=== PATIENT | male | born 1935 | race Caucasian/White ===

== ENCOUNTER 2019-06-01 12:18 | Emergency (ER) | payer OTHER ==
[2019-06-01] MEDS ORDERED: MORPHINE 4 MG/ML SYR ONE (13:33)
[2019-06-01] MEDS ORDERED: ONDANSETRON 4 MG/2 ML VIAL ONE (13:33)
--- NOTE | 2019-06-01 14:50 | RAD REPORT ---
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 No fracture is seen. Osteoporosis
--- NOTE | 2019-06-01 14:50 | RAD REPORT ---
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 No fracture is seen. Osteoporosis
[2019-06-01] MEDS ORDERED: FENTANYL CITR 100 MCG/2 ML ONE (14:59)
[2019-06-01] MEDS ORDERED: PROPOFOL 200 MG/20 ML VIAL IV ONE (14:59)
[2019-06-01] MEDS ORDERED: NA CHLORIDE 0.9% 250 ML ONE (14:59)
--- NOTE | 2019-06-01 16:26 | EDPHYS ---
Physician Documentation [facility] Name: Charlie Hart Age: 84 yrs Sex: Male : 1935 Arrival Date: 06/01/2019 Time: 12:16 Bed 2 Private MD: ED Physician Sukhjinder Negrete HPI: 06/02 11:34 This 84 yrs old Male presents to ER via EMS with complaints of Hip Injury. kdr 11:34 The patient or guardian reports decreased range of motion, deformity, an injury, pain, kdr possible dislocation. that occurred at home, sustained from Bending over and felt a pop the left lower extremity is shortened, the left leg is internally rotated, The patient is not able to ambulate. Patient is not able to bear weight. The complaints affect the left hip. Onset: The symptoms/episode began/occurred acutely, suddenly, just prior to arrival. Modifying factors: The symptoms are alleviated by nothing, remaining still, the symptoms are aggravated by any movement, extension, external rotation. Associated signs and symptoms: Loss of consciousness: the patient experienced no loss of consciousness, Pertinent positives: None. Pertinent negatives: abdominal pain, chest pain, dizziness, dysuria, fever, headache. Severity of symptoms: At their worst the symptoms were mild, moderate, just prior to arrival, in the emergency department the symptoms are unchanged. The patient has experienced similar episodes in the past, a few times. The patient has not recently seen a physician. Historical: - Allergies: 06/01 12:23 No Known Allergies; sv - Home Meds: 12:23 isosorbide mononitrate 30 mg oral Tb24 once daily [Active]; Plavix 75 mg Oral tab 1 tab sv once daily [Active]; atorvastatin 10 mg Oral tab 1 tab nightly [Active]; tramadol 50 mg Oral tab 1 tab Q12h prn [Active]; Lipitor 10 mg Oral tab 1 tab once daily [Active]; vitamin B12 [Active]; meclizine 25 mg Oral tab daily prn [Active]; - PMHx: 12:23 Hyperlipidemia; Hypertension; West Nile Virus; Chronic kidney disease; Pre-diabetes; sv osteoarthritis; Macular degeneration; CVA; CAD; GERD; Prostate cancer; - PSHx: 12:23 left hip(2013); sv - Immunization history:: Adult Immunizations up to date. - Social history:: Smoking status: Patient/guardian denies using tobacco. - Ebola Screening: : No symptoms or risks identified at this time. ROS: 06/02 11:34 Constitutional: Negative for fever, chills, and weight loss, Eyes: Negative for injury, kdr pain, redness, and discharge, Neck: Negative for injury, pain, and swelling, Cardiovascular: Negative for chest pain, palpitations, and edema, Respiratory: Negative for shortness of breath, cough, wheezing, and pleuritic chest pain, Abdomen/GI: Negative for abdominal pain, nausea, vomiting, diarrhea, and constipation, Back: Negative for injury and pain, : Negative for injury, bleeding, discharge, and swelling, Skin: Negative for injury, rash, and discoloration, Neuro: Negative for headache, weakness, numbness, tingling, and seizure activity. Psych: Negative for depression, anxiety, suicide ideation, homicidal ideation, and hallucinations, Allergy/Immunology: Negative for hives, rash, and allergies, Endocrine: Negative for neck swelling, polydipsia, polyuria, polyphagia, and marked weight changes, Hematologic/Lymphatic: Negative for swollen nodes, abnormal bleeding, and unusual bruising. MS/extremity: Positive for injury or acute deformity, decreased range of motion, of the left hip, Negative for Exam: 11:34 Constitutional: This is a well developed, well nourished patient who is awake, alert, kdr and in no acute distress. Head/Face: Normocephalic, atraumatic. Eyes: Pupils equal round and reactive to light, extra-ocular motions intact. Lids and lashes normal. Conjunctiva and sclera are non-icteric and not injected. Cornea within normal limits. Periorbital areas with no swelling, redness, or edema. Neck: Trachea midline, no thyromegaly or masses palpated, and no cervical lymphadenopathy. Supple, full range of motion without nuchal rigidity, or vertebral point tenderness. No Meningismus. Chest/axilla: Normal chest wall appearance and motion. Nontender with no deformity. No lesions are appreciated. Cardiovascular: Regular rate and rhythm with a normal S1 and S2. No gallops, murmurs, or rubs. Normal PMI, no JVD. No pulse deficits. Respiratory: Lungs have equal breath sounds bilaterally, clear to auscultation and percussion. No rales, rhonchi or wheezes noted. No increased work of breathing, no retractions or nasal flaring. Abdomen/GI: Soft, non-tender, with normal bowel sounds. No distension or tympany. No guarding or rebound. No evidence of tenderness throughout. Back: No spinal tenderness. No costovertebral tenderness. Full range of motion. Skin: Warm, dry with normal turgor. Normal color with no rashes, no lesions, and no evidence of cellulitis. Neuro: Awake and alert, GCS 15, oriented to person, place, time, and situation. Cranial nerves II-XII grossly intact. Motor strength 5/5 in all extremities. Sensory grossly intact. Cerebellar exam normal. Normal gait. Psych: Awake, alert, with orientation to person, place and time. Behavior, mood, and affect are within normal limits. 11:34 Musculoskeletal/extremity: Extremities: grossly normal except: noted in the left hip: ROM: limited active range of motion due to pain, limited passive range of motion due to pain, Let hip, Circulation is intact in all extremities. Sensation intact. Compartment Syndrome exam of affected extremity: is normal. no pain. Vital Signs: 06/01 12:19 BP 145 / 90; Pulse 87; Resp 16; Temp 99(O); Pulse Ox 97% on R/A; Weight 86.18 kg; sv Height 5 ft. 8 in. (172.72 cm); Pain 3/10; 13:01 BP 135 / 84; Pulse 88; Resp 16; Temp 99; Pulse Ox 96% ; sv 13:48 BP 140 / 67; Pulse 87; Resp 20; Pulse Ox 97% ; sv 14:30 Pain 0/10; sv 14:35 BP 163 / 88; Pulse 97; Resp 18; Pulse Ox 95% ; sv 15:00 BP 131 / 84; Pulse 94; Resp 18; Pulse Ox 97% ; sv 15:13 BP 136 / 80; Pulse 90; Resp 16; Pulse Ox 100% ; sv 15:28 BP 118 / 75; Pulse 100; Resp 19; Pulse Ox 100% on R/A; sv 16:21 BP 134 / 70; Pulse 94; Resp 18; Temp 98; Pulse Ox 98% ; sv 12:19 Body Mass Index 28.89 (86.18 kg, 172.72 cm) sv Yady Coma Score: 12:19 Eye Response: spontaneous(4). Verbal Response: oriented(5). Motor Response: obeys sv commands(6). Total: 15. 13:01 Eye Response: spontaneous(4). Verbal Response: oriented(5). Motor Response: obeys sv commands(6). Total: 15. 16:21 Eye Response: spontaneous(4). Verbal Response: oriented(5). Motor Response: obeys sv commands(6). Total: 15. Trauma Score (Adult): 12:19 Eye Response: spontaneous(1); Verbal Response: oriented(1); Motor Response: obeys sv commands(2); Systolic BP: > 89 mm Hg(4); Respiratory Rate: 10 to 29 per min(4); Yady Score: 15; Trauma Score: 12 13:01 Eye Response: spontaneous(1); Verbal Response: oriented(1); Motor Response: obeys sv commands(2); Systolic BP: > 89 mm Hg(4); Respiratory Rate: 10 to 29 per min(4); Frederick Score: 15; Trauma Score: 12 16:21 Eye Response: spontaneous(1); Verbal Response: oriented(1); Motor Response: obeys sv commands(2); Systolic BP: > 89 mm Hg(4); Respiratory Rate: 10 to 29 per min(4); Frederick Score: 15; Trauma Score: 12 Procedures: 06/02 11:34 Reduction: of the left hip, using traction, manipulation, Immobilized with Patient kdr tolerated well. Post reduction film - reveals improved alignment. MDM: 06/01 16:25 Patient medically screened. kdr 06/02 11:34 Data reviewed: vital signs, nurses notes, lab test result(s), radiologic studies. kdr Counseling: I had a detailed discussion with the patient and/or guardian regarding: the historical points, exam findings, and any diagnostic results supporting the discharge/admit diagnosis, lab results, the need for outpatient follow up, for definitive care. 06/01 13:07 Order name: Pelvis XRAY; Complete Time: 15:28 kdr 06/01 13:07 Order name: Hip Left 2 View XRAY; Complete Time: 15:28 kdr 06/01 13:47 Order name: IV Saline Lock; Complete Time: 13:47 sv 06/01 15:28 Order name: Hip Left 2 View XRAY kdr Administered Medications: 06/01 13:43 Drug: Zofran 4 mg Route: IVP; Site: right antecubital; sv 14:30 Follow up: Response: No adverse reaction sv 13:45 Drug: morphine 4 mg {Note: RASS1.} Route: IVP; Site: right antecubital; sv 14:30 Follow up: Pain 0/10 Adult; Response: No adverse reaction; Marked relief of symptoms; sv Pain is decreased; RASS: Alert and Calm (0) Disposition: 06/01/19 16:25 Discharged to Home. Impression: Unspecified dislocation of left hip. - Condition is Stable. - Discharge Instructions: Hip Dislocation, [id number]. - Prescriptions for Tylenol- Codeine #3 300-30 mg Oral Tablet - take 1 tablet by ORAL route every 6 hours As needed; 10 tablet. - Medication Reconciliation Form, Thank You Letter form. - Follow up: Private Physician; When: 2 - 3 days; Reason: If symptoms return, Further diagnostic work-up, Recheck today's complaints, Continuance of care, Re-evaluation by your physician. - Problem is new. - Symptoms are resolved. Signatures: Dispatcher [employer] EDTia Mcmillan RN RN Sukhjinder Celis MD MD kdr Corrections: (The following items were deleted from the chart) 16:52 16:25 06/01/2019 16:25 Discharged to Home. Impression: Unspecified dislocation of left sv hip. Condition is Stable. Forms are Medication Reconciliation Form, Thank You Letter, Antibiotic Education, Prescription Opioid Use. Follow up: Private Physician; When: 2 - 3 days; Reason: If symptoms return, Further diagnostic work-up, Recheck today's complaints, Continuance of care, Re-evaluation by your physician. Problem is new. Symptoms are resolved. kdr
--- NOTE | 2019-06-01 16:26 | ER ---
Nurse's Notes [facility] Name: Charlie Hart Age: 84 yrs Sex: Male : 1935 Arrival Date: 06/01/2019 Time: 12:16 Bed 2 Private MD: Diagnosis: Unspecified dislocation of left hip Presentation: 06/01 12:09 Presenting complaint: EMS states: left hip pain after stepping wrong today, left leg is sv shortened. Denies a fall. BP 150/93 HR-85 95%RA. Care prior to arrival: None. Trauma event details: Injury occurred in the [facility], Injury occurred: at home. Injury occurred: June 01, 2019. 12:09 Acuity: CLAUDINE 2 sv 12:09 Method Of Arrival: EMS: [facility] sv 12:09 Transition of care: patient was not received from another setting of care. Onset of sv symptoms was June 01, 2019. Risk Assessment: Do you want to hurt yourself or someone else? Patient reports no desire to harm self or others. Initial Sepsis Screen: Does the patient meet any 2 criteria? No. Patient's initial sepsis screen is negative. Does the patient have a suspected source of infection? No. Patient's initial sepsis screen is negative. 12:09 Mechanism of Injury: No Mechanism of Injury. sv Trauma Activation: Not Applicable Physician: ED Physician; Name: ; Notified At: ; Arrived At: Physician: General Surgeon; Name: ; Notified At: ; Arrived At: Physician: Radiology; Name: ; Notified At: ; Arrived At: Physician: Respiratory; Name: ; Notified At: ; Arrived At: Physician: Lab; Name: ; Notified At: ; Arrived At: Historical: - Allergies: 12:23 No Known Allergies; sv - Home Meds: 12:23 isosorbide mononitrate 30 mg oral Tb24 once daily [Active]; Plavix 75 mg Oral tab 1 tab sv once daily [Active]; atorvastatin 10 mg Oral tab 1 tab nightly [Active]; tramadol 50 mg Oral tab 1 tab Q12h prn [Active]; Lipitor 10 mg Oral tab 1 tab once daily [Active]; vitamin B12 [Active]; meclizine 25 mg Oral tab daily prn [Active]; - PMHx: 12:23 Hyperlipidemia; Hypertension; West Nile Virus; Chronic kidney disease; Pre-diabetes; sv osteoarthritis; Macular degeneration; CVA; CAD; GERD; Prostate cancer; - PSHx: 12:23 left hip(2013); sv - Immunization history:: Adult Immunizations up to date. - Social history:: Smoking status: Patient/guardian denies using tobacco. - Ebola Screening: : No symptoms or risks identified at this time. Screenin:10 Nutritional screening: No deficits noted. Fall Risk No fall in past 12 months (0 pts). sv Secondary diagnosis (15 points) impaired mobility, No IV (0 pts). Ambulatory Aid- None/Bed Rest/Nurse Assist (0 pts). Gait- Normal/Bed Rest/Wheelchair (0 pts) Mental Status- Oriented to own ability (0 pts). Total Mosher Fall Scale indicates No Risk (0-24 pts). 12:19 Abuse screen: Denies threats or abuse. Denies injuries from another. Tuberculosis sv screening: No symptoms or risk factors identified. Primary Survey: 12:09 NO uncontrolled hemorrhage observed. A: The patient is alert. Airway: patent, No sv supplemental oxygen in use on arrival. Oral cavity: clear. Breathing/Chest: Respiratory pattern: regular, Respiratory effort: spontaneous, unlabored, Chest inspection: symmetrical rise and fall of the chest. Circulation: Heart tones present. Pulses: palpable right radial artery, right dorsalis pedis artery, left radial artery and left dorsalis pedis artery. Skin color: pink, Skin temperature: warm, dry. Disability Alert. Exposure/Environment: All clothing and personal items were removed. Forensic evidence collection is not deemed to be indicated at this time. Items placed in patient belonging bag. There is no evidence of uncontrolled external bleeding. No obvious injuries are noted at this time. A warming method has been applied: A warm blanket has been provided to the patient. 13:01 Reassessment Airway Airway Patent Oxygen No O2 Oral cavity Clear Trachea Midline sv Breathing/Chest Respiratory pattern Regular Respiratory effort Spontaneous Unlabored Chest inspection Symmetrical Circulation Heart tones Present Pulses Palpable Color [place] Temperature Warm Dry Disability Alert. 16:52 Reassessment Airway Airway Patent Oxygen No O2 Oral cavity Clear Trachea Midline sv Breathing/Chest Respiratory pattern Regular Respiratory effort Spontaneous Unlabored Chest inspection Symmetrical Circulation Heart tones Present Pulses Palpable Color [place] Temperature Warm Dry Disability Alert. Secondary Survey: 12:09 HEENT: No deficits noted. Gastrointestinal: No deficits noted. : No deficits noted. sv No signs and/or symptoms were reported regarding the genitourinary system. Musculoskeletal: Range of motion: limited in left hip left leg appears shortened. Assessment: 13:40 Reassessment: Informed Dr Negrete, pt is requesting pain medication. Medication order sv received. 13:43 Reassessment: Patient appears in no apparent distress at this time. Patient and/or sv family updated on plan of care and expected duration. Pain level reassessed. Patient is alert, oriented x 3, equal unlabored respirations, skin warm/dry/pink. 14:30 Reassessment: Patient appears in no apparent distress at this time. Patient and/or sv family updated on plan of care and expected duration. Pain level reassessed. Patient is alert, oriented x 3, equal unlabored respirations, skin warm/dry/pink. 15:13 Reassessment: Conscious sedation started with Dr Negrete at the bedside. See conscious sv sedation flowsheet. 15:47 Reassessment: Patient appears in no apparent distress at this time. Patient and/or sv family updated on plan of care and expected duration. Pain level reassessed. Patient is alert, oriented x 3, equal unlabored respirations, skin warm/dry/pink. Pt requesting water, ok by Dr Negrete. 15:48 Reassessment: Xray at the bedside. sv Vital Signs: 12:19 BP 145 / 90; Pulse 87; Resp 16; Temp 99(O); Pulse Ox 97% on R/A; Weight 86.18 kg; sv Height 5 ft. 8 in. (172.72 cm); Pain 3/10; 13:01 BP 135 / 84; Pulse 88; Resp 16; Temp 99; Pulse Ox 96% ; sv 13:48 BP 140 / 67; Pulse 87; Resp 20; Pulse Ox 97% ; sv 14:30 Pain 0/10; sv 14:35 BP 163 / 88; Pulse 97; Resp 18; Pulse Ox 95% ; sv 15:00 BP 131 / 84; Pulse 94; Resp 18; Pulse Ox 97% ; sv 15:13 BP 136 / 80; Pulse 90; Resp 16; Pulse Ox 100% ; sv 15:28 BP 118 / 75; Pulse 100; Resp 19; Pulse Ox 100% on R/A; sv 16:21 BP 134 / 70; Pulse 94; Resp 18; Temp 98; Pulse Ox 98% ; sv 12:19 Body Mass Index 28.89 (86.18 kg, 172.72 cm) sv [place] Coma Score: 12:19 Eye Response: spontaneous(4). Verbal Response: oriented(5). Motor Response: obeys sv commands(6). Total: 15. 13:01 Eye Response: spontaneous(4). Verbal Response: oriented(5). Motor Response: obeys sv commands(6). Total: 15. 16:21 Eye Response: spontaneous(4). Verbal Response: oriented(5). Motor Response: obeys sv commands(6). Total: 15. Trauma Score (Adult): 12:19 Eye Response: spontaneous(1); Verbal Response: oriented(1); Motor Response: obeys sv commands(2); Systolic BP: > 89 mm Hg(4); Respiratory Rate: 10 to 29 per min(4); Yady Score: 15; Trauma Score: 12 13:01 Eye Response: spontaneous(1); Verbal Response: oriented(1); Motor Response: obeys sv commands(2); Systolic BP: > 89 mm Hg(4); Respiratory Rate: 10 to 29 per min(4); [place] Score: 15; Trauma Score: 12 16:21 Eye Response: spontaneous(1); Verbal Response: oriented(1); Motor Response: obeys sv commands(2); Systolic BP: > 89 mm Hg(4); Respiratory Rate: 10 to 29 per min(4); Yady Score: 15; Trauma Score: 12 ED Course: 12:10 Placed in gown. Bed in low position. Call light in reach. Side rails up X2. Pulse ox sv on. NIBP on. Door closed. Head of bed elevated. 12:15 Thermoregulation: warm blanket given to patient. sv 12:16 Patient arrived in ED. sv 12:16 Tia Gamez RN is Primary Nurse. sv 12:19 Triage completed. sv 12:20 Patient maintains SpO2 saturation greater than 95% on room air. sv 12:24 Sukhjinder Negrete MD is Attending Physician. kdr 12:24 Arm band placed on. sv 12:30 Patient has correct armband on for positive identification. sv 12:50 ED physician to see patient. sv 13:10 Awaiting for x-ray. sv 13:58 Pelvis XRAY In Process Unspecified. EDMS 13:58 Hip Left 2 View XRAY In Process Unspecified. EDMS 14:37 Consent for conscious sedation explained by staff, explained by physician, signed by patient. 15:18 Assist provider with reduction of left pathologic or non traumatic hip using sv manipulation, Set up for procedure. Performed by Sukhjinder Negrete MD Patient tolerated well. 15:56 X-ray(s) taken. sv 15:59 Hip Left 2 View XRAY In Process Unspecified. EDMS 16:00 Awaiting radiology results. sv 16:50 IV discontinued, intact, bleeding controlled, No redness/swelling at site. Pressure sv dressing applied. Administered Medications: 13:43 Drug: Zofran 4 mg Route: IVP; Site: right antecubital; sv 14:30 Follow up: Response: No adverse reaction sv 13:45 Drug: morphine 4 mg {Note: RASS1.} Route: IVP; Site: right antecubital; sv 14:30 Follow up: Pain 0/10 Adult; Response: No adverse reaction; Marked relief of symptoms; sv Pain is decreased; RASS: Alert and Calm (0) Intake: 12:19 PO: 0ml; Total: 0ml. sv 13:01 PO: 0ml; Total: 0ml. sv 15:47 PO: 200ml (Water); Total: 200ml. sv 16:21 PO: 0ml; Total: 200ml. sv Output: 12:19 Urine: 0ml; Total: 0ml. sv 13:01 Urine: 0ml; Total: 0ml. sv 16:21 Urine: 0ml; Total: 0ml. sv Outcome: 15:49 Patient's length of stay in the Emergency Department was greater than 2 hours. due to sv reduction procedurePatient's length of stay extended due to 16:25 Discharge ordered by . kdr 16:52 Patient left the ED. sv 16:52 Discharged to home via wheelchair, with family. sv 16:52 Condition: stable 16:52 Condition: improved 16:52 Discharge instructions given to patient, family, Instructed on discharge instructions, follow up and referral plans. medication usage, Demonstrated understanding of instructions, follow-up care, medications, Prescriptions given X 1. Signatures: Dispatcher [employer] EDPR Vera, Tia, RN RN sv Rittger, Sukhjinder, MD MD kdr
--- NOTE | 2019-06-01 16:52 | RAD REPORT ---
EXAM DESCRIPTION: RAD - Hip Left 2 View - 06/01/2019 3:59 pm CLINICAL HISTORY: Left hip prosthesis dislocation, reduction maneuvers COMPARISON: June 01 left hip images FINDINGS: AP and frogleg views of the left hip were obtained. Femoral component has been reduced vince k into the acetabular cup. No fracture of the [place] bone. No suspicious or unexpected finding.
[2019-06-01 17:33] VITALS: BP 134/70; TEMP 98; O2SAT 98
== END 2019-06-01 16:52 | disposition home or self-care (01) ==
LOC: ER 12:18
PROC: 0SSBXZZ Reposition Left Hip Joint, External Approach (ICD-10-PCS; principal; 2019-06-01)
DX: S73.005A Unspecified dislocation of left hip, initial encounter (principal); X50.1XXA Overexertion from prolonged static or awkward postures, initial encounter; Y93.9 Activity, unspecified; Y92.009 Unspecified place in unspecified non-institutional (private) residence as the place of occurrence of the external cause; Z79.01 Long term (current) use of anticoagulants; Z85.46 Personal history of malignant neoplasm of prostate; I10 Essential (primary) hypertension; E78.5 Hyperlipidemia, unspecified
CPT/HCPCS: 72170; 73502 ×2; 96375; 96374; 99285; 27250; J2704; J3010; J7030; J2405

== ENCOUNTER 2021-02-10 18:55 | Emergency (ER) | payer OTHER ==
--- OUTSIDE RECORDS SUMMARY | 2021-02-10 18:58 | XMS REPORT | Continuity of Care Document ---
:1935 Author Organization [facility] Address [address] [place] [address] Dr. Duran [address] [place] [id number] Care Team Providers Name Role Phone Adal Laboy Attending Clinician [phone] Problems This patient has no known problems. Allergies, Adverse Reactions, Alerts This patient has no known allergies or adverse reactions. Medications This patient has no known medications. Procedures This patient has no known procedures. Encounters Start End Encounter Admission Attending Care Care Encounter Source Date/Time Date/Time Type Type Clinicians Facility Department ID 2021-01-02 2021-01-02 Outpatient Benoit [facility] [id number] 00:00:00 00:00:00 Jamari [id number] Adal [id number] 2020-10-03 2020-10-03 Outpatient Benoit [facility] [id number] 00:00:00 00:00:00 Jamari [id number] Aiken [id number] Results This patient has no known results.
--- NOTE | 2021-02-10 23:47 | ER ---
Nurse's Notes [facility] Name: Charlie Hart Age: 85 yrs Sex: Male : 1935 Arrival Date: 02/10/2021 Time: 18:58 Bed 4 Private MD: Diagnosis: Encounter for change or removal of surgical wound dressing Presentation: 02/10 19:05 Chief complaint: Patient states: Had skin CA spot removed from R cheek area 02/06. Sinus ll1 drainage started Friday. Packing from site came out today. Noticed white drainage from R eye and its painful. Coronavirus screen: Client denies travel out of the [place] in the last 14 days. At this time, the client does not indicate any symptoms associated with coronavirus-19. Ebola Screen: Patient denies travel to an Ebola-affected area in the 21 days before illness onset. Initial Sepsis Screen: Does the patient meet any 2 criteria? No. Patient's initial sepsis screen is negative. Does the patient have a suspected source of infection? Yes: Skin breakdown/wound. Risk Assessment: Do you want to hurt yourself or someone else? Patient reports no desire to harm self or others. Onset of symptoms was February 08, 2021. 19:05 Method Of Arrival: Ambulatory ll1 19:05 Acuity: CLAUDINE 3 ll1 Historical: - Allergies: 19:08 No Known Allergies; ll1 - Home Meds: 19:08 heparin (porcine) 5,000 unit/mL injection soln 1 mL every 8 hours [Active]; ll1 - PMHx: 19:08 macular degeneration; osteoarthritis; Pre-Diabetes; Hypertension; Hyperlipidemia; ll1 Prostate Cancer; GERD; CVA; chronic kidney disease; West Nile Virus; CAD; stroke; - PSHx: 19:08 hip/shoulder replacement; Cholecystectomy; cataract repair; ll1 - Immunization history:: Client reports receiving the 2nd dose of the Covid vaccine, Flu vaccine is up to date. - Social history:: Smoking status: Patient/guardian denies using tobacco, the patient reports quitting approximately 30 years ago. Screenin:50 Abuse screen: Denies threats or abuse. Nutritional screening: No deficits noted. em Tuberculosis screening: No symptoms or risk factors identified. Fall Risk None identified. Assessment: 22:51 General: Appears in no apparent distress. comfortable, Behavior is calm, cooperative, em appropriate for age, Denies fever. Pain: Complains of pain in right cheek Pain currently is 6 out of 10 on a pain scale. Neuro: Level of Consciousness is awake, alert, obeys commands, Oriented to person, place, time, situation. Cardiovascular: Capillary refill < 3 seconds Patient's skin is warm and dry. Respiratory: Airway is patent Respiratory effort is even, unlabored, Respiratory pattern is regular, symmetrical. GI: Abdomen is flat. Derm: Skin is intact, is fragile, is thin, Skin is pink, warm \T\ dry. Musculoskeletal: Capillary refill < 3 seconds, Range of motion: intact in all extremities. Vital Signs: 19:05 BP 146 / 58; Pulse 62; Resp 17; Temp 98.1; Pulse Ox 98% ; Weight 88.45 kg; Height 5 ft. ll1 8 in. (172.72 cm); Pain 6/10; 19:05 Body Mass Index 29.65 (88.45 kg, 172.72 cm) 1 ED Course: 18:58 Patient arrived in ED. mr 19:08 Triage completed. 1 19:10 Arm band placed on. [facility] 22:49 Kin Deutsch, RN is Primary Nurse. em 22:50 Patient has correct armband on for positive identification. Bed in low position. Call em light in reach. Side rails up X2. Adult w/ patient. 22:53 Chacorta Diego MD is Attending Physician. [facility] 23:56 No provider procedures requiring assistance completed. Patient did not have IV access em during this emergency room visit. Administered Medications: No medications were administered Outcome: 23:47 Discharge ordered by . [facility] 23:56 Discharged to home ambulatory, with family. em 23:56 Condition: stable 23:56 Discharge instructions given to patient, family, Instructed on discharge instructions, follow up and referral plans. wound care, Demonstrated understanding of instructions, follow-up care, wound care. 23:57 Patient left the ED. em Signatures: Elizabeth Obrien Kin Deutsch, RN CARRILLO em Dianelys Henley RN RN [facility] Chacorta Diego MD MD [facility]
--- NOTE | 2021-02-10 23:47 | EDPHYS ---
Physician Documentation [facility] Name: Charlie Hart Age: 85 yrs Sex: Male : 1935 Arrival Date: 02/10/2021 Time: 18:58 Bed 4 Private MD: ED Physician Chacorta Diego HPI: 02/10 23:34 This 85 yrs old Male presents to ER via Ambulatory with complaints of Post mh7 Surgical Pain. 23:34 Patient presents to ED for recheck of: Biopsy. The affected area is on the right cheek. mh7 Previous treatment: The patient was initially treated 5 day(s) ago, the care was rendered at [facility], Treatment type: The patient's original treatment included dressing, packing. Progress: The patient reports no change in dressing has come off slightly. States that he had a skin biopsy and sutures placed for skin lesion on right cheek. Wound was packed with placental cells and dressing placed over area. Dressing was partially covering nostril so his daughter cut part of dressing off since then dressing has become partially dislodged. He came to have dressing evaluated and possibly replaced. Denies any eye pain or other complaints.. Historical: - Allergies: 19:08 No Known Allergies; ll1 - Home Meds: 19:08 heparin (porcine) 5,000 unit/mL injection soln 1 mL every 8 hours [Active]; ll1 - PMHx: 19:08 macular degeneration; osteoarthritis; Pre-Diabetes; Hypertension; Hyperlipidemia; ll1 Prostate Cancer; GERD; CVA; chronic kidney disease; West Nile Virus; CAD; stroke; - PSHx: 19:08 hip/shoulder replacement; Cholecystectomy; cataract repair; ll1 - Immunization history:: Client reports receiving the 2nd dose of the Covid vaccine, Flu vaccine is up to date. - Social history:: Smoking status: Patient/guardian denies using tobacco, the patient reports quitting approximately 30 years ago. ROS: 23:34 Constitutional: Negative for fever, chills, and weight loss, Eyes: Negative for injury, mh7 pain, redness, and discharge, ENT: Negative for injury, pain, and discharge, Neck: Negative for injury, pain, and swelling, Cardiovascular: Negative for chest pain, palpitations, and edema, Respiratory: Negative for shortness of breath, cough, wheezing, and pleuritic chest pain, Abdomen/GI: Negative for abdominal pain, nausea, vomiting, diarrhea, and constipation, Back: Negative for injury and pain, : Negative for injury, bleeding, discharge, and swelling, MS/Extremity: Negative for injury and deformity, Neuro: Negative for headache, weakness, numbness, tingling, and seizure, Psych: Negative for depression, anxiety, suicide ideation, homicidal ideation, and hallucinations, Allergy/Immunology: Negative for hives, rash, and allergies, Endocrine: Negative for neck swelling, polydipsia, polyuria, polyphagia, and marked weight changes, Hematologic/Lymphatic: Negative for swollen nodes, abnormal bleeding, and unusual bruising. Exam: 23:34 Constitutional: This is a well developed, well nourished patient who is awake, alert, mh7 and in no acute distress. 23:34 Eyes: Pupils equal round and reactive to light, extra-ocular motions intact. Lids and lashes normal. Conjunctiva and sclera are non-icteric and not injected. Cornea within normal limits. Periorbital areas with no swelling, redness, or edema. Neck: Trachea midline, no thyromegaly or masses palpated, and no cervical lymphadenopathy. Supple, full range of motion without nuchal rigidity, or vertebral point tenderness. No Meningismus. Chest/axilla: Normal chest wall appearance and motion. Nontender with no deformity. No lesions are appreciated. Cardiovascular: Regular rate and rhythm with a normal S1 and S2. No gallops, murmurs, or rubs. Normal PMI, no JVD. No pulse deficits. Respiratory: Lungs have equal breath sounds bilaterally, clear to auscultation and percussion. No rales, rhonchi or wheezes noted. No increased work of breathing, no retractions or nasal flaring. Abdomen/GI: Soft, non-tender, with normal bowel sounds. No distension or tympany. No guarding or rebound. No evidence of tenderness throughout. MS/ Extremity: Pulses equal, no cyanosis. Neurovascular intact. Full, normal range of motion. Neuro: Awake and alert, GCS 15, oriented to person, place, time, and situation. Cranial nerves II-XII grossly intact. Motor strength 5/5 in all extremities. Sensory grossly intact. Cerebellar exam normal. Normal gait. Psych: Awake, alert, with orientation to person, place and time. Behavior, mood, and affect are within normal limits. 23:34 Head/face: Noted is no obvious drainage from wound on right cheek. Dressing is loose inferiorly.. 23:34 Skin: Wound recheck: right cheek wound without drainage.. Vital Signs: 19:05 BP 146 / 58; Pulse 62; Resp 17; Temp 98.1; Pulse Ox 98% ; Weight 88.45 kg; Height 5 ft. ll1 8 in. (172.72 cm); Pain 6/10; 19:05 Body Mass Index 29.65 (88.45 kg, 172.72 cm) ll1 MDM: 23:34 Differential diagnosis: cellulitis, dressing dislodged, wound check. Data reviewed: [facility] vital signs, nurses notes. Counseling: I had a detailed discussion with the patient and/or guardian regarding: the historical points, exam findings, and any diagnostic results supporting the discharge/admit diagnosis, the need for outpatient follow up, a job placement officer, to return to the emergency department if symptoms worsen or persist or if there are any questions or concerns that arise at home. Response to treatment: the patient's symptoms have resolved after treatment, the patient's blood pressure is in an acceptable range, mental status has returned to baseline, the patient no longer shows bradycardia, the patient is not short of breath, the patient is not tachycardic, the patient's pain is gone, the patient's temperature has normalized. 23:47 Patient medically screened. [facility] Administered Medications: No medications were administered Disposition Summary: 02/10/21 23:47 Discharge Ordered Location: Home [facility] Problem: new [facility] Symptoms: have improved [facility] Condition: Stable 7 Diagnosis - Encounter for change or removal of surgical wound dressing [facility] Followup: [facility] - With: Private Physician - When: 1 - 2 days - Reason: Worsening of condition, Recheck today's complaints, Continuance of care, Re-evaluation by your physician Discharge Instructions: - Discharge Summary Sheet [facility] - Wound Care, Adult [facility] Forms: - Medication Reconciliation Form [facility] - Thank You Letter [facility] - Antibiotic Education [facility] - Prescription Opioid Use [facility] Signatures: Dianelys Henley RN RN ll1 Chacorta Diego MD MD [facility]
[2021-02-11 00:05] VITALS: BP 146/58; TEMP 98.1; O2SAT 98
== END 2021-02-10 23:57 | disposition home or self-care (01) ==
LOC: ER 18:55
DX: Z48.01 Encounter for change or removal of surgical wound dressing (principal)
CPT/HCPCS: 99281

== ENCOUNTER 2021-12-13 11:27 | Emergency (ER) | payer OTHER ==
--- OUTSIDE RECORDS SUMMARY | 2021-12-13 11:29 | XMS REPORT | Continuity of Care Document ---
:1935 Author Organization [facility] t Address [address] [place] [address] Dr. Duran [address] [place] [id number] Care Team Providers Name Role Phone RADHA Attending Clinician Unavailable Adal Laboy Attending Clinician [phone] MAGAN_Ada Admitting Clinician Unavailable Payers Payer Name Policy Type Policy Number Effective Date Expiration Date Екатерина small MEDICARE B-[place]: [id number] 2000 [employer] 00:00:00 [employer] (INDEMNITY) [id number] 2000 00:00:00 Problems This patient has no known problems. Allergies, Adverse Reactions, Alerts This patient has no known allergies or adverse reactions. Medications This patient has no known medications. Procedures This patient has no known procedures. Encounters Start End Encounter Admission Attending Care Care Encounter Source Date/Time Date/Time Type Type Clinicians Facility Department ID 2021-12-06 2021-12-06 Outpatient MAGAN_Ada [facility] [id number] [place] 02:18:00 02:18:00 [facility] 2021-12-06 2021-12-06 Outpatient Magan [facility] [id number] 00:00:00 00:00:00 Jamari [id number] Adal [id number] 2021-11-20 2021-11-20 Outpatient RADHA [facility] [id number] [place] 10:33:00 10:33:00 [facility] 2021-10-30 2021-10-30 Outpatient RADHA [facility] [id number] [place] 12:00:00 12:00:00 [facility] 2021-10-30 2021-10-30 Outpatient Laboy, [facility] [id number] 00:00:00 00:00:00 Jamari [id number] Adal [id number] 2021-10-15 2021-10-15 Outpatient ERICKSON_R [facility] [id number] [place] 11:27:00 11:27:00 [facility] 2021-10-15 2021-10-15 Outpatient Magan [facility] [id number] 00:00:00 00:00:00 Jamari [id number] Adal [id number] 2021-10-02 2021-10-02 Outpatient ERICKSON_R [facility] [id number] [place] 12:47:00 12:47:00 308 [facility] 2021-10-02 2021-10-02 Outpatient Magan [facility] [id number] 00:00:00 00:00:00 Jamari [id number] Adal [id number] 2021-10-02 2021-10-02 Outpatient Magan [facility] [id number] 00:00:00 00:00:00 Jamari [id number] Adal [id number] 2021-07-17 2021-07-17 Outpatient ERICKSON_R [facility] [id number] [place] 10:14:00 10:14:00 221 [facility] 2021-05-07 2021-05-07 Outpatient ERICKSON_R [facility] [id number] [place] 11:42:00 11:42:00 [id number] 2021 2021 Outpatient ERICKSON_R [facility] [id number] [place] 10:54:00 10:54:00 [id number] [facility] 2021 2021 Outpatient Magan [facility] [id number] 00:00:00 00:00:00 Jamrai [id number] Adal [id number] 2021-02-20 2021-02-20 Outpatient ERICKSON_R [facility] [id number] [place] 12:57:00 12:57:00 727 [facility] 2021-01-02 2021-01-02 Outpatient ERICKSON_R [facility] [id number] [place] 10:21:00 10:21:00 608 [facility] 2021-01-02 2021-01-02 Outpatient Laboy, [facility] [id number] 00:00:00 00:00:00 Jamari [id number] Adal [id number] 2020-10-03 2020-10-03 Outpatient ERICKSON_R [facility] [id number] [place] 09:55:00 09:55:00 309 [facility] 2020-10-03 2020-10-03 Outpatient Magan [facility] [id number] 00:00:00 00:00:00 Jamari [id number] Adal [id number] 2020-08-01 2020-08-01 Outpatient ERICKSON_R [facility] [id number] [place] 08:35:00 08:35:00 118 [facility] Results This patient has no known results.
[2021-12-13 12:06] LABS: Absolute Lymphocytes (CBC) 1.3 K/uL (0.7-4.9); Hematocrit 40.9 % (39.6-49.0); Lymphocytes % 19.4 % (15.3-44.8); MPV 7.6 fL (7.6-11.3); RBC Red Blood Cell Count 3.88 M/uL (4.33-5.43)
[2021-12-13 12:07] LABS: Protime INR 1.29
--- NOTE | 2021-12-13 12:29 | RAD REPORT ---
EXAM DESCRIPTION: RAD - Chest Single View - 12/13/2021 12:20 pm CLINICAL HISTORY: COUGH COMPARISON: Portable 09/07/2017 TECHNIQUE: AP portable chest image was obtained 12/13/2021 12:20 pm . FINDINGS: Fibrotic lung pattern matches comparison. Stranding in each lung base matches comparison i s probably scarring and/or atelectasis. Acute lung parenchymal process is not identified. Heart and v asculature are normal. No measurable pleural effusion and no pneumothorax. No acute bony abnormality seen. No acute aortic findings suspected. IMPRESSION: Chronic interstitial lung pattern similar to comparison. No acute finding identified.
[2021-12-13 12:30] LABS: Albumin 3.4 g/dL (3.4-5.0); Bilirubin Direct 0.3 mg/dL (0-0.2); Bilirubin Total 1.2 mg/dL (0.2-1.0); Magnesium 2.1 mg/dL (1.8-2.4); Potassium 4.3 mmol/L (3.5-5.1); Protein, Total 6.4 g/dL (6.4-8.2); Thyroid Stimulating Hormone 1.49 uIU/mL (0.360-3.740); Troponin High Sensitivity 9.1 pg/mL (<58.9)
--- NOTE | 2021-12-13 12:38 | ER ---
Nurse's Notes [facility] Name: Charlie Hart Age: 86 yrs Sex: Male : 1935 Arrival Date: 12/13/2021 Time: 11:33 Bed 2 Private MD: Diagnosis: Bradycardia, unspecified;Atrioventricular block, second degree;Syncope Near;Weakness Presentation: 12/13 11:38 Chief complaint: EMS states: EMS reporting that found pt shaking in car when she jh6 came out of the store. Pt states that he has three episodes of feeling like his body was "paused" and couldn't move, States that he has had no SOB or chest pain. Pt states that he was alert and remembers events. 11:38 Onset of symptoms was December 12, 2021. 6 11:42 Coronavirus screen: At this time, the client does not indicate any symptoms associated jl7 with coronavirus-19. Ebola Screen: No symptoms or risks identified at this time. Initial Sepsis Screen: Does the patient meet any 2 criteria? No. Patient's initial sepsis screen is negative. Does the patient have a suspected source of infection? No. Patient's initial sepsis screen is negative. Risk Assessment: Do you want to hurt yourself or someone else? Patient reports no desire to harm self or others. 11:42 Acuity: CLAUDINE 2 jl7 11:42 Method Of Arrival: EMS: [facility] Triage Assessment: 11:38 General: Appears in no apparent distress. comfortable, well groomed, well developed, jh6 well nourished, Behavior is calm, cooperative. 11:38 Pain: Denies pain. Neuro: No deficits noted. Cardiovascular: Capillary refill < 3 jh6 seconds Patient's skin is warm and dry. Rhythm is 3rd degree HB Chest pain is denied. Respiratory: No deficits noted. Airway is patent Trachea midline Respiratory effort is even. Historical: - Allergies: 11:43 No Known Allergies; jl7 - Home Meds: 11:43 prednisone 10 mg Oral tab [Active]; alendronate 70 mg oral tab 1 tab once wkly jl7 [Active]; aspirin 81 mg Oral cpDR [Active]; cyclobenzaprine 5 mg Oral tab 1 tab once daily [Active]; hydrochlorothiazide 12.5 mg Oral cap 1 cap once daily [Active]; losartan 100 mg oral tab 1 tab once daily [Active]; lovastatin 10 mg Oral tab [Active]; magnesium oxide 250 mg magnesium Oral tab [Active]; - PMHx: 11:43 CAD; chronic kidney disease; CVA; GERD; Hyperlipidemia; Hypertension; macular jl7 degeneration; osteoarthritis; Pre-Diabetes; Prostate Cancer; stroke; West Nile Virus; - Immunization history:: Adult Immunizations unknown. - Social history:: Smoking status: Patient denies any tobacco usage or history of. - Family history:: not pertinent, Significant other has/had. Screenin:07 Abuse screen: Denies threats or abuse. Nutritional screening: No deficits noted. 6 Tuberculosis screening: No symptoms or risk factors identified. Fall Risk No fall in past 12 months (0 pts). IV access (20 points). Gait- Weak (10 pts.). Assessment: 12:06 General: see triage note. 6 12:28 Reassessment: No changes from previously documented assessment. at bedside, no [facility] change of status and pt has no complaints at this time. 12:51 Pain: Denies pain. Cardiovascular: No deficits noted. Denies chest pain, nausea, jh6 shortness of breath. Respiratory: No deficits noted. 13:30 Reassessment: No changes from previously documented assessment. Patient and/or family [facility] updated on plan of care and expected duration. Pain level reassessed. Patient is alert, oriented x 3, equal unlabored respirations, skin warm/dry/pink. Patient denies pain at this time. 13:30 Cardiovascular: Denies chest pain. Respiratory: No deficits noted. 6 14:16 General: report called to Chhaya aLws RN. 6 14:42 Reassessment: Patient and/or family updated on plan of care and expected duration. Pain 6 level reassessed. Patient is alert, oriented x 3, equal unlabored respirations, skin warm/dry/pink. [facility] at bedside to transport pt. Pt alert, without sob, chest pain or dizziness. maintenance fluids running. Assisted to EMS stretcher without issue. Vital Signs: 11:42 BP 122 / 76; Pulse 29; Resp 15; Temp 97.6; Pulse Ox 97% ; Pain 0/10; jl7 12:06 BP 112 / 84; Pulse 28; Resp 18; Pulse Ox 100% on 2 lpm NC; Weight 86.18 kg; Height 5 [facility] ft. 8 in. (172.72 cm); Pain 0/10; 12:30 BP 142 / 52; Pulse 27; Resp 18; Pulse Ox 100% ; Pain 0/10; 6 13:30 BP 123 / 51; Pulse 29; Resp 17; Pulse Ox 100% on 2 lpm NC; Pain 0/10; 6 12:06 Body Mass Index 28.89 (86.18 kg, 172.72 cm) [facility] ED Course: 11:33 Patient arrived in ED. em1 11:36 Wally Arias MD is Attending Physician. [facility] 11:43 Triage completed. [facility] 11:43 Arm band placed on right wrist. [facility] 11:46 Lindsay Johnson, RN is Primary Nurse. [facility] 11:47 EKG completed in triage. Results shown to . [facility] 12:07 Initial lab(s) drawn, by fl, sent to lab. EKG done, by ED staff, reviewed by Wally blancas Hugo CRUZ COVID swab sent to lab. X-ray(s) taken. 12:08 Placed in gown. Bed in low position. Call light in reach. Side rails up X2. Client [facility] placed on continuous cardiac and pulse oximetry monitoring. NIBP monitoring applied. monitoring coordinator on. 12:08 Inserted saline lock: 20 gauge in left wrist, using aseptic technique. Maintain EMS IV. [facility] Dressing intact. Good blood return noted. Site clean \\T\\ dry. Gauge \\T\\ site: 20g rt ac. 12:22 XRAY Chest (1 view) In Process Unspecified. EDMS Administered Medications: 12:40 Drug: NS 0.9% 1000 ml Route: IV; Rate: 125 ml/hr; Site: left antecubital; [facility] Outcome: 12:38 ER care complete, transfer ordered by . oral 14:45 Transferred by ground EMS to other acute care facility: [facility]. [facility] 14:45 Condition: stable 14:45 Instructed on the need for transfer. 15:09 Patient left the ED. [facility] Signatures: Dispatcher [employer] EDMS Wally Arias MD MD cha Martinez, Eric em1 Fabien Bhardwaj RN RN jl7 Hastedt, Jennifer, RN RN [facility] Corrections: (The following items were deleted from the chart) 12:52 12:28 Reassessment: No changes from previously documented assessment. at bedside, jh6 no change of status and pt has no complaints at this time jh6
--- NOTE | 2021-12-13 12:39 | EDPHYS ---
Physician Documentation [facility] Name: Charlie Hart Age: 86 yrs Sex: Male : 1935 Arrival Date: 12/13/2021 Time: 11:33 Bed 2 Private MD: ED Physician Wally Arias HPI: 12/13 12:21 This 86 yrs old Male presents to ER via EMS with complaints of syncope and oral heart block. 12:21 This 86 yrs old Male presents to ER via EMS with complaints of syncope and oral heart block. 12:21 The patient presents with a history of irregular heart beat. Context: The symptoms oral occur at rest. Onset: The symptoms/episode began/occurred last night. Duration: The patient or guardian reports multiple episodes, that wax and wane. Modifying factors: The symptoms are aggravated by. weakness, low heart rate. The patient has experienced near-syncope. Associated signs and symptoms: Pertinent positives:. Historical: - Allergies: 11:43 No Known Allergies; jl7 - Home Meds: 11:43 prednisone 10 mg Oral tab [Active]; alendronate 70 mg oral tab 1 tab once wkly jl7 [Active]; aspirin 81 mg Oral cpDR [Active]; cyclobenzaprine 5 mg Oral tab 1 tab once daily [Active]; hydrochlorothiazide 12.5 mg Oral cap 1 cap once daily [Active]; losartan 100 mg oral tab 1 tab once daily [Active]; lovastatin 10 mg Oral tab [Active]; magnesium oxide 250 mg magnesium Oral tab [Active]; - PMHx: 11:43 CAD; chronic kidney disease; CVA; GERD; Hyperlipidemia; Hypertension; macular jl7 degeneration; osteoarthritis; Pre-Diabetes; Prostate Cancer; stroke; West Nile Virus; - Immunization history:: Adult Immunizations unknown. - Social history:: Smoking status: Patient denies any tobacco usage or history of. - Family history:: not pertinent, Significant other has/had. ROS: 12:21 Constitutional: Negative for fever, chills, and weight loss, Eyes: Negative for injury, oral pain, redness, and discharge, ENT: Negative for injury, pain, and discharge, Neck: Negative for injury, pain, and swelling, Respiratory: Negative for shortness of breath, cough, wheezing, and pleuritic chest pain, Abdomen/GI: Negative for abdominal pain, nausea, vomiting, diarrhea, and constipation, Back: Negative for injury and pain, : Negative for injury, bleeding, discharge, and swelling, MS/Extremity: Negative for injury and deformity, Skin: Negative for injury, rash, and discoloration, Psych: Negative for depression, anxiety, suicide ideation, homicidal ideation, and hallucinations, Allergy/Immunology: Negative for hives, rash, and allergies, Endocrine: Negative for neck swelling, polydipsia, polyuria, polyphagia, and marked weight changes, Hematologic/Lymphatic: Negative for swollen nodes, abnormal bleeding, and unusual bruising. 12:21 Cardiovascular: Positive for palpitations. Exam: 12:21 Constitutional: This is a well developed, well nourished patient who is awake, alert, oral and in no acute distress. Head/Face: Normocephalic, atraumatic. Eyes: Pupils equal round and reactive to light, extra-ocular motions intact. Lids and lashes normal. Conjunctiva and sclera are non-icteric and not injected. Cornea within normal limits. Periorbital areas with no swelling, redness, or edema. ENT: Nares patent. No nasal discharge, no septal abnormalities noted. Tympanic membranes are normal and external auditory canals are clear. Oropharynx with no redness, swelling, or masses, exudates, or evidence of obstruction, uvula midline. Mucous membranes moist. Neck: Trachea midline, no thyromegaly or masses palpated, and no cervical lymphadenopathy. Supple, full range of motion without nuchal rigidity, or vertebral point tenderness. No Meningismus. Chest/axilla: Normal chest wall appearance and motion. Nontender with no deformity. No lesions are appreciated. Respiratory: Lungs have equal breath sounds bilaterally, clear to auscultation and percussion. No rales, rhonchi or wheezes noted. No increased work of breathing, no retractions or nasal flaring. Abdomen/GI: Soft, non-tender, with normal bowel sounds. No distension or tympany. No guarding or rebound. No evidence of tenderness throughout. Back: No spinal tenderness. No costovertebral tenderness. Full range of motion. Male : Normal genitalia with no discharge or lesions. Skin: Warm, dry with normal turgor. Normal color with no rashes, no lesions, and no evidence of cellulitis. MS/ Extremity: Pulses equal, no cyanosis. Neurovascular intact. Full, normal range of motion. Neuro: Awake and alert, GCS 15, oriented to person, place, time, and situation. Cranial nerves II-XII grossly intact. Motor strength 5/5 in all extremities. Sensory grossly intact. Cerebellar exam normal. Normal gait. Psych: Awake, alert, with orientation to person, place and time. Behavior, mood, and affect are within normal limits. 12:21 Cardiovascular: Rate: bradycardic, Rhythm: irregularly irregular, Pulses: Pulses are 4+ in bilateral radial, brachial, femoral, popliteal, posterior tibial and and dorsalis pedis arteries.. Heart sounds: normal, Edema: 2+ edema to level of left midcalf and right midcalf, JVD: is not appreciated. 12:21 ECG was reviewed by the Attending Physician. Vital Signs: 11:42 BP 122 / 76; Pulse 29; Resp 15; Temp 97.6; Pulse Ox 97% ; Pain 0/10; 7 12:06 BP 112 / 84; Pulse 28; Resp 18; Pulse Ox 100% on 2 lpm NC; Weight 86.18 kg; Height 5 6 ft. 8 in. (172.72 cm); Pain 0/10; 12:30 BP 142 / 52; Pulse 27; Resp 18; Pulse Ox 100% ; Pain 0/10; 6 13:30 BP 123 / 51; Pulse 29; Resp 17; Pulse Ox 100% on 2 lpm NC; Pain 0/10; 6 12:06 Body Mass Index 28.89 (86.18 kg, 172.72 cm) 6 MDM: 11:37 Patient medically screened. oral 12:33 Differential diagnosis: arrythmia, dehydration, stress disorder. Differential Diagnosis oral altered mental status. Differential Diagnosis: cardiac arrhythmia, cerebrovascular accident, idiopathic syncope, pseudo seizure, vasovagal episode. Data reviewed: vital signs, nurses notes, lab test result(s), EKG, radiologic studies, CT scan, plain films. 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 Test interpretation: by ED physician or midlevel provider: ECG, plain radiologic studies. Counseling: I had a detailed discussion with the patient and/or guardian regarding: the historical points, exam findings, and any diagnostic results supporting the discharge/admit diagnosis, lab results, radiology results, the need to transfer to another facility, for higher level of care, [facility] does not immediately have the required specialist. 12/13 11:49 Order name: Basic Metabolic Panel; Complete Time: 13:12 [facility] 12/13 11:49 Order name: CBC with Diff; Complete Time: 12:20 [facility] 12/13 11:49 Order name: LFT's; Complete Time: 13:12 [facility] 12/13 11:49 Order name: Magnesium; Complete Time: 13:12 [facility] 12/13 11:49 Order name: NT PRO-BNP; Complete Time: 13:12 [facility] 12/13 11:49 Order name: PT-INR; Complete Time: 12:20 [facility] 12/13 11:49 Order name: Troponin HS; Complete Time: 13:12 [facility] 12/13 11:49 Order name: XRAY Chest (1 view); Complete Time: 13:12 [facility] 12/13 11:49 Order name: EKG; Complete Time: 11:50 [facility] 12/13 11:49 Order name: Cardiac monitoring; Complete Time: 12:01 [facility] 12/13 11:49 Order name: EKG - Nurse/Tech; Complete Time: 12:01 [facility] 12/13 11:49 Order name: TSH; Complete Time: 13:12 [facility] 12/13 11:49 Order name: SARS-COV-2 RT PCR (Document "Date of Onset" if Symptomatic) [facility] 12/13 11:49 Order name: IV Saline Lock; Complete Time: 12:01 [facility] 12/13 11:49 Order name: Labs collected and sent; Complete Time: 12:01 [facility] 12/13 11:49 Order name: O2 Per Protocol; Complete Time: 12:02 [facility] 12/13 11:49 Order name: O2 Sat Monitoring; Complete Time: 12:01 [facility] EC:21 Rate is 59 beats/min. Rhythm is irregularly irregular. QRS [place] is Normal. QRS interval oral is normal. QT interval is normal. No Q waves. T waves are Normal. Clinical impression: 2nd degree heart block. Interpreted by me. Reviewed by me. Administered Medications: 12:40 Drug: NS 0.9% 1000 ml Route: IV; Rate: 125 ml/hr; Site: left antecubital; jh6 Disposition Summary: 12/13/21 12:38 Transfer Ordered Transfer Location: Other Acute Care Facility oral Reason: Higher level of care oral Condition: Fair oral Problem: new oral Symptoms: have improved oral Accepting Physician: dr melgar(12/13/21 15:09) jh6 Diagnosis - Bradycardia, unspecified oral - Atrioventricular block, second degree oral - Syncope Near oral - Weakness oral Discharge Instructions: - Discharge Summary Sheet oral - Bradycardia, Adult oral - Syncope oral - Syncope, [id number] oral - Second-Degree Atrioventricular Block oral Forms: - Medication Reconciliation Form oral - SBAR form oral Signatures: Dispatcher [employer] EDWally Ohara MD MD cha Leal, Jahala RN RN jl7 Lindsay Johnson RN RN jh6 Corrections: (The following items were deleted from the chart) 15:09 12:38 dr talia mixon jh6
[2021-12-13] MEDS ORDERED: NA CHLORIDE 0.9% 1,000 ML ONE (12:51)
[2021-12-13 15:49] VITALS: TEMP 97.6
[2021-12-13 15:51] VITALS: O2SAT 100
[2021-12-13 15:54] VITALS: BP 123/51
--- NOTE | 2021-12-17 11:32 | EKG ---
Test Date: 2021-12-13 Test Time: 11:34:21 Sciences Dean: MIKE MEASUREMENT RESULTS: Intervals: Rate: 29 NV: 256 QRSD: 122 QT: 548 QTc: 380 [place]: P: 75 NV: 256 QRS: 11 T: 46 INTERPRETIVE STATEMENTS: Marked sinus bradycardia with 1st degree AV block Right bundle branch block Abnormal ECG Compared to ECG 09/07/2017 18:21:11 First degree AV block now present Right bundle-branch block now present Sinus rhythm no longer present Electronically Signed On 12-17-21 11:24:14 CDT by Thomas Vo
== END 2021-12-13 15:09 ==
LOC: ER 11:27
DX: I44.1 Atrioventricular block, second degree (principal); R55 Syncope and collapse; R53.1 Weakness; I12.9 Hypertensive chronic kidney disease with stage 1 through stage 4 chronic kidney disease, or unspecified chronic kidney disease; N18.9 Chronic kidney disease, unspecified; Z20.822 Contact with and (suspected) exposure to COVID-19; Z79.82 Long term (current) use of aspirin; Z86.73 Personal history of transient ischemic attack (TIA), and cerebral infarction without residual deficits; Z85.038 Personal history of other malignant neoplasm of large intestine
CPT/HCPCS: 93005; 85025; 80048; 36415; 83735; 85610; 80076; 84443; 84484; 83880; 71045; 99285; U0003; J7030

== ENCOUNTER 2023-06-02 15:23 | Emergency (ER) | payer OTHER ==
--- OUTSIDE RECORDS SUMMARY | 2023-06-02 15:41 | XMS REPORT | Continuity of Care Document ---
:[address] [facility] t Address [address] [place] [id number] Care Team Providers Name Role Phone Jamari Laboy Primary Care Physician [phone] RADHA Attending Clinician Unavailable Fernando Harris MD Attending Clinician Jamari Laboy Attending Clinician [phone] Alvaro James Attending Clinician Unavailable RADHA Admitting Clinician Unavailable Alvaro James Admitting Clinician Unavailable Payers Payer Name Policy Type Policy Number Effective Date Expiration Date Екатерина small [employer]ET[employer] MEDICAL [id number] 2015 00:00:00 AETNA (PPO) [id number] 2022 00:00:00 AETNA (INDEMNITY) [id number] 2000 2022 00:00:00 00:00:00 MEDICARE B-TX: [id number] [employer] 00:00:00 Problems Condition Condition Condition Status Onset Resolution Last Treating Co mments Source Name Details Category Date Date Treatment Clinician Date Macrocytic Macrocytic Problem Active [facility] anemia Anemia 1-03 [facility] 00:[facility]: ty [facility] Chronic Chronic Problem Active 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 Hyperchole Hyperchole Problem Active [facility] sterolemia sterolemia 1-23 [facility] 00:00: ty 00 [facility] Coronary Coronary Problem Active [facility] arterioscl Arterioscl 1-23 [facility] erosis erosis 00:00: ty 00 [facility] Arthritis Arthritis Problem Active [facility] 1-23 Communi 00:00: ty 00 [facility] Fatigue Fatigue Problem Active [place] 1-23 Communi 00:00: ty 00 [facility] History of History of Problem Active [facility] meningitis Meningitis 1-23 [facility] 00:00: ty 00 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 Allergies, Adverse Reactions, Alerts Allergy Allergy Status Severity Reaction(s) Onset Inactive Treating Comm ents Source Name Type Date Date Clinician No Known DA Active U [facility]ie [facility]19 [facility] 00:00: [address] No Known DA Active U 2008-07 [facility] Drug 1-20 [place] Intolera 00:00: [address] No Known DA Active U [facility] Contrast 6-21 [place] Allergie 00:00: [address] No Known DA Active U [facility] Food 01-15 [place] Allergie 00:00: [address] No Known DA Active U [facility] Other 01-15 [place] Allergie 00:00: [address] Social History Social Habit Start Date Stop Date Quantity Comments Source Exposure to 2022 2022-04-22 Not sure [facility] SARS-CoV-2 (event) 00:00:00 08:33:00 Tobacco use and 2022-04-22 2022-04-22 Smokeless tobacco [facility] exposure 00:00:00 00:00:00 non-user Alcohol intake 2022-04-22 2022-04-22 [facility] 00:00:00 00:00:00 non-drinker (finding) Sex Ass[birth year] At [birth year] [facility] 00:00:00 00:00:00 Smoking Status Start Date Stop Date Source Former Smoker [facility] Never smoked tobacco [facility] Medications Ordered Filled Start Stop Current Ordering Indication Dosage Frequency Signature Comments Components Source Medication Medication Date Date Medication? Clinician (SIG) Name Name atorvastati atorvastati No atorvastat [place] n 10 mg n 10 mg in 10 mg Commu ni tablet TAKE tablet TAKE tablet ty 1 TABLET BY 1 TABLET BY TAKE 1 Hospita MOUTH AT MOUTH AT TABLET BY l BEDTIME BEDTIME MOUTH AT Clini cs BEDTIME cephalexin cephalexin No cephalexin [place] 500 mg 500 mg 500 mg [facility] capsule capsule capsule ty TAKE 1 TAKE 1 TAKE 1 Hospita CAPSULE BY CAPSULE BY CAPSULE BY l MOUTH TWICE MOUTH TWICE MOUTH Clinics DAILY WITH DAILY WITH TWICE FOOD FOR 5 FOOD FOR 5 DAILY WITH DAYS DAYS FOOD FOR 5 DAYS clopidogrel clopidogrel No clopidogre [place] 75 mg 75 mg l 75 mg Communi tablet TAKE tablet TAKE tablet ty 1 TABLET BY 1 TABLET BY TAKE 1 Hospita MOUTH DAILY MOUTH DAILY TABLET BY l MOUTH Clinics DAILY isosorbide isosorbide No isosorbide [place] mononitrate mononitrate mononitrat Communi ER 30 mg ER 30 mg e ER 30 mg t y tablet,exte tablet,exte tablet,ext Hospita nded nded ended l release 24 release 24 release 24 Clinics hr TAKE 1 hr TAKE 1 hr TAKE 1 TABLET BY TABLET BY TABLET BY MOUTH EVERY MOUTH EVERY MOUTH DAY DAY EVERY DAY metoprolol metoprolol No metoprolol [place] succinate succinate succinate Communi ER 25 mg ER 25 mg ER 25 mg ty tablet,exte tablet,exte tablet,ext Hospita nded nded ended l release 24 release 24 release 24 Clinics hr TAKE 1 hr TAKE 1 hr TAKE 1 TABLET BY TABLET BY TABLET BY MOUTH EVERY MOUTH EVERY MOUTH DAY DAY EVERY DAY tramadol 50 tramadol 50 No tramadol [place] mg tablet mg tablet 50 mg Comm uni TAKE 1 TAKE 1 tablet ty TABLET BY TABLET BY TAKE 1 Hos rita MOUTH EVERY MOUTH EVERY TABLET BY l DAY DAY MOUTH Clinics NEEDED NEEDED EVERY DAY NEEDED atorvastati atorvastati No atorvastat [place] n 10 mg n 10 mg in 10 mg Commu ni tablet TAKE tablet TAKE tablet ty 1 TABLET BY 1 TABLET BY TAKE 1 Hospita MOUTH AT MOUTH AT TABLET BY l BEDTIME BEDTIME MOUTH AT Clini cs BEDTIME clopidogrel clopidogrel No clopidogre [place] 75 mg 75 mg l 75 mg Communi tablet TAKE tablet TAKE tablet ty 1 TABLET BY 1 TABLET BY TAKE 1 Hospita MOUTH DAILY MOUTH DAILY TABLET BY l MOUTH Clinics DAILY isosorbide isosorbide No isosorbide [place] mononitrate mononitrate mononitrat Communi ER 30 mg ER 30 mg e ER 30 mg t y tablet,exte tablet,exte tablet,ext Hospita nded nded ended l release 24 release 24 release 24 Clinics hr TAKE 1 hr TAKE 1 hr TAKE 1 TABLET BY TABLET BY TABLET BY MOUTH EVERY MOUTH EVERY MOUTH DAY DAY EVERY DAY Low Dose Low Dose No 1 Q1D Low Dose [facility] Aspirin 81 Aspirin 81 Aspirin 81 Communi mg mg mg ty tablet,emily tablet,emily tablet,del Hospita yed release yed release ayed l Take 1 Take 1 release Clinics tablet tablet Take 1 every day every day tablet by oral by oral every day route. route. by oral route. metoprolol metoprolol No metoprolol [place] succinate succinate succinate Communi ER 25 mg ER 25 mg ER 25 mg ty tablet,exte tablet,exte tablet,ext Hospita nded nded ended l release 24 release 24 release 24 Clinics hr TAKE 1 hr TAKE 1 hr TAKE 1 TABLET BY TABLET BY TABLET BY MOUTH EVERY MOUTH EVERY MOUTH DAY DAY EVERY DAY tramadol 50 tramadol 50 No tramadol [place] mg tablet mg tablet 50 mg Comm uni TAKE 1 TAKE 1 tablet ty TABLET BY TABLET BY TAKE 1 Hos rita MOUTH DAILY MOUTH DAILY TABLET BY l NEEDED NEEDED MOUTH Clin ics FOR PAIN FOR PAIN DAILY NEEDED FOR PAIN atorvastati atorvastati No atorvastat [place] n 10 mg n 10 mg in 10 mg Commu ni tablet TAKE tablet TAKE tablet ty 1 TABLET BY 1 TABLET BY TAKE 1 Hospita MOUTH AT MOUTH AT TABLET BY l BEDTIME BEDTIME MOUTH AT Clini cs BEDTIME clopidogrel clopidogrel No clopidogre [place] 75 mg 75 mg l 75 mg Communi tablet TAKE tablet TAKE tablet ty 1 TABLET BY 1 TABLET BY TAKE 1 Hospita MOUTH DAILY MOUTH DAILY TABLET BY l MOUTH Clinics DAILY isosorbide isosorbide No isosorbide [place] mononitrate mononitrate mononitrat Commun[facility] ER 30 mg ER 30 mg e ER 30 mg t y tablet,exte tablet,exte tablet,ext Hospita nded nded ended l release 24 release 24 release 24 Clinics hr TAKE 1 hr TAKE 1 hr TAKE 1 TABLET BY TABLET BY TABLET BY MOUTH EVERY MOUTH EVERY MOUTH DAY DAY EVERY DAY Low Dose Low Dose No 1 Q1D Low Dose [facility] Aspirin 81 Aspirin 81 Aspirin 81 Communi mg mg mg ty tablet,emily tablet,emily tablet,del Hospita yed release yed release ayed l Take 1 Take 1 release Clinics tablet tablet Take 1 every day every day tablet by oral by oral every day route. route. by oral route. metoprolol metoprolol No metoprolol [place] succinate succinate succinate Communi ER 25 mg ER 25 mg ER 25 mg ty tablet,exte tablet,exte tablet,ext Hospita nded nded ended l release 24 release 24 release 24 Clinics hr TAKE 1 hr TAKE 1 hr TAKE 1 TABLET BY TABLET BY TABLET BY MOUTH EVERY MOUTH EVERY MOUTH DAY DAY EVERY DAY tramadol 50 tramadol 50 No tramadol [place] mg tablet mg tablet 50 mg Comm uni TAKE 1 TAKE 1 tablet ty TABLET BY TABLET BY TAKE 1 Hos rita MOUTH DAILY MOUTH DAILY TABLET BY l NEEDED NEEDED MOUTH Clin ics FOR PAIN FOR PAIN DAILY NEEDED FOR PAIN atorvastati atorvastati No atorvastat [place] n 10 mg n 10 mg in 10 mg Commu ni tablet TAKE tablet TAKE tablet ty 1 TABLET BY 1 TABLET BY TAKE 1 Hospita MOUTH AT MOUTH AT TABLET BY l BEDTIME BEDTIME MOUTH AT Clini BEDTIME clopidogrel clopidogrel No clopidogre [place] 75 mg 75 mg l 75 mg Communi tablet TAKE tablet TAKE tablet ty 1 TABLET BY 1 TABLET BY TAKE 1 Hospita MOUTH DAILY MOUTH DAILY TABLET BY l MOUTH Clinics DAILY isosorbide isosorbide No isosorbide [place] mononitrate mononitrate mononitrat [facility] ER 30 mg ER 30 mg e ER 30 mg t y tablet,exte tablet,exte tablet,ext Hospita nded nded ended l release 24 release 24 release 24 Clinics hr TAKE 1 hr TAKE 1 hr TAKE 1 TABLET BY TABLET BY TABLET BY MOUTH EVERY MOUTH EVERY MOUTH DAY DAY EVERY DAY Low Dose Low Dose No 1 Q1D Low Dose [facility] Aspirin 81 Aspirin 81 Aspirin 81 Communi mg mg mg ty tablet,emily tablet,emily tablet,del Hospita yed release yed release ayed l Take 1 Take 1 release Clinics tablet tablet Take 1 every day every day tablet by oral by oral every day route. route. by oral route. metoprolol metoprolol No metoprolol [place] succinate succinate succinate Communi ER 25 mg ER 25 mg ER 25 mg ty tablet,exte tablet,exte tablet,ext Hospita nded nded ended l release 24 release 24 release 24 Clinics hr TAKE 1 hr TAKE 1 hr TAKE 1 TABLET BY TABLET BY TABLET BY MOUTH EVERY MOUTH EVERY MOUTH DAY DAY EVERY DAY tramadol 50 tramadol 50 No tramadol [place] mg tablet mg tablet 50 mg Comm uni TAKE 1 TAKE 1 tablet ty TABLET BY TABLET BY TAKE 1 Hos rita MOUTH TWICE MOUTH TWICE TABLET BY l DAILY DAILY MOUTH Clinic s NEEDED FOR NEEDED FOR TWICE PAIN PAIN DAILY NEEDED FOR PAIN atorvastati atorvastati No atorvastat [place] n 10 mg n 10 mg in 10 mg Commu ni tablet TAKE tablet TAKE tablet ty 1 TABLET BY 1 TABLET BY TAKE 1 Hospita MOUTH AT MOUTH AT TABLET BY l [facility] clopidogrel No clopidogre [place] 75 mg 75 mg l 75 mg Communi tablet TAKE tablet TAKE tablet ty 1 TABLET BY 1 TABLET BY TAKE 1 Hospita MOUTH DAILY MOUTH DAILY TABLET BY l MOUTH Clinics DAILY isosorbide isosorbide No isosorbide [place] mononitrate mononitrate mononitrat [facility] ER 30 mg ER 30 mg e ER 30 mg t y tablet,exte tablet,exte tablet,ext Hospita nded nded ended l release 24 release 24 release 24 Clinics hr TAKE 1 hr TAKE 1 hr TAKE 1 TABLET BY TABLET BY TABLET BY MOUTH EVERY MOUTH EVERY MOUTH DAY DAY EVERY DAY Low Dose Low Dose No 1 Q1D Low Dose [facility] Aspirin 81 Aspirin 81 Aspirin 81 Communi mg mg mg ty tablet,emily tablet,emily tablet,del Hospita yed release yed release ayed l Take 1 Take 1 release Clinics tablet tablet Take 1 every day every day tablet by oral by oral every day route. route. by oral route. metoprolol metoprolol No metoprolol [place] succinate succinate succinate Communi ER 25 mg ER 25 mg ER 25 mg ty tablet,exte tablet,exte tablet,ext Hospita nded nded ended l release 24 release 24 release 24 Clinics hr TAKE 1 hr TAKE 1 hr TAKE 1 TABLET BY TABLET BY TABLET BY MOUTH EVERY MOUTH EVERY MOUTH DAY DAY EVERY DAY atorvastati atorvastati No atorvastat [place] n 10 mg n 10 mg in 10 mg Commu ni tablet TAKE tablet TAKE tablet ty 1 TABLET BY 1 TABLET BY TAKE 1 Hospita MOUTH AT MOUTH AT TABLET BY l BEDTIME BEDTIME MOUTH AT Clini cs BEDTIME clopidogrel clopidogrel No clopidogre [place] 75 mg 75 mg l 75 mg Communi tablet TAKE tablet TAKE tablet ty 1 TABLET BY 1 TABLET BY TAKE 1 Hospita MOUTH DAILY MOUTH DAILY TABLET BY l MOUTH Clinics DAILY isosorbide isosorbide No isosorbide [place] mononitrate mononitrate mononitrat [facility] ER 30 mg ER 30 mg e ER 30 mg t y tablet,exte tablet,exte tablet,ext Hospita nded nded ended l release 24 release 24 release 24 Clinics hr TAKE 1 hr TAKE 1 hr TAKE 1 TABLET BY TABLET BY TABLET BY MOUTH EVERY MOUTH EVERY MOUTH DAY DAY EVERY DAY Low Dose Low Dose No 1 Q1D Low Dose [facility] Aspirin 81 Aspirin 81 Aspirin 81 Communi mg mg mg ty tablet,emily tablet,emily tablet,del Hospita yed release yed release ayed l Take 1 Take 1 release Clinics tablet tablet Take 1 every day every day tablet by oral by oral every day route. route. by oral route. metoprolol metoprolol No metoprolol [place] succinate succinate succinate Communi ER 25 mg ER 25 mg ER 25 mg ty tablet,exte tablet,exte tablet,ext Hospita nded nded ended l release 24 release 24 release 24 Clinics hr TAKE 1 hr TAKE 1 hr TAKE 1 TABLET BY TABLET BY TABLET BY MOUTH EVERY MOUTH EVERY MOUTH DAY DAY EVERY DAY tramadol 50 tramadol 50 No tramadol [place] mg tablet mg tablet 50 mg Comm uni TAKE 1 TAKE 1 tablet ty TABLET BY TABLET BY TAKE 1 Hos rita MOUTH TWICE MOUTH TWICE TABLET BY l DAILY DAILY MOUTH Clinic s NEEDED FOR NEEDED FOR TWICE PAIN PAIN DAILY NEEDED FOR PAIN atorvastati atorvastati No atorvastat [place] n 10 mg n 10 mg in 10 mg Commu ni tablet TAKE tablet TAKE tablet ty 1 TABLET BY 1 TABLET BY TAKE 1 Hospita MOUTH AT MOUTH AT TABLET BY l BEDTIME BEDTIME MOUTH AT Clini cs BEDTIME clopidogrel clopidogrel No clopidogre [place] 75 mg 75 mg l 75 mg Communi tablet TAKE tablet TAKE tablet ty 1 TABLET BY 1 TABLET BY TAKE 1 Hospita MOUTH DAILY MOUTH DAILY TABLET BY l MOUTH Clinics DAILY isosorbide isosorbide No isosorbide [place] mononitrate mononitrate mononitrat [facility] ER 30 mg ER 30 mg e ER 30 mg t y tablet,exte tablet,exte tablet,ext Hospita nded nded ended l release 24 release 24 release 24 Clinics hr TAKE 1 hr TAKE 1 hr TAKE 1 TABLET BY TABLET BY TABLET BY MOUTH EVERY MOUTH EVERY MOUTH DAY DAY EVERY DAY Low Dose Low Dose No 1 Q1D Low Dose [facility] Aspirin 81 Aspirin 81 Aspirin 81 Communi mg mg mg ty tablet,emily tablet,emily tablet,del Hospita yed release yed release ayed l Take 1 Take 1 release Clinics tablet tablet Take 1 every day every day tablet by oral by oral every day route. route. by oral route. metoprolol metoprolol No metoprolol [place] succinate succinate succinate Communi ER 25 mg ER 25 mg ER 25 mg ty tablet,exte tablet,exte tablet,ext Hospita nded nded ended l release 24 release 24 release 24 Clinics hr TAKE 1 hr TAKE 1 hr TAKE 1 TABLET BY TABLET BY TABLET BY MOUTH EVERY MOUTH EVERY MOUTH DAY DAY EVERY DAY tramadol 50 tramadol 50 No tramadol [place] mg tablet mg tablet 50 mg Comm uni TAKE 1 TAKE 1 tablet ty TABLET BY TABLET BY TAKE 1 Hos rita MOUTH TWICE MOUTH TWICE TABLET BY l DAILY DAILY MOUTH Clinic s NEEDED FOR NEEDED FOR TWICE PAIN PAIN DAILY NEEDED FOR PAIN atorvastati atorvastati No atorvastat [place] n 10 mg n 10 mg in 10 mg Commu ni tablet TAKE tablet TAKE tablet ty 1 TABLET BY 1 TABLET BY TAKE 1 Hospita MOUTH AT MOUTH AT TABLET BY l BEDTIME BEDTIME MOUTH AT Clini cs BEDTIME clopidogrel clopidogrel No clopidogre [place] 75 mg 75 mg l 75 mg Communi tablet TAKE tablet TAKE tablet ty 1 TABLET BY 1 TABLET BY TAKE 1 Hospita MOUTH DAILY MOUTH DAILY TABLET BY l MOUTH Clinics DAILY hydrocortis hydrocortis No hydrocorti [place] one one sone Communi valerate valerate valerate ty 0.2 % 0.2 % 0.2 % Hospita topical topical topical l cream APPLY cream APPLY cream Clinics A THIN A THIN APPLY A LAYER LAYER THIN LAYER TOPICALLY TOPICALLY TOPICALLY TO THE TO THE TO THE AFFECTED AFFECTED AFFECTED AREA ON THE AREA ON THE AREA ON GROIN GROIN THE GROIN NEEDED FOR NEEDED FOR NEEDED ITCHING FOR ITCHING FOR FOR 2 WEEKS PER 2 WEEKS PER ITCHING MONTH MONTH FOR 2 WEEKS PER MONTH isosorbide isosorbide No isosorbide [place] mononitrate mononitrate mononitrat [facility] ER 30 mg ER 30 mg e ER 30 mg t y tablet,exte tablet,exte tablet,ext Hospita nded nded ended l release 24 release 24 release 24 Clinics hr TAKE 1 hr TAKE 1 hr TAKE 1 TABLET BY TABLET BY TABLET BY MOUTH EVERY MOUTH EVERY MOUTH DAY DAY EVERY DAY Low Dose Low Dose No 1 Q2D Low Dose [facility] Aspirin 81 Aspirin 81 Aspirin 81 Communi mg mg mg ty tablet,emily tablet,emily tablet,del Hospita yed release yed release ayed l Take 1 Take 1 release Clinics tablet tablet Take 1 every other every other tablet day by oral day by oral every route. route. other day by oral route. metoprolol metoprolol No metoprolol [place] succinate succinate succinate Communi ER 25 mg ER 25 mg ER 25 mg ty tablet,exte tablet,exte tablet,ext Hospita nded nded ended l release 24 release 24 release 24 Clinics hr TAKE 1 hr TAKE 1 hr TAKE 1 TABLET BY TABLET BY TABLET BY MOUTH EVERY MOUTH EVERY MOUTH DAY DAY EVERY DAY tramadol 50 tramadol 50 No tramadol [place] mg tablet mg tablet 50 mg Comm uni TAKE 1 TAKE 1 tablet ty TABLET BY TABLET BY TAKE 1 Hos rita MOUTH TWICE MOUTH TWICE TABLET BY l DAILY DAILY MOUTH Clinic s NEEDED FOR NEEDED FOR TWICE PAIN PAIN DAILY NEEDED FOR PAIN atorvastati atorvastati No atorvastat [place] n 10 mg n 10 mg in 10 mg Commu ni tablet TAKE tablet TAKE tablet ty 1 TABLET BY 1 TABLET BY TAKE 1 Hospita MOUTH AT MOUTH AT TABLET BY l BEDTIME BEDTIME MOUTH AT Clini cs BEDTIME clopidogrel clopidogrel No clopidogre [place] 75 mg 75 mg l 75 mg Communi tablet TAKE tablet TAKE tablet ty 1 TABLET BY 1 TABLET BY TAKE 1 Hospita MOUTH DAILY MOUTH DAILY TABLET BY l MOUTH Clinics DAILY hydrocortis hydrocortis No hydrocorti [place] one one sone Communi valerate valerate valerate ty 0.2 % 0.2 % 0.2 % [facility] topical topical topical l cream APPLY cream APPLY cream Clinics A THIN A THIN APPLY A LAYER LAYER THIN LAYER TOPICALLY TOPICALLY TOPICALLY TO THE TO THE TO THE AFFECTED AFFECTED AFFECTED AREA ON THE AREA ON THE AREA ON GROIN GROIN THE GROIN NEEDED FOR NEEDED FOR NEEDED ITCHING FOR ITCHING FOR FOR 2 WEEKS PER 2 WEEKS PER ITCHING MONTH MONTH FOR 2 WEEKS PER MONTH isosorbide isosorbide No isosorbide [place] mononitrate mononitrate mononitrat Communi ER 30 mg ER 30 mg e ER 30 mg t y tablet,exte tablet,exte tablet,ext Hospita nded nded ended l release 24 release 24 release 24 Clinics hr TAKE 1 hr TAKE 1 hr TAKE 1 TABLET BY TABLET BY TABLET BY MOUTH EVERY MOUTH EVERY MOUTH DAY DAY EVERY DAY metoprolol metoprolol No metoprolol [place] succinate succinate succinate Communi ER 25 mg ER 25 mg ER 25 mg ty tablet,exte tablet,exte tablet,ext Hospita nded nded ended l release 24 release 24 release 24 Clinics hr TAKE 1 hr TAKE 1 hr TAKE 1 TABLET BY TABLET BY TABLET BY MOUTH EVERY MOUTH EVERY MOUTH DAY DAY EVERY DAY tramadol 50 tramadol 50 No tramadol [place] mg tablet mg tablet 50 mg Comm uni TAKE 1 TAKE 1 tablet ty TABLET BY TABLET BY TAKE 1 Hos rita MOUTH TWICE MOUTH TWICE TABLET BY l DAILY DAILY MOUTH Clinic s NEEDED FOR NEEDED FOR TWICE PAIN PAIN DAILY NEEDED FOR PAIN atorvastati atorvastati No atorvastat [place] n 10 mg n 10 mg in 10 mg Commu ni tablet TAKE tablet TAKE tablet ty 1 TABLET BY 1 TABLET BY TAKE 1 Hospita MOUTH AT MOUTH AT TABLET BY l BEDTIME BEDTIME MOUTH AT Clini cs BEDTIME clopidogrel clopidogrel No clopidogre [place] 75 mg 75 mg l 75 mg Communi tablet TAKE tablet TAKE tablet ty 1 TABLET BY 1 TABLET BY TAKE 1 Hospita MOUTH DAILY MOUTH DAILY TABLET BY l MOUTH Clinics DAILY hydrocortis hydrocortis No hydrocorti [place] one one sone Communi valerate valerate valerate ty 0.2 % 0.2 % 0.2 % [facility] topical topical topical l cream APPLY cream APPLY cream Clinics A THIN A THIN APPLY A LAYER LAYER THIN LAYER TOPICALLY TOPICALLY TOPICALLY TO THE TO THE TO THE AFFECTED AFFECTED AFFECTED AREA ON THE AREA ON THE AREA ON GROIN GROIN THE GROIN NEEDED FOR NEEDED FOR NEEDED ITCHING FOR ITCHING FOR FOR 2 WEEKS PER 2 WEEKS PER ITCHING MONTH MONTH FOR 2 WEEKS PER MONTH isosorbide isosorbide No isosorbide [place] mononitrate mononitrate mononitrat Communi ER 30 mg ER 30 mg e ER 30 mg t y tablet,exte tablet,exte tablet,ext Hospita nded nded ended l release 24 release 24 release 24 Clinics hr TAKE 1 hr TAKE 1 hr TAKE 1 TABLET BY TABLET BY TABLET BY MOUTH EVERY MOUTH EVERY MOUTH DAY DAY EVERY DAY metoprolol metoprolol No metoprolol [place] succinate succinate succinate Communi ER 25 mg ER 25 mg ER 25 mg ty tablet,exte tablet,exte tablet,ext Hospita nded nded ended l release 24 release 24 release 24 Clinics hr TAKE 1 hr TAKE 1 hr TAKE 1 TABLET BY TABLET BY TABLET BY MOUTH EVERY MOUTH EVERY MOUTH DAY DAY EVERY DAY tramadol 50 tramadol 50 No tramadol [place] mg tablet mg tablet 50 mg Comm uni TAKE 1 TAKE 1 tablet ty TABLET BY TABLET BY TAKE 1 Hos rita MOUTH TWICE MOUTH TWICE TABLET BY l DAILY DAILY MOUTH Clinic s NEEDED FOR NEEDED FOR TWICE PAIN PAIN DAILY NEEDED FOR PAIN atorvastati atorvastati No atorvastat [place] n 10 mg n 10 mg in 10 mg Commu ni tablet TAKE tablet TAKE tablet ty 1 TABLET BY 1 TABLET BY TAKE 1 Hospita MOUTH AT MOUTH AT TABLET BY l BEDTIME BEDTIME MOUTH AT Clini cs BEDTIME clopidogrel clopidogrel No clopidogre [place] 75 mg 75 mg l 75 mg Communi tablet TAKE tablet TAKE tablet ty 1 TABLET BY 1 TABLET BY TAKE 1 Hospita MOUTH DAILY MOUTH DAILY TABLET BY l MOUTH Clinics DAILY hydrocortis hydrocortis No hydrocorti [place] one one tishae [place] valerate valerate valerate ty 0.2 % 0.2 % 0.2 % Hospita topical topical topical l cream APPLY cream APPLY cream Clinics A THIN A THIN APPLY A LAYER LAYER THIN LAYER TOPICALLY TOPICALLY TOPICALLY TO THE TO THE TO THE AFFECTED AFFECTED AFFECTED AREA ON THE AREA ON THE AREA ON GROIN GROIN THE GROIN NEEDED FOR NEEDED FOR NEEDED ITCHING FOR ITCHING FOR FOR 2 WEEKS PER 2 WEEKS PER ITCHING MONTH MONTH FOR 2 WEEKS PER MONTH isosorbide isosorbide No isosorbide [place] mononitrate mononitrate mononitrat Communi ER 30 mg ER 30 mg e ER 30 mg t y tablet,exte tablet,exte tablet,ext Hospita nded nded ended l release 24 release 24 release 24 Clinics hr TAKE 1 hr TAKE 1 hr TAKE 1 TABLET BY TABLET BY TABLET BY MOUTH EVERY MOUTH EVERY MOUTH DAY DAY EVERY DAY metoprolol metoprolol No metoprolol [place] succinate succinate succinate Communi ER 25 mg ER 25 mg ER 25 mg ty tablet,exte tablet,exte tablet,ext Hospita nded nded ended l release 24 release 24 release 24 Clinics hr TAKE 1 hr TAKE 1 hr TAKE 1 TABLET BY TABLET BY TABLET BY MOUTH EVERY MOUTH EVERY MOUTH DAY DAY EVERY DAY tramadol 50 tramadol 50 No tramadol [place] mg tablet mg tablet 50 mg Comm uni TAKE 1 TAKE 1 tablet ty TABLET BY TABLET BY TAKE 1 Hos rita MOUTH TWICE MOUTH TWICE TABLET BY l DAILY DAILY MOUTH Clinic s NEEDED FOR NEEDED FOR TWICE PAIN PAIN DAILY NEEDED FOR PAIN atorvastati atorvastati No atorvastat [place] n 10 mg n 10 mg in 10 mg Commu ni tablet TAKE tablet TAKE tablet ty 1 TABLET BY 1 TABLET BY TAKE 1 Hospita MOUTH AT MOUTH AT TABLET BY l BEDTIME BEDTIME MOUTH AT Clini cs BEDTIME clopidogrel clopidogrel No clopidogre [place] 75 mg 75 mg l 75 mg Communi tablet TAKE tablet TAKE tablet ty 1 TABLET BY 1 TABLET BY TAKE 1 Hospita MOUTH DAILY MOUTH DAILY TABLET BY l MOUTH Clinics DAILY hydrocortis hydrocortis No hydrocorti [place] one one behzad Rodgers valerate valerate valerate ty 0.2 % 0.2 % 0.2 % Hospita topical topical topical l cream APPLY cream APPLY cream Clinics A THIN A THIN APPLY A LAYER LAYER THIN LAYER TOPICALLY TOPICALLY TOPICALLY TO THE TO THE TO THE AFFECTED AFFECTED AFFECTED AREA ON THE AREA ON THE AREA ON GROIN GROIN THE GROIN NEEDED FOR NEEDED FOR NEEDED ITCHING FOR ITCHING FOR FOR 2 WEEKS PER 2 WEEKS PER ITCHING MONTH MONTH FOR 2 WEEKS PER MONTH isosorbide isosorbide No isosorbide [place] mononitrate mononitrate mononitrat Communi ER 30 mg ER 30 mg e ER 30 mg t y tablet,exte tablet,exte tablet,ext [facility]ospita nded nded ended l release 24 release 24 release 24 Clinics hr TAKE 1 hr TAKE 1 hr TAKE 1 TABLET BY TABLET BY TABLET BY MOUTH EVERY MOUTH EVERY MOUTH DAY DAY EVERY DAY metoprolol metoprolol No metoprolol [place] succinate succinate succinate Communi ER 25 mg ER 25 mg ER 25 mg ty tablet,exte tablet,exte tablet,ext [facility]ospita nded nded ended l release 24 release 24 release 24 Clinics hr TAKE 1 hr TAKE 1 hr TAKE 1 TABLET BY TABLET BY TABLET BY MOUTH EVERY MOUTH EVERY MOUTH DAY DAY EVERY DAY tramadol 50 tramadol 50 No tramadol [place] mg tablet mg tablet 50 mg Comm uni TAKE 1 TAKE 1 tablet ty TABLET BY TABLET BY TAKE 1 Hos rita MOUTH TWICE MOUTH TWICE TABLET BY l DAILY DAILY MOUTH Clinic s NEEDED FOR NEEDED FOR TWICE PAIN PAIN DAILY NEEDED FOR PAIN atorvastati atorvastati No atorvastat [place] n 10 mg n 10 mg in 10 mg Commu ni tablet TAKE tablet TAKE tablet ty 1 TABLET BY 1 TABLET BY TAKE 1 Hospita MOUTH AT MOUTH AT TABLET BY l BEDTIME BEDTIME MOUTH AT Clini cs BEDTIME clopidogrel clopidogrel No clopidogre [place] 75 mg 75 mg l 75 mg Communi tablet TAKE tablet TAKE tablet ty 1 TABLET BY 1 TABLET BY TAKE 1 Hospita MOUTH DAILY MOUTH DAILY TABLET BY l MOUTH Clinics DAILY hydrocortis hydrocortis No hydrocorti [place] one one behzad Rodgers valerate valerate valerate ty 0.2 % 0.2 % 0.2 % Hospita topical topical topical l cream APPLY cream APPLY cream Clinics A THIN A THIN APPLY A LAYER LAYER THIN LAYER TOPICALLY TOPICALLY TOPICALLY TO THE TO THE TO THE AFFECTED AFFECTED AFFECTED AREA ON THE AREA ON THE AREA ON GROIN GROIN THE GROIN NEEDED FOR NEEDED FOR NEEDED ITCHING FOR ITCHING FOR FOR 2 WEEKS PER 2 WEEKS PER ITCHING MONTH MONTH FOR 2 WEEKS PER MONTH isosorbide isosorbide No isosorbide [place] mononitrate mononitrate mononitrat Communi ER 30 mg ER 30 mg e ER 30 mg t y tablet,exte tablet,exte tablet,ext [facility]ospita nded nded ended l release 24 release 24 release 24 Clinics hr TAKE 1 hr TAKE 1 hr TAKE 1 TABLET BY TABLET BY TABLET BY MOUTH EVERY MOUTH EVERY MOUTH DAY DAY EVERY DAY metoprolol metoprolol No metoprolol [place] succinate succinate succinate Communi ER 25 mg ER 25 mg ER 25 mg ty tablet,exte tablet,exte tablet,ext [facility]ospita nded nded ended l release 24 release 24 release 24 Clinics hr TAKE 1 hr TAKE 1 hr TAKE 1 TABLET BY TABLET BY TABLET BY MOUTH EVERY MOUTH EVERY MOUTH DAY DAY EVERY DAY tramadol 50 tramadol 50 No tramadol [place] mg tablet mg tablet 50 mg Comm uni TAKE 1 TAKE 1 tablet ty TABLET BY TABLET BY TAKE 1 Hos rita MOUTH TWICE MOUTH TWICE TABLET BY l DAILY DAILY MOUTH Clinic s NEEDED FOR NEEDED FOR TWICE PAIN PAIN DAILY NEEDED FOR PAIN atorvastati atorvastati No atorvastat [place] n 10 mg n 10 mg in 10 mg Commu ni tablet TAKE tablet TAKE tablet ty 1 TABLET BY 1 TABLET BY TAKE 1 Hospita MOUTH AT MOUTH AT TABLET BY l BEDTIME BEDTIME MOUTH AT Clini cs BEDTIME clopidogrel clopidogrel No clopidogre [place] 75 mg 75 mg l 75 mg Communi tablet TAKE tablet TAKE tablet ty 1 TABLET BY 1 TABLET BY TAKE 1 Hospita MOUTH DAILY MOUTH DAILY TABLET BY l MOUTH Clinics DAILY hydrocortis hydrocortis No hydrocorti [place] one one behzad Rodgers valerate valerate valerate ty 0.2 % 0.2 % 0.2 % Hospita topical topical topical l cream APPLY cream APPLY cream Clinics A THIN A THIN APPLY A LAYER LAYER THIN LAYER TOPICALLY TOPICALLY TOPICALLY TO THE TO THE TO THE AFFECTED AFFECTED AFFECTED AREA ON THE AREA ON THE AREA ON GROIN GROIN THE GROIN NEEDED FOR NEEDED FOR NEEDED ITCHING FOR ITCHING FOR FOR 2 WEEKS PER 2 WEEKS PER ITCHING MONTH MONTH FOR 2 WEEKS PER MONTH isosorbide isosorbide No isosorbide [place] mononitrate mononitrate mononitrat Communi ER 30 mg ER 30 mg e ER 30 mg t y tablet,exte tablet,exte tablet,ext [facility]ospita nded nded ended l release 24 release 24 release 24 Clinics hr TAKE 1 hr TAKE 1 hr TAKE 1 TABLET BY TABLET BY TABLET BY MOUTH EVERY MOUTH EVERY MOUTH DAY DAY EVERY DAY metoprolol metoprolol No metoprolol [place] succinate succinate succinate Communi ER 25 mg ER 25 mg ER 25 mg ty tablet,exte tablet,exte tablet,ext [facility]ospita nded nded ended l release 24 release 24 release 24 Clinics hr TAKE 1 hr TAKE 1 hr TAKE 1 TABLET BY TABLET BY TABLET BY MOUTH EVERY MOUTH EVERY MOUTH DAY DAY EVERY DAY tramadol 50 tramadol 50 No tramadol [place] mg tablet mg tablet 50 mg Comm uni TAKE 1 TAKE 1 tablet ty TABLET BY TABLET BY TAKE 1 Hos rita MOUTH TWICE MOUTH TWICE TABLET BY l DAILY DAILY MOUTH Clinic s NEEDED FOR NEEDED FOR TWICE PAIN PAIN DAILY NEEDED FOR PAIN atorvastati atorvastati No atorvastat [place] n 10 mg n 10 mg in 10 mg Commu ni tablet TAKE tablet TAKE tablet ty 1 TABLET BY 1 TABLET BY TAKE 1 Hospita MOUTH AT MOUTH AT TABLET BY l BEDTIME BEDTIME MOUTH AT Clini cs BEDTIME clopidogrel clopidogrel No clopidogre [place] 75 mg 75 mg l 75 mg Communi tablet TAKE tablet TAKE tablet ty 1 TABLET BY 1 TABLET BY TAKE 1 Hospita MOUTH DAILY MOUTH DAILY TABLET BY l MOUTH Clinics DAILY isosorbide isosorbide No isosorbide [place] mononitrate mononitrate mononitrat Communi ER 30 mg ER 30 mg e ER 30 mg t y tablet,exte tablet,exte tablet,ext [facility]ospita nded nded ended l release 24 release 24 release 24 Clinics hr TAKE 1 hr TAKE 1 hr TAKE 1 TABLET BY TABLET BY TABLET BY MOUTH ONCE MOUTH ONCE MOUTH ONCE DAILY DAILY DAILY tramadol 50 tramadol 50 No tramadol [place] mg tablet mg tablet 50 mg Comm uni TAKE 1 TAKE 1 tablet ty TABLET BY TABLET BY TAKE 1 Hos [facility]ita MOUTH EVERY MOUTH EVERY TABLET BY l DAY DAY MOUTH Clinics NEEDED NEEDED EVERY DAY NEEDED atorvastati atorvastati No atorvastat [place] n 10 mg n 10 mg in 10 mg Commu ni tablet TAKE tablet TAKE tablet ty 1 TABLET BY 1 TABLET BY TAKE 1 Hospita MOUTH AT MOUTH AT TABLET BY l BEDTIME BEDTIME MOUTH AT Clini cs BEDTIME clopidogrel clopidogrel No clopidogre [place] 75 mg 75 mg l 75 mg Communi tablet TAKE tablet TAKE tablet ty 1 TABLET BY 1 TABLET BY TAKE 1 Hospita MOUTH DAILY MOUTH DAILY TABLET BY l MOUTH Clinics DAILY isosorbide isosorbide No isosorbide [place] mononitrate mononitrate mononitrat Communi ER 30 mg ER 30 mg e ER 30 mg t y tablet,exte tablet,exte tablet,ext [facility]ospita nded nded ended l release 24 release 24 release 24 Clinics hr TAKE 1 hr TAKE 1 hr TAKE 1 TABLET BY TABLET BY TABLET BY MOUTH ONCE MOUTH ONCE MOUTH ONCE DAILY DAILY DAILY tramadol 50 tramadol 50 No tramadol [place] mg tablet mg tablet 50 mg Comm uni TAKE 1 TAKE 1 tablet ty TABLET BY TABLET BY TAKE 1 Hos [facility]ita MOUTH EVERY MOUTH EVERY TABLET BY l DAY DAY MOUTH Clinics NEEDED NEEDED EVERY DAY NEEDED Immunizations Ordered Immunization Filled Immunization Date Status Commen ts Source Name Name Pneumococcal Pneumococcal 2022-09-09 Completed [place] conjugate PCV20, conjugate PCV20, 00:00:00 [facility] [id number] conjugate, [id number] conjugate, Clinics adjuvant, PF adjuvant, PF Pneumococcal Pneumococcal 2022-09-09 Completed [place] conjugate PCV20, conjugate PCV20, 00:00:00 [facility] polys[facility] polysaccharide [facility] [id number] conjugate, [id number] conjugate, Clinics adjuvant, PF adjuvant, PF Pneumococcal Pneumococcal 2022-09-09 Completed [place] conjugate PCV20, conjugate PCV20, 00:00:00 [facility] polysaccharide polysaccharide Hospit [facility] [id number] conjugate, [id number] conjugate, Clinics adjuvant, PF adjuvant, PF influenza, influenza, 2022-04-25 Completed [place] high-dose, high-dose, 00:00:00 [facility] quadrivalent quadrivalent [facility] influenza, influenza, 2022-04-25 Completed [place] high-dose, high-dose, 00:00:00 [facility] influenza, influenza, 2022-04-25 Completed [place] high-dose, high-dose, 00:00:00 [facility] influenza, influenza, 2022-04-25 Completed [place] high-dose, high-dose, 00:00:00 [facility] influenza, influenza, 2022-04-25 Completed [place] high-dose, high-dose, 00:00:00 [facility] influenza, influenza, 2022-04-25 Completed [place] high-dose, high-dose, 00:00:00 [facility] Influenza, Influenza, 2021-05-07 Completed [place] injectable, MDCK, injectable, MDCK, 11:45:39 [facility] Influenza, Influenza, 2021-05-07 Completed [place] injectable, MDCK, injectable, MDCK, 11:45:39 [facility] Influenza, Influenza, 2021-05-07 Completed [place] injectable, MDCK, injectable, MDCK, 11:45:39 [facility] Influenza, Influenza, 2021-05-07 Completed [place] injectable, MDCK, injectable, MDCK, 11:45:39 [facility] Influenza, Influenza, 2021-05-07 Completed [place] injectable, MDCK, injectable, MDCK, 11:45:39 [facility] Influenza, Influenza, 2021-05-07 Completed [place] injectable, MDCK, injectable, MDCK, 11:45:39 [facility] Influenza, Influenza, 2021-05-07 Completed [place] injectable, MDCK, injectable, MDCK, 11:45:39 [facility] Influenza, Influenza, 2021-05-07 Completed [place] injectable, MDCK, injectable, MDCK, 11:45:39 [facility] preservative free, preservative free, Hospital quadrivalent quadrivalent Clinics Influenza, Influenza, 2021-05-07 Completed [place] injectable, MDCK, injectable, MDCK, 11:45:39 [facility] preservative free, preservative free, Hospital quadrivalent quadrivalent Clinics Influenza, Influenza, 2021-05-07 Completed [place] injectable, MDCK, injectable, MDCK, 11:45:39 [facility] preservative free, preservative free, Hospital quadrivalent quadrivalent Clinics Influenza, Influenza, 2021-05-07 Completed [place] injectable, MDCK, injectable, MDCK, 11:45:39 [facility] preservative free, preservative free, Hospital quadrivalent quadrivalent Clinics Influenza, Influenza, 2021-05-07 Completed [place] injectable, MDCK, injectable, MDCK, 11:45:39 [facility] preservative free, preservative free, Hospital quadrivalent quadrivalent Clinics SARS-COV-2 SARS-COV-2 2020-10-18 Completed [place] (COVID-19) vaccine, (COVID-19) vaccine, 00:00:00 [facility]IED [facility] Clin[facility] COVID-19 COVID-19 2020-10-18 Completed [place] (SARS-COV-2) (SARS-COV-2) 00:00:00 Community vaccine, unspecified vaccine, unspecified Hospital Clinics COVID-19 COVID-19 2020-10-18 Completed [place] (SARS-COV-2) (SARS-COV-2) 00:00:00 Community vaccine, unspecified vaccine, unspecified Hospital Clinics COVID-19 COVID-19 2020-10-18 Completed [place] (SARS-COV-2) (SARS-COV-2) 00:00:00 Community vaccine, unspecified vaccine, unspecified Hospital Clinics COVID-19 COVID-19 2020-10-18 Completed [place] (SARS-COV-2) (SARS-COV-2) 00:00:00 Community vaccine, unspecified vaccine, unspecified Hospital Clinics COVID-19 COVID-19 2020-10-18 Completed [place] (SARS-COV-2) (SARS-COV-2) 00:00:00 Community vaccine, unspecified vaccine, unspecified Hospital Clinics COVID-19 COVID-19 2020-10-18 Completed [place] (SARS-COV-2) (SARS-COV-2) 00:00:00 Community vaccine, unspecified vaccine, unspecified Hospital Clinics COVID-19 COVID-19 2020-10-18 Completed [place] (SARS-COV-2) (SARS-COV-2) 00:00:00 Community vaccine, unspecified vaccine, unspecified Hospital Clinics COVID-19 COVID-19 2020-10-18 Completed [place] (SARS-COV-2) (SARS-COV-2) 00:00:00 Community vaccine, unspecified vaccine, unspecified Hospital Clinics COVID-19 COVID-19 2020-10-18 Completed [place] (SARS-COV-2) (SARS-COV-2) 00:00:00 Community vaccine, unspecified vaccine, unspecified Hospital Clinics COVID-19 COVID-19 2020-10-18 Completed [place] (SARS-COV-2) (SARS-COV-2) 00:00:00 Community vaccine, unspecified vaccine, unspecified Hospital Clinics COVID-19 COVID-19 2020-10-18 Completed [place] (SARS-COV-2) (SARS-COV-2) 00:00:00 Community vaccine, unspecified vaccine, unspecified Hospital Clinics COVID-19 COVID-19 2020-10-18 Completed [place] (SARS-COV-2) (SARS-COV-2) 00:00:00 Community vaccine, unspecified vaccine, unspecified Hospital Clinics SARS-COV-2 SARS-COV-2 2020-10-18 Completed [place] (COVID-19) vaccine, (COVID-19) vaccine, 00:00:00 [facility]PEC[facility]IED [facility]PEC[facility]IED [facility] Clin[facility] SARS-COV-2 SARS-COV-2 2020-09-21 Completed [place] (COVID-19) vaccine, (COVID-19) vaccine, 00:00:00 [facility]PEC[facility]IED [facility]PEC[facility]IED [facility] Clin[facility] COVID-19 COVID-19 2020-09-21 Completed [place] (SARS-COV-2) (SARS-COV-2) 00:00:00 Community vaccine, unspecified vaccine, unspecified Hospital Clinics COVID-19 COVID-19 2020-09-21 Completed [place] (SARS-COV-2) (SARS-COV-2) 00:00:00 Community vaccine, unspecified vaccine, unspecified Hospital Clinics COVID-19 COVID-19 2020-09-21 Completed [place] (SARS-COV-2) (SARS-COV-2) 00:00:00 Community vaccine, unspecified vaccine, unspecified Hospital Clinics COVID-19 COVID-19 2020-09-21 Completed [place] (SARS-COV-2) (SARS-COV-2) 00:00:00 Community vaccine, unspecified vaccine, unspecified Hospital Clinics COVID-19 COVID-19 2020-09-21 Completed [place] (SARS-COV-2) (SARS-COV-2) 00:00:00 Community vaccine, unspecified vaccine, unspecified Hospital Clinics COVID-19 COVID-19 2020-09-21 Completed [place] (SARS-COV-2) (SARS-COV-2) 00:00:00 Community vaccine, unspecified vaccine, unspecified Hospital Clinics COVID-19 COVID-19 2020-09-21 Completed [place] (SARS-COV-2) (SARS-COV-2) 00:00:00 Community vaccine, unspecified vaccine, unspecified Hospital Clinics COVID-19 COVID-19 2020-09-21 Completed [place] (SARS-COV-2) (SARS-COV-2) 00:00:00 Community vaccine, unspecified vaccine, unspecified Hospital Clinics COVID-19 COVID-19 2020-09-21 Completed [place] (SARS-COV-2) (SARS-COV-2) 00:00:00 Community vaccine, unspecified vaccine, unspecified Hospital Clinics COVID-19 COVID-19 2020-09-21 Completed [place] (SARS-COV-2) (SARS-COV-2) 00:00:00 Community vaccine, unspecified vaccine, unspecified Hospital Clinics COVID-19 COVID-19 2020-09-21 Completed [place] (SARS-COV-2) (SARS-COV-2) 00:00:00 Community vaccine, unspecified vaccine, unspecified Hospital Clinics COVID-19 COVID-19 2020-09-21 Completed [place] (SARS-COV-2) (SARS-COV-2) 00:00:00 Community vaccine, unspecified vaccine, unspecified Hospital Clinics SARS-COV-2 SARS-COV-2 2020-09-21 Completed [place] (COVID-19) vaccine, (COVID-19) vaccine, 00:00:00 [facility] SARS-COV-2 2020-09-18 Completed [place] (COVID-19) vaccine, (COVID-19) vaccine, 00:00:00 [facility] influenza, influenza, 2020-03-28 Completed [place] injectable, injectable, 00:00:00 [facility] influenza, influenza, 2020-03-28 Completed [place] injectable, injectable, 00:00:00 [facility] influenza, influenza, 2020-03-28 Completed [place] injectable, injectable, 00:00:00 [facility] influenza, influenza, 2020-03-28 Completed [place] injectable, injectable, 00:00:00 [facility] influenza, influenza, 2020-03-28 Completed [place] injectable, injectable, 00:00:00 [facility] influenza, influenza, 2020-03-28 Completed [place] injectable, injectable, 00:00:00 [facility] influenza, influenza, 2020-03-28 Completed [place] injectable, injectable, 00:00:00 [facility] influenza, influenza, 2020-03-28 Completed [place] injectable, injectable, 00:00:00 [facility] influenza, influenza, 2020-03-28 Completed [place] injectable, injectable, 00:00:00 [facility] influenza, influenza, 2020-03-28 Completed [place] injectable, injectable, 00:00:00 [facility] influenza, influenza, 2020-03-28 Completed [place] injectable, injectable, 00:00:00 [facility] influenza, influenza, 2020-03-28 Completed [place] injectable, injectable, 00:00:00 [facility] influenza, influenza, 2020-03-28 Completed [place] injectable, injectable, 00:00:00 [facility] influenza, influenza, 2020-03-28 Completed [place] injectable, injectable, 00:00:00 [facility] influenza, influenza, 2020-03-28 Completed [place] injectable, injectable, 00:00:00 [facility] influenza, influenza, 2019-05-04 Completed [place] injectable, injectable, 00:00:00 [facility] influenza, influenza, 2019-05-04 Completed [place] injectable, injectable, 00:00:00 [facility] influenza, influenza, 2019-05-04 Completed [place] injectable, injectable, 00:00:00 [facility] influenza, influenza, 2019-05-04 Completed [place] injectable, injectable, 00:00:00 [facility] influenza, influenza, 2019-05-04 Completed [place] injectable, injectable, 00:00:00 [facility] influenza, influenza, 2019-05-04 Completed [place] injectable, injectable, 00:00:00 [facility] influenza, influenza, 2019-05-04 Completed [place] injectable, injectable, 00:00:00 [facility] influenza, influenza, 2019-05-04 Completed [place] injectable, injectable, 00:00:00 [facility] influenza, influenza, 2019-05-04 Completed [place] injectable, injectable, 00:00:00 [facility] influenza, influenza, 2019-05-04 Completed [place] injectable, injectable, 00:00:00 [facility] influenza, influenza, 2019-05-04 Completed [place] injectable, injectable, 00:00:00 [facility] influenza, influenza, 2019-05-04 Completed [place] injectable, injectable, 00:00:00 [facility] influenza, influenza, 2019-05-04 Completed [place] injectable, injectable, 00:00:00 [facility] influenza, influenza, 2019-05-04 Completed [place] injectable, injectable, 00:00:00 [facility] influenza, influenza, 2019-05-04 Completed [place] injectable, injectable, 00:00:00 [facility] Influenza, Influenza, Unknown Completed [place] injectable, MDCK, injectable, MDCK, [facility] Unknown Completed [place] conjugate PCV20, conjugate PCV20, [facility] polysaccharide polysaccharide Hospit [facility] [id number] conjugate, [id number] conjugate, Clinics adjuvant, PF adjuvant, PF influenza, influenza, Unknown Completed [place] high-dose, high-dose, [facility] quadrivalent quadrivalent [facility] Clinics COVID-19 COVID-19 Unknown Completed [place] (SARS-COV-2) (SARS-COV-2) Community vaccine, unspecified vaccine, unspecified Hospital Clinics COVID-19 COVID-19 Unknown Completed [place] (SARS-COV-2) (SARS-COV-2) Community vaccine, unspecified vaccine, unspecified Hospital Clinics influenza, influenza, Unknown Completed [place] injectable, injectable, [facility]alent [facility] Clin[facility] influenza, influenza, Unknown Completed [place] injectable, injectable, [facility] quadrivalent quadrivalent [facility] Clinics Vital Signs Vital Name Observation Time Observation Value Comments Source BMI (Body Mass 2023-04-14 00:00:00 26.9 kg/m2 [facility] Body Weight 2023-04-14 00:00:00 2832 [oz_av] [facility] Height 2023-04-14 00:00:00 68 [in_i] [facility] s BP Diastolic 2023-04-14 00:00:00 72 mm[Hg] [facility] s BP Systolic 2023-04-14 00:00:00 120 mm[Hg] [facility] s BP Diastolic 2023-02-11 00:00:00 74 mm[Hg] [facility] Height 2023-02-11 00:00:00 68 [in_i] [facility] s BMI (Body Mass 2023-02-11 00:00:00 27.2 kg/m2 [facility]) [facility] s BP Systolic 2023-02-11 00:00:00 124 mm[Hg] [facility] s Body Weight 2023-02-11 00:00:00 2864 [oz_av] [facility] s BP Diastolic 2022-12-12 00:00:00 70 mm[Hg] [facility] Height 2022-12-12 00:00:00 68 [in_i] [facility] BP Systolic 2022-12-12 00:00:00 116 mm[Hg] [facility] BP Diastolic 2022-09-09 00:00:00 72 mm[Hg] [facility] Height 2022-09-09 00:00:00 68 [in_i] [facility] BMI (Body Mass 2022-09-09 00:00:00 28.6 kg/m2 [facility]) [facility] s BP Systolic 2022-09-09 00:00:00 120 mm[Hg] [facility] s Body Weight 2022-09-09 00:00:00 3008 [oz_av] [facility] s BP Diastolic 2022-07-15 00:00:00 74 mm[Hg] [facility] Height 2022-07-15 00:00:00 68 [in_i] [facility] BMI (Body Mass 2022-07-15 00:00:00 29 kg/m2 [facility]) [facility] BP Systolic 2022-07-15 00:00:00 114 mm[Hg] [facility] s Body Weight 2022-07-15 00:00:00 3048 [oz_av] [facility] BP Diastolic 2022-06-06 00:00:00 74 mm[Hg] [facility] Height 2022-06-06 00:00:00 68 [in_i] [facility] s BMI (Body Mass 2022-06-06 00:00:00 28.7 kg/m2 [facility]) [facility] BP Systolic 2022-06-06 00:00:00 120 mm[Hg] [facility] Body Weight 2022-06-06 00:00:00 3024 [oz_av] [facility] Body height 2022-04-22 14:15:[facility] 2022-04-22 14:15:00 [facility]22-04[facility]22 [facility]:15[facility] 2022-03-07 00:00:00 72 mm[Hg] [facility] Height 2022-03-07 00:00:00 68 [in_i] [facility] BMI (Body Mass 2022-03-07 00:00:00 29.3 kg/m2 [facility]) [facility] BP Systolic 2022-03-07 00:00:00 116 mm[Hg] [facility] s Body Weight 2022-03-07 00:00:00 3088 [oz_av] [facility] s BP Diastolic 2021-12-06 00:00:00 62 mm[Hg] [facility] Height 2021-12-06 00:00:00 68 [in_i] [facility] BMI (Body Mass 2021-12-06 00:00:00 29.2 kg/m2 [facility]) [facility] BP Systolic 2021-12-06 00:00:00 108 mm[Hg] [facility] s Body Weight 2021-12-06 00:00:00 3072 [oz_av] [facility] BP Diastolic 2021-10-30 00:00:00 70 mm[Hg] [facility] Height 2021-10-30 00:00:00 68 [in_i] [facility] s BMI (Body Mass 2021-10-30 00:00:00 29.2 kg/m2 [facility]) [facility] BP Systolic 2021-10-30 00:00:00 112 mm[Hg] [facility] Body Weight 2021-10-30 00:00:00 3072 [oz_av] [facility] BP Diastolic 2021-10-15 00:00:00 82 mm[Hg] [facility] Height 2021-10-15 00:00:00 68 [in_i] [facility] s BMI (Body Mass 2021-10-15 00:00:00 29.3 kg/m2 [facility] BP Systolic 2021-10-15 00:00:00 116 mm[Hg] [facility] s Body Weight 2021-10-15 00:00:00 3088 [oz_av] [facility] BP Diastolic 2021-10-02 00:00:00 78 mm[Hg] [facility] Height 2021-10-02 00:00:00 68 [in_i] [facility] s BP Systolic 2021-10-02 00:00:00 116 mm[Hg] [facility] Height 2021-05-07 00:00:00 68 [in_i] [facility] s BP Diastolic 2021 00:00:00 62 mm[Hg] [facility] Height 2021 00:00:00 68 [in_i] [facility] s BMI (Body Mass 2021 00:00:00 29.6 kg/m2 [facility]) [facility] BP Systolic 2021 00:00:00 106 mm[Hg] [facility] s Body Weight 2021 00:00:00 3112 [oz_av] [facility] BP Diastolic 2021-01-02 00:00:00 62 mm[Hg] [facility] Height 2021-01-02 00:00:00 68 [in_i] [facility] s BMI (Body Mass 2021-01-02 00:00:00 29.3 kg/m2 [facility]) [facility] BP Systolic 2021-01-02 00:00:00 102 mm[Hg] [facility] Body Weight 2021-01-02 00:00:00 3088 [oz_av] [facility] s BP Diastolic 2020-10-03 00:00:00 82 mm[Hg] [facility] Height 2020-10-03 00:00:00 68 [in_i] [facility] s BMI (Body Mass 2020-10-03 00:00:00 30 kg/m2 [facility] s BP Systolic 2020-10-03 00:00:00 128 mm[Hg] [facility] s Body Weight 2020-10-03 00:00:00 3152 [oz_av] [facility] s Procedures Procedure Date / Time Performing Clinician Source Performed [id number] 2021-12-15 00:00:00 [facility] [id number] 2021-12-15 00:00:00 [facility] [id number] 2021-12-15 00:00:[address] [facility] [address], neck, w/o contrast 2021-10-02 00:00:[address] [facility] CT, head, w/o contrast 2021-10-02 00:00:[address] [facility] CT, cervical spine, w/o 2021-10-02 00:00:00 [facility] Cardiac Pacemaker [facility] Prostatectomy (Turp) [facility] Cholecystectomy [facility] Shoulder Joint Surgery [facility] Total Replacement of Hip [facility] Knee Surgery [facility] Plan of Care Planned Activity Planned Date Details Comments Source Diagnostic Test 2022-12-12 CMP, serum or [facility] Pending 00:00:00 plasma [code = Hospital Clin ics CMP, serum or plasma] Future Appointment 2023-06-16 Criselda Grier, [address] [facility] 10:00:00 Nayeli Scott; [facility] [place] [address] Encounters Start End Encounter Admission Attending Care Care Encounter Source Date/Time Date/Time Type Type Clinicians Facility Department ID 2022-10-15 Outpatient [facility] [id number] [place] 11:25:24 [id number] [facility] 2022-04-22 Outpatient [facility] [id number] [place] 08:37:07 [id number] [facility] 2022-04-18 Outpatient [facility] [id number] [place] 09:41:06 [id number] [facility] 2022-04-17 Outpatient [facility] [id number] [place] 09:44:45 [id number] [facility] 2023-04-14 2023-04-14 Outpatient [facility] [id number] [place] 00:00:00 00:00:00 [facility]18 [facility] 2023-04-14 2023-04-14 Outpatient [facility] [id number] [place] 00:00:00 00:00:00 024 [facility] 2023-04-14 2023-04-14 Jamari [facility] [place] 00:00:00 00:00:00 [facility] DO: [address] [facility], [facility] [place], [place], [address] MAGAN , Ph. 2023-03-08 2023-03-08 Outpatient [facility] [id number] [place] 00:00:00 00:00:00 821 [facility] 2023-02-11 2023-02-11 Jamari [facility] [place] [facility] [place] [id number] [place] 00:00:00 00:00:00 [facility] DO: [address] [facility], [facility] [place], [address] MAGAN , Ph. 2023-01-24 2023-01-24 Outpatient [facility] [id number] [place] 00:00:00 00:00:00 718 [facility] 2023-01-12 2023-01-12 Outpatient [facility] [id number] [place] 00:00:00 00:00:00 618 [facility] 2022-12-20 2022-12-20 Outpatient [facility] [id number] [place] 00:00:00 00:00:00 615 [facility] 2022-12-12 2022-12-12 Jamari [facility] [place] [facility] [place] 18 [place] 00:00:00 00:00:00 [facility] DO: [address] [facility], [place], [address] MAGAN , Ph. [phone] 2022-12-08 2022-12-08 Outpatient [facility] [id number] [place] 00:00:00 00:00:00 514 [facility] 2022-12-08 2022-12-08 Outpatient [facility] [id number] [place] 00:00:00 00:00:00 518 [facility] 2022-09-09 2022-09-09 Jamari [facility] [place] [facility] [place] [id number] [place] 00:00:00 00:00:00 [facility] DO: [address] [facility], [place], [address] MAGAN , Ph. 2022-08-20 2022-08-20 Outpatient [facility] [id number] [place] 00:00:00 00:00:00 213 [facility] 2022-07-15 2022-07-15 Outpatient [facility] [id number] [place] 00:00:00 00:00:00 219 [facility] 2022-07-15 2022-07-15 Outpatient [facility] [id number] [place] 00:00:00 00:00:00 103 [facility] 2022-07-15 2022-07-15 Jamari [facility] [place] [facility] [place] [id number] [place] 00:00:00 00:00:00 [facility] DO: [address] [facility], [place], [place] CL[place], [address] MAGAN , Ph. 2022-06-06 2022-06-06 Outpatient [facility] [id number] - [place] 00:00:00 00:00:00 110 [facility] 2022-06-06 2022-06-06 Jamari [facility] [place] [facility] [place] [id number] [place] 00:00:00 00:00:00 [facility] DO: [address] [facility], [facility] [place], [address] MAGAN , Ph. 2022-04-22 2022-04-22 Outpatient [facility] [id number] [place] 00:00:00 12:05:51 Health 2022-04-22 2022-04-22 Office [facility] [id number] [place] 09:00:00 09:36:16 Visit Fernando WELLS [id number] H [facility] [id number] [address] [id number] 2022-03-11 2022-03-11 Outpatient [facility] [id number] - [place] 00:00:00 00:00:00 815 [facility] 2022-03-07 2022-03-07 Outpatient [facility] [id number] - [place] 00:00:00 00:00:00 811 [facility] 2022-03-072022-03-07 Jamari [facility] [place] [facility] [place] 11 [place] 00:00:00 00:00:00 [facility] ty DO: [address] [facility] [place], [address] MAGAN , Ph. 2022-03-07 2022-03-07 Outpatient Magan [facility] [id number] 00:00:00 00:00:00 Jamari [id number] Adal [id number] 2022-01-04 2022-01-04 Outpatient [facility] [id number] [place] 11:16:00 11:16:00 610 [facility] i [facility] 2021-12-13 2021-12-16 Inpatient EM Karim, HCAWU INTE.02 [id number] [facility] 17:13:00 13:23:00 Nioti 16040 [facility] 2021-12-13 2021-12-16 Inpatient EM Karim, HCAW[facility] INTE.02 [id number] [facility] 17:13:00 13:23:00 Nioti 38 [facility] 2021-12-06 2021-12-06 Outpatient [facility] [id number] [place] 02:18:00 02:18:00 512 Commun i ty [facility] 2021-12-06 2021-12-06 Jamari [facility] [place] [facility] [place] 12 [place] 00:00:00 00:00:00 [facility] - ty DO: [address] [facility] [place], [address] MAGAN , Ph. 2021-12-06 2021-12-06 Outpatient Magan [facility] [id number] 00:00:00 00:00:00 Jamari [id number] Adal [id number] 2021-11-20 2021-11-20 Outpatient [facility] [id number] - [place] 10:33:00 10:33:00 426 [facility] 2021-10-30 2021-10-30 Outpatient [facility] [id number] - [place] 12:00:00 12:00:00 405 [facility] 2021-10-30 2021-10-30 Jamari [facility] [place] 00:00:00 00:00:00 [facility] - ty DO: [address] [facility], [place], [address] MAGAN , Ph. 2021-10-30 2021-10-30 Outpatient Magan [facility] [id number] 00:00:00 00:00:00 Jamari [id number] Adal [id number] 2021-10-15 2021-10-15 Outpatient [facility] [id number] - [place] 11:27:00 11:27:00 321 Commun i ty [facility]osp[facility] 2021-10-15 2021-10-15 Jamari [facility] [place] 00:00:00 00:00:00 [facility] - ty DO: [address] [facility] [place], [address] MAGAN , Ph. [phone] 2021-10-15 2021-10-15 Outpatient Magan [facility] [id number] 00:00:00 00:00:00 Jamari [id number] Adal [id number] 2021-10-02 2021-10-02 Outpatient [facility] [id number] - [place] 12:47:00 12:47:00 308 [facility] 2021-10-02 2021-10-02 Jamari [facility] [place] [facility] [place] [id number] [place] 00:00:00 00:00:00 [facility] - ty DO: [address] [facility], [place], [address] MAGAN , Ph. 2021-10-02 2021-10-02 Outpatient Magan [facility] [id number] 00:00:00 00:00:00 Jamari [id number] Adal [id number] 2021-10-02 2021-10-02 Outpatient Laboy, [facility] [id number] 00:00:00 00:00:00 Jamari [id number] Adal [id number] 2021-07-17 2021-07-17 Outpatient [facility] [id number] [place] 10:14:00 10:14:00 221 [facility] Clinics 2021-07-17 2021-07-17 aJmari [facility] [place] [facility] [place] [id number] [place] 00:00:00 00:00:00 [facility] - ty DO: [address] [facility], [place], [address] MAGAN , Ph. 2021-05-07 2021-05-07 Outpatient [facility] [id number] [place] 11:42:00 11:42:00 011 Commun i ty Hospita [facility] Clinics 2021-05-07 2021-05-07 Jamari [facility] [place] [facility] [place] [id number] [place] 00:00:00 00:00:00 [facility] ty DO: [address] a [facility], [place], [address] MAGAN , Ph. 2021 2021 Outpatient [facility] [id number] [place] 10:54:00 10:54:00 916 [facility] i [facility] 2021 2021 Outpatient Magan [facility] [id number] 00:00:00 00:00:00 Jamari [id number] Adal [id number] 2021 2021 Jamari [facility] [place] [facility] [place] 16 [place] 00:00:00 00:00:00 Adal [facility] DO: [address] [facility] [place], [address] MAGAN , Ph. 2021-02-20 2021-02-20 Outpatient [facility] [id number] - [place] 12:57:00 12:57:00 727 [facility] i [facility] Clinics 2021-01-02 2021-01-02 Outpatient [facility] [id number] - [place] 10:21:00 10:21:00 608 Commun i [facility] Clinics 2021-01-02 2021-01-02 [facility] [id number] 00:00:00 00:00:00 Jamari [id number] Adal [id number] 2021-01-02 2021-01-02 Jamari [facility] [place] [facility] [place] 08 [place] 00:00:00 00:00:00 Adal [facility] DO: [address] [facility] [place] [place], [address] MAGAN , Ph. 2020-10-03 2020-10-03 Outpatient [facility] [id number] [place] 09:55:00 09:55:[address] [facility] i ty Hospita l [facility] 2020-10-03 2020-10-03 Outpatient Magan [facility] [id number] 00:00:00 00:00:00 Jamari [id number] Adal [id number] 2020-10-03 2020-10-03 Jamari [facility] [place] [facility] [place] 09 [place] 00:00:00 00:00:00 [facility]: [address] a [facility] [address], H[facility]PITAL Clinic [place], [address] MAGAN , Ph. [phone] 2020-08-01 2020-08-01 Outpatient MAGAN_R [facility] [id number] [place] 08:35:00 08:35:[address] [facility] Results Test Description Test Time Test Comments Results Result Comments Source GLUCOSE BEDSIDE TESTING 2021-12-16 11:56:00 Test Item Value Reference Range Interpretation Comme [facility] GLUCOSE BEDSIDE TESTING (test code = GLUBED) 100 MG/DL 60-99 H BASIC METABOLIC [id number] 08:16:00 Test Item Value Reference Range Interpretation Comments SODIUM (test code = 136 MMOL/L 137-145 L NA) POTASSIUM (test code = 4.1 MMOL/L 3.5-5.1 N K) CHLORIDE (test code = 103 MMOL/L 98-107 N CL) CARBON DIOXIDE (test 27 MMOL/L 22-30 N code = CO2) ANION GAP (test code = 10 MMOL/L 14-24 L GAP) GLUCOSE (test code = 92 MG/DL 74-106 N GLU) BLOOD UREA NITROGEN 16 MG/DL 9-20 N (test code = BUN) GLOMERULAR FILTRATION > 60 Report ing units: RATE (test code = GFR) ml/mi n/1.73 m2 (Modified MDRD Formula)Referen ce Range: > or = 6 0 ml/min/1.73 m2 CREATININE (test code 1.00 MG/DL 0.66-1.25 N = CREAT) CALCIUM (test code = 8.5 MG/DL 8.4-10.2 N CA) UNABLE TO DRAW BLOOD, REASON: PT CARENOTIFIED PATIENT CARE STAFF: JARROD 12/16/21 AT 0638 BY Vivek Eli XR CHEST [id number] 08:16:00 [facility] 1935 Sex: M Patient Name: JOSE SALDANA Unit No: [id number] EXAMS: CPT CODE: [id number] XR CHEST 1V [id number] Portable AP chest, 1 view Location Code: D4 CLINICAL HISTORY: S/P ICD COMPARISON: 12/15/2021 COMMENT: The heart size is enlarged with left subclavian AICD. Central pulmonary edema pattern and small effusions appear slightly improved in the interval. Stable right shoulder arthroplasty. IMPRESSION: Slight improvement in mild CHF. at 0816 Reported and signed by: Jamari Berg MD CC: Keyonna Celis MD Technologist: Jamari Up, RT(R) Transcrpt Date/Tm/Trnsp: 12/16/2021 (0816) [email or web address] Orig Print D/T: S: 12/16/2021 (0819) [facility] NAME: JOSE SALDANA [address] PHYS: Keyonna Branch [place], [place] [address]XKJ: 1935 AGE: 86 SEX: M LOC: Z.350 A PHONE #: [phone] EXAM DATE: 12/16/2021 STATUS: ADM IN FAX #: [phone] RADIOLOGY NO: PAGE 1 Signed ReportGLUCOSE BEDSIDE [id number] 08:11:00 Test Item Value Reference Range Interpretation Comments GLUCOSE BEDSIDE TESTING (test code = 99 MG/DL 60-99 N GLUBED) CBC W/AUTO [id number] 08:08:00 Test Item Value Reference Range Interpretation Comments WHITE BLOOD CELL (test code = 8.1 K/MM3 3.8-9.8 N WBC) RED BLOOD CELL (test code = 3.74 M/MM3 3.95-5.67 L RBC) HEMOGLOBIN (test code = HGB) 13.1 G/DL 12.4-16.7 N HEMATOCRIT (test code = HCT) 40.3 % 35.9-49.5 N MEAN CELL VOLUME (test code = 108 fL 81.7-96.1 H MCV) MEAN CELL HGB (test code = MCH) 35.0 pg 27.6-33.2 H MEAN CELL HGB CONCETRATION 32.5 % 32.9-35.5 L (test code = MCHC) RED CELL DISTRIBUTION WIDTH 12.1 % 12.1-15.2 N (test code = RDW) PLATELET COUNT (test code = 156 K/MM3 129-368 N PLT) MEAN PLATELET VOLUME (test code 9.5 fl 7.4-10.4 N = MPV) NEUTROPHIL % (test code = NT%) 72.9 % 43-75 N IMMATURE GRANULOCYTE % (test 0.4 % 0.0-2.0 N code = IG%) LYMPHOCYTE % (test code = LY%) 13.9 % 14-44 L MONOCYTE % (test code = MO%) 10.4 % 4-13 N EOSINOPHIL % (test code = EO%) 2.2 % 0-6 N BASOPHIL % (test code = BA%) 0.2 % 0-2 N NUCLEATED RBC % (test code = 0.0 % 0-1.0 N NRBC%) NEUTROPHIL # (test code = NT#) 5.86 K/mm3 2.0-7.6 N IMMATURE GRANULOCYTE # (test 0.03 x10 3/uL 0-0.03 N code = IG#) LYMPHOCYTE # (test code = LY#) 1.12 K/mm3 1.0-3.8 N MONOCYTE # (test code = MO#) 0.84 K/mm3 0.1-0.8 H EOSINOPHIL # (test code = EO#) 0.18 K/mm3 0.0-0.2 N BASOPHIL # (test code = BA#) 0.02 K/mm3 0.0-0.2 N NUCLEATED RBC # (test code = 0.00 K/mm3 0.0-0.1 N NRBC#) UNABLE TO DRAW BLOOD, REASON: PT CARENOTIFIED PATIENT CARE STAFF: GABI POND 12/16/21 AT 0639 BY Julia EliGLUCOSE BEDSIDE [id number] 20:24:00 Test Item Value Reference Range Interpretation Comments GLUCOSE BEDSIDE TESTING (test code = 99 MG/DL 60-99 N GLUBED) GLUCOSE BEDSIDE [id number] 16:02:00 Test Item Value Reference Range Interpretation Comments GLUCOSE BEDSIDE TESTING (test code 117 MG/DL 60-99 H = GLUBED) - XR CHEST [id number] 12:07:00 [facility] : 1935 Sex: M Patient Name: JOSE SALDANA Unit No: [id number] EXAMS: CPT CODE: [id number] XR CHEST 1V [id number] HISTORY: Status post ICD Location: C3 COMPARISON:None FINDINGS: There is mild cardiomegaly. Aorticcalcifications are present. Vascularity is borderline prominent. Left subclavian pacemaker is noted with tips overlying the RA and RV. No pneumothorax. IMPRESSION: 1. Cardiomegaly with mild vascular con gestion. at 1207 Reported and signed by:Aquiles Powell MD CC: Keyonna Celis MD Technologist: MICHAEL Evans, RT(R) Transcrpt Date/Tm/Trnsp: 12/15/2021 (0289) [email or web address] [facility] NAME: JOSE SALDANA [address] [address] PHYS: [place] [address] : 1935 AGE: 86 SEX: M LOC: Erin A PHONE #: [phone] EXAM DATE: 12/15/2021 STATUS: ADM IN FAX #: [phone] RADIOLOGY NO: PAGE1 Signed ReportGLUCOSE BEDSIDE [id number] 07:29:00 Test Item Value Reference Range Interpretation Comments GLUCOSE BEDSIDE TESTING (test code = 79 MG/DL 60-99 N GLUBED) PROTHROMBIN [id number] 06:17:00 Test Item Value Reference Range Interpretation Comments PROTHROMBIN TIME 12.6 SECONDS 9.4-12.7 N PATIENT (test code = PTP) INTERNATIONAL NORMAL 1.1 0.86-1.14 N The INR is to be RATIO (test code = used only for INR) monitoring oral anticoagulantth erap y. INDICATION I NR VALUE ---- ---- ---- -------1. Prophylaxis, de ep venous thrombos is, including high risk surgery. 2.0 - 3.0 2. Prophylaxis, deep venous thrombosis, hip surgery, treatm ent for deep venous thrombosis or pulmonary prevention of systemic emboli sm in patients wit h valvular heart disease, atrial fibrillation, tissue heart va lve, or acute myocar dial infarction. 2. 0 - 3.0 3. Archives Specialist al prosthesis hear t valves, recurre nt systemic emboli sm. 3.0 - 4.5 PTT [id number] 06:17:00 Test Item Value Reference Range Interpretation Comments PTT ACTIVATED (test code = APTT) 25.2 SECONDS 26.2-35.4 L BASIC METABOLIC [id number] 06:16:00 Test Item Value Reference Range Interpretation Comments SODIUM (test code = 141 MMOL/L 137-145 N NA) POTASSIUM (test code = 4.6 MMOL/L 3.5-5.1 N K) CHLORIDE (test code = 107 MMOL/L 98-107 N CL) CARBON DIOXIDE (test 26 MMOL/L 22-30 N code = CO2) ANION GAP (test code = 13 MMOL/L 14-24 L GAP) GLUCOSE (test code = 89 MG/DL 74-106 N GLU) BLOOD UREA NITROGEN 18 MG/DL 9-20 N (test code = BUN) GLOMERULAR FILTRATION > 60 Report ing units: RATE (test code = GFR) ml/mi n/1.73 m2 (Modified MDRD Formula)Referen ce Range: > or = 6 0 ml/min/1.73 m2 CREATININE (test code 1.10 MG/DL 0.66-1.25 N = CREAT) CALCIUM (test code = 8.7 MG/DL 8.4-10.2 N CA) CBC W/AUTO [id number] 06:05:00 Test Item Value Reference Range Interpretation Comments WHITE BLOOD CELL (test code = 7.7 K/MM3 3.8-9.8 N WBC) RED BLOOD CELL (test code = 3.69 M/MM3 3.95-5.67 L RBC) HEMOGLOBIN (test code = HGB) 13.0 G/DL 12.4-16.7 N HEMATOCRIT (test code = HCT) 40.3 % 35.9-49.5 N MEAN CELL VOLUME (test code = 109 fL 81.7-96.1 H MCV) MEAN CELL HGB (test code = MCH) 35.2 pg 27.6-33.2 H MEAN CELL HGB CONCETRATION 32.3 % 32.9-35.5 L (test code = MCHC) RED CELL DISTRIBUTION WIDTH 12.3 % 12.1-15.2 N (test code = RDW) PLATELET COUNT (test code = 165 K/MM3 129-368 N PLT) MEAN PLATELET VOLUME (test code 9.3 fl 7.4-10.4 N = MPV) NEUTROPHIL % (test code = NT%) 64.1 % 43-75 N IMMATURE GRANULOCYTE % (test 0.3 % 0.0-2.0 N code = IG%) LYMPHOCYTE % (test code = LY%) 20.5 % 14-44 N MONOCYTE % (test code = MO%) 11.4 % 4-13 N EOSINOPHIL % (test code = EO%) 3.0 % 0-6 N BASOPHIL % (test code = BA%) 0.7 % 0-2 N NUCLEATED RBC % (test code = 0.0 % 0-1.0 N NRBC%) NEUTROPHIL # (test code = NT#) 4.92 K/mm3 2.0-7.6 N IMMATURE GRANULOCYTE # (test 0.02 x10 3/uL 0-0.03 N code = IG#) LYMPHOCYTE # (test code = LY#) 1.57 K/mm3 1.0-3.8 N MONOCYTE # (test code = MO#) 0.87 K/mm3 0.1-0.8 H EOSINOPHIL # (test code = EO#) 0.23 K/mm3 0.0-0.2 H BASOPHIL # (test code = BA#) 0.05 K/mm3 0.0-0.2 N NUCLEATED RBC # (test code = 0.00 K/mm3 0.0-0.1 N NRBC#) COVID 19 Asymptomatic IH [id number] 03:54:00 Test Item Value Reference Range Interpretation Comments COVID 19 NEGATIVE Negative "Negative resul ts from Asymptomatic IH AG patients with symptom (test code = onset beyondfiv e days, COVNONPUIAG) should be treat ed as presumptive, andconfirmation with a molecular assay , if necessary forpa tient management may be performed. Nega tive results do notr ule out COVID-19 and sh ould not be used as the sole basisfor treatm ent or patient managem ent decisions, includinginfect ion control decisio ns. Negative result s should beconsidered in the context of a pa tients recent exposure s,history, and the presenc e of clinical signs and symptomsconsist ent with COVID-19.This t est detects both vi able andnon-viable S ARS-CoV and SARS CoV-2. Test performance dep endson the amount of virus (antigen) in the sample." BASIC METABOLIC [id number] 07:26:00 Test Item Value Reference Range Interpretation Comments SODIUM (test code = 139 MMOL/L 137-145 N NA) POTASSIUM (test code = 4.0 MMOL/L 3.5-5.1 N K) CHLORIDE (test code = 109 MMOL/L 98-107 H CL) CARBON DIOXIDE (test 25 MMOL/L 22-30 N code = CO2) ANION GAP (test code = 9 MMOL/L 14-24 L GAP) GLUCOSE (test code = 81 MG/DL 74-106 N GLU) BLOOD UREA NITROGEN 15 MG/DL 9-20 N (test code = BUN) GLOMERULAR FILTRATION > 60 Report ing units: RATE (test code = GFR) ml/mi n/1.73 m2 (Modified MDRD Formula)Referen ce Range: > or = 6 0 ml/min/1.73 m2 CREATININE (test code 1.00 MG/DL 0.66-1.25 N = CREAT) CALCIUM (test code = 7.8 MG/DL 8.4-10.2 L CA) [id number] 07:26:00 Test Item Value Reference Range Interpretation Comments TROPONIN-I (test code = TROPI) < 0.012 NG/ML 0.012-0.033 L CBC W/AUTO [id number] 06:53:00 Test Item Value Reference Range Interpretation Comments WHITE BLOOD CELL (test code = 6.8 K/MM3 3.8-9.8 N WBC) RED BLOOD CELL (test code = 3.79 M/MM3 3.95-5.67 L RBC) HEMOGLOBIN (test code = HGB) 13.5 G/DL 12.4-16.7 N HEMATOCRIT (test code = HCT) 41.5 % 35.9-49.5 MEAN CELL VOLUME (test code = 110 fL 81.7-96.1 H MCV) MEAN CELL HGB (test code = MCH) 35.6 pg 27.6-33.2 H MEAN CELL HGB CONCETRATION 32.5 % 32.9-35.5 L (test code = MCHC) RED CELL DISTRIBUTION WIDTH 12.2 % 12.1-15.2 N (test code = RDW) PLATELET COUNT (test code = 166 K/MM3 129-368 N PLT) MEAN PLATELET VOLUME (test code 9.3 fl 7.4-10.4 N = MPV) NEUTROPHIL % (test code = NT%) 65.3 % 43-75 N IMMATURE GRANULOCYTE % (test 0.3 % 0.0-2.0 N code = IG%) LYMPHOCYTE % (test code = LY%) 22.3 % 14-44 N MONOCYTE % (test code = MO%) 8.9 % 4-13 N EOSINOPHIL % (test code = EO%) 2.6 % 0-6 N BASOPHIL % (test code = BA%) 0.6 % 0-2 N NUCLEATED RBC % (test code = 0.0 % 0-1.0 N NRBC%) NEUTROPHIL # (test code = NT#) 4.46 K/mm3 2.0-7.6 N IMMATURE GRANULOCYTE # (test 0.02 x10 3/uL 0-0.03 N code = IG#) LYMPHOCYTE # (test code = LY#) 1.52 K/mm3 1.0-3.8 N MONOCYTE # (test code = MO#) 0.61 K/mm3 0.1-0.8 N EOSINOPHIL # (test code = EO#) 0.18 K/mm3 0.0-0.2 N BASOPHIL # (test code = BA#) 0.04 K/mm3 0.0-0.2 N NUCLEATED RBC # (test code = 0.00 K/mm3 0.0-0.1 N NRBC#) DIFFERENTIAL [id number] 06:53:00 Test Item Value Reference Range Interpretation Comments RBC MORPHOLOGY REQUIRED (test code = RBCM) PLATELET ESTIMATE (test code = PLTEST) ADEQUATE PLATELET MORPHOLOGY (test code = NORMAL PLTMORPH) [id number] 01:42:00 Test Item Value Reference Range Interpretation Comments TROPONIN-I (test code = TROPI) < 0.012 NG/ML 0.012-0.033 L THYROID STIMULATING [id number] 18:47:00 Test Item Value Reference Range Interpretation Comments THYROID STIMULATING 1.310 MIU/L 0.465-4.68 N Please b e aware that HORMONE (test code = bias re sults for TSH TSH) may occur forpa tient who are taking Biotin suppleme nts. COMPREHENSIVE METABOLIC [id number] 17:48:00 Test Item Value Reference Range Interpretation Comments SODIUM (test code 140 MMOL/L 137-145 N = NA) POTASSIUM (test 4.3 MMOL/L 3.5-5.1 N code = K) CHLORIDE (test 107 MMOL/L 98-107 N code = CL) CARBON DIOXIDE 26 MMOL/L 22-30 N (test code = CO2) GLUCOSE (test 92 MG/DL 74-106 N code = GLU) BLOOD UREA 15 MG/DL 9-20 N NITROGEN (test code = BUN) GLOMERULAR > 60 Reporting units : FILTRATION RATE ml/min/1.73 m2 (Modified (test code = GFR) MDRD Formu la)Reference Range: > or = 6 0 ml/min/1.73 m2 CREATININE (test 1.00 MG/DL 0.66-1.25 N code = CREAT) TOTAL PROTEIN 6.3 G/DL 6.2-7.6 N [facility] Clinical Diagnostic (test code = has made us juan re of PROT) newinformation regarding the potential i nterference ofEltrombopag ( a bone marrow stimulan t used to treatthrombocyt onmenia and aplastic anemia ) with specific assays on the Vitros 5600 of which Total Protein is one of thoseassays per formed in our lab.Interfe rence testing perform ed at Ortho determined that Eltrombopag does interfere with Vitros Total Protein asfollowsEltrom bopag Interference fo r Vitros Product Total Protein:======= Eltrombopag Max Observed Av g. BiasConcentrati on Concentration Concentration== ==== 2.5 mg/dl 6.0 g/dl +0.41 +0.34 3.5 mg/dl 6.0 g /dl +0.50 +0.45 5 mg/dl 6 .0 g/dl +0.73 +0.65 2.5 mg/dl 8.0 g/dl +0.44 +0.4 1 3.5 mg/dl 8.0 g/dl +0.55 +0.52 5 mg/dl 8.0 g/dl +0.86 +0.77 ALBUMIN (test 3.5 G/DL 3.5-5.0 N code = ALB) CALCIUM (test 8.5 MG/DL 8.4-10.2 N code = CA) BILIRUBIN TOTAL 1.5 MG/DL 0.2-1.3 H Eltrombopag Interference (test code = for Vitros Prod uct TBil, BILT) BuBc: Assa y Eltrombopag An alyte/ Max Observed Avg. B ias Concentration C oncentration Concentration== ====TBil 7mg/dl TBil/ 1. 2mg/dl +0.23mg.dl +0.2 0mg/dlBuBc 3.5mg/dl Bu/0.8 mg/dl +0.25mg/dl +0.2 4mg/dlBuBc 7 mg/dl Bu/14.2mg /dl +0.38mg/dl +0.2 5mg/dlBuBc 5mg/dl Bc/0mg/d l +0.25mg/dl +0.15mg/dlBuBc 3.5mg/dl Bc/2.8mg/dl +0. 25mg/dl +0.23mg/dl SGOT/AST (test 18 UNITS/L 17-59 N code = AST) SGPT/ALT (test 10 UNITS/L 0-49 N code = ALT) ALKALINE 56 UNITS/L 38-126 N PHOSPHATASE (test code = ALKP) NT PRO-BRAIN NATRIURETIC [id number] 17:48:00 Test Item Value Reference Range Interpretation Comments NT PRO-BRAIN NATRIURETIC PEPTI 728.0 pg/mL 0-450 H (test code = PROBNP) [id number] 17:48:00 Test Item Value Reference Range Interpretation Comments TROPONIN-I (test code = TROPI) < 0.012 NG/ML 0.012-0.033 L CBC W/AUTO [id number] 17:19:00 Test Item Value Reference Range Interpretation Comments WHITE BLOOD CELL (test code = 7.4 K/MM3 3.8-9.8 N WBC) RED BLOOD CELL (test code = 3.45 M/MM3 3.95-5.67 L RBC) HEMOGLOBIN (test code = HGB) 12.3 G/DL 12.4-16.7 L HEMATOCRIT (test code = HCT) 37.3 % 35.9-49.5 N MEAN CELL VOLUME (test code = 108 fL 81.7-96.1 H MCV) MEAN CELL HGB (test code = MCH) 35.7 pg 27.6-33.2 H MEAN CELL HGB CONCETRATION 33.0 % 32.9-35.5 N (test code = MCHC) RED CELL DISTRIBUTION WIDTH 12.2 % 12.1-15.2 N (test code = RDW) PLATELET COUNT (test code = 169 K/MM3 129-368 N PLT) MEAN PLATELET VOLUME (test code 9.4 fl 7.4-10.4 N = MPV) NEUTROPHIL % (test code = NT%) 59.8 % 43-75 N IMMATURE GRANULOCYTE % (test 0.1 % 0.0-2.0 N code = IG%) LYMPHOCYTE % (test code = LY%) 26.6 % 14-44 N MONOCYTE % (test code = MO%) 9.8 % 4-13 N EOSINOPHIL % (test code = EO%) 3.0 % 0-6 N BASOPHIL % (test code = BA%) 0.7 % 0-2 N NUCLEATED RBC % (test code = 0.0 % 0-1.0 N NRBC%) NEUTROPHIL # (test code = NT#) 4.45 K/mm3 2.0-7.6 N IMMATURE GRANULOCYTE # (test 0.01 x10 3/uL 0-0.03 N code = IG#) LYMPHOCYTE # (test code = LY#) 1.98 K/mm3 1.0-3.8 N MONOCYTE # (test code = MO#) 0.73 K/mm3 0.1-0.8 N EOSINOPHIL # (test code = EO#) 0.22 K/mm3 0.0-0.2 H BASOPHIL # (test code = BA#) 0.05 K/mm3 0.0-0.2 N NUCLEATED RBC # (test code = 0.00 K/mm3 0.0-0.1 N NRBC#)
[2023-06-02] MEDS ORDERED: ONDANSETRON 4 MG/2 ML VIAL ONE (15:57)
[2023-06-02] MEDS ORDERED: MORPHINE 2 MG/ML SYR ONE (15:57)
[2023-06-02] MEDS ORDERED: propofoL 200 MG/20 ML VIAL IV ONE (16:58)
--- NOTE | 2023-06-02 17:47 | EDPHYS ---
Physician Documentation [facility] Name: Charlie Hart Age: 88 yrs Sex: Male : 1935 Arrival Date: 06/02/2023 Time: 15:23 Bed 3 Private MD: ED Physician Anthony Barragan HPI: 06/02 15:35 This 88 yrs old Male presents to ER via EMS with complaints of left hip dislocation. rn 15:35 The patient or guardian reports decreased range of motion, deformity. The complaints rn affect the Left hip. 15:36 Modifying factors: The symptoms are alleviated by remaining still, the symptoms are rn aggravated by any movement. Associated signs and symptoms: Pertinent positives: None. Pertinent negatives: None. Severity of symptoms: At their worst the symptoms were moderate, in the emergency department the symptoms have improved. The patient has experienced similar episodes in the past. Patient reports has had 5 dislocations in the past, was bending down to catch something that fell and dislocated his left hip. Reports last ate at lunchtime and had small amount of chicken swelling. No fall or direct trauma. Declined pain medications from EMS.. Historical: - Allergies: 15:35 No Known Allergies; mb9 - PMHx: 15:35 CAD; chronic kidney disease; CVA; GERD; Hyperlipidemia; Hypertension; macular mb9 degeneration; osteoarthritis; Pre-Diabetes; Prostate Cancer; stroke; West Nile Virus; - PSHx: 15:35 cataract repair; Cholecystectomy; hip/shoulder replacement; pacemaker (hip/shoulder mb9 replacement); - Immunization history:: Adult Immunizations up to date. - Social history:: Smoking status: Patient denies any tobacco usage or history of. - Family history:: not pertinent. - Hospitalizations: : No recent hospitalization is reported. ROS: 15:36 Constitutional: Negative for fever, chills, and weight loss, Cardiovascular: Negative rn for chest pain, palpitations, and edema, Respiratory: Negative for shortness of breath, cough, wheezing, and pleuritic chest pain, Abdomen/GI: Negative for abdominal pain, nausea, vomiting, diarrhea, and constipation, Back: Negative for injury and pain, MS/Extremity: Positive for left hip dislocation Exam: 15:36 Constitutional: This is a well developed, well nourished patient who is awake, alert, rn and in no acute distress. MS/ Extremity: Pulses equal, no cyanosis. Left leg internally rotated and shortened with painful range of motion of left hip. No cyanosis. Vital Signs: 15:33 BP 143 / 76; Pulse 67; Resp 18; Temp 98(O); Pulse Ox 100% ; Weight 77.11 kg; Height 5 mb9 ft. 8 in. ; Pain 4/10; 16:11 BP 158 / 91; Pulse 65; Resp 18; Pulse Ox 100% on R/A; mb9 16:55 BP 148 / 77; Pulse 88; Resp 16; Pulse Ox 98% on R/A; mb9 17:00 BP 140 / 89; Pulse 86; Resp 18; Pulse Ox 100% on R/A; mb9 17:05 BP 125 / 73; Pulse 90; Resp 17; Pulse Ox 100% on R/A; mb9 17:30 BP 125 / 84; Pulse 83; Resp 16; Pulse Ox 99% on R/A; mb9 17:47 BP 133 / 78; Pulse 85; Resp 18; Pulse Ox 100% on R/A; mb9 15:33 Body Mass Index 25.85 (77.11 kg, 172.72 cm) mb9 15:33 Pain Scale: Adult mb9 Procedures: 17:06 Reduction: of the left hip, using traction, manipulation, Patient tolerated well. Post rn reduction film - reveals normal alignment. Left hip reduced using moderate sedation, flexion and anterior traction applied to femur/hip with countertraction. Palpable and audible clunk. Postreduction film normal with reduction successful. Moderate sedation: Pre-procedure assessment: the patient has been NPO 5 hour(s) prior to arrival, ASA physical classification: II - mild/mod systemic disease that does not interfere with daily routines, Airway assessment: able to hyperextend neck, able to maintain airway, can open mouth without difficulty, Monitoring during procedure: monitoring coordinator, continuous pulse oximetry, nurse at bedside at all times, Medications employed: 50 mg propofol, Post-procedure assessment: the patient is moderately sedated, Respiratory status: even and unlabored, a reversal agent was not used, Immediately after procedure patient arousable and holds conversation. Tolerated procedure well, no complications. MDM: 15:28 Patient medically screened. rn 17:06 Differential diagnosis: hip fracture, femoral neck fracture, Hip dislocation. rn 17:46 Data reviewed: vital signs, nurses notes, radiologic studies, plain films, and as a rn result, I will discharge patient. Independent interpretation of the following test(s) in the Emergency Department X-Ray: My interpretation is X-ray left hip shows posterior lateral dislocation of prosthesis per my interpretation. Counseling: I had a detailed discussion with the patient and/or guardian regarding the historical points, exam findings, and any diagnostic results supporting the discharge/admit diagnosis, radiology results, the need for outpatient follow up, to return to the emergency department if symptoms worsen or persist or if there are any questions or concerns that arise at home. Response to treatment: the patient's symptoms have markedly improved after treatment, Able to ambulate with a walker, reports minimal pain, and as a result, I will discharge patient. Special discussion: I discussed with the patient/guardian in detail that at this point there is no indication for admission to the hospital. It is understood, however, that if the symptoms persist or worsen the patient needs to return immediately for re-evaluation. Based on the history and exam findings, there is no indication for further emergent testing or inpatient evaluation. I discussed with the patient/guardian the need to see the orthopedic surgeon for further evaluation of the symptoms. 06/02 15:28 Order name: XRAY Hip LEFT 2 view rn 06/02 17:03 Order name: Hip Left 1 View XRAY bd 06/02 15:28 Order name: IV Start; Complete Time: 15:32 rn 06/02 15:28 Order name: NPO; Complete Time: 15:37 rn 06/02 15:28 Order name: Cardiac monitoring; Complete Time: 15:37 rn 06/02 15:28 Order name: O2 Sat Monitoring; Complete Time: 15:37 rn Administered Medications: 15:45 Drug: Ondansetron IVP 4 mg IVP once; over 2 minutes Route: IVP; Site: left antecubital; mb9 17:10 Follow up: Response: No adverse reaction mb9 15:48 Drug: morphine IVP or IV 2 mg IVP once over 4 mins Route: IVP; Infused Over: 4 mins; mb9 Site: left antecubital; 17:10 Follow up: Response: No adverse reaction mb9 16:55 Drug: Propofol IVP 200 mg IVP once; Document RASS score. {Note: Dr. Barragan administered mb9 3 mL. RASS 0.} Route: IVP; Site: left antecubital; 16:56 Follow up: Dr. Barragan administered 2 mL. RASS 0 mb9 17:29 Follow up: Response: No adverse reaction mb9 Disposition Summary: 06/02/23 17:46 Discharge Ordered Notes: Location: Home rn Problem: new rn Symptoms: are resolved rn Condition: Stable rn Diagnosis - Dislocation of internal left hip prosthesis, initial encounter rn Followup: rn - With: Private Physician - When: As needed - Reason: Recheck today's complaints, Re-evaluation by your physician Discharge Instructions: - Discharge Summary Sheet rn - Hip Dislocation rn - Closed Reduction for Prosthetic Hip Joint Dislocation rn Forms: - Medication Reconciliation Form rn - Thank You Letter rn - Antibiotic ornament maker hand - Prescription Opioid Use rn - Patient Portal Instructions rn - Leadership Thank You Letter rn Signatures: Dispatcher [employer] Anthony Sanchez MD MD rn Breneman, Mary Beth, RN RN mb9
--- NOTE | 2023-06-02 17:47 | ER ---
Nurse's Notes [facility] Name: Charlie Hart Age: 88 yrs Sex: Male : 1935 Arrival Date: 06/02/2023 Time: 15:23 Bed 3 Private MD: Diagnosis: Dislocation of internal left hip prosthesis, initial encounter Presentation: 06/02 15:33 Chief complaint: EMS states: "toned out for left hip dislocation after bending down to mb9 slat pickler blueberries. Pt states this is the 5th time this has occurred. 20 g to left AC started.". Coronavirus screen: Vaccine status: Patient reports receiving the 2nd dose of the covid vaccine. Ebola Screen: No symptoms or risks identified at this time. Initial Sepsis Screen: Does the patient meet any 2 criteria? No. Patient's initial sepsis screen is negative. Does the patient have a suspected source of infection? No. Patient's initial sepsis screen is negative. Risk Assessment: Do you want to hurt yourself or someone else? Patient reports no desire to harm self or others. Onset of symptoms was June 02, 2023. 15:33 Method Of Arrival: [facility]: [facility] 15:33 Acuity: CLAUDINE 2 mb9 Triage Assessment: 15:35 General: Appears in no apparent distress. Behavior is calm, cooperative. Pain: mb9 Complains of pain in left leg Pain currently is 4 out of 10 on a pain scale. Quality of pain is described as throbbing. EENT: No signs and/or symptoms were reported regarding the EENT system. Neuro: Zhu Agitation-Sedation Scale (RASS): 0 - Alert and Calm Level of Consciousness is awake, alert, obeys commands, Oriented to person, place, time, situation, Appropriate for age. Cardiovascular: Patient's skin is warm and dry. Respiratory: Airway is patent Respiratory effort is even, unlabored, Respiratory pattern is regular, symmetrical, Breath sounds are clear bilaterally. GI: No signs and/or symptoms were reported involving the gastrointestinal system. : No signs and/or symptoms were reported regarding the genitourinary system. Derm: Skin is pink, warm \\T\\ dry. Musculoskeletal: Bony deformity noted of left hip. Historical: - Allergies: 15:35 No Known Allergies; mb9 - PMHx: 15:35 CAD; chronic kidney disease; CVA; GERD; Hyperlipidemia; Hypertension; macular mb9 degeneration; osteoarthritis; Pre-Diabetes; Prostate Cancer; stroke; West Nile Virus; - PSHx: 15:35 cataract repair; Cholecystectomy; hip/shoulder replacement; pacemaker (hip/shoulder mb9 replacement); - Immunization history:: Adult Immunizations up to date. - Social history:: Smoking status: Patient denies any tobacco usage or history of. - Family history:: not pertinent. - Hospitalizations: : No recent hospitalization is reported. Screenin:36 [facility] ED Fall Risk Assessment (Adult) History of falling in the last 3 months, mb9 including since admission No falls in past 3 months (0 pts) Confusion or Disorientation No (0 pts) Intoxicated or Sedated No (0 pts) Impaired Gait Yes (1 pt) Mobility Assist Device Used No (0 pt) Altered Elimination No (0 pt) Score/Fall Risk Level 0 - 2 = Low Risk Oriented to surroundings, Maintained a safe environment, Educated pt \\T\\ family on fall prevention, incl call for assistance when getting out of bed. Abuse screen: Denies threats or abuse. Nutritional screening: No deficits noted. Tuberculosis screening: No symptoms or risk factors identified. Assessment: 15:36 Reassessment: see triage. mb9 15:42 Reassessment: Consent for conscious sedation and hip reduction signed by pt. mb9 16:45 Reassessment: No changes from previously documented assessment. Patient and/or family mb9 updated on plan of care and expected duration. Pain level reassessed. Patient is alert, oriented x 3, equal unlabored respirations, skin warm/dry/pink. 16:55 Reassessment: Conscious sedation initiated. See Conscious sedation flowsheet for more mb9 information. 17:47 Reassessment: Patient and/or family updated on plan of care and expected duration. Pain mb9 level reassessed. Patient is alert, oriented x 3, equal unlabored respirations, skin warm/dry/pink. Patient states feeling better. Patient states symptoms have improved. 17:47 Reassessment: pt able to ambulate and denies pain. mb9 Vital Signs: 15:33 BP 143 / 76; Pulse 67; Resp 18; Temp 98(O); Pulse Ox 100% ; Weight 77.11 kg; Height 5 mb9 ft. 8 in. ; Pain 4/10; 16:11 BP 158 / 91; Pulse 65; Resp 18; Pulse Ox 100% on R/A; mb9 16:55 BP 148 / 77; Pulse 88; Resp 16; Pulse Ox 98% on R/A; mb9 17:00 BP 140 / 89; Pulse 86; Resp 18; Pulse Ox 100% on R/A; mb9 17:05 BP 125 / 73; Pulse 90; Resp 17; Pulse Ox 100% on R/A; mb9 17:30 BP 125 / 84; Pulse 83; Resp 16; Pulse Ox 99% on R/A; mb9 17:47 BP 133 / 78; Pulse 85; Resp 18; Pulse Ox 100% on R/A; mb9 15:33 Body Mass Index 25.85 (77.11 kg, 172.72 cm) mb9 15:33 Pain Scale: Adult mb9 ED Course: 15:27 Patient arrived in ED. mb9 15:28 Anthony Barragan MD is Attending Physician. rn 15:32 Maintain EMS IV. Gauge \\T\\ site: 20g left forearm. ls5 15:35 Triage completed. mb9 15:35 Arm band placed on. mb9 15:36 Placed in gown. Bed in low position. Call light in reach. Side rails up X 1. Client mb9 placed on continuous cardiac and pulse oximetry monitoring. NIBP monitoring applied. busboy on. 15:37 Elizabeth Duncan, CARRILLO is Primary Nurse. mb9 15:37 No provider procedures requiring assistance completed. mb9 16:12 XRAY Hip LEFT 2 view In Process Unspecified. EDMS 17:16 Hip Left 1 View XRAY In Process Unspecified. EDMS 17:48 IV discontinued, intact, bleeding controlled, No redness/swelling at site. Pressure mb9 dressing applied. Administered Medications: 15:45 Drug: Ondansetron IVP 4 mg IVP once; over 2 minutes Route: IVP; Site: left antecubital; mb9 17:10 Follow up: Response: No adverse reaction mb9 15:48 Drug: morphine IVP or IV 2 mg IVP once over 4 mins Route: IVP; Infused Over: 4 mins; mb9 Site: left antecubital; 17:10 Follow up: Response: No adverse reaction mb9 16:55 Drug: Propofol IVP 200 mg IVP once; Document RASS score. {Note: Dr. Barragan administered mb9 3 mL. RASS 0.} Route: IVP; Site: left antecubital; 16:56 Follow up: Dr. Barragan administered 2 mL. RASS 0 mb9 17:29 Follow up: Response: No adverse reaction mb9 Medication: 15:37 VIS not applicable for this client. mb9 Intake: Outcome: 17:46 Discharge ordered by . rn 17:53 Discharged to home via wheelchair, with family, mb9 17:53 Condition: stable 17:53 Discharge instructions given to patient, Instructed on discharge instructions, follow up and referral plans. Demonstrated understanding of instructions, follow-up care, 17:54 Patient left the ED. mb9 Signatures: Dispatcher [employer] EDMS Anthony Barragan MD MD rn Breneman, Elizabeth Gtz RN RN [id number] Rolf Khan ls5 Corrections: (The following items were deleted from the chart) 17:09 16:55 Reassessment: Conscious sedation initiated mb9 mb9
[2023-06-02 17:59] VITALS: TEMP 98
--- NOTE | 2023-06-02 18:04 | RAD REPORT ---
EXAM DESCRIPTION: RAD - Hip Left 2 View - 06/02/2023 4:10 pm CLINICAL HISTORY: Pain;Deformity COMPARISON: Hip Left 2 View dated 06/01/2019; Hip Left 2 View dated 06/01/2019; Hip Left 1 View dated 06/02/2023 TECHNIQUE: Left hip, AP and frogleg views of the left hip. FINDINGS: Posterosuperior dislocation of the femoral head component of the left total hip arthroplas ty relative to the acetabular cup. Ovoid osseous density above the acetabular cup is stable in appear ance. Heterogeneous osseous densities in the region of the ischial tuberosity, raise concern for a fr acture of the ischium, although diffuse osteopenia limits evaluation. Partially visualized ventral he rnia mesh tacks. 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 Heterogeneity in the region of the ischial tuberosity, raises concern for a fracture of the ischium. Diffuse osteopenia limits evaluation. This can be further evaluated by CT of the pelvis.
[2023-06-02 18:06] VITALS: BP 133/78; O2SAT 100
--- NOTE | 2023-06-02 18:06 | RAD REPORT ---
EXAM DESCRIPTION: RAD - Hip Left 1 View - 06/02/2023 5:14 pm CLINICAL HISTORY: post reduction COMPARISON: Hip Left 2 View dated 06/02/2023; Hip Left 2 View dated 06/01/2019 TECHNIQUE: Single AP view of the left hip. FINDINGS: Satisfactory alignment of the left hip arthroplasty components following closed reduction. Heterogeneity in the region of the ischium and inferior left pubic ramus, not well evaluated. Vascul ar calcifications and ventral hernia repair mesh tacks present. IMPRESSION: Improved alignment following closed reduction as above.
== END 2023-06-02 17:54 | disposition home or self-care (01) ==
LOC: ER 15:23
PROC: 0SSBXZZ Reposition Left Hip Joint, External Approach (ICD-10-PCS; principal; 2023-06-02)
DX: T84.021A Dislocation of internal left hip prosthesis, initial encounter (principal); Z95.0 Presence of cardiac pacemaker
CPT/HCPCS: 73502; 73501; 96375; 96374; 99285; 27252; J2704; J2270; J2405

== ENCOUNTER → 2023-08-04 | Emergency (ER) | payer OTHER ==
[~2023-08-04] MED LIST: HEPARIN 5000 UNIT/ML 1 ML VIAL ONE; HEPARIN/D5W 25,000 UNIT/500 ML BAG IV ONE; ONDANSETRON 4 MG/2 ML VIAL ONE; TRAMADOL HCL 50 MG TAB ONE
--- OUTSIDE RECORDS SUMMARY | 2023-08-04 23:11 | XMS REPORT | Continuity of Care Document ---
Author Name Unknown Address [address] [facility] [address] [place] [address] [facility] Address [address] [facility] 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 Role Phone Jamari Carrero Primary Care Physician RADHA Attending Clinician Unavailable Fernando Harris MD Attending Clinician [phone] Jamari Carrero Attending Clinician [phone] RADHA Admitting Clinician Unavailable Payers Payer Name Policy Type Policy Number Effective Date Expirati on Date Source [employer]ET[employer] MEDICAL [id number] 2015 00:00:00 AETNA (PPO) [id number] 2022 00:00:00 AETNA (INDEMNITY) [id number] 2000 00:00:00 2022 00:00:00 [place]: [employer] [id number] 2000 00:00:00 Problems Condition Name Condition Details Condition Category Status Onset Date Resolution Date Last Treatment Date Treating Clinician Comments Source 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 Problem Active 2022-07 00:00: 00 [facility] Dislocatio n of hip joint Dislocatio n of Hip Joint Problem Active 2022-07 00:00: 00 [facility] Macrocytic anemia Macrocytic Anemia Problem Active 07-30 00:00: 00 [facility] Chronic kidney disease stage 3B Chronic Kidney Disease Stage 3B Problem Active 2021-07 219 [facility]: [facility] Left bundle branch block Left Bundle Branch Block Problem Active 01-11 00:00: 00 [facility] 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 Problem Active 01-11 00:00: 00 [facility] Aortic stenosis, non-rheuma tic Aortic Stenosis, Non-rheuma tic Problem Active 01-11 00:00: 00 [facility] 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 10-03 00:00: 00 [facility] 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 Problem Active 01-16 00:00: 00 [facility] Chronic pain Chronic Pain Problem Active 01-09 00:00: 00 [facility] Hyperchole sterolemia Hyperchole sterolemia Problem Active 08-19 00:00: 00 [facility] Coronary arterioscl erosis Coronary Arterioscl erosis Problem Active 08-19 00:00: 00 [facility] Arthritis Arthritis Problem Active 08-19 00:00: 00 [facility] Fatigue Fatigue Problem Active 08-19 00:00: 00 [facility] History of meningitis History of Meningitis Problem Active 08-19 00:00: 00 [facility] History of cerebrovas cular accident History of Cerebrovas cular Accident Problem Active 08-19 00:00: 00 [facility] Social History Social Habit Start Date Stop Date Quantity Comments Source Exposure to SARS-CoV-2 (event) 2022 00:00:00 2022-04-22 08:33:00 Not sure [facility] Tobacco use and exposure 2022-04-22 00:00:00 2022-04-22 00:00:00 Smokeless tobacco non-user [facility] Alcohol intake 2022-04-22 00:00:00 2022-04-22 00:00:00 Lifetime non-drinker (finding) [facility] Sex Assigned At 1935 00:00:00 1935 00:00:00 [facility] Smoking Status Start Date Stop Date Source Former Smoker [facility] Never smoked tobacco [facility] Medications Ordered Medication Name Filled Medication Name Start Date Stop Date Current Medication? Ordering Clinician Indication Dosage Frequency Signature (SIG) Comments Components Source atorvastati n 10 mg tablet TAKE 1 TABLET BY MOUTH AT BEDTIME atorvastati n 10 mg tablet TAKE 1 TABLET BY MOUTH AT BEDTIME No atorvastat in 10 mg tablet TAKE 1 TABLET BY MOUTH AT BEDTIME [facility] cephalexin 500 mg capsule TAKE 1 CAPSULE BY MOUTH TWICE DAILY WITH FOOD FOR 5 DAYS cephalexin 500 mg capsule TAKE 1 CAPSULE BY MOUTH TWICE DAILY WITH FOOD FOR 5 DAYS No cephalexin 500 mg capsule TAKE 1 CAPSULE BY MOUTH TWICE DAILY WITH FOOD FOR 5 DAYS [facility] clopidogrel 75 mg tablet TAKE 1 TABLET BY MOUTH DAILY clopidogrel 75 mg tablet TAKE 1 TABLET BY MOUTH DAILY No clopidogre l 75 mg tablet TAKE 1 TABLET BY MOUTH DAILY [facility] isosorbide mononitrate ER 30 mg tablet,exte nded release 24 hr TAKE 1 TABLET BY MOUTH EVERY DAY isosorbide mononitrate ER 30 mg tablet,exte nded release 24 hr TAKE 1 TABLET BY MOUTH EVERY DAY No isosorbide mononitrat e ER 30 mg tablet,ext ended release 24 hr TAKE 1 TABLET BY MOUTH EVERY DAY [facility] metoprolol succinate ER 25 mg tablet,exte nded release 24 hr TAKE 1 TABLET BY MOUTH EVERY DAY metoprolol succinate ER 25 mg tablet,exte nded release 24 hr TAKE 1 TABLET BY MOUTH EVERY DAY No metoprolol succinate ER 25 mg tablet,ext ended release 24 hr TAKE 1 TABLET BY MOUTH EVERY DAY [facility] tramadol 50 mg tablet TAKE 1 TABLET BY MOUTH EVERY DAY NEEDED tramadol 50 mg tablet TAKE 1 TABLET BY MOUTH EVERY DAY NEEDED No tramadol 50 mg tablet TAKE 1 TABLET BY MOUTH EVERY DAY NEEDED [facility] atorvastati n 10 mg tablet TAKE 1 TABLET BY MOUTH AT BEDTIME atorvastati n 10 mg tablet TAKE 1 TABLET BY MOUTH AT BEDTIME No atorvastat in 10 mg tablet TAKE 1 TABLET BY MOUTH AT BEDTIME [facility] clopidogrel 75 mg tablet TAKE 1 TABLET BY MOUTH DAILY clopidogrel 75 mg tablet TAKE 1 TABLET BY MOUTH DAILY No clopidogre l 75 mg tablet TAKE 1 TABLET BY MOUTH DAILY [facility] isosorbide mononitrate ER 30 mg tablet,exte nded release 24 hr TAKE 1 TABLET BY MOUTH EVERY DAY isosorbide mononitrate ER 30 mg tablet,exte nded release 24 hr TAKE 1 TABLET BY MOUTH EVERY DAY No isosorbide mononitrat e ER 30 mg tablet,ext ended release 24 hr TAKE 1 TABLET BY MOUTH EVERY DAY [facility] Low Dose Aspirin 81 mg tablet,emily yed release Take 1 tablet every day by oral route. Low Dose Aspirin 81 mg tablet,emily yed release Take 1 tablet every day by oral route. No 1 Q1D Low Dose Aspirin 81 mg tablet,del ayed release Take 1 tablet every day by oral route. [facility] metoprolol succinate ER 25 mg tablet,exte nded release 24 hr TAKE 1 TABLET BY MOUTH EVERY DAY metoprolol succinate ER 25 mg tablet,exte nded release 24 hr TAKE 1 TABLET BY MOUTH EVERY DAY No metoprolol succinate ER 25 mg tablet,ext ended release 24 hr TAKE 1 TABLET BY MOUTH EVERY DAY [facility] tramadol 50 mg tablet TAKE 1 TABLET BY MOUTH DAILY NEEDED FOR PAIN tramadol 50 mg tablet TAKE 1 TABLET BY MOUTH DAILY NEEDED FOR PAIN No tramadol 50 mg tablet TAKE 1 TABLET BY MOUTH DAILY NEEDED FOR PAIN [facility] atorvastati n 10 mg tablet TAKE 1 TABLET BY MOUTH AT BEDTIME atorvastati n 10 mg tablet TAKE 1 TABLET BY MOUTH AT BEDTIME No atorvastat in 10 mg tablet TAKE 1 TABLET BY MOUTH AT BEDTIME [facility] clopidogrel 75 mg tablet TAKE 1 TABLET BY MOUTH DAILY clopidogrel 75 mg tablet TAKE 1 TABLET BY MOUTH DAILY No clopidogre l 75 mg tablet TAKE 1 TABLET BY MOUTH DAILY [facility] isosorbide mononitrate ER 30 mg tablet,exte nded release 24 hr TAKE 1 TABLET BY MOUTH EVERY DAY isosorbide mononitrate ER 30 mg tablet,exte nded release 24 hr TAKE 1 TABLET BY MOUTH EVERY DAY No isosorbide mononitrat e ER 30 mg tablet,ext ended release 24 hr TAKE 1 TABLET BY MOUTH EVERY DAY [facility] Low Dose Aspirin 81 mg tablet,emily yed release Take 1 tablet every day by oral route. Low Dose Aspirin 81 mg tablet,emily yed release Take 1 tablet every day by oral route. No 1 Q1D Low Dose Aspirin 81 mg tablet,del ayed release Take 1 tablet every day by oral route. [facility] metoprolol succinate ER 25 mg tablet,exte nded release 24 hr TAKE 1 TABLET BY MOUTH EVERY DAY metoprolol succinate ER 25 mg tablet,exte nded release 24 hr TAKE 1 TABLET BY MOUTH EVERY DAY No metoprolol succinate ER 25 mg tablet,ext ended release 24 hr TAKE 1 TABLET BY MOUTH EVERY DAY [facility] tramadol 50 mg tablet TAKE 1 TABLET BY MOUTH DAILY NEEDED FOR PAIN tramadol 50 mg tablet TAKE 1 TABLET BY MOUTH DAILY NEEDED FOR PAIN No tramadol 50 mg tablet TAKE 1 TABLET BY MOUTH DAILY NEEDED FOR PAIN [facility] atorvastati n 10 mg tablet TAKE 1 TABLET BY MOUTH AT BEDTIME atorvastati n 10 mg tablet TAKE 1 TABLET BY MOUTH AT BEDTIME No atorvastat in 10 mg tablet TAKE 1 TABLET BY MOUTH AT BEDTIME [facility] clopidogrel 75 mg tablet TAKE 1 TABLET BY MOUTH DAILY clopidogrel 75 mg tablet TAKE 1 TABLET BY MOUTH DAILY No clopidogre l 75 mg tablet TAKE 1 TABLET BY MOUTH DAILY [facility] isosorbide mononitrate ER 30 mg tablet,exte nded release 24 hr TAKE 1 TABLET BY MOUTH EVERY DAY isosorbide mononitrate ER 30 mg tablet,exte nded release 24 hr TAKE 1 TABLET BY MOUTH EVERY DAY No isosorbide mononitrat e ER 30 mg tablet,ext ended release 24 hr TAKE 1 TABLET BY MOUTH EVERY DAY [facility] Low Dose Aspirin 81 mg tablet,emily yed release Take 1 tablet every day by oral route. Low Dose Aspirin 81 mg tablet,emily yed release Take 1 tablet every day by oral route. No 1 Q1D Low Dose Aspirin 81 mg tablet,del ayed release Take 1 tablet every day by oral route. [facility] metoprolol succinate ER 25 mg tablet,exte nded release 24 hr TAKE 1 TABLET BY MOUTH EVERY DAY metoprolol succinate ER 25 mg tablet,exte nded release 24 hr TAKE 1 TABLET BY MOUTH EVERY DAY No metoprolol succinate ER 25 mg tablet,ext ended release 24 hr TAKE 1 TABLET BY MOUTH EVERY DAY [facility] tramadol 50 mg tablet TAKE 1 TABLET BY MOUTH TWICE DAILY NEEDED FOR PAIN tramadol 50 mg tablet TAKE 1 TABLET BY MOUTH TWICE DAILY NEEDED FOR PAIN No tramadol 50 mg tablet TAKE 1 TABLET BY MOUTH TWICE DAILY NEEDED FOR PAIN [facility] atorvastati n 10 mg tablet TAKE 1 TABLET BY MOUTH AT BEDTIME atorvastati n 10 mg tablet TAKE 1 TABLET BY MOUTH AT BEDTIME No atorvastat in 10 mg tablet TAKE 1 TABLET BY MOUTH AT BEDTIME [facility] clopidogrel 75 mg tablet TAKE 1 TABLET BY MOUTH DAILY clopidogrel 75 mg tablet TAKE 1 TABLET BY MOUTH DAILY No clopidogre l 75 mg tablet TAKE 1 TABLET BY MOUTH DAILY [facility] isosorbide mononitrate ER 30 mg tablet,exte nded release 24 hr TAKE 1 TABLET BY MOUTH EVERY DAY isosorbide mononitrate ER 30 mg tablet,exte nded release 24 hr TAKE 1 TABLET BY MOUTH EVERY DAY No isosorbide mononitrat e ER 30 mg tablet,ext ended release 24 hr TAKE 1 TABLET BY MOUTH EVERY DAY [facility] Low Dose Aspirin 81 mg tablet,emily yed release Take 1 tablet every day by oral route. Low Dose Aspirin 81 mg tablet,emily yed release Take 1 tablet every day by oral route. No 1 Q1D Low Dose Aspirin 81 mg tablet,del ayed release Take 1 tablet every day by oral route. [facility] metoprolol succinate ER 25 mg tablet,exte nded release 24 hr TAKE 1 TABLET BY MOUTH EVERY DAY metoprolol succinate ER 25 mg tablet,exte nded release 24 hr TAKE 1 TABLET BY MOUTH EVERY DAY No metoprolol succinate ER 25 mg tablet,ext ended release 24 hr TAKE 1 TABLET BY MOUTH EVERY DAY [facility] atorvastati n 10 mg tablet TAKE 1 TABLET BY MOUTH AT BEDTIME atorvastati n 10 mg tablet TAKE 1 TABLET BY MOUTH AT BEDTIME No atorvastat in 10 mg tablet TAKE 1 TABLET BY MOUTH AT BEDTIME [facility] clopidogrel 75 mg tablet TAKE 1 TABLET BY MOUTH DAILY clopidogrel 75 mg tablet TAKE 1 TABLET BY MOUTH DAILY No clopidogre l 75 mg tablet TAKE 1 TABLET BY MOUTH DAILY [facility] isosorbide mononitrate ER 30 mg tablet,exte nded release 24 hr TAKE 1 TABLET BY MOUTH EVERY DAY isosorbide mononitrate ER 30 mg tablet,exte nded release 24 hr TAKE 1 TABLET BY MOUTH EVERY DAY No isosorbide mononitrat e ER 30 mg tablet,ext ended release 24 hr TAKE 1 TABLET BY MOUTH EVERY DAY [facility] Low Dose Aspirin 81 mg tablet,emily yed release Take 1 tablet every day by oral route. Low Dose Aspirin 81 mg tablet,emily yed release Take 1 tablet every day by oral route. No 1 Q1D Low Dose Aspirin 81 mg tablet,del ayed release Take 1 tablet every day by oral route. [facility] metoprolol succinate ER 25 mg tablet,exte nded release 24 hr TAKE 1 TABLET BY MOUTH EVERY DAY metoprolol succinate ER 25 mg tablet,exte nded release 24 hr TAKE 1 TABLET BY MOUTH EVERY DAY No metoprolol succinate ER 25 mg tablet,ext ended release 24 hr TAKE 1 TABLET BY MOUTH EVERY DAY [facility] tramadol 50 mg tablet TAKE 1 TABLET BY MOUTH TWICE DAILY NEEDED FOR PAIN tramadol 50 mg tablet TAKE 1 TABLET BY MOUTH TWICE DAILY NEEDED FOR PAIN No tramadol 50 mg tablet TAKE 1 TABLET BY MOUTH TWICE DAILY NEEDED FOR PAIN [facility] atorvastati n 10 mg tablet TAKE 1 TABLET BY MOUTH AT BEDTIME atorvastati n 10 mg tablet TAKE 1 TABLET BY MOUTH AT BEDTIME No atorvastat in 10 mg tablet TAKE 1 TABLET BY MOUTH AT BEDTIME [facility] clopidogrel 75 mg tablet TAKE 1 TABLET BY MOUTH DAILY clopidogrel 75 mg tablet TAKE 1 TABLET BY MOUTH DAILY No clopidogre l 75 mg tablet TAKE 1 TABLET BY MOUTH DAILY [facility] isosorbide mononitrate ER 30 mg tablet,exte nded release 24 hr TAKE 1 TABLET BY MOUTH EVERY DAY isosorbide mononitrate ER 30 mg tablet,exte nded release 24 hr TAKE 1 TABLET BY MOUTH EVERY DAY No isosorbide mononitrat e ER 30 mg tablet,ext ended release 24 hr TAKE 1 TABLET BY MOUTH EVERY DAY [facility] Low Dose Aspirin 81 mg tablet,emily yed release Take 1 tablet every day by oral route. Low Dose Aspirin 81 mg tablet,emily yed release Take 1 tablet every day by oral route. No 1 Q1D Low Dose Aspirin 81 mg tablet,del ayed release Take 1 tablet every day by oral route. [facility] metoprolol succinate ER 25 mg tablet,exte nded release 24 hr TAKE 1 TABLET BY MOUTH EVERY DAY metoprolol succinate ER 25 mg tablet,exte nded release 24 hr TAKE 1 TABLET BY MOUTH EVERY DAY No metoprolol succinate ER 25 mg tablet,ext ended release 24 hr TAKE 1 TABLET BY MOUTH EVERY DAY [facility] tramadol 50 mg tablet TAKE 1 TABLET BY MOUTH TWICE DAILY NEEDED FOR PAIN tramadol 50 mg tablet TAKE 1 TABLET BY MOUTH TWICE DAILY NEEDED FOR PAIN No tramadol 50 mg tablet TAKE 1 TABLET BY MOUTH TWICE DAILY NEEDED FOR PAIN [facility] atorvastati n 10 mg tablet TAKE 1 TABLET BY MOUTH AT BEDTIME atorvastati n 10 mg tablet TAKE 1 TABLET BY MOUTH AT BEDTIME No atorvastat in 10 mg tablet TAKE 1 TABLET BY MOUTH AT BEDTIME [facility] clopidogrel 75 mg tablet TAKE 1 TABLET BY MOUTH DAILY clopidogrel 75 mg tablet TAKE 1 TABLET BY MOUTH DAILY No clopidogre l 75 mg tablet TAKE 1 TABLET BY MOUTH DAILY [facility] hydrocortis one valerate 0.2 % topical cream APPLY A THIN LAYER TOPICALLY TO THE AFFECTED AREA ON THE GROIN NEEDED FOR ITCHING FOR 2 WEEKS PER MONTH hydrocortis one valerate 0.2 % topical cream APPLY A THIN LAYER TOPICALLY TO THE AFFECTED AREA ON THE GROIN NEEDED FOR ITCHING FOR 2 WEEKS PER MONTH No hydrocorti sone valerate 0.2 % topical cream APPLY A THIN LAYER TOPICALLY TO THE AFFECTED AREA ON THE GROIN NEEDED FOR ITCHING FOR 2 WEEKS PER MONTH [facility] isosorbide mononitrate ER 30 mg tablet,exte nded release 24 hr TAKE 1 TABLET BY MOUTH EVERY DAY isosorbide mononitrate ER 30 mg tablet,exte nded release 24 hr TAKE 1 TABLET BY MOUTH EVERY DAY No isosorbide mononitrat e ER 30 mg tablet,ext ended release 24 hr TAKE 1 TABLET BY MOUTH EVERY DAY [facility] Low Dose Aspirin 81 mg tablet,emily yed release Take 1 tablet every other day by oral route. Low Dose Aspirin 81 mg tablet,emily yed release Take 1 tablet every other day by oral route. No 1 Q2D Low Dose Aspirin 81 mg tablet,del ayed release Take 1 tablet every other day by oral route. [facility] metoprolol succinate ER 25 mg tablet,exte nded release 24 hr TAKE 1 TABLET BY MOUTH EVERY DAY metoprolol succinate ER 25 mg tablet,exte nded release 24 hr TAKE 1 TABLET BY MOUTH EVERY DAY No metoprolol succinate ER 25 mg tablet,ext ended release 24 hr TAKE 1 TABLET BY MOUTH EVERY DAY [facility] tramadol 50 mg tablet TAKE 1 TABLET BY MOUTH TWICE DAILY NEEDED FOR PAIN tramadol 50 mg tablet TAKE 1 TABLET BY MOUTH TWICE DAILY NEEDED FOR PAIN No tramadol 50 mg tablet TAKE 1 TABLET BY MOUTH TWICE DAILY NEEDED FOR PAIN [facility] atorvastati n 10 mg tablet TAKE 1 TABLET BY MOUTH AT BEDTIME atorvastati n 10 mg tablet TAKE 1 TABLET BY MOUTH AT BEDTIME No atorvastat in 10 mg tablet TAKE 1 TABLET BY MOUTH AT BEDTIME [facility] clopidogrel 75 mg tablet TAKE 1 TABLET BY MOUTH DAILY clopidogrel 75 mg tablet TAKE 1 TABLET BY MOUTH DAILY No clopidogre l 75 mg tablet TAKE 1 TABLET BY MOUTH DAILY [facility] hydrocortis one valerate 0.2 % topical cream APPLY A THIN LAYER TOPICALLY TO THE AFFECTED AREA ON THE GROIN NEEDED FOR ITCHING FOR 2 WEEKS PER MONTH hydrocortis one valerate 0.2 % topical cream APPLY A THIN LAYER TOPICALLY TO THE AFFECTED AREA ON THE GROIN NEEDED FOR ITCHING FOR 2 WEEKS PER MONTH No hydrocorti sone valerate 0.2 % topical cream APPLY A THIN LAYER TOPICALLY TO THE AFFECTED AREA ON THE GROIN NEEDED FOR ITCHING FOR 2 WEEKS PER MONTH [facility] isosorbide mononitrate ER 30 mg tablet,exte nded release 24 hr TAKE 1 TABLET BY MOUTH EVERY DAY isosorbide mononitrate ER 30 mg tablet,exte nded release 24 hr TAKE 1 TABLET BY MOUTH EVERY DAY No isosorbide mononitrat e ER 30 mg tablet,ext ended release 24 hr TAKE 1 TABLET BY MOUTH EVERY DAY [facility] metoprolol succinate ER 25 mg tablet,exte nded release 24 hr TAKE 1 TABLET BY MOUTH EVERY DAY metoprolol succinate ER 25 mg tablet,exte nded release 24 hr TAKE 1 TABLET BY MOUTH EVERY DAY No metoprolol succinate ER 25 mg tablet,ext ended release 24 hr TAKE 1 TABLET BY MOUTH EVERY DAY [facility] tramadol 50 mg tablet TAKE 1 TABLET BY MOUTH TWICE DAILY NEEDED FOR PAIN tramadol 50 mg tablet TAKE 1 TABLET BY MOUTH TWICE DAILY NEEDED FOR PAIN No tramadol 50 mg tablet TAKE 1 TABLET BY MOUTH TWICE DAILY NEEDED FOR PAIN [facility] atorvastati n 10 mg tablet TAKE 1 TABLET BY MOUTH AT BEDTIME atorvastati n 10 mg tablet TAKE 1 TABLET BY MOUTH AT BEDTIME No atorvastat in 10 mg tablet TAKE 1 TABLET BY MOUTH AT BEDTIME [facility] clopidogrel 75 mg tablet TAKE 1 TABLET BY MOUTH DAILY clopidogrel 75 mg tablet TAKE 1 TABLET BY MOUTH DAILY No clopidogre l 75 mg tablet TAKE 1 TABLET BY MOUTH DAILY [facility] hydrocortis one valerate 0.2 % topical cream APPLY A THIN LAYER TOPICALLY TO THE AFFECTED AREA ON THE GROIN NEEDED FOR ITCHING FOR 2 WEEKS PER MONTH hydrocortis one valerate 0.2 % topical cream APPLY A THIN LAYER TOPICALLY TO THE AFFECTED AREA ON THE GROIN NEEDED FOR ITCHING FOR 2 WEEKS PER MONTH No hydrocorti sone valerate 0.2 % topical cream APPLY A THIN LAYER TOPICALLY TO THE AFFECTED AREA ON THE GROIN NEEDED FOR ITCHING FOR 2 WEEKS PER MONTH [facility] isosorbide mononitrate ER 30 mg tablet,exte nded release 24 hr TAKE 1 TABLET BY MOUTH EVERY DAY isosorbide mononitrate ER 30 mg tablet,exte nded release 24 hr TAKE 1 TABLET BY MOUTH EVERY DAY No isosorbide mononitrat e ER 30 mg tablet,ext ended release 24 hr TAKE 1 TABLET BY MOUTH EVERY DAY [facility] metoprolol succinate ER 25 mg tablet,exte nded release 24 hr TAKE 1 TABLET BY MOUTH EVERY DAY metoprolol succinate ER 25 mg tablet,exte nded release 24 hr TAKE 1 TABLET BY MOUTH EVERY DAY No metoprolol succinate ER 25 mg tablet,ext ended release 24 hr TAKE 1 TABLET BY MOUTH EVERY DAY [facility] tramadol 50 mg tablet TAKE 1 TABLET BY MOUTH TWICE DAILY NEEDED FOR PAIN tramadol 50 mg tablet TAKE 1 TABLET BY MOUTH TWICE DAILY NEEDED FOR PAIN No tramadol 50 mg tablet TAKE 1 TABLET BY MOUTH TWICE DAILY NEEDED FOR PAIN [facility] atorvastati n 10 mg tablet TAKE 1 TABLET BY MOUTH AT BEDTIME atorvastati n 10 mg tablet TAKE 1 TABLET BY MOUTH AT BEDTIME No atorvastat in 10 mg tablet TAKE 1 TABLET BY MOUTH AT BEDTIME [facility] clopidogrel 75 mg tablet TAKE 1 TABLET BY MOUTH DAILY clopidogrel 75 mg tablet TAKE 1 TABLET BY MOUTH DAILY No clopidogre l 75 mg tablet TAKE 1 TABLET BY MOUTH DAILY [facility] hydrocortis one valerate 0.2 % topical cream APPLY A THIN LAYER TOPICALLY TO THE AFFECTED AREA ON THE GROIN NEEDED FOR ITCHING FOR 2 WEEKS PER MONTH hydrocortis one valerate 0.2 % topical cream APPLY A THIN LAYER TOPICALLY TO THE AFFECTED AREA ON THE GROIN NEEDED FOR ITCHING FOR 2 WEEKS PER MONTH No hydrocorti sone valerate 0.2 % topical cream APPLY A THIN LAYER TOPICALLY TO THE AFFECTED AREA ON THE GROIN NEEDED FOR ITCHING FOR 2 WEEKS PER MONTH [facility] isosorbide mononitrate ER 30 mg tablet,exte nded release 24 hr TAKE 1 TABLET BY MOUTH EVERY DAY isosorbide mononitrate ER 30 mg tablet,exte nded release 24 hr TAKE 1 TABLET BY MOUTH EVERY DAY No isosorbide mononitrat e ER 30 mg tablet,ext ended release 24 hr TAKE 1 TABLET BY MOUTH EVERY DAY [facility] metoprolol succinate ER 25 mg tablet,exte nded release 24 hr TAKE 1 TABLET BY MOUTH EVERY DAY metoprolol succinate ER 25 mg tablet,exte nded release 24 hr TAKE 1 TABLET BY MOUTH EVERY DAY No metoprolol succinate ER 25 mg tablet,ext ended release 24 hr TAKE 1 TABLET BY MOUTH EVERY DAY [facility] tramadol 50 mg tablet TAKE 1 TABLET BY MOUTH TWICE DAILY NEEDED FOR PAIN tramadol 50 mg tablet TAKE 1 TABLET BY MOUTH TWICE DAILY NEEDED FOR PAIN No tramadol 50 mg tablet TAKE 1 TABLET BY MOUTH TWICE DAILY NEEDED FOR PAIN [facility] atorvastati n 10 mg tablet TAKE 1 TABLET BY MOUTH AT BEDTIME atorvastati n 10 mg tablet TAKE 1 TABLET BY MOUTH AT BEDTIME No atorvastat in 10 mg tablet TAKE 1 TABLET BY MOUTH AT BEDTIME [facility] clopidogrel 75 mg tablet TAKE 1 TABLET BY MOUTH DAILY clopidogrel 75 mg tablet TAKE 1 TABLET BY MOUTH DAILY No clopidogre l 75 mg tablet TAKE 1 TABLET BY MOUTH DAILY [facility] hydrocortis one valerate 0.2 % topical cream APPLY A THIN LAYER TOPICALLY TO THE AFFECTED AREA ON THE GROIN NEEDED FOR ITCHING FOR 2 WEEKS PER MONTH hydrocortis one valerate 0.2 % topical cream APPLY A THIN LAYER TOPICALLY TO THE AFFECTED AREA ON THE GROIN NEEDED FOR ITCHING FOR 2 WEEKS PER MONTH No hydrocorti sone valerate 0.2 % topical cream APPLY A THIN LAYER TOPICALLY TO THE AFFECTED AREA ON THE GROIN NEEDED FOR ITCHING FOR 2 WEEKS PER MONTH [facility] isosorbide mononitrate ER 30 mg tablet,exte nded release 24 hr TAKE 1 TABLET BY MOUTH EVERY DAY isosorbide mononitrate ER 30 mg tablet,exte nded release 24 hr TAKE 1 TABLET BY MOUTH EVERY DAY No isosorbide mononitrat e ER 30 mg tablet,ext ended release 24 hr TAKE 1 TABLET BY MOUTH EVERY DAY [facility] metoprolol succinate ER 25 mg tablet,exte nded release 24 hr TAKE 1 TABLET BY MOUTH EVERY DAY metoprolol succinate ER 25 mg tablet,exte nded release 24 hr TAKE 1 TABLET BY MOUTH EVERY DAY No metoprolol succinate ER 25 mg tablet,ext ended release 24 hr TAKE 1 TABLET BY MOUTH EVERY DAY [facility] tramadol 50 mg tablet TAKE 1 TABLET BY MOUTH TWICE DAILY NEEDED FOR PAIN tramadol 50 mg tablet TAKE 1 TABLET BY MOUTH TWICE DAILY NEEDED FOR PAIN No tramadol 50 mg tablet TAKE 1 TABLET BY MOUTH TWICE DAILY NEEDED FOR PAIN [facility] atorvastati n 10 mg tablet TAKE 1 TABLET BY MOUTH AT BEDTIME atorvastati n 10 mg tablet TAKE 1 TABLET BY MOUTH AT BEDTIME No atorvastat in 10 mg tablet TAKE 1 TABLET BY MOUTH AT BEDTIME [facility] clopidogrel 75 mg tablet TAKE 1 TABLET BY MOUTH DAILY clopidogrel 75 mg tablet TAKE 1 TABLET BY MOUTH DAILY No clopidogre l 75 mg tablet TAKE 1 TABLET BY MOUTH DAILY [facility] hydrocortis one valerate 0.2 % topical cream APPLY A THIN LAYER TOPICALLY TO THE AFFECTED AREA ON THE GROIN NEEDED FOR ITCHING FOR 2 WEEKS PER MONTH hydrocortis one valerate 0.2 % topical cream APPLY A THIN LAYER TOPICALLY TO THE AFFECTED AREA ON THE GROIN NEEDED FOR ITCHING FOR 2 WEEKS PER MONTH No hydrocorti sone valerate 0.2 % topical cream APPLY A THIN LAYER TOPICALLY TO THE AFFECTED AREA ON THE GROIN NEEDED FOR ITCHING FOR 2 WEEKS PER MONTH [facility] isosorbide mononitrate ER 30 mg tablet,exte nded release 24 hr TAKE 1 TABLET BY MOUTH EVERY DAY isosorbide mononitrate ER 30 mg tablet,exte nded release 24 hr TAKE 1 TABLET BY MOUTH EVERY DAY No isosorbide mononitrat e ER 30 mg tablet,ext ended release 24 hr TAKE 1 TABLET BY MOUTH EVERY DAY [facility] metoprolol succinate ER 25 mg tablet,exte nded release 24 hr TAKE 1 TABLET BY MOUTH EVERY DAY metoprolol succinate ER 25 mg tablet,exte nded release 24 hr TAKE 1 TABLET BY MOUTH EVERY DAY No metoprolol succinate ER 25 mg tablet,ext ended release 24 hr TAKE 1 TABLET BY MOUTH EVERY DAY [facility] tramadol 50 mg tablet TAKE 1 TABLET BY MOUTH TWICE DAILY NEEDED FOR PAIN tramadol 50 mg tablet TAKE 1 TABLET BY MOUTH TWICE DAILY NEEDED FOR PAIN No tramadol 50 mg tablet TAKE 1 TABLET BY MOUTH TWICE DAILY NEEDED FOR PAIN [facility] atorvastati n 10 mg tablet TAKE 1 TABLET BY MOUTH AT BEDTIME atorvastati n 10 mg tablet TAKE 1 TABLET BY MOUTH AT BEDTIME No atorvastat in 10 mg tablet TAKE 1 TABLET BY MOUTH AT BEDTIME [facility] clopidogrel 75 mg tablet TAKE 1 TABLET BY MOUTH DAILY clopidogrel 75 mg tablet TAKE 1 TABLET BY MOUTH DAILY No clopidogre l 75 mg tablet TAKE 1 TABLET BY MOUTH DAILY [facility] hydrocortis one valerate 0.2 % topical cream APPLY A THIN LAYER TOPICALLY TO THE AFFECTED AREA ON THE GROIN NEEDED FOR ITCHING FOR 2 WEEKS PER MONTH hydrocortis one valerate 0.2 % topical cream APPLY A THIN LAYER TOPICALLY TO THE AFFECTED AREA ON THE GROIN NEEDED FOR ITCHING FOR 2 WEEKS PER MONTH No hydrocorti sone valerate 0.2 % topical cream APPLY A THIN LAYER TOPICALLY TO THE AFFECTED AREA ON THE GROIN NEEDED FOR ITCHING FOR 2 WEEKS PER MONTH [facility] isosorbide mononitrate ER 30 mg tablet,exte nded release 24 hr TAKE 1 TABLET BY MOUTH EVERY DAY isosorbide mononitrate ER 30 mg tablet,exte nded release 24 hr TAKE 1 TABLET BY MOUTH EVERY DAY No isosorbide mononitrat e ER 30 mg tablet,ext ended release 24 hr TAKE 1 TABLET BY MOUTH EVERY DAY [facility] metoprolol succinate ER 25 mg tablet,exte nded release 24 hr TAKE 1 TABLET BY MOUTH EVERY DAY metoprolol succinate ER 25 mg tablet,exte nded release 24 hr TAKE 1 TABLET BY MOUTH EVERY DAY No metoprolol succinate ER 25 mg tablet,ext ended release 24 hr TAKE 1 TABLET BY MOUTH EVERY DAY [facility] tramadol 50 mg tablet TAKE 1 TABLET BY MOUTH TWICE DAILY NEEDED FOR PAIN tramadol 50 mg tablet TAKE 1 TABLET BY MOUTH TWICE DAILY NEEDED FOR PAIN No tramadol 50 mg tablet TAKE 1 TABLET BY MOUTH TWICE DAILY NEEDED FOR PAIN [facility] atorvastati n 10 mg tablet TAKE 1 TABLET BY MOUTH EVERY DAY AT BEDTIME atorvastati n 10 mg tablet TAKE 1 TABLET BY MOUTH EVERY DAY AT BEDTIME No atorvastat in 10 mg tablet TAKE 1 TABLET BY MOUTH EVERY DAY AT BEDTIME [facility] clopidogrel 75 mg tablet TAKE 1 TABLET BY MOUTH DAILY clopidogrel 75 mg tablet TAKE 1 TABLET BY MOUTH DAILY No clopidogre l 75 mg tablet TAKE 1 TABLET BY MOUTH DAILY [facility] hydrocortis one valerate 0.2 % topical cream APPLY A THIN LAYER TOPICALLY TO THE AFFECTED AREA ON THE GROIN NEEDED FOR ITCHING FOR 2 WEEKS PER MONTH hydrocortis one valerate 0.2 % topical cream APPLY A THIN LAYER TOPICALLY TO THE AFFECTED AREA ON THE GROIN NEEDED FOR ITCHING FOR 2 WEEKS PER MONTH No hydrocorti sone valerate 0.2 % topical cream APPLY A THIN LAYER TOPICALLY TO THE AFFECTED AREA ON THE GROIN NEEDED FOR ITCHING FOR 2 WEEKS PER MONTH [facility] isosorbide mononitrate ER 30 mg tablet,exte nded release 24 hr TAKE 1 TABLET BY MOUTH EVERY DAY isosorbide mononitrate ER 30 mg tablet,exte nded release 24 hr TAKE 1 TABLET BY MOUTH EVERY DAY No isosorbide mononitrat e ER 30 mg tablet,ext ended release 24 hr TAKE 1 TABLET BY MOUTH EVERY DAY [facility] metoprolol succinate ER 25 mg tablet,exte nded release 24 hr TAKE 1 TABLET BY MOUTH EVERY DAY metoprolol succinate ER 25 mg tablet,exte nded release 24 hr TAKE 1 TABLET BY MOUTH EVERY DAY No metoprolol succinate ER 25 mg tablet,ext ended release 24 hr TAKE 1 TABLET BY MOUTH EVERY DAY [facility] tramadol 50 mg tablet TAKE 1 TABLET BY MOUTH TWICE DAILY NEEDED FOR PAIN tramadol 50 mg tablet TAKE 1 TABLET BY MOUTH TWICE DAILY NEEDED FOR PAIN No tramadol 50 mg tablet TAKE 1 TABLET BY MOUTH TWICE DAILY NEEDED FOR PAIN [facility] atorvastati n 10 mg tablet TAKE 1 TABLET BY MOUTH AT BEDTIME atorvastati n 10 mg tablet TAKE 1 TABLET BY MOUTH AT BEDTIME No atorvastat in 10 mg tablet TAKE 1 TABLET BY MOUTH AT BEDTIME [facility] clopidogrel 75 mg tablet TAKE 1 TABLET BY MOUTH DAILY clopidogrel 75 mg tablet TAKE 1 TABLET BY MOUTH DAILY No clopidogre l 75 mg tablet TAKE 1 TABLET BY MOUTH DAILY [facility] isosorbide mononitrate ER 30 mg tablet,exte nded release 24 hr TAKE 1 TABLET BY MOUTH ONCE DAILY isosorbide mononitrate ER 30 mg tablet,exte nded release 24 hr TAKE 1 TABLET BY MOUTH ONCE DAILY No isosorbide mononitrat e ER 30 mg tablet,ext ended release 24 hr TAKE 1 TABLET BY MOUTH ONCE DAILY [facility] tramadol 50 mg tablet TAKE 1 TABLET BY MOUTH EVERY DAY NEEDED tramadol 50 mg tablet TAKE 1 TABLET BY MOUTH EVERY DAY NEEDED No tramadol 50 mg tablet TAKE 1 TABLET BY MOUTH EVERY DAY NEEDED [facility] atorvastati n 10 mg tablet TAKE 1 TABLET BY MOUTH AT BEDTIME atorvastati n 10 mg tablet TAKE 1 TABLET BY MOUTH AT BEDTIME No atorvastat in 10 mg tablet TAKE 1 TABLET BY MOUTH AT BEDTIME [facility] clopidogrel 75 mg tablet TAKE 1 TABLET BY MOUTH DAILY clopidogrel 75 mg tablet TAKE 1 TABLET BY MOUTH DAILY No clopidogre l 75 mg tablet TAKE 1 TABLET BY MOUTH DAILY [facility] isosorbide mononitrate ER 30 mg tablet,exte nded release 24 hr TAKE 1 TABLET BY MOUTH ONCE DAILY isosorbide mononitrate ER 30 mg tablet,exte nded release 24 hr TAKE 1 TABLET BY MOUTH ONCE DAILY No isosorbide mononitrat e ER 30 mg tablet,ext ended release 24 hr TAKE 1 TABLET BY MOUTH ONCE DAILY [facility] tramadol 50 mg tablet TAKE 1 TABLET BY MOUTH EVERY DAY NEEDED tramadol 50 mg tablet TAKE 1 TABLET BY MOUTH EVERY DAY NEEDED No tramadol 50 mg tablet TAKE 1 TABLET BY MOUTH EVERY DAY NEEDED [facility] Immunizations Ordered Immunization Name Filled Immunization Name Date Status Comments Source Pneumococcal conjugate PCV20, polysaccharide [id number] conjugate, adjuvant, PF Pneumococcal conjugate PCV20, polysaccharide [id number] conjugate, adjuvant, PF 2022-09-09 00:00:00 [facility] Pneumococcal conjugate PCV20, polysaccharide [id number] conjugate, adjuvant, PF Pneumococcal conjugate PCV20, polysaccharide [id number] conjugate, adjuvant, PF 2022-09-09 00:00:00 [facility] Pneumococcal conjugate PCV20, polysaccharide [id number] conjugate, adjuvant, PF Pneumococcal conjugate PCV20, polysaccharide [id number] conjugate, adjuvant, PF 2022-09-09 00:00:00 [facility] influenza, high-dose, quadrivalent influenza, high-dose, quadrivalent 2022-04-25 00:00:00 [facility] influenza, high-dose, quadrivalent influenza, high-dose, quadrivalent 2022-04-25 00:00:00 [facility] influenza, high-dose, quadrivalent influenza, high-dose, quadrivalent 2022-04-25 00:00:00 [facility] influenza, high-dose, quadrivalent influenza, high-dose, quadrivalent 2022-04-25 00:00:00 [facility] influenza, high-dose, quadrivalent influenza, high-dose, quadrivalent 2022-04-25 00:00:00 [facility] influenza, high-dose, quadrivalent influenza, high-dose, quadrivalent 2022-04-25 00:00:00 [facility] Influenza, injectable, MDCK, preservative free, quadrivalent Influenza, injectable, MDCK, preservative free, quadrivalent 2021-05-07 11:45:39 [facility] Influenza, injectable, MDCK, preservative free, quadrivalent Influenza, injectable, MDCK, preservative free, quadrivalent 2021-05-07 11:45:39 [facility] Influenza, injectable, MDCK, preservative free, quadrivalent Influenza, injectable, MDCK, preservative free, quadrivalent 2021-05-07 11:45:39 Completed [facility] Influenza, injectable, MDCK, preservative free, quadrivalent Influenza, injectable, MDCK, preservative free, quadrivalent 2021-05-07 11:45:39 Completed [facility] Influenza, injectable, MDCK, preservative free, quadrivalent Influenza, injectable, MDCK, preservative free, quadrivalent 2021-05-07 11:45:39 Completed [facility] Influenza, injectable, MDCK, preservative free, quadrivalent Influenza, injectable, MDCK, preservative free, quadrivalent 2021-05-07 11:45:39 [facility] Influenza, injectable, MDCK, preservative free, quadrivalent Influenza, injectable, MDCK, preservative free, quadrivalent 2021-05-07 11:45:39 [facility] Influenza, injectable, MDCK, preservative free, quadrivalent Influenza, injectable, MDCK, preservative free, quadrivalent 2021-05-07 11:45:39 [facility] Influenza, injectable, MDCK, preservative free, quadrivalent Influenza, injectable, MDCK, preservative free, quadrivalent 2021-05-07 11:45:39 [facility] Influenza, injectable, MDCK, preservative free, quadrivalent Influenza, injectable, MDCK, preservative free, quadrivalent 2021-05-07 11:45:39 [facility] Influenza, injectable, MDCK, preservative free, quadrivalent Influenza, injectable, MDCK, preservative free, quadrivalent 2021-05-07 11:45:39 [facility] Influenza, injectable, MDCK, preservative free, quadrivalent Influenza, injectable, MDCK, preservative free, quadrivalent 2021-05-07 11:45:39 [facility] SARS-COV-2 (COVID-19) vaccine, UNSPECIFIED SARS-COV-2 (COVID-19) vaccine, UNSPECIFIED 2020-10-18 00:00:00 [facility] COVID-19 (SARS-COV-2) vaccine, unspecified COVID-19 (SARS-COV-2) vaccine, unspecified 2020-10-18 00:00:00 Completed [facility] COVID-19 (SARS-COV-2) vaccine, unspecified COVID-19 (SARS-COV-2) vaccine, unspecified 2020-10-18 00:00:00 Completed [facility] COVID-19 (SARS-COV-2) vaccine, unspecified COVID-19 (SARS-COV-2) vaccine, unspecified 2020-10-18 00:00:00 Completed [facility] COVID-19 (SARS-COV-2) vaccine, unspecified COVID-19 (SARS-COV-2) vaccine, unspecified 2020-10-18 00:00:00 Completed [facility] COVID-19 (SARS-COV-2) vaccine, unspecified COVID-19 (SARS-COV-2) vaccine, unspecified 2020-10-18 00:00:00 Completed [facility] COVID-19 (SARS-COV-2) vaccine, unspecified COVID-19 (SARS-COV-2) vaccine, unspecified 2020-10-18 00:00:00 Completed [facility] COVID-19 (SARS-COV-2) vaccine, unspecified COVID-19 (SARS-COV-2) vaccine, unspecified 2020-10-18 00:00:00 Completed [facility] COVID-19 (SARS-COV-2) vaccine, unspecified COVID-19 (SARS-COV-2) vaccine, unspecified 2020-10-18 00:00:00 Completed [facility] COVID-19 (SARS-COV-2) vaccine, unspecified COVID-19 (SARS-COV-2) vaccine, unspecified 2020-10-18 00:00:00 Completed [facility] COVID-19 (SARS-COV-2) vaccine, unspecified COVID-19 (SARS-COV-2) vaccine, unspecified 2020-10-18 00:00:00 Completed [facility] COVID-19 (SARS-COV-2) vaccine, unspecified COVID-19 (SARS-COV-2) vaccine, unspecified 2020-10-18 00:00:00 Completed [facility] COVID-19 (SARS-COV-2) vaccine, unspecified COVID-19 (SARS-COV-2) vaccine, unspecified 2020-10-18 00:00:00 Completed [facility] SARS-COV-2 (COVID-19) vaccine, UNSPECIFIED SARS-COV-2 (COVID-19) vaccine, UNSPECIFIED 2020-10-18 00:00:00 Completed [facility] SARS-COV-2 (COVID-19) vaccine, UNSPECIFIED SARS-COV-2 (COVID-19) vaccine, UNSPECIFIED 2020-09-21 00:00:00 Completed [facility] COVID-19 (SARS-COV-2) vaccine, unspecified COVID-19 (SARS-COV-2) vaccine, unspecified 2020-09-21 00:00:00 Completed [facility] COVID-19 (SARS-COV-2) vaccine, unspecified COVID-19 (SARS-COV-2) vaccine, unspecified 2020-09-21 00:00:00 Completed [facility] COVID-19 (SARS-COV-2) vaccine, unspecified COVID-19 (SARS-COV-2) vaccine, unspecified 2020-09-21 00:00:00 Completed [facility] COVID-19 (SARS-COV-2) vaccine, unspecified COVID-19 (SARS-COV-2) vaccine, unspecified 2020-09-21 00:00:00 Completed [facility] COVID-19 (SARS-COV-2) vaccine, unspecified COVID-19 (SARS-COV-2) vaccine, unspecified 2020-09-21 00:00:00 Completed [facility] COVID-19 (SARS-COV-2) vaccine, unspecified COVID-19 (SARS-COV-2) vaccine, unspecified 2020-09-21 00:00:00 Completed [facility] COVID-19 (SARS-COV-2) vaccine, unspecified COVID-19 (SARS-COV-2) vaccine, unspecified 2020-09-21 00:00:00 Completed [facility] COVID-19 (SARS-COV-2) vaccine, unspecified COVID-19 (SARS-COV-2) vaccine, unspecified 2020-09-21 00:00:00 Completed [facility] COVID-19 (SARS-COV-2) vaccine, unspecified COVID-19 (SARS-COV-2) vaccine, unspecified 2020-09-21 00:00:00 Completed [facility] COVID-19 (SARS-COV-2) vaccine, unspecified COVID-19 (SARS-COV-2) vaccine, unspecified 2020-09-21 00:00:00 Completed [facility] COVID-19 (SARS-COV-2) vaccine, unspecified COVID-19 (SARS-COV-2) vaccine, unspecified 2020-09-21 00:00:00 Completed [facility] COVID-19 (SARS-COV-2) vaccine, unspecified COVID-19 (SARS-COV-2) vaccine, unspecified 2020-09-21 00:00:00 Completed [facility] SARS-COV-2 (COVID-19) vaccine, UNSPECIFIED SARS-COV-2 (COVID-19) vaccine, UNSPECIFIED 2020-09-21 00:00:00 Completed [facility] SARS-COV-2 (COVID-19) vaccine, UNSPECIFIED SARS-COV-2 (COVID-19) vaccine, UNSPECIFIED 2020-09-18 00:00:00 [facility] influenza, injectable, quadrivalent influenza, injectable, quadrivalent 2020-03-28 00:00:00 [facility] influenza, injectable, quadrivalent influenza, injectable, quadrivalent 2020-03-28 00:00:00 [facility] influenza, injectable, quadrivalent influenza, injectable, quadrivalent 2020-03-28 00:00:00 [facility] influenza, injectable, quadrivalent influenza, injectable, quadrivalent 2020-03-28 00:00:00 [facility] influenza, injectable, quadrivalent influenza, injectable, quadrivalent 2020-03-28 00:00:00 [facility] influenza, injectable, quadrivalent influenza, injectable, quadrivalent 2020-03-28 00:00:00 [facility] influenza, injectable, quadrivalent influenza, injectable, quadrivalent 2020-03-28 00:00:00 [facility] influenza, injectable, quadrivalent influenza, injectable, quadrivalent 2020-03-28 00:00:00 Completed [facility] influenza, injectable, quadrivalent influenza, injectable, quadrivalent 2020-03-28 00:00:00 [facility] influenza, injectable, quadrivalent influenza, injectable, quadrivalent 2020-03-28 00:00:00 [facility] influenza, injectable, quadrivalent influenza, injectable, quadrivalent 2020-03-28 00:00:00 Completed [facility] influenza, injectable, quadrivalent influenza, injectable, quadrivalent 2020-03-28 00:00:00 [facility] influenza, injectable, quadrivalent influenza, injectable, quadrivalent 2020-03-28 00:00:00 [facility] influenza, injectable, quadrivalent influenza, injectable, quadrivalent 2020-03-28 00:00:00 [facility] influenza, injectable, quadrivalent influenza, injectable, quadrivalent 2020-03-28 00:00:00 [facility] influenza, injectable, quadrivalent influenza, injectable, quadrivalent 2019-05-04 00:00:00 [facility] influenza, injectable, quadrivalent influenza, injectable, quadrivalent 2019-05-04 00:00:00 [facility] influenza, injectable, quadrivalent influenza, injectable, quadrivalent 2019-05-04 00:00:00 [facility] influenza, injectable, quadrivalent influenza, injectable, quadrivalent 2019-05-04 00:00:00 [facility] influenza, injectable, quadrivalent influenza, injectable, quadrivalent 2019-05-04 00:00:00 [facility] influenza, injectable, quadrivalent influenza, injectable, quadrivalent 2019-05-04 00:00:00 [facility] influenza, injectable, quadrivalent influenza, injectable, quadrivalent 2019-05-04 00:00:00 [facility] influenza, injectable, quadrivalent influenza, injectable, quadrivalent 2019-05-04 00:00:00 [facility] influenza, injectable, quadrivalent influenza, injectable, quadrivalent 2019-05-04 00:00:00 [facility] influenza, injectable, quadrivalent influenza, injectable, quadrivalent 2019-05-04 00:00:00 Completed [facility] influenza, injectable, quadrivalent influenza, injectable, quadrivalent 2019-05-04 00:00:00 Completed [facility] influenza, injectable, quadrivalent influenza, injectable, quadrivalent 2019-05-04 00:00:00 Completed [facility] influenza, injectable, quadrivalent influenza, injectable, quadrivalent 2019-05-04 00:00:00 Completed [facility] influenza, injectable, quadrivalent influenza, injectable, quadrivalent 2019-05-04 00:00:00 Completed [facility] influenza, injectable, quadrivalent influenza, injectable, quadrivalent 2019-05-04 00:00:00 [facility] Influenza, injectable, MDCK, preservative free, quadrivalent Influenza, injectable, MDCK, preservative free, quadrivalent Unknown Completed [facility] Pneumococcal conjugate PCV20, polysaccharide [id number] conjugate, adjuvant, PF Pneumococcal conjugate PCV20, polysaccharide [id number] conjugate, adjuvant, PF Unknown Completed [facility] influenza, high-dose, quadrivalent influenza, high-dose, quadrivalent Unknown Completed [facility] COVID-19 (SARS-COV-2) vaccine, unspecified COVID-19 (SARS-COV-2) vaccine, unspecified Unknown Completed [facility] COVID-19 (SARS-COV-2) vaccine, unspecified COVID-19 (SARS-COV-2) vaccine, unspecified Unknown Completed [facility] influenza, injectable, quadrivalent influenza, injectable, quadrivalent Unknown Completed [facility] influenza, injectable, quadrivalent influenza, injectable, quadrivalent Unknown Completed [facility] Influenza, injectable, MDCK, preservative free, quadrivalent Influenza, injectable, MDCK, preservative free, quadrivalent Unknown Completed [facility] Pneumococcal conjugate PCV20, polysaccharide [id number] conjugate, adjuvant, PF Pneumococcal conjugate PCV20, polysaccharide [id number] conjugate, adjuvant, PF Unknown Completed [facility] influenza, high-dose, quadrivalent influenza, high-dose, quadrivalent Unknown Completed [facility] COVID-19 (SARS-COV-2) vaccine, unspecified COVID-19 (SARS-COV-2) vaccine, unspecified Unknown Completed [facility] COVID-19 (SARS-COV-2) vaccine, unspecified COVID-19 (SARS-COV-2) vaccine, unspecified Unknown Completed [facility] influenza, injectable, quadrivalent influenza, injectable, quadrivalent Unknown Completed [facility] influenza, injectable, quadrivalent influenza, injectable, quadrivalent Unknown Completed [facility] Vital Signs Vital Name Observation Time Observation Value Comments S ource BP Diastolic 2023-06-16 00:00:00 70 mm[Hg] [facility] BMI (Body Mass Index) 2023-06-16 00:00:00 25.1 kg/m2 [facility] BP Systolic 2023-06-16 00:00:00 118 mm[Hg] [facility] Weight 2023-06-16 00:00:00 2640 [oz_av] [facility] Height 2023-06-16 00:00:00 68 [in_i] [facility] BMI (Body Mass Index) 2023-04-14 00:00:00 26.9 kg/m2 [facility] Body Weight 2023-04-14 00:00:00 2832 [oz_av] [facility] Height 2023-04-14 00:00:00 68 [in_i] Pending sale to [facility] BP Diastolic 2023-04-14 00:00:00 72 mm[Hg] [facility] BP Systolic 2023-04-14 00:00:00 120 mm[Hg] [facility] BP Diastolic 2023-02-11 00:00:00 74 mm[Hg] [facility] Height 2023-02-11 00:00:00 68 [in_i] Pending sale to [facility] BMI (Body Mass Index) 2023-02-11 00:00:00 27.2 kg/m2 [facility] BP Systolic 2023-02-11 00:00:00 124 mm[Hg] [facility] Body Weight 2023-02-11 00:00:00 2864 [oz_av] [facility] BP Diastolic 2022-12-12 00:00:00 70 mm[Hg] [facility] Height 2022-12-12 00:00:00 68 [in_i] Pending sale to [facility] BP Systolic 2022-12-12 00:00:00 116 mm[Hg] [facility] BP Diastolic 2022-09-09 00:00:00 72 mm[Hg] [facility] Height 2022-09-09 00:00:00 68 [in_i] Pending sale to [facility] BMI (Body Mass Index) 2022-09-09 00:00:00 28.6 kg/m2 [facility] BP Systolic 2022-09-09 00:00:00 120 mm[Hg] [facility] Body Weight 2022-09-09 00:00:00 3008 [oz_av] [facility] BP Diastolic 2022-07-15 00:00:00 74 mm[Hg] [facility] Height 2022-07-15 00:00:00 68 [in_i] Pending sale to [facility] BMI (Body Mass Index) 2022-07-15 00:00:00 29 kg[facility]m2 [facility] [facility] BP Systolic 2022-07-15 00:00:00 114 mm[Hg] [facility] Body Weight 2022-07-15 00:00:00 3048 [oz_av] [facility] BP Diastolic 2022-06-06 00:00:00 74 mm[Hg] [facility] Height 2022-06-06 00:00:00 68 [in_i] Pending sale to [facility] BMI (Body Mass Index) 2022-06-06 00:00:00 28.7 kg/m2 [facility] BP Systolic 2022-06-06 00:00:00 120 mm[Hg] [facility] Body Weight 2022-06-06 00:00:00 3024 [oz_av] [facility] Body height 2022-04-22 14:15:00 [facility] Body weight 2022-04-22 14:15:00 82.555 [facility] BMI 2022-04-22 14:15:00 33.29 kg/m2 [facility] BP Diastolic 2022-03-07 00:00:00 72 mm[Hg] [facility] Height 2022-03-07 00:00:00 68 [in_i] Pending sale to [facility] BMI (Body Mass Index) 2022-03-07 00:00:00 29.3 kg/m2 [facility] BP Systolic 2022-03-07 00:00:00 116 mm[Hg] [facility] Body Weight 2022-03-07 00:00:00 3088 [oz_av] [facility] BP Diastolic 2021-12-06 00:00:00 62 mm[Hg] [facility] Height 2021-12-06 00:00:00 68 [in_i] Pending sale to [facility] BMI (Body Mass Index) 2021-12-06 00:00:00 29.2 kg/m2 [facility] BP Systolic 2021-12-06 00:00:00 108 mm[Hg] [facility] Body Weight 2021-12-06 00:00:00 3072 [oz_av] [facility] BP Diastolic 2021-10-30 00:00:00 70 mm[Hg] [facility] Height 2021-10-30 00:00:00 68 [in_i] Pending sale to [facility] BMI (Body Mass Index) 2021-10-30 00:00:00 29.2 kg/m2 [facility] BP Systolic 2021-10-30 00:00:00 112 mm[Hg] [facility] Body Weight 2021-10-30 00:00:00 3072 [oz_av] [facility] BP Diastolic 2021-10-15 00:00:00 82 mm[Hg] [facility] Height 2021-10-15 00:00:00 68 [in_i] Pending sale to [facility] BMI (Body Mass Index) 2021-10-15 00:00:00 29.3 kg/m2 [facility] BP Systolic 2021-10-15 00:00:00 116 mm[Hg] [facility] Body Weight 2021-10-15 00:00:00 3088 [oz_av] [facility] BP Diastolic 2021-10-02 00:00:00 78 mm[Hg] [facility] Height 2021-10-02 00:00:00 68 [in_i] Pending sale to [facility] BP Systolic 2021-10-02 00:00:00 116 mm[Hg] [facility] Height 2021-05-07 00:00:00 68 [in_i] Pending sale to [facility] BP Diastolic 2021 00:00:00 62 mm[Hg] [facility] Height 2021 00:00:00 68 [in_i] Pending sale to [facility] BMI (Body Mass Index) 2021 00:00:00 29.6 kg/m2 [facility] BP Systolic 2021 00:00:00 106 mm[Hg] [facility] Body Weight 2021 00:00:00 3112 [oz_av] [facility] BP Diastolic 2021-01-02 00:00:00 62 mm[Hg] [facility] Height 2021-01-02 00:00:00 68 [in_i] Pending sale to [facility] BMI (Body Mass Index) 2021-01-02 00:00:00 29.3 kg/m2 [facility] BP Systolic 2021-01-02 00:00:00 102 mm[Hg] [facility] Body Weight 2021-01-02 00:00:00 3088 [oz_av] [facility] BP Diastolic 2020-10-03 00:00:00 82 mm[Hg] [facility] Height 2020-10-03 00:00:00 68 [in_i] Pending sale to [facility] BMI (Body Mass Index) 2020-10-03 00:00:00 30 kg/m2 [facility] BP Systolic 2020-10-03 00:00:00 128 mm[Hg] [facility] Body Weight 2020-10-03 00:00:00 3152 [oz_av] [facility] Procedures Procedure Date / Time Performed Performing Clinician Source CT, neck, w/o contrast 2021-10-02 00:00:[address] [facility] [address], head, w/o contrast 2021-10-02 00:00:[address] [facility] [address], cervical spine, w/o contrast 2021-10-02 00:00:00 [facility] Cardiac Pacemaker Procedure [facility] Prostatectomy (Turp) [facility] Cholecystectomy [facility] Shoulder Joint Surgery [facility] Total Replacement of Hip [facility] Knee Surgery [facility] Plan of Care Planned Activity Planned Date Details Comments Source Diagnostic Test Pending 2023-06-16 00:00:00 lipid panel, serum [code = lipid panel, serum] [facility] Diagnostic Test Pending 2023-06-16 00:00:00 CMP, serum or plasma [code = CMP, serum or plasma] [facility] Diagnostic Test Pending 2023-06-16 00:00:00 CBC w/ auto diff [code = CBC w/ auto diff] [facility] Diagnostic Test Pending 2023-06-16 00:00:00 vitamin D, 25-hydroxy, total, serum [code = vitamin D, 25-hydroxy, total, serum] [facility] Diagnostic Test Pending 2023-06-16 00:00:00 TSH + free T4, serum [code = TSH + free T4, serum] [facility] Diagnostic Test Pending 2023-06-16 00:00:00 HbA1c (hemoglobin A1c), blood [code = HbA1c (hemoglobin A1c), blood] [facility] Diagnostic Test Pending 2023-06-16 00:00:00 urinalysis, complete [code = urinalysis, complete] [facility] Diagnostic Test Pending 2023-06-16 00:00:00 PSA, serum or plasma [code = PSA, serum or plasma] [facility] Future Appointment 2023-12-15 00:00:00 Criselda Grier, [address]; [facility] G, [place] [address] [facility] Future Appointment 2023-08-16 00:00:00 Wilbur Olmstead; Alvin Casey, SHANEL Aguilar [phone] [facility] Future Appointment 2023-08-14 08:30:00 Wilbur Olmstead [address]; Alvni Casey, [place]AN[place] Agu[place] [phone] [facility] Encounters Start Date/Time End Date/Time Encounter Type Admission Type Attending Clinicians Care Facility Care Department Encounter ID Source 2022-10-15 11:25:24 Outpatient [facility] [id number] [facility] 2022-04-22 08:37:07 Outpatient [facility] [id number] [facility] 2022-04-18 09:41:06 Outpatient [facility] [id number] [facility] 2022-04-17 09:44:45 Outpatient [facility] [id number] [facility] 2023-06-16 00:00:00 2023-06-16 00:00:00 GEORGE Olmstead-C: [address], [place], [place] [address] , Ph. [phone] [place] [address], DR. CARRERO [id number] [facility] 2023-06-13 00:00:00 2023-06-13 00:00:00 Outpatient [facility] [id number] [facility] 2023-04-14 00:00:00 2023-04-14 00:00:00 Outpatient [facility] [id number] [facility] 2023-04-14 00:00:00 2023-04-14 00:00:00 Outpatient [facility] [id number] [facility] 2023-04-14 00:00:00 2023-04-14 00:00:00 Jamari Carrero, DO: [address], [place] [address] , Ph. [facility], DR. CARRERO [id number] [facility] 2023-03-08 00:00:00 2023-03-08 00:00:00 Outpatient [facility] [id number] [facility] 2023-02-11 00:00:00 2023-02-11 00:00:00 Jamari Carrero, DO: [address], [place] [address] , Ph. [phone] [facility], DR. CARRERO [id number] [facility] 2023-01-24 00:00:00 2023-01-24 00:00:00 Outpatient [facility] [id number] [facility] 2023-01-12 00:00:00 2023-01-12 00:00:00 Outpatient [facility] [id number] [facility] 2022-12-20 00:00:00 2022-12-20 00:00:00 Outpatient [facility] [id number] [facility] 2022-12-12 00:00:00 2022-12-12 00:00:00 Jamari Carrero, DO: [address], [place] [address] , Ph. [phone] [facility], DR. CARRERO [id number] [facility] 2022-12-08 00:00:00 2022-12-08 00:00:00 Outpatient [facility] [id number] [facility] 2022-12-08 00:00:00 2022-12-08 00:00:00 Outpatient [facility] [id number] [place] [facility] 2022-09-09 00:00:00 2022-09-09 00:00:00 Jamari Carrero, DO: [address] [place] [address] , Ph. [phone] [facility], [address] CARRERO [id number] [place] 2022-08-20 00:00:00 2022-08-20 00:00:00 Outpatient [facility] [id number] [facility] 2022-07-15 00:00:00 2022-07-15 00:00:00 Outpatient [facility] [id number] [place] 2022-07-15 00:00:00 2022-07-15 00:00:00 Outpatient [facility] [id number] [place] [facility] 2022-07-15 00:00:00 2022-07-15 00:00:00 Jamari Carrero, DO: [address] Saul, SHANEL Agu[place] [address] , Ph. [facility], DR. CARRERO [id number] [place] [facility] 2022-06-06 00:00:00 2022-06-06 00:00:00 Outpatient [facility] [id number] [facility] 2022-06-06 00:00:00 2022-06-06 00:00:00 Jamari Carrero, DO: [place] [address] , Ph. [phone] [facility], [address] CARRERO [id number] [facility] 2022-04-22 00:00:00 2022-04-22 12:05:51 Outpatient [facility] [id number] [facility] 2022-04-22 09:00:00 2022-04-22 09:36:16 Office Visit Fernando Harris [facility] 2 [id number] [facility] 2022-03-11 00:00:00 2022-03-11 00:00:00 Outpatient MAGAN_Ada [facility] [id number] [facility] 2022-03-07 00:00:00 2022-03-07 00:00:00 Outpatient [facility] [id number] [place] [facility] 2022-03-07 00:00:00 2022-03-07 00:00:00 Jamari Carrero, DO: [address], [place] [address] , Ph. [facility], DR. CARRERO [id number] [facility] 2022-03-07 00:00:00 2022-03-07 00:00:00 Outpatient Jamari Carrero [facility] [id number] 2022-01-04 11:16:00 2022-01-04 11:16:00 Outpatient ERMARCOS_R [facility] [id number] [place] [facility] 2021-12-06 02:18:00 2021-12-06 02:18:00 Outpatient [facility]MARCOS[facility] [id number] [facility] 2021-12-06 00:00:00 2021-12-06 00:00:00 Jamari Carrero, DO: [address] [place] [address] , Ph. [phone] [facility], DR. CARRERO [id number] [facility] 2021-12-06 00:00:00 2021-12-06 00:00:00 Outpatient Jamari Carrero [facility] [id number] 2021-11-20 10:33:00 2021-11-20 10:33:00 Outpatient MAGAN_R [facility] [id number] [facility] 2021-10-30 12:00:00 2021-10-30 12:00:00 Outpatient [facility] [id number] [facility] 2021-10-30 00:00:00 2021-10-30 00:00:00 Jamari Carrero, DO: [address] [place] [address] , Ph. [facility], DR. CARRERO [id number] [facility] 2021-10-30 00:00:00 2021-10-30 00:00:00 Outpatient Jamari Carrero [facility] [id number] 2021-10-15 11:27:00 2021-10-15 11:27:00 Outpatient ER[facility]ARCOS[facility]R [facility] [id number] [facility] 2021-10-15 00:00:00 2021-10-15 00:00:00 Jamari Carrero, DO: [address] [place] [address] , Ph. [facility], DR. CARRERO [id number] [facility] 2021-10-15 00:00:00 2021-10-15 00:00:00 Outpatient Jamari Carrero [facility] [id number] 2021-10-02 12:47:00 2021-10-02 12:47:00 Outpatient ERMARCOS_R [facility] [id number] [facility] 2021-10-02 00:00:00 2021-10-02 00:00:00 Jamari Carrero, DO: [address] [place] [address] , Ph. [facility], DR. CARRERO [id number] [facility] 2021-10-02 00:00:00 2021-10-02 00:00:00 Outpatient Jamari Carrero [facility] [id number] 2021-10-02 00:00:00 2021-10-02 00:00:00 Outpatient Jamari Carrero [facility] [id number] 2021-07-17 10:14:00 2021-07-17 10:14:00 Outpatient ERMARCOS_R [facility] [id number] [facility] 2021-07-17 00:00:00 2021-07-17 00:00:00 Jamari Carrero, DO: [address] [place] [address] , Ph. [phone] [facility], DR. CARRERO [id number] [facility] 2021-05-07 11:42:00 2021-05-07 11:42:00 Outpatient [facility] [id number] [place] [facility] 2021-05-07 00:00:00 2021-05-07 00:00:00 Jamari Carrero, DO: [address] [place] [address] , Ph. [facility], DR. CARRERO [id number] [facility] 2021 10:54:00 2021 10:54:00 Outpatient ERERROLON_R [facility] [id number] [facility] 2021 00:00:00 2021 00:00:00 Outpatient Jamari Carrero [facility] [id number] 2021 00:00:00 2021 00:00:00 Jamari Carrero, DO: [address] [place] [address] , Ph. [facility], DR. CARRERO [id number] [facility] 2021-02-20 12:57:00 2021-02-20 12:57:00 Outpatient [facility] [id number] [place] [facility] 2021-01-02 10:21:00 2021-01-02 10:21:00 Outpatient [facility] [id number] [place] [facility] 2021-01-02 00:00:00 2021-01-02 00:00:00 Outpatient Jamari Carrero [facility] [id number] 2021-01-02 00:00:00 2021-01-02 00:00:00 Jamari Carrero, DO: [address], [place] [address] , Ph. [phone] [facility], [address] CARRERO [id number] [facility] 2020-10-03 09:55:00 2020-10-03 09:55:00 Outpatient [facility] [id number] [facility] 2020-10-03 00:00:00 2020-10-03 00:00:00 Outpatient Jamari Carrero [facility] [id number] 2020-10-03 00:00:00 2020-10-03 00:00:00 Jamari Carrero, DO: [address], [place] [address] , Ph. [facility], DR. CARRERO [id number] [facility] 2020-08-01 08:35:00 2020-08-01 08:35:00 Outpatient ERMARCOS_R [facility] [id number] [facility] of [facility]
[2023-08-04 23:49] LABS: Absolute Lymphocytes (CBC) 1.7 K/uL (0.7-4.9); Hematocrit 40.2 % (39.6-49.0); MCV 106.2 fL (80-100); MPV 7.1 fL (7.6-11.3); Platelets 191 thou/uL (152-406); RBC Red Blood Cell Count 3.78 M/uL (4.33-5.43)
[2023-08-05 00:18] LABS: Protime INR 1.31
[2023-08-05 00:27] LABS: Albumin 3.5 g/dL (3.4-5.0); Bilirubin Direct 0.3 mg/dL (0-0.2); Bilirubin Indirect, Calculated 1.1 mg/dL (0.2-0.8); Bilirubin Total 1.4 mg/dL (0.2-1.0); Potassium 3.9 mEq/L (3.5-5.1)
[2023-08-05 00:41] LABS: Troponin High Sensitivity 131.9 pg/mL (<58.9)
[2023-08-05 01:00] LABS: Blood Morphology Comment NOTED (NOT SEEN); Macrocytosis 1+; Platelet Estimate ADEQ; White Blood Cell Scan OK (OK)
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
--- NOTE | 2023-08-05 02:14 | ER ---
Nurse's Notes [facility] Name: Charlie Hart Age: 88 yrs Sex: Male : 1935 Arrival Date: 08/04/2023 Time: 23:06 Bed 2 Private MD: Diagnosis: Subsequent non-ST elevation (NSTEMI) myocardial infarction;Acute NSTEMI Presentation: 08/04 23:09 Chief complaint: Patient states: chest pain of 7 with SOB,onset 2100 with rapid HR. pf1 [facility] stated gave patient 324mg ASA and FSBGL 154 VENEER SAMPLE MAKER. Patient stated he was getting up to go to the restroom with onset of chest pain. 23:09 Coronavirus screen: Vaccine status: Client denies travel out of the [place] in the last 14 pf1 days. At this time, the client does not indicate any symptoms associated with coronavirus-19. Ebola Screen: Patient negative for fever greater than or equal to 101.5 degrees Fahrenheit, and additional compatible Ebola Virus Disease symptoms. Initial Sepsis Screen: Does the patient meet any 2 criteria? No. Patient's initial sepsis screen is negative. Does the patient have a suspected source of infection? No. Patient's initial sepsis screen is negative. Risk Assessment: Do you want to hurt yourself or someone else? Patient reports no desire to harm self or others. 23:09 Method Of Arrival: EMS: [facility] pf1 23:09 Acuity: CLAUDINE 2 pf1 Historical: - Allergies: 23:47 No Known Allergies; pf1 - PMHx: 23:47 CAD; chronic kidney disease; CVA; GERD; Hyperlipidemia; Hypertension; macular pf1 degeneration; osteoarthritis; Pre-Diabetes; Prostate Cancer; stroke; West Nile Virus; - PSHx: 23:47 cataract repair; Cholecystectomy; hip/shoulder replacement; pacemaker (ou); pf1 23:48 bilateral knee replacement; pf1 - Immunization history:: Adult Immunizations up to date, 4 doses combination of pfizer and moderna Last tetanus immunization: > 10 years ago Flu vaccine is up to date. - Social history:: Smoking status: Patient denies any tobacco usage or history of. Patient/guardian denies using alcohol, street drugs. - Family history:: not pertinent. Screenin:29 [facility] ED Fall Risk Assessment (Adult) History of falling in the last 3 months, jj7 including since admission No falls in past 3 months (0 pts) Confusion or Disorientation No (0 pts) Intoxicated or Sedated Yes (3 pts) Impaired Gait No (0 pts) Mobility Assist Device Used No (0 pt) Altered Elimination No (0 pt) Score/Fall Risk Level 0 - 2 = Low Risk Oriented to surroundings, Maintained a safe environment, Assessed \T\ reinforced patient's understanding of fall precautions. Abuse screen: Denies injuries from another. Nutritional screening: No deficits noted. Tuberculosis screening: No symptoms or risk factors identified. Assessment: 23:29 General: Appears in no apparent distress. comfortable, Behavior is calm, cooperative, jj7 appropriate for age. Pain: Complains of pain in chest Pain does not radiate. Cardiovascular: Reports chest pain. Vital Signs: 23:09 BP 130 / 76; Pulse 66; Resp 17; Temp 98.2; Pulse Ox 98% on R/A; Weight 74.84 kg; Height pf1 5 ft. 8 in. ; Pain 7/10; 08/05 00:24 BP 100 / 72; Pulse 70; Resp 17; Pulse Ox 100% ; jj7 01:00 BP 119 / 77; Pulse 66; Resp 17; Pulse Ox 99% on R/A; rv 02:00 BP 134 / 84; Pulse 79; Resp 17; Pulse Ox 99% on R/A; rv 03:00 BP 106 / 72; Pulse 68; Resp 17; Temp 98; Pulse Ox 99% on R/A; rv 08/04 23:09 Body Mass Index 25.09 (74.84 kg, 172.72 cm) pf1 08/04 23:09 Pain Scale: Adult pf1 [place] Coma Score: 01:35 Eye Response: spontaneous(4). Motor Response: obeys commands(6). Verbal Response: sp4 oriented(5). Total: 15. 03:00 Eye Response: spontaneous(4). Motor Response: obeys commands(6). Verbal Response: rv oriented(5). Total: 15. ED Course: 08/04 23:09 Patient arrived in ED. jj6 23:09 Maintain EMS IV. Dressing intact. Good blood return noted. Site clean \T\ dry. Gauge \T\ pf 1 site: 20 gauge to RAC. 23:12 Chito Lantigua MD is Attending Physician. sp4 23:25 Basic Metabolic Panel Sent. jj7 23:26 CBC with Diff Sent. jj7 23:26 LFT's Sent. jj7 23:26 Magnesium Sent. jj7 23:26 NT PRO-BNP Sent. jj7 23:26 PT-INR Sent. jj7 23:26 Troponin HS Sent. jj7 23:29 Patient has correct armband on for positive identification. Call light in reach. Side jj7 rails up X2. Client placed on continuous cardiac and pulse oximetry monitoring. NIBP monitoring applied. nuclear monitoring technician on. Warm blanket given. 23:38 XRAY Chest (1 view) In Process Unspecified. EDMS 23:43 Triage completed. pf1 23:50 PT-INR Sent. jj7 08/05 00:41 Jann Ramey, RN is Primary Nurse. rv 01:45 Inserted saline lock: 20 gauge in left forearm, using aseptic technique. rv 02:11 initiated transfer to [facility] with Kayla \T\ 0151. Med/Surg beds unavailable. ER bed [facility] offered, doc to doc was done with Dr Scott. Pt accepted to [facility] ER \T\0211. Kayla Gallegos RN gave pt acceptance 0211. 03:14 No provider procedures requiring assistance completed. Patient transferred, IV remains rv in place. Patient maintains SpO2 saturation greater than 95% on room air. Administered Medications: 08/04 23:29 Drug: traMADol PO 50 mg PO once Route: PO; jj7 08/05 03:16 Follow up: Response: No adverse reaction rv 01:54 Drug: HEParin IV 5000 units IV at bolus once {Co-Signature: cyrus (Harjinder Rene rv RN).} Route: IV; Rate: bolus; Site: right antecubital; 03:16 Follow up: Response: No adverse reaction; IV Status: Completed infusion rv 01:55 Drug: Heparin ([place] Drip) 12 units/kg/[place] - ([place] [address] units, D5W IV 500 ml) IV at rv calculated rate Per protocol; Max initial rate 1000 units/hr {Co-Signature: cyrus (Harjinder Rene RN).} Route: IV; Rate: 900 calculated rate; Site: right antecubital; 03:16 Follow up: IV Status: Infusion continued upon transfer rv Medication: 08/04 23:29 VIS not applicable for this client. jj7 Outcome: 08/05 02:13 ER care complete, transfer ordered by MD. morales 03:15 Transferred by ground EMS to other acute care facility: [facility] ED. Transfer form rv completed. X-rays sent w/ patient. Note: REPORT GIVEN TO RICARDO VIZCAINO 03:15 Condition: good 03:15 Instructed on the need for transfer, 03:16 Patient left the ED. rv Signatures: Dispatcher [employer] EDMS Jann Ramey RN RN rv Lindsay Headj6 Harjinder Rene RN RN jj7 Kassidy Meyer RN RN pf1 Chito Lantigua MD MD sp4 Lisa Blackman Harjinder Britt RN jj7 Corrections: (The following items were deleted from the chart) 08/04 23:47 23:09 BP 130 / 76; Pulse 66bpm; Resp 17bpm; Pulse Ox 98% RA; 74.84 kg; Height 5 ft. 8 pf1 in.; BMI: 25.0; Pain 7/10, Adult; pf1
[2023-08-05 06:31] VITALS: O2SAT 99
[2023-08-05 06:41] VITALS: BP 106/72; TEMP 98
--- NOTE | 2023-08-05 17:15 | RAD REPORT ---
EXAM DESCRIPTION: RAD - Chest Single View - 08/04/2023 11:36 pm CLINICAL HISTORY: The patient is 88 years old and is Male; CHEST PAIN TECHNIQUE: Frontal view of the chest. COMPARISON: No relevant prior studies available. FINDINGS: LUNGS: Unremarkable. No consolidation. PLEURAL SPACE: Unremarkable. No pneumothorax. HEART: The cardiac silhouette is enlarged. MEDIASTINUM: Unremarkable. Normal mediastinal contour. BONES/JOINTS: A right shoulder prosthesis is present. No acute fracture. TUBES, LINES AND DEVICES: A left-sided pacemaker is noted. UPPER ABDOMEN: Unremarkable as visualized. IMPRESSION: Cardiomegaly without failure. Electronically signed by: Griselda Ballard MD 08/05/2023 12:15 AM SHOEMAKING FINISHER Due to temporary technical issues with the PACS/Fluency reporting system, reports are being signed by the in house radiologists without review as a courtesy to insure prompt reporting. The interpreting radiologist is fully responsible for the content of the report.
--- NOTE | 2023-08-06 17:37 | EKG ---
Test Date: 2023-08-04 Test Time: 23:13:01 [place] Machine Operator Helper: FERN MEASUREMENT RESULTS: Intervals: Rate: 61 OH: 118 QRSD: 196 QT: 486 QTc: 489 [place]: P: 45 OH: 118 QRS: -83 T: 77 INTERPRETIVE STATEMENTS: AV sequential or dual chamber electronic pacemaker Compared to ECG 12/13/2021 11:34:21 Sinus bradycardia no longer present First degree AV block no longer present Right bundle-branch block no longer present Electronically Signed On 08-06-23 17:34:32 LAW WRITER by Nick Harrington
== END ==
LOC: ER 23:06
DX: I22.2 Subsequent non-ST elevation (NSTEMI) myocardial infarction (principal); I21.4 Non-ST elevation (NSTEMI) myocardial infarction; I10 Essential (primary) hypertension; Z95.0 Presence of cardiac pacemaker; Z79.01 Long term (current) use of anticoagulants; Z86.73 Personal history of transient ischemic attack (TIA), and cerebral infarction without residual deficits
CPT/HCPCS: 36415; 71045; 80048; 80076; 83735; 83880; 84484; 85025; 85610; 93005; 96365; 99285

== ENCOUNTER → 2023-10-04 | Emergency (ER) | payer OTHER ==
[~2023-10-04] MED LIST changes: +ETOMIDATE 20 MG/10 ML VIAL IV ONE; -HEPARIN 5000 UNIT/ML 1 ML VIAL ONE; -HEPARIN/D5W 25,000 UNIT/500 ML BAG IV ONE; +MIDAZOLAM HCL 2 MG/2 ML INJ ONE; +NA CHLORIDE 0.9% 1,000 ML ONE; -TRAMADOL HCL 50 MG TAB ONE
--- OUTSIDE RECORDS SUMMARY | 2023-10-04 09:33 | XMS REPORT | Continuity of Care Document ---
Author Name Unknown Address [address] [facility] [address] [place] [address] [facility] Address [address] [facility] [address] [place] [address] Care Team Providers Care Staff Development Manager Name Role Phone Jamari Carrero Primary Care Physician ALEJANDRA LEWIS NATASHA Attending Clinician Unava ilable Tony Gautam X Attending Clinician Unavailable UNKNOWN Attending Clinician Unavailable Deyvi Celis [facility] Attending Clinician Unavailable Alvaro Ron Attending Clinician Unavailable MAGAN_Ada Attending Clinician Unavailable Steven CRUZ [facility] Attending Clinician [phone] Jamari Carrero Attending Clinician [phone] ALEJANDRA LEWIS NATASHA Admitting Clinician Unava ilable Dain Adnan X Admitting Clinician Unavailable Deyvi Celis [facility]iology Admitting Clinician Unavailable KNOW, DOES_NOT Admitting Clinician Unavailable Alvaro Ron Admitting Clinician Unavailable MAGAN_R Admitting Clinician Unavailable Payers Payer Name Policy Type Policy Number Effective Date Expirati on Date Source AETNA MEDICAL [id number] 2015 00:00:00 AETM AETM [id number] AETNA (PPO) [id number] 2022 00:00:00 AETNA (INDEMNITY) [id number] 2000 00:00:00 2022 00:00:00 [place]: [employer] [id number] 2000 00:00:00 Problems Condition Name Condition Details Condition Category Status Onset Date Resolution Date Last Treatment Date Treating Clinician Comments Source 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 Problem Active 2022-07 00:00: 00 [facility] Dislocatio n of hip joint Dislocatio n of Hip Joint Problem Active 2022-07 00:00: 00 [facility] Macrocytic anemia Macrocytic Anemia Problem Active 07-30 00:00: 00 [facility] Chronic kidney disease stage 3B Chronic Kidney Disease Stage 3B Problem Active 2021-07 00:00: 00 [facility] Left bundle branch block Left Bundle Branch Block Problem Active 01-11 00:00: 00 [facility] 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 Problem Active 01-11 00:00: 00 [facility] Aortic stenosis, non-rheuma tic Aortic Stenosis, Non-rheuma tic Problem Active 01-11 00:00: 00 [facility] 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 10-03 00:00: 00 [facility] 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 Problem Active 01-16 00:00: 00 [facility] Chronic pain Chronic Pain Problem Active 01-09 00:00: 00 [facility] Hyperchole sterolemia Hyperchole sterolemia Problem Active 08-19 00:00: 00 [facility] Coronary arterioscl erosis Coronary Arterioscl erosis Problem Active 08-19 00:00: 00 [facility] Arthritis Arthritis Problem Active 08-19 00:00: 00 [facility] Fatigue Fatigue Problem Active 08-19 00:00: 00 [facility] History of meningitis History of Meningitis Problem Active 08-19 00:00: 00 [facility] History of cerebrovas cular accident History of Cerebrovas cular Accident Problem Active 08-19 00:00: 00 [facility] Allergies, Adverse Reactions, Alerts Allergy Name Allergy Type Status Severity Reaction(s) Onset Date Inactive Date Treating Clinician Comments Source No Known Allergie s DA Active U 08-09 00:00: 00 [facility] No Known Allergie s DA Active U 08-08 00:00: 00 [facility] No Known Allergie s DA Active U 12-13 00:00: 00 [facility] No Known Drug Intolera nces DA Active U 2008-07 00:00: 00 [facility] No Known Contrast Allergie s DA Active U 01-15 00:00: 00 [facility] No Known Food Allergie s DA Active U 01-15 00:00: 00 [facility] No Known Other Allergie s DA Active U 01-15 00:00: 00 [facility] Social History Social Habit Start Date Stop Date Quantity Comments Source Exposure to SARS-CoV-2 (event) 2022 00:00:00 2022-04-22 08:33:00 Not sure [facility] Tobacco use and exposure 2022-04-22 00:00:00 2022-04-22 00:00:00 Smokeless tobacco non-user [facility] Alcohol intake 2022-04-22 00:00:00 2022-04-22 00:00:00 Lifetime non-drinker (finding) [facility] Sex Assigned At 1935 00:00:00 1935 00:00:00 [facility] Smoking Status Start Date Stop Date Source Former Smoker [facility] Never smoked tobacco [facility] Medications Ordered Medication Name Filled Medication Name Start Date Stop Date Current Medication? Ordering Clinician Indication Dosage Frequency Signature (SIG) Comments Components Source atorvastati n 10 mg tablet TAKE 1 TABLET BY MOUTH AT BEDTIME atorvastati n 10 mg tablet TAKE 1 TABLET BY MOUTH AT BEDTIME No atorvastat in 10 mg tablet TAKE 1 TABLET BY MOUTH AT BEDTIME [facility] cephalexin 500 mg capsule TAKE 1 CAPSULE BY MOUTH TWICE DAILY WITH FOOD FOR 5 DAYS cephalexin 500 mg capsule TAKE 1 CAPSULE BY MOUTH TWICE DAILY WITH FOOD FOR 5 DAYS No cephalexin 500 mg capsule TAKE 1 CAPSULE BY MOUTH TWICE DAILY WITH FOOD FOR [address] [facility] clopidogrel 75 mg tablet TAKE 1 TABLET BY MOUTH DAILY clopidogrel 75 mg tablet TAKE 1 TABLET BY MOUTH DAILY No clopidogre l 75 mg tablet TAKE 1 TABLET BY MOUTH DAILY [facility] isosorbide mononitrate ER 30 mg tablet,exte nded release 24 hr TAKE 1 TABLET BY MOUTH EVERY DAY isosorbide mononitrate ER 30 mg tablet,exte nded release 24 hr TAKE 1 TABLET BY MOUTH EVERY DAY No isosorbide mononitrat e ER 30 mg tablet,ext ended release 24 hr TAKE 1 TABLET BY MOUTH EVERY DAY [facility] metoprolol succinate ER 25 mg tablet,exte nded release 24 hr TAKE 1 TABLET BY MOUTH EVERY DAY metoprolol succinate ER 25 mg tablet,exte nded release 24 hr TAKE 1 TABLET BY MOUTH EVERY DAY No metoprolol succinate ER 25 mg tablet,ext ended release 24 hr TAKE 1 TABLET BY MOUTH EVERY DAY [facility] tramadol 50 mg tablet TAKE 1 TABLET BY MOUTH EVERY DAY NEEDED tramadol 50 mg tablet TAKE 1 TABLET BY MOUTH EVERY DAY NEEDED No tramadol 50 mg tablet TAKE 1 TABLET BY MOUTH EVERY DAY NEEDED [facility] atorvastati n 10 mg tablet TAKE 1 TABLET BY MOUTH AT BEDTIME atorvastati n 10 mg tablet TAKE 1 TABLET BY MOUTH AT BEDTIME No atorvastat in 10 mg tablet TAKE 1 TABLET BY MOUTH AT BEDTIME [facility] clopidogrel 75 mg tablet TAKE 1 TABLET BY MOUTH DAILY clopidogrel 75 mg tablet TAKE 1 TABLET BY MOUTH DAILY No clopidogre l 75 mg tablet TAKE 1 TABLET BY MOUTH DAILY [facility] isosorbide mononitrate ER 30 mg tablet,exte nded release 24 hr TAKE 1 TABLET BY MOUTH EVERY DAY isosorbide mononitrate ER 30 mg tablet,exte nded release 24 hr TAKE 1 TABLET BY MOUTH EVERY DAY No isosorbide mononitrat e ER 30 mg tablet,ext ended release 24 hr TAKE 1 TABLET BY MOUTH EVERY DAY [facility] Low Dose Aspirin 81 mg tablet,emily yed release Take 1 tablet every day by oral route. Low Dose Aspirin 81 mg tablet,emily yed release Take 1 tablet every day by oral route. No 1 Q1D Low Dose Aspirin 81 mg tablet,del ayed release Take 1 tablet every day by oral route. [facility] metoprolol succinate ER 25 mg tablet,exte nded release 24 hr TAKE 1 TABLET BY MOUTH EVERY DAY metoprolol succinate ER 25 mg tablet,exte nded release 24 hr TAKE 1 TABLET BY MOUTH EVERY DAY No metoprolol succinate ER 25 mg tablet,ext ended release 24 hr TAKE 1 TABLET BY MOUTH EVERY DAY [facility] tramadol 50 mg tablet TAKE 1 TABLET BY MOUTH DAILY NEEDED FOR PAIN tramadol 50 mg tablet TAKE 1 TABLET BY MOUTH DAILY NEEDED FOR PAIN No tramadol 50 mg tablet TAKE 1 TABLET BY MOUTH DAILY NEEDED FOR PAIN [facility] atorvastati n 10 mg tablet TAKE 1 TABLET BY MOUTH AT BEDTIME atorvastati n 10 mg tablet TAKE 1 TABLET BY MOUTH AT BEDTIME No atorvastat in 10 mg tablet TAKE 1 TABLET BY MOUTH AT BEDTIME [facility] clopidogrel 75 mg tablet TAKE 1 TABLET BY MOUTH DAILY clopidogrel 75 mg tablet TAKE 1 TABLET BY MOUTH DAILY No clopidogre l 75 mg tablet TAKE 1 TABLET BY MOUTH DAILY [facility] isosorbide mononitrate ER 30 mg tablet,exte nded release 24 hr TAKE 1 TABLET BY MOUTH EVERY DAY isosorbide mononitrate ER 30 mg tablet,exte nded release 24 hr TAKE 1 TABLET BY MOUTH EVERY DAY No isosorbide mononitrat e ER 30 mg tablet,ext ended release 24 hr TAKE 1 TABLET BY MOUTH EVERY DAY [facility] Low Dose Aspirin 81 mg tablet,emily yed release Take 1 tablet every day by oral route. Low Dose Aspirin 81 mg tablet,emily yed release Take 1 tablet every day by oral route. No 1 Q1D Low Dose Aspirin 81 mg tablet,del ayed release Take 1 tablet every day by oral route. [facility] metoprolol succinate ER 25 mg tablet,exte nded release 24 hr TAKE 1 TABLET BY MOUTH EVERY DAY metoprolol succinate ER 25 mg tablet,exte nded release 24 hr TAKE 1 TABLET BY MOUTH EVERY DAY No metoprolol succinate ER 25 mg tablet,ext ended release 24 hr TAKE 1 TABLET BY MOUTH EVERY DAY [facility] tramadol 50 mg tablet TAKE 1 TABLET BY MOUTH DAILY NEEDED FOR PAIN tramadol 50 mg tablet TAKE 1 TABLET BY MOUTH DAILY NEEDED FOR PAIN No tramadol 50 mg tablet TAKE 1 TABLET BY MOUTH DAILY NEEDED FOR PAIN [facility] atorvastati n 10 mg tablet TAKE 1 TABLET BY MOUTH AT BEDTIME atorvastati n 10 mg tablet TAKE 1 TABLET BY MOUTH AT BEDTIME No atorvastat in 10 mg tablet TAKE 1 TABLET BY MOUTH AT BEDTIME [facility] clopidogrel 75 mg tablet TAKE 1 TABLET BY MOUTH DAILY clopidogrel 75 mg tablet TAKE 1 TABLET BY MOUTH DAILY No clopidogre l 75 mg tablet TAKE 1 TABLET BY MOUTH DAILY [facility] isosorbide mononitrate ER 30 mg tablet,exte nded release 24 hr TAKE 1 TABLET BY MOUTH EVERY DAY isosorbide mononitrate ER 30 mg tablet,exte nded release 24 hr TAKE 1 TABLET BY MOUTH EVERY DAY No isosorbide mononitrat e ER 30 mg tablet,ext ended release 24 hr TAKE 1 TABLET BY MOUTH EVERY DAY [facility] Low Dose Aspirin 81 mg tablet,emily yed release Take 1 tablet every day by oral route. Low Dose Aspirin 81 mg tablet,emily yed release Take 1 tablet every day by oral route. No 1 Q1D Low Dose Aspirin 81 mg tablet,del ayed release Take 1 tablet every day by oral route. [facility] metoprolol succinate ER 25 mg tablet,exte nded release 24 hr TAKE 1 TABLET BY MOUTH EVERY DAY metoprolol succinate ER 25 mg tablet,exte nded release 24 hr TAKE 1 TABLET BY MOUTH EVERY DAY No metoprolol succinate ER 25 mg tablet,ext ended release 24 hr TAKE 1 TABLET BY MOUTH EVERY DAY [facility] tramadol 50 mg tablet TAKE 1 TABLET BY MOUTH TWICE DAILY NEEDED FOR PAIN tramadol 50 mg tablet TAKE 1 TABLET BY MOUTH TWICE DAILY NEEDED FOR PAIN No tramadol 50 mg tablet TAKE 1 TABLET BY MOUTH TWICE DAILY NEEDED FOR PAIN [facility] atorvastati n 10 mg tablet TAKE 1 TABLET BY MOUTH AT BEDTIME atorvastati n 10 mg tablet TAKE 1 TABLET BY MOUTH AT BEDTIME No atorvastat in 10 mg tablet TAKE 1 TABLET BY MOUTH AT BEDTIME [facility] clopidogrel 75 mg tablet TAKE 1 TABLET BY MOUTH DAILY clopidogrel 75 mg tablet TAKE 1 TABLET BY MOUTH DAILY No clopidogre l 75 mg tablet TAKE 1 TABLET BY MOUTH DAILY [facility] isosorbide mononitrate ER 30 mg tablet,exte nded release 24 hr TAKE 1 TABLET BY MOUTH EVERY DAY isosorbide mononitrate ER 30 mg tablet,exte nded release 24 hr TAKE 1 TABLET BY MOUTH EVERY DAY No isosorbide mononitrat e ER 30 mg tablet,ext ended release 24 hr TAKE 1 TABLET BY MOUTH EVERY DAY [facility] Low Dose Aspirin 81 mg tablet,emily yed release Take 1 tablet every day by oral route. Low Dose Aspirin 81 mg tablet,emily yed release Take 1 tablet every day by oral route. No 1 Q1D Low Dose Aspirin 81 mg tablet,del ayed release Take 1 tablet every day by oral route. [facility] metoprolol succinate ER 25 mg tablet,exte nded release 24 hr TAKE 1 TABLET BY MOUTH EVERY DAY metoprolol succinate ER 25 mg tablet,exte nded release 24 hr TAKE 1 TABLET BY MOUTH EVERY DAY No metoprolol succinate ER 25 mg tablet,ext ended release 24 hr TAKE 1 TABLET BY MOUTH EVERY DAY [facility] atorvastati n 10 mg tablet TAKE 1 TABLET BY MOUTH AT BEDTIME atorvastati n 10 mg tablet TAKE 1 TABLET BY MOUTH AT BEDTIME No atorvastat in 10 mg tablet TAKE 1 TABLET BY MOUTH AT BEDTIME [facility] clopidogrel 75 mg tablet TAKE 1 TABLET BY MOUTH DAILY clopidogrel 75 mg tablet TAKE 1 TABLET BY MOUTH DAILY No clopidogre l 75 mg tablet TAKE 1 TABLET BY MOUTH DAILY [facility] isosorbide mononitrate ER 30 mg tablet,exte nded release 24 hr TAKE 1 TABLET BY MOUTH EVERY DAY isosorbide mononitrate ER 30 mg tablet,exte nded release 24 hr TAKE 1 TABLET BY MOUTH EVERY DAY No isosorbide mononitrat e ER 30 mg tablet,ext ended release 24 hr TAKE 1 TABLET BY MOUTH EVERY DAY [facility] Low Dose Aspirin 81 mg tablet,emily yed release Take 1 tablet every day by oral route. Low Dose Aspirin 81 mg tablet,emily yed release Take 1 tablet every day by oral route. No 1 Q1D Low Dose Aspirin 81 mg tablet,del ayed release Take 1 tablet every day by oral route. [facility] metoprolol succinate ER 25 mg tablet,exte nded release 24 hr TAKE 1 TABLET BY MOUTH EVERY DAY metoprolol succinate ER 25 mg tablet,exte nded release 24 hr TAKE 1 TABLET BY MOUTH EVERY DAY No metoprolol succinate ER 25 mg tablet,ext ended release 24 hr TAKE 1 TABLET BY MOUTH EVERY DAY [facility] tramadol 50 mg tablet TAKE 1 TABLET BY MOUTH TWICE DAILY NEEDED FOR PAIN tramadol 50 mg tablet TAKE 1 TABLET BY MOUTH TWICE DAILY NEEDED FOR PAIN No tramadol 50 mg tablet TAKE 1 TABLET BY MOUTH TWICE DAILY NEEDED FOR PAIN [facility] atorvastati n 10 mg tablet TAKE 1 TABLET BY MOUTH AT BEDTIME atorvastati n 10 mg tablet TAKE 1 TABLET BY MOUTH AT BEDTIME No atorvastat in 10 mg tablet TAKE 1 TABLET BY MOUTH AT BEDTIME [facility] clopidogrel 75 mg tablet TAKE 1 TABLET BY MOUTH DAILY clopidogrel 75 mg tablet TAKE 1 TABLET BY MOUTH DAILY No clopidogre l 75 mg tablet TAKE 1 TABLET BY MOUTH DAILY [facility] isosorbide mononitrate ER 30 mg tablet,exte nded release 24 hr TAKE 1 TABLET BY MOUTH EVERY DAY isosorbide mononitrate ER 30 mg tablet,exte nded release 24 hr TAKE 1 TABLET BY MOUTH EVERY DAY No isosorbide mononitrat e ER 30 mg tablet,ext ended release 24 hr TAKE 1 TABLET BY MOUTH EVERY DAY [facility] Low Dose Aspirin 81 mg tablet,emily yed release Take 1 tablet every day by oral route. Low Dose Aspirin 81 mg tablet,emily yed release Take 1 tablet every day by oral route. No 1 Q1D Low Dose Aspirin 81 mg tablet,del ayed release Take 1 tablet every day by oral route. [facility] metoprolol succinate ER 25 mg tablet,exte nded release 24 hr TAKE 1 TABLET BY MOUTH EVERY DAY metoprolol succinate ER 25 mg tablet,exte nded release 24 hr TAKE 1 TABLET BY MOUTH EVERY DAY No metoprolol succinate ER 25 mg tablet,ext ended release 24 hr TAKE 1 TABLET BY MOUTH EVERY DAY [facility] tramadol 50 mg tablet TAKE 1 TABLET BY MOUTH TWICE DAILY NEEDED FOR PAIN tramadol 50 mg tablet TAKE 1 TABLET BY MOUTH TWICE DAILY NEEDED FOR PAIN No tramadol 50 mg tablet TAKE 1 TABLET BY MOUTH TWICE DAILY NEEDED FOR PAIN [facility] atorvastati n 10 mg tablet TAKE 1 TABLET BY MOUTH AT BEDTIME atorvastati n 10 mg tablet TAKE 1 TABLET BY MOUTH AT BEDTIME No atorvastat in 10 mg tablet TAKE 1 TABLET BY MOUTH AT BEDTIME [facility] clopidogrel 75 mg tablet TAKE 1 TABLET BY MOUTH DAILY clopidogrel 75 mg tablet TAKE 1 TABLET BY MOUTH DAILY No clopidogre l 75 mg tablet TAKE 1 TABLET BY MOUTH DAILY [facility] hydrocortis one valerate 0.2 % topical cream [...] FOR ITCHING FOR [address] W[address]TH [facility] isosorbide mononitrate ER 30 mg tablet,exte nded release 24 hr TAKE 1 TABLET BY MOUTH EVERY DAY isosorbide mononitrate ER 30 mg tablet,exte nded release 24 hr TAKE 1 TABLET BY MOUTH EVERY DAY No isosorbide mononitrat e ER 30 mg tablet,ext ended release 24 hr TAKE 1 TABLET BY MOUTH EVERY DAY [facility] Low Dose Aspirin 81 mg tablet,emily yed release Take 1 tablet every other day by oral route. Low Dose Aspirin 81 mg tablet,emily yed release Take 1 tablet every other day by oral route. No 1 Q2D Low Dose Aspirin 81 mg tablet,del ayed release Take 1 tablet every other day by oral route. [facility] metoprolol succinate ER 25 mg tablet,exte nded release 24 hr TAKE 1 TABLET BY MOUTH EVERY DAY metoprolol succinate ER 25 mg tablet,exte nded release 24 hr TAKE 1 TABLET BY MOUTH EVERY DAY No metoprolol succinate ER 25 mg tablet,ext ended release 24 hr TAKE 1 TABLET BY MOUTH EVERY DAY [facility] tramadol 50 mg tablet TAKE 1 TABLET BY MOUTH TWICE DAILY NEEDED FOR PAIN tramadol 50 mg tablet TAKE 1 TABLET BY MOUTH TWICE DAILY NEEDED FOR PAIN No tramadol 50 mg tablet TAKE 1 TABLET BY MOUTH TWICE DAILY NEEDED FOR PAIN [facility] atorvastati n 10 mg tablet TAKE 1 TABLET BY MOUTH AT BEDTIME atorvastati n 10 mg tablet TAKE 1 TABLET BY MOUTH AT BEDTIME No atorvastat in 10 mg tablet TAKE 1 TABLET BY MOUTH AT BEDTIME [facility] clopidogrel 75 mg tablet TAKE 1 TABLET BY MOUTH DAILY clopidogrel 75 mg tablet TAKE 1 TABLET BY MOUTH DAILY No clopidogre l 75 mg tablet TAKE 1 TABLET BY MOUTH DAILY [facility] hydrocortis one valerate 0.2 % topical cream [...] FOR ITCHING FOR [address] W[address] [facility] isosorbide mononitrate ER 30 mg tablet,exte nded release 24 hr TAKE 1 TABLET BY MOUTH EVERY DAY isosorbide mononitrate ER 30 mg tablet,exte nded release 24 hr TAKE 1 TABLET BY MOUTH EVERY DAY No isosorbide mononitrat e ER 30 mg tablet,ext ended release 24 hr TAKE 1 TABLET BY MOUTH EVERY DAY [facility] metoprolol succinate ER 25 mg tablet,exte nded release 24 hr TAKE 1 TABLET BY MOUTH EVERY DAY metoprolol succinate ER 25 mg tablet,exte nded release 24 hr TAKE 1 TABLET BY MOUTH EVERY DAY No metoprolol succinate ER 25 mg tablet,ext ended release 24 hr TAKE 1 TABLET BY MOUTH EVERY DAY [facility] tramadol 50 mg tablet TAKE 1 TABLET BY MOUTH TWICE DAILY NEEDED FOR PAIN tramadol 50 mg tablet TAKE 1 TABLET BY MOUTH TWICE DAILY NEEDED FOR PAIN No tramadol 50 mg tablet TAKE 1 TABLET BY MOUTH TWICE DAILY NEEDED FOR PAIN [facility] atorvastati n 10 mg tablet TAKE 1 TABLET BY MOUTH AT BEDTIME atorvastati n 10 mg tablet TAKE 1 TABLET BY MOUTH AT BEDTIME No atorvastat in 10 mg tablet TAKE 1 TABLET BY MOUTH AT BEDTIME [facility] clopidogrel 75 mg tablet TAKE 1 TABLET BY MOUTH DAILY clopidogrel 75 mg tablet TAKE 1 TABLET BY MOUTH DAILY No clopidogre l 75 mg tablet TAKE 1 TABLET BY MOUTH DAILY [facility] hydrocortis one valerate 0.2 % topical cream [...] FOR ITCHING FOR [address] W[address] MONTH [facility] isosorbide mononitrate ER 30 mg tablet,exte nded release 24 hr TAKE 1 TABLET BY MOUTH EVERY DAY isosorbide mononitrate ER 30 mg tablet,exte nded release 24 hr TAKE 1 TABLET BY MOUTH EVERY DAY No isosorbide mononitrat e ER 30 mg tablet,ext ended release 24 hr TAKE 1 TABLET BY MOUTH EVERY DAY [facility] metoprolol succinate ER 25 mg tablet,exte nded release 24 hr TAKE 1 TABLET BY MOUTH EVERY DAY metoprolol succinate ER 25 mg tablet,exte nded release 24 hr TAKE 1 TABLET BY MOUTH EVERY DAY No metoprolol succinate ER 25 mg tablet,ext ended release 24 hr TAKE 1 TABLET BY MOUTH EVERY DAY [facility] tramadol 50 mg tablet TAKE 1 TABLET BY MOUTH TWICE DAILY NEEDED FOR PAIN tramadol 50 mg tablet TAKE 1 TABLET BY MOUTH TWICE DAILY NEEDED FOR PAIN No tramadol 50 mg tablet TAKE 1 TABLET BY MOUTH TWICE DAILY NEEDED FOR PAIN [facility] atorvastati n 10 mg tablet TAKE 1 TABLET BY MOUTH AT BEDTIME atorvastati n 10 mg tablet TAKE 1 TABLET BY MOUTH AT BEDTIME No atorvastat in 10 mg tablet TAKE 1 TABLET BY MOUTH AT BEDTIME [facility] clopidogrel 75 mg tablet TAKE 1 TABLET BY MOUTH DAILY clopidogrel 75 mg tablet TAKE 1 TABLET BY MOUTH DAILY No clopidogre l 75 mg tablet TAKE 1 TABLET BY MOUTH DAILY [facility] hydrocortis one valerate 0.2 % topical cream [...] FOR ITCHING FOR [address] W[address] MONTH [facility] isosorbide mononitrate ER 30 mg tablet,exte nded release 24 hr TAKE 1 TABLET BY MOUTH EVERY DAY isosorbide mononitrate ER 30 mg tablet,exte nded release 24 hr TAKE 1 TABLET BY MOUTH EVERY DAY No isosorbide mononitrat e ER 30 mg tablet,ext ended release 24 hr TAKE 1 TABLET BY MOUTH EVERY DAY [facility] metoprolol succinate ER 25 mg tablet,exte nded release 24 hr TAKE 1 TABLET BY MOUTH EVERY DAY metoprolol succinate ER 25 mg tablet,exte nded release 24 hr TAKE 1 TABLET BY MOUTH EVERY DAY No metoprolol succinate ER 25 mg tablet,ext ended release 24 hr TAKE 1 TABLET BY MOUTH EVERY DAY [facility] tramadol 50 mg tablet TAKE 1 TABLET BY MOUTH TWICE DAILY NEEDED FOR PAIN tramadol 50 mg tablet TAKE 1 TABLET BY MOUTH TWICE DAILY NEEDED FOR PAIN No tramadol 50 mg tablet TAKE 1 TABLET BY MOUTH TWICE DAILY NEEDED FOR PAIN [facility] atorvastati n 10 mg tablet TAKE 1 TABLET BY MOUTH AT BEDTIME atorvastati n 10 mg tablet TAKE 1 TABLET BY MOUTH AT BEDTIME No atorvastat in 10 mg tablet TAKE 1 TABLET BY MOUTH AT BEDTIME [facility] clopidogrel 75 mg tablet TAKE 1 TABLET BY MOUTH DAILY clopidogrel 75 mg tablet TAKE 1 TABLET BY MOUTH DAILY No clopidogre l 75 mg tablet TAKE 1 TABLET BY MOUTH DAILY [facility] hydrocortis one valerate 0.2 % topical cream [...] FOR ITCHING FOR [address] WEE[address] PER MONTH [facility] isosorbide mononitrate ER 30 mg tablet,exte nded release 24 hr TAKE 1 TABLET BY MOUTH EVERY DAY isosorbide mononitrate ER 30 mg tablet,exte nded release 24 hr TAKE 1 TABLET BY MOUTH EVERY DAY No isosorbide mononitrat e ER 30 mg tablet,ext ended release 24 hr TAKE 1 TABLET BY MOUTH EVERY DAY [facility] metoprolol succinate ER 25 mg tablet,exte nded release 24 hr TAKE 1 TABLET BY MOUTH EVERY DAY metoprolol succinate ER 25 mg tablet,exte nded release 24 hr TAKE 1 TABLET BY MOUTH EVERY DAY No metoprolol succinate ER 25 mg tablet,ext ended release 24 hr TAKE 1 TABLET BY MOUTH EVERY DAY [facility] tramadol 50 mg tablet TAKE 1 TABLET BY MOUTH TWICE DAILY NEEDED FOR PAIN tramadol 50 mg tablet TAKE 1 TABLET BY MOUTH TWICE DAILY NEEDED FOR PAIN No tramadol 50 mg tablet TAKE 1 TABLET BY MOUTH TWICE DAILY NEEDED FOR PAIN [facility] atorvastati n 10 mg tablet TAKE 1 TABLET BY MOUTH AT BEDTIME atorvastati n 10 mg tablet TAKE 1 TABLET BY MOUTH AT BEDTIME No atorvastat in 10 mg tablet TAKE 1 TABLET BY MOUTH AT BEDTIME [facility] clopidogrel 75 mg tablet TAKE 1 TABLET BY MOUTH DAILY clopidogrel 75 mg tablet TAKE 1 TABLET BY MOUTH DAILY No clopidogre l 75 mg tablet TAKE 1 TABLET BY MOUTH DAILY [facility] hydrocortis one valerate 0.2 % topical cream [...] FOR ITCHING FOR [address] [facility] isosorbide mononitrate ER 30 mg tablet,exte nded release 24 hr TAKE 1 TABLET BY MOUTH EVERY DAY isosorbide mononitrate ER 30 mg tablet,exte nded release 24 hr TAKE 1 TABLET BY MOUTH EVERY DAY No isosorbide mononitrat e ER 30 mg tablet,ext ended release 24 hr TAKE 1 TABLET BY MOUTH EVERY DAY [facility] metoprolol succinate ER 25 mg tablet,exte nded release 24 hr TAKE 1 TABLET BY MOUTH EVERY DAY metoprolol succinate ER 25 mg tablet,exte nded release 24 hr TAKE 1 TABLET BY MOUTH EVERY DAY No metoprolol succinate ER 25 mg tablet,ext ended release 24 hr TAKE 1 TABLET BY MOUTH EVERY DAY [facility] tramadol 50 mg tablet TAKE 1 TABLET BY MOUTH TWICE DAILY NEEDED FOR PAIN tramadol 50 mg tablet TAKE 1 TABLET BY MOUTH TWICE DAILY NEEDED FOR PAIN No tramadol 50 mg tablet TAKE 1 TABLET BY MOUTH TWICE DAILY NEEDED FOR PAIN [facility] atorvastati n 10 mg tablet TAKE 1 TABLET BY MOUTH AT BEDTIME atorvastati n 10 mg tablet TAKE 1 TABLET BY MOUTH AT BEDTIME No atorvastat in 10 mg tablet TAKE 1 TABLET BY MOUTH AT BEDTIME [facility] clopidogrel 75 mg tablet TAKE 1 TABLET BY MOUTH DAILY clopidogrel 75 mg tablet TAKE 1 TABLET BY MOUTH DAILY No clopidogre l 75 mg tablet TAKE 1 TABLET BY MOUTH DAILY [facility] hydrocortis one valerate 0.2 % topical cream [...] FOR ITCHING FOR [address] [facility] isosorbide mononitrate ER 30 mg tablet,exte nded release 24 hr TAKE 1 TABLET BY MOUTH EVERY DAY isosorbide mononitrate ER 30 mg tablet,exte nded release 24 hr TAKE 1 TABLET BY MOUTH EVERY DAY No isosorbide mononitrat e ER 30 mg tablet,ext ended release 24 hr TAKE 1 TABLET BY MOUTH EVERY DAY [facility] metoprolol succinate ER 25 mg tablet,exte nded release 24 hr TAKE 1 TABLET BY MOUTH EVERY DAY metoprolol succinate ER 25 mg tablet,exte nded release 24 hr TAKE 1 TABLET BY MOUTH EVERY DAY No metoprolol succinate ER 25 mg tablet,ext ended release 24 hr TAKE 1 TABLET BY MOUTH EVERY DAY [facility] tramadol 50 mg tablet TAKE 1 TABLET BY MOUTH TWICE DAILY NEEDED FOR PAIN tramadol 50 mg tablet TAKE 1 TABLET BY MOUTH TWICE DAILY NEEDED FOR PAIN No tramadol 50 mg tablet TAKE 1 TABLET BY MOUTH TWICE DAILY NEEDED FOR PAIN [facility] atorvastati n 10 mg tablet TAKE 1 TABLET BY MOUTH EVERY DAY AT BEDTIME atorvastati n 10 mg tablet TAKE 1 TABLET BY MOUTH EVERY DAY AT BEDTIME No atorvastat in 10 mg tablet TAKE 1 TABLET BY MOUTH EVERY DAY AT BEDTIME [facility] clopidogrel 75 mg tablet TAKE 1 TABLET BY MOUTH DAILY clopidogrel 75 mg tablet TAKE 1 TABLET BY MOUTH DAILY No clopidogre l 75 mg tablet TAKE 1 TABLET BY MOUTH DAILY [facility] hydrocortis one valerate 0.2 % topical cream [...] FOR ITCHING FOR [address] W[address] [facility] isosorbide mononitrate ER 30 mg tablet,exte nded release 24 hr TAKE 1 TABLET BY MOUTH EVERY DAY isosorbide mononitrate ER 30 mg tablet,exte nded release 24 hr TAKE 1 TABLET BY MOUTH EVERY DAY No isosorbide mononitrat e ER 30 mg tablet,ext ended release 24 hr TAKE 1 TABLET BY MOUTH EVERY DAY [facility] metoprolol succinate ER 25 mg tablet,exte nded release 24 hr TAKE 1 TABLET BY MOUTH EVERY DAY metoprolol succinate ER 25 mg tablet,exte nded release 24 hr TAKE 1 TABLET BY MOUTH EVERY DAY No metoprolol succinate ER 25 mg tablet,ext ended release 24 hr TAKE 1 TABLET BY MOUTH EVERY DAY [facility] tramadol 50 mg tablet TAKE 1 TABLET BY MOUTH TWICE DAILY NEEDED FOR PAIN tramadol 50 mg tablet TAKE 1 TABLET BY MOUTH TWICE DAILY NEEDED FOR PAIN No tramadol 50 mg tablet TAKE 1 TABLET BY MOUTH TWICE DAILY NEEDED FOR PAIN [facility] atorvastati n 10 mg tablet TAKE 1 TABLET BY MOUTH AT BEDTIME atorvastati n 10 mg tablet TAKE 1 TABLET BY MOUTH AT BEDTIME No atorvastat in 10 mg tablet TAKE 1 TABLET BY MOUTH AT BEDTIME [facility] clopidogrel 75 mg tablet TAKE 1 TABLET BY MOUTH DAILY clopidogrel 75 mg tablet TAKE 1 TABLET BY MOUTH DAILY No clopidogre l 75 mg tablet TAKE 1 TABLET BY MOUTH DAILY [facility] isosorbide mononitrate ER 30 mg tablet,exte nded release 24 hr TAKE 1 TABLET BY MOUTH ONCE DAILY isosorbide mononitrate ER 30 mg tablet,exte nded release 24 hr TAKE 1 TABLET BY MOUTH ONCE DAILY No isosorbide mononitrat e ER 30 mg tablet,ext ended release 24 hr TAKE 1 TABLET BY MOUTH ONCE DAILY [facility] tramadol 50 mg tablet TAKE 1 TABLET BY MOUTH EVERY DAY NEEDED tramadol 50 mg tablet TAKE 1 TABLET BY MOUTH EVERY DAY NEEDED No tramadol 50 mg tablet TAKE 1 TABLET BY MOUTH EVERY DAY NEEDED [facility] atorvastati n 10 mg tablet TAKE 1 TABLET BY MOUTH AT BEDTIME atorvastati n 10 mg tablet TAKE 1 TABLET BY MOUTH AT BEDTIME No atorvastat in 10 mg tablet TAKE 1 TABLET BY MOUTH AT BEDTIME [facility] clopidogrel 75 mg tablet TAKE 1 TABLET BY MOUTH DAILY clopidogrel 75 mg tablet TAKE 1 TABLET BY MOUTH DAILY No clopidogre l 75 mg tablet TAKE 1 TABLET BY MOUTH DAILY [facility] isosorbide mononitrate ER 30 mg tablet,exte nded release 24 hr TAKE 1 TABLET BY MOUTH ONCE DAILY isosorbide mononitrate ER 30 mg tablet,exte nded release 24 hr TAKE 1 TABLET BY MOUTH ONCE DAILY No isosorbide mononitrat e ER 30 mg tablet,ext ended release 24 hr TAKE 1 TABLET BY MOUTH ONCE DAILY [facility] tramadol 50 mg tablet TAKE 1 TABLET BY MOUTH EVERY DAY NEEDED tramadol 50 mg tablet TAKE 1 TABLET BY MOUTH EVERY DAY NEEDED No tramadol 50 mg tablet TAKE 1 TABLET BY MOUTH EVERY DAY NEEDED [facility] Immunizations Ordered Immunization Name Filled Immunization Name Date Status Comments Source Pneumococcal conjugate PCV20, polysaccharide [id number] conjugate, adjuvant, PF Pneumococcal conjugate PCV20, polysaccharide [id number] conjugate, adjuvant, PF 2022-09-09 00:00:00 [facility] Pneumococcal conjugate PCV20, polysaccharide [id number] conjugate, adjuvant, PF Pneumococcal conjugate PCV20, polysaccharide [id number] conjugate, adjuvant, PF 2022-09-09 00:00:00 [facility] Pneumococcal conjugate PCV20, polysaccharide [id number] conjugate, adjuvant, PF Pneumococcal conjugate PCV20, polysaccharide [id number] conjugate, adjuvant, PF 2022-09-09 00:00:00 [facility] influenza, high-dose, quadrivalent influenza, high-dose, quadrivalent 2022-04-25 00:00:00 [facility] influenza, high-dose, quadrivalent influenza, high-dose, quadrivalent 2022-04-25 00:00:00 [facility] influenza, high-dose, quadrivalent influenza, high-dose, quadrivalent 2022-04-25 00:00:00 [facility] influenza, high-dose, quadrivalent influenza, high-dose, quadrivalent 2022-04-25 00:00:00 [facility] influenza, high-dose, quadrivalent influenza, high-dose, quadrivalent 2022-04-25 00:00:00 [facility] influenza, high-dose, quadrivalent influenza, high-dose, quadrivalent 2022-04-25 00:00:00 [facility] Influenza, injectable, MDCK, preservative free, quadrivalent Influenza, injectable, MDCK, preservative free, quadrivalent 2021-05-07 11:45:39 [facility] Influenza, injectable, MDCK, preservative free, quadrivalent Influenza, injectable, MDCK, preservative free, quadrivalent 2021-05-07 11:45:39 [facility] Influenza, injectable, MDCK, preservative free, quadrivalent Influenza, injectable, MDCK, preservative free, quadrivalent 2021-05-07 11:45:39 [facility] Influenza, injectable, MDCK, preservative free, quadrivalent Influenza, injectable, MDCK, preservative free, quadrivalent 2021-05-07 11:45:39 Completed [facility] Influenza, injectable, MDCK, preservative free, quadrivalent Influenza, injectable, MDCK, preservative free, quadrivalent 2021-05-07 11:45:39 Completed [facility] Influenza, injectable, MDCK, preservative free, quadrivalent Influenza, injectable, MDCK, preservative free, quadrivalent 2021-05-07 11:45:39 Completed [facility] Influenza, injectable, MDCK, preservative free, quadrivalent Influenza, injectable, MDCK, preservative free, quadrivalent 2021-05-07 11:45:39 Completed [facility] Influenza, injectable, MDCK, preservative free, quadrivalent Influenza, injectable, MDCK, preservative free, quadrivalent 2021-05-07 11:45:39 [facility] Influenza, injectable, MDCK, preservative free, quadrivalent Influenza, injectable, MDCK, preservative free, quadrivalent 2021-05-07 11:45:39 [facility] Influenza, injectable, MDCK, preservative free, quadrivalent Influenza, injectable, MDCK, preservative free, quadrivalent 2021-05-07 11:45:39 [facility] Influenza, injectable, MDCK, preservative free, quadrivalent Influenza, injectable, MDCK, preservative free, quadrivalent 2021-05-07 11:45:39 [facility] Influenza, injectable, MDCK, preservative free, quadrivalent Influenza, injectable, MDCK, preservative free, quadrivalent 2021-05-07 11:45:39 [facility] SARS-COV-2 (COVID-19) vaccine, UNSPECIFIED SARS-COV-2 (COVID-19) vaccine, UNSPECIFIED 2020-10-18 00:00:00 Completed [facility] COVID-19 (SARS-COV-2) vaccine, unspecified COVID-19 (SARS-COV-2) vaccine, unspecified 2020-10-18 00:00:00 Completed [facility] COVID-19 (SARS-COV-2) vaccine, unspecified COVID-19 (SARS-COV-2) vaccine, unspecified 2020-10-18 00:00:00 [facility] COVID-19 (SARS-COV-2) vaccine, unspecified COVID-19 (SARS-COV-2) vaccine, unspecified 2020-10-18 00:00:00 Completed [facility] COVID-19 (SARS-COV-2) vaccine, unspecified COVID-19 (SARS-COV-2) vaccine, unspecified 2020-10-18 00:00:00 Completed [facility] COVID-19 (SARS-COV-2) vaccine, unspecified COVID-19 (SARS-COV-2) vaccine, unspecified 2020-10-18 00:00:00 Completed [facility] COVID-19 (SARS-COV-2) vaccine, unspecified COVID-19 (SARS-COV-2) vaccine, unspecified 2020-10-18 00:00:00 Completed [facility] COVID-19 (SARS-COV-2) vaccine, unspecified COVID-19 (SARS-COV-2) vaccine, unspecified 2020-10-18 00:00:00 Completed [facility] COVID-19 (SARS-COV-2) vaccine, unspecified COVID-19 (SARS-COV-2) vaccine, unspecified 2020-10-18 00:00:00 Completed [facility] COVID-19 (SARS-COV-2) vaccine, unspecified COVID-19 (SARS-COV-2) vaccine, unspecified 2020-10-18 00:00:00 Completed [facility] COVID-19 (SARS-COV-2) vaccine, unspecified COVID-19 (SARS-COV-2) vaccine, unspecified 2020-10-18 00:00:00 Completed [facility] COVID-19 (SARS-COV-2) vaccine, unspecified COVID-19 (SARS-COV-2) vaccine, unspecified 2020-10-18 00:00:00 Completed [facility] COVID-19 (SARS-COV-2) vaccine, unspecified COVID-19 (SARS-COV-2) vaccine, unspecified 2020-10-18 00:00:00 Completed [facility] SARS-COV-2 (COVID-19) vaccine, UNSPECIFIED SARS-COV-2 (COVID-19) vaccine, UNSPECIFIED 2020-10-18 00:00:00 Completed [facility] SARS-COV-2 (COVID-19) vaccine, UNSPECIFIED SARS-COV-2 (COVID-19) vaccine, UNSPECIFIED 2020-09-21 00:00:00 Completed [facility] COVID-19 (SARS-COV-2) vaccine, unspecified COVID-19 (SARS-COV-2) vaccine, unspecified 2020-09-21 00:00:00 Completed [facility] COVID-19 (SARS-COV-2) vaccine, unspecified COVID-19 (SARS-COV-2) vaccine, unspecified 2020-09-21 00:00:00 Completed [facility] COVID-19 (SARS-COV-2) vaccine, unspecified COVID-19 (SARS-COV-2) vaccine, unspecified 2020-09-21 00:00:00 Completed [facility] COVID-19 (SARS-COV-2) vaccine, unspecified COVID-19 (SARS-COV-2) vaccine, unspecified 2020-09-21 00:00:00 Completed [facility] COVID-19 (SARS-COV-2) vaccine, unspecified COVID-19 (SARS-COV-2) vaccine, unspecified 2020-09-21 00:00:00 Completed [facility] COVID-19 (SARS-COV-2) vaccine, unspecified COVID-19 (SARS-COV-2) vaccine, unspecified 2020-09-21 00:00:00 Completed [facility] COVID-19 (SARS-COV-2) vaccine, unspecified COVID-19 (SARS-COV-2) vaccine, unspecified 2020-09-21 00:00:00 Completed [facility] COVID-19 (SARS-COV-2) vaccine, unspecified COVID-19 (SARS-COV-2) vaccine, unspecified 2020-09-21 00:00:00 Completed [facility] COVID-19 (SARS-COV-2) vaccine, unspecified COVID-19 (SARS-COV-2) vaccine, unspecified 2020-09-21 00:00:00 Completed [facility] COVID-19 (SARS-COV-2) vaccine, unspecified COVID-19 (SARS-COV-2) vaccine, unspecified 2020-09-21 00:00:00 Completed [facility] COVID-19 (SARS-COV-2) vaccine, unspecified COVID-19 (SARS-COV-2) vaccine, unspecified 2020-09-21 00:00:00 Completed [facility] COVID-19 (SARS-COV-2) vaccine, unspecified COVID-19 (SARS-COV-2) vaccine, unspecified 2020-09-21 00:00:00 Completed [facility] SARS-COV-2 (COVID-19) vaccine, UNSPECIFIED SARS-COV-2 (COVID-19) vaccine, UNSPECIFIED 2020-09-21 00:00:00 Completed [facility] SARS-COV-2 (COVID-19) vaccine, UNSPECIFIED SARS-COV-2 (COVID-19) vaccine, UNSPECIFIED 2020-09-18 00:00:00 [facility] influenza, injectable, quadrivalent influenza, injectable, quadrivalent 2020-03-28 00:00:00 [facility] influenza, injectable, quadrivalent influenza, injectable, quadrivalent 2020-03-28 00:00:00 [facility] influenza, injectable, quadrivalent influenza, injectable, quadrivalent 2020-03-28 00:00:00 [facility] influenza, injectable, quadrivalent influenza, injectable, quadrivalent 2020-03-28 00:00:00 [facility] influenza, injectable, quadrivalent influenza, injectable, quadrivalent 2020-03-28 00:00:00 [facility] influenza, injectable, quadrivalent influenza, injectable, quadrivalent 2020-03-28 00:00:00 [facility] influenza, injectable, quadrivalent influenza, injectable, quadrivalent 2020-03-28 00:00:00 [facility] influenza, injectable, quadrivalent influenza, injectable, quadrivalent 2020-03-28 00:00:00 [facility] influenza, injectable, quadrivalent influenza, injectable, quadrivalent 2020-03-28 00:00:00 Completed [facility] influenza, injectable, quadrivalent influenza, injectable, quadrivalent 2020-03-28 00:00:00 Completed [facility] influenza, injectable, quadrivalent influenza, injectable, quadrivalent 2020-03-28 00:00:00 [facility] influenza, injectable, quadrivalent influenza, injectable, quadrivalent 2020-03-28 00:00:00 Completed [facility] influenza, injectable, quadrivalent influenza, injectable, quadrivalent 2020-03-28 00:00:00 [facility] influenza, injectable, quadrivalent influenza, injectable, quadrivalent 2020-03-28 00:00:00 [facility] influenza, injectable, quadrivalent influenza, injectable, quadrivalent 2020-03-28 00:00:00 [facility] influenza, injectable, quadrivalent influenza, injectable, quadrivalent 2019-05-04 00:00:00 [facility] influenza, injectable, quadrivalent influenza, injectable, quadrivalent 2019-05-04 00:00:00 [facility] influenza, injectable, quadrivalent influenza, injectable, quadrivalent 2019-05-04 00:00:00 [facility] influenza, injectable, quadrivalent influenza, injectable, quadrivalent 2019-05-04 00:00:00 [facility] influenza, injectable, quadrivalent influenza, injectable, quadrivalent 2019-05-04 00:00:00 [facility] influenza, injectable, quadrivalent influenza, injectable, quadrivalent 2019-05-04 00:00:00 [facility] influenza, injectable, quadrivalent influenza, injectable, quadrivalent 2019-05-04 00:00:00 [facility] influenza, injectable, quadrivalent influenza, injectable, quadrivalent 2019-05-04 00:00:00 [facility] influenza, injectable, quadrivalent influenza, injectable, quadrivalent 2019-05-04 00:00:00 [facility] influenza, injectable, quadrivalent influenza, injectable, quadrivalent 2019-05-04 00:00:00 [facility] influenza, injectable, quadrivalent influenza, injectable, quadrivalent 2019-05-04 00:00:00 [facility] influenza, injectable, quadrivalent influenza, injectable, quadrivalent 2019-05-04 00:00:00 Completed [facility] influenza, injectable, quadrivalent influenza, injectable, quadrivalent 2019-05-04 00:00:00 Completed [facility] influenza, injectable, quadrivalent influenza, injectable, quadrivalent 2019-05-04 00:00:00 [facility] influenza, injectable, quadrivalent influenza, injectable, quadrivalent 2019-05-04 00:00:00 [facility] Influenza, injectable, MDCK, preservative free, quadrivalent Influenza, injectable, MDCK, preservative free, quadrivalent Unknown Completed [facility] Pneumococcal conjugate PCV20, polysaccharide [id number] conjugate, adjuvant, PF Pneumococcal conjugate PCV20, polysaccharide [id number] conjugate, adjuvant, PF Unknown Completed [facility] influenza, high-dose, quadrivalent influenza, high-dose, quadrivalent Unknown Completed [facility] COVID-19 (SARS-COV-2) vaccine, unspecified COVID-19 (SARS-COV-2) vaccine, unspecified Unknown Completed [facility] COVID-19 (SARS-COV-2) vaccine, unspecified COVID-19 (SARS-COV-2) vaccine, unspecified Unknown Completed [facility] influenza, injectable, quadrivalent influenza, injectable, quadrivalent Unknown Completed [facility] influenza, injectable, quadrivalent influenza, injectable, quadrivalent Unknown Completed [facility] Influenza, injectable, MDCK, preservative free, quadrivalent Influenza, injectable, MDCK, preservative free, quadrivalent Unknown Completed [facility] Pneumococcal conjugate PCV20, polysaccharide [id number] conjugate, adjuvant, PF Pneumococcal conjugate PCV20, polysaccharide [id number] conjugate, adjuvant, PF Unknown Completed [facility] influenza, high-dose, quadrivalent influenza, high-dose, quadrivalent Unknown Completed [facility] COVID-19 (SARS-COV-2) vaccine, unspecified COVID-19 (SARS-COV-2) vaccine, unspecified Unknown Completed [facility] COVID-19 (SARS-COV-2) vaccine, unspecified COVID-19 (SARS-COV-2) vaccine, unspecified Unknown Completed [facility] influenza, injectable, quadrivalent influenza, injectable, quadrivalent Unknown Completed [facility] influenza, injectable, quadrivalent influenza, injectable, quadrivalent Unknown Completed [facility] Vital Signs Vital Name Observation Time Observation Value Comments S ource BP Diastolic 2023-06-16 00:00:00 70 mm[Hg] [facility] BMI (Body Mass Index) 2023-06-16 00:00:00 25.1 kg/m2 [facility] BP Systolic 2023-06-16 00:00:00 118 mm[Hg] [facility] Body Weight 2023-06-16 00:00:00 2640 [oz_av] [facility] Height 2023-06-16 00:00:00 68 [in_i] [facility] BMI (Body Mass Index) 2023-04-14 00:00:00 26.9 kg/m2 [facility] Body Weight 2023-04-14 00:00:00 2832 [oz_av] [facility] Height 2023-04-14 00:00:00 68 [in_i] [facility] BP Diastolic 2023-04-14 00:00:00 72 mm[Hg] [facility] BP Systolic 2023-04-14 00:00:00 120 mm[Hg] [facility] BP Diastolic 2023-02-11 00:00:00 74 mm[Hg] [facility] Height 2023-02-11 00:00:00 68 [in_i] [facility] BMI (Body Mass Index) 2023-02-11 00:00:00 27.2 kg/m2 [facility] BP Systolic 2023-02-11 00:00:00 124 mm[Hg] [facility] Body Weight 2023-02-11 00:00:00 2864 [oz_av] [facility] BP Diastolic 2022-12-12 00:00:00 70 mm[Hg] [facility] Height 2022-12-12 00:00:00 68 [in_i] [facility] BP Systolic 2022-12-12 00:00:00 116 mm[Hg] [facility] BP Diastolic 2022-09-09 00:00:00 72 mm[Hg] [facility] Height 2022-09-09 00:00:00 68 [in_i] [facility] BMI (Body Mass Index) 2022-09-09 00:00:00 28.6 kg/m2 [facility] BP Systolic 2022-09-09 00:00:00 120 mm[Hg] [facility] Body Weight 2022-09-09 00:00:00 3008 [oz_av] [facility] BP Diastolic 2022-07-15 00:00:00 74 mm[Hg] [facility] Height 2022-07-15 00:00:00 68 [in_i] [facility] BMI (Body Mass Index) 2022-07-15 00:00:00 29 kg/m2 [facility] BP Systolic 2022-07-15 00:00:00 114 mm[Hg] [facility] Body Weight 2022-07-15 00:00:00 3048 [oz_av] [facility] BP Diastolic 2022-06-06 00:00:00 74 mm[Hg] [facility] Height 2022-06-06 00:00:00 68 [in_i] [facility] BMI (Body Mass Index) 2022-06-06 00:00:00 28.7 kg/m2 [facility] BP Systolic 2022-06-06 00:00:00 120 mm[Hg] [facility] Body Weight 2022-06-06 00:00:00 3024 [oz_av] [facility] Body height 2022-04-22 14:15:00 157.5 cm [facility] Body weight 2022-04-22 14:15:00 82.555 kg [facility] BMI 2022-04-22 14:15:00 33.29 kg/m2 [facility] BP Diastolic 2022-03-07 00:00:00 72 mm[Hg] [facility] Height 2022-03-07 00:00:00 68 [in_i] [facility] BMI (Body Mass Index) 2022-03-07 00:00:00 29.3 kg/m2 [facility] BP Systolic 2022-03-07 00:00:00 116 mm[Hg] [facility] Body Weight 2022-03-07 00:00:00 3088 [oz_av] [facility] BP Diastolic 2021-12-06 00:00:00 62 mm[Hg] [facility] Height 2021-12-06 00:00:00 68 [in_i] [facility] BMI (Body Mass Index) 2021-12-06 00:00:00 29.2 kg/m2 [facility] BP Systolic 2021-12-06 00:00:00 108 mm[Hg] [facility] Body Weight 2021-12-06 00:00:00 3072 [oz_av] [facility] BP Diastolic 2021-10-30 00:00:00 70 mm[Hg] [facility] Height 2021-10-30 00:00:00 68 [in_i] [facility] BMI (Body Mass Index) 2021-10-30 00:00:00 29.2 kg/m2 [facility] BP Systolic 2021-10-30 00:00:00 112 mm[Hg] [facility] Body Weight 2021-10-30 00:00:00 3072 [oz_av] [facility] BP Diastolic 2021-10-15 00:00:00 82 mm[Hg] [facility] Height 2021-10-15 00:00:00 68 [in_i] [facility] BMI (Body Mass Index) 2021-10-15 00:00:00 29.3 kg/m2 [facility] BP Systolic 2021-10-15 00:00:00 116 mm[Hg] [facility] Body Weight 2021-10-15 00:00:00 3088 [oz_av] [facility] BP Diastolic 2021-10-02 00:00:00 78 mm[Hg] [facility] Height 2021-10-02 00:00:00 68 [in_i] [facility] BP Systolic 2021-10-02 00:00:00 116 mm[Hg] [facility] Height 2021-05-07 00:00:00 68 [in_i] [facility] BP Diastolic 2021 00:00:00 62 mm[Hg] [facility] Height 2021 00:00:00 68 [in_i] [facility] BMI (Body Mass Index) 2021 00:00:00 29.6 kg/m2 [facility] BP Systolic 2021 00:00:00 106 mm[Hg] [facility] Body Weight 2021 00:00:00 3112 [oz_av] [facility] BP Diastolic 2021-01-02 00:00:00 62 mm[Hg] [facility] Height 2021-01-02 00:00:00 68 [in_i] [facility] BMI (Body Mass Index) 2021-01-02 00:00:00 29.3 kg/m2 [facility] BP Systolic 2021-01-02 00:00:00 102 mm[Hg] [facility] Body Weight 2021-01-02 00:00:00 3088 [oz_av] [facility] BP Diastolic 2020-10-03 00:00:00 82 mm[Hg] [facility] Height 2020-10-03 00:00:00 68 [in_i] [facility] BMI (Body Mass Index) 2020-10-03 00:00:00 30 kg/m2 [facility] BP Systolic 2020-10-03 00:00:00 128 mm[Hg] [facility] Body Weight 2020-10-03 00:00:00 3152 [oz_av] [facility] Procedures Procedure Date / Time Performed Performing Clinician Source [id number] 2023-08-19 00:00:00 GREBR.01 [facility] [id number] 2023-08-19 00:00:00 [facility].01 [facility] [id number] 2023-08-19 00:00:00 GREBR.01 [facility] [id number] 2023-08-19 00:00:00 GREBR.01 [facility] [id number] 2023-08-19 00:00:00 GREBR.01 [facility] [id number] 2023-08-19 00:00:00 GREBR.01 [facility] [id number] 2023-08-19 00:00:00 GREBR.01 [facility] [id number] 2023-08-19 00:00:00 GREBR.01 [facility] [id number] 2023-08-19 00:00:00 GREBR.01 [facility] [id number] 2023-08-18 00:00:00 GREBR.01 [facility] [id number] 2023-08-18 00:00:00 GREBR.01 [facility] [id number] 2023-08-13 00:00:00 POREY [facility] [id number] 2023-08-13 00:00:00 POREY [facility] [id number] 2023-08-13 00:00:00 [facility] [id number] 2023-08-13 00:00:00 [facility] [id number] 2023-08-13 00:00:00 [facility] [id number] 2023-08-13 00:00:00 [facility] [id number] 2023-08-13 00:00:00 [facility] [id number] 2023-08-13 00:00:00 [facility] [id number] 2023-08-13 00:00:00 [facility]Y [facility] [id number] 2023-08-13 00:00:00 [facility] [id number] 2023-08-13 00:00:00 [facility] [id number] 2023-08-13 00:00:00 [facility] [id number] 2021-12-15 00:00:00 [facility] [id number] 2021-12-15 00:00:00 [facility] [id number] 2021-12-15 00:00:[address] [facility] [address], neck, w/o contrast 2021-10-02 00:00:[address] [facility] [address], head, w/o contrast 2021-10-02 00:00:[address] [facility] [address], cervical spine, w/o contrast 2021-10-02 00:00:00 [facility] Cardiac Pacemaker Procedure [facility] Prostatectomy (Turp) [facility] Cholecystectomy [facility] Shoulder Joint Surgery [facility] Total Replacement of Hip [facility] Knee Surgery [facility] Plan of Care Planned Activity Planned Date Details Comments Source Diagnostic Test Pending 2023-06-16 00:00:00 lipid panel, serum [code = lipid panel, serum] [facility] Diagnostic Test Pending 2023-06-16 00:00:00 CMP, serum or plasma [code = CMP, serum or plasma] [facility] Diagnostic Test Pending 2023-06-16 00:00:00 CBC w/ auto diff [code = CBC w/ auto diff] [facility] Diagnostic Test Pending 2023-06-16 00:00:00 vitamin D, 25-hydroxy, total, serum [code = vitamin D, 25-hydroxy, total, serum] [facility] Diagnostic Test Pending 2023-06-16 00:00:00 TSH + free T4, serum [code = TSH + free T4, serum] [facility] Diagnostic Test Pending 2023-06-16 00:00:00 HbA1c (hemoglobin A1c), blood [code = HbA1c (hemoglobin A1c), blood] [facility] Diagnostic Test Pending 2023-06-16 00:00:00 urinalysis, complete [code = urinalysis, complete] [facility] Diagnostic Test Pending 2023-06-16 00:00:00 PSA, serum or plasma [code = PSA, serum or plasma] [facility] Future Appointment 2023-12-15 00:00:00 Criselda Grier, [address]; [address], [place] [address] [facility] Instructions [facility] Encounters Start Date/Time End Date/Time Encounter Type Admission Type Attending Clinicians Care Facility Care Department Encounter ID Source 2022-10-15 11:25:24 Outpatient [facility] [id number] [facility] 2022-04-22 08:37:07 Outpatient [facility] [id number] [facility] 2022-04-18 09:41:06 Outpatient [facility] [id number] [facility] 2022-04-17 09:44:45 Outpatient [facility] [id number] [facility] 2023-08-26 19:07:00 2023-09-06 11:34:00 Inpatient 3 ALEJANDRA LEWIS ENCPL CRD [id number] [facility] Rehabil itation [facility] 2023-08-09 15:50:00 2023-08-26 18:17:00 Inpatient Tony Evangelista [facility] CARDIAC [id number] [facility] 2023-08-09 19:13:00 2023-08-09 19:13:00 Outpatient UNKNOWN [facility]ACL LABO [id number] [facility] 2023-08-09 19:12:00 2023-08-09 19:12:00 Outpatient Tony Gautam HCANW REF [id number] [facility] 2023-08-09 07:15:00 2023-08-09 07:15:00 Outpatient Deyvi Sanchez [facility] CATH [id number] [facility] 2023-08-09 07:15:00 2023-08-09 07:15:00 Outpatient Deyvi Sanchez [facility] [id number] [facility] 2023-08-05 06:03:00 2023-08-07 11:01:00 Inpatient Alvaro Jefferson [facility] INTE.02 [id number] [facility] 2023-06-16 00:00:00 2023-06-16 00:00:00 Criselda Grier [facility]: [address], [place] [address] , Ph. [phone] [facility], [address] C[address]ERO [id number] [facility] 2023-06-13 00:00:00 2023-06-13 00:00:00 Outpatient [facility] [id number] [facility] 2023-04-14 00:00:00 2023-04-14 00:00:00 Outpatient [facility] [id number] [facility] 2023-04-14 00:00:00 2023-04-14 00:00:00 Outpatient [facility] [id number] [facility] 2023-04-14 00:00:00 2023-04-14 00:00:00 Jamari Carrero, DO: [place] [address] , Ph. [phone] [facility], DR. CARRERO [id number] [facility] 2023-03-08 00:00:00 2023-03-08 00:00:00 Outpatient [facility] [id number] [facility] 2023-02-11 00:00:00 2023-02-11 00:00:00 Jamari Carrero, DO: [address] [place] [address] , Ph. [facility], DR. CARRERO [id number] [facility] 2023-01-24 00:00:00 2023-01-24 00:00:00 Outpatient [facility] [id number] [facility] 2023-01-12 00:00:00 2023-01-12 00:00:00 Outpatient [facility] [id number] [facility] 2022-12-20 00:00:00 2022-12-20 00:00:00 Outpatient [facility] [id number] [facility] 2022-12-12 00:00:00 2022-12-12 00:00:00 Jamari Carrero, DO: [address] [place] [address] , Ph. [facility], DR. CARRERO [id number] [facility] 2022-12-08 00:00:00 2022-12-08 00:00:00 Outpatient [facility] [id number] [facility] 2022-12-08 00:00:00 2022-12-08 00:00:00 Outpatient [facility] [id number] [facility] 2022-09-09 00:00:00 2022-09-09 00:00:00 Jamari Carrero, DO: [address] [place] [address] , Ph. [phone] [facility], DR[facility] CARRERO [id number] [facility] 2022-08-20 00:00:00 2022-08-20 00:00:00 Outpatient [facility] [id number] [facility] 2022-07-15 00:00:00 2022-07-15 00:00:00 Outpatient [facility] [id number] [facility] 2022-07-15 00:00:00 2022-07-15 00:00:00 Outpatient [facility] [id number] [facility] 2022-07-15 00:00:00 2022-07-15 00:00:00 Jamari Carrero, DO: [address], [place] [address] , Ph. [phone] [facility], [address] CARRERO [id number] [facility] 2022-06-06 00:00:00 2022-06-06 00:00:00 Outpatient [facility] [id number] [facility] 2022-06-06 00:00:00 2022-06-06 00:00:00 Jamari Carrero, DO: [address], [place] [address] , Ph. [facility], DR[facility] CARRERO [id number] [facility] 2022-04-22 00:00:00 2022-04-22 12:05:51 Outpatient [facility] [id number] [facility] 2022-04-22 09:00:00 2022-04-22 09:36:16 Office Visit Fernando Harris [facility] 2 [id number] [facility] 2022-03-11 00:00:00 2022-03-11 00:00:00 Outpatient [facility] [id number] [facility] 2022-03-07 00:00:00 2022-03-07 00:00:00 Outpatient [facility] [id number] [facility] 2022-03-07 00:00:00 2022-03-07 00:00:00 Jamari Carrero, DO: [address] [place] [address] , Ph. [phone] [facility], DR[facility] CARRERO [id number] [facility] 2022-03-07 00:00:00 2022-03-07 00:00:00 Outpatient Jamari Carrero [facility] [id number] 2022-01-04 11:16:00 2022-01-04 11:16:00 Outpatient [facility] [id number] [facility] 2021-12-13 17:13:00 2021-12-16 13:23:00 Inpatient EM Alvaro Ron [facility] INTE.02 [id number] [facility] 2021-12-13 17:13:00 2021-12-16 13:23:00 Inpatient EM Alvaro Ron [facility] INTE.02 [id number] [facility] 2021-12-06 02:18:00 2021-12-06 02:18:00 Outpatient [facility] [id number] [facility] 2021-12-06 00:00:00 2021-12-06 00:00:00 Jamari Carrero, DO: [address] [place] [address] , Ph. [facility], DR[facility] CARRERO [id number] [facility] 2021-12-06 00:00:00 2021-12-06 00:00:00 Outpatient Jamari Carrero [facility] [id number] 2021-11-20 10:33:00 2021-11-20 10:33:00 Outpatient [facility] [id number] [facility] 2021-10-30 12:00:00 2021-10-30 12:00:00 Outpatient [facility] [id number] [facility] 2021-10-30 00:00:00 2021-10-30 00:00:00 Jamari Carrero, DO: [address] [place] [address] , Ph. [facility], DR[facility] CARRERO [id number] [facility] 2021-10-30 00:00:00 2021-10-30 00:00:00 Outpatient Jamari Carrero [facility] [id number] 2021-10-15 11:27:00 2021-10-15 11:27:00 Outpatient ERERROLON_R [facility] [id number] [facility] 2021-10-15 00:00:00 2021-10-15 00:00:00 Jamari Carrero, DO: [address] [place] [address] , Ph. [phone] [facility], DR[facility] CARRERO [id number] [facility] 2021-10-15 00:00:00 2021-10-15 00:00:00 Outpatient Jamari Carrero [facility] [id number] 2021-10-02 12:47:00 2021-10-02 12:47:00 Outpatient [facility] [id number] [facility] 2021-10-02 00:00:00 2021-10-02 00:00:00 Jamari Carrero, DO: [address] [place] [address] , Ph. [facility], DR. CARRERO [id number] [facility] 2021-10-02 00:00:00 2021-10-02 00:00:00 Outpatient Jamari Carrero [facility] [id number] 2021-10-02 00:00:00 2021-10-02 00:00:00 Outpatient Jamari Carrero [facility] [id number] 2021-07-17 10:14:00 2021-07-17 10:14:00 Outpatient ERMARCOS_R [facility] [id number] [facility] 2021-07-17 00:00:00 2021-07-17 00:00:00 Jamari Carrero, DO: [address] [place] [address] , Ph. [facility], DR[facility] CARRERO [id number] [facility] 2021-05-07 11:42:00 2021-05-07 11:42:00 Outpatient [facility] [id number] [facility] 2021-05-07 00:00:00 2021-05-07 00:00:00 Jamari Carrero DO: [address] [place] [address] , Ph. [phone] [facility], [address] C[address]ERO [id number] [facility] 2021 10:54:00 2021 10:54:00 Outpatient [facility] [id number] [facility] 2021 00:00:00 2021 00:00:00 Outpatient Jamari Carrero [facility] [id number] 2021 00:00:00 2021 00:00:00 Jamari Carrero, DO: [address] [place] [address] , Ph. [facility], [address] CARRERO [id number] [facility] 2021-02-20 12:57:00 2021-02-20 12:57:00 Outpatient [facility] [id number] [facility] 2021-01-02 10:21:00 2021-01-02 10:21:00 Outpatient [facility] [id number] [facility] 2021-01-02 00:00:00 2021-01-02 00:00:00 Outpatient Jamari Carrero [facility] [id number] 2021-01-02 00:00:00 2021-01-02 00:00:00 Jamari Carrero, DO: [address] [place] [address] , Ph. [facility] [place] [facility], DR. C[address]ERO [id number] [facility] 2020-10-03 09:55:00 2020-10-03 09:55:00 Outpatient MAGAN_R [facility] [id number] [facility] 2020-10-03 00:00:00 2020-10-03 00:00:00 Outpatient Jamari Carrero [facility] [id number] 2020-10-03 00:00:00 2020-10-03 00:00:00 Jamari Carrero, DO: [address], [place] [address] , Ph. [facility], DR. C[address]ERO [id number] [facility] 2020-08-01 08:35:00 2020-08-01 08:35:00 Outpatient RADHA [facility] [id number] [facility] Results Test Description Test Time Test Comments Results Result Co mments Source [facility]2024-02-05 11:35:00* Test Item Value Reference Range Interpretation Comme nts LD (test code = 50139089) 212 U/L 120-250 N [facility] (DIFF/PLT)2023-09-01 11:35:00* Test Item Value Reference Range Interpretation Comme nts WHITE BLOOD CELL COUNT (test code = 14522826) 10.1 Thousand/uL 3.8-10.8 N RED BLOOD CELL COUNT (test code = 22862047) 2.85 Million/uL 4.20-5.80 L HEMOGLOBIN (test code = 05512737) 9.1 g/dL 13.2-17.1 L HEMATOCRIT (test code = 58211958) 27.6 % 38.5-50.0 L MCV (test code = 63806594) 96.8 fL 80.0-100.0 N MCH (test code = 77953795) 31.9 pg 27.0-33.0 N MCHC (test code = 07366830) 33.0 g/dL 32.0-36.0 N RDW (test code = 20222472) 19.5 % 11.0-15.0 H PLATELET COUNT (test code = 85748936) 216 Thousand/uL 140-400 N MPV (test code = 59794742) 9.7 fL 7.5-12.5 N ABSOLUTE NEUTROPHILS (test code = 01339457) 7464 cells/uL 4574-9592 N ABSOLUTE LYMPHOCYTES (test code = 01358953) 1273 cells/uL 850-3900 N ABSOLUTE MONOCYTES (test code = 63089785) 1091 cells/uL 200-950 H ABSOLUTE EOSINOPHILS (test code = 60720140) 202 cells/uL 15-500 N ABSOLUTE BASOPHILS (test code = 84105371) 71 cells/uL 0-200 N NEUTROPHILS (test code = 47803711) 73.9 % N LYMPHOCYTES (test code = 97452517) 12.6 % N MONOCYTES (test code = 28075007) 10.8 % N EOSINOPHILS (test code = 60893744) 2.0 % N BASOPHILS (test code = 22013873) 0.7 % N [facility] HOSPITALSI MET [id number] 14:34:00* Test Item Value Reference Range Interpretation Comme nts GLUCOSE (test code = 64840899) 97 mg/dL 65-99 N Fasting referenc e interval UREA NITROGEN (BUN) (test code = 55387555) 18 mg/dL 7-25 N CREATININE (test code = 60698871) 1.05 mg/dL 0.70-1.22 N EGFR (test code = 75919078) 68 mL/min/1.73m2 >=60 N BUN/CREATININE RATIO (test code = 62887283) SEE NOTE: (calc) 6-22 N Not Reported: BUN and Creatinine are within reference range. SODIUM (test code = 19042160) 134 mmol/L 135-146 L POTASSIUM (test code = 08456429) 4.7 mmol/L 3.5-5.3 N CHLORIDE (test code = 58206539) 96 mmol/L 98-110 L CARBON DIOXIDE (test code = 92519746) 30 mmol/L 20-32 N CALCIUM (test code = 58939252) 8.3 mg/dL 8.6-10.3 L [facility] HOSPITALHEPATIC FUNCTION [id number] 14:34:00* Test Item Value Reference Range Interpretation Comme nts PROTEIN, TOTAL (test code = 57765392) 5.9 g/dL 6.1-8.1 L ALBUMIN (test code = 50776403) 3.1 g/dL 3.6-5.1 L GLOBULIN (test code = 37576526) 2.8 g/dL (calc) 1.9-3.7 N ALBUMIN/GLOBULIN RATIO (test code = 55142169) 1.1 (calc) 1.0-2.5 N BILIRUBIN, TOTAL (test code = 60792218) 1.8 mg/dL 0.2-1.2 H BILIRUBIN, DIRECT (test code = 27487878) 0.5 mg/dL 0.0-0.2 H BILIRUBIN, INDIRECT (test code = 41932076) 1.3 mg/dL (calc) 0.2-1.2 H ALKALINE PHOSPHATASE (test code = 27932058) 90 U/L 35-144 N AST (test code = 40076961) 15 U/L 10-35 N ALT (test code = 89746676) 12 U/L 9-46 N [facility] HOSPITALCOMP META [id number] 12:22:00* Test Item Value Reference Range Interpretation Comme nts GLUCOSE (test code = 08573568) 90 mg/dL 65-99 N Fasting referenc e interval UREA NITROGEN (BUN) (test code = 78377680) 20 mg/dL 7-25 N CREATININE (test code = 77591977) 1.08 mg/dL 0.70-1.22 N EGFR (test code = 75616912) 66 mL/min/1.73m2 >=60 N BUN/CREATININE RATIO (test code = 01740642) SEE NOTE: (calc) 6-22 N Not Reported: BUN and Creatinine are within reference range. SODIUM (test code = 05545474) 134 mmol/L 135-146 L POTASSIUM (test code = 91909860) 4.4 mmol/L 3.5-5.3 N CHLORIDE (test code = 51413435) 98 mmol/L 98-110 N CARBON DIOXIDE (test code = 80271667) 28 mmol/L 20-32 N CALCIUM (test code = 02593816) 7.9 mg/dL 8.6-10.3 L PROTEIN, TOTAL (test code = 11994718) 5.6 g/dL 6.1-8.1 L ALBUMIN (test code = 39796482) 2.8 g/dL 3.6-5.1 L GLOBULIN (test code = 07218809) 2.8 g/dL (calc) 1.9-3.7 N ALBUMIN/GLOBULIN RATIO (test code = 55623479) 1.0 (calc) 1.0-2.5 N BILIRUBIN, TOTAL (test code = 99134349) 1.5 mg/dL 0.2-1.2 H ALKALINE PHOSPHATASE (test code = 86539669) 76 U/L 35-144 N AST (test code = 68658722) 16 U/L 10-35 N ALT (test code = 12631644) 11 U/L 9-46 N [facility] WITH [id number] 12:22:00* Test Item Value Reference Range Interpretation Comme [facility] (test code = 51496535) 1.3 H Reference Range 0.9-1.1Moderate-intensity Warfarin Therapy 2.0-3.0Higher-intensity Warfarin Therapy 3.0-4.0 PT (test code = 17819714) 13.1 sec 9.0-11.5 H For additional information, please refer tohttp://education.[employer]/faq/YQC094 (This link is being provided for informational/educational purposes only.) [facility]2023-08-28 12:22:00* Test Item Value Reference Range Interpretation Comme nts WHITE BLOOD CELL COUNT (test code = 30391822) 8.7 Thousand/uL 3.8-10.8 N RED BLOOD CELL COUNT (test code = 65775496) 2.70 Million/uL 4.20-5.80 L HEMOGLOBIN (test code = 25628892) 8.4 g/dL 13.2-17.1 L HEMATOCRIT (test code = 59607942) 25.5 % 38.5-50.0 L MCV (test code = 07219434) 94.4 fL 80.0-100.0 N MCH (test code = 65806420) 31.1 pg 27.0-33.0 N MCHC (test code = 37827882) 32.9 g/dL 32.0-36.0 N RDW (test code = 79344898) 19.9 % 11.0-15.0 H PLATELET COUNT (test code = 98739825) 363 Thousand/uL 140-400 N MPV (test code = 85427082) 9.4 fL 7.5-12.5 N ABSOLUTE NEUTROPHILS (test code = 76768146) 6308 cells/uL 4032-0477 N ABSOLUTE LYMPHOCYTES (test code = 73129966) 1148 cells/uL 850-3900 N ABSOLUTE MONOCYTES (test cod e = 01066184) 914 cells/uL 200-950 N ABSOLUTE EOSINOPHILS (test code = 27763276) 270 cells/uL 15-500 N ABSOLUTE BASOPHILS (test cod e = 80228534) 61 cells/uL 0-200 N NEUTROPHILS (test code = 95924217) 72.5 % N LYMPHOCYTES (test code = 10216747) 13.2 % N MONOCYTES (test code = 90010630) 10.5 % N EOSINOPHILS (test code = 01960677) 3.1 % N BASOPHILS (test code = 40560905) 0.7 % N [facility] [id number] 16:28:00* Test Item Value Reference Range Interpretation Comme nts GLUCOSE (test code = 55402457) 90 mg/dL 65-99 N Fasting referenc e interval UREA NITROGEN (BUN) (test code = 50046375) 22 mg/dL 7-25 N CREATININE (test code = 94307581) 1.03 mg/dL 0.70-1.22 N EGFR (test code = 30921557) 70 mL/min/1.73m2 >=60 N BUN/CREATININE RATIO (test code = 25161333) SEE NOTE: (calc) 6-22 N Not Reported: BUN and Creatinine are within reference range. SODIUM (test code = 14171798) 136 mmol/L 135-146 N POTASSIUM (test code = 26491002) 4.4 mmol/L 3.5-5.3 N CHLORIDE (test code = 48637777) 98 mmol/L 98-110 N CARBON DIOXIDE (test code = 19527513) 30 mmol/L 20-32 N CALCIUM (test code = 54389171) 7.7 mg/dL 8.6-10.3 L PROTEIN, TOTAL (test code = 82712275) 5.4 g/dL 6.1-8.1 L ALBUMIN (test code = 70019164) 2.7 g/dL 3.6-5.1 L GLOBULIN (test code = 50542580) 2.7 g/dL (calc) 1.9-3.7 N ALBUMIN/GLOBULIN RATIO (test code = 78357688) 1.0 (calc) 1.0-2.5 N BILIRUBIN, TOTAL (test code = 86246415) 1.2 mg/dL 0.2-1.2 N ALKALINE PHOSPHATASE (test code = 28859589) 72 U/L 35-144 N AST (test code = 70990993) 15 U/L 10-35 N ALT (test code = 81118107) 12 U/L 9-46 N [facility] [id number] 16:28:00* Test Item Value Reference Range Interpretation Comme [facility] (test code = 80517872) 1.2 H Reference Range 0.9-1.1Moderate-intensity Warfarin Therapy 2.0-3.0Higher-intensity Warfarin Therapy 3.0-4.0 PT (test code = 56547272) 12.4 sec 9.0-11.5 H For additional information, please refer [email or web address] (This link is being provided for informational/educational purposes only.) [facility] 16:28:00* Test Item Value Reference Range Interpretation Comme nts WHITE BLOOD CELL COUNT (test code = 65725798) 9.6 Thousand/uL 3.8-10.8 N RED BLOOD CELL COUNT (test code = 43307760) 2.67 Million/uL 4.20-5.80 L HEMOGLOBIN (test code = 99129970) 8.3 g/dL 13.2-17.1 L HEMATOCRIT (test code = 47889471) 25.3 % 38.5-50.0 L MCV (test code = 11774951) 94.8 fL 80.0-100.0 N MCH (test code = 90601872) 31.1 pg 27.0-33.0 N MCHC (test code = 88598978) 32.8 g/dL 32.0-36.0 N RDW (test code = 16104288) 20.1 % 11.0-15.0 H PLATELET COUNT (test code = 45684548) 363 Thousand/uL 140-400 N MPV (test code = 16444774) 9.8 fL 7.5-12.5 N ABSOLUTE NEUTROPHILS (test code = 27503871) 7354 cells/uL 9431-6038 N ABSOLUTE LYMPHOCYTES (test code = 48902842) 1056 cells/uL 850-3900 N ABSOLUTE MONOCYTES (test cod e = 53645403) 912 cells/uL 200-950 N ABSOLUTE EOSINOPHILS (test code = 41959887) 240 cells/uL 15-500 N ABSOLUTE BASOPHILS (test cod e = 40767815) 38 cells/uL 0-200 N NEUTROPHILS (test code = 71440743) 76.6 % N LYMPHOCYTES (test code = 67300163) 11.0 % N MONOCYTES (test code = 43527193) 9.5 % N EOSINOPHILS (test code = 58416687) 2.5 % N BASOPHILS (test code = 38747344) 0.4 % N [facility] [id number] 06:05:00* Test Item Value Reference Range Interpretation Comme nts SODIUM (test code = NA) 138 mmol/L 136-145 N POTASSIUM (test code = K) 4.5 mmol/L 3.5-5.1 N CHLORIDE (test code = CL) 102 mmol/l 98-107 N CARBON DIOXIDE (test code = CO2) 32 mmol/L 20-31 H GLUCOSE (test code = GLU) 93 mg/dL 74-106 N BLOOD UREA NITROGEN (test code = BUN) 20 mg/dL 9-23 N GLOMERULAR FILTRATION RATE (test code = GFR) >=60 max estimate mL/min >60 The Glomerular Filtration Rate is a calculated parameterbased on serum Creatinine, patient age and sex. GFR valuesless than 60 mL/min/1.73 square meters are indicative ofChronic Kidney Disease. Values less than 15 mL/min/1.73square meters indicate Kidney failure. The calculation forGFR is based on the CKD-EPI (2020) calculation. This formulais race indifferent and is the recommended formula for GFRby the National Kidney Foundation for Adults.The GFR will not calculate if the sex is unknown or if thepatient's age is <18 years. CREATININE (test code = CREAT) 0.90 mg/dL 0.70-1.30 N TOTAL PROTEIN (test code = PROT) 5.9 g/dL 5.7-8.2 N ALBUMIN (test code = ALB) 3.2 g/dL 3.2-4.8 N CALCIUM (test code = CA) 8.0 mg/dL 8.7-10.4 L BILIRUBIN TOTAL (test code = BILT) 2.0 mg/dL 0.3-1.2 H SGOT/AST (test code = AST) 24 U/L <34 N SGPT/ALT (test code = ALT) 12 U/L 10-49 N ALKALINE PHOSPHATASE (test code = ALKP) 72.0 U/L 46-116 N CBC W/AUTO [id number] 05:40:00* Test Item Value Reference Range Interpretation Comme nts WHITE BLOOD CELL (test code = WBC) 12.4 x10 3/uL 4.8-10.8 H RED BLOOD CELL (test code = RBC) 2.77 x10 6/uL 4.70-6.10 L HEMOGLOBIN (test code = HGB) 8.6 g/dL 14.0-18.0 L HEMATOCRIT (test code = HCT) 27.3 % 42.0-52.0 L MEAN CELL VOLUME (test code = MCV) 98.6 fL 80.0-94.0 H MEAN CELL HGB (test code = MCH) 31.0 pg 27-31 N MEAN CELL HGB CONCENTRATION (test code = MCHC) 31.5 G/DL 33-36.5 L RED CELL DISTRIBUTION WIDTH (test code = RDW) 21.7 % 12.9-16.9 H PLATELET COUNT (test code = PLT) 339 x10 3/uL 150-440 N MEAN PLATELET VOLUME (test c ode = MPV) 9.6 fL 8.9-12.4 N NEUTROPHIL % (test code = NT%) 80.3 % 42.2-75.2 H LYMPHOCYTE % (test code = LY%) 8.0 % 20.5-51.1 L MONOCYTE % (test code = MO%) 8.1 % 1.7-9.3 N EOSINOPHIL % (test code = EO%) 2.6 % 0.0-7.0 N BASOPHIL % (test code = BA%) 0.4 % 0-2.5 N NEUTROPHIL # (test code = NT#) 9.98 x10 3/uL 1.80-7.70 H LYMPHOCYTE # (test code = LY#) 0.99 x10 3/uL 1.00-4.80 L MONOCYTE # (test code = MO#) 1.00 x10 3/uL 0.00-0.80 H EOSINOPHIL # (test code = EO#) 0.32 x10 3/uL 0.00-0.45 N BASOPHIL # (test code = BA#) 0.05 x10 3/uL 0.0-0.20 N BASIC METABOLIC [id number] 06:22:00* Test Item Value Reference Range Interpretation Comme nts SODIUM (test code = NA) 142 mmol/L 136-145 N POTASSIUM (test code = K) 4.1 mmol/L 3.5-5.1 N CHLORIDE (test code = CL) 103 mmol/l 98-107 N CARBON DIOXIDE (test code = CO2) 34 mmol/L 20-31 H GLUCOSE (test code = GLU) 117 mg/dL 74-106 H BLOOD UREA NITROGEN (test code = BUN) 26 mg/dL 9-23 H GLOMERULAR FILTRATION RATE (test code = GFR) >=60 max estimate mL/min >60 The Glomerular Filtration Rate is a calculated parameterbased on serum Creatinine, patient age and sex. GFR valuesless than 60 mL/min/1.73 square meters are indicative ofChronic Kidney Disease. Values less than 15 mL/min/1.73square meters indicate Kidney failure. The calculation forGFR is based on the CKD-EPI (202) calculation. This formulais race indifferent and is the recommended formula for GFRby the National Kidney Foundation for Adults.The GFR will not calculate if the sex is unknown or if thepatient's age is <18 years. CREATININE (test code = CREAT) 1.00 mg/dL 0.70-1.30 N CALCIUM (test code = CA) 8.2 mg/dL 8.7-10.4 L CBC W/AUTO [id number] 05:54:00* Test Item Value Reference Range Interpretation Comme nts WHITE BLOOD CELL (test code = WBC) 12.3 x10 3/uL 4.8-10.8 H RED BLOOD CELL (test code = RBC) 2.80 x10 6/uL 4.70-6.10 L HEMOGLOBIN (test code = HGB) 8.7 g/dL 14.0-18.0 L HEMATOCRIT (test code = HCT) 27.6 % 42.0-52.0 L MEAN CELL VOLUME (test code = MCV) 98.6 fL 80.0-94.0 H MEAN CELL HGB (test code = MCH) 31.1 pg 27-31 H MEAN CELL HGB CONCENTRATION (test code = MCHC) 31.5 G/DL 33-36.5 L RED CELL DISTRIBUTION WIDTH (test code = RDW) 22.5 % 12.9-16.9 H PLATELET COUNT (test code = PLT) 317 x10 3/uL 150-440 N MEAN PLATELET VOLUME (test c ode = MPV) 9.9 fL 8.9-12.4 N NEUTROPHIL % (test code = NT%) 78.5 % 42.2-75.2 H LYMPHOCYTE % (test code = LY%) 8.4 % 20.5-51.1 L MONOCYTE % (test code = MO%) 8.1 % 1.7-9.3 N EOSINOPHIL % (test code = EO%) 3.7 % 0.0-7.0 N BASOPHIL % (test code = BA%) 0.3 % 0-2.5 N NEUTROPHIL # (test code = NT#) 9.62 x10 3/uL 1.80-7.70 H LYMPHOCYTE # (test code = LY#) 1.03 x10 3/uL 1.00-4.80 N MONOCYTE # (test code = MO#) 1.00 x10 3/uL 0.00-0.80 H EOSINOPHIL # (test code = EO#) 0.46 x10 3/uL 0.00-0.45 H BASOPHIL # (test code = BA#) 0.04 x10 3/uL 0.0-0.20 N [id number] 20:51:00* Test Item Value Reference Range Interpretation Comme nts GLUBED (test code = GLUBED) 85 MG/DL 70-105 N BASIC METABOLIC [id number] 03:54:00* Test Item Value Reference Range Interpretation Comme nts SODIUM (test code = NA) 143 mmol/L 136-145 N POTASSIUM (test code = K) 4.1 mmol/L 3.5-5.1 N CHLORIDE (test code = CL) 105 mmol/l 98-107 N CARBON DIOXIDE (test code = CO2) 30 mmol/L 20-31 N GLUCOSE (test code = GLU) 102 mg/dL 74-106 N BLOOD UREA NITROGEN (test code = BUN) 29 mg/dL 9-23 H GLOMERULAR FILTRATION RATE (test code = GFR) >=60 max estimate mL/min >60 The Glomerular Filtration Rate is a calculated parameterbased on serum Creatinine, patient age and sex. GFR valuesless than 60 mL/min/1.73 square meters are indicative ofChronic Kidney Disease. Values less than 15 mL/min/1.73square meters indicate Kidney failure. The calculation forGFR is based on the CKD-EPI (2020) calculation. This formulais race indifferent and is the recommended formula for GFRby the National Kidney Foundation for Adults.The GFR will not calculate if the sex is unknown or if thepatient's age is <18 years. CREATININE (test code = CREAT) 1.10 mg/dL 0.70-1.30 N CALCIUM (test code = CA) 8.0 mg/dL 8.7-10.4 L [id number] 03:54:00* Test Item Value Reference Range Interpretation Comme nts PHOSPHOROUS (test code = PHOS) 3.9 mg/dL 2.4-5.1 N [id number] 03:54:00* Test Item Value Reference Range Interpretation Comme nts MAGNESIUM (test code = MAG) 2.0 mg/dL 1.6-2.6 N CBC W/AUTO [id number] 03:43:00* Test Item Value Reference Range Interpretation Comme nts WHITE BLOOD CELL (test code = WBC) 11.1 x10 3/uL 4.8-10.8 H RED BLOOD CELL (test code = RBC) 2.90 x10 6/uL 4.70-6.10 L HEMOGLOBIN (test code = HGB) 9.2 g/dL 14.0-18.0 L HEMATOCRIT (test code = HCT) 28.2 % 42.0-52.0 L MEAN CELL VOLUME (test code = MCV) 97.2 fL 80.0-94.0 H MEAN CELL HGB (test code = MCH) 31.7 pg 27-31 H MEAN CELL HGB CONCENTRATION (test code = MCHC) 32.6 G/DL 33-36.5 L RED CELL DISTRIBUTION WIDTH (test code = RDW) 22.4 % 12.9-16.9 H PLATELET COUNT (test code = PLT) 265 x10 3/uL 150-440 N MEAN PLATELET VOLUME (test c ode = MPV) 9.7 fL 8.9-12.4 N NEUTROPHIL % (test code = NT%) 75.3 % 42.2-75.2 H LYMPHOCYTE % (test code = LY%) 9.2 % 20.5-51.1 L MONOCYTE % (test code = MO%) 10.5 % 1.7-9.3 H EOSINOPHIL % (test code = EO%) 3.2 % 0.0-7.0 N BASOPHIL % (test code = BA%) 0.4 % 0-2.5 N NEUTROPHIL # (test code = NT#) 8.37 x10 3/uL 1.80-7.70 H LYMPHOCYTE # (test code = LY#) 1.02 x10 3/uL 1.00-4.80 N MONOCYTE # (test code = MO#) 1.16 x10 3/uL 0.00-0.80 H EOSINOPHIL # (test code = EO#) 0.36 x10 3/uL 0.00-0.45 N BASOPHIL # (test code = BA#) 0.04 x10 3/uL 0.0-0.20 N BASIC METABOLIC [id number] 04:44:00* Test Item Value Reference Range Interpretation Comme nts SODIUM (test code = NA) 143 mmol/L 136-145 N POTASSIUM (test code = K) 3.9 mmol/L 3.5-5.1 N CHLORIDE (test code = CL) 104 mmol/l 98-107 N CARBON DIOXIDE (test code = CO2) 33 mmol/L 20-31 H GLUCOSE (test code = GLU) 105 mg/dL 74-106 N BLOOD UREA NITROGEN (test code = BUN) 32 mg/dL 9-23 H GLOMERULAR FILTRATION RATE (test code = GFR) >=60 max estimate mL/min >60 The Glomerular Filtration Rate is a calculated parameterbased on serum Creatinine, patient age and sex. GFR valuesless than 60 mL/min/1.73 square meters are indicative ofChronic Kidney Disease. Values less than 15 mL/min/1.73square meters indicate Kidney failure. The calculation forGFR is based on the CKD-EPI (2020) calculation. This formulais race indifferent and is the recommended formula for GFRby the National Kidney Foundation for Adults.The GFR will not calculate if the sex is unknown or if thepatient's age is <18 years. CREATININE (test code = CREAT) 1.10 mg/dL 0.70-1.30 N CALCIUM (test code = CA) 7.8 mg/dL 8.7-10.4 L [id number] 04:44:00* Test Item Value Reference Range Interpretation Comme nts PHOSPHOROUS (test code = PHOS) 3.4 mg/dL 2.4-5.1 N [id number] 04:44:00* Test Item Value Reference Range Interpretation Comme nts MAGNESIUM (test code = MAG) 1.9 mg/dL 1.6-2.6 N CBC W/AUTO [id number] 04:37:00* Test Item Value Reference Range Interpretation Comme nts WHITE BLOOD CELL (test code = WBC) 12.2 x10 3/uL 4.8-10.8 H RED BLOOD CELL (test code = RBC) 2.68 x10 6/uL 4.70-6.10 L HEMOGLOBIN (test code = HGB) 8.4 g/dL 14.0-18.0 L HEMATOCRIT (test code = HCT) 26.4 % 42.0-52.0 L MEAN CELL VOLUME (test code = MCV) 98.5 fL 80.0-94.0 H MEAN CELL HGB (test code = MCH) 31.3 pg 27-31 H MEAN CELL HGB CONCENTRATION (test code = MCHC) 31.8 G/DL 33-36.5 L RED CELL DISTRIBUTION WIDTH (test code = RDW) 22.2 % 12.9-16.9 H PLATELET COUNT (test code = PLT) 228 x10 3/uL 150-440 N MEAN PLATELET VOLUME (test c ode = MPV) 10.0 fL 8.9-12.4 N NEUTROPHIL % (test code = NT%) 75.5 % 42.2-75.2 H LYMPHOCYTE % (test code = LY%) 8.8 % 20.5-51.1 L MONOCYTE % (test code = MO%) 10.4 % 1.7-9.3 H EOSINOPHIL % (test code = EO%) 3.5 % 0.0-7.0 N BASOPHIL % (test code = BA%) 0.4 % 0-2.5 N NEUTROPHIL # (test code = NT#) 9.19 x10 3/uL 1.80-7.70 H LYMPHOCYTE # (test code = LY#) 1.07 x10 3/uL 1.00-4.80 N MONOCYTE # (test code = MO#) 1.26 x10 3/uL 0.00-0.80 H EOSINOPHIL # (test code = EO#) 0.43 x10 3/uL 0.00-0.45 N BASOPHIL # (test code = BA#) 0.05 x10 3/uL 0.0-0.20 N BASIC METABOLIC [id number] 04:18:00* Test Item Value Reference Range Interpretation Comme nts SODIUM (test code = NA) 143 mmol/L 136-145 N POTASSIUM (test code = K) 3.8 mmol/L 3.5-5.1 N CHLORIDE (test code = CL) 102 mmol/l 98-107 N CARBON DIOXIDE (test code = CO2) 35 mmol/L 20-31 H GLUCOSE (test code = GLU) 99 mg/dL 74-106 N BLOOD UREA NITROGEN (test code = BUN) 28 mg/dL 9-23 H GLOMERULAR FILTRATION RATE (test code = GFR) >=60 max estimate mL/min >60 The Glomerular Filtration Rate is a calculated parameterbased on serum Creatinine, patient age and sex. GFR valuesless than 60 mL/min/1.73 square meters are indicative ofChronic Kidney Disease. Values less than 15 mL/min/1.73square meters indicate Kidney failure. The calculation forGFR is based on the CKD-EPI (202) calculation. This formulais race indifferent and is the recommended formula for GFRby the National Kidney Foundation for Adults.The GFR will not calculate if the sex is unknown or if thepatient's age is <18 years. CREATININE (test code = CREAT) 1.10 mg/dL 0.70-1.30 N CALCIUM (test code = CA) 7.8 mg/dL 8.7-10.4 L ADD ON TEST? [id number] 04:18:00* Test Item Value Reference Range Interpretation Comme nts PHOSPHOROUS (test code = PHOS) 2.9 mg/dL 2.4-5.1 N ADD ON TEST? [id number] 04:18:00* Test Item Value Reference Range Interpretation Comme nts MAGNESIUM (test code = MAG) 1.9 mg/dL 1.6-2.6 N ADD ON TEST? YesCBC W/O [id number] 03:57:00* Test Item Value Reference Range Interpretation Comme nts WHITE BLOOD CELL (test code = WBC) 9.0 x10 3/uL 4.8-10.8 N RED BLOOD CELL (test code = RBC) 2.94 x10 6/uL 4.70-6.10 L HEMOGLOBIN (test code = HGB) 9.0 g/dL 14.0-18.0 L HEMATOCRIT (test code = HCT) 28.1 % 42.0-52.0 L MEAN CELL VOLUME (test code = MCV) 95.6 fL 80.0-94.0 H MEAN CELL HGB (test code = MCH) 30.6 pg 27-31 N MEAN CELL HGB CONCENTRATION (test code = MCHC) 32.0 G/DL 33-36.5 L RED CELL DISTRIBUTION WIDTH (test code = RDW) 21.8 % 12.9-16.9 H PLATELET COUNT (test code = PLT) 189 x10 3/uL 150-440 N BASIC METABOLIC [id number] 17:27:00* Test Item Value Reference Range Interpretation Comme nts SODIUM (test code = NA) 143 mmol/L 136-145 N POTASSIUM (test code = K) 4.2 mmol/L 3.5-5.1 N CHLORIDE (test code = CL) 103 mmol/l 98-107 N CARBON DIOXIDE (test code = CO2) 36 mmol/L 20-31 H GLUCOSE (test code = GLU) 97 mg/dL 74-106 N BLOOD UREA NITROGEN (test code = BUN) 27 mg/dL 9-23 H GLOMERULAR FILTRATION RATE (test code = GFR) >=60 max estimate mL/min >60 The Glomerular Filtration Rate is a calculated parameterbased on serum Creatinine, patient age and sex. GFR valuesless than 60 mL/min/1.73 square meters are indicative ofChronic Kidney Disease. Values less than 15 mL/min/1.73square meters indicate Kidney failure. The calculation forGFR is based on the CKD-EPI (2020) calculation. This formulais race indifferent and is the recommended formula for GFRby the National Kidney Foundation for Adults.The GFR will not calculate if the sex is unknown or if thepatient's age is <18 years. CREATININE (test code = CREAT) 1.00 mg/dL 0.70-1.30 N CALCIUM (test code = CA) 8.1 mg/dL 8.7-10.4 L [id number] 17:27:00* Test Item Value Reference Range Interpretation Comme nts PHOSPHOROUS (test code = PHOS) 2.8 mg/dL 2.4-5.1 N [id number] 17:27:00* Test Item Value Reference Range Interpretation Comme nts MAGNESIUM (test code = MAG) 2.0 mg/dL 1.6-2.6 N [id number] 05:57:00* Test Item Value Reference Range Interpretation Comme nts PHOSPHOROUS (test code = PHOS) 2.6 mg/dL 2.4-5.1 N [id number] 05:57:00* Test Item Value Reference Range Interpretation Comme nts MAGNESIUM (test code = MAG) 2.1 mg/dL 1.6-2.6 N BASIC METABOLIC [id number] 05:57:00* Test Item Value Reference Range Interpretation Comme nts SODIUM (test code = NA) 143 mmol/L 136-145 N POTASSIUM (test code = K) 3.8 mmol/L 3.5-5.1 N CHLORIDE (test code = CL) 104 mmol/l 98-107 N CARBON DIOXIDE (test code = CO2) 34 mmol/L 20-31 H GLUCOSE (test code = GLU) 98 mg/dL 74-106 N BLOOD UREA NITROGEN (test code = BUN) 26 mg/dL 9-23 H GLOMERULAR FILTRATION RATE (test code = GFR) >=60 max estimate mL/min >60 The Glomerular Filtration Rate is a calculated parameterbased on serum Creatinine, patient age and sex. GFR valuesless than 60 mL/min/1.73 square meters are indicative ofChronic Kidney Disease. Values less than 15 mL/min/1.73square meters indicate Kidney failure. The calculation forGFR is based on the CKD-EPI (202) calculation. This formulais race indifferent and is the recommended formula for GFRby the National Kidney Foundation for Adults.The GFR will not calculate if the sex is unknown or if thepatient's age is <18 years. CREATININE (test code = CREAT) 1.10 mg/dL 0.70-1.30 N CALCIUM (test code = CA) 8.2 mg/dL 8.7-10.4 L CBC W/AUTO [id number] 05:39:00* Test Item Value Reference Range Interpretation Comme nts WHITE BLOOD CELL (test code = WBC) 10.1 x10 3/uL 4.8-10.8 N RED BLOOD CELL (test code = RBC) 2.93 x10 6/uL 4.70-6.10 L HEMOGLOBIN (test code = HGB) 9.1 g/dL 14.0-18.0 L HEMATOCRIT (test code = HCT) 28.3 % 42.0-52.0 L MEAN CELL VOLUME (test code = MCV) 96.6 fL 80.0-94.0 H MEAN CELL HGB (test code = MCH) 31.1 pg 27-31 H MEAN CELL HGB CONCENTRATION (test code = MCHC) 32.2 G/DL 33-36.5 L RED CELL DISTRIBUTION WIDTH (test code = RDW) 22.3 % 12.9-16.9 H PLATELET COUNT (test code = PLT) 125 x10 3/uL 150-440 L MEAN PLATELET VOLUME (test c ode = MPV) 10.2 fL 8.9-12.4 N NEUTROPHIL % (test code = NT%) 76.8 % 42.2-75.2 H LYMPHOCYTE % (test code = LY%) 8.0 % 20.5-51.1 L MONOCYTE % (test code = MO%) 10.0 % 1.7-9.3 H EOSINOPHIL % (test code = EO%) 4.1 % 0.0-7.0 N BASOPHIL % (test code = BA%) 0.3 % 0-2.5 N NEUTROPHIL # (test code = NT#) 7.74 x10 3/uL 1.80-7.70 H LYMPHOCYTE # (test code = LY#) 0.81 x10 3/uL 1.00-4.80 L MONOCYTE # (test code = MO#) 1.01 x10 3/uL 0.00-0.80 H EOSINOPHIL # (test code = EO#) 0.41 x10 3/uL 0.00-0.45 N BASOPHIL # (test code = BA#) 0.03 x10 3/uL 0.0-0.20 N BASIC METABOLIC [id number] 16:39:00* Test Item Value Reference Range Interpretation Comme nts SODIUM (test code = NA) 144 mmol/L 136-145 N POTASSIUM (test code = K) 4.2 mmol/L 3.5-5.1 N CHLORIDE (test code = CL) 105 mmol/l 98-107 N CARBON DIOXIDE (test code = CO2) 32 mmol/L 20-31 H GLUCOSE (test code = GLU) 96 mg/dL 74-106 N BLOOD UREA NITROGEN (test code = BUN) 28 mg/dL 9-23 H GLOMERULAR FILTRATION RATE (test code = GFR) >=60 max estimate mL/min >60 The Glomerular Filtration Rate is a calculated parameterbased on serum Creatinine, patient age and sex. GFR valuesless than 60 mL/min/1.73 square meters are indicative ofChronic Kidney Disease. Values less than 15 mL/min/1.73square meters indicate Kidney failure. The calculation forGFR is based on the CKD-EPI (2020) calculation. This formulais race indifferent and is the recommended formula for GFRby the National Kidney Foundation for Adults.The GFR will not calculate if the sex is unknown or if thepatient's age is <18 years. CREATININE (test code = CREAT) 1.10 mg/dL 0.70-1.30 N CALCIUM (test code = CA) 7.8 mg/dL 8.7-10.4 L [id number] 16:39:00* Test Item Value Reference Range Interpretation Comme nts PHOSPHOROUS (test code = PHOS) 2.4 mg/dL 2.4-5.1 N [id number] 16:39:00* Test Item Value Reference Range Interpretation Comme nts MAGNESIUM (test code = MAG) 2.0 mg/dL 1.6-2.6 N BASIC METABOLIC [id number] 04:19:00* Test Item Value Reference Range Interpretation Comme nts SODIUM (test code = NA) 144 mmol/L 136-145 N POTASSIUM (test code = K) 4.4 mmol/L 3.5-5.1 N CHLORIDE (test code = CL) 106 mmol/l 98-107 N CARBON DIOXIDE (test code = CO2) 32 mmol/L 20-31 H GLUCOSE (test code = GLU) 108 mg/dL 74-106 H BLOOD UREA NITROGEN (test code = BUN) 26 mg/dL 9-23 H GLOMERULAR FILTRATION RATE (test code = GFR) >=60 max estimate mL/min >60 The Glomerular Filtration Rate is a calculated parameterbased on serum Creatinine, patient age and sex. GFR valuesless than 60 mL/min/1.73 square meters are indicative ofChronic Kidney Disease. Values less than 15 mL/min/1.73square meters indicate Kidney failure. The calculation forGFR is based on the CKD-EPI (2020) calculation. This formulais race indifferent and is the recommended formula for GFRby the National Kidney Foundation for Adults.The GFR will not calculate if the sex is unknown or if thepatient's age is <18 years. CREATININE (test code = CREAT) 1.10 mg/dL 0.70-1.30 N CALCIUM (test code = CA) 8.2 mg/dL 8.7-10.4 L [id number] 04:19:00* Test Item Value Reference Range Interpretation Comme nts PHOSPHOROUS (test code = PHOS) 2.8 mg/dL 2.4-5.1 N [id number] 04:19:00* Test Item Value Reference Range Interpretation Comme nts MAGNESIUM (test code = MAG) 2.2 mg/dL 1.6-2.6 N CBC W/AUTO [id number] 04:04:00* Test Item Value Reference Range Interpretation Comme nts WHITE BLOOD CELL (test code = WBC) 10.5 x10 3/uL 4.8-10.8 N RED BLOOD CELL (test code = RBC) 3.27 x10 6/uL 4.70-6.10 L HEMOGLOBIN (test code = HGB) 10.1 g/dL 14.0-18.0 L HEMATOCRIT (test code = HCT) 31.6 % 42.0-52.0 L MEAN CELL VOLUME (test code = MCV) 96.6 fL 80.0-94.0 H MEAN CELL HGB (test code = MCH) 30.9 pg 27-31 N MEAN CELL HGB CONCENTRATION (test code = MCHC) 32.0 G/DL 33-36.5 L RED CELL DISTRIBUTION WIDTH (test code = RDW) 23.2 % 12.9-16.9 H PLATELET COUNT (test code = PLT) 150 x10 3/uL 150-440 N MEAN PLATELET VOLUME (test c ode = MPV) 10.2 fL 8.9-12.4 N NEUTROPHIL % (test code = NT%) 84.2 % 42.2-75.2 H LYMPHOCYTE % (test code = LY%) 5.1 % 20.5-51.1 L MONOCYTE % (test code = MO%) 9.0 % 1.7-9.3 N EOSINOPHIL % (test code = EO%) 1.0 % 0.0-7.0 N BASOPHIL % (test code = BA%) 0.1 % 0-2.5 N NEUTROPHIL # (test code = NT#) 8.84 x10 3/uL 1.80-7.70 H LYMPHOCYTE # (test code = LY#) 0.54 x10 3/uL 1.00-4.80 L MONOCYTE # (test code = MO#) 0.95 x10 3/uL 0.00-0.80 H EOSINOPHIL # (test code = EO#) 0.10 x10 3/uL 0.00-0.45 N BASOPHIL # (test code = BA#) 0.01 x10 3/uL 0.0-0.20 N BASIC METABOLIC [id number] 14:06:00* Test Item Value Reference Range Interpretation Comme nts SODIUM (test code = NA) 143 mmol/L 136-145 N POTASSIUM (test code = K) 4.2 mmol/L 3.5-5.1 N CHLORIDE (test code = CL) 107 mmol/l 98-107 N CARBON DIOXIDE (test code = CO2) 30 mmol/L 20-31 N GLUCOSE (test code = GLU) 136 mg/dL 74-106 H BLOOD UREA NITROGEN (test code = BUN) 24 mg/dL 9-23 H GLOMERULAR FILTRATION RATE (test code = GFR) >=60 max estimate mL/min >60 The Glomerular Filtration Rate is a calculated parameterbased on serum Creatinine, patient age and sex. GFR valuesless than 60 mL/min/1.73 square meters are indicative ofChronic Kidney Disease. Values less than 15 mL/min/1.73square meters indicate Kidney failure. The calculation forGFR is based on the CKD-EPI (2021) calculation. This formulais race indifferent and is the recommended formula for GFRby the National Kid[employer] Foundation for Adults.The GFR will not calculate if the sex is unknown or if thepatient's age is <18 years. CREATININE (test code = CREAT) 1.10 mg/dL 0.70-1.30 N CALCIUM (test code = CA) 8.1 mg/dL 8.7-10.4 L [id number] 14:06:00* Test Item Value Reference Range Interpretation Comme nts MAGNESIUM (test code = MAG) 2.1 mg/dL 1.6-2.6 N BASIC METABOLIC [id number] 03:57:00* Test Item Value Reference Range Interpretation Comme nts SODIUM (test code = NA) 143 mmol/L 136-145 N POTASSIUM (test code = K) 4.6 mmol/L 3.5-5.1 CHLORIDE (test code = CL) 108 mmol/l 98-107 H CARBON DIOXIDE (test code = CO2) 28 mmol/L 20-31 N GLUCOSE (test code = GLU) 109 mg/dL 74-106 H BLOOD UREA NITROGEN (test code = BUN) 24 mg/dL 9-23 H GLOMERULAR FILTRATION RATE (test code = GFR) >=60 max estimate mL/min >60 The Glomerular Filtration Rate is a calculated parameterbased on serum Creatinine, patient age and sex. GFR valuesless than 60 mL/min/1.73 square meters are indicative ofChronic Kidney Disease. Values less than 15 mL/min/1.73square meters indicate Kidney failure. The calculation forGFR is based on the CKD-EPI (2021) calculation. This formulais race indifferent and is the recommended formula for GFRby the National Kidney Foundation for Adults.The GFR will not calculate if the sex is unknown or if thepatient's age is <18 years. CREATININE (test code = CREAT) 1.00 mg/dL 0.70-1.30 N CALCIUM (test code = CA) 7.8 mg/dL 8.7-10.4 L [id number] 03:57:00* Test Item Value Reference Range Interpretation Comme nts MAGNESIUM (test code = MAG) 1.9 mg/dL 1.6-2.6 N CBC W/AUTO [id number] 03:33:00* Test Item Value Reference Range Interpretation Comme nts WHITE BLOOD CELL (test code = WBC) 9.5 x10 3/uL 4.8-10.8 N RED BLOOD CELL (test code = RBC) 3.09 x10 6/uL 4.70-6.10 L HEMOGLOBIN (test code = HGB) 9.3 g/dL 14.0-18.0 L HEMATOCRIT (test code = HCT) 28.3 % 42.0-52.0 L MEAN CELL VOLUME (test code = MCV) 91.6 fL 80.0-94.0 N MEAN CELL HGB (test code = MCH) 30.1 pg 27-31 N MEAN CELL HGB CONCENTRATION (test code = MCHC) 32.9 G/DL 33-36.5 L RED CELL DISTRIBUTION WIDTH (test code = RDW) 24.1 % 12.9-16.9 H PLATELET COUNT (test code = PLT) 126 x10 3/uL 150-440 L MEAN PLATELET VOLUME (test c ode = MPV) 10.3 fL 8.9-12.4 N NEUTROPHIL % (test code = NT%) 78.7 % 42.2-75.2 H LYMPHOCYTE % (test code = LY%) 7.8 % 20.5-51.1 L MONOCYTE % (test code = MO%) 12.4 % 1.7-9.3 H EOSINOPHIL % (test code = EO%) 0.5 % 0.0-7.0 N BASOPHIL % (test code = BA%) 0.2 % 0-2.5 N NEUTROPHIL # (test code = NT#) 7.48 x10 3/uL 1.80-7.70 N LYMPHOCYTE # (test code = LY#) 0.74 x10 3/uL 1.00-4.80 L MONOCYTE # (test code = MO#) 1.18 x10 3/uL 0.00-0.80 H EOSINOPHIL # (test code = EO#) 0.05 x10 3/uL 0.00-0.45 N BASOPHIL # (test code = BA#) 0.02 x10 3/uL 0.0-0.20 N BASIC METABOLIC [id number] 19:42:00* Test Item Value Reference Range Interpretation Comme nts SODIUM (test code = NA) 149 mmol/L 136-145 H POTASSIUM (test code = K) 3.2 mmol/L 3.5-5.1 L CHLORIDE (test code = CL) 118 mmol/l 98-107 H CARBON DIOXIDE (test code = CO2) 22 mmol/L 20-31 N GLUCOSE (test code = GLU) 92 mg/dL 74-106 N BLOOD UREA NITROGEN (test code = BUN) 20 mg/dL 9-23 N GLOMERULAR FILTRATION RATE (test code = GFR) >=60 max estimate mL/min >60 The Glomerular Filtration Rate is a calculated parameterbased on serum Creatinine, patient age and sex. GFR valuesless than 60 mL/min/1.73 square meters are indicative ofChronic Kidney Disease. Values less than 15 mL/min/1.73square meters indicate Kidney failure. The calculation forGFR is based on the CKD-EPI (2020) calculation. This formulais race indifferent and is the recommended formula for GFRby the National Kidney Foundation for Adults.The GFR will not calculate if the sex is unknown or if thepatient's age is <18 years. CREATININE (test code = CREAT) 0.80 mg/dL 0.70-1.30 N CALCIUM (test code = CA) 6.2 mg/dL 8.7-10.4 L [id number] 19:42:00* Test Item Value Reference Range Interpretation Comme nts MAGNESIUM (test code = MAG) 1.6 mg/dL 1.6-2.6 N BASIC METABOLIC [id number] 14:11:00* Test Item Value Reference Range Interpretation Comme nts SODIUM (test code = NA) 145 mmol/L 136-145 N POTASSIUM (test code = K) 3.9 mmol/L 3.5-5.1 N CHLORIDE (test code = CL) 109 mmol/l 98-107 H CARBON DIOXIDE (test code = CO2) 29 mmol/L 20-31 N GLUCOSE (test code = GLU) 117 mg/dL 74-106 H BLOOD UREA NITROGEN (test code = BUN) 24 mg/dL 9-23 H GLOMERULAR FILTRATION RATE (test code = GFR) >=60 max estimate mL/min >60 The Glomerular Filtration Rate is a calculated parameterbased on serum Creatinine, patient age and sex. GFR valuesless than 60 mL/min/1.73 square meters are indicative ofChronic Kidney Disease. Values less than 15 mL/min/1.73square meters indicate Kidney failure. The calculation forGFR is based on the CKD-EPI (2020) calculation. This formulais race indifferent and is the recommended formula for GFRby the National Kidney Foundation for Adults.The GFR will not calculate if the sex is unknown or if thepatient's age is <18 years. CREATININE (test code = CREAT) 1.10 mg/dL 0.70-1.30 N CALCIUM (test code = CA) 8.6 mg/dL 8.7-10.4 L [id number] 14:11:00* Test Item Value Reference Range Interpretation Comme nts PHOSPHOROUS (test code = PHOS) 4.2 mg/dL 2.4-5.1 N [id number] 14:11:00* Test Item Value Reference Range Interpretation Comme nts MAGNESIUM (test code = MAG) 2.1 mg/dL 1.6-2.6 N [id number] 09:06:00* Test Item Value Reference Range Interpretation Comme nts PHOSPHOROUS (test code = PHOS) 4.3 mg/dL 2.4-5.1 N Comment: PLEASE USE SPECIMEN IN LABBASIC METABOLIC [id number] 03:47:00* Test Item Value Reference Range Interpretation Comme nts SODIUM (test code = NA) 147 mmol/L 136-145 H POTASSIUM (test code = K) 4.2 mmol/L 3.5-5.1 N CHLORIDE (test code = CL) 110 mmol/l 98-107 H CARBON DIOXIDE (test code = CO2) 28 mmol/L 20-31 N GLUCOSE (test code = GLU) 136 mg/dL 74-106 H BLOOD UREA NITROGEN (test code = BUN) 24 mg/dL 9-23 H GLOMERULAR FILTRATION RATE (test code = GFR) 58 mL/min >60 L The Glomerular Filtration Rate is a calculated parameterbased on serum Creatinine, patient age and sex. GFR valuesless than 60 mL/min/1.73 square meters are indicative ofChronic Kidney Disease. Values less than 15 mL/min/1.73square meters indicate Kidney failure. The calculation forGFR is based on the CKD-EPI (2020) calculation. This formulais race indifferent and is the recommended formula for GFRby the National Kidney Foundation for Adults.The GFR will not calculate if the sex is unknown or if thepatient's age is <18 years. CREATININE (test code = CREAT) 1.20 mg/dL 0.70-1.30 N CALCIUM (test code = CA) 9.1 mg/dL 8.7-10.4 N LIVER FUNCTION [id number] 03:47:00* Test Item Value Reference Range Interpretation Comme nts TOTAL PROTEIN (test code = PROT) 5.7 g/dL 5.7-8.2 N ALBUMIN (test code = ALB) 3.5 g/dL 3.2-4.8 N BILIRUBIN TOTAL (test code = BILT) 4.8 mg/dL 0.3-1.2 H BILIRUBIN DIRECT (test code = BILD) 0.5 mg/dL <0.3 H SGOT/AST (test code = AST) 45 U/L <34 H SGPT/ALT (test code = ALT) 19 U/L 10-49 N ALKALINE PHOSPHATASE (test c ode = ALKP) 49.0 U/L 46-116 N [id number] 03:47:00* Test Item Value Reference Range Interpretation Comme nts MAGNESIUM (test code = MAG) 2.0 mg/dL 1.6-2.6 N PROTHROMBIN [id number] 03:44:00* Test Item Value Reference Range Interpretation Comme nts PROTHROMBIN TIME PATIENT (test code = PTP) 13.9 SECONDS 10.3-12.9 H INTERNATIONAL NORMAL RATIO (test code = INR) 1.25 0.9-1.11 H INR goals are individualized based on patient specificfactors. The following are only general guidelines: Indications: INR Goal:1. Treatment of venous thromboembolism and 2.0 - 3.0 systemic anticoagulation in a variety of conditions, including atrial fibrillation and mechanical heart valves 2. Mechanical mitral and tricuspid valves, 2.5 - 3.5 systemic anticoagulation for high-risk conditions THROMBOPLASTIN TIME [id number] 03:44:00* Test Item Value Reference Range Interpretation Comme nts THROMBOPLASTIN TIME PARTIAL (test code = PTT) 26.2 secs 23.8-34.8 N INTERPRETATIVE D CELENA: Therapeutic range: Unfractionated Heparin: 60-90 seconds Argatroban: 60-90 seconds [id number] 03:44:00* Test Item Value Reference Range Interpretation Comme nts FIBRINOGEN (test code = FIB) 396 mg/dL 200-400 N LACTIC [id number] 03:42:00* Test Item Value Reference Range Interpretation Comme nts LACTIC ACID (test code = LACT) 2.70 mmol/L 0.5-2.0 HH Critical Value r eported toFirst Name:JESSICA Guerrero Name:KIRIT READ BACK AND VERIFIEDby [id number], on 08/14/23, @ 0342. CBC W/AUTO [id number] 03:31:00* Test Item Value Reference Range Interpretation Comme nts WHITE BLOOD CELL (test code = WBC) 8.0 x10 3/uL 4.8-10.8 N RED BLOOD CELL (test code = RBC) 3.36 x10 6/uL 4.70-6.10 L HEMOGLOBIN (test code = HGB) 10.1 g/dL 14.0-18.0 L HEMATOCRIT (test code = HCT) 29.9 % 42.0-52.0 L MEAN CELL VOLUME (test code = MCV) 89.0 fL 80.0-94.0 MEAN CELL HGB (test code = MCH) 30.1 pg 27-31 N MEAN CELL HGB CONCENTRATION (test code = MCHC) 33.8 G/DL 33-36.5 N RED CELL DISTRIBUTION WIDTH (test code = RDW) 23.9 % 12.9-16.9 H PLATELET COUNT (test code = PLT) 144 x10 3/uL 150-440 L MEAN PLATELET VOLUME (test c ode = MPV) 10.1 fL 8.9-12.4 N NEUTROPHIL % (test code = NT%) 84.2 % 42.2-75.2 H LYMPHOCYTE % (test code = LY%) 3.4 % 20.5-51.1 L MONOCYTE % (test code = MO%) 12.0 % 1.7-9.3 H EOSINOPHIL % (test code = EO%) 0.0 % 0.0-7.0 N BASOPHIL % (test code = BA%) 0.1 % 0-2.5 N NEUTROPHIL # (test code = NT#) 6.71 x10 3/uL 1.80-7.70 N LYMPHOCYTE # (test code = LY#) 0.27 x10 3/uL 1.00-4.80 L MONOCYTE # (test code = MO#) 0.96 x10 3/uL 0.00-0.80 H EOSINOPHIL # (test code = EO#) 0.00 x10 3/uL 0.00-0.45 N BASOPHIL # (test code = BA#) 0.01 x10 3/uL 0.0-0.20 N BLOOD GAS [id number] 01:47:00* Test Item Value Reference Range Interpretation Comme nts ARTERIAL BLOOD GAS PH (test code = PHA) 7.48 7.35-7.45 H ARTERIAL BLOOD GAS PCO2 (test code = PCO2A) 33.4 mmHg 35.0-45.0 L ARTERIAL BLOOD GAS PO2 (test code = PO2A) 74.3 mmHg 80.0-95.0 L BICARBONATE TOTAL HCO3 (test code = HCO3) 24.0 mmol/L 22.0-24.0 N BASE EXCESS (test code = DANAE) 0.8 mmol/L See_Comment N [Automated message] The system which generated this result transmitted reference range: (+/-)2.0. The reference range was not used to interpret this result as normal/abnormal. ABG O2 SATURATION (test code = SATA) 95.2 % 95.0-100.0 N ARTERIAL FIO2 (test code = FIO2A) 32.0 % ABG VENT MODE (test code = MODEA) NASAL CANNULA ALLENS TEST (test code = ALLENS) SODIUM (POC) (test code = NA/ABG) 145 mmol/L 135-147 N POTASSIUM (POC) (test code = K/ABG) 4.42 mmol/L 3.6-5.2 N CHLORIDE (ARTERIAL) (test code = CL/ABG) 107 mmol/L 98-108 N GLUCOSE (test code = GLU/ABG) 124 mg/dL 70-104 H IONIZED CALCIUM (test code = CAIABG) 1.21 mmol/L 1.12-1.32 N POC LACTIC ACID (test code = POCLAC) 2.81 mmol/L 0.5-2.2 H TOTAL HGB (test code = THB) 10.9 g/dL 13.0-17.0 L OXYHEMOGLOBIN (test code = OOHGBT) 94.1 % 92.0-98.0 N CARBOXYHEMOGLOBIN (test code = HOHGBT) 0.9 % 0-5.0 N METHEMOGLOBIN (test code = METHGB) <0.8 % 0-1.5 N HHb (test code = HHB) 4.7 % TCO2 ARTERIAL (test code = TCO2A) 25.1 MMOL/L 24-30 N BLOOD GAS [id number] 23:41:00* Test Item Value Reference Range Interpretation Comme nts ARTERIAL BLOOD GAS PH (test code = PHA) 7.47 7.35-7.45 H ARTERIAL BLOOD GAS PCO2 (test code = PCO2A) 35.8 mmHg 35.0-45.0 N ARTERIAL BLOOD GAS PO2 (test code = PO2A) 120.7 mmHg 80.0-95.0 H BICARBONATE TOTAL HCO3 (test code = HCO3) 25.4 mmol/L 22.0-24.0 H BASE EXCESS (test code = DANAE) 1.7 mmol/L See_Comment N [Automated message] The system which generated this result transmitted reference range: (+/-)2.0. The reference range was not used to interpret this result as normal/abnormal. ABG O2 SATURATION (test code = SATA) 98.1 % 95.0-100.0 N ARTERIAL FIO2 (test code = FIO2A) 40.0 % ABG VENT MODE (test code = MODEA) Ventilator ALLENS TEST (test code = ALLENS) NOT APPLICABLE SODIUM (POC) (test code = NA/ABG) 146 mmol/L 135-147 N POTASSIUM (POC) (test code = K/ABG) 4.25 mmol/L 3.6-5.2 N CHLORIDE (ARTERIAL) (test code = CL/ABG) 109 mmol/L 98-108 H GLUCOSE (test code = GLU/ABG) 121 mg/dL 70-104 H IONIZED CALCIUM (test code = CAIABG) 1.22 mmol/L 1.12-1.32 N POC LACTIC ACID (test code = POCLAC) 3.12 mmol/L 0.5-2.2 H TOTAL HGB (test code = THB) 9.6 g/dL 13.0-17.0 L OXYHEMOGLOBIN (test code = OOHGBT) 97.4 % 92.0-98.0 N CARBOXYHEMOGLOBIN (test code = HOHGBT) 0.4 % 0-5.0 N METHEMOGLOBIN (test code = METHGB) <0.8 % 0-1.5 N HHb (test code = HHB) 1.9 % TCO2 ARTERIAL (test code = TCO2A) 26.5 MMOL/L 24-30 N LACTIC [id number] 21:35:00* Test Item Value Reference Range Interpretation Comme nts LACTIC ACID (test code = LACT) 5.00 mmol/L 0.5-2.0 HH Critical Value r eported toFirst Name:JESSICA Last Name:JHONATANMYLAYANI READ BACK AND VERIFIEDby [id number], on 08/13/23, @ 9651. BASIC METABOLIC [id number] 21:35:00* Test Item Value Reference Range Interpretation Comme nts SODIUM (test code = NA) 148 mmol/L 136-145 H POTASSIUM (test code = K) 4.2 mmol/L 3.5-5.1 N CHLORIDE (test code = CL) 110 mmol/l 98-107 H CARBON DIOXIDE (test code = CO2) 26 mmol/L 20-31 N GLUCOSE (test code = GLU) 124 mg/dL 74-106 H BLOOD UREA NITROGEN (test code = BUN) 22 mg/dL 9-23 N GLOMERULAR FILTRATION RATE (test code = GFR) >=60 max estimate mL/min >60 The Glomerular Filtration Rate is a calculated parameterbased on serum Creatinine, patient age and sex. GFR valuesless than 60 mL/min/1.73 square meters are indicative ofChronic Kidney Disease. Values less than 15 mL/min/1.73square meters indicate Kidney failure. The calculation forGFR is based on the CKD-EPI (2020) calculation. This formulais race indifferent and is the recommended formula for GFRby the National Kidney Foundation for Adults.The GFR will not calculate if the sex is unknown or if thepatient's age is <18 years. CREATININE (test code = CREAT) 1.10 mg/dL 0.70-1.30 N CALCIUM (test code = CA) 9.7 mg/dL 8.7-10.4 N [id number] 21:35:00* Test Item Value Reference Range Interpretation Comme [facility] PHOSPHOROUS (test code = PHOS) 3.8 mg/dL 2.4-5.1 N [id number] 21:35:00* Test Item Value Reference Range Interpretation Comme [facility] MAGNESIUM (test code = MAG) 2.1 mg/dL 1.6-2.6 N PROTHROMBIN [id number] 21:17:00* Test Item Value Reference Range Interpretation Comme [facility] PROTHROMBIN TIME PATIENT (test code = PTP) 12.7 SECONDS 10.3-12.9 N INTERNATIONAL NORMAL RATIO (test code = INR) 1.14 0.9-1.11 H INR goals are individualized based on patient specificfactors. The following are only general guidelines: Indications: INR Goal:1. Treatment of venous thromboembolism and 2.0 - 3.0 systemic anticoagulation in a variety of conditions, including atrial fibrillation and mechanical heart valves 2. Mechanical mitral and tricuspid valves, 2.5 - 3.5 systemic anticoagulation for high-risk conditions THROMBOPLASTIN TIME [id number] 21:17:00* Test Item Value Reference Range Interpretation Comme [facility] THROMBOPLASTIN TIME PARTIAL (test code = PTT) 28.2 secs 23.8-34.8 N INTERPRETATIVE D CELENA: Therapeutic range: Unfractionated Heparin: 60-90 seconds Argatroban: 60-90 seconds [id number] 21:17:00* Test Item Value Reference Range Interpretation Comme [facility] FIBRINOGEN (test code = FIB) 317 mg/dL 200-400 N CBC W/AUTO [id number] 21:11:00* Test Item Value Reference Range Interpretation Comme nts WHITE BLOOD CELL (test code = WBC) 7.6 x10 3/uL 4.8-10.8 N RED BLOOD CELL (test code = RBC) 2.62 x10 6/uL 4.70-6.10 L HEMOGLOBIN (test code = HGB) 8.4 g/dL 14.0-18.0 L HEMATOCRIT (test code = HCT) 25.2 % 42.0-52.0 L MEAN CELL VOLUME (test code = MCV) 96.2 fL 80.0-94.0 H MEAN CELL HGB (test code = MCH) 32.1 pg 27-31 H MEAN CELL HGB CONCENTRATION (test code = MCHC) 33.3 G/DL 33-36.5 N RED CELL DISTRIBUTION WIDTH (test code = RDW) 18.6 % 12.9-16.9 H PLATELET COUNT (test code = PLT) 144 x10 3/uL 150-440 L MEAN PLATELET VOLUME (test c ode = MPV) 10.0 fL 8.9-12.4 N NEUTROPHIL % (test code = NT%) 84.6 % 42.2-75.2 H LYMPHOCYTE % (test code = LY%) 2.4 % 20.5-51.1 L MONOCYTE % (test code = MO%) 12.6 % 1.7-9.3 H EOSINOPHIL % (test code = EO%) 0.0 % 0.0-7.0 N BASOPHIL % (test code = BA%) 0.1 % 0-2.5 N NEUTROPHIL # (test code = NT#) 6.43 x10 3/uL 1.80-7.70 N LYMPHOCYTE # (test code = LY#) 0.18 x10 3/uL 1.00-4.80 L MONOCYTE # (test code = MO#) 0.96 x10 3/uL 0.00-0.80 H EOSINOPHIL # (test code = EO#) 0.00 x10 3/uL 0.00-0.45 N BASOPHIL # (test code = BA#) 0.01 x10 3/uL 0.0-0.20 N BLOOD GAS [id number] 21:08:00* Test Item Value Reference Range Interpretation Comme nts ARTERIAL BLOOD GAS PH (test code = PHA) 7.44 7.35-7.45 N ARTERIAL BLOOD GAS PCO2 (test code = PCO2A) 35.7 mmHg 35.0-45.0 N ARTERIAL BLOOD GAS PO2 (test code = PO2A) 198.8 mmHg 80.0-95.0 H BICARBONATE TOTAL HCO3 (test code = HCO3) 23.8 mmol/L 22.0-24.0 N BASE EXCESS (test code = DANAE) -0.2 mmol/L See_Comment N [Automated message] The system which generated this result transmitted reference range: (+/-)2.0. The reference range was not used to interpret this result as normal/abnormal. ABG O2 SATURATION (test code = SATA) 99.0 % 95.0-100.0 N ARTERIAL FIO2 (test code = FIO2A) 60.0 % ABG VENT MODE (test code = MODEA) Ventilator ALLENS TEST (test code = ALLENS) NOT APPLICABLE SODIUM (POC) (test code = NA/ABG) 146 mmol/L 135-147 N POTASSIUM (POC) (test code = K/ABG) 4.11 mmol/L 3.6-5.2 N CHLORIDE (ARTERIAL) (test code = CL/ABG) 108 mmol/L 98-108 N GLUCOSE (test code = GLU/ABG) 114 mg/dL 70-104 H IONIZED CALCIUM (test code = CAIABG) 1.22 mmol/L 1.12-1.32 N POC LACTIC ACID (test code = POCLAC) 4.81 mmol/L 0.5-2.2 H TOTAL HGB (test code = THB) 9.0 g/dL 13.0-17.0 L OXYHEMOGLOBIN (test code = OOHGBT) 97.9 % 92.0-98.0 N CARBOXYHEMOGLOBIN (test code = HOHGBT) 0.8 % 0-5.0 N METHEMOGLOBIN (test code = METHGB) <0.8 % 0-1.5 N HHb (test code = HHB) 1.0 % TCO2 ARTERIAL (test code = TCO2A) 24.9 MMOL/L 24-30 N BLOOD GAS [id number] 17:52:00* Test Item Value Reference Range Interpretation Comme nts ARTERIAL BLOOD GAS PH (test code = PHA) 7.35 7.35-7.45 N ARTERIAL BLOOD GAS PCO2 (test code = PCO2A) 37.0 mmHg 35.0-45.0 N ARTERIAL BLOOD GAS PO2 (test code = PO2A) 177.6 mmHg 80.0-95.0 H BICARBONATE TOTAL HCO3 (test code = HCO3) 19.7 mmol/L 22.0-24.0 L BASE EXCESS (test code = DANAE) -5.4 mmol/L See_Comment L [Automated message] The system which generated this result transmitted reference range: (+/-)2.0. The reference range was not used to interpret this result as normal/abnormal. ABG O2 SATURATION (test code = SATA) 98.9 % 95.0-100.0 N ARTERIAL FIO2 (test code = FIO2A) 60.0 % ABG VENT MODE (test code = MODEA) VENT ALLENS TEST (test code = ALLENS) NOT APPLICABLE SODIUM (POC) (test code = NA/ABG) 144 mmol/L 135-147 N POTASSIUM (POC) (test code = K/ABG) 3.97 mmol/L 3.6-5.2 N CHLORIDE (ARTERIAL) (test code = CL/ABG) 108 mmol/L 98-108 N GLUCOSE (test code = GLU/ABG) 151 mg/dL 70-104 H IONIZED CALCIUM (test code = CAIABG) 1.10 mmol/L 1.12-1.32 L POC LACTIC ACID (test code = POCLAC) 6.03 mmol/L 0.5-2.2 H TOTAL HGB (test code = THB) 11.0 g/dL 13.0-17.0 L OXYHEMOGLOBIN (test code = OOHGBT) 98.0 % 92.0-98.0 N CARBOXYHEMOGLOBIN (test code = HOHGBT) 0.6 % 0-5.0 N METHEMOGLOBIN (test code = METHGB) <0.8 % 0-1.5 N HHb (test code = HHB) 1.1 % TCO2 ARTERIAL (test code = TCO2A) 20.9 MMOL/L 24-30 L BLOOD GAS [id number] 17:41:00* Test Item Value Reference Range Interpretation Comme nts ARTERIAL BLOOD GAS PH (test code = PHA) 7.35 7.35-7.45 N ARTERIAL BLOOD GAS PCO2 (test code = PCO2A) 36.6 mmHg 35.0-45.0 N ARTERIAL BLOOD GAS PO2 (test code = PO2A) 461.4 mmHg 80.0-95.0 H BICARBONATE TOTAL HCO3 (test code = HCO3) 19.5 mmol/L 22.0-24.0 L BASE EXCESS (test code = DANAE) -5.6 mmol/L See_Comment L [Automated message] The system which generated this result transmitted reference range: (+/-)2.0. The reference range was not used to interpret this result as normal/abnormal. ABG O2 SATURATION (test code = SATA) 99.4 % 95.0-100.0 N ARTERIAL FIO2 (test code = FIO2A) 100.0 % ABG VENT MODE (test code = MODEA) Ventilator ALLENS TEST (test code = ALLENS) NOT APPLICABLE SODIUM (POC) (test code = NA/ABG) 144 mmol/L 135-147 N POTASSIUM (POC) (test code = K/ABG) 3.98 mmol/L 3.6-5.2 N CHLORIDE (ARTERIAL) (test code = CL/ABG) 110 mmol/L 98-108 H GLUCOSE (test code = GLU/ABG) 163 mg/dL 70-104 H IONIZED CALCIUM (test code = CAIABG) 1.23 mmol/L 1.12-1.32 N POC LACTIC ACID (test code = POCLAC) 4.56 mmol/L 0.5-2.2 H TOTAL HGB (test code = THB) 9.7 g/dL 13.0-17.0 L OXYHEMOGLOBIN (test code = OOHGBT) 99.3 % 92.0-98.0 H CARBOXYHEMOGLOBIN (test code = HOHGBT) 0.0 % 0-5.0 N METHEMOGLOBIN (test code = METHGB) <0.8 % 0-1.5 N HHb (test code = HHB) 0.6 % TCO2 ARTERIAL (test code = TCO2A) 20.6 MMOL/L 24-30 L PROTHROMBIN [id number] 17:12:00* Test Item Value Reference Range Interpretation Comme nts PROTHROMBIN TIME PATIENT (test code = PTP) 12.6 SECONDS 10.3-12.9 N INTERNATIONAL NORMAL RATIO (test code = INR) 1.13 0.9-1.11 H INR goals are individualized based on patient specificfactors. The following are only general guidelines: Indications: INR Goal:1. Treatment of venous thromboembolism and 2.0 - 3.0 systemic anticoagulation in a variety of conditions, including atrial fibrillation and mechanical heart valves 2. Mechanical mitral and tricuspid valves, 2.5 - 3.5 systemic anticoagulation for high-risk conditions THROMBOPLASTIN TIME [id number] 17:12:00* Test Item Value Reference Range Interpretation Comme nts THROMBOPLASTIN TIME PARTIAL (test code = PTT) 26.6 secs 23.8-34.8 N INTERPRETATIVE D CELENA: Therapeutic range: Unfractionated Heparin: 60-90 seconds Argatroban: 60-90 seconds LACTIC [id number] 16:32:00* Test Item Value Reference Range Interpretation Comme nts LACTIC ACID (test code = LACT) 4.80 mmol/L 0.5-2.0 HH Critical Value r eported toFirst Name:SREEDHAR Last Name:HOLLEY READ BACK AND VERIFIEDby [id number], on 08/13/23, @ 9728. BASIC METABOLIC [id number] 16:31:00* Test Item Value Reference Range Interpretation Comme nts SODIUM (test code = NA) 148 mmol/L 136-145 H POTASSIUM (test code = K) 4.1 mmol/L 3.5-5.1 N CHLORIDE (test code = CL) 113 mmol/l 98-107 H CARBON DIOXIDE (test code = CO2) 22 mmol/L 20-31 N GLUCOSE (test code = GLU) 175 mg/dL 74-106 H BLOOD UREA NITROGEN (test code = BUN) 19 mg/dL 9-23 N GLOMERULAR FILTRATION RATE (test code = GFR) >=60 max estimate mL/min >60 The Glomerular Filtration Rate is a calculated parameterbased on serum Creatinine, patient age and sex. GFR valuesless than 60 mL/min/1.73 square meters are indicative ofChronic Kidney Disease. Values less than 15 mL/min/1.73square meters indicate Kidney failure. The calculation forGFR is based on the CKD-EPI (2020) calculation. This formulais race indifferent and is the recommended formula for GFRby the National Kidney Foundation for Adults.The GFR will not calculate if the sex is unknown or if thepatient's age is <18 years. CREATININE (test code = CREAT) 0.90 mg/dL 0.70-1.30 N CALCIUM (test code = CA) 9.2 mg/dL 8.7-10.4 N [id number] 16:31:00* Test Item Value Reference Range Interpretation Comme nts PHOSPHOROUS (test code = PHOS) 4.7 mg/dL 2.4-5.1 [id number] 16:31:00* Test Item Value Reference Range Interpretation Comme nts MAGNESIUM (test code = MAG) 2.2 mg/dL 1.6-2.6 N CBC W/AUTO [id number] 16:29:00* Test Item Value Reference Range Interpretation Comme nts WHITE BLOOD CELL (test code = WBC) 14.5 x10 3/uL 4.8-10.8 H RED BLOOD CELL (test code = RBC) 2.67 x10 6/uL 4.70-6.10 L HEMOGLOBIN (test code = HGB) 9.0 g/dL 14.0-18.0 L HEMATOCRIT (test code = HCT) 26.5 % 42.0-52.0 L MEAN CELL VOLUME (test code = MCV) 99.3 fL 80.0-94.0 H MEAN CELL HGB (test code = MCH) 33.7 pg 27-31 H MEAN CELL HGB CONCENTRATION (test code = MCHC) 34.0 G/DL 33-36.5 N RED CELL DISTRIBUTION WIDTH (test code = RDW) 17.5 % 12.9-16.9 H PLATELET COUNT (test code = PLT) 215 x10 3/uL 150-440 N MEAN PLATELET VOLUME (test code = MPV) 10.0 fL 8.9-12.4 N NEUTROPHIL % (test code = NT%) 81.9 % 42.2-75.2 H LYMPHOCYTE % (test code = LY%) 7.4 % 20.5-51.1 L MONOCYTE % (test code = MO%) 9.8 % 1.7-9.3 H EOSINOPHIL % (test code = EO%) 0.2 % 0.0-7.0 N BASOPHIL % (test code = BA%) 0.1 % 0-2.5 N NEUTROPHIL # (test code = NT#) 11.87 x10 3/uL 1.80-7.70 H LYMPHOCYTE # (test code = LY#) 1.08 x10 3/uL 1.00-4.80 N MONOCYTE # (test code = MO#) 1.42 x10 3/uL 0.00-0.80 H EOSINOPHIL # (test code = EO#) 0.03 x10 3/uL 0.00-0.45 N BASOPHIL # (test code = BA#) 0.02 x10 3/uL 0.0-0.20 N PROTHROMBIN [id number] 15:28:00* Test Item Value Reference Range Interpretation Comme [facility] PROTHROMBIN TIME PATIENT (test code = PTP) 20.1 SECONDS 10.3-12.9 H INTERNATIONAL NORMAL RATIO (test code = INR) 1.83 0.9-1.11 H INR goals are individualized based on patient specificfactors. The following are only general guidelines: Indications: INR Goal:1. Treatment of venous thromboembolism and 2.0 - 3.0 systemic anticoagulation in a variety of conditions, including atrial fibrillation and mechanical heart valves 2. Mechanical mitral and tricuspid valves, 2.5 - 3.5 systemic anticoagulation for high-risk conditions THROMBOPLASTIN TIME [id number] 15:28:00* Test Item Value Reference Range [facility]ation [facility] (test code = PTT) 32.5 secs 23.8-34.8 INTERPRETATIVE D CELENA: Therapeutic range: Unfractionated Heparin: 60-90 seconds Argatroban: 60-90 seconds [id number] 15:28:00* Test Item Value Reference Range Interpretation [facility] (test code = FIB) 159 mg/dL 200-400 L CBC W/AUTO [id number] 15:12:00* Test Item Value Reference Range Interpretation Comme [facility] WHITE BLOOD CELL (test code = WBC) 16.3 x10 3/uL 4.8-10.8 H RED BLOOD CELL (test code = RBC) 3.42 x10 6/uL 4.70-6.10 L HEMOGLOBIN (test code = HGB) 11.6 g/dL 14.0-18.0 L HEMATOCRIT (test code = HCT) 34.4 % 42.0-52.0 L MEAN CELL VOLUME (test code = MCV) 100.6 fL 80.0-94.0 H MEAN CELL HGB (test code = MCH) 33.9 pg 27-31 H MEAN CELL HGB CONCENTRATION (test code = MCHC) 33.7 G/DL 33-36.5 N RED CELL DISTRIBUTION WIDTH (test code = RDW) 17.1 % 12.9-16.9 H PLATELET COUNT (test code = PLT) 112 x10 3/uL 150-440 L MEAN PLATELET VOLUME (test code = MPV) 9.4 fL 8.9-12.4 N NEUTROPHIL % (test code = NT%) 78.2 % 42.2-75.2 H LYMPHOCYTE % (test code = LY%) 12.6 % 20.5-51.1 L MONOCYTE % (test code = MO%) 7.3 % 1.7-9.3 N EOSINOPHIL % (test code = EO%) 0.3 % 0.0-7.0 N BASOPHIL % (test code = BA%) 0.2 % 0-2.5 N NEUTROPHIL # (test code = NT#) 12.76 x10 3/uL 1.80-7.70 H LYMPHOCYTE # (test code = LY#) 2.05 x10 3/uL 1.00-4.80 N MONOCYTE # (test code = MO#) 1.19 x10 3/uL 0.00-0.80 H EOSINOPHIL # (test code = EO#) 0.05 x10 3/uL 0.00-0.45 N BASOPHIL # (test code = BA#) 0.04 x10 3/uL 0.0-0.20 N COAGULATION TIME [id number] 15:10:00* Test Item Value Reference Range Interpretation Comme nts COAGULATION TIME ACTIVATED ( test code = ACT) 136 SECONDS 74-137 N COAGULATION TIME [id number] 13:39:00* Test Item Value Reference Range Interpretation Comme nts COAGULATION TIME ACTIVATED ( test code = ACT) 131 SECONDS 74-137 N COAGULATION TIME [id number] 12:39:00* Test Item Value Reference Range Interpretation Comme nts COAGULATION TIME ACTIVATED ( test code = ACT) 428 SECONDS 74-137 H COAGULATION TIME [id number] 12:10:00* Test Item Value Reference Range Interpretation Comme nts COAGULATION TIME ACTIVATED ( test code = ACT) 515 SECONDS 74-137 H COAGULATION TIME [id number] 11:37:00* Test Item Value Reference Range Interpretation Comme nts COAGULATION TIME ACTIVATED ( test code = ACT) 466 SECONDS 74-137 H COAGULATION TIME [id number] 11:02:00* Test Item Value Reference Range Interpretation Comme nts COAGULATION TIME ACTIVATED ( test code = ACT) 450 SECONDS 74-137 H PROTHROMBIN [id number] 06:32:00* Test Item Value Reference Range Interpretation Comme nts PROTHROMBIN TIME PATIENT (test code = PTP) 14.0 SECONDS 10.3-12.9 H INTERNATIONAL NORMAL RATIO (test code = INR) 1.26 0.9-1.11 H INR goals are individualized based on patient specificfactors. The following are only general guidelines: Indications: INR Goal:1. Treatment of venous thromboembolism and 2.0 - 3.0 systemic anticoagulation in a variety of conditions, including atrial fibrillation and mechanical heart valves 2. Mechanical mitral and tricuspid valves, 2.5 - 3.5 systemic anticoagulation for high-risk conditions THROMBOPLASTIN TIME [id number] 06:32:00* Test Item Value Reference Range Interpretation Comme nts THROMBOPLASTIN TIME PARTIAL (test code = PTT) 25.6 secs 23.8-34.8 N INTERPRETATIVE D CELENA: Therapeutic range: Unfractionated Heparin: 60-90 seconds Argatroban: 60-90 seconds Novel Coronavirus [id number] 20:47:00* Test Item Value Reference Range Interpretation Comme nts Novel Coronavirus 2019 Inhouse (test code = [id number]) Negative Negative Positive resul ts are indicative of the presence [id number] RNA, clinical correlation with patient historyand other diagnostic information is necessary to determinepatient infection status. Positive results do not rule outbacterial infection or co-infection with other viruses. Negative results do not preclude SARS-CoV-2 infection andshould not be used as the sole basis for patient managementdecisions. Negative results must be combined with otherclinical observations, patient history, and epidemiologicalinformation . Detection of SARS-CoV-2 RNA may be affected bysample collection methods, storage conditions, and/or stageof infection. Viral RNA mutations, vaccinations, antiviraltherapeutics, antibiotics, chemotherapeutic orimmunosuppressant drugs have not been evaluated for effectson detection. Results are for the identification of SARS-CoV-2 RNA usingreal-time (RT) polymerase chain reaction (PCR) technologyfor the qualitative detection of nucleic acids from eovHILV-FmJ-7 virus and diagnosis of SARS-CoV-2 virusinfection. It is an Emergency Use Authorization (EUA) testauthorized by the U.S. FDA. BASIC METABOLIC [id number] 19:19:00* Test Item Value Reference Range Interpretation Comme nts SODIUM (test code = NA) 143 mmol/L 136-145 N POTASSIUM (test code = K) 4.7 mmol/L 3.5-5.1 N CHLORIDE (test code = CL) 108 mmol/l 98-107 H CARBON DIOXIDE (test code = CO2) 26 mmol/L 20-31 N GLUCOSE (test code = GLU) 109 mg/dL 74-106 H BLOOD UREA NITROGEN (test code = BUN) 26 mg/dL 9-23 H GLOMERULAR FILTRATION RATE (test code = GFR) >=60 max estimate mL/min >60 The Glomerular Filtration Rate is a calculated parameterbased on serum Creatinine, patient age and sex. GFR valuesless than 60 mL/min/1.73 square meters are indicative ofChronic Kidney Disease. Values less than 15 mL/min/1.73square meters indicate Kidney failure. The calculation forGFR is based on the CKD-EPI (202) calculation. This formulais race indifferent and is the recommended formula for GFRby the National Kidney Foundation for Adults.The GFR will not calculate if the sex is unknown or if thepatient's age is <18 years. CREATININE (test code = CREAT) 1.10 mg/dL 0.70-1.30 N CALCIUM (test code = CA) 8.4 mg/dL 8.7-10.4 L [id number] 19:19:00* Test Item Value Reference Range Interpretation Comme nts PHOSPHOROUS (test code = PHOS) 3.2 mg/dL 2.4-5.1 N [id number] 19:19:00* Test Item Value Reference Range Interpretation Comme nts MAGNESIUM (test code = MAG) 1.7 mg/dL 1.6-2.6 N CBC W/AUTO [id number] 18:51:00* Test Item Value Reference Range Interpretation Comme nts WHITE BLOOD CELL (test code = WBC) 9.4 x10 3/uL 4.8-10.8 N RED BLOOD CELL (test code = RBC) 3.37 x10 6/uL 4.70-6.10 L HEMOGLOBIN (test code = HGB) 12.1 g/dL 14.0-18.0 L HEMATOCRIT (test code = HCT) 37.1 % 42.0-52.0 L MEAN CELL VOLUME (test code = MCV) 110.1 fL 80.0-94.0 H MEAN CELL HGB (test code = MCH) 35.9 pg 27-31 H MEAN CELL HGB CONCENTRATION (test code = MCHC) 32.6 G/DL 33-36.5 L RED CELL DISTRIBUTION WIDTH (test code = RDW) 12.2 % 12.9-16.9 L PLATELET COUNT (test code = PLT) 183 x10 3/uL 150-440 N MEAN PLATELET VOLUME (test c ode = MPV) 9.4 fL 8.9-12.4 N NEUTROPHIL % (test code = NT%) 63.1 % 42.2-75.2 N LYMPHOCYTE % (test code = LY%) 22.4 % 20.5-51.1 N MONOCYTE % (test code = MO%) 11.3 % 1.7-9.3 H EOSINOPHIL % (test code = EO%) 2.5 % 0.0-7.0 N BASOPHIL % (test code = BA%) 0.4 % 0-2.5 N NEUTROPHIL # (test code = NT#) 5.90 x10 3/uL 1.80-7.70 N LYMPHOCYTE # (test code = LY#) 2.10 x10 3/uL 1.00-4.80 N MONOCYTE # (test code = MO#) 1.06 x10 3/uL 0.00-0.80 H EOSINOPHIL # (test code = EO#) 0.23 x10 3/uL 0.00-0.45 N BASOPHIL # (test code = BA#) 0.04 x10 3/uL 0.0-0.20 N COMPREHENSIVE METABOLIC [id number] 16:49:00* Test Item Value Reference Range Interpretation Comme nts SODIUM (test code = NA) 141 mmol/L 136-145 N POTASSIUM (test code = K) 4.3 mmol/L 3.5-5.1 N CHLORIDE (test code = CL) 106 mmol/l 98-107 N CARBON DIOXIDE (test code = CO2) 28 mmol/L 20-31 N GLUCOSE (test code = GLU) 113 mg/dL 74-106 H BLOOD UREA NITROGEN (test code = BUN) 21 mg/dL 9-23 N GLOMERULAR FILTRATION RATE (test code = GFR) >=60 max estimate mL/min >60 The Glomerular Filtration Rate is a calculated parameterbased on serum Creatinine, patient age and sex. GFR valuesless than 60 mL/min/1.73 square meters are indicative ofChronic Kidney Disease. Values less than 15 mL/min/1.73square meters indicate Kidney failure. The calculation forGFR is based on the CKD-EPI (202) calculation. This formulais race indifferent and is the recommended formula for GFRby the National Kidney Foundation for Adults.The GFR will not calculate if the sex is unknown or if thepatient's age is <18 years. CREATININE (test code = CREAT) 1.10 mg/dL 0.70-1.30 N TOTAL PROTEIN (test code = PROT) 6.0 g/dL 5.7-8.2 N ALBUMIN (test code = ALB) 3.9 g/dL 3.2-4.8 N CALCIUM (test code = CA) 8.8 mg/dL 8.7-10.4 N BILIRUBIN TOTAL (test code = BILT) 1.9 mg/dL 0.3-1.2 H SGOT/AST (test code = AST) 15 U/L <34 N SGPT/ALT (test code = ALT) 9 U/L 10-49 L ALKALINE PHOSPHATASE (test code = ALKP) 57.0 U/L 46-116 N CBC W/AUTO [id number] 16:30:00* Test Item Value Reference Range Interpretation Comme nts WHITE BLOOD CELL (test code = WBC) 8.3 x10 3/uL 4.8-10.8 N RED BLOOD CELL (test code = RBC) 3.28 x10 6/uL 4.70-6.10 L HEMOGLOBIN (test code = HGB) 11.8 g/dL 14.0-18.0 L HEMATOCRIT (test code = HCT) 35.7 % 42.0-52.0 L MEAN CELL VOLUME (test code = MCV) 108.8 fL 80.0-94.0 H MEAN CELL HGB (test code = MCH) 36.0 pg 27-31 H MEAN CELL HGB CONCENTRATION (test code = MCHC) 33.1 G/DL 33-36.5 N RED CELL DISTRIBUTION WIDTH (test code = RDW) 12.1 % 12.9-16.9 L PLATELET COUNT (test code = PLT) 172 x10 3/uL 150-440 N MEAN PLATELET VOLUME (test c ode = MPV) 8.9 fL 8.9-12.4 N NEUTROPHIL % (test code = NT%) 71.3 % 42.2-75.2 N LYMPHOCYTE % (test code = LY%) 14.4 % 20.5-51.1 L MONOCYTE % (test code = MO%) 12.4 % 1.7-9.3 H EOSINOPHIL % (test code = EO%) 1.3 % 0.0-7.0 N BASOPHIL % (test code = BA%) 0.4 % 0-2.5 N NEUTROPHIL # (test code = NT#) 5.91 x10 3/uL 1.80-7.70 N LYMPHOCYTE # (test code = LY#) 1.19 x10 3/uL 1.00-4.80 N MONOCYTE # (test code = MO#) 1.03 x10 3/uL 0.00-0.80 H EOSINOPHIL # (test code = EO#) 0.11 x10 3/uL 0.00-0.45 N BASOPHIL # (test code = BA#) 0.03 x10 3/uL 0.0-0.20 N COVID 19 INHOUSE [id number] 17:12:00* Test Item Value Reference Range Interpretation Comme nts COVID 19 INHOUSE AG (test code = [id number]) NEGATIVE NEGATIVE Negative results , from patients with symptom onset beyondfive days, should be treated as presumptive and confirmationwith a molecular assay, if necessary for patientmanagement, may be performed. Negative results do not ruleout COVID-19 and should not be used as the sole basis fortreatment or patient management decisions, includinginfection control decisions. Negative results should beconsidered in the context of a patient's recent exposures,history and the presence of clinical signs and symptomsconsistent with COVID-19. PROTHROMBIN [id number] 08:09:00* Test Item Value Reference Range Interpretation Comme nts PT PATIENT (test code = PTP) 13.9 SECONDS 9.3-12.9 H INTERNATIONAL NORMAL RATIO (test code = INR) 1.27 INR Unit 0.8-1.2 H TARGET INR BY INDICATION Indication INR1. Prophylaxis of venous thrombosis 2.0 - 3.0 (orthopedic surgery), Prophylaxis of venous thrombosis (other than high-risk surgery), Treatment of Deep Vein Thrombosis/Pulmonary Embolism, Prevention of systemic embolism - Tissue heart valves, Acute Myocardial Infarction (to prevent systemic embolism), Valvular heart disease, Acute Myocardial Infarction (to prevent systemic embolism), Valvular heart disease, Atrial Fibrillation, Bileaflet mechanical valve in aortic position.2. Mechanical prosthetic valves (high risk), 2.5 - 3.5 Presence of Lupus Anticoagulant or Antiphospholipid Antibodies, Prevention of systemic embolism - Acute Myocardial Infarction (to prevent recurrent infarct). COMPREHENSIVE METABOLIC [id number] 08:09:00* Test Item Value Reference Range Interpretation Comme nts SODIUM (test code = NA) 142 mmol/L 134-147 N POTASSIUM (test code = K) 3.9 mmol/L 3.4-5.0 N CHLORIDE (test code = CL) 107 mmol/L 100-108 N CARBON DIOXIDE (test code = CO2) 31 mmol/L 21-32 N ANION GAP (test code = GAP) 4.0 GAP calc 4.0-15.0 N GLUCOSE (test code = GLU) 97 MG/DL 70-110 N BLOOD UREA NITROGEN (test code = BUN) 17 MG/DL 7-18 N GLOMERULAR FILTRATION RATE (test code = GFR) >=60 max estimate estGFR >60 The Glomerular Filtration Rate is a calculated parameterbased on serum Creatinine, patient age and sex. GFR valuesless than 60 mL/min/1.73 square meters are indicative ofChronic Kidney Disease. Values less than 15 mL/min/1.73square meters indicate Kidney failure. The calculation forGFR is based on the CKD-EPI (202) calculation. This formulais race indifferent and is the recommended formula for GFRby the National Kidney Foundation for Adults.The GFR will not calculate if the sex is unknown or if thepatient's age is <18 years. CREATININE (test code = CREAT) 1.0 MG/DL 0.8-1.3 N TOTAL PROTEIN (test code = PROT) 7.3 G/DL 6.4-8.2 N ALBUMIN (test code = ALB) 4.0 G/DL 3.4-5.0 N GLOBULIN (test code = GLOB) 3.3 GM/dL ALBUMIN/GLOBULIN RATIO (test code = A/G) 1.2 RATIO 1.2-2.2 N CALCIUM (test code = CA) 9.2 MG/DL 8.5-10.1 N BILIRUBIN TOTAL (test code = BILT) 2.30 MG/DL 0.2-1.2 H SGOT/AST (test code = AST) 16 Unit/L 15-37 N SGPT/ALT (test code = ALT) 18 Unit/L 12-78 N ALKALINE PHOSPHATASE TOTAL (test code = ALKP) 59 Unit/L 50-136 N LIPID PROFILE (CORONARY RISK)[id number] 08:09:00* Test Item Value Reference Range Interpretation Comme nts TRIGLYCERIDES (test code = TRIG) 109 MG/DL 0-150 N CHOLESTEROL (test code = CHOL) 139 MG/DL 133-200 N CHOLESTEROL/HDL RATIO (test code = CHOLHDL) 2.21 RATIO See_Comment RISK ASSOCIATED WITH CHOL/HDL RATIOS: RISK MALE FEMALE1/2 AVERAGE 3.43 3.27AVERAGE 4.97 4.442X AVERAGE 9.55 7.053X AVERAGE 23.39 11.04 NOTE THAT THE REFERENCE VALUE IS RELATED TO RISK LEVELS ASRECOMMENDED BY THE [facility]. [Automated message] The system which generated this result transmitted reference range: 0-. The reference range was not used to interpret this result as normal/abnormal. HDL CHOLESTEROL (test code = HDL) 63 MG/DL 40-59 H NON-HDL CHOLESTEROL (test code = NHDL) 76 mg/dL <130 LIPOPROTEIN LDL (test code = LDL) 66 MG/DL 0-129 N <100 [id number] 0 - 129 NEAR OPTIMAL/ABOVE [id number] - 159 [id number] - 189 HIGH>OR= 190 VERY HIGHNOTE THAT GUIDELINES ARE PROVIDED BY NATIONAL CHOLESTEROLEDUCATION PROGRAM ADULT TREATMENT PANEL III LDL/HDL (test code = LDL/HDL) 1.04 Ratio See_Comment L [Automated [employer] ge] The system which generated this result transmitted reference range: 1.48-3.22 Avg. The reference range was not used to interpret this result as normal/abnormal. [id number] 08:09:00* Test Item Value Reference Range Interpretation Comme nts MAGNESIUM (test code = MAG) 2.0 MG/DL 1.8-2.4 N CBC W/AUTO [id number] 07:52:00* Test Item Value Reference Range Interpretation Comme nts WHITE BLOOD CELL (test code = WBC) 5.0 K/mm3 3.5-11.0 N RED BLOOD CELL (test code = RBC) 4.09 M/mm3 4.70-6.10 L HEMOGLOBIN (test code = HGB) 14.6 G/DL 12.3-15.9 N HEMATOCRIT (test code = HCT) 43.7 % 35.8-46.7 N MEAN CELL VOLUME (test code = MCV) 106.8 Fl 86.3-98.9 H MEAN CELL HGB (test code = MCH) 35.7 pg 28.9-34.4 H MEAN CELL HGB CONCETRATION (test code = MCHC) 33.4 G/DL 32.1-34.5 N RED CELL DISTRIBUTION WIDTH (test code = RDW) 12.2 SD 11.5-14.5 N PLATELET COUNT (test code = PLT) 191 K/mm3 150-450 N MEAN PLATELET VOLUME (test c ode = MPV) 8.70 fL 7.0-9.6 N NEUTROPHIL % (test code = NT%) 58.9 % 40-76 N IMMATURE GRANULOCYTE % (test code = IG%) 0.2 % 0.0-5.0 N LYMPHOCYTE % (test code = LY%) 25.0 % 20.5-51.1 N MONOCYTE % (test code = MO%) 10.3 % 1.7-9.3 H EOSINOPHIL % (test code = EO%) 4.6 % 0.0-6.0 N BASOPHIL % (test code = BA%) 1.0 % 0.0-2.0 N NUCLEATED RBC % (test code = NRBC%) 0.0 /100WBC% 0.0-1.0 N NEUTROPHIL # (test code = NT#) 3.0 K/mm3 1.8-7.6 N IMMATURE GRANULOCYTE # (test code = IG#) 0.01 x10 3/uL 0.00-0.03 N LYMPHOCYTE # (test code = LY#) 1.3 K/mm3 0.6-3.0 N MONOCYTE # (test code = MO#) 0.5 K/mm3 0.2-1.5 N EOSINOPHIL # (test code = EO#) 0.2 K/mm3 0.0-0.4 N BASOPHIL # (test code = BA#) 0.1 K/mm3 0.0-0.2 N NUCLEATED RBC # (test code = NRBC#) 0.0 K/mm3 0.00-0.01 N [id number] 02:58:00* Test Item Value Reference Range Interpretation Comme nts TROPONIN-I (test code = TROPI) 0.962 NG/ML 0.012-0.033 CALLED TO ROCIO Dyson& READBACK ON 08/06/23 AT 0258 BY Shannan Hargrove BASIC METABOLIC [id number] 02:57:00* Test Item Value Reference Range Interpretation Comme nts SODIUM (test code = NA) 138 MMOL/L 137-145 N POTASSIUM (test code = K) 4.1 MMOL/L 3.5-5.1 N CHLORIDE (test code = CL) 104 MMOL/L 98-107 N CARBON DIOXIDE (test code = CO2) 25 MMOL/L 22-30 ANION GAP (test code = GAP) 13 MMOL/L 14-24 L GLUCOSE (test code = GLU) 88 MG/DL 74-106 N BLOOD UREA NITROGEN (test code = BUN) 18 MG/DL 9-20 N GLOMERULAR FILTRATION RATE (test code = GFR) > 60 The Glomerular Filtration Rate is a calculated parameterbased on serum Creatinine, patient age and sex. GFR valuesless than 60 mL/min/1.73 square meters are indicative ofChronic Kidney Disease. Values less than 15 mL/min/1.73square meters indicate Kidney failure. The calculation forGFR is based on the CKD-EPI (2020) calculation. This formulais race indifferent and is the recommended formula for GFRby the National Kidney Foundation for Adults.The GFR will not calculate if the sex is unknown or if thepatient's age is <18 years. CREATININE (test code = CREAT) 1.00 MG/DL 0.66-1.25 N CALCIUM (test code = CA) 8.8 MG/DL 8.4-10.2 N PROTHROMBIN [id number] 02:22:00* Test Item Value Reference Range Interpretation Comme nts PROTHROMBIN TIME PATIENT (test code = PTP) 15.1 SECONDS 10.1-12.6 H INTERNATIONAL NORMAL RATIO (test code = INR) 1.3 0.86-1.14 H The INR is to be used only for monitoring oral anticoagulanttherap y. INDICATION INR VALUE -------1. Prophylaxis, deep venous thrombosis, including high risk surgery. 2.0 - 3.0 2. Prophylaxis, deep venous thrombosis, hip surgery, treatment for deep venous thrombosis or pulmonary prevention of systemic embolism in patients with valvular heart disease, atrial fibrillation, tissue heart valve, or acute myocardial infarction. 2.0 - 3.0 3. Mechanical prosthesis heart valves, recurrent systemic embolism. 3.0 - 4.5 PTT [id number] 02:22:00* Test Item Value Reference Range Interpretation Comme nts PTT ACTIVATED (test code = APTT) 27.8 SECONDS 27.2-37.9 CBC W/AUTO [id number] 02:08:00* Test Item Value Reference Range Interpretation Comme nts WHITE BLOOD CELL (test code = WBC) 7.4 K/MM3 3.8-9.8 N RED BLOOD CELL (test code = RBC) 3.67 M/MM3 3.95-5.67 L HEMOGLOBIN (test code = HGB) 13.2 G/DL 12.4-16.7 N HEMATOCRIT (test code = HCT) 38.4 % 35.9-49.5 N MEAN CELL VOLUME (test code = MCV) 105 fL 81.7-96.1 H MEAN CELL HGB (test code = MCH) 36.0 pg 27.6-33.2 H MEAN CELL HGB CONCETRATION (test code = MCHC) 34.4 % 32.9-35.5 N RED CELL DISTRIBUTION WIDTH (test code = RDW) 12.3 % 12.1-15.2 N PLATELET COUNT (test code = PLT) 178 K/MM3 129-368 N MEAN PLATELET VOLUME (test c ode = MPV) 9.1 fl 7.4-10.4 N NEUTROPHIL % (test code = NT%) 65.8 % 43-75 N IMMATURE GRANULOCYTE % (test code = IG%) 0.3 % 0.0-2.0 N LYMPHOCYTE % (test code = LY%) 20.2 % 14-44 N MONOCYTE % (test code = MO%) 10.5 % 4-13 N EOSINOPHIL % (test code = EO%) 2.7 % 0-6 N BASOPHIL % (test code = BA%) 0.5 % 0-2 N NUCLEATED RBC % (test code = NRBC%) 0.0 % 0-1.0 N NEUTROPHIL # (test code = NT#) 4.87 K/mm3 2.0-7.6 N IMMATURE GRANULOCYTE # (test code = IG#) 0.02 x10 3/uL 0-0.03 N LYMPHOCYTE # (test code = LY#) 1.50 K/mm3 1.0-3.8 N MONOCYTE # (test code = MO#) 0.78 K/mm3 0.1-0.8 N EOSINOPHIL # (test code = EO#) 0.20 K/mm3 0.0-0.2 N BASOPHIL # (test code = BA#) 0.04 K/mm3 0.0-0.2 N NUCLEATED RBC # (test code = NRBC#) 0.00 K/mm3 0.0-0.1 N - CT HEAD/BRAIN W/O [id number] 20:00:00 [facility] 1935 Sex: M Patient Name: CHARLIE HART Unit No: [id number] EXAMS: CPT CODE: [id number] CT HEAD/BRAINW/O CONT 77373 LOCATION: Q15 HISTORY: 88-year-old male presents with difficulty talking. COMMENT: Axial imaging of the patient's brain was obtained without IV contrast. Soft tissue and bone window images were provided. Coronal and sagittal reconstructions were included. The study was obtained within 24 hours of the patient's arrival to this facility. One or more of the following dose reduction techniques were used: Automated exposure control, adjustment of the mA and/or kV according to patientsize, and/or utilization of iterative reconstruction technique. CONTRAST: None FINDINGS: There is no evidence of acute mass effect, midline shift, hemorrhage, or herniation. Senescent changes are demonstrated along with the prominent ventricular system with periventricular matter gliosis, in keeping with the central volume loss. There is no CT evidence of an acute infarct. The intracranial arterial vasculature is heavily calcified, particularly in the basilar system and vertebral arteries which are diffusely calcified and tortuous. The skeleton is intact. The right maxillary antrum is opacified, but the other paranasal sinuses are clear. The soft tissues are unremarkable. IMPRESSION: Senescent changes are demonstrated in this patient's brain as outlined above. No acute findings are seen.Right maxillary sinusitis is present. The vertebrobasilar anatomy is heavily calcified and tortuous. at 1999 Reported and signed by: Aquiles Wilson M.D. CC: Technologist: Irvin Osullivan, RT(R)(CT); H CTDI: DLP: Trnscrpt: 08/05/2023 (1999) GaneshRLA2 [facility] NAME: CHARLIE HART [id number] PHYS: [place] [address] : 1935 AGE: 88 SEX: M LOC: [facility]E [facility] PHONE #: [phone] EXAM DATE: 08/05/2023 STATUS: ADM IN FAX #: [phone] RAD #: D/C DT PAGE 1 Signed Report Patient Name: CHARLIE HART Unit No: [id number] EXAMS: CPT CODE: [id number] HEAD/BRAIN W/O CONT [id number] (Continued) Orig Print D/T: S: 08/05/2023 (2002) [facility] NAME: CHARLIE WHITLEY [id number] PHYS: [place] [address] : 1935 AGE: 88 SEX: M LOC: STEVE 2 PHONE #: [phone] EXAM DATE: 08/05/2023 STATUS: ADM IN FAX #: [phone] RAD #: D/C DT PAGE 2 Signed ReportLIPOPROTEIN LDL [id number] 13:15:00* Test Item Value Reference Range Interpretation Comme [facility] LIPOPROTEIN LDL DIRECT (test code = LDLDIR) 65 mg/dL 100-129 L Refe rence Interval: mg/dL mmol/L --Optimal <100 <2.6Near/above optimal 100-129 2.6-3.3Borderline High 130-159 3.4-4.1High 160-189 4.1-4.9Very High >=190 >=4.9========= This LDL result is a direct measurement.========= [id number] 13:15:00* Test Item Value Reference Range [facility]ation [facility] (test code = TROPI) 1.510 NG/ML 0.012-0.033 HH CALLED TO Ada NICOLE& READBACK ON 08/05/23 AT 1112 BY Karen Sweeney [id number] 13:01:00* Test Item Value Reference Range Interpretation Comme [facility] TROPONIN-I (test code = TROPI) 1.280 NG/ML 0.012-0.033 HH CALLED TO Ada NICOLE& READBACK ON 08/05/23 AT 1301 BY Karen Sweeney PROTHROMBIN [id number] 11:06:00* Test Item Value Reference Range Interpretation Comme [facility] PROT[facility]OMBIN TIME PATIENT (test code = PTP) 14.5 SECONDS 10.1-12.6 H INTERNATIONAL NORMAL RATIO (test code = INR) 1.3 0.86-1.14 H The INR is to be used only for monitoring oral anticoagulanttherap y. INDICATION INR VALUE -------1. Prophylaxis, deep venous thrombosis, including high risk surgery. 2.0 - 3.0 2. Prophylaxis, deep venous thrombosis, hip surgery, treatment for deep venous thrombosis or pulmonary prevention of systemic embolism in patients with valvular heart disease, atrial fibrillation, tissue heart valve, or acute myocardial infarction. 2.0 - 3.0 3. Mechanical prosthesis heart valves, recurrent systemic embolism. 3.0 - 4.5 PTT [id number] 11:06:00* Test Item Value Reference Range Interpretation Comme nts PTT ACTIVATED (test code = APTT) > 400.0 SECONDS 27.2-37.9 CALLED TO MORE Tyler R& READBACK ON 08/05/23 AT 1106 BY Zackery Wagner COMPREHENSIVE METABOLIC [id number] 10:55:00* Test Item Value Reference Range Interpretation Comme nts SODIUM (test code = NA) 138 MMOL/L 137-145 N POTASSIUM (test code = K) 4.1 MMOL/L 3.5-5.1 N CHLORIDE (test code = CL) 102 MMOL/L 98-107 N CARBON DIOXIDE (test code = CO2) 28 MMOL/L 22-30 N ANION GAP (test code = GAP) 12 MMOL/L 14-24 L GLUCOSE (test code = GLU) 91 MG/DL 74-106 N BLOOD UREA NITROGEN (test code = BUN) 15 MG/DL 9-20 N GLOMERULAR FILTRATION RATE (test code = GFR) > 60 The Glomerular Filtration Rate is a calculated parameterbased on serum Creatinine, patient age and sex. GFR valuesless than 60 mL/min/1.73 square meters are indicative ofChronic Kidney Disease. Values less than 15 mL/min/1.73square meters indicate Kidney failure. The calculation forGFR is based on the CKD-EPI (2020) calculation. This formulais race indifferent and is the recommended formula for GFRby the National Kidney Foundation for Adults.The GFR will not calculate if the sex is unknown or if thepatient's age is <18 years. CREATININE (test code = CREAT) 0.90 MG/DL 0.66-1.25 N TOTAL PROTEIN (test code = PROT) 7.4 G/DL 6.2-7.6 N Ortho Clinical D iagnostic has made us aware of newinformation regarding the potential interference ofEltrombopag (a bone marrow stimulant used to treatthrombocytonmenia and aplastic anemia) with specific assayson the Vitros 5600 of which Total Protein is one of thoseassays performed in our lab.Interference testing performed at Ortho determined thatEltrombopag does interfere with Vitros Total Protein asfollowsEltrombopag Interference for Vitros Product Total Protein: Eltrombopag Max Observed Avg. BiasConcentration Concentration Concentration 2.5 mg/dl 6.0 g/dl +0.41 +0.34 3.5 mg/dl 6.0 g/dl +0.50 +0.45 5 mg/dl 6.0 g/dl +0.73 +0.65 2.5 mg/dl 8.0 g/dl +0.44 +0.41 3.5 mg/dl 8.0 g/dl +0.55 +0.52 5 mg/dl 8.0 g/dl +0.86 +0.77 ALBUMIN (test code = ALB) 4.3 G/DL 3.5-5.0 N CALCIUM (test code = CA) 9.2 MG/DL 8.4-10.2 N BILIRUBIN TOTAL (test code = BILT) 2.1 MG/DL 0.2-1.3 H Eltrombopag Inte rference for Vitros Product TBil, BuBc: Assay Eltrombopag Analyte/ Max Observed Avg. Bias Concentration Concentration Concentration TBil 7mg/dl TBil/ 1.2mg/dl +0.23mg.dl +0.20mg/dlBuBc 3.5mg/dl Bu/0.8mg/dl +0.25mg/dl +0.24mg/dlBuBc 7 mg/dl Bu/14.2mg/dl +0.38mg/dl +0.25mg/dlBuBc 5mg/dl Bc/0mg/dl +0.25mg/dl +0.15mg/dlBuBc 3.5mg/dl Bc/2.8mg/dl +0.25mg/dl +0.23mg/dl SGOT/AST (test code = AST) 35 UNITS/L 17-59 N SGPT/ALT (test code = ALT) 15 UNITS/L 0-49 ALKALINE PHOSPHATASE (test code = ALKP) 59 UNITS/L 38-126 N RECOLLECTION NEEDED ON 08/05/23 AT 0818 BY Z.LAB.CAREASON: HEMOLYZEDNOTIFIED PATIENT CARE STAFF: [id number] 10:55:00* Test Item Value Reference Range Interpretation Comme nts PHOSPHOROUS (test code = PHOS) 3.8 MG/DL 2.5-4.5 N RECOLLECTION NEEDED ON 08/05/23 AT 0818 BY Z.LAB.CAREASON: HEMOLYZEDNOTIFIED PATIENT CARE STAFF: [id number] 10:55:00* Test Item Value Reference Range Interpretation Comme nts MAGNESIUM (test code = MAG) 1.8 MG/DL 1.6-2.3 N RECOLLECTION NEEDED ON 08/05/23 AT 0818 BY Z.LAB.CAREASON: HEMOLYZEDNOTIFIED PATIENT CARE STAFF: KIESHAR- XR CHEST [id number] 09:58:00 [facility] 1935 Sex: M Patient Name: CHARLIE HART Unit No: [id number] EXAMS: CPT CODE: [id number] XR CHEST 1V 30070 EXAMINATION: - XR CHEST 1V. LOCATION: B2. HISTORY: Chest pain. COMPARISON: Radiograph dated 12/16/2021. TECHNIQUE: Single AP view of the chest was obtained. FINDINGS: The heart is normal in size. Left pacemaker device is present. Linear bibasilar opacities are seen. Right shoulder arthroplasty is noted. No acute osseous abnormality is identified. IMPRESSION: Mild bibasilar atelectasis. at 0958 Reported and signed by: Carito Sosa MD CC: Clinton Moreau MD Technologist: RICH MERA Transcrpt Date/Tm/Trnsp: 08/05/2023 (0958) Rosa.[email or web address] Orig Print D/T: S: 08/05/2023 (1001) [facility] NAME: CHARLIE HART [id number] PHYS: [id number] - [place] [address] : 1935 AGE: 88 SEX: M LOC: ZSAV 2 PHONE #: [phone] EXAM DATE: 08/05/2023 STATUS: ADM IN FAX #: [phone] RADIOLOGY NO: PAGE 1 Signed ReportPLATELET [id number] 09:54:00* Test Item Value Reference Range Interpretation Comme nts PLATELET COUNT (test code = PLT) 154 K/MM3 129-368 N CBC W/AUTO [id number] 07:40:00* Test Item Value Reference Range Interpretation Comme nts WHITE BLOOD CELL (test code = WBC) 6.8 K/MM3 3.8-9.8 N RED BLOOD CELL (test code = RBC) 3.80 M/MM3 3.95-5.67 L HEMOGLOBIN (test code = HGB) 13.7 G/DL 12.4-16.7 N HEMATOCRIT (test code = HCT) 41.1 % 35.9-49.5 N MEAN CELL VOLUME (test code = MCV) 108 fL 81.7-96.1 H MEAN CELL HGB (test code = MCH) 36.1 pg 27.6-33.2 H MEAN CELL HGB CONCETRATION (test code = MCHC) 33.3 % 32.9-35.5 N RED CELL DISTRIBUTION WIDTH (test code = RDW) 12.1 % 12.1-15.2 N PLATELET COUNT (test code = PLT) 173 K/MM3 129-368 N MEAN PLATELET VOLUME (test c ode = MPV) 9.3 fl 7.4-10.4 N NEUTROPHIL % (test code = NT%) 54.5 % 43-75 N IMMATURE GRANULOCYTE % (test code = IG%) 0.1 % 0.0-2.0 N LYMPHOCYTE % (test code = LY%) 28.7 % 14-44 N MONOCYTE % (test code = MO%) 11.1 % 4-13 N EOSINOPHIL % (test code = EO%) 4.6 % 0-6 N BASOPHIL % (test code = BA%) 1.0 % 0-2 N NUCLEATED RBC % (test code = NRBC%) 0.0 % 0-1.0 N NEUTROPHIL # (test code = NT#) 3.67 K/mm3 2.0-7.6 N IMMATURE GRANULOCYTE # (test code = IG#) 0.01 x10 3/uL 0-0.03 N LYMPHOCYTE # (test code = LY#) 1.94 K/mm3 1.0-3.8 N MONOCYTE # (test code = MO#) 0.75 K/mm3 0.1-0.8 N EOSINOPHIL # (test code = EO#) 0.31 K/mm3 0.0-0.2 H BASOPHIL # (test code = BA#) 0.07 K/mm3 0.0-0.2 N NUCLEATED RBC # (test code = NRBC#) 0.00 K/mm3 0.0-0.1 N GLUCOSE BEDSIDE [id number] 11:56:00* Test Item Value Reference Range Interpretation Comme nts GLUCOSE BEDSIDE TESTING (pastora t code = GLUBED) 100 MG/DL 60-99 H BASIC METABOLIC [id number] 08:16:00* Test Item Value Reference Range Interpretation Comme nts SODIUM (test code = NA) 136 MMOL/L 137-145 L POTASSIUM (test code = K) 4.1 MMOL/L 3.5-5.1 N CHLORIDE (test code = CL) 103 MMOL/L 98-107 N CARBON DIOXIDE (test code = CO2) 27 MMOL/L 22-30 N ANION GAP (test code = GAP) 10 MMOL/L 14-24 L GLUCOSE (test code = GLU) 92 MG/DL 74-106 N BLOOD UREA NITROGEN (test code = BUN) 16 MG/DL 9-20 N GLOMERULAR FILTRATION RATE (test code = GFR) > 60 Reporting units: ml/min/1.73 m2 (Modified MDRD Formula)Reference Range: > or = 60 ml/min/1.73 m2 CREATININE (test code = CREAT) 1.00 MG/DL 0.66-1.25 N CALCIUM (test code = CA) 8.5 MG/DL 8.4-10.2 N UNABLE TO DRAW BLOOD, REASON: PT CARENOTIFIED PATIENT CARE STAFF: JARROD 12/16/21 AT 0638 BY Vivek Eli CHEST [id number] 08:16:00 [facility] : 1935 Sex: M Patient Name: CHARLIE HART Unit No: [id number] EXAMS: CPT CODE: [id number] XR CHEST 1V 28563 Portable AP chest, 1 view Location Code: D4 CLINICAL HISTORY: S/P ICD COMPARISON: 12/15/2021 COMMENT: The heart size is enlarged with left subclavian AICD. Central pulmonary edema pattern and small effusions appear slightly improved in the interval. Stable right shoulder arthroplasty. IMPRESSION: Slight improvement in mild CHF. at 0816 Reported and signed by: Jamari Berg MD CC: Deyvi Celis MD Technologist: Jamari Up, RT(R) Transcrpt Date/Tm/Trnsp: 12/16/2021 (815) [email or web address] Orig Print D/T: S: 12/16/2021 (08) [facility] NAME: CHARLIE HART [id number] PHYS: [place] [address] : 1935 AGE: 86 SEX: M LOC: [id number] A PHONE #: [phone] EXAM DATE: 12/16/2021 STATUS: ADM IN FAX #: [phone] RADIOLOGY NO: PAGE 1 Signed ReportGLUCOSE BEDSIDE [id number] 08:11:00* Test Item Value Reference Range Interpretation Comme nts GLUCOSE BEDSIDE TESTING (pastora t code = GLUBED) 99 MG/DL 60-99 N CBC W/AUTO [id number] 08:08:00* Test Item Value Reference Range Interpretation Comme nts WHITE BLOOD CELL (test code = WBC) 8.1 K/MM3 3.8-9.8 N RED BLOOD CELL (test code = RBC) 3.74 M/MM3 3.95-5.67 L HEMOGLOBIN (test code = HGB) 13.1 G/DL 12.4-16.7 N HEMATOCRIT (test code = HCT) 40.3 % 35.9-49.5 N MEAN CELL VOLUME (test code = MCV) 108 fL 81.7-96.1 H MEAN CELL HGB (test code = MCH) 35.0 pg 27.6-33.2 H MEAN CELL HGB CONCETRATION (test code = MCHC) 32.5 % 32.9-35.5 L RED CELL DISTRIBUTION WIDTH (test code = RDW) 12.1 % 12.1-15.2 N PLATELET COUNT (test code = PLT) 156 K/MM3 129-368 N MEAN PLATELET VOLUME (test c ode = MPV) 9.5 fl 7.4-10.4 N NEUTROPHIL % (test code = NT%) 72.9 % 43-75 N IMMATURE GRANULOCYTE % (test code = IG%) 0.4 % 0.0-2.0 N LYMPHOCYTE % (test code = LY%) 13.9 % 14-44 L MONOCYTE % (test code = MO%) 10.4 % 4-13 N EOSINOPHIL % (test code = EO%) 2.2 % 0-6 N BASOPHIL % (test code = BA%) 0.2 % 0-2 N NUCLEATED RBC % (test code = NRBC%) 0.0 % 0-1.0 N NEUTROPHIL # (test code = NT#) 5.86 K/mm3 2.0-7.6 N IMMATURE GRANULOCYTE # (test code = IG#) 0.03 x10 3/uL 0-0.03 N LYMPHOCYTE # (test code = LY#) 1.12 K/mm3 1.0-3.8 N MONOCYTE # (test code = MO#) 0.84 K/mm3 0.1-0.8 H EOSINOPHIL # (test code = EO#) 0.18 K/mm3 0.0-0.2 N BASOPHIL # (test code = BA#) 0.02 K/mm3 0.0-0.2 N NUCLEATED RBC # (test code = NRBC#) 0.00 K/mm3 0.0-0.1 N UNABLE TO DRAW BLOOD, REASON: PT CARENOTIFIED PATIENT CARE STAFF: GABI POND 12/16/21 AT 0639 BY Julia EliGLUCOSE BEDSIDE [id number] 20:24:00* Test Item Value Reference Range Interpretation Comme nts GLUCOSE BEDSIDE TESTING (pastora t code = GLUBED) 99 MG/DL 60-99 N GLUCOSE BEDSIDE [id number] 16:02:00* Test Item Value Reference Range Interpretation Comme nts GLUCOSE BEDSIDE TESTING (pastora t code = GLUBED) 117 MG/DL 60-99 H - XR CHEST [id number] 12:07:00 [facility] : 1935 Sex: M Patient Name: CHARLIE HART Unit No: [id number] EXAMS: CPT CODE: [id number] XR CHEST 1V 98100 HISTORY: Status post ICD Location: C3 COMPARISON:None FINDINGS: There is mild cardiomegaly. Aortic calcifications are present. Vascularity is borderline prominent. Left subclavian pacemaker is noted with tips overlying the RA and RV. No pneumothorax. IMPRESSION: 1. Cardiomegaly with mild vascular congestion. at 1207 Reported and signed by: Aquiles Powell MD CC: Deyvi Celis MD Technologist: MICHAEL Evans, RT(R) Transcrpt Date/Tm/Trnsp: 12/15/2021 (1207) t.[email or web address] [facility] NAME: CHARLIE HART [id number] [address] PHYS: [place] [address] : 1935 AGE: 86 SEX: M : Z.350 A PHONE #: [phone] EXAM DATE: 12/15/2021 STATUS: ADM IN FAX #: [phone] RADIOLOGY NO: PAGE 1 Signed ReportGLUCOSE BEDSIDE [id number] 07:29:00* Test Item Value Reference Range Interpretation Comme [facility] GLUCOSE BEDSIDE TESTING (pastora t code = GLUBED) 79 MG/DL 60-99 N PROTHROMBIN [id number] 06:17:00* Test Item Value Reference Range Interpretation Comme nts PROTHROMBIN TIME PATIENT (test code = PTP) 12.6 SECONDS 9.4-12.7 N INTERNATIONAL NORMAL RATIO (test code = INR) 1.1 0.86-1.14 N The INR is to be used only for monitoring oral anticoagulanttherap y. INDICATION INR VALUE -------1. Prophylaxis, deep venous thrombosis, including high risk surgery. 2.0 - 3.0 2. Prophylaxis, deep venous thrombosis, hip surgery, treatment for deep venous thrombosis or pulmonary prevention of systemic embolism in patients with valvular heart disease, atrial fibrillation, tissue heart valve, or acute myocardial infarction. 2.0 - 3.0 3. Mechanical prosthesis heart valves, recurrent systemic embolism. 3.0 - 4.5 PTT [id number] 06:17:00* Test Item Value Reference Range Interpretation Comme nts PTT ACTIVATED (test code = APTT) 25.2 SECONDS 26.2-35.4 L BASIC METABOLIC [id number] 06:16:00* Test Item Value Reference Range Interpretation Comme nts SODIUM (test code = NA) 141 MMOL/L 137-145 N POTASSIUM (test code = K) 4.6 MMOL/L 3.5-5.1 N CHLORIDE (test code = CL) 107 MMOL/L 98-107 N CARBON DIOXIDE (test code = CO2) 26 MMOL/L 22-30 N ANION GAP (test code = GAP) 13 MMOL/L 14-24 L GLUCOSE (test code = GLU) 89 MG/DL 74-106 N BLOOD UREA NITROGEN (test code = BUN) 18 MG/DL 9-20 N GLOMERULAR FILTRATION RATE (test code = GFR) > 60 Reporting units: ml/min/1.73 m2 (Modified MDRD Formula)Reference Range: > or = 60 ml/min/1.73 m2 CREATININE (test code = CREAT) 1.10 MG/DL 0.66-1.25 N CALCIUM (test code = CA) 8.7 MG/DL 8.4-10.2 N CBC W/AUTO [id number] 06:05:00* Test Item Value Reference Range Interpretation Comme nts WHITE BLOOD CELL (test code = WBC) 7.7 K/MM3 3.8-9.8 N RED BLOOD CELL (test code = RBC) 3.69 M/MM3 3.95-5.67 L HEMOGLOBIN (test code = HGB) 13.0 G/DL 12.4-16.7 N HEMATOCRIT (test code = HCT) 40.3 % 35.9-49.5 N MEAN CELL VOLUME (test code = MCV) 109 fL 81.7-96.1 H MEAN CELL HGB (test code = MCH) 35.2 pg 27.6-33.2 H MEAN CELL HGB CONCETRATION (test code = MCHC) 32.3 % 32.9-35.5 L RED CELL DISTRIBUTION WIDTH (test code = RDW) 12.3 % 12.1-15.2 N PLATELET COUNT (test code = PLT) 165 K/MM3 129-368 N MEAN PLATELET VOLUME (test c ode = MPV) 9.3 fl 7.4-10.4 N NEUTROPHIL % (test code = NT%) 64.1 % 43-75 N IMMATURE GRANULOCYTE % (test code = IG%) 0.3 % 0.0-2.0 N LYMPHOCYTE % (test code = LY%) 20.5 % 14-44 N MONOCYTE % (test code = MO%) 11.4 % 4-13 N EOSINOPHIL % (test code = EO%) 3.0 % 0-6 N BASOPHIL % (test code = BA%) 0.7 % 0-2 N NUCLEATED RBC % (test code = NRBC%) 0.0 % 0-1.0 N NEUTROPHIL # (test code = NT#) 4.92 K/mm3 2.0-7.6 N IMMATURE GRANULOCYTE # (test code = IG#) 0.02 x10 3/uL 0-0.03 N LYMPHOCYTE # (test code = LY#) 1.57 K/mm3 1.0-3.8 N MONOCYTE # (test code = MO#) 0.87 K/mm3 0.1-0.8 H EOSINOPHIL # (test code = EO#) 0.23 K/mm3 0.0-0.2 H BASOPHIL # (test code = BA#) 0.05 K/mm3 0.0-0.2 N NUCLEATED RBC # (test code = NRBC#) 0.00 K/mm3 0.0-0.1 N COVID 19 Asymptomatic IH [id number] 03:54:00* Test Item Value Reference Range Interpretation Comme nts COVID 19 Asymptomatic IH AG (test code = COVNONPUIAG) NEGATIVE Negative "Negative result s from patients with symptom onset beyondfive days, should be treated as presumptive, andconfirmation with a molecular assay, if necessary forpatient management may be performed. Negative results do notrule out COVID-19 and should not be used as the sole basisfor treatment or patient management decisions, includinginfection control decisions. Negative results should beconsidered in the context of a patients recent exposures,history, and the presence of clinical signs and symptomsconsistent with COVID-19.This test detects both viable andnon-viable SARS-CoV and SARS CoV-2.Test performance dependson the amount of virus (antigen) in the sample." BASIC METABOLIC [id number] 07:26:00* Test Item Value Reference Range Interpretation Comme nts SODIUM (test code = NA) 139 MMOL/L 137-145 N POTASSIUM (test code = K) 4.0 MMOL/L 3.5-5.1 N CHLORIDE (test code = CL) 109 MMOL/L 98-107 H CARBON DIOXIDE (test code = CO2) 25 MMOL/L 22-30 N ANION GAP (test code = GAP) 9 MMOL/L 14-24 L GLUCOSE (test code = GLU) 81 MG/DL 74-106 N BLOOD UREA NITROGEN (test code = BUN) 15 MG/DL 9-20 N GLOMERULAR FILTRATION RATE (test code = GFR) > 60 Reporting units: ml/min/1.73 m2 (Modified MDRD Formula)Reference Range: > or = 60 ml/min/1.73 m2 CREATININE (test code = CREAT) 1.00 MG/DL 0.66-1.25 N CALCIUM (test code = CA) 7.8 MG/DL 8.4-10.2 L [id number] 07:26:00* Test Item Value Reference Range Interpretation Comme nts TROPONIN-I (test code = TROPI) < 0.012 NG/ML 0.012-0.033 L CBC W/AUTO [id number] 06:53:00* Test Item Value Reference Range Interpretation Comme nts WHITE BLOOD CELL (test code = WBC) 6.8 K/MM3 3.8-9.8 N RED BLOOD CELL (test code = RBC) 3.79 M/MM3 3.95-5.67 L HEMOGLOBIN (test code = HGB) 13.5 G/DL 12.4-16.7 N HEMATOCRIT (test code = HCT) 41.5 % 35.9-49.5 MEAN CELL VOLUME (test code = MCV) 110 fL 81.7-96.1 H MEAN CELL HGB (test code = MCH) 35.6 pg 27.6-33.2 H MEAN CELL HGB CONCETRATION (test code = MCHC) 32.5 % 32.9-35.5 L RED CELL DISTRIBUTION WIDTH (test code = RDW) 12.2 % 12.1-15.2 N PLATELET COUNT (test code = PLT) 166 K/MM3 129-368 N MEAN PLATELET VOLUME (test c ode = MPV) 9.3 fl 7.4-10.4 N NEUTROPHIL % (test code = NT%) 65.3 % 43-75 N IMMATURE GRANULOCYTE % (test code = IG%) 0.3 % 0.0-2.0 N LYMPHOCYTE % (test code = LY%) 22.3 % 14-44 N MONOCYTE % (test code = MO%) 8.9 % 4-13 N EOSINOPHIL % (test code = EO%) 2.6 % 0-6 N BASOPHIL % (test code = BA%) 0.6 % 0-2 N NUCLEATED RBC % (test code = NRBC%) 0.0 % 0-1.0 N NEUTROPHIL # (test code = NT#) 4.46 K/mm3 2.0-7.6 N IMMATURE GRANULOCYTE # (test code = IG#) 0.02 x10 3/uL 0-0.03 N LYMPHOCYTE # (test code = LY#) 1.52 K/mm3 1.0-3.8 N MONOCYTE # (test code = MO#) 0.61 K/mm3 0.1-0.8 N EOSINOPHIL # (test code = EO#) 0.18 K/mm3 0.0-0.2 N BASOPHIL # (test code = BA#) 0.04 K/mm3 0.0-0.2 N NUCLEATED RBC # (test code = NRBC#) 0.00 K/mm3 0.0-0.1 N DIFFERENTIAL [id number] 06:53:00* Test Item Value Reference Range Interpretation Comme nts RBC MORPHOLOGY REQUIRED (pastora t code = RBCM) PLATELET ESTIMATE (test code = PLTEST) ADEQUATE PLATELET MORPHOLOGY (test co de = PLTMORPH) NORMAL [id number] 01:42:00* Test Item Value Reference Range Interpretation Comme nts TROPONIN-I (test code = TROPI) < 0.012 NG/ML 0.012-0.033 L THYROID STIMULATING [id number] 18:47:00* Test Item Value Reference Range Interpretation Comme nts THYROID STIMULATING HORMONE (test code = TSH) 1.310 MIU/L 0.465-4.68 N Please be aware that bias results for TSH may occur forpatient who are taking Biotin supplements. COMPREHENSIVE METABOLIC [id number] 17:48:00* Test Item Value Reference Range Interpretation Comme nts SODIUM (test code = NA) 140 MMOL/L 137-145 N POTASSIUM (test code = K) 4.3 MMOL/L 3.5-5.1 N CHLORIDE (test code = CL) 107 MMOL/L 98-107 N CARBON DIOXIDE (test code = CO2) 26 MMOL/L 22-30 N GLUCOSE (test code = GLU) 92 MG/DL 74-106 N BLOOD UREA NITROGEN (test code = BUN) 15 MG/DL 9-20 N GLOMERULAR FILTRATION RATE (test code = GFR) > 60 Reporting unit s: ml/min/1.73 m2 (Modified MDRD Formula)Reference Range: > or = 60 ml/min/1.73 m2 CREATININE (test code = CREAT) 1.00 MG/DL 0.66-1.25 N TOTAL PROTEIN (test code = PROT) 6.3 G/DL 6.2-7.6 N Ortho Clinical D iagnostic has made us aware of newinformation regarding the potential interference ofEltrombopag (a bone marrow stimulant used to treatthrombocytonmenia and aplastic anemia) with specific assayson the Vitros 5600 of which Total Protein is one of thoseassays performed in our lab.Interference testing performed at Ortho determined thatEltrombopag does interfere with Vitros Total Protein asfollowsEltrombopag Interference for Vitros Product Total Protein: Eltrombopag Max Observed Avg. BiasConcentration Concentration Concentration 2.5 mg/dl 6.0 g/dl +0.41 +0.34 3.5 mg/dl 6.0 g/dl +0.50 +0.45 5 mg/dl 6.0 g/dl +0.73 +0.65 2.5 mg/dl 8.0 g/dl +0.44 +0.41 3.5 mg/dl 8.0 g/dl +0.55 +0.52 5 mg/dl 8.0 g/dl +0.86 +0.77 ALBUMIN (test code = ALB) 3.5 G/DL 3.5-5.0 N CALCIUM (test code = CA) 8.5 MG/DL 8.4-10.2 N BILIRUBIN TOTAL (test code = BILT) 1.5 MG/DL 0.2-1.3 H Eltrombopag Inte rference for Vitros Product TBil, BuBc: Assay Eltrombopag Analyte/ Max Observed Avg. Bias Concentration Concentration Concentration TBil 7mg/dl TBil/ 1.2mg/dl +0.23mg.dl +0.20mg/dlBuBc 3.5mg/dl Bu/0.8mg/dl +0.25mg/dl +0.24mg/dlBuBc 7 mg/dl Bu/14.2mg/dl +0.38mg/dl +0.25mg/dlBuBc 5mg/dl Bc/0mg/dl +0.25mg/dl +0.15mg/dlBuBc 3.5mg/dl Bc/2.8mg/dl +0.25mg/dl +0.23mg/dl SGOT/AST (test code = AST) 18 UNITS/L 17-59 N SGPT/ALT (test code = ALT) 10 UNITS/L 0-49 N ALKALINE PHOSPHATASE (test code = ALKP) 56 UNITS/L 38-126 N NT PRO-BRAIN NATRIURETIC [id number] 17:48:00* Test Item Value Reference Range Interpretation Comme nts NT PRO-BRAIN NATRIURETIC PEP TI (test code = PROBNP) 728.0 pg/mL 0-450 H [id number] 17:48:00* Test Item Value Reference Range Interpretation Comme nts TROPONIN-I (test code = TROPI) < 0.012 NG/ML 0.012-0.033 L CBC W/AUTO [id number] 17:19:00* Test Item Value Reference Range Interpretation Comme nts WHITE BLOOD CELL (test code = WBC) 7.4 K/MM3 3.8-9.8 N RED BLOOD CELL (test code = RBC) 3.45 M/MM3 3.95-5.67 L HEMOGLOBIN (test code = HGB) 12.3 G/DL 12.4-16.7 L HEMATOCRIT (test code = HCT) 37.3 % 35.9-49.5 N MEAN CELL VOLUME (test code = MCV) 108 fL 81.7-96.1 H MEAN CELL HGB (test code = MCH) 35.7 pg 27.6-33.2 H MEAN CELL HGB CONCETRATION (test code = MCHC) 33.0 % 32.9-35.5 N RED CELL DISTRIBUTION WIDTH (test code = RDW) 12.2 % 12.1-15.2 N PLATELET COUNT (test code = PLT) 169 K/MM3 129-368 N MEAN PLATELET VOLUME (test c ode = MPV) 9.4 fl 7.4-10.4 N NEUTROPHIL % (test code = NT%) 59.8 % 43-75 N IMMATURE GRANULOCYTE % (test code = IG%) 0.1 % 0.0-2.0 N LYMPHOCYTE % (test code = LY%) 26.6 % 14-44 N MONOCYTE % (test code = MO%) 9.8 % 4-13 N EOSINOPHIL % (test code = EO%) 3.0 % 0-6 N BASOPHIL % (test code = BA%) 0.7 % 0-2 N NUCLEATED RBC % (test code = NRBC%) 0.0 % 0-1.0 N NEUTROPHIL # (test code = NT#) 4.45 K/mm3 2.0-7.6 N IMMATURE GRANULOCYTE # (test code = IG#) 0.01 x10 3/uL 0-0.03 N LYMPHOCYTE # (test code = LY#) 1.98 K/mm3 1.0-3.8 N MONOCYTE # (test code = MO#) 0.73 K/mm3 0.1-0.8 N EOSINOPHIL # (test code = EO#) 0.22 K/mm3 0.0-0.2 H BASOPHIL # (test code = BA#) 0.05 K/mm3 0.0-0.2 N NUCLEATED RBC # (test code = NRBC#) 0.00 K/mm3 0.0-0.1 N Notes Date/Time Note Provider Source 2023-08-26 11:41:00 [id number] [facility] ([facility]) Cardiothoracic Surg. Prog NoteREPORT #: [id number] REPORT STATUS: Signed DATE: 08/26/23 TIME: 114 PATIENT: CHARLIE HART UNIT #: [id number] #: [id number] ROOM #: [facility] BED: A : 35 AGE: 88 SEX: M ATTEND: Tony Gautam MD ADM AUTHOR: Rosie Starr ATTENTION EDITS and/or ADDENDA must be made in Patient Keeper for this note. Edits and ammendments created in [facility] are not visible in Patient Keeper or the legal medical record (HPF). -- ASSESSMENT AND PLAN -- HOSPITAL COURSE TO DATE:08/09: [facility] @ [facility] by Dr. Celis + CAD. Transfer from [place] forconsideration of CABG.08/13: CABG x 3 (STANLEY-LAD, SVG-ramus, SVG-OM1) by Dr. Gil: Atrial lead extraction and new atrial lead placement by Dr Dilshad Strong08/19: RV lead revision and upgrade to BiV pacemaker by Dr. Strong08/20: Transfer to [facility]. GENERAL ASSESSMENT:Patient is an 88 year-old male with symptomatic multi-vessel coronary arterydisease. POD#13 CABG x 3 (STANLEY-LAD, SVG-ramus, SVG-OM1) by Dr. Powell on 08/13. No events overnight. Tolerating all targeted therapy. Incisions are healingwell. Appetite is adequate. No voiding issues - on lasix BID. Pain iswell-controlled. Acute debility - ambulating with PT. Will benefit considerablyfrom rehab. Patient has been accepted by [facility] in [place]. Pendingtransfer. Plan:- Cleared for discharge to [facility] today.- Continue all guideline directed therapy at discharge including Plavix,Eliquis, statin and beta lois.- Follow-up with Dr. Powell once discharged home. PLAN DISCUSSED WITH:Patient seen on AM rounds with Dr. Porat. -- SUBJECTIVE -- PATIENT NARATIVE:No events overnight. Patient resting in bed this morning. [facility]. -- OBJECTIVE -- VITALS (08/25 11:41 - 08/26 11:41):Temperature F: 98.5Temperature C: 36.7 (36.7 - 36.9)Temperature source: Oral Pulse Rate 83 (75 - 104)Respiratory rate: 20 (14 - 28)Blood pressure: 122/76 (87/48 - 132/83)Blood pressure source: Monitor I/Os (08/25 07:00 - 08/26 07:00):Net -175Intake 900Output 1,075 -EXAM- GENERAL: Well developed, well nourished, elderly male in no apparent distress.HEAD: Normocephalic, atraumatic.NECK: No masses, no thyromegaly, no abnormal cervical nodes, trachea midline.CHEST: Grossly normal appearance.LUNGS: Normal respiratory effort.HEART: Regular rate and rhythm. Sternotomy incision and chest tube sites CDI.ABDOMEN: Soft, non-tender, no organomegaly, no masses noted.MUSCULOSKELETAL: No deformity, no scoliosis noted of thoracic or lumbar spine, joint ROM grossly normal, normal gait and station.EXTREMITIES: No clubbing, no cyanosis, no edema. EVH site IDALIA.NEUROLOGICAL: No focal deficits.PULSES: Pulses normal in all extremities.SKIN: Intact without significant lesions, or rashes.PSYCHIATRIC: Alert and oriented to time, person, place. Normal mood and affect, intact judgment and insight. -- DATA -- MEDICATIONS METOPROLOL SUCCINATE 12.5 MG PO DAILYIPRATROPIUM BROMIDE 0.5 MG NEB [id number] 20 MG PO QAMNITROGLYCERIN 0.4 MG SL Q5M PRNONDANSETRON HCL/PF 4 MG IV Q6H PRNmethocarbamoL 500 MG PO TIDKETOTIFEN FUMARATE 1 DROP EACH EYE BID PRNMAG HYDROX/AL HYDROX/SIMETH 30 ML PO Q6H PRNtraMADol HCL 50 MG PO BID (PRN)ATORVASTATIN CALCIUM 80 MG PO BEDTIMEACETAMINOPHEN 650 MG PO Q4H PRNAPIXABAN 5 MG PO BIDAMIODARONE HCL 200 MG PO BIDDEXTROSE 50%-WATER 25 ML IV ASDIR PRNDOCUSATE SODIUM 200 MG PO DAILYclopidogreL 75 MG PO DAILYbisacodyL 10 MG RECTAL ASDIR PRNGLUCAGON 1 MG IM ASDIR PRNFERROUS SULFATE 325 MG PO DAILYCYANOCOBALAMIN 500 MCG PO DAILY -- QUALITY -- -MEDICATIONS- - I attest that the foregoing medication list in the medical record is true,accurate, and complete to the best of my knowledge. -VTE PROPHYLAXIS -GENERAL- Yes TYPE OF VTEEliquis -- ATTESTATION -- CARE ACTIVITIES / CARE COORDINATION: - I have reviewed the history and repeated the dee elements - I have seen and examined this patient - I have reviewed the progress in the clinical course since the lastexamination - I have discussed the patient's condition with other members of the care team Signed in PatientKeeper by Rosie Starr on 08/26/23 at 13:22 Cosigned by JOÃO POWELL MD on 08/27/23 at 11:08 at 1108 at 1108ATTENTION EDITS and/or ADDENDA must be made in Patient Keeper for this note. Edits and ammendments created in [employer] are not visible in Patient Keeper or the legal medical record (HPF). [facility] #: [id number] OF REPORTPRProgress [id number]:41:[id number] ailable for patient [id number]:09:37 [facility] 2023-08-26 10:10:00 [id number] [id number]/[id number]:10:00 [facility] ([facility]) Hospitalist D/C Summary REPORT #: [id number] REPORT STATUS: Signed DATE: 08/26/23 TIME: 1010 PATIENT: CHARLIE HART UNIT #: [id number] #: [id number] ROOM #: [facility]8 BED: A : 35 AGE: 88 SEX: M ATTEND: Tony Gautam MD ADM AUTHOR: Tony Gautam MD ATTENTION EDITS and/or ADDENDA must be made in Patient Keeper for this note. Edits and ammendments created in [employer] are not visible in Patient Keeper or the legal medical record ([facility]). -- PROBLEMS/PROCEDURES -- ADMISSION DATE:08/09/23 ADMITTING DIAGNOSES: - Acute on chronic systolic (congestive) heart failure - Afib - Atherosclerosis of beaver coronary artery without angina pectoris,unspecified whether beaver or transplanted heart - Atrial fibrillation - Atrial pacemaker lead displacement - CAD (coronary artery disease) - Cardiogenic shock - Chest pain, unspecified type - Combined rheumatic disorders of mitral, aortic and tricuspid valves - Coronary artery disease - Coronary artery dissection - HTN (hypertension) - Multiple vessel coronary artery disease - Non-ST elevation (NSTEMI) myocardial infarction - Pacemaker lead malfunction - PAH (pulmonary artery hypertension) DISCHARGE DATE:08/26/23 DISCHARGE DIAGNOSES: - Acute on chronic systolic (congestive) heart failure - Afib - Atherosclerosis of beaver coronary artery without angina pectoris,unspecified whether beaver or transplanted heart - Atrial fibrillation - Atrial pacemaker lead displacement - CAD (coronary artery disease) - Cardiogenic shock - Chest pain, unspecified type - Combined rheumatic disorders of mitral, aortic and tricuspid valves - Coronary artery disease - Coronary artery dissection - HTN (hypertension) - Multiple vessel coronary artery disease - Non-ST elevation (NSTEMI) myocardial infarction - Pacemaker lead malfunction - PAH (pulmonary artery hypertension) -- HOSPITAL COURSE -- HOSPITAL COURSE: This 88-year-old gentleman has a past medical history significant forhypertension, pulmonary hypertension, Nonobstructive coronary artery disease,ischemic cardiomyopathy, with a previous ejection fraction of 40 to 50%,hyperlipidemia, benign prostatic hyperplasia, vitamin B12 deficiency, Permanentpacemaker placement in November 2021. The patient was in his usual state of healthuntil recently when he developed recurrent chest pain, suggestive of angina. Hewas taken to the [place] emergency room on August 05, 2023 where he wasruled in for non-ST segment elevation myocardial infarction. He was started onheparin and transferred to [facility] where he was observed for a coupleof days and improved on medical therapy.Echocardiogram showed apical wall motion abnormalities with preserved leftventricular ejection fraction. As the patient was doing well on medicalmanagement, he was discharged from the other hospital without intervention. Hewas seen by his primary manager front office, Dr Deyvi Celis and admitted forselective coronary angiogram on August 09, 2023 to [facility].This showed multivessel coronary artery disease, LAD 90 to 99% lesion, leftcircumflex proximal 90%, 95% obtuse marginal lesion; Occluded proximal RCA.Left ventricular end-diastolic pressure 12; Left ventricular ejection rdpxkrok64%, severe anteroapical hypokinesis. He has been transferred to [facility] for consideration of CABG by Dr. João Powell. CLINICAL COURSE: 08/10: The patient denies any chest pain or shortness of breath at this time.Denies any headache or dizziness.No nausea vomiting.labs pending.echo at the OSH shows:1. Left ventricle: The cavity size is normal. Wall thickness is normal.Systolic function is normal. The estimated ejection fraction is 50-54%.Regional wall motion abnormalities cannot be excluded. Grade I diastolicdysfunction.2. Atrial septum: No defect or patent foramen ovale is identified. He has been seen by the heart team.Given his multiple comorbidities, coronary intervention is being decided upon,percutaneous versus surgical.Plan of care discussed with the patient and his daughter, Elizabeth, at bedside. 08/11: Repeat echo over here shows:1. Left ventricle: The cavity size is normal. Wall thickness is normal.Systolic function is moderately reduced. The estimated ejection fractionis 35-39%. Wall motion is normal; there are no regional wall motionabnormalities. Grade I diastolic dysfunction.2. Aortic valve: The findings are consistent with moderate to severe stenosis.The mean systolic gradient is 15 mm Hg. The valve area is 0.98 cm 2.3. Mitral valve: The annulus is mildly to moderately calcified.Possible low flow low gradient aortic stenosis. Considerfurther evaluation with dobutamine stress echocardiogram.Patient is being evaluated by the consultants.Patient has expressed that the he would prefer getting surgery if his heartcould be taken care of percutaneously.Await final recommendations. 08/12: No acute events overnight.No chest pain or shortness of breath.After extensive discussions, the final recommendations are for CABG by Dr. Young 08/13: the patient underwent CABG x 3Left internal mammary artery bypass to the left anterior descending coronaryarteryReversed saphenous vein graft to the ramus intermedius coronary arteryReversed saphenous vein graft to the first obtuse marginal coronary arteryby Dr. Powell 08/13/22.Intra-op, patient went into AFib, and blood pressure dropped,so was re-explored, and eventually cardioverted. on 0.03mcg of Epinephrine.Received 2 units of PRBC, and 1 unit of FFP. 08/14: Extubated postoperative day 0.On 2 L of oxygen via nasal cannula.K low, replete. 08/15: All chest tubes removed.IJ removed.On 4 L of oxygen via nasal cannula.Walked about 25 feet with physical therapy.No bowel movement as yet.Plans for right atrial lead revision week of 08/[address] Owens 08/16: Reports that he is feeling well continues to remain on 2 L nasal cannula.S/p NADIRA today. 08/17: Patient was evaluated bedside, reports that he is feeling well. Continuesto remain on oxygen 2 L nasal cannula satting 100%. He is aware of possiblepacemaker lead revision to be done tomorrow. 08/18: underwent Atrial lead extraction and new atrial lead placement by Carlee Strong,On room air.Feels well.Progressing well. 08/19: On 2 L of oxygen via nasal cannula.underwent RV lead revision and upgrade to BiV pacemaker,by Dr Dilshad Strong 08/20: Oral intake is not the best but he is taking supplements.Walked about 30 feet with physical therapy.On 3 L of oxygen via nasal cannula.Transferred to CV IMU for continuity of care. 08/21: On 2 L of oxygen via nasal cannula.No significant chest pain or shortness of breath.Walked about 120 feet with physical therapy. 08/22: On 3 L of oxygen via nasal cannula.Walked 120 feet with physical therapy.Cardiothoracic surgery services have recommended inpatient rehab placement.The patient will definitely benefit from IPR.He was very functional prior to this hospitalization.Insurance company has asked for peer to peer. Precedence suggests that this usually does not translate into acceptance. 08/23: On 2 L of oxygen via nasal cannula.Max assist for activities.Was able to walk with physical therapy.Case management services and I attempted to call for peer to peer 08/22, betweenthe hours of [phone] jumping multiple hoops, we found that the offices were closed.We will try again, on 08/25/2023. 08/24: On 2 L of oxygen via nasal cannula.Eating fair.Walked with physical therapy.He will benefit from inpatient rehab, await insurance approval. 08/25: On 2 L of oxygen via nasal cannula.Worked with physical therapy.Cleared by cardiology and EP services for discharge to the [facility].Insurance has approved [facility] and I anticipate that he will be discharged 08/26. 08/26/2023: The patient is hemodynamically stable and [facility].He will follow-up with his primary physician in 1 to 2 weeks, with Dr. Young in 2 weeks for post CABG follow-up,and with Dr. Dilshad Strong of electrophysiology in 2 to 3 weeks for permanentpacemaker placement follow-up.Adequate instructions have been provided.Prognosis and plan of care was discussed at all stages with the patient and hisfamily members.They verbalized understanding and agreement. FINAL DIAGNOSIS: 1. Recent non-ST segment elevation myocardial infarction, around July.S/p coronary angiogram 08/09 showing multivessel coronary artery disease,not amenable to percutaneous coronary intervention.LAD 90 to 99% lesion, left circumflex proximal 90%, 95% obtuse marginal lesion;Occluded proximal RCA. Left ventricular end-diastolic pressure 12;Left ventricular ejection fraction 40%, severe anteroapical hypokinesis.The patient is being admitted to [facility] for higher level of care.Optimized statin dose, continue aspirin and beta-blockers.the patient underwent CABG x 3Left internal mammary artery bypass to the left anterior descending coronaryarteryReversed saphenous vein graft to the ramus intermedius coronary arteryReversed saphenous vein graft to the first obtuse marginal coronary arteryby Dr. Powell 08/13/22. 2. Hypertension continue metoprolol. 3. Hyperlipidemia. Increased statins to high-dose for now. 4. Pulmonary hypertension 5. Benign prostatic hyperplasia. 6. 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 7. Chronic neck pain. Continue home dose of tramadol. 8. PAF, periop, amiodarone. 9. Lactic acidosis, related to surgery. 10. Acute surgical blood loss anemia.2 units PRBC and 1 unit FFP transfused 08/13. 11. Thrombocytopenia, noncritical. 12. Acute debility.PT following.Will benefit from IPR placement. 13. S/P Atrial lead extraction and new atrial lead placement by Dr Dilshad Strong08/18/23.13a. s/p RV lead revision and upgrade to BiV pacemaker, 08/19/[address] Casanova. 14. Atelectasis. Incentive spirometry. -- DISCHARGE MEDICATIONS -- ALLERGIES:No Known Allergies (UNKNOWN - Allergy) DISCHARGE MEDICATIONS:Please refer to Discharge Medication list for a complete list of dischargemedicationsAcetaminophen Tab (Tylenol Tab) 650MG PO Q4H PRN temp amp;gt; 38.5 cAlaway 0.025 % (0.035 %) eye drops (ketotifen fumarate) 1DROP Each Eye BID PRN itchy eyeAmiodarone Tab (Cordarone Tab) 200MG PO BIDApixaban Tab (Eliquis Tab) 5MG PO BIDAtorvastatin Tab (Lipitor Tab) 80MG PO BEDTIMEClopidogrel Tab (Plavix Tab) 75 MG PO DAILYCyanocobalamin Tab (Vitamin B-12 Tab) 500MCG PO DAILYDocusate Sodium Cap (Colace Cap) 200MG PO DAILYFerrous Sulfate Tab (Feosol Tab) 325MG PO DAILYFurosemide Tab (Lasix Tab) 20MG PO QAMIpratropium Neb Soln (Atrovent Neb Soln) 0.5MG Neb ZHI1BYxg/Al/Simeth Oral Liquid (Maalox Max Oral Liquid) 30ML PO Q6H PRNindigestion/heartburnMethocarbamol Tab (Robaxin Tab) 500MG PO TIDMetoprolol Succinate XL Tab (Toprol XL Tab) 12.5MG PO DAILYPreserVision AREDS 7,160 unit-113 mg-100 unit tablet (vitaminsA,C,X-uzai-ammtyc) 1 TAB PO DAILY for home medication traMADol Tab (Ultram Tab) 50 MG PO BID PRN pain scale 7-10 -- DISCHARGE INSTRUCTIONS -- ADMISSION ORDERS:Discharge Follow Up Details:Order number: [id number]: ADT - Admission OrdersOrder status: Transmitted Details:Consulting provider 1: CORY.01:Dilshad Strong MDConsulting provider 1: .Consult follow up timeframe: In 2-3 weeksConsult special instructions: PPM follow up Ordered by: Tony Gautam MD Aug 25, 2023 10:39pmEntered by: Tony Gautam MD Service date: Aug 25, 2023 10:38pm PK DISCHARGE ORDERS:Discharge Ronald w/instruction Details:Order number: [id number]: PKDC - PK DISCHARGE ORDERSOrder status: Transmitted Details:Discharge Parameters: Meds given Discharged by ambulance to [facility] inpatient rehab, [facility], on 08/26/2023.Meds to be Given:(Enter specifics) scheduled medsDischarge order with parameter: YesNotify attending when discharge parameter met: YesDischarge to: Home/Self CareDiet: CardiacActivity: As Tolerated No Lifting gt;10lbs No Strenuous Activity Sternal Precautions PPM precautionsPCP: DABSA:Deyvi Celis MD CardiologyPCP follow up timeframe: In 1-2 weeksNotify PCP of Signs/Symptoms: Chest Pain Moderate/large bleeding Shortness of breath Temp. 101 or greaterWound/dressing care: Clean wound daily OK to shower tomorrowEquipment/supplies: Oxygen therapyWeight Monitoring: DailyAdditional instructions: Discharged by ambulance to [facility] rehab, [facility], on 08/26/2023. meds per med recAttending Physician: ROXANA:João Powell MDAttending physician follow up timeframe: 2 weeksAttending physician special instructions: post CABG follow upAdditional Discharge Routines: PCP Follow-Up Attending Follow-Up [employer] Follow-Up Ordered by: Tony Gautam MD Aug 25, 2023 10:39pmEntered by: Tony Gautam MD Service date: Aug 25, 2023 10:38pm Details:Order number: [id number]: PKDC - PK DISCHARGE ORDERSOrder status: Transmitted Details:Does patient have any of the following conditions at discharge? CABGStatin at Discharge: YesEJ Fraction: gt;40%Aspirin at Discharge: No - On Apixaban/EliquisBeta-Lois at Discharge: YesAntiplatelet/P2Y12 at Discharge: YesAldosterone Antagonist at Discharge: No - Not Applicable Ordered by: Tony Gautam MD Aug 25, 2023 10:39pmEntered by: Tony Gautam MD Service date: Aug 25, 2023 10:38pm DC - ALL eCQMS ADDTIONAL DISCHARGE INSTRUCTIONS:Emergency Instructions: The patient was [facility] or call 911 should their symptoms return or worsen.; -- OBJECTIVE -- VITALS (08/24 22:39 - 08/25 22:39):Temperature C: 36.8 (36.5 - 37.0)Temperature source: OralPulse Rate 99 (77 - 115)Respiratory rate: 20 (14 - 28)Blood pressure: 104/64 (87/48 - 124/72)Blood pressure source: Monitor I/Os (08/24 07:00 - 08/25 07:00):Net -560Intake 540Output 1100 -EXAM- GENERAL: Well developed, well nourished, in no apparent distress.HEAD: Normocephalic, atraumatic.EYES: PERRL, EOM intact, conjunctiva and sclera clear, without nystagmus, lids normal.EARS: markedly diminished hearing. NOSE: No deformity, no discharge, no inflammation, no lesions.MOUTH: Oropharynx without deformities or lesions, normal mucosa..NECK: No masses, no thyromegaly, no abnormal cervical nodes, trachea midline.CHEST: NANCY PPM, bandaged; all CTs removedLUNGS: Clear bilaterally with normal respiratory effort.HEART: RRR; II/ LUIS at LLSBABDOMEN: Soft, non-tender, no organomegaly, no masses noted.MUSCULOSKELETAL: No deformity, no scoliosis noted of thoracic or lumbar spine, joint ROM grossly normal, normal gait and station.EXTREMITIES: No clubbing, no cyanosis, no edema.NEUROLOGICAL: No focal deficits, cranial nerves II-XII grossly intact, normal sensation, normal reflexes, normal coordination, normal muscle strength, normal tone.PULSES: Pulses normal in all extremities. -- DATA -- LABS COMPREHENSIVE METABOLIC PANEL (08/25/23 05:26)SODIUM 138POTASSIUM 4.5CHLORIDE 102CARBON DIOXIDE 32 HGLUCOSE 93BLOOD UREA NITROGEN 20GLOMERULAR FILTRATION RATE >=60 max estimateCREATININE 0.90TOTAL PROTEIN 5.9ALBUMIN 3.2CALCIUM 8.0 LBILIRUBIN TOTAL 2.0 HSGOT/AST 24SGPT/ALT 12ALKALINE PHOSPHATASE 72.0 CBC W/AUTO DIFF (08/25/23 05:26)WHITE BLOOD CELL 12.4H HRED BLOOD CELL 2.77 LHEMOGLOBIN 8.6L LHEMATOCRIT 27.3L LMEAN CELL VOLUME 98.6 HMEAN CELL HGB 31.0MEAN CELL HGB CONCENTRATION 31.5 LRED CELL DISTRIBUTION WIDTH 21.7 HPLATELET COUNT 339MEAN PLATELET VOLUME 9.6NEUTROPHIL % 80.3 HLYMPHOCYTE % 8.0 LMONOCYTE % 8.1EOSINOPHIL % 2.6BASOPHIL % 0.4NEUTROPHIL # 9.98 HLYMPHOCYTE # 0.99 LMONOCYTE # 1.00 H EOSINOPHIL # 0.32BASOPHIL # 0.05 TEST RESULTS XR CHEST 1 V (08/22/23 06:55) XR CHEST 1 VEXAM: Chest one view. Location: A1 HISTORY: S/p CABG COMPARISON: 08/20/2023 FINDINGS: Airspace opacities are present at bilateral lung bases, slightlyimproved. There are small layering bilateral pleural effusions.Cardiac silhouette is mildly enlarged. Pacemaker generator and leadsare redemonstrated. Sternotomy wires and mediastinal surgical clipsare stable. There is no pneumothorax. There is diffuse osteopenia. There is right hip hemiarthroplasty. IMPRESSION: Slight improvement in layering bilateral pleural effusions andbibasilar atelectasis/consolidation. Reported by: JACK VILLAGRAN M.D.Signed by: JACK VILLAGRAN M.D. -- QUALITY -- -MEDICATIONS- - I attest that the foregoing medication list in the medical record is true,accurate, and complete to the best of my knowledge. -- ATTESTATION -- TIME SPENT ON PATIENT CARE: - Direct 35 minutes - > 50% of time spent on Counseling/Care Coordination CARE ACTIVITIES / CARE COORDINATION: - I have reviewed the history and repeated the dee elements - I have seen and examined this patient - I have reviewed the progress in the clinical course since the lastexamination - I have discussed the patient's condition with other members of the care team Signed in PatientKeeper by Tony Gautam MD on 09/16/23 at 23:18 at 2318ATTENTION EDITS and/or ADDENDA must be made in Patient Keeper for this note. Edits and ammendments created in [facility] are not visible in Patient Keeper or the legal medical record (HPF). [facility] #: [id number] OF REPORTDSDischarge [id number]:10:00P.[id number] VAvailable for patient [id number]:19:11 [facility] 2023-08-26 09:10:00 [id number] /[id number] [id number]+lQuq4KCxd6caNyOQI7JI8932-66-64E90:10:00 [facility] ([facility]) Cardiology Progress Notes REPORT #: [id number] REPORT STATUS: Signed DATE: 08/26/23 TIME: 909 PATIENT: CHARLIE HART UNIT #: [id number] #: [id number] ROOM #: P.0418 BED: A : 35 AGE: 88 SEX: M ATTEND: Tony Gautam MD ADM AUTHOR: Annette Chow ATTENTION EDITS and/or ADDENDA must be made in Patient Keeper for this note. Edits and ammendments created in [facility] are not visible in Patient Keeper or the legal medical record (HPF). -- CO-SIGNATURE -- COMMENTS:The patient was seen on rounds with PHILIPPE Prabhakar. The patient has no complaints Examination demonstrates normal heart sounds and clear lung stanley. Impression and plan The patient is an 88-year-old gentleman with coronary artery disease and an EFbetween 40 to 50% from the outside records with anterior hypokinesis who wastransferred here for possible bypass surgery.Status post three-vessel bypass surgery.Continue aspirin and atorvastatin. On low-dose and dual antiplatelet therapy.Continue amiodarone drip and transition to oral amiodarone 200 mg twice daily.Continue with aggressive occupational and physical therapy.Echocardiogram is normal.Awaiting inpatient placement Signed in PatientKeeper by GINO DENG MD on 09/06/23 at 14:04 -- ASSESSMENT AND PLAN -- PROBLEMS: 1: Multiple vessel coronary artery diseaseA/P: The patient is an 88-year-old gentleman (patient of Dr. Deyvi Celis) hasa PMHx of hypertension, pulmonary hypertension, NICMP, HFrEF (EF 40 to 50%),hyperlipidemia, BPH, vitamin B12 deficiency, PPM placement (11/2021). Hedeveloped recurrent chest pain, suggestive of angina, and presented at [facility] emergency room on 08/05/22 for further evaluation and management. He wasruled in NSTEMI, started on heparin drip and transferred to [facility]. He wasobserved and pain resolved on medical therapy (per records). He was discharged.He was seen by cardiology services (Dr. Celis) as outpatient and underwentelective coronary angiogram on 08/09/22 at [facility] and showed multi-vesselcoronary artery disease, LAD (90 to 99% lesion),LCx proximal 90%, 95% obtusemarginal lesion, RCA (occluded proximal), LVEDP 12, LVEF 40%, severe anteroapical hypokinesis. [facility] was [facility] for considerationof CABG by Dr. João Powell. He underwent CABG x 3V (STANLEY-LAD, rSVG-RI, rSVG-OM1)on 08/13/[address] Powell. He was transferred to CVICU for post-op care andextubated on POD0. On 08/17, doppler of left upper extremity showed partiallyocclusive deep venous thrombosis in the left subclavian vein. On 08/18, heunderwent atrial lead extraction and new atrial lead placement by Dr. Strong. On08/19, he underwent RV lead removal and upgrade to BiV from Dual Chamber PPM byDr. Strong. He is in CVIMU now. - S/p CABG x 3V on 08/13- On DAPT with Eliquis (partially occlusive DVT in the left subclavian vein)and clopidogrel- On atorvastatin 80mg daily and metoprolol XL 12.5mg daily- Continue PO furosemide 20mg daily- On PT/OT/IS- Case management following for placement, IPR vs. SNF, accepted at [facility]- Cleared by CV surgery to be discharged when accepted to [facility]. He willfollow-up with Dr. Powell and his manager front office- From cardiology standpoint the patient is stable and cleared to be dischargedwhen cleared by consultants and accepted to [facility]/SNF -- SUBJECTIVE -- CHIEF COMPLAINT:Severe multi-vessel coronary artery disease PATIENT NARRATIVE:Sitting in bed. He denies complaints today. Seen by CV surgery today.Awaiting transfer to IR. No acute events overnight. -REVIEW OF SYSTEMS- GENERAL: Negative for fever, malaise, fatigue.EYES: Negative for blurry vision. No diplopia.EARS/NOSE/THROAT: Negative for sore throat. No otalgia. No rhinorrhea.RESPIRATORY: Negative for dyspnea or wheeze. No cough.CARDIOVASCULAR: Negative for chest pain or palpitations. No extremity swelling.GASTROINTESTINAL: Negative for abdominal pain or nausea. No emesis. No diarrhea.GENITOURINARY: Negative for dysuria, frequency, or urgency. No gross hematuria.MUSCULOSKELETAL: Negative for joint stiffness, pain, or arthralgias.SKIN: Negative for rashes. No pruritus.NEUROLOGICAL: Negative for headache. No vertigo. Denies paresthesias.PSYCHIATRIC: Negative for specific complaints. -- OBJECTIVE -- VITALS (08/25 07:22 - 08/26 07:22):Temperature F: 98.5Temperature C: 36.7 (36.7 - 36.9)Temperature source: OralPulse Rate 96 (75 - 115)Respiratory rate: 15 (14 - 28)Blood pressure: 132/59 (87/48 - 132/72)Blood pressure source: Monitor I/Os (08/25 07:00 - 08/26 07:00):Net -175Intake 900Output 1,075 -EXAM- OTHER: Constitutional: Well developed, well nourished patient, in no acute distress. Derm/Integumentary: Warm and dry with no rashes, sores, or lesions. HEENT: Eyes-sclera clear and white, symmetrical w/ no lag. ENT - Palate and gums pink, mucosa moist, no pallor/cyanosis. Neck: supple with no masses, no thyromegaly, No JVD. Respiratory: Clear to auscultation. Chest: Median sternotomy intact without drainage Heart: S1S2+, Regular Rate and Rhythm, No murmurs, rubs, or gallops. Gastrointestinal: + Bowel Sounds all quadrants. Soft, nontender with no masses or organomegaly; No HJR. Musculoskeletal: Equal strength in all extremities. No weakness. Neurology: Alert and oriented X 3. Calm, cooperative affect. No focal deficits. Extremities: + peripheral pulses. No clubbing, cyanosis. No lower extremity edema. -- DATA -- MEDICATIONS METOPROLOL SUCCINATE 12.5 MG PO DAILYIPRATROPIUM BROMIDE 0.5 MG NEB [id number] 20 MG PO QAMNITROGLYCERIN 0.4 MG SL Q5M PRNONDANSETRON HCL/PF 4 MG IV Q6H PRNmethocarbamoL 500 MG PO TIDKETOTIFEN FUMARATE 1 DROP EACH EYE BID PRNMAG HYDROX/AL HYDROX/SIMETH 30 ML PO Q6H PRNtraMADol HCL 50 MG PO BID (PRN)ATORVASTATIN CALCIUM 80 MG PO BEDTIMEACETAMINOPHEN 650 MG PO Q4H PRNAPIXABAN 5 MG PO BIDAMIODARONE HCL 200 MG PO BIDDEXTROSE 50%-WATER 25 ML IV ASDIR PRNDOCUSATE SODIUM 200 MG PO DAILYclopidogreL 75 MG PO DAILYbisacodyL 10 MG RECTAL ASDIR PRNGLUCAGON 1 MG IM ASDIR PRNFERROUS SULFATE 325 MG PO DAILYCYANOCOBALAMIN 500 MCG PO DAILY -- ATTESTATION -- CARE ACTIVITIES / CARE COORDINATION: - I have reviewed the history and repeated the dee elements - I have seen and examined this patient - I have reviewed the progress in the clinical course since the lastexamination - I have discussed the patient's condition with other members of the care team ADDITIONAL DETAIL:Plan of care discussed with Dr. Gino Deng Signed in PatientKeeper by ANNETTE CHOW on 08/26/23 at 13:10 Cosigned by GINO DENG MD on 09/06/23 at 14:04 at 1404 at 1404ATTENTION EDITS and/or ADDENDA must be made in Patient Keeper for this note. Edits and ammendments created in [facility] are not visible in Patient Keeper or the legal medical record (HPF). RPT #: [id number] OF REPORTPRProgress [id number]:10:00P.[id number] ailable for patient jagtRBYLEZTSBRCIOV4548-01-13V86:14:03 [facility] 2023-08-25 22:39:00 [id number] [id number]3443-52-55P47:39:00 [facility] ([facility]) Med Order Sheet REPORT #: [id number] REPORT STATUS: Signed DATE: 08/25/23 TIME: 2238 PATIENT: CHARLIE HART UNIT #: [id number] #: [id number] ROOM #: P.0418 BED: A : 35 AGE: 88 SEX: M ATTEND: Tony Gautam MD ADM AUTHOR: Tony Gautam MD ATTENTION EDITS and/or ADDENDA must be made in Patient Keeper for this note. Edits and ammendments created in [facility] are not visible in Patient Keeper or the legal medical record (HPF). Discharge Medication Reconciliation DISCHARGE MEDICATION LISTNew: PreserVision AREDS 7,160 unit-113 mg-100 unit tablet (vitaminsA,C,C-rdzb-kayyyc) Dose: 1 TAB PO DAILY for home medication Atorvastatin Tab (Lipitor Tab) Dose: 80MG PO BEDTIMEClopidogrel Tab (Plavix Tab) Dose: 75 MG PO DAILYMetoprolol Succinate XL Tab (Toprol XL Tab) Dose: 12.5MG PO DAILYAlaway 0.025 % (0.035 %) eye drops (ketotifen fumarate) Dose: 1DROP Each Eye BID PRN itchy eyetraMADol Tab (Ultram Tab) Dose: 50 MG PO BID PRN pain scale 7-10Acetaminophen Tab (Tylenol Tab) Dose: 650MG PO Q4H PRN temp > 38.5 cAmiodarone Tab (Cordarone Tab) Dose: 200MG PO BIDApixaban Tab (Eliquis Tab) Dose: 5MG PO BIDCyanocobalamin Tab (Vitamin B-12 Tab) Dose: 500MCG PO DAILYDocusate Sodium Cap (Colace Cap) Dose: 200MG PO DAILYFerrous Sulfate Tab (Feosol Tab) Dose: 325MG PO DAILYFurosemide Tab (Lasix Tab) Dose: 20MG PO QAMIpratropium Neb Soln (Atrovent Neb Soln) Dose: 0.5MG Neb JVQ0BGws/Al/Simeth Oral Liquid (Maalox Max Oral Liquid) Dose: 30ML PO Q6H PRN indigestion/heartburnMethocarbamol Tab (Robaxin Tab) Dose: 500MG PO TID STOPPED HOME MEDICATIONSDc'd: aspirin chewable tablet 81 MG PO DAILYDc'd: Fosamax tablet (alendronate) 70 MG PO Q7DDc'd: Isosorbide Mononitrate Tab.ER (Imdur Tab) 30 MG PO DAILYDc'd: traMADol Tab.ER (NF) (Ultram Tab.ER (NF)) 150 MG PO DAILY STOPPED HOSPITAL MEDICATIONSDc'd: Nitroglycerin SL Tab (Nitrostat SL Tab) 0.4MG SL Q5M PRN chestpainDc'd: Bisacodyl Supp (Dulcolax Supp) 10MG Rectal ASDIR X 1 doses PRN nobm pod3 2100Dc'd: Dextrose 50% 50 ml Syringe (D50W 50 ml Syringe) 25ML IVASDIR PRN hypoglycemiaDc'd: Glucagon Inj (Glucagon Inj) 1MG IM ASDIR PRNhypoglycemia if no iv/enteralDc'd: Ondansetron Inj (Zofran Inj) 4MG IV Q6H PRN nausea and vomiting at 8779ATTENTION EDITS and/or ADDENDA must be made in Patient Keeper for this note. Edits and ammendments created in [facility] are not visible in Patient Keeper or the legal medical record (HPF). [facility] #: [id number] OF REPORTCLClinical [id number]:39:00P.[id number] ailable for patient [id number]:39:29 [facility] 2023-08-25 22:11:00 [id number]/D5PBro/ Lv3z2EeIKb2AeuoQ407OHn+BiCi0022-61-89H71:11:00 [facility] ([facility]) Hospitalist Progress Note REPORT #: [id number] REPORT STATUS: Signed DATE: 08/25/23 TIME: 2210 PATIENT: CHARLIE HART UNIT #: [id number] #: [id number] ROOM #: P.0418 BED: A : 35 AGE: 88 SEX: M ATTEND: Tnoy Gautam MD ADM AUTHOR: Tony Gautam MD ATTENTION EDITS and/or ADDENDA must be made in Patient Keeper for this note. Edits and ammendments created in [employer] are not visible in Patient Keeper or the legal medical record (HPF). -- ASSESSMENT AND PLAN -- GENERAL ASSESSMENT: ASSESSMENT AND PLAN: 1. Recent non-ST segment elevation myocardial infarction, around July.S/p coronary angiogram 08/09 showing multivessel coronary artery disease,not amenable to percutaneous coronary intervention.LAD 90 to 99% lesion, left circumflex proximal 90%, 95% obtuse marginal lesion;Occluded proximal RCA. Left ventricular end-diastolic pressure 12;Left ventricular ejection fraction 40%, severe anteroapical hypokinesis.The patient is being admitted to [facility] for higher level of care.Optimized statin dose, continue aspirin and beta-blockers.the patient underwent CABG x 3Left internal mammary artery bypass to the left anterior descending coronaryarteryReversed saphenous vein graft to the ramus intermedius coronary arteryReversed saphenous vein graft to the first obtuse marginal coronary arteryby Dr. Powell 08/13/22. 2. Hypertension continue metoprolol. 3. Hyperlipidemia. Increased statins to high-dose for now. 4. Pulmonary hypertension 5. Benign prostatic hyperplasia. 6. 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 7. Chronic neck pain. Continue home dose of tramadol. 8. PAF, periop, amiodarone. 9. Lactic acidosis, related to surgery. 10. Acute surgical blood loss anemia.2 units PRBC and 1 unit FFP transfused 08/13. 11. Thrombocytopenia, noncritical. 12. Acute debility.PT following.Will benefit from IPR placement. 13. S/P Atrial lead extraction and new atrial lead placement by Dr Dilshad Strong08/18/23.13a. s/p RV lead revision and upgrade to BiV pacemaker, 08/19/[address] Casanova. ADDITIONAL COMMENTS:s/p CABG x 3, by Dr. João Powell 08/13/23.s/p Atrial lead extraction and new atrial lead placement 08/18/23s/p RV lead revision and upgrade to BiV pacemaker, 08/19/[address] Dilshad Bowmanurance has approved IPR, and the patient will be discharged to [facility] on 08/26/2023. -- SUBJECTIVE -- HPI: This 88-year-old gentleman has a past medical history significant forhypertension, pulmonary hypertension, Nonobstructive coronary artery disease,ischemic cardiomyopathy, with a previous ejection fraction of 40 to 50%,hyperlipidemia, benign prostatic hyperplasia, vitamin B12 deficiency, Permanentpacemaker placement in November 2021. The patient was in his usual state of healthuntil recently when he developed recurrent chest pain, suggestive of angina. Hewas taken to the [place] emergency room on August 05, 2023 where he wasruled in for non-ST segment elevation myocardial infarction. He was started onheparin and transferred to [facility] where he was observed for a coupleof days and improved on medical therapy.Echocardiogram showed apical wall motion abnormalities with preserved leftventricular ejection fraction. As the patient was doing well on medicalmanagement, he was discharged from the other hospital without intervention. Hewas seen by his primary manager front office, Dr Deyvi Celis and admitted forselective coronary angiogram on August 09, 2023 to [facility].This showed multivessel coronary artery disease, LAD 90 to 99% lesion, leftcircumflex proximal 90%, 95% obtuse marginal lesion; Occluded proximal RCA.Left ventricular end-diastolic pressure 12; Left ventricular ejection mzrmpajp32%, severe anteroapical hypokinesis. He has been transferred to [facility] for consideration of CABG by Dr. João Powell. PATIENT NARRATIVE: 08/10: The patient denies any chest pain or shortness of breath at this time.Denies any headache or dizziness.No nausea vomiting.labs pending.echo at the OSH shows:1. Left ventricle: The cavity size is normal. Wall thickness is normal.Systolic function is normal. The estimated ejection fraction is 50-54%.Regional wall motion abnormalities cannot be excluded. Grade I diastolicdysfunction.2. Atrial septum: No defect or patent foramen ovale is identified. He has been seen by the heart team.Given his multiple comorbidities, coronary intervention is being decided upon,percutaneous versus surgical.Plan of care discussed with the patient and his daughter, Elizabeth, at bedside. 08/11: Repeat echo over here shows:1. Left ventricle: The cavity size is normal. Wall thickness is normal.Systolic function is moderately reduced. The estimated ejection fractionis 35-39%. Wall motion is normal; there are no regional wall motionabnormalities. Grade I diastolic dysfunction.2. Aortic valve: The findings are consistent with moderate to severe stenosis.The mean systolic gradient is 15 mm Hg. The valve area is 0.98 cm 2.3. Mitral valve: The annulus is mildly to moderately calcified.Possible low flow low gradient aortic stenosis. Considerfurther evaluation with dobutamine stress echocardiogram.Patient is being evaluated by the consultants.Patient has expressed that the he would prefer getting surgery if his heartcould be taken care of percutaneously.Await final recommendations. 08/12: No acute events overnight.No chest pain or shortness of breath.After extensive discussions, the final recommendations are for CABG by Dr. Young 08/13: the patient underwent CABG x 3Left internal mammary artery bypass to the left anterior descending coronaryarteryReversed saphenous vein graft to the ramus intermedius coronary arteryReversed saphenous vein graft to the first obtuse marginal coronary arteryby Dr. Powell 08/13/22.Intra-op, patient went into AFib, and blood pressure dropped,so was re-explored, and eventually cardioverted. on 0.03mcg of Epinephrine.Received 2 units of PRBC, and 1 unit of FFP. 08/14: Extubated postoperative day 0.On 2 L of oxygen via nasal cannula.K low, replete. 08/15: All chest tubes removed.IJ removed.On 4 L of oxygen via nasal cannula.Walked about 25 feet with physical therapy.No bowel movement as yet.Plans for right atrial lead revision week of 08/[address] Owens 08/16: Reports that he is feeling well continues to remain on 2 L nasal cannula.S/p NADIRA today. 08/17: Patient was evaluated bedside, reports that he is feeling well. Continuesto remain on oxygen 2 L nasal cannula satting 100%. He is aware of possiblepacemaker lead revision to be done tomorrow. 08/18: underwent Atrial lead extraction and new atrial lead placement by Carlee Strong,On room air.Feels well.Progressing well. 08/19: On 2 L of oxygen via nasal cannula.underwent RV lead revision and upgrade to BiV pacemaker,by Dr Dilshad Strong 08/20: Oral intake is not the best but he is taking supplements.Walked about 30 feet with physical therapy.On 3 L of oxygen via nasal cannula.Transferred to [facility] for continuity of care. 08/21: On 2 L of oxygen via nasal cannula.No significant chest pain or shortness of breath.Walked about 120 feet with physical therapy. 08/22: On 3 L of oxygen via nasal cannula.Walked 120 feet with physical therapy.Cardiothoracic surgery services have recommended inpatient rehab placement.The patient will definitely benefit from IPR.He was very functional prior to this hospitalization.Insurance [employer] has asked for peer to peer.Precedence suggests that this usually does not translate into acceptance. 08/23: On 2 L of oxygen via nasal cannula.Max assist for activities.Was able to walk with physical therapy.Case management services and I attempted to call for peer to peer 08/22, betweenthe hours of [phone] jumping multiple hoops, we found that the offices were closed.We will try again, on 08/25/2023. 08/24: On 2 L of oxygen via nasal cannula.Eating fair.Walked with physical therapy.He will benefit from inpatient rehab, await insurance approval. 08/25: On 2 L of oxygen via nasal cannula.Worked with physical therapy.Cleared by cardiology and EP services for discharge to the [facility].Insurance has approved [facility] and I anticipate that he will be discharged 08/26. -REVIEW OF SYSTEMS- GENERAL: as above -- OBJECTIVE -- VITALS (08/24 22:11 - 08/25 22:11):Temperature C: 36.8 (36.5 - 37.0)Temperature source: OralPulse Rate 99 (77 - 115)Respiratory rate: 18 (14 - 28)Blood pressure: 87/48 (87/48 - 124/72)Blood pressure source: Monitor I/Os (08/24 07:00 - 08/25 07:00):Net -560Intake 540Output 1,100 -EXAM- GENERAL: Well developed, well nourished, in no apparent distress.HEAD: Normocephalic, atraumatic.EYES: PERRL, EOM intact, conjunctiva and sclera clear, without nystagmus, lids normal.EARS: markedly diminished hearing.NOSE: No deformity, no discharge, no inflammation, no lesions.MOUTH: Oropharynx without deformities or lesions, normal mucosa..NECK: No masses, no thyromegaly, no abnormal cervical nodes, trachea midline.CHEST: NANCY PPM, bandaged; all CTs removedLUNGS: Clear bilaterally with normal respiratory effort.HEART: RRR; II/ LUIS at LLSBABDOMEN: Soft, non-tender, no organomegaly, no masses noted.MUSCULOSKELETAL: No deformity, no scoliosis noted of thoracic or lumbar spine, joint ROM grossly normal, normal gait and station.EXTREMITIES: No clubbing, no cyanosis, no edema.NEUROLOGICAL: No focal deficits, cranial nerves II-XII grossly intact, normal sensation, normal reflexes, normal coordination, normal muscle strength, normal tone.PULSES: Pulses normal in all extremities. -- DATA -- MEDICATIONS METOPROLOL SUCCINATE 12.5 MG PO DAILYIPRATROPIUM BROMIDE 0.5 MG NEB [id number] 20 MG PO QAMNITROGLYCERIN 0.4 MG SL Q5M PRNONDANSETRON HCL/PF 4 MG IV Q6H PRNmethocarbamoL 500 MG PO TIDKETOTIFEN FUMARATE 1 DROP EACH EYE BID PRNMAG HYDROX/AL HYDROX/SIMETH 30 ML PO Q6H PRNtraMADol HCL 50 MG PO BID (PRN)ATORVASTATIN CALCIUM 80 MG PO BEDTIMEACETAMINOPHEN 650 MG PO Q4H PRNAPIXABAN 5 MG PO BIDAMIODARONE HCL 200 MG PO BIDDEXTROSE 50%-WATER 25 ML IV ASDIR PRNDOCUSATE SODIUM 200 MG PO DAILYclopidogreL 75 MG PO DAILYbisacodyL 10 MG RECTAL ASDIR PRNGLUCAGON 1 MG IM ASDIR PRNFERROUS SULFATE 325 MG PO DAILYCYANOCOBALAMIN 500 MCG PO DAILY LABS COMPREHENSIVE METABOLIC PANEL (08/25/23 05:26)SODIUM 138POTASSIUM 4.5CHLORIDE 102CARBON DIOXIDE 32 H GLUCOSE 93BLOOD UREA NITROGEN 20GLOMERULAR FILTRATION RATE >=60 max estimateCREATININE 0.90TOTAL PROTEIN 5.9ALBUMIN 3.2CALCIUM 8.0 LBILIRUBIN TOTAL 2.0 HSGOT/AST 24SGPT/ALT 12ALKALINE PHOSPHATASE 72.0 CBC W/AUTO DIFF (08/25/23 05:26)WHITE BLOOD CELL 12.4H HRED BLOOD CELL 2.77 LHEMOGLOBIN 8.6L LHEMATOCRIT 27.3L LMEAN CELL VOLUME 98.6 HMEAN CELL HGB 31.0MEAN CELL HGB CONCENTRATION 31.5 LRED CELL DISTRIBUTION WIDTH 21.7 HPLATELET COUNT 339MEAN PLATELET VOLUME 9.6NEUTROPHIL % 80.3 HLYMPHOCYTE % 8.0 LMONOCYTE % 8.1EOSINOPHIL % 2.6BASOPHIL % 0.4NEUTROPHIL # 9.98 HLYMPHOCYTE # 0.99 LMONOCYTE # 1.00 HEOSINOPHIL # 0.32BASOPHIL # 0.05 -- QUALITY -- -MEDICATIONS- - I attest that the foregoing medication list in the medical record is true,accurate, and complete to the best of my knowledge. -- ATTESTATION -- CARE ACTIVITIES / CARE COORDINATION: - I have reviewed the history and repeated the dee elements - I have seen and examined this patient - I have reviewed the progress in the clinical course since the lastexamination - I have discussed the patient's condition with other members of the care team Signed in PatientKeeper by Tony Gautam MD on 08/25/23 at 22:15 at 2215ATTENTION EDITS and/or ADDENDA must be made in Patient Keeper for this note. Edits and ammendments created in [employer] are not visible in Patient Keeper or the legal medical record (HPF). RPT #: [id number] OF REPORTPRProgress [id number]:11:00P.[id number] ailable for patient biriUBBVFKFWNGDOJV3951-13-92S19:15:58 [facility] 2023-08-25 11:21:00 [id number]/[id number] QoJmrqoeHxmgYBRGrQAaIOLqiMy3979-99-22C89:21:00 [facility] ([facility]) Cardiology Progress Notes REPORT #: [id number] REPORT STATUS: Signed DATE: 08/25/23 TIME: 112 PATIENT: CHARLIE HART UNIT #: [id number] #: [id number] ROOM #: P.0418 BED: A : 35 AGE: 88 SEX: M ATTEND: Tony Gautam MD ADM AUTHOR: Kaleigh Gonzalez ATTENTION EDITS and/or ADDENDA must be made in Patient Keeper for this note. Edits and ammendments created in [employer] are not visible in Patient Keeper or the legal medical record (HPF). -- CO-SIGNATURE -- COMMENTS:Agree with above from PHILIPPE Guardado. I discussed the case with the physicianassistant and agree with the findings and helped develop theplan of care as documented in her note. 88yo man hx CAD s/p ACB with RA lead dislodgement, RV lead malfunciton now s/pBiV PPM BiV PPM-Excellent thresholds, pacing morphology-2 week follow up Dilshad Strong, [facility] [place]rophys[place] Cardiac Arrhythmia Signed in PatientKeeper by DILSHAD STRONG MD on 09/15/23 at 18:04 -- ASSESSMENT AND PLAN -- PROBLEMS: 1: Pacemaker lead malfunctionA/P: - in context of recent ACB x2 on 08/13 w/ Dr Powell, developed RA leadfailure/dislodgment (high atrial capture with dropping leading impedance) onPOD #2- s/p RA lead revision 08/18/23 - Dr Dilshad Strong- wore left arm sling overnight, post op interrogation this AM with stable RAparameters however RV lead unfortunately with higher capture highly suggestiveof RV lead failure- LVEF known approx 40%, has intermittent SSS/bradycardia and Salcedo DC PPM(11/2021 - Dr Celis), LBBB and QRS >120 ms- s/p RV lead revision and BiV upgrade 08/19/23 (with RV LB pacing) - Dr Strong- NO capped or abandoned leads- post op interrogation stable with appropriate parameters/thresholds, AP <1%BiVP >99%- post op CXR with no pneumo- pressure dressing removed, underlying L sided PPM bandage is clean andintact, no swelling or signs of hematoma, infection- Post op ECG reviewed - QRS visually <120 ms- Restrictions: No lifting >15 lb x 1 week, no raising left arm above shoulder for 4 weeks however should still mobilize arm to avoid frozen shoulder- POC w/ Mr Hart is daughter Elizabeth (#[phone]) and available by phone- Educational materials/folder already given- Remote interrogations enrolled with Dr Celis- Can follow up in clinic 2 weeks for incision and device evaluation w/ DrGreet/ScoutNP- Pending placement of SNF vs IPR 2: Acute on chronic systolic (congestive) heart failureA/P: - in context of CAD/ICMP, LVEF approx 40%- s/p recent ACB x3 (08/13/22 - Dr Powell)- c/w optimal tolerated medical therapy per Dr Deng team 3: Atrial fibrillationA/P: - Intra op AF noted during ACB x3 requiring cardioversion- Salcedo DC pacemaker in situ, implanted 11/2021 - Dr Celis- s/p upgrade to BiV system as above- will continue to monitor for AF on telemetry and device- on amiodarone 200 mg po bid- CHADS2-VASC: 5 (HF, HTN, Age 75+ CAD); lifelong OAC- on po eliquis 5 mg po bid, continue -- SUBJECTIVE -- CHIEF COMPLAINT:Upgrade to BiV HPI:Mr. 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 Intra-operativelydeveloped AF and was cardioverted to SR. Now POD 2, bedside Salcedo pacemaker interrogations concerning for high atrialthresholds for capture, 5V concerning for RA lead failure and dislodgment, EPconsulted for RA lead revision. He is extubated w/ family at bedside,participating in some PT. Will coordinate RA lead revision next week. - Echo 08/10/2023: LVEF 35-39%, No WMA, G1DD, LA and RA normal. Mod to severeAS, mild AR. Mild MR. Mild TR. RVSP 35 mmHg. - s/p RA lead revision 08/18 - Dr Strong 08/19/23: Device interrogation this morning with appropriate parameters in RA,however RV lead capture thresholds are elevated prompting RV lead failure,underwent Salcedo upgrade to BiV PPM on 08/19/23 - Dr Strong. 08/20/23: Doing well post upgrade to BiV, post op interrogation with appropriateparameters and AP <1% high BiV pacing >99%, no events overnight- post op interrogation with stable thresholds/capture/parameters, high BiVpacing- notified RN to remove pressure dressing either late (bedtime) tonight ortomorrow AM PATIENT NARRATIVE:- Asleep, laying in bed- In ST, BiV paced rhythm, approx 100s bpm- Stable from EP perspective, L sided PPM incision site w/ bandage is clean andintact, no swelling or signs of hematoma- anticipating placement to SNF vs. IPR -REVIEW OF SYSTEMS- GENERAL: See above -- OBJECTIVE -- VITALS (08/24 11:21 - 08/25 11:21):Temperature C: 36.5 (36.5 - 37.0)Temperature source: OralPulse Rate 107 (77 - 113)Respiratory rate: 23 (14 - 31)Blood pressure: 107/66 (92/59 - 136/90)Blood pressure source: Monitor I/Os (08/24 07:00 - 08/25 07:00):Net -560Intake 540Output 1,100 -EXAM- GENERAL: AsleepHEAD: Normocephalic, atraumatic.EYES: PERRL, EOM intact, conjunctiva and sclera clear, without nystagmus, lids normal.EARS: markedly diminished hearing.NOSE: No deformity, no discharge, no inflammation, no lesions.MOUTH: Oropharynx without deformities or lesions, normal mucosa..NECK: No masses, no thyromegaly, no abnormal cervical nodes, trachea midline.CHEST: NANCY PPM; pressure dressing in placeLUNGS: Clear bilaterally with normal respiratory effort.HEART: RRR; BiV paced rhythm; II/ LUIS at SBABDOMEN: Soft, non-tender, no organomegaly, no masses noted.MUSCULOSKELETAL: No deformity, no scoliosis noted of thoracic or lumbar spine, joint ROM grossly normal, normal gait and station.EXTREMITIES: No clubbing, no cyanosis, no edema.NEUROLOGICAL: No focal deficits, cranial nerves II-XII grossly intact, normal sensation, normal reflexes, normal coordination, normal muscle strength, normal tone.PULSES: Pulses normal in all extremities.PSYCHIATRIC: Asleep -- DATA -- ALLERGIES No Known Allergies - Reported By: Pj Benavides MEDICATIONS METOPROLOL SUCCINATE 12.5 MG PO DAILYIPRATROPIUM BROMIDE 0.5 MG NEB [id number] 20 MG PO QAMNITROGLYCERIN 0.4 MG SL Q5M PRNONDANSETRON HCL/PF 4 MG IV Q6H PRNmethocarbamoL 500 MG PO TIDKETOTIFEN FUMARATE 1 DROP EACH EYE BID PRNMAG HYDROX/AL HYDROX/SIMETH 30 ML PO Q6H PRNtraMADol HCL 50 MG PO BID (PRN)ATORVASTATIN CALCIUM 80 MG PO BEDTIMEACETAMINOPHEN 650 MG PO Q4H PRNAPIXABAN 5 MG PO BIDAMIODARONE HCL 200 MG PO BIDDEXTROSE 50%-WATER 25 ML IV ASDIR PRNDOCUSATE SODIUM 200 MG PO DAILYclopidogreL 75 MG PO DAILYbisacodyL 10 MG RECTAL ASDIR PRNGLUCAGON 1 MG IM ASDIR PRNFERROUS SULFATE 325 MG PO DAILYCYANOCOBALAMIN 500 MCG PO DAILY LABS COMPREHENSIVE METABOLIC PANEL (08/25/23 05:26)SODIUM 138POTASSIUM 4.5CHLORIDE 102CARBON DIOXIDE 32 HGLUCOSE 93BLOOD UREA NITROGEN 20GLOMERULAR FILTRATION RATE >=60 max estimateCREATININE 0.90TOTAL PROTEIN 5.9ALBUMIN 3.2CALCIUM 8.0 LBILIRUBIN TOTAL 2.0 HSGOT/AST 24SGPT/ALT 12ALKALINE PHOSPHATASE 72.0 CBC W/AUTO DIFF (08/25/23 05:26)WHITE BLOOD CELL 12.4H HRED BLOOD CELL 2.77 LHEMOGLOBIN 8.6L LHEMATOCRIT 27.3L LMEAN CELL VOLUME 98.6 HMEAN CELL HGB 31.0MEAN CELL HGB CONCENTRATION 31.5 LRED CELL DISTRIBUTION WIDTH 21.7 HPLATELET COUNT 339MEAN PLATELET VOLUME 9.6NEUTROPHIL % 80.3 HLYMPHOCYTE % 8.0 LMONOCYTE % 8.1EOSINOPHIL % 2.6BASOPHIL % 0.4NEUTROPHIL # 9.98 HLYMPHOCYTE # 0.99 L MONOCYTE # 1.00 HEOSINOPHIL # 0.32BASOPHIL # 0.05 VITALS Temperature F: 08/25/23 11:00 08/25/23 10:30 08/25/23 10:17 08/25/23 10:00 08/25/23 09:26 08/25/23 08:22 08/25/23 08:00 08/25/23 07:36 08/25/23 07:00 08/25/23 06:00Pulse Rate 08/25/23 11:00 107 08/25/23 10:30 107 08/25/23 10:17 105 08/25/23 10:00 104 08/25/23 09:26 113 08/25/23 08:22 08/25/23 08:00 104 08/25/23 07:36 106 08/25/23 07:00 97 08/25/23 06:00 95Respiratory rate: 08/25/23 11:00 23 08/25/23 10:30 21 08/25/23 10:17 24 08/25/23 10:00 22 08/25/23 09:26 22 08/25/23 08:22 08/25/23 08:00 22 08/25/23 07:36 22 08/25/23 07:00 17 08/25/23 06:00 16Blood pressure: 08/25/23 11:00 107 / 66 08/25/23 10:30 106 / 63 08/25/23 10:17 108 / 66 08/25/23 10:00 98 / 64 08/25/23 09:26 115 / 72 08/25/23 08:22 08/25/23 08:00 124 / 59 08/25/23 07:36 08/25/23 07:00 121 / 63 08/25/23 06:00 117 / 59SPO2 %: 08/25/23 11:00 96 08/25/23 10:30 95 08/25/23 10:17 96 08/25/23 10:00 08/25/23 09:26 08/25/23 08:22 94 08/25/23 08:00 95 08/25/23 07:36 95 08/25/23 07:00 95 08/25/23 06:00 93 -- ATTESTATION -- TIME SPENT ON PATIENT CARE: - Direct - Counseling - Coordination of Care - > 50% of time spent on Counseling/Care Coordination CARE ACTIVITIES / CARE COORDINATION: - I have reviewed the history and repeated the dee elements - I have seen and examined this patient - I have reviewed the progress in the clinical course since the lastexamination - I have discussed the patient's condition with other members of the care team ADDITIONAL DETAIL:Reviewed with Freda Strong/Graciela Signed in PatientKeeper by Kaleigh Gonzalez on 08/25/23 at 11:56 Cosigned by DILSHAD STRONG MD on 09/15/23 at 18:04 at 1804 at 1804ATTENTION EDITS and/or ADDENDA must be made in Patient Keeper for this note. Edits and ammendments created in [facility] are not visible in Patient Keeper or the legal medical record (HPF). RPT #: [id number] OF REPORTPRProgress [id number]:21:00P.[id number] ailable for patient [id number]:05:41 [facility] 2023-08-25 08:52:00 [id number]:52:00 [facility] ([facility]) Cardiology Progress Notes REPORT #: [id number] REPORT STATUS: Signed DATE: 08/25/23 TIME: 851 PATIENT: CHARLIE HART UNIT #: [id number] #: [id number] ROOM #: P.0418 BED: A : 35 AGE: 88 SEX: M ATTEND: Tony Gautam MD ADM AUTHOR: Annette Chow ATTENTION EDITS and/or ADDENDA must be made in Patient Keeper for this note. Edits and ammendments created in [facility] are not visible in Patient Keeper or the legal medical record (HPF). -- CO-SIGNATURE -- COMMENTS:The patient was seen on rounds with PHILIPPE Prabhakar. The patient has no complaints Examination demonstrates normal heart sounds and clear lung stanley. Impression and plan The patient is an 88-year-old gentleman with coronary artery disease and an EFbetween 40 to 50% from the outside records with anterior hypokinesis who wastransferred here for possible bypass surgery.Status post three-vessel bypass surgery.Continue aspirin and atorvastatin. On low-dose and dual antiplatelet therapy.Continue amiodarone drip and transition to oral amiodarone 200 mg twice daily.Continue with aggressive occupational and physical therapy.Echocardiogram is normal.Await inpatient rehabilitation. Signed in PatientKeeper by GINO DENG MD on 09/06/23 at 14:03 -- ASSESSMENT AND PLAN -- PROBLEMS: 1: Multiple vessel coronary artery diseaseA/P: The patient is an 88-year-old gentleman (patient of Dr. Deyvi Celis) hasa PMHx of hypertension, pulmonary hypertension, NICMP, HFrEF (EF 40 to 50%),hyperlipidemia, BPH, vitamin B12 deficiency, PPM placement (11/2021). Hedeveloped recurrent chest pain, suggestive of angina, and presented at [facility] emergency room on 08/05/22 for further evaluation and management. He wasruled in NSTEMI, started on heparin drip and transferred to [facility]. He wasobserved and pain resolved on medical therapy (per records). He was discharged.He was seen by cardiology services (Dr. Celis) as outpatient and underwentelective coronary angiogram on 08/09/22 at [facility] and showed multi-vesselcoronary artery disease, LAD (90 to 99% lesion),LCx proximal 90%, 95% obtusemarginal lesion, RCA (occluded proximal), LVEDP 12, LVEF 40%, severe anteroapical hypokinesis. He was transferred [facility] to [facility] for considerationof CABG by Dr. João Powell. He underwent CABG x 3V (STANLEY-LAD, rSVG-RI,rSVG-OM1) on 08/13/[address] Powell. He was transferred to CVICU for post-opcare and extubated on POD0. On 08/17, doppler of left upper extremity showedpartially occlusive deep venous thrombosis in the left subclavian vein. On08/18, he underwent atrial lead extraction and new atrial lead placement by . On 08/19, he underwent RV lead removal and upgrade to BiV from DualChamber PPM by Dr. Strong. He is in CVIMU now. - S/p CABG x 3V on 08/13- Continue DAPT with Eliquis (partially occlusive DVT in the left subclavianvein) and clopidogrel- Continue atorvastatin 80mg daily and metoprolol XL 12.5mg daily- Continue PO furosemide 20mg daily- On PT/OT/IS- Case management following for placement, IPR vs. SNF, pending peer to peerreview today (managed by primary team)- Cleared by CV surgery to be discharged when accepted to IPR. He willfollow-up with Dr. Powell and his manager front office- From cardiology standpoint the patient is stable and cleared to be dischargedwhen cleared by consultants and accepted to IPR/SNF -- SUBJECTIVE -- CHIEF COMPLAINT:Severe multi-vessel coronary artery disease PATIENT NARRATIVE:Sitting in the bed. Eating breakfast. On 2L nasal cannula. Seen by CVsurgery today. He denies chest pain, shortness of breath, palpitations. Noacute events overnight. -REVIEW OF SYSTEMS- GENERAL: Negative for fever, malaise, fatigue.EYES: Negative for blurry vision. No diplopia.EARS/NOSE/THROAT: Negative for sore throat. No otalgia. No rhinorrhea.RESPIRATORY: Negative for dyspnea or wheeze. No cough.CARDIOVASCULAR: Negative for chest pain or palpitations. No extremity swelling.GASTROINTESTINAL: Negative for abdominal pain or nausea. No emesis. No diarrhea.GENITOURINARY: Negative for dysuria, frequency, or urgency. No gross hematuria.MUSCULOSKELETAL: Negative for joint stiffness, pain, or arthralgias.SKIN: Negative for rashes. No pruritus.NEUROLOGICAL: Negative for headache. No vertigo. Denies paresthesias.PSYCHIATRIC: Negative for specific complaints. -- OBJECTIVE -- VITALS (08/24 07:14 - 08/25 07:14):Temperature C: 36.5 (36.5 - 37.0)Temperature source: OralPulse Rate 95 (72 - 105)Respiratory rate: 16 (14 - 31)Blood pressure: 117/59 (92/59 - 136/90)Blood pressure source: Monitor I/Os (08/24 07:00 - 08/25 07:00):Net -560Intake 540Output 1,100 -EXAM- OTHER: Constitutional: Well developed, well nourished patient, in no acute distress. Derm/Integumentary: Warm and dry with no rashes, sores, or lesions. HEENT: Eyes-sclera clear and white, symmetrical w/ no lag. ENT - Palate and gums pink, mucosa moist, no pallor/cyanosis. Neck: supple with no masses, no thyromegaly, No JVD. Respiratory: Clear to auscultation. Chest: Median sternotomy intact without drainage Heart: S1S2+, Regular Rate and Rhythm, No murmurs, rubs, or gallops. Gastrointestinal: + Bowel Sounds all quadrants. Soft, nontender with no masses or organomegaly; No HJR. Musculoskeletal: Equal strength in all extremities. No weakness. Neurology: Alert and oriented X 3. Calm, cooperative affect. No focal deficits. Extremities: + peripheral pulses. No clubbing, cyanosis. No lower extremity edema. -- DATA -- MEDICATIONS METOPROLOL SUCCINATE 12.5 MG PO DAILYIPRATROPIUM BROMIDE 0.5 MG NEB [id number] 20 MG PO QAMNITROGLYCERIN 0.4 MG SL Q5M PRNONDANSETRON HCL/PF 4 MG IV Q6H PRNmethocarbamoL 500 MG PO TIDKETOTIFEN FUMARATE 1 DROP EACH EYE BID PRNMAG HYDROX/AL HYDROX/SIMETH 30 ML PO Q6H PRNtraMADol HCL 50 MG PO BID (PRN)ATORVASTATIN CALCIUM 80 MG PO BEDTIMEACETAMINOPHEN 650 MG PO Q4H PRNAPIXABAN 5 MG PO BIDAMIODARONE HCL 200 MG PO BIDDEXTROSE 50%-WATER 25 ML IV ASDIR PRNDOCUSATE SODIUM 200 MG PO DAILYclopidogreL 75 MG PO DAILYbisacodyL 10 MG RECTAL ASDIR PRNGLUCAGON 1 MG IM ASDIR PRNFERROUS SULFATE 325 MG PO DAILYCYANOCOBALAMIN 500 MCG PO DAILY LABS COMPREHENSIVE METABOLIC PANEL (08/25/23 05:26)SODIUM 138POTASSIUM 4.5 CHLORIDE 102CARBON DIOXIDE 32 HGLUCOSE 93BLOOD UREA NITROGEN 20GLOMERULAR FILTRATION RATE >=60 max estimateCREATININE 0.90TOTAL PROTEIN 5.9ALBUMIN 3.2CALCIUM 8.0 LBILIRUBIN TOTAL 2.0 HSGOT/AST 24SGPT/ALT 12ALKALINE PHOSPHATASE 72.0 CBC W/AUTO DIFF (08/25/23 05:26)WHITE BLOOD CELL 12.4H HRED BLOOD CELL 2.77 LHEMOGLOBIN 8.6L LHEMATOCRIT 27.3L LMEAN CELL VOLUME 98.6 HMEAN CELL HGB 31.0MEAN CELL HGB CONCENTRATION 31.5 LRED CELL DISTRIBUTION WIDTH 21.7 HPLATELET COUNT 339MEAN PLATELET VOLUME 9.6NEUTROPHIL % 80.3 HLYMPHOCYTE % 8.0 LMONOCYTE % 8.1EOSINOPHIL % 2.6BASOPHIL % 0.4NEUTROPHIL # 9.98 HLYMPHOCYTE # 0.99 LMONOCYTE # 1.00 HEOSINOPHIL # 0.32BASOPHIL # 0.05 -- ATTESTATION -- CARE ACTIVITIES / CARE COORDINATION: - I have reviewed the history and repeated the dee elements - I have seen and examined this patient - I have reviewed the progress in the clinical course since the lastexamination - I have discussed the patient's condition with other members of the care team ADDITIONAL DETAIL:Plan of care discussed with Dr. Gino Deng Signed in PatientKeeper by ANNETTE CHOW on 08/25/23 at 14:49 Cosigned by GINO DENG MD on 09/06/23 at 14:03 at 1403 at 1403ATTENTION EDITS and/or ADDENDA must be made in Patient Keeper for this note. Edits and ammendments created in [facility] are not visible in Patient Keeper or the legal medical record (HPF). [facility] #: [id number] OF REPORTPRProgress [id number]:52:[id number] ailable for patient [id number]:14:02 [facility] 2023-08-24 13:05:00 [id number] /[id number] nO21xSClqqm8mF4j1+kZbQw9Dg33435-37-58Y78:05:00 [facility] ([facility]) Hospitalist Progress Note REPORT #: [id number] REPORT STATUS: Signed DATE: 08/24/23 TIME: 1305 PATIENT: CHARLIE HART UNIT #: [id number] #: [id number] ROOM #: P.0418 BED: A : 35 AGE: 88 SEX: M ATTEND: Tony Gautam MD ADM AUTHOR: Tony Gautam MD ATTENTION EDITS and/or ADDENDA must be made in Patient Keeper for this note. Edits and ammendments created in [facility] are not visible in Patient Keeper or the legal medical record (HPF). -- ASSESSMENT AND PLAN -- GENERAL ASSESSMENT: ASSESSMENT AND PLAN: 1. Recent non-ST segment elevation myocardial infarction, around July.S/p coronary angiogram 08/09 showing multivessel coronary artery disease,not amenable to percutaneous coronary intervention.LAD 90 to 99% lesion, left circumflex proximal 90%, 95% obtuse marginal lesion;Occluded proximal RCA. Left ventricular end-diastolic pressure 12;Left ventricular ejection fraction 40%, severe anteroapical hypokinesis.The patient is being admitted to [facility] for higher level of care.Optimized statin dose, continue aspirin and beta-blockers.the patient underwent CABG x 3Left internal mammary artery bypass to the left anterior descending coronaryarteryReversed saphenous vein graft to the ramus intermedius coronary arteryReversed saphenous vein graft to the first obtuse marginal coronary arteryby Dr. Powell 08/13/22. 2. Hypertension continue metoprolol. 3. Hyperlipidemia. Increased statins to high-dose for now. 4. Pulmonary hypertension 5. Benign prostatic hyperplasia. 6. 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 7. Chronic neck pain. Continue home dose of tramadol. 8. PAF, periop, amiodarone. 9. Lactic acidosis, related to surgery. 10. Acute surgical blood loss anemia.2 units PRBC and 1 unit FFP transfused 08/13. 11. Thrombocytopenia, noncritical. 12. Acute debility.PT following.Will benefit from IPR placement. 13. S/P Atrial lead extraction and new atrial lead placement by Dr Dilshad Strong08/18/23.13a. s/p RV lead revision and upgrade to BiV pacemaker, 08/19/[address] Casanova. ADDITIONAL COMMENTS:s/p CABG x 3, by Dr. João Powell 08/13/23.s/p Atrial lead extraction and new atrial lead placement 08/18/23s/p RV lead revision and upgrade to BiV pacemaker, 08/19/[address] Dilshad Arceobiloracio.CV IMU status 08/20/2023.Will benefit from IPR placement.Case management services and I attempted to call for peer to peer 08/22, betweenthe hours of [phone] jumping multiple hoops, we found that the offices were closed.We will try again, on 08/25/2023. -- SUBJECTIVE -- HPI: This 88-year-old gentleman has a past medical history significant forhypertension, pulmonary hypertension, Nonobstructive coronary artery disease,ischemic cardiomyopathy, with a previous ejection fraction of 40 to 50%,hyperlipidemia, benign prostatic hyperplasia, vitamin B12 deficiency, Permanentpacemaker placement in November 2021. The patient was in his usual state of healthuntil recently when he developed recurrent chest pain, suggestive of angina. Hewas taken to the [place] emergency room on August 05, 2023 where he wasruled in for non-ST segment elevation myocardial infarction. He was started onheparin and transferred to [facility] where he was observed for a coupleof days and improved on medical therapy.Echocardiogram showed apical wall motion abnormalities with preserved leftventricular ejection fraction. As the patient was doing well on medicalmanagement, he was discharged from the other hospital without intervention. Hewas seen by his primary manager front office, Dr Deyvi Celis and admitted forselective coronary angiogram on August 09, 2023 to [facility].This showed multivessel coronary artery disease, LAD 90 to 99% lesion, leftcircumflex proximal 90%, 95% obtuse marginal lesion; Occluded proximal RCA.Left ventricular end-diastolic pressure 12; Left ventricular ejection ljcrgnik35%, severe anteroapical hypokinesis. He has been transferred to [facility] for consideration of CABG by Dr. João Powell. PATIENT NARRATIVE: 08/10: The patient denies any chest pain or shortness of breath at this time.Denies any headache or dizziness.No nausea vomiting.labs pending.echo at the OSH shows:1. Left ventricle: The cavity size is normal. Wall thickness is normal. Systolic function is normal. The estimated ejection fraction is 50-54%.Regional wall motion abnormalities cannot be excluded. Grade I diastolicdysfunction.2. Atrial septum: No defect or patent foramen ovale is identified. He has been seen by the heart team.Given his multiple comorbidities, coronary intervention is being decided upon,percutaneous versus surgical.Plan of care discussed with the patient and his daughter, Elizabeth, at bedside. 08/11: Repeat echo over here shows:1. Left ventricle: The cavity size is normal. Wall thickness is normal.Systolic function is moderately reduced. The estimated ejection fractionis 35-39%. Wall motion is normal; there are no regional wall motionabnormalities. Grade I diastolic dysfunction.2. Aortic valve: The findings are consistent with moderate to severe stenosis.The mean systolic gradient is 15 mm Hg. The valve area is 0.98 cm 2.3. Mitral valve: The annulus is mildly to moderately calcified.Possible low flow low gradient aortic stenosis. Considerfurther evaluation with dobutamine stress echocardiogram.Patient is being evaluated by the consultants.Patient has expressed that the he would prefer getting surgery if his heartcould be taken care of percutaneously.Await final recommendations. 08/12: No acute events overnight.No chest pain or shortness of breath.After extensive discussions, the final recommendations are for CABG by Dr. Young 08/13: the patient underwent CABG x 3Left internal mammary artery bypass to the left anterior descending coronaryarteryReversed saphenous vein graft to the ramus intermedius coronary arteryReversed saphenous vein graft to the first obtuse marginal coronary arteryby Dr. Powell 08/13/22.Intra-op, patient went into AFib, and blood pressure dropped,so was re-explored, and eventually cardioverted. on 0.03mcg of Epinephrine.Received 2 units of PRBC, and 1 unit of FFP. 08/14: Extubated postoperative day 0.On 2 L of oxygen via nasal cannula.K low, replete. 08/15: All chest tubes removed.IJ removed.On 4 L of oxygen via nasal cannula.Walked about 25 feet with physical therapy.No bowel movement as yet.Plans for right atrial lead revision week of 08/[address] Owens 08/16: Reports that he is feeling well continues to remain on 2 L nasal cannula.S/p NADIRA today. 08/17: Patient was evaluated bedside, reports that he is feeling well. Continuesto remain on oxygen 2 L nasal cannula satting 100%. He is aware of possiblepacemaker lead revision to be done tomorrow. 08/18: underwent Atrial lead extraction and new atrial lead placement by Carlee Strong, On room air.Feels well.Progressing well. 08/19: On 2 L of oxygen via nasal cannula.underwent RV lead revision and upgrade to BiV pacemaker,by Dr Dilshad Strong 08/20: Oral intake is not the best but he is taking supplements.Walked about 30 feet with physical therapy.On 3 L of oxygen via nasal cannula.Transferred to CV IMU for continuity of care. 08/21: On 2 L of oxygen via nasal cannula.No significant chest pain or shortness of breath.Walked about 120 feet with physical therapy. 08/22: On 3 L of oxygen via nasal cannula.Walked 120 feet with physical therapy.Cardiothoracic surgery services have recommended inpatient rehab placement.The patient will definitely benefit from IPR.He was very functional prior to this hospitalization.Insurance company has asked for peer to peer.Precedence suggests that this usually does not translate into acceptance. 08/23: On 2 L of oxygen via nasal cannula.Max assist for activities.Was able to walk with physical therapy.Case management services and I attempted to call for peer to peer 08/22, betweenthe hours of [phone] jumping multiple hoops, we found that the offices were closed.We will try again, on 08/25/2023. 08/24: On 2 L of oxygen via nasal cannula.Eating fair.Walked with physical therapy.He will benefit from inpatient rehab, await insurance approval. -REVIEW OF SYSTEMS- GENERAL: as above -- OBJECTIVE -- VITALS (08/23 13:05 - 08/24 13:05):Temperature C: 36.5 (36.5 - 36.9)Pulse Rate 79 (72 - 107)Respiratory rate: 21 (13 - 25)Blood pressure: 131/60 (89/55 - 143/76)Blood pressure source: Monitor I/Os (08/23 07:00 - 08/24 07:00):Net -1,050Output 1,050 -EXAM- GENERAL: Well developed, well nourished, in no apparent distress.HEAD: Normocephalic, atraumatic.EYES: PERRL, EOM intact, conjunctiva and sclera clear, without nystagmus, lids normal.EARS: markedly diminished hearing.NOSE: No deformity, no discharge, no inflammation, no lesions.MOUTH: Oropharynx without deformities or lesions, normal mucosa..NECK: No masses, no thyromegaly, no abnormal cervical nodes, trachea midline.CHEST: NANCY PPM, bandaged; all CTs removedLUNGS: Clear bilaterally with normal respiratory effort.HEART: RRR; II/ LUIS at LLSBABDOMEN: Soft, non-tender, no organomegaly, no masses noted.MUSCULOSKELETAL: No deformity, no scoliosis noted of thoracic or lumbar spine, joint ROM grossly normal, normal gait and station.EXTREMITIES: No clubbing, no cyanosis, no edema.NEUROLOGICAL: No focal deficits, cranial nerves II-XII grossly intact, normal sensation, normal reflexes, normal coordination, normal muscle strength, normal tone.PULSES: Pulses normal in all extremities. -- DATA -- MEDICATIONS METOPROLOL SUCCINATE 12.5 MG PO DAILYIPRATROPIUM BROMIDE 0.5 MG NEB [id number] 20 MG PO QAMNITROGLYCERIN 0.4 MG SL Q5M PRNONDANSETRON HCL/PF 4 MG IV Q6H PRNmethocarbamoL 500 MG PO TIDKETOTIFEN FUMARATE 1 DROP EACH EYE BID PRNMAG HYDROX/AL HYDROX/SIMETH 30 ML PO Q6H PRNtraMADol HCL 50 MG PO BID (PRN)ATORVASTATIN CALCIUM 80 MG PO BEDTIMEACETAMINOPHEN 650 MG PO Q4H PRNAPIXABAN 5 MG PO BIDAMIODARONE HCL 200 MG PO BIDDEXTROSE 50%-WATER 25 ML IV ASDIR PRNDOCUSATE SODIUM 200 MG PO DAILYclopidogreL 75 MG PO DAILYbisacodyL 10 MG RECTAL ASDIR PRNGLUCAGON 1 MG IM ASDIR PRNFERROUS SULFATE 325 MG PO DAILYCYANOCOBALAMIN 500 MCG PO DAILY -- QUALITY -- -MEDICATIONS- - I attest that the foregoing medication list in the medical record is true,accurate, and complete to the best of my knowledge. -- ATTESTATION -- CARE ACTIVITIES / CARE COORDINATION: - I have reviewed the history and repeated the dee elements - I have seen and examined this patient - I have reviewed the progress in the clinical course since the lastexamination - I have discussed the patient's condition with other members of the care team Signed in PatientKeeper by Tony Gautam MD on 08/24/23 at 18:06 at 1806ATTENTION EDITS and/or ADDENDA must be made in Patient Keeper for this note. Edits and ammendments created in [employer] are not visible in Patient Keeper or the legal medical record ([facility]). RPT #: [id number] OF REPORTPRProgress [id number]:05:00P.WA-[id number] ailable for patient qxwhASJEEBSXVCKKFZ1989-94-47D78:06:51 [facility] 2023-08-24 09:15:00 [id number]+RQfsuyoX+9PvJ0Z27gYi5 HMi69xsMOZyh7u+qKMPAXz+VcTS8533-68-08E88:15:00 [facility] ([facility]) Cardiology Progress Notes REPORT #: [id number] REPORT STATUS: Signed DATE: 08/24/23 TIME: 914 PATIENT: CHARLIE HART UNIT #: [id number] #: [id number] ROOM #: P.0418 BED: A : 35 AGE: 88 SEX: M ATTEND: Tony Gautam MD ADM AUTHOR: Annette Chow ATTENTION EDITS and/or ADDENDA must be made in Patient Keeper for this note. Edits and ammendments created in [employer] are not visible in Patient Keeper or the legal medical record ([facility]). -- ASSESSMENT AND PLAN -- PROBLEMS: 1: Multiple vessel coronary artery diseaseA/P: The patient is an 88-year-old gentleman (patient of Dr. Deyvi Celis) hasa PMHx of hypertension, pulmonary hypertension, NICMP, HFrEF (EF 40 to 50%),hyperlipidemia, BPH, vitamin B12 deficiency, PPM placement (11/2021). Hedeveloped recurrent chest pain, suggestive of angina, and presented at [facility] emergency room on 08/05/22 for further evaluation and management. He wasruled in NSTEMI, started on heparin drip and transferred to [facility]. He wasobserved and pain resolved on medical therapy (per records). He was discharged.He was seen by cardiology services (Dr. Celis) as outpatient and underwentelective coronary angiogram on 08/09/22 at [facility] and showed multi-vesselcoronary artery disease, LAD (90 to 99% lesion),LCx proximal 90%, 95% obtusemarginal lesion, RCA (occluded proximal), LVEDP 12, LVEF 40%, severeanteroapical hypokinesis. He was transferred here to [facility] for considerationof CABG by Dr. João Powell. He underwent CABG x 3V (STANLEY-LAD, rSVG-RI,rSVG-OM1) on 08/13/[address] Powell. He was transferred to CVICU for post-opcare and extubated on POD0. On 08/17, doppler of left upper extremity showedpartially occlusive deep venous thrombosis in the left subclavian vein. On08/18, he underwent atrial lead extraction and new atrial lead placement by . On 08/19, he underwent RV lead removal and upgrade to BiV from DualChamber PPM by Dr. Strong. He is in CVIMU now. - S/p CABG x 3V on 08/13- On DAPT with Eliquis (partially occlusive DVT in the left subclavian vein)and clopidogrel- On atorvastatin 80mg daily and metoprolol XL 12.5mg daily- On PO furosemide 20mg daily- On PT/OT/IS- Case management following for placement, IPR vs. SNF, pending peer to peerreview (managed by primary team)- Cleared by CV surgery to be discharged when accepted to [facility]- From cardiology standpoint the patient is stable and cleared to be dischargedwhen cleared by consultants and accepted to IPR/SNF -- SUBJECTIVE -- CHIEF COMPLAINT:Severe multi-vessel coronary artery disease PATIENT NARRATIVE: Resting in bed. He states is feeling good. Denies chest pain, shortness ofbreath, palpitations. Awaiting placement. Seen by CV surgery. No acuteevents overnight. -REVIEW OF SYSTEMS- GENERAL: Negative for fever, malaise, fatigue.EYES: Negative for blurry vision. No diplopia.EARS/NOSE/THROAT: Negative for sore throat. No otalgia. No rhinorrhea.RESPIRATORY: Negative for dyspnea or wheeze. No cough.CARDIOVASCULAR: Negative for chest pain or palpitations. No extremity swelling.GASTROINTESTINAL: Negative for abdominal pain or nausea. No emesis. No diarrhea.GENITOURINARY: Negative for dysuria, frequency, or urgency. No gross hematuria.MUSCULOSKELETAL: Negative for joint stiffness, pain, or arthralgias.SKIN: Negative for rashes. No pruritus.NEUROLOGICAL: Negative for headache. No vertigo. Denies paresthesias.PSYCHIATRIC: Negative for specific complaints. -- OBJECTIVE -- VITALS (08/23 07:27 - 08/24 07:27):Temperature C: 36.8 (36.7 - 36.9)Pulse Rate 78 (78 - 107)Respiratory rate: 14 (10 - 25)Blood pressure: 119/58 (89/55 - 143/76)Blood pressure source: Monitor I/Os (08/23 07:00 - 08/24 07:00):Net -1,050Output 1,050 -EXAM- OTHER: Constitutional: Well developed, well nourished patient, in no acute distress. Derm/Integumentary: Warm and dry with no rashes, sores, or lesions. HEENT: Eyes-sclera clear and white, symmetrical w/ no lag. ENT - Palate and gums pink, mucosa moist, no pallor/cyanosis. Neck: supple with no masses, no thyromegaly, No JVD. Respiratory: Clear to auscultation. Chest: Median sternotomy intact without drainage Heart: S1S2+, Regular Rate and Rhythm, No murmurs, rubs, or gallops. Gastrointestinal: + Bowel Sounds all quadrants. Soft, nontender with no masses or organomegaly; No HJR. Musculoskeletal: Equal strength in all extremities. No weakness. Neurology: Alert and oriented X 3. Calm, cooperative affect. No focal deficits. Extremities: + peripheral pulses. No clubbing, cyanosis. No lower extremity edema. -- DATA -- MEDICATIONS METOPROLOL SUCCINATE 12.5 MG PO DAILYIPRATROPIUM BROMIDE 0.5 MG NEB [id number] 20 MG PO QAMNITROGLYCERIN 0.4 MG SL Q5M PRNONDANSETRON HCL/PF 4 MG IV Q6H PRNmethocarbamoL 500 MG PO TIDKETOTIFEN FUMARATE 1 DROP EACH EYE BID PRNMAG HYDROX/AL HYDROX/SIMETH 30 ML PO Q6H PRNtraMADol HCL 50 MG PO BID (PRN)ATORVASTATIN CALCIUM 80 MG PO BEDTIMEACETAMINOPHEN 650 MG PO Q4H PRNAPIXABAN 5 MG PO BIDAMIODARONE HCL 200 MG PO BIDDEXTROSE 50%-WATER 25 ML IV ASDIR PRNDOCUSATE SODIUM 200 MG PO DAILYclopidogreL 75 MG PO DAILYbisacodyL 10 MG RECTAL ASDIR PRNGLUCAGON 1 MG IM ASDIR PRNFERROUS SULFATE 325 MG PO DAILYCYANOCOBALAMIN 500 MCG PO DAILY -- ATTESTATION -- CARE ACTIVITIES / CARE COORDINATION: - I have reviewed the history and repeated the dee elements - I have seen and examined this patient - I have reviewed the progress in the clinical course since the lastexamination - I have discussed the patient's condition with other members of the care team ADDITIONAL DETAIL:Plan of care discussed with Dr. Gino Deng Signed in PatientKeeper by ANNETTE CHOW on 08/24/23 at 13:30 Cosigned by GINO DENG MD on 09/02/23 at 00:05 at 0005 at 0005ATTENTION EDITS and/or ADDENDA must be made in Patient Keeper for this note. Edits and ammendments created in [employer] are not visible in Patient Keeper or the legal medical record (HPF). RPT #: [id number] OF REPORTPRProgress [id number]:15:00P.[id number] ailable for patient [id number]:06:34 [facility] 2023-08-23 13:08:00 [id number] sMEtjFAYATnNjOVfBnELOwPrxh/[id number]:08:00 [facility] ([facility]) Hospitalist Progress Note REPORT #: [id number] REPORT STATUS: Signed DATE: 08/23/23 TIME: 1308 PATIENT: CHARLIE HART UNIT #: [id number] #: [id number] ROOM #: P.0418 BED: A : 35 AGE: 88 SEX: M ATTEND: Tony Gautam MD ADM AUTHOR: Tony Gautam MD ATTENTION EDITS and/or ADDENDA must be made in Patient Keeper for this note. Edits and ammendments created in [employer] are not visible in Patient Keeper or the legal medical record (HPF). -- ASSESSMENT AND PLAN -- GENERAL ASSESSMENT: ASSESSMENT AND PLAN: 1. Recent non-ST segment elevation myocardial infarction, around July.S/p coronary angiogram 08/09 showing multivessel coronary artery disease,not amenable to percutaneous coronary intervention.LAD 90 to 99% lesion, left circumflex proximal 90%, 95% obtuse marginal lesion;Occluded proximal RCA. Left ventricular end-diastolic pressure 12;Left ventricular ejection fraction 40%, severe anteroapical hypokinesis.The patient is being admitted to [facility] for higher level of care.Optimized statin dose, continue aspirin and beta-blockers.the patient underwent CABG x 3Left internal mammary artery bypass to the left anterior descending coronaryarteryReversed saphenous vein graft to the ramus intermedius coronary arteryReversed saphenous vein graft to the first obtuse marginal coronary arteryby Dr. Powell 08/13/22. 2. Hypertension continue metoprolol. 3. Hyperlipidemia. Increased statins to high-dose for now. 4. Pulmonary hypertension 5. Benign prostatic hyperplasia. 6. 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 7. Chronic neck pain. Continue home dose of tramadol. 8. PAF, periop, amiodarone. 9. Lactic acidosis, related to surgery. 10. Acute surgical blood loss anemia.2 units PRBC and 1 unit FFP transfused 08/13. 11. Thrombocytopenia, noncritical. 12. Acute debility.PT following.Will benefit from IPR placement. 13. S/P Atrial lead extraction and new atrial lead placement by Dr Dilshad Strong08/18/23.13a. s/p RV lead revision and upgrade to BiV pacemaker, 08/19/[address] Casanova. ADDITIONAL COMMENTS:s/p CABG x 3, by Dr. João Powell 08/13/23.s/p Atrial lead extraction and new atrial lead placement 08/18/23s/p RV lead revision and upgrade to BiV pacemaker, 08/19/[address] Dilshad Parnell.CV IMU status 08/20/2023.Will benefit from IPR placement.Case management services and I attempted to call for peer to peer 08/22, betweenthe hours of [phone] jumping multiple hoops, we found that the offices were closed.We will try again, on 08/25/2023. -- SUBJECTIVE -- HPI: This 88-year-old gentleman has a past medical history significant forhypertension, pulmonary hypertension, Nonobstructive coronary artery disease,ischemic cardiomyopathy, with a previous ejection fraction of 40 to 50%,hyperlipidemia, benign prostatic hyperplasia, vitamin B12 deficiency, Permanentpacemaker placement in November 2021. The patient was in his usual state of healthuntil recently when he developed recurrent chest pain, suggestive of angina. Hewas taken to the [place] emergency room on August 05, 2023 where he wasruled in for non-ST segment elevation myocardial infarction. He was started onheparin and transferred to [facility] where he was observed for a coupleof days and improved on medical therapy.Echocardiogram showed apical wall motion abnormalities with preserved leftventricular ejection fraction. As the patient was doing well on medicalmanagement, he was discharged from the other hospital without intervention. Hewas seen by his primary manager front office, Dr Deyvi Celis and admitted forselective coronary angiogram on August 09, 2023 to [facility].This showed multivessel coronary artery disease, LAD 90 to 99% lesion, leftcircumflex proximal 90%, 95% obtuse marginal lesion; Occluded proximal RCA.Left ventricular end-diastolic pressure 12; Left ventricular ejection aitninjd92%, severe anteroapical hypokinesis. He has been transferred to [facility] for consideration of CABG by Dr. João Powell. PATIENT NARRATIVE: 08/10: The patient denies any chest pain or shortness of breath at this time.Denies any headache or dizziness.No nausea vomiting.labs pending.echo at the OSH shows:1. Left ventricle: The cavity size is normal. Wall thickness is normal.Systolic function is normal. The estimated ejection fraction is 50-54%.Regional wall motion abnormalities cannot be excluded. Grade I diastolic dysfunction.2. Atrial septum: No defect or patent foramen ovale is identified. He has been seen by the heart team.Given his multiple comorbidities, coronary intervention is being decided upon,percutaneous versus surgical.Plan of care discussed with the patient and his daughter, Elizabeth, at bedside. 08/11: Repeat echo over here shows:1. Left ventricle: The cavity size is normal. Wall thickness is normal.Systolic function is moderately reduced. The estimated ejection fractionis 35-39%. Wall motion is normal; there are no regional wall motionabnormalities. Grade I diastolic dysfunction.2. Aortic valve: The findings are consistent with moderate to severe stenosis.The mean systolic gradient is 15 mm Hg. The valve area is 0.98 cm 2.3. Mitral valve: The annulus is mildly to moderately calcified.Possible low flow low gradient aortic stenosis. Considerfurther evaluation with dobutamine stress echocardiogram.Patient is being evaluated by the consultants.Patient has expressed that the he would prefer getting surgery if his heartcould be taken care of percutaneously.Await final recommendations. 08/12: No acute events overnight.No chest pain or shortness of breath.After extensive discussions, the final recommendations are for CABG by Dr. Young 08/13: the patient underwent CABG x 3Left internal mammary artery bypass to the left anterior descending coronaryarteryReversed saphenous vein graft to the ramus intermedius coronary arteryReversed saphenous vein graft to the first obtuse marginal coronary arteryby Dr. Powell 08/13/22.Intra-op, patient went into AFib, and blood pressure dropped,so was re-explored, and eventually cardioverted. on 0.03mcg of Epinephrine.Received 2 units of PRBC, and 1 unit of FFP. 08/14: Extubated postoperative day 0.On 2 L of oxygen via nasal cannula.K low, replete. 08/15: All chest tubes removed.IJ removed.On 4 L of oxygen via nasal cannula.Walked about 25 feet with physical therapy.No bowel movement as yet.Plans for right atrial lead revision week of 08/[address] Owens 08/16: Reports that he is feeling well continues to remain on 2 L nasal cannula.S/p NADIRA today. 08/17: Patient was evaluated bedside, reports that he is feeling well. Continuesto remain on oxygen 2 L nasal cannula satting 100%. He is aware of possiblepacemaker lead revision to be done tomorrow. 08/18: underwent Atrial lead extraction and new atrial lead placement by Carlee Strong,On room air.Feels well. Progressing well. 08/19: On 2 L of oxygen via nasal cannula.underwent RV lead revision and upgrade to BiV pacemaker,by Dr Dilshad Strong 08/20: Oral intake is not the best but he is taking supplements.Walked about 30 feet with physical therapy.On 3 L of oxygen via nasal cannula.Transferred to CV IMU for continuity of care. 08/21: On 2 L of oxygen via nasal cannula.No significant chest pain or shortness of breath.Walked about 120 feet with physical therapy. 08/22: On 3 L of oxygen via nasal cannula.Walked 120 feet with physical therapy.Cardiothoracic surgery services have recommended inpatient rehab placement.The patient will definitely benefit from IPR.He was very functional prior to this hospitalization.[facility] has asked for peer to peer.Precedence suggests that this usually does not translate into acceptance. 08/23: On 2 L of oxygen via nasal cannula.Max assist for activities.Was able to walk with physical therapy.Case management services and I attempted to call for peer to peer 08/22, betweenthe hours of [phone] jumping multiple hoops, we found that the offices were closed.We will try again, on 08/25/2023. -REVIEW OF SYSTEMS- GENERAL: as above -- OBJECTIVE -- VITALS (08/22 13:08 - 08/23 13:08):Temperature C: 36.4 (36.4 - 36.7)Pulse Rate 82 (82 - 106)Respiratory rate: 13 (13 - 24)Blood pressure: 126/61 (107/55 - 130/70)Blood pressure source: Monitor I/Os (08/22 07:00 - 08/23 07:00):Net 400Intake 400 -EXAM- GENERAL: Well developed, well nourished, in no apparent distress.HEAD: Normocephalic, atraumatic.EYES: PERRL, EOM intact, conjunctiva and sclera clear, without nystagmus, lids normal.EARS: markedly diminished hearing.NOSE: No deformity, no discharge, no inflammation, no lesions.MOUTH: Oropharynx without deformities or lesions, normal mucosa..NECK: No masses, no thyromegaly, no abnormal cervical nodes, trachea midline.CHEST: NANCY PPM, bandaged; all CTs removedLUNGS: Clear bilaterally with normal respiratory effort.HEART: RRR; II/ LUIS at LLSBABDOMEN: Soft, non-tender, no organomegaly, no masses noted.MUSCULOSKELETAL: No deformity, no scoliosis noted of thoracic or lumbar spine, joint ROM grossly normal, normal gait and station.EXTREMITIES: No clubbing, no cyanosis, no edema.NEUROLOGICAL: No focal deficits, cranial nerves II-XII grossly intact, normal sensation, normal reflexes, normal coordination, normal muscle strength, normal tone.PULSES: Pulses normal in all extremities. -- DATA -- MEDICATIONS METOPROLOL SUCCINATE 12.5 MG PO DAILYIPRATROPIUM BROMIDE 0.5 MG NEB [id number] 20 MG PO QAMNITROGLYCERIN 0.4 MG SL Q5M PRNONDANSETRON HCL/PF 4 MG IV Q6H PRNmethocarbamoL 500 MG PO TIDKETOTIFEN FUMARATE 1 DROP EACH EYE BID PRNMAG HYDROX/AL HYDROX/SIMETH 30 ML PO Q6H PRNtraMADol HCL 50 MG PO BID (PRN)ATORVASTATIN CALCIUM 80 MG PO BEDTIMEACETAMINOPHEN 650 MG PO Q4H PRNAPIXABAN 5 MG PO BIDAMIODARONE HCL 200 MG PO BIDDEXTROSE 50%-WATER 25 ML IV ASDIR PRNDOCUSATE SODIUM 200 MG PO DAILYclopidogreL 75 MG PO DAILYbisacodyL 10 MG RECTAL ASDIR PRNGLUCAGON 1 MG IM ASDIR PRNFERROUS SULFATE 325 MG PO DAILYCYANOCOBALAMIN 500 MCG PO DAILY -- QUALITY -- -MEDICATIONS- - I attest that the foregoing medication list in the medical record is true,accurate, and complete to the best of my knowledge. -- ATTESTATION -- CARE ACTIVITIES / CARE COORDINATION: - I have reviewed the history and repeated the dee elements - I have seen and examined this patient - I have reviewed the progress in the clinical course since the lastexamination - I have discussed the patient's condition with other members of the care team Signed in PatientKeeper by Tony Gautam MD on 08/23/23 at 19:11 at 1911ATTENTION EDITS and/or ADDENDA must be made in Patient Keeper for this note. Edits and ammendments created in [facility] are not visible in Patient Keeper or the legal medical record (HPF). RPT #: [id number] OF REPORTPRProgress [id number]:08:00P.[id number] ailable for patient [id number]:12:44 [facility] 2023-08-23 08:59:00 [id number] +/uTSO8jMmKir7lTU6YHH4/ZTKy5596-44-51K56:59:00 [facility] ([facility]) Cardiology Progress Notes REPORT #: [id number] REPORT STATUS: Signed DATE: 08/23/23 TIME: 858 PATIENT: CHARLIE HART UNIT #: [id number] #: [id number] ROOM #: P.0418 BED: A : 35 AGE: 88 SEX: M ATTEND: Tony Gautam MD ADM AUTHOR: Annette Chow ATTENTION EDITS and/or ADDENDA must be made in Patient Keeper for this note. Edits and ammendments created in [employer] are not visible in Patient Keeper or the legal medical record (HPF). -- ASSESSMENT AND PLAN -- PROBLEMS: 1: Multiple vessel coronary artery diseaseA/P: The patient is an 88-year-old gentleman (patient of Dr. Deyvi Celis) hasa PMHx of hypertension, pulmonary hypertension, NICMP, HFrEF (EF 40 to 50%),hyperlipidemia, BPH, vitamin B12 deficiency, PPM placement (11/2021). Hedeveloped recurrent chest pain, suggestive of angina, and presented at [facility] emergency room on 08/05/22 for further evaluation and management. He wasruled in NSTEMI, started on heparin drip and transferred to [facility]. He wasobserved and pain resolved on medical therapy (per records). He was discharged.He was seen by cardiology services (Dr. Celis) as outpatient and underwentelective coronary angiogram on 08/09/22 at [facility] and showed multi-vesselcoronary artery disease, LAD (90 to 99% lesion),LCx proximal 90%, 95% obtusemarginal lesion, RCA (occluded proximal), LVEDP 12, LVEF 40%, severeanteroapical hypokinesis. He was transferred [facility] to [facility] for considerationof CABG by Dr. João Powell. He underwent CABG x 3V (STANLEY-LAD, rSVG-RI,rSVG-OM1) on 08/13/[address] oPwell. He was transferred to CVICU for post-opcare and extubated on POD0. On 08/17, doppler of left upper extremity showedpartially occlusive deep venous thrombosis in the left subclavian vein. On08/18, he underwent atrial lead extraction and new atrial lead placement by . On 08/19, he underwent RV lead removal and upgrade to BiV from DualChamber PPM by Dr. Strong. He is in CVIMU now. - S/p CABG x 3V on 08/13- Continue DAPT with Eliquis (partially occlusive DVT in the left subclavianvein) and clopidogrel- Continue atorvastatin 80mg daily and metoprolol XL 12.5mg daily- Continue PO furosemide 20mg daily- On PT/OT/IS- Case management following for placement, IPR vs. SNF, pending peer to peerreview (managed by primary team)- Cleared by CV surgery to be discharged when accepted to IPR- From cardiology standpoint the patient is stable and cleared to be dischargedwhen cleared by consultants and accepted to IPR/SNF -- SUBJECTIVE -- CHIEF COMPLAINT:Severe multi-vessel coronary artery disease PATIENT NARRATIVE: Sitting in bed. He denies chest pain, shortness of breath, palpitations.Awaiting acceptance to rehab. Seen by CV surgery. No acute events overnight. -REVIEW OF SYSTEMS- GENERAL: Negative for fever, malaise, fatigue.EYES: Negative for blurry vision. No diplopia.EARS/NOSE/THROAT: Negative for sore throat. No otalgia. No rhinorrhea.RESPIRATORY: Negative for dyspnea or wheeze. No cough.CARDIOVASCULAR: Negative for chest pain or palpitations. No extremity swelling.GASTROINTESTINAL: Negative for abdominal pain or nausea. No emesis. No diarrhea.GENITOURINARY: Negative for dysuria, frequency, or urgency. No gross hematuria.MUSCULOSKELETAL: Negative for joint stiffness, pain, or arthralgias.SKIN: Negative for rashes. No pruritus.NEUROLOGICAL: Negative for headache. No vertigo. Denies paresthesias.PSYCHIATRIC: Negative for specific complaints. -- OBJECTIVE -- VITALS (08/22 07:15 - 08/23 07:15):Temperature C: 36.4 (36.4 - 36.9)Pulse Rate 100 (84 - 116)Respiratory rate: 16 (14 - 24)Blood pressure: 107/55 (96/50 - 140/86)Blood pressure source: Monitor I/Os (08/22 07:00 - 08/23 07:00):Net 400Intake 400 -EXAM- OTHER: Constitutional: Well developed, well nourished patient, in no acute distress. Derm/Integumentary: Warm and dry with no rashes, sores, or lesions. HEENT: Eyes-sclera clear and white, symmetrical w/ no lag. ENT - Palate and gums pink, mucosa moist, no pallor/cyanosis. Neck: supple with no masses, no thyromegaly, No JVD. Respiratory: Clear to auscultation. Chest: Median sternotomy intact without drainage Heart: S1S2+, Regular Rate and Rhythm, No murmurs, rubs, or gallops. Gastrointestinal: + Bowel Sounds all quadrants. Soft, nontender with no masses or organomegaly; No HJR. Musculoskeletal: Equal strength in all extremities. No weakness. Neurology: Alert and oriented X 3. Calm, cooperative affect. No focal deficits. Extremities: + peripheral pulses. No clubbing, cyanosis. No lower extremity edema. -- DATA -- MEDICATIONS METOPROLOL SUCCINATE 12.5 MG PO DAILYIPRATROPIUM BROMIDE 0.5 MG NEB [id number] 20 MG PO QAMNITROGLYCERIN 0.4 MG SL Q5M PRNONDANSETRON HCL/PF 4 MG IV Q6H PRNmethocarbamoL 500 MG PO TIDKETOTIFEN FUMARATE 1 DROP EACH EYE BID PRNMAG HYDROX/AL HYDROX/SIMETH 30 ML PO Q6H PRNtraMADol HCL 50 MG PO BID (PRN)ATORVASTATIN CALCIUM 80 MG PO BEDTIMEACETAMINOPHEN 650 MG PO Q4H PRNAPIXABAN 5 MG PO BIDAMIODARONE HCL 200 MG PO BIDDEXTROSE 50%-WATER 25 ML IV ASDIR PRNDOCUSATE SODIUM 200 MG PO DAILYclopidogreL 75 MG PO DAILYbisacodyL 10 MG RECTAL ASDIR PRNGLUCAGON 1 MG IM ASDIR PRNFERROUS SULFATE 325 MG PO DAILYCYANOCOBALAMIN 500 MCG PO DAILY -- ATTESTATION -- CARE ACTIVITIES / CARE COORDINATION: - I have reviewed the history and repeated the dee elements - I have seen and examined this patient - I have reviewed the progress in the clinical course since the lastexamination - I have discussed the patient's condition with other members of the care team ADDITIONAL DETAIL:Plan of care discussed with Dr. Gino Deng Signed in PatientKeeper by ANNETTE CHOW on 08/23/23 at 14:07 Cosigned by GINO DENG MD on 09/02/23 at 00:06 at 0006 at 0006ATTENTION EDITS and/or ADDENDA must be made in Patient Keeper for this note. Edits and ammendments created in [employer] are not visible in Patient Keeper or the legal medical record (HPF). RPT #: [id number] OF REPORTPRProgress [id number]:59:00P.[id number] ailable for patient [id number]:07:06 [facility] 2023-08-22 15:36:00 [id number] jJYMJVeY4tAbf1/Touj0a4g9MUF4597-56-41X14:36:00 [facility] ([facility]) Hospitalist Progress Note REPORT #: [id number] REPORT STATUS: Signed DATE: 08/22/23 TIME: 153 PATIENT: CHARLIE HART UNIT #: [id number] #: [id number] ROOM #: P.0418 BED: A : 35 AGE: 88 SEX: M ATTEND: Tony Gautam MD ADM AUTHOR: Tony Gautam MD ATTENTION EDITS and/or ADDENDA must be made in Patient Keeper for this note. Edits and ammendments created in [employer] are not visible in Patient Keeper or the legal medical record (HPF). -- ASSESSMENT AND PLAN -- GENERAL ASSESSMENT: ASSESSMENT AND PLAN: 1. Recent non-ST segment elevation myocardial infarction, around July.S/p coronary angiogram 08/09 showing multivessel coronary artery disease,not amenable to percutaneous coronary intervention.LAD 90 to 99% lesion, left circumflex proximal 90%, 95% obtuse marginal lesion;Occluded proximal RCA. Left ventricular end-diastolic pressure 12;Left ventricular ejection fraction 40%, severe anteroapical hypokinesis.The patient is being admitted to [facility] for higher level of care.Optimized statin dose, continue aspirin and beta-blockers.the patient underwent CABG x 3Left internal mammary artery bypass to the left anterior descending coronaryarteryReversed saphenous vein graft to the ramus intermedius coronary arteryReversed saphenous vein graft to the first obtuse marginal coronary arteryby Dr. Powell 08/13/22. 2. Hypertension continue metoprolol. 3. Hyperlipidemia. Increased statins to high-dose for now. 4. Pulmonary hypertension 5. Benign prostatic hyperplasia. 6. 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 7. Chronic neck pain. Continue home dose of tramadol. 8. PAF, periop, amiodarone. 9. Lactic acidosis, related to surgery. 10. Acute surgical blood loss anemia.2 units PRBC and 1 unit FFP transfused 08/13. 11. Thrombocytopenia, noncritical. 12. Acute debility.PT following.Will benefit from IPR placement. 13. S/P Atrial lead extraction and new atrial lead placement by Dr Dilshad Strong08/18/23.13a. s/p RV lead revision and upgrade to BiV pacemaker, 08/19/[address] Casanova. ADDITIONAL COMMENTS:s/p CABG x 3, by Dr. João Powell 08/13/23.s/p Atrial lead extraction and new atrial lead placement 08/18/23s/p RV lead revision and upgrade to BiV pacemaker, 08/19/[address] Dilshad Parnell.CV IMU status 08/20/2023.Will benefit from IPR placement. -- SUBJECTIVE -- HPI: This 88-year-old gentleman has a past medical history significant forhypertension, pulmonary hypertension, Nonobstructive coronary artery disease,ischemic cardiomyopathy, with a previous ejection fraction of 40 to 50%,hyperlipidemia, benign prostatic hyperplasia, vitamin B12 deficiency, Permanentpacemaker placement in November 2021. The patient was in his usual state of healthuntil recently when he developed recurrent chest pain, suggestive of angina. Hewas taken to the [place] emergency room on August 05, 2023 where he wasruled in for non-ST segment elevation myocardial infarction. He was started onheparin and transferred to [facility] where he was observed for a coupleof days and improved on medical therapy.Echocardiogram showed apical wall motion abnormalities with preserved leftventricular ejection fraction. As the patient was doing well on medicalmanagement, he was discharged from the other hospital without intervention. Hewas seen by his primary manager front office, Dr Deyvi Celis and admitted forselective coronary angiogram on August 09, 2023 to [facility].This showed multivessel coronary artery disease, LAD 90 to 99% lesion, leftcircumflex proximal 90%, 95% obtuse marginal lesion; Occluded proximal RCA.Left ventricular end-diastolic pressure 12; Left ventricular ejection egdjtsdg31%, severe anteroapical hypokinesis. He has been transferred to [facility] for consideration of CABG by Dr. João Powell. PATIENT NARRATIVE:08/10: The patient denies any chest pain or shortness of breath at this time.Denies any headache or dizziness.No nausea vomiting.labs pending.echo at the OSH shows:1. Left ventricle: The cavity size is normal. Wall thickness is normal.Systolic function is normal. The estimated ejection fraction is 50-54%.Regional wall motion abnormalities cannot be excluded. Grade I diastolicdysfunction.2. Atrial septum: No defect or patent foramen ovale is identified. He has been seen by the heart team.Given his multiple comorbidities, coronary intervention is being decided upon,percutaneous versus surgical. Plan of care discussed with the patient and his daughter, Elizabeth, at bedside. 08/11: Repeat echo over here shows:1. Left ventricle: The cavity size is normal. Wall thickness is normal.Systolic function is moderately reduced. The estimated ejection fractionis 35-39%. Wall motion is normal; there are no regional wall motionabnormalities. Grade I diastolic dysfunction.2. Aortic valve: The findings are consistent with moderate to severe stenosis.The mean systolic gradient is 15 mm Hg. The valve area is 0.98 cm 2.3. Mitral valve: The annulus is mildly to moderately calcified.Possible low flow low gradient aortic stenosis. Considerfurther evaluation with dobutamine stress echocardiogram.Patient is being evaluated by the consultants.Patient has expressed that the he would prefer getting surgery if his heartcould be taken care of percutaneously.Await final recommendations. 08/12: No acute events overnight.No chest pain or shortness of breath.After extensive discussions, the final recommendations are for CABG by Dr. Young 08/13: the patient underwent CABG x 3Left internal mammary artery bypass to the left anterior descending coronaryarteryReversed saphenous vein graft to the ramus intermedius coronary arteryReversed saphenous vein graft to the first obtuse marginal coronary arteryby Dr. Powell 08/13/22.Intra-op, patient went into AFib, and blood pressure dropped,so was re-explored, and eventually cardioverted. on 0.03mcg of Epinephrine.Received 2 units of PRBC, and 1 unit of FFP. 08/14: Extubated postoperative day 0.On 2 L of oxygen via nasal cannula.K low, replete. 08/15: All chest tubes removed.IJ removed.On 4 L of oxygen via nasal cannula.Walked about 25 feet with physical therapy.No bowel movement as yet.Plans for right atrial lead revision week of 08/[address] Owens 08/16: Reports that he is feeling well continues to remain on 2 L nasal cannula.S/p NADIRA today. 08/17: Patient was evaluated bedside, reports that he is feeling well. Continuesto remain on oxygen 2 L nasal cannula satting 100%. He is aware of possiblepacemaker lead revision to be done tomorrow. 08/18: underwent Atrial lead extraction and new atrial lead placement by Carlee Strong,On room air.Feels well.Progressing well. 08/19: On 2 L of oxygen via nasal cannula.underwent RV lead revision and upgrade to BiV pacemaker,by Dr Dilshad Strong 08/20: Oral intake is not the best but he is taking supplements.Walked about 30 feet with physical therapy.On 3 L of oxygen via nasal cannula.Transferred to CV IMU for continuity of care. 08/21: On 2 L of oxygen via nasal cannula.No significant chest pain or shortness of breath.Walked about 120 feet with physical therapy. 08/22: On 3 L of oxygen via nasal cannula.Walked 120 feet with physical therapy. Cardiothoracic surgery services have recommended inpatient rehab placement. The patient will definitely benefit from IPR. He was very functional prior to this hospitalization. Insurance [employer] has asked for peer to peer.Precedence suggests that this usually does not translate into acceptance. -REVIEW OF SYSTEMS- GENERAL: as above -- OBJECTIVE -- VITALS (08/21 15:36 - 08/22 15:36):Temperature C: 36.9 (36.4 - 36.9)Pulse Rate 116 (82 - 116)Respiratory rate: 18 (5 - 23)Blood pressure: 140/68 (96/50 - 140/86)Blood pressure source: Monitor I/Os (08/21 07:00 - 08/22 07:00):Net -1,220Intake 480Output 1,700 -EXAM- GENERAL: Well developed, well nourished, in no apparent distress.HEAD: Normocephalic, atraumatic.EYES: PERRL, EOM intact, conjunctiva and sclera clear, without nystagmus, lids normal.EARS: markedly diminished hearing.NOSE: No deformity, no discharge, no inflammation, no lesions.MOUTH: Oropharynx without deformities or lesions, normal mucosa..NECK: No masses, no thyromegaly, no abnormal cervical nodes, trachea midline.CHEST: NANCY PPM, bandaged; all CTs removedLUNGS: Clear bilaterally with normal respiratory effort.HEART: RRR; II/ LUIS at SBABDOMEN: Soft, non-tender, no organomegaly, no masses noted.MUSCULOSKELETAL: No deformity, no scoliosis noted of thoracic or lumbar spine, joint ROM grossly normal, normal gait and station.EXTREMITIES: No clubbing, no cyanosis, no edema.NEUROLOGICAL: No focal deficits, cranial nerves II-XII grossly intact, normal sensation, normal reflexes, normal coordination, normal muscle strength, normal tone.PULSES: Pulses normal in all extremities. -- DATA -- MEDICATIONS METOPROLOL SUCCINATE 12.5 MG PO DAILYIPRATROPIUM BROMIDE 0.5 MG NEB [id number] 20 MG PO QAMNITROGLYCERIN 0.4 MG SL Q5M PRNONDANSETRON HCL/PF 4 MG IV Q6H PRNmethocarbamoL 500 MG PO TIDKETOTIFEN FUMARATE 1 DROP EACH EYE BID PRNMAG HYDROX/AL HYDROX/SIMETH 30 ML PO Q6H PRNtraMADol HCL 50 MG PO BID (PRN)ATORVASTATIN CALCIUM 80 MG PO BEDTIMEACETAMINOPHEN 650 MG PO Q4H PRNAPIXABAN 5 MG PO BIDAMIODARONE HCL 200 MG PO BIDDEXTROSE 50%-WATER 25 ML IV ASDIR PRNDOCUSATE SODIUM 200 MG PO DAILYclopidogreL 75 MG PO DAILYbisacodyL 10 MG RECTAL ASDIR PRNGLUCAGON 1 MG IM ASDIR PRNFERROUS SULFATE 325 MG PO DAILYCYANOCOBALAMIN 500 MCG PO DAILY LABS BASIC METABOLIC PANEL (08/22/23 05:20)SODIUM 142POTASSIUM 4.1CHLORIDE 103CARBON DIOXIDE 34H HGLUCOSE 117H HBLOOD UREA NITROGEN 26H HGLOMERULAR FILTRATION RATE >=60 max estimateCREATININE 1.00CALCIUM 8.2 L CBC W/AUTO DIFF (08/22/23 05:20)WHITE BLOOD CELL 12.3H HRED BLOOD CELL 2.80 LHEMOGLOBIN 8.7L LHEMATOCRIT 27.6L LMEAN CELL VOLUME 98.6 HMEAN CELL HGB 31.1 HMEAN CELL HGB CONCENTRATION 31.5 LRED CELL DISTRIBUTION WIDTH 22.5 HPLATELET COUNT 317MEAN PLATELET VOLUME 9.9NEUTROPHIL % 78.5 HLYMPHOCYTE % 8.4 L MONOCYTE % 8.1EOSINOPHIL % 3.7BASOPHIL % 0.3NEUTROPHIL # 9.62 HLYMPHOCYTE # 1.03MONOCYTE # 1.00 HEOSINOPHIL # 0.46 HBASOPHIL # 0.04 -- QUALITY -- -MEDICATIONS- - I attest that the foregoing medication list in the medical record is true,accurate, and complete to the best of my knowledge. -- ATTESTATION -- CARE ACTIVITIES / CARE COORDINATION: - I have reviewed the history and repeated the dee elements - I have seen and examined this patient - I have reviewed the progress in the clinical course since the lastexamination - I have discussed the patient's condition with other members of the care team Signed in PatientKeeper by Tony Gautam MD on 08/22/23 at 15:42 at 1542ATTENTION EDITS and/or ADDENDA must be made in Patient Keeper for this note. Edits and ammendments created in [employer] are not visible in Patient Keeper or the legal medical record (HPF). [facility] #: [id number] OF REPORTPRProgress [id number]:36:00P.[id number] ailable for patient [id number]:43:02 [facility] 2023-08-22 08:44:00 [id number]/+[id number] +[id number]:44:00 [facility] ([facility]) Cardiology Progress Notes REPORT #: [id number] REPORT STATUS: Signed DATE: 08/22/23 TIME: 843 PATIENT: CHARLIE HART UNIT #: [id number] #: [id number] ROOM #: P.0418 BED: A : 35 AGE: 88 SEX: M ATTEND: Tony Gautam MD ADM AUTHOR: Annette Chow ATTENTION EDITS and/or ADDENDA must be made in Patient Keeper for this note. Edits and ammendments created in [employer] are not visible in Patient Keeper or the legal medical record (HPF). -- CO-SIGNATURE -- COMMENTS:The patient was seen on rounds with PHILIPPE Prabhakar. The patient has no complaints Examination demonstrates normal heart sounds and clear lung stanley. Impression and plan The patient is an 88-year-old gentleman with coronary artery disease and an EFbetween 40 to 50% from the outside records with anterior hypokinesis who wastransferred here for possible bypass surgery.Status post three-vessel bypass surgery.Continue aspirin and atorvastatin. On low-dose and dual antiplatelet therapy.Continue amiodarone drip and transition to oral amiodarone 200 mg twice daily.Continue with aggressive occupational and physical therapy.Echocardiogram is normal. Signed in PatientKeeper by GINO DENG MD on 09/06/23 at 14:03 -- ASSESSMENT AND PLAN -- PROBLEMS: 1: Multiple vessel coronary artery diseaseA/P: The patient is an 88-year-old gentleman (patient of Dr. Deyvi Celis) hasa PMHx of hypertension, pulmonary hypertension, NICMP, HFrEF (EF 40 to 50%),hyperlipidemia, BPH, vitamin B12 deficiency, PPM placement (11/2021). Hedeveloped recurrent chest pain, suggestive of angina, and presented at [facility] emergency room on 08/05/22 for further evaluation and management. He wasruled in NSTEMI, started on heparin drip and transferred to [facility]. He wasobserved and pain resolved on medical therapy (per records). He was discharged.He was seen by cardiology services (Dr. Celis) as outpatient and underwentelective coronary angiogram on 08/09/22 at [facility] and showed multi-vesselcoronary artery disease, LAD (90 to 99% lesion),LCx proximal 90%, 95% obtusemarginal lesion, RCA (occluded proximal), LVEDP 12, LVEF 40%, severeanteroapical hypokinesis. He was transferred here to [facility] for consideration of CABG by Dr. João Powell. He underwent CABG x 3V (STANLEY-LAD, rSVG-RI,rSVG-OM1) on 08/13/[address] Powell. He was transferred to CVICU for post-opcare and extubated on POD0. On 08/17, doppler of left upper extremity showedpartially occlusive deep venous thrombosis in the left subclavian vein. On08/18, he underwent atrial lead extraction and new atrial lead placement by . On 08/19, he underwent RV lead removal and upgrade to BiV from DualChamber PPM by Dr. Strong. He is in CVIMU now. - S/p CABG x 3V on 08/13- On DAPT with Eliquis and clopidogrel- On atorvastatin 80mg daily and metoprolol XL 12.5mg daily- On PO furosemide 20mg daily- On PT/OT/IS- Case management following for placement, IPR vs. SNF- Cleared by CV surgery to be discharged when accepted to IPR- From cardiology standpoint the patient is stable and cleared to be dischargewhen cleared by consultants -- SUBJECTIVE -- CHIEF COMPLAINT:Severe multi-vessel coronary artery disease PATIENT NARRATIVE:Out of bed and in chair. He denies complaints today. Seen by CV surgery. Noacute events overnight. -REVIEW OF SYSTEMS- GENERAL: Negative for fever, malaise, fatigue.EYES: Negative for blurry vision. No diplopia.EARS/NOSE/THROAT: Negative for sore throat. No otalgia. No rhinorrhea.RESPIRATORY: Negative for dyspnea or wheeze. No cough.CARDIOVASCULAR: Negative for chest pain or palpitations. No extremity swelling.GASTROINTESTINAL: Negative for abdominal pain or nausea. No emesis. No diarrhea.GENITOURINARY: Negative for dysuria, frequency, or urgency. No gross hematuria.MUSCULOSKELETAL: Negative for joint stiffness, pain, or arthralgias.SKIN: Negative for rashes. No pruritus.NEUROLOGICAL: Negative for headache. No vertigo. Denies paresthesias.PSYCHIATRIC: Negative for specific complaints. -- OBJECTIVE -- VITALS (08/21 08:42 - 08/22 08:42):Temperature C: 36.9 (36.4 - 37.0)Pulse Rate 86 (82 - 112)Respiratory rate: 18 (5 - 23)Blood pressure: 124/60 (95/53 - 135/85)Blood pressure source: Monitor I/Os (08/21 07:00 - 08/22 07:00):Net -1,220Intake 480Output 1,700 -EXAM- OTHER: Constitutional: Well developed, well nourished patient, in no acute distress. Derm/Integumentary: Warm and dry with no rashes, sores, or lesions. HEENT: Eyes-sclera clear and white, symmetrical w/ no lag. ENT - Palate and gums pink, mucosa moist, no pallor/cyanosis. Neck: supple with no masses, no thyromegaly, No JVD. Respiratory: Clear to auscultation. Chest: Median sternotomy intact without drainage Heart: S1S2+, Regular Rate and Rhythm, No murmurs, rubs, or gallops. Gastrointestinal: + Bowel Sounds all quadrants. Soft, nontender with no masses or organomegaly; No HJR. Musculoskeletal: Equal strength in all extremities. No weakness. Neurology: Alert and oriented X 3. Calm, cooperative affect. No focal deficits. Extremities: + peripheral pulses. No clubbing, cyanosis. No lower extremity edema. -- DATA -- MEDICATIONS METOPROLOL SUCCINATE 12.5 MG PO DAILYIPRATROPIUM BROMIDE 0.5 MG NEB [id number] 20 MG PO QAMNITROGLYCERIN 0.4 MG SL Q5M PRNONDANSETRON HCL/PF 4 MG IV Q6H PRNmethocarbamoL 500 MG PO TIDKETOTIFEN FUMARATE 1 DROP EACH EYE BID PRNMAG HYDROX/AL HYDROX/SIMETH 30 ML PO Q6H PRNtraMADol HCL 50 MG PO BID (PRN)ATORVASTATIN CALCIUM 80 MG PO BEDTIMEACETAMINOPHEN 650 MG PO Q4H PRNAPIXABAN 5 MG PO BIDAMIODARONE HCL 200 MG PO BIDDEXTROSE 50%-WATER 25 ML IV ASDIR PRNDOCUSATE SODIUM 200 MG PO DAILYclopidogreL 75 MG PO DAILYbisacodyL 10 MG RECTAL ASDIR PRNGLUCAGON 1 MG IM ASDIR PRNFERROUS SULFATE 325 MG PO DAILYCYANOCOBALAMIN 500 MCG PO DAILY LABS BASIC METABOLIC PANEL (08/22/23 05:20)SODIUM 142POTASSIUM 4.1CHLORIDE 103CARBON DIOXIDE 34H HGLUCOSE 117H HBLOOD UREA NITROGEN 26H HGLOMERULAR FILTRATION RATE >=60 max estimateCREATININE 1.00 CALCIUM 8.2 L CBC W/AUTO DIFF (08/22/23 05:20)WHITE BLOOD CELL 12.3H HRED BLOOD CELL 2.80 LHEMOGLOBIN 8.7L LHEMATOCRIT 27.6L LMEAN CELL VOLUME 98.6 HMEAN CELL HGB 31.1 HMEAN CELL HGB CONCENTRATION 31.5 LRED CELL DISTRIBUTION WIDTH 22.5 HPLATELET COUNT 317MEAN PLATELET VOLUME 9.9NEUTROPHIL % 78.5 HLYMPHOCYTE % 8.4 LMONOCYTE % 8.1EOSINOPHIL % 3.7BASOPHIL % 0.3NEUTROPHIL # 9.62 HLYMPHOCYTE # 1.03MONOCYTE # 1.00 HEOSINOPHIL # 0.46 HBASOPHIL # 0.04 -- ATTESTATION -- CARE ACTIVITIES / CARE COORDINATION: - I have reviewed the history and repeated the dee elements - I have seen and examined this patient - I have reviewed the progress in the clinical course since the lastexamination - I have discussed the patient's condition with other members of the care team ADDITIONAL DETAIL:Plan of care discussed with Dr. Gino Deng Signed in PatientKeeper by ANNETTE CHOW on 08/22/23 at 16:35 Cosigned by GINO DENG MD on 09/06/23 at 14:03 at 1403 at 1403ATTENTION EDITS and/or ADDENDA must be made in Patient Keeper for this note. Edits and ammendments created in [employer] are not visible in Patient Keeper or the legal medical record (HPF). RPT #: [id number] OF REPORTPRProgress [id number]:44:00P.[id number] ailable for patient [id number]:14:02 [facility] 2023-08-21 10:28:00 [id number]/[id number]+[id number] [id number]62-52-82G40:28:00 [facility] ([facility]) Hospitalist Progress Note REPORT #: [id number] REPORT STATUS: Signed DATE: 08/21/23 TIME: 1028 PATIENT: CHARLIE HART UNIT #: [id number] #: [id number] ROOM #: P.0418 BED: A : 35 AGE: 88 SEX: M ATTEND: Tony Gautam MD ADM AUTHOR: Tony Gautam MD ATTENTION EDITS and/or ADDENDA must be made in Patient Keeper for this note. Edits and ammendments created in [employer] are not visible in Patient Keeper or the legal medical record (HPF). -- ASSESSMENT AND PLAN -- GENERAL ASSESSMENT: ASSESSMENT AND PLAN: 1. Recent non-ST segment elevation myocardial infarction, around July.S/p coronary angiogram 08/09 showing multivessel coronary artery disease,not amenable to percutaneous coronary intervention.LAD 90 to 99% lesion, left circumflex proximal 90%, 95% obtuse marginal lesion;Occluded proximal RCA. Left ventricular end-diastolic pressure 12;Left ventricular ejection fraction 40%, severe anteroapical hypokinesis.The patient is being admitted to [facility] for higher level of care.Given his multiple comorbidities, coronary intervention is being decided upon,percutaneous versus surgical.Optimized statin dose, continue aspirin and beta-blockers.Plavix was withheld only from 08/08.the patient underwent CABG x [address] Powell 08/13/22. 2. Hypertension continue metoprolol. 3. Hyperlipidemia. Increased statins to high-dose for now. 4. Pulmonary hypertension 5. Benign prostatic hyperplasia. 6. 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 7. Chronic neck pain. Continue home dose of tramadol. 8. PAF, periop, amiodarone. 9. Lactic acidosis, related to surgery. 10. Acute surgical blood loss anemia.2 units PRBC and 1 unit FFP transfused 08/13. 11. Thrombocytopenia, noncritical. 12. Acute debility.PT following. 13. S/P Atrial lead extraction and new atrial lead placement by Dr Dilshad Strong08/18/23.13a. s/p RV lead revision and upgrade to BiV pacemaker, 08/19/[address] Casanova. ADDITIONAL COMMENTS:s/p CABG by Dr. João Powell 08/13/23.s/p Atrial lead extraction and new atrial lead placement 08/18/23s/p RV lead revision and upgrade to BiV pacemaker, 08/19/[address] Dilshad Parnell.CV IMU status 08/20/2023. -- SUBJECTIVE -- HPI: This 88-year-old gentleman has a past medical history significant forhypertension, pulmonary hypertension, Nonobstructive coronary artery disease,ischemic cardiomyopathy, with a previous ejection fraction of 40 to 50%,hyperlipidemia, benign prostatic hyperplasia, vitamin B12 deficiency, Permanentpacemaker placement in November 2021. The patient was in his usual state of healthuntil recently when he developed recurrent chest pain, suggestive of angina. Hewas taken to the [place] emergency room on August 05, 2023 where he wasruled in for non-ST segment elevation myocardial infarction. He was started onheparin and transferred to [facility] where he was observed for a coupleof days and improved on medical therapy.Echocardiogram showed apical wall motion abnormalities with preserved leftventricular ejection fraction. As the patient was doing well on medicalmanagement, he was discharged from the other hospital without intervention. Hewas seen by his primary manager front office, Dr Deyvi Celis and admitted forselective coronary angiogram on August 09, 2023 to [facility].This showed multivessel coronary artery disease, LAD 90 to 99% lesion, leftcircumflex proximal 90%, 95% obtuse marginal lesion; Occluded proximal RCA.Left ventricular end-diastolic pressure 12; Left ventricular ejection urriicrl96%, severe anteroapical hypokinesis. He has been transferred to [facility] for consideration of CABG by Dr. João Powell. PATIENT NARRATIVE: 08/10: The patient denies any chest pain or shortness of breath at this time.Denies any headache or dizziness.No nausea vomiting.labs pending.echo at the OSH shows:1. Left ventricle: The cavity size is normal. Wall thickness is normal.Systolic function is normal. The estimated ejection fraction is 50-54%.Regional wall motion abnormalities cannot be excluded. Grade I diastolicdysfunction.2. Atrial septum: No defect or patent foramen ovale is identified. He has been seen by the heart team.Given his multiple comorbidities, coronary intervention is being decided upon,percutaneous versus surgical.Plan of care discussed with the patient and his daughter, Elizabeth, at bedside. 08/11: Repeat echo over here shows: 1. Left ventricle: The cavity size is normal. Wall thickness is normal.Systolic function is moderately reduced. The estimated ejection fractionis 35-39%. Wall motion is normal; there are no regional wall motionabnormalities. Grade I diastolic dysfunction.2. Aortic valve: The findings are consistent with moderate to severe stenosis.The mean systolic gradient is 15 mm Hg. The valve area is 0.98 cm 2.3. Mitral valve: The annulus is mildly to moderately calcified.Possible low flow low gradient aortic stenosis. Considerfurther evaluation with dobutamine stress echocardiogram.Patient is being evaluated by the consultants.Patient has expressed that the he would prefer getting surgery if his heartcould be taken care of percutaneously.Await final recommendations. 08/12: No acute events overnight.No chest pain or shortness of breath.After extensive discussions, the final recommendations are for CABG by Dr. Young 08/13: the patient underwent CABG x [address] Powell.Intra-op, patient went into AFib, and blood pressure dropped,so was re-explored, and eventually cardioverted. on 0.03mcg of Epinephrine.Received 2 units of PRBC, and 1 unit of FFP. 08/14: Extubated postoperative day 0.On 2 L of oxygen via nasal cannula.K low, replete. 08/15: All chest tubes removed.IJ removed.On 4 L of oxygen via nasal cannula.Walked about 25 feet with physical therapy.No bowel movement as yet.Plans for right atrial lead revision week of 08/[address] Owens 08/16: Reports that he is feeling well continues to remain on 2 L nasal cannula.S/p NADIRA today. 08/17: Patient was evaluated bedside, reports that he is feeling well. Continuesto remain on oxygen 2 L nasal cannula satting 100%. He is aware of possiblepacemaker lead revision to be done tomorrow. 08/18: underwent Atrial lead extraction and new atrial lead placement by Carlee Strnog,On room air.Feels well.Progressing well. 08/19: On 2 L of oxygen via nasal cannula.underwent RV lead revision and upgrade to BiV pacemaker,by Dr Dilshad Strong 08/20: Oral intake is not the best but he is taking supplements.Walked about 30 feet with physical therapy.On 3 L of oxygen via nasal cannula.Transferred to CV IMU for continuity of care. 08/21: On 2 L of oxygen via nasal cannula.No significant chest pain or shortness of breath. Walked about 120 feet with physical therapy. -REVIEW OF SYSTEMS- GENERAL: as above -- OBJECTIVE -- VITALS (08/20 10:28 - 08/21 10:28):Temperature F: 98.1 (98.0 - 98.1)Temperature C: 36.4 (36.3 - 36.6)Temperature source: OralPulse Rate 85 (85 - 101)Respiratory rate: 18 (7 - 36)Blood pressure: 105/58 (101/56 - 140/77)Blood pressure source: Monitor I/Os (08/20 07:00 - 08/21 07:00):Net 841Intake 1,891Output 1,050 -EXAM- GENERAL: Well developed, well nourished, in no apparent distress.HEAD: Normocephalic, atraumatic.EYES: PERRL, EOM intact, conjunctiva and sclera clear, without nystagmus, lids normal.EARS: markedly diminished hearing.NOSE: No deformity, no discharge, no inflammation, no lesions.MOUTH: Oropharynx without deformities or lesions, normal mucosa..NECK: No masses, no thyromegaly, no abnormal cervical nodes, trachea midline.CHEST: NANCY PPM, bandaged; all CTs removedLUNGS: Clear bilaterally with normal respiratory effort.HEART: RRR; II/ LUIS at LLSBABDOMEN: Soft, non-tender, no organomegaly, no masses noted.MUSCULOSKELETAL: No deformity, no scoliosis noted of thoracic or lumbar spine, joint ROM grossly normal, normal gait and station.EXTREMITIES: No clubbing, no cyanosis, no edema.NEUROLOGICAL: No focal deficits, cranial nerves II-XII grossly intact, normal sensation, normal reflexes, normal coordination, normal muscle strength, normal tone.PULSES: Pulses normal in all extremities. -- DATA -- MEDICATIONS MAG HYDROX/AL HYDROX/SIMETH 30 ML PO Q6H PRNtraMADol HCL 50 MG PO BID (PRN)ATORVASTATIN CALCIUM 80 MG PO BEDTIMEAPIXABAN 5 MG PO BIDDOCUSATE SODIUM 200 MG PO DAILY clopidogreL 75 MG PO DAILYbisacodyL 10 MG RECTAL ASDIR PRNGLUCAGON 1 MG IM ASDIR PRNCYANOCOBALAMIN 500 MCG PO DAILYMETOPROLOL SUCCINATE 12.5 MG PO DAILYIPRATROPIUM BROMIDE 0.5 MG NEB [id number] 0.4 MG SL Q5M PRNONDANSETRON HCL/PF 4 MG IV Q6H PRNKETOTIFEN FUMARATE 1 DROP EACH EYE BID PRNACETAMINOPHEN 650 MG PO Q4H PRNAMIODARONE HCL 200 MG PO BIDDEXTROSE 50%-WATER 25 ML IV ASDIR PRNFERROUS SULFATE 325 MG PO DAILYFUROSEMIDE 40 MG PO QAM LABS GLU BED (08/20/23 20:41)GLUBED 85 -- QUALITY -- -MEDICATIONS- - I attest that the foregoing medication list in the medical record is true,accurate, and complete to the best of my knowledge. -- ATTESTATION -- CARE ACTIVITIES / CARE COORDINATION: - I have reviewed the history and repeated the dee elements - I have seen and examined this patient - I have reviewed the progress in the clinical course since the lastexamination - I have discussed the patient's condition with other members of the care team Signed in PatientKeeper by Tony Gautam MD on 08/22/23 at 15:36 at 1536ATTENTION EDITS and/or ADDENDA must be made in Patient Keeper for this note. Edits and ammendments created in [facility] are not visible in Patient Keeper or the legal medical record (HPF). RPT #: [id number] OF REPORTPRProgress [id number]:28:00P.VL-[id number] ailable for patient szpyBALJKUPMSVCPKJ9839-86-90Z45:37:13 [facility] 2023-08-21 07:54:00 [id number] oKfnKVInM/16d7lIZ+1m1IIafOBYM DeZDTlh565m6+lbiUZalZByrkIX5762-00-27B69:54:00 [facility] ([facility]) Cardiology Progress Notes REPORT #: [id number] REPORT STATUS: Signed DATE: 08/21/23 TIME: 0754 PATIENT: CHARLIE HART UNIT #: [id number] #: [id number] ROOM #: [facility] BED: A : 35 AGE: 88 SEX: M ATTEND: Tony Gautam MD ADM AUTHOR: Nj Oliva DO CF1 ATTENTION EDITS and/or ADDENDA must be made in Patient Keeper for this note. Edits and ammendments created in [facility] are not visible in Patient Keeper or the legal medical record (HPF). -- CO-SIGNATURE -- COMMENTS:The patient was seen on rounds with Nj Oliva MD The patient has no complaints Examination demonstrates normal heart sounds and clear lung stanley. Impression and plan The patient is an 88-year-old gentleman with coronary artery disease and an EFbetween 40 to 50% from the outside records with anterior hypokinesis who wastransferred here for possible bypass surgery.Status post three-vessel bypass surgery.Continue aspirin and atorvastatin. If blood pressure improves we will startbeta-blockade. Start dual antiplatelet therapy.Continue amiodarone drip and transition to oral amiodarone 200 mg twice daily.Status post lead revision and upgrade to BiV dual-chamber pacemaker.Continue with aggressive occupational and physical therapy.Echocardiogram is normal. Signed in PatientKeeper by GINO DENG MD on 09/06/23 at 14:01 -- ASSESSMENT AND PLAN -- HOSPITAL COURSE TO DATE:08/13: CABG X [address] Gil: Lt SC-Cephalic vein DVT on LUE Venous doppler: Replacement of PPM A-lead by Dr. Strong08/19: RV lead removal and upgrade to BiV Dual chamber PPM by Dr. Strong. GENERAL ASSESSMENT:Mr. Hart is an 88 year-old male with past medical history of hypertension,hyperlipidemia, coronary artery disease, carotid disease, presence of permanentpacemaker (2021), pulmonary hypertension, and ischemic cardiomyopathy with previous ejection fraction 40-50% who was transferred to the CVICU from the [facility] 08/13 after CABG x 3 (STANLEY-LAD, rSVG to OM1, rSVG-RI) by Dr. Powell. PROBLEMS: 1: CAD (coronary artery disease)A/P: - Recent TTE: LVEF 50-54%. Regional wall motion abnormalities cannot beexcluded. Grade I diastolic dysfunction. No PFO.- S/P CABG x 3v 08/13/2022- cont to monitor closely on tele- Continue Asa 81 mg , Plavix 75 mg po daily, Atorvastatin 80 mg po daily.- Encourage PT/OT/IS- monitor on tele- dispo per CT surgery team 2: AfibA/P: - [id number]-Xebh >3- History of Atrial fibrillation s/p PPM.- Intra operative Atrial fibrillation with RVR, cardioverted back to sinus, PPMinterrogated without active issue, on oral Amiodarone 200 mg BID.- PPM interrogated- EP consulted- s/p 08/18: Replacement of PPM A-lead by Dr. Strong- s/p 08/19: RV lead removal and upgrade to BiV Dual chamber PPM by Dr. Strong. -- SUBJECTIVE -- HPI:Mr. 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 He was taken to the [place] emergency room on August 05, 2023where he was ruled in for non-ST segment elevation myocardial infarction. Hewas started on heparin and transferred to [facility] where he wasobserved for a couple of days and improved on medical therapy. Echocardiogramshowed apical wall motion abnormalities with preserved left ventricularejection fraction. As the patient was doing well on medical management, he wasdischarged from the other hospital without intervention. He was seen by hisprimary manager front office, Dr Deyvi Celis and admitted for selective coronaryangiogram on August 09, 2023 to [facility]. This showed multivessel coronaryartery disease, LAD 90 to 99% lesion, left circumflex proximal 90%, 95% obtusemarginal lesion; Occluded proximal RCA. Left ventricular end-diastolic iuhdztql65; Left ventricular ejection fraction 40%, severe anteroapical hypokinesis. [facility] of CABG by Dr.Eyal Powell. When seen in the room the patient is awake alert and oriented andverbalizes the above. He denies any chest pain or shortness of breath at thistime. Denies any headache or dizziness. No nausea vomiting. PATIENT NARRATIVE:NOHEMI this AM. CASSANDRA overnight. No new complaints. Tele: NSR 87bpm -- OBJECTIVE -- VITALS (08/20 07:54 - 08/21 07:54):Temperature F: 98.1 (98.0 - 98.2)Temperature C: 36.4 (36.3 - 36.6)Temperature source: OralPulse Rate 85 (85 - 101)Respiratory rate: 18 (7 - 36)Blood pressure: 105/58 (101/56 - 141/77) Blood pressure source: Monitor I/Os (08/20 07:00 - 08/21 07:00):Net 841Intake 1,891Output 1,050 -EXAM- GENERAL: Well developed, well nourished, in no apparent distress.HEAD: Normocephalic, atraumatic.EYES: PERRL, EOM intact, conjunctiva and sclera clearEARS: markedly diminished hearing.NOSE: No deformity, no dischargeMOUTH: Oropharynx without deformities or lesions, normal mucosa.NECK: No masses, no thyromegalyCHEST: NANCY PPMLUNGS: Clear bilaterally with normal respiratory effort.HEART: RRR; II/ LUIS at LLSBABDOMEN: Soft, non-tender, no organomegaly, no masses noted.EXTREMITIES: No clubbing, no cyanosis, no edema.NEUROLOGICAL: No focal deficits, cranial nerves II-XII grossly intactPULSES: Pulses normal in all extremities. -- DATA -- MEDICATIONS MAG HYDROX/AL HYDROX/SIMETH 30 ML PO Q6H PRNtraMADol HCL 50 MG PO BID (PRN)ATORVASTATIN CALCIUM 80 MG PO BEDTIMEAPIXABAN 5 MG PO BIDDOCUSATE SODIUM 200 MG PO DAILYclopidogreL 75 MG PO DAILYbisacodyL 10 MG RECTAL ASDIR PRNGLUCAGON 1 MG IM ASDIR PRNCYANOCOBALAMIN 500 MCG PO DAILYMETOPROLOL SUCCINATE 12.5 MG PO DAILYIPRATROPIUM BROMIDE 0.5 MG NEB [id number] 0.4 MG SL Q5M PRNONDANSETRON HCL/PF 4 MG IV Q6H PRNKETOTIFEN FUMARATE 1 DROP EACH EYE BID PRNACETAMINOPHEN 650 MG PO Q4H PRNAMIODARONE HCL 200 MG PO BIDDEXTROSE 50%-WATER 25 ML IV ASDIR PRNFERROUS SULFATE 325 MG PO DAILYFUROSEMIDE 40 MG PO QAM LABS GLU BED (08/20/23 20:41)GLUBED 85 Signed in PatientKeeper by Nj Oliva DO CFTriston on 08/21/23 at 12:14 Cosigned by GINO DENG MD on 09/06/23 at 14:01 at 1401 at 1401ATTENTION EDITS and/or ADDENDA must be made in Patient Keeper for this note. Edits and ammendments created in [facility] are not visible in Patient Keeper or the legal medical record (HPF). RPT #: [id number] OF REPORTPRProgress [id number]:54:00P.TK-[id number] ailable for patient vxzpBRPKVGZOKJKSCC3908-62-62U94:13:59 [facility] 2023-08-20 15:13:00 [id number] hoA3DfhzwoB4+PhzW4BqOfcQZWCMn 4R/XqTosUydGF6miPrAVClAFZ4n1368-77-03O96:13:00 [facility] ([facility]) Cardiology Progress Notes REPORT #: [id number] REPORT STATUS: Signed DATE: 08/20/23 TIME: 151 PATIENT: CHARLIE HART UNIT #: [id number] #: [id number] ROOM #: P.0418 BED: A : 35 AGE: 88 SEX: M ATTEND: Tony Gautam MD ADM AUTHOR: Trina Marquez MD 1 ATTENTION EDITS and/or ADDENDA must be made in Patient Keeper for this note. Edits and ammendments created in [facility] are not visible in Patient Keeper or the legal medical record (HPF). -- CO-SIGNATURE -- COMMENTS:The patient was seen on rounds with Trina Marquez MD The patient has no complaints Examination demonstrates normal heart sounds and clear lung stanley. Impression and plan The patient is an 88-year-old gentleman with coronary artery disease and an EFbetween 40 to 50% from the outside records with anterior hypokinesis who wastransferred here for possible bypass surgery.Status post three-vessel bypass surgery.Continue aspirin and atorvastatin. If blood pressure improves we will startbeta-blockade. Start dual antiplatelet therapy.Continue amiodarone drip and transition to oral amiodarone 200 mg twice daily.Will need a lead revision of the pacemakerContinue with aggressive occupational and physical therapy. Signed in PatientKeeper by GINO DENG MD on 09/06/23 at 14:00 -- ASSESSMENT AND PLAN -- GENERAL ASSESSMENT:88 years old gentleman with past medical history of CAD s/p CABG X 4, improvingsignificantly in the post operative period, working with the physical therapy. PROBLEMS: 1: Coronary artery diseaseA/P: S/P CABG x 3, POD # 7Chest tubes removed.Continue Asa 81 mg , Plavix 75 mg po daily, Atorvastatin 80 mg po daily.Encourage PT/OT evaluation. 2: Afib A/P: History of Atrial fibrillation s/p PPM.Intra operative Atrial fibrillation with RVR, cardioverted back to sinus, PPMinterrogated without active issue, on oral Amiodarone 200 mg BID.PPM interrogation completed. EP services following, lead misplacement, plan torevise the lead this week. -- SUBJECTIVE -- CHIEF COMPLAINT:Follow up on CABG patient . PATIENT NARRATIVE:Pt sitting up in chair in no distress.Denied any chest pain shortness of breath or palpitations. -- OBJECTIVE -- VITALS (08/19 15:13 - 08/20 15:13):Temperature F: 98.2 (98.2 - 98.3)Temperature source: OralPulse Rate 88 (88 - 106)Respiratory rate: 15 (6 - 29)Blood pressure: 125/59 (96/56 - 171/81)Blood pressure source: Monitor I/Os (08/19 07:00 - 08/20 07:00):Net -510.00Intake 300.00Output 810 -EXAM- GENERAL: Well developed, well nourished, in no apparent distress.HEAD: Normocephalic, atraumatic.NOSE: No deformity, no discharge, no inflammation, no lesions. Nasal cannula in place.MOUTH: Oropharynx without deformities or lesions, normal mucosa.NECK: No masses, no thyromegaly, no abnormal cervical nodes, trachea midline.CHEST: Grossly normal appearance. Midline sternotomy incision intact.LUNGS: Clear bilaterally with normal respiratory effort.HEART: Regular rate and rhythm, paced rhythm, permanent pacemaker in place.ABDOMEN: Soft, non-tender, no organomegaly, no masses noted.MUSCULOSKELETAL: No deformity, no scoliosis noted of thoracic or lumbar spine, joint ROM grossly normal, normal gait and station.EXTREMITIES: No clubbing, no cyanosis, no edema.NEUROLOGICAL: No focal deficits, cranial nerves II-XII grossly intact, normal sensation, normal reflexes, normal coordination, normal muscle strength, normal tone. -- DATA -- MEDICATIONS MAG HYDROX/AL HYDROX/SIMETH 30 ML PO Q6H PRNtraMADol HCL 50 MG PO BID (PRN)ATORVASTATIN CALCIUM 80 MG PO BEDTIMEAPIXABAN 5 MG PO BIDDOCUSATE SODIUM 200 MG PO DAILYclopidogreL 75 MG PO DAILYbisacodyL 10 MG RECTAL ASDIR PRNGLUCAGON 1 MG IM ASDIR PRNCYANOCOBALAMIN 500 MCG PO DAILYMETOPROLOL SUCCINATE 12.5 MG PO DAILYIPRATROPIUM BROMIDE 0.5 MG NEB [id number] 0.4 MG SL Q5M PRNONDANSETRON HCL/PF 4 MG IV Q6H PRNKETOTIFEN FUMARATE 1 DROP EACH EYE BID PRNACETAMINOPHEN 650 MG PO Q4H PRNAMIODARONE HCL 200 MG PO BIDDEXTROSE 50%-WATER 25 ML IV ASDIR PRNFERROUS SULFATE 325 MG PO DAILYFUROSEMIDE 40 MG PO QAM LABS BASIC METABOLIC PANEL (08/20/23 02:54)SODIUM 143POTASSIUM 4.1CHLORIDE 105CARBON DIOXIDE 30GLUCOSE 102BLOOD UREA NITROGEN 29H HGLOMERULAR FILTRATION RATE >=60 max estimateCREATININE 1.10CALCIUM 8.0 L MAG (08/20/23 02:54)MAGNESIUM 2.0 PHOS (08/20/23 02:54)PHOSPHOROUS 3.9 CBC W/AUTO DIFF (08/20/23 02:54)WHITE BLOOD CELL 11.1H HRED BLOOD CELL 2.90 LHEMOGLOBIN 9.2L LHEMATOCRIT 28.2L LMEAN CELL VOLUME 97.2 HMEAN CELL HGB 31.7 HMEAN CELL HGB CONCENTRATION 32.6 LRED CELL DISTRIBUTION WIDTH 22.4 HPLATELET COUNT 265MEAN PLATELET VOLUME 9.7NEUTROPHIL % 75.3 HLYMPHOCYTE % 9.2 LMONOCYTE % 10.5 HEOSINOPHIL % 3.2BASOPHIL % 0.4NEUTROPHIL # 8.37 HLYMPHOCYTE # 1.02MONOCYTE # 1.16 HEOSINOPHIL # 0.36BASOPHIL # 0.04 Signed in PatientKeeper by TRINA MARQUEZ MD1 on 08/22/23 at 15:07 Cosigned by GINO DENG MD on 09/06/23 at 14:00 at 1400 at 1400ATTENTION EDITS and/or ADDENDA must be made in Patient Keeper for this note. Edits and ammendments created in [facility] are not visible in Patient Keeper or the legal medical record (HPF). RPT #: [id number] OF REPORTPRProgress ulxy0685-08-72B80:13:00P.SO-[id number] ailable for patient iwxzSGVWMETRHLLVOA4693-05-85E94:13:57 [facility] 2023-08-20 13:57:00 [id number] mmKzexZBM4SAoMe/U3aKhngZvCxyr W7MK/XQxhstuTefuEKV0jegJUzB5954-83-20X13:57:00 [facility] ([facility]) Intensive Care Progress Note REPORT #: [id number] REPORT STATUS: Signed DATE: 08/20/23 TIME: 1357 PATIENT: CHARLIE HART UNIT #: [id number] #: [id number] ROOM #: P.0311 BED: 1 : 35 AGE: 88 SEX: M ATTEND: Tony Gautam MD ADM AUTHOR: Chikis Burdick MD ATTENTION EDITS and/or ADDENDA must be made in Patient Keeper for this note. Edits and ammendments created in [facility] are not visible in Patient Keeper or the legal medical record (HPF). -- ASSESSMENT AND PLAN -- HOSPITAL COURSE TO DATE:Mr. Hart is an 88 year-old male with past medical history of hypertension,hyperlipidemia, coronary artery disease, carotid disease, presence of permanentpacemaker (2021), pulmonary hypertension, and ischemic cardiomyopathy withprevious ejection fraction 40-50% who was transferred to the CVICU from the [facility] 08/13 after CABG x 3 (STANLEY-LAD, rSVG to OM1, rSVG-RI) by Dr. Powell. 08/13: CABG X [address] Gil: Lt SC-Cephalic vein DVT on LUE Venous doppler: Replacement of PPM A-lead by Dr. Strong08/19: RV lead removal and upgrade to BiV Dual chamber PPM by Dr. Strong. GENERAL ASSESSMENT:I have examined him, reviewed his EMR information and data and discussed hisplan of care with the other clinical and ancillary services. Assessment and Plan ICU AnalgesiaAcute postop pain- On Acetaminophen, Tramadol- Serially reassessing Symptomatic mv CADS/p CABG x 3 as aboveCardiogenic ShockVasoplegic ShockH/o HTNH/o Chronotropic incompetenceH/o Dual lead PPMH/o PAHPeriop Afib with RVRAcute Lt SC Vein DVTPPM RA-lead failure s/p lead replacement as abovePPM RV-lead failure s/p new lead and upgrade to BiV PPM as above- Paced rythm and adequate BP- Clean median sternotomy incision wound- Adequate perfusion indices- On Plavix, Statin, Apixaban- On Amiodarone- Serially reassessing with exam, perfusion indices - D/w Drs. Powell and Abundio who are following Acute resp insufficiency- Adequate spaO2 on LFNC- pCXR with chronic changes and mild PVC.- On IS, pulm hygiene, breathing Rx, OOB to chair, ambulation, wean FiO2,diuresis- Serially reassessing with exam, imaging and ABGs Nutrition- On Regular diet- On bowel regimen Acute prerenal azotemiaFluid overload- Adequate UO, lytes on po Lasix- Serially reassessing with UO, lytes, fluid status Acute blood loss anemiaThrombocytopenia not present on admission- Adequate H/h, Plats and equilibrating- Serially reassessing Prophylaxis- Apixaban- SCDs Medications reviewed with the Clinical Pharmacist Full Code per , daughterHas Advanced Care Guidelines with daughter as MPOA OK to transfer to [facility]. Transition of care discussed with Dr. Gautam -- OBJECTIVE -- VITALS (08/19 13:57 - 08/20 13:57):Temperature F: 98.2 (98.2 - 98.3)Temperature source: OralPulse Rate 88 (88 - 106)Respiratory rate: 15 (6 - 29)Blood pressure: 125/59 (91/56 - 171/81)Blood pressure source: Monitor I/Os (08/19 07:00 - 08/20 07:00):Net -510.00Intake 300.00Output 810 -- DATA -- MEDICATIONS POTASSIUM CHLORIDE 20 MEQ IV ASDIR (PRN)MAG HYDROX/AL HYDROX/SIMETH 30 ML PO Q6H PRNtraMADol HCL 50 MG PO BID (PRN)ATORVASTATIN CALCIUM 80 MG PO BEDTIMEAPIXABAN 5 MG PO BIDpolyethylene glycoL 3350 1 PKT PO DAILYDOCUSATE SODIUM 200 MG PO DAILY clopidogreL 75 MG PO DAILYbisacodyL 10 MG RECTAL ASDIR PRNGLUCAGON 1 MG IM ASDIR PRNLACTULOSE 30 ML PO ASDIR PRNCYANOCOBALAMIN 500 MCG PO DAILYMETOPROLOL SUCCINATE 12.5 MG PO DAILYMAGNESIUM 1 GM IV ASDIR PRNIPRATROPIUM BROMIDE 0.5 MG NEB YII2KqwfHOAfbm HCL 0.1 MG PO Q8H PRNNITROGLYCERIN 0.4 MG SL Q5M PRNONDANSETRON HCL/PF 4 MG IV Q6H PRNLACTULOSE 30 ML PO ASDIR PRNKETOTIFEN FUMARATE 1 DROP EACH EYE BID PRNCALCIUM GLUC IN NACL, ISO-OSM 2 GM IV ASDIR PRNACETAMINOPHEN 650 MG RECTAL Q4H PRNACETAMINOPHEN 650 MG PO Q4H PRNSODIUM BICARBONATE 8.4% 50 MEQ IV .ONCE PRNAMIODARONE HCL 200 MG PO BIDDEXTROSE 50%-WATER 25 ML IV ASDIR PRNMETOPROLOL TARTRATE 5 MG IV Q6H PRNSODIUM CHLORIDE 10 mL 10 ML IV ASDIRFERROUS SULFATE 325 MG PO DAILYFUROSEMIDE 40 MG PO QAM -- ATTESTATION -- CARE ACTIVITIES / CARE COORDINATION: - I have reviewed the history and repeated the dee elements - I have seen and examined this patient - I have reviewed the progress in the clinical course since the lastexamination - I have discussed the patient's condition with other members of the care team ADDITIONAL DETAIL:[id number] Signed in PatientKeeper by Chikis Burdick MD on 08/20/23 at 14:07 at 1407ATTENTION EDITS and/or ADDENDA must be made in Patient Keeper for this note. Edits and ammendments created in [facility] are not visible in Patient Keeper or the legal medical record (HPF). RPT #: [id number] OF REPORTPRProgress [id number]:57:00P.OP-[id number] ailable for patient quyvPLTKPHSVGFGDOQ1491-69-98E05:08:17 [facility] 2023-08-20 11:41:00 [id number] osGKU+Gqo1NKqnztcqlLaBq5avji5 MYHupE5KcacO6lAJbFveVEkcfrw5877-64-20F58:41:92887 6-[address] [id number] NAME: CHARLIE HART ADMIT DATE: 08/09/23ACCOUNT NO: [id number] ROOM NO: P.0418 AGE: 88 REPORT TYPE: eELECTROCARDIOGRAM SEX: M ADMITTING PHYSICIAN: Tony Gautam MD ATTENDING PHYSICIAN: Tony Gautam MD Order:[id number] Reason : EVALU Test Date/Time Stamp:FriAug 20 2023 11:41:49Blood Pressure : / mmHGVent. Rate : 101 BPM Atrial Rate : 101 BPM P-R Int : 120 ms QRS Dur : 128 ms QT Int : 440 ms P-R-T Axes : 001 -06 196 degrees QTc Int : 570 ms Atrial-sensed ventricular-paced rhythmAbnormal ECG Confirmed by JEMAL OHARA ([id number]) on 08/22/2023 9:18:25 AM Referred By: Tony Gautam Confirmed by:JEMAL OHARA at 0918 PATIENT NAME: CHARLIE HART .[id number] AVAvailable for patient dzalHQWAYGQPONLXOG6702-62-81Z08:18:43 [facility] 2023-08-20 10:19:00 [id number] BorPd5QAAhRKNSTcC/IO/O0CGV1UA FGNZcX7VKVPO10d+6suB6V4MHPw3930-74-51F88:19:00 [facility] ([facility]) Hospitalist Progress Note REPORT #: [id number] REPORT STATUS: Signed DATE: 08/20/23 TIME: 1019 PATIENT: CHARLIE HART UNIT #: [id number] #: [id number] ROOM #: [facility] BED: A : 35 AGE: 88 SEX: M ATTEND: Tony Gautam MD ADM AUTHOR: Tony Gautam MD ATTENTION EDITS and/or ADDENDA must be made in Patient Keeper for this note. Edits and ammendments created in [facility] are not visible in Patient Keeper or the legal medical record (HPF). -- ASSESSMENT AND PLAN -- GENERAL ASSESSMENT: ASSESSMENT AND PLAN: 1. Recent non-ST segment elevation myocardial infarction, around July.S/p coronary angiogram 08/09 showing multivessel coronary artery disease,not amenable to percutaneous coronary intervention.LAD 90 to 99% lesion, left circumflex proximal 90%, 95% obtuse marginal lesion;Occluded proximal RCA. Left ventricular end-diastolic pressure 12;Left ventricular ejection fraction 40%, severe anteroapical hypokinesis.The patient is being admitted to [facility] for higher level of care.Given his multiple comorbidities, coronary intervention is being decided upon,percutaneous versus surgical.Optimized statin dose, continue aspirin and beta-blockers.Plavix was withheld only from 08/08.the patient underwent CABG x [address] Powell 08/13/22. 2. Hypertension continue metoprolol. 3. Hyperlipidemia. Increased statins to high-dose for now. 4. Pulmonary hypertension 5. Benign prostatic hyperplasia. 6. 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 7. Chronic neck pain. Continue home dose of tramadol. 8. PAF, periop, amiodarone. 9. Lactic acidosis, related to surgery. 10. Acute surgical blood loss anemia.2 units PRBC and 1 unit FFP transfused 08/13. 11. Thrombocytopenia, noncritical. 12. Acute debility.PT following. 13. S/P Atrial lead extraction and new atrial lead placement by Dr Dilshad Strong08/18/23.13a. s/p RV lead revision and upgrade to BiV pacemaker, 08/19/[address] Casanova. ADDITIONAL COMMENTS:s/p CABG by Dr. João Powell 08/13/23.s/p Atrial lead extraction and new atrial lead placement 08/18/23s/p RV lead revision and upgrade to BiV pacemaker, 08/19/[address] Dilshad Parnell. CV IMU status 08/20/2023. -- SUBJECTIVE -- HPI: This 88-year-old gentleman has a past medical history significant forhypertension, pulmonary hypertension, Nonobstructive coronary artery disease,ischemic cardiomyopathy, with a previous ejection fraction of 40 to 50%,hyperlipidemia, benign prostatic hyperplasia, vitamin B12 deficiency, Permanentpacemaker placement in November 2021. The patient was in his usual state of healthuntil recently when he developed recurrent chest pain, suggestive of angina. Hewas taken to the [place] emergency room on August 05, 2023 where he wasruled in for non-ST segment elevation myocardial infarction. He was started onheparin and transferred to [facility] where he was observed for a coupleof days and improved on medical therapy.Echocardiogram showed apical wall motion abnormalities with preserved leftventricular ejection fraction. As the patient was doing well on medicalmanagement, he was discharged from the other hospital without intervention. Hewas seen by his primary manager front office, Dr Deyvi Celis and admitted forselective coronary angiogram on August 09, 2023 to [facility].This showed multivessel coronary artery disease, LAD 90 to 99% lesion, leftcircumflex proximal 90%, 95% obtuse marginal lesion; Occluded proximal RCA.Left ventricular end-diastolic pressure 12; Left ventricular ejection almakfiu33%, severe anteroapical hypokinesis. He has been transferred to [facility] for consideration of CABG by Dr. João Powell. PATIENT NARRATIVE: 08/10: The patient denies any chest pain or shortness of breath at this time.Denies any headache or dizziness.No nausea vomiting.labs pending.echo at the OSH shows:1. Left ventricle: The cavity size is normal. Wall thickness is normal.Systolic function is normal. The estimated ejection fraction is 50-54%.Regional wall motion abnormalities cannot be excluded. Grade I diastolicdysfunction.2. Atrial septum: No defect or patent foramen ovale is identified. He has been seen by the heart team.Given his multiple comorbidities, coronary intervention is being decided upon,percutaneous versus surgical.Plan of care discussed with the patient and his daughter, Elizabeth, at bedside. 08/11: Repeat echo over here shows:1. Left ventricle: The cavity size is normal. Wall thickness is normal.Systolic function is moderately reduced. The estimated ejection fractionis 35-39%. Wall motion is normal; there are no regional wall motionabnormalities. Grade I diastolic dysfunction.2. Aortic valve: The findings are consistent with moderate to severe stenosis.The mean systolic gradient is 15 mm Hg. The valve area is 0.98 cm 2.3. Mitral valve: The annulus is mildly to moderately calcified.Possible low flow low gradient aortic stenosis. Considerfurther evaluation with dobutamine stress echocardiogram.Patient is being evaluated by the consultants.Patient has expressed that the he would prefer getting surgery if his heartcould be taken care of percutaneously.Await final recommendations. 08/12: No acute events overnight.No chest pain or shortness of breath.After extensive discussions, the final recommendations are for CABG by Dr. Young 08/13: the patient underwent CABG x [address] Powell.Intra-op, patient went into AFib, and blood pressure dropped,so was re-explored, and eventually cardioverted. on 0.03mcg of Epinephrine.Received 2 units of PRBC, and 1 unit of FFP. 08/14: Extubated postoperative day 0.On 2 L of oxygen via nasal cannula.K low, replete. 08/15: All chest tubes removed.IJ removed.On 4 L of oxygen via nasal cannula.Walked about 25 feet with physical therapy.No bowel movement as yet.Plans for right atrial lead revision week of 08/[address] Owens 08/16: Reports that he is feeling well continues to remain on 2 L nasal cannula.S/p NADIRA today. 08/17: Patient was evaluated bedside, reports that he is feeling well. Continuesto remain on oxygen 2 L nasal cannula satting 100%. He is aware of possiblepacemaker lead revision to be done tomorrow. 08/18: underwent Atrial lead extraction and new atrial lead placement by Carlee Strong,On room air.Feels well.Progressing well. 08/19: On 2 L of oxygen via nasal cannula.underwent RV lead revision and upgrade to BiV pacemaker,by Dr Dilshad Strong 08/20: Oral intake is not the best but he is taking supplements.Walked about 30 feet with physical therapy. On 3 L of oxygen via nasal cannula. Transferred to [facility] for continuity of care. -REVIEW OF SYSTEMS- GENERAL: as above -- OBJECTIVE -- VITALS (08/19 10:19 - 08/20 10:19):Temperature F: 98.2 (98.2 - 98.3)Temperature source: OralPulse Rate 88 (88 - 114)Respiratory rate: 15 (6 - 29)Blood pressure: 125/59 (91/55 - 171/81)Blood pressure source: Monitor I/Os (08/19 07:00 - 08/20 07:00):Net -510.00Intake 300.00Output 810 -EXAM- GENERAL: Well developed, well nourished, in no apparent distress.HEAD: Normocephalic, atraumatic.EYES: PERRL, EOM intact, conjunctiva and sclera clear, without nystagmus, lids normal.EARS: markedly diminished hearing.NOSE: No deformity, no discharge, no inflammation, no lesions.MOUTH: Oropharynx without deformities or lesions, normal mucosa..NECK: No masses, no thyromegaly, no abnormal cervical nodes, trachea midline.CHEST: NANCY PPM, bandaged; all CTs removedLUNGS: Clear bilaterally with normal respiratory effort.HEART: RRR; II/ LUIS at LLSBABDOMEN: Soft, non-tender, no organomegaly, no masses noted.MUSCULOSKELETAL: No deformity, no scoliosis noted of thoracic or lumbar spine, joint ROM grossly normal, normal gait and station.EXTREMITIES: No clubbing, no cyanosis, no edema.NEUROLOGICAL: No focal deficits, cranial nerves II-XII grossly intact, normal sensation, normal reflexes, normal coordination, normal muscle strength, normal tone.PULSES: Pulses normal in all extremities. -- DATA -- MEDICATIONS POTASSIUM CHLORIDE 20 MEQ IV ASDIR (PRN)MAG HYDROX/AL HYDROX/SIMETH 30 ML PO Q6H PRNtraMADol HCL 50 MG PO BID (PRN)ATORVASTATIN CALCIUM 80 MG PO BEDTIMEAPIXABAN 5 MG PO BIDpolyethylene glycoL 3350 1 PKT PO DAILYDOCUSATE SODIUM 200 MG PO DAILY clopidogreL 75 MG PO DAILYbisacodyL 10 MG RECTAL ASDIR PRNGLUCAGON 1 MG IM ASDIR PRNLACTULOSE 30 ML PO ASDIR PRNCYANOCOBALAMIN 500 MCG PO DAILYMAGNESIUM 1 GM IV ASDIR PRNIPRATROPIUM BROMIDE 0.5 MG NEB [id number] HCL 0.1 MG PO Q8H PRNNITROGLYCERIN 0.4 MG SL Q5M PRNONDANSETRON HCL/PF 4 MG IV Q6H PRNLACTULOSE 30 ML PO ASDIR PRNKETOTIFEN FUMARATE 1 DROP EACH EYE BID PRNCALCIUM GLUC IN NACL, ISO-OSM 2 GM IV ASDIR PRNACETAMINOPHEN 650 MG RECTAL Q4H PRNACETAMINOPHEN 650 MG PO Q4H PRNSODIUM BICARBONATE 8.4% 50 MEQ IV .ONCE PRNAMIODARONE HCL 200 MG PO BIDDEXTROSE 50%-WATER 25 ML IV ASDIR PRNMETOPROLOL TARTRATE 5 MG IV Q6H PRNSODIUM CHLORIDE 10 mL 10 ML IV ASDIRFERROUS SULFATE 325 MG PO DAILYFUROSEMIDE 40 MG PO QAM LABS BASIC METABOLIC PANEL (08/20/23 02:54)SODIUM 143POTASSIUM 4.1CHLORIDE 105CARBON DIOXIDE 30GLUCOSE 102BLOOD UREA NITROGEN 29H HGLOMERULAR FILTRATION RATE >=60 max estimateCREATININE 1.10CALCIUM 8.0 L MAG (08/20/23 02:54)MAGNESIUM 2.0 PHOS (08/20/23 02:54)PHOSPHOROUS 3.9 CBC W/AUTO DIFF (08/20/23 02:54)WHITE BLOOD CELL 11.1H HRED BLOOD CELL 2.90 LHEMOGLOBIN 9.2L LHEMATOCRIT 28.2L LMEAN CELL VOLUME 97.2 HMEAN CELL HGB 31.7 HMEAN CELL HGB CONCENTRATION 32.6 LRED CELL DISTRIBUTION WIDTH 22.4 HPLATELET COUNT 265MEAN PLATELET VOLUME 9.7NEUTROPHIL % 75.3 HLYMPHOCYTE % 9.2 LMONOCYTE % 10.5 HEOSINOPHIL % 3.2BASOPHIL % 0.4NEUTROPHIL # 8.37 HLYMPHOCYTE # 1.02 MONOCYTE # 1.16 HEOSINOPHIL # 0.36BASOPHIL # 0.04 -- QUALITY -- -MEDICATIONS- - I attest that the foregoing medication list in the medical record is true,accurate, and complete to the best of my knowledge. -- ATTESTATION -- CARE ACTIVITIES / CARE COORDINATION: - I have reviewed the history and repeated the dee elements - I have seen and examined this patient - I have reviewed the progress in the clinical course since the lastexamination - I have discussed the patient's condition with other members of the care team Signed in PatientKeeper by Tony Gautam MD on 08/20/23 at 18:03 at 1803ATTENTION EDITS and/or ADDENDA must be made in Patient Keeper for this note. Edits and ammendments created in [facility] are not visible in Patient Keeper or the legal medical record (HPF). RPT #: [id number] OF REPORTPRProgress [id number]:[id number] ailable for patient [id number]:04:23 [facility] 2023-08-20 09:56:00 [id number]/S+Ub [id number]/[id number]:56:00 [facility] ([facility]) Cardiology Progress Notes REPORT #: [id number] REPORT STATUS: Signed DATE: 08/20/23 TIME: 955 PATIENT: CHARLIE HART UNIT #: [id number] #: [id number] ROOM #: P.0418 BED: A : 35 AGE: 88 SEX: M ATTEND: Tony Gautam MD ADM AUTHOR: Kaleigh Gonzalez ATTENTION EDITS and/or ADDENDA must be made in Patient Keeper for this note. Edits and ammendments created in [employer] are not visible in Patient Keeper or the legal medical record (HPF). -- CO-SIGNATURE -- COMMENTS:Agree with above from PHILIPPE Guardado. I discussed the case with the physicianassistant and agree with the findings and helped develop theplan of care as documented in her note. 88yo man hx CAD s/p ACB with RA lead dislodgement, RV lead failure now s/prevision HFrEF, LBBB-s/p RA, RV lead revision with upgrade to SUPPLIER QUALITY SPECIALIST Dilshad Strong, MDCardiac ElectrophysiologistTexas Cardiac Arrhythmia Signed in PatientKeeper by DILSHAD STRONG MD on 09/15/23 at 17:55 -- ASSESSMENT AND PLAN -- PROBLEMS: 1: Pacemaker lead malfunctionA/P: - in context of recent ACB x2 on 08/13 w/ Dr Powell, developed RA leadfailure/dislodgment (high atrial capture with dropping leading impedance) onPOD #2- s/p RA lead revision 08/18/23 - Dr Dilshad Strong- wore left arm sling overnight, post op interrogation this AM with stable RAparameters however RV lead unfortunately with higher capture highly suggestiveof RV lead failure- LVEF known approx 40%, has intermittent SSS/bradycardia and Salcedo DC PPM(11/2021 - Dr Celis), LBBB and QRS >120 ms- s/p RV lead revision and BiV upgrade 08/19/23 (with RV LB pacing) - Dr Strong- NO capped or abandoned leads- post op interrogation stable with appropriate parameters/thresholds, AP <1%BiVP >99%- post op CXR with no pneumo- complete 24hr of pressure dressing, to be removed by RN either later tonight(bedtime) vs tomorrow AM- Ordered post op ECG- Restrictions: No lifting >15 lb x 1 week, no raising left arm above shoulderfor 4 weeks however should still mobilize arm to avoid frozen shoulder - POC w/ Mr Hart is daughter Elizabeth (#[phone]) and available by phone- Educational materials/folder already given- Remote interrogations enrolled with Dr Celis- Can follow up in clinic 2 weeks for incision and device evaluation w/ DrGreet/ScoutNP 2: Acute on chronic systolic (congestive) heart failureA/P: - in context of CAD/ICMP, LVEF approx 40%- s/p recent ACB x3 (08/13/22 - Dr Powell)- c/w optimal tolerated medical therapy per Dr Deng team 3: Atrial fibrillationA/P: - Intra op AF noted during ACB x3 requiring cardioversion- Salcedo DC pacemaker in situ, implanted 11/2021 - Dr Celis- s/p upgrade to BiV system as above- will continue to monitor for AF on telemetry and device- on amiodarone 200 mg po bid- CHADS2-VASC: 5 (HF, HTN, Age 75+ CAD); lifelong OAC- on po eliquis 5 mg po bid, continue -- SUBJECTIVE -- CHIEF COMPLAINT:Upgrade to BiV HPI:Mr. 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 Intra-operativelydeveloped AF and was cardioverted to SR. Now POD 2, bedside Salcedo pacemaker interrogations concerning for high atrialthresholds for capture, 5V concerning for RA lead failure and dislodgment, EPconsulted for RA lead revision. He is extubated w/ family at bedside,participating in some PT. Will coordinate RA lead revision next week. - Echo 08/10/2023: LVEF 35-39%, No WMA, G1DD, LA and RA normal. Mod to severeAS, mild AR. Mild MR. Mild TR. RVSP 35 mmHg. - s/p RA lead revision 08/18 - Dr Strong 08/19/23: Device interrogation this morning with appropriate parameters in RA,however RV lead capture thresholds are elevated prompting RV lead failure,underwent Salcedo upgrade to BiV PPM on 08/19/23 - Dr Strong. 08/20/23: Doing well post upgrade to BiV, post op interrogation with appropriateparameters and AP <1% high BiV pacing >99%, no events overnight PATIENT NARRATIVE:- doing well this AM, sitting up in bed, left side with pressure dressing,removed sling- post op interrogation with stable thresholds/capture/parameters, high BiVpacing- notified RN to remove pressure dressing either late (bedtime) tonight or tomorrow AM -REVIEW OF SYSTEMS- GENERAL: See above -- OBJECTIVE -- VITALS (08/19 09:56 - 08/20 09:56):Temperature F: 98.3 (98.2 - 98.3)Temperature source: OralPulse Rate 88 (88 - 114)Respiratory rate: 15 (6 - 29)Blood pressure: 125/59 (91/54 - 171/81)Blood pressure source: Monitor I/Os (08/19 07:00 - 08/20 07:00):Net -510.00Intake 300.00Output 810 -EXAM- GENERAL: Well developed, well nourished, in no apparent distress.HEAD: Normocephalic, atraumatic.EYES: PERRL, EOM intact, conjunctiva and sclera clear, without nystagmus, lids normal.EARS: markedly diminished hearing.NOSE: No deformity, no discharge, no inflammation, no lesions.MOUTH: Oropharynx without deformities or lesions, normal mucosa..NECK: No masses, no thyromegaly, no abnormal cervical nodes, trachea midline.CHEST: NANCY PPM; pressure dressing in placeLUNGS: Clear bilaterally with normal respiratory effort.HEART: RRR; BiV paced rhythm; II/ LUIS at LLSBABDOMEN: Soft, non-tender, no organomegaly, no masses noted.MUSCULOSKELETAL: No deformity, no scoliosis noted of thoracic or lumbar spine, joint ROM grossly normal, normal gait and station.EXTREMITIES: No clubbing, no cyanosis, no edema.NEUROLOGICAL: No focal deficits, cranial nerves II-XII grossly intact, normal sensation, normal reflexes, normal coordination, normal muscle strength, normal tone.PULSES: Pulses normal in all extremities.PSYCHIATRIC: Alert and oriented to time, person, place. Normal mood and affect, intact judgment and insight. -- DATA -- ALLERGIES No Known Allergies - Reported By: Pj Benavides MEDICATIONS POTASSIUM CHLORIDE 20 MEQ IV ASDIR (PRN) MAG HYDROX/AL HYDROX/SIMETH 30 ML PO Q6H PRNtraMADol HCL 50 MG PO BID (PRN)ATORVASTATIN CALCIUM 80 MG PO BEDTIMEAPIXABAN 5 MG PO BIDpolyethylene glycoL 3350 1 PKT PO DAILYDOCUSATE SODIUM 200 MG PO DAILYclopidogreL 75 MG PO DAILYbisacodyL 10 MG RECTAL ASDIR PRNGLUCAGON 1 MG IM ASDIR PRNLACTULOSE 30 ML PO ASDIR PRNCYANOCOBALAMIN 500 MCG PO DAILYMAGNESIUM 1 GM IV ASDIR PRNIPRATROPIUM BROMIDE 0.5 MG NEB [id number] HCL 0.1 MG PO Q8H PRNNITROGLYCERIN 0.4 MG SL Q5M PRNONDANSETRON HCL/PF 4 MG IV Q6H PRNLACTULOSE 30 ML PO ASDIR PRNKETOTIFEN FUMARATE 1 DROP EACH EYE BID PRNCALCIUM GLUC IN NACL, ISO-OSM 2 GM IV ASDIR PRNACETAMINOPHEN 650 MG RECTAL Q4H PRNACETAMINOPHEN 650 MG PO Q4H PRNSODIUM BICARBONATE 8.4% 50 MEQ IV .ONCE PRNAMIODARONE HCL 200 MG PO BIDDEXTROSE 50%-WATER 25 ML IV ASDIR PRNMETOPROLOL TARTRATE 5 MG IV Q6H PRNSODIUM CHLORIDE 10 mL 10 ML IV ASDIRFERROUS SULFATE 325 MG PO DAILYFUROSEMIDE 40 MG PO QAM LABS BASIC METABOLIC PANEL (08/20/23 02:54)SODIUM 143POTASSIUM 4.1CHLORIDE 105CARBON DIOXIDE 30GLUCOSE 102BLOOD UREA NITROGEN 29H HGLOMERULAR FILTRATION RATE >=60 max estimateCREATININE 1.10CALCIUM 8.0 L MAG (08/20/23 02:54)MAGNESIUM 2.0 PHOS (08/20/23 02:54)PHOSPHOROUS 3.9 CBC W/AUTO DIFF (08/20/23 02:54)WHITE BLOOD CELL 11.1H HRED BLOOD CELL 2.90 LHEMOGLOBIN 9.2L LHEMATOCRIT 28.2L LMEAN CELL VOLUME 97.2 HMEAN CELL HGB 31.7 HMEAN CELL HGB CONCENTRATION 32.6 LRED CELL DISTRIBUTION WIDTH 22.4 HPLATELET COUNT 265MEAN PLATELET VOLUME 9.7NEUTROPHIL % 75.3 H LYMPHOCYTE % 9.2 LMONOCYTE % 10.5 HEOSINOPHIL % 3.2BASOPHIL % 0.4NEUTROPHIL # 8.37 HLYMPHOCYTE # 1.02MONOCYTE # 1.16 HEOSINOPHIL # 0.36BASOPHIL # 0.04 VITALS Temperature F: 08/20/23 05:00 08/20/23 04:45 08/20/23 04:30 08/20/23 04:15 08/20/23 04:00 98.3 08/20/23 03:45 08/20/23 03:30 08/20/23 03:15 08/20/23 03:01 08/20/23 03:00Pulse Rate 08/20/23 05:00 88 08/20/23 04:45 90 08/20/23 04:30 90 08/20/23 04:15 92 08/20/23 04:00 90 08/20/23 03:45 91 08/20/23 03:30 91 08/20/23 03:15 91 08/20/23 03:01 97 08/20/23 03:00 98Respiratory rate: 08/20/23 05:00 15 08/20/23 04:45 16 08/20/23 04:30 16 08/20/23 04:15 16 08/20/23 04:00 16 08/20/23 03:45 16 08/20/23 03:30 16 08/20/23 03:15 19 08/20/23 03:01 26 08/20/23 03:00 25Blood pressure: 08/20/23 05:00 125 / 59 08/20/23 04:45 08/20/23 04:30 115 / 59 08/20/23 04:15 08/20/23 04:00 117 / 66 08/20/23 03:45 08/20/23 03:30 126 / 62 08/20/23 03:15 08/20/23 03:01 139 / 78 08/20/23 03:00SPO2 %: 08/20/23 05:00 96 08/20/23 04:45 96 08/20/23 04:30 96 08/20/23 04:15 97 08/20/23 04:00 97 08/20/23 03:45 97 08/20/23 03:30 96 08/20/23 03:15 96 08/20/23 03:01 94 08/20/23 03:00 94 -- ATTESTATION -- TIME SPENT ON PATIENT CARE: - Direct - Counseling - Coordination of Care - > 50% of time spent on Counseling/Care Coordination CARE ACTIVITIES / CARE COORDINATION: - I have reviewed the history and repeated the dee elements - I have seen and examined this patient - I have reviewed the progress in the clinical course since the lastexamination - I have discussed the patient's condition with other members of the care team ADDITIONAL DETAIL:Reviewed with Dr Strong Signed in PatientKeeper by Kaleigh Gonzalez on 08/20/23 at 10:52 Cosigned by DILSHAD STRONG MD on 09/15/23 at 17:55 at 1755 at 1755ATTENTION EDITS and/or ADDENDA must be made in Patient Keeper for this note. Edits and ammendments created in [facility] are not visible in Patient Keeper or the legal medical record (HPF). RPT #: [id number] OF REPORTPRProgress [id number]:[id number] ailable for patient [id number]:56:20 [facility] 2023-08-20 09:10:00 [id number] ENd/UzawW36drkJHEOTPBzefDux6241-22-22W13:10:00 [facility] ([facility]) Progress Note REPORT #: [id number] REPORT STATUS: Signed DATE: 08/20/23 TIME: 909 PATIENT: CHARLIE HART UNIT #: [id number] #: [id number] ROOM #: P.0311 BED: 1 : 35 AGE: 88 SEX: M ATTEND: Tony Gautam MD ADM AUTHOR: Nile Fuentes MD ATTENTION EDITS and/or ADDENDA must be made in Patient Keeper for this note. Edits and ammendments created in [facility] are not visible in Patient Keeper or the legal medical record (HPF). -- ASSESSMENT AND PLAN -- PROBLEMS: 1: Non-ST elevation (NSTEMI) myocardial infarctionA/P: This is a 88 year old male with Recent non-ST segment elevation myocardialinfarction- Underwent CABG x 3 on 08/13/23. Administered 1000 units Kcentra and 2000 gramsFibryga.- Monitor patient for any bleeding episodes.- Monitor chest tube output/color.- Continue ASA and Plavix.- Continue Apixaban for atrial fibrillation.- Continue ferrous sulfate 325 mg PO daily.- Monitor urine output volume/color.- Check CBC, PTT, INR, and Fibrinogen daily.- Follow up with Cardiac surgery recs.- Encourage rehab/ambulation as tolerated. Follow up with PT/OT recs. -- SUBJECTIVE -- HPI: On 2L oxygen support. Net negative fluid balance over past 24 hours. Plateletsand hemoglobin at target. -REVIEW OF SYSTEMS- GENERAL: Negative for fever, malaise, fatigue.EYES: Negative for blurry vision. No diplopia.EARS/NOSE/THROAT: Negative for sore throat. No otalgia. No rhinorrhea.RESPIRATORY: Negative for dyspnea or wheeze. No cough.CARDIOVASCULAR: Negative for chest pain or palpitations. No extremity swelling.GASTROINTESTINAL: Negative for abdominal pain or nausea. No emesis. No diarrhea.NEUROLOGICAL: Negative for headache. No vertigo. Denies paresthesias.PSYCHIATRIC: Negative for specific complaints. -- OBJECTIVE -- VITALS (08/19 09:10 - 08/20 09:10): Temperature F: 98.3 (98.2 - 98.3)Temperature source: OralPulse Rate 88 (48 - 114)Respiratory rate: 15 (6 - 29)Blood pressure: 125/59 (91/54 - 171/81)Blood pressure source: Monitor I/Os (08/19 07:00 - 08/20 07:00):Net -510.00Intake 300.00Output 810 -EXAM- GENERAL: Well developed, well nourished, in no apparent distress.HEAD: Normocephalic, atraumatic.EYES: PERRL, EOM intact, conjunctiva and sclera clear, without nystagmus, lids normal.NOSE: No deformity, no discharge, no inflammation, no lesions.MOUTH: Oropharynx without deformities or lesions, normal mucosa..NECK: No masses, no thyromegaly, no abnormal cervical nodes, trachea midline.CHEST: Round chest, midline incision intact, chest tubes in placeLUNGS: Clear bilaterally with normal respiratory effort.HEART: Regular rate and rhythm, normal S1, S2, no murmurs, no rubs, no gallops, no clicks.ABDOMEN: Soft, non-tender, no organomegaly, no masses noted.MUSCULOSKELETAL: No deformity, no scoliosis noted of thoracic or lumbar spine, joint ROM grossly normal.EXTREMITIES: No clubbing, no cyanosis, no edema.NEUROLOGICAL: SedatedPULSES: Pulses normal in all extremities.SKIN: Intact without significant lesions, or rashes.LYMPH NODES: No significant cervical node adenopathy. No significant axillary node adenopathy. No significant inguinal node adenopathy. -- DATA -- MEDICATIONS POTASSIUM CHLORIDE 20 MEQ IV ASDIR (PRN)MAG HYDROX/AL HYDROX/SIMETH 30 ML PO Q6H PRNtraMADol HCL 50 MG PO BID (PRN)ATORVASTATIN CALCIUM 80 MG PO BEDTIMEAPIXABAN 5 MG PO BIDpolyethylene glycoL 3350 1 PKT PO DAILYDOCUSATE SODIUM 200 MG PO DAILYclopidogreL 75 MG PO DAILYbisacodyL 10 MG RECTAL ASDIR PRNGLUCAGON 1 MG IM ASDIR PRNLACTULOSE 30 ML PO ASDIR PRNCYANOCOBALAMIN 500 MCG PO DAILYMAGNESIUM 1 GM IV ASDIR PRN IPRATROPIUM BROMIDE 0.5 MG NEB [id number] HCL 0.1 MG PO Q8H PRNNITROGLYCERIN 0.4 MG SL Q5M PRNONDANSETRON HCL/PF 4 MG IV Q6H PRNLACTULOSE 30 ML PO ASDIR PRNKETOTIFEN FUMARATE 1 DROP EACH EYE BID PRNCALCIUM GLUC IN NACL, ISO-OSM 2 GM IV ASDIR PRNACETAMINOPHEN 650 MG RECTAL Q4H PRNACETAMINOPHEN 650 MG PO Q4H PRNSODIUM BICARBONATE 8.4% 50 MEQ IV .ONCE PRNAMIODARONE HCL 200 MG PO BIDDEXTROSE 50%-WATER 25 ML IV ASDIR PRNMETOPROLOL TARTRATE 5 MG IV Q6H PRNSODIUM CHLORIDE 10 mL 10 ML IV ASDIRFERROUS SULFATE 325 MG PO DAILYFUROSEMIDE 40 MG PO QAM LABS BASIC METABOLIC PANEL (08/20/23 02:54)SODIUM 143POTASSIUM 4.1CHLORIDE 105CARBON DIOXIDE 30GLUCOSE 102BLOOD UREA NITROGEN 29H HGLOMERULAR FILTRATION RATE >=60 max estimateCREATININE 1.10CALCIUM 8.0 L MAG (08/20/23 02:54)MAGNESIUM 2.0 PHOS (08/20/23 02:54)PHOSPHOROUS 3.9 CBC W/AUTO DIFF (08/20/23 02:54)WHITE BLOOD CELL 11.1H HRED BLOOD CELL 2.90 LHEMOGLOBIN 9.2L LHEMATOCRIT 28.2L LMEAN CELL VOLUME 97.2 HMEAN CELL HGB 31.7 HMEAN CELL HGB CONCENTRATION 32.6 LRED CELL DISTRIBUTION WIDTH 22.4 HPLATELET COUNT 265MEAN PLATELET VOLUME 9.7NEUTROPHIL % 75.3 HLYMPHOCYTE % 9.2 LMONOCYTE % 10.5 HEOSINOPHIL % 3.2BASOPHIL % 0.4NEUTROPHIL # 8.37 HLYMPHOCYTE # 1.02MONOCYTE # 1.16 HEOSINOPHIL # 0.36BASOPHIL # 0.04 -- ATTESTATION -- TIME SPENT ON PATIENT CARE: - Direct 30 minutes CARE ACTIVITIES / CARE COORDINATION: - I have reviewed the history and repeated the dee elements - I have seen and examined this patient - I have reviewed the progress in the clinical course since the lastexamination - I have discussed the patient's condition with other members of the care team Signed in PatientKeeper by NILE FUENTES MD on 08/20/23 at 09:12 at 0912ATTENTION EDITS and/or ADDENDA must be made in Patient Keeper for this note. Edits and ammendments created in [facility] are not visible in Patient Keeper or the legal medical record (HPF). RPT #: [id number] OF REPORTPRProgress [id number]:10:[id number] ailable for patient [id number]:12:56 [facility] 2023-08-19 22:54:00 [id number]:54:00 [facility] ([facility]) Cardiology Progress Notes REPORT #: [id number] REPORT STATUS: Signed DATE: 08/19/23 TIME: 2254 PATIENT: CHARLIE HART UNIT #: [id number] #: [id number] ROOM #: P.0418 BED: A : 35 AGE: 88 SEX: M ATTEND: Tony Gautam MD ADM AUTHOR: Trina Marquez MD CF1 ATTENTION EDITS and/or ADDENDA must be made in Patient Keeper for this note. Edits and ammendments created in [facility] are not visible in Patient Keeper or the legal medical record (HPF). -- CO-SIGNATURE -- COMMENTS:The patient was seen on rounds with Trina Marquez MD The patient has no complaints Examination demonstrates normal heart sounds and clear lung stanley. Impression and plan The patient is an 88-year-old gentleman with coronary artery disease and an EFbetween 40 to 50% from the outside records with anterior hypokinesis who wastransferred here for possible bypass surgery.Status post three-vessel bypass surgery.Continue aspirin and atorvastatin. If blood pressure improves we will startbeta-blockade. Start dual antiplatelet therapy.Continue amiodarone drip and transition to oral amiodarone 200 mg twice daily.Will need a lead revision of the ventricular lead.Continue with aggressive occupational and physical therapy.Chest tubes removed Signed in PatientKeeper by GINO DENG MD on 09/06/23 at 14:00 -- ASSESSMENT AND PLAN -- GENERAL ASSESSMENT:88 years old gentleman with past medical history of CAD s/p CABG X 4, improvingsignificantly in the post operative period, working with the physical therapy. PROBLEMS: 1: Coronary artery diseaseA/P: S/P CABG x 3, POD # 6Chest tubes removed.Continue Asa 81 mg , Plavix 75 mg po daily, Atorvastatin 80 mg po daily.Encourage PT/OT evaluation. 2: Afib A/P: History of Atrial fibrillation s/p PPM.Intra operative Atrial fibrillation with RVR, cardioverted back to sinus, PPMinterrogated without active issue, on oral Amiodarone 200 mg BID.PPM interrogation completed. EP services following, lead misplacement, plan torevise the lead this week. -- SUBJECTIVE -- CHIEF COMPLAINT:Post CABG stable patient , no overnight issue. PATIENT NARRATIVE:Patient denied chest pain, shortness of breath or palpitations. -REVIEW OF SYSTEMS- COMMENT: Patient reported no chest pain, shortness of breath. -- OBJECTIVE -- VITALS (08/18 22:54 - 08/19 22:54):Temperature F: 98.3 (98.2 - 98.3)Temperature source: OralPulse Rate 102 (46 - 114)Respiratory rate: 21 (4 - 30)Blood pressure: 103/59 (91/52 - 171/81)Blood pressure source: Monitor I/Os (08/18 07:00 - 08/19 07:00):Net -500Intake 1,200Output 1,700 -EXAM- GENERAL: Well developed, well nourished, in no apparent distress.HEAD: Normocephalic, atraumatic.NOSE: No deformity, no discharge, no inflammation, no lesions. Nasal cannula in place.MOUTH: Oropharynx without deformities or lesions, normal mucosa.NECK: No masses, no thyromegaly, no abnormal cervical nodes, trachea midline.CHEST: Grossly normal appearance. Midline sternotomy incision intact.LUNGS: Clear bilaterally with normal respiratory effort.HEART: Regular rate and rhythm, paced rhythm, permanent pacemaker in place.ABDOMEN: Soft, non-tender, no organomegaly, no masses noted.MUSCULOSKELETAL: No deformity, no scoliosis noted of thoracic or lumbar spine, joint ROM grossly normal, normal gait and station.EXTREMITIES: No clubbing, no cyanosis, no edema.NEUROLOGICAL: No focal deficits, cranial nerves II-XII grossly intact, normal sensation, normal reflexes, normal coordination, normal muscle strength, normal tone. -- DATA -- MEDICATIONS POTASSIUM CHLORIDE 20 MEQ IV ASDIR (PRN)MAG HYDROX/AL HYDROX/SIMETH 30 ML PO Q6H PRNtraMADol HCL 50 MG PO BID (PRN)ATORVASTATIN CALCIUM 80 MG PO BEDTIMEAPIXABAN 5 MG PO BIDpolyethylene glycoL 3350 1 PKT PO DAILYDOCUSATE SODIUM 200 MG PO DAILYclopidogreL 75 MG PO DAILYbisacodyL 10 MG RECTAL ASDIR PRNGLUCAGON 1 MG IM ASDIR PRNLACTULOSE 30 ML PO ASDIR PRNCYANOCOBALAMIN 500 MCG PO DAILYMAGNESIUM 1 GM IV ASDIR PRNIPRATROPIUM BROMIDE 0.5 MG NEB QGA9NyafJFAsbc HCL 0.1 MG PO Q8H PRNNITROGLYCERIN 0.4 MG SL Q5M PRNONDANSETRON HCL/PF 4 MG IV Q6H PRNLACTULOSE 30 ML PO ASDIR PRNKETOTIFEN FUMARATE 1 DROP EACH EYE BID PRNCALCIUM GLUC IN NACL, ISO-OSM 2 GM IV ASDIR PRNACETAMINOPHEN 650 MG RECTAL Q4H PRNACETAMINOPHEN 650 MG PO Q4H PRNSODIUM BICARBONATE 8.4% 50 MEQ IV .ONCE PRNAMIODARONE HCL 200 MG PO BIDDEXTROSE 50%-WATER 25 ML IV ASDIR PRNMETOPROLOL TARTRATE 5 MG IV Q6H PRNSODIUM CHLORIDE 10 mL 10 ML IV ASDIRFERROUS SULFATE 325 MG PO DAILYFUROSEMIDE 40 MG PO [facility] PHOS (08/19/23 03:25)PHOSPHOROUS 3.4 MAG (08/19/23 03:25)MAGNESIUM 1.9 BASIC METABOLIC PANEL (08/19/23 03:25)SODIUM 143POTASSIUM 3.9CHLORIDE 104CARBON DIOXIDE 33H HGLUCOSE 105BLOOD UREA NITROGEN 32H HGLOMERULAR FILTRATION RATE >=60 max estimateCREATININE 1.10CALCIUM 7.8 L CBC W/AUTO DIFF (08/19/23 03:25)WHITE BLOOD CELL 12.2H HRED BLOOD CELL 2.68 LHEMOGLOBIN 8.4L LHEMATOCRIT 26.4L LMEAN CELL VOLUME 98.5 HMEAN CELL HGB 31.3 H MEAN CELL HGB CONCENTRATION 31.8 LRED CELL DISTRIBUTION WIDTH 22.2 HPLATELET COUNT 228MEAN PLATELET VOLUME 10.0NEUTROPHIL % 75.5 HLYMPHOCYTE % 8.8 LMONOCYTE % 10.4 HEOSINOPHIL % 3.5BASOPHIL % 0.4NEUTROPHIL # 9.19 HLYMPHOCYTE # 1.07MONOCYTE # 1.26 HEOSINOPHIL # 0.43BASOPHIL # 0.05 Signed in PatientKeeper by TRINA MARQUEZ MD on 08/19/23 at 22:57 Cosigned by GINO DENG MD on 09/06/23 at 14:00 at 1400 at 1400ATTENTION EDITS and/or ADDENDA must be made in Patient Keeper for this note. Edits and ammendments created in [facility] are not visible in Patient Keeper or the legal medical record (HPF). RPT #: [id number] OF REPORTPRProgress [id number]:54:00P.GA-[id number] ailable for patient echvLGRVQDYYKRGBGZ0251-62-44H49:13:57 [facility] 2023-08-19 19:00:00 [id number]/uJh [id number]4W84:00:00 THIS REPORT HAS BEEN APPENDED [facility] ([facility]) Operative Report REPORT #: [id number] REPORT STATUS: Signed DATE: 08/19/23 TIME: 1900 PATIENT: CHARLIE HART UNIT #: [id number]: [id number] ROOM #: P.0311 BED: 1 : 35 AGE: 88 SEX: M ATTEND: Tony Gautam MD ADM AUTHOR: Dilshad Strong MD ATTENTION EDITS and/or ADDENDA must be made in Patient Keeper for this note. Edits and ammendments created in [facility] are not visible in Patient Keeper or the legal medical record (HPF). -- OPERATION -- SURGERY START DATE/TIME:2023-08-19 19:00 PRE-OPERATIVE DIAGNOSIS:See Description POST-OPERATIVE DIAGNOSIS:See Description NAME OF PROCEDURE:See Description SURGEON:Dilshad Strong MD TRAFFIC DIVISION COMMANDING OFFICER(S):See Description ANESTHESIA:See Description ESTIMATED BLOOD LOSS:10 ml's FINDINGS:See Description SPECIMEN(S) REMOVED AND/OR ALTERED:See Description COMPLICATION(S):See Description -- DESCRIPTION -- DESCRIPTION OF TECHNIQUE/PROCEDURE:Lead Extraction, Biventricular Pacemaker Upgrade Procedure Note Exercise Scientist: Dilshad Strong MD Fellow: [None][facility] [place] Referring Physician: MD Ish Date of Procedure: 08/19/23 Brief Clinical History: This is an 88yo man with a history of HFrEF, completeheart block presenting for implantation of a biventricular pacemaker. Procedure Performed:RV Lead RemovalUpgrade to BiV from dual chamber PPM (45787, [id number]) The procedure was performed utilizing moderate sedation with split doses of IVVersed and fentanyl administered by a nurse trained in conscious sedation underthe direct supervision of the performing physician. Additionally localanesthetic was administered to the sites of catheter access. Throughout the procedure, the patient was monitored by a radiology nurse. Thepatient s vital signs were stable throughout the procedure, including cardiacrhythm and oxygen saturation. Neurological checks were also performed duringthe procedure. TOTAL INTRA SERVICE TIME: [] minutes EBL: MinimalSpecimen Removed: NoneComplications: NoneCondition: Stable Summary:After obtaining informed consent, the patient was brought to thecatheterization laboratory. The patient was prepped and draped in the usualsterile fashion. An incision was made in the [left] pectoral area inferior tothe clavicle. Using a combination of sharp and blunt dissection withelectrocautery the incision was carried down to the level of the pre-existingpocket. The device was freed from its chronic leads and scar tissue was removed. Thepocket was irrigated with copious antibiotic solution. Using the modified Seldinger technique with the patient in the Trendelenburgposition, one venipuncture was made in the axillary vein with a micropunctureneedle. One 0.035" guide wire was advanced to the inferior vena cava. A 7fr sheath wasadvanced over the wire. A 2088 wire was advanced to the region of the leftbundle in the right ventricle. The lead was advanced into the septum. Adequatesensing, pacing, impedance and injury were demonstrated. The suture sleeve ofthe lead was tied down with 2-0 silk. One 0.035 guide wires were passed to the inferior vena cava. A single 7-Tajik peel-away sheath was advanced over the wire. The coronary sinus wascannulated, and a venogram was performed with contrast using an 7 beninese swancatheter in the coronary sinus. A [posterior lateral] vein was identified. AnLV lead was placed in the [posterior lateral] vein of the left ventricle,adequate pacing was confirmed, the sheath was peeled away, and the lead wassewn into position with 2-0 silk pop-off suture. Copious amounts of antibiotic solution were then used to irrigate the pocket. The generator was thenconnected to the leads and adequate connections of all three leads to thegenerator were confirmed. Appropriate sensing, pacing impedance, shockimpedance, and pacing thresholds were tested and verified through the device. A tyrex was used in the pocket given recent reintervention. Adequate hemostasis and lead placement were verified once again and then thepocket was closed with two layers of continuous and interrupted 2.0 Vicrylsutures, 4.0 Monocryl subcuticular, and dermabond at the skin level. Thepatient tolerated the procedure well. The patient s arm was immobilized and thepatient was transferred from the lab in stable condition. Adequate hemostasis and lead placement were verified once again and the pocketwas closed with two layers of continuous and interrupted 2.0 Vicryl sutures,4.0 Monocryl subcuticular, and dermabond at the skin level. The patienttolerated the procedure well. A sterile pressure dressing was applied. Thepatient s arm was immobilized and the patient was transferred from the lab instable condition. Recommendations-Patient to receive a chest xray post procedure to evaluate for lead positioning-Patient is to take antibiotics by mouth for 5 days post procedure-Two week follow up in the office for device check-Patient to be enrolled in home monitoring-Patient to remove pressure dressing tomorrow at home-Patient to wear sling for first 24 hours and thereafter the first three nights-Additional instructions provided in written format to the patient Dilshad Strong M.D.Cardiac ElectrophysiologistTexas Cardiac Arrhythmia Signed in PatientKeeper by Dilshad Strong MD on 08/19/23 at 20:48 at 2047 SECTION 2 ADDENDUM 1: 08/19/232048 PTKEEPERSedation Time: 60 xeftsik2fk versed/50mcg fentanyl at 2048 ATTENTION EDITS and/or ADDENDA must be made in Patient Keeper for this note. Edits and ammendments created in [employer] are not visible in Patient Keeper or the legal medical record (HPF). RPT #: [id number] OF REPORTOPOperative [id number]:00:00P.[id number] Available for patient [id number]:49:11 [facility] 2023-08-19 18:52:00 [id number]/UfucIUwVwZ3loEHyO7 njdfucNQrXWCicOX2uGv6yPZTLW6502-84-18M92:52:00 [facility] ([facility]) Hospitalist Progress Note REPORT #: [id number] REPORT STATUS: Signed DATE: 08/19/23 TIME: 1851 PATIENT: CHARLIE HART UNIT #: [id number] #: [id number] ROOM #: P0311 BED: 1 : 35 AGE: 88 SEX: M ATTEND: Tony Gautam MD ADM AUTHOR: Tony Gautam MD ATTENTION EDITS and/or ADDENDA must be made in Patient Keeper for this note. Edits and ammendments created in [employer] are not visible in Patient Keeper or the legal medical record (HPF). -- ASSESSMENT AND PLAN -- GENERAL ASSESSMENT: ASSESSMENT AND PLAN: 1. Recent non-ST segment elevation myocardial infarction, around July.S/p coronary angiogram 08/09 showing multivessel coronary artery disease,not amenable to percutaneous coronary intervention.LAD 90 to 99% lesion, left circumflex proximal 90%, 95% obtuse marginal lesion;Occluded proximal RCA. Left ventricular end-diastolic pressure 12;Left ventricular ejection fraction 40%, severe anteroapical hypokinesis.The patient is being admitted to [facility] for higher level of care.Given his multiple comorbidities, coronary intervention is being decided upon,percutaneous versus surgical.Optimized statin dose, continue aspirin and beta-blockers.Plavix was withheld only from 08/08.the patient underwent CABG x [address] Powell 08/13/22. 2. Hypertension continue metoprolol. 3. Hyperlipidemia. Increased statins to high-dose for now. 4. Pulmonary hypertension 5. Benign prostatic hyperplasia. 6. 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 7. Chronic neck pain. Continue home dose of tramadol. 8. PAF, periop, amiodarone. 9. Lactic acidosis, related to surgery. 10. Acute surgical blood loss anemia.2 units PRBC and 1 unit FFP transfused 08/13. 11. Thrombocytopenia, noncritical. 12. Acute debility.PT following. 13. S/P Atrial lead extraction and new atrial lead placement by Dr Dilshad Strong08/18/23.13a. s/p RV lead revision and upgrade to BiV pacemaker, 08/19/[address] Casanova ADDITIONAL COMMENTS:s/p CABG by Dr. João Powell 08/13/23.s/p Atrial lead extraction and new atrial lead placement 08/18/23s/p RV lead revision and upgrade to BiV pacemaker, 08/19/[address] Dilshad Strong -- SUBJECTIVE -- HPI: This 88-year-old gentleman has a past medical history significant forhypertension, pulmonary hypertension, Nonobstructive coronary artery disease,ischemic cardiomyopathy, with a previous ejection fraction of 40 to 50%,hyperlipidemia, benign prostatic hyperplasia, vitamin B12 deficiency, Permanentpacemaker placement in November 2021. The patient was in his usual state of healthuntil recently when he developed recurrent chest pain, suggestive of angina. Hewas taken to the [place] emergency room on August 05, 2023 where he wasruled in for non-ST segment elevation myocardial infarction. He was started onheparin and transferred to [facility] where he was observed for a coupleof days and improved on medical therapy.Echocardiogram showed apical wall motion abnormalities with preserved leftventricular ejection fraction. As the patient was doing well on medicalmanagement, he was discharged from the other hospital without intervention. Hewas seen by his primary manager front office, Dr Deyvi Celis and admitted forselective coronary angiogram on August 09, 2023 to [facility].This showed multivessel coronary artery disease, LAD 90 to 99% lesion, leftcircumflex proximal 90%, 95% obtuse marginal lesion; Occluded proximal RCA.Left ventricular end-diastolic pressure 12; Left ventricular ejection evnrqpzd94%, severe anteroapical hypokinesis. He has been transferred to [facility] for consideration of CABG by Dr. João Powell. PATIENT NARRATIVE: 08/10: The patient denies any chest pain or shortness of breath at this time.Denies any headache or dizziness.No nausea vomiting.labs pending.echo at the OSH shows:1. Left ventricle: The cavity size is normal. Wall thickness is normal.Systolic function is normal. The estimated ejection fraction is 50-54%.Regional wall motion abnormalities cannot be excluded. Grade I diastolicdysfunction.2. Atrial septum: No defect or patent foramen ovale is identified. He has been seen by the heart team.Given his multiple comorbidities, coronary intervention is being decided upon,percutaneous versus surgical.Plan of care discussed with the patient and his daughter, Elizabeth, at bedside. 08/11: Repeat echo over here shows:1. Left ventricle: The cavity size is normal. Wall thickness is normal.Systolic function is moderately reduced. The estimated ejection fractionis 35-39%. Wall motion is normal; there are no regional wall motionabnormalities. Grade I diastolic dysfunction. 2. Aortic valve: The findings are consistent with moderate to severe stenosis.The mean systolic gradient is 15 mm Hg. The valve area is 0.98 cm 2.3. Mitral valve: The annulus is mildly to moderately calcified.Possible low flow low gradient aortic stenosis. Considerfurther evaluation with dobutamine stress echocardiogram.Patient is being evaluated by the consultants.Patient has expressed that the he would prefer getting surgery if his heartcould be taken care of percutaneously.Await final recommendations. 08/12: No acute events overnight.No chest pain or shortness of breath.After extensive discussions, the final recommendations are for CABG by Dr. Young 08/13: the patient underwent CABG x [address] Powell.Intra-op, patient went into AFib, and blood pressure dropped,so was re-explored, and eventually cardioverted. on 0.03mcg of Epinephrine.Received 2 units of PRBC, and 1 unit of FFP. 08/14: Extubated postoperative day 0.On 2 L of oxygen via nasal cannula.K low, replete. 08/15: All chest tubes removed.IJ removed.On 4 L of oxygen via nasal cannula.Walked about 25 feet with physical therapy.No bowel movement as yet.Plans for right atrial lead revision week of 08/[address] Owens 08/16: Reports that he is feeling well continues to remain on 2 L nasal cannula.S/p NADIRA today. 08/17: Patient was evaluated bedside, reports that he is feeling well. Continuesto remain on oxygen 2 L nasal cannula satting 100%. He is aware of possiblepacemaker lead revision to be done tomorrow. 08/18: underwent Atrial lead extraction and new atrial lead placement by Carlee Strong,On room air.Feels well.Progressing well. 08/19: On 2 L of oxygen via nasal cannula.underwent RV lead revision and upgrade to BiV pacemaker,by Dr Dilshad Strong -REVIEW OF SYSTEMS- GENERAL: as above -- OBJECTIVE -- VITALS (08/18 18:52 - 08/19 18:52):Temperature F: 98.2 (98.2 - 98.3)Temperature source: OralPulse Rate 94 (46 - 114)Respiratory rate: 16 (4 - 30)Blood pressure: 132/63 (94/50 - 151/73) Blood pressure source: Monitor I/Os (08/18 07:00 - 08/19 07:00):Net -500Intake 1,200Output 1,700 -EXAM- GENERAL: Well developed, well nourished, in no apparent distress.HEAD: Normocephalic, atraumatic.EYES: PERRL, EOM intact, conjunctiva and sclera clear, without nystagmus, lids normal.EARS: markedly diminished hearing.NOSE: No deformity, no discharge, no inflammation, no lesions.MOUTH: Oropharynx without deformities or lesions, normal mucosa..NECK: No masses, no thyromegaly, no abnormal cervical nodes, trachea midline.CHEST: NANCY PPM; all CTs removedLUNGS: Clear bilaterally with normal respiratory effort.HEART: RRR; II/ LUIS at LLSBABDOMEN: Soft, non-tender, no organomegaly, no masses noted.MUSCULOSKELETAL: No deformity, no scoliosis noted of thoracic or lumbar spine, joint ROM grossly normal, normal gait and station.EXTREMITIES: No clubbing, no cyanosis, no edema.NEUROLOGICAL: No focal deficits, cranial nerves II-XII grossly intact, normal sensation, normal reflexes, normal coordination, normal muscle strength, normal tone.PULSES: Pulses normal in all extremities. -- DATA -- MEDICATIONS POTASSIUM CHLORIDE 20 MEQ IV ASDIR (PRN)MAG HYDROX/AL HYDROX/SIMETH 30 ML PO Q6H PRNtraMADol HCL 50 MG PO BID (PRN)ATORVASTATIN CALCIUM 80 MG PO BEDTIMEAPIXABAN 5 MG PO BIDpolyethylene glycoL 3350 1 PKT PO DAILYDOCUSATE SODIUM 200 MG PO DAILYclopidogreL 75 MG PO DAILYbisacodyL 10 MG RECTAL ASDIR PRNGLUCAGON 1 MG IM ASDIR PRNLACTULOSE 30 ML PO ASDIR PRNCYANOCOBALAMIN 500 MCG PO DAILYMAGNESIUM 1 GM IV ASDIR PRNIPRATROPIUM BROMIDE 0.5 MG NEB GRO6HeijNJGeda HCL 0.1 MG PO Q8H PRNNITROGLYCERIN 0.4 MG SL Q5M PRNONDANSETRON HCL/PF 4 MG IV Q6H PRNLACTULOSE 30 ML PO ASDIR PRNKETOTIFEN FUMARATE 1 DROP EACH EYE BID PRNCALCIUM GLUC IN NACL, ISO-OSM 2 GM IV ASDIR PRNACETAMINOPHEN 650 MG RECTAL Q4H PRN ACETAMINOPHEN 650 MG PO Q4H PRNSODIUM BICARBONATE 8.4% 50 MEQ IV .ONCE PRNAMIODARONE HCL 200 MG PO BIDDEXTROSE 50%-WATER 25 ML IV ASDIR PRNMETOPROLOL TARTRATE 5 MG IV Q6H PRNSODIUM CHLORIDE 10 mL 10 ML IV ASDIRFERROUS SULFATE 325 MG PO DAILYFUROSEMIDE 40 MG PO QAM LABS PHOS (08/19/23 03:25)PHOSPHOROUS 3.4 MAG (08/19/23 03:25)MAGNESIUM 1.9 BASIC METABOLIC PANEL (08/19/23 03:25)SODIUM 143POTASSIUM 3.9CHLORIDE 104CARBON DIOXIDE 33H HGLUCOSE 105BLOOD UREA NITROGEN 32H HGLOMERULAR FILTRATION RATE >=60 max estimateCREATININE 1.10CALCIUM 7.8 L CBC W/AUTO DIFF (08/19/23 03:25)WHITE BLOOD CELL 12.2H HRED BLOOD CELL 2.68 LHEMOGLOBIN 8.4L LHEMATOCRIT 26.4L LMEAN CELL VOLUME 98.5 HMEAN CELL HGB 31.3 HMEAN CELL HGB CONCENTRATION 31.8 LRED CELL DISTRIBUTION WIDTH 22.2 HPLATELET COUNT 228MEAN PLATELET VOLUME 10.0NEUTROPHIL % 75.5 HLYMPHOCYTE % 8.8 LMONOCYTE % 10.4 HEOSINOPHIL % 3.5BASOPHIL % 0.4NEUTROPHIL # 9.19 HLYMPHOCYTE # 1.07MONOCYTE # 1.26 HEOSINOPHIL # 0.43BASOPHIL # 0.05 -- QUALITY -- -MEDICATIONS- - I attest that the foregoing medication list in the medical record is true,accurate, and complete to the best of my knowledge. -- ATTESTATION -- CARE ACTIVITIES / CARE COORDINATION: - I have reviewed the history and repeated the dee elements - I have seen and examined this patient - I have reviewed the progress in the clinical course since the lastexamination - I have discussed the patient's condition with other members of the care team Signed in PatientKeeper by Tony Gautam MD on 08/19/23 at 21:40 at 2140ATTENTION EDITS and/or ADDENDA must be made in Patient Keeper for this note. Edits and ammendments created in [employer] are not visible in Patient Keeper or the legal medical record (HPF). RPT #: [id number] OF REPORTPRProgress [id number]:52:00P.SZ-[id number] ailable for patient mgigXKNEJKAJGIUNKA5216-65-69X43:41:42 [facility] 2023-08-19 14:36:00 [id number] y58GePxouxX+G0Ed9oXm0HX8rri1231-14-43Q38:36:00 [facility] ([facility]) Intensive Care Progress Note REPORT #: [id number] REPORT STATUS: Signed DATE: 08/19/23 TIME: 1435 PATIENT: CHARLIE HART UNIT #: [id number] #: [id number] ROOM #: P.0311 BED: 1 : 35 AGE: 88 SEX: M ATTEND: Tony Gautam MD ADM AUTHOR: Chikis Burdick MD ATTENTION EDITS and/or ADDENDA must be made in Patient Keeper for this note. Edits and ammendments created in [employer] are not visible in Patient Keeper or the legal medical record (HPF). -- ASSESSMENT AND PLAN -- HOSPITAL COURSE TO DATE:Mr. Hart is an 88 year-old male with past medical history of hypertension,hyperlipidemia, coronary artery disease, carotid disease, presence of permanentpacemaker (2021), pulmonary hypertension, and ischemic cardiomyopathy withprevious ejection fraction 40-50% who was transferred [facility] the CVICU [facility] 08/13 after CABG x 3 (incl. STANLEY-LAD) by Dr. Powell. 08/13: CABG X [address] Gil: Lt SC-Cephalic vein DVT on LUE Venous doppler: Replacement of PPM A-lead by Dr. Strong GENERAL ASSESSMENT:I have examined him, reviewed his EMR information and data and discussed hisplan of care with the other clinical and ancillary services. Assessment and Plan ICU AnalgesiaAcute postop pain- On Acetaminophen, Tramadol- Serially reassessing Symptomatic mv CADS/p CABG x 3Cardiogenic ShockVasoplegic ShockH/o HTNH/o Chronotropic incompetenceH/o Dual lead PPMH/o PAHPeriop Afib with RVRAcute Lt SC Vein DVTPPM A-lead failure s/p lead replacement as abovePPM V-lead failure- Paced rythm and adequate BP- Clean median sternotomy incision wound- Adequate perfusion indices- On Plavix, Statin, Apixaban- On Amiodarone- For PPM V-Lead replacement and upgrade to BiV pacer by EP team- Serially reassessing with exam, perfusion indices - D/w Drs. Powell and Abundio who are following Acute resp insufficiency- Adequate spaO2 on LFNC- pCXR with chronic changes and mild PVC.- On IS, pulm hygiene, breathing Rx, OOB to chair, ambulation, wean FiO2,diuresis- Serially reassessing with exam, imaging and ABGs Nutrition- NPO for procedure- May resume regular diet afterwards. Acute prerenal azotemiaFluid overload- Adequate UO, lytes on po Lasix- Serially reassessing with UO, lytes, fluid status Acute blood loss anemiaThrombocytopenia not present on admission- Adequate H/h, Plats and equilibrating- Serially reassessing Prophylaxis- Apixaban which was held for procedure.- SCDs Medications reviewed with the Clinical Pharmacist Full Code per [facility] [facility] Guidelines with daughter as MPOA -- OBJECTIVE -- VITALS (08/18 14:36 - 08/19 14:36):Temperature F: 98.2 (98.2 - 98.3)Temperature source: OralPulse Rate 93 (46 - 114)Respiratory rate: 19 (4 - 30)Blood pressure: 95/73 (94/50 - 132/73)Blood pressure source: Monitor I/Os (08/18 07:00 - 08/19 07:00):Net -500Intake 1,200Output 1,700 -- DATA -- MEDICATIONS POTASSIUM CHLORIDE 20 MEQ IV ASDIR (PRN)MAG HYDROX/AL HYDROX/SIMETH 30 ML PO Q6H PRNtraMADol HCL 50 MG PO BID (PRN)ATORVASTATIN CALCIUM 80 MG PO BEDTIMEAPIXABAN 5 MG PO BIDpolyethylene glycoL 3350 1 PKT PO DAILYDOCUSATE SODIUM 200 MG PO DAILYclopidogreL 75 MG PO DAILYbisacodyL 10 MG RECTAL ASDIR PRN GLUCAGON 1 MG IM ASDIR PRNLACTULOSE 30 ML PO ASDIR PRNCYANOCOBALAMIN 500 MCG PO DAILYMAGNESIUM 1 GM IV ASDIR PRNIPRATROPIUM BROMIDE 0.5 MG NEB AXN0BotgAAIjwb HCL 0.1 MG PO Q8H PRNNITROGLYCERIN 0.4 MG SL Q5M PRNONDANSETRON HCL/PF 4 MG IV Q6H PRNLACTULOSE 30 ML PO ASDIR PRNKETOTIFEN FUMARATE 1 DROP EACH EYE BID PRNCALCIUM GLUC IN NACL, ISO-OSM 2 GM IV ASDIR PRNACETAMINOPHEN 650 MG RECTAL Q4H PRNACETAMINOPHEN 650 MG PO Q4H PRNSODIUM BICARBONATE 8.4% 50 MEQ IV .ONCE PRNAMIODARONE HCL 200 MG PO BIDDEXTROSE 50%-WATER 25 ML IV ASDIR PRNMETOPROLOL TARTRATE 5 MG IV Q6H PRNSODIUM CHLORIDE 10 mL 10 ML IV ASDIRFERROUS SULFATE 325 MG PO DAILYFUROSEMIDE 40 MG PO QAM LABS PHOS (08/19/23 03:25)PHOSPHOROUS 3.4 MAG (08/19/23 03:25)MAGNESIUM 1.9 BASIC METABOLIC PANEL (08/19/23 03:25)SODIUM 143POTASSIUM 3.9CHLORIDE 104CARBON DIOXIDE 33H HGLUCOSE 105BLOOD UREA NITROGEN 32H HGLOMERULAR FILTRATION RATE >=60 max estimateCREATININE 1.10CALCIUM 7.8 L CBC W/AUTO DIFF (08/19/23 03:25)WHITE BLOOD CELL 12.2H HRED BLOOD CELL 2.68 LHEMOGLOBIN 8.4L LHEMATOCRIT 26.4L LMEAN CELL VOLUME 98.5 HMEAN CELL HGB 31.3 HMEAN CELL HGB CONCENTRATION 31.8 LRED CELL DISTRIBUTION WIDTH 22.2 HPLATELET COUNT 228MEAN PLATELET VOLUME 10.0NEUTROPHIL % 75.5 HLYMPHOCYTE % 8.8 LMONOCYTE % 10.4 HEOSINOPHIL % 3.5BASOPHIL % 0.4NEUTROPHIL # 9.19 HLYMPHOCYTE # 1.07MONOCYTE # 1.26 HEOSINOPHIL # 0.43 BASOPHIL # 0.05 -- ATTESTATION -- TIME SPENT ON PATIENT CARE: - Critical Care: time spent apart from any procedure 42 minutes CARE ACTIVITIES / CARE COORDINATION: - I have reviewed the history and repeated the dee elements - I have seen and examined this patient - I have reviewed the progress in the clinical course since the lastexamination - I have discussed the patient's condition with other members of the care team Signed in PatientKeeper by Chikis Burdick MD on 08/19/23 at 16:34 at 1634ATTENTION EDITS and/or ADDENDA must be made in Patient Keeper for this note. Edits and ammendments created in [employer] are not visible in Patient Keeper or the legal medical record (HPF). RPT #: [id number] OF REPORTPRProgress [id number]:36:00P.[id number] ailable for patient [id number]:35:46 [facility] 2023-08-19 10:54:00 [id number] [id number]7Q91:54:00 [facility] ([facility]) Cardiology Progress Notes REPORT #: [id number] REPORT STATUS: Signed DATE: 08/19/23 TIME: 1054 PATIENT: CHARLIE HART UNIT #: [id number] #: [id number] ROOM #: P.0418 BED: A : 35 AGE: 88 SEX: M ATTEND: Tony Gautam MD ADM AUTHOR: Kaleigh Gonzalez ATTENTION EDITS and/or ADDENDA must be made in Patient Keeper for this note. Edits and ammendments created in [employer] are not visible in Patient Keeper or the legal medical record (HPF). -- CO-SIGNATURE -- COMMENTS:Agree with above from PHILIPPE Guardado. I discussed the case with the physicianassistant and agree with the findings and helped develop theplan of care as documented in her note. 88yo man hx ACB now with right atrial lead dislodgement and subsequent rightventricular lead failure RV Lead Failure-Plan for RV lead revision Dilshad Strong, MDCardiac ElectrophysiologistTexas Cardiac Arrhythmia Signed in PatientKeeper by DILSHAD STRONG MD on 09/15/23 at 17:20 -- ASSESSMENT AND PLAN -- PROBLEMS: 1: Pacemaker lead malfunctionA/P: - in context of recent ACB x2 on 08/13 w/ Dr Powell, developed RA leadfailure/dislodgment (high atrial capture with dropping leading impedance) onPOD #2- s/p RA lead revision 08/18/23 - Dr Dilshad Strong- wore left arm sling overnight, post op interrogation this AM with stable RAparameters however RV lead unfortunately with higher capture highly suggestiveof RV lead failure- LVEF known approx 40%, has intermittent SSS/bradycardia and Salcedo DC PPM(11/2021 - Dr Ceils), LBBB and QRS >120 ms- will need RV lead revision and upgrade to BiV pacemaker, discussed theclinical indications, risks and benefits, realistic expectations and outcomes- Anticipating BiV upgrade today - Dr Strong- NPO status- Consents ordered- discussed POC w/ Mr Hart, and daughter Elizabeth (#[phone]) via phone bothagreeable and wish to pursue - Restrictions: No lifting >15 lb x 1 week, no raising left arm above shoulderfor 4 weeks however should still mobilize arm to avoid frozen shoulder 2: Acute on chronic systolic (congestive) heart failureA/P: - in context of CAD/ICMP, LVEF approx 40%- s/p recent ACB x3 (08/13/22 - Dr Powell)- c/w optimal tolerated medical therapy per Dr Deng team 3: Atrial fibrillationA/P: - Intra op AF noted during ACB x3 requiring cardioversion- Salcedo DC pacemaker in situ, implanted 11/2021 - Dr Celis- will upgrade to BiV system as above- will continue to monitor for AF on telemetry and device- on amiodarone 200 mg po bid- CHADS2-VASC: 5 (HF, HTN, Age 75+ CAD); lifelong OAC- on po eliquis 5 mg po bid, continue -- SUBJECTIVE -- CHIEF COMPLAINT:RA/RV lead failure, upgrade to BiV HPI:Mr. 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 Intra-operativelydeveloped AF and was cardioverted to SR. Now POD 2, bedside Salcedo pacemaker interrogations concerning for high atrialthresholds for capture, 5V concerning for RA lead failure and dislodgment, EPconsulted for RA lead revision. He is extubated w/ family at bedside,participating in some PT. Will coordinate RA lead revision next week. - Echo 08/10/2023: LVEF 35-39%, No WMA, G1DD, LA and RA normal. Mod to severeAS, mild AR. Mild MR. Mild TR. RVSP 35 mmHg. PATIENT NARRATIVE:- s/p RA lead revision 08/18 - Dr Strong- device interrogation this morning with appropriate parameters in RA, howeverRV lead capture thresholds are elevated prompting RV lead failure- LVEF known approx 40%, will upgrade to BiV PPM today - Dr Strong- NPO status- Consents ordered- Discussed plan with both Mr Hart and daughter Elizabeth over phone -REVIEW OF SYSTEMS- GENERAL: See above -- OBJECTIVE -- VITALS (08/18 10:54 - 08/19 10:54):Temperature F: 98.2 (98.2 - 98.3)Temperature source: Oral Pulse Rate 91 (46 - 116)Respiratory rate: 19 (8 - 31)Blood pressure: 113/60 (100/50 - 128/75)Blood pressure source: Monitor I/Os (08/18 07:00 - 08/19 07:00):Net -500Intake 1,200Output 1,700 -EXAM- GENERAL: Well developed, well nourished, in no apparent distress.HEAD: Normocephalic, atraumatic.EYES: PERRL, EOM intact, conjunctiva and sclera clear, without nystagmus, lids normal.EARS: markedly diminished hearing.NOSE: No deformity, no discharge, no inflammation, no lesions.MOUTH: Oropharynx without deformities or lesions, normal mucosa..NECK: No masses, no thyromegaly, no abnormal cervical nodes, trachea midline.CHEST: NANCY PPM; all CTs removedLUNGS: Clear bilaterally with normal respiratory effort.HEART: RRR; II/ LUIS at LLSBABDOMEN: Soft, non-tender, no organomegaly, no masses noted.MUSCULOSKELETAL: No deformity, no scoliosis noted of thoracic or lumbar spine, joint ROM grossly normal, normal gait and station.EXTREMITIES: No clubbing, no cyanosis, no edema.NEUROLOGICAL: No focal deficits, cranial nerves II-XII grossly intact, normal sensation, normal reflexes, normal coordination, normal muscle strength, normal tone.PULSES: Pulses normal in all extremities. -- DATA -- ALLERGIES No Known Allergies - Reported By: Pj Benavides MEDICATIONS POTASSIUM CHLORIDE 20 MEQ IV ASDIR (PRN)MAG HYDROX/AL HYDROX/SIMETH 30 ML PO Q6H PRNtraMADol HCL 50 MG PO BID (PRN)ATORVASTATIN CALCIUM 80 MG PO BEDTIMEAPIXABAN 5 MG PO BIDpolyethylene glycoL 3350 1 PKT PO DAILYDOCUSATE SODIUM 200 MG PO DAILYclopidogreL 75 MG PO DAILYbisacodyL 10 MG RECTAL ASDIR PRNGLUCAGON 1 MG IM ASDIR PRNLACTULOSE 30 ML PO ASDIR PRNCYANOCOBALAMIN 500 MCG PO DAILYMAGNESIUM 1 GM IV ASDIR PRNIPRATROPIUM BROMIDE 0.5 MG NEB RTQ6H cloNIDine HCL 0.1 MG PO Q8H PRNNITROGLYCERIN 0.4 MG SL Q5M PRNONDANSETRON HCL/PF 4 MG IV Q6H PRNLACTULOSE 30 ML PO ASDIR PRNKETOTIFEN FUMARATE 1 DROP EACH EYE BID PRNCALCIUM GLUC IN NACL, ISO-OSM 2 GM IV ASDIR PRNACETAMINOPHEN 650 MG RECTAL Q4H PRNACETAMINOPHEN 650 MG PO Q4H PRNSODIUM BICARBONATE 8.4% 50 MEQ IV .ONCE PRNAMIODARONE HCL 200 MG PO BIDDEXTROSE 50%-WATER 25 ML IV ASDIR PRNMETOPROLOL TARTRATE 5 MG IV Q6H PRNSODIUM CHLORIDE 10 mL 10 ML IV ASDIRFERROUS SULFATE 325 MG PO DAILYFUROSEMIDE 40 MG PO QAM LABS PHOS (08/19/23 03:25)PHOSPHOROUS 3.4 MAG (08/19/23 03:25)MAGNESIUM 1.9 BASIC METABOLIC PANEL (08/19/23 03:25)SODIUM 143POTASSIUM 3.9CHLORIDE 104CARBON DIOXIDE 33H HGLUCOSE 105BLOOD UREA NITROGEN 32H HGLOMERULAR FILTRATION RATE >=60 max estimateCREATININE 1.10CALCIUM 7.8 L CBC W/AUTO DIFF (08/19/23 03:25)WHITE BLOOD CELL 12.2H HRED BLOOD CELL 2.68 LHEMOGLOBIN 8.4L LHEMATOCRIT 26.4L LMEAN CELL VOLUME 98.5 HMEAN CELL HGB 31.3 HMEAN CELL HGB CONCENTRATION 31.8 LRED CELL DISTRIBUTION WIDTH 22.2 HPLATELET COUNT 228MEAN PLATELET VOLUME 10.0NEUTROPHIL % 75.5 HLYMPHOCYTE % 8.8 LMONOCYTE % 10.4 HEOSINOPHIL % 3.5BASOPHIL % 0.4NEUTROPHIL # 9.19 HLYMPHOCYTE # 1.07MONOCYTE # 1.26 HEOSINOPHIL # 0.43BASOPHIL # 0.05 VITALS Temperature F: 08/19/23 08:00 98.2 08/19/23 07:50 08/19/23 06:01 08/19/23 06:00 08/19/23 05:45 08/19/23 05:30 08/19/23 05:16 08/19/23 05:00 08/19/23 04:45 08/19/23 04:30Pulse Rate 08/19/23 08:00 08/19/23 07:50 08/19/23 06:01 91 08/19/23 06:00 89 08/19/23 05:45 90 08/19/23 05:30 92 08/19/23 05:16 91 08/19/23 05:00 88 08/19/23 04:45 91 08/19/23 04:30 91Respiratory rate: 08/19/23 08:00 08/19/23 07:50 08/19/23 06:01 19 08/19/23 06:00 21 08/19/23 05:45 20 08/19/23 05:30 8 08/19/23 05:16 29 08/19/23 05:00 18 08/19/23 04:45 17 08/19/23 04:30 17Blood pressure: 08/19/23 08:00 08/19/23 07:50 08/19/23 06:01 08/19/23 06:00 113 / 60 08/19/23 05:45 117 / 65 08/19/23 05:30 122 / 66 08/19/23 05:16 113 / 60 08/19/23 05:00 103 / 60 08/19/23 04:45 105 / 58 08/19/23 04:30 123 / 57SPO2 %: 08/19/23 08:00 08/19/23 07:50 98 08/19/23 06:01 97 08/19/23 06:00 96 08/19/23 05:45 63 08/19/23 05:30 08/19/23 05:16 84 08/19/23 05:00 97 08/19/23 04:45 97 08/19/23 04:30 97 -- ATTESTATION -- TIME SPENT ON PATIENT CARE: - Direct - Counseling - Coordination of Care - > 50% of time spent on Counseling/Care Coordination CARE ACTIVITIES / CARE COORDINATION: - I have reviewed the history and repeated the dee elements - I have seen and examined this patient - I have reviewed the progress in the clinical course since the lastexamination - I have discussed the patient's condition with other members of the care team ADDITIONAL DETAIL:Reviewed with Dr Dilshad Strong Signed in PatientKeeper by Kaleigh Gonzalez on 08/19/23 at 12:47 Cosigned by DILSHAD STRONG MD on 09/15/23 at 17:20 at 1720 at 1720ATTENTION EDITS and/or ADDENDA must be made in Patient Keeper for this note. Edits and ammendments created in [employer] are not visible in Patient Keeper or the legal medical record (HPF). [facility] #: [id number] OF REPORTPRProgress [id number]:54:00P.[id number] ailable for patient [id number]:21:19 [facility] 2023-08-19 10:09:00 [id number] +iJGF6SCje5mHqFcqg5ZCvCCYur3434-78-82U77:09:00 [facility] ([facility]) Progress Note REPORT #: [id number] REPORT STATUS: Signed DATE: 08/19/23 TIME: 1009 PATIENT: CHARLIE HART UNIT #: [id number] #: [id number] ROOM #: P.0311 BED: 1 : 35 AGE: 88 SEX: M ATTEND: Tony Gautam MD ADM AUTHOR: Nile Fuentes MD ATTENTION EDITS and/or ADDENDA must be made in Patient Keeper for this note. Edits and ammendments created in [employer] are not visible in Patient Keeper or the legal medical record (HPF). -- ASSESSMENT AND PLAN -- PROBLEMS: 1: Non-ST elevation (NSTEMI) myocardial infarctionA/P: This is a 88 year old male with Recent non-ST segment elevation myocardialinfarction- Underwent CABG x 3 on 08/13/23. Administered 1000 units Kcentra and 2000 gramsFibryga.- Monitor patient for any bleeding episodes.- Monitor chest tube output/color.- Continue ASA and Plavix.- Continue Apixaban for atrial fibrillation.- Continue ferrous sulfate 325 mg PO daily.- Monitor urine output volume/color.- Check CBC, PTT, INR, and Fibrinogen daily.- Follow up with Cardiac surgery recs.- Encourage rehab/ambulation as tolerated. Follow up with PT/OT recs. -- SUBJECTIVE -- HPI:On 2L oxygen support. Net negative fluid balance over past 24 hours. Plateletsand hemoglobin at target. -REVIEW OF SYSTEMS- GENERAL: Negative for fever, malaise, fatigue.EYES: Negative for blurry vision. No diplopia.EARS/NOSE/THROAT: Negative for sore throat. No otalgia. No rhinorrhea.RESPIRATORY: Negative for dyspnea or wheeze. No cough.CARDIOVASCULAR: Negative for chest pain or palpitations. No extremity swelling.GASTROINTESTINAL: Negative for abdominal pain or nausea. No emesis. No diarrhea.NEUROLOGICAL: Negative for headache. No vertigo. Denies paresthesias.PSYCHIATRIC: Negative for specific complaints. -- OBJECTIVE -- VITALS (08/18 10:09 - 08/19 10:09):Temperature F: 98.3 (98.2 - 98.3) Temperature source: OralPulse Rate 91 (46 - 116)Respiratory rate: 19 (8 - 31)Blood pressure: 113/60 (100/50 - 128/75)Blood pressure source: Monitor I/Os (08/18 07:00 - 08/19 07:00):Net -500Intake 1,200Output 1,700 -EXAM- GENERAL: Well developed, well nourished, in no apparent distress.HEAD: Normocephalic, atraumatic.EYES: PERRL, EOM intact, conjunctiva and sclera clear, without nystagmus, lids normal.NOSE: No deformity, no discharge, no inflammation, no lesions.MOUTH: Oropharynx without deformities or lesions, normal mucosa..NECK: No masses, no thyromegaly, no abnormal cervical nodes, trachea midline.CHEST: Round chest, midline incision intact, chest tubes in placeLUNGS: Clear bilaterally with normal respiratory effort.HEART: Regular rate and rhythm, normal S1, S2, no murmurs, no rubs, no gallops, no clicks.ABDOMEN: Soft, non-tender, no organomegaly, no masses noted.MUSCULOSKELETAL: No deformity, no scoliosis noted of thoracic or lumbar spine, joint ROM grossly normal.EXTREMITIES: No clubbing, no cyanosis, no edema.NEUROLOGICAL: SedatedPULSES: Pulses normal in all extremities.SKIN: Intact without significant lesions, or rashes.LYMPH NODES: No significant cervical node adenopathy. No significant axillary node adenopathy. No significant inguinal node adenopathy. -- DATA -- MEDICATIONS POTASSIUM CHLORIDE 20 MEQ IV ASDIR (PRN)MAG HYDROX/AL HYDROX/SIMETH 30 ML PO Q6H PRNtraMADol HCL 50 MG PO BID (PRN)ATORVASTATIN CALCIUM 80 MG PO BEDTIMEAPIXABAN 5 MG PO BIDpolyethylene glycoL 3350 1 PKT PO DAILYDOCUSATE SODIUM 200 MG PO DAILYclopidogreL 75 MG PO DAILYbisacodyL 10 MG RECTAL ASDIR PRNGLUCAGON 1 MG IM ASDIR PRNLACTULOSE 30 ML PO ASDIR PRNCYANOCOBALAMIN 500 MCG PO DAILYMAGNESIUM 1 GM IV ASDIR PRNIPRATROPIUM BROMIDE 0.5 MG NEB RTQ6H cloNIDine HCL 0.1 MG PO Q8H PRNNITROGLYCERIN 0.4 MG SL Q5M PRNONDANSETRON HCL/PF 4 MG IV Q6H PRNLACTULOSE 30 ML PO ASDIR PRNKETOTIFEN FUMARATE 1 DROP EACH EYE BID PRNCALCIUM GLUC IN NACL, ISO-OSM 2 GM IV ASDIR PRNACETAMINOPHEN 650 MG RECTAL Q4H PRNACETAMINOPHEN 650 MG PO Q4H PRNSODIUM BICARBONATE 8.4% 50 MEQ IV .ONCE PRNAMIODARONE HCL 200 MG PO BIDDEXTROSE 50%-WATER 25 ML IV ASDIR PRNMETOPROLOL TARTRATE 5 MG IV Q6H PRNSODIUM CHLORIDE 10 mL 10 ML IV ASDIRFERROUS SULFATE 325 MG PO DAILYFUROSEMIDE 40 MG PO QAM LABS PHOS (08/19/23 03:25)PHOSPHOROUS 3.4 MAG (08/19/23 03:25)MAGNESIUM 1.9 BASIC METABOLIC PANEL (08/19/23 03:25)SODIUM 143POTASSIUM 3.9CHLORIDE 104CARBON DIOXIDE 33H HGLUCOSE 105BLOOD UREA NITROGEN 32H HGLOMERULAR FILTRATION RATE >=60 max estimateCREATININE 1.10CALCIUM 7.8 L CBC W/AUTO DIFF (08/19/23 03:25)WHITE BLOOD CELL 12.2H HRED BLOOD CELL 2.68 LHEMOGLOBIN 8.4L LHEMATOCRIT 26.4L LMEAN CELL VOLUME 98.5 HMEAN CELL HGB 31.3 HMEAN CELL HGB CONCENTRATION 31.8 LRED CELL DISTRIBUTION WIDTH 22.2 HPLATELET COUNT 228MEAN PLATELET VOLUME 10.0NEUTROPHIL % 75.5 HLYMPHOCYTE % 8.8 LMONOCYTE % 10.4 HEOSINOPHIL % 3.5BASOPHIL % 0.4NEUTROPHIL # 9.19 HLYMPHOCYTE # 1.07MONOCYTE # 1.26 HEOSINOPHIL # 0.43BASOPHIL # 0.05 -- ATTESTATION -- TIME SPENT ON PATIENT CARE: - Direct 30 minutes CARE ACTIVITIES / CARE COORDINATION: - I have reviewed the history and repeated the dee elements - I have seen and examined this patient - I have reviewed the progress in the clinical course since the lastexamination - I have discussed the patient's condition with other members of the care team Signed in PatientKeeper by Nile Fuentes MD on 08/19/23 at 10:10 at 1010ATTENTION EDITS and/or ADDENDA must be made in Patient Keeper for this note. Edits and ammendments created in [employer] are not visible in Patient Keeper or the legal medical record (HPF). RPT #: [id number] OF REPORTPRProgress [id number]:09:00P.FE-[id number] ailable for patient [id number]:11:19 [facility] 2023-08-18 22:17:00 [id number]/[id number] w3BpC/JyeAgzWaKilXkDuur8/ND3415-23-31A83:17:00 [facility] ([facility]) Hospitalist Progress Note REPORT #: [id number] REPORT STATUS: Signed DATE: 08/18/23 TIME: 2216 PATIENT: CHARLIE HART UNIT #: [id number] #: [id number] ROOM #: P.0311 BED: 1 : 35 AGE: 88 SEX: M ATTEND: Tony Gautam MD ADM AUTHOR: Tony Gautam MD ATTENTION EDITS and/or ADDENDA must be made in Patient Keeper for this note. Edits and ammendments created in [employer] are not visible in Patient Keeper or the legal medical record (HPF). -- ASSESSMENT AND PLAN -- GENERAL ASSESSMENT: ASSESSMENT AND PLAN: 1. Recent non-ST segment elevation myocardial infarction, around July.S/p coronary angiogram 08/09 showing multivessel coronary artery disease,not amenable to percutaneous coronary intervention.LAD 90 to 99% lesion, left circumflex proximal 90%, 95% obtuse marginal lesion;Occluded proximal RCA. Left ventricular end-diastolic pressure 12;Left ventricular ejection fraction 40%, severe anteroapical hypokinesis.The patient is being admitted to [facility] for higher level of care.Given his multiple comorbidities, coronary intervention is being decided upon,percutaneous versus surgical.Optimized statin dose, continue aspirin and beta-blockers.Plavix was withheld only from 08/08.the patient underwent CABG x [address] Powell 08/13/22. 2. Hypertension continue metoprolol. 3. Hyperlipidemia. Increased statins to high-dose for now. 4. Pulmonary hypertension 5. Benign prostatic hyperplasia. 6. 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 7. Chronic neck pain. Continue home dose of tramadol. 8. PAF, periop, amiodarone. 9. Lactic acidosis, related to surgery. 10. Acute surgical blood loss anemia.2 units PRBC and 1 unit FFP transfused 08/13. 11. Thrombocytopenia, noncritical. 12. Acute debility.PT following. 13. S/P Atrial lead extraction and new atrial lead placement by Dr Dilshad Strong08/18/23. ADDITIONAL COMMENTS:s/p CABG by Dr. João Powell 08/13/23.s/p Atrial lead extraction and new atrial lead placement 08/18/23 -- SUBJECTIVE -- HPI: This 88-year-old gentleman has a past medical history significant forhypertension, pulmonary hypertension, Nonobstructive coronary artery disease,ischemic cardiomyopathy, with a previous ejection fraction of 40 to 50%,hyperlipidemia, benign prostatic hyperplasia, vitamin B12 deficiency, Permanentpacemaker placement in November 2021. The patient was in his usual state of healthuntil recently when he developed recurrent chest pain, suggestive of angina. Hewas taken to the [place] emergency room on August 05, 2023 where he wasruled in for non-ST segment elevation myocardial infarction. He was started onheparin and transferred to [facility] where he was observed for a coupleof days and improved on medical therapy.Echocardiogram showed apical wall motion abnormalities with preserved leftventricular ejection fraction. As the patient was doing well on medicalmanagement, he was discharged from the other hospital without intervention. Hewas seen by his primary manager front office, Dr Deyvi Celis and admitted forselective coronary angiogram on August 09, 2023 to [facility].This showed multivessel coronary artery disease, LAD 90 to 99% lesion, leftcircumflex proximal 90%, 95% obtuse marginal lesion; Occluded proximal RCA.Left ventricular end-diastolic pressure 12; Left ventricular ejection enyijmow82%, severe anteroapical hypokinesis. He has been transferred to [facility] for consideration of CABG by Dr. João Powell. PATIENT NARRATIVE: 08/10: The patient denies any chest pain or shortness of breath at this time.Denies any headache or dizziness.No nausea vomiting.labs pending.echo at the OSH shows:1. Left ventricle: The cavity size is normal. Wall thickness is normal.Systolic function is normal. The estimated ejection fraction is 50-54%.Regional wall motion abnormalities cannot be excluded. Grade I diastolicdysfunction.2. Atrial septum: No defect or patent foramen ovale is identified. He has been seen by the heart team.Given his multiple comorbidities, coronary intervention is being decided upon,percutaneous versus surgical.Plan of care discussed with the patient and his daughter, Elizabeth, at bedside. 08/11: Repeat echo over here shows:1. Left ventricle: The cavity size is normal. Wall thickness is normal.Systolic function is moderately reduced. The estimated ejection fractionis 35-39%. Wall motion is normal; there are no regional wall motion abnormalities. Grade I diastolic dysfunction.2. Aortic valve: The findings are consistent with moderate to severe stenosis.The mean systolic gradient is 15 mm Hg. The valve area is 0.98 cm 2.3. Mitral valve: The annulus is mildly to moderately calcified.Possible low flow low gradient aortic stenosis. Considerfurther evaluation with dobutamine stress echocardiogram.Patient is being evaluated by the consultants.Patient has expressed that the he would prefer getting surgery if his heartcould be taken care of percutaneously.Await final recommendations. 08/12: No acute events overnight.No chest pain or shortness of breath.After extensive discussions, the final recommendations are for CABG by Dr. Young 08/13: the patient underwent CABG x [address] Powell.Intra-op, patient went into AFib, and blood pressure dropped,so was re-explored, and eventually cardioverted. on 0.03mcg of Epinephrine.Received 2 units of PRBC, and 1 unit of FFP. 08/14: Extubated postoperative day 0.On 2 L of oxygen via nasal cannula.K low, replete. 08/15: All chest tubes removed.IJ removed.On 4 L of oxygen via nasal cannula.Walked about 25 feet with physical therapy.No bowel movement as yet.Plans for right atrial lead revision week of 08/[address] Owens 08/16: Reports that he is feeling well continues to remain on 2 L nasal cannula.S/p NADIRA today. 08/17: Patient was evaluated bedside, reports that he is feeling well. Continuesto remain on oxygen 2 L nasal cannula satting 100%. He is aware of possiblepacemaker lead revision to be done tomorrow. 08/18: underwent Atrial lead extraction and new atrial lead placement by Carlee Strong,On room air.Feels well.Progressing well. -REVIEW OF SYSTEMS- GENERAL: as above -- OBJECTIVE -- VITALS (08/17 22:17 - 08/18 22:17):Temperature F: 98.2 (98.1 - 98.8)Temperature source: OralPulse Rate 48 (48 - 116)Respiratory rate: 24 (9 - 31)Blood pressure: 112/55 (93/53 - 127/75)Blood pressure source: Monitor I/Os (08/17 07:00 - 08/18 07:00): Net -2,300Intake 200Output 2,500 -EXAM- GENERAL: Well developed, well nourished, in no apparent distress.HEAD: Normocephalic, atraumatic.EYES: PERRL, EOM intact, conjunctiva and sclera clear, without nystagmus, lids normal.EARS: markedly diminished hearing.NOSE: No deformity, no discharge, no inflammation, no lesions.MOUTH: Oropharynx without deformities or lesions, normal mucosa..NECK: No masses, no thyromegaly, no abnormal cervical nodes, trachea midline.CHEST: NANCY PPM; all CTs removedLUNGS: Clear bilaterally with normal respiratory effort.HEART: RRR; II/ LUIS at LLSBABDOMEN: Soft, non-tender, no organomegaly, no masses noted.MUSCULOSKELETAL: No deformity, no scoliosis noted of thoracic or lumbar spine, joint ROM grossly normal, normal gait and station.EXTREMITIES: No clubbing, no cyanosis, no edema.NEUROLOGICAL: No focal deficits, cranial nerves II-XII grossly intact, normal sensation, normal reflexes, normal coordination, normal muscle strength, normal tone.PULSES: Pulses normal in all extremities. -- DATA -- MEDICATIONS POTASSIUM CHLORIDE 20 MEQ IV ASDIR (PRN)MAG HYDROX/AL HYDROX/SIMETH 30 ML PO Q6H PRNtraMADol HCL 50 MG PO BID (PRN)ATORVASTATIN CALCIUM 80 MG PO BEDTIMEAPIXABAN 5 MG PO BIDpolyethylene glycoL 3350 1 PKT PO DAILYDOCUSATE SODIUM 200 MG PO DAILYclopidogreL 75 MG PO DAILYbisacodyL 10 MG RECTAL ASDIR PRNGLUCAGON 1 MG IM ASDIR PRNLACTULOSE 30 ML PO ASDIR PRNCYANOCOBALAMIN 500 MCG PO DAILYMAGNESIUM 1 GM IV ASDIR PRNIPRATROPIUM BROMIDE 0.5 MG NEB ONU7PedxKBWahm HCL 0.1 MG PO Q8H PRNNITROGLYCERIN 0.4 MG SL Q5M PRNONDANSETRON HCL/PF 4 MG IV Q6H PRNLACTULOSE 30 ML PO ASDIR PRNKETOTIFEN FUMARATE 1 DROP EACH EYE BID PRNCALCIUM GLUC IN NACL, ISO-OSM 2 GM IV ASDIR PRNACETAMINOPHEN 650 MG RECTAL Q4H PRNACETAMINOPHEN 650 MG PO Q4H PRNSODIUM BICARBONATE 8.4% 50 MEQ IV .ONCE PRNAMIODARONE HCL 200 MG PO BID DEXTROSE 50%-WATER 25 ML IV ASDIR PRNMETOPROLOL TARTRATE 5 MG IV Q6H PRNSODIUM CHLORIDE 10 mL 10 ML IV ASDIRFERROUS SULFATE 325 MG PO DAILYFUROSEMIDE 40 MG PO QAM LABS PHOS (08/18/23 03:38)PHOSPHOROUS 2.9 MAG (08/18/23 03:38)MAGNESIUM 1.9 BASIC METABOLIC PANEL (08/18/23 03:38)SODIUM 143POTASSIUM 3.8CHLORIDE 102CARBON DIOXIDE 35H HGLUCOSE 99BLOOD UREA NITROGEN 28H HGLOMERULAR FILTRATION RATE >=60 max estimateCREATININE 1.10CALCIUM 7.8 L CBC W/O DIFF (08/18/23 03:38)WHITE BLOOD CELL 9.0RED BLOOD CELL 2.94 LHEMOGLOBIN 9.0L LHEMATOCRIT 28.1L LMEAN CELL VOLUME 95.6 HMEAN CELL HGB 30.6MEAN CELL HGB CONCENTRATION 32.0 LRED CELL DISTRIBUTION WIDTH 21.8 HPLATELET COUNT 189 -- QUALITY -- -MEDICATIONS- - I attest that the foregoing medication list in the medical record is true,accurate, and complete to the best of my knowledge. -- ATTESTATION -- CARE ACTIVITIES / CARE COORDINATION: - I have reviewed the history and repeated the dee elements - I have seen and examined this patient - I have reviewed the progress in the clinical course since the lastexamination - I have discussed the patient's condition with other members of the care team Signed in PatientKeeper by Tony Gautam MD on 08/18/23 at 22:20 at 2220ATTENTION EDITS and/or ADDENDA must be made in Patient Keeper for this note. Edits and ammendments created in [facility] are not visible in Patient Keeper or the legal medical record (HPF). RPT #: [id number] OF REPORTPRProgress [id number]:17:00P.BL-[id number] ailable for patient itqkMXRITUCQMGFQHZ4538-67-06Q13:21:16 [facility] 2023-08-18 20:42:00 [id number] +HudecmAxjLup5QYNdCiuj/Kristopher [id number]-61I29:42:00 [facility] ([facility]) Operative Report REPORT #: [id number] REPORT STATUS: Signed DATE: 08/18/23 TIME: 2041 PATIENT: CHARLIE HART UNIT #: [id number] #: [id number] ROOM #: P.0311 BED: 1 : 35 AGE: 88 SEX: M ATTEND: Tony Gautam MD ADM AUTHOR: Dilshad Strong MD ATTENTION EDITS and/or ADDENDA must be made in Patient Keeper for this note. Edits and ammendments created in [employer] are not visible in Patient Keeper or the legal medical record ([facility]). -- OPERATION -- SURGERY START DATE/TIME:2023-08-18 20:42 PRE-OPERATIVE DIAGNOSIS:See Description POST-OPERATIVE DIAGNOSIS:See Description NAME OF PROCEDURE:See Description SURGEON:Dilshad Strong MD TRAFFIC DIVISION COMMANDING OFFICER(S):See Description ANESTHESIA:See Description ESTIMATED BLOOD LOSS:10 ml's FINDINGS:See Description SPECIMEN(S) REMOVED AND/OR ALTERED:See Description COMPLICATION(S):See Description -- DESCRIPTION -- DESCRIPTION OF TECHNIQUE/PROCEDURE:Atrial lead extraction and new atrial lead placement Procedure Note Exercise Scientist: Dilshad Strong MDFellow: [None]Facility: [facility] Device Foreign Banknote Teller: [employer] Referring Physician: MD Ish Date of Procedure: 08/18/23 Brief Clinical History: This is an 88yo man with a history of atrial leaddislodgement presenting for atrial lead extraction and new atrial leadplacement. Procedure Performed:Atrial lead extractionAtrial lead placement The procedure was performed utilizing moderate sedation with split doses of IVVersed and fentanyl administered by a nurse trained in conscious sedation underthe direct supervision of the performing physician. Additionally localanesthetic was administered to the sites of catheter access. Throughout the procedure, the patient was monitored by a radiology nurse. Thepatient s vital signs were stable throughout the procedure, including cardiacrhythm and oxygen saturation. Neurological checks were also performed duringthe procedure. Versed 1mg, Fentanyl 50mcg TOTAL INTRA SERVICE TIME: 30 minutes EBL: MinimalSpecimen Removed: NoneComplications: NoneCondition: Stable Summary:After obtaining informed consent, the patient was brought to thecatheterization laboratory. The [left] prepectoral area was prepped and drapedin the usual sterile fashion. Following local anesthesia, an incision was madein this area inferior to the clavicle over the prior scar. Using a combinationof sharp and blunt dissection with electrocautery the incision was carried downto the level pre-existing pocket. The device was freed from its chronic leads and scar tissue was removed.Access of the subclavian was achieved iwth modified seldinger technique underfluoroscopic guidance. The preexistent atrial lead was freed from its suturesleeve, and a stylet advanced. The helix was retracted and with gentletraction the lead was successfully removed. A 6Fr sheath was then placed over the prior wire. An atrial lead was thenplaced and fixed into position. Adequate sensing, pacing and impedance valueswere achieved with good injury pattern. The pocket was irrigated with a copious amount of antibiotic solution. Thegenerator was then connected to the leads, adequate connections of all leads tothe generator were confirmed. Appropriate sensing, pacing impedance, and pacingthresholds were tested and verified through the device. Adequate hemostasis and lead placement were verified once again and the pocketwas closed with two layers of continuous and interrupted 2.0 Vicryl sutures,4.0 Monocryl subcuticular, and dermabond at the skin level. The patienttolerated the procedure well. A sterile pressure dressing was applied. The patient s arm was immobilized and the patient was transferred from the lab instable condition. Recommendations-Patient is to take antibiotics by mouth for 5 days post procedure-Two week follow up in the office for device check-Patient to remove pressure dressing tomorrow at home-Additional instructions provided in written format to the patient Dilshad Strong M.D.Cardiac ElectrophysiologistTexas Cardiac Arrhythmia Signed in PatientKeeper by Dilshad Strong MD on 08/18/23 at 21:01 at 2101ATTENTION EDITS and/or ADDENDA must be made in Patient Keeper for this note. Edits and ammendments created in [facility] are not visible in Patient Keeper or the legal medical record (HPF). RPT #: [id number] OF REPORTOPOperative [id number]:42:00P.BP-[id number] Available for patient [id number]:02:24 [facility] 2023-08-18 15:06:00 [id number] zBt/JTMJ6WW76UckmEIfuaLmfzB0T F22GVaPpSUBTsk1+siAxvQYKsgw6829-34-77Y56:06:00 [facility] ([facility]) Intensive Care Progress Note REPORT #: [id number] REPORT STATUS: Signed DATE: 08/18/23 TIME: 1506 PATIENT: CHARLIE HART UNIT #: [id number] #: [id number] ROOM #: P.0311 BED: 1 : 35 AGE: 88 SEX: M ATTEND: Tony Gautam MD [facility] AUTHOR: Chikis Burdick MD ATTENTION EDITS and/or ADDENDA must be made in Patient Keeper for this note. Edits and ammendments created in [facility] are not visible in Patient Keeper or the legal medical record ([facility]). -- ASSESSMENT AND PLAN -- HOSPITAL COURSE TO DATE:Mr. Hart is an 88 year-old male with past medical history of hypertension,hyperlipidemia, coronary artery disease, carotid disease, presence of permanentpacemaker (2021), pulmonary hypertension, and ischemic cardiomyopathy withprevious ejection fraction 40-50% who was transferred to the CVICU from the [facility] 08/13 after CABG x 3 (incl. STANLEY-LAD) by Dr. Powell. 08/13: CABG X [address] Gil: Lt SC-Cephalic vein DVT on LUE Venous doppler: Replacement of PPM A-lead by Dr. Strong GENERAL ASSESSMENT:I have examined him, reviewed his EMR information and data and discussed hisplan of care with the other clinical and ancillary services. Assessment and Plan ICU AnalgesiaAcute postop pain- On Acetaminophen, Tramadol- Serially reassessing Symptomatic mv CADS/p CABG x 3Cardiogenic ShockVasoplegic ShockH/o HTNH/o Chronotropic incompetenceH/o Dual lead PPMH/o PAHPeriop Afib with RVRAcute Lt SC Vein DVTS/p PPM A-lead exchange- Paced rythm and adequate BP- Clean median sternotomy incision wound- Adequate perfusion indices- On ASA, Plavix, Statin- On Amiodarone- Starting Apixaban and d'cing ASA.- Serially reassessing with exam, perfusion indices- D/w Drs. Powell and Abundio who are following Acute resp insufficiency- Adequate spaO2 on LFNC- pCXR with chronic changes and mild PVC.- On IS, pulm hygiene, breathing Rx, OOB to chair, ambulation, wean FiO2,diuresis- Serially reassessing with exam, imaging and ABGs Nutrition- NPO for procedure- May resume regular diet afterwards. Acute prerenal azotemiaFluid overload- Adequate UO on Lasix- Transitioning to po diuresis- Serially reassessing with UO, lytes, fluid status Acute blood loss anemiaThrombocytopenia not present on admission- Adequate H/h, Plats and equilibrating- Serially reassessing Prophylaxis- On Lovenox- SCDs Medications reviewed with the Clinical Pharmacist Full Code per , daughterHas Advanced Care Guidelines with daughter as MPOA -- OBJECTIVE -- VITALS (08/17 15:06 - 08/18 15:06):Temperature F: 98.2 (97.9 - 98.8)Temperature source: OralPulse Rate 98 (88 - 104)Respiratory rate: 27 (11 - 27)Blood pressure: 97/57 (93/53 - 123/72)Blood pressure source: Monitor I/Os (08/17 07:00 - 08/18 07:00):Net -2,300Intake 200Output 2,500 -- DATA -- MEDICATIONS POTASSIUM CHLORIDE 20 MEQ IV ASDIR (PRN)MAG HYDROX/AL HYDROX/SIMETH 30 ML PO Q6H PRNtraMADol HCL 50 MG PO BID (PRN)ATORVASTATIN CALCIUM 80 MG PO BEDTIMEAPIXABAN 5 MG PO BIDpolyethylene glycoL 3350 1 PKT PO DAILYDOCUSATE SODIUM 200 MG PO DAILYMUPIROCIN 1 APPLIC NASAL BIDclopidogreL 75 MG PO DAILY bisacodyL 10 MG RECTAL ASDIR PRNGLUCAGON 1 MG IM ASDIR PRNLACTULOSE 30 ML PO ASDIR PRNCYANOCOBALAMIN 500 MCG PO DAILYMAGNESIUM 1 GM IV ASDIR PRNIPRATROPIUM BROMIDE 0.5 MG NEB EQP1AzslWXQtrv HCL 0.1 MG PO Q8H PRNNITROGLYCERIN 0.4 MG SL Q5M PRNONDANSETRON HCL/PF 4 MG IV Q6H PRNLACTULOSE 30 ML PO ASDIR PRNKETOTIFEN FUMARATE 1 DROP EACH EYE BID PRNCALCIUM GLUC IN NACL, ISO-OSM 2 GM IV ASDIR PRNACETAMINOPHEN 650 MG RECTAL Q4H PRNACETAMINOPHEN 650 MG PO Q4H PRNSODIUM BICARBONATE 8.4% 50 MEQ IV .ONCE PRNAMIODARONE HCL 200 MG PO BIDDEXTROSE 50%-WATER 25 ML IV ASDIR PRNMETOPROLOL TARTRATE 5 MG IV Q6H PRNSODIUM CHLORIDE 10 mL 10 ML IV ASDIRFERROUS SULFATE 325 MG PO DAILYFUROSEMIDE 40 MG PO QAM LABS PHOS (08/18/23 03:38)PHOSPHOROUS 2.9 MAG (08/18/23 03:38)MAGNESIUM 1.9 BASIC METABOLIC PANEL (08/18/23 03:38)SODIUM 143POTASSIUM 3.8CHLORIDE 102CARBON DIOXIDE 35H HGLUCOSE 99BLOOD UREA NITROGEN 28H HGLOMERULAR FILTRATION RATE >=60 max estimateCREATININE 1.10CALCIUM 7.8 L CBC W/O DIFF (08/18/23 03:38)WHITE BLOOD CELL 9.0RED BLOOD CELL 2.94 LHEMOGLOBIN 9.0L LHEMATOCRIT 28.1L LMEAN CELL VOLUME 95.6 HMEAN CELL HGB 30.6MEAN CELL HGB CONCENTRATION 32.0 LRED CELL DISTRIBUTION WIDTH 21.8 HPLATELET COUNT 189 MAG (08/17/23 16:37)MAGNESIUM 2.0 PHOS (08/17/23 16:37)PHOSPHOROUS 2.8 BASIC METABOLIC PANEL (08/17/23 16:37)SODIUM 143 POTASSIUM 4.2CHLORIDE 103CARBON DIOXIDE 36H HGLUCOSE 97BLOOD UREA NITROGEN 27H HGLOMERULAR FILTRATION RATE >=60 max estimateCREATININE 1.00CALCIUM 8.1 L -- ATTESTATION -- TIME SPENT ON PATIENT CARE: - Critical Care: time spent apart from any procedure 43 minutes CARE ACTIVITIES / CARE COORDINATION: - I have reviewed the history and repeated the dee elements - I have seen and examined this patient - I have reviewed the progress in the clinical course since the lastexamination - I have discussed the patient's condition with other members of the care team Signed in PatientKeeper by Chikis Burdick MD on 08/18/23 at 15:26 at 1526ATTENTION EDITS and/or ADDENDA must be made in Patient Keeper for this note. Edits and ammendments created in [facility] are not visible in Patient Keeper or the legal medical record ([facility]). RPT #: [id number] OF REPORTPRProgress [id number]:06:00P.UE-[id number] ailable for patient slvzPIZRGCYSDRFTOL8080-30-94T07:27:22 [facility] 2023-08-18 12:42:00 [id number] SUbIKk+/zBfO3Tp70U1Cpx0HmSPy3 [id number]/zE6591-03-48C19:42:00 [facility] ([facility]) Cardiology Progress Notes REPORT #: [id number] REPORT STATUS: Signed DATE: 08/18/23 TIME: 1242 PATIENT: CHARLIE HART UNIT #: [id number] #: [id number] [facility] AGE: 88 SEX: M ATTEND: Tony Gautam MD ADM AUTHOR: Trina Marquez MD CF1 ATTENTION EDITS and/or ADDENDA must be made in Patient Keeper for this note. Edits and ammendments created in [facility] are not visible in Patient Keeper or the legal medical record (HPF). -- CO-SIGNATURE -- COMMENTS:The patient was seen on rounds with Trina Marquez MD The patient has no complaints Examination demonstrates normal heart sounds and clear lung stanley. Impression and plan The patient is an 88-year-old gentleman with coronary artery disease and an EFbetween 40 to 50% from the outside records with anterior hypokinesis who wastransferred here for possible bypass surgery.Status post three-vessel bypass surgery.Continue aspirin and atorvastatin. If blood pressure improves we will startbeta-blockade. Start dual antiplatelet therapy.Continue amiodarone drip and transition to oral amiodarone 200 mg twice daily.Will need a lead revision of the ventricular lead. Signed in PatientKeeper by GINO DENG MD on 09/06/23 at 13:59 -- ASSESSMENT AND PLAN -- PROBLEMS: 1: Coronary artery diseaseA/P: S/P CABG x 3, POD # 5Chest tubes to remove as per CV Surgery recommendations.Asa 81 mg , Plavix 75 mg po daily, Atorvastatin 80 mg po daily.Encourage PT/OT evaluation. 2: AfibA/P: History of Atrial fibrillation s/p PPM.Intra operative Atrial fibrillation with RVR, cardioverted back to sinus, PPMinterrogated without active issue, on oral Amiodarone 200 mg BID.PPM interrogation completed. EP services following, lead misplacement, plan torevise the lead this week. -- SUBJECTIVE -- CHIEF COMPLAINT:Follow up on post-CABG PATIENT NARRATIVE:Patient denied chest pain, shortness of breath or palpitations.Workign with physical therapy.No overnight events. -- OBJECTIVE -- VITALS (08/17 12:42 - 08/18 12:42):Temperature F: 98.2 (97.9 - 98.8)Temperature source: AxillaryPulse Rate 98 (86 - 104)Respiratory rate: 27 (11 - 27)Blood pressure: 97/57 (93/53 - 137/78)Blood pressure source: Monitor I/Os (08/17 07:00 - 08/18 07:00):Net -2,300Intake 200Output 2,500 -EXAM- GENERAL: Well developed, well nourished, in no apparent distress.HEAD: Normocephalic, atraumatic.NOSE: No deformity, no discharge, no inflammation, no lesions. Nasal cannula in place.MOUTH: Oropharynx without deformities or lesions, normal mucosa.NECK: No masses, no thyromegaly, no abnormal cervical nodes, trachea midline.CHEST: Grossly normal appearance. Midline sternotomy incision intact.LUNGS: Clear bilaterally with normal respiratory effort.HEART: Regular rate and rhythm, paced rhythm, permanent pacemaker in place.ABDOMEN: Soft, non-tender, no organomegaly, no masses noted.MUSCULOSKELETAL: No deformity, no scoliosis noted of thoracic or lumbar spine, joint ROM grossly normal, normal gait and station.EXTREMITIES: No clubbing, no cyanosis, no edema.NEUROLOGICAL: No focal deficits, cranial nerves II-XII grossly intact, normal sensation, normal reflexes, normal coordination, normal muscle strength, normal tone. -- DATA -- MEDICATIONS POTASSIUM CHLORIDE 20 MEQ IV ASDIR (PRN)MAG HYDROX/AL HYDROX/SIMETH 30 ML PO Q6H PRNtraMADol HCL 50 MG PO BID (PRN)ATORVASTATIN CALCIUM 80 MG PO BEDTIME APIXABAN 5 MG PO BIDpolyethylene glycoL 3350 1 PKT PO DAILYDOCUSATE SODIUM 200 MG PO DAILYMUPIROCIN 1 APPLIC NASAL BIDclopidogreL 75 MG PO DAILYbisacodyL 10 MG RECTAL ASDIR PRNGLUCAGON 1 MG IM ASDIR PRNLACTULOSE 30 ML PO ASDIR PRNCYANOCOBALAMIN 500 MCG PO DAILYMAGNESIUM 1 GM IV ASDIR PRNIPRATROPIUM BROMIDE 0.5 MG NEB ELD6TihwYNXxkn HCL 0.1 MG PO Q8H PRNNITROGLYCERIN 0.4 MG SL Q5M PRNONDANSETRON HCL/PF 4 MG IV Q6H PRNLACTULOSE 30 ML PO ASDIR PRNKETOTIFEN FUMARATE 1 DROP EACH EYE BID PRNCALCIUM GLUC IN NACL, ISO-OSM 2 GM IV ASDIR PRNACETAMINOPHEN 650 MG RECTAL Q4H PRNACETAMINOPHEN 650 MG PO Q4H PRNSODIUM BICARBONATE 8.4% 50 MEQ IV .ONCE PRNAMIODARONE HCL 200 MG PO BIDDEXTROSE 50%-WATER 25 ML IV ASDIR PRNMETOPROLOL TARTRATE 5 MG IV Q6H PRNSODIUM CHLORIDE 10 mL 10 ML IV ASDIRFERROUS SULFATE 325 MG PO DAILYFUROSEMIDE 40 MG PO QAM LABS PHOS (08/18/23 03:38)PHOSPHOROUS 2.9 MAG (08/18/23 03:38)MAGNESIUM 1.9 BASIC METABOLIC PANEL (08/18/23 03:38)SODIUM 143POTASSIUM 3.8CHLORIDE 102CARBON DIOXIDE 35H HGLUCOSE 99BLOOD UREA NITROGEN 28H HGLOMERULAR FILTRATION RATE >=60 max estimateCREATININE 1.10CALCIUM 7.8 L CBC W/O DIFF (08/18/23 03:38)WHITE BLOOD CELL 9.0RED BLOOD CELL 2.94 LHEMOGLOBIN 9.0L LHEMATOCRIT 28.1L LMEAN CELL VOLUME 95.6 HMEAN CELL HGB 30.6MEAN CELL HGB CONCENTRATION 32.0 LRED CELL DISTRIBUTION WIDTH 21.8 HPLATELET COUNT 189 MAG (08/17/23 16:37)MAGNESIUM 2.0 PHOS (08/17/23 16:37)PHOSPHOROUS 2.8 BASIC METABOLIC PANEL (08/17/23 16:37)SODIUM 143POTASSIUM 4.2CHLORIDE 103CARBON DIOXIDE 36H HGLUCOSE 97BLOOD UREA NITROGEN 27H HGLOMERULAR FILTRATION RATE >=60 max estimateCREATININE 1.00CALCIUM 8.1 L Signed in PatientKeeper by TRINA MARQUEZ MD CF1 on 08/18/23 at 12:46 Cosigned by GINO DENG MD on 09/06/23 at 13:59 at 1359 at 1359ATTENTION EDITS and/or ADDENDA must be made in Patient Keeper for this note. Edits and ammendments created in [facility] are not visible in Patient Keeper or the legal medical record ([facility]). RPT #: [id number] OF REPORTPRProgress [id number]:42:00P.ST-[id number] ailable for patient xrmcIWSZHVWAOCILFD4446-08-45E89:13:56 [facility] 2023-08-18 09:45:00 [id number]+7kavQ//1lZWU/Y VCapP4WXXUALomGsP3fzjb1TfSq7870-10-58Z48:45:00 [facility] ([facility]) Progress Note REPORT #: [id number] REPORT STATUS: Signed DATE: 08/18/23 TIME: 944 PATIENT: CHARLIE HART UNIT #: [id number] #: [id number] ROOM #: P.0311 BED: 1 : 35 AGE: 88 SEX: M ATTEND: Tony Gautam MD ADM AUTHOR: Nile Fuentes MD ATTENTION EDITS and/or ADDENDA must be made in Patient Keeper for this note. Edits and ammendments created in [employer] are not visible in Patient Keeper or the legal medical record ([facility]). -- ASSESSMENT AND PLAN -- PROBLEMS: 1: Non-ST elevation (NSTEMI) myocardial infarctionA/P: This is a 88 year old male with Recent non-ST segment elevation myocardialinfarction- Underwent CABG x 3 on 08/13/23. Administered 1000 units Kcentra and 2000 gramsFibryga.- Monitor patient for any bleeding episodes.- Monitor chest tube output/color.- Continue ASA and Plavix.- Continue Apixaban for atrial fibrillation.- Continue ferrous sulfate 325 mg PO daily.- Monitor urine output volume/color.- Check CBC, PTT, INR, and Fibrinogen daily.- Follow up with Cardiac surgery recs.- Encourage rehab/ambulation as tolerated. Follow up with PT/OT recs. -- SUBJECTIVE -- HPI:On 2L oxygen support. Net negative fluid balance over past 24 hours. Plateletsand hemoglobin at target. -REVIEW OF SYSTEMS- GENERAL: Negative for fever, malaise, fatigue.EYES: Negative for blurry vision. No diplopia.EARS/NOSE/THROAT: Negative for sore throat. No otalgia. No rhinorrhea.RESPIRATORY: Negative for dyspnea or wheeze. No cough.CARDIOVASCULAR: Negative for chest pain or palpitations. No extremity swelling.GASTROINTESTINAL: Negative for abdominal pain or nausea. No emesis. No diarrhea.NEUROLOGICAL: Negative for headache. No vertigo. Denies paresthesias.PSYCHIATRIC: Negative for specific complaints. -- OBJECTIVE -- VITALS (08/17 09:45 - 08/18 09:45):Temperature F: 98.2 (97.9 - 98.8) Temperature source: AxillaryPulse Rate 93 (86 - 104)Respiratory rate: 21 (16 - 30)Blood pressure: 93/64 (92/51 - 145/78)Blood pressure source: Monitor I/Os (08/17 07:00 - 08/18 07:00):Net -2,300Intake 200Output 2,500 -EXAM- GENERAL: Well developed, well nourished, in no apparent distress.HEAD: Normocephalic, atraumatic.EYES: PERRL, EOM intact, conjunctiva and sclera clear, without nystagmus, lids normal.NOSE: No deformity, no discharge, no inflammation, no lesions.MOUTH: Oropharynx without deformities or lesions, normal mucosa..NECK: No masses, no thyromegaly, no abnormal cervical nodes, trachea midline.CHEST: Round chest, midline incision intact, chest tubes in placeLUNGS: Clear bilaterally with normal respiratory effort.HEART: Regular rate and rhythm, normal S1, S2, no murmurs, no rubs, no gallops, no clicks.ABDOMEN: Soft, non-tender, no organomegaly, no masses noted.MUSCULOSKELETAL: No deformity, no scoliosis noted of thoracic or lumbar spine, joint ROM grossly normal.EXTREMITIES: No clubbing, no cyanosis, no edema.NEUROLOGICAL: SedatedPULSES: Pulses normal in all extremities.SKIN: Intact without significant lesions, or rashes.LYMPH NODES: No significant cervical node adenopathy. No significant axillary node adenopathy. No significant inguinal node adenopathy. -- DATA -- MEDICATIONS POTASSIUM CHLORIDE 20 MEQ IV ASDIR (PRN)MAG HYDROX/AL HYDROX/SIMETH 30 ML PO Q6H PRNtraMADol HCL 50 MG PO BID (PRN)polyethylene glycoL 3350 1 PKT PO DAILYAPIXABAN 5 MG PO BIDDOCUSATE SODIUM 200 MG PO DAILYMUPIROCIN 1 APPLIC NASAL BIDASPIRIN 81 MG PO DAILYclopidogreL 75 MG PO DAILYbisacodyL 10 MG RECTAL ASDIR PRNGLUCAGON 1 MG IM ASDIR PRNLACTULOSE 30 ML PO ASDIR PRNCYANOCOBALAMIN 500 MCG PO DAILYMAGNESIUM 1 GM IV ASDIR PRN IPRATROPIUM BROMIDE 0.5 MG NEB PYL3XhhuXEDupf HCL 0.1 MG PO Q8H PRNNITROGLYCERIN 0.4 MG SL Q5M PRNONDANSETRON HCL/PF 4 MG IV Q6H PRNLACTULOSE 30 ML PO ASDIR PRNKETOTIFEN FUMARATE 1 DROP EACH EYE BID PRNCALCIUM GLUC IN NACL, ISO-OSM 2 GM IV ASDIR PRNACETAMINOPHEN 650 MG RECTAL Q4H PRNACETAMINOPHEN 650 MG PO Q4H PRNSODIUM BICARBONATE 8.4% 50 MEQ IV .ONCE PRNAMIODARONE HCL 200 MG PO BIDDEXTROSE 50%-WATER 25 ML IV ASDIR PRNMETOPROLOL TARTRATE 5 MG IV Q6H PRNSODIUM CHLORIDE 10 mL 10 ML IV ASDIRFERROUS SULFATE 325 MG PO DAILYFUROSEMIDE 40 MG PO QAMATORVASTATIN CALCIUM 40 MG PO BEDTIME LABS PHOS (08/18/23 03:38)PHOSPHOROUS 2.9 MAG (08/18/23 03:38)MAGNESIUM 1.9 BASIC METABOLIC PANEL (08/18/23 03:38)SODIUM 143POTASSIUM 3.8CHLORIDE 102CARBON DIOXIDE 35H HGLUCOSE 99BLOOD UREA NITROGEN 28H HGLOMERULAR FILTRATION RATE >=60 max estimateCREATININE 1.10CALCIUM 7.8 L CBC W/O DIFF (08/18/23 03:38)WHITE BLOOD CELL 9.0RED BLOOD CELL 2.94 LHEMOGLOBIN 9.0L LHEMATOCRIT 28.1L LMEAN CELL VOLUME 95.6 HMEAN CELL HGB 30.6MEAN CELL HGB CONCENTRATION 32.0 LRED CELL DISTRIBUTION WIDTH 21.8 HPLATELET COUNT 189 MAG (08/17/23 16:37)MAGNESIUM 2.0 PHOS (08/17/23 16:37)PHOSPHOROUS 2.8 BASIC METABOLIC PANEL (08/17/23 16:37)SODIUM 143POTASSIUM 4.2CHLORIDE 103CARBON DIOXIDE 36H HGLUCOSE 97 BLOOD UREA NITROGEN 27H HGLOMERULAR FILTRATION RATE >=60 max estimateCREATININE 1.00CALCIUM 8.1 L -- ATTESTATION -- TIME SPENT ON PATIENT CARE: - Direct 30 minutes CARE ACTIVITIES / CARE COORDINATION: - I have reviewed the history and repeated the dee elements - I have seen and examined this patient - I have reviewed the progress in the clinical course since the lastexamination - I have discussed the patient's condition with other members of the care team Signed in PatientKeeper by Nile Fuentes MD on 08/18/23 at 09:48 at 0948ATTENTION EDITS and/or ADDENDA must be made in Patient Keeper for this note. Edits and ammendments created in [employer] are not visible in Patient Keeper or the legal medical record (HPF). RPT #: [id number] OF REPORTPRProgress [id number]:45:[id number] ailable for patient [id number]:49:18 [facility] 2023-08-17 18:19:00 [id number] /[id number] QAtXdja0cPRm2yBsqLVCkxakmv20930-37-13G22:19:00 [facility] ([facility]) Hospitalist Progress Note REPORT #: [id number] REPORT STATUS: Signed DATE: 08/17/23 TIME: 1818 PATIENT: CHARLIE HART UNIT #: [id number]: [id number] ROOM #: P.0311 BED: 1 : 35 AGE: 88 SEX: M ATTEND: Tony Gautam MD ADM AUTHOR: Temo Herrera MD ATTENTION EDITS and/or ADDENDA must be made in Patient Keeper for this note. Edits and ammendments created in [employer] are not visible in Patient Keeper or the legal medical record (HPF). -- ASSESSMENT AND PLAN -- GENERAL ASSESSMENT: ASSESSMENT AND PLAN: 1. Recent non-ST segment elevation myocardial infarction, around July.S/p coronary angiogram 08/09 showing multivessel coronary artery disease,not amenable to percutaneous coronary intervention.LAD 90 to 99% lesion, left circumflex proximal 90%, 95% obtuse marginal lesion;Occluded proximal RCA. Left ventricular end-diastolic pressure 12;Left ventricular ejection fraction 40%, severe anteroapical hypokinesis.The patient is being admitted to [facility] for higher level of care.Given his multiple comorbidities, coronary intervention is being decided upon,percutaneous versus surgical.Optimized statin dose, continue aspirin and beta-blockers.Plavix was withheld only from 08/08.the patient underwent CABG x [address] Powell 08/13/22. NADIRA 08/16:1. Left ventricle: The cavity size is normal. Systolic function ismoderately reduced.2. Left atrium: There is no evidence of a thrombus in the atrial cavity orappendage. No spontaneous echo contrast is observed.3. Right atrium: There is no evidence of a thrombus in the atrial cavity orappendage.4. Atrial septum: No defect or patent foramen ovale is identified. Dopplerand echo contrast study shows no mjjjb-nx-svyb atrial level shunt.5. Aortic valve: Cusp separation is mildly reduced. The findings areconsistent with mild stenosis.6. Mitral valve: There is no evidence of vegetation.7. Tricuspid valve: There is no evidence of a vegetation.8. Pulmonic valve: There is no evidence of a vegetation.Electronically signed by 2. Hypertension continue metoprolol. 3. Hyperlipidemia. Increased statins to high-dose for now. 4. Pulmonary hypertension 5. Benign prostatic hyperplasia. 6. 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 Plan for lead revision on Friday 7. Chronic neck pain. Continue home dose of tramadol. 8. PAF, periop, amiodarone. 9. Lactic acidosis, related to surgery. 10. Acute surgical blood loss anemia.2 units PRBC and 1 unit FFP transfused 08/13. 11. Thrombocytopenia, noncritical. 12. Acute debility.PT following. ADDITIONAL COMMENTS: s/p CABG by Dr. João Powell 08/13/22.Plans for right atrial lead revision week of 08/[address] Mc postoperative care -- SUBJECTIVE -- HPI:This 88-year-old gentleman has a past medical history significant forhypertension, pulmonary hypertension, Nonobstructive coronary artery disease,ischemic cardiomyopathy, with a previous ejection fraction of 40 to 50%,hyperlipidemia, benign prostatic hyperplasia, vitamin B12 deficiency, Permanentpacemaker placement in November 2021. The patient was in his usual state of healthuntil recently when he developed recurrent chest pain, suggestive of angina. Hewas taken [place] the [place] on August 05, 2023 where he wasruled in for non-ST segment elevation myocardial infarction. He was started onheparin and transferred to [facility] where he was observed for a coupleof days and improved on medical therapy.Echocardiogram showed apical wall motion abnormalities with preserved leftventricular ejection fraction. As the patient was doing well on medicalmanagement, he was discharged from the other hospital without intervention. Hewas seen by his primary manager front office, Dr Deyvi Celis and admitted forselective coronary angiogram on August 09, 2023 to [facility].This showed multivessel coronary artery disease, LAD 90 to 99% lesion, leftcircumflex proximal 90%, 95% obtuse marginal lesion; Occluded proximal RCA.Left ventricular end-diastolic pressure 12; Left ventricular ejection jdobwmyc28%, severe anteroapical hypokinesis. He has been transferred to [facility] for consideration of CABG by Dr. João Powell. PATIENT NARRATIVE:08/10: The patient denies any chest pain or shortness of breath at this time.Denies any headache or dizziness.No nausea vomiting.labs pending.echo at the OSH shows:1. Left ventricle: The cavity size is normal. Wall thickness is normal.Systolic function is normal. The estimated ejection fraction is 50-54%.Regional wall motion abnormalities cannot be excluded. Grade I diastolicdysfunction.2. Atrial septum: No defect or patent foramen ovale is identified. He has been seen by the heart team. Given his multiple comorbidities, coronary intervention is being decided upon,percutaneous versus surgical.Plan of care discussed with the patient and his daughter, Elizabeth, at bedside. 08/11: Repeat echo over here shows:1. Left ventricle: The cavity size is normal. Wall thickness is normal.Systolic function is moderately reduced. The estimated ejection fractionis 35-39%. Wall motion is normal; there are no regional wall motionabnormalities. Grade I diastolic dysfunction.2. Aortic valve: The findings are consistent with moderate to severe stenosis.The mean systolic gradient is 15 mm Hg. The valve area is 0.98 cm 2.3. Mitral valve: The annulus is mildly to moderately calcified.Possible low flow low gradient aortic stenosis. Considerfurther evaluation with dobutamine stress echocardiogram.Patient is being evaluated by the consultants.Patient has expressed that the he would prefer getting surgery if his heartcould be taken care of percutaneously.Await final recommendations. 08/12: No acute events overnight.No chest pain or shortness of breath.After extensive discussions, the final recommendations are for CABG by Dr. Young 08/13: the patient underwent CABG x [address] Powell.Intra-op, patient went into AFib, and blood pressure dropped,so was re-explored, and eventually cardioverted. on 0.03mcg of Epinephrine.Received 2 units of PRBC, and 1 unit of FFP. 08/14: Extubated postoperative day 0.On 2 L of oxygen via nasal cannula.K low, replete. 08/15: All chest tubes removed.IJ removed.On 4 L of oxygen via nasal cannula.Walked about 25 feet with physical therapy.No bowel movement as yet.Plans for right atrial lead revision week of 08/[address] Owens 08/16: Reports that he is feeling well continues to remain on 2 L nasal cannula.S/p NADIRA today. 08/17: Patient was evaluated bedside, reports that he is feeling well. Continuesto remain on oxygen 2 L nasal cannula satting 100%. He is aware of possiblepacemaker lead revision to be done tomorrow. -REVIEW OF SYSTEMS- COMMENT: 10 point review of system was negative except as mentioned in the HPI. -- OBJECTIVE -- VITALS (08/16 18:19 - 08/17 18:19):Temperature F: 98.6 (97.2 - 98.6)Temperature source: OralPulse Rate 99 (77 - 104)Respiratory rate: 22 (8 - 30)Blood pressure: 100/68 (92/51 - 145/78) Blood pressure source: Monitor I/Os (08/16 07:00 - 08/17 07:00):Net 436.00Intake 2,238.00Output 1,802 -EXAM- OTHER: Physical Exam - GENERAL: Alert and oriented x 3. Frail appearing on 2L NC - EYES: EOMI. Anicteric. - HENT: Moist mucous membranes. No scleral icterus. No cervical lymphadenopathy. - LUNGS: Clear to auscultation bilaterally. No accessory muscle use. - CARDIOVASCULAR: Regular rate and rhythm. No murmur. No JVD. - ABDOMEN: Soft, non-tender and non-distended. No palpable masses. - EXTREMITIES: No edema. Non-tender. - SKIN: No rashes or lesions. Warm. - NEUROLOGIC: No focal neurological deficits. CN II-XII grossly intact, but not individually tested. - PSYCHIATRIC: Cooperative. Appropriate mood and affect. -- DATA -- MEDICATIONS POTASSIUM CHLORIDE 20 MEQ IV ASDIR (PRN)MAG HYDROX/AL HYDROX/SIMETH 30 ML PO Q6H PRNtraMADol HCL 50 MG PO BID (PRN)polyethylene glycoL 3350 1 PKT PO DAILYDOCUSATE SODIUM 200 MG PO DAILYENOXAPARIN SODIUM 40 MG SUBQ DAILYMUPIROCIN 1 APPLIC NASAL BIDASPIRIN 81 MG PO DAILYclopidogreL 75 MG PO DAILYbisacodyL 10 MG RECTAL ASDIR PRNGLUCAGON 1 MG IM ASDIR PRNLACTULOSE 30 ML PO ASDIR PRNCYANOCOBALAMIN 500 MCG PO DAILYMAGNESIUM 1 GM IV ASDIR PRNIPRATROPIUM BROMIDE 0.5 MG NEB JAK2VydfDHHsrr HCL 0.1 MG PO Q8H PRNNITROGLYCERIN 0.4 MG SL Q5M PRNONDANSETRON HCL/PF 4 MG IV Q6H PRNLACTULOSE 30 ML PO ASDIR PRNKETOTIFEN FUMARATE 1 DROP EACH EYE BID PRNCALCIUM GLUC IN NACL, ISO-OSM 2 GM IV ASDIR PRNACETAMINOPHEN 650 MG RECTAL Q4H PRNACETAMINOPHEN 650 MG PO Q4H PRNSODIUM BICARBONATE 8.4% 50 MEQ IV .ONCE PRNAMIODARONE HCL 200 MG PO BIDDEXTROSE 50%-WATER 25 ML IV ASDIR PRNMETOPROLOL TARTRATE 5 MG IV Q6H PRNFUROSEMIDE 20 MG IV Q8HR SODIUM CHLORIDE 10 mL 10 ML IV ASDIRFERROUS SULFATE 325 MG PO DAILYATORVASTATIN CALCIUM 40 MG PO BEDTIME LABS MAG (08/17/23 16:37)MAGNESIUM 2.0 PHOS (08/17/23 16:37)PHOSPHOROUS 2.8 BASIC METABOLIC PANEL (08/17/23 16:37)SODIUM 143POTASSIUM 4.2CHLORIDE 103CARBON DIOXIDE 36H HGLUCOSE 97BLOOD UREA NITROGEN 27H HGLOMERULAR FILTRATION RATE >=60 max estimateCREATININE 1.00CALCIUM 8.1 L PHOS (08/17/23 04:52)PHOSPHOROUS 2.6 CBC W/AUTO DIFF (08/17/23 04:52)WHITE BLOOD CELL 10.1RED BLOOD CELL 2.93 LHEMOGLOBIN 9.1L LHEMATOCRIT 28.3L LMEAN CELL VOLUME 96.6 HMEAN CELL HGB 31.1 HMEAN CELL HGB CONCENTRATION 32.2 LRED CELL DISTRIBUTION WIDTH 22.3 HPLATELET COUNT 125L LMEAN PLATELET VOLUME 10.2NEUTROPHIL % 76.8 HLYMPHOCYTE % 8.0 LMONOCYTE % 10.0 HEOSINOPHIL % 4.1BASOPHIL % 0.3NEUTROPHIL # 7.74 HLYMPHOCYTE # 0.81 LMONOCYTE # 1.01 HEOSINOPHIL # 0.41BASOPHIL # 0.03 BASIC METABOLIC PANEL (08/17/23 04:52)SODIUM 143POTASSIUM 3.8CHLORIDE 104CARBON DIOXIDE 34H HGLUCOSE 98BLOOD UREA NITROGEN 26H HGLOMERULAR FILTRATION RATE >=60 max estimateCREATININE 1.10CALCIUM 8.2 L MAG (08/17/23 04:52) MAGNESIUM 2.1 -- ATTESTATION -- ADDITIONAL DETAIL:I have spent greater than 45 minutes with the patient and reviewing informationfor patient care. > 50% time spent on counseling/coordination of care Signed in PatientKeeper by Temo Herrera MD on 08/17/23 at 18:25 at 1825ATTENTION EDITS and/or ADDENDA must be made in Patient Keeper for this note. Edits and ammendments created in [facility] are not visible in Patient Keeper or the legal medical record (HPF). RPT #: [id number] OF REPORTPRProgress [id number]:19:00P.[id number] ailable for patient ocglXMJZBROMRJVHUJ3271-81-00B81:26:07 [facility] 2023-08-17 14:07:00 [id number] d0nYpZ8dyPoXWyuGwljoAJ0a+NX5450-28-70S76:07:00 [facility] ([facility]) Intensive Care Progress Note REPORT #: [id number] REPORT STATUS: Signed DATE: 08/17/23 TIME: 1407 PATIENT: CHARLIE HART UNIT #: [id number] #: [id number] ROOM #: P.0311 BED: 1 : 35 AGE: 88 SEX: M ATTEND: Tony Gautam MD ADM AUTHOR: Chikis Burdick MD ATTENTION EDITS and/or ADDENDA must be made in Patient Keeper for this note. Edits and ammendments created in [facility] are not visible in Patient Keeper or the legal medical record (HPF). -- ASSESSMENT AND PLAN -- HOSPITAL COURSE TO DATE:Mr. Hart is an 88 year-old male with past medical history of hypertension,hyperlipidemia, coronary artery disease, carotid disease, presence of permanentpacemaker (2021), pulmonary hypertension, and ischemic cardiomyopathy withprevious ejection fraction 40-50% who was transferred to the CVICU [facility] 08/13 after CABG x 3 (incl. STANLEY-LAD) by Dr. Powell. GENERAL ASSESSMENT:I have examined him, reviewed his EMR information and data and discussed hisplan of care with the other clinical and ancillary services. Assessment and Plan ICU AnalgesiaAcute postop pain- On Acetaminophen, Tramadol- Serially reassessing Symptomatic mv CADS/p CABG x 3Cardiogenic ShockVasoplegic ShockH/o HTNH/o Dual lead PPMH/o PAHPeriop Afib with RVR- Paced rythm and adequate BP- Clean median sternotomy incision wound- Adequate perfusion indices- On ASA, Plavix, Statin- On Amiodarone- Serially reassessing with exam, perfusion indices- D/w Dr. Powell who is following Acute resp insufficiency- Adequate spaO2 on LFNC- Audible airway congestion- pCXR with reduced volumes, Bibasilar atelectasis, mild PVC- On IS, pulm hygiene, breathing Rx, OOB to chair, ambulation, wean FiO2,diuresis- Serially reassessing with exam, imaging and ABGs Nutrition- On Regular diet Acute prerenal azotemiaFluid overload- Adequate UO on Lasix- Serially reassessing UO, lytes, fluid status Acute blood loss anemiaThrombocytopenia not present on admission- Adequate H/h, Plats and equilibrating- Serially reassessing Prophylaxis- On Lovenox- SCDs Medications reviewed with the Clinical Pharmacist Full Code per , daughterHas Advanced Care Guidelines with daughter as MPOA -- OBJECTIVE -- VITALS (08/16 14:08 - 08/17 14:08):Temperature F: 98.2 (97.2 - 98.5)Temperature source: OralPulse Rate 99 (77 - 101)Respiratory rate: 23 (8 - 30)Blood pressure: 145/71 (96/57 - 145/80)Blood pressure source: Monitor I/Os (08/16 07:00 - 08/17 07:00):Net 436.00Intake 2,238.00Output 1,802 -- DATA -- MEDICATIONS POTASSIUM CHLORIDE 20 MEQ IV ASDIR (PRN)MAG HYDROX/AL HYDROX/SIMETH 30 ML PO Q6H PRNtraMADol HCL 50 MG PO BID (PRN)polyethylene glycoL 3350 1 PKT PO DAILYDOCUSATE SODIUM 200 MG PO DAILYFUROSEMIDE 20 MG IV BIDENOXAPARIN SODIUM 40 MG SUBQ DAILYMUPIROCIN 1 APPLIC NASAL BIDASPIRIN 81 MG PO DAILYclopidogreL 75 MG PO DAILYbisacodyL 10 MG RECTAL ASDIR PRNGLUCAGON 1 MG IM ASDIR PRNLACTULOSE 30 ML PO ASDIR PRNCYANOCOBALAMIN 500 MCG PO DAILYMAGNESIUM 1 GM IV ASDIR PRNIPRATROPIUM BROMIDE 0.5 MG NEB KSF3UzvbTJBvyl HCL 0.1 MG PO Q8H PRNNITROGLYCERIN 0.4 MG SL Q5M PRN ONDANSETRON HCL/PF 4 MG IV Q6H PRNLACTULOSE 30 ML PO ASDIR PRNKETOTIFEN FUMARATE 1 DROP EACH EYE BID PRNCALCIUM GLUC IN NACL, ISO-OSM 2 GM IV ASDIR PRNACETAMINOPHEN 650 MG RECTAL Q4H PRNACETAMINOPHEN 650 MG PO Q4H PRNSODIUM BICARBONATE 8.4% 50 MEQ IV .ONCE PRNAMIODARONE HCL 200 MG PO BIDDEXTROSE 50%-WATER 25 ML IV ASDIR PRNMETOPROLOL TARTRATE 5 MG IV Q6H PRNSODIUM CHLORIDE 10 mL 10 ML IV ASDIRFERROUS SULFATE 325 MG PO DAILYATORVASTATIN CALCIUM 40 MG PO BEDTIME LABS PHOS (08/17/23 04:52)PHOSPHOROUS 2.6 CBC W/AUTO DIFF (08/17/23 04:52)WHITE BLOOD CELL 10.1RED BLOOD CELL 2.93 LHEMOGLOBIN 9.1L LHEMATOCRIT 28.3L LMEAN CELL VOLUME 96.6 HMEAN CELL HGB 31.1 HMEAN CELL HGB CONCENTRATION 32.2 LRED CELL DISTRIBUTION WIDTH 22.3 HPLATELET COUNT 125L LMEAN PLATELET VOLUME 10.2NEUTROPHIL % 76.8 HLYMPHOCYTE % 8.0 LMONOCYTE % 10.0 HEOSINOPHIL % 4.1BASOPHIL % 0.3NEUTROPHIL # 7.74 HLYMPHOCYTE # 0.81 LMONOCYTE # 1.01 HEOSINOPHIL # 0.41BASOPHIL # 0.03 BASIC METABOLIC PANEL (08/17/23 04:52)SODIUM 143POTASSIUM 3.8CHLORIDE 104CARBON DIOXIDE 34H HGLUCOSE 98BLOOD UREA NITROGEN 26H HGLOMERULAR FILTRATION RATE >=60 max estimateCREATININE 1.10CALCIUM 8.2 L MAG (08/17/23 04:52)MAGNESIUM 2.1 PHOS (08/16/23 16:09)PHOSPHOROUS 2.4 MAG (08/16/23 16:09)MAGNESIUM 2.0 BASIC METABOLIC PANEL (08/16/23 16:09)SODIUM 144POTASSIUM 4.2CHLORIDE 105CARBON DIOXIDE 32H HGLUCOSE 96BLOOD UREA NITROGEN 28H HGLOMERULAR FILTRATION RATE >=60 max estimateCREATININE 1.10CALCIUM 7.8 L PLATELET COUNT 08/17/23 04:52 125 x10 3/uL 08/16/23 02:57 150 x10 3/uL 08/15/23 03:05 126 x10 3/uL 08/14/23 03:14 144 x10 3/uL 08/13/23 21:00 144 x10 3/uL 08/13/23 15:59 215 x10 3/uL 08/13/23 15:06 112 x10 3/uL 08/12/23 16:37 183 x10 3/uL 08/10/23 15:49 172 x10 3/uL -- ATTESTATION -- TIME SPENT ON PATIENT CARE: - Critical Care: time spent apart from any procedure 39 minutes CARE ACTIVITIES / CARE COORDINATION: - I have reviewed the history and repeated the dee elements - I have seen and examined this patient - I have reviewed the progress in the clinical course since the lastexamination - I have discussed the patient's condition with other members of the care team Signed in PatientKeeper by Chikis Burdick MD on 08/17/23 at 14:26 at 1426ATTENTION EDITS and/or ADDENDA must be made in Patient Keeper for this note. Edits and ammendments created in [facility] are not visible in Patient Keeper or the legal medical record ([facility]). RPT #: [id number] OF REPORTPRProgress [id number]:07:00P.[id number] ailable for patient gcdxRXFLUVMZVHKPEL3230-05-03E58:26:46 [facility] 2023-08-17 11:45:00 [id number] RdVMqPjrlVglv22X6/Euo88uSCzwn BJqETqfEt+4M/FlKTonufpuyE9V2666-17-91O18:45:00 [facility] ([facility]) Cardiology Progress Notes REPORT #: [id number] REPORT STATUS: Signed DATE: 08/17/23 TIME: 1145 PATIENT: CHARLIE HART UNIT #: [id number] #: [id number] ROOM #: P.0418 BED: A : 35 AGE: 88 SEX: M ATTEND: Tony Gautam MD ADM AUTHOR: Trina Marquez MD CF1 ATTENTION EDITS and/or ADDENDA must be made in Patient Keeper for this note. Edits and ammendments created in [facility] are not visible in Patient Keeper or the legal medical record ([facility]). -- CO-SIGNATURE -- COMMENTS:I have personally seen and examined the patient independently, and reviewed thepatient's history, exam, and all cardiac and laboratory data on 08/17/23. Iagree with the history, physical, and the assessment and plan as outlined byTrina Dooley MD, Cardiovascular Fellow. Signed in PatientKeeper by OSKAR GODINEZ MD on 09/14/23 at 22:25 -- ADDITIONAL COMMENTS -- COMMENTS:Note please that patient is not on beta blockers for PPM is present and isbeing investigated by EPCurrently he is on Amiodarone 200 mg BID for afib. Signed in PatientKeeper by TRINA MARQUEZ MD CF1 on 08/17/23 at 13:59 -- ASSESSMENT AND PLAN -- GENERAL ASSESSMENT:Mr. Hart is a 88 years old gentleman who underwent 3 Vessels CABG anddeveloped cardiogenic and vasoplegic shock, also suffered from atrialfibrillation in the OR, cardioverted intraoperatively, maintained on IVAmiodarone drip and now on oral amiodaron, doing well, and is on nasal cannulasupplemental oxygen, this morning even more stable was planning to work withphysical therapy. PROBLEMS: 1: Coronary artery diseaseA/P: S/P CABG x 3, POD # 4Chest tubes to remove as per CV Surgery recommendations.Asa 81 mg , Plavix 75 mg po daily, Atorvastatin 80 mg po daily. 2: AfibA/P: History of Atrial fibrillation s/p PPM.Intra operative Atrial fibrillation with RVR, cardioverted back to sinus, PPMinterrogated without active issue, on oral 200 mg BID.PPM interrogation completed. EP services following, lead misplacement, plan torevise the lead next week. -- SUBJECTIVE -- CHIEF COMPLAINT:Follow up on post CABG cardiology assessment HPI:Mr. Hart is an 88 years old male sent by Dr. Oakley after finding ofmultivessels CAD s/p CABG X 3, complicated by intraoperative Atrialfibrillation which improved with Amiodarone drip, followed by EP, initialinterrogation without new findins. PATIENT NARRATIVE:Patient was seen this AM in his room. He denied chest pain, shortness of breathor palpitations. -- OBJECTIVE -- VITALS (08/16 11:45 - 08/17 11:45):Temperature F: 98.2 (97.2 - 98.5)Temperature source: OralPulse Rate 99 (77 - 101)Respiratory rate: 23 (8 - 30)Blood pressure: 145/71 (95/54 - 145/80)Blood pressure source: Monitor I/Os (08/16 07:00 - 08/17 07:00):Net 436.00Intake 2,238.00Output 1,802 -EXAM- GENERAL: Well developed, well nourished, in no apparent distress. sedated intubated.HEAD: Normocephalic, atraumatic.NOSE: No deformity, no discharge, no inflammation, no lesions. Nasal cannula in place.MOUTH: Oropharynx without deformities or lesions, normal mucosa.ETT in place.NECK: No masses, no thyromegaly, no abnormal cervical nodes, trachea midline.CHEST: Grossly normal appearance. Midline incision intact.LUNGS: Clear bilaterally with normal respiratory effort.HEART: Regular rate and rhythm, normal S1, S2, no murmurs, no rubs, no gallops, no clicks.ABDOMEN: Soft, non-tender, no organomegaly, no masses noted.MUSCULOSKELETAL: No deformity, no scoliosis noted of thoracic or lumbar spine, joint ROM grossly normal, normal gait and station.EXTREMITIES: No clubbing, no cyanosis, no edema.NEUROLOGICAL: No focal deficits, cranial nerves II-XII grossly intact, normal sensation, normal reflexes, normal coordination, normal muscle strength, normal tone. -- DATA -- MEDICATIONS POTASSIUM CHLORIDE 20 MEQ IV ASDIR (PRN)MAG HYDROX/AL HYDROX/SIMETH 30 ML PO Q6H PRNtraMADol HCL 50 MG PO BID (PRN)polyethylene glycoL 3350 1 PKT PO DAILYDOCUSATE SODIUM 200 MG PO DAILYFUROSEMIDE 20 MG IV BIDENOXAPARIN SODIUM 40 MG SUBQ DAILYMUPIROCIN 1 APPLIC NASAL BIDASPIRIN 81 MG PO DAILYclopidogreL 75 MG PO DAILYbisacodyL 10 MG RECTAL ASDIR PRNGLUCAGON 1 MG IM ASDIR PRNLACTULOSE 30 ML PO ASDIR PRNCYANOCOBALAMIN 500 MCG PO DAILYMAGNESIUM 1 GM IV ASDIR PRNIPRATROPIUM BROMIDE 0.5 MG NEB EKW7UxqeDEOawk HCL 0.1 MG PO Q8H PRNNITROGLYCERIN 0.4 MG SL Q5M PRNONDANSETRON HCL/PF 4 MG IV Q6H PRNLACTULOSE 30 ML PO ASDIR PRNKETOTIFEN FUMARATE 1 DROP EACH EYE BID PRNCALCIUM GLUC IN NACL, ISO-OSM 2 GM IV ASDIR PRNACETAMINOPHEN 650 MG RECTAL Q4H PRNACETAMINOPHEN 650 MG PO Q4H PRNSODIUM BICARBONATE 8.4% 50 MEQ IV .ONCE PRNAMIODARONE HCL 200 MG PO BIDDEXTROSE 50%-WATER 25 ML IV ASDIR PRNMETOPROLOL TARTRATE 5 MG IV Q6H PRNSODIUM CHLORIDE 10 mL 10 ML IV ASDIRFERROUS SULFATE 325 MG PO DAILYATORVASTATIN CALCIUM 40 MG PO BEDTIME LABS PHOS (08/17/23 04:52)PHOSPHOROUS 2.6 CBC W/AUTO DIFF (08/17/23 04:52)WHITE BLOOD CELL 10.1RED BLOOD CELL 2.93 LHEMOGLOBIN 9.1L LHEMATOCRIT 28.3L LMEAN CELL VOLUME 96.6 HMEAN CELL HGB 31.1 HMEAN CELL HGB CONCENTRATION 32.2 LRED CELL DISTRIBUTION WIDTH 22.3 HPLATELET COUNT 125L LMEAN PLATELET VOLUME 10.2NEUTROPHIL % 76.8 HLYMPHOCYTE % 8.0 LMONOCYTE % 10.0 HEOSINOPHIL % 4.1BASOPHIL % 0.3NEUTROPHIL # 7.74 HLYMPHOCYTE # 0.81 LMONOCYTE # 1.01 HEOSINOPHIL # 0.41BASOPHIL # 0.03 BASIC METABOLIC PANEL (08/17/23 04:52)SODIUM 143POTASSIUM 3.8CHLORIDE 104CARBON DIOXIDE 34H HGLUCOSE 98BLOOD UREA NITROGEN 26H HGLOMERULAR FILTRATION RATE >=60 max estimateCREATININE 1.10CALCIUM 8.2 L MAG (08/17/23 04:52)MAGNESIUM 2.1 PHOS (08/16/23 16:09)PHOSPHOROUS 2.4 MAG (08/16/23 16:09)MAGNESIUM 2.0 BASIC METABOLIC PANEL (08/16/23 16:09)SODIUM 144POTASSIUM 4.2CHLORIDE 105CARBON DIOXIDE 32H HGLUCOSE 96BLOOD UREA NITROGEN 28H HGLOMERULAR FILTRATION RATE >=60 max estimateCREATININE 1.10CALCIUM 7.8 L Signed in PatientKeeper by TRINA MARQUEZ MD CF1 on 08/17/23 at 12:07 Cosigned by OSKAR GODINEZ MD on 09/14/23 at 22:25 at 2225 at 2225ATTENTION EDITS and/or ADDENDA must be made in Patient Keeper for this note. Edits and ammendments created in [employer] are not visible in Patient Keeper or the legal medical record ([facility]). RPT #: [id number] OF REPORTPRProgress [id number]:45:00P.[id number]-[id number] ailable for patient evfdOKKQLFITMBJZVB8522-64-03I43:25:54 [facility] 2023-08-16 19:45:00 [id number]/[id number] Zd7sFyx55nfOqkeUMKlWu672KYo0174-11-19T08:45:00 [facility] ([facility]) Hospitalist Progress Note REPORT #: [id number] REPORT STATUS: Signed DATE: 08/16/23 TIME: 1944 PATIENT: CHARLIE HART UNIT #: [id number]: [id number] ROOM #: P.0311 BED: 1 : 35 AGE: 88 SEX: M ATTEND: Tony Gautam MD ADM AUTHOR: Temo Herrera MD ATTENTION EDITS and/or ADDENDA must be made in Patient Keeper for this note. Edits and ammendments created in [employer] are not visible in Patient Keeper or the legal medical record ([facility]). -- ASSESSMENT AND PLAN -- GENERAL ASSESSMENT:ASSESSMENT AND PLAN: 1. Recent non-ST segment elevation myocardial infarction, around July.S/p coronary angiogram 08/09 showing multivessel coronary artery disease,not amenable to percutaneous coronary intervention.LAD 90 to 99% lesion, left circumflex proximal 90%, 95% obtuse marginal lesion;Occluded proximal RCA. Left ventricular end-diastolic pressure 12;Left ventricular ejection fraction 40%, severe anteroapical hypokinesis.The patient is being admitted to [facility] for higher level of care.Given his multiple comorbidities, coronary intervention is being decided upon,percutaneous versus surgical.Optimized statin dose, continue aspirin and beta-blockers.Plavix was withheld only from 08/08.the patient underwent CABG x [address] Powell 08/13/22. NADIRA 08/16:1. Left ventricle: The cavity size is normal. Systolic function ismoderately reduced.2. Left atrium: There is no evidence of a thrombus in the atrial cavity orappendage. No spontaneous echo contrast is observed.3. Right atrium: There is no evidence of a thrombus in the atrial cavity orappendage.4. Atrial septum: No defect or patent foramen ovale is identified. Dopplerand echo contrast study shows no uwdnc-ne-udxk atrial level shunt.5. Aortic valve: Cusp separation is mildly reduced. The findings areconsistent with mild stenosis.6. Mitral valve: There is no evidence of vegetation.7. Tricuspid valve: There is no evidence of a vegetation.8. Pulmonic valve: There is no evidence of a vegetation.Electronically signed by 2. Hypertension continue metoprolol. 3. Hyperlipidemia. Increased statins to high-dose for now. 4. Pulmonary hypertension 5. Benign prostatic hyperplasia. 6. 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 Plan for lead revision on Friday 7. Chronic neck pain. Continue home dose of tramadol. 8. PAF, periop, amiodarone. 9. Lactic acidosis, related to surgery. 10. Acute surgical blood loss anemia.2 units PRBC and 1 unit FFP transfused 08/13. 11. Thrombocytopenia, noncritical. 12. Acute debility.PT following. ADDITIONAL COMMENTS:s/p CABG by Dr. João Powell 08/13/22.Plans for right atrial lead revision week of 08/[address] Mc postoperative care -- SUBJECTIVE -- HPI:This 88-year-old gentleman has a past medical history significant forhypertension, pulmonary hypertension,Nonobstructive coronary artery disease, ischemic cardiomyopathy, with aprevious ejection fraction of 40 to 50%,hyperlipidemia, benign prostatic hyperplasia, vitamin B12 deficiency, Permanentpacemaker placement in November 2021.The patient was in his usual state of health until recently when he developedrecurrent chest pain, suggestive of angina.He was taken to the [place] emergency room on August 05, 2023 where he wasruled in for non-ST segment elevation myocardial infarction.He was started on heparin and transferred to [facility] where he wasobserved for a couple of days and improved on medical therapy.Echocardiogram showed apical wall motion abnormalities with preserved leftventricular ejection fraction.As the patient was doing well on medical management, [facility].He was seen by his primary manager front office, Dr Deyvi Celis and admitted forselective coronary angiogramon August 09, 2023 to [facility].This showed multivessel coronary artery disease,LAD 90 to 99% lesion, left circumflex proximal 90%, 95% obtuse marginal lesion;Occluded proximal RCA. Left ventricular end-diastolic pressure 12;Left ventricular ejection fraction 40%, severe anteroapical hypokinesis.He has been transferred to [facility] for consideration of CABG by Dr.Eyal Powell.When seen in the room the patient is awake alert and oriented and verbalizesthe above. PATIENT NARRATIVE:08/10: The patient denies any chest pain or shortness of breath at this time.Denies any headache or dizziness.No nausea vomiting.labs pending.echo at the OSH shows:1. Left ventricle: The cavity size is normal. Wall thickness is normal.Systolic function is normal. The estimated ejection fraction is 50-54%. Regional wall motion abnormalities cannot be excluded. Grade I diastolicdysfunction.2. Atrial septum: No defect or patent foramen ovale is identified. He has been seen by the heart team.Given his multiple comorbidities, coronary intervention is being decided upon,percutaneous versus surgical.Plan of care discussed with the patient and his daughter, Elizabeth, at bedside. 08/11: Repeat echo over here shows:1. Left ventricle: The cavity size is normal. Wall thickness is normal.Systolic function is moderately reduced. The estimated ejection fractionis 35-39%. Wall motion is normal; there are no regional wall motionabnormalities. Grade I diastolic dysfunction.2. Aortic valve: The findings are consistent with moderate to severe stenosis.The mean systolic gradient is 15 mm Hg. The valve area is 0.98 cm 2.3. Mitral valve: The annulus is mildly to moderately calcified.Possible low flow low gradient aortic stenosis. Considerfurther evaluation with dobutamine stress echocardiogram.Patient is being evaluated by the consultants.Patient has expressed that the he would prefer getting surgery if his heartcould be taken care of percutaneously.Await final recommendations. 08/12: No acute events overnight.No chest pain or shortness of breath.After extensive discussions, the final recommendations are for CABG by Dr. Young 08/13: the patient underwent CABG x [address] Powell.Intra-op, patient went into AFib, and blood pressure dropped,so was re-explored, and eventually cardioverted. on 0.03mcg of Epinephrine.Received 2 units of PRBC, and 1 unit of FFP. 08/14: Extubated postoperative day 0.On 2 L of oxygen via nasal cannula.K low, replete. 08/15: All chest tubes removed.IJ removed.On 4 L of oxygen via nasal cannula.Walked about 25 feet with physical therapy.No bowel movement as yet.Plans for right atrial lead revision week of 08/[address] Owens 08/16: Reports that he is feeling well continues to remain on 2 L nasal cannula.S/p NADIRA today. -REVIEW OF SYSTEMS- COMMENT: 10 point review of system was negative except as mentioned in the HPI. -- OBJECTIVE -- VITALS (08/15 19:45 - 08/16 19:45):Temperature F: 98.5 (98.0 - 98.5)Temperature source: OralPulse Rate 97 (84 - 101)Respiratory rate: 24 (14 - 31) Blood pressure: 108/62 (95/53 - 137/80)Blood pressure source: Monitor I/Os (08/15 07:00 - 08/16 07:00):Net 624.70Intake 2,004.70Output 1,380 -EXAM- OTHER: Physical Exam - GENERAL: Alert and oriented x 3. 2L NC - EYES: EOMI. Anicteric. - HENT: Moist mucous membranes. No scleral icterus. No cervical lymphadenopathy. - LUNGS: Clear to auscultation bilaterally. No accessory muscle use. - CARDIOVASCULAR: Regular rate and rhythm. No murmur. No JVD. - ABDOMEN: Soft, non-tender and non-distended. No palpable masses. - EXTREMITIES: No edema. Non-tender. - SKIN: No rashes or lesions. Warm. - NEUROLOGIC: No focal neurological deficits. CN II-XII grossly intact, but not individually tested. - PSYCHIATRIC: Cooperative. Appropriate mood and affect. -- DATA -- MEDICATIONS POTASSIUM CHLORIDE 20 MEQ IV ASDIR (PRN)MAG HYDROX/AL HYDROX/SIMETH 30 ML PO Q6H PRNtraMADol HCL 50 MG PO BID (PRN)polyethylene glycoL 3350 1 PKT PO DAILYDOCUSATE SODIUM 200 MG PO DAILYFUROSEMIDE 20 MG IV BIDENOXAPARIN SODIUM 40 MG SUBQ DAILYMUPIROCIN 1 APPLIC NASAL BIDASPIRIN 81 MG PO DAILYclopidogreL 75 MG PO DAILYbisacodyL 10 MG RECTAL ASDIR PRNGLUCAGON 1 MG IM ASDIR PRNLACTULOSE 30 ML PO ASDIR PRNCYANOCOBALAMIN 500 MCG PO DAILYMAGNESIUM 1 GM IV ASDIR PRNIPRATROPIUM BROMIDE 0.5 MG NEB [id number] HCL 0.1 MG PO Q8H PRNNITROGLYCERIN 0.4 MG SL Q5M PRNONDANSETRON HCL/PF 4 MG IV Q6H PRNLACTULOSE 30 ML PO ASDIR PRNKETOTIFEN FUMARATE 1 DROP EACH EYE BID PRNCALCIUM GLUC IN NACL, ISO-OSM 2 GM IV ASDIR PRNACETAMINOPHEN 650 MG RECTAL Q4H PRNACETAMINOPHEN 650 MG PO Q4H PRNSODIUM BICARBONATE 8.4% 50 MEQ IV .ONCE PRNAMIODARONE HCL 200 MG PO BIDDEXTROSE 50%-WATER 25 ML IV ASDIR PRN METOPROLOL TARTRATE 5 MG IV Q6H PRNSODIUM CHLORIDE 10 mL 10 ML IV ASDIRFERROUS SULFATE 325 MG PO DAILYATORVASTATIN CALCIUM 40 MG PO BEDTIME LABS PHOS (08/16/23 16:09)PHOSPHOROUS 2.4 MAG (08/16/23 16:09)MAGNESIUM 2.0 BASIC METABOLIC PANEL (08/16/23 16:09)SODIUM 144POTASSIUM 4.2CHLORIDE 105CARBON DIOXIDE 32H HGLUCOSE 96BLOOD UREA NITROGEN 28H HGLOMERULAR FILTRATION RATE >=60 max estimateCREATININE 1.10CALCIUM 7.8 L BASIC METABOLIC PANEL (08/16/23 02:57)SODIUM 144POTASSIUM 4.4CHLORIDE 106CARBON DIOXIDE 32H HGLUCOSE 108H HBLOOD UREA NITROGEN 26H HGLOMERULAR FILTRATION RATE >=60 max estimateCREATININE 1.10CALCIUM 8.2 L PHOS (08/16/23 02:57)PHOSPHOROUS 2.8 MAG (08/16/23 02:57)MAGNESIUM 2.2 CBC W/AUTO DIFF (08/16/23 02:57)WHITE BLOOD CELL 10.5RED BLOOD CELL 3.27 LHEMOGLOBIN 10.1L LHEMATOCRIT 31.6L LMEAN CELL VOLUME 96.6 D HMEAN CELL HGB 30.9MEAN CELL HGB CONCENTRATION 32.0 LRED CELL DISTRIBUTION WIDTH 23.2 HPLATELET COUNT 150MEAN PLATELET VOLUME 10.2NEUTROPHIL % 84.2 HLYMPHOCYTE % 5.1 LMONOCYTE % 9.0EOSINOPHIL % 1.0BASOPHIL % 0.1NEUTROPHIL # 8.84 HLYMPHOCYTE # 0.54 LMONOCYTE # 0.95 H EOSINOPHIL # 0.10BASOPHIL # 0.01 -- ATTESTATION -- ADDITIONAL DETAIL:I have spent greater than 45 minutes with the patient and reviewing informationfor patient care. > 50% time spent on counseling/coordination of care Signed in PatientKeeper by Temo Herrera MD on 08/16/23 at 19:52 at 1952ATTENTION EDITS and/or ADDENDA must be made in Patient Keeper for this note. Edits and ammendments created in [facility] are not visible in Patient Keeper or the legal medical record (HPF). RPT #: [id number] OF REPORTPRProgress [id number]:45:00P.QO-[id number] ailable for patient qfikQQCBMZOQBVIRTQ8055-03-60I04:53:21 [facility] 2023-08-16 17:48:00 [id number] [id number]+MhePFVT2XV 4vw3zrbabHJJR3ALVVL/hM4SzzW7036-92-02Q45:48:00 [facility] ([facility]) Cardiology Progress Notes REPORT #: [id number] REPORT STATUS: Signed DATE: 08/16/23 TIME: 297 PATIENT: CHARLIE HART UNIT #: [id number] #: [id number] ROOM #: P.0418 BED: A : 35 AGE: 88 SEX: M ATTEND: Tony Gautam MD ADM AUTHOR: Trina Marquez MD CF1 ATTENTION EDITS and/or ADDENDA must be made in Patient Keeper for this note. Edits and ammendments created in [facility] are not visible in Patient Keeper or the legal medical record (HPF). -- CO-SIGNATURE -- COMMENTS:I have personally seen and examined the patient independently, and reviewed thepatient's history, exam, and all cardiac and laboratory data on 08/16/23. Iagree with the history, physical, and the assessment and plan as outlined byTrina Dooley MD, Cardiovascular Fellow. Mr. Hart is a 88 year old male status post CABG and developed mixed shock.Patient is doing better, extubated. He had paroxysmal atrial fibrillation thathas been converted back to sinus. Will continue to optimize the patient. Signed in PatientKeeper by OSKAR GODINEZ MD on 09/11/23 at 13:17 -- ASSESSMENT AND PLAN -- GENERAL ASSESSMENT:Mr. Hart is a 88 years old gentleman who underwent 3 Vessels CABG anddeveloped cardiogenic and vasoplegic shock, also suffered from Afibintraoperatively and was cardioverted, now on Amiodarone drip, and is on oralAmdiodarone, doing well, and is on nasal cannula supplemental oxygen, thismorning even more stable, worked with physical therapy yesterday. PROBLEMS: 1: Coronary artery diseaseA/P: S/P CABG x 3, POD # 3, extubated, working with physical therapy.Asa 81 mg , Plavix 75 mg po daily, Atorvastatin 80 mg po daily. 2: AfibA/P: History of Atrial fibrilaltion s/p ppmIntra operative Atrial fibrillation with RVR, cardioverted back to sinusNow on Amiodarone drip. Plan to discontinue the drip and start on oral 200 mgBID.PPM interrogation completed. EP services following.Revision next week. -- SUBJECTIVE -- CHIEF COMPLAINT:Follow up on cardiology assessment in post CABG patient HPI:Mr. Hart is an 88 years old male who is status post CABG X 3, intraoperativeafib with RVR in the setting of previous PPM for history of Atrialfibrillation, continued on Aspirin, Plavix, and statin, working with physicaltherapy, PATIENT NARRATIVE:Denied chest pain, shortness of breath or palpitations this morning. -- OBJECTIVE -- VITALS (08/15 17:48 - 08/16 17:48):Temperature F: 98.5 (98.0 - 98.5)Temperature source: OralPulse Rate 85 (84 - 101)Respiratory rate: 18 (14 - 31)Blood pressure: 117/67 (95/53 - 137/80)Blood pressure source: Monitor I/Os (08/15 07:00 - 08/16 07:00):Net 624.70Intake 2,004.70Output 1,380 -EXAM- GENERAL: Well developed, well nourished, in no apparent distress. sedated intubated.HEAD: Normocephalic, atraumatic.NOSE: No deformity, no discharge, no inflammation, no lesions. Nasal cannula in place.MOUTH: Oropharynx without deformities or lesions, normal mucosa.ETT in place.NECK: No masses, no thyromegaly, no abnormal cervical nodes, trachea midline.CHEST: Grossly normal appearance. Midline incision intact.LUNGS: Clear bilaterally with normal respiratory effort.HEART: Regular rate and rhythm, normal S1, S2, no murmurs, no rubs, no gallops, no clicks.ABDOMEN: Soft, non-tender, no organomegaly, no masses noted.MUSCULOSKELETAL: No deformity, no scoliosis noted of thoracic or lumbar spine, joint ROM grossly normal, normal gait and station.EXTREMITIES: No clubbing, no cyanosis, no edema.NEUROLOGICAL: No focal deficits, cranial nerves II-XII grossly intact, normal sensation, normal reflexes, normal coordination, normal muscle strength, normal tone. -- DATA -- MEDICATIONS POTASSIUM CHLORIDE 20 MEQ IV ASDIR (PRN)MAG HYDROX/AL HYDROX/SIMETH 30 ML PO Q6H PRNtraMADol HCL 50 MG PO BID (PRN) polyethylene glycoL 3350 1 PKT PO DAILYDOCUSATE SODIUM 200 MG PO DAILYFUROSEMIDE 20 MG IV BIDENOXAPARIN SODIUM 40 MG SUBQ DAILYMUPIROCIN 1 APPLIC NASAL BIDASPIRIN 81 MG PO DAILYclopidogreL 75 MG PO DAILYbisacodyL 10 MG RECTAL ASDIR PRNGLUCAGON 1 MG IM ASDIR PRNLACTULOSE 30 ML PO ASDIR PRNCYANOCOBALAMIN 500 MCG PO DAILYMAGNESIUM 1 GM IV ASDIR PRNIPRATROPIUM BROMIDE 0.5 MG NEB PLI4JfkvXKKaqy HCL 0.1 MG PO Q8H PRNNITROGLYCERIN 0.4 MG SL Q5M PRNONDANSETRON HCL/PF 4 MG IV Q6H PRNLACTULOSE 30 ML PO ASDIR PRNKETOTIFEN FUMARATE 1 DROP EACH EYE BID PRNCALCIUM GLUC IN NACL, ISO-OSM 2 GM IV ASDIR PRNACETAMINOPHEN 650 MG RECTAL Q4H PRNACETAMINOPHEN 650 MG PO Q4H PRNSODIUM BICARBONATE 8.4% 50 MEQ IV .ONCE PRNAMIODARONE HCL 200 MG PO BIDDEXTROSE 50%-WATER 25 ML IV ASDIR PRNMETOPROLOL TARTRATE 5 MG IV Q6H PRNSODIUM CHLORIDE 10 mL 10 ML IV ASDIRFERROUS SULFATE 325 MG PO DAILYATORVASTATIN CALCIUM 40 MG PO BEDTIME LABS PHOS (08/16/23 16:09)PHOSPHOROUS 2.4 MAG (08/16/23 16:09)MAGNESIUM 2.0 BASIC METABOLIC PANEL (08/16/23 16:09)SODIUM 144POTASSIUM 4.2CHLORIDE 105CARBON DIOXIDE 32H HGLUCOSE 96BLOOD UREA NITROGEN 28H HGLOMERULAR FILTRATION RATE >=60 max estimateCREATININE 1.10CALCIUM 7.8 L BASIC METABOLIC PANEL (08/16/23 02:57)SODIUM 144POTASSIUM 4.4CHLORIDE 106CARBON DIOXIDE 32H HGLUCOSE 108H HBLOOD UREA NITROGEN 26H HGLOMERULAR FILTRATION RATE >=60 max estimateCREATININE 1.10CALCIUM 8.2 L PHOS (08/16/23 02:57) PHOSPHOROUS 2.8 MAG (08/16/23 02:57)MAGNESIUM 2.2 CBC W/AUTO DIFF (08/16/23 02:57)WHITE BLOOD CELL 10.5RED BLOOD CELL 3.27 LHEMOGLOBIN 10.1L LHEMATOCRIT 31.6L LMEAN CELL VOLUME 96.6 D HMEAN CELL HGB 30.9MEAN CELL HGB CONCENTRATION 32.0 LRED CELL DISTRIBUTION WIDTH 23.2 HPLATELET COUNT 150MEAN PLATELET VOLUME 10.2NEUTROPHIL % 84.2 HLYMPHOCYTE % 5.1 LMONOCYTE % 9.0EOSINOPHIL % 1.0BASOPHIL % 0.1NEUTROPHIL # 8.84 HLYMPHOCYTE # 0.54 LMONOCYTE # 0.95 HEOSINOPHIL # 0.10BASOPHIL # 0.01 Signed in PatientKeeper by TRINA MARQUEZ MD on 08/17/23 at 11:45 Cosigned by OSKAR GODINEZ MD on 09/11/23 at 13:17 at 1317 at 1317ATTENTION EDITS and/or ADDENDA must be made in Patient Keeper for this note. Edits and ammendments created in [facility] are not visible in Patient Keeper or the legal medical record (HPF). [facility] #: [id number] OF REPORTPRProgress [id number]:48:00P.CK-[id number] ailable for patient gmopRHTHSAEOJGTAOW6831-66-64G59:17:30 [facility] 2023-08-16 13:50:00 [id number] oNeUUkI9GTsQO8yQZuCRCfDMODV11 mTbeiOqxW/BkI9lDiizmUGUdXWY7833-35-23N11:50:00 [facility] ([facility]) ElectroPhys. Progress Notes REPORT #: [id number] REPORT STATUS: Signed DATE: 08/16/23 TIME: 1350 PATIENT: CHARLIE HART UNIT #: [id number] #: [id number] ROOM #: P.0311 BED: 1 : 35 AGE: 88 SEX: M ATTEND: Tony Gautam MD ADM AUTHOR: Dilshad Strong MD ATTENTION EDITS and/or ADDENDA must be made in Patient Keeper for this note. Edits and ammendments created in [facility] are not visible in Patient Keeper or the legal medical record (HPF). -- ASSESSMENT AND PLAN -- PROBLEMS: 1: Atrial pacemaker lead displacementA/P: -Plan for revision on Friday -- SUBJECTIVE -- PATIENT NARRATIVE:-Continues to do well, no new issues -- OBJECTIVE -- -EXAM- GENERAL: Well developed, well nourished, in no apparent distress.EYES: PERRL, EOM intactLUNGS: Clear bilaterally with normal respiratory effort.HEART: Regular rate and rhythm, normal S1, S2, no murmurs, no rubs, no gallops, no clicks. incision c/d/iEXTREMITIES: WWP, no edema.NEUROLOGICAL: No focal deficits, cranial nerves II-XII grossly intact, A+Ox3 Signed in PatientKeeper by Dilshad Strong MD on 08/16/23 at 13:51 at 1351ATTENTION EDITS and/or ADDENDA must be made in Patient Keeper for this note. Edits and ammendments created in [employer] are not visible in Patient Keeper or the legal medical record (HPF). [facility] #: [id number] OF REPORTPRProgress [id number]:50:00P.IN-[id number] ailable for patient [id number]:51:57 [facility] 2023-08-16 13:30:00 [id number] 0gVICbch9IhdDGr6EjxMgdYqPgrcx aJYZ4nyW5ipsz/XMmNTnbh4vaTW0351-05-83T56:30:56998 0-0026 [facility] [address] [place], [place] [address]WKNOMRB NAME: CHARLIE HART ADMIT DATE: 08/09/23ACCOUNT NO: [id number] ROOM NO: P.0311 AGE: 88 REPORT TYPE: eTRANSESOPHAGEL REPORT SEX: M ADMITTING PHYSICIAN: Tony Gautam MD ATTENDING PHYSICIAN: Tony Gautam MD *[facility]*[address] [place] [id number] Transesophageal Echocardiogram Patient: Rl Hart Date: 08/13/2023P:URN: [id number]: [id number]#: [id number]: 1935ge: 88Gender: MHeight: 68.1 in / 173 cmWeight: 163.1 lb / 74 kgBMI/BSA: 24.7 kg/m 2 / 1.89 m 2*Ordering Physician: * João Powell MD *Interpreting Physician: * Gino Deng M.D. Indications: CABG. Study data: Consent: The risks, benefits, and alternatives to theprocedure were explained to the patient and informed consent was obtained.Procedure: The patient arrived at the laboratory in a fasting state.Intravenous access was obtained. Surface ECG leads and pulse oximetricsignals were monitored. Deep sedation was administered by anesthesiologystaff. A transesophageal echocardiogram was performed. Topical anesthesiawas obtained using viscous lidocaine. A transesophageal probe was insertedby the anesthesiologist without difficulty. 2D, spectral Doppler, and colorDoppler. Location: Operating room. Study completion: The patienttolerated the procedure well. There were no complications. Findings Left ventricle: The cavity size is normal. Systolic function is moderately PATIENT NAME: CHARLIE HART reduced.Right ventricle: The cavity size is normal. Systolic function is normal.Left atrium: The atrium is normal in size. There is no evidence of athrombus in the atrial cavity or appendage. No spontaneous echo contrast isobserved.Appendage: The appendage is of normal size. Emptying velocity is normal.Right atrium: The atrium is normal in size. There is no evidence of athrombus in the atrial cavity or appendage.Atrial septum: No defect or patent foramen ovale is identified. Dopplerand echo contrast study shows no bdvon-xo-owpa atrial level shunt.Aorta:Aorta: No evidence of aneurysm, dissection, or atheroma.Aortic root: The root is normal-sized.Aortic valve: The valve is trileaflet. The leaflets are moderatelythickened and mildly calcified. Cusp separation is mildly reduced. Thefindings are consistent with mild stenosis. There is no regurgitation.Mitral valve: The valve is structurally normal. There is no evidence ofvegetation. There is mild regurgitation.Tricuspid valve: The valve is structurally normal. There is no evidence ofa vegetation. There is mild regurgitation.Pulmonic valve: There is no thickening. Cusp separation is normal. Thereis no evidence of a vegetation. There is no regurgitation.Systemic veins:Superior vena cava: The SVC is normal-sized. Measurements LVOT Value 08/10/2023 Diam, S 2.40 cm 2.06 Area 4.5 cm 2 3.3 Peak yan, S 2.64 m/sec 0.89 Mean yan, S 0.62 m/sec 0.57 VTI, S 59.7 cm 15.6 Peak grad, S 28 mm Hg 3 SV 270 ml 52 SV/bsa 143 ml/m 2 27 Aortic valve Value 08/10/2023 Peak v, S 2.2 m/sec 2.7 Mean v, S 1.39 m/sec 1.79 VTI, S 57.5 cm 50.3 Mean grad, S 10 mm Hg 15 Peak grad, S 19.0 mm Hg 28.7 LVOT/AV, VTI ratio 1.04 0.31 VALERIE, VTI 4.69 cm 2 0.98 LVOT/AV, Vpeak ratio 1.22 0.33 VALERIE, Vmax 5.52 cm 2 1.03 Conclusions Summary: PATIENT NAME: CHARLIE HART 1. Left ventricle: The cavity size is normal. Systolic function is moderately reduced.2. Left atrium: There is no evidence of a thrombus in the atrial cavity or appendage. No spontaneous echo contrast is observed.3. Right atrium: There is no evidence of a thrombus in the atrial cavity or appendage.4. Atrial septum: No defect or patent foramen ovale is identified. Doppler and echo contrast study shows no ewhrb-px-tfvr atrial level shunt.5. Aortic valve: Cusp separation is mildly reduced. The findings are consistent with mild stenosis.6. Mitral valve: There is no evidence of vegetation.7. Tricuspid valve: There is no evidence of a vegetation.8. Pulmonic valve: There is no evidence of a vegetation.Electronically signed by Gino Deng M.D.08/16/2023 13:30 at 1330 PATIENT NAME: CHARLIE HART [id number]:30:00P.[id number] ilable for patient rhwzNYNZSXVMFXQKSO4470-92-56D19:31:16 [facility] 2023-08-16 12:38:00 [id number] 6zsP6+zvElMXBZiGCsqfZgiO2YlFe kILBIcnmhsOzDvwknZEpjmh5Gy66136-32-16A93:38:00 [facility] ([facility]) Intensive Care Progress Note REPORT #: [id number] REPORT STATUS: Signed DATE: 08/16/23 TIME: 1238 PATIENT: CHARLIE HART UNIT #: [id number] #: [id number] [facility] AGE: 88 SEX: M ATTEND: Tony Gautam MD ADM AUTHOR: Chikis Burdick MD ATTENTION EDITS and/or ADDENDA must be made in Patient Keeper for this note. Edits and ammendments created in [employer] are not visible in Patient Keeper or the legal medical record (HPF). -- ASSESSMENT AND PLAN -- HOSPITAL COURSE TO DATE:Mr. Hart is an 88 year-old male with past medical history of hypertension,hyperlipidemia, coronary artery disease, carotid disease, presence of permanentpacemaker (2021), pulmonary hypertension, and ischemic cardiomyopathy withprevious ejection fraction 40-50% who was transferred to the CVICU [facility] the [facility] 08/13 after CABG x [address] Powell. GENERAL ASSESSMENT:I have examined him, reviewed his EMR information and data and discussed hisplan of care with the other clinical and ancillary services. Assessment and Plan ICU AnalgesiaAcute postop pain- On Acetaminophen, Tramadol- Serially reassessing Symptomatic mv CADS/p CABG x 3Cardiogenic ShockVasoplegic ShockH/o HTNH/o Dual lead PPMH/o PAHPeriop Afib with RVR- Paced rythm and adequate BP- Clean median sternotomy incision wound- Adequate perfusion indices- On ASA, Plavix, Statin- On Amiodarone- Serially reassessing with exam, perfusion indices- D/w Dr. Powell who is following Acute resp insufficiency- Adequate spaO2 on LFNC- Audible airway congestion- pCXR with reduced volumes, PVC- On IS, pulm hygiene, breathing Rx, OOB to chair, wean FiO2, diuresis- Serially reassessing with exam, imaging and ABGs Nutrition- Advancing to regular diet Acute prerenal azotemiaFluid overload- Adequate UO on Lasix- Serially reassessing UO, lytes, fluid status Acute blood loss anemia- Adequate and equilibrating- Serially reassessing Prophylaxis- Starting Lovenox- SCDs Medications reviewed with the Clinical Pharmacist Full Code per , daughter -- OBJECTIVE -- VITALS (08/15 12:38 - 08/16 12:38):Temperature F: 98.5 (98.0 - 98.9)Temperature source: OralPulse Rate 101 (0 - 101)Respiratory rate: 24 (14 - 31)Blood pressure: 112/65 (97/53 - 142/78)Blood pressure source: Monitor I/Os (08/15 07:00 - 08/16 07:00):Net 624.70Intake 2,004.70Output 1,380 -- DATA -- MEDICATIONS POTASSIUM CHLORIDE 20 MEQ IV ASDIR (PRN)MAG HYDROX/AL HYDROX/SIMETH 30 ML PO Q6H PRNtraMADol HCL 50 MG PO BID (PRN)polyethylene glycoL 3350 1 PKT PO DAILYDOCUSATE SODIUM 200 MG PO DAILYFUROSEMIDE 20 MG IV BIDMUPIROCIN 1 APPLIC NASAL BIDASPIRIN 81 MG PO DAILYclopidogreL 75 MG PO DAILYbisacodyL 10 MG RECTAL ASDIR PRNGLUCAGON 1 MG IM ASDIR PRNLACTULOSE 30 ML PO ASDIR PRNCYANOCOBALAMIN 500 MCG PO DAILYMAGNESIUM 1 GM IV ASDIR PRNIPRATROPIUM BROMIDE 0.5 MG NEB [id number] HCL 0.1 MG PO Q8H PRNNITROGLYCERIN 0.4 MG SL Q5M PRNONDANSETRON HCL/PF 4 MG IV Q6H PRNLACTULOSE 30 ML PO ASDIR PRNKETOTIFEN FUMARATE 1 DROP EACH EYE BID PRN CALCIUM GLUC IN NACL, ISO-OSM 2 GM IV ASDIR PRNACETAMINOPHEN 650 MG RECTAL Q4H PRNACETAMINOPHEN 650 MG PO Q4H PRNSODIUM BICARBONATE 8.4% 50 MEQ IV .ONCE PRNAMIODARONE HCL 200 MG PO BIDDEXTROSE 50%-WATER 25 ML IV ASDIR PRNMETOPROLOL TARTRATE 5 MG IV Q6H PRNSODIUM CHLORIDE 10 mL 10 ML IV ASDIRFERROUS SULFATE 325 MG PO DAILYATORVASTATIN CALCIUM 40 MG PO BEDTIME LABS BASIC METABOLIC PANEL (08/16/23 02:57)SODIUM 144POTASSIUM 4.4CHLORIDE 106CARBON DIOXIDE 32H HGLUCOSE 108H HBLOOD UREA NITROGEN 26H HGLOMERULAR FILTRATION RATE >=60 max estimateCREATININE 1.10CALCIUM 8.2 L PHOS (08/16/23 02:57)PHOSPHOROUS 2.8 MAG (08/16/23 02:57)MAGNESIUM 2.2 CBC W/AUTO DIFF (08/16/23 02:57)WHITE BLOOD CELL 10.5RED BLOOD CELL 3.27 LHEMOGLOBIN 10.1L LHEMATOCRIT 31.6L LMEAN CELL VOLUME 96.6 D HMEAN CELL HGB 30.9MEAN CELL HGB CONCENTRATION 32.0 LRED CELL DISTRIBUTION WIDTH 23.2 HPLATELET COUNT 150MEAN PLATELET VOLUME 10.2NEUTROPHIL % 84.2 HLYMPHOCYTE % 5.1 LMONOCYTE % 9.0EOSINOPHIL % 1.0BASOPHIL % 0.1NEUTROPHIL # 8.84 HLYMPHOCYTE # 0.54 LMONOCYTE # 0.95 HEOSINOPHIL # 0.10BASOPHIL # 0.01 BASIC METABOLIC PANEL (08/15/23 13:33)SODIUM 143POTASSIUM 4.2CHLORIDE 107CARBON DIOXIDE 30GLUCOSE 136H HBLOOD UREA NITROGEN 24H HGLOMERULAR FILTRATION RATE >=60 max estimate CREATININE 1.10CALCIUM 8.1 L MAG (08/15/23 13:33)MAGNESIUM 2.1 -- ATTESTATION -- TIME SPENT ON PATIENT CARE: - Critical Care: time spent apart from any procedure 41 minutes CARE ACTIVITIES / CARE COORDINATION: - I have reviewed the history and repeated the dee elements - I have seen and examined this patient - I have reviewed the progress in the clinical course since the lastexamination - I have discussed the patient's condition with other members of the care team Signed in PatientKeeper by Chikis Burdick MD on 08/16/23 at 20:49 at 2049ATTENTION EDITS and/or ADDENDA must be made in Patient Keeper for this note. Edits and ammendments created in [employer] are not visible in Patient Keeper or the legal medical record (HPF). RPT #: [id number] OF REPORTPRProgress [id number]:38:[id number] ailable for patient [id number]:50:42 [facility] 2023-08-15 17:27:00 [id number]:27:00 [facility] ([facility]) Cardiology Progress Notes REPORT #: [id number] REPORT STATUS: Signed DATE: 08/15/23 TIME: 1726 PATIENT: CHARLIE HART UNIT #: [id number] #: [id number] ROOM #: P.0418 BED: A : 35 AGE: 88 SEX: M ATTEND: Tony Gautam MD ADM AUTHOR: Trina Marquez MD CF1 ATTENTION EDITS and/or ADDENDA must be made in Patient Keeper for this note. Edits and ammendments created in [facility] are not visible in Patient Keeper or the legal medical record (HPF). -- CO-SIGNATURE -- COMMENTS:The patient was seen on rounds with Trina Marquez MD The patient has no complaintsExamination demonstrates normal heart sounds and clear lung stanley. Impression and planThe patient is an 88-year-old gentleman with coronary artery disease and an EFbetween 40 to 50% from the outside records with anterior hypokinesis who wastransferred here for possible bypass surgery.Status post three-vessel bypass surgery.Off all pressors today.Continue aspirin and atorvastatin. If blood pressure improves we will startbeta-blockade.Continue amiodarone drip and transition to oral amiodarone 200 mg twice daily. Signed in PatientKeeper by GINO DENG MD on 09/06/23 at 13:58 -- ASSESSMENT AND PLAN -- GENERAL ASSESSMENT:Mr. Hart is a 88 years old gentleman who underwent 3 Vessels CABG anddeveloped cardiogenic and vasoplegic shock, also suffered from Afibintraoperatively and was cardioverted, now on Amiodarone drip, doing well,extubated, and is on nasal cannula supplemental oxygen, this morning even morestable, sitting up in chair. PROBLEMS: 1: Coronary artery diseaseA/P: S/P CABG x 3, POD # 2, extubated,Chest tubes present, following out put, CV Surgery following the case.Off the pressors and inotropic supportOptimization of medicationAsa 81 mg , Atorvastatin 80 mg po daily. 2: AfibA/P: History of Atrial fibrilaltion s/p ppmIntra operative Atrial fibrillation with RVR, cardioverted back to sinusNow on Amiodarone drip. Plan to discontinue the drip and start on oral 200 mg BID.PPM interrogation completed, no active issues. -- SUBJECTIVE -- CHIEF COMPLAINT:Follow up post CABG PATIENT NARRATIVE:Denied chest pain, shortness of breath or palpitations. -- OBJECTIVE -- VITALS (08/14 17:27 - 08/15 17:27):Temperature F: 99.0 (99.0 - 99.1)Temperature C: 37.5 (37.1 - 37.7)Temperature source: [place] probePulse Rate 90 (72 - 90)Respiratory rate: 17 (11 - 26)Blood pressure: 119/73 (38/23 - 154/146)Blood pressure source: Monitor I/Os (08/14 07:00 - 08/15 07:00):Net 444.80Intake 1,680.80Output 1,236 -EXAM- GENERAL: Well developed, well nourished, in no apparent distress. sedated intubated.HEAD: Normocephalic, atraumatic.NOSE: No deformity, no discharge, no inflammation, no lesions. Nasal cannula in place.MOUTH: Oropharynx without deformities or lesions, normal mucosa.ETT in place.NECK: No masses, no thyromegaly, no abnormal cervical nodes, trachea midline.CHEST: Grossly normal appearance. Midline incision intact.LUNGS: Clear bilaterally with normal respiratory effort.HEART: Regular rate and rhythm, normal S1, S2, no murmurs, no rubs, no gallops, no clicks.ABDOMEN: Soft, non-tender, no organomegaly, no masses noted.MUSCULOSKELETAL: No deformity, no scoliosis noted of thoracic or lumbar spine, joint ROM grossly normal, normal gait and station.EXTREMITIES: No clubbing, no cyanosis, no edema.NEUROLOGICAL: No focal deficits, cranial nerves II-XII grossly intact, normal sensation, normal reflexes, normal coordination, normal muscle strength, normal tone. -- DATA -- MEDICATIONS POTASSIUM CHLORIDE 20 MEQ IV ASDIR (PRN)MAG HYDROX/AL HYDROX/SIMETH 30 ML PO Q6H PRNtraMADol HCL 50 MG PO BID (PRN) polyethylene glycoL 3350 1 PKT PO DAILYDOCUSATE SODIUM 200 MG PO DAILYFUROSEMIDE 20 MG IV BIDMUPIROCIN 1 APPLIC NASAL BIDASPIRIN 81 MG PO DAILYclopidogreL 75 MG PO DAILYbisacodyL 10 MG RECTAL ASDIR PRNGLUCAGON 1 MG IM ASDIR PRNLACTULOSE 30 ML PO ASDIR PRNCYANOCOBALAMIN 500 MCG PO DAILYMAGNESIUM 1 GM IV ASDIR PRNcloNIDine HCL 0.1 MG PO Q8H PRNNITROGLYCERIN 0.4 MG SL Q5M PRNONDANSETRON HCL/PF 4 MG IV Q6H PRNLACTULOSE 30 ML PO ASDIR PRNKETOTIFEN FUMARATE 1 DROP EACH EYE BID PRNCALCIUM GLUC IN NACL, ISO-OSM 2 GM IV ASDIR PRNACETAMINOPHEN 650 MG RECTAL Q4H PRNACETAMINOPHEN 650 MG PO Q4H PRNSODIUM BICARBONATE 8.4% 50 MEQ IV .ONCE PRNAMIODARONE HCL 200 MG PO BIDDEXTROSE 50%-WATER 25 ML IV ASDIR PRNMETOPROLOL TARTRATE 5 MG IV Q6H PRNSODIUM CHLORIDE 10 mL 10 ML IV ASDIRFERROUS SULFATE 325 MG PO DAILYATORVASTATIN CALCIUM 40 MG PO BEDTIME LABS BASIC METABOLIC PANEL (08/15/23 13:33)SODIUM 143POTASSIUM 4.2CHLORIDE 107CARBON DIOXIDE 30GLUCOSE 136H HBLOOD UREA NITROGEN 24H HGLOMERULAR FILTRATION RATE >=60 max estimateCREATININE 1.10CALCIUM 8.1 L MAG (08/15/23 13:33)MAGNESIUM 2.1 CBC W/AUTO DIFF (08/15/23 03:05)WHITE BLOOD CELL 9.5RED BLOOD CELL 3.09 LHEMOGLOBIN 9.3L LHEMATOCRIT 28.3L LMEAN CELL VOLUME 91.6MEAN CELL HGB 30.1MEAN CELL HGB CONCENTRATION 32.9 LRED CELL DISTRIBUTION WIDTH 24.1 HPLATELET COUNT 126L LMEAN PLATELET VOLUME 10.3NEUTROPHIL % 78.7 HLYMPHOCYTE % 7.8 LMONOCYTE % 12.4 HEOSINOPHIL % 0.5BASOPHIL % 0.2NEUTROPHIL # 7.48 LYMPHOCYTE # 0.74 LMONOCYTE # 1.18 HEOSINOPHIL # 0.05BASOPHIL # 0.02 BASIC METABOLIC PANEL (08/15/23 03:05)SODIUM 143POTASSIUM 4.6D DCHLORIDE 108H HCARBON DIOXIDE 28GLUCOSE 109H HBLOOD UREA NITROGEN 24H HGLOMERULAR FILTRATION RATE >=60 max estimateCREATININE 1.00CALCIUM 7.8 D L MAG (08/15/23 03:05)MAGNESIUM 1.9 MAG (08/14/23 18:40)MAGNESIUM 1.6 BASIC METABOLIC PANEL (08/14/23 18:40)SODIUM 149H HPOTASSIUM 3.2L LCHLORIDE 118H HCARBON DIOXIDE 22GLUCOSE 92BLOOD UREA NITROGEN 20GLOMERULAR FILTRATION RATE >=60 max estimateCREATININE 0.80CALCIUM 6.2 D L Signed in PatientKeeper by TRINA MARQUEZ MD CF1 on 08/15/23 at 17:30 Cosigned by GINO DENG MD on 09/06/23 at 13:58 at 1358 at 1358ATTENTION EDITS and/or ADDENDA must be made in Patient Keeper for this note. Edits and ammendments created in [facility] are not visible in Patient Keeper or the legal medical record (HPF). [facility] #: [id number] OF REPORTPRProgress [id number]:27:00P.[id number] ailable for patient [id number]:13:54 [facility] 2023-08-15 11:45:00 [id number]+[id number]:45:00 [facility] ([facility]) Hospitalist Progress Note REPORT #: [id number] REPORT STATUS: Signed DATE: 08/15/23 TIME: 1145 PATIENT: CHARLIE HART UNIT #: [id number] #: [id number] ROOM #: [facility] BED: 1 : 35 AGE: 88 SEX: M ATTEND: Tony Gautam MD ADM AUTHOR: Tony Gautam MD ATTENTION EDITS and/or ADDENDA must be made in Patient Keeper for this note. Edits and ammendments created in [facility] are not visible in Patient Keeper or the legal medical record ([facility]). -- ASSESSMENT AND PLAN -- GENERAL ASSESSMENT: ASSESSMENT AND PLAN: 1. Recent non-ST segment elevation myocardial infarction, around July.S/p coronary angiogram 08/09 showing multivessel coronary artery disease,not amenable to percutaneous coronary intervention.LAD 90 to 99% lesion, left circumflex proximal 90%, 95% obtuse marginal lesion;Occluded proximal RCA. Left ventricular end-diastolic pressure 12;Left ventricular ejection fraction 40%, severe anteroapical hypokinesis.The patient is being admitted to [facility] for higher level of care.Given his multiple comorbidities, coronary intervention is being decided upon,percutaneous versus surgical.Optimized statin dose, continue aspirin and beta-blockers.Plavix was withheld only from 08/08.the patient underwent CABG x [address] Powell 08/13/22. 2. Hypertension continue metoprolol. 3. Hyperlipidemia. Increased statins to high-dose for now. 4. Pulmonary hypertension 5. Benign prostatic hyperplasia. 6. 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 7. Chronic neck pain. Continue home dose of tramadol. 8. PAF, periop, amiodarone. 9. Lactic acidosis, related to surgery. 10. Acute surgical blood loss anemia.2 units PRBC and 1 unit FFP transfused 08/13. 11. Thrombocytopenia, noncritical. 12. Acute debility.PT following. ADDITIONAL COMMENTS:s/p CABG by Dr. João Powell 08/13/22.Plans for right atrial lead revision week of 08/[address] Mc postoperative care -- SUBJECTIVE -- HPI: This 88-year-old gentleman has a past medical history significant forhypertension, pulmonary hypertension,Nonobstructive coronary artery disease, ischemic cardiomyopathy, with aprevious ejection fraction of 40 to 50%,hyperlipidemia, benign prostatic hyperplasia, vitamin B12 deficiency, Permanentpacemaker placement in November 2021.The patient was in his usual state of health until recently when he developedrecurrent chest pain, suggestive of angina.He was taken to the [place] emergency room on August 05, 2023 where he wasruled in for non-ST segment elevation myocardial infarction.He was started on heparin and transferred to [facility] where he wasobserved for a couple of days and improved on medical therapy.Echocardiogram showed apical wall motion abnormalities with preserved leftventricular ejection fraction.As the patient was doing well on medical management, [facility].He was seen by his primary manager front office, Dr Deyvi Celis and admitted forselective coronary angiogramon August 09, 2023 to [facility].This showed multivessel coronary artery disease,LAD 90 to 99% lesion, left circumflex proximal 90%, 95% obtuse marginal lesion;Occluded proximal RCA. Left ventricular end-diastolic pressure 12;Left ventricular ejection fraction 40%, severe anteroapical hypokinesis.He has been transferred to [facility] for consideration of CABG by Dr.Eyal Powell.When seen in the room the patient is awake alert and oriented and verbalizesthe above. PATIENT NARRATIVE: 08/10: The patient denies any chest pain or shortness of breath at this time.Denies any headache or dizziness.No nausea vomiting.labs pending.echo at the OSH shows:1. Left ventricle: The cavity size is normal. Wall thickness is normal.Systolic function is normal. The estimated ejection fraction is 50-54%.Regional wall motion abnormalities cannot be excluded. Grade I diastolicdysfunction.2. Atrial septum: No defect or patent foramen ovale is identified. He has been seen by the heart team.Given his multiple comorbidities, coronary intervention is being decided upon,percutaneous versus surgical.Plan of care discussed with the patient and his daughter, Elizabeth, at bedside. 08/11: Repeat echo over here shows:1. Left ventricle: The cavity size is normal. Wall thickness is normal.Systolic function is moderately reduced. The estimated ejection fractionis 35-39%. Wall motion is normal; there are no regional wall motionabnormalities. Grade I diastolic dysfunction.2. Aortic valve: The findings are consistent with moderate to severe stenosis.The mean systolic gradient is 15 mm Hg. The valve area is 0.98 cm 2.3. Mitral valve: The annulus is mildly to moderately calcified.Possible low flow low gradient aortic stenosis. Considerfurther evaluation with dobutamine stress echocardiogram.Patient is being evaluated by the consultants.Patient has expressed that the he would prefer getting surgery if his heartcould be taken care of percutaneously.Await final recommendations. 08/12: No acute events overnight.No chest pain or shortness of breath.After extensive discussions, the final recommendations are for CABG by Dr. Young 08/13: the patient underwent CABG x [address] Powell.Intra-op, patient went into AFib, and blood pressure dropped,so was re-explored, and eventually cardioverted. on 0.03mcg of Epinephrine.Received 2 units of PRBC, and 1 unit of FFP. 08/14: Extubated postoperative day 0.On 2 L of oxygen via nasal cannula.K low, replete. 08/15: All chest tubes removed.IJ removed. On 4 L of oxygen via nasal cannula. Walked about 25 feet with physical therapy. No bowel movement as yet. Plans for right atrial lead revision week of 08/[address] Owens -REVIEW OF SYSTEMS- GENERAL: as above -- OBJECTIVE -- VITALS (08/14 11:45 - 08/15 11:45):Temperature F: 99.1 (99.1 - 99.9)Temperature C: 37.2 (37.1 - 37.8)Temperature source: CorePulse Rate 80 (72 - 86)Respiratory rate: 24 (11 - 28)Blood pressure: 114/65 (-22/-23 - 154/146)Blood pressure source: Arterial I/Os (08/14 07:00 - 08/15 07:00):Net 444.80Intake 1,680.80 Output 1,236 -EXAM- GENERAL: Well developed, well nourished, in no apparent distress.HEAD: Normocephalic, atraumatic.EYES: PERRL, EOM intact, conjunctiva and sclera clear, without nystagmus, lids normal.EARS: markedly diminished hearing.NOSE: No deformity, no discharge, no inflammation, no lesions.MOUTH: Oropharynx without deformities or lesions, normal mucosa..NECK: No masses, no thyromegaly, no abnormal cervical nodes, trachea midline.CHEST: NANCY PPM; all CTs removedLUNGS: Clear bilaterally with normal respiratory effort.HEART: RRR; II/ LUIS at LLSBABDOMEN: Soft, non-tender, no organomegaly, no masses noted.MUSCULOSKELETAL: No deformity, no scoliosis noted of thoracic or lumbar spine, joint ROM grossly normal, normal gait and station.EXTREMITIES: No clubbing, no cyanosis, no edema.NEUROLOGICAL: No focal deficits, cranial nerves II-XII grossly intact, normal sensation, normal reflexes, normal coordination, normal muscle strength, normal tone.PULSES: Pulses normal in all extremities. -- DATA -- MEDICATIONS POTASSIUM CHLORIDE 20 MEQ IV ASDIR (PRN)MAG HYDROX/AL HYDROX/SIMETH 30 ML PO Q6H PRNtraMADol HCL 50 MG PO BID (PRN)polyethylene glycoL 3350 1 PKT PO DAILYDOCUSATE SODIUM 200 MG PO DAILYFUROSEMIDE 20 MG IV BIDMUPIROCIN 1 APPLIC NASAL BIDASPIRIN 81 MG PO DAILYclopidogreL 75 MG PO DAILYbisacodyL 10 MG RECTAL ASDIR PRNGLUCAGON 1 MG IM ASDIR PRNLACTULOSE 30 ML PO ASDIR PRNCYANOCOBALAMIN 500 MCG PO DAILYMAGNESIUM 1 GM IV ASDIR PRNcloNIDine HCL 0.1 MG PO Q8H PRNNITROGLYCERIN 0.4 MG SL Q5M PRNONDANSETRON HCL/PF 4 MG IV Q6H PRNLACTULOSE 30 ML PO ASDIR PRNKETOTIFEN FUMARATE 1 DROP EACH EYE BID PRNCALCIUM GLUC IN NACL, ISO-OSM 2 GM IV ASDIR PRNACETAMINOPHEN 650 MG RECTAL Q4H PRNACETAMINOPHEN 650 MG PO Q4H PRNSODIUM BICARBONATE 8.4% 50 MEQ IV .ONCE PRNAMIODARONE HCL 200 MG PO BIDDEXTROSE 50%-WATER 25 ML IV ASDIR PRNMETOPROLOL TARTRATE 5 MG IV Q6H PRN SODIUM CHLORIDE 10 mL 10 ML IV ASDIRFERROUS SULFATE 325 MG PO DAILYATORVASTATIN CALCIUM 40 MG PO BEDTIME LABS CBC W/AUTO DIFF (08/15/23 03:05)WHITE BLOOD CELL 9.5RED BLOOD CELL 3.09 LHEMOGLOBIN 9.3L LHEMATOCRIT 28.3L LMEAN CELL VOLUME 91.6MEAN CELL HGB 30.1MEAN CELL HGB CONCENTRATION 32.9 LRED CELL DISTRIBUTION WIDTH 24.1 HPLATELET COUNT 126L LMEAN PLATELET VOLUME 10.3NEUTROPHIL % 78.7 HLYMPHOCYTE % 7.8 LMONOCYTE % 12.4 HEOSINOPHIL % 0.5BASOPHIL % 0.2NEUTROPHIL # 7.48LYMPHOCYTE # 0.74 LMONOCYTE # 1.18 HEOSINOPHIL # 0.05BASOPHIL # 0.02 BASIC METABOLIC PANEL (08/15/23 03:05)SODIUM 143POTASSIUM 4.6D DCHLORIDE 108H HCARBON DIOXIDE 28GLUCOSE 109H HBLOOD UREA NITROGEN 24H HGLOMERULAR FILTRATION RATE >=60 max estimateCREATININE 1.00CALCIUM 7.8 D L MAG (08/15/23 03:05)MAGNESIUM 1.9 MAG (08/14/23 18:40)MAGNESIUM 1.6 BASIC METABOLIC PANEL (08/14/23 18:40)SODIUM 149H HPOTASSIUM 3.2L LCHLORIDE 118H HCARBON DIOXIDE 22GLUCOSE 92BLOOD UREA NITROGEN 20GLOMERULAR FILTRATION RATE >=60 max estimateCREATININE 0.80CALCIUM 6.2 D L BASIC METABOLIC PANEL (08/14/23 13:28)SODIUM 145POTASSIUM 3.9CHLORIDE 109H H CARBON DIOXIDE 29GLUCOSE 117H HBLOOD UREA NITROGEN 24H HGLOMERULAR FILTRATION RATE >=60 max estimateCREATININE 1.10CALCIUM 8.6 L PHOS (08/14/23 13:28)PHOSPHOROUS 4.2 MAG (08/14/23 13:28)MAGNESIUM 2.1 -- QUALITY -- -MEDICATIONS- - I attest that the foregoing medication list in the medical record is true,accurate, and complete to the best of my knowledge. -- ATTESTATION -- CARE ACTIVITIES / CARE COORDINATION: - I have reviewed the history and repeated the dee elements - I have seen and examined this patient - I have reviewed the progress in the clinical course since the lastexamination - I have discussed the patient's condition with other members of the care team Signed in PatientKeeper by Tony Gautam MD on 08/15/23 at 16:07 at 1607ATTENTION EDITS and/or ADDENDA must be made in Patient Keeper for this note. Edits and ammendments created in [facility] are not visible in Patient Keeper or the legal medical record (HPF). [facility] #: [id number] OF REPORTPRProgress [id number]:45:[id number].[id number] ailable for patient [id number]:08:23 [facility] 2023-08-15 10:29:00 [id number]:29:00 [facility] ([facility]) Cardiology Consultation REPORT #: [id number] REPORT STATUS: Signed DATE: 08/15/23 TIME: 1029 PATIENT: CAHRLIE HART UNIT #: [id number] #: [id number] ROOM #: [facility] BED: 1 : 35 AGE: 88 SEX: M ATTEND: Tony Gautam MD ADM AUTHOR: Kaleigh Gonzalez ATTENTION EDITS and/or ADDENDA must be made in Patient Keeper for this note. Edits and ammendments created in [facility] are not visible in Patient Keeper or the legal medical record (HPF). -- CO-SIGNATURE -- COMMENTS:I obtained the history and performed the physical examination in supervision ofKaleigh Gonzalez PA-C. I concur with her findings with the following additions: Patient is an 88yo M with SSS, CAD s/p ACB, now with RA lead dislodgementfollowing surgery. EP consulted for possible RA lead revision. Gen: NAD, A Cd8EBWAV: anicteric sclera, MMMNeck: supple, no JVDCV: RRR, bandage c/d/iLungs: CTABAbd: soft, NTNDExt: no c/c/eNeuro: non-focalPsych: alert, appropriate, mood and affect normal The plan is to perform RA lead revision early next week. Signed in PatientKeeper by CHIKIS OWENS MD on 08/16/23 at 21:29 -- ASSESSMENT AND PLAN -- PROBLEMS: 1: Atrial pacemaker lead displacementA/P: - POD #2, repeated interrogations with poor atrial lead capture requiringhigh output highly suggestive of atrial lead failure/dislodgment- Intra op AF noted requiring cardioversion- Salcedo DC pacemaker in situ, implanted 11/2021 - Dr Celis- LVEF 40%, recent ACB x3 (08/13/22 - Dr Powell)- c/w optimal tolerated medical therapy per Dr Deng team- pending repeat echocardiogram- will continue to monitor for AF on telemetry- on amio gtt- CHADS2-VASC: 5 (HF, HTN, Age 75+ CAD)- planning RA lead revision next week, discussed with patient and family atbedside, discussed clinical indications, realistic expectations and outcomes,benefits and risks. He and family verbalize understanding, wish to pursue -tentatively Friday 08/18 - Discussed with Dr Chikis Owens -- HISTORY -- CONSULT REQUESTED BY:Gino Deng MD DATE/TIME AT BEDSIDE:2023-08-15 11:15 REASON FOR CONSULT:RA lead failure HPI:Mr. 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 Intra-operatively developed AF and wascardioverted. Now POD 2, bedside Salcedo pacemaker interrogations concerning for high atrialthresholds for capture, 5V concerning for RA lead failure and dislodgment, EPconsulted for RA lead revision. He is extubated w/ family at bedside,participating in some PT. Will coordinate RA lead revision next week. 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 to 50%, HLD, BPH, vitamin B12 deficiency,PPM November 2021 PAST SURGICAL HISTORY:LHC 08/09/2023, PPM November 2021 FAMILY HISTORY:Noncontributory -SOCIAL HISTORY- LIVING SITUATION:, lives at home with and one of the daughters -- ALLERGIES/HOME MEDS -- ALLERGIES:No Known Allergies (UNKNOWN - Allergy) HOME MEDICATIONS:AREDS 2 CAP PO DAILYaspirin chewable tablet 81 MG PO DAILYAtorvastatin Tab (Lipitor Tab) 10 MG PO DAILYClopidogrel Tab (Plavix Tab) 75 MG PO DAILYFosamax tablet (alendronate) 70 MG PO F9VEcpsstfmoz Mononitrate Tab.ER (Imdur Tab) 30 MG PO DAILYMetoprolol Succinate XL Tab (Toprol XL Tab) 25 MG PO DAILYolopatadine 0.2 % eye drops 1 DROP Each Eye DAILYtraMADol Tab (Ultram Tab) 50 MG PO BID traMADol Tab.ER (NF) (Ultram Tab.ER (NF)) 150 MG PO DAILY -- SUBJECTIVE -- -REVIEW OF SYSTEMS- GENERAL: See above -- OBJECTIVE -- VITALS (08/14 10:29 - 08/15 10:29):Temperature F: 99.1 (99.1 - 99.9)Temperature C: 37.2 (37.1 - 37.8)Temperature source: CorePulse Rate 80 (72 - 86)Respiratory rate: 24 (11 - 28)Blood pressure: 114/65 (-22/-23 - 156/146)Blood pressure source: Arterial I/Os (08/14 07:00 - 08/15 07:00):Net 444.80Intake 1,680.80Output 1,236 -EXAM- GENERAL: Well developed, well nourished, in no apparent distress.HEAD: Normocephalic, atraumatic.EYES: PERRL, EOM intact, conjunctiva and sclera clear, without nystagmus, lids normal.EARS: markedly diminished hearing.NOSE: No deformity, no discharge, no inflammation, no lesions.MOUTH: Oropharynx without deformities or lesions, normal mucosa..NECK: No masses, no thyromegaly, no abnormal cervical nodes, trachea midline.CHEST: NANCY PPMLUNGS: Clear bilaterally with normal respiratory effort.HEART: RRR; II/ LUIS at LLSBABDOMEN: Soft, non-tender, no organomegaly, no masses noted.MUSCULOSKELETAL: No deformity, no scoliosis noted of thoracic or lumbar spine, joint ROM grossly normal, normal gait and station.EXTREMITIES: No clubbing, no cyanosis, no edema.NEUROLOGICAL: No focal deficits, normal sensation, normal reflexes, normal coordination, normal muscle strength, normal tone.PULSES: Pulses normal in all extremities. -- DATA -- ALLERGIES No Known Allergies - Reported By: Pj Benavides MEDICATIONS POTASSIUM CHLORIDE 20 MEQ IV ASDIR (PRN) MAG HYDROX/AL HYDROX/SIMETH 30 ML PO Q6H PRNtraMADol HCL 50 MG PO BID (PRN)EPINEPHrine HCL/D5W 4 MG IV ASDIRpolyethylene glycoL 3350 1 PKT PO DAILYDOCUSATE SODIUM 200 MG PO DAILYFUROSEMIDE 20 MG IV BIDMUPIROCIN 1 APPLIC NASAL BIDASPIRIN 81 MG PO DAILYclopidogreL 75 MG PO DAILYbisacodyL 10 MG RECTAL ASDIR PRNGLUCAGON 1 MG IM ASDIR PRNLACTULOSE 30 ML PO ASDIR PRNCYANOCOBALAMIN 500 MCG PO DAILYMAGNESIUM 1 GM IV ASDIR PRNNOREPINEPHRINE BITARTRATE 4 MG IV TITRATEcloNIDine HCL 0.1 MG PO Q8H PRNNITROGLYCERIN 0.4 MG SL Q5M PRNONDANSETRON HCL/PF 4 MG IV Q6H PRNLACTULOSE 30 ML PO ASDIR PRNKETOTIFEN FUMARATE 1 DROP EACH EYE BID PRNCALCIUM GLUC IN NACL, ISO-OSM 2 GM IV ASDIR PRNACETAMINOPHEN 650 MG RECTAL Q4H PRNACETAMINOPHEN 650 MG PO Q4H PRNAMIODARONE HCL/D5W 450 MG IV ASDIRSODIUM BICARBONATE 8.4% 50 MEQ IV .ONCE PRNAMIODARONE HCL 200 MG PO BIDDEXTROSE 50%-WATER 25 ML IV ASDIR PRNMETOPROLOL TARTRATE 5 MG IV Q6H PRNSODIUM CHLORIDE 10 mL 10 ML IV ASDIRFERROUS SULFATE 325 MG PO DAILYATORVASTATIN CALCIUM 40 MG PO BEDTIME LABS CBC W/AUTO DIFF (08/15/23 03:05)WHITE BLOOD CELL 9.5RED BLOOD CELL 3.09 LHEMOGLOBIN 9.3L LHEMATOCRIT 28.3L LMEAN CELL VOLUME 91.6MEAN CELL HGB 30.1MEAN CELL HGB CONCENTRATION 32.9 LRED CELL DISTRIBUTION WIDTH 24.1 HPLATELET COUNT 126L LMEAN PLATELET VOLUME 10.3NEUTROPHIL % 78.7 HLYMPHOCYTE % 7.8 LMONOCYTE % 12.4 HEOSINOPHIL % 0.5BASOPHIL % 0.2NEUTROPHIL # 7.48LYMPHOCYTE # 0.74 LMONOCYTE # 1.18 HEOSINOPHIL # 0.05BASOPHIL # 0.02 BASIC METABOLIC PANEL (08/15/23 03:05)SODIUM 143POTASSIUM 4.6D DCHLORIDE 108H H CARBON DIOXIDE 28GLUCOSE 109H HBLOOD UREA NITROGEN 24H HGLOMERULAR FILTRATION RATE >=60 max estimateCREATININE 1.00CALCIUM 7.8 D L MAG (08/15/23 03:05)MAGNESIUM 1.9 MAG (08/14/23 18:40)MAGNESIUM 1.6 BASIC METABOLIC PANEL (08/14/23 18:40)SODIUM 149H HPOTASSIUM 3.2L LCHLORIDE 118H HCARBON DIOXIDE 22GLUCOSE 92BLOOD UREA NITROGEN 20GLOMERULAR FILTRATION RATE >=60 max estimateCREATININE 0.80CALCIUM 6.2 D L BASIC METABOLIC PANEL (08/14/23 13:28)SODIUM 145POTASSIUM 3.9CHLORIDE 109H HCARBON DIOXIDE 29GLUCOSE 117H HBLOOD UREA NITROGEN 24H HGLOMERULAR FILTRATION RATE >=60 max estimateCREATININE 1.10CALCIUM 8.6 L PHOS (08/14/23 13:28)PHOSPHOROUS 4.2 MAG (08/14/23 13:28)MAGNESIUM 2.1 VITALS Temperature F: 08/15/23 09:31 08/15/23 09:29 08/15/23 09:14 08/15/23 09:05 08/15/23 08:59 08/15/23 08:44 08/15/23 08:30 08/15/23 08:29 08/15/23 08:14 08/15/23 08:00 99.1Pulse Rate 08/15/23 09:31 80 08/15/23 09:29 81 08/15/23 09:14 83 08/15/23 09:05 80 08/15/23 08:59 78 08/15/23 08:44 75 08/15/23 08:30 79 08/15/23 08:29 79 08/15/23 08:14 77 08/15/23 08:00 77Respiratory rate: 08/15/23 09:31 24 08/15/23 09:29 21 08/15/23 09:14 23 08/15/23 09:05 22 08/15/23 08:59 21 08/15/23 08:44 19 08/15/23 08:30 21 08/15/23 08:29 19 08/15/23 08:14 18 08/15/23 08:00 20Blood pressure: 08/15/23 09:31 08/15/23 09:29 08/15/23 09:14 08/15/23 09:05 108 / 71 08/15/23 08:59 08/15/23 08:44 08/15/23 08:30 113 / 64 08/15/23 08:29 08/15/23 08:14 08/15/23 08:00 106 / 59SPO2 %: 08/15/23 09:31 93 08/15/23 09:29 90 08/15/23 09:14 93 08/15/23 09:05 08/15/23 08:59 99 08/15/23 08:44 96 08/15/23 08:30 08/15/23 08:29 08/15/23 08:14 08/15/23 08:00 99 -- ATTESTATION -- TIME SPENT ON PATIENT CARE: - Direct - Counseling - Coordination of care - > 50% of time spent on counseling/care coordination CARE ACTIVITIES / CARE COORDINATION: - I have reviewed the history and repeated the dee elements - I have seen and examined this patient - I have reviewed the progress in the clinical course since the lastexamination - I have discussed the patient's condition with other members of the care team Signed in PatientKeeper by Kaleigh Gonzalez on 08/15/23 at 12:02 Cosigned by CHIKIS OWENS MD on 08/16/23 at 21:29 at 2128 at 2128ATTENTION EDITS and/or ADDENDA must be made in Patient Keeper for this note. Edits and ammendments created in [employer] are not visible in Patient Keeper or the legal medical record (HPF). RPT #: [id number] OF [id number]:29:00P.PK-NO [id number] for patient [id number]:30:04 [facility] 2023-08-15 09:11:00 [id number]/LUe/[id number] [id number]11-92-44P69:11:00 [facility] ([facility]) Intensive Care Progress Note REPORT #: [id number] REPORT STATUS: Signed DATE: 08/15/23 TIME: 910 PATIENT: CHARLIE HART UNIT #: [id number] #: [id number] ROOM #: P.0311 BED: 1 : 35 AGE: 88 SEX: M ATTEND: Tony Gautam MD ADM AUTHOR: Yoav Hernandez MD ATTENTION EDITS and/or ADDENDA must be made in Patient Keeper for this note. Edits and ammendments created in [employer] are not visible in Patient Keeper or the legal medical record (HPF). -- ASSESSMENT AND PLAN -- GENERAL ASSESSMENT:Assessment and PlanMrCarole Hart is an 88 year-old male with past medical history of hypertension,hyperlipidemia, coronary artery disease, carotid disease, presence of permanentpacemaker (2021), pulmonary hypertension, and ischemic cardiomyopathy withprevious ejection fraction 40-50% admitted today post-op CABG x [address] Powell.Intra-op, patient went into AFib, and blood pressure dropped, so wasre-explored, and eventually cardioverted. Patient came out on 0.03mcg ofEpinephrine. NeuroICU Analgesia/Sedation- Tramadol, Tylenol for pain CVCAD s/p CABG x 3Cardiogenic ShockVasoplegic ShockHTNPPMPAH- off Inotropes/Vasopressors- PPM interrogated, elevated thresholds, but working well- started on PO Amio, stopping gt- possible chest tube removal after walking Resp- on 3L NC, incentive spirometry GI- advance diet as tolerated RenalHyperantremia- Will follow BUN/Cr/UOP- Lasix 20mg IV BID started Heme- CBC, Coags stable since morning ID - no signs of infection- post-op Abx continued Endo- monitor BG- will cover with SS Insulin Prophylaxis- SCD- PPI/H2 Advanced Care Planning:Code: FullMPOA , daughterAdvanced Care Plan: Yes Medications reviewed with the clinical pharmacist Yoav Hernandez, [facility] [place] -- SUBJECTIVE -- PATIENT NARRATIVE:Overnight Events: No acute overnight events. 10 System, 2 point ROS negative except for above. -- OBJECTIVE -- VITALS (08/14 09:11 - 08/15 09:11):Temperature F: 99.1 (99.1 - 99.9)Temperature C: 37.2 (37.1 - 37.8)Temperature source: CorePulse Rate 74 (72 - 86)Respiratory rate: 18 (11 - 28)Blood pressure: 110/62 (-22/-23 - 156/146)Blood pressure source: Monitor I/Os (08/14 07:00 - 08/15 07:00):Net 444.80Intake 1,680.80Output 1,236 -- DATA -- MEDICATIONS POTASSIUM CHLORIDE 20 MEQ IV ASDIR (PRN)MAG HYDROX/AL HYDROX/SIMETH 30 ML PO Q6H PRNtraMADol HCL 50 MG PO BID (PRN)EPINEPHrine HCL/D5W 4 MG IV ASDIRpolyethylene glycoL 3350 1 PKT PO DAILYDOCUSATE SODIUM 200 MG PO DAILYFUROSEMIDE 20 MG IV BIDMUPIROCIN 1 APPLIC NASAL BIDASPIRIN 81 MG PO DAILYclopidogreL 75 MG PO DAILYbisacodyL 10 MG RECTAL ASDIR PRNGLUCAGON 1 MG IM ASDIR PRN LACTULOSE 30 ML PO ASDIR PRNCYANOCOBALAMIN 500 MCG PO DAILYMAGNESIUM 1 GM IV ASDIR PRNNOREPINEPHRINE BITARTRATE 4 MG IV TITRATEcloNIDine HCL 0.1 MG PO Q8H PRNNITROGLYCERIN 0.4 MG SL Q5M PRNONDANSETRON HCL/PF 4 MG IV Q6H PRNLACTULOSE 30 ML PO ASDIR PRNKETOTIFEN FUMARATE 1 DROP EACH EYE BID PRNCALCIUM GLUC IN NACL, ISO-OSM 2 GM IV ASDIR PRNACETAMINOPHEN 650 MG RECTAL Q4H PRNACETAMINOPHEN 650 MG PO Q4H PRNAMIODARONE HCL/D5W 450 MG IV ASDIRSODIUM BICARBONATE 8.4% 50 MEQ IV .ONCE PRNAMIODARONE HCL 200 MG PO BIDDEXTROSE 50%-WATER 25 ML IV ASDIR PRNMETOPROLOL TARTRATE 5 MG IV Q6H PRNSODIUM CHLORIDE 10 mL 10 ML IV ASDIRFERROUS SULFATE 325 MG PO DAILYATORVASTATIN CALCIUM 40 MG PO BEDTIME LABS CBC W/AUTO DIFF (08/15/23 03:05)WHITE BLOOD CELL 9.5RED BLOOD CELL 3.09 LHEMOGLOBIN 9.3L LHEMATOCRIT 28.3L LMEAN CELL VOLUME 91.6MEAN CELL HGB 30.1MEAN CELL HGB CONCENTRATION 32.9 LRED CELL DISTRIBUTION WIDTH 24.1 HPLATELET COUNT 126L LMEAN PLATELET VOLUME 10.3NEUTROPHIL % 78.7 HLYMPHOCYTE % 7.8 LMONOCYTE % 12.4 HEOSINOPHIL % 0.5BASOPHIL % 0.2NEUTROPHIL # 7.48LYMPHOCYTE # 0.74 LMONOCYTE # 1.18 HEOSINOPHIL # 0.05BASOPHIL # 0.02 BASIC METABOLIC PANEL (08/15/23 03:05)SODIUM 143POTASSIUM 4.6D DCHLORIDE 108H HCARBON DIOXIDE 28GLUCOSE 109H HBLOOD UREA NITROGEN 24H HGLOMERULAR FILTRATION RATE >=60 max estimateCREATININE 1.00CALCIUM 7.8 D L MAG (08/15/23 03:05)MAGNESIUM 1.9 MAG (08/14/23 18:40) MAGNESIUM 1.6 BASIC METABOLIC PANEL (08/14/23 18:40)SODIUM 149H HPOTASSIUM 3.2L LCHLORIDE 118H HCARBON DIOXIDE 22GLUCOSE 92BLOOD UREA NITROGEN 20GLOMERULAR FILTRATION RATE >=60 max estimateCREATININE 0.80CALCIUM 6.2 D L BASIC METABOLIC PANEL (08/14/23 13:28)SODIUM 145POTASSIUM 3.9CHLORIDE 109H HCARBON DIOXIDE 29GLUCOSE 117H HBLOOD UREA NITROGEN 24H HGLOMERULAR FILTRATION RATE >=60 max estimateCREATININE 1.10CALCIUM 8.6 L PHOS (08/14/23 13:28)PHOSPHOROUS 4.2 MAG (08/14/23 13:28)MAGNESIUM 2.1 -- ATTESTATION -- TIME SPENT ON PATIENT CARE: - Critical Care: time spent apart from any procedure 40 minutes CARE ACTIVITIES / CARE COORDINATION: - I have reviewed the history and repeated the dee elements - I have seen and examined this patient - I have reviewed the progress in the clinical course since the lastexamination - I have discussed the patient's condition with other members of the care team Signed in PatientKeeper by Yoav Hernandez MD on 08/15/23 at 09:12 at 0912ATTENTION EDITS and/or ADDENDA must be made in Patient Keeper for this note. Edits and ammendments created in [employer] are not visible in Patient Keeper or the legal medical record (HPF). RPT #: [id number] OF REPORTPRProgress [id number]:11:00P.XL-[id number] ailable for patient [id number]:13:18 [facility] 2023-08-14 16:45:00 [id number]/D XFXW+4pShHihI3/zcl2/[id number]:45:00 [facility] ([facility]) Hospitalist Progress Note REPORT #: [id number] REPORT STATUS: Signed DATE: 08/14/23 TIME: 1645 PATIENT: CHARLIE HART UNIT #: [id number] #: [id number] ROOM #: P.0311 BED: 1 : 35 AGE: 88 SEX: M ATTEND: Tony Gautam MD ADM AUTHOR: Tony Gautam MD ATTENTION EDITS and/or ADDENDA must be made in Patient Keeper for this note. Edits and ammendments created in [employer] are not visible in Patient Keeper or the legal medical record (HPF). -- ASSESSMENT AND PLAN -- GENERAL ASSESSMENT: ASSESSMENT AND PLAN: 1. Recent non-ST segment elevation myocardial infarction, around July.S/p coronary angiogram 08/09 showing multivessel coronary artery disease,not amenable to percutaneous coronary intervention.LAD 90 to 99% lesion, left circumflex proximal 90%, 95% obtuse marginal lesion;Occluded proximal RCA. Left ventricular end-diastolic pressure 12;Left ventricular ejection fraction 40%, severe anteroapical hypokinesis.The patient is being admitted to [facility] for higher level of care.Given his multiple comorbidities, coronary intervention is being decided upon,percutaneous versus surgical.Optimized statin dose, continue aspirin and beta-blockers.Plavix was withheld only from 08/08.the patient underwent CABG x [address] Powell 08/13/22. 2. Hypertension continue metoprolol. 3. Hyperlipidemia. Increased statins to high-dose for now. 4. Pulmonary hypertension 5. Benign prostatic hyperplasia. 6. 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 7. Chronic neck pain. Continue home dose of tramadol. 8. PAF, periop, amiodarone. 9. Lactic acidosis, related to surgery. 10. Acute surgical blood loss anemia.2 units PRBC and 1 unit FFP transfused 08/13. ADDITIONAL COMMENTS:s/p CABG by Dr. João Powell 08/13/22.Continue postoperative care -- SUBJECTIVE -- HPI: This 88-year-old gentleman has a past medical history significant forhypertension, pulmonary hypertension,Nonobstructive coronary artery disease, ischemic cardiomyopathy, with aprevious ejection fraction of 40 to 50%,hyperlipidemia, benign prostatic hyperplasia, vitamin B12 deficiency, Permanentpacemaker placement in November 2021.The patient was in his usual state of health until recently when he developedrecurrent chest pain, suggestive of angina.He was taken to the [place] emergency room on August 05, 2023 where he wasruled in for non-ST segment elevation myocardial infarction.He was started on heparin and transferred to [facility] where he wasobserved for a couple of days and improved on medical therapy.Echocardiogram showed apical wall motion abnormalities with preserved leftventricular ejection fraction.As the patient was doing well on medical management[facility].He was seen by his primary manager front office, Dr Deyvi Celis and admitted forselective coronary angiogramon August 09, 2023 to [facility].This showed multivessel coronary artery disease,LAD 90 to 99% lesion, left circumflex proximal 90%, 95% obtuse marginal lesion;Occluded proximal RCA. Left ventricular end-diastolic pressure 12;Left ventricular ejection fraction 40%, severe anteroapical hypokinesis.He has been transferred to [facility] for consideration of CABG by Dr.Eyal Powell.When seen in the room the patient is awake alert and oriented and verbalizesthe above. PATIENT NARRATIVE: 08/10: The patient denies any chest pain or shortness of breath at this time.Denies any headache or dizziness.No nausea vomiting.labs pending.echo at the OSH shows:1. Left ventricle: The cavity size is normal. Wall thickness is normal.Systolic function is normal. The estimated ejection fraction is 50-54%.Regional wall motion abnormalities cannot be excluded. Grade I diastolicdysfunction.2. Atrial septum: No defect or patent foramen ovale is identified. He has been seen by the heart team.Given his multiple comorbidities, coronary intervention is being decided upon,percutaneous versus surgical.Plan of care discussed with the patient and his daughter, Elizabeth, at bedside. 08/11: Repeat echo over here shows:1. Left ventricle: The cavity size is normal. Wall thickness is normal.Systolic function is moderately reduced. The estimated ejection fractionis 35-39%. Wall motion is normal; there are no regional wall motion abnormalities. Grade I diastolic dysfunction.2. Aortic valve: The findings are consistent with moderate to severe stenosis.The mean systolic gradient is 15 mm Hg. The valve area is 0.98 cm 2.3. Mitral valve: The annulus is mildly to moderately calcified.Possible low flow low gradient aortic stenosis. Considerfurther evaluation with dobutamine stress echocardiogram.Patient is being evaluated by the consultants.Patient has expressed that the he would prefer getting surgery if his heartcould be taken care of percutaneously.Await final recommendations. 08/12: No acute events overnight.No chest pain or shortness of breath.After extensive discussions, the final recommendations are for CABG by Dr. Young 08/13: the patient underwent CABG x [address] Powell.Intra-op, patient went into AFib, and blood pressure dropped,so was re-explored, and eventually cardioverted. on 0.03mcg of Epinephrine.Received 2 units of PRBC, and 1 unit of FFP. 08/14: Extubated postoperative day 0.On 2 L of oxygen via nasal cannula. -REVIEW OF SYSTEMS- GENERAL: as above -- OBJECTIVE -- VITALS (08/13 16:45 - 08/14 16:45):Temperature F: 99.9Temperature C: 37.5 (37.5 - 38.2)Temperature source: CorePulse Rate 78 (59 - 84)Respiratory rate: 22 (2 - 38)Blood pressure: 125/63 (68/48 - 156/96)Blood pressure source: Arterial I/Os (08/13 07:00 - 08/14 07:00):Net 358.50Intake 2,626.50Output 2,268 -EXAM- GENERAL: Well developed, well nourished, in no apparent distress.HEAD: Normocephalic, atraumatic.EYES: PERRL, EOM intact, conjunctiva and sclera clear, without nystagmus, lids normal.EARS: markedly diminished hearing.NOSE: No deformity, no discharge, no inflammation, no lesions.MOUTH: Oropharynx without deformities or lesions, normal mucosa..NECK: No masses, no thyromegaly, no abnormal cervical nodes, trachea midline.CHEST: NANCY PPM LUNGS: Clear bilaterally with normal respiratory effort.HEART: RRR; II/ LUIS at LLSBABDOMEN: Soft, non-tender, no organomegaly, no masses noted.MUSCULOSKELETAL: No deformity, no scoliosis noted of thoracic or lumbar spine, joint ROM grossly normal, normal gait and station.EXTREMITIES: No clubbing, no cyanosis, no edema.NEUROLOGICAL: No focal deficits, cranial nerves II-XII grossly intact, normal sensation, normal reflexes, normal coordination, normal muscle strength, normal tone.PULSES: Pulses normal in all extremities. -- DATA -- MEDICATIONS POTASSIUM CHLORIDE 20 MEQ IV ASDIR (PRN)MAG HYDROX/AL HYDROX/SIMETH 30 ML PO Q6H PRNtraMADol HCL 50 MG PO BID (PRN)EPINEPHrine HCL/D5W 4 MG IV ASDIRpolyethylene glycoL 3350 1 PKT PO DAILYMAGNESIUM HYDROXIDE 30 ML PO ASDIR PRNDOCUSATE SODIUM 200 MG PO DAILYMUPIROCIN 1 APPLIC NASAL BIDASPIRIN 81 MG PO DAILYbisacodyL 10 MG RECTAL ASDIR PRNGLUCAGON 1 MG IM ASDIR PRNLACTULOSE 30 ML PO ASDIR PRNCYANOCOBALAMIN 500 MCG PO DAILYMAGNESIUM 1 GM IV ASDIR PRNNOREPINEPHRINE BITARTRATE 4 MG IV TITRATEcloNIDine HCL 0.1 MG PO Q8H PRNNITROGLYCERIN 0.4 MG SL Q5M PRNONDANSETRON HCL/PF 4 MG IV Q6H PRNLACTULOSE 30 ML PO ASDIR PRNKETOTIFEN FUMARATE 1 DROP EACH EYE BID PRNCALCIUM GLUC IN NACL, ISO-OSM 2 GM IV ASDIR PRNACETAMINOPHEN 650 MG RECTAL Q4H PRNACETAMINOPHEN 650 MG PO Q4H PRNAMIODARONE HCL/D5W 450 MG IV ASDIRSODIUM BICARBONATE 8.4% 50 MEQ IV .ONCE PRNAMIODARONE HCL 200 MG PO BIDDEXTROSE 50%-WATER 25 ML IV ASDIR PRNtraMADol HCL 50 MG PO [id number] TARTRATE 5 MG IV Q6H PRNACETAMINOPHEN 650 MG PO M0EABYOMYP CHLORIDE 10 mL 10 ML IV ASDIRFERROUS SULFATE 325 MG PO DAILYATORVASTATIN CALCIUM 40 MG PO BEDTIME LABS BASIC METABOLIC PANEL (08/14/23 13:28)SODIUM 145POTASSIUM 3.9CHLORIDE 109H HCARBON DIOXIDE 29GLUCOSE 117H HBLOOD UREA NITROGEN 24H H GLOMERULAR FILTRATION RATE >=60 max estimateCREATININE 1.10CALCIUM 8.6 L PHOS (08/14/23 13:28)PHOSPHOROUS 4.2 MAG (08/14/23 13:28)MAGNESIUM 2.1 FIB (08/14/23 03:15)FIBRINOGEN 396 MAG (08/14/23 03:15)MAGNESIUM 2.0 PROTHROMBIN TIME (08/14/23 03:15)PROTHROMBIN TIME PATIENT 13.9 HINTERNATIONAL NORMAL RATIO 1.25 H PTT (08/14/23 03:15)THROMBOPLASTIN TIME PARTIAL 26.2 BASIC METABOLIC PANEL (08/14/23 03:15)SODIUM 147H HPOTASSIUM 4.2CHLORIDE 110H HCARBON DIOXIDE 28GLUCOSE 136H HBLOOD UREA NITROGEN 24H HGLOMERULAR FILTRATION RATE 58 LCREATININE 1.20CALCIUM 9.1 LIVER FUNCTION PANEL (08/14/23 03:15)TOTAL PROTEIN 5.7ALBUMIN 3.5BILIRUBIN TOTAL 4.8 HBILIRUBIN DIRECT 0.5 HSGOT/AST 45 HSGPT/ALT 19ALKALINE PHOSPHATASE 49.0 LACTIC ACID (08/14/23 03:14)LACTIC ACID 2.70 *H CBC W/AUTO DIFF (08/14/23 03:14)WHITE BLOOD CELL 8.0RED BLOOD CELL 3.36 LHEMOGLOBIN 10.1D L D LHEMATOCRIT 29.9L LMEAN CELL VOLUME 89.0 DMEAN CELL HGB 30.1MEAN CELL HGB CONCENTRATION 33.8RED CELL DISTRIBUTION WIDTH 23.9 HPLATELET COUNT 144L LMEAN PLATELET VOLUME 10.1NEUTROPHIL % 84.2 HLYMPHOCYTE % 3.4 LMONOCYTE % 12.0 H EOSINOPHIL % 0.0BASOPHIL % 0.1NEUTROPHIL # 6.71LYMPHOCYTE # 0.27 LMONOCYTE # 0.96 HEOSINOPHIL # 0.00BASOPHIL # 0.01 PHOS (08/14/23 03:06)PHOSPHOROUS 4.3 BLOOD GAS W/ELECTROLYTES (08/14/23 01:38)ARTERIAL BLOOD GAS PH 7.48 HARTERIAL BLOOD GAS PCO2 33.4 LARTERIAL BLOOD GAS PO2 74.3 LBICARBONATE TOTAL HCO3 24.0BASE EXCESS 0.8ABG O2 SATURATION 95.2ARTERIAL FIO2 32.0ABG VENT MODE NASAL CANNULAALLENS TEST MDSODIUM (POC) 145POTASSIUM (POC) 4.42CHLORIDE (ARTERIAL) 107GLUCOSE 124 HIONIZED CALCIUM 1.21POC LACTIC ACID 2.81 HTOTAL HGB 10.9 D LOXYHEMOGLOBIN 94.1CARBOXYHEMOGLOBIN 0.9METHEMOGLOBIN <0.8HHb 4.7TCO2 ARTERIAL 25.1 BLOOD GAS W/ELECTROLYTES (08/13/23 23:37)ARTERIAL BLOOD GAS PH 7.47 HARTERIAL BLOOD GAS PCO2 35.8ARTERIAL BLOOD GAS PO2 120.7 HBICARBONATE TOTAL HCO3 25.4 HBASE EXCESS 1.7ABG O2 SATURATION 98.1ARTERIAL FIO2 40.0ABG VENT MODE VentilatorALLENS TEST NOT APPLICABLESODIUM (POC) 146POTASSIUM (POC) 4.25CHLORIDE (ARTERIAL) 109 HGLUCOSE 121 HIONIZED CALCIUM 1.22POC LACTIC ACID 3.12 HTOTAL HGB 9.6 D LOXYHEMOGLOBIN 97.4CARBOXYHEMOGLOBIN 0.4METHEMOGLOBIN <0.8HHb 1.9TCO2 ARTERIAL 26.5 BLOOD GAS W/ELECTROLYTES (08/13/23 21:05)ARTERIAL BLOOD GAS PH 7.44ARTERIAL BLOOD GAS PCO2 35.7 ARTERIAL BLOOD GAS PO2 198.8 HBICARBONATE TOTAL HCO3 23.8BASE EXCESS -0.2ABG O2 SATURATION 99.0ARTERIAL FIO2 60.0ABG VENT MODE VentilatorALLENS TEST NOT APPLICABLESODIUM (POC) 146POTASSIUM (POC) 4.11CHLORIDE (ARTERIAL) 108GLUCOSE 114 HIONIZED CALCIUM 1.22POC LACTIC ACID 4.81 HTOTAL HGB 9.0 D LOXYHEMOGLOBIN 97.9CARBOXYHEMOGLOBIN 0.8METHEMOGLOBIN <0.8HHb 1.0TCO2 ARTERIAL 24.9 PHOS (08/13/23 21:00)PHOSPHOROUS 3.8 PTT (08/13/23 21:00)THROMBOPLASTIN TIME PARTIAL 28.2 MAG (08/13/23 21:00)MAGNESIUM 2.1 FIB (08/13/23 21:00)FIBRINOGEN 317 BASIC METABOLIC PANEL (08/13/23 21:00)SODIUM 148H HPOTASSIUM 4.2CHLORIDE 110H HCARBON DIOXIDE 26GLUCOSE 124H HBLOOD UREA NITROGEN 22GLOMERULAR FILTRATION RATE >=60 max estimateCREATININE 1.10CALCIUM 9.7 CBC W/AUTO DIFF (08/13/23 21:00)WHITE BLOOD CELL 7.6RED BLOOD CELL 2.62 LHEMOGLOBIN 8.4L LHEMATOCRIT 25.2L LMEAN CELL VOLUME 96.2 HMEAN CELL HGB 32.1 HMEAN CELL HGB CONCENTRATION 33.3RED CELL DISTRIBUTION WIDTH 18.6 HPLATELET COUNT 144L LMEAN PLATELET VOLUME 10.0NEUTROPHIL % 84.6 HLYMPHOCYTE % 2.4 LMONOCYTE % 12.6 HEOSINOPHIL % 0.0BASOPHIL % 0.1NEUTROPHIL # 6.43 LYMPHOCYTE # 0.18 LMONOCYTE # 0.96 HEOSINOPHIL # 0.00BASOPHIL # 0.01 LACTIC ACID (08/13/23 21:00)LACTIC ACID 5.00 *H PROTHROMBIN TIME (08/13/23 21:00)PROTHROMBIN TIME PATIENT 12.7INTERNATIONAL NORMAL RATIO 1.14 H BLOOD GAS W/ELECTROLYTES (08/13/23 17:51)ARTERIAL BLOOD GAS PH 7.35ARTERIAL BLOOD GAS PCO2 37.0ARTERIAL BLOOD GAS PO2 177.6 HBICARBONATE TOTAL HCO3 19.7 LBASE EXCESS -5.4 LABG O2 SATURATION 98.9ARTERIAL FIO2 60.0ABG VENT MODE VENTALLENS TEST NOT APPLICABLESODIUM (POC) 144POTASSIUM (POC) 3.97CHLORIDE (ARTERIAL) 108GLUCOSE 151 HIONIZED CALCIUM 1.10 LPOC LACTIC ACID 6.03 HTOTAL HGB 11.0 D LOXYHEMOGLOBIN 98.0CARBOXYHEMOGLOBIN 0.6METHEMOGLOBIN <0.8HHb 1.1TCO2 ARTERIAL 20.9 L -- QUALITY -- -MEDICATIONS- - I attest that the foregoing medication list in the medical record is true,accurate, and complete to the best of my knowledge. -- ATTESTATION -- CARE ACTIVITIES / CARE COORDINATION: - I have reviewed the history and repeated the dee elements - I have seen and examined this patient - I have reviewed the progress in the clinical course since the lastexamination - I have discussed the patient's condition with other members of the care team Signed in PatientKeeper by Tony Gautam MD on 08/14/23 at 21:59 at [id number] EDITS and/or ADDENDA must be made in Patient Keeper for this note. Edits and ammendments created in [employer] are not visible in Patient Keeper or the legal medical record (HPF). RPT #: [id number] OF REPORTPRProgress cues6517-30-06I17:45:00P.DM-[id number] ailable for patient dvboHAGTCNSNKZEETU0066-05-63B03:00:16 [facility] 2023-08-14 15:27:00 [id number]/ G32CpzWy2m+NDCJbDBUT4Ou2Vqvf9 N4hzI9CEHIGIBvjAj/SBZSSNyiE8435-46-99P13:27:00 [facility] ([facility]) Cardiology Progress Notes REPORT #: [id number] REPORT STATUS: Signed DATE: 08/14/23 TIME: 1526 PATIENT: CHARLIE HART UNIT #: [id number] #: [id number] ROOM #: P.0311 BED: 1 : 35 AGE: 88 SEX: M ATTEND: Tony Gautam MD ADM AUTHOR: Trina Marquez MD CF1 ATTENTION EDITS and/or ADDENDA must be made in Patient Keeper for this note. Edits and ammendments created in [employer] are not visible in Patient Keeper or the legal medical record (HPF). -- CO-SIGNATURE -- COMMENTS:Agree with the findings and plan as documented by HousestaffI have seen and examined this patient * my personal evaluation is S/p DSEON-ajv-glygfeiuvyfvrw atrial fibrillation with rapid ventricularresponse-converted back to sinus rhythmProgressing well postoperativelyS/p extubationOff all inotropes and vasopressorsContinue aspirin and LipitorStart Plavix once okay with CT surgery team I devoted my full attention for this service to the direct care of this patientand time devoted to teaching and other procedures is not included. Total time spent providing critical care (non-overlapping/non-continuous time):35 minutes Life threatening disease due to CAD-status post CABG during this admission Invasive hemodynamic monitoring Organ systems impaired or failing: Cardiac I have reviewed the history and repeated the dee elements I have reviewed the progress in the clinical course since the last examination I have discussed the patient's condition with other consultants and members ofthe care team I have independently interpreted available diagnostic studies (EKG CXR EchoCardiac cath) Signed in PatientKeeper by NELIA HSU MD on 08/15/23 at 13:49 -- ASSESSMENT AND PLAN -- GENERAL ASSESSMENT:88 years old gentleman who underwent 3 v CABG and developed cardiogenic andvasoplegic shock, also suffered from Afib intraoperatively and wascardioverted, now on Amiodarone drip, doing well, extubated, and is on nasalcannula supplemental oxygen. PROBLEMS: 1: Coronary artery diseaseA/P: S/P CABG x 3, POD # 1, Extubated,Chest tubes present, following out put, CV Surgery following the case.Off the pressors and inotropic supportOptimization of medicationAsa 81 mg , Atorvastatin 80 mg po daily. 2: AfibA/P: History of Atrial fibrilaltion s/p ppmIntra operative Atrial fibrillation with RVR, cardioverted back to sinusNow on Amiodarone drip.PPM interrogation completed, no active issues. -- SUBJECTIVE -- CHIEF COMPLAINT:Follow up on CAD s/p CABG HPI:POD # 1 of 3 Vessels CAB s/p extubation, intraoperative Atrial fibrillation onAmiodarone drip doing well, on supplemental oxygen. PATIENT NARRATIVE:Denied chest pain, shortness of breath or palpitations. -- OBJECTIVE -- VITALS (08/13 15:27 - 08/14 15:27):Temperature F: 99.9Temperature C: 37.5 (37.5 - 38.2)Temperature source: CorePulse Rate 78 (59 - 84)Respiratory rate: 22 (0 - 38)Blood pressure: 125/63 (68/48 - 156/96)Blood pressure source: Arterial I/Os (08/13 07:00 - 08/14 07:00):Net 358.50Intake 2,626.50Output 2,268 -EXAM- GENERAL: Well developed, well nourished, in no apparent distress. sedated intubated.HEAD: Normocephalic, atraumatic. NOSE: No deformity, no discharge, no inflammation, no lesions. Nasal cannula in place.MOUTH: Oropharynx without deformities or lesions, normal mucosa.ETT in place.NECK: No masses, no thyromegaly, no abnormal cervical nodes, trachea midline.CHEST: Grossly normal appearance. Midline incision intact.LUNGS: Clear bilaterally with normal respiratory effort.HEART: Regular rate and rhythm, normal S1, S2, no murmurs, no rubs, no gallops, no clicks.ABDOMEN: Soft, non-tender, no organomegaly, no masses noted.MUSCULOSKELETAL: No deformity, no scoliosis noted of thoracic or lumbar spine, joint ROM grossly normal, normal gait and station.EXTREMITIES: No clubbing, no cyanosis, no edema.NEUROLOGICAL: No focal deficits, cranial nerves II-XII grossly intact, normal sensation, normal reflexes, normal coordination, normal muscle strength, normal tone. -- DATA -- MEDICATIONS POTASSIUM CHLORIDE 20 MEQ IV ASDIR (PRN)MAG HYDROX/AL HYDROX/SIMETH 30 ML PO Q6H PRNtraMADol HCL 50 MG PO BID (PRN)EPINEPHrine HCL/D5W 4 MG IV ASDIRpolyethylene glycoL 3350 1 PKT PO DAILYMAGNESIUM HYDROXIDE 30 ML PO ASDIR PRNDOCUSATE SODIUM 200 MG PO DAILYMUPIROCIN 1 APPLIC NASAL BIDASPIRIN 81 MG PO DAILYbisacodyL 10 MG RECTAL ASDIR PRNGLUCAGON 1 MG IM ASDIR PRNLACTULOSE 30 ML PO ASDIR PRNCYANOCOBALAMIN 500 MCG PO DAILYMAGNESIUM 1 GM IV ASDIR PRNNOREPINEPHRINE BITARTRATE 4 MG IV TITRATEcloNIDine HCL 0.1 MG PO Q8H PRNNITROGLYCERIN 0.4 MG SL Q5M PRNONDANSETRON HCL/PF 4 MG IV Q6H PRNLACTULOSE 30 ML PO ASDIR PRNKETOTIFEN FUMARATE 1 DROP EACH EYE BID PRNCALCIUM GLUC IN NACL, ISO-OSM 2 GM IV ASDIR PRNACETAMINOPHEN 650 MG RECTAL Q4H PRNACETAMINOPHEN 650 MG PO Q4H PRNAMIODARONE HCL/D5W 450 MG IV ASDIRSODIUM BICARBONATE 8.4% 50 MEQ IV .ONCE PRNAMIODARONE HCL 200 MG PO BIDDEXTROSE 50%-WATER 25 ML IV ASDIR PRNtraMADol HCL 50 MG PO [id number] TARTRATE 5 MG IV Q6H PRNACETAMINOPHEN 650 MG PO [id number] CHLORIDE 10 mL 10 ML IV ASDIRFERROUS SULFATE 325 MG PO DAILYATORVASTATIN CALCIUM 40 MG PO BEDTIME LABS BASIC METABOLIC PANEL (08/14/23 13:28)SODIUM 145POTASSIUM 3.9CHLORIDE 109H HCARBON DIOXIDE 29GLUCOSE 117H HBLOOD UREA NITROGEN 24H HGLOMERULAR FILTRATION RATE >=60 max estimateCREATININE 1.10CALCIUM 8.6 L PHOS (08/14/23 13:28)PHOSPHOROUS 4.2 MAG (08/14/23 13:28)MAGNESIUM 2.1 MAG (08/14/23 03:15)MAGNESIUM 2.0 PROTHROMBIN TIME (08/14/23 03:15)PROTHROMBIN TIME PATIENT 13.9 HINTERNATIONAL NORMAL RATIO 1.25 H PTT (08/14/23 03:15)THROMBOPLASTIN TIME PARTIAL 26.2 BASIC METABOLIC PANEL (08/14/23 03:15)SODIUM 147H HPOTASSIUM 4.2CHLORIDE 110H HCARBON DIOXIDE 28GLUCOSE 136H HBLOOD UREA NITROGEN 24H HGLOMERULAR FILTRATION RATE 58 LCREATININE 1.20CALCIUM 9.1 LIVER FUNCTION PANEL (08/14/23 03:15)TOTAL PROTEIN 5.7ALBUMIN 3.5BILIRUBIN TOTAL 4.8 HBILIRUBIN DIRECT 0.5 HSGOT/AST 45 HSGPT/ALT 19ALKALINE PHOSPHATASE 49.0 FIB (08/14/23 03:15)FIBRINOGEN 396 LACTIC ACID (08/14/23 03:14)LACTIC ACID 2.70 *H CBC W/AUTO DIFF (08/14/23 03:14)WHITE BLOOD CELL 8.0RED BLOOD CELL 3.36 LHEMOGLOBIN 10.1D L D LHEMATOCRIT 29.9L LMEAN CELL VOLUME 89.0 D MEAN CELL HGB 30.1MEAN CELL HGB CONCENTRATION 33.8RED CELL DISTRIBUTION WIDTH 23.9 HPLATELET COUNT 144L LMEAN PLATELET VOLUME 10.1NEUTROPHIL % 84.2 HLYMPHOCYTE % 3.4 LMONOCYTE % 12.0 HEOSINOPHIL % 0.0BASOPHIL % 0.1NEUTROPHIL # 6.71LYMPHOCYTE # 0.27 LMONOCYTE # 0.96 HEOSINOPHIL # 0.00BASOPHIL # 0.01 PHOS (08/14/23 03:06)PHOSPHOROUS 4.3 BLOOD GAS W/ELECTROLYTES (08/14/23 01:38)ARTERIAL BLOOD GAS PH 7.48 HARTERIAL BLOOD GAS PCO2 33.4 LARTERIAL BLOOD GAS PO2 74.3 LBICARBONATE TOTAL HCO3 24.0BASE EXCESS 0.8ABG O2 SATURATION 95.2ARTERIAL FIO2 32.0ABG VENT MODE NASAL CANNULAALLENS TEST MDSODIUM (POC) 145POTASSIUM (POC) 4.42CHLORIDE (ARTERIAL) 107GLUCOSE 124 HIONIZED CALCIUM 1.21POC LACTIC ACID 2.81 HTOTAL HGB 10.9 D LOXYHEMOGLOBIN 94.1CARBOXYHEMOGLOBIN 0.9METHEMOGLOBIN <0.8HHb 4.7TCO2 ARTERIAL 25.1 BLOOD GAS W/ELECTROLYTES (08/13/23 23:37)ARTERIAL BLOOD GAS PH 7.47 HARTERIAL BLOOD GAS PCO2 35.8ARTERIAL BLOOD GAS PO2 120.7 HBICARBONATE TOTAL HCO3 25.4 HBASE EXCESS 1.7ABG O2 SATURATION 98.1ARTERIAL FIO2 40.0ABG VENT MODE VentilatorALLENS TEST NOT APPLICABLESODIUM (POC) 146POTASSIUM (POC) 4.25CHLORIDE (ARTERIAL) 109 HGLUCOSE 121 HIONIZED CALCIUM 1.22POC LACTIC ACID 3.12 HTOTAL HGB 9.6 D LOXYHEMOGLOBIN 97.4 CARBOXYHEMOGLOBIN 0.4METHEMOGLOBIN <0.8HHb 1.9TCO2 ARTERIAL 26.5 BLOOD GAS W/ELECTROLYTES (08/13/23 21:05)ARTERIAL BLOOD GAS PH 7.44ARTERIAL BLOOD GAS PCO2 35.7ARTERIAL BLOOD GAS PO2 198.8 HBICARBONATE TOTAL HCO3 23.8BASE EXCESS -0.2ABG O2 SATURATION 99.0ARTERIAL FIO2 60.0ABG VENT MODE VentilatorALLENS TEST NOT APPLICABLESODIUM (POC) 146POTASSIUM (POC) 4.11CHLORIDE (ARTERIAL) 108GLUCOSE 114 HIONIZED CALCIUM 1.22POC LACTIC ACID 4.81 HTOTAL HGB 9.0 D LOXYHEMOGLOBIN 97.9CARBOXYHEMOGLOBIN 0.8METHEMOGLOBIN <0.8HHb 1.0TCO2 ARTERIAL 24.9 PHOS (08/13/23 21:00)PHOSPHOROUS 3.8 MAG (08/13/23 21:00)MAGNESIUM 2.1 BASIC METABOLIC PANEL (08/13/23 21:00)SODIUM 148H HPOTASSIUM 4.2CHLORIDE 110H HCARBON DIOXIDE 26GLUCOSE 124H HBLOOD UREA NITROGEN 22GLOMERULAR FILTRATION RATE >=60 max estimateCREATININE 1.10CALCIUM 9.7 CBC W/AUTO DIFF (08/13/23 21:00)WHITE BLOOD CELL 7.6RED BLOOD CELL 2.62 LHEMOGLOBIN 8.4L LHEMATOCRIT 25.2L LMEAN CELL VOLUME 96.2 HMEAN CELL HGB 32.1 HMEAN CELL HGB CONCENTRATION 33.3RED CELL DISTRIBUTION WIDTH 18.6 HPLATELET COUNT 144L LMEAN PLATELET VOLUME 10.0NEUTROPHIL % 84.6 HLYMPHOCYTE % 2.4 LMONOCYTE % 12.6 HEOSINOPHIL % 0.0 BASOPHIL % 0.1NEUTROPHIL # 6.43LYMPHOCYTE # 0.18 LMONOCYTE # 0.96 HEOSINOPHIL # 0.00BASOPHIL # 0.01 LACTIC ACID (08/13/23 21:00)LACTIC ACID 5.00 *H PTT (08/13/23 21:00)THROMBOPLASTIN TIME PARTIAL 28.2 FIB (08/13/23 21:00)FIBRINOGEN 317 PROTHROMBIN TIME (08/13/23 21:00)PROTHROMBIN TIME PATIENT 12.7INTERNATIONAL NORMAL RATIO 1.14 H BLOOD GAS W/ELECTROLYTES (08/13/23 17:51)ARTERIAL BLOOD GAS PH 7.35ARTERIAL BLOOD GAS PCO2 37.0ARTERIAL BLOOD GAS PO2 177.6 HBICARBONATE TOTAL HCO3 19.7 LBASE EXCESS -5.4 LABG O2 SATURATION 98.9ARTERIAL FIO2 60.0ABG VENT MODE VENTALLENS TEST NOT APPLICABLESODIUM (POC) 144POTASSIUM (POC) 3.97CHLORIDE (ARTERIAL) 108GLUCOSE 151 HIONIZED CALCIUM 1.10 LPOC LACTIC ACID 6.03 HTOTAL HGB 11.0 D LOXYHEMOGLOBIN 98.0CARBOXYHEMOGLOBIN 0.6METHEMOGLOBIN <0.8HHb 1.1TCO2 ARTERIAL 20.9 L BLOOD GAS W/ELECTROLYTES (08/13/23 16:09)ARTERIAL BLOOD GAS PH 7.35ARTERIAL BLOOD GAS PCO2 36.6ARTERIAL BLOOD GAS PO2 461.4 HBICARBONATE TOTAL HCO3 19.5 LBASE EXCESS -5.6 LABG O2 SATURATION 99.4ARTERIAL FIO2 100.0ABG VENT MODE VentilatorALLENS TEST NOT APPLICABLESODIUM (POC) 144POTASSIUM (POC) 3.98CHLORIDE (ARTERIAL) 110 HGLUCOSE 163 HIONIZED CALCIUM 1.23POC LACTIC ACID 4.56 HTOTAL HGB 9.7 L OXYHEMOGLOBIN 99.3 HCARBOXYHEMOGLOBIN 0.0METHEMOGLOBIN <0.8HHb 0.6TCO2 ARTERIAL 20.6 L CBC W/AUTO DIFF (08/13/23 15:59)WHITE BLOOD CELL 14.5H HRED BLOOD CELL 2.67 LHEMOGLOBIN 9.0D L D LHEMATOCRIT 26.5L LMEAN CELL VOLUME 99.3 HMEAN CELL HGB 33.7 HMEAN CELL HGB CONCENTRATION 34.0RED CELL DISTRIBUTION WIDTH 17.5 HPLATELET COUNT 215MEAN PLATELET VOLUME 10.0NEUTROPHIL % 81.9 HLYMPHOCYTE % 7.4 LMONOCYTE % 9.8 HEOSINOPHIL % 0.2BASOPHIL % 0.1NEUTROPHIL # 11.87 HLYMPHOCYTE # 1.08MONOCYTE # 1.42 HEOSINOPHIL # 0.03BASOPHIL # 0.02 LACTIC ACID (08/13/23 15:59)LACTIC ACID 4.80 *H BASIC METABOLIC PANEL (08/13/23 15:59)SODIUM 148H HPOTASSIUM 4.1CHLORIDE 113H HCARBON DIOXIDE 22GLUCOSE 175H HBLOOD UREA NITROGEN 19GLOMERULAR FILTRATION RATE >=60 max estimateCREATININE 0.90CALCIUM 9.2 MAG (08/13/23 15:59)MAGNESIUM 2.2 PROTHROMBIN TIME (08/13/23 15:59)PROTHROMBIN TIME PATIENT 12.6INTERNATIONAL NORMAL RATIO 1.13 D H PHOS (08/13/23 15:59)PHOSPHOROUS 4.7 D PTT (08/13/23 15:59)THROMBOPLASTIN TIME PARTIAL 26.6 Signed in PatientKeeper by TRINA MARQUEZ MD CF1 on 08/15/23 at 06:48 Cosigned by NELIA HSU MD on 08/15/23 at 13:49 at 1349 at 1349ATTENTION EDITS and/or ADDENDA must be made in Patient Keeper for this note. Edits and ammendments created in [facility] are not visible in Patient Keeper or the legal medical record (HPF). RPT #: [id number] OF REPORTPRProgress njwa2491-07-98C03:27:00P.IH-[id number] ailable for patient [id number]-42D05:50:48 [facility] 2023-08-14 10:33:00 [id number]+lp ey/3iOdWANc+YEEw/B1qxUBPAytJP EY6xz8mSxFmbrusOz1+Rd9XtVNf7014-04-29E28:33:00 [facility] ([facility]) Intensive Care Progress Note REPORT #: [id number] REPORT STATUS: Signed DATE: 08/14/23 TIME: 1033 PATIENT: CHARLIE HART UNIT #: [id number] #: [id number] ROOM #: P.0311 BED: 1 : 35 AGE: 88 SEX: M ATTEND: Tony Gautam MD [facility] AUTHOR: Yoav Hernandez MD ATTENTION EDITS and/or ADDENDA must be made in Patient Keeper for this note. Edits and ammendments created in [facility] are not visible in Patient Keeper or the legal medical record (HPF). -- ASSESSMENT AND PLAN -- GENERAL ASSESSMENT:Assessment and PlanMr. Hart is an 88 year-old male with past medical history of hypertension,hyperlipidemia, coronary artery disease, carotid disease, presence of permanentpacemaker (2021), pulmonary hypertension, and ischemic cardiomyopathy withprevious ejection fraction 40-50% admitted today post-op CABG x [address] Powell.Intra-op, patient went into AFib, and blood pressure dropped, so wasre-explored, and eventually cardioverted. Patient came out on 0.03mcg ofEpinephrine. NeuroICU Analgesia/Sedation- Tramadol, Tylenol for pain CVCAD s/p CABG x 3Cardiogenic ShockVasoplegic ShockHTNPPMPAH- off Inotropes/Vasopressors- briefly on Nicardipine, but off now- PPM interrogated, elevated thresholds, but working well- on Amiodarone gtt at 0.5- following chest tube outputs Resp- on 3L NC, incentive spirometry GI- advance diet as tolerated RenalHyperantremia- Will follow BUN/Cr/UOP Heme- CBC, Coags stable since morning ID - no signs of infection- post-op Abx continued Endo- monitor BG- will cover with SS Insulin Prophylaxis- SCD- PPI/H2 Advanced Care Planning:Code: FullMPOA , daughterAdvanced Care Plan: Yes Medications reviewed with the clinical pharmacist Yoav Hernandez, [facility] [place] -- SUBJECTIVE -- PATIENT NARRATIVE:Overnight Events: Extubated and doing well 10 System, 2 point ROS negative except for above. -- OBJECTIVE -- VITALS (08/13 10:33 - 08/14 10:33):Temperature F: 99.9Temperature C: 37.7 (37.6 - 38.2)Temperature source: [place] probePulse Rate 79 (59 - 84)Respiratory rate: 22 (0 - 38)Blood pressure: 83/73 (68/48 - 154/88)Blood pressure source: Arterial I/Os (08/13 07:00 - 08/14 07:00):Net 358.50Intake 2,626.50Output 2,268 -- DATA -- MEDICATIONS MAGNESIUM HYDROXIDE 30 ML PO ASDIR PRNbisacodyL 10 MG RECTAL ASDIR PRNCYANOCOBALAMIN 500 MCG PO DAILYMAGNESIUM 1 GM IV ASDIR PRNNOREPINEPHRINE BITARTRATE 4 MG IV TITRATEcloNIDine HCL 0.1 MG PO Q8H PRNNITROGLYCERIN 0.4 MG SL Q5M PRNCALCIUM GLUC IN NACL, ISO-OSM 2 GM IV ASDIR PRNACETAMINOPHEN 650 MG PO Q4H PRNSODIUM BICARBONATE 8.4% 50 MEQ IV .ONCE PRNSODIUM CHLORIDE 10 mL 10 ML IV ASDIRFERROUS SULFATE 325 MG PO DAILY ATORVASTATIN CALCIUM 40 MG PO BEDTIMEfentaNYL citrate 25 MCG IV Q3H PRNPOTASSIUM CHLORIDE 20 MEQ IV ASDIR (PRN)MAG HYDROX/AL HYDROX/SIMETH 30 ML PO Q6H PRNtraMADol HCL 50 MG PO BID (PRN)EPINEPHrine HCL/D5W 4 MG IV ASDIRniCARdipine HCL with/in SODIUM CHLORIDE 100 mL BAG 25 MG IV TITRATEpolyethylene glycoL 3350 1 PKT PO DAILYDOCUSATE SODIUM 200 MG PO DAILYMUPIROCIN 1 APPLIC NASAL BIDASPIRIN 81 MG PO DAILYGLUCAGON 1 MG IM ASDIR PRNLACTULOSE 30 ML PO ASDIR PRNONDANSETRON HCL/PF 4 MG IV Q6H PRNLACTULOSE 30 ML PO ASDIR PRNKETOTIFEN FUMARATE 1 DROP EACH EYE BID PRNACETAMINOPHEN 650 MG RECTAL Q4H PRNAMIODARONE HCL/D5W 450 MG IV ASDIRDEXTROSE 50%-WATER 25 ML IV ASDIR PRNtraMADol HCL 50 MG PO A7MEUSSWJWYOYU TARTRATE 5 MG IV Q6H PRNACETAMINOPHEN 650 MG PO Q6HR LABS MAG (08/14/23 03:15)MAGNESIUM 2.0 PROTHROMBIN TIME (08/14/23 03:15)PROTHROMBIN TIME PATIENT 13.9 HINTERNATIONAL NORMAL RATIO 1.25 H PTT (08/14/23 03:15)THROMBOPLASTIN TIME PARTIAL 26.2 BASIC METABOLIC PANEL (08/14/23 03:15)SODIUM 147H HPOTASSIUM 4.2CHLORIDE 110H HCARBON DIOXIDE 28GLUCOSE 136H HBLOOD UREA NITROGEN 24H HGLOMERULAR FILTRATION RATE 58 LCREATININE 1.20CALCIUM 9.1 LIVER FUNCTION PANEL (08/14/23 03:15)TOTAL PROTEIN 5.7ALBUMIN 3.5BILIRUBIN TOTAL 4.8 HBILIRUBIN DIRECT 0.5 HSGOT/AST 45 HSGPT/ALT 19ALKALINE PHOSPHATASE 49.0 FIB (08/14/23 03:15)FIBRINOGEN 396 LACTIC ACID (08/14/23 03:14)LACTIC ACID 2.70 *H CBC W/AUTO DIFF (08/14/23 03:14)WHITE BLOOD CELL 8.0RED BLOOD CELL 3.36 LHEMOGLOBIN 10.1D L D LHEMATOCRIT 29.9L LMEAN CELL VOLUME 89.0 DMEAN CELL HGB 30.1MEAN CELL HGB CONCENTRATION 33.8RED CELL DISTRIBUTION WIDTH 23.9 HPLATELET COUNT 144L LMEAN PLATELET VOLUME 10.1NEUTROPHIL % 84.2 HLYMPHOCYTE % 3.4 LMONOCYTE % 12.0 HEOSINOPHIL % 0.0BASOPHIL % 0.1NEUTROPHIL # 6.71LYMPHOCYTE # 0.27 LMONOCYTE # 0.96 HEOSINOPHIL # 0.00BASOPHIL # 0.01 PHOS (08/14/23 03:06)PHOSPHOROUS 4.3 BLOOD GAS W/ELECTROLYTES (08/14/23 01:38)ARTERIAL BLOOD GAS PH 7.48 HARTERIAL BLOOD GAS PCO2 33.4 LARTERIAL BLOOD GAS PO2 74.3 LBICARBONATE TOTAL HCO3 24.0BASE EXCESS 0.8ABG O2 SATURATION 95.2ARTERIAL FIO2 32.0ABG VENT MODE NASAL CANNULAALLENS TEST MDSODIUM (POC) 145POTASSIUM (POC) 4.42CHLORIDE (ARTERIAL) 107GLUCOSE 124 HIONIZED CALCIUM 1.21POC LACTIC ACID 2.81 HTOTAL HGB 10.9 D LOXYHEMOGLOBIN 94.1CARBOXYHEMOGLOBIN 0.9METHEMOGLOBIN <0.8HHb 4.7TCO2 ARTERIAL 25.1 BLOOD GAS W/ELECTROLYTES (08/13/23 23:37)ARTERIAL BLOOD GAS PH 7.47 HARTERIAL BLOOD GAS PCO2 35.8ARTERIAL BLOOD GAS PO2 120.7 HBICARBONATE TOTAL HCO3 25.4 HBASE EXCESS 1.7ABG O2 SATURATION 98.1ARTERIAL FIO2 40.0ABG VENT MODE VentilatorALLENS TEST NOT APPLICABLESODIUM (POC) 146 POTASSIUM (POC) 4.25CHLORIDE (ARTERIAL) 109 HGLUCOSE 121 HIONIZED CALCIUM 1.22POC LACTIC ACID 3.12 HTOTAL HGB 9.6 D LOXYHEMOGLOBIN 97.4CARBOXYHEMOGLOBIN 0.4METHEMOGLOBIN <0.8HHb 1.9TCO2 ARTERIAL 26.5 BLOOD GAS W/ELECTROLYTES (08/13/23 21:05)ARTERIAL BLOOD GAS PH 7.44ARTERIAL BLOOD GAS PCO2 35.7ARTERIAL BLOOD GAS PO2 198.8 HBICARBONATE TOTAL HCO3 23.8BASE EXCESS -0.2ABG O2 SATURATION 99.0ARTERIAL FIO2 60.0ABG VENT MODE VentilatorALLENS TEST NOT APPLICABLESODIUM (POC) 146POTASSIUM (POC) 4.11CHLORIDE (ARTERIAL) 108GLUCOSE 114 HIONIZED CALCIUM 1.22POC LACTIC ACID 4.81 HTOTAL HGB 9.0 D LOXYHEMOGLOBIN 97.9CARBOXYHEMOGLOBIN 0.8METHEMOGLOBIN <0.8HHb 1.0TCO2 ARTERIAL 24.9 PHOS (08/13/23 21:00)PHOSPHOROUS 3.8 MAG (08/13/23 21:00)MAGNESIUM 2.1 BASIC METABOLIC PANEL (08/13/23 21:00)SODIUM 148H HPOTASSIUM 4.2CHLORIDE 110H HCARBON DIOXIDE 26GLUCOSE 124H HBLOOD UREA NITROGEN 22GLOMERULAR FILTRATION RATE >=60 max estimateCREATININE 1.10CALCIUM 9.7 CBC W/AUTO DIFF (08/13/23 21:00)WHITE BLOOD CELL 7.6RED BLOOD CELL 2.62 LHEMOGLOBIN 8.4L LHEMATOCRIT 25.2L LMEAN CELL VOLUME 96.2 HMEAN CELL HGB 32.1 HMEAN CELL HGB CONCENTRATION 33.3 RED CELL DISTRIBUTION WIDTH 18.6 HPLATELET COUNT 144L LMEAN PLATELET VOLUME 10.0NEUTROPHIL % 84.6 HLYMPHOCYTE % 2.4 LMONOCYTE % 12.6 HEOSINOPHIL % 0.0BASOPHIL % 0.1NEUTROPHIL # 6.43LYMPHOCYTE # 0.18 LMONOCYTE # 0.96 HEOSINOPHIL # 0.00BASOPHIL # 0.01 LACTIC ACID (08/13/23 21:00)LACTIC ACID 5.00 *H PTT (08/13/23 21:00)THROMBOPLASTIN TIME PARTIAL 28.2 FIB (08/13/23 21:00)FIBRINOGEN 317 PROTHROMBIN TIME (08/13/23 21:00)PROTHROMBIN TIME PATIENT 12.7INTERNATIONAL NORMAL RATIO 1.14 H BLOOD GAS W/ELECTROLYTES (08/13/23 17:51)ARTERIAL BLOOD GAS PH 7.35ARTERIAL BLOOD GAS PCO2 37.0ARTERIAL BLOOD GAS PO2 177.6 HBICARBONATE TOTAL HCO3 19.7 LBASE EXCESS -5.4 LABG O2 SATURATION 98.9ARTERIAL FIO2 60.0ABG VENT MODE VENTALLENS TEST NOT APPLICABLESODIUM (POC) 144POTASSIUM (POC) 3.97CHLORIDE (ARTERIAL) 108GLUCOSE 151 HIONIZED CALCIUM 1.10 LPOC LACTIC ACID 6.03 HTOTAL HGB 11.0 D LOXYHEMOGLOBIN 98.0CARBOXYHEMOGLOBIN 0.6METHEMOGLOBIN <0.8HHb 1.1TCO2 ARTERIAL 20.9 L BLOOD GAS W/ELECTROLYTES (08/13/23 16:09)ARTERIAL BLOOD GAS PH 7.35ARTERIAL BLOOD GAS PCO2 36.6ARTERIAL BLOOD GAS PO2 461.4 HBICARBONATE TOTAL HCO3 19.5 LBASE EXCESS -5.6 LABG O2 SATURATION 99.4ARTERIAL FIO2 100.0ABG VENT MODE VentilatorALLENS TEST NOT APPLICABLE SODIUM (POC) 144POTASSIUM (POC) 3.98CHLORIDE (ARTERIAL) 110 HGLUCOSE 163 HIONIZED CALCIUM 1.23POC LACTIC ACID 4.56 HTOTAL HGB 9.7 LOXYHEMOGLOBIN 99.3 HCARBOXYHEMOGLOBIN 0.0METHEMOGLOBIN <0.8HHb 0.6TCO2 ARTERIAL 20.6 L CBC W/AUTO DIFF (08/13/23 15:59)WHITE BLOOD CELL 14.5H HRED BLOOD CELL 2.67 LHEMOGLOBIN 9.0D L D LHEMATOCRIT 26.5L LMEAN CELL VOLUME 99.3 HMEAN CELL HGB 33.7 HMEAN CELL HGB CONCENTRATION 34.0RED CELL DISTRIBUTION WIDTH 17.5 HPLATELET COUNT 215MEAN PLATELET VOLUME 10.0NEUTROPHIL % 81.9 HLYMPHOCYTE % 7.4 LMONOCYTE % 9.8 HEOSINOPHIL % 0.2BASOPHIL % 0.1NEUTROPHIL # 11.87 HLYMPHOCYTE # 1.08MONOCYTE # 1.42 HEOSINOPHIL # 0.03BASOPHIL # 0.02 LACTIC ACID (08/13/23 15:59)LACTIC ACID 4.80 *H BASIC METABOLIC PANEL (08/13/23 15:59)SODIUM 148H HPOTASSIUM 4.1CHLORIDE 113H HCARBON DIOXIDE 22GLUCOSE 175H HBLOOD UREA NITROGEN 19GLOMERULAR FILTRATION RATE >=60 max estimateCREATININE 0.90CALCIUM 9.2 MAG (08/13/23 15:59)MAGNESIUM 2.2 PROTHROMBIN TIME (08/13/23 15:59)PROTHROMBIN TIME PATIENT 12.6INTERNATIONAL NORMAL RATIO 1.13 D H PHOS (08/13/23 15:59)PHOSPHOROUS 4.7 D PTT (08/13/23 15:59) THROMBOPLASTIN TIME PARTIAL 26.6 ACT (08/13/23 15:07)COAGULATION TIME ACTIVATED 136 FIB (08/13/23 15:06)FIBRINOGEN 159 L PROTHROMBIN TIME (08/13/23 15:06)PROTHROMBIN TIME PATIENT 20.1 HINTERNATIONAL NORMAL RATIO 1.83 D H CBC W/AUTO DIFF (08/13/23 15:06)WHITE BLOOD CELL 16.3H HRED BLOOD CELL 3.42 LHEMOGLOBIN 11.6L LHEMATOCRIT 34.4L LMEAN CELL VOLUME 100.6 D HMEAN CELL HGB 33.9 HMEAN CELL HGB CONCENTRATION 33.7RED CELL DISTRIBUTION WIDTH 17.1 HPLATELET COUNT 112L LMEAN PLATELET VOLUME 9.4NEUTROPHIL % 78.2 HLYMPHOCYTE % 12.6 LMONOCYTE % 7.3EOSINOPHIL % 0.3BASOPHIL % 0.2NEUTROPHIL # 12.76 HLYMPHOCYTE # 2.05MONOCYTE # 1.19 HEOSINOPHIL # 0.05BASOPHIL # 0.04 PTT (08/13/23 15:06)THROMBOPLASTIN TIME PARTIAL 32.5 D ACT (08/13/23 13:35)COAGULATION TIME ACTIVATED 131 ACT (08/13/23 12:31)COAGULATION TIME ACTIVATED 428 H ACT (08/13/23 12:01)COAGULATION TIME ACTIVATED 515 H ACT (08/13/23 11:29)COAGULATION TIME ACTIVATED 466 H ACT (08/13/23 10:53)COAGULATION TIME ACTIVATED 450 H -- ATTESTATION -- TIME SPENT ON PATIENT CARE: - Critical Care: time spent apart from any procedure 40 minutes CARE ACTIVITIES / CARE COORDINATION: - I have reviewed the history and repeated the dee elements - I have seen and examined this patient - I have reviewed the progress in the clinical course since the lastexamination - I have discussed the patient's condition with other members of the care team Signed in PatientKeeper by Yoav Hernandez MD on 08/14/23 at 10:35 at 1035ATTENTION EDITS and/or ADDENDA must be made in Patient Keeper for this note. Edits and ammendments created in [employer] are not visible in Patient Keeper or the legal medical record (HPF). RPT #: [id number] OF REPORTPRProgress [id number]:00P.[id number] ailable for patient [id number]:36:59 [facility] 2023-08-14 08:55:00 [id number] [id number]/noutl9EXMoKgav [id number]:55:00 [facility] ([facility]) Progress Note REPORT #: [id number] REPORT STATUS: Signed DATE: 08/14/23 TIME: 854 PATIENT: CHARLIE HART UNIT #: [id number] #: [id number] ROOM #: [facility] BED: 1 : 35 AGE: 88 SEX: M ATTEND: Tony Gautam MD ADM AUTHOR: Nile Fuentes MD ATTENTION EDITS and/or ADDENDA must be made in Patient Keeper for this note. Edits and ammendments created in [employer] are not visible in Patient Keeper or the legal medical record (HPF). -- ASSESSMENT AND PLAN -- PROBLEMS: 1: Non-ST elevation (NSTEMI) myocardial infarctionA/P: This is a 88 year old male with Recent non-ST segment elevation myocardialinfarction- Underwent CABG x 3 on 08/13/23. Administered 1000 units Kcentra and 2000 gramsFibryga.- Monitor patient for any bleeding episodes.- Monitor chest tube output/color.- Continue ferrous sulfate 325 mg PO daily.- Monitor urine output volume/color.- Check CBC, PTT, INR, and Fibrinogen daily.- Follow up with Cardiac surgery recs.- Encourage rehab/ambulation as tolerated. Follow up with PT/OT recs. -- SUBJECTIVE -- HPI:On 3L oxygen support. Net positive fluid balance over past 24 hours. Chesttubes x 3. [place] catheter in place. Platelets and hemoglobin at target. -REVIEW OF SYSTEMS- GENERAL: Negative for fever, malaise, fatigue.EYES: Negative for blurry vision. No diplopia.EARS/NOSE/THROAT: Negative for sore throat. No otalgia. No rhinorrhea.RESPIRATORY: Negative for dyspnea or wheeze. No cough.CARDIOVASCULAR: Negative for chest pain or palpitations. No extremity swelling.GASTROINTESTINAL: Negative for abdominal pain or nausea. No emesis. No diarrhea.NEUROLOGICAL: Negative for headache. No vertigo. Denies paresthesias.PSYCHIATRIC: Negative for specific complaints. -- OBJECTIVE -- VITALS (08/13 08:55 - 08/14 08:55):Temperature C: 37.7 (37.6 - 38.2)Temperature source: CorePulse Rate 79 (59 - 84) Respiratory rate: 22 (0 - 38)Blood pressure: 83/73 (68/48 - 154/88)Blood pressure source: Arterial I/Os (08/13 07:00 - 08/14 07:00):Net 358.50Intake 2,626.50Output 2,268 -EXAM- GENERAL: Well developed, well nourished, in no apparent distress.HEAD: Normocephalic, atraumatic.EYES: PERRL, EOM intact, conjunctiva and sclera clear, without nystagmus, lids normal.NOSE: No deformity, no discharge, no inflammation, no lesions.MOUTH: Oropharynx without deformities or lesions, normal mucosa..NECK: No masses, no thyromegaly, no abnormal cervical nodes, trachea midline.CHEST: Round chest, midline incision intact, chest tubes in placeLUNGS: Clear bilaterally with normal respiratory effort.HEART: Regular rate and rhythm, normal S1, S2, no murmurs, no rubs, no gallops, no clicks.ABDOMEN: Soft, non-tender, no organomegaly, no masses noted.MUSCULOSKELETAL: No deformity, no scoliosis noted of thoracic or lumbar spine, joint ROM grossly normal.EXTREMITIES: No clubbing, no cyanosis, no edema.NEUROLOGICAL: SedatedPULSES: Pulses normal in all extremities.SKIN: Intact without significant lesions, or rashes.LYMPH NODES: No significant cervical node adenopathy. No significant axillary node adenopathy. No significant inguinal node adenopathy. -- DATA -- MEDICATIONS MAGNESIUM HYDROXIDE 30 ML PO ASDIR PRNbisacodyL 10 MG RECTAL ASDIR PRNCYANOCOBALAMIN 500 MCG PO DAILYMAGNESIUM 1 GM IV ASDIR PRNNOREPINEPHRINE BITARTRATE 4 MG IV TITRATEcloNIDine HCL 0.1 MG PO Q8H PRNNITROGLYCERIN 0.4 MG SL Q5M PRNCALCIUM GLUC IN NACL, ISO-OSM 2 GM IV ASDIR PRNACETAMINOPHEN 650 MG PO Q4H PRNSODIUM BICARBONATE 8.4% 50 MEQ IV .ONCE PRNSODIUM CHLORIDE 10 mL 10 ML IV ASDIRFERROUS SULFATE 325 MG PO DAILYATORVASTATIN CALCIUM 40 MG PO BEDTIMEfentaNYL citrate 25 MCG IV Q3H PRNPOTASSIUM CHLORIDE 20 MEQ IV ASDIR (PRN)MAG HYDROX/AL HYDROX/SIMETH 30 ML PO Q6H PRN traMADol HCL 50 MG PO BID (PRN)EPINEPHrine HCL/D5W 4 MG IV ASDIRniCARdipine HCL with/in SODIUM CHLORIDE 100 mL BAG 25 MG IV TITRATEpolyethylene glycoL 3350 1 PKT PO DAILYDOCUSATE SODIUM 200 MG PO DAILYMUPIROCIN 1 APPLIC NASAL BIDASPIRIN 81 MG PO DAILYGLUCAGON 1 MG IM ASDIR PRNLACTULOSE 30 ML PO ASDIR PRN(DC'd) SENNOSIDES 2 TAB PO ASDIR PRNONDANSETRON HCL/PF 4 MG IV Q6H PRNLACTULOSE 30 ML PO ASDIR PRNKETOTIFEN FUMARATE 1 DROP EACH EYE BID PRNACETAMINOPHEN 650 MG RECTAL Q4H PRNAMIODARONE HCL/D5W 450 MG IV ASDIRDEXTROSE 50%-WATER 25 ML IV ASDIR PRNtraMADol HCL 50 MG PO D0RUMAEWVZMLEK TARTRATE 5 MG IV Q6H PRNACETAMINOPHEN 650 MG PO Q6HR LABS MAG (08/14/23 03:15)MAGNESIUM 2.0 PROTHROMBIN TIME (08/14/23 03:15)PROTHROMBIN TIME PATIENT 13.9 HINTERNATIONAL NORMAL RATIO 1.25 H PTT (08/14/23 03:15)THROMBOPLASTIN TIME PARTIAL 26.2 BASIC METABOLIC PANEL (08/14/23 03:15)SODIUM 147H HPOTASSIUM 4.2CHLORIDE 110H HCARBON DIOXIDE 28GLUCOSE 136H HBLOOD UREA NITROGEN 24H HGLOMERULAR FILTRATION RATE 58 LCREATININE 1.20CALCIUM 9.1 LIVER FUNCTION PANEL (08/14/23 03:15)TOTAL PROTEIN 5.7ALBUMIN 3.5BILIRUBIN TOTAL 4.8 HBILIRUBIN DIRECT 0.5 HSGOT/AST 45 HSGPT/ALT 19ALKALINE PHOSPHATASE 49.0 FIB (08/14/23 03:15)FIBRINOGEN 396 LACTIC ACID (08/14/23 03:14)LACTIC ACID 2.70 *H CBC W/AUTO DIFF (08/14/23 03:14)WHITE BLOOD CELL 8.0 RED BLOOD CELL 3.36 LHEMOGLOBIN 10.1D L D LHEMATOCRIT 29.9L LMEAN CELL VOLUME 89.0 DMEAN CELL HGB 30.1MEAN CELL HGB CONCENTRATION 33.8RED CELL DISTRIBUTION WIDTH 23.9 HPLATELET COUNT 144L LMEAN PLATELET VOLUME 10.1NEUTROPHIL % 84.2 HLYMPHOCYTE % 3.4 LMONOCYTE % 12.0 HEOSINOPHIL % 0.0BASOPHIL % 0.1NEUTROPHIL # 6.71LYMPHOCYTE # 0.27 LMONOCYTE # 0.96 HEOSINOPHIL # 0.00BASOPHIL # 0.01 BLOOD GAS W/ELECTROLYTES (08/14/23 01:38)ARTERIAL BLOOD GAS PH 7.48 HARTERIAL BLOOD GAS PCO2 33.4 LARTERIAL BLOOD GAS PO2 74.3 LBICARBONATE TOTAL HCO3 24.0BASE EXCESS 0.8ABG O2 SATURATION 95.2ARTERIAL FIO2 32.0ABG VENT MODE NASAL CANNULAALLENS TEST MDSODIUM (POC) 145POTASSIUM (POC) 4.42CHLORIDE (ARTERIAL) 107GLUCOSE 124 HIONIZED CALCIUM 1.21POC LACTIC ACID 2.81 HTOTAL HGB 10.9 D LOXYHEMOGLOBIN 94.1CARBOXYHEMOGLOBIN 0.9METHEMOGLOBIN <0.8HHb 4.7TCO2 ARTERIAL 25.1 BLOOD GAS W/ELECTROLYTES (08/13/23 23:37)ARTERIAL BLOOD GAS PH 7.47 HARTERIAL BLOOD GAS PCO2 35.8ARTERIAL BLOOD GAS PO2 120.7 HBICARBONATE TOTAL HCO3 25.4 HBASE EXCESS 1.7ABG O2 SATURATION 98.1ARTERIAL FIO2 40.0ABG VENT MODE VentilatorALLENS TEST NOT APPLICABLESODIUM (POC) 146POTASSIUM (POC) 4.25CHLORIDE (ARTERIAL) 109 HGLUCOSE 121 HIONIZED CALCIUM 1.22POC LACTIC ACID 3.12 HTOTAL HGB 9.6 D L OXYHEMOGLOBIN 97.4CARBOXYHEMOGLOBIN 0.4METHEMOGLOBIN <0.8HHb 1.9TCO2 ARTERIAL 26.5 BLOOD GAS W/ELECTROLYTES (08/13/23 21:05)ARTERIAL BLOOD GAS PH 7.44ARTERIAL BLOOD GAS PCO2 35.7ARTERIAL BLOOD GAS PO2 198.8 HBICARBONATE TOTAL HCO3 23.8BASE EXCESS -0.2ABG O2 SATURATION 99.0ARTERIAL FIO2 60.0ABG VENT MODE VentilatorALLENS TEST NOT APPLICABLESODIUM (POC) 146POTASSIUM (POC) 4.11CHLORIDE (ARTERIAL) 108GLUCOSE 114 HIONIZED CALCIUM 1.22POC LACTIC ACID 4.81 HTOTAL HGB 9.0 D LOXYHEMOGLOBIN 97.9CARBOXYHEMOGLOBIN 0.8METHEMOGLOBIN <0.8HHb 1.0TCO2 ARTERIAL 24.9 PHOS (08/13/23 21:00)PHOSPHOROUS 3.8 MAG (08/13/23 21:00)MAGNESIUM 2.1 BASIC METABOLIC PANEL (08/13/23 21:00)SODIUM 148H HPOTASSIUM 4.2CHLORIDE 110H HCARBON DIOXIDE 26GLUCOSE 124H HBLOOD UREA NITROGEN 22GLOMERULAR FILTRATION RATE >=60 max estimateCREATININE 1.10CALCIUM 9.7 CBC W/AUTO DIFF (08/13/23 21:00)WHITE BLOOD CELL 7.6RED BLOOD CELL 2.62 LHEMOGLOBIN 8.4L LHEMATOCRIT 25.2L LMEAN CELL VOLUME 96.2 HMEAN CELL HGB 32.1 HMEAN CELL HGB CONCENTRATION 33.3RED CELL DISTRIBUTION WIDTH 18.6 HPLATELET COUNT 144L LMEAN PLATELET VOLUME 10.0NEUTROPHIL % 84.6 HLYMPHOCYTE % 2.4 LMONOCYTE % 12.6 H EOSINOPHIL % 0.0BASOPHIL % 0.1NEUTROPHIL # 6.43LYMPHOCYTE # 0.18 LMONOCYTE # 0.96 HEOSINOPHIL # 0.00BASOPHIL # 0.01 LACTIC ACID (08/13/23 21:00)LACTIC ACID 5.00 *H PTT (08/13/23 21:00)THROMBOPLASTIN TIME PARTIAL 28.2 FIB (08/13/23 21:00)FIBRINOGEN 317 PROTHROMBIN TIME (08/13/23 21:00)PROTHROMBIN TIME PATIENT 12.7INTERNATIONAL NORMAL RATIO 1.14 H BLOOD GAS W/ELECTROLYTES (08/13/23 17:51)ARTERIAL BLOOD GAS PH 7.35ARTERIAL BLOOD GAS PCO2 37.0ARTERIAL BLOOD GAS PO2 177.6 HBICARBONATE TOTAL HCO3 19.7 LBASE EXCESS -5.4 LABG O2 SATURATION 98.9ARTERIAL FIO2 60.0ABG VENT MODE VENTALLENS TEST NOT APPLICABLESODIUM (POC) 144POTASSIUM (POC) 3.97CHLORIDE (ARTERIAL) 108GLUCOSE 151 HIONIZED CALCIUM 1.10 LPOC LACTIC ACID 6.03 HTOTAL HGB 11.0 D LOXYHEMOGLOBIN 98.0CARBOXYHEMOGLOBIN 0.6METHEMOGLOBIN <0.8HHb 1.1TCO2 ARTERIAL 20.9 L BLOOD GAS W/ELECTROLYTES (08/13/23 16:09)ARTERIAL BLOOD GAS PH 7.35ARTERIAL BLOOD GAS PCO2 36.6ARTERIAL BLOOD GAS PO2 461.4 HBICARBONATE TOTAL HCO3 19.5 LBASE EXCESS -5.6 LABG O2 SATURATION 99.4ARTERIAL FIO2 100.0ABG VENT MODE VentilatorALLENS TEST NOT APPLICABLESODIUM (POC) 144POTASSIUM (POC) 3.98CHLORIDE (ARTERIAL) 110 HGLUCOSE 163 HIONIZED CALCIUM 1.23POC LACTIC ACID 4.56 H TOTAL HGB 9.7 LOXYHEMOGLOBIN 99.3 HCARBOXYHEMOGLOBIN 0.0METHEMOGLOBIN <0.8HHb 0.6TCO2 ARTERIAL 20.6 L CBC W/AUTO DIFF (08/13/23 15:59)WHITE BLOOD CELL 14.5H HRED BLOOD CELL 2.67 LHEMOGLOBIN 9.0D L D LHEMATOCRIT 26.5L LMEAN CELL VOLUME 99.3 HMEAN CELL HGB 33.7 HMEAN CELL HGB CONCENTRATION 34.0RED CELL DISTRIBUTION WIDTH 17.5 HPLATELET COUNT 215MEAN PLATELET VOLUME 10.0NEUTROPHIL % 81.9 HLYMPHOCYTE % 7.4 LMONOCYTE % 9.8 HEOSINOPHIL % 0.2BASOPHIL % 0.1NEUTROPHIL # 11.87 HLYMPHOCYTE # 1.08MONOCYTE # 1.42 HEOSINOPHIL # 0.03BASOPHIL # 0.02 LACTIC ACID (08/13/23 15:59)LACTIC ACID 4.80 *H BASIC METABOLIC PANEL (08/13/23 15:59)SODIUM 148H HPOTASSIUM 4.1CHLORIDE 113H HCARBON DIOXIDE 22GLUCOSE 175H HBLOOD UREA NITROGEN 19GLOMERULAR FILTRATION RATE >=60 max estimateCREATININE 0.90CALCIUM 9.2 MAG (08/13/23 15:59)MAGNESIUM 2.2 PROTHROMBIN TIME (08/13/23 15:59)PROTHROMBIN TIME PATIENT 12.6INTERNATIONAL NORMAL RATIO 1.13 D H PHOS (08/13/23 15:59)PHOSPHOROUS 4.7 D PTT (08/13/23 15:59)THROMBOPLASTIN TIME PARTIAL 26.6 ACT (08/13/23 15:07)COAGULATION TIME ACTIVATED 136 FIB (08/13/23 15:06) FIBRINOGEN 159 L PROTHROMBIN TIME (08/13/23 15:06)PROTHROMBIN TIME PATIENT 20.1 HINTERNATIONAL NORMAL RATIO 1.83 D H CBC W/AUTO DIFF (08/13/23 15:06)WHITE BLOOD CELL 16.3H HRED BLOOD CELL 3.42 LHEMOGLOBIN 11.6L LHEMATOCRIT 34.4L LMEAN CELL VOLUME 100.6 D HMEAN CELL HGB 33.9 HMEAN CELL HGB CONCENTRATION 33.7RED CELL DISTRIBUTION WIDTH 17.1 HPLATELET COUNT 112L LMEAN PLATELET VOLUME 9.4NEUTROPHIL % 78.2 HLYMPHOCYTE % 12.6 LMONOCYTE % 7.3EOSINOPHIL % 0.3BASOPHIL % 0.2NEUTROPHIL # 12.76 HLYMPHOCYTE # 2.05MONOCYTE # 1.19 HEOSINOPHIL # 0.05BASOPHIL # 0.04 PTT (08/13/23 15:06)THROMBOPLASTIN TIME PARTIAL 32.5 D ACT (08/13/23 13:35)COAGULATION TIME ACTIVATED 131 ACT (08/13/23 12:31)COAGULATION TIME ACTIVATED 428 H ACT (08/13/23 12:01)COAGULATION TIME ACTIVATED 515 H ACT (08/13/23 11:29)COAGULATION TIME ACTIVATED 466 H ACT (08/13/23 10:53)COAGULATION TIME ACTIVATED 450 H -- ATTESTATION -- TIME SPENT ON PATIENT CARE: - Direct 30 minutes CARE ACTIVITIES / CARE COORDINATION: - I have reviewed the history and repeated the dee elements - I have seen and examined this patient - I have reviewed the progress in the clinical course since the lastexamination - I have discussed the patient's condition with other members of the care team Signed in PatientKeeper by Nile Fuentes MD on 08/14/23 at 08:58 at 0858ATTENTION EDITS and/or ADDENDA must be made in Patient Keeper for this note. Edits and ammendments created in [employer] are not visible in Patient Keeper or the legal medical record (HPF). [facility] #: [id number] OF REPORTPRProgress [id number]:55:[id number] ailable for patient [id number]:59:06 [facility] 2023-08-13 19:00:00 [id number] m//[id number]:00:00 [facility] ([facility]) Operative Report REPORT #: [id number] REPORT STATUS: Signed DATE: 08/13/23 TIME: 1899 PATIENT: CHARLIE HART UNIT #: [id number] #: [id number] ROOM #: P.0311 BED: 1 : 35 AGE: 88 SEX: M ATTEND: Tony Gautam MD ADM AUTHOR: João Powell MD ATTENTION EDITS and/or ADDENDA must be made in Patient Keeper for this note. Edits and ammendments created in [facility] are not visible in Patient Keeper or the legal medical record (HPF). -- OPERATION -- SURGERY START DATE/TIME:2023-08-13 09:47 PRE-OPERATIVE DIAGNOSIS:See Full Summary POST-OPERATIVE DIAGNOSIS:See Full Summary INDICATION(S):See Full Summary NAME OF PROCEDURE:See Full Summary TIME OUT COMPLETED:Yes SURGEON:João Powell MD TRAFFIC DIVISION COMMANDING OFFICER(S):See Full Summary ANESTHESIA:See Full Summary ESTIMATED BLOOD LOSS:800 ml's FINDINGS:See Full Summary SPECIMEN(S) REMOVED AND/OR ALTERED:See Full Summary COMPLICATION(S):See Full Summary -- DESCRIPTION -- DESCRIPTION OF TECHNIQUE/PROCEDURE: SURGEON 1ST TRAFFIC DIVISION COMMANDING OFFICER 2ND TRAFFIC DIVISION COMMANDING OFFICER DATE OFOPERATION Marylou Bosch P.A. Whitney Riemer, P.A. 08/13/2023 PREOPERATIVE DIAGNOSIS: 1. Unstable angina 2. Severe critical multivessel coronary artery disease 3. Mild moderate system left ventricular dysfunction (LVEF 40 %) 4. Severe chronic diastolic dysfunction 5. Acute exacerbation of chronic diastolic dysfunction 6. Pulmonary hypertension 7. Mild moderate aortic stenosis 8. Permanent pacemaker 9. Hypertension 10. Hyperlipidemia 11. S/p knee replacement 12. S/p hip replacement 13. S/p shoulder surgery 14. Prostate cancer POSTOPERATIVE DIAGNOSIS: Same OPERATION: 1. Urgent CABG X 3 using cardiopulmonary bypass Left internal mammary artery bypass to the left anterior descending coronaryarteryReversed saphenous vein graft to the ramus intermedius coronary arteryReversed saphenous vein graft to the first obtuse marginal coronary artery 2. Cold Del-Nido cardioplegic arrest 3. Endoscopic vein harvesting (PHILIPPE Wilson) 4. Insertion of temporary epicardial pacing wires AORTIC CLAMP TIME: 64 minutes TOTAL PUMP TIME: 97 minutes LOWEST NASOPHARYNGEAL TEMP: 34.0 C LOWEST BLADDER TEMP: 34.6 C BLOOD REQUIREMENTS: 3 units of packed red blood cells, and 2 units of Cell Saver PROCEDURE: Mr. Hart is a most pleasant 88-year-old gentleman with a pastmedical history significant for hypertension, hyperlipidemia and chronicanemia. In addition, he has a permanent pacemaker (November 2021), and knowncardiomyopathy with LVEF of 40%. Recently, Mr. Hart has been complainingof chest pain on minimal exertion and even at rest. On August 05, 2023 thepatient was admitted to [place] where non-STelevation myocardial infarction was ruled out. He was transferred to [facility] for observation. As his symptoms subsided, the patient wasdischarged and underwent a LHC (August 09, 2023). He was found to havecritical multivessel coronary artery disease (95 % LCx 99% LAD and TOE TRIMMER of theRCA). Due to the above findings, the patient was transferred to [facility] for an urgent surgical coronary revascularization. Ofnote, that transthoracic echocardiogram demonstrated mild moderate aorticstenosis. Due to the patient's age and comorbidities, the decision was made notto address the aortic valve at the time of surgery. The different therapeuticoptions, including PCI as well as the indication for surgery were discussed indetail with the patient and his family. Both the patient and his family wantedto proceed with surgical coronary revascularization. The risks and benefits ofthe operation were explained in detail, and informed consent was obtained. Thepatient was taken to the operating room, placed in the supine position andadministered satisfactory general endotracheal anesthesia. A time-out procedurewas performed, confirming the patient's name, MRN, and procedure to beperformed. Transesophageal echocardiogram demonstrated mild/moderate leftventricular dysfunction (LVEF 40%), with mild to moderate aortic stenosis.These findings correlate with preoperative transthoracic echocardiogram. Next,chest, abdomen and legs were prepped and draped in the usual sterile manner.The chest was entered through a median sternotomy. The left pleura was entered.Next, the left internal mammary artery was dissected in a skeletonized fashionby using the cautery starting from the 6th intercostal space going proximallyto the first rib. The branches were ligated with hemoclips and divided. Theartery was found to be of normal diameter and demonstrated good flow. Then, theleft internal mammary artery was placed and soaked with Papaverine solution.Simultaneously, the greater saphenous vein was harvested from the right leg.The vein was found to be calcified. At that point, the pericardium was openedlongitudinally. There were dense pericardial adhesions mainly around the leftventricle (anterior wall, apex lateral and posterior galvez). The heartdemonstrated mild global dysfunction. The ascending aorta was not dilated. Thepatient was anti-coagulated with sodium heparin, and the heart was cannulatedfor cardiopulmonary bypass with placement of a 20Fr arterial cannula in thedistal ascending aorta and a dual stage cannula in the right atrium.Cardiopulmonary bypass was established, and the patient was allowed to drift tothe above stated temperature. An antegrade cardioplegia cannula was insertedinto the ascending aorta and secured, following which the ascending aorta wascross-clamped. Cold Del-Nido cardioplegic solution was instilled into the ascending aorta establishing a diastolic arrest and keeping the heartisoelectric. Evaluation of the right coronary artery demonstrated a heavilycalcified vessel throughout its length including the posterior descendingartery. A decision was therefore not to bypass the right coronary artery thatwas chronically occluded. At that point, the first obtuse marginal coronaryartery was identified and opened longitudinally. The vessel was noted to besmall, yet suitable for bypass admitting a 1.0 mm dilator. A saphenous veinsegment was then fashioned end-to-side to the arteriotomy made in this vesseland the anastomosis was completed using a running # 7/0 Prolene suture. Next,the ramus intermedius coronary artery was identified. The vessel was noted beata heavily calcified at its proximal segments. It was tracked to anintramuscular portion and was opened longitudinally. The vessel was noted to besuitable for bypass admitting a 1.5 mm dilator. A second saphenous vein segmentwas then fashioned end-to-side to the arteriotomy made in this vessel and theanastomosis was completed using a running # 7/0 Prolene suture. With thecompletion of this distal anastomosis, left anterior descending coronary arterywas identified. This vessel was opened longitudinally and was noted to besuitable for bypass admitting a 1.5 mm dilator. The left internal mammaryartery was then fashioned end-to side to the arteriotomy made in the leftanterior descending coronary artery, and the anastomosis was completed using arunning # 8/0 Prolene suture. Two small aortotomy were made in the ascendingaorta, to which the saphenous vein grafts to the ramus intermedius and firstobtuse marginal coronary arteries were sutured in an end-to-side fashion usingrunning # 6/0 Prolene sutures. The heart chambers were filled with blood. Anypotential air was evacuated via the antegrade aortic cardioplegia cannula. Thepatient was placed in the head-down position and the aortic cross-clampreleased. The heart returned to a paced rhythm (with the patient's permanentpacemaker). Rewarming continued to a nasopharyngeal and bladder temperature of36.0 C. After demonstrating satisfactory hemodynamics, the patient wasuneventfully weaned from cardiopulmonary bypass with mild inotropic support.Transesophageal echocardiogram demonstrated good left ventricular systolicfunction with no new wall-motion abnormalities. The aortic and vena cavalcannulae were removed. Protamine sulfate was administered to reverse theanti-coagulated state. Temporary epicardial pacing wires were placed on theright ventricular outflow tract. One # 40 chest tube was placed in themediastinum, and one # 28 right angle chest tube was placed in the left pleuralspace for drainage. The chest was closed with interrupted # 7 stainless steelsurgical wires on the sternum, running #l Vicryl Plus on the muscular fasciaand running # 3/0 Monocryl suture for the skin.The patient tolerated the procedure well and was taken to the ICU in stablecondition. Sponge, needle and instrument x4 were correct. I was present as surgeon for all elements of this operation that includedopening the chest, harvesting the left internal mammary artery, establishingcardiopulmonary bypass and performing all distal and proximal anastomoses ofthe coronary arteries, including the left internal mammary artery to the leftanterior descending coronary artery. I weaned the patient from cardiopulmonarybypass and closed the incision. Due to the complexity of this surgery, a surgical scrub technician wasnecessary. Wiley Sierra PA-C was present and scrubbed for the entirety of thecase. Wiley was essential for the proper positioning, manipulation ofinstruments, maintenance/exposure of a clear surgical field.He helpedinitiating/weaning from cardiopulmonary bypass and completion of allanastomoses as described above. This operation could not have been safelyperformed (without compromising the technical results or length of theprocedure) without the assistance of a skilled cardiovascular surgical tech. João Powell M.D. Signed in PatientKeeper by João Powell MD on 08/18/23 at 15:37 at 1537ATTENTION EDITS and/or ADDENDA must be made in Patient Keeper for this note. Edits and ammendments created in [facility] are not visible in Patient Keeper or the legal medical record (HPF). [facility] #: [id number] OF REPORTOPOperative [id number]:00:00P.[id number] Available for patient [id number]:38:22 [facility] 2023-08-13 17:55:00 [id number] [id number]:55:00 [facility] ([facility]) Hospitalist Progress Note REPORT #: [id number] REPORT STATUS: Signed DATE: 08/13/23 TIME: 1754 PATIENT: CHARLIE HART UNIT #: [id number] #: [id number] ROOM #: [facility] BED: 1 : 35 AGE: 88 SEX: M ATTEND: Tony Gautam MD ADM AUTHOR: Tony Gautam MD ATTENTION EDITS and/or ADDENDA must be made in Patient Keeper for this note. Edits and ammendments created in [facility] are not visible in Patient Keeper or the legal medical record ([facility]). -- ASSESSMENT AND PLAN -- GENERAL ASSESSMENT: ASSESSMENT AND PLAN: 1. Recent non-ST segment elevation myocardial infarction, around July.S/p coronary angiogram 08/09 showing multivessel coronary artery disease,not amenable to percutaneous coronary intervention.LAD 90 to 99% lesion, left circumflex proximal 90%, 95% obtuse marginal lesion;Occluded proximal RCA. Left ventricular end-diastolic pressure 12;Left ventricular ejection fraction 40%, severe anteroapical hypokinesis.The patient is being admitted to [facility] for higher level of care.Given his multiple comorbidities, coronary intervention is being decided upon,percutaneous versus surgical.Optimized statin dose, continue aspirin and beta-blockers.Plavix was withheld only from 08/08.the patient underwent CABG x [address] Powell 08/13/22. 2. Hypertension continue metoprolol. 3. Hyperlipidemia. Increased statins to high-dose for now. 4. Pulmonary hypertension 5. Benign prostatic hyperplasia. 6. 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 7. Chronic neck pain. Continue home dose of tramadol. 8. PAF, periop, amiodarone. 9. Lactic acidosis, related to surgery. ADDITIONAL COMMENTS:s/p CABG by Dr. João Powell 08/13/22.Continue postoperative care -- SUBJECTIVE -- HPI: This 88-year-old gentleman has a past medical history significant forhypertension, pulmonary hypertension,Nonobstructive coronary artery disease, ischemic cardiomyopathy, with aprevious ejection fraction of 40 to 50%,hyperlipidemia, benign prostatic hyperplasia, vitamin B12 deficiency, Permanentpacemaker placement in November 2021.The patient was in his usual state of health until recently when he developedrecurrent chest pain, suggestive of angina.He was taken to the [place] emergency room on August 05, 2023 where he wasruled in for non-ST segment elevation myocardial infarction.He was started on heparin and transferred to [facility] where he wasobserved for a couple of days and improved on medical therapy.Echocardiogram showed apical wall motion abnormalities with preserved leftventricular ejection fraction.As the patient was doing well on medical management, [facility].He was seen by his primary manager front office, Dr Deyvi Celis and admitted forselective coronary angiogramon August 09, 2023 to [facility].This showed multivessel coronary artery disease,LAD 90 to 99% lesion, left circumflex proximal 90%, 95% obtuse marginal lesion;Occluded proximal RCA. Left ventricular end-diastolic pressure 12;Left ventricular ejection fraction 40%, severe anteroapical hypokinesis.He has been transferred to [facility] for consideration of CABG by Dr.Eyal Powell.When seen in the room the patient is awake alert and oriented and verbalizesthe above. PATIENT NARRATIVE: 08/10: The patient denies any chest pain or shortness of breath at this time.Denies any headache or dizziness.No nausea vomiting.labs pending.echo at the OSH shows:1. Left ventricle: The cavity size is normal. Wall thickness is normal.Systolic function is normal. The estimated ejection fraction is 50-54%.Regional wall motion abnormalities cannot be excluded. Grade I diastolicdysfunction.2. Atrial septum: No defect or patent foramen ovale is identified. He has been seen by the heart team.Given his multiple comorbidities, coronary intervention is being decided upon,percutaneous versus surgical.Plan of care discussed with the patient and his daughter, Elizabeth, at bedside. 08/11: Repeat echo over here shows:1. Left ventricle: The cavity size is normal. Wall thickness is normal.Systolic function is moderately reduced. The estimated ejection fractionis 35-39%. Wall motion is normal; there are no regional wall motionabnormalities. Grade I diastolic dysfunction.2. Aortic valve: The findings are consistent with moderate to severe stenosis.The mean systolic gradient is 15 mm Hg. The valve area is 0.98 cm 2.3. Mitral valve: The annulus is mildly to moderately calcified.Possible low flow low gradient aortic stenosis. Considerfurther evaluation with dobutamine stress echocardiogram. Patient is being evaluated by the consultants.Patient has expressed that the he would prefer getting surgery if his heartcould be taken care of percutaneously.Await final recommendations. 08/12: No acute events overnight.No chest pain or shortness of breath.After extensive discussions, the final recommendations are for CABG by Dr. Young 08/13: the patient underwent CABG x [address] Powell.Intra-op, patient went into AFib, and blood pressure dropped,so was re-explored, and eventually cardioverted. on 0.03mcg of Epinephrine. -REVIEW OF SYSTEMS- GENERAL: as above -- OBJECTIVE -- VITALS (08/12 11:56 - 08/13 11:56):Temperature C: 36.6 (36.4 - 36.8)Pulse Rate 73 (69 - 96)Respiratory rate: 20 (16 - 31)Blood pressure: 130/62 (83/58 - 130/79)Blood pressure source: Monitor I/Os (08/12 07:00 - 08/13 07:00):Net 370Intake 370 -EXAM- GENERAL: Well developed, well nourished, in no apparent distress.HEAD: Normocephalic, atraumatic.EYES: PERRL, EOM intact, conjunctiva and sclera clear, without nystagmus, lids normal.EARS: markedly diminished hearing.NOSE: No deformity, no discharge, no inflammation, no lesions.MOUTH: Oropharynx without deformities or lesions, normal mucosa..NECK: No masses, no thyromegaly, no abnormal cervical nodes, trachea midline.CHEST: NANCY PPMLUNGS: Clear bilaterally with normal respiratory effort.HEART: RRR; II/ LUIS at LLSBABDOMEN: Soft, non-tender, no organomegaly, no masses noted.MUSCULOSKELETAL: No deformity, no scoliosis noted of thoracic or lumbar spine, joint ROM grossly normal, normal gait and station.EXTREMITIES: No clubbing, no cyanosis, no edema.NEUROLOGICAL: No focal deficits, cranial nerves II-XII grossly intact, normal sensation, normal reflexes, normal coordination, normal muscle strength, normal tone.PULSES: Pulses normal in all extremities. -- DATA -- MEDICATIONS MAGNESIUM HYDROXIDE 30 ML PO ASDIR PRNbisacodyL 10 MG RECTAL ASDIR PRNCYANOCOBALAMIN 500 MCG PO DAILYMAGNESIUM 1 GM IV ASDIR PRNNOREPINEPHRINE BITARTRATE 4 MG IV TITRATEcloNIDine HCL 0.1 MG PO Q8H PRNNITROGLYCERIN 0.4 MG SL Q5M PRNCALCIUM GLUC IN NACL, ISO-OSM 2 GM IV ASDIR PRNACETAMINOPHEN 650 MG PO Q4H PRNSODIUM BICARBONATE 8.4% 50 MEQ IV .ONCE PRNSODIUM CHLORIDE 10 mL 10 ML IV ASDIRFERROUS SULFATE 325 MG PO DAILYATORVASTATIN CALCIUM 40 MG PO BEDTIMEVANCOMYCIN HCL with/in SODIUM CHLORIDE 0.9% 1500 MG IV ONCEceFAZolin SODIUM with/in WATER FOR INJECTION,STERILE 2 GM IV ONCEPOTASSIUM CHLORIDE 20 MEQ IV ASDIR (PRN)MAG HYDROX/AL HYDROX/SIMETH 30 ML PO Q6H PRNtraMADol HCL 50 MG PO BID (PRN)EPINEPHrine HCL/D5W 4 MG IV ASDIRniCARdipine HCL with/in SODIUM CHLORIDE 100 mL BAG 25 MG IV TITRATEpolyethylene glycoL 3350 1 PKT PO DAILYDOCUSATE SODIUM 200 MG PO DAILYMUPIROCIN 1 APPLIC NASAL BIDASPIRIN 81 MG PO DAILYGLUCAGON 1 MG IM ASDIR PRNLACTULOSE 30 ML PO ASDIR PRNSENNOSIDES 2 TAB PO ASDIR PRNONDANSETRON HCL/PF 4 MG IV Q6H PRNLACTULOSE 30 ML PO ASDIR PRNKETOTIFEN FUMARATE 1 DROP EACH EYE BID PRNACETAMINOPHEN 650 MG RECTAL Q4H PRNDEXTROSE 50%-WATER 25 ML IV ASDIR PRNtraMADol HCL 50 MG PO [id number] TARTRATE 5 MG IV Q6H PRNACETAMINOPHEN 650 MG PO Q6HR LABS ACT (08/13/23 11:29)COAGULATION TIME ACTIVATED 466 H ACT (08/13/23 10:53)COAGULATION TIME ACTIVATED 450 H MAG (08/12/23 16:37)MAGNESIUM 1.7 CBC W/AUTO DIFF (08/12/23 16:37)WHITE BLOOD CELL 9.4RED BLOOD CELL 3.37 LHEMOGLOBIN 12.1L LHEMATOCRIT 37.1L LMEAN CELL VOLUME 110.1 HMEAN CELL HGB 35.9 HMEAN CELL HGB CONCENTRATION 32.6 LRED CELL DISTRIBUTION WIDTH 12.2 LPLATELET COUNT 183 MEAN PLATELET VOLUME 9.4NEUTROPHIL % 63.1LYMPHOCYTE % 22.4MONOCYTE % 11.3 HEOSINOPHIL % 2.5BASOPHIL % 0.4NEUTROPHIL # 5.90LYMPHOCYTE # 2.10MONOCYTE # 1.06 HEOSINOPHIL # 0.23BASOPHIL # 0.04 PHOS (08/12/23 16:37)PHOSPHOROUS 3.2 PTT (08/12/23 16:37)THROMBOPLASTIN TIME PARTIAL 25.6 PROTHROMBIN TIME (08/12/23 16:37)PROTHROMBIN TIME PATIENT 14.0 HINTERNATIONAL NORMAL RATIO 1.26 H BASIC METABOLIC PANEL (08/12/23 16:37)SODIUM 143POTASSIUM 4.7CHLORIDE 108H HCARBON DIOXIDE 26GLUCOSE 109H HBLOOD UREA NITROGEN 26H HGLOMERULAR FILTRATION RATE >=60 max estimateCREATININE 1.10CALCIUM 8.4 L BASIC METABOLIC PANEL (08/13/23 15:59)SODIUM 148H HPOTASSIUM 4.1CHLORIDE 113H HCARBON DIOXIDE 22GLUCOSE 175H HBLOOD UREA NITROGEN 19GLOMERULAR FILTRATION RATE >=60 max estimateCREATININE 0.90CALCIUM 9.2 BLOOD GAS W/ELECTROLYTES (08/13/23 17:51)ARTERIAL BLOOD GAS PH 7.35ARTERIAL BLOOD GAS PCO2 37.0ARTERIAL BLOOD GAS PO2 177.6 HBICARBONATE TOTAL HCO3 19.7 LBASE EXCESS -5.4 LABG O2 SATURATION 98.9ARTERIAL FIO2 60.0ABG VENT MODE VENTALLENS TEST NOT APPLICABLESODIUM (POC) 144POTASSIUM (POC) 3.97CHLORIDE (ARTERIAL) 108GLUCOSE 151 HIONIZED CALCIUM 1.10 LPOC LACTIC ACID 6.03 H TOTAL HGB 11.0 D LOXYHEMOGLOBIN 98.0CARBOXYHEMOGLOBIN 0.6METHEMOGLOBIN <0.8HHb 1.1TCO2 ARTERIAL 20.9 L ACT (08/13/23 15:07)COAGULATION TIME ACTIVATED 136 CBC W/AUTO DIFF (08/13/23 15:59)WHITE BLOOD CELL 14.5H HRED BLOOD CELL 2.67 LHEMOGLOBIN 9.0D L D LHEMATOCRIT 26.5L LMEAN CELL VOLUME 99.3 HMEAN CELL HGB 33.7 HMEAN CELL HGB CONCENTRATION 34.0RED CELL DISTRIBUTION WIDTH 17.5 HPLATELET COUNT 215MEAN PLATELET VOLUME 10.0NEUTROPHIL % 81.9 HLYMPHOCYTE % 7.4 LMONOCYTE % 9.8 HEOSINOPHIL % 0.2BASOPHIL % 0.1NEUTROPHIL # 11.87 HLYMPHOCYTE # 1.08MONOCYTE # 1.42 HEOSINOPHIL # 0.03BASOPHIL # 0.02 PROTHROMBIN TIME (08/13/23 15:59)PROTHROMBIN TIME PATIENT 12.6INTERNATIONAL NORMAL RATIO 1.13 D H LACTIC ACID (08/13/23 15:59)LACTIC ACID 4.80 *H PTT (08/13/23 15:59)THROMBOPLASTIN TIME PARTIAL 26.6 PHOS (08/13/23 15:59)PHOSPHOROUS 4.7 D -- QUALITY -- -MEDICATIONS- - I attest that the foregoing medication list in the medical record is true,accurate, and complete to the best of my knowledge. -- ATTESTATION -- CARE ACTIVITIES / CARE COORDINATION: - I have reviewed the history and repeated the dee elements - I have seen and examined this patient - I have reviewed the progress in the clinical course since the lastexamination - I have discussed the patient's condition with other members of the care team Signed in PatientKeeper by Tony Gautam MD on 08/13/23 at 21:07 at 2107ATTENTION EDITS and/or ADDENDA must be made in Patient Keeper for this note. Edits and ammendments created in [employer] are not visible in Patient Keeper or the legal medical record (HPF). RPT #: [id number] OF REPORTPRProgress [id number]:55:00P.SJ-[id number] ailable for patient [id number]:08:03 [facility] 2023-08-13 17:33:00 [id number] [id number]:33:00 [facility] ([facility]) Intensive Care Consultation REPORT #: [id number] REPORT STATUS: Signed DATE: 08/13/23 TIME: 2633 PATIENT: CHARLIE HART UNIT #: [id number] #: [id number] ROOM #: P.0311 BED: 1 : 35 AGE: 88 SEX: M ATTEND: Tony Gautam MD ADM AUTHOR: Yoav Hernandez MD ATTENTION EDITS and/or ADDENDA must be made in Patient Keeper for this note. Edits and ammendments created in [employer] are not visible in Patient Keeper or the legal medical record (HPF). -- ASSESSMENT AND PLAN -- GENERAL ASSESSMENT:Assessment and PlanMrCarole Hart is an 88 year-old male with past medical history of hypertension,hyperlipidemia, coronary artery disease, carotid disease, presence of permanentpacemaker (2021), pulmonary hypertension, and ischemic cardiomyopathy withprevious ejection fraction 40-50% admitted today post-op CABG x [address] Powell.Intra-op, patient went into AFib, and blood pressure dropped, so wasre-explored, and eventually cardioverted. Patient came out on 0.03mcg ofEpinephrine. NeuroICU Analgesia/Sedation- PRN Fentanyl- Tramadol, Tylenol for pain CVCAD s/p CABG x 3Cardiogenic ShockVasoplegic ShockHTNPPMPAH- on Epi 3 mcg, Levo 2 mcg- PPM interrogated, no issue- s/p Amiodarone 300mg, starting gtt at 0.5- following chest tube outputs Resp- on vent PC 50%/15/5; weaning towards extubation GI- NPO for now, will resume cardiac diet once extubated Renal- Will follow BUN/Cr/UOP Heme- CBC, Coags sent- replaced with 2 PRBC, 1 FFP bedside ID - no signs of infection- post-op Abx continued Endo- monitor BG- will cover with SS Insulin Prophylaxis- SCD- PPI/H2 Advanced Care Planning:Code: FullMPOA , daughterAdvanced Care Plan: Yes Medications reviewed with the clinical pharmacist Yoav Hernandez, [facility] [place] -- HISTORY -- HPI:Mr. Hart is an 88 year-old male with past medical history of hypertension,hyperlipidemia, coronary artery disease, carotid disease, presence of permanentpacemaker (2021), pulmonary hypertension, and ischemic cardiomyopathy withprevious ejection fraction 40-50% admitted today post-op CABG x [address] Powell. PAST MEDICAL HISTORY:HypertensionPulmonary hypertensionNonobstructive coronary artery diseaseRecent non-ST segment elevation myocardial infarction, around August 054Recently diagnosed severe multivessel coronary artery diseaseIschemic cardiomyopathy, previous ejection fraction 40 to 50%HyperlipidemiaVitamin B12 deficiencyKnee replacement surgeryHernia repair surgeryCholecystectomyHip and shoulder replacementProstate cancerPermanent pacemaker placement PAST SURGICAL HISTORY:as above -SOCIAL HISTORY- -TOBACCO USE- DETAILS/COMMENTS:none -VAPING/INHALED SOLVENTS- DETAILS/COMMENTS:none -ALCOHOL USE- DETAILS/COMMENTS:none -DRUG USE- DETAILS/COMMENTS:none MARITAL STATUS: LIVING SITUATION:with -- SUBJECTIVE -- PATIENT NARRATIVE:Unable to attain due to critical state -- OBJECTIVE -- VITALS (08/12 17:33 - 08/13 17:33):Temperature C: 36.6 (36.4 - 36.7)Pulse Rate 73 (69 - 83)Respiratory rate: 20 (16 - 26)Blood pressure: 130/62 (90/58 - 130/79)Blood pressure source: Monitor I/Os (08/12 07:00 - 08/13 07:00):Net 370Intake 370 -EXAM- GENERAL: Well developed, well nourished, in no apparent distress.HEAD: Normocephalic, atraumatic.EYES: PERRL, EOM intact, conjunctiva and sclera clear, without nystagmus, lids normal.NOSE: No deformity, no discharge, no inflammation, no lesions.MOUTH: Oropharynx without deformities or lesions, normal mucosa..NECK: No masses, no thyromegaly, no abnormal cervical nodes, trachea midline.CHEST: Round chest, midline incision intact, chest tubes in placeLUNGS: Clear bilaterally with normal respiratory effort.HEART: Regular rate and rhythm, normal S1, S2, no murmurs, no rubs, no gallops, no clicks.ABDOMEN: Soft, non-tender, no organomegaly, no masses noted.MUSCULOSKELETAL: No deformity, no scoliosis noted of thoracic or lumbar spine, joint ROM grossly normal.EXTREMITIES: No clubbing, no cyanosis, no edema.NEUROLOGICAL: SedatedPULSES: Pulses normal in all extremities. SKIN: Intact without significant lesions, or rashes.LYMPH NODES: No significant cervical node adenopathy. No significant axillary node adenopathy. No significant inguinal node adenopathy. -- DATA -- MEDICATIONS MAGNESIUM HYDROXIDE 30 ML PO ASDIR PRNbisacodyL 10 MG RECTAL ASDIR PRNCYANOCOBALAMIN 500 MCG PO DAILYMAGNESIUM 1 GM IV ASDIR PRNNOREPINEPHRINE BITARTRATE 4 MG IV TITRATEcloNIDine HCL 0.1 MG PO Q8H PRNNITROGLYCERIN 0.4 MG SL Q5M PRNCALCIUM GLUC IN NACL, ISO-OSM 2 GM IV ASDIR PRNACETAMINOPHEN 650 MG PO Q4H PRNSODIUM BICARBONATE 8.4% 50 MEQ IV .ONCE PRNSODIUM CHLORIDE 10 mL 10 ML IV ASDIRFERROUS SULFATE 325 MG PO DAILYATORVASTATIN CALCIUM 40 MG PO BEDTIMEVANCOMYCIN HCL with/in SODIUM CHLORIDE 0.9% 1500 MG IV ONCEceFAZolin SODIUM with/in WATER FOR INJECTION,STERILE 2 GM IV ONCEPOTASSIUM CHLORIDE 20 MEQ IV ASDIR (PRN)MAG HYDROX/AL HYDROX/SIMETH 30 ML PO Q6H PRNtraMADol HCL 50 MG PO BID (PRN)EPINEPHrine HCL/D5W 4 MG IV ASDIRniCARdipine HCL with/in SODIUM CHLORIDE 100 mL BAG 25 MG IV TITRATEpolyethylene glycoL 3350 1 PKT PO DAILYHUM PROTHROMBIN CPLX(PCC)4FACT with/in CONTAINER,EMPTY 1015 UNIT IV PREOP ONCEFIBRINOGEN 2000 MG IV PREOP ONCEDOCUSATE SODIUM 200 MG PO DAILYMUPIROCIN 1 APPLIC NASAL BIDASPIRIN 81 MG PO DAILYGLUCAGON 1 MG IM ASDIR PRNLACTULOSE 30 ML PO ASDIR PRNSENNOSIDES 2 TAB PO ASDIR PRNONDANSETRON HCL/PF 4 MG IV Q6H PRNLACTULOSE 30 ML PO ASDIR PRNKETOTIFEN FUMARATE 1 DROP EACH EYE BID PRNACETAMINOPHEN 650 MG RECTAL Q4H PRNAMIODARONE HCL/D5W 450 MG IV ASDIRDEXTROSE 50%-WATER 25 ML IV ASDIR PRNtraMADol HCL 50 MG PO I2WEPNEDBPZNIA TARTRATE 5 MG IV Q6H PRNACETAMINOPHEN 650 MG PO Q6HR LABS LACTIC ACID (08/13/23 15:59)LACTIC ACID 4.80 *H BASIC METABOLIC PANEL (08/13/23 15:59)SODIUM 148H HPOTASSIUM 4.1CHLORIDE 113H HCARBON DIOXIDE 22GLUCOSE 175H HBLOOD UREA NITROGEN 19 GLOMERULAR FILTRATION RATE >=60 max estimateCREATININE 0.90CALCIUM 9.2 CBC W/AUTO DIFF (08/13/23 15:59)WHITE BLOOD CELL 14.5H HRED BLOOD CELL 2.67 LHEMOGLOBIN 9.0D L D LHEMATOCRIT 26.5L LMEAN CELL VOLUME 99.3 HMEAN CELL HGB 33.7 HMEAN CELL HGB CONCENTRATION 34.0RED CELL DISTRIBUTION WIDTH 17.5 HPLATELET COUNT 215MEAN PLATELET VOLUME 10.0NEUTROPHIL % 81.9 HLYMPHOCYTE % 7.4 LMONOCYTE % 9.8 HEOSINOPHIL % 0.2BASOPHIL % 0.1NEUTROPHIL # 11.87 HLYMPHOCYTE # 1.08MONOCYTE # 1.42 HEOSINOPHIL # 0.03BASOPHIL # 0.02 MAG (08/13/23 15:59)MAGNESIUM 2.2 PROTHROMBIN TIME (08/13/23 15:59)PROTHROMBIN TIME PATIENT 12.6INTERNATIONAL NORMAL RATIO 1.13 D H PHOS (08/13/23 15:59)PHOSPHOROUS 4.7 D PTT (08/13/23 15:59)THROMBOPLASTIN TIME PARTIAL 26.6 ACT (08/13/23 15:07)COAGULATION TIME ACTIVATED 136 CBC W/AUTO DIFF (08/13/23 15:06)WHITE BLOOD CELL 16.3H HRED BLOOD CELL 3.42 LHEMOGLOBIN 11.6L LHEMATOCRIT 34.4L LMEAN CELL VOLUME 100.6 D HMEAN CELL HGB 33.9 HMEAN CELL HGB CONCENTRATION 33.7RED CELL DISTRIBUTION WIDTH 17.1 HPLATELET COUNT 112L LMEAN PLATELET VOLUME 9.4NEUTROPHIL % 78.2 HLYMPHOCYTE % 12.6 LMONOCYTE % 7.3EOSINOPHIL % 0.3BASOPHIL % 0.2NEUTROPHIL # 12.76 HLYMPHOCYTE # 2.05 MONOCYTE # 1.19 HEOSINOPHIL # 0.05BASOPHIL # 0.04 PTT (08/13/23 15:06)THROMBOPLASTIN TIME PARTIAL 32.5 D FIB (08/13/23 15:06)FIBRINOGEN 159 L PROTHROMBIN TIME (08/13/23 15:06)PROTHROMBIN TIME PATIENT 20.1 HINTERNATIONAL NORMAL RATIO 1.83 D H ACT (08/13/23 13:35)COAGULATION TIME ACTIVATED 131 ACT (08/13/23 12:31)COAGULATION TIME ACTIVATED 428 H ACT (08/13/23 12:01)COAGULATION TIME ACTIVATED 515 H ACT (08/13/23 11:29)COAGULATION TIME ACTIVATED 466 H ACT (08/13/23 10:53)COAGULATION TIME ACTIVATED 450 H -- ATTESTATION -- TIME SPENT ON PATIENT CARE: - Critical care: time spent apart from any procedure 90 minutes CARE ACTIVITIES / CARE COORDINATION: - I have reviewed the history and repeated the dee elements - I have seen and examined this patient - I have reviewed the progress in the clinical course since the lastexamination - I have discussed the patient's condition with other members of the care team Signed in PatientKeeper by Yoav Hernandez MD on 08/13/23 at 17:39 at 1739ATTENTION EDITS and/or ADDENDA must be made in Patient Keeper for this note. Edits and ammendments created in [employer] are not visible in Patient Keeper or the legal medical record (HPF). [facility] #: [id number] OF [id number]:33:00P.PK-NO [id number] for patient [id number]:40:08 [facility] 2023-08-13 16:08:00 [id number] [id number] /LjOSf8nqQWCeXxzaAwJlnN4d7n6276-11-97Q70:08:00 [facility] ([facility]) Brief Operative Report REPORT #: [id number] REPORT STATUS: Signed DATE: 08/13/23 TIME: 1608 PATIENT: CHARLIE HART UNIT #: [id number] #: [id number] ROOM #: P.0311 BED: 1 : 35 AGE: 88 SEX: M ATTEND: Tony Gautam MD ADM AUTHOR: Wiley Sierra ATTENTION EDITS and/or ADDENDA must be made in Patient Keeper for this note. Edits and ammendments created in [facility] are not visible in Patient Keeper or the legal medical record (HPF). -- BRIEF OP NOTE -- PRE-OPERATIVE DIAGNOSIS:1. Unstable angina 2. Severe critical multivessel coronary artery disease 3. Mild moderate system left ventricular dysfunction (LVEF 40 %) 4. Severe chronic diastolic dysfunction 5. Acute exacerbation of chronic diastolic dysfunction 6. Pulmonary hypertension 7. Mild moderate aortic stenosis 8. Permanent pacemaker 9. Hypertension 10. Hyperlipidemia 11. S/p knee replacement 12. S/p hip replacement 13. S/p shoulder surgery 14. Prostate cancer POST-OPERATIVE DIAGNOSIS:same NAME OF PROCEDURE:CABG x 3; STANLEY--LAD, SVG-->Ramus and SVG--> OM SURGEON:João Powell MD [employer]FFIC [employer] COMMANDING OFFICER(S):Wiley Starr PA-C FINDINGS:CAD ESTIMATED BLOOD LOSS (ML'S):800 SPECIMEN(S) REMOVED AND/OR ALTERED:none COMPLICATION(S):none DRAIN(S):28fr left pleural mrgr13gu chest tube ADDITIONAL COMMENTS:3 units of packed red blood cells, and 2 units of Cell Saver Signed in PatientKeeper by Wiley Sierra on 08/18/23 at 16:11 at 1611ATTENTION EDITS and/or ADDENDA must be made in Patient Keeper for this note. Edits and ammendments created in [facility] are not visible in Patient Keeper or the legal medical record ([facility]). [facility] #: [id number] OF REPORTOPOperative [id number]:08:00P.TJ-[id number] Available for patient [id number]:12:13 [facility] 2023-08-13 10:26:00 [id number]/579TnodLW I+[id number]6X23:26:00 [facility] ([facility]) Cardiology Progress Notes REPORT #: [id number] REPORT STATUS: Signed DATE: 08/13/23 TIME: 1026 PATIENT: CHARLIE HART UNIT #: [id number] #: [id number] ROOM #: P.0418 BED: A : 35 AGE: 88 SEX: M ATTEND: Tony Gatuam MD ADM AUTHOR: Trina Marquez MD CF1 ATTENTION EDITS and/or ADDENDA must be made in Patient Keeper for this note. Edits and ammendments created in [employer] are not visible in Patient Keeper or the legal medical record (HPF). -- CO-SIGNATURE -- COMMENTS:The patient was seen on rounds with Trina Marquez MD The patient has no complaints Examination demonstrates normal heart sounds and clear lung stanley. Impression and plan The patient is an 88-year-old gentleman with coronary artery disease and an EFbetween 40 to 50% from the outside records with anterior hypokinesis who wastransferred here for possible bypass surgery.The patient is doing well post procedure. The patient is on load levelinotropic and pressor support with epinephrine at 3 mcg/min and Levophed at 2mcg/min.Had a atrial fibrillation with rapid ventricular rate and is now on anamiodarone drip. Signed in PatientKeeper by GINO DENG MD on 09/06/23 at 13:57 -- ASSESSMENT AND PLAN -- GENERAL ASSESSMENT:88 years old gentleman who underwent 3 v CABG and developed cardiogenic andvasoplegic shock, also suffered from Afib intraoperatively and wascardioverted, in now on Epinephrine in the post op period. PROBLEMS: 1: Coronary artery diseaseA/P: S/P CABG x 3POD # 0Chest tubes present, following out put, CV Surgery following the case.Still on mechanical ventilationContinued on Epi of 3, Levo of 2 2: Afib A/P: History of Atrial fibrilaltion s/p ppmIntra operative Atrial fibrillation with RVR, cardioverted back to sinusNow on Amiodarone drip.PPM interrogation completed, no active issues. -- SUBJECTIVE -- HPI:88 year-old male with past medical history of hypertension, hyperlipidemia,coronary artery disease, carotid disease, presence of permanent pacemaker(2021), pulmonary hypertension, and ischemic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 nonobstructive coronaryartery disease who presented to an outside ED with unstable angina and ruled infor NSTEMI. He was transferred to [facility] and underwent coronary angiogrampositive for severe multi-vessel disease and subsequently transferred to [facility] coronary revascularization. The patient's entire medical chart has beenreviewed. Dr. Powell has reviewed the patient's chest CT and coronary angiogramdemonstrating severe triple vessel disease with proximal LAD lesion, 90%proximal circumflex, 95% OM, and TOE TRIMMER on the right. He has excellent bypasstargets. His carotid dopplers show mild bilateral disease. Veinous mapping ispending. Patient is afebrile, on room air with good blood pressure control. Hisadmission hemoglobin is 11.3, no leukocytosis. Echocardiogram on 08/11 showsgrade moderate systolic function reduced with LVEF 35-39%, grade 1 diastolicdysfunction, no wall motion abnormalities, moderate-severe aortic stenosis(possible low flow, low gradient- VALERIE 0.98cm2, mean systolic gradient 15mmHg),mild mitral regurgitation, and mild tricuspid regurgitation. Previousechocardiogram report from [place] with no aortic stenosis. Despite thepatient's age, he is ambulatory and has a good baseline functional capacity andfamily support. The patient was seen and examined alongside Dr. Powell. He denies any chest painor shortness of breath. Indications for revascularization with either coronaryartery bypass or percutaneously were presented to the patient. The patientprefers to not have surgery but would like to proceed with the optimalintervention even if that is surgery. STS for isolated CABG with current datais intermediate at 6.8%. Given the patient's advanced age co-morbid conditions,will coordinate with cardiology for CABG vs high-risk PCI and interventiontiming. Awaiting Plavix washout - last dose of Plavix was 08/07/23. Plan:- Continue daily aspirin, statin, beta lois, and nitrates. Plavix on holdfor upcoming surgery.- Vein mapping today.- PT/OT daily. OOB in chair.- Cardiac diet.- Start IS. Thank you for the consultation and opportunity to participate in the patient'scare. STS SCORE: Procedure Type: Isolated CABGPerioperative OutcomeEstimate %Operative Mortality6.82%Morbidity Vvnfvkizh53.7%Stroke1.98%Renal Failure2.45%Reoperation3.87%Prolonged Ventilation7.21%Deep Sternal Wound Infection0.098%Long Hospital Stay (>14 days)12.8%Short Hospital Stay (<6 days)*16.6% Clinical SummaryPlanned Surgery:Isolated CABG, Urgent, First cardiovascular surgeryDemographics:88 year old, White, male, 74kg, 172cm, BMI: 25 kg/mInsurance/Payor:[facility] Values:Creatinine: 1.1 mg/dL, Hematocrit: 35.7%, WBC Count: 8.3 10/L,Platelet Count: [id number] cells/LSubstance Abuse:Former smokerRisk Factors / Comorbidities:Hypertension, Family Hx of CADVascular RF:Cerebrovascular Disease: TIACardiac Status:Chronic heart failure, NYHA Class III, Ejection Fraction = 39%Coronary Artery Disease:3 vessels diseased, Proximal LAD Stenosis 70%, Non-STElevation NC, NC: 8 to 21 DaysValve Disease:Aortic Stenosis, Mild MR, Mild TRArrhythmia:Remote 2 Degree BlockPrev. Cardiac Interv:Previous other: Permanent Pacemaker - Yes, STS risk calculator score was calculated and discussed withpatient/family prior to surgery as documented in the medical record -- HISTORY -- CONSULT REQUESTED BY:Deyvi Celis MD Cardiology REASON FOR CONSULT:Severe multi-vessel coronary artery disease. CHIEF COMPLAINT:The patient was transferred from [facility] for CABG evaluation. HPI:Mr. Hart is an 88 year-old male with past medical history of hypertension,hyperlipidemia, coronary artery disease, carotid disease, presence of permanentpacemaker (2021), pulmonary hypertension, and ischemic cardiomyopathy withprevious ejection fraction 40-50%. The patient had been status quo sincepacemaker implantation until on 08/04/23 he developed sudden onset angina duringa power outage at home. The patient was unable to call for help and drovehimself to the [place] on 08/05. He was ruled in for NSTEMI andtransfer[facility]. His chest pain improved on medicaltherapy, but echocardiogram showed apical wall motion abnormalities. Thepatient was not happy with his care and discharged home. He saw hiscardiologist, Dr. Celis in the office on 08/07 and scheduled for outpatientcardiac catheterization on 08/09. His last nuclear stress test was negative [id number] and last catheterization was in 1991. The patient underwent coronaryangiogram by Dr. Celis on 08/09 that showed LAD (90 to 99% lesion), circumflexproximal 90%, 95% obtuse marginal lesion, RCA (proximal TOE TRIMMER), LVEDP 12, LVEF 40%, severe anteroapical hypokinesis. The patient was transferred to [facility] forconsideration of urgent coronary artery bypass. The patient endorses the abovehistory. He denies any chest pain or shortness of breath [facility]. 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 Celis)Permanent pacemaker implantation (12/15/2021)Left heart catheterization - nonobstructive disease (1993)Hernia repairCholecystectomyHip replacementShoulder replacementKnee replacement FAMILY HISTORY:Positive family history of heart disease and hypertension. -SOCIAL HISTORY- -TOBACCO USE- DETAILS/COMMENTS:Former smoker. Quit 1971 - Smoked 2packs/day x 10 years. -VAPING/INHALED SOLVENTS- DETAILS/COMMENTS:No use. -ALCOHOL USE- DETAILS/COMMENTS:None. -DRUG USE- DETAILS/COMMENTS:No history of use. MARITAL STATUS: LIVING SITUATION: Patient lives with his . ADDITIONAL SOCIAL HISTORY:Patient ambulates with a cane. He is independent with all ADLs, active aroundthe house. Still drives. -- ALLERGIES/HOME MEDS -- ALLERGIES:No Known Allergies (UNKNOWN - Allergy) HOME MEDICATIONS:AREDS 2 CAP PO DAILYaspirin chewable tablet 81 MG PO DAILYAtorvastatin Tab (Lipitor Tab) 10 MG PO DAILYClopidogrel Tab (Plavix Tab) 75 MG PO DAILYFosamax tablet (alendronate) 70 MG PO R2KOwnnivzzuc Mononitrate Tab.ER (Imdur Tab) 30 MG PO DAILYMetoprolol Succinate XL Tab (Toprol XL Tab) 25 MG PO DAILYolopatadine 0.2 % eye drops 1 DROP Each Eye DAILYtraMADol Tab (Ultram Tab) 50 MG PO BIDtraMADol Tab.ER (NF) (Ultram Tab.ER (NF)) 150 MG PO DAILY -- SUBJECTIVE -- -REVIEW OF SYSTEMS- GENERAL: Negative for fever, malaise, fatigue.EYES: Negative for blurry vision. No diplopia.RESPIRATORY: Negative for dyspnea or wheeze. No cough.CARDIOVASCULAR: Negative for chest pain or palpitations. No extremity swelling.GASTROINTESTINAL: Negative for abdominal pain or nausea. No emesis. No diarrhea.GENITOURINARY: Negative for dysuria, frequency, or urgency. No gross hematuria.MUSCULOSKELETAL: Negative for joint stiffness, pain, or arthralgias.SKIN: Negative for rashes. No pruritus.NEUROLOGICAL: Negative for headache. No vertigo. Denies paresthesias.PSYCHIATRIC: Negative for specific complaints. -- OBJECTIVE -- VITALS (08/11 10:55 - 08/12 10:55):Temperature C: 36.8 (36.7 - 36.9)Pulse Rate 87 (79 - 94)Respiratory rate: 21 (17 - 25)Blood pressure: 123/67 (98/59 - 123/73)Blood pressure source: Monitor I/Os (08/11 07:00 - 08/12 07:00):Net 270Intake 270Output 0 -EXAM- GENERAL: Well developed, well nourished, elderly male in no apparent distress. HEAD: Normocephalic, atraumatic.NECK: No masses, no thyromegaly, no abnormal cervical nodes, trachea midline.CHEST: Grossly normal appearance.LUNGS: Clear bilaterally with normal respiratory effort.HEART: Regular rate and rhythm, normal S1, S2, no murmurs, no rubs, no gallops, no clicks.ABDOMEN: Soft, non-tender, no organomegaly, no masses noted.MUSCULOSKELETAL: No deformity, no scoliosis noted of thoracic or lumbar spine, joint ROM grossly normal, normal gait and station.EXTREMITIES: No clubbing, no cyanosis, no edema.NEUROLOGICAL: No focal deficits, cranial nerves II-XII grossly intact, normal sensation, normal reflexes, normal coordination, normal muscle strength, normal tone.PULSES: Pulses normal in all extremities.SKIN: Intact without significant lesions, or rashes.PSYCHIATRIC: Alert and oriented to time, person, place. Normal mood and affect, intact judgment and insight. -- DATA -- MEDICATIONS ONDANSETRON HCL/PF 4 MG IV Q6H PRNcloNIDine HCL 0.1 MG PO Q8H PRNNITROGLYCERIN 0.4 MG SL Q5M PRNKETOTIFEN FUMARATE 1 DROP EACH EYE BID PRNMAG HYDROX/AL HYDROX/SIMETH 30 ML PO Q6H PRNtraMADol HCL 50 MG PO BID (PRN)ACETAMINOPHEN 650 MG PO Q4H PRNMETOPROLOL SUCCINATE 25 MG PO [id number] SODIUM 100 MG PO BIDLACTULOSE 30 ML PO BID PRNMETOPROLOL TARTRATE 5 MG IV Q6H PRNISOSORBIDE MONONITRATE 30 MG PO DAILYASPIRIN 81 MG PO DAILYONDANSETRON 4 MG PO Q6H PRNATORVASTATIN CALCIUM 40 MG PO BEDTIME -- QUALITY -- -MEDICATIONS- - I attest that the foregoing medication list in the medical record is true,accurate, and complete to the best of my knowledge. -VTE PROPHYLAXIS -GENERAL- Yes TYPE OF VTEmechanical compression device -- ATTESTATION -- CARE ACTIVITIES / CARE COORDINATION: - I have reviewed the history and repeated the dee elements - I have seen and examined this patient - I have reviewed the progress in the clinical course since the lastexamination - I have discussed the patient's condition with other members of the care team Signed in PatientKeeper by Rosie Starr on 08/12/23 at 13:00 Cosigned by JOÃO POWELL MD on 08/13/23 at 08:54 at 0854 at 0854ATTENTION EDITS and/or ADDENDA must be made in Patient Keeper for this note. Edits and ammendments created in Allmyapps are not visible in Patient Keeper or the legal medical record ([facility]). RPT #: [id number] OF [id number]:55:00P.PK-NO [id number] for patient [id number]:55:07 [facility] 2023-08-12 08:46:00 [id number] 0ZoCXC+glmp6OPrXRAVzCGVR+hw3791-64-31S32:46:00 [facility] ([facility]) Cardiology Progress Notes REPORT #: [id number] REPORT STATUS: Signed DATE: 08/12/23 TIME: 08 PATIENT: CHARLIE HART UNIT #: [id number] #: [id number] ROOM #: P.0418 BED: A : 35 AGE: 88 SEX: M ATTEND: Tony Gautam MD ADM AUTHOR: Annette Chow ATTENTION EDITS and/or ADDENDA must be made in Patient Keeper for this note. Edits and ammendments created in [employer] are not visible in Patient Keeper or the legal medical record ([facility]). -- CO-SIGNATURE -- COMMENTS:The patient was seen on rounds with PHILIPPE Prabhakar. The patient has no complaints Examination demonstrates normal heart sounds and clear lung stanley. Impression and plan The patient was seen on rounds with PHILIPPE Prabhakar. The patient has no complaintsExamination demonstrates normal heart sounds and clear lung stanley. Impression and planThe patient is an 88-year-old gentleman with coronary artery disease and an EFbetween 40 to 50% from the outside records with anterior hypokinesis who wastransferred here for possible bypass surgery. I have reviewed the films withcardiac surgery. The patient in my estimation is a better candidate for bypasssurgery rather than percutaneous coronary intervention. I understand that heis quite old but doing his coronary would be extremely difficult. This vesselalso supplies collaterals to all his other occluded vessels as well. I thinkhe would simply do well to have a STANLEY to the LAD. Signed in PatientKeeper by GINO DENG MD on 09/06/23 at 13:56 -- ASSESSMENT AND PLAN -- PROBLEMS: 1: Multiple vessel coronary artery diseaseA/P: The patient is an 88-year-old gentleman (patient of Dr. Deyvi Celis) hasa PMHx of hypertension, pulmonary hypertension, NICMP, HFrEF (EF 40 to 50%),hyperlipidemia, BPH, vitamin B12 deficiency, PPM placement (11/2021). Hedeveloped recurrent chest pain, suggestive of angina, and presented at [place] emergency room on 08/05/22 for further evaluation and management. He wasruled in NSTEMI, started on heparin drip and transferred to [facility]. He wasobserved and pain resolved on medical therapy (per records). He was discharged.He was seen by cardiology services (Dr. Celis) as outpatient and underwentelective coronary angiogram on 08/09/22 at [facility] and showed multi-vesselcoronary artery disease, LAD (90 to 99% lesion),LCx proximal 90%, 95% obtusemarginal lesion, RCA (occluded proximal), LVEDP 12, LVEF 40%, severeanteroapical hypokinesis. [facility] was [facility] for considerationof CABG by Dr. João Powell. - Echo (08/10/23) - EF 35-39%, grade I diastolic dysfunction, moderate to severeAS, mild MR/TR- SCA to be reviewed by Dr. Powell and Dr. Deng to assess candidacy for CABGvs. PCI. The patient states does not want to have CABG and would prefer tohave PCI if recommended by his manager front office (Dr. Celis). NPO after midnightif consensus is PCI- On aspirin, atorvastatin 40mg daily, Imdur 30mg daily- On metoprolol XL 25mg BID- On SL nitroglycerin as needed for chest pain- On PT/OT/IS -- SUBJECTIVE -- CHIEF COMPLAINT:Severe multi-vessel coronary artery disease PATIENT NARRATIVE:Out of bed and in chair. He denies chest pain, shortness of breath,palpitations. He states does not want to undergo surgery and would prefer PCIif his manager front office (Dr. Celis) recommends it. No acute events overnight. -REVIEW OF SYSTEMS- GENERAL: Negative for fever, malaise, fatigue.EYES: Negative for blurry vision. No diplopia.EARS/NOSE/THROAT: Negative for sore throat. No otalgia. No rhinorrhea.RESPIRATORY: Negative for dyspnea or wheeze. No cough.CARDIOVASCULAR: Negative for chest pain or palpitations. No extremity swelling.GASTROINTESTINAL: Negative for abdominal pain or nausea. No emesis. No diarrhea.GENITOURINARY: Negative for dysuria, frequency, or urgency. No gross hematuria.MUSCULOSKELETAL: Negative for joint stiffness, pain, or arthralgias.SKIN: Negative for rashes. No pruritus.NEUROLOGICAL: Negative for headache. No vertigo. Denies paresthesias.PSYCHIATRIC: Negative for specific complaints. -- OBJECTIVE -- VITALS (08/11 06:53 - 08/12 06:53):Temperature C: 36.8 (36.7 - 36.9)Pulse Rate 90 (79 - 94)Respiratory rate: 19 (17 - 25)Blood pressure: 114/73 (98/59 - 122/73)Blood pressure source: Monitor I/Os (08/10 07:00 - 08/11 07:00):Net 700 Intake 700 -EXAM- OTHER: Constitutional: Well developed, well nourished patient, in no acute distress. Derm/Integumentary: Warm and dry with no rashes, sores, or lesions. HEENT: Eyes-sclera clear and white, symmetrical w/ no lag. ENT - Palate and gums pink, mucosa moist, no pallor/cyanosis. Neck: supple with no masses, no thyromegaly, No JVD. Respiratory: Clear to auscultation. Heart: S1S2+, Regular Rate and Rhythm, No murmurs, rubs, or gallops. Gastrointestinal: + Bowel Sounds all quadrants. Soft, nontender with no masses or organomegaly; No HJR. Musculoskeletal: Equal strength in all extremities. No weakness. Neurology: Alert and oriented X 3. Calm, cooperative affect. No focal deficits. Extremities: + peripheral pulses. No clubbing, cyanosis. No lower extremity edema. -- DATA -- MEDICATIONS ONDANSETRON HCL/PF 4 MG IV Q6H PRNcloNIDine HCL 0.1 MG PO Q8H PRNNITROGLYCERIN 0.4 MG SL Q5M PRNKETOTIFEN FUMARATE 1 DROP EACH EYE BID PRNMAG HYDROX/AL HYDROX/SIMETH 30 ML PO Q6H PRNtraMADol HCL 50 MG PO BID (PRN)ACETAMINOPHEN 650 MG PO Q4H PRNMETOPROLOL SUCCINATE 25 MG PO [id number] SODIUM 100 MG PO BIDLACTULOSE 30 ML PO BID PRNMETOPROLOL TARTRATE 5 MG IV Q6H PRNISOSORBIDE MONONITRATE 30 MG PO DAILYASPIRIN 81 MG PO DAILYONDANSETRON 4 MG PO Q6H PRNATORVASTATIN CALCIUM 40 MG PO BEDTIME -- ATTESTATION -- CARE ACTIVITIES / CARE COORDINATION: - I have reviewed the history and repeated the dee elements - I have seen and examined this patient - I have reviewed the progress in the clinical course since the lastexamination - I have discussed the patient's condition with other members of the care team ADDITIONAL DETAIL:Plan of care discussed with Dr. Gino Deng Signed in PatientKeeper by ANNETTE CHOW on 08/12/23 at 15:38 Cosigned by GINO DENG MD on 09/06/23 at 13:56 at 1356 at 1356ATTENTION EDITS and/or ADDENDA must be made in Patient Keeper for this note. Edits and ammendments created in [employer] are not visible in Patient Keeper or the legal medical record ([facility]). RPT #: [id number] OF REPORTPRProgress [id number]:46:00P.[id number]-[id number] ailable for patient [id number]:13:51 [facility] 2023-08-11 13:53:00 [id number] jMXxriWBh/qk164gnqYrI196+Sl5794-21-79O69:53:00 [facility] ([facility]) Hospitalist Progress Note REPORT #: [id number] REPORT STATUS: Signed DATE: 08/11/23 TIME: 1353 PATIENT: CHARLIE HART UNIT #: [id number] #: [id number] ROOM #: P.0417 BED: A : 35 AGE: 88 SEX: M ATTEND: Tony Gautam MD ADM AUTHOR: Tony Gautam MD ATTENTION EDITS and/or ADDENDA must be made in Patient Keeper for this note. Edits and ammendments created in [employer]apps are not visible in Patient Keeper or the legal medical record ([facility]). -- ASSESSMENT AND PLAN -- GENERAL ASSESSMENT: ASSESSMENT AND PLAN: 1. Recent non-ST segment elevation myocardial infarction, around July.S/p coronary angiogram 08/09 showing multivessel coronary artery disease,not amenable to percutaneous coronary intervention.LAD 90 to 99% lesion, left circumflex proximal 90%, 95% obtuse marginal lesion;Occluded proximal RCA. Left ventricular end-diastolic pressure 12;Left ventricular ejection fraction 40%, severe anteroapical hypokinesis.The patient is being admitted to [facility] for higher level of care.Given his multiple comorbidities, coronary intervention is being decided upon,percutaneous versus surgical.Optimized statin dose, continue aspirin and beta-blockers.Plavix was withheld only from 08/08. 2. Hypertension continue metoprolol. 3. Hyperlipidemia. Increased statins to high-dose for now. 4. Pulmonary hypertension 5. Benign prostatic hyperplasia. 6. 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 7. Chronic neck pain. Continue home dose of tramadol. ADDITIONAL COMMENTS:Coronary intervention being discussed, percutaneous versus surgical.Patient is desirous of nonsurgical intervention if possible.Patient and his daughter, Elizabeth, advised at bedside. -- SUBJECTIVE -- HPI: This 88-year-old gentleman has a past medical history significant forhypertension, pulmonary hypertension, Nonobstructive coronary artery disease, ischemic cardiomyopathy, with aprevious ejection fraction of 40 to 50%,hyperlipidemia, benign prostatic hyperplasia, vitamin B12 deficiency, Permanentpacemaker placement in November 2021.The patient was in his usual state of health until recently when he developedrecurrent chest pain, suggestive of angina.He was taken to the [place] emergency room on August 05, 2023 where he wasruled in for non-ST segment elevation myocardial infarction.He was started on heparin and transferred to [facility] where he wasobserved for a couple of days and improved on medical therapy.Echocardiogram showed apical wall motion abnormalities with preserved leftventricular ejection fraction.As the patient was doing well on medical management, [facility].He was seen by his primary manager front office, Dr Deyvi Celis and admitted forselective coronary angiogramon August 09, 2023 to [facility].This showed multivessel coronary artery disease,LAD 90 to 99% lesion, left circumflex proximal 90%, 95% obtuse marginal lesion;Occluded proximal RCA. Left ventricular end-diastolic pressure 12;Left ventricular ejection fraction 40%, severe anteroapical hypokinesis.He has been transferred to [facility] for consideration of CABG by Dr.Eyal Powell.When seen in the room the patient is awake alert and oriented and verbalizesthe above. PATIENT NARRATIVE: 08/10: The patient denies any chest pain or shortness of breath at this time.Denies any headache or dizziness.No nausea vomiting.labs pending.echo at the OSH shows:1. Left ventricle: The cavity size is normal. Wall thickness is normal.Systolic function is normal. The estimated ejection fraction is 50-54%.Regional wall motion abnormalities cannot be excluded. Grade I diastolicdysfunction.2. Atrial septum: No defect or patent foramen ovale is identified. He has been seen by the heart team.Given his multiple comorbidities, coronary intervention is being decided upon,percutaneous versus surgical.Plan of care discussed with the patient and his daughter, Elizabeth, at bedside. 08/11: Repeat echo over here shows:1. Left ventricle: The cavity size is normal. Wall thickness is normal.Systolic function is moderately reduced. The estimated ejection fractionis 35-39%. Wall motion is normal; there are no regional wall motionabnormalities. Grade I diastolic dysfunction.2. Aortic valve: Thefindings are consistent with moderate to severestenosis. The mean systolic gradient is 15 mm Hg. The valve area is 0.98cm 2.3. Mitral valve: The annulus is mildly to moderately calcified.Possible low flow low gradient aortic stenosis. Considerfurther evaluation with dobutamine stress echocardiogram.Patient is being evaluated by the consultants. Patient has expressed that the he would prefer getting surgery if his heartcould be taken care of percutaneously. Await final recommendations. -REVIEW OF SYSTEMS- GENERAL: fatigue and tiredness. no fever or chillsEYES: Negative for blurry vision. No diplopia.EARS/NOSE/THROAT: Negative for sore throat. No otalgia. No rhinorrhea. diminished hearing.RESPIRATORY: Negative for dyspnea or wheeze. No cough.CARDIOVASCULAR: chest painGASTROINTESTINAL: Negative for abdominal pain or nausea. No emesis. No diarrhea.GENITOURINARY: Negative for dysuria, frequency, or urgency. No gross hematuria.MUSCULOSKELETAL: neck painSKIN: Negative for rashes. No pruritus.NEUROLOGICAL: Negative for headache. No vertigo. Denies paresthesias.PSYCHIATRIC: Negative for specific complaints.ENDOCRINE: Negative for cold intolerance, heat intolerance, polyphagia, polydipsia, polyuria, weight change, fatigue. -- OBJECTIVE -- VITALS (08/10 13:53 - 08/11 13:53):Temperature C: 36.8 (36.3 - 37.2)Pulse Rate 79 (79 - 112)Respiratory rate: 22 (16 - 25)Blood pressure: 122/67 (85/53 - 122/81)Blood pressure source: Monitor I/Os (08/10 07:00 - 08/11 07:00):Armut 700Intake 700 -EXAM- GENERAL: Well developed, well nourished, in no apparent distress.HEAD: Normocephalic, atraumatic.EYES: PERRL, EOM intact, conjunctiva and sclera clear, without nystagmus, lids normal.EARS: markedly diminished hearing.NOSE: No deformity, no discharge, no inflammation, no lesions.MOUTH: Oropharynx without deformities or lesions, normal mucosa..NECK: No masses, no thyromegaly, no abnormal cervical nodes, trachea midline.CHEST: NANCY PPMLUNGS: Clear bilaterally with normal respiratory effort.HEART: RRR; II/ LUIS at LLSBABDOMEN: Soft, non-tender, no organomegaly, no masses noted.MUSCULOSKELETAL: No deformity, no scoliosis noted of thoracic or lumbar spine, joint ROM grossly normal, normal gait and station.EXTREMITIES: No clubbing, no cyanosis, no edema.NEUROLOGICAL: No focal deficits, cranial nerves II-XII grossly intact, normal sensation, normal reflexes, normal coordination, normal muscle strength, normal tone.PULSES: Pulses normal in all extremities. -- DATA -- MEDICATIONS ONDANSETRON HCL/PF 4 MG IV Q6H PRNmorphine SULFATE 1 MG IV Q4H PRNcloNIDine HCL 0.1 MG PO Q8H PRNNITROGLYCERIN 0.4 MG SL Q5M PRNKETOTIFEN FUMARATE 1 DROP EACH EYE BID PRNMAG HYDROX/AL HYDROX/SIMETH 30 ML PO Q6H PRNtraMADol HCL 50 MG PO BID (PRN)ACETAMINOPHEN 650 MG PO Q4H PRNMETOPROLOL SUCCINATE 25 MG PO [id number] SODIUM 100 MG PO BIDLACTULOSE 30 ML PO BID PRNMETOPROLOL TARTRATE 5 MG IV Q6H PRNISOSORBIDE MONONITRATE 30 MG PO DAILYASPIRIN 81 MG PO DAILYONDANSETRON 4 MG PO Q6H PRNATORVASTATIN CALCIUM 40 MG PO BEDTIME LABS CBC W/AUTO DIFF (08/10/23 15:49)WHITE BLOOD CELL 8.3RED BLOOD CELL 3.28 LHEMOGLOBIN 11.8L LHEMATOCRIT 35.7L LMEAN CELL VOLUME 108.8 HMEAN CELL HGB 36.0 HMEAN CELL HGB CONCENTRATION 33.1RED CELL DISTRIBUTION WIDTH 12.1 LPLATELET COUNT 172MEAN PLATELET VOLUME 8.9NEUTROPHIL % 71.3LYMPHOCYTE % 14.4 LMONOCYTE % 12.4 HEOSINOPHIL % 1.3BASOPHIL % 0.4NEUTROPHIL # 5.91LYMPHOCYTE # 1.19MONOCYTE # 1.03 HEOSINOPHIL # 0.11BASOPHIL # 0.03 COMPREHENSIVE METABOLIC PANEL (08/10/23 15:49)SODIUM 141POTASSIUM 4.3CHLORIDE 106CARBON DIOXIDE 28GLUCOSE 113 HBLOOD UREA NITROGEN 21GLOMERULAR FILTRATION RATE >=60 max estimate CREATININE 1.10TOTAL PROTEIN 6.0ALBUMIN 3.9CALCIUM 8.8BILIRUBIN TOTAL 1.9 HSGOT/AST 15SGPT/ALT 9 LALKALINE PHOSPHATASE 57.0 -- QUALITY -- -MEDICATIONS- - I attest that the foregoing medication list in the medical record is true,accurate, and complete to the best of my knowledge. -- ATTESTATION -- CARE ACTIVITIES / CARE COORDINATION: - I have reviewed the history and repeated the dee elements - I have seen and examined this patient - I have reviewed the progress in the clinical course since the lastexamination - I have discussed the patient's condition with other members of the care team Signed in PatientKeeper by Tony Gautam MD on 08/11/23 at 14:25 at 1425ATTENTION EDITS and/or ADDENDA must be made in Patient Keeper for this note. Edits and ammendments created in [employer] are not visible in Patient Keeper or the legal medical record ([facility]). RPT #: [id number] OF REPORTPRProgress [id number]:53:00P.[id number]-[id number] ailable for patient [id number]:26:21 [facility] 2023-08-11 08:30:00 [id number]+fivOCMg3jH +wcaYIOCrH+HZ2C0DEoPLSz1+2t1378-20-64I48:30:00 [facility] ([facility]) Cardiology Progress Notes REPORT #: [id number] REPORT STATUS: Signed DATE: 08/11/23 TIME: 829 PATIENT: CHARLIE HART UNIT #: [id number] #: [id number] ROOM #: P.0418 BED: A : 35 AGE: 88 SEX: M ATTEND: Tony Gautam MD ADM AUTHOR: Annette Chwo ATTENTION EDITS and/or ADDENDA must be made in Patient Keeper for this note. Edits and ammendments created in [employer] are not visible in Patient Keeper or the legal medical record ([facility]). -- CO-SIGNATURE -- COMMENTS:The patient was seen on rounds with PHILIPPE Prabhakar. The patient has no complaints Examination demonstrates normal heart sounds with murmur and clear lung stanley. Impression and plan The patient is an 88-year-old gentleman with coronary artery disease and an EFbetween 40 to 50% from the outside records with anterior hypokinesis who wastransferred here for possible bypass surgery. I have reviewed the films withcardiac surgery. We will discuss his case in high risk conference. Signed in PatientKeeper by GINO DENG MD on 09/06/23 at 13:53 -- ASSESSMENT AND PLAN -- PROBLEMS: 1: Multiple vessel coronary artery diseaseA/P: The patient is an 88-year-old gentleman (patient of Dr. Deyvi Celis) hasa PMHx of hypertension, pulmonary hypertension, NICMP, HFrEF (EF 40 to 50%),hyperlipidemia, BPH, vitamin B12 deficiency, PPM placement (11/2021). Hedeveloped recurrent chest pain, suggestive of angina, and presented at [facility] emergency room on 08/05/22 for further evaluation and management. He wasruled in NSTEMI, started on heparin drip and transferred to [facility]. He wasobserved and pain resolved on medical therapy (per records). He was discharged.He was seen by cardiology services (Dr. Celis) as outpatient and underwentelective coronary angiogram on 08/09/22 at [facility] and showed multi-vesselcoronary artery disease, LAD (90 to 99% lesion),LCx proximal 90%, 95% obtusemarginal lesion, RCA (occluded proximal), LVEDP 12, LVEF 40%, severeanteroapical hypokinesis. He was transferred [facility] to [facility] for considerationof CABG by Dr. João Powell. - Echo (08/10/23) - EF 35-39%, grade I diastolic dysfunction, moderate to severeAS, mild MR/TR - SCA to be reviewed by Dr. Powell and Dr. Deng to assess candidacy for CABGvs. PCI. Per CV surgery, the patient prefers to not have CABG- On aspirin, atorvastatin 40mg daily, Imdur 30mg daily- On metoprolol XL 25mg BID- On SL nitroglycerin as needed for chest pain- On PT/OT/IS -- SUBJECTIVE -- CHIEF COMPLAINT:Severe multi-vessel coronary artery disease PATIENT NARRATIVE:Sitting in bed. He denies chest pain, shortness of breath, palpitations. Seenby CV surgery. No acute events overnight. -REVIEW OF SYSTEMS- GENERAL: Negative for fever, malaise, fatigue.EYES: Negative for blurry vision. No diplopia.EARS/NOSE/THROAT: Negative for sore throat. No otalgia. No rhinorrhea.RESPIRATORY: Negative for dyspnea or wheeze. No cough.CARDIOVASCULAR: Negative for chest pain or palpitations. No extremity swelling.GASTROINTESTINAL: Negative for abdominal pain or nausea. No emesis. No diarrhea.GENITOURINARY: Negative for dysuria, frequency, or urgency. No gross hematuria.MUSCULOSKELETAL: Negative for joint stiffness, pain, or arthralgias.SKIN: Negative for rashes. No pruritus.NEUROLOGICAL: Negative for headache. No vertigo. Denies paresthesias.PSYCHIATRIC: Negative for specific complaints. -- OBJECTIVE -- VITALS (08/10 07:43 - 08/11 07:43):Temperature C: 36.3 (36.3 - 37.2)Pulse Rate 79 (76 - 112)Respiratory rate: 19 (16 - 33)Blood pressure: 118/68 (85/53 - 140/81)Blood pressure source: Monitor I/Os (08/10 07:00 - 08/11 07:00):William HerringIntdarian 700 -EXAM- OTHER: Constitutional: Well developed, well nourished patient, in no acute distress. Derm/Integumentary: Warm and dry with no rashes, sores, or lesions. HEENT: Eyes-sclera clear and white, symmetrical w/ no lag. ENT - Palate and gums pink, mucosa moist, no pallor/cyanosis. Neck: supple with no masses, no thyromegaly, No JVD. Respiratory: Clear to auscultation. Heart: S1S2+, Regular Rate and Rhythm, No murmurs, rubs, or gallops. Gastrointestinal: + Bowel Sounds all quadrants. Soft, nontender with no masses or organomegaly; No HJR. Musculoskeletal: Equal strength in all extremities. No weakness. Neurology: Alert and oriented X 3. Calm, cooperative affect. No focal deficits. Extremities: + peripheral pulses. No clubbing, cyanosis. No lower extremity edema. -- DATA -- MEDICATIONS ONDANSETRON HCL/PF 4 MG IV Q6H PRNmorphine SULFATE 1 MG IV Q4H PRNcloNIDine HCL 0.1 MG PO Q8H PRNNITROGLYCERIN 0.4 MG SL Q5M PRNKETOTIFEN FUMARATE 1 DROP EACH EYE BID PRNMAG HYDROX/AL HYDROX/SIMETH 30 ML PO Q6H PRNtraMADol HCL 50 MG PO BID (PRN)ACETAMINOPHEN 650 MG PO Q4H PRNMETOPROLOL SUCCINATE 25 MG PO [id number] SODIUM 100 MG PO BIDLACTULOSE 30 ML PO BID PRNMETOPROLOL TARTRATE 5 MG IV Q6H PRNISOSORBIDE MONONITRATE 30 MG PO DAILYASPIRIN 81 MG PO DAILYONDANSETRON 4 MG PO Q6H PRNATORVASTATIN CALCIUM 40 MG PO BEDTIME LABS CBC W/AUTO DIFF (08/10/23 15:49)WHITE BLOOD CELL 8.3RED BLOOD CELL 3.28 LHEMOGLOBIN 11.8L LHEMATOCRIT 35.7L LMEAN CELL VOLUME 108.8 HMEAN CELL HGB 36.0 HMEAN CELL HGB CONCENTRATION 33.1RED CELL DISTRIBUTION WIDTH 12.1 LPLATELET COUNT 172MEAN PLATELET VOLUME 8.9NEUTROPHIL % 71.3LYMPHOCYTE % 14.4 LMONOCYTE % 12.4 HEOSINOPHIL % 1.3BASOPHIL % 0.4NEUTROPHIL # 5.91LYMPHOCYTE # 1.19MONOCYTE # 1.03 HEOSINOPHIL # 0.11BASOPHIL # 0.03 COMPREHENSIVE METABOLIC PANEL (08/10/23 15:49)SODIUM 141POTASSIUM 4.3CHLORIDE 106CARBON DIOXIDE 28 GLUCOSE 113 HBLOOD UREA NITROGEN 21GLOMERULAR FILTRATION RATE >=60 max estimateCREATININE 1.10TOTAL PROTEIN 6.0ALBUMIN 3.9CALCIUM 8.8BILIRUBIN TOTAL 1.9 HSGOT/AST 15SGPT/ALT 9 LALKALINE PHOSPHATASE 57.0 -- ATTESTATION -- CARE ACTIVITIES / CARE COORDINATION: - I have reviewed the history and repeated the dee elements - I have seen and examined this patient - I have reviewed the progress in the clinical course since the lastexamination - I have discussed the patient's condition with other members of the care team ADDITIONAL DETAIL:Plan of care discussed with Dr. Gino Deng Signed in PatientKeeper by ANNETTE CHOW on 08/11/23 at 15:15 Cosigned by GINO DENG MD on 09/06/23 at 13:53 at 1353 at 1353ATTENTION EDITS and/or ADDENDA must be made in Patient Keeper for this note. Edits and ammendments created in [facility] are not visible in Patient Keeper or the legal medical record (HPF). [facility] #: [id number] OF REPORTPRProgress [id number]:30:00P.[id number] ailable for patient [id number]:13:48 [facility] 2023-08-11 07:46:00 [id number] [id number]:46:22816 5-0004 [place], [place] [address]PATIENT NAME: CHARLIE HART ADMIT DATE: 08/09/23ACCOUNT NO: [id number] ROOM NO: P.0427 AGE: 88 REPORT TYPE: eECHOCARDIOGRAM REPORT SEX: M ADMITTING PHYSICIAN: Tony Gautam MD ATTENDING PHYSICIAN: Tony Gautam MD *[facility]*[address] [place] [id number] Transthoracic Echocardiogram Patient: Partha Hartudy Date: 08/10/2023P:URN: [id number]: [id number]#: [id number]: 5Age: 88Gender: MHeight: 68 in / 172.7 cmWeight: 167 lb / 75.8 kgBMI/BSA: 25.4 kg/m 2 / 1.92 m 2*Ordering Physician: * Nj Oliva Cf1 *Interpreting Physician: * Cyril Umana MD*On Site Construction Superintendent: * Mindy Chaudhry Indications: Chest Pain, unspecified. Study data: Transthoracic echocardiogram. Complete 2D, complete spectralDoppler, and color Doppler. Location: Bedside. Patient room number: 427. Findings Left ventricle: The cavity size is normal. Wall thickness is normal.Systolic function is moderately reduced. The estimated ejection fraction is35-39%. Wall motion is normal; there are no regional wall motionabnormalities. Grade I diastolic dysfunction.Right ventricle: The cavity size is normal. Systolic function is normal.Left atrium: The atrium is normal in size.Right atrium: The atrium is normal in size.Aorta: PATIENT NAME: CHARLIE HART Aortic root: The root is normal-sized.Aortic valve: The valve is trileaflet. The leaflets are moderatelycalcified. The findings are consistent with moderate to severe stenosis.There is mild regurgitation.Mitral valve: The annulus is mildly to moderately calcified. There is noevidence of stenosis. There is mild regurgitation.Tricuspid valve: The valve is structurally normal. The leaflets are normalthickness. There is mild regurgitation.Pulmonic valve: The valve is structurally normal. The leaflets are normalthickness. There is trivial regurgitation.Pericardium: There is no pericardial effusion.Pulmonary arteries: The main pulmonary artery is normal-sized. Systolicpressure is estimated to be 35 mm Hg.Systemic veins:Inferior vena cava: The IVC is normal-sized. Measurements Left ventricle Value Ref BHAVESH, LAX 5.3 cm 4.2 - 5.8 ESD, LAX 3.8 cm 2.5 - 4.0 FS, LAX 28 % 25 - 43 BHAVESH major ax, A2C 8.3 cm --------- ESD major ax, A2C 8.0 cm --------- IVS, ED 1.1 cm 0.6 - 1.0 ESD 3.8 cm 2.5 - 4.0 FS 28 % 25 - 43 PW, ED 0.9 cm 0.6 - 1.0 IVS/PW, ED 1.22 --------- EF 53 % 52 - 72 Mass 239 g 96 - 200 Mass/bsa 125 g/m 2 50 - 102 Mass/ht 2.7 54.60 g/m 2.7 --------- EF, MM on 2D Teich. 53 % >=55 E', lat demetrio, TDI 11.4 cm/sec >=10.0 E/e', lat demetrio, TDI 4 <=13 E', med demetrio, TDI 4.4 cm/sec >=7.0 E/e', med demetrio, TDI 11 --------- E', avg, TDI 7.9 cm/sec --------- E/e', avg, TDI 6 <=14 LVOT Value Ref Diam, S 2.06 cm --------- Area 3.3 cm 2 --------- Peak yan, S 0.89 m/sec --------- Mean yan, S 0.57 m/sec --------- VTI, S 15.6 cm --------- Peak grad, S 3 mm Hg --------- Mean grad, S 2 mm Hg --------- SV 52 ml --------- SV/bsa 27 ml/m 2 --------- Right ventricle Value Ref PATIENT NAME: CHARLIE HART Pressure, S 18 mm Hg --------- Left atrium Value Ref LA ID 3.2 cm --------- AP dim, ES 3.2 cm 3.0 - 4.0 AP dim ES, LAX 3.2 cm 3.0 - 4.0 SI dim ES, LAX 3.2 cm --------- Vol/bsa, S 16 ml/m 2 16 - 34 Vol, ES, 2-p 32 ml --------- Vol/bsa, ES, 2-p 17 ml/m 2 16 - 34 LA/Ao root ratio 0.83 --------- AP dim, ES MM 3.2 cm 3.0 - 4.0 LA/Ao root ratio, MM 1 --------- Aortic valve Value Ref Peak v, S 2.7 m/sec --------- Mean v, S 1.79 m/sec --------- VTI, S 50.3 cm --------- Mean grad, S 15 mm Hg --------- Peak grad, S 28.7 mm Hg --------- LVOT/AV, VTI ratio 0.31 --------- VALERIE, VTI 0.98 cm 2 --------- LVOT/AV, Vpeak ratio 0.33 --------- VALERIE, Vmax 1.03 cm 2 --------- Mitral valve Value Ref Mean v, D 0.61 m/sec --------- Peak E 0.08 m/sec --------- Peak A 1.2 m/sec --------- VTI leaflet coapt 33.0 cm --------- MiV/LVOT VTI 2.1 --------- Decel time 221 ms --------- PHT 78 ms --------- Mean grad, D 2 mm Hg --------- Peak grad, D 8.6 mm Hg --------- Peak E/A ratio 0.41 --------- MVA, PHT 2.8 cm 2 --------- Tricuspid valve Value Ref TR peak v 2.6 m/sec <=2.8 Peak RV-RA grad, S 26 mm Hg --------- Aortic root Value Ref Root diam 3.9 cm 2.6 - 4.1 Root diam, ED MM 3.2 cm --------- Ascending aorta Value Ref AAo AP diam, S 2.6 cm --------- Pulmonary artery Value Ref Pressure, S 15.3 mm Hg --------- Systemic veins Value Ref Estimated CVP 3 mm Hg --------- PATIENT NAME: CHARLIE HART Conclusions Summary: 1. Left ventricle: The cavity size is normal. Wall thickness is normal. Systolic function is moderately reduced. The estimated ejection fraction is 35-39%. Wall motion is normal; there are no regional wall motion abnormalities. Grade I diastolic dysfunction.2. Aortic valve: The findings are consistent with moderate to severe stenosis. The mean systolic gradient is 15 mm Hg. The valve area is 0.98 cm 2.3. Mitral valve: The annulus is mildly to moderately calcified.Impressions: Possible low flow low gradient aortic stenosis. Considerfurther evaluation with dobutamine stress echocardiogram.Electronically signed by Cyril Umana MD08/11/2023 07:46 at 0746 PATIENT NAME: CHARLIE HART :46:0 0P.[id number] for patient [id number]:46:47 [facility] 2023-08-10 13:18:00 [id number]/[id number] OEsBqWFmdb5Y+GuCHBtbmauMIOE9117-59-41Q24:18:00 [facility] ([facility]) Hospitalist Progress Note REPORT #: [id number] REPORT STATUS: Signed DATE: 08/10/23 TIME: 1318 PATIENT: CHARLIE HART UNIT #: [id number] #: [id number] ROOM #: P.[facility] BED: A : 35 AGE: 88 SEX: M ATTEND: Tony Gautam MD ADM AUTHOR: Tony Gautam MD ATTENTION EDITS and/or ADDENDA must be made in Patient Keeper for this note. Edits and ammendments created in [employer] are not visible in Patient Keeper or the legal medical record (HPF). -- ASSESSMENT AND PLAN -- GENERAL ASSESSMENT: ASSESSMENT AND PLAN: 1. Recent non-ST segment elevation myocardial infarction, around July.S/p coronary angiogram 08/09 showing multivessel coronary artery disease,not amenable to percutaneous coronary intervention.LAD 90 to 99% lesion, left circumflex proximal 90%, 95% obtuse marginal lesion;Occluded proximal RCA. Left ventricular end-diastolic pressure 12;Left ventricular ejection fraction 40%, severe anteroapical hypokinesis.The patient is being admitted to [facility] for higher level of care.Given his multiple comorbidities, coronary intervention is being decided upon,percutaneous versus surgical.Optimized statin dose, continue aspirin and beta-blockers.Plavix was withheld only from 08/08. 2. Hypertension continue metoprolol. 3. Hyperlipidemia. Increased statins to high-dose for now. 4. Pulmonary hypertension 5. Benign prostatic hyperplasia. 6. 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 7. Chronic neck pain. Continue home dose of tramadol. CONSULTANTS:Dr. João Powell of cardiothoracic surgery.Dr. Gino Deng of cardiology. ADDITIONAL COMMENTS: Coronary intervention being discussed, percutaneous versus surgical.Patient and his daughter, Elizabeth, advised at bedside. -- SUBJECTIVE -- HPI: This 88-year-old gentleman has a past medical history significant forhypertension, pulmonary hypertension,Nonobstructive coronary artery disease, ischemic cardiomyopathy, with aprevious ejection fraction of 40 to 50%,hyperlipidemia, benign prostatic hyperplasia, vitamin B12 deficiency, Permanentpacemaker placement in November 2021.The patient was in his usual state of health until recently when he developedrecurrent chest pain, suggestive of angina.He was taken to the [place] emergency room on August 05, 2023 where he wasruled in for non-ST segment elevation myocardial infarction.He was started on heparin and transferred to [facility] where he wasobserved for a couple of days and improved on medical therapy.Echocardiogram showed apical wall motion abnormalities with preserved leftventricular ejection fraction.As the patient was doing well on medical management, [facility].He was seen by his primary manager front office, Dr Deyvi Celis and admitted forselective coronary angiogramon August 09, 2023 to [facility].This showed multivessel coronary artery disease,LAD 90 to 99% lesion, left circumflex proximal 90%, 95% obtuse marginal lesion;Occluded proximal RCA. Left ventricular end-diastolic pressure 12;Left ventricular ejection fraction 40%, severe anteroapical hypokinesis.He has been transferred to [facility] for consideration of CABG by Dr.Eyal Powell.When seen in the room the patient is awake alert and oriented and verbalizesthe above. PATIENT NARRATIVE: 08/10: The patient denies any chest pain or shortness of breath at this time.Denies any headache or dizziness.No nausea vomiting.labs pending.echo at the OSH shows:1. Left ventricle: The cavity size is normal. Wall thickness is normal.Systolic function is normal. The estimated ejection fraction is 50-54%.Regional wall motion abnormalities cannot be excluded. Grade I diastolicdysfunction.2. Atrial septum: No defect or patent foramen ovale is identified. He has been seen by the heart team.Given his multiple comorbidities, coronary intervention is being decided upon,percutaneous versus surgical.Plan of care discussed with the patient and his daughter, Elizabeth, at bedside. -REVIEW OF SYSTEMS- GENERAL: fatigue and tiredness. no fever or chillsEYES: Negative for blurry vision. No diplopia.EARS/NOSE/THROAT: Negative for sore throat. No otalgia. No rhinorrhea. diminished hearing.RESPIRATORY: Negative for dyspnea or wheeze. No cough.CARDIOVASCULAR: chest painGASTROINTESTINAL: Negative for abdominal pain or nausea. No emesis. No diarrhea.GENITOURINARY: Negative for dysuria, frequency, or urgency. No gross hematuria.MUSCULOSKELETAL: neck painSKIN: Negative for rashes. No pruritus.NEUROLOGICAL: Negative for headache. No vertigo. Denies paresthesias.PSYCHIATRIC: Negative for specific complaints.ENDOCRINE: Negative for cold intolerance, heat intolerance, polyphagia, polydipsia, polyuria, weight change, fatigue. -- OBJECTIVE -- VITALS (08/09 13:18 - 08/10 13:18):Temperature C: 37.1 (36.6 - 37.1)Temperature source: OralPulse Rate 83 (64 - 94)Respiratory rate: 25 (12 - 28)Blood pressure: 125/60 (86/60 - 140/77)Blood pressure source: Monitor I/Os (08/09 07:00 - 08/10 07:00):Net -250Output 250 -EXAM- GENERAL: Well developed, well nourished, in no apparent distress.HEAD: Normocephalic, atraumatic.EYES: PERRL, EOM intact, conjunctiva and sclera clear, without nystagmus, lids normal.EARS: markedly diminished hearing.NOSE: No deformity, no discharge, no inflammation, no lesions.MOUTH: Oropharynx without deformities or lesions, normal mucosa..NECK: No masses, no thyromegaly, no abnormal cervical nodes, trachea midline.CHEST: NANCY PPMLUNGS: Clear bilaterally with normal respiratory effort.HEART: RRR; II/ LUIS at LLSBABDOMEN: Soft, non-tender, no organomegaly, no masses noted.MUSCULOSKELETAL: No deformity, no scoliosis noted of thoracic or lumbar spine, joint ROM grossly normal, normal gait and station.EXTREMITIES: No clubbing, no cyanosis, no edema.NEUROLOGICAL: No focal deficits, cranial nerves II-XII grossly intact, normal sensation, normal reflexes, normal coordination, normal muscle strength, normal tone.PULSES: Pulses normal in all extremities. -- DATA -- MEDICATIONS ONDANSETRON HCL/PF 4 MG IV Q6H PRNmorphine SULFATE 1 MG IV Q4H PRNcloNIDine HCL 0.1 MG PO Q8H PRN NITROGLYCERIN 0.4 MG SL Q5M PRNKETOTIFEN FUMARATE 1 DROP EACH EYE BID PRNMAG HYDROX/AL HYDROX/SIMETH 30 ML PO Q6H PRNtraMADol HCL 50 MG PO BID (PRN)ACETAMINOPHEN 650 MG PO Q4H PRNMETOPROLOL SUCCINATE 25 MG PO [id number] SODIUM 100 MG PO BIDLACTULOSE 30 ML PO BID PRNMETOPROLOL TARTRATE 5 MG IV Q6H PRNISOSORBIDE MONONITRATE 30 MG PO DAILYASPIRIN 81 MG PO DAILYONDANSETRON 4 MG PO Q6H PRNATORVASTATIN CALCIUM 40 MG PO BEDTIME LABS COVID 19 INHOUS (08/09/23 16:31)COVID 19 INHOUSE AG NEGATIVE -- QUALITY -- -MEDICATIONS- - I attest that the foregoing medication list in the medical record is true,accurate, and complete to the best of my knowledge. -- ATTESTATION -- CARE ACTIVITIES / CARE COORDINATION: - I have reviewed the history and repeated the dee elements - I have seen and examined this patient - I have reviewed the progress in the clinical course since the lastexamination - I have discussed the patient's condition with other members of the care team Signed in PatientKeeper by Tony Gautam MD on 08/10/23 at 13:23 at 1323ATTENTION EDITS and/or ADDENDA must be made in Patient Keeper for this note. Edits and ammendments created in [employer] are not visible in Patient Keeper or the legal medical record (HPF). RPT #: [id number] OF REPORTPRProgress [id number]:18:00P.[id number] ailable for patient [id number]:24:03 [facility] 2023-08-10 08:50:00 [id number] [id number]+fPQpex9RUKc30xT8941-09-49U47:50:00 [facility] ([facility]) Cardiology Consultation REPORT #: [id number] REPORT STATUS: Signed DATE: 08/10/23 TIME: 0850 PATIENT: CHARLIE HART UNIT #: [id number] #: [id number] ROOM #: P.0427 BED: A : 35 AGE: 88 SEX: M ATTEND: Tony Gautam MD ADM AUTHOR: Nj Oliva DO CF ATTENTION EDITS and/or ADDENDA must be made in Patient Keeper for this note. Edits and ammendments created in [employer] are not visible in Patient Keeper or the legal medical record (HPF). -- CO-SIGNATURE -- COMMENTS:Seen and examined with curb hop Dr. Oliva. PE:NAD, alert and awakeRRR, no m/g/rCTAB 88-year-old male with a past medical history of hypertension, cardiomyopathy,hyperlipidemia, prostate cancer, pacemaker placement who was transferred forCABG evaluation. He was recently admitted to [facility] for an NSTEMI. Hefollowed up with his manager front office Dr. Celis who performed a left heartcatheterization on him on August 09 at [facility]. This showed severemultivessel coronary artery disease and he was transferred for possible CABG.plan to repeat echocardiogram here. I reviewed heart catheterization, patienthas TOE TRIMMER of the proximal RCA with collaterals from the left system. He also hasa TOE TRIMMER of the proximal LAD with very well-formed collaterals from the firstdiagonal which is a large vessel. There is also severe disease of the leftcircumflex and obtuse marginal branch. The patient appears to have excellenttargets for bypass. CV surgery is following. Will continue aspirin, highintensity statin, and beta-lois. Will proceed with heart team approach todecide on optimal revascularization strategy Signed in PatientKeeper by CYRIL UMANA MD on 08/11/23 at 08:43 -- ASSESSMENT AND PLAN -- PROBLEMS: 1: CAD (coronary artery disease)A/P: - Recent TTE: LVEF 50-54%. Regional wall motion abnormalities cannot beexcluded. Grade I diastolic dysfunction. No PFO.- CTS following for CABG eval- cont to monitor closely on tele- repeat TTE if not in system- D/w attending Dr. Umana -- HISTORY -- HPI:Mr. Hart is an 88yoWM w/ PMHx of HTN, Pulmonary HTN, NICM, HFrEF 40 to 50%, HLD, BPH, vitamin B12 deficiency, PPM November 2021 who was in his usual state ofhealth until recently when he developed recurrent chest pain, suggestive ofangina. He was taken to the [place] emergency room on August 05, 2023where he was ruled in for non-ST segment elevation myocardial infarction. Hewas started on heparin and transferred to [facility] where he wasobserved for a couple of days and improved on medical therapy. Echocardiogramshowed apical wall motion abnormalities with preserved left ventricularejection fraction. As the patient was doing well on medical management, he wasdischarged from the other hospital without intervention. [facility], Dr Deyvi Celis and admitted for selective coronaryangiogram on August 09, 2023 to [facility]. This showed multivessel coronaryartery disease, LAD 90 to 99% lesion, left circumflex proximal 90%, 95% obtusemarginal lesion; Occluded proximal RCA. Left ventricular end-diastolic rjbodfed25; Left ventricular ejection fraction 40%, severe anteroapical hypokinesis. Hehas been transferred [facility] for consideration of CABG by Dr.Eyal Powell. When seen in the room the patient is awake alert and oriented andverbalizes the above. He denies any chest pain or shortness of breath at thistime. Denies any headache or dizziness. No nausea vomiting. 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 to 50%, HLD, BPH, vitamin B12 deficiency,PPM November 2021 PAST SURGICAL HISTORY:[facility] 08/09/2023, [facility] November 2021 -- ALLERGIES/HOME MEDS -- ALLERGIES:No Known Allergies (UNKNOWN - Allergy) HOME MEDICATIONS:aspirin chewable tablet 81 MG PO DAILYAtorvastatin Tab (Lipitor Tab) 10 MG PO DAILYClopidogrel Tab (Plavix Tab) 75 MG PO DAILYFosamax tablet (alendronate) 70 MG PO L1YTwrkydsxsb Mononitrate Tab.ER (Imdur Tab) 30 MG PO DAILYMetoprolol Succinate XL Tab (Toprol XL Tab) 25 MG PO DAILYtraMADol Tab (Ultram Tab) 50 MG PO BIDtraMADol Tab.ER (NF) (Ultram Tab.ER (NF)) 150 MG PO DAILY -- SUBJECTIVE -- -REVIEW OF SYSTEMS- GENERAL: fatigue and tiredness. no fever or chillsEYES: Negative for blurry vision. No diplopia.EARS/NOSE/THROAT: Negative for sore throat. No otalgia. No rhinorrhea. diminished hearing.RESPIRATORY: Negative for dyspnea or wheeze. No cough.CARDIOVASCULAR: chest painGASTROINTESTINAL: Negative for abdominal pain or nausea. No emesis. No diarrhea.GENITOURINARY: Negative for dysuria, frequency, or urgency. No gross hematuria.MUSCULOSKELETAL: neck painSKIN: Negative for rashes. No pruritus.NEUROLOGICAL: Negative for headache. No vertigo. Denies paresthesias.PSYCHIATRIC: Negative for specific complaints. ENDOCRINE: Negative for cold intolerance, heat intolerance, polyphagia, polydipsia, polyuria, weight change, fatigue. -- OBJECTIVE -- VITALS (08/09 08:51 - 08/10 08:51):Temperature C: 37.1 (36.6 - 37.1)Temperature source: OralPulse Rate 83 (64 - 94)Respiratory rate: 18 (12 - 28)Blood pressure: 99/67 (86/62 - 134/77)Blood pressure source: Monitor I/Os (08/09 07:00 - 08/10 07:00):Net -250Output 250 -EXAM- GENERAL: Well developed, well nourished, in no apparent distress.HEAD: Normocephalic, atraumatic.EYES: PERRL, EOM intact, conjunctiva and sclera clear, without nystagmus, lids normal.EARS: markedly diminished hearing.NOSE: No deformity, no discharge, no inflammation, no lesions.MOUTH: Oropharynx without deformities or lesions, normal mucosa.NECK: No masses, no thyromegaly, no abnormal cervical nodes, trachea midline.CHEST: NANCY PPMLUNGS: Clear bilaterally with normal respiratory effort.HEART: RRR; II/ LUIS at LLSBABDOMEN: Soft, non-tender, no organomegaly, no masses noted.MUSCULOSKELETAL: No deformity, no scoliosis noted of thoracic or lumbar spine, joint ROM grossly normal, normal gait and station.EXTREMITIES: No clubbing, no cyanosis, no edema.NEUROLOGICAL: No focal deficits, cranial nerves II-XII grossly intact, normal sensation, normal reflexes, normal coordination, normal muscle strength, normal tone.PULSES: Pulses normal in all extremities. -- DATA -- MEDICATIONS ONDANSETRON HCL/PF 4 MG IV Q6H PRNmorphine SULFATE 1 MG IV Q4H PRNcloNIDine HCL 0.1 MG PO Q8H PRNNITROGLYCERIN 0.4 MG SL Q5M PRNMAG HYDROX/AL HYDROX/SIMETH 30 ML PO Q6H PRNtraMADol HCL 50 MG PO BID (PRN)ACETAMINOPHEN 650 MG PO Q4H PRNMETOPROLOL SUCCINATE 25 MG PO N00JQOOATNTEK SODIUM 100 MG PO BIDLACTULOSE 30 ML PO BID PRNMETOPROLOL TARTRATE 5 MG IV Q6H PRN ISOSORBIDE MONONITRATE 30 MG PO DAILYASPIRIN 81 MG PO DAILYONDANSETRON 4 MG PO Q6H PRNATORVASTATIN CALCIUM 40 MG PO BEDTIME LABS COVID 19 INHOUS (08/09/23 16:31)COVID 19 INHOUSE AG NEGATIVE Signed in PatientKeeper by Nj Oliva on 08/10/23 at 14:50 Cosigned by CYRIL UMANA MD on 08/11/23 at 08:43 at 0843 at 0843ATTENTION EDITS and/or ADDENDA must be made in Patient Keeper for this note. Edits and ammendments created in [facility] are not visible in Patient Keeper or the legal medical record (HPF). [facility] #: [id number] OF REPORTUDFgzkiemfuqjr1969-30-98J11:50:00P.PK-NO [id number] for patient krhdBSLADBPNHELRUN5316-32-78P90:44:54 [facility] 2023-08-09 16:44:00 [id number] t+nEQoCu1NRcdi3KoSSvlwwbvu2F4 Do9B+IQ/AZZ0mA7SGS5XeJ8HTyX0125-60-21Z98:44:00 [facility] ([facility]) Hospitalist Stephen Ferguson REPORT #: [id number] REPORT STATUS: Signed DATE: 08/09/23 TIME: 1643 PATIENT: CHARLIE HART UNIT #: [id number] #: [id number] ROOM #: P.[facility] BED: A : 35 AGE: 88 SEX: M ATTEND: Tony Gautam MD ADM AUTHOR: Tony Gautam MD ATTENTION EDITS and/or ADDENDA must be made in Patient Keeper for this note. Edits and ammendments created in [employer] are not visible in Patient Keeper or the legal medical record (HPF). -- HISTORY -- ADMISSION DATE:2023-08-09 CHIEF COMPLAINT:1. Angina pectoris.2. Severe multivessel coronary artery disease, not amenable to percutaneouscoronary intervention. The patient is being [facility] for[facility]ation of CABG HPI: This 88-year-old gentleman has a past medical history significant forhypertension, pulmonary hypertension,Nonobstructive coronary artery disease, ischemic cardiomyopathy, with aprevious ejection fraction of 40 to 50%,hyperlipidemia, benign prostatic hyperplasia, vitamin B12 deficiency, Permanentpacemaker placement in November 2021.The patient was in his usual state of health until recently when he developedrecurrent chest pain, suggestive of angina.He was taken to the [place] emergency room on August 05, 2023 where he wasruled in for non-ST segment elevation myocardial infarction.He was started on heparin and transferred to [facility] where he wasobserved for a couple of days and improved on medical therapy.Echocardiogram showed apical wall motion abnormalities with preserved leftventricular ejection fraction.As the patient was doing well on medical management, [facility].He was seen by his primary manager front office, Dr Deyvi Celis and admitted forselective coronary angiogramon August 09, 2023 to [facility].This showed multivessel coronary artery disease,LAD 90 to 99% lesion, left circumflex proximal 90%, 95% obtuse marginal lesion;Occluded proximal RCA. Left ventricular end-diastolic pressure 12;Left ventricular ejection fraction 40%, severe anteroapical hypokinesis.He has been transferred to [facility] for consideration of CABG by Dr.Eyal Powell.When seen in the room the patient is awake alert and oriented and verbalizesthe above. PAST MEDICAL HISTORY: Hypertension Pulmonary hypertension Nonobstructive coronary artery disease, in the pastRecent non-ST segment elevation myocardial infarction, around August 054Recently diagnosed severe multivessel coronary artery disease Ischemic cardiomyopathy, previous ejection fraction 40 to 50% Hyperlipidemia Vitamin B12 deficiency Knee replacement surgery Hernia repair surgery Cholecystectomy Hip and shoulder replacement Prostate cancer Permanent pacemaker placement PAST SURGICAL HISTORY: as above FAMILY HISTORY:[place] -SOCIAL HISTORY- -TOBACCO USE- DETAILS/COMMENTS:none -VAPING/INHALED SOLVENTS- DETAILS/COMMENTS:none -ALCOHOL USE- DETAILS/COMMENTS:none MARITAL STATUS: LIVING SITUATION:home -- ALLERGIES/HOME MEDS -- ALLERGIES COMMENTS:NKDA HOME MEDICATIONS COMMENTS:Aspirin 81 mgPlavix 75 mg, just withheldMetoprolol 25 mgAlendronate 70 mg every weekAtorvastatin 10 mgIsosorbide mononitrate 30 mgTramadol 150 fnR36Kndkwfmn -- SUBJECTIVE -- -REVIEW OF SYSTEMS- GENERAL: fatigue and tiredness. no fever or chillsEYES: Negative for blurry vision. No diplopia.EARS/NOSE/THROAT: Negative for sore throat. No otalgia. No rhinorrhea. diminished hearing.RESPIRATORY: Negative for dyspnea or wheeze. No cough.CARDIOVASCULAR: chest painGASTROINTESTINAL: Negative for abdominal pain or nausea. No emesis. No diarrhea.GENITOURINARY: Negative for dysuria, frequency, or urgency. No gross hematuria.MUSCULOSKELETAL: neck painSKIN: Negative for rashes. No pruritus.NEUROLOGICAL: Negative for headache. No vertigo. Denies paresthesias.PSYCHIATRIC: Negative for specific complaints.ENDOCRINE: Negative for cold intolerance, heat intolerance, polyphagia, polydipsia, polyuria, weight change, fatigue. -- OBJECTIVE -- -EXAM- GENERAL: Well developed, well nourished, in no apparent distress.HEAD: Normocephalic, atraumatic.EYES: PERRL, EOM intact, conjunctiva and sclera clear, without nystagmus, lids normal.EARS: markedly diminished hearing.NOSE: No deformity, no discharge, no inflammation, no lesions.MOUTH: Oropharynx without deformities or lesions, normal mucosa..NECK: No masses, no thyromegaly, no abnormal cervical nodes, trachea midline.CHEST: NANCY PPMLUNGS: Clear bilaterally with normal respiratory effort.HEART: RRR; II/ LUIS at LLSBABDOMEN: Soft, non-tender, no organomegaly, no masses noted.MUSCULOSKELETAL: No deformity, no scoliosis noted of thoracic or lumbar spine, joint ROM grossly normal, normal gait and station. EXTREMITIES: No clubbing, no cyanosis, no edema.NEUROLOGICAL: No focal deficits, cranial nerves II-XII grossly intact, normal sensation, normal reflexes, normal coordination, normal muscle strength, normal tone.PULSES: Pulses normal in all extremities. -- DATA -- MEDICATIONS Acetaminophen Tab (Tylenol Tab) 650MG PO Q4H PRN pain 1-3/temp>100.5stopping on 09/08 at 18:01(DC'd) Acetaminophen Tab (Tylenol Tab) 500MG PO Q6H PRN pain 1-3/temp >100.5/headache stopping on 08/09 at 17:54Aspirin Chewable Tab (Aspirin Chewable Tab) 81MG PO DAILY stopping on 09/09at 09:01Atorvastatin Tab (Lipitor Tab) 40MG PO BEDTIME stopping on 09/08 at 21:01cloNIDine Tab (Catapres Tab) 0.1MG PO Q8H PRN sbp greater than 160 stoppingon 09/08 at 16:16Docusate Sodium Cap (Colace Cap) 100MG PO BID stopping on 09/08 at 21:01Isosorbide Mononitrate Tab.ER (Imdur Tab) 30MG PO DAILY stopping on 09/09 at09:01Lactulose Oral Liquid (Enulose Oral Liquid) 30ML PO BID PRN constipationstopping on 09/08 at 21:01Mag/Al/Simeth Oral Liquid (Maalox Max Oral Liquid) 30ML PO Q6H PRNindigestion/heartburn stopping on 09/08 at 16:16Metoprolol Succinate XL Tab (Toprol XL Tab) 25MG PO Q12HR stopping on 09/08 at21:01Metoprolol Tartrate Inj (Lopressor Inj) 5MG IV Q6H PRN see specialinstructions stopping on 09/08 at 18:01morphine Inj 1MG IV Q4H PRN pain breakthrough moderate stopping on 08/11 at18:01Nitroglycerin SL Tab (Nitrostat SL Tab) 0.4MG SL Q5M PRN chest pain stoppingon 09/08 at 18:01(DC'd) Ondansetron Inj (Zofran Inj) 4MG IV Q6H PRN nausea and vomitingstopping on 08/09 at 17:56Ondansetron Inj (Zofran Inj) 4MG IV Q6H PRN nausea and vomiting stopping on09/08 at 18:01Ondansetron ODT Tab (Zofran ODT Tab) 4MG PO Q6H PRN nausea and vomitingstopping on 09/08 at 18:01traMADol Tab (Ultram Tab) 50MG PO BID PRN pain scale 7-10 stopping on 09/08at 20:01 ADDITIONAL COMMENTS: 1. Left ventricle: The cavity size is normal. Wall thickness is normal.Systolic function is normal. The estimated ejection fraction is 50-54%.Regional wall motion abnormalities cannot be excluded. Grade I diastolicdysfunction.2. Atrial septum: No defect or patent foramen ovale is identified.Electronically signed by Deyvi Celis MD08/06/2023 17:28 -- ASSESSMENT AND PLAN -- GENERAL ASSESSMENT: ASSESSMENT AND PLAN: 1. Recent non-ST segment elevation myocardial infarction, around July.S/p coronary angiogram 08/09 showing multivessel coronary artery disease,not amenable to percutaneous coronary intervention.LAD 90 to 99% lesion, left circumflex proximal 90%, 95% obtuse marginal lesion;Occluded proximal RCA. Left ventricular end-diastolic pressure 12;Left ventricular ejection fraction 40%, severe anteroapical hypokinesis.The patient is being admitted to [facility] for higher level of care,consideration of surgical intervention by Dr. João Powell.Optimized statin dose, continue aspirin and beta-blockers.Plavix was withheld only from 08/08. 2. Hypertension continue metoprolol. 3. Hyperlipidemia. Increased statins to high-dose for now. 4. Pulmonary hypertension 5. Benign prostatic hyperplasia. 6. 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 7. Chronic neck pain. Continue home dose of tramadol. CONSULTANTS:Dr. João Powell of cardiothoracic surgery. ADDITIONAL COMMENTS:Plan of care discussed with the consultants.Orders entered in the electronic medical record system. -- QUALITY -- -MEDICATIONS- - I attest that the foregoing medication list in the medical record is true,accurate, and complete to the best of my knowledge. -- ATTESTATION -- TIME SPENT ON PATIENT CARE: - Direct 75 minutes - > 50% of time spent on Counseling/Care Coordination CARE ACTIVITIES / CARE COORDINATION: - I have reviewed the history and repeated the dee elements - I have seen and examined this patient - I have discussed the patient's condition with other members of the care team Signed in PatientKeeper by Tony Gautam MD on 08/11/23 at 13:52 at 1352ATTENTION EDITS and/or ADDENDA must be made in Patient Keeper for this note. Edits and ammendments created in [facility] are not visible in Patient Keeper or the legal medical record (HPF). [facility] #: [id number] OF REPORTHPHistory and physical qrhfwvilpgq6684-49-07H32:44:00P.TU-[id number] 200AVAvailable for patient mhonXDTEPGWHUERNJK6884-96-13X34:53:20 [facility] 2023-08-09 13:23:00 [id number] Opps8aQ1Q6mrZ5B6FISuLMf8aee1e 9/JsLi4cI5tlns4HxJdMAOyPBe84054-36-92C61:23:72409 4-[address] [address] PATIENT NAME: CHARLIE HART ADMIT DATE: 08/09/23ACCOUNT NO: [id number] ROOM NO: AGE: 88 REPORT TYPE: DISCHARGE SUMMARY SEX: M ADMITTING PHYSICIAN: ATTENDING PHYSICIAN: Deyvi Celis MD Cardiology ADMISSION DATE: 08/09/2023 07:15:00DISCHARGE DATE: REASON FOR DISCHARGE: The patient is being transferred to the [facility] for bypass later on this week. HOSPITAL COURSE: The patient came in this morning as an outpatient for left heart catheterization. Please see enclosed reports and earlier dictations. Thepatient did well after the procedure. He has been completely stable without anysymptoms. He has, however, severe coronary artery disease, is in a need of multivessel bypass. After discussion with the patient and the family and the surgeon in the [facility], it was decided best to transfer the patient while stable to the [facility] for bypass later on this week. The patient will be needing to be taken off Plavix and put on Lovenox for the next few days and then adjust his medications and then proceed with bypass, so the patient is being transferred electively to a [facility] bed for the planned bypass. This was alldiscussed in detail with the accepting physicians and the patient and his family. Dictated By: Deyvi Celis MD Date Dictated: 08/09/2023 13:23:31Date Transcribed: 08/10/2023 02:22:15SFD/Renetta #: [id number] ID: [id number] by Deyvi Celis MD On 08/10/2023 06:36:20 AM at 0636 PATIENT NAME: CHARLIE HART ipcshcu7675-75-50D23:22:00L.[id number] ilable for patient vjqlPCSOPXCVFUYNVR3591-88-60U84:37:00 [facility] 2023-08-09 10:27:00 [id number] uTOIfp3s+P90z5+QeB4GcFJ2OQavg EK7s12xq3GOb92uOGTNE9A50uMD1759-96-10Q37:27:71324 3-[address] [address] PATIENT NAME: CHARLIE HART ADMIT DATE: 08/09/23ACCOUNT NO: [id number] ROOM NO: AGE: 88 REPORT TYPE: OPERATIVE REPORT SEX: M ADMITTING PHYSICIAN: ATTENDING PHYSICIAN: Deyvi Celis MD Cardiology OPERATION DATE: 08/09/2023 SUPERVISOR CURED MEATS: Deyvi Celis MD TRAFFIC DIVISION COMMANDING OFFICER: PREOPERATIVE DIAGNOSIS: POSTOPERATIVE DIAGNOSIS: TITLE OF PROCEDURE: Left heart catheterization and selective left internal mammary artery angiogram. INDICATION FOR THE PROCEDURE: Recent non-ST wave myocardial infarction, high likelihood of significant coronary artery disease. ESTIMATED BLOOD LOSS: Minimal. COMPLICATIONS: None. CONTRAST: 50 mL. ANESTHESIA: Conscious sedation with Versed and fentanyl, 1% lidocaine for localanesthesia. FINAL DIAGNOSES: Heavily calcified arteries, severe 3-vessel coronary artery disease, dilated ischemic cardiomyopathy, ejection fraction around 40% with apical wall motion abnormality. Recommendation is urgent bypass. Also, the aorta was very tortuous and heavily calcified. DESCRIPTION OF PROCEDURE: After informed consent, the patient was brought to the cardiac catheterization lab in a stable fasting nonsedated state. He was prepped and draped in the usual sterile fashion. After conscious sedation, 1% lidocaine was administered to the right common femoral artery area for local anesthesia. A 6-Tajik sheath was placed in the right common femoral artery using standard techniques and fluoroscopy. After heparinization, left coronary angiogram showed heavily calcified artery. There was a very small ramus intermedius. The proximal LAD has a 90% lesion before a large diagonal. Then, the mid LAD is subtotal 99% long lesion. The distal LAD appears to be in good shape and there is good collaterals from the left to the right. Circumflex is diffusely diseased 90% proximal and 95% in the obtuse marginal. The right coronary angiogram showed an occluded vessel right at the proximal and is a long PATIENT NAME: CHARLIE HART occlusion. Selective STANLEY angiogram showed the STANLEY to be of good caliber, suitable for bypass. Left ventricular angiogram showed an ejection fraction around 40%. The anteroapical is severely hypokinetic. Left ventricular end-diastolic pressure was 12 and no aortic valve gradient. The right groin wassealed using Angio-Seal. The patient tolerated the procedure well. There were no complications. He was transferred to the holding area for observation and then will be getting surgical consultation and deciding on the plan of treatment. Dictated By: Deyvi Celis MD Date Dictated: 08/09/2023 10:27:56Date Transcribed: 08/09/2023 13:25:37SBRIANA/Brant #: [id number] ID: [id number] by Deyvi Celis MD On 08/09/2023 01:36:14 PM at 0136 PATIENT NAME: CHARLIE HART cxreox6024-13-20Z67:25:00L.[id number] lable for patient jnttXFWKSGDFZDELIF0645-05-64F61:36:44 [facility] 2023-08-09 07:47:00 [id number]/M 0hty99XTcuu2tLMPzXQYNLQfQnGxY 0D7PqeXII6pMJsJ+NbrZoZX1Qyt4054-88-44J73:47:40777 3-[address] [address] PATIENT NAME: CHARLIE HART ADMIT DATE: 08/09/23ACCOUNT NO: [id number] ROOM NO: AGE: 88 REPORT TYPE: eELECTROCARDIOGRAM SEX: M ADMITTING PHYSICIAN: ATTENDING PHYSICIAN: Deyvi Celis MD Order:[id number] Reason : PREOP Test Date/Time Stamp:FriAug 09 2023 07:47:55Blood Pressure : / mmHGVent. Rate : 063 BPM Atrial Rate : 063 BPM P-R Int : 168 ms QRS Dur : 190 ms QT Int : 512 ms P-R-T Axes : 039 -83 081 degrees QTc Int : 523 ms AV dual-paced rhythm with occasional ventricular-paced complexesAbnormal ECGNo previous ECGs availableConfirmed by DEYVI CELIS ([id number]) on 08/09/2023 9:51:43 AM Referred By: Deyvi Celis Confirmed by:DEYVI CELIS at 0951 PATIENT NAME: CHARLIE HART .[id number] AVAvailable for patient qhuzTLNYILHOBNYATS1499-17-16P06:51:55 [facility] 2023-08-08 07:19:00 [id number] Np5rZ5usm+p2llKt6W5xrRVOuDLG+ T4vSlpx8tyTICcdHKq07L+tsXBL0267-70-92X20:19:[address] [address] PATIENT NAME: CHARLIE HART ADMIT DATE: ACCOUNT NO: [id number] ROOM NO: AGE: 88 REPORT TYPE: PREOP HP REPORT SEX: M ADMITTING PHYSICIAN: ATTENDING PHYSICIAN: Deyvi Celis MD Cardiology PATIENT NAME: CHARLIE HART ADMIT DATE:08/09/2023DMISSION DATE: 08/09/2023 12:30:00 SUPERVISOR CURED MEATS: Deyvi Celis MD REASON FOR ADMISSION: Unstable angina, non-ST wave myocardial infarction, wallmotion abnormalities on the echo for cardiac catheterization and possiblerevascularization. HISTORY OF PRESENT ILLNESS: Charlie is an 88-year-old patient, who have beenfollowing in my office since 2006. The patient had a pacemaker implanted on12/15/2021 and has been doing well from that standpoint. He had a cardiac cathin 1991 that showed nonobstructive coronary artery disease. He was in his usualstate of health until recently, when on 08/04/2023, started having chest pains,looks like typical for angina. The pain got worse, so he went to [facility] Room on 08/05/2023 where he was ruled in for a non-ST wave myocardialinfarction. By that time, his chest pain was getting better. [facility], his pain resolvedon medical therapy. Echocardiogram; however, showed apical wall motionabnormalities, preserved ejection fraction. The patient appeared to have anon-ST wave myocardial infarction. The patient was not satisfied and his familywas at hospital, so he was discharged. I saw him in the office on 08/07/2023nd he is set up for outpatient cardiac catheterization on the 08/09/2023 toassess his coronaries, to assess for possible revascularization. He is havingmore tiredness and more dyspnea since this event. No congestive heart failure,TIAs or strokes. The patient has had history of mild carotid disease, normalpacemaker function as mentioned above, he has had mild aortic stenosis, mildmitral regurgitation. His last nuclear stress test was negative back in 2013,ejection fraction was 49%. His last cardiac catheterization as mentioned abovewas in 1991. PAST MEDICAL HISTORY: Remarkable for the above, in addition to pulmonaryhypertension, osteoarthritis, benign prostatic hyperplasia, and vitamin E89zsfcghuici. PAST SURGICAL HISTORY: He has had knee replacement, hernia, cholecystectomy,hip and shoulder replacement, prostate cancer, skin cancer, the above-mentionedpacemaker. ALLERGIES: NO KNOWN DRUG ALLERGIES. MEDICATIONS: Aspirin 81 mg daily, Plavix 75 mg daily, metoprolol 25 mg daily, PATIENT NAME: CHARLIE HART alendronate 70 mg, atorvastatin 10 mg daily, isosorbide 30 mg daily, leonkira020 mg daily, B12, and eyedrops. SOCIAL HISTORY: There is no history of smoking, alcohol or street drug use. FAMILY HISTORY: Negative for premature atherosclerosis. REVIEW OF SYSTEMS: Remarkable for the above, especially decreased hearing,generalized weakness, decreased appetite, easy bruisability, arthritis,difficulty balancing with poor coordination, uses a walker, may have had astroke in 1999, no residual. PHYSICAL EXAMINATION:GENERAL: Reveals a pleasant elderly male, in no acute distress.VITAL SIGNS: Blood pressure 102/76, pulse 62 and regular, respiratory rate 16and unlabored, temperature afebrile.HEENT: Head atraumatic, normocephalic. Eyes and ENT examination within normalfor age.NECK: Supple, no jugular venous distention, bruits or lymphadenopathy. Normalupstroke.LUNGS: Clear and resonant.HEART: Regular rate and rhythm, II/ systolic ejection murmur at the leftlower sternal border. No gallops.ABDOMEN: Soft, no tenderness, no organomegaly, no masses or bruits.EXTREMITIES: 2+ distal pulses. No edema, cyanosis or clubbing.NEUROLOGIC: Alert and oriented x3. Examination appears to be nonfocal. LABORATORY DATA: Pending. Laboratory data and cardiac evaluation from [facility] was reviewed. Noninvasive workup from my office is enclosed. IMPRESSION: This is an 88-year-old patient with extensive cardiac and medicalhistory as described above. The patient recently had a non-ST wave myocardialinfarction. He was stabilized on medical therapy. On his last procedurepacemaker, there were heavy calcifications in all the coronaries noted. Thepatient looks like suffered an LAD related myocardial infarction. He maybenefit from revascularization. PLAN: The recommendation and plan of treatment were discussed in detail withthe patient and his family members at bedside and he is willing to proceed.Rest as per orders. Dictated By: Deyvi Celis MD Date Dictated: 08/08/2023 07:19:23Date Transcribed: 08/08/2023 08:55:16SFD/LINDA/ANUJob #: [id number] ID: [id number] and Edited by Deyvi Celis MD On 08/08/23 5:22:53 PM PATIENT NAME: CHARLIE HART at 0523 PATIENT NAME: CHARLIE HART and physical uasqfwxdmxi1876-85-55U59:55:00L.[id number] VAvailable for patient knjqKBQQBQAXBUNJZZ9365-82-38Y04:25:56 [facility] 2023-08-07 09:15:00 [id number] Jh5zsoyk5hvPTa674bIo9hrcBqSyM wiooBHj6b6ucoVNlAcAFxQz2Pho0627-23-47B50:15:00 [facility] ([facility])Hospitalist Discharge SummaryREPORT#:[id number] REPORT STATUS: SignedREPORT INITIALIZATION DATE:08/07/23 TIME: 914 PATIENT: CHARLIE HART UNIT #: [id number]#: [id number] [facility] AGE[facility] 88 SEX: M ATTEND: Alvaro Ron MDADM AUTHOR: Osbaldo Stanley DO R2REPT SERVICE DT/TIME: 08/07/23914* ALL edits or amendments must be made on the electronic/computer document * Osbaldo Stanley 08/07/23 0915:General InformationProblem List/A P: 1. NSTEMI (non-ST elevated myocardial infarction) 2. Elevated troponin I level 3. 2nd degree AV block 4. CAD (coronary artery disease) 5. HTN (hypertension) 6. 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 Initial troponin at this facility was 1.510. His NSTEMI was treated medically. The pt's troponin downtrended and he was medically stable for discharge. He was told to follow up with Dr. Noble and Dr. Celis upon discharge. Consultants: cardiology Free Text DxA P NotesFree text DxA P notes:88M with PMHx 2nd degree AV block s/p pacemaker, HTN, HLD, CAD who presents as atransfer from OSH for NSTEMI. #NSTEMI Elevated Troponin Hx of CAD s/p pacemakerUpon presentation to this facility, Initial trop 1.510, down to 1.280 -> 0.962- Cardiology consulted per Dr. Noble, recommendations appreciated-- Medical management--- Lovenox 40 mg Q24H, ASA 81 mg- Continue home medications- Continue to monitor and adjust Hx of HTN Hx of HLD Hx of Osteoarthritis - Increased home metoprolol XL from 25mg to 50 qd-- Hypotensive episode overnight requiring Midodrine, BP WNL during the day-- Will defer to cardiology for recommendations- Continue home Ultram 50 BID PRN - Decreased home lipitor from 10mg to 5 qd PO, LDL - Continue home Imdur 30mg qd- Hold Plavix 75mg, on Lovenox 40 mg Q24H- Continue to monitor vitals, Code: FullDiet: CardiacDVT: LovenoxDispo: Likely home, pending cardiac clearanceNOK: Elizabeth Hart (daughter): [phone] Med Rec Med RecDischarge meds:Stop taking the following medications:CEPHALEXIN (KEFLEX) 500 MG CAP 500 MILLIGRAM ORAL EVERY 6 HOURS. Qty = 20 traMADol (ULTRAM) 50 MG TAB TWICE DAILY. as needed for PAIN Continue taking these medications:ALENDRONATE (FOSAMAX ONCE WEEKLY) 70 MG TAB 70 MILLIGRAM ORAL EVERY 7 DAYS. LOVASTATIN (MEVACOR) 10 MG TAB 10 MILLIGRAM ORAL BEDTIME. MAGNESIUM OXIDE (MAGNESIUM OXIDE) 250 MG TAB 250 MILLIGRAM ORAL DAILY. CLOPIDOGREL (PLAVIX) 75 MG TAB 75 MILLIGRAM ORAL DAILY. Qty = 30 ISOSORBIDE MONONITRATE SR (IMDUR) 30 MG TAB.SR.24H 30 MILLIGRAM ORAL DAILY. Qty = 1 METOPROLOL SUCC XL (TOPROL XL) 25 MG TAB.SR.24H 25 MILLIGRAM ORAL DAILY. Start taking the following new medications:ASPIRIN EC (ECOTRIN) 81 MG TAB.EC 81 MILLIGRAM ORAL DAILY. Qty = 30 No Refills ObjectiveVS/I OLast Documented: Result Date Time Pulse Ox 92 08/07 1000 B/P 96/55 08/07 1000 Pulse 75 08/07 1000 Resp 20 08/07 1000 Temp 36.5 08/07 0657 B/P Mean 85 08/07 0600 O2 Delivery Room air 08/05 0724 General appearance: alert, awake, orientedHead/Eyes: atraumatic, clear cornea, EOMI, normal conjunctiva/sclera, normal eyelids/periorb., normocephalic, PERRLENT: normal dentition, normal ear left, normal ear right, normal nose, normal pharynx, normal sinusNeck: full range of motion, non-tender, supple/no meningismusCardiovascular: murmur (soft systolic, RUSB), normal capillary refill, regular rate rhythm, Distant heart soundsRespiratory: clear to auscultation, no distressAbdomen: non-tender, normal bowel sounds, soft, no distention, no guarding, no hernia, no mass/organomegaly, no reboundGenitourinary: no flank pain, no urinary catheterExtremities: moves all, normal capillary refill, normal range of motion, no edemaMusculoskeletal: normal inspection, painless range of motionNeuro/BOARD WRITER: alert, oriented X 3, CNII-XII intactPsychiatry: normal affect, normal judgment/insight, normal mood, not homicidal, not suicidal Discharge Instructions PCPPCP follow-up:PCP: DOES_NOT KNOW Discharge to: Home/Self CareAdditional Discharge Routines: PCP Follow-Up, [employer] Follow-UpDiet: Resume Home Diet/FeedsActivity: As Tolerated Follow-up AppointmentsPCP follow-up: PCP: DOES_NOT KNOW PCP follow up timeframe: In 1-2 weeksConsulting provider 1: Provider 1: Kyree Noble MD Specialty: Cardiology Appt. date: 08/07/23 Special instructions:PLEASE FOLLOW UP WITH DR. CELIS THIS AFTERNOON FOR F/U Quality: Discharge Advanced Care Plan 65 or OlderDiscussed with: patient (full code) Current MedicationsCurrent medication review:I attest that the foregoing medication list in the medical record is true, accurate, and complete to the best of my knowledge. AttestationsAttestation needed: teaching physician Alvaro Ron 08/07/23 1646:Discharge InstructionsDischarge management: greater than 30 mins, face to face encounterTime spent: Time spent on patient care (minutes): 32 at 1551 at 1646 RPT #:[id number] OF REPORTDSDischarge dyujvrs6036-28-75J48:15:00Z.[id number] ailable for patient bmejJEOCJHOKSKAFBA4674-78-18W19:51:34 [facility] 2023-08-07 07:21:00 [id number] /4vx3Usb+a95hg8kOpHLCvpes9CpG riKhLb51JqyMxB798g4jCPx+RfY4179-86-38L34:21:00 [facility] ([facility])Cardiology Progress NoteREPORT#:[id number] REPORT STATUS: SignedREPORT INITIALIZATION DATE:08/07/23 TIME: 720 PATIENT: CHARLIE HART UNIT #: [id number]#: [id number] ROOM/BED: [facility]-ADOB: [birth year] AGE: 88 SEX: M ATTEND: Alvaro Ron MDADM AUTHOR: Kyree Noble MDREPT SERVICE DT/TIME: 08/07/23720* ALL edits or amendments must be made on the electronic/computer document * SubjectiveChief complaint:Chest painPatient reports:No: chest pain, palpitations, shortness of breath. Objective GeneralVS/I O:Vital Signs: Date Time Temp Pulse Resp B/P B/P Pulse O2 O2 Flow FiO2 Mean Ox Delivery Rate 08/07 0710 98 08/07 0700 112/53 08/07 0659 69 26 08/07 0657 97.7 08/07 0600 64 16 122/59 85 94 08/07 0500 67 22 107/63 80 96 08/07 0437 98.1 08/07 0400 65 17 102/59 75 94 08/07 0300 70 17 112/59 79 94 08/07 0230 72 19 106/63 80 93 08/07 0200 71 22 112/62 81 94 08/07 0131 64 15 121/63 84 93 08/07 0100 68 18 103/67 79 94 08/07 0000 66 18 118/59 81 93 08/06 2339 97.5 08/06 2327 73 23 118/68 82 95 08/06 2230 74 21 116/54 78 95 08/06 2130 63 15 115/57 81 94 08/06 2100 73 19 116/63 85 96 08/06 2030 66 08/06 2000 69 15 105/51 71 92 08/06 1942 97.9 08/06 1930 73 20 100/59 75 94 08/06 1903 79 12 131/69 94 99 08/06 1800 74 103/55 76 92 08/06 1700 78 99/60 75 100 08/06 1600 66 113/66 82 98 08/06 1515 98.8 08/06 1430 74 102/63 78 92 08/06 1301 82 89/59 69 96 08/06 1201 81 27 131/63 90 93 08/06 1124 99.0 08/06 1100 73 91/55 68 86 08/06 0917 99 08/06 0900 78 20 110/70 86 08/06 0830 93 08/06 0800 77 28 110/73 86 82 08/06 0738 99 PATIENT WEIGHT: Weight (lb): Weight (oz): Weight (kg): 75.000 Medications:Active Meds + DC'd Last 24 HrsClopidogrel Bisulfate (PLAVIX) 75 MG DAILY PO Aspirin (ASPIRIN EC) 81 MG DAILY PO Enoxaparin Sodium (LOVENOX) 40 MG Q24H SUBQ Metoprolol Succinate (TOPROL XL) 50 MG DAILY PO Atorvastatin Calcium (LIPITOR) 5 MG BEDTIME PO Isosorbide Mononitrate (IMDUR) 30 MG DAILY PO Tramadol HCl (ULTRAM) 50 MG Q12H PRN PRN PO Morphine Sulfate (morphine SULFATE (C-II)) 2 MG Q5M PRN PRN IV (DC) Nitroglycerin (NITROSTAT) 0.4 MG Q5M PRN PRN SL Physical ExamGeneral appearance: alert, awake, orientedHead/Eyes: atraumatic, normocephalicENT: moist mucosal membranesNeck: no JVDCardiovascular: CV assessment: regular rate and rhythmRespiratory: clear to auscultation, no distressLower extremity: LE assessment: no edemaMusculoskeletal: full range of motionNeuro/BOARD WRITER: alert, oriented X 3, CN II-XII intactSkin: dry, intactPsychiatry: normal affect, normal judgment/insight, normal mood Diagnosis, Assessment Plan Free Text DxA P NotesFree Text DxA P Notes:IMPRESSION: Precordial chest pain. Resolved. NSTEMI - Transient mild increase in troponin. No further chest pain. HTN HLP CAD PPM PLAN: Continue current medical rx with plavix added. Cardiac cleared for discharge. To f/u with Dr. Celis today. at 07[address] [facility] #:[id number] OF REPORTPRProgress wzys9752-68-82C51:21:00Z.MUYH60355947-6638ORCzcgu able for patient yuvrUEHTVJHUHRHXWC1656-26-96W19:41:57 [facility] 2023-08-07 05:15:00 [id number] appHzdb5MRNwn+fieXfXvrbGSWetL b3JpMcwEcvlWDPS0TavAQ8/mglH4245-42-13M58:15:91333 2-[address] [place] [address] PATIENT NAME: CHARLIE HART ADMIT DATE: 08/05/23ACCOUNT NO: [id number] ROOM NO: Z.363 AGE: 88 REPORT TYPE: ELECTROCARDIOGRAM SEX: M ADMITTING PHYSICIAN:Alvaro Ron MD ATTENDING PHYSICIAN:Alvaro Ron MD Order:[id number] Reason : CAD Test Date/Time Stamp:FriAug 07 2023 05:15:43Blood Pressure : / mmHGVent. Rate : 066 BPM Atrial Rate : 066 BPM P-R Int : 140 ms QRS Dur : 198 ms QT Int : 498 ms P-R-T Axes : 018 -79 086 degrees QTc Int : 522 ms Demand pacemaker, interpretation is based on intrinsic rhythmA-Sense Ventricular PacingAbnormal ECGWhen compared with ECG of 06-AUG-2023 09:06,No significant change was foundConfirmed by DEYVI CELIS ([id number]) on 08/08/2023 5:26:54 PM Referred By: Self Referred Confirmed by:DEYVI CELIS at 1726 PATIENT NAME: CHARLIE HART .[id number] AVAvailable for patient frciABPKRKABBEFONP1935Q35:27:12 [facility] 2023-08-06 17:28:00 [id number] KQ3RM2gKYlbAXSEEDBKLtxg/WpOZI kvnY8nKT0bFFbC3x4RDZ6cVwuCF1189-99-95K27:28:21209 0-[address] [address] PATIENT NAME: CHARLIE HART ADMIT DATE: 08/05/23ACCOUNT NO: [id number] ROOM NO: Z.363 AGE: 88 REPORT TYPE: ECHOCARDIOGRAM SEX: M ADMITTING PHYSICIAN:Alvaro Ron MD ATTENDING PHYSICIAN:Alvaro Ron MD *[facility]*[address] [place], [place] [address]Zrjvj Transthoracic Echocardiogram Patient: Charlie Hart Date: 08/05/2023P:URN: [id number]: [id number]#: [id number]: 1935ge: 88Gender: MHeight: 68 in / 172.7 cmWeight: 165 lb / 74.8 kgBMI/BSA: 25.1 kg/m 2 / 1.9 m 2*Ordering Physician: * Kyree Noble MD *Interpreting Physician: * Deyvi Celis MD*On Site Construction Superintendent: Jose D Yanes Indications: CAD. Study data: Transthoracic echocardiogram. Procedure: A transthoracicechocardiogram was performed. Images were obtained using a Cyntellect cardiacultrasound machine. Image quality was adequate. M-mode, complete 2D, completespectral Doppler, and color Doppler. Location: [facility]. Patient status:Inpatient. Patient room number: 363. Study status: Routine. Findings Left ventricle: The cavity size is normal. Wall thickness is normal. Systolicfunction is normal. The estimated ejection fraction is 50-54%. Regional wallmotion abnormalities cannot be excluded. Possible apical severe hypokinesis.Grade I diastolic dysfunction. PATIENT NAME: CHARLIE HART Right ventricle: Well visualized. The cavity size is normal. Wall thicknessis normal. Systolic function is normal.Ventricular septum: Well visualized. PSM PPI.Left atrium: Well visualized. The atrium is normal in size.Right atrium: Well visualized. The atrium is normal in size.Atrial septum: Well visualized. No defect or patent foramen ovale isidentified.Aorta:Aorta: The aorta is well visualized and normal-sized.Aortic valve: Well visualized. The valve is trileaflet. The leaflets aremoderately calcified. There is no evidence of stenosis. There is nosignificant regurgitation.Mitral valve: Well visualized. The leaflets are mildly thickened. There isno evidence of stenosis. There is mild regurgitation.Tricuspid valve: Well visualized. The leaflets are normal thickness. Thereis no evidence of stenosis. There is no significant regurgitation.Pulmonic valve: Not well visualized. The valve is structurally normal. Theleaflets are normal thickness. There is no evidence of stenosis. There isno regurgitation.Pericardium: There is no pericardial effusion. No evidence of pleuralfluid accumulation.Systemic veins:Inferior vena cava: The IVC is well visualized and normal-sized. Measurements Left ventricle Value Ref 12/14/2021 BHAVESH, LAX 3.5 cm 4.2 - 5.8 5.6 ESD, LAX 2.4 cm 2.5 - 4.0 3.7 FS, LAX 31 % 25 - 43 34 IVS, ED 1.0 cm 0.6 - 1.0 0.9 IVS, ES 1.3 cm --------- 1.4 PW, ED 1.0 cm 0.6 - 1.0 0.9 PW, ES 1.3 cm --------- 1.4 IVS/PW, ED 0.95 --------- 1.01 EF 60 % 52 - 72 63 LVOT Value Ref 12/14/2021 Diam, S 2.10 cm --------- Area 3.5 cm 2 --------- 3.0 Peak yan, S 0.59 m/sec --------- 1.53 Mean yan, S 0.42 m/sec --------- 1.15 VTI, S 12.1 cm --------- 56.0 Peak grad, S 1 mm Hg --------- 9 Mean grad, S 1 mm Hg --------- 6 SV 42 ml --------- 171 Qs 3.44 L/min --------- 5.72 Qs/bsa 1.8 L/(min-m 2) --------- 2.8 SV/bsa 22 ml/m 2 --------- 83 RVOT Value Ref 12/14/2021 Peak v, S 0.66 m/sec --------- Peak grad, S 2 mm Hg --------- 3 PATIENT NAME: CHARLIE HART Left atrium Value Ref 12/14/2021 AP dim, ES 2.6 cm 3.0 - 4.0 4.2 AP dim, ES MM 3.0 cm 3.0 - 4.0 LA/Ao root ratio, MM 0.9 --------- Aortic valve Value Ref 12/14/2021 Leaflet sep, MM 1.37 cm --------- Peak v, S 0 m/sec --------- 2.9 Mean v, S 1.68 m/sec --------- 1.97 VTI, S 46.5 cm --------- 83.2 Mean grad, S 13 mm Hg --------- 18 Peak grad, S 0.0 mm Hg --------- 33.9 LVOT/AV, VTI ratio 0.26 --------- 0.67 VALERIE, VTI 0.79 cm 2 --------- 2.01 LVOT/AV, Vpeak ratio 36.37 --------- 0.53 VALERIE, Vmax 126.38 cm 2 --------- 1.57 Mitral valve Value Ref 12/14/2021 Mean v, D 0.52 m/sec --------- 0.61 Peak E 0.64 m/sec --------- 1.54 Peak A 1.19 m/sec --------- 0.95 VTI leaflet coapt 41.5 cm --------- 62.1 MiV/LVOT VTI 3.4 --------- Decel time 179 ms --------- 251 Mean grad, D 1 mm Hg --------- 2 Peak grad, D 5.0 mm Hg --------- 13.8 Peak E/A ratio 0.54 --------- Aortic root Value Ref 12/14/2021 Root diam 2.9 cm 2.6 - 4.1 Root diam, ED MM 3.3 cm --------- Conclusions Summary: 1. Left ventricle: The cavity size is normal. Wall thickness is normal. Systolic function is normal. The estimated ejection fraction is 50-54%. Regional wall motion abnormalities cannot be excluded. Grade I diastolic dysfunction.2. Atrial septum: No defect or patent foramen ovale is identified.Electronically signed by Deyvi Celis MD08/06/2023 17:28 at 1728 PATIENT NAME: CHARLIE HART :28:0 0Z.[id number] for patient assbCBWOKVTXRNWPJX1820-81-52P88:28:30 [facility] 2023-08-06 10:46:00 [id number] BaNu61hL1cdwp3Rv3E3uTgN902Di/ 7uiSUS2CsfH37fuXQhfxQjP0l7s1613-77-15N04:46:00 [facility]Hospital[facility] Progress NoteREPORT#:[id number] REPORT STATUS: SignedREPORT INITIALIZATION DATE:08/06/23 TIME: 1045 PATIENT: CHARLIE HART UNIT #: [id number]#: [id number] ROOM/BED: [facility]-ADOB: [birth year] AGE: 88 SEX: M ATTEND: Alvaro Ron MDA AUTHOR: Osbaldo Stanley DO R2REPT SERVICE DT/TIME: 08/06/23 1046* ALL edits or amendments must be made on the electronic/computer document * Osbaldo Stanley 08/06/23 1046:SubjectiveChief complaint:Chest pain, NSTEMIHPI:88M with PMHx of 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 Per the ED physician, pt received full dose ASA and heparin at OSH but lab values, EKG and other data are not visible on this EMR. No other history from able to be obtained from events at OSH. Overnight, the pt was hypotensive. He was given Midodrine 5 mg. Today, the pt endorsed no complaints. Review of SystemsConstitutional:Denies: chills, fatigue, fever. Skin:Denies: contusion, diaphoresis, itching. Eyes:Denies: redness, discharge, visual loss/blurred. Respiratory:Denies: MENDOZA (dyspnea on exertion), productive cough (sputum), wheezing. Cardiovascular:Denies: chest pain, MENDOZA (dyspnea on exertion), orthopnea. GI:Denies: abdominal pain, constipation, diarrhea. :Denies: dysuria, hematuria, nocturia. Musculoskeletal:Denies: lumbar pain, neck pain, thoracic pain. Neuro:Denies: confusion, dizziness, headache. Psych:Denies: agitation, anxiety, confusion. All systems rev neg: except as noted Objective GeneralVS/I O:Vital Signs: Date Time Temp Pulse Resp B/P B/P Pulse O2 O2 Flow FiO2 Mean Ox Delivery Rate 08/06 1515 37.1 08/06 1124 37.2 08/06 0917 99 08/06 0900 78 20 110/70 86 08/06 0830 93 08/06 0800 77 28 110/73 86 82 08/06 0738 99 08/06 0702 36.5 08/06 0701 84 24 110/72 85 99 08/06 0624 76 19 107/70 98 08/06 0531 68 22 107/60 95 08/06 0508 36.4 08/06 0500 80 16 94/58 95 08/06 0430 78 15 101/58 95 08/06 0406 82 18 108/60 98 08/06 0334 86 26 134/67 08/06 0330 93 34 93/50 81 10 0300 74 18 85/52 94 10 0238 75 14 81/56 94 /10 0230 75 12 77/50 93 / 0200 78 21 93/54 95 08/06 0159 85 19 94/53 96 08/06 0155 88 16 100/59 96 / 0100 80 18 85/51 95 /10 0030 82 15 94/52 93 / 0003 36.4 08/05 2331 97 17 90/50 94 08/05 2200 112 20 100/65 94 08/05 2144 113 34 92/63 96 08/05 2140 109 21 91/62 98 08/05 1941 36.8 82 14 74.1 96 24 hour I O ending at 0700: 08/06 0700 08/05 1900 Intake Total 200 Output Total 100 Balance 100 Intake, Oral 200 Number 1 Bowel Movements Number Voids 1 Output, Urine 100 PATIENT WEIGHT: Weight (lb): Weight (oz): Weight (kg): 75.000 Medications:Active Meds + DC'd Last 24 HrsAspirin (ASPIRIN EC) 81 MG DAILY PO Enoxaparin Sodium (LOVENOX) 40 MG Q24H SUBQ Metoprolol Succinate (TOPROL XL) 50 MG DAILY PO Midodrine (PROAMATINE) 5 MG ONCE ONE PO (DC) Atorvastatin Calcium (LIPITOR) 5 MG BEDTIME PO Isosorbide Mononitrate (IMDUR) 30 MG DAILY PO Tramadol HCl (ULTRAM) 50 MG Q12H PRN PRN PO Morphine Sulfate (morphine SULFATE (C-II)) 2 MG Q5M PRN PRN IV Nitroglycerin (NITROSTAT) 0.4 MG Q5M PRN PRN SL Physical ExamGeneral appearance: alert, awake, orientedHead/Eyes: atraumatic, clear cornea, EOMI, normal conjunctiva/sclera, normal eyelids/periorb., normocephalic, PERRLENT: normal dentition, normal ear left, normal ear right, normal nose, normal pharynx, normal sinusNeck: full range of motion, non-tender, supple/no meningismusCardiovascular: murmur (soft systolic, RUSB), normal capillary refill, regular rate rhythm, Distant heart soundsRespiratory: clear to auscultation, no distressAbdomen: non-tender, normal bowel sounds, soft, no distention, no guarding, no hernia, no mass/organomegaly, no reboundGenitourinary: no flank pain, no urinary catheterExtremities: moves all, normal capillary refill, normal range of motion, no edemaMusculoskeletal: normal inspection, painless range of motionNeuro/BOARD WRITER: alert, oriented X 3, CNII-XII intactPsychiatry: normal affect, normal judgment/insight, normal mood, not homicidal, not suicidal ResultsFindings/Data:Laboratory Tests 08/06 0045 Chemistry Sodium (137 - 145 MMOL/L) 138 Potassium (3.5 - 5.1 MMOL/L) 4.1 Chloride (98 - 107 MMOL/L) 104 Carbon Dioxide (22 - 30 MMOL/L) 25 Anion Gap (14 - 24 MMOL/L) 13 L BUN (9 - 20 MG/DL) 18 Creatinine (0.66 - 1.25 MG/DL) 1.00 Glomerular Filtr Rate > 60 Glucose (74 - 106 MG/DL) 88 Calcium (8.4 - 10.2 MG/DL) 8.8 Troponin I (0.012 - 0.033 NG/ML) 0.962 *H Laboratory Tests 08/06 44 Coagulation INR (0.86 - 1.14) 1.3 H APTT (27.2 - 37.9 SECONDS) 27.8 PT Patient/Control Mix (10.1 - 12.6 SECONDS) 15.1 H Laboratory Tests 08/06 44 Hematology WBC (3.8 - 9.8 K/MM3) 7.4 RBC (3.95 - 5.67 M/MM3) 3.67 L Hgb (12.4 - 16.7 G/DL) 13.2 Hct (35.9 - 49.5 %) 38.4 MCV (81.7 - 96.1 fL) 105 H MCH (27.6 - 33.2 pg) 36.0 H MCHC (32.9 - 35.5 %) 34.4 RDW (12.1 - 15.2 %) 12.3 Plt Count (129 - 368 K/MM3) 178 MPV (7.4 - 10.4 fl) 9.1 Neut % (Auto) (43 - 75 %) 65.8 Lymph % (Auto) (14 - 44 %) 20.2 [place] % (Auto) (4 - 13 %) 10.5 Eos % (Auto) (0 - 6 %) 2.7 Baso % (Auto) (0 - 2 %) 0.5 Neut # (Auto) (2.0 - 7.6 K/mm3) 4.87 Lymph # (Auto) (1.0 - 3.8 K/mm3) 1.50 [place] # (Auto) (0.1 - 0.8 K/mm3) 0.78 Eos # (Auto) (0.0 - 0.2 K/mm3) 0.20 Baso # (Auto) (0.0 - 0.2 K/mm3) 0.04 Immature Gran % (0.0 - 2.0 %) 0.3 Nucleated RBC % (0 - 1.0 %) 0.0 Nucleated RBCs # (Man) (0.0 - 0.1 K/mm3) 0.00 Radiology data:Recent Impressions:CAT SCAN - CT HEAD/BRAIN W/O CONT 08/05 1849 Report Impression - Status: SIGNED Entered: 08/05/20232002 IMPRESSION: Senescent changes are demonstrated in this patient's brain as outlinedabove. No acute findings are seen. Right maxillary sinusitis is present. The vertebrobasilar anatomy is heavily calcified and tortuous.Impression By: GaneshRLA2 - Aquiles Wilson M.D. Diagnosis, Assessment PlanProblem List/A P: 1. NSTEMI (non-ST elevated myocardial infarction) 2. Elevated troponin I level 3. 2nd degree AV block 4. CAD (coronary artery disease) 5. HTN (hypertension) 6. HLD (hyperlipidemia) Consultants: cardiology Free Text DxA P NotesFree text DxA P notes:88M with PMHx 2nd degree AV block s/p pacemaker, HTN, HLD, CAD who presents as atransfer from OSH for NSTEMI. #NSTEMI Elevated Troponin Hx of CAD s/p pacemakerUpon presentation to this facility, Initial trop 1.510, down to 1.280 -> 0.962- Cardiology consulted per Dr. Noble, recommendations appreciated-- Medical management--- Lovenox 40 mg Q24H, ASA 81 mg- Continue home medications- Continue to monitor and adjust Hx of HTN Hx of HLD Hx of Osteoarthritis - Increased home metoprolol XL from 25mg to 50 qd-- Hypotensive episode overnight requiring Midodrine, BP WNL during the day-- Will defer to cardiology for recommendations- Continue home Ultram 50 BID PRN - Decreased home lipitor from 10mg to 5 qd PO, LDL - Continue home Imdur 30mg qd- Hold Plavix 75mg, on Lovenox 40 mg Q24H- Continue to monitor vitals, Code: FullDiet: CardiacDVT: LovenoxDispo: Likely home, pending cardiac clearanceNOK: Elizabeth Hart (daughter): [phone] Quality: [facility] Crit Care VTE ProphylaxisVTE prophylaxis initiated: yes (heparin) Current MedicationsCurrent medication review:I attest that the foregoing medication list in the medical record is true, accurate, and complete to the best of my knowledge. Advanced Care Plan 65 or OlderDiscussed with: patient (full code)Discussion included: code status AttestationsAttestation needed: teaching physician Alvaro Ron 08/06/231938:Attestations Teaching Physician AttestationF/U visit w/ resident:I saw the patient with the resident and . . . agree with the resident's findings and plan. at 1538 at 1939 RPT #:[id number] OF REPORTPRProgress tzvd9739-08-52S28:46:00Z.CZWC75109149-0188ZHBpikh able for patient ndklCAYMMYDDNYUXBP5632-20-33F54:39:35 [facility] 2023-08-06 09:06:00 [id number] XJchgJM1pryi3l1+51fEER5VNX/UC cLa9W8eT85Z5vaMlcUdB6/oGVWd8529-84-80S40:06:28318 0-0012 [place] [address] PATIENT NAME: CHARLIE HART ADMIT DATE: 08/05/23ACCOUNT NO: [id number] ROOM NO: [facility] AGE: 88 REPORT TYPE: ELECTROCARDIOGRAM SEX: M ADMITTING PHYSICIAN:Alvaro Ron MD ATTENDING PHYSICIAN:Alvaro Ron MD Order:[id number] Reason : CAD Test Date/Time Stamp:FriAug 06 2023 09:06:18Blood Pressure : / mmHGVent. Rate : 077 BPM Atrial Rate : 077 BPM P-R Int : 158 ms QRS Dur : 182 ms QT Int : 458 ms P-R-T Axes : 055 -84 085 degrees QTc Int : 518 ms Atrial-sensed ventricular-paced rhythmAbnormal ECGWhen compared with ECG of 16-DEC-2021 08:16,premature ventricular complexes are no longer presentVent. rate has decreased BY 6 BPMConfirmed by DEYVI CELIS ([id number]) on 08/06/2023 3:33:31 PM Referred By: Alvaro Ron Confirmed by:DEYVI CELIS at 1533 PATIENT NAME: CHARLIE HART .[id number] AVAvailable for patient yfknAWFSQJKBXVVQXX8685-68-48T82:33:54 [facility] 2023-08-06 06:07:00 [id number] fMdmSWXB8MPMScdr4ZEPWPfwS/sgJ Jpg1cFh33wBSX00qZAtN0cboeRF6892-89-32T64:07:00 [facility] ([facility])Cardiology Progress NoteREPORT#:[id number] REPORT STATUS: SignedREPORT INITIALIZATION DATE:08/06/23 TIME: 606 PATIENT: CHARLIE HART UNIT #: [id number]#: [id number] [facility] AGE: 88 SEX: M ATTEND: Alvaro Ron MDADM AUTHOR: Kyree Noble MDREPT SERVICE DT/TIME: 08/06/23 0607* ALL edits or amendments must be made on the electronic/computer document * SubjectiveChief complaint:Chest painPatient reports:No: chest pain, palpitations, shortness of breath. Objective GeneralVS/I O:24 hour I O ending at 0700: 08/06 0700 08/05 1900 Intake Total 200 Output Total 100 Balance 100 Intake, Oral 200 Number 1 Bowel Movements Number Voids 1 Output, Urine 100 Vital Signs: Date Time Temp Pulse Resp B/P B/P Pulse O2 O2 Flow FiO2 Mean Ox Delivery Rate 08/06 0508 97.5 08/06 0430 78 15 101/58 95 08/06 0406 82 18 108/60 98 08/06 0334 86 26 134/67 08/06 0330 93 34 93/50 81 08/06 0300 74 18 85/52 94 08/06 0238 75 14 81/56 94 08/06 0230 75 12 77/50 93 08/06 0200 78 21 93/54 95 08/06 0159 85 19 94/53 96 08/06 0155 88 16 100/59 96 08/06 0100 80 18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 (32.9 - 35.5 %) 32.5 L RDW (12.1 - 15.2 %) 12.1 Plt Count (129 - 368 K/MM3) 156 MPV (7.4 - 10.4 fl) 9.5 Neut % (Auto) (43 - 75 %) 72.9 Lymph % (Auto) (14 - 44 %) 13.9 L [place] % (Auto) (4 - 13 %) 10.4 Eos % (Auto) (0 - 6 %) 2.2 Baso % (Auto) (0 - 2 %) 0.2 Neut # (Auto) (2.0 - 7.6 K/mm3) 5.86 Lymph # (Auto) (1.0 - 3.8 K/mm3) 1.12 [place] # (Auto) (0.1 - 0.8 K/mm3) 0.84 H Eos # (Auto) (0.0 - 0.2 K/mm3) 0.18 Baso # (Auto) (0.0 - 0.2 K/mm3) 0.02 Immature Gran % (0.0 - 2.0 %) 0.4 Nucleated RBC % (0 - 1.0 %) 0.0 Nucleated RBCs # (Man) (0.0 - 0.1 K/mm3) 0.00 Radiology data:Recent Impressions:RADIOLOGY - XR CHEST 1V 12/15 1155 Report Impression - Status: SIGNED Entered: 12/15/2021 1210 IMPRESSION: 1. Cardiomegaly with mild vascular congestion.Impression By: GaneshRXC2 - Aquiles [facility] MDRADIOLOGY - XR CHEST 1V 12/16 0608 Report Impression - Status: SIGNED Entered: 12/16/2021 0819 IMPRESSION: Slight improvement in mild CHF. 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 PPM - normal function. Symptomatic bradycardia CAD-stable -mild MR-mild PSVT Hx of LBBB HTN HLP PLAN: d/c home f/u one week. at 1153 RPT #:[id number] OF REPORTPRProgress akyg6863-00-58A93:12:00Z.YCDA55108851-9875PZAibqx able for patient sdazIBPFMZQYTSOLMW2089-40-67D63:54:00 [facility] 2021-12-16 08:16:00 [id number] Y6IxlfqSVXTwwMaCQbZMKMBCg1tAE DSngr+fm9Gqdn5oxcELbocGnV7KYd07344-64-20M49:16:00 6751-4013 [place] [id number] PATIENT NAME: CHARLIE HART ADMIT DATE: 12/13/21ACCOUNT NO: [id number] ROOM NO: Z.350 AGE: 86 REPORT TYPE: ELECTROCARDIOGRAM SEX: M ADMITTING PHYSICIAN:Alvaro Ron MD ATTENDING PHYSICIAN:Alvaro Ron MD Order:[id number] Reason : S/P PPI Test Date/Time Stamp:FriDec 16 2021 08:16:22Blood Pressure : / mmHGVent. Rate : 083 BPM Atrial Rate : 083 BPM P-R Int : 138 ms QRS Dur : 182 ms QT Int : 456 ms P-R-T Axes : 019 -84 079 degrees QTc Int : 535 ms Atrial-sensed ventricular-paced rhythm with occasional premature ventricularcomplexesAbnormal ECGWhen compared with ECG of 15-DEC-2021 12:52,No significant change was foundConfirmed by DEYVI CELIS ([id number]) on 12/16/2021 9:18:01 AM Referred By: Alvaro Ron Confirmed by:DEYVI CELIS at 0918 PATIENT NAME: CHARLIE HART .[id number] AVAvailable for patient oozwEDCEQUZFJOFXWC1092-71-54A94:18:24 [facility] 2021-12-16 08:16:00 [id number]+ HLshirhWewrGYT9spKCSKoMN4Fd3Z zHVwiNFE4sLAfgYdaJKVrEVBSKhJS02845-14-97W40:16:00 0172-[address] [address] PATIENT NAME: CHARLIE HART ADMIT DATE: 12/13/21ACCOUNT NO: [id number] ROOM NO: [facility] AGE: 86 REPORT TYPE: ELECTROCARDIOGRAM SEX: M ADMITTING PHYSICIAN:Alvaro Ron MD ATTENDING PHYSICIAN:Alvaro Ron MD Order:[id number] Reason : S/P PPI Test Date/Time Stamp:FriDec 16 2021 08:16:22Blood Pressure : / mmHGVent. Rate : 083 BPM Atrial Rate : 083 BPM P-R Int : 138 ms QRS Dur : 182 ms QT Int : 456 ms P-R-T Axes : 019 -84 079 degrees QTc Int : 535 ms Atrial-sensed ventricular-paced rhythm with occasional premature ventricularcomplexesAbnormal ECGWhen compared with ECG of 15-DEC-2021 12:52,No significant change was foundConfirmed by DEYVI CELIS ([id number]) on 12/17/2021 2:45:44 PM Referred By: Alvaro Ron Confirmed by:DEYVI CELIS at 1445 PATIENT NAME: CHARLIE HART .[id number] AVAvailable for patient htnvPEJRLMPRSJHXPF4956-31-33Y01:46:12 [facility] 2021-12-16 07:41:00 [id number]+2 iaVInGjGuaAE7bmDHrcKYFryC2v6r +RtdP+oxFUGFkcW+JAgJLxFJy6oLQJ5304-65-19Q69:41:00 [facility] ([facility])Hospitalist Discharge SummaryREPORT#:[id number] REPORT STATUS: SignedDATE:12/16/21 TIME: 740 PATIENT: CHARLIE HART UNIT #: [id number]#: [id number] [address] AGE: 86 SEX: M ATTEND: Alvaro Ron [facility] AUTHOR: Edgard Birmingham MD R2 * ALL edits or amendments must be made on the electronic/computer document * Edgard Birmingham 12/16/21 0741:General InformationProblem List/A P: 1. 2nd degree AV block 2. Bradycardia 3. CAD (coronary artery disease) 4. HTN (hypertension) 5. HLD (hyperlipidemia) 6. Macular degeneration of left eye 7. Deafness 8. H/O viral encephalitis Date of admission:Date of admission: 12/13/21Discharge date: 12/16/21Admission diagnosis:Bradycardia due to second degree type II blockDischarge diagnosis:Bradycardia due to second degree type II AV block status post dual chamber pacemaker placementHospital course:86-year-old man with a past medical history of CAD, hypertension, and lipidemia who presented after a syncopal episode while sitting in his car. In the Emergency Department, he was found to be bradycardic into the upper 20s with complete secondary heart block. Patient reported feeling well with no specific concerns. He had been started on Metoprolol back in September 2021 but has not takenit in several days prior to admission. His manager front office, Dr. Celis was consulted. Echocardiogram was normal. Patient was monitored on telemetry and he remained bradycardic in the 20s to 30s. Patient underwent placement of dual chamber permanent pacemaker. He tolerated the procedure well without complication. He was discharged home in improved and stable condition.Consultants: cardiologyPt. condition on discharge: improved, stableAllergies:Allergies:No Known Allergies (Coded, 12/13/21) Med Rec Med RecDischarge meds:Stop taking the following medications:predniSONE (predniSONE) 10 MG TAB 10 MILLIGRAM ORAL DAILY. CYCLOBENZAPRINE HCL (FLEXERIL) 5 MG TAB 5 MILLIGRAM ORAL DAILY. HYDROCHLOROTHIAZIDE (HCTZ) 12.5 MG CAP 12.5 MILLIGRAM ORAL DAILY. LOSARTAN (COZAAR) 100 MG TAB 100 MILLIGRAM ORAL DAILY. Continue taking these medications:ALENDRONATE (FOSAMAX ONCE WEEKLY) 70 MG TAB 70 MILLIGRAM ORAL EVERY 7 DAYS. LOVASTATIN (MEVACOR) 10 MG TAB 10 MILLIGRAM ORAL BEDTIME. MAGNESIUM OXIDE (MAGNESIUM OXIDE) 250 MG TAB 250 MILLIGRAM ORAL DAILY. Start taking the following new medications:CLOPIDOGREL (PLAVIX) 75 MG TAB 75 MILLIGRAM ORAL DAILY. Qty = 30 No Refills ISOSORBIDE MONONITRATE SR (IMDUR) 30 MG TAB.SR.24H 30 MILLIGRAM ORAL DAILY. Qty = 1 No Refills CEPHALEXIN (KEFLEX) 500 MG CAP 500 MILLIGRAM ORAL EVERY 6 HOURS. Qty = 20 No Refills ObjectiveVS/I OLast Documented: Result Date Time Pulse Ox 96 12/17 623 B/P 141/74 12/17 623 B/P Mean 99 12/17 623 Pulse 73 12/17 623 Resp 20 12/17 623 Temp 36.8 12/16 0416 FiO2 28 12/15 2025 O2 Delivery Nasal cannula 12/15 2025 O2 Flow Rate 2 12/15 2025 24 hour I O ending at 0700: 12/16 0700 12/15 1900 Intake Total 100 Output Total Balance 100 Intake, Oral 100 Number 0 Bowel Movements Number Voids 2 General appearance: alert, awake, orientedHead/Eyes: atraumatic, clear cornea, normal conjunctiva/scleraENT: moist mucosal membranes, normal noseNeck: full range of motion, non-tenderCardiovascular: bradycardic, normal heart sounds, regular rate rhythm, no murmurRespiratory: aerating well, clear to auscultation, symmetric expansionAbdomen: non-tender, normal bowel sounds, softGenitourinary: no flank painExtremities: edema, moves all, no clubbing, no cyanosis, R hand hardscape foreman mildly lowerMusculoskeletal: normal inspection, no muscle spasmNeuro/BOARD WRITER: alert, oriented X 3, no motor deficitsSkin: intact, no rashPsychiatry: normal affect, normal mood ResultsFindings/Data:Laboratory Tests Test Result Date Time Chemistry Sodium (137 - 145 MMOL/L) 141 12/15 0510 Potassium (3.5 - 5.1 MMOL/L) 4.6 12/15 0510 Chloride (98 - 107 MMOL/L) 107 12/15 0510 Carbon Dioxide (22 - 30 MMOL/L) 26 12/15 0510 Anion Gap (14 - 24 MMOL/L) 13 L 12/15 0510 BUN (9 - 20 MG/DL) 18 12/15 0510 Creatinine (0.66 - 1.25 MG/DL) 1.10 12/15 0510 Glomerular Filtr Rate > 60 12/15 0510 Glucose (74 - 106 MG/DL) 89 12/15 0510 POC Glucose (60 - 99 MG/DL) 99 12/16 2011 Calcium (8.4 - 10.2 MG/DL) 8.7 12/15 0510 Total Bilirubin (0.2 - 1.3 MG/DL) 1.5 H 12/13 1700 AST (17 - 59 UNITS/L) 18 12/13 1700 ALT (0 - 49 UNITS/L) 10 12/13 1700 Total Alk Phosphatase (38 - 126 UNITS/L) 56 12/13 1700 Troponin I (0.012 - 0.033 NG/ML) < 0.012 L 12/14 0550 NT-Pro-B Natriuret Pep (0 - 450 pg/mL) 728.0 H 12/13 1700 Total Protein (6.2 - 7.6 G/DL) 6.3 12/13 1700 Albumin (3.5 - 5.0 G/DL) 3.5 12/13 1700 TSH (0.465 - 4.68 MIU/L) 1.310 12/13 1700 Coagulation INR (0.86 - 1.14) 1.1 12/15 0510 APTT (26.2 - 35.4 SECONDS) 25.2 L 12/15 0510 PT Patient/Control Mix (9.4 - 12.7 SECONDS) 12.6 12/15 0510 Hematology WBC (3.8 - 9.8 K/MM3) 7.7 12/15 0510 RBC (3.95 - 5.67 M/MM3) 3.69 L 12/15 0510 Hgb (12.4 - 16.7 G/DL) 13.0 12/15 0510 Hct (35.9 - 49.5 %) 40.3 12/15 0510 MCV (81.7 - 96.1 fL) 109 H 12/15 0510 MCH (27.6 - 33.2 pg) 35.2 H 12/15 0510 MCHC (32.9 - 35.5 %) 32.3 L 12/15 0510 RDW (12.1 - 15.2 %) 12.3 12/15 0510 Plt Count (129 - 368 K/MM3) 165 / 0510 MPV (7.4 - 10.4 fl) 9.3 / 0510 Neut % (Auto) (43 - 75 %) 64.1 / 0510 Lymph % (Auto) (14 - 44 %) 20.5 / 0510 [place] % (Auto) (4 - 13 %) 11.4 / 0510 Eos % (Auto) (0 - 6 %) 3.0 / 0510 Baso % (Auto) (0 - 2 %) 0.7 12/15 0510 Neut # (Auto) (2.0 - 7.6 K/mm3) 4.92 / 0510 Lymph # (Auto) (1.0 - 3.8 K/mm3) 1.57 12/15 0510 [place] # (Auto) (0.1 - 0.8 K/mm3) 0.87 H 12/15 0510 Eos # (Auto) (0.0 - 0.2 K/mm3) 0.23 H 12/15 0510 Baso # (Auto) (0.0 - 0.2 K/mm3) 0.05 12/15 0510 Immature Gran % (0.0 - 2.0 %) 0.3 12/15 0510 Nucleated RBC % (0 - 1.0 %) 0.0 12/15 0510 Nucleated RBCs # (Man) (0.0 - 0.1 K/mm3) 0.00 12/15 0510 Serology SARS-CoV-2 Ag (Rapid) (Negative) NEGATIVE 12/15 0327 Radiology data:Recent Impressions:RADIOLOGY - XR CHEST 1V 12/15 1155 Report Impression - Status: SIGNED Entered: 12/15/2021 1210 IMPRESSION: 1. Cardiomegaly with mild vascular congestion.Impression By: GaneshRXC2 - Aquiles Powell MD Discharge Instructions PCPPCP follow-up:PCP: No Primary or Family PhysicianDischarge to: Home/Self CareAdditional Discharge Routines: PCP Follow-Up, [employer]verter Follow-UpDiet: Resume Home Diet/FeedsActivity: Resume Normal Activity, As ToleratedPrescriptions: e-prescribeDischarge management: less than 30 minsTime spent: Time spent on patient care (minutes): 17 Quality: Discharge Advanced Care Plan 65 or OlderDiscussed with: patient Current MedicationsCurrent medication review:I attest that the foregoing medication list in the medical record is true, accurate, and complete to the best of my knowledge. AttestationsAttestation needed: supervising physician Alvaro Ron 12/20/21 1638:Discharge InstructionsDischarge management: greater than 30 mins, face to face encounter Attestations Teaching Physician AttestationF/U visit w/ resident:I saw the patient with the resident and . . . agree with the resident's findings and plan. Pt is post PM. ANANTH Noble, site is ok plan dc . Interrogation done. Called and talked to at pt request at 1525 at 1640 RPT #:[id number] OF REPORTDSDischarge utneied9287-94-99G61:41:00Z.JYVS29532965-6661HMGm ailable for patient cqftTDWGFKSGIRPWQJ4285-40-87K04:25:28 [facility] 2021-12-15 12:52:00 [id number] O4MnXsmcVc5BaiU1NuYWtMhRDJWCa m28bkjHWsklcp2SmMEmTLh1w9ue2QN7322-80-11Q34:52:00 8277-6603 [place] [address] PATIENT NAME: CHARLIE HART ADMIT DATE: 12/13/21ACCOUNT NO: [id number] ROOM NO: [facility] AGE: 86 REPORT TYPE: ELECTROCARDIOGRAM SEX: M ADMITTING PHYSICIAN:Alvaro Ron MD ATTENDING PHYSICIAN:Alvaro Ron MD Order:[id number] Reason : AV BLOCK Test Date/Time Stamp:Sat Dec 15 2021 12:52:31Blood Pressure : / mmHGVent. Rate : 118 BPM Atrial Rate : 118 BPM P-R Int : 000 ms QRS Dur : 166 ms QT Int : 162 ms P-R-T Axes : 000 156 000 degrees QTc Int : 227 ms Demand pacemaker, interpretation is based on intrinsic rhythmNonspecific intraventricular blockPossible Right ventricular hypertrophyInferior infarct , age undeterminedAnterolateral infarct , age undeterminedAbnormal ECGWhen compared with ECG of 15-DEC-2021 12:16,No significant change was foundConfirmed by DEYVI CELIS ([id number]) on 12/15/2021 4:56:14 PM Referred By: Self Referred Confirmed by:DEYVI CELIS at 1656 PATIENT NAME: CHARLIE HART .[id number] AVAvailable for patient vwwaNHZUZKLFAUXYKD1436-92-97R22:56:47 [facility] 2021-12-15 12:52:00 [id number] xsseFJYIINAn3RhQU3ySPDshu2aua XS6iQ+37e+2VZbH0Un73aihg2ut4pL1869-64-20O65:52:00 6721-[address] [address] PATIENT NAME: CHARLIE HART ADMIT DATE: 12/13/21ACCOUNT NO: [id number] ROOM NO: Z.350 AGE: 86 REPORT TYPE: ELECTROCARDIOGRAM SEX: M ADMITTING PHYSICIAN:Alvaro Ron MD ATTENDING PHYSICIAN:Alvaro Ron MD Order:[id number] Reason : AV BLOCK Test Date/Time Stamp:Sat Dec 15 2021 12:52:31Blood Pressure : / mmHGVent. Rate : 118 BPM Atrial Rate : 118 BPM P-R Int : 000 ms QRS Dur : 166 ms QT Int : 162 ms P-R-T Axes : 000 156 000 degrees QTc Int : 227 ms Demand pacemaker, interpretation is based on intrinsic rhythmNonspecific intraventricular blockPossible Right ventricular hypertrophyInferior infarct , age undeterminedAnterolateral infarct , age undeterminedAbnormal ECGWhen compared with ECG of 15-DEC-2021 12:16,No significant change was foundConfirmed by DEYVI CELIS ([id number]) on 12/17/2021 2:46:01 PM Referred By: Self Referred Confirmed by:DEYVI CELIS at 1446 PATIENT NAME: CHARLIE HART .[id number] AVAvailable for patient elxtJFYZTZHUKDBOHW2226-98-66L34:46:22 [facility] 2021-12-15 12:19:00 [id number] +/+aTB2n7YiAUXqTGR090FxeH+cIu FUV2+NoXKvkFI75t1j6f04dWdIQZRf3899-20-63B89:19:00 7388-6536 [place] [address] PATIENT NAME: CHARLIE HART ADMIT DATE: 12/13/21ACCOUNT NO: [id number] ROOM NO: [facility] AGE: 86 REPORT TYPE: ELECTROCARDIOGRAM SEX: M ADMITTING PHYSICIAN:Alvaro Ron MD ATTENDING PHYSICIAN:Alvaro Ron MD Order:[id number] Reason : AV Block Test Date/Time Stamp:FriDec 15 2021 12:19:57Blood Pressure : / mmHGVent. Rate : 067 BPM Atrial Rate : 067 BPM P-R Int : 170 ms QRS Dur : 184 ms QT Int : 490 ms P-R-T Axes : 034 009 083 degrees QTc Int : 517 ms Electronic ventricular pacemakerWhen compared with ECG of 15-DEC-2021 12:16,Vent. rate has decreased BY 5 BPMConfirmed by DEYVI CELIS ([id number]) on 12/15/2021 4:55:08 PM Referred By: Self Referred Confirmed by:DEYVI CELIS at 1655 PATIENT NAME: CHARLIE HART .[id number] AVAvailable for patient fprzQOUCJDSYWGIHVL6512-95-59V09:55:27 [facility] 2021-12-15 12:19:00 [id number] vYsHh7XCewtEdalVF8ePqarAtj9Wc iA1OIXzOXKnQFGOMijp7IZKStJ5EeU9206-58-31Z99:19:00 5108-7434 [place] [id number] PATIENT NAME: CHARLIE HART ADMIT DATE: 12/13/21ACCOUNT NO: [id number] ROOM NO: [facility] AGE: 86 REPORT TYPE: ELECTROCARDIOGRAM SEX: M ADMITTING PHYSICIAN:Alvaro Ron MD ATTENDING PHYSICIAN:Alvaro Ron MD Order:[id number] Reason : AV Block Test Date/Time Stamp:FriDec 15 2021 12:19:57Blood Pressure : / mmHGVent. Rate : 067 BPM Atrial Rate : 067 BPM P-R Int : 170 ms QRS Dur : 184 ms QT Int : 490 ms P-R-T Axes : 034 009 083 degrees QTc Int : 517 ms Electronic ventricular pacemakerWhen compared with ECG of 15-DEC-2021 12:16,Vent. rate has decreased BY 5 BPMConfirmed by DEYVI CELIS ([id number]) on 12/17/2021 2:46:05 PM Referred By: Self Referred Confirmed by:DEYVI CELIS at 1444 PATIENT NAME: CHARLIE HART .[id number] AVAvailable for patient becvXPJHGUULVNNCMI4967-36-26M43:46:33 [facility] 2021-12-15 12:16:00 [id number] +6lvOdjM7iA2OQ3MiLNwG4inqVRqx uISZRctsUzTvzhnW6Z24ZA2NUL9Cr22387-62-28M56:16:00 [id number] [address] PATIENT NAME: CHARLIE HART ADMIT DATE: 12/13/21ACCOUNT NO: [id number] ROOM NO: [facility] AGE: 86 REPORT TYPE: ELECTROCARDIOGRAM SEX: M ADMITTING PHYSICIAN:Alvaro Ron MD ATTENDING PHYSICIAN:Alvaro Ron MD Order:[id number] Reason : S/P PPI Test Date/Time Stamp:FriDec 15 2021 12:16:49Blood Pressure : / mmHGVent. Rate : 072 BPM Atrial Rate : 072 BPM P-R Int : 160 ms QRS Dur : 184 ms QT Int : 496 ms P-R-T Axes : 000 009 080 degrees QTc Int : 543 ms Electronic ventricular pacemakerWhen compared with ECG of 15-DEC-2021 08:08,Electronic ventricular pacemaker has replaced Sinus rhythmVent. rate has increased BY 36 BPMConfirmed by DEYVI CELIS ([id number]) on 12/15/2021 4:54:38 PM Referred By: Self Referred Confirmed by:DEYVI CELIS at 1654 PATIENT NAME: CHARLIE HART .[id number] AVAvailable for patient cafpDOKDUCYWXVZCZN8511-72-33H27:55:07 [facility] 2021-12-15 12:16:00 [id number] rrbv7Pl/mEBFzz7g1Q+qg3PYhpIm1 4/k7YmGWC2v3IgElTWxI7bG9/grAG82717-35-75S42:16:00 0067-[address] [address] PATIENT NAME: CHARLIE HART ADMIT DATE: 12/13/21ACCOUNT NO: [id number] ROOM NO: Z.350 AGE: 86 REPORT TYPE: ELECTROCARDIOGRAM SEX: M ADMITTING PHYSICIAN:Alvaro Ron MD ATTENDING PHYSICIAN:Alvaro Ron MD Order:[id number] Reason : S/P PPI Test Date/Time Stamp:FriDec 15 2021 12:16:49Blood Pressure : / mmHGVent. Rate : 072 BPM Atrial Rate : 072 BPM P-R Int : 160 ms QRS Dur : 184 ms QT Int : 496 ms P-R-T Axes : 000 009 080 degrees QTc Int : 543 ms Electronic ventricular pacemakerWhen compared with ECG of 15-DEC-2021 08:08,Electronic ventricular pacemaker has replaced Sinus rhythmVent. rate has increased BY 36 BPMConfirmed by DEYVI CELIS ([id number]) on 12/17/2021 2:46:09 PM Referred By: Self Referred Confirmed by:DEYVI CELIS at 1446 PATIENT NAME: CHARLIE HART .[id number] AVAvailable for patient qamhQYAOQLFBPWVCWC9937-00-77D07:46:33 [facility] 2021-12-15 11:40:00 [id number]/c9f xmjmtar7AbSzPR/SfliTIHx+nKcLf qbwRl5JW6vGKZliSfqewCaGUV7Owc+5892-28-08Q14:40:00 [id number] [address] PATIENT NAME: CHARLIE HART ADMIT DATE: 12/13/21ACCOUNT NO: [id number] ROOM NO: Z.350 AGE: 86 REPORT TYPE: CARDIAC CATHETERIZATION REPORT SEX: M ADMITTING PHYSICIAN:Alvaro Ron MD ATTENDING PHYSICIAN:Alvaro Ron MD PROCEDURE DATE: 12/15/2021 SUPERVISOR CURED MEATS: Deyvi Celis MD TITLE OF THE PROCEDURE: Dual-chamber permanent pacemaker implantation. INDICATION FOR THE PROCEDURE: Syncope and 2:1 AV block with marked bradycardia. ESTIMATED BLOOD LOSS: Minimal. COMPLICATIONS: None. CONTRAST: None. ANESTHESIA: Conscious sedation with Versed and fentanyl and 1% lidocaine forlocal anesthesia. FINAL DIAGNOSIS: Successful dual-chamber MRI compatible Salcedo's permanentpacemaker implantation via the left subclavian approach. DISPOSITION: To continue hospitalization for 1 more day and discharged tomorrowif everything is stable. PROCEDURE IN DETAIL: Please see enclosed pacemaker report in the chart. Dictated By: Deyvi Celis MD WT: CATH:JESSICA/DANIEL/NTSDD: 12/15/2021 11:40:13DT: 12/15/2021 11:44:31Conf#: [id number]/DID#: [id number] Authenticated by Deyvi Celis MD On 12/15/2021 11:54:46 AM at 1154 PATIENT NAME: CHARLIE HART dwdv5873-48-49R47:44:00Z.[id number] ble for patient rymmZOJSMIOPVVGVYO7640-40-48A03:55:16 [facility] 2021-12-15 08:47:00 [id number]+YJL JgKEgeiVFsneyX/u//zJTfg7VbdY+ HTsywLSwpxCG3ZQnLyvAg+Ez2IOB2s4910-23-47S52:47:00 [facility] ([facility]ospitalist Progress NoteREPORT#:[id number] REPORT STATUS: SignedDATE:12/15/21 TIME: 0847 PATIENT: CHARLIE HART UNIT #: [id number]#: [id number] [facility]GE[facility] 86 SEX: M ATTEND: Alvaro Ron AUTHOR: Allen Rausch MD R1 * ALL edits or amendments must be made on the electronic/computer document * Allen Rausch 12/15/21 0847:SubjectiveChief complaint:transfer for low HRHPI:Mr. Hart remains bradycardic with HR in 20s-30s. He remains hemodynamically stable and alert and oriented. He will be taken for permanent pacemaker implantation today. Mr. Hart was seen in PACU after pacemaker placement. He reports that he is feeling well. He appears to have tolerated the procedure well and HR has improved. He denies any chest pain or SOB. He states his only concern is that heis feeling hungry. Review of SystemsConstitutional:Denies: chills, fatigue, fever, generalized weakness, lethargy, malaise, recent wt loss, other. Respiratory:Denies: pleuritic pain, SOB, wheezing. Cardiovascular:Denies: chest pain, edema, orthopnea, palpitations. GI:Denies: abdominal pain, constipation, diarrhea, nausea, vomiting. All systems rev neg: except as marked Objective GeneralVS/I O:Vital Signs: Date Time Temp Pulse Resp B/P B/P Pulse O2 O2 Flow FiO2 Mean Ox Delivery Rate 12/15 0738 97.8 12/15 0701 29 20 147/67 97 82 12/15 0554 31 23 94 12/15 0512 Nasal 2 98 cannula 12/15 0501 26 21 134/64 92 96 12/15 0459 29 29 96 12/15 0401 28 18 120/55 79 12/15 0337 97.8 12/15 0301 31 18 129/63 90 12/15 0201 29 15 109/53 76 96 12/15 0107 97.8 12/15 0105 25 12/15 0105 21 98 12/15 0101 27 20 133/63 90 98 12/15 0021 21 12/14 2321 28 12/14 2221 29 25 100 12/14 2201 31 107/50 72 97 12/14 2200 2 12/14 2121 25 19 98 12/14 2101 27 19 115/58 84 100 12/14 2000 27 20 105/55 76 97 12/146 27 20 112/54 78 92 12/15 1951 98.4 12/14 1921 29 26 89 12/14 1430 31 20 107/55 72 98 12/14 1122 29 20 128/56 80 99 12/14 0959 98.3 29 18 119/55 76 98 Room air 24 hour I O ending at 0700: 12/15 0700 12/14 1900 Intake Total 200 Output Total 500 Balance -300 Intake, Oral 200 Number 1 Bowel Movements Output, Urine 500 PATIENT WEIGHT: Weight (lb): Weight (oz): Weight (kg): 86.364 Medications:Active Meds + DC'd Last 24 HrsAtorvastatin Calcium (LIPITOR) 10 MG BEDTIME PO Aspirin (CHILDREN'S ASPIRIN) 81 MG DAILY PO (DC) Clopidogrel Bisulfate (PLAVIX) 75 MG DAILY PO (DA) Isosorbide Mononitrate (IMDUR) 30 MG DAILY PO Tramadol HCl (ULTRAM) 50 MG Q8H PRN PRN PO Hydralazine HCl (APRESOLINE) 10 MG Q6H PRN PRN IV Docusate Sodium (COLACE) 100 MG BID PO Enoxaparin Sodium (LOVENOX) 40 MG 1800 SUBQ (DC) Acetaminophen (TYLENOL) 650 MG Q6H PRN PRN PO Nutrition assessment:The data set between the solid lines has been imported from the dietitian's assessment. Any exceptions have been noted under Provider comments. BMI Calculated: 28.9Nutrition related diagnosis: Nutrition diagnosis details: Nutrition problem: Nutrition etiology: Nutrition signs and symptoms: Nutrition prescription: Dietitian name: Assessment completed: Provider comments on imported dietitian assessment: Physical ExamGeneral appearance: alert, awake, oriented, no acute distress, mental status normal, no respiratory distressHead/Eyes: atraumatic, clear cornea, normal conjunctiva/scleraENT: moist mucosal membranes, normal noseNeck: full range of motion, non-tenderCardiovascular: bradycardic, normal heart soundsRespiratory: aerating well, clear to auscultation, symmetric expansionAbdomen: non-tender, normal bowel sounds, softGenitourinary: no flank painExtremities: edema, moves all, no clubbing, no cyanosis, R hand hardscape foreman mildly lowerMusculoskeletal: normal inspection, no muscle spasmNeuro/BOARD WRITER: alert, oriented X 3, no motor deficitsSkin: intact, no rashPsychiatry: normal affect, normal mood ResultsFindings/Data:Laboratory Tests 12/15 12/15 0632 0510 Chemistry Sodium (137 - 145 MMOL/L) 141 Potassium (3.5 - 5.1 MMOL/L) 4.6 Chloride (98 - 107 MMOL/L) 107 Carbon Dioxide (22 - 30 MMOL/L) 26 Anion Gap (14 - 24 MMOL/L) 13 L BUN (9 - 20 MG/DL) 18 Creatinine (0.66 - 1.25 MG/DL) 1.10 Glomerular Filtr Rate > 60 Glucose (74 - 106 MG/DL) 89 POC Glucose (60 - 99 MG/DL) 79 Calcium (8.4 - 10.2 MG/DL) 8.7 Laboratory Tests 12/15 0510 Coagulation INR (0.86 - 1.14) 1.1 APTT (26.2 - 35.4 SECONDS) 25.2 L PT Patient/Control Mix (9.4 - 12.7 SECONDS) 12.6 Laboratory Tests 12/15 0510 Hematology WBC (3.8 - 9.8 K/MM3) 7.7 RBC (3.95 - 5.67 M/MM3) 3.69 L Hgb (12.4 - 16.7 G/DL) 13.0 Hct (35.9 - 49.5 %) 40.3 MCV (81.7 - 96.1 fL) 109 H MCH (27.6 - 33.2 pg) 35.2 H MCHC (32.9 - 35.5 %) 32.3 L RDW (12.1 - 15.2 %) 12.3 Plt Count (129 - 368 K/MM3) 165 MPV (7.4 - 10.4 fl) 9.3 Neut % (Auto) (43 - 75 %) 64.1 Lymph % (Auto) (14 - 44 %) 20.5 [place] % (Auto) (4 - 13 %) 11.4 Eos % (Auto) (0 - 6 %) 3.0 Baso % (Auto) (0 - 2 %) 0.7 Neut # (Auto) (2.0 - 7.6 K/mm3) 4.92 Lymph # (Auto) (1.0 - 3.8 K/mm3) 1.57 [place] # (Auto) (0.1 - 0.8 K/mm3) 0.87 H Eos # (Auto) (0.0 - 0.2 K/mm3) 0.23 H Baso # (Auto) (0.0 - 0.2 K/mm3) 0.05 Immature Gran % (0.0 - 2.0 %) 0.3 Nucleated RBC % (0 - 1.0 %) 0.0 Nucleated RBCs # (Man) (0.0 - 0.1 K/mm3) 0.00 Laboratory Tests 12/15 0327 Serology SARS-CoV-2 Ag (Rapid) (Negative) NEGATIVE Diagnosis, Assessment Plan Free Text DxA P NotesFree text DxA P notes:Mr. Hart is an 86-year-old man with PMH HTN, CAD, HLD, deafness, and macular degeneration who presented to the ED with syncope. He was found to be bradycardic with HR in 20s-30s and admitted for second degree heart block. 1. 2nd degree Type 2 AV block* Continue telemetry monitoring. * HR 20s-30s, pt hemodynamically stable. * Permanent pacemaker placed today, HR improved post-op. 2. Bradycardia* Due to 2nd degree heart block, see above. * Improved s/p pacemaker. 3. CAD (coronary artery disease)* Trops x3 WNL, ASA, plavix held for procedure. 4. HTN (hypertension)* Better controlled, will continue imdur for now. 5. HLD (hyperlipidemia)* cont atorvastatin, Bili slightly high. 6. Macular degeneration of left eye* Chronic, left eye blind. 7. Deafness* Chronic, From work related injury. 8. H/O viral encephalitis* Chronic, causing gait issues, uses a cane. Diet: Cardiac after procedure. DVT PPX: LovenoxCode Status: Full CodeDisposition: Home Tommorrow if no complications. Quality: Gen Med Crit Care VTE ProphylaxisVTE prophylaxis initiated: yes Current MedicationsCurrent medication review:I attest that the foregoing medication list in the medical record is true, accurate, and complete to the best of my knowledge. Advanced Care Plan 65 or OlderDiscussed with: patientDiscussion included: code status AttestationsAttestation needed: teaching physician Alvaro Ron 12/15/21 1603:Attestations Teaching Physician AttestationF/U visit w/ resident:I saw the patient with the resident and . . . agree with the resident's findings and plan. plan DC in am, doing well post PM at 1311 at 1604 RPT #:[id number] OF REPORTPRProgress [id number]:47:00Z.[id number] able for patient nyogDFJUNNNUQISVGS4609-62-36A83:12:09 [facility] 2021-12-15 08:08:00 [id number] 2WxRQTYARr3rDiwoDRcPvE+DobKob pvGiKtTb0mBHw0qaeVuuRc7/sbUPk21227-01-10Q34:08:00 [id number] [place] [id number] PATIENT NAME: CHARLIE HART ADMIT DATE: 12/13/21ACCOUNT NO: [id number] ROOM NO: [facility] AGE: 86 REPORT TYPE: ELECTROCARDIOGRAM SEX: M ADMITTING PHYSICIAN:Alvaro Ron MD ATTENDING PHYSICIAN:Alvaro Ron MD Order:[id number] Reason : AV Block Test Date/Time Stamp:FriDec 15 2021 08:08:25Blood Pressure : / mmHGVent. Rate : 036 BPM Atrial Rate : 036 BPM P-R Int : 296 ms QRS Dur : 124 ms QT Int : 530 ms P-R-T Axes : 050 040 041 degrees QTc Int : 409 ms Marked sinus bradycardia with 1st degree AV block and 2:1 AV BlockRight bundle branch blockAbnormal ECGNo previous ECGs availableConfirmed by DEYVI CELIS ([id number]) on 12/15/2021 10:25:01 AM Referred By: Alvaro Ron Confirmed by:DEYVI CELIS at 1025 PATIENT NAME: CHARLIE HART .[id number] AVAvailable for patient mmwpPCVPCFTOUGPSNX4090-73-51P57:25:21 [facility] 2021-12-15 08:08:00 [id number] +y3uUcpzveAvfiMa8Af0Ojd5BzTN2 81LXZpGCvhKVRjbygM+eLzqQyMYdbE5832-07-75H29:08:00 7930-4831 [place] [address] PATIENT NAME: CHARLIE HART ADMIT DATE: 12/13/21ACCOUNT NO: [id number] ROOM NO: [facility] AGE: 86 REPORT TYPE: ELECTROCARDIOGRAM SEX: M ADMITTING PHYSICIAN:Alvaro Ron MD ATTENDING PHYSICIAN:Alvaro Ron MD Order:[id number] Reason : AV Block Test Date/Time Stamp:FriDec 15 2021 08:08:25Blood Pressure : / mmHGVent. Rate : 036 BPM Atrial Rate : 036 BPM P-R Int : 296 ms QRS Dur : 124 ms QT Int : 530 ms P-R-T Axes : 050 040 041 degrees QTc Int : 409 ms Marked sinus bradycardia with 1st degree AV block and 2:1 AV BlockRight bundle branch blockAbnormal ECGNo previous ECGs availableConfirmed by DEYVI CELIS ([id number]) on 12/17/2021 2:46:17 PM Referred By: Alvaro Ron Confirmed by:DEYVI CELIS at 1446 PATIENT NAME: CHARLIE HART .[id number] AVAvailable for patient azwvCKHZDNJNLDNDRV9643-46-96K63:46:53 [facility] 2021-12-15 05:30:00 [id number] GJAjOgZ9m7cyPg+Zmv7uzuHqF2MtY GjpUG8og+e0onMWFq98mqOboJpEWJt9439-11-65J49:30:00 [facility] ([facility])Cardiology Progress NoteREPORT#:[id number] REPORT STATUS: SignedDATE:12/15/21 TIME: 529 PATIENT: CHARLIE HART UNIT #: [id number]#: [id number] [facility]GE: 86 SEX: M ATTEND: Alvaro Ron [facility] AUTHOR: Deyvi Celis MD * ALL edits or amendments must be made on the electronic/computer document * SubjectiveChief complaint:Syncope, 2:1 AV Block, BradycardiaPatient reports:Yes: fatigue. No: chest pain, dizziness, palpitations, shortness of breath. Nursing reports:No: complaints. Objective GeneralVS/I O:24 hour I O ending at 0700: 12/15 0700 12/14 1900 Intake Total 200 Output Total 500 Balance -300 Intake, Oral 200 Number 1 Bowel Movements Output, Urine 500 Vital Signs: Date Time Temp Pulse Resp B/P B/P Pulse O2 O2 Flow FiO2 Mean Ox Delivery Rate 12/15 0738 97.8 12/15 0554 31 23 94 12/15 0512 Nasal 2 98 cannula 12/15 0501 26 21 134/64 92 96 12/15 0459 29 29 96 12/15 0401 28 18 120/55 79 12/15 0337 97.8 12/15 0301 31 18 129/63 90 12/15 0201 29 15 109/53 76 96 12/15 0107 97.8 12/15 0105 25 12/15 0105 21 98 12/15 0101 27 20 133/63 90 98 12/15 0021 21 12/14 2321 28 05/20 2221 29 25 100 12/14 2200 31 107/50 72 97 12/140 2 12/14 2120 25 19 98 12/14 2100 27 19 115/58 84 100 12/14 2000 27 20 105/55 76 97 12/15 1955 27 20 112/54 78 92 12/15 1951 98.4 12/14 1921 29 26 89 12/14 1430 31 20 107/55 72 98 12/14 1122 29 20 128/56 80 99 12/14 0859 98.3 29 18 119/55 76 98 Room air 12/14 825 33 20 165/70 101 99 PATIENT WEIGHT: Weight (lb): Weight (oz): Weight (kg): 86.364 Medications:Active Meds + DC'd Last 24 HrsAtorvastatin Calcium (LIPITOR) 10 MG BEDTIME PO Aspirin (CHILDREN'S ASPIRIN) 81 MG DAILY PO (DC) Clopidogrel Bisulfate (PLAVIX) 75 MG DAILY PO (DA) Isosorbide Mononitrate (IMDUR) 30 MG DAILY PO Tramadol HCl (ULTRAM) 50 MG Q8H PRN PRN PO Hydralazine HCl (APRESOLINE) 10 MG Q6H PRN PRN IV Docusate Sodium (COLACE) 100 MG BID PO Enoxaparin Sodium (LOVENOX) 40 MG 1800 SUBQ (DC) Acetaminophen (TYLENOL) 650 MG Q6H PRN PRN PO Nutrition assessment:The data set between the solid lines has been imported from the dietitian's assessment. Any exceptions have been noted under Provider comments. BMI Calculated: 28.9Nutrition related diagnosis: Nutrition diagnosis details: Nutrition problem: Nutrition etiology: Nutrition signs and symptoms: Nutrition prescription: Dietitian name: Assessment completed: Provider comments on imported dietitian assessment: Physical ExamGeneral appearance: alert, awake, oriented, no acute distress, pleasant, conversational, mental status normal, no respiratory distressHead/Eyes: atraumatic, normocephalic, PERRLAENT: moist mucosal membranesNeck: full range of motion, supple/no meningismus, no bruit/NL carotids, no JVD,no masses or swellingCardiovascular: CV assessment: bradycardia, BP pulses = bilaterally Murmur assessment:II/ LUIS LLSB and AV areaRespiratory: clear to auscultation, no distressAbdomen: soft, non-tender, no mass/organomegalyLower extremity: LE assessment: no edema, 2+ peripheral pulsesMusculoskeletal: full range of motionNeuro/BOARD WRITER: alert, oriented X 3, CN II-XII intact, no motor deficitsSkin: dry, intactPsychiatry: normal affect, normal judgment/insight, normal mood, no hallucinations ResultsFindings/Data:Laboratory Tests 12/15 12/15 0632 0510 Chemistry Sodium (137 - 145 MMOL/L) 141 Potassium (3.5 - 5.1 MMOL/L) 4.6 Chloride (98 - 107 MMOL/L) 107 Carbon Dioxide (22 - 30 MMOL/L) 26 Anion Gap (14 - 24 MMOL/L) 13 L BUN (9 - 20 MG/DL) 18 Creatinine (0.66 - 1.25 MG/DL) 1.10 Glomerular Filtr Rate > 60 Glucose (74 - 106 MG/DL) 89 POC Glucose (60 - 99 MG/DL) 79 Calcium (8.4 - 10.2 MG/DL) 8.7 Laboratory Tests 12/15 0510 Coagulation INR (0.86 - 1.14) 1.1 APTT (26.2 - 35.4 SECONDS) 25.2 L PT Patient/Control Mix (9.4 - 12.7 SECONDS) 12.6 Laboratory Tests 12/15 0510 Hematology WBC (3.8 - 9.8 K/MM3) 7.7 RBC (3.95 - 5.67 M/MM3) 3.69 L Hgb (12.4 - 16.7 G/DL) 13.0 Hct (35.9 - 49.5 %) 40.3 MCV (81.7 - 96.1 fL) 109 H MCH (27.6 - 33.2 pg) 35.2 H MCHC (32.9 - 35.5 %) 32.3 L RDW (12.1 - 15.2 %) 12.3 Plt Count (129 - 368 K/MM3) 165 MPV (7.4 - 10.4 fl) 9.3 Neut % (Auto) (43 - 75 %) 64.1 Lymph % (Auto) (14 - 44 %) 20.5 [place] % (Auto) (4 - 13 %) 11.4 Eos % (Auto) (0 - 6 %) 3.0 Baso % (Auto) (0 - 2 %) 0.7 Neut # (Auto) (2.0 - 7.6 K/mm3) 4.92 Lymph # (Auto) (1.0 - 3.8 K/mm3) 1.57 [place] # (Auto) (0.1 - 0.8 K/mm3) 0.87 H Eos # (Auto) (0.0 - 0.2 K/mm3) 0.23 H Baso # (Auto) (0.0 - 0.2 K/mm3) 0.05 Immature Gran % (0.0 - 2.0 %) 0.3 Nucleated RBC % (0 - 1.0 %) 0.0 Nucleated RBCs # (Man) (0.0 - 0.1 K/mm3) 0.00 Laboratory Tests 12/15 0327 Serology SARS-CoV-2 Ag (Rapid) (Negative) NEGATIVE Laboratory Tests 12/15 0510 Coagulation APTT (26.2 - 35.4 SECONDS) 25.2 L Results: labs reviewed, vital signs reviewed, echo personally reviewed, EKG personally reviewed, rhythm personally rev'd, x-ray personally reviewed, currentmed profile rev'dEKG Interpretation: 2nd degree II AVBTelemetry Interpretation:2:1 AV Block, BradyEcho results:Reported Diagnosis, Assessment PlanProblem List/A P: 1. Bradycardia 2. CAD (coronary artery disease) 3. HTN (hypertension) 4. HLD (hyperlipidemia) 5. Macular degeneration of left eye 6. Deafness 7. 2nd degree AV block 8. H/O viral encephalitis 9. S/P hip replacement 10. S/P knee replacement 11. S/P shoulder replacement 12. S/P cholecystectomy Orders: Procedure Date/time Status IMPLANT 12/16 747 Active EKG 12/16 543 Active PROTHROMBIN TIME 12/16 431 Complete PTT ACTIVATED 12/16 431 Complete Code status: full codePlan discussed with: patient, admitting physician, consultants, patient care team, nurse Free Text DxA P NotesFree Text DxA P Notes:IMP: Syncope 2nd degree Type II AV block Symptomatic bradycardia CAD-stable -mild MR-mild PSVT Hx of LBBB HTN HLP PLAN: Continue close monitoring. Given continued 2nd degree AV block, will proceed with permanent pacing this am Risks/Benefits discussed in detail, pt willing to proceed. at 0753 RPT #:[id number] OF REPORTPRProgress [id number]:30:00Z.[id number] able for patient fdpuSGMSTJQBAGGPHJ0850-50-50L82:53:54 [facility] 2021-12-14 13:44:00 [id number] cZOuuLECImJYCOv5XhspHwfLiZJAI 6QHlLzseVWx7C9TKs8Bhccj5jFrYHr6726-99-42L79:44:00 [id number] [place] [id number] PATIENT NAME: CHARLIE HART ADMIT DATE: 12/13/21ACCOUNT NO: [id number] ROOM NO: [facility] AGE: 86 REPORT TYPE: ECHOCARDIOGRAM SEX: M ADMITTING PHYSICIAN:Alvaro Ron MD ATTENDING PHYSICIAN:Alvaro Ron MD *[facility]*[address] [place] [address] [id number] Transthoracic Echocardiogram Patient: Charlie HartStudy Date: 12/14/2021 BP: 163 / 69 Location: COCWUURN: [id number] : 1935 Age: 86 Height: 68 in / 172.7 cmAccession#: [id number] Gender: M Weight: 190 lb / 86.4 kgBMI/BSA: 28.9 kg/m 2 / 2.06 m 2 *Ordering Physician: * Deyvi Celis MD *Interpreting Physician: * Deyvi Celis MD*On Site Construction Superintendent: * Carmina Peralta RVT Indications: Hypertension. Study data: Transthoracic echocardiogram. Procedure: Transthoracicechocardiography was performed. Images were obtained using a Cyntellect cardiacultrasound machine. Image quality was suboptimal. M-mode, complete 2D,complete spectral Doppler, and color Doppler. Location: Emergencydepartment. Patient status: Inpatient. Patient room number: 3. Studystatus: Routine. Findings Left ventricle: The cavity size is normal. Wall thickness is normal.Systolic function is normal. The estimated ejection fraction is 55-60%.Wall motion is normal; there are no regional wall motion abnormalities.Pulmonary venous flow is not recorded. Left ventricular diastolic PATIENT NAME: CHARLIE HART function parameters are normal.Right ventricle: The cavity size is normal. Systolic function isnormal.Left atrium: The atrium is normal in size.Right atrium: The atrium is normal in size.Atrial septum: No defect or patent foramen ovale is identified.Aorta: The aortic root is not dilated.Aortic valve: The valve is trileaflet. The leaflets are moderatelythickened and mildly calcified. The findings are consistent with mildstenosis. There is no significant regurgitation.Mitral valve: The annulus is mildly calcified. The leaflets are mildlycalcified. There is mild regurgitation.Tricuspid valve: Not well visualized. There is mild regurgitation.Pulmonic valve: The leaflets are normal thickness. There is trivialregurgitation.Pericardium: A trivial pericardial effusion is identified. No evidenceof pleural fluid accumulation.Systemic veins:Inferior vena cava: The vessel is normal in size. Baseline ECG: Sinus bradycardia. Measurements Left ventricle Value Ref BHAVESH, LAX 5.6 cm 4.2 - 5.8 ESD, LAX 3.7 cm 2.5 - 4.0 ESD/bsa, LAX 1.8 cm/m 2 1.3 - 2.1 FS, LAX 34 % 25 - 43 PW, ED 0.9 cm 0.6 - 1.0 PW, ES 1.4 cm --------- IVS/PW, ED 1.01 --------- EF 63 % 52 - 72 IVRT 175 ms --------- E', lat demetrio, TDI 23.0 cm/sec >=10.0 E/e', lat demetrio, 7 --------- TDI E', med demetrio, TDI 22.0 cm/sec >=7.0 E/e', med demetrio, 7 --------- TDI E', avg, TDI 22.5 cm/sec --------- E/e', avg, TDI 7 <=14 LVOT Value Ref Diam, S 1.97 cm --------- Area 3.0 cm 2 --------- Peak yan, S 1.53 m/sec --------- Mean yan, S 1.15 m/sec --------- VTI, S 56.0 cm --------- Peak grad, S 9 mm Hg --------- Mean grad, S 6 mm Hg --------- SV 171 ml --------- PATIENT NAME: CHARLIE HART Qs 5.72 L/min --------- Qs/bsa 2.8 L/(min-m 2) --------- SV/bsa 83 ml/m 2 --------- Ventricular septum Value Ref IVS, ED 0.9 cm 0.6 - 1.0 IVS, ES 1.4 cm --------- Right ventricle Value Ref BHAVESH, LAX 2.5 cm --------- Pressure, S 22 mm Hg --------- S' lateral 18.0 cm/sec 6.0 - 13.4 RVOT Value Ref Peak v, S 0.85 m/sec --------- Peak grad, S 3 mm Hg --------- Left atrium Value Ref AP dim, ES 4.21 cm 3.00 - 4.00 Aortic valve Value Ref Peak v, S 2.91 m/sec --------- Mean v, S 1.97 m/sec --------- VTI, S 83.2 cm --------- Mean grad, S 17.6 mm Hg --------- Peak grad, S 33.9 mm Hg --------- LVOT/AV, VTI 0.67 --------- ratio VALERIE, VTI 2.01 cm 2 --------- LVOT/AV, Vpeak 0.53 --------- ratio VALERIE, Vmax 1.57 cm 2 --------- Mitral valve Value Ref Peak E 1.54 m/sec --------- Peak A 0.95 m/sec --------- Mean v, D 0.61 m/sec --------- VTI leaflet 62.1 cm --------- coapt Decel time 251 ms --------- PHT 90 ms --------- Mean grad, D 2.3 mm Hg --------- Peak grad, D 13.8 mm Hg --------- Peak E/A ratio 1.62 --------- MVA, PHT 2.5 cm 2 --------- Pulmonic valve Value Ref MI v, ED 0.34 m/sec --------- Tricuspid valve Value Ref TR peak v 3.16 m/sec <=2.8 Peak RV-RA grad, 40 mm Hg --------- PATIENT NAME: CHARLIE HART S Aortic root Value Ref Root diam 2.7 cm <4.2 Pulmonary artery Value Ref Pressure, S 9.3 mm Hg --------- Systemic veins Value Ref Estimated CVP 5 mm Hg --------- Conclusions Summary: 1. Left ventricle: The cavity size is normal. Wall thickness is normal. Systolic function is normal. The estimated ejection fraction is 55-60%. Wall motion is normal; there are no regional wall motion abnormalities. Left ventricular diastolic function parameters are normal.2. Right ventricle: The cavity size is normal. Systolic function is normal. The RV pressure during systole by Doppler is 22 mm Hg.3. Aortic valve: The findings are consistent with mild stenosis.4. Pericardium, extracardiac: A trivial pericardial effusion is identified. Prepared and electronically signed by Deyvi Celis MD12/14/2021 13:43 at 1344 PATIENT NAME: CHARLIE HART :44:0 0Z.[id number] for patient negqAIEHVTPWOVMGGM7256-88-20N34:44:31 [facility] 2021-12-14 08:13:00 [id number] 2Qe5blLUtqStW3xzIr41f0Rh94xC7 s7hPTXk3xZEFntygH4DezZ79Iw9mHl5161-50-89X45:13:00 [facility] Progress NoteREPORT#:[id number] REPORT STATUS: SignedDATE:12/14/21 TIME: 08 PATIENT: CHARLIE HART UNIT #: [id number]#: [id number] [address] AGE: 86 SEX: M ATTEND: Alvaro Ron [facility] AUTHOR: Allen Rausch MD R1 * ALL edits or amendments must be made on the electronic/computer document * Allen Rausch 12/14/21 0813:SubjectiveChief complaint:transfer for low HRHPI:Mr. Hart remains bradycardic with HR in 30s despite discontinuation of Metoprolol for 3 days now. He was a bit hypertensive overnight. He is resting comfortably in bed and conversational on nasal cannula. He complains of a sore throat which he attributes to dryness from the nasal O2. He denies any fever, chills, chest pain, SOB, lightheadedness, dizziness, nausea, vomiting, diarrhea,constipation, or dysuria. Review of SystemsConstitutional:Denies: chills, fatigue, fever, generalized weakness, lethargy, malaise, recent wt loss, other. Respiratory:Denies: pleuritic pain, SOB, wheezing. Cardiovascular:Denies: chest pain, edema, orthopnea, palpitations. GI:Denies: abdominal pain, constipation, diarrhea, nausea, vomiting. Neuro:Denies: change in LOC, confusion, dizziness, focal weakness, headache, lightheaded, spinning sensation, syncope, weakness. All systems rev neg: except as marked Objective GeneralVS/I O:Vital Signs: Date Time Temp Pulse Resp B/P B/P Pulse O2 O2 Flow FiO2 Mean Ox Delivery Rate 12/14 0622 30 18 172/68 98 2 12/14 0620 Nasal 2 21 cannula 12/14 0321 33 20 165/68 98 2 12/14 0141 Nasal 2 21 cannula 12/14 0039 Nasal 2 21 cannula 12/14 0037 32 17 145/66 97 2 12/13 2145 98.1 32 28 144/99 96 12/13 1942 34 20 136/61 95 12/13 1835 32 20 158/70 99 99 12/13 1647 97.5 34 20 177/72 107 99 24 hour I O ending at 0700: 12/14 0700 12/13 1900 Intake Total Output Total Balance Patient 86.364 kg Weight Weight Stated/Reported Measurement Method PATIENT WEIGHT: Weight (lb): Weight (oz): Weight (kg): 86.364 Medications:Active Meds + DC'd Last 24 HrsAtorvastatin Calcium (LIPITOR) 10 MG BEDTIME PO Aspirin (CHILDREN'S ASPIRIN) 81 MG DAILY PO Clopidogrel Bisulfate (PLAVIX) 75 MG DAILY PO (WDA) Isosorbide Mononitrate (IMDUR) 30 MG DAILY PO Tramadol HCl (ULTRAM) 50 MG Q8H PRN PRN PO Hydralazine HCl (APRESOLINE) 10 MG Q6H PRN PRN IV Docusate Sodium (COLACE) 100 MG BID PO Enoxaparin Sodium (LOVENOX) 40 MG 1800 SUBQ Acetaminophen (TYLENOL) 650 MG Q6H PRN PRN PO Nutrition assessment:The data set between the solid lines has been imported from the dietitian's assessment. Any exceptions have been noted under Provider comments. BMI Calculated: 28.9Nutrition related diagnosis: Nutrition diagnosis details: Nutrition problem: Nutrition etiology: Nutrition signs and symptoms: Nutrition prescription: Dietitian name: Assessment completed: Provider comments on imported dietitian assessment: Physical ExamGeneral appearance: alert, awake, oriented, no acute distress, pleasant, conversational, mental status normal, no respiratory distressHead/Eyes: atraumatic, clear cornea, normal conjunctiva/scleraENT: moist mucosal membranes, normal noseNeck: full range of motion, non-tenderCardiovascular: bradycardic, normal heart soundsRespiratory: aerating well, clear to auscultation, symmetric expansionAbdomen: non-tender, normal bowel sounds, softGenitourinary: no flank painExtremities: edema, moves all, no clubbing, no cyanosis, R hand hardscape foreman mildly lowerMusculoskeletal: normal inspection, no muscle spasmNeuro/BOARD WRITER: alert, oriented X 3, no motor deficitsSkin: intact, no rashPsychiatry: normal affect, normal mood ResultsFindings/Data:Laboratory Tests 12/14 12/14 12/13 12/13 0550 0100 1700 1700Chemistry Sodium (137 - 145 MMOL/L) 139 140 Potassium (3.5 - 5.1 MMOL/L) 4.0 4.3 Chloride (98 - 107 MMOL/L) 109 H 107 Carbon Dioxide (22 - 30 MMOL/L) 25 26 Anion Gap (14 - 24 MMOL/L) 9 L BUN (9 - 20 MG/DL) 15 15 Creatinine (0.66 - 1.25 MG/DL) 1.00 1.00 Glomerular Filtr Rate > 60 > 60 Glucose (74 - 106 MG/DL) 81 92 Calcium (8.4 - 10.2 MG/DL) 7.8 L 8.5 Total Bilirubin (0.2 - 1.3 MG/DL) 1.5 H AST (17 - 59 UNITS/L) 18 ALT (0 - 49 UNITS/L) 10 Total Alk Phosphatase (38 - 126 56UNITS/L) Troponin I (0.012 - 0.033 NG/ML) < 0.012 L < 0.012 L < 0.012 L NT-Pro-B Natriuret Pep (0 - 450 pg/mL) 728.0 H Total Protein (6.2 - 7.6 G/DL) 6.3 Albumin (3.5 - 5.0 G/DL) 3.5 TSH (0.465 - 4.68 MIU/L) 1.310 Laboratory Tests 12/14 12/13 0550 1700 Hematology WBC (3.8 - 9.8 K/MM3) 6.8 7.4 RBC (3.95 - 5.67 M/MM3) 3.79 L 3.45 L Hgb (12.4 - 16.7 G/DL) 13.5 12.3 L Hct (35.9 - 49.5 %) 41.5 37.3 MCV (81.7 - 96.1 fL) 110 H 108 H MCH (27.6 - 33.2 pg) 35.6 H 35.7 H MCHC (32.9 - 35.5 %) 32.5 L 33.0 RDW (12.1 - 15.2 %) 12.2 12.2 Plt Count (129 - 368 K/MM3) 166 169 MPV (7.4 - 10.4 fl) 9.3 9.4 Neut % (Auto) (43 - 75 %) 65.3 59.8 Lymph % (Auto) (14 - 44 %) 22.3 26.6 [place] % (Auto) (4 - 13 %) 8.9 9.8 Eos % (Auto) (0 - 6 %) 2.6 3.0 Baso % (Auto) (0 - 2 %) 0.6 0.7 Neut # (Auto) (2.0 - 7.6 K/mm3) 4.46 4.45 Lymph # (Auto) (1.0 - 3.8 K/mm3) 1.52 1.98 [place] # (Auto) (0.1 - 0.8 K/mm3) 0.61 0.73 Eos # (Auto) (0.0 - 0.2 K/mm3) 0.18 0.22 H Baso # (Auto) (0.0 - 0.2 K/mm3) 0.04 0.05 Immature Gran % (0.0 - 2.0 %) 0.3 0.1 Nucleated RBC % (0 - 1.0 %) 0.0 0.0 Nucleated RBCs # (Man) (0.0 - 0.1 K/mm3) 0.00 0.00 Diagnosis, Assessment PlanConsultants: cardiology Free Text DxA P NotesFree text DxA P notes:Mr. Hart is an 86-year-old man with PMH HTN, CAD, HLD, deafness, and macular degeneration who presented to the ED with syncope. He was found to be bradycardic with HR in 20s-30s and admitted for second degree heart block. 1. 2nd degree AV block* Thought to be due to metoprolol. * Continue telemetry monitoring. * HR 20s-30s, pt hemodynamically stable. * Dr. Celis to place permanent pacemaker on 12/15 if HR doesn't improve. 2. Bradycardia* Due to 2nd degree heart block, see above. 3. CAD (coronary artery disease)* Trops x3 WNL, continue ASA, plavix. 4. HTN (hypertension)* Remains hypertensive, will continue imdur for now. 5. HLD (hyperlipidemia)* cont atorvastatin, Bili slightly high. 6. Macular degeneration of left eye* Chronic, left eye blind. 7. Deafness* Chronic, From work related injury. 8. H/O viral encephalitis* Chronic, causing gait issues, uses a cane. Diet: Cardiac, NPO after midnight for psb procedure. DVT PPX: LovenoxCode Status: Full Code Quality: Gen Med Crit Care VTE ProphylaxisVTE prophylaxis initiated: yes Current MedicationsCurrent medication review:I attest that the foregoing medication list in the medical record is true, accurate, and complete to the best of my knowledge. Advanced Care Plan 65 or OlderDiscussed with: patientDiscussion included: code status AttestationsAttestation needed: teaching physician Alvaro Ron 12/14/21 5494:Attestations Teaching Physician AttestationF/U visit w/ resident:I saw the patient with the resident and . . . agree with the resident's findings and plan. at 1633 at 1724 RPT #:[id number] OF REPORTPRProgress [id number]:13:00Z.[id number] able for patient tojjCZDWGXUFSNGGKG3431-74-01N07:34:06 [facility] 2021-12-14 06:39:00 [id number] 4LmisHq2dWx+tldGXOkRY/mid8W4e X0k8FODmtcqsqtRuYtaWtbRfrjQ85J7341-12-39W01:39:00 [facility])Cardiology Progress NoteREPORT#:[id number] REPORT STATUS: SignedDATE:12/14/21 TIME: 06 PATIENT: CHARLIE HART UNIT #: [id number]#: [id number] [address] AGE: 86 SEX: M ATTEND: Alvaro Ron [facility] AUTHOR: Kyree Noble MD * ALL edits or amendments must be made on the electronic/computer document * SubjectiveChief complaint:Syncope.Patient reports:No: chest pain, dizziness, palpitations, shortness of breath. Objective GeneralVS/I O:24 hour I O ending at 0700: 12/14 0700 12/13 1900 Intake Total Output Total Balance Patient 86.364 kg Weight Weight Stated/Reported Measurement Method Vital Signs: Date Time Temp Pulse Resp B/P B/P Pulse O2 O2 Flow FiO2 Mean Ox Delivery Rate 12/14 06 30 18 172/68 98 2 12/14 06 Nasal 2 21 cannula 12/14 0321 33 20 165/68 98 2 12/14 0141 Nasal 2 21 cannula 12/14 0039 Nasal 2 21 cannula 12/14 0037 32 17 145/66 97 2 12/13 2145 98.1 32 28 144/99 96 12/13 1942 34 20 136/61 95 12/13 1835 32 20 158/70 99 99 12/13 1647 97.5 34 20 177/72 107 99 PATIENT WEIGHT: Weight (lb): Weight (oz): Weight (kg): 86.364 Medications:Active Meds + DC'd Last 24 HrsAtorvastatin Calcium (LIPITOR) 10 MG BEDTIME PO Aspirin (CHILDREN'S ASPIRIN) 81 MG DAILY PO Clopidogrel Bisulfate (PLAVIX) 75 MG DAILY PO Isosorbide Mononitrate (IMDUR) 30 MG DAILY PO Tramadol HCl (ULTRAM) 50 MG Q8H PRN PRN PO Hydralazine HCl (APRESOLINE) 10 MG Q6H PRN PRN IV Docusate Sodium (COLACE) 100 MG BID PO Enoxaparin Sodium (LOVENOX) 40 MG 1800 SUBQ Acetaminophen (TYLENOL) 650 MG Q6H PRN PRN PO Physical ExamGeneral appearance: alert, awake, orientedHead/Eyes: atraumatic, normocephalicENT: moist mucosal membranesNeck: no JVDCardiovascular: CV assessment: regular rate and rhythmRespiratory: clear to auscultation, no distressLower extremity: LE assessment: no edemaMusculoskeletal: full range of motionNeuro/BOARD WRITER: alert, oriented X 3, CN II-XII intactSkin: dry, intactPsychiatry: normal affect, normal judgment/insight, normal mood ResultsFindings/Data:Laboratory Tests 12/14 12/13 12/13 0100 1700 1700 Chemistry Sodium (137 - 145 MMOL/L) 140 Potassium (3.5 - 5.1 MMOL/L) 4.3 Chloride (98 - 107 MMOL/L) 107 Carbon Dioxide (22 - 30 MMOL/L) 26 BUN (9 - 20 MG/DL) 15 Creatinine (0.66 - 1.25 MG/DL) 1.00 Glomerular Filtr Rate > 60 Glucose (74 - 106 MG/DL) 92 Calcium (8.4 - 10.2 MG/DL) 8.5 Total Bilirubin (0.2 - 1.3 MG/DL) 1.5 H AST (17 - 59 UNITS/L) 18 ALT (0 - 49 UNITS/L) 10 Total Alk Phosphatase (38 - 126 UNITS/L) 56 Troponin I (0.012 - 0.033 NG/ML) < 0.012 L < 0.012 L NT-Pro-B Natriuret Pep (0 - 450 pg/mL) 728.0 H Total Protein (6.2 - 7.6 G/DL) 6.3 Albumin (3.5 - 5.0 G/DL) 3.5 TSH (0.465 - 4.68 MIU/L) 1.310 Laboratory Tests 12/13 1700 Hematology WBC (3.8 - 9.8 K/MM3) 7.4 RBC (3.95 - 5.67 M/MM3) 3.45 L Hgb (12.4 - 16.7 G/DL) 12.3 L Hct (35.9 - 49.5 %) 37.3 MCV (81.7 - 96.1 fL) 108 H MCH (27.6 - 33.2 pg) 35.7 H MCHC (32.9 - 35.5 %) 33.0 RDW (12.1 - 15.2 %) 12.2 Plt Count (129 - 368 K/MM3) 169 MPV (7.4 - 10.4 fl) 9.4 Neut % (Auto) (43 - 75 %) 59.8 Lymph % (Auto) (14 - 44 %) 26.6 [place] % (Auto) (4 - 13 %) 9.8 Eos % (Auto) (0 - 6 %) 3.0 Baso % (Auto) (0 - 2 %) 0.7 Neut # (Auto) (2.0 - 7.6 K/mm3) 4.45 Lymph # (Auto) (1.0 - 3.8 K/mm3) 1.98 [place] # (Auto) (0.1 - 0.8 K/mm3) 0.73 Eos # (Auto) (0.0 - 0.2 K/mm3) 0.22 H Baso # (Auto) (0.0 - 0.2 K/mm3) 0.05 Immature Gran % (0.0 - 2.0 %) 0.1 Nucleated RBC % (0 - 1.0 %) 0.0 Nucleated RBCs # (Man) (0.0 - 0.1 K/mm3) 0.00 Laboratory Tests 12/14 12/13 0100 1700 Chemistry Troponin I (0.012 - 0.033 NG/ML) < 0.012 L < 0.012 L Diagnosis, Assessment PlanConsultants: cardiology Free Text DxA P NotesFree Text DxA P Notes:IMP: Syncope 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 If continued 2nd degree AV block, will proceed with permanent pacing. at [address] [facility] #:[id number] OF REPORTPRProgress [id number]:39:00Z.[id number] able for patient waxjFMHYSUTRLFXYUU3137-55-32J04:02:43 [facility] 2021-12-13 18:41:00 [id number] sSccPTfTafltTyzV4V338UNP/DELI IIDvbW5fsPmY5mN0MST3Hh6vSlaA064424-89-60C54:41:00 [id number] [place] [address] PATIENT NAME: CHARLIE HART ADMIT DATE: 12/13/21ACCOUNT NO: [id number] ROOM NO: [facility] AGE: 86 REPORT TYPE: CONSULTATION REPORT SEX: M ADMITTING PHYSICIAN:Alvaro Ron MD ATTENDING PHYSICIAN:Alvaro Ron MD CONSULTATION DATE: 12/13/2021 CONSULTING PHYSICIAN: Kyree Noble MD REFERRING PHYSICIAN: Alvaro Ron MD REASON FOR CONSULTATION: We were asked to evaluate this patient for syncope. HISTORY OF PRESENT ILLNESS: This is an 86-year-old male with a history ofhypertension and dyslipidemia, who was transferred from [facility] after he presented there for an episode of syncope. He was found to bebradycardic with complete second degree heart block. He has been stable intransfer. Currently, he has no complaints of chest pain, shortness of breath,dizziness, or near syncope. States he has felt poorly for approximately 1 week. PAST MEDICAL HISTORY: Hypertension and dyslipidemia. He had history of CVA,GERD, macular degeneration, and prostate cancer. SOCIAL HISTORY: No tobacco. Remote alcohol. FAMILY HISTORY: Positive for cardiomegaly in his mother. ALLERGIES: NKDA. HOME MEDICATIONS: Prednisone, alendronate, cyclobenzaprine,hydrochlorothiazide, losartan, lovastatin, and magnesium oxide. REVIEW OF SYSTEMS:CONSTITUTIONAL: No complaints of fever or chills.ENMT: No complaints of headache.EYES: No complaints of blurred vision.RESPIRATORY: No complaints of shortness of breath or cough.CARDIOVASCULAR: No complaints of chest pain or palpitations.GASTROINTESTINAL: No complaints of nausea or vomiting.GENITOURINARY: No complaints of urinary frequency or dysuria.MUSCULOSKELETAL: No complaints of joint pain.SKIN: No complaints of skin rash.NEUROLOGIC: Syncope as noted above. PHYSICAL EXAMINATION:GENERAL: Elderly male, in no acute distress.VITAL SIGNS: Temperature of 97.5, blood pressure of 177/72, pulse of 34, PATIENT NAME: CHARLIE HART respiratory rate of 20, and O2 sat of 99%.ENMT: Atraumatic and normocephalic.RESPIRATORY: Normal effort. Clear to auscultation bilaterally.CARDIOVASCULAR: Bradycardic, S1 and S2. No S3 or S4.NECK: JVP is normal. There are no carotid bruits.EXTREMITIES: No edema.NEUROLOGIC: Cranial nerves II through XII are intact. LABORATORY DATA AND DIAGNOSTIC STUDIES: White blood cell count of 7.4,hemoglobin of 12.3, and platelets of 169. Sodium of 140, potassium of 4.3,chloride of 107, CO2 of 26, BUN of 15, creatinine of 1.0, glucose of 92, andcalcium of 8.5. Troponin I is less than 0.012. NT-proBNP is 728. Electrocardiogram shows a type 2 second-degree AV block with right bundle-branchblock. IMPRESSION:1. Syncope.2. Second-degree atrioventricular block. RECOMMENDATIONS:1. Hold negative chronotropic medications.2. Monitor closely on telemetry.3. Likely will need a permanent pacemaker if AV block does not improve. Dictated By: Kyree Noble MD WT: CON:SANDEE/TAYE/NTSDD: 12/13/2021 18:41:17DT: 12/13/2021 23:15:56Conf#: [id number]/DID#: [id number] Authenticated by Kyree Noble MD On 12/14/2021 06:49:14 AM at 0649 PATIENT NAME: CHARLIE HART :15:00Z.[place] [id number] for patient yvpjZUZCPWPGOIWGTO5287-03-52E14:50:02 [facility] 2021-12-13 17:18:00 [id number] 5huFaxywfI3+SGCv3PjbY96FaZLl0K9246-28-16W00:18:00 [facility] History PhysicalREPORT#:[id number] REPORT STATUS: SignedDATE:12/13/21 TIME: 1718 PATIENT: CHARLIE HART UNIT #: [id number]#: [id number] [address] AGE: 86 SEX: M ATTEND: Alvaro Ron AUTHOR: Alvaro Ron MD * ALL edits or amendments must be made on the electronic/computer document * History of Present Illness HPIChief complaint:transfer for low HRPCP:PCP: Dr Celis HPI: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 he was taken to ER and was found to be significantly bradycardic. last dose metoprolol 2 nights ago. BB started in September as a new meds.Currently pt is very alert, no chest pain, no nausea or vomiting but HR ranges from mid 20's to mid 30's. DW DR noble who has seen the pt already, no intervention as pt is asymptomatic History Past Medical Surgical HxPatient History: 1. CAD (coronary artery disease) 2. HTN (hypertension) 3. HLD (hyperlipidemia) 4. Macular degeneration of left eye 5. Deafness Family HistoryFamily history:Reports: Heart disease, Hypertension. Social HistoryAlcohol use: Denies EtOH useDrug use: Denies recreational drugsSmoking status: Smoking status for patients 13 years old or older: Former Smoker Medication/Allergy-Vaccine HxMedications:Metoprolol, plavix, tramadol, imdur, atorvastatinAllergies:Coded Allergies:No Known Allergies (12/13/21) Review of SystemsConstitutional:Reports: fatigue, generalized weakness. Denies: chills. Skin:Denies: abrasion, contusion, itching. Allergy/Immun:Denies: hives, itching. Eyes:Reports: other (blind left eye). ENT:Reports: hearing loss. Respiratory:Denies: MENDOZA (dyspnea on exertion), pneumonia, SOB. Cardiovascular:Reports: edema. Denies: chest pain, MENDOZA (dyspnea on exertion), palpitations. GI:Denies: abdominal pain, nausea, vomiting. :Denies: dysuria. Musculoskeletal:Reports: joint pain. Denies: arthritis. Heme:Denies: bleeding, bruising. Neuro:Reports: dizziness, gait problem, syncope. Denies: bladder dysfunction, bowel dysfunction, confusion, focal weakness, seizure, slurred speech, unable to speak, vision change. Psych:Denies: agitation, anxiety. All systems rev neg: except as noted Physical ExamVS/I O:Vital Signs Date Temp Pulse Resp B/P B/P Mean Pulse Ox FiO2 12/13 97.5 34 20 177/72 107 99 Last Documented: Result Date Time Pulse Ox 99 12/13 1647 B/P 177/72 12/13 1647 B/P Mean 107 12/13 1647 Temp 97.5 12/13 1647 Pulse 34 12/13 1647 Resp 20 12/13 1647 Patient Weight and BMI Weight (kg): 86.364 BMI: 28.9 General appearance: alert, awake, oriented, no acute distress, pleasant, conversational, mental status normalHead/Eyes: atraumatic, clear cornea, normal conjunctiva/scleraENT: moist mucosal membranes, normal noseNeck: full range of motion, non-tenderCardiovascular: bradycardic, normal heart soundsRespiratory: aerating well, clear to auscultation, symmetric expansionAbdomen: non-tender, normal bowel sounds, softGenitourinary: no flank painExtremities: edema, moves all, no clubbing, no cyanosis, R hand hardscape foreman mildly lowerMusculoskeletal: normal inspection, no muscle spasmNeuro/BOARD WRITER: alert, oriented X 3, no motor deficitsSkin: intact, no rashPsychiatry: normal affect, normal mood ResultsFindings/Data:Laboratory Tests: 12/13 1700 Hematology WBC (3.8 - 9.8 K/MM3) 7.4 RBC (3.95 - 5.67 M/MM3) 3.45 L Hgb (12.4 - 16.7 G/DL) 12.3 L Hct (35.9 - 49.5 %) 37.3 MCV (81.7 - 96.1 fL) 108 H MCH (27.6 - 33.2 pg) 35.7 H MCHC (32.9 - 35.5 %) 33.0 RDW (12.1 - 15.2 %) 12.2 Plt Count (129 - 368 K/MM3) 169 MPV (7.4 - 10.4 fl) 9.4 Neut % (Auto) (43 - 75 %) 59.8 Lymph % (Auto) (14 - 44 %) 26.6 [place] % (Auto) (4 - 13 %) 9.8 Eos % (Auto) (0 - 6 %) 3.0 Baso % (Auto) (0 - 2 %) 0.7 Neut # (Auto) (2.0 - 7.6 K/mm3) 4.45 Lymph # (Auto) (1.0 - 3.8 K/mm3) 1.98 [place] # (Auto) (0.1 - 0.8 K/mm3) 0.73 Eos # (Auto) (0.0 - 0.2 K/mm3) 0.22 H Baso # (Auto) (0.0 - 0.2 K/mm3) 0.05 Immature Gran % (0.0 - 2.0 %) 0.1 Nucleated RBC % (0 - 1.0 %) 0.0 Nucleated RBCs # (Man) (0.0 - 0.1 K/mm3) 0.00 Laboratory Tests 12/13/21 1700:[Embedded Image Not Available] Diagnosis, Assessment PlanProblem List/A P: 1. 2nd degree AV block Thought to be due to meds 2. Bradycardia Thought to be due to metoprolol No PM, no dopamine, isoprotrenol pt has secondary heart block Keep in ICU, close monitering Full code DVT prophylaxis Hemodynamically stable 3. CAD (coronary artery disease) trend enzymes, continue ASA, plavix 4. HTN (hypertension) Initially higher, will continue imdur for now 5. HLD (hyperlipidemia) cont atorvastatin, Bili slightly high 6. 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 Deafness From work related injury 8. H/O viral encephalitis causing gait issues, uses a cane Consultants: cardiology Quality: Gen Med Crit Care VTE ProphylaxisVTE prophylaxis initiated: yes Current MedicationsCurrent medication review:I attest that the foregoing medication list in the medical record is true, accurate, and complete to the best of my knowledge. Advanced Care Plan 65 or OlderDiscussed with: patientDiscussion included: code status SyncopeECHO ordered: yes susp.cardiac etiology at 2126 RPT #:[id number] OF REPORTHPHistory and physical jkwyhquzbtf0839-71-85G73:18:00Z.[id number] AVAvailable for patient pwvlVYCNZYGCYOFNRR4347-83-29C30:26:24 [facility] 2021-12-13 17:00:00 [id number] IPlTZf/gTk1UJ5nF7XF731Q3fOHnj m9slXBrhjsNROLzxn1UQ1TIyidODSc5392-31-04K26:00:00 [facility] ([facility])EMERGENCY PROVIDER REPORTREPORT#:[id number] REPORT STATUS: SignedDATE:12/13/21 TIME: 1700 PATIENT: CHARLIE HART UNIT #: [id number] ROOM/BED: BRIDGER1AGE: 86 SEX: M PCP PHYS: No Primary or Family PhysicianSERVICE AUTHOR: Thanh Peralta MD LOCATION: [facility] * ALL edits or amendments must be made on the electronic/computer document * HPI-Syncope Free Text HPI NotesFree Text HPI NotesThibrooklyn is an 86-year-old male with a history of hypertension, dyslipidemia who presents to the emergency department from an outside facility due to extreme bradycardia associate with possible syncope. Patient states that he was having episodes where he "blacked out" and came to the emergency department where they found him to have a low heart rate in the upper 20s. Patient at this time feelswell, has no specific complaints. Patient states that he is on metoprolol but paperwork states that he has not. GeneralConfirmed Patient YesPatient Type New patientInitial Greet Date/Time 12/13/211646 PresentationChief Complaint Became unresponsive)( Onset Occurred Sudden Risk-Syncope Risk Stratification)( Coronary Artery Disease Risk factors reviewed)( Thoracic Aortic Dissection Risk factors reviewed)( Pulmonary Embolism Risk factors reviewed Review of Systems ROS StatementsAll systems rev neg except as marked.Complete sys rev neg except as marked. Basic Review of SystemsBasic ROS : No dysuria/frequency, HEM: No bleeding/bruising Past Medical History - AdultStated Complaint ER TRANSFER [facility] [place] [facility], 2ND DEGREE BLOCKAllergiesCoded Allergies:No Known Allergies (12/13/21) Pt reports no significant: Past medical history, Past surgical history, Family history, Social historySmoking status: Smoking status for patients 13 years old or older: Unknown,if ever smoked Physical Exam Vital SignsVital SignsFirst Documented: Result Date Time Pulse Ox 99 12/13 1647 B/P 177/72 12/13 1647 B/P Mean 107 12/13 1647 Temp 36.4 12/13 164 Pulse 34 12/13 1647 Resp 12/13 Last Documented: Result Date Time Pulse Ox 99 12/13 1647 B/P 177/72 12/13 1647 B/P Mean 107 12/13 1647 Temp 36.4 12/13 1647 Pulse 34 12/13 1647 Resp 12/13 164 Review of Vital Signs Reviewed Free Text PE NotesFree Text PE NotesGeneral: awake, alert, NADHead: atraumatic, normocephalicEyes: atraumatic, normal Conjunctiva, normal lidsEar/Nose/Throat: atraumatic, airway patent, no exudate, no drainageNeck: Full ROM, Trachea midlineRespiratory: atraumatic, no respiratory distress, no deformity, no wheezingCardiovascular: no edema, no JVD, no clubbingAbdomen: soft, non-distended, no gaurding, no massBack: no deformities, atraumatic, appropriate range of motion in extremitiesSkin: warm, dry, appropriate color, no ecchymosisExtremities: atraumatic, no gross deformityNeuro: no aphasia, no dysarthria, gross motor function normalPsychiatric: appropriate mood, appropriate affect Interpretation Diagnostics Lab Results Interpretation Lab Imaging StatementLaboratory radiographic studies reviewed and considered in the medical decision-making. ECG #1 InterpretationDate 12/13/21Time 1635Interpreted by ED physicianNL ECG Interpretation No acute ischemic changes, No STEMI, Adequate tracingRate 30Rhythm Bradycardia Re-Evaluation MDM )( Re-Evaluation/Progress #1Text/Dict Noted/w dr celis, ok to admit to imu, dr noble aware of patient/will see, admit to dr ron.)( Re-Eval Status Improved Patient Discharge Departure Vital Signs/ConditionVital SignsFirst Documented: Result Date Time Pulse Ox 99 12/13 1647 B/P 177/72 12/13 1647 B/P Mean 107 12/13 1647 Temp 36.4 12/13 1647 Pulse 34 12/13 1647 Resp 20 12/13 1647 Last Documented: Result Date Time Pulse Ox 99 12/13 1647 B/P 177/72 12/13 1647 B/P Mean 107 12/13 1647 Temp 36.4 12/13 1647 Pulse 34 12/13 1647 Resp 20 12/13 1647 All vital signs available at the time of this entry have been reviewed. Clinical ImpressionClinical ImpressionPrimary Impression: Bradycardia Disposition DecisionAdmit Admit Physician Name Alvaro Ron MD Admit Physician Hospitalist Request Time 171 Request Date 12/13/21 )( Admission Accepts Yes )( Accepted Time 1710 )( Accepted Date 12/13/21 Call Information will see patient at 1219RPT #:[id number] OF REPORTEDEmerpinnacle pointe hospitalcy department cqcppd9903-93-87J94:00:00Z.[id number] ilable for patient wrhvLAEQTXHOREKEOP9288-59-99G68:20:06 [facility]
[2023-10-04 10:28] LABS: Absolute Basophils 0.1 K/uL (0-0.5); Absolute Eosinophils 0.1 K/uL (0-0.5); Absolute Lymphocytes (CBC) 0.7 K/uL (0.7-4.9); Basophils % 0.8 % (0-1.3); Eosinophils % 0.9 % (0-4.4); Hematocrit 29.7 % (39.6-49.0); Lymphocytes % 10.2 % (15.3-44.8); MCV 94.8 fL (80-100); MPV 6.8 fL (7.6-11.3); Platelets 300 thou/uL (152-406); RBC Red Blood Cell Count 3.13 M/uL (4.33-5.43)
[2023-10-04 10:39] LABS: Anion Gap 9.1 mEq/L (5.0-15.0); Potassium 4.1 mEq/L (3.5-5.1)
[2023-10-04 10:40] LABS: Calcium Oxalate Crystals- Ur Few /HPF (None Seen); Specific Gravity 1.024 (1.005-1.030); Urine Bacteria <20 /HPF (<20); Urine Bilirubin NEGATIVE (Negative); Urine Blood Negative (Negative); Urine Clarity Extremely Turbid (Clear); Urine Color Yellow (Yellow); Urine Glucose NEGATIVE (Negative); Urine Mucus Slight /HPF (None Seen); Urine Protein TRACE (Negative); Urine Urobilinogen 1+ (Normal); Urine pH 5.5 (5.0-7.0)
--- NOTE | 2023-10-04 11:04 | RAD REPORT ---
EXAM DESCRIPTION: RAD - Hip Left 2 View - 10/04/2023 10:41 am CLINICAL HISTORY: PAIN COMPARISON: Hip Left 2 View dated 09/16/2023; Hip Left 1 View dated 06/02/2023 FINDINGS/IMPRESSION: Superiorly and laterally dislocated left hip arthroplasty. No fracture identifi ed . .
[2023-10-04 11:29] LABS: Platelet Estimate ADEQ; White Blood Cell Scan OK (OK)
[2023-10-04 11:30] LABS: Anisocytosis 1+; Blood Morphology Comment NOTED (NOT SEEN)
--- NOTE | 2023-10-04 11:37 | RAD REPORT ---
EXAM DESCRIPTION: RAD - Hip Left 2 View - 10/04/2023 11:22 am CLINICAL HISTORY: post reduction COMPARISON: Hip Left 2 View dated 10/04/2023; Hip Left 2 View dated 09/16/2023 FINDINGS/IMPRESSION: Relocated left hip arthroplasty. No fracture .
--- NOTE | 2023-10-04 11:49 | EDPHYS ---
Physician Documentation [facility] Name: Charlie Hart Age: 88 yrs Sex: Male : 1935 Arrival Date: 10/04/2023 Time: 09:25 Bed 2 Private MD: ED Physician Wally Arias HPI: 10/03 09:05 This 88 yrs old Male presents to ER via EMS with complaints of Hip Injury. jh7 09:05 The patient or guardian reports decreased range of motion, deformity, possible jh7 dislocation. that occurred at a senior living or assisted living facility, sustained from Moving the patient to his bed. the left leg is internally rotated, The patient is not able to ambulate. Patient is not able to bear weight. There is no radiation of the patient's discomfort. The complaints affect the Left hip. Onset: The symptoms/episode began/occurred acutely. Modifying factors: the symptoms are aggravated by any movement. Associated signs and symptoms: Loss of consciousness: the patient experienced no loss of consciousness, Pertinent negatives: abdominal pain, chest pain, dysuria, fever, shortness of breath, vomiting. Historical: - Allergies: : No Known Allergies; iw - Home Meds: :33 amiodarone 200 mg Oral tablet 2 times per day [Active]; apixaban 5 mg oral tablet 2 iw times per day [Active]; ascorbic acid (vitamin C) 500 mg tablet daily [Active]; atorvastatin 80 mg oral tablet every evening [Active]; ferrous sulfate 325 mg (65 mg iron) Oral tablet daily [Active]; methocarbamol 500 mg Oral tablet every 8 hours [Active]; metoprolol succinate oral 12.5 mg daily [Active]; Plavix 75 mg Oral tablet daily [Active]; tramadol 50 mg Oral tablet 2 times per day [Active]; - PMHx: 09:30 CAD; chronic kidney disease; CVA; GERD; Hyperlipidemia; Hypertension; macular iw degeneration; macular degeneration; osteoarthritis; Pre-Diabetes; Prostate Cancer; stroke; West Nile Virus; - PSHx: 09:30 bilateral knee replacement; cataract repair; Cholecystectomy; hip/shoulder replacement; iw pacemaker; - Immunization history:: Adult Immunizations unknown. - Social history:: Smoking status: unknown. ROS: 09:05 Constitutional: Negative for fever, chills, and weight loss, Eyes: Negative for injury, jh7 pain, redness, and discharge, ENT: Negative for injury, pain, and discharge, Neck: Negative for injury, pain, and swelling, Cardiovascular: Negative for chest pain, palpitations, and edema, Respiratory: Negative for shortness of breath, cough, wheezing, and pleuritic chest pain, Abdomen/GI: Negative for abdominal pain, nausea, vomiting, diarrhea, and constipation, Back: Negative for injury and pain, Skin: Negative for injury, rash, and discoloration, Neuro: Negative for headache, weakness, numbness, tingling, and seizure, 09:05 MS/extremity: Positive for injury or acute deformity, decreased range of motion, pain, of the left hip, 09:05 All other systems are negative, Exam: 09:05 Constitutional: This is a well developed, well nourished patient who is awake, alert, jh7 and in no acute distress. Head/Face: Normocephalic, atraumatic. Neck: Trachea midline, no thyromegaly or masses palpated, and no cervical lymphadenopathy. Supple, full range of motion without nuchal rigidity, or vertebral point tenderness. No Meningismus. Cardiovascular: Regular rate and rhythm with a normal S1 and S2. No gallops, murmurs, or rubs. Normal PMI, no JVD. No pulse deficits. Respiratory: Lungs have equal breath sounds bilaterally, clear to auscultation and percussion. No rales, rhonchi or wheezes noted. No increased work of breathing, no retractions or nasal flaring. Abdomen/GI: Soft, non-tender, with normal bowel sounds. No distension or tympany. No guarding or rebound. No evidence of tenderness throughout. Skin: Warm, dry with normal turgor. Normal color with no rashes, no lesions, and no evidence of cellulitis. Neuro: Awake and alert, GCS 15, oriented to person, place, time, and situation. Sensory grossly intact. 09:05 Musculoskeletal/extremity: Extremities: noted in the left hip: deformity, ROM: limited passive range of motion due to pain, in the left hip, Circulation is intact in all extremities. Pulses: are normal with no appreciated deficits, Sensation intact. Vital Signs: 09:32 BP 117 / 76; Pulse 77; Resp 16; Temp 98; Pulse Ox 95% on R/A; iw 10:30 BP 109 / 62; Pulse 78; Resp 18; Pulse Ox 99% on R/A; ph 11:55 BP 102 / 63; Pulse 77; Resp 12; Pulse Ox 98% on R/A; iw 13:00 BP 111 / 72; Pulse 78; Resp 14; Temp 97.5; Pulse Ox 100% on R/A; ph Procedures: 10:40 Moderate sedation: Pre-procedure assessment: the patient has been NPO 13 hour(s) prior [facility] to arrival, ASA physical classification: III - organic disease with definite functional impairment, Monitoring during procedure: cardiac technician, continuous pulse oximetry, nurse at bedside at all times, Respiratory at bedside, Medications employed: Etomidate, 7.5 mg(s), Versed, 2 mg(s), Post-procedure assessment: the patient is mildly sedated, Kelly sedation score: 2 - patient cooperative, oriented, and tranquil, Respiratory status: even and unlabored, a reversal agent was not used, Dr. Arias at bedside. 10:40 Reduction: of the left hip, using manipulation, supination, Patient tolerated well. 7 Post reduction film - reveals normal alignment. MDM: 09:29 Patient medically screened. 7 10:07 ED course: The patient's daughter mentioned that the patient's urine had been dark and jh7 she was concern for UTI. Christina, RN also confirmed that urine was cloudy and dark. Will order urinalysis and basic labs. Patient does report urinary urgency, but denies dysuria.. 11:55 Differential diagnosis: hip fracture, bursitis, arthritis, Hip dislocation. Data [facility] reviewed: vital signs, nurses notes, lab test result(s), radiologic studies, plain films. I considered the following discharge prescriptions or medication management in the emergency department Medications were administered in the Emergency Department. See MAR. Independent interpretation of the following test(s) in the Emergency Department X-Ray: My interpretation is Appropriately reduced hip. Historians other than the Patient: EMS: ems. Care significantly affected by the following chronic conditions: Hypertension. Counseling: I had a detailed discussion with the patient and/or guardian regarding the historical points, exam findings, and any diagnostic results supporting the discharge/admit diagnosis, the need for outpatient follow up, a orthopedic surgeon, to return to the emergency department if symptoms worsen or persist or if there are any questions or concerns that arise at home. Response to treatment: the patient's symptoms have resolved after treatment. 10/03 10:07 Order name: Urinalysis W/Microscopic; Complete Time: 10:47 [facility] 10/03 10:07 Order name: BMP; Complete Time: 10:45 [facility] 10/03 10:07 Order name: CBC with Diff; Complete Time: 11:37 [facility] 10/03 10:48 Order name: Urine Culture [facility] 10/03 11:30 Order name: CBC Smear Scan; Complete Time: 11:37 [facility] 10/03 09:30 Order name: XRAY Hip LEFT 2 view; Complete Time: 11:10 [facility] 10/03 11:10 Order name: XRAY Hip LEFT 2 view; Complete Time: 11:38 [facility] 10/03 09:30 Order name: IV Saline Lock; Complete Time: 09:32 [facility] 10/03 09:30 Order name: EKG - Nurse/Tech; Complete Time: 10:05 [facility] 10/03 09:30 Order name: Moderate Sedation; Complete Time: 10:05 [facility] EC:41 Rate is 79 beats/min. Rhythm is regular. QRS [place] is Normal. ID interval is normal at 7 150 msec. QRS interval is normal at 148 msec. QT interval is prolonged at 462 msec. No Q waves. Clinical impression: Sinus rhythm with frequent PVCs. Administered Medications: 10:55 Drug: Ondansetron IVP 4 mg IVP once; over 2 minutes Route: IVP; Site: left antecubital; ph 11:00 Follow up: Response: No adverse reaction ph 11:00 Drug: Midazolam IVP or IV 2 mg IVP once; at bedside Route: IVP; Site: left antecubital; ph 11:30 Follow up: Response: No adverse reaction ph 11:05 Drug: Etomidate IVP 20 mg IVP once; keep at bedside. 2 syringes of 10 mg Route: IVP; ph Site: left antecubital; 11:30 Follow up: Response: No adverse reaction ph 11:54 Drug: NS 0.9% IV 250 ml IV at bolus once Route: IV; Rate: bolus; Site: left antecubital;iw 12:30 Follow up: Response: No adverse reaction; IV Status: Completed infusion ph Disposition Summary: 10/04/23 11:49 Discharge Ordered Notes: Location: Home [facility] Problem: an ongoing problem [facility] Symptoms: have improved [facility] Condition: Stable [facility] Diagnosis - Left hip dislocation 7 - Dysuria [facility] Followup: [facility] - With: Charlie Patton MD - When: 2 - 3 days - Reason: Recheck today's complaints Discharge Instructions: - Discharge Summary Sheet [facility] - Dysuria 7 - Hip Dislocation [facility] Forms: - Medication Reconciliation Form [facility] - Thank You Letter [facility] - Antibiotic Education [facility] - Patient Portal Instructions [facility] - Leadership Thank You Letter [facility] Prescriptions: - Cipro 500 mg Oral Tablet - take 1 tablet ORAL route every 12 hours for 10 days; 20 tablet; Refills: 0, 7 Product Selection Permitted Signatures: Dispatcher [employer] [facility] Denice Wild RN RN iw Hall, Patricia, RN RN Lindsay Gould, HORSE RACING ANALYST HORSE RACING ANALYST [facility] Corrections: (The following items were deleted from the chart) 11:19 11:12 Hip Left 2 View+RAD.RAD.BRZ ordered. [facility] 11:26 10:40 Moderate sedation: Pre-procedure assessment: the patient has been NPO 13 hour(s) 7 prior to arrival, ASA physical classification: III - organic disease with definite functional impairment, Monitoring during procedure: cardiac technician, continuous pulse oximetry, nurse at bedside at all times, Respiratory at bedside, Medications employed: Etomidate, 7.5 mg(s), Versed, 2 mg(s), Post-procedure assessment: the patient is mildly sedated, Kelly sedation score: 2 - patient cooperative, oriented, and tranquil, Respiratory status: even and unlabored, a reversal agent was not used, [facility] 12:57 10:40 Moderate sedation: Pre-procedure assessment: the patient has been NPO 13 hour(s) jh7 prior to arrival, ASA physical classification: III - organic disease with definite functional impairment, Monitoring during procedure: cardiac technician, continuous pulse oximetry, nurse at bedside at all times, Respiratory at bedside, Medications employed: Etomidate, 7.5 mg(s), Versed, 2 mg(s), Post-procedure assessment: the patient is mildly sedated, Kelly sedation score: 2 - patient cooperative, oriented, and tranquil, Respiratory status: even and unlabored, a reversal agent was not used, [facility]
--- NOTE | 2023-10-04 11:49 | ER ---
Nurse's Notes [facility] Name: Charlie Hart Age: 88 yrs Sex: Male : 1935 Arrival Date: 10/04/2023 Time: 09:25 Bed 2 Private MD: Diagnosis: Left hip dislocation;Dysuria Presentation: 10/03 09:29 Chief complaint: EMS states: left hip dislocation after standing , pt has recurrent iw issues with left hip, normally uses a brace but it was not on hip when they got him up to stand this morning. Coronavirus screen: At this time, the client does not indicate any symptoms associated with coronavirus-19. Ebola Screen: Patient negative for fever greater than or equal to 101.5 degrees Fahrenheit, and additional compatible Ebola Virus Disease symptoms Patient denies exposure to infectious person. Patient denies travel to an Ebola-affected area in the 21 days before illness onset. No symptoms or risks identified at this time. Onset of symptoms was October 04, 2023. 09:29 Method Of Arrival: EMS: [facility] iw 09:29 Acuity: CLAUDINE 3 iw 10:03 Initial Sepsis Screen: Does the patient meet any 2 criteria? No. Patient's initial ph sepsis screen is negative. Does the patient have a suspected source of infection? No. Patient's initial sepsis screen is negative. Risk Assessment: Do you want to hurt yourself or someone else? Patient reports no desire to harm self or others. Historical: - Allergies: 09:31 No Known Allergies; iw - Home Meds: 09:33 amiodarone 200 mg Oral tablet 2 times per day [Active]; apixaban 5 mg oral tablet 2 iw times per day [Active]; ascorbic acid (vitamin C) 500 mg tablet daily [Active]; atorvastatin 80 mg oral tablet every evening [Active]; ferrous sulfate 325 mg (65 mg iron) Oral tablet daily [Active]; methocarbamol 500 mg Oral tablet every 8 hours [Active]; metoprolol succinate oral 12.5 mg daily [Active]; Plavix 75 mg Oral tablet daily [Active]; tramadol 50 mg Oral tablet 2 times per day [Active]; - PMHx: 09:30 CAD; chronic kidney disease; CVA; GERD; Hyperlipidemia; Hypertension; macular iw degeneration; macular degeneration; osteoarthritis; Pre-Diabetes; Prostate Cancer; stroke; West Nile Virus; - PSHx: 09:30 bilateral knee replacement; cataract repair; Cholecystectomy; hip/shoulder replacement; iw pacemaker; - Immunization history:: Adult Immunizations unknown. - Social history:: Smoking status: unknown. Screenin:02 [facility] ED Fall Risk Assessment (Adult) History of falling in the last 3 months, ph including since admission Yes- fall prone (multiple falls) (3 pts) Confusion or Disorientation No (0 pts) Intoxicated or Sedated No (0 pts) Impaired Gait Yes (1 pt) Mobility Assist Device Used Yes (1 pt) Altered Elimination No (0 pt) Score/Fall Risk Level 3 or more points = High Risk Oriented to surroundings, Maintained a safe environment, Educated pt \T\ family on fall prevention, incl call for assistance when getting out of bed, Provided non-skid footwear, Hourly rounding (assess needs \T\ fall precautionary measures) done, Used ambulatory aids as needed (educated on \T\ assisted with). Abuse screen: Denies threats or abuse. Denies injuries from another. Nutritional screening: No deficits noted. Tuberculosis screening: No symptoms or risk factors identified. Assessment: 10:03 General: Appears in no apparent distress. comfortable, Behavior is calm, cooperative. ph Pain: Complains of pain in left hip. Neuro: Level of Consciousness is awake, alert, obeys commands, Oriented to person, place, time, situation. Cardiovascular: Capillary refill < 3 seconds in bilateral fingers. Respiratory: Airway is patent Respiratory effort is even, unlabored, Respiratory pattern is regular, symmetrical. GI: No signs and/or symptoms were reported involving the gastrointestinal system. Derm: Skin is pink, warm \T\ dry. Musculoskeletal: Circulation, motion, and sensation intact. Range of motion: limited in left hip. 11:00 Reassessment: Patient appears in no apparent distress at this time. Patient and/or ph family updated on plan of care and expected duration. Pain level reassessed. Patient is alert, oriented x 3, equal unlabored respirations, skin warm/dry/pink. Dr Arias and Lindsay Hall MOTOR INSPECTION MECHANIC at bedside for conscious sedation and reduction of L hip dislocation, see conscious sedation flowsheet for vitals. 11:45 Reassessment: pt awakens to verbal stimuli, VSS. iw 11:55 Reassessment: pt still drowsy but awakens to verbal stimuli, slow to respond but iw follows commands. 12:30 Reassessment: Patient appears in no apparent distress at this time. Patient and/or ph family updated on plan of care and expected duration. Pain level reassessed. Patient is alert, oriented x 3, equal unlabored respirations, skin warm/dry/pink. Attempted to call report to [facility], no answer. 12:45 Reassessment: Attempted to call report to [facility], no answer. ph 13:00 Reassessment: Patient appears in no apparent distress at this time. Patient and/or ph family updated on plan of care and expected duration. Pain level reassessed. Patient is alert, oriented x 3, equal unlabored respirations, skin warm/dry/pink. Attempted to call report to [facility], no answer. 13:10 Reassessment: Pt's daughter attempted to call [facility], no answers either. ph 14:05 Reassessment: RN at [facility] called for report. ph 14:10 Reassessment: Patient appears in no apparent distress at this time. Patient and/or ph family updated on plan of care and expected duration. Pain level reassessed. Patient is alert, oriented x 3, equal unlabored respirations, skin warm/dry/pink. [facility] at bedside to transport pt to [facility]. Vital Signs: 09:32 BP 117 / 76; Pulse 77; Resp 16; Temp 98; Pulse Ox 95% on R/A; iw 10:30 BP 109 / 62; Pulse 78; Resp 18; Pulse Ox 99% on R/A; ph 11:55 BP 102 / 63; Pulse 77; Resp 12; Pulse Ox 98% on R/A; iw 13:00 BP 111 / 72; Pulse 78; Resp 14; Temp 97.5; Pulse Ox 100% on R/A; ph ED Course: 09:26 Patient arrived in ED. eb 09:29 Christina Cox, CARRILLO is Primary Nurse. ph 09:29 Lindsay Hall FNP [facility] jh7 09:29 Wally Arias MD is Attending Physician. jh7 09:30 Triage completed. iw 09:32 Arm band placed on. iw 09:34 Client placed on continuous cardiac and pulse oximetry monitoring. NIBP monitoring hb applied. gambling monitor on. Pulse ox on. NIBP on. 10:02 Patient has correct armband on for positive identification. Placed in gown. Bed in low ph position. Call light in reach. Side rails up X2. Provided Education on: Conscious Sedation. Consent for conscious sedation explained by staff, signed by art PEDERSEN. 10:24 CBC with Diff Sent. ph 10:24 BMP Sent. ph 10:24 Urinalysis W/Microscopic Sent. ph 10:43 XRAY Hip LEFT 2 view In Process Unspecified. EDMS 11:24 XRAY Hip LEFT 2 view In Process Unspecified. EDMS 11:30 Assist provider with reduction of left pathologic or non traumatic hip using iw manipulation, Set up for procedure. Performed by Wally Arias MD Patient tolerated well. 11:48 Charlie Patton MD is Referral Physician. jh7 12:49 Assisted with bedpan. Cleaned of incontinence. iw 14:00 IV discontinued, intact, bleeding controlled, No redness/swelling at site. Pressure ph dressing applied. Administered Medications: 10:55 Drug: Ondansetron IVP 4 mg IVP once; over 2 minutes Route: IVP; Site: left antecubital; ph 11:00 Follow up: Response: No adverse reaction ph 11:00 Drug: Midazolam IVP or IV 2 mg IVP once; at bedside Route: IVP; Site: left antecubital; ph 11:30 Follow up: Response: No adverse reaction ph 11:05 Drug: Etomidate IVP 20 mg IVP once; keep at bedside. 2 syringes of 10 mg Route: IVP; ph Site: left antecubital; 11:30 Follow up: Response: No adverse reaction ph 11:54 Drug: NS 0.9% IV 250 ml IV at bolus once Route: IV; Rate: bolus; Site: left antecubital;iw 12:30 Follow up: Response: No adverse reaction; IV Status: Completed infusion ph Medication: 10:03 VIS not applicable for this client. ph Outcome: 11:49 Discharge ordered by . jh7 14:19 Patient left the ED. ph 14:19 Discharged to intermediate. ph 14:19 Condition: good 14:19 Discharge instructions given to patient, family, intermediate, Instructed on discharge instructions, follow up and referral plans. medication usage, Demonstrated understanding of instructions, follow-up care, medications, Prescriptions given X 1, Signatures: Dispatcher [employer] Denice Avery RN RN iw Christina Cox RN RN ph Levi, Jie, CARRILLO RN Jacqui Syed Jennifer, FNP COMMUTATOR UNDERCUTTER jh7 Corrections: (The following items were deleted from the chart) 11:13 11:12 Midazolam IVP or IV 2 mg IVP in left antecubital ph ph
[2023-10-04 14:32] VITALS: BP 102/63; TEMP 98; O2SAT 98
== END ==
LOC: ER 09:25
PROC: 0SSBXZZ Reposition Left Hip Joint, External Approach (ICD-10-PCS; principal; 2023-10-04)
DX: S73.005A Unspecified dislocation of left hip, initial encounter (principal); R30.0 Dysuria; Z96.653 Presence of artificial knee joint, bilateral; I12.9 Hypertensive chronic kidney disease with stage 1 through stage 4 chronic kidney disease, or unspecified chronic kidney disease; N18.9 Chronic kidney disease, unspecified; Z96.652 Presence of left artificial knee joint; Z95.0 Presence of cardiac pacemaker; Z79.01 Long term (current) use of anticoagulants; Z86.73 Personal history of transient ischemic attack (TIA), and cerebral infarction without residual deficits
CPT/HCPCS: 96361; 87088; 85025; 81001; 87086; 80048; 36415; 87077; 87186; 73502 ×2; 96375; 96374; 99285; 27252; J2250; J2405; J7030; 93005

== ENCOUNTER → 2023-10-05 | Emergency (ER) | payer OTHER ==
[~2023-10-05] MED LIST changes: -ETOMIDATE 20 MG/10 ML VIAL IV ONE; +HYDROCODONE/APAP 7.5/325 MG TAB ONE; -MIDAZOLAM HCL 2 MG/2 ML INJ ONE
--- OUTSIDE RECORDS SUMMARY | 2023-10-05 11:52 | XMS REPORT | Continuity of Care Document ---
Author Name Unknown Address [address] [facility] [address] [place] [address] [facility] Address [address] [facility] 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 Name Role Phone Jamari Carrero Primary Care Physician ALEJANDRA LEWIS NATASHA Attending Clinician Unava ilable Tony Gautam X Attending Clinician Unavailable UNKNOWN Attending Clinician Unavailable Deyvi Celis [facility]iology Attending Clinician Unavailable Alvaro Ron Attending Clinician Unavailable MAGAN_Ada Attending Clinician Unavailable Steven CRUZ [facility] Attending Clinician Jamari Carrero Attending Clinician [phone] ALEJANDRA LEWIS NATASHA Admitting Clinician Unava ilable Dain Adnan X Admitting Clinician Unavailable Deyvi Celis Cardiology Admitting Clinician Unavailable KNOW, DOES_NOT Admitting Clinician Unavailable Alvaro Ron Admitting Clinician Unavailable MAGAN_R Admitting Clinician Unavailable Payers Payer Name Policy Type Policy Number Effective Date Expirati on Date Source AETNA MEDICAL [id number] 2015 00:00:00 AETM AETM [id number] AETNA (PPO) [id number] 2022 00:00:00 AETNA (INDEMNITY) [id number] 2000 00:00:00 2022 00:00:00 [place]IC[place]: [employer] [id number] 2000 00:00:00 Problems Condition Name Condition Details Condition Category Status Onset Date Resolution Date Last Treatment Date Treating Clinician Comments Source 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 Problem Active 2022-07 00:00: 00 [facility] Dislocatio n of hip joint Dislocatio n of Hip Joint Problem Active 2022-07 00:00: 00 [facility] Macrocytic anemia Macrocytic Anemia Problem Active 07-30 00:00: 00 [facility] Chronic kidney disease stage 3B Chronic Kidney Disease Stage 3B Problem Active 2021-07 00:00: 00 [facility] Left bundle branch block Left Bundle Branch Block Problem Active 01-11 00:00: 00 [facility] 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 Problem Active 01-11 00:00: 00 [facility] Aortic stenosis, non-rheuma tic Aortic Stenosis, Non-rheuma tic Problem Active 01-11 00:00: 00 [facility] 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 10-03 00:00: 00 [facility] 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 Fatigue Fatigue Problem Active 08-19 00:00: 00 Count Includes [facility] History of meningitis History of Meningitis Problem Active 08-19 00:00: 00 [facility] History of cerebrovas cular accident History of Cerebrovas cular Accident Problem Active 08-19 00:00: [address] [facility] Allergies, Adverse Reactions, Alerts Allergy Name Allergy Type Status Severity Reaction(s) Onset Date Inactive Date Treating Clinician Comments Source No Known Allergie s DA Active U 08-09 00:00: 00 [facility] No Known Allergie s DA Active U 08-08 00:00: 00 [facility] No Known Allergie s DA Active U 12-13 00:00: 00 [facility] No Known Drug Intolera nces DA Active U 2008-07 00:00: 00 [facility] No Known Contrast Allergie s DA Active U 01-15 00:00: 00 [facility] No Known Food Allergie s DA Active U 01-15 00:00: 00 [facility] No Known Other Allergie s DA Active U 01-15 00:00: 00 [facility] Social History Social Habit Start Date Stop Date Quantity Comments Source Exposure to SARS-CoV-2 (event) 2022 00:00:00 2022-04-22 08:33:00 Not sure [facility] Tobacco use and exposure 2022-04-22 00:00:00 2022-04-22 00:00:00 Smokeless tobacco non-user [facility] Alcohol intake 2022-04-22 00:00:00 2022-04-22 00:00:00 Lifetime non-drinker (finding) [facility] Sex Assigned At 1935 00:00:00 1935 00:00:00 [facility] Smoking Status Start Date Stop Date Source Former Smoker [facility] Never smoked tobacco [facility] Medications Ordered Medication Name Filled Medication Name Start Date Stop Date Current Medication? Ordering Clinician Indication Dosage Frequency Signature (SIG) Comments Components Source atorvastati n 10 mg tablet TAKE 1 TABLET BY MOUTH AT BEDTIME atorvastati n 10 mg tablet TAKE 1 TABLET BY MOUTH AT BEDTIME No atorvastat in 10 mg tablet TAKE 1 TABLET BY MOUTH AT BEDTIME [facility] cephalexin 500 mg capsule TAKE 1 CAPSULE BY MOUTH TWICE DAILY WITH FOOD FOR 5 DAYS cephalexin 500 mg capsule TAKE 1 CAPSULE BY MOUTH TWICE DAILY WITH FOOD FOR 5 DAYS No cephalexin 500 mg capsule TAKE 1 CAPSULE BY MOUTH TWICE DAILY WITH FOOD FOR 5 DAYS [facility] clopidogrel 75 mg tablet TAKE 1 TABLET BY MOUTH DAILY clopidogrel 75 mg tablet TAKE 1 TABLET BY MOUTH DAILY No clopidogre l 75 mg tablet TAKE 1 TABLET BY MOUTH DAILY [facility] isosorbide mononitrate ER 30 mg tablet,exte nded release 24 hr TAKE 1 TABLET BY MOUTH EVERY DAY isosorbide mononitrate ER 30 mg tablet,exte nded release 24 hr TAKE 1 TABLET BY MOUTH EVERY DAY No isosorbide mononitrat e ER 30 mg tablet,ext ended release 24 hr TAKE 1 TABLET BY MOUTH EVERY DAY [facility] metoprolol succinate ER 25 mg tablet,exte nded release 24 hr TAKE 1 TABLET BY MOUTH EVERY DAY metoprolol succinate ER 25 mg tablet,exte nded release 24 hr TAKE 1 TABLET BY MOUTH EVERY DAY No metoprolol succinate ER 25 mg tablet,ext ended release 24 hr TAKE 1 TABLET BY MOUTH EVERY DAY [facility] tramadol 50 mg tablet TAKE 1 TABLET BY MOUTH EVERY DAY NEEDED tramadol 50 mg tablet TAKE 1 TABLET BY MOUTH EVERY DAY NEEDED No tramadol 50 mg tablet TAKE 1 TABLET BY MOUTH EVERY DAY NEEDED [facility] atorvastati n 10 mg tablet TAKE 1 TABLET BY MOUTH AT BEDTIME atorvastati n 10 mg tablet TAKE 1 TABLET BY MOUTH AT BEDTIME No atorvastat in 10 mg tablet TAKE 1 TABLET BY MOUTH AT BEDTIME [facility] clopidogrel 75 mg tablet TAKE 1 TABLET BY MOUTH DAILY clopidogrel 75 mg tablet TAKE 1 TABLET BY MOUTH DAILY No clopidogre l 75 mg tablet TAKE 1 TABLET BY MOUTH DAILY [facility] isosorbide mononitrate ER 30 mg tablet,exte nded release 24 hr TAKE 1 TABLET BY MOUTH EVERY DAY isosorbide mononitrate ER 30 mg tablet,exte nded release 24 hr TAKE 1 TABLET BY MOUTH EVERY DAY No isosorbide mononitrat e ER 30 mg tablet,ext ended release 24 hr TAKE 1 TABLET BY MOUTH EVERY DAY [facility] Low Dose Aspirin 81 mg tablet,emily yed release Take 1 tablet every day by oral route. Low Dose Aspirin 81 mg tablet,emily yed release Take 1 tablet every day by oral route. No 1 Q1D Low Dose Aspirin 81 mg tablet,del ayed release Take 1 tablet every day by oral route. [facility] metoprolol succinate ER 25 mg tablet,exte nded release 24 hr TAKE 1 TABLET BY MOUTH EVERY DAY metoprolol succinate ER 25 mg tablet,exte nded release 24 hr TAKE 1 TABLET BY MOUTH EVERY DAY No metoprolol succinate ER 25 mg tablet,ext ended release 24 hr TAKE 1 TABLET BY MOUTH EVERY DAY [facility] tramadol 50 mg tablet TAKE 1 TABLET BY MOUTH DAILY NEEDED FOR PAIN tramadol 50 mg tablet TAKE 1 TABLET BY MOUTH DAILY NEEDED FOR PAIN No tramadol 50 mg tablet TAKE 1 TABLET BY MOUTH DAILY NEEDED FOR PAIN [facility] atorvastati n 10 mg tablet TAKE 1 TABLET BY MOUTH AT BEDTIME atorvastati n 10 mg tablet TAKE 1 TABLET BY MOUTH AT BEDTIME No atorvastat in 10 mg tablet TAKE 1 TABLET BY MOUTH AT BEDTIME [facility] clopidogrel 75 mg tablet TAKE 1 TABLET BY MOUTH DAILY clopidogrel 75 mg tablet TAKE 1 TABLET BY MOUTH DAILY No clopidogre l 75 mg tablet TAKE 1 TABLET BY MOUTH DAILY [facility] isosorbide mononitrate ER 30 mg tablet,exte nded release 24 hr TAKE 1 TABLET BY MOUTH EVERY DAY isosorbide mononitrate ER 30 mg tablet,exte nded release 24 hr TAKE 1 TABLET BY MOUTH EVERY DAY No isosorbide mononitrat e ER 30 mg tablet,ext ended release 24 hr TAKE 1 TABLET BY MOUTH EVERY DAY [facility] Low Dose Aspirin 81 mg tablet,emily yed release Take 1 tablet every day by oral route. Low Dose Aspirin 81 mg tablet,emily yed release Take 1 tablet every day by oral route. No 1 Q1D Low Dose Aspirin 81 mg tablet,del ayed release Take 1 tablet every day by oral route. [facility] metoprolol succinate ER 25 mg tablet,exte nded release 24 hr TAKE 1 TABLET BY MOUTH EVERY DAY metoprolol succinate ER 25 mg tablet,exte nded release 24 hr TAKE 1 TABLET BY MOUTH EVERY DAY No metoprolol succinate ER 25 mg tablet,ext ended release 24 hr TAKE 1 TABLET BY MOUTH EVERY DAY [facility] tramadol 50 mg tablet TAKE 1 TABLET BY MOUTH DAILY NEEDED FOR PAIN tramadol 50 mg tablet TAKE 1 TABLET BY MOUTH DAILY NEEDED FOR PAIN No tramadol 50 mg tablet TAKE 1 TABLET BY MOUTH DAILY NEEDED FOR PAIN [facility] atorvastati n 10 mg tablet TAKE 1 TABLET BY MOUTH AT BEDTIME atorvastati n 10 mg tablet TAKE 1 TABLET BY MOUTH AT BEDTIME No atorvastat in 10 mg tablet TAKE 1 TABLET BY MOUTH AT BEDTIME [facility] clopidogrel 75 mg tablet TAKE 1 TABLET BY MOUTH DAILY clopidogrel 75 mg tablet TAKE 1 TABLET BY MOUTH DAILY No clopidogre l 75 mg tablet TAKE 1 TABLET BY MOUTH DAILY [facility] isosorbide mononitrate ER 30 mg tablet,exte nded release 24 hr TAKE 1 TABLET BY MOUTH EVERY DAY isosorbide mononitrate ER 30 mg tablet,exte nded release 24 hr TAKE 1 TABLET BY MOUTH EVERY DAY No isosorbide mononitrat e ER 30 mg tablet,ext ended release 24 hr TAKE 1 TABLET BY MOUTH EVERY DAY [facility] Low Dose Aspirin 81 mg tablet,emily yed release Take 1 tablet every day by oral route. Low Dose Aspirin 81 mg tablet,emily yed release Take 1 tablet every day by oral route. No 1 Q1D Low Dose Aspirin 81 mg tablet,del ayed release Take 1 tablet every day by oral route. [facility] metoprolol succinate ER 25 mg tablet,exte nded release 24 hr TAKE 1 TABLET BY MOUTH EVERY DAY metoprolol succinate ER 25 mg tablet,exte nded release 24 hr TAKE 1 TABLET BY MOUTH EVERY DAY No metoprolol succinate ER 25 mg tablet,ext ended release 24 hr TAKE 1 TABLET BY MOUTH EVERY DAY [facility] tramadol 50 mg tablet TAKE 1 TABLET BY MOUTH TWICE DAILY NEEDED FOR PAIN tramadol 50 mg tablet TAKE 1 TABLET BY MOUTH TWICE DAILY NEEDED FOR PAIN No tramadol 50 mg tablet TAKE 1 TABLET BY MOUTH TWICE DAILY NEEDED FOR PAIN [facility] atorvastati n 10 mg tablet TAKE 1 TABLET BY MOUTH AT BEDTIME atorvastati n 10 mg tablet TAKE 1 TABLET BY MOUTH AT BEDTIME No atorvastat in 10 mg tablet TAKE 1 TABLET BY MOUTH AT BEDTIME [facility] clopidogrel 75 mg tablet TAKE 1 TABLET BY MOUTH DAILY clopidogrel 75 mg tablet TAKE 1 TABLET BY MOUTH DAILY No clopidogre l 75 mg tablet TAKE 1 TABLET BY MOUTH DAILY [facility] isosorbide mononitrate ER 30 mg tablet,exte nded release 24 hr TAKE 1 TABLET BY MOUTH EVERY DAY isosorbide mononitrate ER 30 mg tablet,exte nded release 24 hr TAKE 1 TABLET BY MOUTH EVERY DAY No isosorbide mononitrat e ER 30 mg tablet,ext ended release 24 hr TAKE 1 TABLET BY MOUTH EVERY DAY [facility] Low Dose Aspirin 81 mg tablet,emily yed release Take 1 tablet every day by oral route. Low Dose Aspirin 81 mg tablet,emily yed release Take 1 tablet every day by oral route. No 1 Q1D Low Dose Aspirin 81 mg tablet,del ayed release Take 1 tablet every day by oral route. [facility] metoprolol succinate ER 25 mg tablet,exte nded release 24 hr TAKE 1 TABLET BY MOUTH EVERY DAY metoprolol succinate ER 25 mg tablet,exte nded release 24 hr TAKE 1 TABLET BY MOUTH EVERY DAY No metoprolol succinate ER 25 mg tablet,ext ended release 24 hr TAKE 1 TABLET BY MOUTH EVERY DAY [facility] atorvastati n 10 mg tablet TAKE 1 TABLET BY MOUTH AT BEDTIME atorvastati n 10 mg tablet TAKE 1 TABLET BY MOUTH AT BEDTIME No atorvastat in 10 mg tablet TAKE 1 TABLET BY MOUTH AT BEDTIME [facility] clopidogrel 75 mg tablet TAKE 1 TABLET BY MOUTH DAILY clopidogrel 75 mg tablet TAKE 1 TABLET BY MOUTH DAILY No clopidogre l 75 mg tablet TAKE 1 TABLET BY MOUTH DAILY [facility] isosorbide mononitrate ER 30 mg tablet,exte nded release 24 hr TAKE 1 TABLET BY MOUTH EVERY DAY isosorbide mononitrate ER 30 mg tablet,exte nded release 24 hr TAKE 1 TABLET BY MOUTH EVERY DAY No isosorbide mononitrat e ER 30 mg tablet,ext ended release 24 hr TAKE 1 TABLET BY MOUTH EVERY DAY [facility] Low Dose Aspirin 81 mg tablet,emily yed release Take 1 tablet every day by oral route. Low Dose Aspirin 81 mg tablet,emily yed release Take 1 tablet every day by oral route. No 1 Q1D Low Dose Aspirin 81 mg tablet,del ayed release Take 1 tablet every day by oral route. [facility] metoprolol succinate ER 25 mg tablet,exte nded release 24 hr TAKE 1 TABLET BY MOUTH EVERY DAY metoprolol succinate ER 25 mg tablet,exte nded release 24 hr TAKE 1 TABLET BY MOUTH EVERY DAY No metoprolol succinate ER 25 mg tablet,ext ended release 24 hr TAKE 1 TABLET BY MOUTH EVERY DAY [facility] tramadol 50 mg tablet TAKE 1 TABLET BY MOUTH TWICE DAILY NEEDED FOR PAIN tramadol 50 mg tablet TAKE 1 TABLET BY MOUTH TWICE DAILY NEEDED FOR PAIN No tramadol 50 mg tablet TAKE 1 TABLET BY MOUTH TWICE DAILY NEEDED FOR PAIN [facility] atorvastati n 10 mg tablet TAKE 1 TABLET BY MOUTH AT BEDTIME atorvastati n 10 mg tablet TAKE 1 TABLET BY MOUTH AT BEDTIME No atorvastat in 10 mg tablet TAKE 1 TABLET BY MOUTH AT BEDTIME [facility] clopidogrel 75 mg tablet TAKE 1 TABLET BY MOUTH DAILY clopidogrel 75 mg tablet TAKE 1 TABLET BY MOUTH DAILY No clopidogre l 75 mg tablet TAKE 1 TABLET BY MOUTH DAILY [facility] isosorbide mononitrate ER 30 mg tablet,exte nded release 24 hr TAKE 1 TABLET BY MOUTH EVERY DAY isosorbide mononitrate ER 30 mg tablet,exte nded release 24 hr TAKE 1 TABLET BY MOUTH EVERY DAY No isosorbide mononitrat e ER 30 mg tablet,ext ended release 24 hr TAKE 1 TABLET BY MOUTH EVERY DAY [facility] Low Dose Aspirin 81 mg tablet,emily yed release Take 1 tablet every day by oral route. Low Dose Aspirin 81 mg tablet,emily yed release Take 1 tablet every day by oral route. No 1 Q1D Low Dose Aspirin 81 mg tablet,del ayed release Take 1 tablet every day by oral route. [facility] metoprolol succinate ER 25 mg tablet,exte nded release 24 hr TAKE 1 TABLET BY MOUTH EVERY DAY metoprolol succinate ER 25 mg tablet,exte nded release 24 hr TAKE 1 TABLET BY MOUTH EVERY DAY No metoprolol succinate ER 25 mg tablet,ext ended release 24 hr TAKE 1 TABLET BY MOUTH EVERY DAY [facility] tramadol 50 mg tablet TAKE 1 TABLET BY MOUTH TWICE DAILY NEEDED FOR PAIN tramadol 50 mg tablet TAKE 1 TABLET BY MOUTH TWICE DAILY NEEDED FOR PAIN No tramadol 50 mg tablet TAKE 1 TABLET BY MOUTH TWICE DAILY NEEDED FOR PAIN [facility] atorvastati n 10 mg tablet TAKE 1 TABLET BY MOUTH AT BEDTIME atorvastati n 10 mg tablet TAKE 1 TABLET BY MOUTH AT BEDTIME No atorvastat in 10 mg tablet TAKE 1 TABLET BY MOUTH AT BEDTIME [facility] clopidogrel 75 mg tablet TAKE 1 TABLET BY MOUTH DAILY clopidogrel 75 mg tablet TAKE 1 TABLET BY MOUTH DAILY No clopidogre l 75 mg tablet TAKE 1 TABLET BY MOUTH DAILY [facility] hydrocortis one valerate 0.2 % topical cream [...] FOR ITCHING FOR 2 WEEKS PER MONTH [facility] isosorbide mononitrate ER 30 mg tablet,exte nded release 24 hr TAKE 1 TABLET BY MOUTH EVERY DAY isosorbide mononitrate ER 30 mg tablet,exte nded release 24 hr TAKE 1 TABLET BY MOUTH EVERY DAY No isosorbide mononitrat e ER 30 mg tablet,ext ended release 24 hr TAKE 1 TABLET BY MOUTH EVERY DAY [facility] Low Dose Aspirin 81 mg tablet,emily yed release Take 1 tablet every other day by oral route. Low Dose Aspirin 81 mg tablet,emily yed release Take 1 tablet every other day by oral route. No 1 Q2D Low Dose Aspirin 81 mg tablet,del ayed release Take 1 tablet every other day by oral route. [facility] metoprolol succinate ER 25 mg tablet,exte nded release 24 hr TAKE 1 TABLET BY MOUTH EVERY DAY metoprolol succinate ER 25 mg tablet,exte nded release 24 hr TAKE 1 TABLET BY MOUTH EVERY DAY No metoprolol succinate ER 25 mg tablet,ext ended release 24 hr TAKE 1 TABLET BY MOUTH EVERY DAY [facility] tramadol 50 mg tablet TAKE 1 TABLET BY MOUTH TWICE DAILY NEEDED FOR PAIN tramadol 50 mg tablet TAKE 1 TABLET BY MOUTH TWICE DAILY NEEDED FOR PAIN No tramadol 50 mg tablet TAKE 1 TABLET BY MOUTH TWICE DAILY NEEDED FOR PAIN [facility] atorvastati n 10 mg tablet TAKE 1 TABLET BY MOUTH AT BEDTIME atorvastati n 10 mg tablet TAKE 1 TABLET BY MOUTH AT BEDTIME No atorvastat in 10 mg tablet TAKE 1 TABLET BY MOUTH AT BEDTIME [facility] clopidogrel 75 mg tablet TAKE 1 TABLET BY MOUTH DAILY clopidogrel 75 mg tablet TAKE 1 TABLET BY MOUTH DAILY No clopidogre l 75 mg tablet TAKE 1 TABLET BY MOUTH DAILY [facility] hydrocortis one valerate 0.2 % topical cream [...] FOR ITCHING FOR 2 WEEKS PER MONTH [facility] isosorbide mononitrate ER 30 mg tablet,exte nded release 24 hr TAKE 1 TABLET BY MOUTH EVERY DAY isosorbide mononitrate ER 30 mg tablet,exte nded release 24 hr TAKE 1 TABLET BY MOUTH EVERY DAY No isosorbide mononitrat e ER 30 mg tablet,ext ended release 24 hr TAKE 1 TABLET BY MOUTH EVERY DAY [facility] metoprolol succinate ER 25 mg tablet,exte nded release 24 hr TAKE 1 TABLET BY MOUTH EVERY DAY metoprolol succinate ER 25 mg tablet,exte nded release 24 hr TAKE 1 TABLET BY MOUTH EVERY DAY No metoprolol succinate ER 25 mg tablet,ext ended release 24 hr TAKE 1 TABLET BY MOUTH EVERY DAY [facility] tramadol 50 mg tablet TAKE 1 TABLET BY MOUTH TWICE DAILY NEEDED FOR PAIN tramadol 50 mg tablet TAKE 1 TABLET BY MOUTH TWICE DAILY NEEDED FOR PAIN No tramadol 50 mg tablet TAKE 1 TABLET BY MOUTH TWICE DAILY NEEDED FOR PAIN [facility] atorvastati n 10 mg tablet TAKE 1 TABLET BY MOUTH AT BEDTIME atorvastati n 10 mg tablet TAKE 1 TABLET BY MOUTH AT BEDTIME No atorvastat in 10 mg tablet TAKE 1 TABLET BY MOUTH AT BEDTIME [facility] clopidogrel 75 mg tablet TAKE 1 TABLET BY MOUTH DAILY clopidogrel 75 mg tablet TAKE 1 TABLET BY MOUTH DAILY No clopidogre l 75 mg tablet TAKE 1 TABLET BY MOUTH DAILY [facility] hydrocortis one valerate 0.2 % topical cream [...] FOR ITCHING FOR 2 WEEKS PER MONTH [facility] isosorbide mononitrate ER 30 mg tablet,exte nded release 24 hr TAKE 1 TABLET BY MOUTH EVERY DAY isosorbide mononitrate ER 30 mg tablet,exte nded release 24 hr TAKE 1 TABLET BY MOUTH EVERY DAY No isosorbide mononitrat e ER 30 mg tablet,ext ended release 24 hr TAKE 1 TABLET BY MOUTH EVERY DAY [facility] metoprolol succinate ER 25 mg tablet,exte nded release 24 hr TAKE 1 TABLET BY MOUTH EVERY DAY metoprolol succinate ER 25 mg tablet,exte nded release 24 hr TAKE 1 TABLET BY MOUTH EVERY DAY No metoprolol succinate ER 25 mg tablet,ext ended release 24 hr TAKE 1 TABLET BY MOUTH EVERY DAY [facility] tramadol 50 mg tablet TAKE 1 TABLET BY MOUTH TWICE DAILY NEEDED FOR PAIN tramadol 50 mg tablet TAKE 1 TABLET BY MOUTH TWICE DAILY NEEDED FOR PAIN No tramadol 50 mg tablet TAKE 1 TABLET BY MOUTH TWICE DAILY NEEDED FOR PAIN [facility] atorvastati n 10 mg tablet TAKE 1 TABLET BY MOUTH AT BEDTIME atorvastati n 10 mg tablet TAKE 1 TABLET BY MOUTH AT BEDTIME No atorvastat in 10 mg tablet TAKE 1 TABLET BY MOUTH AT BEDTIME [facility] clopidogrel 75 mg tablet TAKE 1 TABLET BY MOUTH DAILY clopidogrel 75 mg tablet TAKE 1 TABLET BY MOUTH DAILY No clopidogre l 75 mg tablet TAKE 1 TABLET BY MOUTH DAILY [facility] hydrocortis one valerate 0.2 % topical cream [...] FOR ITCHING FOR 2 WEEKS PER MONTH [facility] isosorbide mononitrate ER 30 mg tablet,exte nded release 24 hr TAKE 1 TABLET BY MOUTH EVERY DAY isosorbide mononitrate ER 30 mg tablet,exte nded release 24 hr TAKE 1 TABLET BY MOUTH EVERY DAY No isosorbide mononitrat e ER 30 mg tablet,ext ended release 24 hr TAKE 1 TABLET BY MOUTH EVERY DAY [facility] metoprolol succinate ER 25 mg tablet,exte nded release 24 hr TAKE 1 TABLET BY MOUTH EVERY DAY metoprolol succinate ER 25 mg tablet,exte nded release 24 hr TAKE 1 TABLET BY MOUTH EVERY DAY No metoprolol succinate ER 25 mg tablet,ext ended release 24 hr TAKE 1 TABLET BY MOUTH EVERY DAY [facility] tramadol 50 mg tablet TAKE 1 TABLET BY MOUTH TWICE DAILY NEEDED FOR PAIN tramadol 50 mg tablet TAKE 1 TABLET BY MOUTH TWICE DAILY NEEDED FOR PAIN No tramadol 50 mg tablet TAKE 1 TABLET BY MOUTH TWICE DAILY NEEDED FOR PAIN [facility] atorvastati n 10 mg tablet TAKE 1 TABLET BY MOUTH AT BEDTIME atorvastati n 10 mg tablet TAKE 1 TABLET BY MOUTH AT BEDTIME No atorvastat in 10 mg tablet TAKE 1 TABLET BY MOUTH AT BEDTIME [facility] clopidogrel 75 mg tablet TAKE 1 TABLET BY MOUTH DAILY clopidogrel 75 mg tablet TAKE 1 TABLET BY MOUTH DAILY No clopidogre l 75 mg tablet TAKE 1 TABLET BY MOUTH DAILY [facility] hydrocortis one valerate 0.2 % topical cream [...] FOR ITCHING FOR 2 WEEKS PER MONTH [facility] isosorbide mononitrate ER 30 mg tablet,exte nded release 24 hr TAKE 1 TABLET BY MOUTH EVERY DAY isosorbide mononitrate ER 30 mg tablet,exte nded release 24 hr TAKE 1 TABLET BY MOUTH EVERY DAY No isosorbide mononitrat e ER 30 mg tablet,ext ended release 24 hr TAKE 1 TABLET BY MOUTH EVERY DAY [facility] metoprolol succinate ER 25 mg tablet,exte nded release 24 hr TAKE 1 TABLET BY MOUTH EVERY DAY metoprolol succinate ER 25 mg tablet,exte nded release 24 hr TAKE 1 TABLET BY MOUTH EVERY DAY No metoprolol succinate ER 25 mg tablet,ext ended release 24 hr TAKE 1 TABLET BY MOUTH EVERY DAY [facility] tramadol 50 mg tablet TAKE 1 TABLET BY MOUTH TWICE DAILY NEEDED FOR PAIN tramadol 50 mg tablet TAKE 1 TABLET BY MOUTH TWICE DAILY NEEDED FOR PAIN No tramadol 50 mg tablet TAKE 1 TABLET BY MOUTH TWICE DAILY NEEDED FOR PAIN [facility] atorvastati n 10 mg tablet TAKE 1 TABLET BY MOUTH AT BEDTIME atorvastati n 10 mg tablet TAKE 1 TABLET BY MOUTH AT BEDTIME No atorvastat in 10 mg tablet TAKE 1 TABLET BY MOUTH AT BEDTIME [facility] clopidogrel 75 mg tablet TAKE 1 TABLET BY MOUTH DAILY clopidogrel 75 mg tablet TAKE 1 TABLET BY MOUTH DAILY No clopidogre l 75 mg tablet TAKE 1 TABLET BY MOUTH DAILY [facility] hydrocortis one valerate 0.2 % topical cream [...] FOR ITCHING FOR 2 WEEKS PER MONTH [facility] isosorbide mononitrate ER 30 mg tablet,exte nded release 24 hr TAKE 1 TABLET BY MOUTH EVERY DAY isosorbide mononitrate ER 30 mg tablet,exte nded release 24 hr TAKE 1 TABLET BY MOUTH EVERY DAY No isosorbide mononitrat e ER 30 mg tablet,ext ended release 24 hr TAKE 1 TABLET BY MOUTH EVERY DAY [facility] metoprolol succinate ER 25 mg tablet,exte nded release 24 hr TAKE 1 TABLET BY MOUTH EVERY DAY metoprolol succinate ER 25 mg tablet,exte nded release 24 hr TAKE 1 TABLET BY MOUTH EVERY DAY No metoprolol succinate ER 25 mg tablet,ext ended release 24 hr TAKE 1 TABLET BY MOUTH EVERY DAY [facility] tramadol 50 mg tablet TAKE 1 TABLET BY MOUTH TWICE DAILY NEEDED FOR PAIN tramadol 50 mg tablet TAKE 1 TABLET BY MOUTH TWICE DAILY NEEDED FOR PAIN No tramadol 50 mg tablet TAKE 1 TABLET BY MOUTH TWICE DAILY NEEDED FOR PAIN [facility] atorvastati n 10 mg tablet TAKE 1 TABLET BY MOUTH AT BEDTIME atorvastati n 10 mg tablet TAKE 1 TABLET BY MOUTH AT BEDTIME No atorvastat in 10 mg tablet TAKE 1 TABLET BY MOUTH AT BEDTIME [facility] clopidogrel 75 mg tablet TAKE 1 TABLET BY MOUTH DAILY clopidogrel 75 mg tablet TAKE 1 TABLET BY MOUTH DAILY No clopidogre l 75 mg tablet TAKE 1 TABLET BY MOUTH DAILY [facility] hydrocortis one valerate 0.2 % topical cream [...] FOR ITCHING FOR 2 WEEKS PER MONTH [facility] isosorbide mononitrate ER 30 mg tablet,exte nded release 24 hr TAKE 1 TABLET BY MOUTH EVERY DAY isosorbide mononitrate ER 30 mg tablet,exte nded release 24 hr TAKE 1 TABLET BY MOUTH EVERY DAY No isosorbide mononitrat e ER 30 mg tablet,ext ended release 24 hr TAKE 1 TABLET BY MOUTH EVERY DAY [facility] metoprolol succinate ER 25 mg tablet,exte nded release 24 hr TAKE 1 TABLET BY MOUTH EVERY DAY metoprolol succinate ER 25 mg tablet,exte nded release 24 hr TAKE 1 TABLET BY MOUTH EVERY DAY No metoprolol succinate ER 25 mg tablet,ext ended release 24 hr TAKE 1 TABLET BY MOUTH EVERY DAY [facility] tramadol 50 mg tablet TAKE 1 TABLET BY MOUTH TWICE DAILY NEEDED FOR PAIN tramadol 50 mg tablet TAKE 1 TABLET BY MOUTH TWICE DAILY NEEDED FOR PAIN No tramadol 50 mg tablet TAKE 1 TABLET BY MOUTH TWICE DAILY NEEDED FOR PAIN [facility] atorvastati n 10 mg tablet TAKE 1 TABLET BY MOUTH EVERY DAY AT BEDTIME atorvastati n 10 mg tablet TAKE 1 TABLET BY MOUTH EVERY DAY AT BEDTIME No atorvastat in 10 mg tablet TAKE 1 TABLET BY MOUTH EVERY DAY AT BEDTIME [facility] clopidogrel 75 mg tablet TAKE 1 TABLET BY MOUTH DAILY clopidogrel 75 mg tablet TAKE 1 TABLET BY MOUTH DAILY No clopidogre l 75 mg tablet TAKE 1 TABLET BY MOUTH DAILY [facility] hydrocortis one valerate 0.2 % topical cream [...] FOR ITCHING FOR 2 WEEKS PER MONTH [facility] isosorbide mononitrate ER 30 mg tablet,exte nded release 24 hr TAKE 1 TABLET BY MOUTH EVERY DAY isosorbide mononitrate ER 30 mg tablet,exte nded release 24 hr TAKE 1 TABLET BY MOUTH EVERY DAY No isosorbide mononitrat e ER 30 mg tablet,ext ended release 24 hr TAKE 1 TABLET BY MOUTH EVERY DAY [facility] metoprolol succinate ER 25 mg tablet,exte nded release 24 hr TAKE 1 TABLET BY MOUTH EVERY DAY metoprolol succinate ER 25 mg tablet,exte nded release 24 hr TAKE 1 TABLET BY MOUTH EVERY DAY No metoprolol succinate ER 25 mg tablet,ext ended release 24 hr TAKE 1 TABLET BY MOUTH EVERY DAY [facility] tramadol 50 mg tablet TAKE 1 TABLET BY MOUTH TWICE DAILY NEEDED FOR PAIN tramadol 50 mg tablet TAKE 1 TABLET BY MOUTH TWICE DAILY NEEDED FOR PAIN No tramadol 50 mg tablet TAKE 1 TABLET BY MOUTH TWICE DAILY NEEDED FOR PAIN [facility] atorvastati n 10 mg tablet TAKE 1 TABLET BY MOUTH AT BEDTIME atorvastati n 10 mg tablet TAKE 1 TABLET BY MOUTH AT BEDTIME No atorvastat in 10 mg tablet TAKE 1 TABLET BY MOUTH AT BEDTIME [facility] clopidogrel 75 mg tablet TAKE 1 TABLET BY MOUTH DAILY clopidogrel 75 mg tablet TAKE 1 TABLET BY MOUTH DAILY No clopidogre l 75 mg tablet TAKE 1 TABLET BY MOUTH DAILY [facility] isosorbide mononitrate ER 30 mg tablet,exte nded release 24 hr TAKE 1 TABLET BY MOUTH ONCE DAILY isosorbide mononitrate ER 30 mg tablet,exte nded release 24 hr TAKE 1 TABLET BY MOUTH ONCE DAILY No isosorbide mononitrat e ER 30 mg tablet,ext ended release 24 hr TAKE 1 TABLET BY MOUTH ONCE DAILY [facility] tramadol 50 mg tablet TAKE 1 TABLET BY MOUTH EVERY DAY NEEDED tramadol 50 mg tablet TAKE 1 TABLET BY MOUTH EVERY DAY NEEDED No tramadol 50 mg tablet TAKE 1 TABLET BY MOUTH EVERY DAY NEEDED [facility] atorvastati n 10 mg tablet TAKE 1 TABLET BY MOUTH AT BEDTIME atorvastati n 10 mg tablet TAKE 1 TABLET BY MOUTH AT BEDTIME No atorvastat in 10 mg tablet TAKE 1 TABLET BY MOUTH AT BEDTIME [facility] clopidogrel 75 mg tablet TAKE 1 TABLET BY MOUTH DAILY clopidogrel 75 mg tablet TAKE 1 TABLET BY MOUTH DAILY No clopidogre l 75 mg tablet TAKE 1 TABLET BY MOUTH DAILY [facility] isosorbide mononitrate ER 30 mg tablet,exte nded release 24 hr TAKE 1 TABLET BY MOUTH ONCE DAILY isosorbide mononitrate ER 30 mg tablet,exte nded release 24 hr TAKE 1 TABLET BY MOUTH ONCE DAILY No isosorbide mononitrat e ER 30 mg tablet,ext ended release 24 hr TAKE 1 TABLET BY MOUTH ONCE DAILY [facility] tramadol 50 mg tablet TAKE 1 TABLET BY MOUTH EVERY DAY NEEDED tramadol 50 mg tablet TAKE 1 TABLET BY MOUTH EVERY DAY NEEDED No tramadol 50 mg tablet TAKE 1 TABLET BY MOUTH EVERY DAY NEEDED [facility] Immunizations Ordered Immunization Name Filled Immunization Name Date Status Comments Source Pneumococcal conjugate PCV20, polysaccharide [id number] conjugate, adjuvant, PF Pneumococcal conjugate PCV20, polysaccharide [id number] conjugate, adjuvant, PF 2022-09-09 00:00:00 [facility] Pneumococcal conjugate PCV20, polysaccharide [id number] conjugate, adjuvant, PF Pneumococcal conjugate PCV20, polysaccharide [id number] conjugate, adjuvant, PF 2022-09-09 00:00:00 [facility] Pneumococcal conjugate PCV20, polysaccharide [id number] conjugate, adjuvant, PF Pneumococcal conjugate PCV20, polysaccharide [id number] conjugate, adjuvant, PF 2022-09-09 00:00:00 [facility] influenza, high-dose, quadrivalent influenza, high-dose, quadrivalent 2022-04-25 00:00:00 [facility] influenza, high-dose, quadrivalent influenza, high-dose, quadrivalent 2022-04-25 00:00:00 [facility] influenza, high-dose, quadrivalent influenza, high-dose, quadrivalent 2022-04-25 00:00:00 [facility] influenza, high-dose, quadrivalent influenza, high-dose, quadrivalent 2022-04-25 00:00:00 [facility] influenza, high-dose, quadrivalent influenza, high-dose, quadrivalent 2022-04-25 00:00:00 [facility] influenza, high-dose, quadrivalent influenza, high-dose, quadrivalent 2022-04-25 00:00:00 [facility] Influenza, injectable, MDCK, preservative free, quadrivalent Influenza, injectable, MDCK, preservative free, quadrivalent 2021-05-07 11:45:39 [facility] Influenza, injectable, MDCK, preservative free, quadrivalent Influenza, injectable, MDCK, preservative free, quadrivalent 2021-05-07 11:45:39 [facility] Influenza, injectable, MDCK, preservative free, quadrivalent Influenza, injectable, MDCK, preservative free, quadrivalent 2021-05-07 11:45:39 [facility] Influenza, injectable, MDCK, preservative free, quadrivalent Influenza, injectable, MDCK, preservative free, quadrivalent 2021-05-07 11:45:39 Completed [facility] Influenza, injectable, MDCK, preservative free, quadrivalent Influenza, injectable, MDCK, preservative free, quadrivalent 2021-05-07 11:45:39 Completed [facility] Influenza, injectable, MDCK, preservative free, quadrivalent Influenza, injectable, MDCK, preservative free, quadrivalent 2021-05-07 11:45:39 Completed [facility] Influenza, injectable, MDCK, preservative free, quadrivalent Influenza, injectable, MDCK, preservative free, quadrivalent 2021-05-07 11:45:39 Completed [facility] Influenza, injectable, MDCK, preservative free, quadrivalent Influenza, injectable, MDCK, preservative free, quadrivalent 2021-05-07 11:45:39 [facility] Influenza, injectable, MDCK, preservative free, quadrivalent Influenza, injectable, MDCK, preservative free, quadrivalent 2021-05-07 11:45:39 [facility] Influenza, injectable, MDCK, preservative free, quadrivalent Influenza, injectable, MDCK, preservative free, quadrivalent 2021-05-07 11:45:39 [facility] Influenza, injectable, MDCK, preservative free, quadrivalent Influenza, injectable, MDCK, preservative free, quadrivalent 2021-05-07 11:45:39 [facility] Influenza, injectable, MDCK, preservative free, quadrivalent Influenza, injectable, MDCK, preservative free, quadrivalent 2021-05-07 11:45:39 [facility] SARS-COV-2 (COVID-19) vaccine, UNSPECIFIED SARS-COV-2 (COVID-19) vaccine, UNSPECIFIED 2020-10-18 00:00:00 Completed [facility] COVID-19 (SARS-COV-2) vaccine, unspecified COVID-19 (SARS-COV-2) vaccine, unspecified 2020-10-18 00:00:00 Completed [facility] COVID-19 (SARS-COV-2) vaccine, unspecified COVID-19 (SARS-COV-2) vaccine, unspecified 2020-10-18 00:00:00 [facility] COVID-19 (SARS-COV-2) vaccine, unspecified COVID-19 (SARS-COV-2) vaccine, unspecified 2020-10-18 00:00:00 Completed [facility] COVID-19 (SARS-COV-2) vaccine, unspecified COVID-19 (SARS-COV-2) vaccine, unspecified 2020-10-18 00:00:00 Completed [facility] COVID-19 (SARS-COV-2) vaccine, unspecified COVID-19 (SARS-COV-2) vaccine, unspecified 2020-10-18 00:00:00 Completed [facility] COVID-19 (SARS-COV-2) vaccine, unspecified COVID-19 (SARS-COV-2) vaccine, unspecified 2020-10-18 00:00:00 Completed [facility] COVID-19 (SARS-COV-2) vaccine, unspecified COVID-19 (SARS-COV-2) vaccine, unspecified 2020-10-18 00:00:00 Completed [facility] COVID-19 (SARS-COV-2) vaccine, unspecified COVID-19 (SARS-COV-2) vaccine, unspecified 2020-10-18 00:00:00 Completed [facility] COVID-19 (SARS-COV-2) vaccine, unspecified COVID-19 (SARS-COV-2) vaccine, unspecified 2020-10-18 00:00:00 Completed [facility] COVID-19 (SARS-COV-2) vaccine, unspecified COVID-19 (SARS-COV-2) vaccine, unspecified 2020-10-18 00:00:00 Completed [facility] COVID-19 (SARS-COV-2) vaccine, unspecified COVID-19 (SARS-COV-2) vaccine, unspecified 2020-10-18 00:00:00 Completed [facility] COVID-19 (SARS-COV-2) vaccine, unspecified COVID-19 (SARS-COV-2) vaccine, unspecified 2020-10-18 00:00:00 Completed [facility] SARS-COV-2 (COVID-19) vaccine, UNSPECIFIED SARS-COV-2 (COVID-19) vaccine, UNSPECIFIED 2020-10-18 00:00:00 Completed [facility] SARS-COV-2 (COVID-19) vaccine, UNSPECIFIED SARS-COV-2 (COVID-19) vaccine, UNSPECIFIED 2020-09-21 00:00:00 Completed [facility] COVID-19 (SARS-COV-2) vaccine, unspecified COVID-19 (SARS-COV-2) vaccine, unspecified 2020-09-21 00:00:00 Completed [facility] COVID-19 (SARS-COV-2) vaccine, unspecified COVID-19 (SARS-COV-2) vaccine, unspecified 2020-09-21 00:00:00 Completed [facility] COVID-19 (SARS-COV-2) vaccine, unspecified COVID-19 (SARS-COV-2) vaccine, unspecified 2020-09-21 00:00:00 Completed [facility] COVID-19 (SARS-COV-2) vaccine, unspecified COVID-19 (SARS-COV-2) vaccine, unspecified 2020-09-21 00:00:00 Completed [facility] COVID-19 (SARS-COV-2) vaccine, unspecified COVID-19 (SARS-COV-2) vaccine, unspecified 2020-09-21 00:00:00 Completed [facility] COVID-19 (SARS-COV-2) vaccine, unspecified COVID-19 (SARS-COV-2) vaccine, unspecified 2020-09-21 00:00:00 Completed [facility] COVID-19 (SARS-COV-2) vaccine, unspecified COVID-19 (SARS-COV-2) vaccine, unspecified 2020-09-21 00:00:00 Completed [facility] COVID-19 (SARS-COV-2) vaccine, unspecified COVID-19 (SARS-COV-2) vaccine, unspecified 2020-09-21 00:00:00 Completed [facility] COVID-19 (SARS-COV-2) vaccine, unspecified COVID-19 (SARS-COV-2) vaccine, unspecified 2020-09-21 00:00:00 Completed [facility] COVID-19 (SARS-COV-2) vaccine, unspecified COVID-19 (SARS-COV-2) vaccine, unspecified 2020-09-21 00:00:00 Completed [facility] COVID-19 (SARS-COV-2) vaccine, unspecified COVID-19 (SARS-COV-2) vaccine, unspecified 2020-09-21 00:00:00 Completed [facility] COVID-19 (SARS-COV-2) vaccine, unspecified COVID-19 (SARS-COV-2) vaccine, unspecified 2020-09-21 00:00:00 Completed [facility] SARS-COV-2 (COVID-19) vaccine, UNSPECIFIED SARS-COV-2 (COVID-19) vaccine, UNSPECIFIED 2020-09-21 00:00:00 Completed [facility] SARS-COV-2 (COVID-19) vaccine, UNSPECIFIED SARS-COV-2 (COVID-19) vaccine, UNSPECIFIED 2020-09-18 00:00:00 [facility] influenza, injectable, quadrivalent influenza, injectable, quadrivalent 2020-03-28 00:00:00 [facility] influenza, injectable, quadrivalent influenza, injectable, quadrivalent 2020-03-28 00:00:00 [facility] influenza, injectable, quadrivalent influenza, injectable, quadrivalent 2020-03-28 00:00:00 [facility] influenza, injectable, quadrivalent influenza, injectable, quadrivalent 2020-03-28 00:00:00 [facility] influenza, injectable, quadrivalent influenza, injectable, quadrivalent 2020-03-28 00:00:00 [facility] influenza, injectable, quadrivalent influenza, injectable, quadrivalent 2020-03-28 00:00:00 [facility] influenza, injectable, quadrivalent influenza, injectable, quadrivalent 2020-03-28 00:00:00 [facility] influenza, injectable, quadrivalent influenza, injectable, quadrivalent 2020-03-28 00:00:00 [facility] influenza, injectable, quadrivalent influenza, injectable, quadrivalent 2020-03-28 00:00:00 Completed [facility] influenza, injectable, quadrivalent influenza, injectable, quadrivalent 2020-03-28 00:00:00 Completed [facility] influenza, injectable, quadrivalent influenza, injectable, quadrivalent 2020-03-28 00:00:00 [facility] influenza, injectable, quadrivalent influenza, injectable, quadrivalent 2020-03-28 00:00:00 Completed [facility] influenza, injectable, quadrivalent influenza, injectable, quadrivalent 2020-03-28 00:00:00 [facility] influenza, injectable, quadrivalent influenza, injectable, quadrivalent 2020-03-28 00:00:00 [facility] influenza, injectable, quadrivalent influenza, injectable, quadrivalent 2020-03-28 00:00:00 [facility] influenza, injectable, quadrivalent influenza, injectable, quadrivalent 2019-05-04 00:00:00 [facility] influenza, injectable, quadrivalent influenza, injectable, quadrivalent 2019-05-04 00:00:00 [facility] influenza, injectable, quadrivalent influenza, injectable, quadrivalent 2019-05-04 00:00:00 [facility] influenza, injectable, quadrivalent influenza, injectable, quadrivalent 2019-05-04 00:00:00 [facility] influenza, injectable, quadrivalent influenza, injectable, quadrivalent 2019-05-04 00:00:00 [facility] influenza, injectable, quadrivalent influenza, injectable, quadrivalent 2019-05-04 00:00:00 [facility] influenza, injectable, quadrivalent influenza, injectable, quadrivalent 2019-05-04 00:00:00 [facility] influenza, injectable, quadrivalent influenza, injectable, quadrivalent 2019-05-04 00:00:00 [facility] influenza, injectable, quadrivalent influenza, injectable, quadrivalent 2019-05-04 00:00:00 [facility] influenza, injectable, quadrivalent influenza, injectable, quadrivalent 2019-05-04 00:00:00 [facility] influenza, injectable, quadrivalent influenza, injectable, quadrivalent 2019-05-04 00:00:00 [facility] influenza, injectable, quadrivalent influenza, injectable, quadrivalent 2019-05-04 00:00:00 Completed [facility] influenza, injectable, quadrivalent influenza, injectable, quadrivalent 2019-05-04 00:00:00 Completed [facility] influenza, injectable, quadrivalent influenza, injectable, quadrivalent 2019-05-04 00:00:00 [facility] influenza, injectable, quadrivalent influenza, injectable, quadrivalent 2019-05-04 00:00:00 [facility] Influenza, injectable, MDCK, preservative free, quadrivalent Influenza, injectable, MDCK, preservative free, quadrivalent Unknown Completed [facility] Pneumococcal conjugate PCV20, polysaccharide [id number] conjugate, adjuvant, PF Pneumococcal conjugate PCV20, polysaccharide [id number] conjugate, adjuvant, PF Unknown Completed [facility] influenza, high-dose, quadrivalent influenza, high-dose, quadrivalent Unknown Completed [facility] COVID-19 (SARS-COV-2) vaccine, unspecified COVID-19 (SARS-COV-2) vaccine, unspecified Unknown Completed [facility] COVID-19 (SARS-COV-2) vaccine, unspecified COVID-19 (SARS-COV-2) vaccine, unspecified Unknown Completed [facility] influenza, injectable, quadrivalent influenza, injectable, quadrivalent Unknown Completed [facility] influenza, injectable, quadrivalent influenza, injectable, quadrivalent Unknown Completed [facility] Influenza, injectable, MDCK, preservative free, quadrivalent Influenza, injectable, MDCK, preservative free, quadrivalent Unknown Completed [facility] Pneumococcal conjugate PCV20, polysaccharide [id number] conjugate, adjuvant, PF Pneumococcal conjugate PCV20, polysaccharide [id number] conjugate, adjuvant, PF Unknown Completed [facility] influenza, high-dose, quadrivalent influenza, high-dose, quadrivalent Unknown Completed [facility] COVID-19 (SARS-COV-2) vaccine, unspecified COVID-19 (SARS-COV-2) vaccine, unspecified Unknown Completed [facility] COVID-19 (SARS-COV-2) vaccine, unspecified COVID-19 (SARS-COV-2) vaccine, unspecified Unknown Completed [facility] influenza, injectable, quadrivalent influenza, injectable, quadrivalent Unknown Completed [facility] influenza, injectable, quadrivalent influenza, injectable, quadrivalent Unknown Completed [facility] Vital Signs Vital Name Observation Time Observation Value Comments S ource BP Diastolic 2023-06-16 00:00:00 70 mm[Hg] [facility] BMI (Body Mass Index) 2023-06-16 00:00:00 25.1 kg/m2 [facility] BP Systolic 2023-06-16 00:00:00 118 mm[Hg] [facility] Body Weight 2023-06-16 00:00:00 2640 [oz_av] [facility] Height 2023-06-16 00:00:00 68 [in_i] [facility] BMI (Body Mass Index) 2023-04-14 00:00:00 26.9 kg/m2 [facility] Body Weight 2023-04-14 00:00:00 2832 [oz_av] [facility] Height 2023-04-14 00:00:00 68 [in_i] [facility] BP Diastolic 2023-04-14 00:00:00 72 mm[Hg] [facility] BP Systolic 2023-04-14 00:00:00 120 mm[Hg] [facility] BP Diastolic 2023-02-11 00:00:00 74 mm[Hg] [facility] Height 2023-02-11 00:00:00 68 [in_i] [facility] BMI (Body Mass Index) 2023-02-11 00:00:00 27.2 kg/m2 [facility] BP Systolic 2023-02-11 00:00:00 124 mm[Hg] [facility] Body Weight 2023-02-11 00:00:00 2864 [oz_av] [facility] BP Diastolic 2022-12-12 00:00:00 70 mm[Hg] [facility] Height 2022-12-12 00:00:00 68 [in_i] [facility] BP Systolic 2022-12-12 00:00:00 116 mm[Hg] [facility] BP Diastolic 2022-09-09 00:00:00 72 mm[Hg] [facility] Height 2022-09-09 00:00:00 68 [in_i] [facility] BMI (Body Mass Index) 2022-09-09 00:00:00 28.6 kg/m2 [facility] BP Systolic 2022-09-09 00:00:00 120 mm[Hg] [facility] Body Weight 2022-09-09 00:00:00 3008 [oz_av] [facility] BP Diastolic 2022-07-15 00:00:00 74 mm[Hg] [facility] Height 2022-07-15 00:00:00 68 [in_i] [facility] BMI (Body Mass Index) 2022-07-15 00:00:00 29 kg/m2 [facility] BP Systolic 2022-07-15 00:00:00 114 mm[Hg] [facility] Body Weight 2022-07-15 00:00:00 3048 [oz_av] [facility] BP Diastolic 2022-06-06 00:00:00 74 mm[Hg] [facility] Height 2022-06-06 00:00:00 68 [in_i] [facility] BMI (Body Mass Index) 2022-06-06 00:00:00 28.7 kg/m2 [facility] BP Systolic 2022-06-06 00:00:00 120 mm[Hg] [facility] Body Weight 2022-06-06 00:00:00 3024 [oz_av] [facility] Body height 2022-04-22 14:15:00 157.5 cm [facility] Body weight 2022-04-22 14:15:00 82.555 kg [facility] BMI 2022-04-22 14:15:00 33.29 kg/m2 [facility] BP Diastolic 2022-03-07 00:00:00 72 mm[Hg] [facility] Height 2022-03-07 00:00:00 68 [in_i] [facility] BMI (Body Mass Index) 2022-03-07 00:00:00 29.3 kg/m2 [facility] BP Systolic 2022-03-07 00:00:00 116 mm[Hg] [facility] Body Weight 2022-03-07 00:00:00 3088 [oz_av] [facility] BP Diastolic 2021-12-06 00:00:00 62 mm[Hg] [facility] Height 2021-12-06 00:00:00 68 [in_i] [facility] BMI (Body Mass Index) 2021-12-06 00:00:00 29.2 kg/m2 [facility] BP Systolic 2021-12-06 00:00:00 108 mm[Hg] [facility] Body Weight 2021-12-06 00:00:00 3072 [oz_av] [facility] BP Diastolic 2021-10-30 00:00:00 70 mm[Hg] [facility] Height 2021-10-30 00:00:00 68 [in_i] [facility] BMI (Body Mass Index) 2021-10-30 00:00:00 29.2 kg/m2 [facility] BP Systolic 2021-10-30 00:00:00 112 mm[Hg] [facility] Body Weight 2021-10-30 00:00:00 3072 [oz_av] [facility] BP Diastolic 2021-10-15 00:00:00 82 mm[Hg] [facility] Height 2021-10-15 00:00:00 68 [in_i] [facility] BMI (Body Mass Index) 2021-10-15 00:00:00 29.3 kg/m2 [facility] BP Systolic 2021-10-15 00:00:00 116 mm[Hg] [facility] Body Weight 2021-10-15 00:00:00 3088 [oz_av] [facility] BP Diastolic 2021-10-02 00:00:00 78 mm[facility]Hg] [facility] Height 2021-10-02 00:00:00 68 [in_i] [facility] BP Systolic 2021-10-02 00:00:00 116 mm[Hg] [facility] Height 2021-05-07 00:00:00 68 [in_i] [facility] BP Diastolic 2021 00:00:00 62 mm[Hg] [facility] Height 2021 00:00:00 68 [in_i] [facility] BMI (Body Mass Index) 2021 00:00:00 29.6 kg/m2 [facility] BP Systolic 2021 00:00:00 106 mm[Hg] [facility] Body Weight 2021 00:00:00 3112 [oz_av] [facility] BP Diastolic 2021-01-02 00:00:00 62 mm[Hg] [facility] Height 2021-01-02 00:00:00 68 [in_i] [facility] BMI (Body Mass Index) 2021-01-02 00:00:00 29.3 kg/m2 [facility] BP Systolic 2021-01-02 00:00:00 102 mm[Hg] [facility] Body Weight 2021-01-02 00:00:00 3088 [oz_av] [facility] BP Diastolic 2020-10-03 00:00:00 82 mm[Hg] [facility] Height 2020-10-03 00:00:00 68 [in_i] [facility] BMI (Body Mass Index) 2020-10-03 00:00:00 30 kg/m2 [facility] BP Systolic 2020-10-03 00:00:00 128 mm[Hg] [facility] Body Weight 2020-10-03 00:00:00 3152 [oz_av] [facility] Procedures Procedure Date / Time Performed Performing Clinician Source [id number] 2023-08-19 00:00:00 [facility]BR.01 [facility] [id number] 2023-08-19 00:00:00 [facility] [id number] 2023-08-19 00:00:00 [facility]01 [facility] [id number] 2023-08-19 00:00:00 [facility].01 [facility] [id number] 2023-08-19 00:00:00 [facility].01 [facility] [id number] 2023-08-19 00:00:00 [facility]BR.01 [facility] [id number] 2023-08-19 00:00:00 [facility]BR.01 [facility] [id number] 2023-08-19 00:00:00 [facility].01 [facility] [id number] 2023-08-19 00:00:00 [facility]BR.01 [facility] [id number] 2023-08-18 00:00:00 [facility].01 [facility] [id number] 2023-08-18 00:00:00 GREBR.01 [facility] [id number] 2023-08-13 00:00:00 [facility]Y [facility] [id number] 2023-08-13 00:00:00 [facility] [id number] 2023-08-13 00:00:00 [facility] [id number] 2023-08-13 00:00:00 [facility] [id number] 2023-08-13 00:00:00 [facility] [id number] 2023-08-13 00:00:00 [facility] [id number] 2023-08-13 00:00:00 [facility] [id number] 2023-08-13 00:00:00 [facility] [id number] 2023-08-13 00:00:00 [facility] [id number] 2023-08-13 00:00:00 [facility] [id number] 2023-08-13 00:00:00 [facility] [id number] 2023-08-13 00:00:00 [facility] [id number] 2021-12-15 00:00:00 [facility] [id number] 2021-12-15 00:00:00 [facility] [id number] 2021-12-15 00:00:[address] [facility] [address], neck, w/o contrast 2021-10-02 00:00:00 [facility] CT, head, w/o contrast 2021-10-02 00:00:[address] [facility] CT, cervical spine, w/o contrast 2021-10-02 00:00:00 [facility] Cardiac Pacemaker Procedure [facility] Prostatectomy (Turp) [facility] Cholecystectomy [facility] Shoulder Joint Surgery [facility] K[facility] Plan of Care Planned Activity Planned Date Details Comments Source Diagnostic Test Pending 2023-06-16 00:00:00 lipid panel, serum [code = lipid panel, serum] [facility] Diagnostic Test Pending 2023-06-16 00:00:00 CMP, serum or plasma [code = CMP, serum or plasma] [facility] Diagnostic Test Pending 2023-06-16 00:00:00 CBC w/ auto diff [code = CBC w/ auto diff] [facility] Diagnostic Test Pending 2023-06-16 00:00:00 vitamin D, 25-hydroxy, total, serum [code = vitamin D, 25-hydroxy, total, serum] [facility] Diagnostic Test Pending 2023-06-16 00:00:00 TSH + free T4, serum [code = TSH + free T4, serum] [facility] Diagnostic Test Pending 2023-06-16 00:00:00 HbA1c (hemoglobin A1c), blood [code = HbA1c (hemoglobin A1c), blood] [facility] Diagnostic Test Pending 2023-06-16 00:00:00 urinalysis, complete [code = urinalysis, complete] [facility] Diagnostic Test Pending 2023-06-16 00:00:00 PSA, serum or plasma [code = PSA, serum or plasma] [facility] Future Appointment 2023-12-15 00:00:00 Criselda Grier, [address]; [address], [place] [address] [facility] Instructions [facility] Encounters Start Date/Time End Date/Time Encounter Type Admission Type Attending Clinicians Care Facility Care Department Encounter ID Source 2022-10-15 11:25:24 Outpatient [facility] [id number] [facility] 2022-04-22 08:37:07 Outpatient [facility] [id number] [facility] 2022-04-18 09:41:06 Outpatient [facility] [id number] [facility] 2022-04-17 09:44:45 Outpatient [facility] [id number] [facility] 2023-08-26 19:07:00 2023-09-06 11:34:00 Inpatient 3 ALEJANDRA LEWIS ENCPL CRD [id number] [facility] 2023-08-09 15:50:00 2023-08-26 18:17:00 Inpatient Tony Evangelista [facility] CARDIAC [id number] [facility] 2023-08-09 19:13:00 2023-08-09 19:13:00 Outpatient UNKNOWN HCACL LABO [id number] [facility] 2023-08-09 19:12:00 2023-08-09 19:12:00 Outpatient Tony Gautam HCANW REF [id number] [facility] 2023-08-09 07:15:00 2023-08-09 07:15:00 Outpatient Deyvi Sanchez [facility] CATH [id number] [facility] 2023-08-09 07:15:00 2023-08-09 07:15:00 Outpatient Deyvi Sanchez [facility] [id number] [facility] 2023-08-05 06:03:00 2023-08-07 11:01:00 Inpatient Alvaro Jefferson HCAWU INTE.02 [id number] [facility] 2023-06-16 00:00:00 2023-06-16 00:00:00 Criselda Grier [facility]: [address], [place] [address] , [address] [facility], DR. CARRERO [id number] [facility] 2023-06-13 00:00:00 2023-06-13 00:00:00 Outpatient ERICKSON_R [facility] [id number] [facility] 2023-04-14 00:00:00 2023-04-14 00:00:00 Outpatient [facility]ICKSON_R [facility] [id number] [facility] 2023-04-14 00:00:00 2023-04-14 00:00:00 Outpatient [facility]ICKSON_R [facility] [id number] [facility] 2023-04-14 00:00:00 2023-04-14 00:00:00 Jamari Carrero, DO: [place] [address] , Ph. [facility], DR[facility] CARRERO [id number] [facility] 2023-03-08 00:00:00 2023-03-08 00:00:00 Outpatient [facility]SON_R [facility] [id number] [facility] 2023-02-11 00:00:00 2023-02-11 00:00:00 Jamari Carrero, DO: [address] [place] [address] , Ph. [phone] [facility], DR[facility] CARRERO [id number] [facility] 2023-01-24 00:00:00 2023-01-24 00:00:00 Outpatient ERICKSON_R [facility] [id number] [facility] 2023-01-12 00:00:00 2023-01-12 00:00:00 Outpatient [facility]SON[facility]R [facility] [id number] [facility] 2022-12-20 00:00:00 2022-12-20 00:00:00 Outpatient [facility]ICKSON_R [facility] [id number] [facility] 2022-12-12 00:00:00 2022-12-12 00:00:00 Jamari Carrero, DO: [address] [place] [address] , Ph. [phone] [facility], DR. CARRERO [id number] [facility] 2022-12-08 00:00:00 2022-12-08 00:00:00 Outpatient [facility] [id number] [facility] 2022-12-08 00:00:00 2022-12-08 00:00:00 Outpatient [facility] [id number] [facility] 2022-09-09 00:00:00 2022-09-09 00:00:00 Jamari Carrero, DO: [address] [place] [address] , Ph. [phone] [facility], DR[facility] CARRERO [id number] [facility] 2022-08-20 00:00:00 2022-08-20 00:00:00 Outpatient [facility]SON[facility]R [facility] [id number] [facility] 2022-07-15 00:00:00 2022-07-15 00:00:00 Outpatient [facility]SON_R [facility] [id number] [facility] 2022-07-15 00:00:00 2022-07-15 00:00:00 Outpatient [facility]SON[facility]R [facility] [id number] [facility] 2022-07-15 00:00:00 2022-07-15 00:00:00 Jamari Carrero, DO: [address], [place] [address] , Ph. [facility], DR[facility] CARRERO [id number] [facility] 2022-06-06 00:00:00 2022-06-06 00:00:00 Outpatient [facility]SON_R [facility] [id number] [facility] 2022-06-06 00:00:00 2022-06-06 00:00:00 Jamari Carrero, DO: [address], [place] [address] , [address]. [facility], DR. CARRERO [id number] [facility] 2022-04-22 00:00:00 2022-04-22 12:05:51 Outpatient [facility] [id number] [facility] 2022-04-22 09:00:00 2022-04-22 09:36:16 Office Visit Fernando Harris [facility] 2 [id number] [facility] 2022-03-11 00:00:00 2022-03-11 00:00:00 Outpatient ERICKSON_R [facility] [id number] [facility] 2022-03-07 00:00:00 2022-03-07 00:00:00 Outpatient ERICKSON_R [facility] [id number] [facility] 2022-03-07 00:00:00 2022-03-07 00:00:00 Jamari Carrero, DO: [address] [place] [address] , Ph. [phone] [facility], DR[facility] CARRERO [id number] [facility] 2022-03-07 00:00:00 2022-03-07 00:00:00 Outpatient Jamari Carrero [facility] [id number] 2022-01-04 11:16:00 2022-01-04 11:16:00 Outpatient ERICKSON_R [facility] [id number] [facility] 2021-12-13 17:13:00 2021-12-16 13:23:00 Inpatient EM Alvaro Ron HCA[facility] INTE.02 [id number] [facility] 2021-12-13 17:13:00 2021-12-16 13:23:00 Inpatient EM Alvaro Ron [facility]CAW[facility] INTE.02 [id number] [facility] 2021-12-06 02:18:00 2021-12-06 02:18:00 Outpatient ERICKSON_R [facility] [id number] [facility] 2021-12-06 00:00:00 2021-12-06 00:00:00 Jamari Carrero, DO: [address] [place] [address] , Ph. [facility], DR[facility] CARRERO [id number] [facility] 2021-12-06 00:00:00 2021-12-06 00:00:00 Outpatient Jamari Carrero [facility] [id number] 2021-11-20 10:33:00 2021-11-20 10:33:00 Outpatient ERICKSON_R [facility] [id number] [facility] 2021-10-30 12:00:00 2021-10-30 12:00:00 Outpatient ERICKSON_R [facility] [id number] [facility] 2021-10-30 00:00:00 2021-10-30 00:00:00 Jamari Carrero, DO: [address] [place] [address] , Ph. [facility], DR[facility] CARRERO [id number] [facility] 2021-10-30 00:00:00 2021-10-30 00:00:00 Outpatient Jamari Carrero [facility] [id number] 2021-10-15 11:27:00 2021-10-15 11:27:00 Outpatient ERERROLON_R [facility] [id number] [facility] 2021-10-15 00:00:00 2021-10-15 00:00:00 Jamari Carrero, DO: [address] [place] [address] , Ph. [phone] [facility], DR[facility] CARRERO [id number] [facility] 2021-10-15 00:00:00 2021-10-15 00:00:00 Outpatient Jamari Carrero [facility] [id number] 2021-10-02 12:47:00 2021-10-02 12:47:00 Outpatient ERICKSON_R [facility] [id number] [facility] 2021-10-02 00:00:00 2021-10-02 00:00:00 Jamari Carrero, DO: [address] [place] [address] , Ph. [facility], DR. CARRERO [id number] Count Includes [facility] ty [facility] 2021-10-02 00:00:00 2021-10-02 00:00:00 Outpatient Jamari Carrero [facility] [id number] 2021-10-02 00:00:00 2021-10-02 00:00:00 Outpatient Jamari Carrero [facility] [id number] 2021-07-17 10:14:00 2021-07-17 10:14:00 Outpatient ERMARCOS_R [facility] [id number] [facility] 2021-07-17 00:00:00 2021-07-17 00:00:00 Jamari Carrero, DO: [address] [place] [address] , Ph. [phone] [facility], DR[facility] CARRERO [id number] [facility] 2021-05-07 11:42:00 2021-05-07 11:42:00 Outpatient ERICKSON_R [facility] [id number] [facility] 2021-05-07 00:00:00 2021-05-07 00:00:00 Jamari Carrero DO: [address] [place] [address] , Ph. [facility], DR[facility] CARRERO [id number] [facility] 2021 10:54:00 2021 10:54:00 Outpatient ERICKSON_R [facility] [id number] [facility] 2021 00:00:00 2021 00:00:00 Outpatient Jamari Carrero [facility] [id number] 2021 00:00:00 2021 00:00:00 Jamari Carrero, DO: [address] [place] [address] , Ph. [phone] [facility], DR[facility] CARRERO [id number] [facility] 2021-02-20 12:57:00 2021-02-20 12:57:00 Outpatient ERICKSON_R [facility] [id number] [facility] 2021-01-02 10:21:00 2021-01-02 10:21:00 Outpatient ERICKSON_R [facility] [id number] [facility] 2021-01-02 00:00:00 2021-01-02 00:00:00 Outpatient Jamari Carrero [facility] [id number] 2021-01-02 00:00:00 2021-01-02 00:00:00 Jamari Carrero, DO: [address] [place] [address] , Ph. [phone] [facility] [place] [facility], DR. CARRERO [id number] [facility] 2020-10-03 09:55:00 2020-10-03 09:55:00 Outpatient MAGAN_R [facility] [id number] [facility] 2020-10-03 00:00:00 2020-10-03 00:00:00 Outpatient Jamari Carrero [facility] [id number] 2020-10-03 00:00:00 2020-10-03 00:00:00 Jamari Carrero, DO: [address], [place] [address] , Ph. [facility], DR. CARRERO [id number] [facility] 2020-08-01 08:35:00 2020-08-01 08:35:00 Outpatient RADHA [facility] [id number] [facility] Results Test Description Test Time Test Comments Results Result Co mments Source [facility]2024-02-05 11:35:00* Test Item Value Reference Range Interpretation Comme nts LD (test code = 86915571) 212 U/L 120-250 N [facility] (DIFF/PLT)2023-09-01 11:35:00* Test Item Value Reference Range Interpretation Comme nts WHITE BLOOD CELL COUNT (test code = 02843671) 10.1 Thousand/uL 3.8-10.8 N RED BLOOD CELL COUNT (test code = 24202034) 2.85 Million/uL 4.20-5.80 L HEMOGLOBIN (test code = 67314877) 9.1 g/dL 13.2-17.1 L HEMATOCRIT (test code = 73229250) 27.6 % 38.5-50.0 L MCV (test code = 63056456) 96.8 fL 80.0-100.0 N MCH (test code = 25413265) 31.9 pg 27.0-33.0 N MCHC (test code = 09054360) 33.0 g/dL 32.0-36.0 N RDW (test code = 07276422) 19.5 % 11.0-15.0 H PLATELET COUNT (test code = 76802632) 216 Thousand/uL 140-400 N MPV (test code = 48112785) 9.7 fL 7.5-12.5 N ABSOLUTE NEUTROPHILS (test code = 48758653) 7464 cells/uL 7337-1511 N ABSOLUTE LYMPHOCYTES (test code = 49407956) 1273 cells/uL 850-3900 N ABSOLUTE MONOCYTES (test code = 63806390) 1091 cells/uL 200-950 H ABSOLUTE EOSINOPHILS (test code = 22974361) 202 cells/uL 15-500 N ABSOLUTE BASOPHILS (test code = 63562199) 71 cells/uL 0-200 N NEUTROPHILS (test code = 61884965) 73.9 % N LYMPHOCYTES (test code = 94249840) 12.6 % N MONOCYTES (test code = 31326898) 10.8 % N EOSINOPHILS (test code = 60529592) 2.0 % N BASOPHILS (test code = 35784998) 0.7 % N [facility] [id number] 14:34:00* Test Item Value Reference Range Interpretation Comme nts GLUCOSE (test code = 29469807) 97 mg/dL 65-99 N Fasting referenc e interval UREA NITROGEN (BUN) (test code = 38875860) 18 mg/dL 7-25 N CREATININE (test code = 01440195) 1.05 mg/dL 0.70-1.22 N EGFR (test code = 43734990) 68 mL/min/1.73m2 >=60 N BUN/CREATININE RATIO (test code = 21692706) SEE NOTE: (calc) 6-22 N Not Reported: BUN and Creatinine are within reference range. SODIUM (test code = 04413047) 134 mmol/L 135-146 L POTASSIUM (test code = 66347378) 4.7 mmol/L 3.5-5.3 N CHLORIDE (test code = 82294883) 96 mmol/L 98-110 L CARBON DIOXIDE (test code = 17158005) 30 mmol/L 20-32 N CALCIUM (test code = 95426671) 8.3 mg/dL 8.6-10.3 L [facility] [id number] 14:34:00* Test Item Value Reference Range Interpretation Comme nts PROTEIN, TOTAL (test code = 37221036) 5.9 g/dL 6.1-8.1 L ALBUMIN (test code = 91376811) 3.1 g/dL 3.6-5.1 L GLOBULIN (test code = 83901477) 2.8 g/dL (calc) 1.9-3.7 N ALBUMIN/GLOBULIN RATIO (test code = 70713871) 1.1 (calc) 1.0-2.5 N BILIRUBIN, TOTAL (test code = 32178635) 1.8 mg/dL 0.2-1.2 H BILIRUBIN, DIRECT (test code = 92598382) 0.5 mg/dL 0.0-0.2 H BILIRUBIN, INDIRECT (test code = 16760517) 1.3 mg/dL (calc) 0.2-1.2 H ALKALINE PHOSPHATASE (test code = 21436260) 90 U/L 35-144 N AST (test code = 69382144) 15 U/L 10-35 N ALT (test code = 47759099) 12 U/L 9-46 N [facility] META [id number] 12:22:00* Test Item Value Reference Range Interpretation Comme nts GLUCOSE (test code = 78459346) 90 mg/dL 65-99 N Fasting referenc e interval UREA NITROGEN (BUN) (test code = 45760609) 20 mg/dL 7-25 N CREATININE (test code = 98893584) 1.08 mg/dL 0.70-1.22 N EGFR (test code = 97908494) 66 mL/min/1.73m2 >=60 N BUN/CREATININE RATIO (test code = 11879694) SEE NOTE: (calc) 6-22 N Not Reported: BUN and Creatinine are within reference range. SODIUM (test code = 68561035) 134 mmol/L 135-146 L POTASSIUM (test code = 30370217) 4.4 mmol/L 3.5-5.3 N CHLORIDE (test code = 67983222) 98 mmol/L 98-110 N CARBON DIOXIDE (test code = 85208089) 28 mmol/L 20-32 N CALCIUM (test code = 71303951) 7.9 mg/dL 8.6-10.3 L PROTEIN, TOTAL (test code = 82635726) 5.6 g/dL 6.1-8.1 L ALBUMIN (test code = 30261153) 2.8 g/dL 3.6-5.1 L GLOBULIN (test code = 93953330) 2.8 g/dL (calc) 1.9-3.7 N ALBUMIN/GLOBULIN RATIO (test code = 23555130) 1.0 (calc) 1.0-2.5 N BILIRUBIN, TOTAL (test code = 21541128) 1.5 mg/dL 0.2-1.2 H ALKALINE PHOSPHATASE (test code = 32890612) 76 U/L 35-144 N AST (test code = 45009065) 16 U/L 10-35 N ALT (test code = 33162332) 11 U/L 9-46 N [facility] WITH [id number] 12:22:00* Test Item Value Reference Range Interpretation Comme [facility] INR (test code = 10658683) 1.3 H Reference Range 0.9-1.1Moderate-intensity Warfarin Therapy 2.0-3.0Higher-intensity Warfarin Therapy 3.0-4.0 PT (test code = 39891554) 13.1 sec 9.0-11.5 H For additional information, please refer tohttp://education.Viagogo/faq/FZC636 (This link is being provided for informational/educational purposes only.) [facility]2023-08-28 12:22:00* Test Item Value Reference Range Interpretation Comme nts WHITE BLOOD CELL COUNT (test code = 30168779) 8.7 Thousand/uL 3.8-10.8 N RED BLOOD CELL COUNT (test code = 44840356) 2.70 Million/uL 4.20-5.80 L HEMOGLOBIN (test code = 28952112) 8.4 g/dL 13.2-17.1 L HEMATOCRIT (test code = 82055128) 25.5 % 38.5-50.0 L MCV (test code = 87140383) 94.4 fL 80.0-100.0 N MCH (test code = 91670369) 31.1 pg 27.0-33.0 N MCHC (test code = 59512210) 32.9 g/dL 32.0-36.0 N RDW (test code = 23924928) 19.9 % 11.0-15.0 H PLATELET COUNT (test code = 32590744) 363 Thousand/uL 140-400 N MPV (test code = 11391518) 9.4 fL 7.5-12.5 N ABSOLUTE NEUTROPHILS (test code = 99215145) 6308 cells/uL 5198-9550 N ABSOLUTE LYMPHOCYTES (test code = 77535650) 1148 cells/uL 850-3900 N ABSOLUTE MONOCYTES (test cod e = 63148289) 914 cells/uL 200-950 N ABSOLUTE EOSINOPHILS (test code = 55239734) 270 cells/uL 15-500 N ABSOLUTE BASOPHILS (test cod e = 75449208) 61 cells/uL 0-200 N NEUTROPHILS (test code = 69299268) 72.5 % N LYMPHOCYTES (test code = 17878085) 13.2 % N MONOCYTES (test code = 76013105) 10.5 % N EOSINOPHILS (test code = 89579185) 3.1 % N BASOPHILS (test code = 02322792) 0.7 % N [facility] [id number] 16:28:00* Test Item Value Reference Range Interpretation Comme nts GLUCOSE (test code = 67119129) 90 mg/dL 65-99 N Fasting referenc e interval UREA NITROGEN (BUN) (test code = 62911093) 22 mg/dL 7-25 N CREATININE (test code = 99658967) 1.03 mg/dL 0.70-1.22 N EGFR (test code = 89292062) 70 mL/min/1.73m2 >=60 N BUN/CREATININE RATIO (test code = 12267263) SEE NOTE: (calc) 6-22 N Not Reported: BUN and Creatinine are within reference range. SODIUM (test code = 36553235) 136 mmol/L 135-146 N POTASSIUM (test code = 55357684) 4.4 mmol/L 3.5-5.3 N CHLORIDE (test code = 74169499) 98 mmol/L 98-110 N CARBON DIOXIDE (test code = 85708303) 30 mmol/L 20-32 N CALCIUM (test code = 92987181) 7.7 mg/dL 8.6-10.3 L PROTEIN, TOTAL (test code = 23712996) 5.4 g/dL 6.1-8.1 L ALBUMIN (test code = 47292586) 2.7 g/dL 3.6-5.1 L GLOBULIN (test code = 80338262) 2.7 g/dL (calc) 1.9-3.7 N ALBUMIN/GLOBULIN RATIO (test code = 94998975) 1.0 (calc) 1.0-2.5 N BILIRUBIN, TOTAL (test code = 70044455) 1.2 mg/dL 0.2-1.2 N ALKALINE PHOSPHATASE (test code = 72109087) 72 U/L 35-144 N AST (test code = 41722427) 15 U/L 10-35 N ALT (test code = 96617804) 12 U/L 9-46 N [facility] WITH [id number] 16:28:00* Test Item Value Reference Range Interpretation Comme [facility] INR (test code = 90959267) 1.2 H Reference Range 0.9-1.1Moderate-intensity Warfarin Therapy 2.0-3.0Higher-intensity Warfarin Therapy 3.0-4.0 PT (test code = 69088473) 12.4 sec 9.0-11.5 H For additional information, please refer [email or web address]/faq/LKK607 (This link is being provided for informational/educational purposes only.) [facility] (DIFF/PLT)2023-08-27 16:28:00* Test Item Value Reference Range Interpretation Comme nts WHITE BLOOD CELL COUNT (test code = 33246956) 9.6 Thousand/uL 3.8-10.8 N RED BLOOD CELL COUNT (test code = 53539748) 2.67 Million/uL 4.20-5.80 L HEMOGLOBIN (test code = 43425414) 8.3 g/dL 13.2-17.1 L HEMATOCRIT (test code = 44578597) 25.3 % 38.5-50.0 L MCV (test code = 83341122) 94.8 fL 80.0-100.0 N MCH (test code = 05918282) 31.1 pg 27.0-33.0 N MCHC (test code = 69810264) 32.8 g/dL 32.0-36.0 N RDW (test code = 58685419) 20.1 % 11.0-15.0 H PLATELET COUNT (test code = 61428732) 363 Thousand/uL 140-400 N MPV (test code = 02511512) 9.8 fL 7.5-12.5 N ABSOLUTE NEUTROPHILS (test code = 08851028) 7354 cells/uL 3341-6978 N ABSOLUTE LYMPHOCYTES (test code = 17435071) 1056 cells/uL 850-3900 N ABSOLUTE MONOCYTES (test cod e = 81493770) 912 cells/uL 200-950 N ABSOLUTE EOSINOPHILS (test code = 35336579) 240 cells/uL 15-500 N ABSOLUTE BASOPHILS (test cod e = 33799461) 38 cells/uL 0-200 N NEUTROPHILS (test code = 14096652) 76.6 % N LYMPHOCYTES (test code = 59592757) 11.0 % N MONOCYTES (test code = 88578381) 9.5 % N EOSINOPHILS (test code = 38661997) 2.5 % N BASOPHILS (test code = 28186307) 0.4 % N [facility]US[facility]PREHENS[facility] METABOLIC [id number] 06:05:00* Test Item Value Reference Range Interpretation [...] ALKP) 72.0 U/L 46-116 N CBC W/AUTO [id number] 05:40:00* Test Item Value Reference Range Interpretation [...] 0.05 x10 3/uL 0.0-0.20 N BASIC METABOLIC [id number] 06:22:00* Test Item Value Reference Range Interpretation [...] CA) 8.2 mg/dL 8.7-10.4 L CBC W/AUTO [id number] 05:54:00* Test Item Value Reference Range Interpretation [...] = BA#) 0.04 x10 3/uL 0.0-0.20 N [id number] 20:51:00* Test Item Value Reference Range Interpretation Comme nts GLUBED (test code = GLUBED) 85 MG/DL 70-105 N BASIC METABOLIC [id number] 03:54:00* Test Item Value Reference Range Interpretation [...] code = CA) 8.0 mg/dL 8.7-10.4 L [id number] 03:54:00* Test Item Value Reference Range Interpretation Comme nts PHOSPHOROUS (test code = PHOS) 3.9 mg/dL 2.4-5.1 N [id number] 03:54:00* Test Item Value Reference Range Interpretation Comme nts MAGNESIUM (test code = MAG) 2.0 mg/dL 1.6-2.6 N CBC W/AUTO [id number] 03:43:00* Test Item Value Reference Range Interpretation [...] 0.04 x10 3/uL 0.0-0.20 N BASIC METABOLIC [id number] 04:44:00* Test Item Value Reference Range Interpretation [...] code = CA) 7.8 mg/dL 8.7-10.4 L [id number] 04:44:00* Test Item Value Reference Range Interpretation Comme nts PHOSPHOROUS (test code = PHOS) 3.4 mg/dL 2.4-5.1 N [id number] 04:44:00* Test Item Value Reference Range Interpretation Comme nts MAGNESIUM (test code = MAG) 1.9 mg/dL 1.6-2.6 N CBC W/AUTO [id number] 04:37:00* Test Item Value Reference Range Interpretation [...] 0.05 x10 3/uL 0.0-0.20 N BASIC METABOLIC [id number] 04:18:00* Test Item Value Reference Range Interpretation [...] 7.8 mg/dL 8.7-10.4 L ADD ON TEST? [id number] 04:18:00* Test Item Value Reference Range Interpretation Comme nts PHOSPHOROUS (test code = PHOS) 2.9 mg/dL 2.4-5.1 N ADD ON TEST? [id number] 04:18:00* Test Item Value Reference Range Interpretation Comme nts MAGNESIUM (test code = MAG) 1.9 mg/dL 1.6-2.6 N ADD ON TEST? YesCBC W/O [id number] 03:57:00* Test Item Value Reference Range Interpretation [...] 189 x10 3/uL 150-440 N BASIC METABOLIC [id number] 17:27:00* Test Item Value Reference Range Interpretation [...] code = CA) 8.1 mg/dL 8.7-10.4 L [id number] 17:27:00* Test Item Value Reference Range Interpretation Comme nts PHOSPHOROUS (test code = PHOS) 2.8 mg/dL 2.4-5.1 N [id number] 17:27:00* Test Item Value Reference Range Interpretation Comme nts MAGNESIUM (test code = MAG) 2.0 mg/dL 1.6-2.6 N [id number] 05:57:00* Test Item Value Reference Range Interpretation Comme nts PHOSPHOROUS (test code = PHOS) 2.6 mg/dL 2.4-5.1 N [id number] 05:57:00* Test Item Value Reference Range Interpretation Comme nts MAGNESIUM (test code = MAG) 2.1 mg/dL 1.6-2.6 N BASIC METABOLIC [id number] 05:57:00* Test Item Value Reference Range Interpretation [...] CA) 8.2 mg/dL 8.7-10.4 L CBC W/AUTO [id number] 05:39:00* Test Item Value Reference Range Interpretation [...] 0.03 x10 3/uL 0.0-0.20 N BASIC METABOLIC [id number] 16:39:00* Test Item Value Reference Range Interpretation [...] code = CA) 7.8 mg/dL 8.7-10.4 L [id number] 16:39:00* Test Item Value Reference Range Interpretation Comme nts PHOSPHOROUS (test code = PHOS) 2.4 mg/dL 2.4-5.1 N [id number] 16:39:00* Test Item Value Reference Range Interpretation Comme nts MAGNESIUM (test code = MAG) 2.0 mg/dL 1.6-2.6 N BASIC METABOLIC [id number] 04:19:00* Test Item Value Reference Range Interpretation [...] code = CA) 8.2 mg/dL 8.7-10.4 L [id number] 04:19:00* Test Item Value Reference Range Interpretation Comme nts PHOSPHOROUS (test code = PHOS) 2.8 mg/dL 2.4-5.1 N [id number] 04:19:00* Test Item Value Reference Range Interpretation Comme nts MAGNESIUM (test code = MAG) 2.2 mg/dL 1.6-2.6 N CBC W/AUTO [id number] 04:04:00* Test Item Value Reference Range Interpretation [...] 0.01 x10 3/uL 0.0-0.20 N BASIC METABOLIC [id number] 14:06:00* Test Item Value Reference Range Interpretation [...] code = CA) 8.1 mg/dL 8.7-10.4 L [id number] 14:06:00* Test Item Value Reference Range Interpretation Comme nts MAGNESIUM (test code = MAG) 2.1 mg/dL 1.6-2.6 N BASIC METABOLIC [id number] 03:57:00* Test Item Value Reference Range Interpretation [...] code = CA) 7.8 mg/dL 8.7-10.4 L [id number] 03:57:00* Test Item Value Reference Range Interpretation Comme nts MAGNESIUM (test code = MAG) 1.9 mg/dL 1.6-2.6 N CBC W/AUTO [id number] 03:33:00* Test Item Value Reference Range Interpretation [...] 0.02 x10 3/uL 0.0-0.20 N BASIC METABOLIC [id number] 19:42:00* Test Item Value Reference Range Interpretation [...] code = CA) 6.2 mg/dL 8.7-10.4 L [id number] 19:42:00* Test Item Value Reference Range Interpretation Comme nts MAGNESIUM (test code = MAG) 1.6 mg/dL 1.6-2.6 N BASIC METABOLIC [id number] 14:11:00* Test Item Value Reference Range Interpretation [...] code = CA) 8.6 mg/dL 8.7-10.4 L [id number] 14:11:00* Test Item Value Reference Range Interpretation Comme nts PHOSPHOROUS (test code = PHOS) 4.2 mg/dL 2.4-5.1 N [id number] 14:11:00* Test Item Value Reference Range Interpretation Comme nts MAGNESIUM (test code = MAG) 2.1 mg/dL 1.6-2.6 N [id number] 09:06:00* Test Item Value Reference Range Interpretation Comme nts PHOSPHOROUS (test code = PHOS) 4.3 mg/dL 2.4-5.1 N Comment: PLEASE USE SPECIMEN IN LABBASIC METABOLIC [id number] 03:47:00* Test Item Value Reference Range Interpretation [...] CA) 9.1 mg/dL 8.7-10.4 N LIVER FUNCTION [id number] 03:47:00* Test Item Value Reference Range Interpretation [...] ode = ALKP) 49.0 U/L 46-116 N [id number] 03:47:00* Test Item Value Reference Range Interpretation Comme nts MAGNESIUM (test code = MAG) 2.0 mg/dL 1.6-2.6 N PROTHROMBIN [id number] 03:44:00* Test Item Value Reference Range Interpretation [...] systemic anticoagulation for high-risk conditions THROMBOPLASTIN TIME [id number] 03:44:00* Test Item Value Reference Range Interpretation Comme nts THROMBOPLASTIN TIME PARTIAL (test code = PTT) 26.2 secs 23.8-34.8 N INTERPRETATIVE D CELENA: Therapeutic range: Unfractionated Heparin: 60-90 seconds Argatroban: 60-90 seconds [id number] 03:44:00* Test Item Value Reference Range Interpretation Comme nts FIBRINOGEN (test code = FIB) 396 mg/dL 200-400 N LACTIC [id number] 03:42:00* Test Item Value Reference Range Interpretation Comme nts LACTIC ACID (test code = LACT) 2.70 mmol/L 0.5-2.0 HH Critical Value r eported toFirst Name:JESSICA Guerrero Name:KIRIT READ BACK AND VERIFIEDby [id number], on 08/14/23, @ 0342. CBC W/AUTO [id number] 03:31:00* Test Item Value Reference Range Interpretation [...] 0.01 x10 3/uL 0.0-0.20 N BLOOD GAS W/[id number] 01:47:00* Test Item Value Reference Range Interpretation [...] TCO2A) 25.1 MMOL/L 24-30 N BLOOD GAS W/[id number] 23:41:00* Test Item Value Reference Range Interpretation [...] = TCO2A) 26.5 MMOL/L 24-30 N LACTIC [id number] 21:35:00* Test Item Value Reference Range Interpretation Comme nts LACTIC ACID (test code = LACT) 5.00 mmol/L 0.5-2.0 HH Critical Value r eported toFirst Name:JESSICA Last Name:JHONATANMYLAYANI READ BACK AND VERIFIEDby [id number], on 08/13/23, @ 9400. BASIC METABOLIC [id number] 21:35:00* Test Item Value Reference Range Interpretation [...] code = CA) 9.7 mg/dL 8.7-10.4 N [id number] 21:35:00* Test Item Value Reference Range Interpretation Comme [facility] PHOSPHOROUS (test code = PHOS) 3.8 mg/dL 2.4-5.1 N [id number] 21:35:00* Test Item Value Reference Range Interpretation Comme [facility] MAGNESIUM (test code = MAG) 2.1 mg/dL 1.6-2.6 N PROTHROMBIN [id number] 21:17:00* Test Item Value Reference Range Interpretation Comme [facility] PROTHROMBIN TIME PATIENT (test code = [...] systemic anticoagulation for high-risk conditions THROMBOPLASTIN TIME [id number] 21:17:00* Test Item Value Reference Range Interpretation Comme [facility] THROMBOPLASTIN TIME PARTIAL (test code = PTT) 28.2 secs 23.8-34.8 N INTERPRETATIVE D CELENA: Therapeutic range: Unfractionated Heparin: 60-90 seconds Argatroban: 60-90 seconds [id number] 21:17:00* Test Item Value Reference Range Interpretation Comme [facility] FIBRINOGEN (test code = FIB) 317 mg/dL 200-400 N CBC W/AUTO [id number] 21:11:00* Test Item Value Reference Range Interpretation [...] 0.01 x10 3/uL 0.0-0.20 N BLOOD GAS W/[id number] 21:08:00* Test Item Value Reference Range Interpretation [...] TCO2A) 24.9 MMOL/L 24-30 N BLOOD GAS W/[id number] 17:52:00* Test Item Value Reference Range Interpretation [...] TCO2A) 20.9 MMOL/L 24-30 L BLOOD GAS W/[id number] 17:41:00* Test Item Value Reference Range Interpretation [...] = TCO2A) 20.6 MMOL/L 24-30 L PROTHROMBIN [id number] 17:12:00* Test Item Value Reference Range Interpretation [...] systemic anticoagulation for high-risk conditions THROMBOPLASTIN TIME [id number] 17:12:00* Test Item Value Reference Range Interpretation Comme nts THROMBOPLASTIN TIME PARTIAL (test code = PTT) 26.6 secs 23.8-34.8 N INTERPRETATIVE D CELENA: Therapeutic range: Unfractionated Heparin: 60-90 seconds Argatroban: 60-90 seconds LACTIC [id number] 16:32:00* Test Item Value Reference Range Interpretation Comme nts LACTIC ACID (test code = LACT) 4.80 mmol/L 0.5-2.0 HH Critical Value r eported toFirst Name:SREEDHAR Last Name:HOLLEY READ BACK AND VERIFIEDby [id number], on 08/13/23, @ 5760. BASIC METABOLIC [id number] 16:31:00* Test Item Value Reference Range Interpretation [...] code = CA) 9.2 mg/dL 8.7-10.4 N [id number] 16:31:00* Test Item Value Reference Range Interpretation Comme nts PHOSPHOROUS (test code = PHOS) 4.7 mg/dL 2.4-5.1 [id number] 16:31:00* Test Item Value Reference Range Interpretation Comme nts MAGNESIUM (test code = MAG) 2.2 mg/dL 1.6-2.6 N CBC W/AUTO [id number] 16:29:00* Test Item Value Reference Range Interpretation [...] BA#) 0.02 x10 3/uL 0.0-0.20 N PROTHROMBIN [id number] 15:28:00* Test Item Value Reference Range Interpretation Comme [facility] PROTHROMBIN TIME PATIENT (test code = [...] systemic anticoagulation for high-risk conditions THROMBOPLASTIN TIME [id number] 15:28:00* Test Item Value Reference Range Interpretation [facility] PARTIAL (test code = PTT) 32.5 secs 23.8-34.8 INTERPRETATIVE D CELENA: Therapeutic range: Unfractionated Heparin: 60-90 seconds Argatroban: 60-90 seconds [id number] 15:28:00* Test Item Value Reference Range Interpretation [facility] FIBRINOGEN (test code = FIB) 159 mg/dL 200-400 L CBC W/AUTO [id number] 15:12:00* Test Item Value Reference Range Interpretation Comme [facility] WHITE BLOOD CELL (test code = [...] 0.04 x10 3/uL 0.0-0.20 N COAGULATION TIME [id number] 15:10:00* Test Item Value Reference Range Interpretation Comme nts COAGULATION TIME ACTIVATED ( test code = ACT) 136 SECONDS 74-137 N COAGULATION TIME [id number] 13:39:00* Test Item Value Reference Range Interpretation Comme nts COAGULATION TIME ACTIVATED ( test code = ACT) 131 SECONDS 74-137 N COAGULATION TIME [id number] 12:39:00* Test Item Value Reference Range Interpretation Comme nts COAGULATION TIME ACTIVATED ( test code = ACT) 428 SECONDS 74-137 H COAGULATION TIME [id number] 12:10:00* Test Item Value Reference Range Interpretation Comme nts COAGULATION TIME ACTIVATED ( test code = ACT) 515 SECONDS 74-137 H COAGULATION TIME [id number] 11:37:00* Test Item Value Reference Range Interpretation Comme nts COAGULATION TIME ACTIVATED ( test code = ACT) 466 SECONDS 74-137 H COAGULATION TIME [id number] 11:02:00* Test Item Value Reference Range Interpretation Comme nts COAGULATION TIME ACTIVATED ( test code = ACT) 450 SECONDS 74-137 H PROTHROMBIN [id number] 06:32:00* Test Item Value Reference Range Interpretation [...] systemic anticoagulation for high-risk conditions THROMBOPLASTIN TIME [id number] 06:32:00* Test Item Value Reference Range Interpretation Comme nts THROMBOPLASTIN TIME PARTIAL (test code = PTT) 25.6 secs 23.8-34.8 N INTERPRETATIVE D CELENA: Therapeutic range: Unfractionated Heparin: 60-90 seconds Argatroban: 60-90 seconds Novel Coronavirus [id number] 20:47:00* Test Item Value Reference Range Interpretation Comme nts Novel Coronavirus 2019 Inhouse (test code = [id number]) Negative Negative Positive resul ts are indicative of the presence nnRZQJ-WlG-9 RNA, clinical correlation with patient historyand other [...] the qualitative detection of nucleic acids from acxAKHI-JvP-1 virus and diagnosis of SARS-CoV-2 virusinfection. It is an Emergency Use Authorization (EUA) testauthorized by the U.S. FDA. BASIC METABOLIC [id number] 19:19:00* Test Item Value Reference Range Interpretation [...] code = CA) 8.4 mg/dL 8.7-10.4 L [id number] 19:19:00* Test Item Value Reference Range Interpretation Comme nts PHOSPHOROUS (test code = PHOS) 3.2 mg/dL 2.4-5.1 N [id number] 19:19:00* Test Item Value Reference Range Interpretation Comme nts MAGNESIUM (test code = MAG) 1.7 mg/dL 1.6-2.6 N CBC W/AUTO [id number] 18:51:00* Test Item Value Reference Range Interpretation [...] 0.04 x10 3/uL 0.0-0.20 N COMPREHENSIVE METABOLIC [id number] 16:49:00* Test Item Value Reference Range Interpretation [...] ALKP) 57.0 U/L 46-116 N CBC W/AUTO [id number] 16:30:00* Test Item Value Reference Range Interpretation [...] x10 3/uL 0.0-0.20 N COVID 19 INHOUSE [id number] 17:12:00* Test Item Value Reference Range Interpretation Comme nts COVID 19 INHOUSE AG (test code = [id number]) NEGATIVE NEGATIVE Negative results , from patients [...] clinical signs and symptomsconsistent with COVID-19. PROTHROMBIN [id number] 08:09:00* Test Item Value Reference Range Interpretation [...] Infarction (to prevent recurrent infarct). COMPREHENSIVE METABOLIC [id number] 08:09:00* Test Item Value Reference Range Interpretation [...] = LDL) 66 MG/DL 0-129 N <100 YVFXIXM81 0 - 129 NEAR OPTIMAL/ABOVE JLLPKBT579 - 159 HMFSPXLVSV981 - 189 HIGH>OR= 190 VERY HIGHNOTE THAT GUIDELINES ARE PROVIDED BY NATIONAL CHOLESTEROLEDUCATION PROGRAM ADULT TREATMENT PANEL III LDL/HDL (test code = LDL/HDL) 1.04 Ratio See_Comment L [Automated tutoria [employer] ge] The system which generated this result transmitted reference range: 1.48-3.22 Avg. The reference range was not used to interpret this result as normal/abnormal. [id number] 08:09:00* Test Item Value Reference Range Interpretation Comme nts MAGNESIUM (test code = MAG) 2.0 MG/DL 1.8-2.4 N CBC W/AUTO [id number] 07:52:00* Test Item Value Reference Range Interpretation [...] code = NRBC#) 0.0 K/mm3 0.00-0.01 N [id number] 02:58:00* Test Item Value Reference Range Interpretation Comme nts TROPONIN-I (test code = TROPI) 0.962 NG/ML 0.012-0.033 CALLED TO ROCIO Dyson& READBACK ON 08/06/23 AT 0258 BY Shannan Hargrove BASIC METABOLIC [id number] 02:57:00* Test Item Value Reference Range Interpretation [...] = CA) 8.8 MG/DL 8.4-10.2 N PROTHROMBIN [id number] 02:22:00* Test Item Value Reference Range Interpretation [...] recurrent systemic embolism. 3.0 - 4.5 PTT [id number] 02:22:00* Test Item Value Reference Range Interpretation Comme nts PTT ACTIVATED (test code = APTT) 27.8 SECONDS 27.2-37.9 CBC W/AUTO [id number] 02:08:00* Test Item Value Reference Range Interpretation [...] K/mm3 0.0-0.1 N - CT HEAD/BRAIN W/O [id number] 20:00:00 [facility] 1935 Sex: M Patient Name: CHARLIE HART Unit No: [id number] EXAMS: CPT CODE: [id number] CT HEAD/BRAINW/O CONT 93576 LOCATION: Q15 HISTORY: 88-year-old male presents with [...] of the mA and/or kV according to patient size, and/or utilization of iterative reconstruction technique. CONTRAST: None FINDINGS: There is noevidence of acute mass effect, midline shift, hemorrhage, or herniation. Senescent changes are demonstrated along with the prominent ventricular system with periventricular matter gliosis, in keeping with the central volume loss. There is no CT evidence of an acute infarct. The intracranial arterial vasculature is heavily calcified, particularly in the basilar system and vertebral arteries whichare diffusely calcified and tortuous. The skeleton is intact. The right maxillary antrum is opacified, but the other paranasal sinuses are clear. The soft tissues are unremarkable. IMPRESSION: Senescent changes are demonstrated in this patient's brain as outlined above. No acute findings are seen. Right maxillary sinusitis is present. The vertebrobasilar anatomy is heavily calcified and tortuous. at 1999 Reported and signed by: Aquiles Wilson M.D. CC: Technologist: Irvin Osullivan, RT(R)(CT); H CTDI: DLP: Trnscrpt: 08/05/2023 (1999) G[facility]hRLA2 [facility] NAME: CHARLIE HART [id number] [address] PHYS: [place] [address] : 1935 AGE: 88 SEX: M LOC: STEVE Mitchell PHONE #: [phone] EXAM DATE: 08/05/2023 STATUS: ADM IN FAX #: [phone] RAD #: D/C DT PAGE 1 Signed Report Patient Name: CHARLIE HART Unit No: [id number] EXAMS: CPT CODE: [id number] HEAD/BRAIN W/O CONT 67459 (Continued) Orig Print D/T: S: 08/05/2023 (2002) [facility] NAME: CHARLIE WHITLEY [id number] [address] PHYS: [place] [address] : 1935 AGE: 88 SEX: M LOC: STEVE 2 PHONE #: [phone] EXAM DATE: 08/05/2023 STATUS: ADM IN FAX #: [phone] RAD #: D/C DT PAGE 2 Signed ReportLIPOPROTEIN LDL [id number] 13:15:00* Test Item Value Reference Range Interpretation Comme [facility] LIPOPROTEIN LDL DIRECT (test code = LDLDIR) 65 mg/dL 100-129 L Refe rence Interval: mg/dL mmol/L --Optimal <100 <2.6Near/above optimal 100-129 2.6-3.3Borderline High 130-159 3.4-4.1High 160-189 4.1-4.9Very High >=190 >=4.9========= This LDL result is a direct measurement.========= [id number] 13:15:00* Test Item Value Reference Range Interpretation Comme [facility] TROPONIN-I (test code = TROPI) 1.510 NG/ML 0.012-0.033 HH CALLED TO Ada NICOLE& READBACK ON 08/05/23 AT 1112 BY Karen Sweeney [id number] 13:01:00* Test Item Value Reference Range Interpretation Comme [facility] TROPONIN-I (test code = TROPI) 1.280 NG/ML 0.012-0.033 HH CALLED TO Ada NICOLE& READBACK ON 08/05/23 AT 1301 BY Karen Sweeney PROTHROMBIN [id number] 11:06:00* Test Item Value Reference Range Interpretation Comme [facility] PROTHROMBIN TIME PATIENT (test code = [...] recurrent systemic embolism. 3.0 - 4.5 PTT [id number] 11:06:00* Test Item Value Reference Range Interpretation Comme nts PTT ACTIVATED (test code = APTT) > 400.0 SECONDS 27.2-37.9 CALLED TO MORE Tyler R& READBACK ON 08/05/23 AT 1106 BY Zackery Wagner COMPREHENSIVE METABOLIC [id number] 10:55:00* Test Item Value Reference Range Interpretation [...] 0818 BY Z.LAB.CAREASON: HEMOLYZEDNOTIFIED PATIENT CARE STAFF: [id number] 10:55:00* Test Item Value Reference Range Interpretation Comme nts PHOSPHOROUS (test code = PHOS) 3.8 MG/DL 2.5-4.5 N RECOLLECTION NEEDED ON 08/05/23 AT 0818 BY Z.LAB.CAREASON: HEMOLYZEDNOTIFIED PATIENT CARE STAFF: [id number] 10:55:00* Test Item Value Reference Range Interpretation Comme nts MAGNESIUM (test code = MAG) 1.8 MG/DL 1.6-2.3 N RECOLLECTION NEEDED ON 08/05/23 AT 0818 BY Z.LAB.CAREASON: HEMOLYZEDNOTIFIED PATIENT CARE STAFF: KIESHAR- XR CHEST [id number] 09:58:00 [facility] 1935 Sex: M Patient Name: CHARLIE HART Unit No: [id number] EXAMS: CPT CODE: [id number] XR CHEST 1V 80981 EXAMINATION: - XR CHEST 1V. LOCATION: B2. [...] Technologist: RICH MERA Transcrpt Date/Tm/Trnsp: 08/05/2023 (0958) [email or web address] Orig Print D/T: S: 08/05/2023 (1001) [facility] NAME: CHARLIE HART [id number] PHYS: [address] [place] [address] : 1935 AGE: 88 SEX: M LOC: STEVE 2 PHONE #: [phone] EXAM DATE: 08/05/2023 STATUS: ADM IN FAX #: [phone] RADIOLOGY NO: PAGE 1 Signed ReportPLATELET [id number] 09:54:00* Test Item Value Reference Range Interpretation Comme nts PLATELET COUNT (test code = PLT) 154 K/MM3 129-368 N CBC W/AUTO [id number] 07:40:00* Test Item Value Reference Range Interpretation [...] NRBC#) 0.00 K/mm3 0.0-0.1 N GLUCOSE BEDSIDE [id number] 11:56:00* Test Item Value Reference Range Interpretation Comme nts GLUCOSE BEDSIDE TESTING (pastora t code = GLUBED) 100 MG/DL 60-99 H BASIC METABOLIC [id number] 08:16:00* Test Item Value Reference Range Interpretation [...] 12/16/21 AT 0638 BY Vivek Eli CHEST [id number] 08:16:00 [facility] : 1935 Sex: M Patient Name: CHARLIE HART Unit No: [id number] EXAMS: CPT CODE: [id number] XR CHEST 1V 65522 Portable AP chest, 1 view Location Code: [...] Jamari Up, RT(R) Transcrpt Date/Tm/Trnsp: 12/16/2021 (815) [email or web address] Orig Print D/T: S: 12/16/2021 (0819) [facility] NAME: CHARLIE HART [id number] [address] PHYS: [place] [address] : 1935 AGE: 86 SEX: M LOC: [id number] PHONE #: [phone] EXAM DATE: 12/16/2021 STATUS: ADM IN FAX #: [phone] RADIOLOGY NO: PAGE 1 Signed ReportGLUCOSE BEDSIDE [id number] 08:11:00* Test Item Value Reference Range Interpretation Comme nts GLUCOSE BEDSIDE TESTING (pastora t code = GLUBED) 99 MG/DL 60-99 N CBC W/AUTO [id number] 08:08:00* Test Item Value Reference Range Interpretation [...] 12/16/21 AT 0639 BY Julia EliGLUCOSE BEDSIDE [id number] 20:24:00* Test Item Value Reference Range Interpretation Comme nts GLUCOSE BEDSIDE TESTING (pastora t code = GLUBED) 99 MG/DL 60-99 N GLUCOSE BEDSIDE [id number] 16:02:00* Test Item Value Reference Range Interpretation Comme nts GLUCOSE BEDSIDE TESTING (pastora t code = GLUBED) 117 MG/DL 60-99 H - XR CHEST [id number] 12:07:00 [facility] : 1935 Sex: M Patient Name: CHARLIE HART Unit No: [id number] EXAMS: CPT CODE: [id number] XR CHEST 1V 13328 HISTORY: Status post ICD Location: C3 COMPARISON:None FINDINGS: There is mild cardiomegaly. Aortic calcifications are present. Vascularity is borderline prominent. Left subclavian pacemaker is noted with tips overlying the RA and RV. No pneumothorax. IMPRESSION: 1. Cardiomegaly with mild vascular congestion. at 1207 Reported and signed by: Aquiles Powell MD CC: Deyvi Celis MD Technologist: Marla Castaneda, BSRS, RT(R) Transcrpt Date/Tm/Trnsp: 12/15/2021 (1207) [email or web address] [facility] NAME: CHARLIE HART [address] PHYS: [place] [address] : 1935 AGE: 86 SEX: M : Z.[id number] A PHONE #: [phone] EXAM DATE: 12/15/2021 STATUS: ADM IN FAX #: [phone] RADIOLOGY NO: PAGE 1 Signed ReportGLUCOSE BEDSIDE [id number] 07:29:00* Test Item Value Reference Range Interpretation Comme nts GLUCOSE BEDSIDE TESTING (pastora t code = GLUBED) 79 MG/DL 60-99 N PROTHROMBIN [id number] 06:17:00* Test Item Value Reference Range Interpretation Comme [facility] PROTHROMBIN TIME PATIENT (test code = [...] recurrent systemic embolism. 3.0 - 4.5 PTT [id number] 06:17:00* Test Item Value Reference Range Interpretation Comme [facility] PTT ACTIVATED (test code = APTT) 25.2 SECONDS 26.2-35.4 L BASIC METABOLIC [id number] 06:16:00* Test Item Value Reference Range Interpretation [...] CA) 8.7 MG/DL 8.4-10.2 N CBC W/AUTO [id number] 06:05:00* Test Item Value Reference Range Interpretation [...] K/mm3 0.0-0.1 N COVID 19 Asymptomatic IH [id number] 03:54:00* Test Item Value Reference Range Interpretation [...] virus (antigen) in the sample." BASIC METABOLIC [id number] 07:26:00* Test Item Value Reference Range Interpretation [...] code = CA) 7.8 MG/DL 8.4-10.2 L [id number]-[id number] 07:26:00* Test Item Value Reference Range Interpretation Comme nts TROPONIN-I (test code = TROPI) < 0.012 NG/ML 0.012-0.033 L CBC W/AUTO [id number] 06:53:00* Test Item Value Reference Range Interpretation [...] = NRBC#) 0.00 K/mm3 0.0-0.1 N DIFFERENTIAL [id number] 06:53:00* Test Item Value Reference Range Interpretation Comme nts RBC MORPHOLOGY REQUIRED (pastora t code = RBCM) PLATELET ESTIMATE (test code = PLTEST) ADEQUATE PLATELET MORPHOLOGY (test co de = PLTMORPH) NORMAL [id number]-[id number] 01:42:00* Test Item Value Reference Range Interpretation Comme nts TROPONIN-I (test code = TROPI) < 0.012 NG/ML 0.012-0.033 L THYROID STIMULATING [id number] 18:47:00* Test Item Value Reference Range Interpretation Comme nts THYROID STIMULATING HORMONE (test code = TSH) 1.310 MIU/L 0.465-4.68 N Please be aware that bias results for TSH may occur forpatient who are taking Biotin supplements. COMPREHENSIVE METABOLIC [id number] 17:48:00* Test Item Value Reference Range Interpretation [...] 56 UNITS/L 38-126 N NT PRO-BRAIN NATRIURETIC [id number] 17:48:00* Test Item Value Reference Range Interpretation Comme nts NT PRO-BRAIN NATRIURETIC PEP TI (test code = PROBNP) 728.0 pg/mL 0-450 H [id number]-[id number] 17:48:00* Test Item Value Reference Range Interpretation Comme nts TROPONIN-I (test code = TROPI) < 0.012 NG/ML 0.012-0.033 L CBC W/AUTO [id number] 17:19:00* Test Item Value Reference Range Interpretation [...] Notes Date/Time Note Provider Source 2023-08-26 11:41:00 [id number] DOCB9eMZ78Nb9DbEfVtxGiSiziTmL 15TGYEw9Kh/1ZeiyjfI6C4eW9kq9594-01-98G31:41:00 [facility] ([facility]) Cardiothoracic Surg. Prog NoteREPORT #: [id number] REPORT STATUS: Signed DATE: 08/26/23 TIME: 114 PATIENT: CHARLIE HART UNIT #: [id number] #: [id number] ROOM #: [facility] BED: A : 35 AGE: 88 SEX: M ATTEND: Tony Gautam MD ADM AUTHOR: Rosie Starr ATTENTION EDITS and/or ADDENDA must be made in Patient Keeper for this note. Edits and ammendments created in [facility] are not visible in Patient Keeper or the legal medical record (HPF). -- ASSESSMENT AND PLAN -- HOSPITAL COURSE TO DATE:08/09: [facility] @ [facility] by Dr. Celis + CAD. Transfer from [place] forconsideration of CABG.08/13: CABG x 3 (STANLEY-LAD, SVG-ramus, SVG-OM1) by Dr. Gil: Atrial lead extraction and new atrial lead placement by Dr Dilshad Strong08/19: RV lead revision and upgrade to BiV pacemaker by Dr. Strong08/20: Transfer to [facility]. GENERAL ASSESSMENT:Patient is an 88 year-old male with symptomatic multi-vessel coronary arterydisease. POD#13 CABG x 3 (STANLEY-LAD, SVG-ramus, SVG-OM1) by Dr. Powell on 08/13. No events overnight. Tolerating all targeted therapy. Incisions are healingwell. Appetite is adequate. No voiding issues - on lasix BID. Pain iswell-controlled. Acute debility - ambulating with PT. Will benefit considerablyfrom rehab. Patient has been accepted by [facility] in [place]. Pendingtransfer. Plan:- Cleared for discharge to [facility] today.- Continue all guideline directed therapy at discharge including Plavix,Eliquis, statin and beta lois.- Follow-up with Dr. Powell once discharged home. PLAN DISCUSSED WITH:Patient seen on AM rounds with Dr. Porat. -- SUBJECTIVE -- PATIENT NARATIVE:No events overnight. Patient resting in bed this morning. Ready to transitionto [facility]. -- OBJECTIVE -- VITALS (08/25 11:41 [...] MG PO DAILYIPRATROPIUM BROMIDE 0.5 MG NEB [id number] 20 MG PO QAMNITROGLYCERIN 0.4 MG SL [...] this note. Edits and ammendments created in [facility] are not visible in Patient Keeper or the legal medical record (HPF). [facility] #: [id number] OF REPORTPRProgress ojgq5571-18-61U28:41:00P.LJ-TLNC23758148-5384VWRh ailable for patient yfjmDPFTXAYNOWNGUJ4876-00-56Q47:09:37 [facility] 2023-08-26 10:10:00 [id number] pcQbtqm6vq0t8YYqoLlsASREnkAie LYnfoEDHOLQSZQ/yQlVlhUzurnR7194-03-93W58:10:00 [facility] ([facility]) Hospitalist D/C Summary REPORT #: [id number] REPORT STATUS: Signed DATE: 08/26/23 TIME: 1010 PATIENT: CHARLIE HART UNIT #: [id number] #: [id number] ROOM #: P.0418 BED: A : 35 AGE: 88 SEX: M ATTEND: Tony Gautam MD ADM AUTHOR: Tony Gautam MD ATTENTION EDITS and/or ADDENDA must be made in Patient Keeper for this note. Edits and ammendments created in [employer] are not visible in Patient Keeper or the legal medical record ([facility]). -- PROBLEMS/PROCEDURES -- ADMISSION DATE:08/09/23 ADMITTING DIAGNOSES: - Acute on chronic systolic (congestive) heart failure - Afib - Atherosclerosis of catawba coronary artery without angina pectoris,unspecified whether catawba or transplanted heart - Atrial fibrillation - [...] heart failure - Afib - Atherosclerosis of cata[place] coronary artery without angina pectoris,unspecified whether catawba or transplanted heart - Atrial fibrillation - [...] suggestive of angina. Hewas taken to the [place] emergency room on August 05, 2023 where he wasruled in for non-ST segment elevation myocardial infarction. He was started onheparin and transferred to [facility] where he was observed for a coupleof days and improved on medical therapy.Echocardiogram showed apical wall motion abnormalities with preserved leftventricular ejection fraction. As the patient was doing well on medicalmanagement, he was discharged from the other hospital without intervention. Hewas seen by his primary welder apprentice, Dr Deyvi Celis and admitted forselective coronary angiogram on August 09, 2023 to [facility].This showed multivessel coronary artery disease, LAD 90 to 99% lesion, leftcircumflex proximal 90%, 95% obtuse marginal lesion; Occluded proximal RCA.Left ventricular end-diastolic pressure 12; Left ventricular ejection umwkixxe30%, severe anteroapical hypokinesis. He has been transferred to [facility] for consideration of CABG by Dr. [...] and EP services for discharge to the [facility].Insurance has approved [facility] and I anticipate that he will be discharged 08/26. 08/26/2023: The patient is hemodynamically stable and [facility].He will follow-up with his [...] anteroapical hypokinesis.The patient is being admitted to [facility] for higher level of care.Optimized statin [...] Neb Soln (Atrovent Neb Soln) 0.5MG Neb AOF1PNbd/Al/Simeth Oral Liquid (Maalox Max Oral Liquid) 30ML PO Q6H PRNindigestion/heartburnMethocarbamol Tab (Robaxin Tab) 500MG PO TIDMetoprolol Succinate XL Tab (Toprol XL Tab) 12.5MG PO DAILYPreserVision AREDS 7,160 unit-113 mg-100 unit tablet (vitaminsA,C,M-tuwu-gumynv) 1 TAB PO DAILY for home medication [...] Parameters: Meds given [facility].Meds to be Given:(Enter [...] Monitoring: DailyAdditional instructions: Discharged by ambulance to [facility] rehab, [facility], on 08/26/2023. meds per med recAttending Physician: ROXANA:João Powell MDAttending physician follow up timeframe: 2 weeksAttending physician special instructions: post CABG follow upAdditional Discharge Routines: PCP Follow-Up Attending Follow-Up Rat Trapper Follow-Up Ordered by: Tony Gautam MD Aug [...] patient [facility] or call 911 should their [...] this note. Edits and ammendments created in [facility] are not visible in Patient Keeper or the legal medical record (HPF). [facility] #: [id number] OF REPORTDSDischarge pvziwac1614-30-12D22:10:00P.ZS-[id number] VAvailable for patient mbshNEWQZDAVTUTJAJ7688-89-06N22:19:11 [facility] 2023-08-26 09:10:00 [id number] /ZIqM2hXCAAIOGa0zBp7lewlNvHSi Fo0BDJ+jRwr3EFqn8dySdSQF5OW7155-37-57K26:10:00 [facility] ([facility]) Cardiology Progress Notes REPORT #: [id number] REPORT STATUS: Signed DATE: 08/26/23 TIME: 09 PATIENT: CHARLIE HART UNIT #: [id number] #: [id number] ROOM #: P.0418 BED: A : 35 AGE: 88 SEX: M ATTEND: Tony Gautam MD ADM AUTHOR: Annette Chow ATTENTION EDITS and/or ADDENDA must be made in Patient Keeper for this note. Edits and ammendments created in [employer] are not visible in Patient Keeper or [...] pain, suggestive of angina, and presented at [facility] emergency room on 08/05/22 for further evaluation and management. He wasruled in NSTEMI, started on heparin drip and transferred to [facility]. He wasobserved and pain resolved on medical therapy (per records). He was discharged.He was seen by cardiology services (Dr. Celis) as outpatient and underwentelective coronary angiogram on 08/09/22 at [facility] and showed multi-vesselcoronary artery disease, LAD (90 to 99% lesion),LCx proximal 90%, 95% obtusemarginal lesion, RCA (occluded proximal), LVEDP 12, LVEF 40%, severe anteroapical hypokinesis. He was transferred here to [facility] for considerationof CABG by Dr. [...] for placement, IPR vs. SNF, accepted at [facility]- Cleared by CV surgery to be discharged when accepted to [facility]. He willfollow-up with Dr. Powell and his welder apprentice- From cardiology standpoint the patient is stable [...] MG PO DAILYIPRATROPIUM BROMIDE 0.5 MG NEB [id number] 20 MG PO QAMNITROGLYCERIN 0.4 MG SL [...] this note. Edits and ammendments created in [facility] are not visible in Patient Keeper or the legal medical record (HPF). RPT #: [id number] OF REPORTPRProgress nyvk9252-38-25N61:10:00P.SC-KTYX42273316-1411WDIt ailable for patient nbsiKOSDQYSPTZGLSL9819-13-18N51:14:03 [facility] 2023-08-25 22:39:00 [id number] dfxo389qKv0tTU+FRiKBiUoO9IwBa SDD8dCGNJ8xYBKLFvkOs9PryNpA7643-33-43Q22:39:00 [facility] ([facility]) Med Order Sheet REPORT #: [id number] REPORT STATUS: Signed DATE: 08/25/23 TIME: 2238 PATIENT: CHARLIE HART UNIT #: [id number] #: [id number] ROOM #: P.0418 BED: A : 35 AGE: 88 SEX: M ATTEND: Tony Gautam MD ADM AUTHOR: Tony Gautam MD ATTENTION EDITS and/or ADDENDA must be made in Patient Keeper for this note. Edits and ammendments created in [facility] are not visible in Patient Keeper or the legal medical record (HPF). Discharge Medication Reconciliation DISCHARGE MEDICATION LISTNew: PreserVision AREDS 7,160 unit-113 mg-100 unit tablet (vitaminsA,C,B-lphz-rrcflc) Dose: 1 TAB PO DAILY for home [...] Soln (Atrovent Neb Soln) Dose: 0.5MG Neb YHS2QKmz/Al/Simeth Oral Liquid (Maalox Max Oral Liquid) Dose: [...] IV Q6H PRN nausea and vomiting at 5408ATTENTION EDITS and/or ADDENDA must be made in Patient Keeper for this note. Edits and ammendments created in [facility] are not visible in Patient Keeper or the legal medical record (HPF). [facility] #: [id number] OF REPORTCLClinical uegc8870-46-80O48:39:00P.YI-IKPM10796608-8999DFXz ailable for patient arvxWKZNUYOCJAEQUN3542-15-89X31:39:29 [facility] 2023-08-25 22:11:00 [id number] DwtC96jeyzOFmePSu3dU6/D5PBro/ Lh8a2UmMOc0SbvrZ048SYw+HdUx2443-59-99Z02:11:00 [facility] ([facility]) Hospitalist Progress Note REPORT #: [id number] REPORT STATUS: Signed DATE: 08/25/23 TIME: 2210 PATIENT: CHARLIE HART UNIT #: [id number] #: [id number] ROOM #: P.[facility]8 BED: A : 35 AGE: 88 SEX: M ATTEND: Tony Gautam MD ADM AUTHOR: Tnoy Gautam MD ATTENTION EDITS and/or ADDENDA must be made in Patient Keeper for this note. Edits and ammendments created in [employer] are not visible in Patient Keeper or [...] anteroapical hypokinesis.The patient is being admitted to [facility] for higher level of care.Optimized statin [...] and the patient will be discharged to [facility] on 08/26/2023. -- SUBJECTIVE -- HPI: [...] suggestive of angina. Hewas taken to the [place] emergency room on August 05, 2023 where he wasruled in for non-ST segment elevation myocardial infarction. He was started onheparin and transferred to [facility] where he was observed for a coupleof days and improved on medical therapy.Echocardiogram showed apical wall motion abnormalities with preserved leftventricular ejection fraction. As the patient was doing well on medicalmanagement, he was discharged from the other hospital without intervention. Hewas seen by his primary welder apprentice, Dr Deyvi Celis and admitted forselective coronary angiogram on August 09, 2023 to [facility].This showed multivessel coronary artery disease, LAD 90 to 99% lesion, leftcircumflex proximal 90%, 95% obtuse marginal lesion; Occluded proximal RCA.Left ventricular end-diastolic pressure 12; Left ventricular ejection liufayyu35%, severe anteroapical hypokinesis. He has been transferred to [facility] for consideration of CABG by Dr. [...] IPR.He was very functional prior to this hospitalization.[employer] has asked for peer to peer.Precedence suggests [...] and EP services for discharge to the [facility].Insurance has approved [facility] and I anticipate that he will [...] MG PO DAILYIPRATROPIUM BROMIDE 0.5 MG NEB [id number] 20 MG PO QAMNITROGLYCERIN 0.4 MG SL [...] this note. Edits and ammendments created in [employer] are not visible in Patient Keeper or the legal medical record (HPF). RPT #: [id number] OF REPORTPRProgress zggy1429-21-24V89:11:00P.WJ-HVRL16104460-2725LQNt ailable for patient wjbaPCSYYFWEQNELDW6638-35-47I55:15:58 [facility] 2023-08-25 11:21:00 [id number] 1BAc5OxVlKDz/TmS5EHSYUYYPTfvb YcThvjppJaupMOAGsPZeHQMwvXi4818-25-02U36:21:00 [facility] ([facility]) Cardiology Progress Notes REPORT #: [id number] REPORT STATUS: Signed DATE: 08/25/23 TIME: 112 PATIENT: CHARLIE HART UNIT #: [id number] #: [id number] ROOM #: P.0418 BED: A : 35 AGE: 88 SEX: M ATTEND: Tony Gautam MD ADM AUTHOR: Kaleigh Gonzalez ATTENTION EDITS and/or ADDENDA must be made in Patient Keeper for this note. Edits and ammendments created in [employer] are not visible in Patient Keeper or [...] week follow up Dilshad Strong, [facility] [place] ElectrophysiologistTexas Cardiac Arrhythmia Signed in PatientKeeper by [...] POC w/ Mr Hart is daughter Elizabeth (#[phone]) and available by phone- Educational materials/folder already [...] recurrent chest pain and angina, transferred from [place] ER08/05/23 for emergent bypass, [facility] multivessel CAD involving LAD (90-99% lesion), [...] MG PO DAILYIPRATROPIUM BROMIDE 0.5 MG NEB LFH8UBDABMMWYTW 20 MG PO QAMNITROGLYCERIN 0.4 MG SL [...] this note. Edits and ammendments created in [employer] [facility] are not visible in Patient Keeper or the legal medical record (HPF). [facility] #: [id number] OF REPORTPRProgress ahag1544-06-07S01:21:00P.MZ-[id number] ailable for patient kdqyIMOTHSTEXIJIDM6121-73-71V64:05:41 [facility] 2023-08-25 08:52:00 [id number] UCH3/R8PpIcJwP0kM3xUupXLW7DZU VknO5yCtKH97okGWwSw6Qplt6402614-57-93Z88:52:00 [facility] ([facility]) Cardiology Progress Notes REPORT #: [id number] REPORT STATUS: Signed DATE: 08/25/23 TIME: 851 PATIENT: CHARLIE HART UNIT #: [id number] #: [id number] ROOM #: P.0418 BED: A : 35 AGE: 88 SEX: M ATTEND: Tony Gautam MD ADM AUTHOR: Annette Chow ATTENTION EDITS and/or ADDENDA must be made in Patient Keeper for this note. Edits and ammendments created in [facility] are not visible in Patient Keeper or [...] pain, suggestive of angina, and presented at [facility] emergency room on 08/05/22 for further evaluation and management. He wasruled in NSTEMI, started on heparin drip and transferred to [facility]. He wasobserved and pain resolved on medical therapy (per records). He was discharged.He was seen by cardiology services (Dr. Celis) as outpatient and underwentelective coronary angiogram on 08/09/22 at [facility] and showed multi-vesselcoronary artery disease, LAD (90 to 99% lesion),LCx proximal 90%, 95% obtusemarginal lesion, RCA (occluded proximal), LVEDP 12, LVEF 40%, severe anteroapical hypokinesis. He was transferred here to [facility] for considerationof CABG by Dr. [...] He willfollow-up with Dr. Powell and his welder apprentice- From cardiology standpoint the patient is stable [...] source: Monitor I/Os (08/24 07:00 - 08/25 07:00):William -560Intake 540Output 1,100 -EXAM- OTHER: Constitutional: Well [...] MG PO DAILYIPRATROPIUM BROMIDE 0.5 MG NEB UKU0VVDKZQRGILW 20 MG PO QAMNITROGLYCERIN 0.4 MG SL [...] this note. Edits and ammendments created in [employer] are not visible in Patient Keeper or the legal medical record (HPF). [facility] #: [id number] OF REPORTPRProgress fucw9814-15-07F01:52:00P.MS-KEAN14859433-5533OJBj ailable for patient lvcaDYXDUOWJBFMKMJ9684-74-97U96:14:02 [facility] 2023-08-24 13:05:00 [id number] /R2HKy4vosqe1mcS8VckOYDo5K1pe xF60kJXicue1cU0b9+dYeSa6My82023-81-10F96:05:00 [facility] ([facility]) Hospitalist Progress Note REPORT #: [id number] REPORT STATUS: Signed DATE: 08/24/23 TIME: 1305 PATIENT: CHARLIE HART UNIT #: [id number] #: [id number] ROOM #: P.0418 BED: A : 35 AGE: 88 SEX: M ATTEND: Tony Gautam MD ADM AUTHOR: Tony Gautam MD ATTENTION EDITS and/or ADDENDA must be made in Patient Keeper for this note. Edits and ammendments created in [facility] are not visible in Patient Keeper or [...] anteroapical hypokinesis.The patient is being admitted to [facility] for higher level of care.Optimized statin [...] suggestive of angina. Hewas taken to the [place] emergency room on August 05, 2023 where he wasruled in for non-ST segment elevation myocardial infarction. He was started onheparin and transferred to [facility] where he was observed for a coupleof days and improved on medical therapy.Echocardiogram showed apical wall motion abnormalities with preserved leftventricular ejection fraction. As the patient was doing well on medicalmanagement, he was discharged from the other hospital without intervention. Hewas seen by his primary welder apprentice, Dr Deyvi Celis and admitted forselective coronary angiogram on August 09, 2023 to [facility].This showed multivessel coronary artery disease, LAD 90 to 99% lesion, leftcircumflex proximal 90%, 95% obtuse marginal lesion; Occluded proximal RCA.Left ventricular end-diastolic pressure 12; Left ventricular ejection znernhsc95%, severe anteroapical hypokinesis. He has been transferred to [facility] for consideration of CABG by Dr. [...] MG PO DAILYIPRATROPIUM BROMIDE 0.5 MG NEB MBH1JHMBTHLWPMU 20 MG PO QAMNITROGLYCERIN 0.4 MG SL [...] this note. Edits and ammendments created in [employer] are not visible in Patient Keeper or the legal medical record ([facility]). RPT #: [id number] OF REPORTPRProgress rdpc5633-23-22I46:05:00P.IU-[id number] ailable for patient dzemJUZGBGYMEGSBEU3669-21-82B85:06:51 [facility] 2023-08-24 09:15:00 [id number] TEpZlO5+RQfsuyoX+2BfU5W46nKf0 SWv80auTQWvt9u+qKMPAXz+CeSJ9767-16-59Z13:15:00 [facility] ([facility]) Cardiology Progress Notes REPORT #: [id number] REPORT STATUS: Signed DATE: 08/24/23 TIME: 914 PATIENT: CHARLIE HART UNIT #: [id number] #: [id number] ROOM #: P.0418 BED: A : 35 AGE: 88 SEX: M ATTEND: Tony Gautam MD ADM AUTHOR: Annette Chow ATTENTION EDITS and/or ADDENDA must be made in Patient Keeper for this note. Edits and ammendments created in [employer] are not visible in Patient Keeper or the legal medical record ([facility]). -- ASSESSMENT AND PLAN -- PROBLEMS: 1: Multiple vessel coronary artery diseaseA/P: The patient is an 88-year-old gentleman (patient of Dr. Deyvi Celis) hasa PMHx of hypertension, pulmonary hypertension, NICMP, HFrEF (EF 40 to 50%),hyperlipidemia, BPH, vitamin B12 deficiency, PPM placement (11/2021). Hedeveloped recurrent chest pain, suggestive of angina, and presented at [facility] emergency room on 08/05/22 for further evaluation and management. He wasruled in NSTEMI, started on heparin drip and transferred to [facility]. He wasobserved and pain resolved on medical therapy (per records). He was discharged.He was seen by cardiology services (Dr. Celis) as outpatient and underwentelective coronary angiogram on 08/09/22 at [facility] and showed multi-vesselcoronary artery disease, LAD (90 to 99% lesion),LCx proximal 90%, 95% obtusemarginal lesion, RCA (occluded proximal), LVEDP 12, LVEF 40%, severeanteroapical hypokinesis. He was transferred here to [facility] for considerationof CABG by Dr. [...] surgery to be discharged when accepted to [facility]- From cardiology standpoint the patient is [...] MG PO DAILYIPRATROPIUM BROMIDE 0.5 MG NEB [id number] 20 MG PO QAMNITROGLYCERIN 0.4 MG SL [...] this note. Edits and ammendments created in [employer] are not visible in Patient Keeper or the legal medical record (HPF). RPT #: [id number] OF REPORTPRProgress uyuf4334-59-04R27:15:00P.QQ-UYFP61249591-1484MWJo ailable for patient hbxiTYYKWWLUBVLDKQ4414-73-24E13:06:34 [facility] 2023-08-23 13:08:00 [id number] 12Ak+V0Psj8USYtepPprwgBGIabHh sMEtjFAYATnNjOVfBnELOwPrxh/3689-95-29J77:08:00 [facility] ([facility]) Hospitalist Progress Note REPORT #: [id number] REPORT STATUS: Signed DATE: 08/23/23 TIME: 1308 PATIENT: CHARLIE HART UNIT #: [id number] #: [id number] ROOM #: P.0418 BED: A : 35 AGE: 88 SEX: M ATTEND: Tony Gautam MD ADM AUTHOR: Tony Gautam MD ATTENTION EDITS and/or ADDENDA must be made in Patient Keeper for this note. Edits and ammendments created in [employer] are not visible in Patient Keeper or [...] anteroapical hypokinesis.The patient is being admitted to [facility] for higher level of care.Optimized statin [...] suggestive of angina. Hewas taken to the [place] emergency room on August 05, 2023 where he wasruled in for non-ST segment elevation myocardial infarction. He was started onheparin and transferred to [facility] where he was observed for a coupleof days and improved on medical therapy.Echocardiogram showed apical wall motion abnormalities with preserved leftventricular ejection fraction. As the patient was doing well on medicalmanagement, he was discharged from the other hospital without intervention. Hewas seen by his primary welder apprentice, Dr Deyvi Celis and admitted forselective coronary angiogram on August 09, 2023 to [facility].This showed multivessel coronary artery disease, LAD 90 to 99% lesion, leftcircumflex proximal 90%, 95% obtuse marginal lesion; Occluded proximal RCA.Left ventricular end-diastolic pressure 12; Left ventricular ejection afotpqfu24%, severe anteroapical hypokinesis. He has been transferred to [facility] for consideration of CABG by Dr. [...] IPR.He was very functional prior to this hospitalization.[employer] has asked for peer to peer.Precedence suggests [...] MG PO DAILYIPRATROPIUM BROMIDE 0.5 MG NEB RRO4ASHNMWAFRUH 20 MG PO QAMNITROGLYCERIN 0.4 MG SL [...] this note. Edits and ammendments created in [facility] are not visible in Patient Keeper or the legal medical record (HPF). RPT #: [id number] OF REPORTPRProgress dlyk1893-42-05A66:08:00P.ON-[id number] ailable for patient zrahIQNZASILJPBCIW1443-33-59U02:12:44 [facility] 2023-08-23 08:59:00 [id number]/ZJZgZ QLBv1uAfOpxB3XyfBeAJK15FR0pnN +/qSYL5aYwCvd6uMK7PLV9/TUYu1581-30-84H54:59:00 [facility] ([facility]) Cardiology Progress Notes REPORT #: [id number] REPORT STATUS: Signed DATE: 08/23/23 TIME: 858 PATIENT: CHARLIE HART UNIT #: [id number] #: [id number] ROOM #: P.0418 BED: A : 35 AGE: 88 SEX: M ATTEND: Tony Gautam MD ADM AUTHOR: Annette Chow ATTENTION EDITS and/or ADDENDA must be made in Patient Keeper for this note. Edits and ammendments created in [employer] are not visible in Patient Keeper or the legal medical record ([facility]). -- ASSESSMENT AND PLAN -- PROBLEMS: 1: Multiple vessel coronary artery diseaseA/P: The patient is an 88-year-old gentleman (patient of Dr. Deyvi Celis) hasa PMHx of hypertension, pulmonary hypertension, NICMP, HFrEF (EF 40 to 50%),hyperlipidemia, BPH, vitamin B12 deficiency, PPM placement (11/2021). Hedeveloped recurrent chest pain, suggestive of angina, and presented at [facility] emergency room on 08/05/22 for further evaluation and management. He wasruled in NSTEMI, started on heparin drip and transferred to [facility]. He wasobserved and pain resolved on medical therapy (per records). He was discharged.He was seen by cardiology services (Dr. Celis) as outpatient and underwentelective coronary angiogram on 08/09/22 at [facility] and showed multi-vesselcoronary artery disease, LAD (90 to 99% lesion),LCx proximal 90%, 95% obtusemarginal lesion, RCA (occluded proximal), LVEDP 12, LVEF 40%, severeanteroapical hypokinesis. He was transferred here to [facility] for considerationof CABG by Dr. [...] MG PO DAILYIPRATROPIUM BROMIDE 0.5 MG NEB TVW6LLBWHUAPCEK 20 MG PO QAMNITROGLYCERIN 0.4 MG SL [...] this note. Edits and ammendments created in [employer] are not visible in Patient Keeper or the legal medical record (HPF). RPT #: [id number] OF REPORTPRProgress onfw7632-70-92P93:59:00P.GP-[id number] ailable for patient lamdBIOKNXZXNYBXIP5818-21-12B31:07:06 [facility] 2023-08-22 15:36:00 [id number] UvWJVbbUg5kHrE8soLhNKqiHkTrFZ jEHOOCzK7jXac8/Nsgc6a9x1IWN2594-69-84B52:36:00 [facility] ([facility]) Hospitalist Progress Note REPORT #: [id number] REPORT STATUS: Signed DATE: 08/22/23 TIME: 153 PATIENT: CHARLIE HART UNIT #: [id number] #: [id number] ROOM #: P.0418 BED: A : 35 AGE: 88 SEX: M ATTEND: Tony Gautam MD ADM AUTHOR: Tony Gautam MD ATTENTION EDITS and/or ADDENDA must be made in Patient Keeper for this note. Edits and ammendments created in [employer] are not visible in Patient Keeper or [...] anteroapical hypokinesis.The patient is being admitted to [facility] for higher level of care.Optimized statin [...] suggestive of angina. Hewas taken to the [place] emergency room on August 05, 2023 where he wasruled in for non-ST segment elevation myocardial infarction. He was started onheparin and transferred to [facility] where he was observed for a coupleof days and improved on medical therapy.Echocardiogram showed apical wall motion abnormalities with preserved leftventricular ejection fraction. As the patient was doing well on medicalmanagement, he was discharged from the other hospital without intervention. Hewas seen by his primary welder apprentice, Dr Deyvi Celis and admitted forselective coronary angiogram on August 09, 2023 to [facility].This showed multivessel coronary artery disease, LAD 90 to 99% lesion, leftcircumflex proximal 90%, 95% obtuse marginal lesion; Occluded proximal RCA.Left ventricular end-diastolic pressure 12; Left ventricular ejection prpwughh50%, severe anteroapical hypokinesis. He has been transferred to [facility] for consideration of CABG by Dr. [...] very functional prior to this hospitalization. Insurance company has asked for peer to peer.Precedence [...] MG PO DAILYIPRATROPIUM BROMIDE 0.5 MG NEB TDE1AFGKGUQQKJT 20 MG PO QAMNITROGLYCERIN 0.4 MG SL [...] this note. Edits and ammendments created in [employer] are not visible in Patient Keeper or the legal medical record (HPF). [facility] #: [id number] OF REPORTPRProgress gxhj8342-50-42M92:36:00P.HO-[id number] ailable for patient mzfdJHZIKIDAMIREDY3480-39-27N14:43:02 [facility] 2023-08-22 08:44:00 [id number] CqPzghjLdG/+DqHxAedLD3VZ9sik4 +1D2oZPKHIsor2IwweiovkG6b808495-26-86M94:44:00 [facility] ([facility]) Cardiology Progress Notes REPORT #: [id number] REPORT STATUS: Signed DATE: 08/22/23 TIME: 843 PATIENT: CHARLIE HART UNIT #: [id number] #: [id number] ROOM #: P.0418 BED: A : 35 AGE: 88 SEX: M ATTEND: Tony Gautam MD ADM AUTHOR: Annette Chow ATTENTION EDITS and/or ADDENDA must be made in Patient Keeper for this note. Edits and ammendments created in [employer] are not visible in Patient Keeper or [...] pain, suggestive of angina, and presented at [facility] emergency room on 08/05/22 for further evaluation and management. He wasruled in NSTEMI, started on heparin drip and transferred to [facility]. He wasobserved and pain resolved on medical therapy (per records). He was discharged.He was seen by cardiology services (Dr. Celis) as outpatient and underwentelective coronary angiogram on 08/09/22 at [facility] and showed multi-vesselcoronary artery disease, LAD (90 to 99% lesion),LCx proximal 90%, 95% obtusemarginal lesion, RCA (occluded proximal), LVEDP 12, LVEF 40%, severeanteroapical hypokinesis. He was transferred here to [facility] for consideration of CABG by [...] MG PO DAILYIPRATROPIUM BROMIDE 0.5 MG NEB FRG0JQEHBXPWYWJ 20 MG PO QAMNITROGLYCERIN 0.4 MG SL [...] CHOW on 08/22/23 at 16:35 Cosigned by GNIO DENG MD on 09/06/23 at 14:03 at 1403 at 1403ATTENTION EDITS and/or ADDENDA must be made in Patient Keeper for this note. Edits and ammendments created in [employer] are not visible in Patient Keeper or the legal medical record (HPF). RPT #: [id number] OF REPORTPRProgress axvz9490-01-36L74:44:00P.LN-[id number] ailable for patient rsthAHLQVXKTANMGTO6700-82-40M36:14:02 [facility] 2023-08-21 10:28:00 [id number] Kx/8ZYCHZHGUDjn0RZvde+So3Kw7U tq2PUcWyTeMpN8HscAwGgSfeTAQ4803-28-50U30:28:00 [facility] ([facility]) Hospitalist Progress Note REPORT #: [id number] REPORT STATUS: Signed DATE: 08/21/23 TIME: 1028 PATIENT: CHARLIE HART UNIT #: [id number] #: [id number] ROOM #: P.0418 BED: A : 35 AGE: 88 SEX: M ATTEND: Tony Gautam MD ADM AUTHOR: Tony Gautam MD ATTENTION EDITS and/or ADDENDA must be made in Patient Keeper for this note. Edits and ammendments created in [employer] are not visible in Patient Keeper or [...] anteroapical hypokinesis.The patient is being admitted to [facility] for higher level of care.Given his [...] suggestive of angina. Hewas taken to the [place] emergency room on August 05, 2023 where he wasruled in for non-ST segment elevation myocardial infarction. He was started onheparin and transferred to [facility] where he was observed for a coupleof days and improved on medical therapy.Echocardiogram showed apical wall motion abnormalities with preserved leftventricular ejection fraction. As the patient was doing well on medicalmanagement, he was discharged from the other hospital without intervention. Hewas seen by his primary welder apprentice, Dr Deyvi Celis and admitted forselective coronary angiogram on August 09, 2023 to [facility].This showed multivessel coronary artery disease, LAD 90 to 99% lesion, leftcircumflex proximal 90%, 95% obtuse marginal lesion; Occluded proximal RCA.Left ventricular end-diastolic pressure 12; Left ventricular ejection ylrqcnho07%, severe anteroapical hypokinesis. He has been transferred to [facility] for consideration of CABG by Dr. [...] MG PO DAILYIPRATROPIUM BROMIDE 0.5 MG NEB LAS0RJXKOACGFRXYCH 0.4 MG SL Q5M PRNONDANSETRON HCL/PF 4 [...] this note. Edits and ammendments created in [facility] are not visible in Patient Keeper or the legal medical record (HPF). RPT #: [id number] OF REPORTPRProgress vnew0032-13-68V73:28:00P.RE-[id number] ailable for patient kedaQCPMEHFYLSRMRB3526-67-64L38:37:13 [facility] 2023-08-21 07:54:00 [id number]/b0C4 oKfnKVInM/03d8dGL+8p2MGteNKAW YaDNXld160f5+wyxSUxqSWwxzSO3736-69-43A77:54:00 [facility] ([facility]) Cardiology Progress Notes REPORT #: [id number] REPORT STATUS: Signed DATE: 08/21/23 TIME: 0754 PATIENT: CHARLIE HART UNIT #: [id number] #: [id number] ROOM #: P.0418 BED: A : 35 AGE: 88 SEX: M ATTEND: Tony Gautam MD ADM AUTHOR: Nj Oliva DO CF1 ATTENTION EDITS and/or ADDENDA must be made in Patient Keeper for this note. Edits and ammendments created in [facility] are not visible in Patient Keeper or [...] was transferred to the CVICU from the [facility] 08/13 after CABG x 3 (STANLEY-LAD, rSVG [...] per CT surgery team 2: AfibA/P: - NPP5BA3-Wldw >3- History of Atrial fibrillation s/p PPM.- [...] suggestive ofangina. He was taken to the [place] emergency room on August 05, 2023where he was ruled in for non-ST segment elevation myocardial infarction. Hewas started on heparin and transferred to [facility] where he wasobserved for a couple of days and improved on medical therapy. Echocardiogramshowed apical wall motion abnormalities with preserved left ventricularejection fraction. As the patient was doing well on medical management, he wasdischarged from the other hospital without intervention. He was seen by hisprimary welder apprentice, Dr Deyvi Celis and admitted for selective coronaryangiogram on August 09, 2023 to [facility]. This showed multivessel coronaryartery disease, LAD 90 to 99% lesion, left circumflex proximal 90%, 95% obtusemarginal lesion; Occluded proximal RCA. Left ventricular end-diastolic ; Left ventricular ejection fraction 40%, severe anteroapical hypokinesis. Hehas been transferred to [facility] for consideration of CABG by Dr.Eyal [...] MG PO DAILYIPRATROPIUM BROMIDE 0.5 MG NEB ZWO8IBZGTJDBTBKMVC 0.4 MG SL Q5M PRNONDANSETRON HCL/PF 4 MG IV Q6H PRNKETOTIFEN FUMARATE 1 DROP EACH EYE BID PRNACETAMINOPHEN 650 MG PO Q4H PRNAMIODARONE HCL 200 MG PO BIDDEXTROSE 50%-WATER 25 ML IV ASDIR PRNFERROUS SULFATE 325 MG PO DAILYFUROSEMIDE 40 MG PO QAM LABS GLU BED (08/20/23 20:41)GLUBED 85 Signed in PatientKeeper by Nj Oliva on 08/21/23 at 12:14 Cosigned by GINO DENG MD on 09/06/23 at 14:01 at 1401 at 1401ATTENTION EDITS and/or ADDENDA must be made in Patient Keeper for this note. Edits and ammendments created in [facility] are not visible in Patient Keeper or the legal medical record (HPF). RPT #: [id number] OF REPORTPRProgress doml6337-37-32S82:54:00P.EF-[id number] ailable for patient udtoGOWEBXWMCJGIRX1767-63-79T01:13:59 [facility] 2023-08-20 15:13:00 [id number] fhA5EwigpaU0+TfkM6TkCzjQEIIPa 4R/AhTwqOxuOH3kmShYRVaJEZ6c2927-18-89H45:13:00 [facility] ([facility]) Cardiology Progress Notes REPORT #: [id number] REPORT STATUS: Signed DATE: 08/20/23 TIME: 151 PATIENT: CHARLIE HART UNIT #: [id number] #: [id number] ROOM #: P.0418 BED: A : 35 AGE: 88 SEX: M ATTEND: Tony Gautam MD ADM AUTHOR: Trina Marquez MD 1 ATTENTION EDITS and/or ADDENDA must be made in Patient Keeper for this note. Edits and ammendments created in [employer] are not visible in Patient Keeper or [...] MG PO DAILYIPRATROPIUM BROMIDE 0.5 MG NEB LFG7HMWEYESGJBPOTB 0.4 MG SL Q5M PRNONDANSETRON HCL/PF 4 [...] 0.04 Signed in PatientKeeper by TRINA MARQUEZ MD on 08/22/23 at 15:07 Cosigned by GINO DENG MD on 09/06/23 at 14:00 at 1400 at 1400ATTENTION EDITS and/or ADDENDA must be made in Patient Keeper for this note. Edits and ammendments created in [facility] are not visible in Patient Keeper or the legal medical record (HPF). RPT #: [id number] OF REPORTPRProgress fbxd2894-60-25G20:13:00P.BM-[id number] ailable for patient ovbsVLSUAREQLIEEUT4213-18-03I71:13:57 [facility] 2023-08-20 13:57:00 [id number] peUcbpLJE4NKnCs/I8hAmvdEoLxtt W7MK/DKjrbzcWhbiVSR3wgmCYsE6737-66-88E47:57:00 [facility] ([facility]) Intensive Care Progress Note REPORT #: [id number] REPORT STATUS: Signed DATE: 08/20/23 TIME: 1357 PATIENT: CHARLIE HART UNIT #: [id number] #: [id number] ROOM #: P.0311 BED: 1 : 35 AGE: 88 SEX: M ATTEND: Tony Gautam MD ADM AUTHOR: Chikis Burdick MD ATTENTION EDITS and/or ADDENDA must be made in Patient Keeper for this note. Edits and ammendments created in [facility] are not visible in Patient Keeper or the legal medical record (HPF). -- ASSESSMENT AND PLAN -- HOSPITAL COURSE TO DATE:Mr. Hart is an 88 year-old male with past medical history of hypertension,hyperlipidemia, coronary artery disease, carotid disease, presence of permanentpacemaker (2021), pulmonary hypertension, and ischemic cardiomyopathy withprevious ejection fraction 40-50% who [facility] (STANLEY-LAD, rSVG [...] daughterHas Advanced Care Guidelines with daughter as MPOKendra OK to transfer to [facility]. Transition of [...] IV ASDIR PRNIPRATROPIUM BROMIDE 0.5 MG NEB WNV0ChcaWSSrsq HCL 0.1 MG PO Q8H PRNNITROGLYCERIN 0.4 [...] other members of the care team ADDITIONAL DETAIL:[id number] Signed in PatientKeeper by Chikis Burdick MD on 08/20/23 at 14:07 at 1407ATTENTION EDITS and/or ADDENDA must be made in Patient Keeper for this note. Edits and ammendments created in [employer] are not visible in Patient Keeper or the legal medical record (HPF). RPT #: [id number] OF REPORTPRProgress xnyw1810-23-83H02:57:00P.SZ-AZXO76915391-4902KGWv ailable for patient nhnhURNLATZXQVUZPB5626-91-37N64:08:17 [facility] 2023-08-20 11:41:00 [id number] osGKU+Xdv7NMoynsvjdZfQx4tldb7 MFUbcW1NxbpS5lIRvGrxEPfoysn0064-28-98R66:41:67955 6-[address] [address]KH[address]ZNO NAME: CHARLIE HART ADMIT DATE: 08/09/23ACCOUNT NO: [id number] ROOM NO: P.0418 AGE: 88 REPORT TYPE: eELECTROCARDIOGRAM SEX: M ADMITTING PHYSICIAN: Tony Gautam MD ATTENDING PHYSICIAN: Tony Gautam MD Order:[id number] Reason : EVALU Test Date/Time Stamp:FriAug 20 2023 11:41:49Blood Pressure : / mmHGVent. Rate : 101 BPM Atrial Rate : 101 BPM P-R Int : 120 ms QRS Dur : 128 ms QT Int : 440 ms P-R-T Axes : 001 -06 196 degrees QTc Int : 570 ms Atrial-sensed ventricular-paced rhythmAbnormal ECG Confirmed by JEMAL OHARA ([id number]) on 08/22/2023 9:18:25 AM Referred By: Tony Gautam Confirmed by:JEMAL OHARA at 0918 PATIENT NAME: CHARLIE HART .[id number] AVAvailable for patient majhGBYLAGTVGFGSAB0192-73-23C75:18:43 [facility] 2023-08-20 10:19:00 [id number] WykVe6QYEjUGUJMvU/IO/R5MTV3ZV LCQUyE5ENNAL66e+5lmN9Z1JQPh9832-16-41W61:19:00 [facility] ([facility]) Hospitalist Progress Note REPORT #: [id number] REPORT STATUS: Signed DATE: 08/20/23 TIME: 1019 PATIENT: CHARLIE HART UNIT #: [id number] #: [id number] ROOM #: [facility] BED: A : 35 AGE: 88 SEX: M ATTEND: Tony Gautam MD ADM AUTHOR: Tony Gautam MD ATTENTION EDITS and/or ADDENDA must be made in Patient Keeper for this note. Edits and ammendments created in [facility] are not visible in Patient Keeper or [...] anteroapical hypokinesis.The patient is being admitted to [facility] for higher level of care.Given his [...] suggestive of angina. Hewas taken to the [place] emergency room on August 05, 2023 where he wasruled in for non-ST segment elevation myocardial infarction. He was started onheparin and transferred to [facility] where he was observed for a coupleof days and improved on medical therapy.Echocardiogram showed apical wall motion abnormalities with preserved leftventricular ejection fraction. As the patient was doing well on medicalmanagement, he was discharged from the other hospital without intervention. Hewas seen by his primary welder apprentice, Dr Deyvi Celis and admitted forselective coronary angiogram on August 09, 2023 to [facility].This showed multivessel coronary artery disease, LAD 90 to 99% lesion, leftcircumflex proximal 90%, 95% obtuse marginal lesion; Occluded proximal RCA.Left ventricular end-diastolic pressure 12; Left ventricular ejection igrnijpl23%, severe anteroapical hypokinesis. He has been transferred to [facility] for consideration of CABG by Dr. [...] IV ASDIR PRNIPRATROPIUM BROMIDE 0.5 MG NEB FTA0WzlhJHEeih HCL 0.1 MG PO Q8H PRNNITROGLYCERIN 0.4 [...] this note. Edits and ammendments created in [facility] are not visible in Patient Keeper or the legal medical record (HPF). RPT #: [id number] OF REPORTPRProgress mgoc8009-79-47U06:19:00P.PZ-KTZK93829259-7206UHJz ailable for patient wmhjFWAUFRXMMWLTZQ5365-26-97X92:04:23 [facility] 2023-08-20 09:56:00 [id number]+K3LUo aCxAUrBzNcR84frh9WIprZuF/S+Ub e0F1IKrKWxjzH1hcaU23wFJc8y/2693-53-45R57:56:00 [facility] ([facility]) Cardiology Progress Notes REPORT #: [id number] REPORT STATUS: Signed DATE: 08/20/23 TIME: 955 PATIENT: CHARLIE HART UNIT #: [id number] #: [id number] ROOM #: P.0418 BED: A : 35 AGE: 88 SEX: M ATTEND: Tony Gautam MD [facility] AUTHOR: Kaleigh Gonzalez ATTENTION EDITS and/or ADDENDA must be made in Patient Keeper for this note. Edits and ammendments created in [employer] are not visible in Patient Keeper or [...] RA, RV lead revision with upgrade to RESEARCH NEUROPSYCHOLOGIST Dilshad Strong, MDCardiac ElectrophysiologistTexas Cardiac Arrhythmia Signed [...] POC w/ Mr Hart is daughter Elizabeth (#[phone]) and available by phone- Educational materials/folder already [...] recurrent chest pain and angina, transferred from [place] ER08/05/23 for emergent bypass, [facility] multivessel CAD involving LAD (90-99% lesion), [...] IV ASDIR PRNIPRATROPIUM BROMIDE 0.5 MG NEB GGG9ZqdnOQXvth HCL 0.1 MG PO Q8H PRNNITROGLYCERIN 0.4 [...] this note. Edits and ammendments created in [facility] are not visible in Patient Keeper or the legal medical record (HPF). RPT #: [id number] OF REPORTPRProgress mqpn1671-08-33A98:56:00P.HI-SAUO06563445-2180GWJp ailable for patient oxgbSTUTVIOEMZJXNO2802-91-86N10:56:20 [facility] 2023-08-20 09:10:00 UJ7411999534pkH7Oj3B 9cqlmcJ5qzJ0lQoRZkENZz2JNqyQW ENd/CncjY87ylkCBZYRCHxvePej5281-36-91P80:10:00 [facility] ([facility]) Progress Note REPORT #: [id number] REPORT STATUS: Signed DATE: 08/20/23 TIME: 909 PATIENT: CHARLIE HART UNIT #: [id number] #: [id number] ROOM #: P.0311 BED: 1 : 35 AGE: 88 SEX: M ATTEND: Tony Gautam MD ADM AUTHOR: Nile Fuentes MD ATTENTION EDITS and/or ADDENDA must be made in Patient Keeper for this note. Edits and ammendments created in [facility] are not visible in Patient Keeper or [...] ASDIR PRN IPRATROPIUM BROMIDE 0.5 MG NEB LIF2NgzgJMClsu HCL 0.1 MG PO Q8H PRNNITROGLYCERIN 0.4 [...] this note. Edits and ammendments created in [facility] are not visible in Patient Keeper or the legal medical record (HPF). RPT #: [id number] OF REPORTPRProgress zuvv7289-88-47U60:10:00P.RX-UIRZ62620809-7956DPJb ailable for patient lcmeAFFZKTFHHCVBHK9554-58-79L43:12:56 [facility] 2023-08-19 22:54:00 [id number] K6NIfbOzrhIAIic3x5pppHoZ33GRw aWNM2Kx1aurIvjj3jcoZDBJucbq3446-53-67U69:54:00 [facility] ([facility]) Cardiology Progress Notes REPORT #: [id number] REPORT STATUS: Signed DATE: 08/19/23 TIME: 2253 PATIENT: CHARLIE HART UNIT #: [id number] #: [id number] ROOM #: P.0418 BED: A : 35 AGE: 88 SEX: M ATTEND: Tony Gautam MD ADM AUTHOR: Trina Marquez MD CF1 ATTENTION EDITS and/or ADDENDA must be made in Patient Keeper for this note. Edits and ammendments created in [facility] are not visible in Patient Keeper or [...] IV ASDIR PRNIPRATROPIUM BROMIDE 0.5 MG NEB PJH6PdzkKONito HCL 0.1 MG PO Q8H PRNNITROGLYCERIN 0.4 [...] this note. Edits and ammendments created in [facility] are not visible in Patient Keeper or the legal medical record (HPF). RPT #: [id number] OF REPORTPRProgress vrdy5335-25-63B94:54:00P.FG-JSPC98408350-3880DLAo ailable for patient kuguASRYDRFSSOBCVZ0105-86-92Z82:13:57 [facility] 2023-08-19 19:00:00 [id number]/WHvn dnJ6DkEH4Uc5MfjWbOeL9hByC/uJh R8WwNnZ87u8SDot9hS8c5GDRWqT7152-87-86R33:00:00 THIS REPORT HAS BEEN APPENDED [facility] ([facility]) Operative Report REPORT #: [id number] REPORT STATUS: Signed DATE: 08/19/23 TIME: 1900 PATIENT: CHARLIE HART UNIT #: [id number] #: [id number] ROOM #: P.0311 BED: 1 : 35 AGE: 88 SEX: M ATTEND: Tony Gautam MD ADM AUTHOR: Dilshad Strong MD ATTENTION EDITS and/or ADDENDA must be made in Patient Keeper for this note. Edits and ammendments created in [facility] are not visible in Patient Keeper or the legal medical record (HPF). -- OPERATION -- SURGERY START DATE/TIME:2023-08-19 19:00 PRE-OPERATIVE DIAGNOSIS:See Description POST-OPERATIVE DIAGNOSIS:See Description NAME OF PROCEDURE:See Description SURGEON:Dilshad Strong MD FOREST FIRE FIGHTER(S):See Description ANESTHESIA:See Description ESTIMATED BLOOD LOSS:10 ml's FINDINGS:See Description SPECIMEN(S) REMOVED AND/OR ALTERED:See Description COMPLICATION(S):See Description -- DESCRIPTION -- DESCRIPTION OF TECHNIQUE/PROCEDURE:Lead Extraction, Biventricular Pacemaker Upgrade Procedure Note Naphthol Soaping Machine Operator: Dilshad Strong MD Fellow: [None][facility] Referring Physician: MD Ish Date of Procedure: 08/19/23 Brief Clinical History: This is an 88yo man with a history of HFrEF, completeheart block presenting for implantation of a biventricular pacemaker. Procedure Performed:RV Lead RemovalUpgrade to BiV from dual chamber PPM (70355, 16408) The procedure was performed utilizing moderate sedation [...] to the inferior vena cava. A single 7-Greenlandic peel-away sheath was advanced over the wire. The coronary sinus wascannulated, and a venogram was performed with contrast using an 7 yemeni swancatheter in the coronary sinus. A [posterior [...] 2 ADDENDUM 1: 08/19/232048 PTKEEPERSedation Time: 60 gcumntz1wf versed/50mcg fentanyl at 2048 ATTENTION EDITS and/or ADDENDA must be made in Patient Keeper for this note. Edits and ammendments created in [employer] are not visible in Patient Keeper or the legal medical record (HPF). RPT #: [id number] OF REPORTOPOperative ktdpbk6014-70-15V27:00:00P.UA-[id number] Available for patient ruxjJFNXRELXHRMNKW9041-93-03I90:49:11 [facility] 2023-08-19 18:52:00 [id number] FzoGqPaMqH/DbvoSAoTrF3kiZOxJ3 yawraiQXkFYVigFR8uRo5zAPNRW5499-44-66K84:52:00 [facility] ([facility]) Hospitalist Progress Note REPORT #: [id number] REPORT STATUS: Signed DATE: 08/19/23 TIME: 1851 PATIENT: CHARLIE HART UNIT #: [id number] #: [id number] ROOM #: P0311 BED: 1 : 35 AGE: 88 SEX: M ATTEND: Tony Gautam MD ADM AUTHOR: Tony Gautam MD ATTENTION EDITS and/or ADDENDA must be made in Patient Keeper for this note. Edits and ammendments created in [employer] are not visible in Patient Keeper or [...] anteroapical hypokinesis.The patient is being admitted to [facility] for higher level of care.Given his [...] suggestive of angina. Hewas taken to the [place] emergency room on August 05, 2023 where he wasruled in for non-ST segment elevation myocardial infarction. He was started onheparin and transferred to [facility] where he was observed for a coupleof days and improved on medical therapy.Echocardiogram showed apical wall motion abnormalities with preserved leftventricular ejection fraction. As the patient was doing well on medicalmanagement, he was discharged from the other hospital without intervention. Hewas seen by his primary welder apprentice, Dr Deyvi Celis and admitted forselective coronary angiogram on August 09, 2023 to [facility].This showed multivessel coronary artery disease, LAD 90 to 99% lesion, leftcircumflex proximal 90%, 95% obtuse marginal lesion; Occluded proximal RCA.Left ventricular end-diastolic pressure 12; Left ventricular ejection qhdiwivk34%, severe anteroapical hypokinesis. He has been transferred to [facility] for consideration of CABG by Dr. [...] IV ASDIR PRNIPRATROPIUM BROMIDE 0.5 MG NEB HSQ8JzkvCRXfpc HCL 0.1 MG PO Q8H PRNNITROGLYCERIN 0.4 [...] this note. Edits and ammendments created in [employer] are not visible in Patient Keeper or the legal medical record (HPF). RPT #: [id number] OF REPORTPRProgress haxg9450-10-72P44:52:00P.QU-IWBF54950741-8874SGRg ailable for patient cauqLZHKIQMZPQPADT3766-66-28Q58:41:42 [facility] 2023-08-19 14:36:00 [id number] bvv6iNlNJrQ9WQIdeMzkD5oGCBG2m y99ZqFdblyG+X9Ou1uHy1YN9cvv5956-55-70Z25:36:00 [facility] ([facility]) Intensive Care Progress Note REPORT #: [id number] REPORT STATUS: Signed DATE: 08/19/23 TIME: 1435 PATIENT: CHARLIE HART UNIT #: [id number] #: [id number] ROOM #: P.0311 BED: 1 : 35 AGE: 88 SEX: M ATTEND: Tony Gautam MD ADM AUTHOR: Chikis Burdick MD ATTENTION EDITS and/or ADDENDA must be made in Patient Keeper for this note. Edits and ammendments created in [employer] are not visible in Patient Keeper or the legal medical record (HPF). -- ASSESSMENT AND PLAN -- HOSPITAL COURSE TO DATE:Mr. Hart is an 88 year-old male with past medical history of hypertension,hyperlipidemia, coronary artery disease, carotid disease, presence of permanentpacemaker (2021), pulmonary hypertension, and ischemic cardiomyopathy withprevious ejection fraction 40-50% who was transferred to the CVICU from the [facility] 08/13 after CABG x 3 (incl. STANLEY-LAD) [...] IV ASDIR PRNIPRATROPIUM BROMIDE 0.5 MG NEB OCT1FfyyJPVech HCL 0.1 MG PO Q8H PRNNITROGLYCERIN 0.4 [...] this note. Edits and ammendments created in [employer] are not visible in Patient Keeper or the legal medical record (HPF). RPT #: [id number] OF REPORTPRProgress zqsc3515-55-93R42:36:00P.WQ-BKNZ63123872-8165SSHt ailable for patient qofkPAZOJVMZIEXLQC2815-57-07D54:35:46 [facility] 2023-08-19 10:54:00 [id number] 0tC19PlrQYpXcAGq11EJzbELHCBZy ccv4RZnB7c1Dm4Vd8UyerfhNqqq9356-03-81D22:54:00 [facility] ([facility]) Cardiology Progress Notes REPORT #: [id number] REPORT STATUS: Signed DATE: 08/19/23 TIME: 1054 PATIENT: CHARLIE HART UNIT #: [id number] #: [id number] ROOM #: P.0418 BED: A : 35 AGE: 88 SEX: M ATTEND: Tony Gautam MD ADM AUTHOR: Kaleigh Gonzalez ATTENTION EDITS and/or ADDENDA must be made in Patient Keeper for this note. Edits and ammendments created in [employer] are not visible in Patient Keeper or [...] Dr Celis), LBBB and QRS >120 ms- will need RV lead revision and upgrade to BiV pacemaker, discussed theclinical indications, risks and benefits, realistic expectations and outcomes- Anticipating BiV upgrade today - Dr Strong- NPO status- Consents ordered- discussed POC w/ Mr Hart, and daughter Elizabeth (#[phone]) via phone bothagreeable and wish to pursue [...] recurrent chest pain and angina, transferred from [place] ER08/05/23 for emergent bypass, [facility] multivessel CAD involving LAD (90-99% lesion), [...] 84 08/19/23 05:00 97 08/19/23 04:45 97 01/23/24 04:30 97 -- ATTESTATION -- TIME SPENT [...] this note. Edits and ammendments created in [employer] are not visible in Patient Keeper or the legal medical record (HPF). [facility] #: [id number] OF REPORTPRProgress efry8676-52-79N92:54:00P.ZM-WKQJ00900823-0752PVMn ailable for patient mffhKYNEAQVDBZHNGZ8755-69-91A08:21:19 [facility] 2023-08-19 10:09:00 [id number] 1nTcBq6LZhWD9NEAQJx/La1jkQzm4 +lAKW0BBjr5yDlHteq0IHfBWLkg9461-97-61K48:09:00 [facility] ([facility]) Progress Note REPORT #: [id number] REPORT STATUS: Signed DATE: 08/19/23 TIME: 1009 PATIENT: CHARLIE HART UNIT #: [id number] #: [id number] ROOM #: P.0311 BED: 1 : 35 AGE: 88 SEX: M ATTEND: Tony Gautam MD ADM AUTHOR: Nile Fuentes MD ATTENTION EDITS and/or ADDENDA must be made in Patient Keeper for this note. Edits and ammendments created in [employer] are not visible in Patient Keeper or [...] this note. Edits and ammendments created in [employer] are not visible in Patient Keeper or the legal medical record (HPF). RPT #: [id number] OF REPORTPRProgress zfhh9669-40-80O12:09:00P.FT-NJZU11171687-8132XBQz ailable for patient usuxKWJZJJBPGMOFUZ0536-86-75O97:11:19 [facility] 2023-08-18 22:17:00 [id number] 1Jzh7iYWeVth9T/wfHKlSkAl2DF9e w3BpC/JyeAgzWaKilXkDuur8/IX9287-07-89K69:17:00 [facility] ([facility]) Hospitalist Progress Note REPORT #: [id number] REPORT STATUS: Signed DATE: 08/18/23 TIME: 2216 PATIENT: CHARLIE HART UNIT #: [id number] #: [id number] ROOM #: P.0311 BED: 1 : 35 AGE: 88 SEX: M ATTEND: Tony Gautam MD ADM AUTHOR: Toyn Gautam MD ATTENTION EDITS and/or ADDENDA must be made in Patient Keeper for this note. Edits and ammendments created in [employer] are not visible in Patient Keeper or [...] anteroapical hypokinesis.The patient is being admitted to [facility] for higher level of care.Given his [...] suggestive of angina. Hewas taken to the [place] emergency room on August 05, 2023 where he wasruled in for non-ST segment elevation myocardial infarction. He was started onheparin and transferred to [facility] where he was observed for a coupleof days and improved on medical therapy.Echocardiogram showed apical wall motion abnormalities with preserved leftventricular ejection fraction. As the patient was doing well on medicalmanagement, he was discharged from the other hospital without intervention. Hewas seen by his primary welder apprentice, Dr Deyvi Celis and admitted forselective coronary angiogram on August 09, 2023 to [facility].This showed multivessel coronary artery disease, LAD 90 to 99% lesion, leftcircumflex proximal 90%, 95% obtuse marginal lesion; Occluded proximal RCA.Left ventricular end-diastolic pressure 12; Left ventricular ejection %, severe anteroapical hypokinesis. He has been transferred to [facility] for consideration of CABG by Dr. [...] IV ASDIR PRNIPRATROPIUM BROMIDE 0.5 MG NEB VEZ7ErwfGECzvm HCL 0.1 MG PO Q8H PRNNITROGLYCERIN 0.4 [...] this note. Edits and ammendments created in [facility] are not visible in Patient Keeper or the legal medical record (HPF). RPT #: [id number] OF REPORTPRProgress ynbb3669-98-58W21:17:00P.KK-EUUR85235598-0778ZLYd ailable for patient toxhPRHMOEPYKUEMKP7301-20-36L30:21:16 [facility] 2023-08-18 20:42:00 [id number] +ClisfrTdyTno3MKJsRisp/Kristopher 5vzV3P68Ta34HkYPhPFESfRNFB33608-65-15A47:42:00 [facility] ([facility]) Operative Report REPORT #: [id number] REPORT STATUS: Signed DATE: 08/18/23 TIME: 2041 PATIENT: CHARLIE HART UNIT #: [id number] #: [id number] ROOM #: P.0311 BED: 1 : 35 AGE: 88 SEX: M ATTEND: Tony Gautam MD ADM AUTHOR: Dilshad Strong MD ATTENTION EDITS and/or ADDENDA must be made in Patient Keeper for this note. Edits and ammendments created in [employer] are not visible in Patient Keeper or the legal medical record ([facility]). -- OPERATION -- SURGERY START DATE/TIME:2023-08-18 20:42 PRE-OPERATIVE DIAGNOSIS:See Description POST-OPERATIVE DIAGNOSIS:See Description NAME OF PROCEDURE:See Description SURGEON:Dilshad Strong MD FOREST FIRE FIGHTER(S):See Description ANESTHESIA:See Description ESTIMATED BLOOD LOSS:10 ml's FINDINGS:See Description SPECIMEN(S) REMOVED AND/OR ALTERED:See Description COMPLICATION(S):See Description -- DESCRIPTION -- DESCRIPTION OF TECHNIQUE/PROCEDURE:Atrial lead extraction and new atrial lead placement Procedure Note Naphthol Soaping Machine Operator: Dislhad Strong MDFellow: [None]Facility: [facility] Device Architecture Professor: [employer] Referring Physician: MD Ish Date of Procedure: [...] this note. Edits and ammendments created in [employer] [facility] are not visible in Patient Keeper or the legal medical record ([facility]). RPT #: [id number] OF REPORTOPOperative giiyex0707-58-39D68:42:00P.ZV-[id number] Available for patient lkyuUPXNXCLKHAGRSF9534-05-29L52:02:24 [facility] 2023-08-18 15:06:00 PZ5186276217b+zTAFRu zBt/JNKZ5UP23JgyoTQidrQyshN0D I00EAhPdDJGLlz9+seDsjPUPfmo0647-14-04P75:06:00 [facility] ([facility]) Intensive Care Progress Note REPORT #: [id number] REPORT STATUS: Signed DATE: 08/18/23 TIME: 1506 PATIENT: CHARLIE HART UNIT #: [id number] #: [id number] ROOM #: P.0311 BED: 1 : 35 AGE: 88 SEX: M ATTEND: Tony Gautam MD [facility] AUTHOR: Chikis Burdick MD ATTENTION EDITS and/or ADDENDA must be made in Patient Keeper for this note. Edits and ammendments created in [facility] are not visible in Patient Keeper or the legal medical record ([facility]). -- ASSESSMENT AND PLAN -- HOSPITAL COURSE TO DATE:Mr. Hart is an 88 year-old male with past medical history of hypertension,hyperlipidemia, coronary artery disease, carotid disease, presence of permanentpacemaker (2021), pulmonary hypertension, and ischemic cardiomyopathy withprevious ejection fraction 40-50% who was transferred to the CVICU from the [facility] 08/13 after CABG x 3 (incl. STANLEY-LAD) [...] IV ASDIR PRNIPRATROPIUM BROMIDE 0.5 MG NEB HMD4SoiaOIDujy HCL 0.1 MG PO Q8H PRNNITROGLYCERIN 0.4 [...] this note. Edits and ammendments created in [facility] are not visible in Patient Keeper or the legal medical record (HPF). RPT #: [id number] OF REPORTPRProgress ewjf9045-28-65W87:06:00PAMNAWT-BVWM62117332-9311DCGw ailable for patient jlvdTVMIVTGREUMYBX6823-76-27J72:27:22 [facility] 2023-08-18 12:42:00 [id number] SUbIKk+/sZgE5Po01Z8Tsv7LiLBk3 y8xM2q8dyIVFGZ3opMkfF6jf/aE9535-37-89F25:42:00 [facility] ([facility]) Cardiology Progress Notes REPORT #: [id number] REPORT STATUS: Signed DATE: 08/18/23 TIME: 1242 PATIENT: CHARLIE HART UNIT #: [id number] #: [id number] [facility]: A : 35 AGE: 88 SEX: M ATTEND: Tony Gautam MD ADM AUTHOR: Trina Marquez MD CF1 ATTENTION EDITS and/or ADDENDA must be made in Patient Keeper for this note. Edits and ammendments created in [employer] [facility] are not visible in Patient Keeper or the legal medical record ([facility]). -- CO-SIGNATURE -- COMMENTS:The patient was seen [...] IV ASDIR PRNIPRATROPIUM BROMIDE 0.5 MG NEB MDU3QwvuNZHkzq HCL 0.1 MG PO Q8H PRNNITROGLYCERIN 0.4 [...] this note. Edits and ammendments created in [facility] are not visible in Patient Keeper or the legal medical record (HPF). RPT #: [id number] OF REPORTPRProgress wzxq9167-68-92L04:42:00P.XJ-QYXT11118478-3757RRIi ailable for patient uargKOMJDLGWKHNGYW5247-23-87N40:13:56 [facility] 2023-08-18 09:45:00 [id number] vLWnQt4voPp96h+7kavQ//1lZWU/Y OZjkK8RMRYCXbiChH0pkci9IwBw7411-11-44F30:45:00 [facility] ([facility]) Progress Note REPORT #: [id number] REPORT STATUS: Signed DATE: 08/18/23 TIME: 944 PATIENT: CHARLIE HART UNIT #: [id number] #: [id number] ROOM #: P.0311 BED: 1 : 35 AGE: 88 SEX: M ATTEND: Tony Gautam MD ADM AUTHOR: Nile Fuentes MD ATTENTION EDITS and/or ADDENDA must be made in Patient Keeper for this note. Edits and ammendments created in [employer] are not visible in Patient Keeper or [...] ASDIR PRN IPRATROPIUM BROMIDE 0.5 MG NEB OLL3EtssDCKxad HCL 0.1 MG PO Q8H PRNNITROGLYCERIN 0.4 [...] this note. Edits and ammendments created in [employer] are not visible in Patient Keeper or the legal medical record (HPF). RPT #: [id number] OF REPORTPRProgress wtmz6947-75-06Z87:45:00P.AB-PJOE12593663-1697SCZl ailable for patient nlblTJXSSYKJUAWMQX7713-91-25R93:49:18 [facility] 2023-08-17 18:19:00 [id number] /Y/nAS0+s8NbgESDDQNWEDwyO34UJ TJgQanf0pKKn1kRnbJFVlwkuwe63849-96-61U49:19:00 [facility] ([facility]) Hospitalist Progress Note REPORT #: [id number] REPORT STATUS: Signed DATE: 08/17/23 TIME: 1818 PATIENT: CHARLIE HART UNIT #: [id number] #: [id number] ROOM #: P.0311 BED: 1 : 35 AGE: 88 SEX: M ATTEND: Tony Gautam MD ADM AUTHOR: Temo Herrera MD ATTENTION EDITS and/or ADDENDA must be made in Patient Keeper for this note. Edits and ammendments created in [employer] are not visible in Patient Keeper or [...] anteroapical hypokinesis.The patient is being admitted to [facility] for higher level of care.Given his [...] identified. Dopplerand echo contrast study shows no ixwli-do-zrlk atrial level shunt.5. Aortic valve: Cusp separation [...] suggestive of angina. Hewas taken to the [place] emergency room on August 05, 2023 where he wasruled in for non-ST segment elevation myocardial infarction. He was started onheparin and transferred to [facility] where he was observed for a coupleof days and improved on medical therapy.Echocardiogram showed apical wall motion abnormalities with preserved leftventricular ejection fraction. As the patient was doing well on medicalmanagement, he was discharged from the other hospital without intervention. Hewas seen by his primary welder apprentice, Dr Deyvi Celis and admitted forselective coronary angiogram on August 09, 2023 to [facility].This showed multivessel coronary artery disease, LAD 90 to 99% lesion, leftcircumflex proximal 90%, 95% obtuse marginal lesion; Occluded proximal RCA.Left ventricular end-diastolic pressure 12; Left ventricular ejection %, severe anteroapical hypokinesis. He has been transferred to [facility] for consideration of CABG by Dr. [...] IV ASDIR PRNIPRATROPIUM BROMIDE 0.5 MG NEB VOH1MngnZHEdvm HCL 0.1 MG PO Q8H PRNNITROGLYCERIN 0.4 [...] this note. Edits and ammendments created in [facility] are not visible in Patient Keeper or the legal medical record (HPF). RPT #: [id number] OF REPORTPRProgress catr6814-15-37X92:19:00P.IM-[id number] ailable for patient bixdLTCGRVOTCPFQDL9328-61-35Y22:26:07 [facility] 2023-08-17 14:07:00 [id number] TdcQuT5wy8pWTIgtVZVFeqcd6ngn9 q0tMuL3nzQdGRavIggzsEB7a+MQ4532-32-64G82:07:00 [facility] ([facility]) Intensive Care Progress Note REPORT #: [id number] REPORT STATUS: Signed DATE: 08/17/23 TIME: 1407 PATIENT: CHARLIE HART UNIT #: [id number] #: [id number] ROOM #: P.0311 BED: 1 : 35 AGE: 88 SEX: M ATTEND: Tony Gautam MD ADM AUTHOR: Chikis Burdick MD ATTENTION EDITS and/or ADDENDA must be made in Patient Keeper for this note. Edits and ammendments created in [facility] are not visible in Patient Keeper or the legal medical record (HPF). -- ASSESSMENT AND PLAN -- HOSPITAL COURSE TO DATE:Mr. Hart is an 88 year-old male with past medical history of hypertension,hyperlipidemia, coronary artery disease, carotid disease, presence of permanentpacemaker (2021), pulmonary hypertension, and ischemic cardiomyopathy withprevious ejection fraction 40-50% who was transferred to the CVICU from the [facility] 08/13 after CABG x 3 (incl. STANLEY-LAD) [...] IV ASDIR PRNIPRATROPIUM BROMIDE 0.5 MG NEB FNJ5PvlwBAMdik HCL 0.1 MG PO Q8H PRNNITROGLYCERIN 0.4 [...] this note. Edits and ammendments created in [employer] are not visible in Patient Keeper or the legal medical record ([facility]). RPT #: [id number] OF REPORTPRProgress djen0401-36-40Z50:07:00P.LN-IKXU03499391-5687LXFo ailable for patient znrbIQXSFDNFSBSXLL6666-74-99Z96:26:46 [facility] 2023-08-17 11:45:00 [id number] LlTZbJjkhJaim87U3/Xpa17qRMgvv BJqETqfEt+4M/EuWXmfnkuszH4U8160-18-43A36:45:00 [facility] ([facility]) Cardiology Progress Notes REPORT #: [id number] REPORT STATUS: Signed DATE: 08/17/23 TIME: 1145 PATIENT: CHARLIE HART UNIT #: [id number] #: [id number] ROOM #: P.0418 BED: A : 35 AGE: 88 SEX: M ATTEND: Tony Gautam MD ADM AUTHOR: Trina Marquez MD CF1 ATTENTION EDITS and/or ADDENDA must be made in Patient Keeper for this note. Edits and ammendments created in [facility] are not visible in Patient Keeper or the legal medical record ([facility]). -- CO-SIGNATURE -- COMMENTS:I have personally seen and examined the patient independently, and reviewed thepatient's history, exam, and all cardiac and laboratory data on 08/17/23. Iagree with the history, physical, and the assessment and plan as outlined byTrian Dooley MD, Cardiovascular Fellow. Signed in PatientKeeper [...] IV ASDIR PRNIPRATROPIUM BROMIDE 0.5 MG NEB QQN6BmmkIGMoxn HCL 0.1 MG PO Q8H PRNNITROGLYCERIN 0.4 [...] this note. Edits and ammendments created in [facility] are not visible in Patient Keeper or the legal medical record (HPF). RPT #: [id number] OF REPORTPRProgress wyld1504-30-25D33:45:00P.MF-YIUB66665460-6307FLQj ailable for patient tdbjWFXVBGAELUBAAA7728-69-67U42:25:54 [facility] 2023-08-16 19:45:00 [id number] j2k1CfQ9bI/u2pBZvv2cEQPm7MyM0 Rr8gWfc16qzQjnsRFKeCs857YEz1394-24-64O70:45:00 [facility] ([facility]) Hospitalist Progress Note REPORT #: [id number] REPORT STATUS: Signed DATE: 08/16/23 TIME: 1944 PATIENT: CHARLIE HART UNIT #: [id number] #: [id number] ROOM #: P.0311 BED: 1 : 35 AGE: 88 SEX: M ATTEND: Tony Gautam MD ADM AUTHOR: Temo Herrera MD ATTENTION EDITS and/or ADDENDA must be made in Patient Keeper for this note. Edits and ammendments created in [employer] are not visible in Patient Keeper or [...] anteroapical hypokinesis.The patient is being admitted to [facility] for higher level of care.Given his [...] identified. Dopplerand echo contrast study shows no pwrcp-dr-glsc atrial level shunt.5. Aortic valve: Cusp separation [...] suggestive of angina.He was taken to the [place] emergency room on August 05, 2023 where he wasruled in for non-ST segment elevation myocardial infarction.He was started on heparin and transferred to [facility] where he wasobserved for a couple of days and improved on medical therapy.Echocardiogram showed apical wall motion abnormalities with preserved leftventricular ejection fraction.As the patient was doing well on medical management[facility].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 Left ventricular end-diastolic pressure 12;Left ventricular ejection fraction 40%, severe anteroapical hypokinesis.He has been transferred to [facility] for consideration of CABG by Dr.Eyal [...] IV ASDIR PRNIPRATROPIUM BROMIDE 0.5 MG NEB TXJ6LwzzBLVgjc HCL 0.1 MG PO Q8H PRNNITROGLYCERIN 0.4 [...] this note. Edits and ammendments created in [employer] are not visible in Patient Keeper or the legal medical record (HPF). RPT #: [id number] OF REPORTPRProgress dqht9419-23-72N42:45:00P.EL-GKUV50741038-6785KPOw ailable for patient lvhsUXKWPSTPEDXFQP7943-74-20E10:53:21 [facility] 2023-08-16 17:48:00 [id number] A5x3R1ZjqxlMuRHw5O+VkkWQKI6CB 8pg1tlxdqNJKJ9MDEFV/jD5DdkZ4703-02-44O12:48:00 [facility] ([facility]) Cardiology Progress Notes REPORT #: [id number] REPORT STATUS: Signed DATE: 08/16/23 TIME: 264 PATIENT: CHARLIE HART UNIT #: [id number] #: [id number] ROOM #: P.0418 BED: A : 35 AGE: 88 SEX: M ATTEND: Tony Gautam MD ADM AUTHOR: Trina Marquez MD CF1 ATTENTION EDITS and/or ADDENDA must be made in Patient Keeper for this note. Edits and ammendments created in [employer] [facility] are not visible in Patient Keeper [...] IV ASDIR PRNIPRATROPIUM BROMIDE 0.5 MG NEB NIF9ShayASQdkk HCL 0.1 MG PO Q8H PRNNITROGLYCERIN 0.4 [...] 0.01 Signed in PatientKeeper by TRINA MARQUEZ MD1 on 08/17/23 at 11:45 Cosigned by OSKAR GODINEZ MD on 09/11/23 at 13:17 at 1317 at 1317ATTENTION EDITS and/or ADDENDA must be made in Patient Keeper for this note. Edits and ammendments created in [facility] are not visible in Patient Keeper or the legal medical record (HPF). [facility] #: [id number] OF REPORTPRProgress jhnu6283-18-09E33:48:00P.SJ-GIBO27445336-6064KKPi ailable for patient mgqcIMTTOTCGAIRMPP8074-78-38S91:17:30 [facility] 2023-08-16 13:50:00 [id number]/U/UUJ4l gAqJJcZ6IZsJA3rSGvDTWvAWNMZ57 mTbeiOqxW/RfM2xYryflQBGpLRK4766-04-66W42:50:00 [facility] ([facility]) ElectroPhys. Progress Notes REPORT #: [id number] REPORT STATUS: Signed DATE: 08/16/23 TIME: 1350 PATIENT: CHARLIE HART UNIT #: [id number] #: [id number] ROOM #: [facility] BED: 1 : 35 AGE: 88 SEX: M ATTEND: Tony Gautam MD ADM AUTHOR: Dilshad Strong MD ATTENTION EDITS and/or ADDENDA must be made in Patient Keeper for this note. Edits and ammendments created in [facility] are not visible in Patient Keeper or the legal medical record ([facility]). -- ASSESSMENT AND PLAN -- PROBLEMS: 1: [...] this note. Edits and ammendments created in [employer] are not visible in Patient Keeper or the legal medical record (HPF). [facility] #: [id number] OF REPORTPRProgress gpoz8301-88-09Q10:50:00P.TC-NUTT04289783-4456LSMj ailable for patient fglxYKVTAFFFYZIBGY7860-07-03Y21:51:57 [facility] 2023-08-16 13:30:00 [id number] 7pBOTkjj8JhmXId5VzpYmlEcVqgxc oBAK0tzE7wxpm/EMnFCyxl9zkFE6616-55-68S74:30:25801 0-0026 [facility] [address], [place] [address]OWQUXIA NAME: CHARLIE HART ADMIT DATE: 08/09/23ACCOUNT NO: [id number] ROOM NO: P.0311 AGE: 88 REPORT TYPE: eTRANSESOPHAGEL REPORT SEX: M ADMITTING PHYSICIAN: Tony Gautam MD ATTENDING PHYSICIAN: Tony Gautam MD *[facility]*[address] [place] [address]Lzdnc Transesophageal Echocardiogram Patient: Rl Hart Date: 08/13/2023P:URN: [id number]: [id number]#: [id number]: 1935ge: 88Gender: MHeight: 68.1 in / 173 [...] identified. Dopplerand echo contrast study shows no mzewq-ha-zdyc atrial level shunt.Aorta:Aorta: No evidence of aneurysm, [...] Doppler and echo contrast study shows no wcvgs-xr-kkzs atrial level shunt.5. Aortic valve: Cusp separation is mildly reduced. The findings are consistent with mild stenosis.6. Mitral valve: There is no evidence of vegetation.7. Tricuspid valve: There is no evidence of a vegetation.8. Pulmonic valve: There is no evidence of a vegetation.Electronically signed by Gino Deng M.D.08/16/2023 13:30 at 1330 PATIENT NAME: CHARLIE HART mljvnzc9433-98-12A83:30:00P.YZS07211567-9540WZZfx ilable for patient xaofSIIHVBKLTCMYBW6574-48-92L05:31:16 [facility] 2023-08-16 12:38:00 [id number] 6zsP6+pvAcUCSWrLTixwCthZ4OeNd sNPUDxevajAtUqnivXZigej8Ov81387-81-45V70:38:00 [facility] ([facility]) Intensive Care Progress Note REPORT #: [id number] REPORT STATUS: Signed DATE: 08/16/23 TIME: 1238 PATIENT: CHARLIE HART UNIT #: [id number] #: [id number] ROOM #: P0311 BED: 1 : 35 AGE: 88 SEX: M ATTEND: Tony Gautam MD ADM AUTHOR: Chikis Burdick MD ATTENTION EDITS and/or ADDENDA must be made in Patient Keeper for this note. Edits and ammendments created in [employer] are not visible in Patient Keeper or the legal medical record (HPF). -- ASSESSMENT AND PLAN -- HOSPITAL COURSE TO DATE:Mr. Hart is an 88 year-old male with past medical history of hypertension,hyperlipidemia, coronary artery disease, carotid disease, presence of permanentpacemaker (2021), pulmonary hypertension, and ischemic cardiomyopathy withprevious ejection fraction 40-50% who was transferred to the CVICU from the [facility] 08/13 after CABG x [address] [...] IV ASDIR PRNIPRATROPIUM BROMIDE 0.5 MG NEB WID4NoimDMSasw HCL 0.1 MG PO Q8H PRNNITROGLYCERIN 0.4 [...] this note. Edits and ammendments created in [employer] are not visible in Patient Keeper or the legal medical record (HPF). RPT #: [id number] OF REPORTPRProgress xfhh2904-43-08V60:38:00P.CV-FPTE31746114-4560DUMi ailable for patient vshjWHCMDUXVGPTCIB3746-76-40B33:50:42 [facility] 2023-08-15 17:27:00 [id number]/tvXf5Ad zIwrnbcJNoGcto3eFR+OJTg+yA4he 5fIlBhTQUfC9qLjIkAnZ3weR72p5698-74-27J24:27:00 [facility] ([facility]) Cardiology Progress Notes REPORT #: [id number] REPORT STATUS: Signed DATE: 08/15/23 TIME: 1727 PATIENT: CHARLIE HART UNIT #: [id number] #: [id number] ROOM #: P.[facility]8 BED: A : 35 AGE: 88 SEX: M ATTEND: Tony Gautam MD ADM AUTHOR: Trina Marquez MD CF1 ATTENTION EDITS and/or ADDENDA must be made in Patient Keeper for this note. Edits and ammendments created in [employer] are not visible in Patient Keeper or [...] this note. Edits and ammendments created in [facility] are not visible in Patient Keeper or the legal medical record (HPF). [facility] #: [id number] OF REPORTPRProgress xcoi7176-04-47U95:27:00P.DD-ORDH74036247-1138FUVw ailable for patient ftneGGPERZVEJOOZAU5967-98-19Y30:13:54 [facility] 2023-08-15 11:45:00 LU3625511389siF0Bowe 0UkDVhLFX2lYUIpZyfD8sTSN7js7i d4Fr6QWRTD4lVoSjyYeu8jV6L+n5090-15-33L33:45:00 [facility] ([facility]) Hospitalist Progress Note REPORT #: [id number] REPORT STATUS: Signed DATE: 08/15/23 TIME: 1145 PATIENT: CHARLIE HART UNIT #: [id number] #: [id number] ROOM #: P.0311 BED: 1 : 35 AGE: 88 SEX: M ATTEND: Tony Gautam MD [facility] AUTHOR: Tony Gautam MD ATTENTION EDITS and/or ADDENDA must be made in Patient Keeper for this note. Edits and ammendments created in [facility] are not visible in Patient Keeper or [...] anteroapical hypokinesis.The patient is being admitted to [facility] for higher level of care.Given his [...] suggestive of angina.He was taken to the [place] emergency room on August 05, 2023 where he wasruled in for non-ST segment elevation myocardial infarction.He was started on heparin and transferred to [facility] where he wasobserved for a couple of days and improved on medical therapy.Echocardiogram showed apical wall motion abnormalities with preserved leftventricular ejection fraction.As the patient was doing well on medical management, [facility].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 Left ventricular end-diastolic pressure 12;Left ventricular ejection fraction 40%, severe anteroapical hypokinesis.He has been transferred to [facility] for consideration of CABG by Dr.Eyal [...] this note. Edits and ammendments created in [facility] are not visible in Patient Keeper or the legal medical record (HPF). [facility] #: [id number] OF REPORTPRProgress vqbb4258-57-15K86:45:00P.XU-BYCB80246777-0872OADf ailable for patient ozmxGGUJCWDOQTJOLH7134-57-16Q43:08:23 [facility] 2023-08-15 10:29:00 [id number] CHnnS2R5J7yhbLFC1VkyEjpV16Avh J9G5CPzSc1q3c79C4GCdkkxoina3735-24-66K21:29:00 [facility] ([facility]) Cardiology Consultation REPORT #: [id number] REPORT STATUS: Signed DATE: 08/15/23 TIME: 1029 PATIENT: CHARLIE HART UNIT #: [id number] #: [id number] ROOM #: P.0311 BED: 1 : 35 AGE: 88 SEX: M ATTEND: Tony Gautam MD ADM AUTHOR: Kaleigh Gonzalez ATTENTION EDITS and/or ADDENDA must be made in Patient Keeper for this note. Edits and ammendments created in [facility] are not visible in Patient Keeper or the legal medical record ([facility]). -- CO-SIGNATURE -- COMMENTS:I obtained the history and performed the physical examination in supervision ofKaleigh Gonzalez PA-C. I concur with her findings with the following additions: Patient is an 88yo M with SSS, CAD s/p ACB, now with RA lead dislodgementfollowing surgery. EP consulted for possible RA lead revision. Gen: NAD, A Li9URWJQ: anicteric sclera, MMMNeck: supple, no JVDCV: RRR, [...] recurrent chest pain and angina, transferred from [place] ER08/05/23 for emergent bypass, [facility]iv[facility] involving LAD (90-99% lesion), [...] PO DAILYFosamax tablet (alendronate) 70 MG PO U9MPpdiswmwmu Mononitrate Tab.ER (Imdur Tab) 30 MG PO [...] OWENS MD on 08/16/23 at 21:29 at 2129 at 2128ATTENTION EDITS and/or ADDENDA must be made in Patient Keeper for this note. Edits and ammendments created in [employer] are not visible in Patient Keeper or the legal medical record (HPF). RPT #: [id number] OF REPORTTLDifwpnnwlsvb1566-11-08U83:29:00P.PK-NO [id number] for patient ogwxUVNGLCAOWXDTNE7085-97-03C03:30:04 [facility] 2023-08-15 09:11:00 [id number] Hfp7t94/Cw52mL2/LUe/x2u8k8lbo 7n3YTleRv0nSDs7UMMfnyFMsbAA8452-93-83V78:11:00 [facility] ([facility]) Intensive Care Progress Note REPORT #: [id number] REPORT STATUS: Signed DATE: 08/15/23 TIME: 910 PATIENT: CHARLIE HART UNIT #: [id number] #: [id number] ROOM #: P.0311 BED: 1 : 35 AGE: 88 SEX: M ATTEND: Tony Gautam MD ADM AUTHOR: Yoav Hernandez MD ATTENTION EDITS and/or ADDENDA must be made in Patient Keeper for this note. Edits and ammendments created in [employer] are not visible in Patient Keeper or [...] the clinical pharmacist Yoav Hernandez, [facility] -- SUBJECTIVE -- PATIENT NARRATIVE:Overnight [...] this note. Edits and ammendments created in [employer] are not visible in Patient Keeper or the legal medical record (HPF). RPT #: [id number] OF REPORTPRProgress krtc3167-00-66D35:11:00P.ZO-NIVP12380692-2891YLBc ailable for patient phswYZIOHBTPXTABQQ9954-82-65P33:13:18 [facility] 2023-08-14 16:45:00 [id number]/CB 2ZN5Kt0dnk3VN1sm6UNSTawsxpB/D XFXW+9mUvXugN7/zcl2/k0Y5rSU1324-57-34G00:45:00 [facility] ([facility]) Hospitalist Progress Note REPORT #: [id number] REPORT STATUS: Signed DATE: 08/14/23 TIME: 1645 PATIENT: CHARLIE HART UNIT #: [id number] #: [id number] ROOM #: P.0311 BED: 1 : 35 AGE: 88 SEX: M ATTEND: Tony Gautam MD ADM AUTHOR: Tony Gautam MD ATTENTION EDITS and/or ADDENDA must be made in Patient Keeper for this note. Edits and ammendments created in [employer] are not visible in Patient Keeper or [...] anteroapical hypokinesis.The patient is being admitted to [facility] for higher level of care.Given his [...] suggestive of angina.He was taken to the [place] emergency room on August 05, 2023 where he wasruled in for non-ST segment elevation myocardial infarction.He was started on heparin and transferred to [facility] where he wasobserved for a couple of days and improved on medical therapy.Echocardiogram showed apical wall motion abnormalities with preserved leftventricular ejection fraction.As the patient was doing well on medical management, [facility].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 Left ventricular end-diastolic pressure 12;Left ventricular ejection fraction 40%, severe anteroapical hypokinesis.He has been transferred to [facility] for consideration of CABG by Dr.Eyal [...] IV ASDIR PRNtraMADol HCL 50 MG PO I4HQVCMTWSDDVB TARTRATE 5 MG IV Q6H PRNACETAMINOPHEN 650 MG PO F9RFXNBPIL CHLORIDE 10 mL 10 ML IV ASDIRFERROUS [...] Gautam MD on 08/14/23 at 21:59 at 2159ATTENTION EDITS and/or ADDENDA must be made in Patient Keeper for this note. Edits and ammendments created in [employer] are not visible in Patient Keeper or the legal medical record (HPF). RPT #: [id number] OF REPORTPRProgress zbvt0209-60-64D99:45:00P.BO-LGJC92754042-3562OYJl ailable for patient clfgJKBZWBNIBOZRXS6139-92-27I02:00:16 [facility] 2023-08-14 15:27:00 HN5966413127kJOI6C5/ L56JkhYp9v+UXIUeCMXC8Ks9Rntd3 O7vbK9KGXRHUVjtCp/UEZLWDncB8139-94-03B71:27:00 [facility] ([facility]) Cardiology Progress Notes REPORT #: [id number] REPORT STATUS: Signed DATE: 08/14/23 TIME: 1526 PATIENT: CHARLIE HART UNIT #: [id number] #: [id number] ROOM #: P.0311 BED: 1 : 35 AGE: 88 SEX: M ATTEND: Tony Gautam MD ADM AUTHOR: Trina Marquez MD CF1 ATTENTION EDITS and/or ADDENDA must be made in Patient Keeper for this note. Edits and ammendments created in [employer] are not visible in Patient Keeper or the legal medical record (HPF). -- CO-SIGNATURE -- COMMENTS:Agree with the findings and plan as documented by HousestaffI have seen and examined this patient * my personal evaluation is S/p SXPBG-sdn-flneirhzfafhls atrial fibrillation with rapid ventricularresponse-converted back to [...] IV ASDIR PRNtraMADol HCL 50 MG PO P7SADTMTYMYKTN TARTRATE 5 MG IV Q6H PRNACETAMINOPHEN 650 MG PO R8FCIFKUVT CHLORIDE 10 mL 10 ML IV ASDIRFERROUS [...] Signed in PatientKeeper by TRINA MARQUEZ MD [facility] on 08/15/23 at 06:48 Cosigned by NELIA HSU MD on 08/15/23 at 13:49 at 1349 at 1349ATTENTION EDITS and/or ADDENDA must be made in Patient Keeper for this note. Edits and ammendments created in [facility] are not visible in Patient Keeper or the legal medical record (HPF). RPT #: [id number] OF REPORTPRProgress qsrs3955-99-48N94:27:00P.PS-BYEG89625646-8784GZCl ailable for patient lksrHYBMNIEHMPGYER4056-42-72M32:50:48 [facility] 2023-08-14 10:33:00 [id number]+lp ey/3iOdWANc+YEEw/X4nyFFGNumVA OU2cu2nInVezldoCr8+Rm1KoEQl9192-69-79L72:33:00 [facility] ([facility]) Intensive Care Progress Note REPORT #: [id number] REPORT STATUS: Signed DATE: 08/14/23 TIME: 1033 PATIENT: CHARLIE HART UNIT #: [id number] #: [id number] ROOM #: P.0311 BED: 1 : 35 AGE: 88 SEX: M ATTEND: Tony Gautam MD [facility] AUTHOR: Yoav Hernandez MD ATTENTION EDITS and/or ADDENDA must be made in Patient Keeper for this note. Edits and ammendments created in [facility] are not visible in Patient Keeper or [...] the clinical pharmacist Yoav Hernandez, [facility] -- SUBJECTIVE -- PATIENT NARRATIVE:Overnight [...] IV ASDIR PRNtraMADol HCL 50 MG PO Q6WIZKEUIFRWZT TARTRATE 5 MG IV Q6H PRNACETAMINOPHEN 650 [...] this note. Edits and ammendments created in [employer] are not visible in Patient Keeper or the legal medical record (HPF). RPT #: [id number] OF REPORTPRProgress pldn9621-46-65B82:33:00P.SX-KSVC02477334-6948RHRk ailable for patient cfmrMLVYVVINFGYXRK7382-05-53J72:36:59 [facility] 2023-08-14 08:55:00 [id number] SrlLt6HeTKvGQe/boxok9NTAgQcfw UhQVYz38y9CneOpXCfgEfbDNF1R9164-52-05Z75:55:00 [facility] ([facility]) Progress Note REPORT #: [id number] REPORT STATUS: Signed DATE: 08/14/23 TIME: 854 PATIENT: CHARLIE HART UNIT #: [id number] #: [id number] ROOM #: P.0311 BED: 1 : 35 AGE: 88 SEX: M ATTEND: Tony Gautam MD ADM AUTHOR: Nile Fuentes MD ATTENTION EDITS and/or ADDENDA must be made in Patient Keeper for this note. Edits and ammendments created in [employer] are not visible in Patient Keeper or [...] IV ASDIR PRNtraMADol HCL 50 MG PO T4PJFFAGDWAVZW TARTRATE 5 MG IV Q6H PRNACETAMINOPHEN 650 [...] this note. Edits and ammendments created in [employer] are not visible in Patient Keeper or the legal medical record (HPF). [facility] #: [id number] OF REPORTPRProgress omba4971-20-02K79:55:00P.SR-TASO60105685-8014WQVd ailable for patient mvnbIWSPCYLGQCVFVO9417-96-64T13:59:06 [facility] 2023-08-13 19:00:00 [id number] SafVGdPu/lga7Ef1K5CB6el/ypYwX m//KxlKGIZoc5zd17vtfYcV5CBl3444-97-24D37:00:00 [facility] ([facility]) Operative Report REPORT #: [id number] REPORT STATUS: Signed DATE: 08/13/23 TIME: 1899 PATIENT: CHARLIE HART UNIT #: [id number] #: [id number] ROOM #: P.0311 BED: 1 : 35 AGE: 88 SEX: M ATTEND: Tony Gautam MD ADM AUTHOR: João Powell MD ATTENTION EDITS and/or ADDENDA must be made in Patient Keeper for this note. Edits and ammendments created in [facility] are not visible in Patient Keeper or the legal medical record (HPF). -- OPERATION -- SURGERY START DATE/TIME:2023-08-13 09:47 PRE-OPERATIVE DIAGNOSIS:See Full Summary POST-OPERATIVE DIAGNOSIS:See Full Summary INDICATION(S):See Full Summary NAME OF PROCEDURE:See Full Summary TIME OUT COMPLETED:Yes SURGEON:João Powell MD FOREST FIRE FIGHTER(S):See Full Summary ANESTHESIA:See Full Summary ESTIMATED BLOOD LOSS:800 ml's FINDINGS:See Full Summary SPECIMEN(S) REMOVED AND/OR ALTERED:See Full Summary COMPLICATION(S):See Full Summary -- DESCRIPTION -- DESCRIPTION OF TECHNIQUE/PROCEDURE: SURGEON 1ST FOREST FIRE FIGHTER 2ND FOREST FIRE FIGHTER DATE OFOPERATION Marylou Bosch P.A. Whitney Riemer, [...] August 05, 2023 thepatient was admitted to [place] emergency department where non-STelevation myocardial infarction was ruled out. He was transferred to [facility] for observation. As his symptoms subsided, the patient wasdischarged and underwent a LHC (August 09, 2023). He was found to havecritical multivessel coronary artery disease (95 % LCx 99% LAD and SIEVE REPAIRER of theRCA). Due to the above findings, the patient was transferred to [facility] for an urgent surgical coronary revascularization. Ofnote, [...] to the complexity of this surgery, a manager surgical wasnecessary. Wiley Sierra PA-C was present and scrubbed for the entirety of thecase. Wiley was essential for the proper positioning, manipulation ofinstruments, maintenance/exposure of a clear surgical field.He helpedinitiating/weaning from cardiopulmonary bypass and completion of allanastomoses as described above. This operation could not have been safelyperformed (without compromising the technical results or length of theprocedure) without the assistance of a skilled medical surgical tech. João Powell M.D. Signed in PatientKeeper by João Powell MD on 08/18/23 at 15:37 at 1537ATTENTION EDITS and/or ADDENDA must be made in Patient Keeper for this note. Edits and ammendments created in [employer] [facility] are not visible in Patient Keeper or the legal medical record (HPF). RPT #: [id number] OF REPORTOPOperative ezzcss3446-86-09W31:00:00P.NB-OGLW97168407-5790SR Available for patient hmqdDNMEUHQMIUNXSR4730-84-15E10:38:22 [facility] 2023-08-13 17:55:00 [id number] n56/i8EzME1ut1LK2iqntbK6sRE/N rFMq/6lqyWUcuaVGV6goHsEkk736561-20-56L20:55:00 [facility] ([facility]) Hospitalist Progress Note REPORT #: [id number] REPORT STATUS: Signed DATE: 08/13/23 TIME: 1754 PATIENT: CHARLIE HART UNIT #: [id number] #: [id number] ROOM #: P.0311 BED: 1 : 35 AGE: 88 SEX: M ATTEND: Tony Gautam MD ADM AUTHOR: Tony Gautam MD ATTENTION EDITS and/or ADDENDA must be made in Patient Keeper for this note. Edits and ammendments created in [facility] are not visible in Patient Keeper or [...] anteroapical hypokinesis.The patient is being admitted to [facility] for higher level of care.Given his [...] suggestive of angina.He was taken to the [place] emergency room on August 05, 2023 where he wasruled in for non-ST segment elevation myocardial infarction.He was started on heparin and transferred to [facility] where he wasobserved for a couple of days and improved on medical therapy.Echocardiogram showed apical wall motion abnormalities with preserved leftventricular ejection fraction.As the patient was doing well on medical management, [facility].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 Left ventricular end-diastolic pressure 12;Left ventricular ejection fraction 40%, severe anteroapical hypokinesis.He has been transferred to [facility] for consideration of CABG by Dr.Eyal [...] IV ASDIR PRNtraMADol HCL 50 MG PO P1TCDLBNUAAUFH TARTRATE 5 MG IV Q6H PRNACETAMINOPHEN 650 [...] this note. Edits and ammendments created in [employer] are not visible in Patient Keeper or the legal medical record (HPF). RPT #: [id number] OF REPORTPRProgress hbof3413-32-44R66:55:00P.UY-PLIZ95243057-4924MLSp ailable for patient cajcDJFKTGRTBUYQGP8069-95-54C67:08:03 [facility] 2023-08-13 17:33:00 [id number] IoRvCYCbSnEcGPX3vbPMhrN3i4sV1 rHqfqn7TESpziC4xmLMTUE339741072-27-30M90:33:00 [facility] ([facility]) Intensive Care Consultation REPORT #: [id number] REPORT STATUS: Signed DATE: 08/13/23 TIME: 3193 PATIENT: CHARLIE HART UNIT #: [id number] #: [id number] ROOM #: P.0311 BED: 1 : 35 AGE: 88 SEX: M ATTEND: Tony Gautam MD ADM AUTHOR: Yoav Hernandez MD ATTENTION EDITS and/or ADDENDA must be made in Patient Keeper for this note. Edits and ammendments created in [employer] are not visible in Patient Keeper or [...] the clinical pharmacist Yoav Hernandez, [facility] -- HISTORY -- HPI:Mr. Hart [...] IV ASDIR PRNtraMADol HCL 50 MG PO O1GTWVHHNGTGUF TARTRATE 5 MG IV Q6H PRNACETAMINOPHEN 650 [...] this note. Edits and ammendments created in [employer] [facility] are not visible in Patient Keeper or the legal medical record (HPF). [facility] #: [id number] OF REPORTWZXjyfqegjcsig6805-54-17L42:33:00P.PK-NO [id number] for patient rkxjXFNFISTKSMJCVP4086-82-44S22:40:08 [facility] 2023-08-13 16:08:00 [id number] rVxhaVTqftPPDDios7MfHtYK3029N /AfOQg4jdJQUxAyxuCxKapU1l5t7991-31-80N55:08:00 [facility] ([facility]) Brief Operative Report REPORT #: [id number] REPORT STATUS: Signed DATE: 08/13/23 TIME: 1608 PATIENT: CHARLIE HART UNIT #: [id number] #: [id number] ROOM #: P.0311 BED: 1 : 35 AGE: 88 SEX: M ATTEND: Tony Gautam MD ADM AUTHOR: Wiley Sierra ATTENTION EDITS and/or ADDENDA must be made in Patient Keeper for this note. Edits and ammendments created in [facility] are not visible in Patient Keeper or [...] SVG-->Ramus and SVG--> OM SURGEON:João Powell MD [employer]RE FIGHTER(S):Wiley Starr PA-C FINDINGS:CAD ESTIMATED BLOOD LOSS (ML'S):800 SPECIMEN(S) REMOVED AND/OR ALTERED:none COMPLICATION(S):none DRAIN(S):28fr left pleural mefc25mk chest tube ADDITIONAL COMMENTS:3 units of packed red blood cells, and 2 units of Cell Saver Signed in PatientKeeper by Wiley Sierra on 08/18/23 at 16:11 at 1611ATTENTION EDITS and/or ADDENDA must be made in Patient Keeper for this note. Edits and ammendments created in [facility] are not visible in Patient Keeper or the legal medical record ([facility]). [facility] #: [id number] OF REPORTOPOperative urofcy2223-82-72E97:08:00P.CE-[id number] Available for patient tjykQBXYPTJUERXRJJ5104-65-94B42:12:13 [facility] 2023-08-13 10:26:00 [id number] i6F8yypCery1v1KcJma/579TnodLW I+c7S5jb3w2x3kEByNs4G8Q7t6S4431-38-55P98:26:00 [facility] ([facility]) Cardiology Progress Notes REPORT #: [id number] REPORT STATUS: Signed DATE: 08/13/23 TIME: 1026 PATIENT: CHARLIE HART UNIT #: [id number] #: [id number] ROOM #: [facility] BED: A : 35 AGE: 88 SEX: M ATTEND: Tony Gautam MD ADM AUTHOR: Trina Marquez MD CF1 ATTENTION EDITS and/or ADDENDA must be made in Patient Keeper for this note. Edits and ammendments created in [employer] are not visible in Patient Keeper or the legal medical record ([facility]). -- CO-SIGNATURE -- COMMENTS:The patient was seen [...] PO BID PRNtraMADol HCL 50 MG PO K2WYMRVTSTJMWZ TARTRATE 5 MG IV Q6H PRNACETAMINOPHEN 650 [...] this note. Edits and ammendments created in [facility] are not visible in Patient Keeper or the legal medical record ([facility]). RPT #: [id number] OF REPORTPRProgress llcj6521-87-63K22:26:00P.XG-ISOG12526210-4055PSSw ailable for patient enwqGADGVGKYSYMNTS6593-22-88V99:13:52 [facility] 2023-08-13 09:43:00 [id number] gBg9hLGv+H0RbEWTr3MLtefjN2BAM gKTPnhI6uHfSYgAP7jYplwJT+F58582-89-81Z52:43:00 [facility] ([facility]) Progress Note REPORT #: [id number] REPORT STATUS: Signed DATE: 08/13/23 TIME: 942 PATIENT: CHARLIE HART UNIT #: [id number] #: [id number] ROOM #: P.0311 BED: 1 : 35 AGE: 88 SEX: M ATTEND: Tony Gautam MD ADM AUTHOR: Nile Fuentes MD ATTENTION EDITS and/or ADDENDA must be made in Patient Keeper for this note. Edits and ammendments created in [facility] are not visible in Patient Keeper or [...] EYE BID PRNMETOPROLOL SUCCINATE 25 MG PO B22LQXOYCPGNI SODIUM 100 MG PO BIDLACTULOSE 30 ML [...] this note. Edits and ammendments created in [facility] are not visible in Patient Keeper or the legal medical record ([facility]). RPT #: [id number] OF REPORTPRProgress sjod4221-61-93N54:43:00P.LM-WIRQ75572717-1363DDHs ailable for patient rzlzXIPGVQAOCGEOQX9238-58-53J98:47:30 [facility] 2023-08-13 08:26:00 [id number] a9qeT3Fpqispazp5D/l8YPrRP9cph Pg3YEO1QJxX2OIHlQEVO2buRa7P1227-25-29Y39:26:00 [facility] ([facility]) Cardiothoracic Surg. Prog NoteREPORT #: [id number] REPORT STATUS: Signed DATE: 08/13/23 TIME: 825 PATIENT: CHARLIE HART UNIT #: [id number] #: [id number] ROOM #: P.0417 BED: A : 35 AGE: 88 SEX: M ATTEND: Tony Gautam MD ADM AUTHOR: Wiley Sierra ATTENTION EDITS and/or ADDENDA must be made in Patient Keeper for this note. Edits and ammendments created in [employer] are not visible in Patient Keeper or [...] White, male, 74kg, 172cm, BMI: 25 kg/mInsurance/Payor: [facility] Values: Creatinine: 1.1 mg/dL, Hematocrit: 35.7%, WBC Count: 8.3 10/L,Platelet Count: 529638 cells/LSubstance Abuse: Former smokerRisk Factors / Comorbidities: Hypertension, Family Hx of CADVascular RF: Cerebrovascular Disease: TIACardiac Status: Chronic heart failure, NYHA Class III, Ejection Fraction = 39%Coronary Artery Disease: 3 vessels diseased, Proximal LAD Stenosis 70%, Non-STElevation GA, GA: 8 to 21 DaysValve Disease: Aortic Stenosis, [...] call for help and drovehimself to the [place] ED on 08/05. He was ruled in for NSTEMI andtransferred [facility]. His chest pain improved on medicaltherapy, but echocardiogram showed apical wall motion abnormalities. Thepatient was not happy with his care and discharged home. He saw hiscardiologist, Dr. Celis in the office on 08/07 and scheduled for outpatientcardiac catheterization on 08/09. His last nuclear stress test was negative [id number] and last catheterization was in 1991. The patient underwent coronaryangiogram by Dr. Celis on 08/09 that showed LAD (90 to 99% lesion), circumflexproximal 90%, 95% obtuse marginal lesion, RCA (proximal SIEVE REPAIRER), LVEDP 12, LVEF40%, severe anteroapical hypokinesis. The [facility]ation of [facility] artery bypass. [...] PO Q4H PRNMETOPROLOL SUCCINATE 25 MG PO P70CPHFHUIDBB SODIUM 100 MG PO BIDLACTULOSE 30 ML [...] this note. Edits and ammendments created in [facility] are not visible in Patient Keeper or the legal medical record ([facility]). [facility] #: [id number] OF REPORTPRProgress xefa9124-87-34E79:26:00P.VJ-UPOU65627357-3207JYZj ailable for patient grthSZVLFOPFIAZBQN6262-29-00C91:34:14 [facility] 2023-08-12 15:34:00 [id number] EdhkColZiK830rgyRBiH2Y5yi4Nyb 2cNsMvmTk7TO5I/boGYxxexbPVR3425-28-50K02:34:00 [facility] ([facility]) Hospitalist Progress Note REPORT #: [id number] REPORT STATUS: Signed DATE: 08/12/23 TIME: 1534 PATIENT: CHARLIE HART UNIT #: [id number] #: [id number] ROOM #: P.0417 BED: A : 35 AGE: 88 SEX: M ATTEND: Tony Gautam MD ADM AUTHOR: Tony Gautam MD ATTENTION EDITS and/or ADDENDA must be made in Patient Keeper for this note. Edits and ammendments created in [employer] are not visible in Patient Keeper or [...] anteroapical hypokinesis.The patient is being admitted to [facility] for higher level of care.Given his [...] suggestive of angina.He was taken to the [place] emergency room on August 05, 2023 where he wasruled in for non-ST segment elevation myocardial infarction.He was started on heparin and transferred to [facility] where he wasobserved for a couple of days and improved on medical therapy.Echocardiogram showed apical wall motion abnormalities with preserved leftventricular ejection fraction.As the patient was doing well on medical management, [facility].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 Left ventricular end-diastolic pressure 12;Left ventricular ejection fraction 40%, severe anteroapical hypokinesis.He has been transferred to [facility] for consideration of CABG by Dr.Eyal [...] PO Q4H PRNMETOPROLOL SUCCINATE 25 MG PO I67WLOIVKGQTA SODIUM 100 MG PO BIDLACTULOSE 30 ML [...] this note. Edits and ammendments created in [facility] are not visible in Patient Keeper or the legal medical record ([facility]). RPT #: [id number] OF REPORTPRProgress jqks7793-83-20D13:34:00P.QX-GKBL21300983-7900OPFl ailable for patient rorzWNJUZNSHUJZSBT4622-67-95E86:29:35 [facility] 2023-08-12 10:55:00 [id number] MZPwP2Q9k0IQsF4zOppZHo7kKlGRT J1UoloUopYB02apZYMFA60GuiNR7276-02-69E41:55:00 [facility] ([facility]) Cardiothoracic Surg. Consult REPORT #: [id number] REPORT STATUS: Signed DATE: 08/12/23 TIME: 1055 PATIENT: CHARLIE HART UNIT #: [id number] #: [id number] ROOM #: P.0311 BED: 1 : 35 AGE: 88 SEX: M ATTEND: Tony Gautam MD ADM AUTHOR: Rosie Starr ATTENTION EDITS and/or ADDENDA must be made in Patient Keeper for this note. Edits and ammendments created in [facility] are not visible in Patient Keeper or the legal medical record ([facility]). -- ASSESSMENT AND PLAN -- GENERAL ASSESSMENT:Patient is an 88-year-old male with a long history of nonobstructive coronaryartery disease who presented to an outside ED with unstable angina and ruled infor NSTEMI. He was transferred to [facility] and underwent coronary angiogrampositive for severe multi-vessel disease and subsequently transferred to [facility] coronary revascularization. The patient's entire medical chart has beenreviewed. Dr. Powell has reviewed the patient's chest CT and coronary angiogramdemonstrating severe triple vessel disease with proximal LAD lesion, 90%proximal circumflex, 95% OM, and SIEVE REPAIRER on the right. He has excellent bypasstargets. [...] and mild tricuspid regurgitation. Previousechocardiogram report from [place] with no aortic stenosis. Despite thepatient's age, [...] Procedure Type: Isolated CABGPerioperative OutcomeEstimate %Operative Mortality6.82%Morbidity Itclapqfj59.7%Stroke1.98%Renal Failure2.45%Reoperation3.87%Prolonged Ventilation7.21%Deep Sternal Wound Infection0.098%Long Hospital Stay (>14 days)12.8%Short Hospital Stay (<6 days)*16.6% Clinical SummaryPlanned Surgery:Isolated CABG, Urgent, First cardiovascular surgeryDemographics:88 year old, White, male, 74kg, 172cm, BMI: 25 kg/mInsurance/Payor:[facility] Values:Creatinine: 1.1 mg/dL, Hematocrit: 35.7%, WBC Count: 8.3 10/L,Platelet Count: 211072 cells/LSubstance Abuse:Former smokerRisk Factors / Comorbidities:Hypertension, Family Hx of CADVascular RF:Cerebrovascular Disease: TIACardiac Status:Chronic heart failure, NYHA Class III, Ejection Fraction = 39%Coronary Artery Disease:3 vessels diseased, Proximal LAD Stenosis 70%, Non-STElevation GA, GA: 8 to 21 DaysValve Disease:Aortic Stenosis, Mild MR, Mild TRArrhythmia:Remote 2 Degree BlockPrev. Cardiac Interv:Previous other: Permanent Pacemaker - Yes, STS risk calculator score was calculated and discussed withpatient/family prior to surgery as documented in the medical record -- HISTORY -- CONSULT REQUESTED BY:Deyvi Celis MD Cardiology REASON FOR CONSULT:Severe multi-vessel coronary artery disease. CHIEF COMPLAINT:The patient was transferred from [facility] for CABG evaluation. HPI:Mr. Hart is an [...] call for help and drovehimself to the [place] ED on 08/05. He was ruled in for NSTEMI andtransferred to [facility] for observation. His chest pain improved on medicaltherapy, but echocardiogram showed apical wall motion abnormalities. Thepatient was not happy with his care and discharged home. He saw hiscardiologist, Dr. Celis in the office on 08/07 and scheduled for outpatientcardiac catheterization on 08/09. His last nuclear stress test was negative ps6057 and last catheterization was in 1991. The patient underwent coronaryangiogram by Dr. Celis on 08/09 that showed LAD (90 to 99% lesion), circumflexproximal 90%, 95% obtuse marginal lesion, RCA (proximal SIEVE REPAIRER), LVEDP 12, LVEF 40%, severe anteroapical hypokinesis. The patient was [facility]ation of urgent [facility] artery bypass. The patient endorses the abovehistory. He denies any chest pain or shortness of breath outside of isolatedevent 08/04. PAST MEDICAL HISTORY:HypertensionHyperlipidemiaCoronary artery disease (status [...] PO DAILYFosamax tablet (alendronate) 70 MG PO R0SCpntihflbe Mononitrate Tab.ER (Imdur Tab) 30 MG PO [...] PO Q4H PRNMETOPROLOL SUCCINATE 25 MG PO J13JYKDOQHGLX SODIUM 100 MG PO BIDLACTULOSE 30 ML [...] this note. Edits and ammendments created in [employer] are not visible in Patient Keeper or the legal medical record ([facility]). RPT #: [id number] OF REPORTJGTenmtuhvzyzq7191-07-17N78:55:00P.PK-NO [id number] for patient uqizURQGYQTHRQLFXE6438-60-74W16:55:07 [facility] 2023-08-12 08:46:00 [id number] rsEEcginWZpmHctDK0hsMwa5wWzMX 0ZoCXC+rsba0OUbFOZFnWOZK+pj7571-41-73P31:46:00 [facility] ([facility]) Cardiology Progress Notes REPORT #: [id number] REPORT STATUS: Signed DATE: 08/12/23 TIME: 845 PATIENT: CHARLIE HART UNIT #: [id number] #: [id number] ROOM #: P.0418 BED: A : 35 AGE: 88 SEX: M ATTEND: Tony Gautam MD ADM AUTHOR: Annette Chow ATTENTION EDITS and/or ADDENDA must be made in Patient Keeper for this note. Edits and ammendments created in [employer] are not visible in Patient Keeper or the legal medical record ([facility]). -- CO-SIGNATURE -- COMMENTS:The patient was seen [...] pain, suggestive of angina, and presented at [place] emergency room on 08/05/22 for further evaluation and management. He wasruled in NSTEMI, started on heparin drip and transferred to [facility]. He wasobserved and pain resolved on medical therapy (per records). He was discharged.He was seen by cardiology services (Dr. Celis) as outpatient and underwentelective coronary angiogram on 08/09/22 at [facility] and showed multi-vesselcoronary artery disease, LAD (90 to 99% lesion),LCx proximal 90%, 95% obtusemarginal lesion, RCA (occluded proximal), LVEDP 12, LVEF 40%, severeanteroapical hypokinesis. He was transferred here to [facility] for considerationof CABG by Dr. João Powell. - Echo (08/10/23) - EF 35-39%, grade I diastolic dysfunction, moderate to severeAS, mild MR/TR- SCA to be reviewed by Dr. Powell and Dr. Deng to assess candidacy for CABGvs. PCI. The patient states does not want to have CABG and would prefer tohave PCI if recommended by his welder apprentice (Dr. Celis). NPO after midnightif consensus is [...] undergo surgery and would prefer PCIif his welder apprentice (Dr. Celis) recommends it. No acute events [...] PO Q4H PRNMETOPROLOL SUCCINATE 25 MG PO B24BJTJAZGYOZ SODIUM 100 MG PO BIDLACTULOSE 30 ML [...] this note. Edits and ammendments created in [employer] are not visible in Patient Keeper or the legal medical record ([facility]). RPT #: [id number] OF REPORTPRProgress ugbq5450-95-03S78:46:00P.HG-[id number] ailable for patient lefnMEEXNLRYGBWEPT2455-69-37R50:13:51 [facility] 2023-08-11 13:53:00 [id number] Dn74A9GMDNYBXxVUhR4Wq8wLLx7MU jMXxriWBh/el451gllUhH267+Re2211-23-26T41:53:00 [facility] ([facility]) Hospitalist Progress Note REPORT #: [id number] REPORT STATUS: Signed DATE: 08/11/23 TIME: 1353 PATIENT: CHARLIE HART UNIT #: [id number] #: [id number] ROOM #: P.0417 BED: A : 35 AGE: 88 SEX: M ATTEND: Tony Gautam MD ADM AUTHOR: Tony Gautam MD ATTENTION EDITS and/or ADDENDA must be made in Patient Keeper for this note. Edits and ammendments created in [employer] are not visible in Patient Keeper or [...] anteroapical hypokinesis.The patient is being admitted to [facility] for higher level of care.Given his [...] suggestive of angina.He was taken to the [place] emergency room on August 05, 2023 where he wasruled in for non-ST segment elevation myocardial infarction.He was started on heparin and transferred to [facility] where he wasobserved for a couple of days and improved on medical therapy.Echocardiogram showed apical wall motion abnormalities with preserved leftventricular ejection fraction.As the patient was doing well on medical management, [facility].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 Left ventricular end-diastolic pressure 12;Left ventricular ejection fraction 40%, severe anteroapical hypokinesis.He has been transferred to [facility] for consideration of CABG by Dr.Eyal [...] Monitor I/Os (08/10 07:00 - 08/11 07:00):Net 700Intake 700 -EXAM- GENERAL: Well developed, well [...] PO Q4H PRNMETOPROLOL SUCCINATE 25 MG PO T78QMYSCYMVQS SODIUM 100 MG PO BIDLACTULOSE 30 ML [...] this note. Edits and ammendments created in [employer] are not visible in Patient Keeper or the legal medical record ([facility]). RPT #: [id number] OF REPORTPRProgress eivz6799-22-03J81:53:00P.UL-PIXU46663074-1843JGRi ailable for patient dhiaEBZPOENTKQFRMF4573-73-04V68:26:21 [facility] 2023-08-11 08:30:00 [id number] PVGlZ0Ex0RBx5FpqXu+zjcQBWj7sD +wcaYIOCrH+EL5K2JUwWSVx9+6v4399-90-90J51:30:00 [facility] ([facility]) Cardiology Progress Notes REPORT #: [id number] REPORT STATUS: Signed DATE: 08/11/23 TIME: 829 PATIENT: CHARLIE HART UNIT #: [id number] #: [id number] ROOM #: P.0418 BED: A : 35 AGE: 88 SEX: M ATTEND: Tony Gautam MD ADM AUTHOR: Annette Chow ATTENTION EDITS and/or ADDENDA must be made in Patient Keeper for this note. Edits and ammendments created in [facility] are not visible in Patient Keeper or [...] pain, suggestive of angina, and presented at [facility] emergency room on 08/05/22 for further evaluation and management. He wasruled in NSTEMI, started on heparin drip and transferred to [facility]. He wasobserved and pain resolved on medical therapy (per records). He was discharged.He was seen by cardiology services (Dr. Celis) as outpatient and underwentelective coronary angiogram on 08/09/22 at [facility] and showed multi-vesselcoronary artery disease, LAD (90 to 99% lesion),LCx proximal 90%, 95% obtusemarginal lesion, RCA (occluded proximal), LVEDP 12, LVEF 40%, severeanteroapical hypokinesis. He was transferred here to [facility] for considerationof CABG by Dr. [...] Monitor I/Os (08/10 07:00 - 08/11 07:00):William 700Intake 700 -EXAM- OTHER: Constitutional: Well developed, well [...] PO Q4H PRNMETOPROLOL SUCCINATE 25 MG PO I07CSXEPIEDSF SODIUM 100 MG PO BIDLACTULOSE 30 ML [...] ADDITIONAL DETAIL:Plan of care discussed with Dr. Gnio Deng Signed in PatientKeeper by ANNETTE CHOW on 08/11/23 at 15:15 Cosigned by GINO DENG MD on 09/06/23 at 13:53 at 1353 at 1353ATTENTION EDITS and/or ADDENDA must be made in Patient Keeper for this note. Edits and ammendments created in [facility] are not visible in Patient Keeper or the legal medical record ([facility]). RPT #: [id number] OF REPORTPRProgress kuyi5666-98-43D05:30:00P.IN-QMXI08075572-8642GPJp ailable for patient objfYKYUJCDZUUXUAD5382-95-65R49:13:48 [facility] 2023-08-11 07:46:00 [id number] XkwkcMLe5ysLdd4a8fTkJn1UYgPUV 3xZ9f3OBHTQqMVnSOdM59eKFGFF6248-87-46J69:46:10828 [address] [place], [place] [address]PATIENT NAME: CHARLIE HART ADMIT DATE: 08/09/23ACCOUNT NO: [id number] ROOM NO: [facility] AGE: 88 REPORT TYPE: eECHOCARDIOGRAM REPORT SEX: M ADMITTING PHYSICIAN: Tony Gautam MD ATTENDING PHYSICIAN: Tony Gautam MD *[facility]*[address] [place], [place] [address]Phone Transthoracic Echocardiogram Patient: Partha Hartudprimo Date: 4BP:URN: [id number]: [id number]#: [id number]: 5Age: 88Gender: MHeight: 68 in / 172.7 cmWeight: 167 lb / 75.8 kgBMI/BSA: 25.4 kg/m 2 / 1.92 m 2*Ordering Physician: * Nj Oliva Cf1 *Interpreting Physician: * Cyril Umana MD*Archeology Faculty Member: * Mindy Chaudhry Indications: Chest Pain, unspecified. [...] cm 2.5 - 4.0 FS 28 % PW, ED 0.9 cm 0.6 - 1.0 [...] at 0746 PATIENT NAME: CHARLIE HART :46:0 0P.[id number] for patient vsagHPEBZAZPSXZWWA6248-09-56D25:46:47 [facility] 2023-08-10 13:18:00 [id number] DKh9Xhg84/lxCBPG6Q+QmgQQbbQhZ FJtNbPOsrp4F+WyUIXfufivGCHH1955-95-59E39:18:00 [facility] ([facility]) Hospitalist Progress Note REPORT #: [id number] REPORT STATUS: Signed DATE: 08/10/23 TIME: 1318 PATIENT: CHARLIE HART UNIT #: [id number] #: [id number] ROOM #: [facility]7 BED: A : 35 AGE: 88 SEX: M ATTEND: Tony Gautam MD ADM AUTHOR: Tony Gautam MD ATTENTION EDITS and/or ADDENDA must be made in Patient Keeper for this note. Edits and ammendments created in [employer] are not visible in Patient Keeper or [...] anteroapical hypokinesis.The patient is being admitted to [facility] for higher level of care.Given his [...] suggestive of angina.He was taken to the [place] emergency room on August 05, 2023 where he wasruled in for non-ST segment elevation myocardial infarction.He was started on heparin and transferred to [facility] where he wasobserved for a couple of days and improved on medical therapy.Echocardiogram showed apical wall motion abnormalities with preserved leftventricular ejection fraction.As the patient was doing well on medical management, [facility].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 Left ventricular end-diastolic pressure 12;Left ventricular ejection fraction 40%, severe anteroapical hypokinesis.He has been transferred to [facility] for consideration of CABG by Dr.Eyal [...] PO Q4H PRNMETOPROLOL SUCCINATE 25 MG PO B87GOKQCOMXOR SODIUM 100 MG PO BIDLACTULOSE 30 ML [...] this note. Edits and ammendments created in [employer] are not visible in Patient Keeper or the legal medical record ([facility]). RPT #: [id number] OF REPORTPRProgress qyyu0658-96-81B20:18:00P.FJ-MFUO29462437-2291MJWm ailable for patient glpzZWYPBZEOKVPDNF4086-45-97G43:24:03 [facility] 2023-08-10 08:50:00 [id number] pdI8nzhZSumcfGpVgiozeTWWUW2PE rLHczGYeLTF+fMOsuc1LYBs37sQ0673-92-29N36:50:00 [facility] ([facility]) Cardiology Consultation REPORT #: [id number] REPORT STATUS: Signed DATE: 08/10/23 TIME: 0850 PATIENT: CHARLIE HART UNIT #: [id number] #: [id number] ROOM #: P.0427 BED: A : 35 AGE: 88 SEX: M ATTEND: Tony Gautam MD ADM AUTHOR: Nj Oliva DO CF1 ATTENTION EDITS and/or ADDENDA must be made in Patient Keeper for this note. Edits and ammendments created in [employer] are not visible in Patient Keeper or the legal medical record ([facility]). -- CO-SIGNATURE -- COMMENTS:Seen and examined with forensic toxicologist Dr. Oliva. PE:NAD, alert and awakeRRR, no m/g/rCTAB 88-year-old male with a past medical history of hypertension, cardiomyopathy,hyperlipidemia, prostate cancer, pacemaker placement who was transferred forCABG evaluation. He was recently admitted to [facility] for an NSTEMI. Hefollowed up with his welder apprentice Dr. Celis who performed a left heartcatheterization on him on August 09 at [facility]. This showed severemultivessel coronary artery disease and he was transferred for possible CABG.plan to repeat echocardiogram here. I reviewed heart catheterization, patienthas SIEVE REPAIRER of the proximal RCA with collaterals from the left system. He also hasa SIEVE REPAIRER of the proximal LAD with very well-formed [...] suggestive ofangina. He was taken to the [place] emergency room on August 05, 2023where he was ruled in for non-ST segment elevation myocardial infarction. Hewas started on heparin and transferred to [facility] where he wasobserved for a couple of days and improved on medical therapy. Echocardiogramshowed apical wall motion abnormalities with preserved left ventricularejection fraction. As the patient was doing well on medical management, he wasdischarged from the other hospital without intervention. [facility], Dr Deyvi Celis and admitted for selective coronaryangiogram on August 09, 2023 to [facility]. This showed multivessel coronaryartery disease, LAD 90 to 99% lesion, left circumflex proximal 90%, 95% obtusemarginal lesion; Occluded proximal RCA. Left ventricular end-diastolic hltpafvu13; Left ventricular ejection fraction 40%, severe anteroapical hypokinesis. Hehas been transferred to [facility] for consideration of CABG by Dr.Eyal Powell. When seen in the room the patient is awake alert and oriented andverbalizes the above. He denies any chest pain or shortness of breath at thistime. Denies any headache or dizziness. No nausea vomiting. 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 08/09/2023, [facility] November 2021 -- ALLERGIES/HOME MEDS -- ALLERGIES:No Known Allergies (UNKNOWN - Allergy) HOME MEDICATIONS:aspirin chewable tablet 81 MG PO DAILYAtorvastatin Tab (Lipitor Tab) 10 MG PO DAILYClopidogrel Tab (Plavix Tab) 75 MG PO DAILYFosamax tablet (alendronate) 70 MG PO T4JVdzmgtnkbd Mononitrate Tab.ER (Imdur Tab) 30 MG PO [...] PO Q4H PRNMETOPROLOL SUCCINATE 25 MG PO C79NKNMFZJGAK SODIUM 100 MG PO BIDLACTULOSE 30 ML [...] this note. Edits and ammendments created in [facility] are not visible in Patient Keeper or the legal medical record (HPF). [facility] #: [id number] OF REPORTVEKiryfbfrslcx8061-03-28J67:50:00P.PK-NO [id number] for patient tsbkOBCDSZHROLQZER2794-66-57V24:44:54 [facility] 2023-08-09 16:44:00 [id number] t+fJEhHx2CTcsz5UrPRgsmkbgm7L7 Do9B+IQ/YSG6bP0QWV5BgR4DFjI2652-74-73D31:44:00 [facility] ([facility]) Hospitalist Stephen Ferguson REPORT #: [id number] REPORT STATUS: Signed DATE: 08/09/23 TIME: 1643 PATIENT: CHARLIE HART UNIT #: [id number] #: [id number] ROOM #: P0417 BED: A : 35 AGE: 88 SEX: M ATTEND: Tony Gautam MD ADM AUTHOR: Tony Gautam MD ATTENTION EDITS and/or ADDENDA must be made in Patient Keeper for this note. Edits and ammendments created in [facility] are not visible in Patient Keeper or the legal medical record (HPF). -- HISTORY -- ADMISSION DATE:2023-08-09 CHIEF COMPLAINT:1. Angina pectoris.2. Severe multivessel coronary artery disease, not amenable to percutaneouscoronary intervention. The patient is being admitted to [facility] forconsideration of CABG HPI: This 88-year-old gentleman has a past medical history significant forhypertension, pulmonary hypertension,Nonobstructive coronary artery disease, ischemic cardiomyopathy, with aprevious ejection fraction of 40 to 50%,hyperlipidemia, benign prostatic hyperplasia, vitamin B12 deficiency, Permanentpacemaker placement in November 2021.The patient was in his usual state of health until recently when he developedrecurrent chest pain, suggestive of angina.He was taken to the [place] emergency room on August 05, 2023 where he wasruled in for non-ST segment elevation myocardial infarction.He was started on heparin and transferred to [facility] where he wasobserved for a couple of days and improved on medical therapy.Echocardiogram showed apical wall motion abnormalities with preserved leftventricular ejection fraction.As the patient was doing well on medical management, [facility].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 Left ventricular end-diastolic pressure 12;Left ventricular ejection fraction 40%, severe anteroapical hypokinesis.He has been transferred to [facility] for consideration of CABG by Dr.Eyal [...] weekAtorvastatin 10 mgIsosorbide mononitrate 30 mgTramadol 150 qtN49Mgdpyhho -- SUBJECTIVE -- -REVIEW OF SYSTEMS- GENERAL: [...] anteroapical hypokinesis.The patient is being admitted to [facility] for higher level of care,consideration of [...] this note. Edits and ammendments created in [employer] are not visible in Patient Keeper or the legal medical record (HPF). [facility] #: [id number] OF REPORTHPHistory and physical ouyexmoobkq8640-27-33U70:44:00P.CE-OFRH63026750-1 200AVAvailable for patient qycoYPAVTJOBMHJDXD3515-97-61I71:53:20 [facility] 2023-08-09 13:23:00 [id number] Hkdy9aL8Q4fhS3O6CPRqKUd7bjy8x 9/LuNs9cW2spfp9UpQyOQKqRCc04739-64-78K03:23:15418 4-0001 [place] [address] PATIENT NAME: CHARLIE HART ADMIT DATE: 08/09/23ACCOUNT NO: [id number] ROOM NO: AGE: 88 REPORT TYPE: DISCHARGE SUMMARY SEX: M ADMITTING PHYSICIAN: ATTENDING PHYSICIAN: Deyvi Celis MD Cardiology ADMISSION DATE: 08/09/2023 07:15:00DISCHARGE DATE: REASON FOR DISCHARGE: The patient is being transferred to the [facility] for bypass later on this week. HOSPITAL [...] the family and the surgeon in the [facility], it was decided best to transfer the patient while stable to the [facility] for bypass later on this week. The patient will be needing to be taken off Plavix and put on Lovenox for the next few days and then adjust his medications and then proceed with bypass, so the patient is being transferred electively to a tele bed for the planned bypass. This was alldiscussed in detail with the accepting physicians and the patient and his family. Dictated By: Deyvi Celis MD Date Dictated: 08/09/2023 13:23:31Date Transcribed: 08/10/2023 02:22:15SFD/Renetta #: [id number] ID: [id number] by Deyvi Celis MD On 08/10/2023 06:36:20 AM at 0636 PATIENT NAME: CHARLIE HART bpczvkp2184-47-46V98:22:00L.WGY38743446-5596KEUhl ilable for patient brumSDWYHXETAQRAOV4718-11-12C23:37:00 [facility] 2023-08-09 10:27:00 [id number] uMHVvg6p+P90z5+XzC1HiHH7IEryn LH5r37uj5WVr22pOWUQS1R58oCU6632-27-76Y69:27:71331 3-[address] [address] PATIENT NAME: CHARLIE HART ADMIT DATE: 08/09/23ACCOUNT NO: [id number] ROOM NO: AGE: 88 REPORT TYPE: OPERATIVE REPORT SEX: M ADMITTING PHYSICIAN: ATTENDING PHYSICIAN: Deyvi Celis MD Cardiology OPERATION DATE: 08/09/2023 INDUSTRIAL TRUCK MECHANIC: Deyvi Celis MD FOREST FIRE FIGHTER: PREOPERATIVE DIAGNOSIS: POSTOPERATIVE DIAGNOSIS: TITLE OF PROCEDURE: [...] femoral artery area for local anesthesia. A 6-Greenlandic sheath was placed in the right common [...] Dictated: 08/09/2023 10:27:56Date Transcribed: 08/09/2023 13:25:37SBRIANA/Brant #: [id number] ID: [id number] by Deyvi Celis MD On 08/09/2023 01:36:14 PM at 0136 PATIENT NAME: CHARLIE HART pjprtf4073-17-78I26:25:00L.ENB59548887-4624HRZhkc lable for patient zxdySFYGGPESPCCNNV3344-72-24L20:36:44 [facility] 2023-08-09 07:47:00 [id number]/M 4mqt47AExja6cWTDgHIOGSKgEfCdD 2U9KtiGEH1kIFqF+YytBvEW8Hqh9035-49-74D51:47:[address] [address] PATIENT NAME: CHARLIE HART ADMIT DATE: 08/09/23ACCOUNT NO: [id number] ROOM NO: AGE: 88 REPORT TYPE: eELECTROCARDIOGRAM SEX: M ADMITTING PHYSICIAN: ATTENDING PHYSICIAN: Deyvi Celis MD Order:[id number] Reason : PREOP Test Date/Time Stamp:FriAug 09 [...] CELIS at 0951 PATIENT NAME: CHARLIE HART .[id number] AVAvailable for patient bnsmJNHFLBGXMAEIOA2153-36-54J30:51:55 [facility] 2023-08-08 07:19:00 [id number] Gl2rL7ofe+n3sjRj2B4yyXFFqFAD+ D3hTsgx9rwUSPsxJMc32A+ttNBQ1196-47-16Q42:19:[address] [address] PATIENT NAME: CHARLIE HART ADMIT DATE: ACCOUNT NO: [id number] ROOM NO: AGE: 88 REPORT TYPE: PREOP HP REPORT SEX: M ADMITTING PHYSICIAN: ATTENDING PHYSICIAN: Deyvi Celis MD Cardiology PATIENT NAME: CHARLIE HART ADMIT DATE:08/09/2023DMISSION DATE: 08/09/2023 12:30:00 INDUSTRIAL TRUCK MECHANIC: Deyvi Celis MD REASON FOR ADMISSION: Unstable [...] pain got worse, so he went to [facility] Room on 08/05/2023 where he was ruled in for a non-ST wave myocardialinfarction. By that time, his chest pain was getting better. [facility] and observed for couple of [...] pulmonaryhypertension, osteoarthritis, benign prostatic hyperplasia, and vitamin L88dpauzzenuz. PAST SURGICAL HISTORY: He has had knee replacement, hernia, cholecystectomy,hip and shoulder replacement, prostate cancer, skin cancer, the above-mentionedpacemaker. ALLERGIES: NO KNOWN DRUG ALLERGIES. MEDICATIONS: Aspirin 81 mg daily, Plavix 75 mg daily, metoprolol 25 mg daily, PATIENT NAME: CHARLIE HART alendronate 70 mg, atorvastatin 10 mg daily, isosorbide 30 mg daily, lqmtobys808 mg daily, B12, and eyedrops. SOCIAL HISTORY: [...] Pending. Laboratory data and cardiac evaluation from [facility] was reviewed. Noninvasive workup from my office [...] Dictated: 08/08/2023 07:19:23Date Transcribed: 08/08/2023 08:55:16SFD/LINDA/ANUJob #: [id number] ID: [id number] and Edited by Deyvi Celis MD On 08/08/23 5:22:53 PM PATIENT NAME: CHARLIE HART at 0523 PATIENT NAME: CHARLIE HART and physical ogwsfwoxewu4720-07-69G92:55:00L.BQH52308001-9916M VAvailable for patient aqjiJWJXOHUWOOXEWB8090-82-69G89:25:56 [facility] 2023-08-07 09:15:00 [id number] Xq9jslop6onMXu303cSd5qhxIjMnZ xehbFCy2g4agtBOfQqPWxFu2Pdc3505-52-45L40:15:00 [facility] Discharge SummaryREPORT#:[id number] REPORT STATUS: SignedREPORT INITIALIZATION DATE:08/07/23 TIME: 914 PATIENT: CHARLIE HART UNIT #: [id number]#: [id number] [facility] AGE: 88 SEX: M ATTEND: Alvaro Ron MDALUZ MARINA AUTHOR: Osbaldo Stanley DO R2REPT SERVICE DT/TIME: 08/07/23914* ALL edits or amendments must be made on the electronic/computer document * Osbaldo Stanley 08/07/2315:General InformationProblem List/A P: 1. NSTEMI (non-ST elevated myocardial infarction) 2. Elevated troponin I level 3. 2nd degree AV block 4. CAD (coronary artery disease) 5. HTN (hypertension) 6. 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 Initial troponin at this facility [...] home, pending cardiac clearanceNOK: Elizabeth Hart (daughter): [phone] Med Rec Med RecDischarge meds:Stop taking the [...] no edemaMusculoskeletal: normal inspection, painless range of motionNeuro/BICYCLE SUBASSEMBLER: alert, oriented X 3, CNII-XII intactPsychiatry: normal affect, normal judgment/insight, normal mood, not homicidal, not suicidal Discharge Instructions PCPPCP follow-up:PCP: DOES_NOT KNOW Discharge to: Home/Self CareAdditional Discharge Routines: PCP Follow-Up, Rat Trapper Follow-UpDiet: Resume Home Diet/FeedsActivity: As Tolerated Follow-up [...] (minutes): 32 at 1551 at 1646 RPT #:[id number] OF REPORTDSDischarge lutfnhz9421-61-06D22:15:00Z.IBXT26419143-5317JMRm ailable for patient tsibFSXTZZUEAXTQWP4827-93-58S32:51:34 [facility] 2023-08-07 07:21:00 [id number] /7av2Uan+l82hr8aXyMONcjar9KqO mjUdYt71WddDuU419q9hMKo+FhN3856-71-30G42:21:00 [facility] ([facility])Cardiology Progress NoteREPORT#:[id number] REPORT STATUS: SignedREPORT INITIALIZATION DATE:08/07/23 TIME: 720 PATIENT: CHARLIE HART UNIT #: [id number]#: [id number] [facility]AD[facility] [birth year] AGE: 88 SEX: M ATTEND: Alvaro [...] LE assessment: no edemaMusculoskeletal: full range of motionNeuro/BICYCLE SUBASSEMBLER: alert, oriented X 3, CN II-XII intactSkin: [...] f/u with Dr. Celis today. at 0741 [facility] #:[id number] OF REPORTPRProgress sxgq2995-41-06Q25:21:00Z.YIZN98149730-0624QFPomza able for patient azuzRJLNKNCYJCRKCM3937-08-51E35:41:57 [facility] 2023-08-07 05:15:00 [id number] mheXciq0GIMey+fieXfXvrbGSWetL p9YtPtsBraiSSRW1UalCR8/utwR1683-89-62U55:15:24266 2-[address] [address] PATIENT NAME: CHARLIE HART ADMIT DATE: 08/05/23ACCOUNT NO: [id number] ROOM NO: Z.363 AGE: 88 REPORT TYPE: ELECTROCARDIOGRAM SEX: M ADMITTING PHYSICIAN:Alvaro Ron MD ATTENDING PHYSICIAN:Alvaro Ron MD Order:[id number] Reason : CAD Test Date/Time Stamp:FriAug 07 [...] CELIS at 1726 PATIENT NAME: CHARLIE HART .[id number] AVAvailable for patient cekqYPRYSXKRXVIBJQ4248-69-08F48:27:12 [facility] 2023-08-06 17:28:00 [id number] GF6PN5vUXehUHCIVAAHGpdd/WpOZI gwrX4iNK5pXCdR9r7WNU9nBxcNG1062-73-43J23:28:21247 0-[address] [address] PATIENT NAME: CHARLIE HART ADMIT DATE: 08/05/23ACCOUNT NO: [id number] ROOM NO: Z.363 AGE: 88 REPORT TYPE: ECHOCARDIOGRAM SEX: M ADMITTING PHYSICIAN:Alvaro Ron MD ATTENDING PHYSICIAN:Alvaro Ron MD *[facility]*[address] [place], [place] [address]Vxqdt Transthoracic Echocardiogram Patient: Charlie Hart Date: 08/05/2023P:URN: [id number]: [id number]#: [id number]: 5Age: 88Gender: MHeight: 68 in / 172.7 cmWeight: 165 lb / 74.8 kgBMI/BSA: 25.1 kg/m 2 / 1.9 m 2*Ordering Physician: * Kyree Noble MD *Interpreting Physician: * Deyvi Celis MD*Archeology Faculty Member: * Jose D Salvador Indications: CAD. Study data: Transthoracic echocardiogram. Procedure: A transthoracicechocardiogram was performed. Images were obtained using a Luristic cardiacultrasound machine. Image quality was adequate. M-mode, complete 2D, completespectral Doppler, and color Doppler. Location: [facility]. Patient status:Inpatient. Patient room number: 363. Study [...] at 1728 PATIENT NAME: CHARLIE HART :28:0 0Z.[id number] for patient rlnuWGDYYOMHONYWDG4593-14-30S67:28:30 [facility] 2023-08-06 10:46:00 [id number] JhCv05jT3saew9Xr4T0oMcS511Xe/ 1jkVMZ9YhpK31jfCYfueEhQ0b4l5761-85-99Q49:46:00 [facility] ([facility]ospitalist Progress NoteREPORT#:[id number] REPORT STATUS: SignedREPORT INITIALIZATION DATE:08/06/23 TIME: 1045 PATIENT: CHARLIE HART UNIT #: [id number]#: [id number] [facility]AD[facility] [birth year] AGE: 88 SEX: M ATTEND: Alvaro Ron MDA AUTHOR: Osbaldo Stanley DO R2REPT SERVICE DT/TIME: 08/06/23 1046* ALL edits or amendments must be made on the electronic/computer document * Osbaldo Stanley 08/06/23 1046:SubjectiveChief complaint:Chest pain, NSTEMIHPI:88M with PMHx of 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 Per the ED physician, pt [...] 96 08/06 0100 80 18 85/51 95 / 0030 82 15 94/52 93 / 0003 36.4 08/05 2331 97 17 90/50 94 08/05 2200 112 20 100/65 94 08/05 2144 113 34 92/63 96 08/05 2140 109 21 /62 98 08/05 1941 36.8 82 14 74.1 [...] no edemaMusculoskeletal: normal inspection, painless range of motionNeuro/BICYCLE SUBASSEMBLER: alert, oriented X 3, CNII-XII intactPsychiatry: normal [...] % (Auto) (14 - 44 %) 20.2 Cochran % (Auto) (4 - 13 %) 10.5 Eos % (Auto) (0 - 6 %) 2.7 Baso % (Auto) (0 - 2 %) 0.5 Neut # (Auto) (2.0 - 7.6 K/mm3) 4.87 Lymph # (Auto) (1.0 - 3.8 K/mm3) 1.50 Cochran # (Auto) (0.1 - 0.8 K/mm3) 0.78 [...] home, pending cardiac clearanceNOK: Elizabeth Hart (daughter): [phone] Quality: [facility] Crit Care VTE ProphylaxisVTE prophylaxis initiated: yes [...] and plan. at 1538 at 1939 RPT #:[id number] OF REPORTPRProgress rrqe6464-18-21H43:46:00Z.BSIS54480560-3890UXLsubk able for patient ngpaOVEPXGSMJLEVIX4599-21-66L31:39:35 [facility] 2023-08-06 09:06:00 [id number] OOudkLM6vtgz0s1+60oLMI2ETI/UC wDq5P4sE70H6pfFkmHrF1/rVPEh1022-21-14J21:06:49184 0-0012 [place] [address] PATIENT NAME: CHARLIE HART ADMIT DATE: 08/05/23ACCOUNT NO: [id number] ROOM NO: [facility] AGE: 88 REPORT TYPE: ELECTROCARDIOGRAM SEX: M ADMITTING PHYSICIAN:Alvaro Ron MD ATTENDING PHYSICIAN:Alvaro Ron MD Order:[id number] Reason : CAD Test Date/Time Stamp:FriAug 06 [...] CELIS at 1533 PATIENT NAME: CHARLIE HART .[id number] AVAvailable for patient pyeyDVBUZODBRFPPIU1272-37-01V06:33:54 [facility] 2023-08-06 06:07:00 [id number] eMlaJJNO8MSCNimk5HVGMCzaL/sgJ Isa3jZg39kZJE81kKFbY4ovxxQY9876-34-78R56:07:00 [facility] ([facility]Cardiology Progress NoteREPORT#:[id number] REPORT STATUS: SignedREPORT INITIALIZATION DATE:08/06/23 TIME: 606 PATIENT: CHARLIE HART UNIT #: [id number]#: [id number] [facility] [birth year] AGE: 88 SEX: M ATTEND: Alvaro [...] LE assessment: no edemaMusculoskeletal: full range of motionNeuro/BICYCLE SUBASSEMBLER: alert, oriented X 3, CN II-XII intactSkin: [...] (100 - 129 mg/dL) 65 L 08/05 931 Chemistry Sodium (137 - 145 MMOL/L) 138 [...] (Auto) (14 - 44 %) 20.2 28.7 Cochran % (Auto) (4 - 13 %) 10.5 11.1 Eos % (Auto) (0 - 6 %) 2.7 4.6 Baso % (Auto) (0 - 2 %) 0.5 1.0 Neut # (Auto) (2.0 - 7.6 K/mm3) 4.87 3.67 Lymph # (Auto) (1.0 - 3.8 K/mm3) 1.50 1.94 Cochran # (Auto) (0.1 - 0.8 K/mm3) 0.78 [...] IMPRESSION:Mild bibasilar atelectasis.Impression By: GaneshPR7 - Carito Flaquitojeremiah MDC SCAN - CT HEAD/BRAIN W/O CONT 08/05 [...] current medical rx Review echo. at 0741 RPT #:[id number] OF REPORTPRProgress opoh0892-79-64D57:07:00Z.AUMF30905005-1349MLDzqtv able for patient twgcXTQASFOXQADJTU5771-67-90B56:41:56 [facility] 2023-08-05 14:36:00 [id number] iNtC1VE1CJWbKl9rxmtAo/7EwEoro iWYcaaVw/vaC6fKSzqNTEvqNflc5616-05-98F05:36:44963 9-[address] [address] PATIENT NAME: CHARLIE HART ADMIT DATE: 08/05/23ACCOUNT NO: [id number] ROOM NO: Z.363 AGE: 88 REPORT TYPE: [...] call EMS and drove himself to the [facility] Emergency Room. Currently, he is chest pain [...] Dictated: 08/05/2023 14:36:53Date Transcribed: 08/05/2023 19:37:25ISAIAH/Pablo #: [id number] ID: [id number] and Edited by Kyree Noble MD On 08/08/23 10:09:18 AM at 1014 PATIENT NAME: CHARLIE HART :37:00[facility] [id number] for patient snyyHUDHFQFTLZUZZF0404-20-26F99:16:29 [facility] 2023-08-05 08:23:00 [id number] rabb75X1S3T7+Uxi9rN19aJRq8S5/ QEqFYa4Q/ypYmD0TEayB89SNzOr2416-65-61W03:23:00 [facility])Hospitalist History PhysicalREPORT#:[id number] REPORT STATUS: SignedREPORT INITIALIZATION DATE:08/05/23 TIME: 822 PATIENT: CHARLIE HART UNIT #: [id number]#: [id number] ROOM/BED: STEVE-2DOB: [birth year] AGE: 88 SEX: M ATTEND: Alvaro Ron MDADM AUTHOR: Clinton Moreau MD R1REPT SERVICE DT/TIME: 08/05/23822* ALL edits or amendments must be made on the electronic/computer document * See AddendumClinton Moreau 08/05/23822:History of Present Illness HPIChief complaint:Chest pain, NSTEMIPCP:PCP: DOES_NOT KNOW HPI:88M with PMHx of 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 Per the ED physician, pt received full dose ASA and heparin at OSH but lab values, EKG and other data are not visible on this EMR. No other history from able to be obtained from events at OSH. On chart review, pt was seen in 11/2021 for symptomatic bradycardia and rec'd pacemaker due to 2nd degree AV block. Auto Engine Mechanic at the time was Dr. Celis. Examined [...] no edemaMusculoskeletal: normal inspection, painless range of motionNeuro/BICYCLE SUBASSEMBLER: alert, oriented X 3, CNII-XII intactPsychiatry: normal [...] % (Auto) (14 - 44 %) 28.7 Cochran % (Auto) (4 - 13 %) 11.1 Eos % (Auto) (0 - 6 %) 4.6 Baso % (Auto) (0 - 2 %) 1.0 Neut # (Auto) (2.0 - 7.6 K/mm3) 3.67 Lymph # (Auto) (1.0 - 3.8 K/mm3) 1.94 Cochran # (Auto) (0.1 - 0.8 K/mm3) 0.75 [...] LovenoxDispo: Pending cardiology workupNOK: Elizabeth Hart (daughter): [phone] 1119- aPTT > 400 with troponin of 1.51- Verbal orders to STOP Heparin drip. Not in EMR, no order to discontinue. Re-check coags at 1330- Cardiology remains consulted per Dr. Noble --> no cath today, medical mgmt. Lovenox at PPx dose qd, rec'd Heparin. Consider reversal with protamine sulfate if aPTT persistently elevated after DC heparin Consultants: cardiology Quality: [facility] Crit Care VTE ProphylaxisVTE prophylaxis initiated: yes (heparin) Current MedicationsCurrent medication review:I attest that the foregoing medication list in the medical record is true, accurate, and complete to the best of my knowledge. Advanced Care Plan 65 or OlderDiscussed with: patient (full code) AttestationsAttestation needed: supervising physician Alvaro Ron 08/05/23 1644:Quality: [facility] Crit Care Advanced Care Plan 65 or OlderDiscussion included: code status Attestations Teaching Physician Jzrdykhyyil1kv visit w/ resident:I was present with the [...] him w no defecit at 1901 RPT #:[id number] OF REPORTHPHistory and physical joqhmybgqmp0815-03-55G41:23:00Z.BSOO39282995-4104 AVAvailable for patient sovyERWNQPHNTRZOPV5027-29-36N20:40:58 [facility] 2023-08-05 05:59:00 [id number]+ KAoZzPr2m0RYeay9ICkN4rcxU+pJx eRgp7kglc7B1mtEvXmdXA7y8FHp5567-96-01W48:59:00 [facility] ([facility])EMERGENCY PROVIDER REPORTREPORT#:[id number] REPORT STATUS: SignedDATE:08/05/23 TIME: 05 PATIENT: CHARLIE HART UNIT #: [id number]#: [id number] ROOM/BED:AGE: 88 SEX: M PCP PHYS: No Primary or Family PhysicianSERVICE DT: AUTHOR: Alan Scott MD LOCATION: [facility] * ALL edits or amendments [...] 0450 Pulse 101 08/05 0450 Resp 18 08/050 [...] B/P 116/78 08/05 0450 B/P Mean 90 08/05 0450 Temp 37.1 08/05 0450 Pulse 101 08/05 0450 Resp 18 08/050 [...] Call Information will see patient at 0602RPT #:[id number] OF REPORTEDEmergency department kvlfbl9155-89-14B96:59:00Z.[id number] ilable for patient bqrwURBKSCQUGBQFFQ7364-26-19N10:02:42 [facility] 2021-12-16 10:12:00 [id number] 8JCqiRT9zX7qZV6HCvECSzdBE8fhx Xpx3JjC79uKR+yCg3Sf8K8pwUmycbv0926-01-76U51:12:00 [facility] CampusCardiology Progress NoteREPORT#:[id number] REPORT STATUS: SignedDATE:12/16/21 TIME: 1012 PATIENT: CHARLIE HART UNIT #: [id number]#: [id number] [facility]GE: 86 SEX: M ATTEND: Alvaro Ron [facility] AUTHOR: Kyree Noble MD * ALL edits [...] edema, 2+ peripheral pulsesMusculoskeletal: full range of motionNeuro/BICYCLE SUBASSEMBLER: alert, oriented X 3, CN II-XII intact, [...] (Auto) (14 - 44 %) 13.9 L Cochran % (Auto) (4 - 13 %) 10.4 Eos % (Auto) (0 - 6 %) 2.2 Baso % (Auto) (0 - 2 %) 0.2 Neut # (Auto) (2.0 - 7.6 K/mm3) 5.86 Lymph # (Auto) (1.0 - 3.8 K/mm3) 1.12 Cochran # (Auto) (0.1 - 0.8 K/mm3) 0.84 [...] vascular congestion.Impression By: GaneshRXC2 - Aquiles Powell MDRADIOLOGY - XR CHEST 1V 12/16 0608 [...] home f/u one week. at 1153 RPT #:[id number] OF REPORTPRProgress qcjv4385-21-23W78:12:00Z.VGSB39914888-7689TLNduiq able for patient yxnaSVKICYXUYXPNBX9639-47-41U02:54:00 [facility] 2021-12-16 08:16:00 Z37296-90983026ALb4g Y9YkgktXJBTvrLyFIaKVTOEPa4aZF DSngr+kc8Jzuv4qlqZIwkrUzI7NFa28381-40-90K97:16:00 8642-8642 [place] [address] PATIENT NAME: CHARLIE HART ADMIT DATE: 12/13/21ACCOUNT NO: [id number] ROOM NO: [facility] AGE: 86 REPORT TYPE: ELECTROCARDIOGRAM SEX: M ADMITTING PHYSICIAN:Alvaro Ron MD ATTENDING PHYSICIAN:Alvaro Ron MD Order:[id number] Reason : S/P PPI Test Date/Time Stamp:FriDec [...] CELIS at 0918 PATIENT NAME: CHARLIE HART .[id number] AVAvailable for patient yypoKHHMAFCFOOTJUB4162-86-91T91:18:24 [facility] 2021-12-16 08:16:00 P81632-16056309HMp4+ ODgymahLfgtLFR5lkCJVMdMF3Ob4C cJCaoTDM7fYWmzKayQCLlSTGZMiQU86308-26-01L50:16:00 0114-[address] [address] PATIENT NAME: CHARLIE HART ADMIT DATE: 12/13/21ACCOUNT NO: [id number] ROOM NO: [facility] AGE: 86 REPORT TYPE: ELECTROCARDIOGRAM SEX: M ADMITTING PHYSICIAN:Alvaro Ron MD ATTENDING PHYSICIAN:Alvaro Ron MD Order:[id number] Reason : S/P PPI Test Date/Time Stamp:FriDec [...] CELIS at 1445 PATIENT NAME: CHARLIE HART .[id number] AVAvailable for patient stamMLFYGGTWOTBBZD2585-64-64R86:46:12 [facility] 2021-12-16 07:41:00 R86200-27031316N60+2 epWNpEeWleCP3wfKNrfSRQbpT4s5e +RtdP+oxFUGFkcW+QSsKSjGNi7kOVM0973-60-72S42:41:00 [facility] ([facility])Hospitalist Discharge SummaryREPORT#:[id number] REPORT STATUS: SignedDATE:12/16/21 TIME: 740 PATIENT: CHARLIE HART UNIT #: [id number]#: [id number] [facility]: 86 SEX: M ATTEND: Alvaro Ron [facility] AUTHOR: Edgard Birmingham MD R2 * ALL [...] in several days prior to admission. His welder apprentice, Dr. Celis was consulted. Echocardiogram was normal. [...] all, no clubbing, no cyanosis, R hand motor hotel manager mildly lowerMusculoskeletal: normal inspection, no muscle spasmNeuro/BICYCLE SUBASSEMBLER: alert, oriented X 3, no motor deficitsSkin: intact, no rashPsychiatry: normal affect, normal mood ResultsFindings/Data:Laboratory Tests Test Result Date Time Chemistry Sodium (137 - 145 MMOL/L) 141 12/15 0510 Potassium (3.5 - 5.1 MMOL/L) 4.6 12/15 0510 Chloride (98 - 107 MMOL/L) 107 05/21 0510 Carbon Dioxide (22 - 30 MMOL/L) [...] 0510 MPV (7.4 - 10.4 fl) 9.3 12/15 0510 Neut % (Auto) (43 - 75 %) 64.1 12/15 0510 Lymph % (Auto) (14 - 44 %) 20.5 / 0510 Cochran % (Auto) (4 - 13 %) 11.4 / 0510 Eos % (Auto) (0 - 6 %) 3.0 12/15 0510 Baso % (Auto) (0 - 2 %) 0.7 / 0510 Neut # (Auto) (2.0 - 7.6 K/mm3) 4.92 / 0510 Lymph # (Auto) (1.0 - 3.8 K/mm3) 1.57 12/15 0510 Cochran # (Auto) (0.1 - 0.8 K/mm3) 0.87 [...] to: Home/Self CareAdditional Discharge Routines: PCP Follow-Up, Rat Trapper Follow-UpDiet: Resume Home Diet/FeedsActivity: Resume Normal Activity, [...] pt request at 1525 at 1640 RPT #:[id number] OF REPORTDSDischarge mstlkem7657-59-88J59:41:00Z.APHN09520564-6267RXSc ailable for patient pxwkPYZVNMCVABFWCJ5527-32-11M70:25:28 [facility] 2021-12-15 12:52:00 Y86443-78648465wd48a H3FiXzqePy1JapC4LeTXvHaAOIWBb m98cohHKeodpk4UlVXtRBg3y7yq2FK6789-73-64K95:52:00 4335-5462 [place] [address] PATIENT NAME: CHARLIE HART ADMIT DATE: 12/13/21ACCOUNT NO: [id number] ROOM NO: Z.350 AGE: 86 REPORT TYPE: ELECTROCARDIOGRAM SEX: M ADMITTING PHYSICIAN:Alvaro Ron MD ATTENDING PHYSICIAN:Alvaro Ron MD Order:[id number] Reason : AV BLOCK Test Date/Time Stamp:Sat [...] CELIS at 1656 PATIENT NAME: CHARLIE HART .[id number] AVAvailable for patient pyvkRMSQCOMVZMTASF4511-47-20L78:56:47 [facility] 2021-12-15 12:52:00 X97250-16354445i3Gzg usvqHFUMVLQv0UwKN8aJRFycw3cat XS6iQ+37e+3XYyT4Ip07trrw6xj8bI9735-64-10T14:52:00 6671-[address] [address] PATIENT NAME: CHARLIE HART ADMIT DATE: 12/13/21ACCOUNT NO: [id number] ROOM NO: Z.350 AGE: 86 REPORT TYPE: ELECTROCARDIOGRAM SEX: M ADMITTING PHYSICIAN:Alvaro Ron MD ATTENDING PHYSICIAN:Alvaro Ron MD Order:[id number] Reason : AV BLOCK Test Date/Time Stamp:Sat [...] CELIS at 1446 PATIENT NAME: CHARLIE HART .[id number] AVAvailable for patient whbaPTZUFFZBWVFEDH3919-36-57I10:46:22 [facility] 2021-12-15 12:19:00 O18865-171190856hKZg +/+gVI6g1KeQZFzSLR855VbeS+cIu FUV2+OcGCkxEI93e2j7f19bKuXORIi9633-72-61O24:19:00 3761-8640 [place] [address] PATIENT NAME: CHARLIE HART ADMIT DATE: 12/13/21ACCOUNT NO: [id number] ROOM NO: Z350 AGE: 86 REPORT TYPE: ELECTROCARDIOGRAM SEX: M ADMITTING PHYSICIAN:Alvaro Ron MD ATTENDING PHYSICIAN:Alvaro Ron MD Order:[id number] Reason : AV Block Test Date/Time Stamp:FriDec [...] 4:55:08 PM Referred By: Self Referred Confirmed by:DYEVI CELIS at 1655 PATIENT NAME: CHARLIE HART .[id number] AVAvailable for patient vehgDWYZZUNLXXVHLE5116-40-04V99:55:27 [facility] 2021-12-15 12:19:00 [id number] zViAt6MNwprRpyjKR2fNjjwUdg2Rl sL1KVXaAAUbUNMLTbuj1DVFWpY6XkB3153-80-48O07:19:00 1643-7933 [place] [address] PATIENT NAME: CHARLIE HART ADMIT DATE: 12/13/21ACCOUNT NO: [id number] ROOM NO: [facility] AGE: 86 REPORT TYPE: ELECTROCARDIOGRAM SEX: M ADMITTING PHYSICIAN:Alvaro Ron MD ATTENDING PHYSICIAN:Alvaro Ron MD Order:[id number] Reason : AV Block Test Date/Time Stamp:FriDec [...] CELIS at 1446 PATIENT NAME: CHARLIE HART .[id number] AVAvailable for patient ucxwPYVGSERFQTTCCR2968-48-88L69:46:33 [facility] 2021-12-15 12:16:00 T33489-36970154IbwuE +5omSsxA6uN3JA4MmOXtS5ugwUQwm ySFDBtylEyNkqtuR3P40JJ2CPR2Gt75894-79-14M84:16:00 6064-[address] [address] PATIENT NAME: CHARLIE HART ADMIT DATE: 12/13/21ACCOUNT NO: [id number] ROOM NO: [facility] AGE: 86 REPORT TYPE: ELECTROCARDIOGRAM SEX: M ADMITTING PHYSICIAN:Alvaro Ron MD ATTENDING PHYSICIAN:Alvaro Ron MD Order:[id number] Reason : S/P PPI Test Date/Time Stamp:FriDec [...] CELIS at 1654 PATIENT NAME: CHARLIE HART .[id number] AVAvailable for patient riwfMVACBFSHBNEUQC5393-33-34C73:55:07 [facility] 2021-12-15 12:16:00 D51140-129588471kENf jdlh5Ys/uTJTxw3v8L+mf1GWczOr7 4/v9OiZED0w1BmBaKUaQ6pO8/ndJD42136-17-43Y02:16:00 6235-[address] [address] PATIENT NAME: CHARLIE HART ADMIT DATE: 12/13/21ACCOUNT NO: [id number] ROOM NO: [facility] AGE: 86 REPORT TYPE: ELECTROCARDIOGRAM SEX: M ADMITTING PHYSICIAN:Alvaro Ron MD ATTENDING PHYSICIAN:Alvaro Ron MD Order:[id number] Reason : S/P PPI Test Date/Time Stamp:FriDec [...] CELIS at 1446 PATIENT NAME: CHARLIE HART .[id number] AVAvailable for patient qewvRLMDPMWOWDDABS8890-10-12S64:46:33 [facility] 2021-12-15 11:40:00 I90861-58713160i/c9f hobiktt4IeTsOK/SfliTIHx+nKcLf xljAz1WR5vJMMgqRngbtEsBJO3Xlr+6742-99-43G23:40:00 6873-[address] [address] PATIENT NAME: CHARLIE HART ADMIT DATE: 12/13/21ACCOUNT NO: [id number] ROOM NO: Z.350 AGE: 86 REPORT TYPE: CARDIAC CATHETERIZATION REPORT SEX: M ADMITTING PHYSICIAN:Alvaro Ron MD ATTENDING PHYSICIAN:Alvaro Ron MD PROCEDURE DATE: 12/15/2021 INDUSTRIAL TRUCK MECHANIC: Deyvi Celis MD TITLE OF THE PROCEDURE: [...] chart. Dictated By: Deyvi Celis MD WT: CATH:ASHU/DANIEL/NTSDD: 12/15/2021 11:40:13DT: 12/15/2021 11:44:31Conf#: [id number]/DID#: [id number] Authenticated by Deyvi Celis MD On 12/15/2021 11:54:46 AM at 1154 PATIENT NAME: CHARLIE HART swvn6803-73-68J06:44:00Z.FDI70323153-0320DKNorwql ble for patient ymvuMHRKEWSSSPJRJT9852-65-16E32:55:16 [facility] 2021-12-15 08:47:00 K22382-76499955k+YJL JgKEgeiVFsneyX/u//uRVto2SpdE+ GWdxqURvhdCB2CIeOxyBs+Xl8VHG2a7930-99-43F00:47:00 [facility] CampusHospitalist Progress NoteREPORT#:[id number] REPORT STATUS: SignedDATE:12/15/21 TIME: 0847 PATIENT: CHARLIE HART UNIT #: [id number]#: [id number] [facility] AGE: 86 SEX: M ATTEND: [...] all, no clubbing, no cyanosis, R hand motor hotel manager mildly lowerMusculoskeletal: normal inspection, no muscle spasmNeuro/BICYCLE SUBASSEMBLER: alert, oriented X 3, no motor deficitsSkin: [...] % (Auto) (14 - 44 %) 20.5 Cochran % (Auto) (4 - 13 %) 11.4 Eos % (Auto) (0 - 6 %) 3.0 Baso % (Auto) (0 - 2 %) 0.7 Neut # (Auto) (2.0 - 7.6 K/mm3) 4.92 Lymph # (Auto) (1.0 - 3.8 K/mm3) 1.57 Cochran # (Auto) (0.1 - 0.8 K/mm3) 0.87 [...] post PM at 1311 at 1604 RPT #:[id number] OF REPORTPRProgress twig2764-51-64C78:47:00Z.YDZD40396814-5450NUWnfez able for patient ejbvYXASQJHQTLMIFO0372-37-60B06:12:09 [facility] 2021-12-15 08:08:00 J84359-823500190fcqx 6XhRQSQGPb1bElztYPeQbA+DobKob qlHdHqKp8dVBl0bkdOpfFj1/rnSRf92324-00-10S24:08:00 4495-5247 [place] [address] PATIENT NAME: CHARLIE HART ADMIT DATE: 12/13/21ACCOUNT NO: [id number] ROOM NO: [facility] AGE: 86 REPORT TYPE: ELECTROCARDIOGRAM SEX: M ADMITTING PHYSICIAN:Alvaro Ron MD ATTENDING PHYSICIAN:Alvaro Ron MD Order:[id number] Reason : AV Block Test Date/Time Stamp:FriDec [...] CELIS at 1025 PATIENT NAME: CHARLIE HART .[id number] AVAvailable for patient ohpiAYSIDKXRMJUBQC7359-20-84G58:25:21 [facility] 2021-12-15 08:08:00 C35429-21974850QPiE4 +t7gMbzwhsWbdlDn6Kx1Qfk0YxXG0 81LXZpGCvhKVRjbygM+gGyhCtXDshT8692-09-48T88:08:00 6302-6883 [place] [id number] PATIENT NAME: CHARLIE HART ADMIT DATE: 12/13/21ACCOUNT NO: [id number] ROOM NO: [facility] AGE: 86 REPORT TYPE: ELECTROCARDIOGRAM SEX: M ADMITTING PHYSICIAN:Alvaro Ron MD ATTENDING PHYSICIAN:Alvaro Ron MD Order:[id number] Reason : AV Block Test Date/Time Stamp:FriDec [...] CELIS at 1446 PATIENT NAME: CHARLIE HART .[id number] AVAvailable for patient mhrnVBMONHBASXUJGM2615-93-52D19:46:53 [facility] 2021-12-15 05:30:00 Q61767-34924752fyJ9t NWGdFiD2u9icXz+Kse6cloWbZ6DvK EfiEP2hq+f0cpAYMw39vaQuxXmVZJe5232-12-01L44:30:00 [facility] ([facility])Cardiology Progress NoteREPORT#:[id number] REPORT STATUS: SignedDATE:12/15/21 TIME: 529 PATIENT: CHARLIE HART UNIT #: [id number]#: [id number] [facility] AGE: 86 SEX: M ATTEND: Alvaro Ron [facility] AUTHOR: Deyvi Celis MD * ALL edits [...] 2321 28 12/14 2221 29 25 100 12/141 31 107/50 72 97 12/140 2 12/141 25 19 98 12/14 2100 27 19 115/58 84 100 12/14 2000 27 20 105/55 76 97 12/146 27 20 112/54 78 92 12/15 1951 98.4 12/14 1921 29 26 89 12/14 1430 31 20 107/55 72 98 12/14 1122 29 20 128/56 80 99 12/14 0959 98.3 29 18 119/55 76 98 Room air 12/14 0826 33 20 165/70 101 99 PATIENT WEIGHT: [...] edema, 2+ peripheral pulsesMusculoskeletal: full range of motionNeuro/BICYCLE SUBASSEMBLER: alert, oriented X 3, CN II-XII intact, [...] % (Auto) (14 - 44 %) 20.5 Cochran % (Auto) (4 - 13 %) 11.4 Eos % (Auto) (0 - 6 %) 3.0 Baso % (Auto) (0 - 2 %) 0.7 Neut # (Auto) (2.0 - 7.6 K/mm3) 4.92 Lymph # (Auto) (1.0 - 3.8 K/mm3) 1.57 Cochran # (Auto) (0.1 - 0.8 K/mm3) 0.87 [...] pt willing to proceed. at 0753 RPT #:[id number] OF REPORTPRProgress ittr9174-08-38T58:30:00Z.LRPU18231128-0491ONKqwez able for patient duyoCOEYVSYAMECPWN7479-80-69Y03:53:54 [facility] 2021-12-14 13:44:00 [id number] dRHwtXMYKuRHGLg4MdldPijUpNJVZ 7QIpOonwOTm6L0FYq6Fhipn4vOeCQv9533-82-64C17:44:00 2949-2312 [place] [address] PATIENT NAME: CHARLIE HART ADMIT DATE: 12/13/21ACCOUNT NO: [id number] ROOM NO: [facility] AGE: 86 REPORT TYPE: ECHOCARDIOGRAM SEX: M ADMITTING PHYSICIAN:Alvaro Ron MD ATTENDING PHYSICIAN:Alvaro Ron MD *[facility]*[address] [place], [place] [address]Phone Transthoracic Echocardiogram Patient: Charlie HartStudy Date: 12/14/2021 BP: 163 / 69 Location: [facility]: [id number] : 1935 Age: 86 Height: 68 in / 172.7 cmAccession#: [id number] Gender: M Weight: 190 lb / 86.4 kgBMI/BSA: 28.9 kg/m 2 / 2.06 m 2 *Ordering Physician: * Deyvi Celis MD *Interpreting Physician: * Deyvi Celis MD*Archeology Faculty Member: * Carmina Peralta [facility], T Indications: Hypertension. Study data: Transthoracic echocardiogram. Procedure: Transthoracicechocardiography was performed. Images were obtained using a Luristic cardiacultrasound machine. Image quality was suboptimal. M-mode, [...] cm 2 --------- Pulmonic valve Value Ref WA v, ED 0.34 m/sec --------- Tricuspid valve [...] at 1344 PATIENT NAME: CHARLIE HART :44:0 0Z.[id number] for patient pgnyIOZREFYKJEJSBR0921-37-56D70:44:31 [facility] 2021-12-14 08:13:00 [id number] 0Hm5faQBqhCwY5auJh92p2Xj28rG4 b3dFGXa4gPHRebseV3IkqO03Aq9qOt8824-89-62T42:13:00 [facility] Allianceist Progress NoteREPORT#:[id number] REPORT STATUS: SignedDATE:12/14/21 TIME: 08 PATIENT: CHARLIE HART UNIT #: [id number]#: [id number] [address] AGE: 86 SEX: M ATTEND: Alvaro Ron [facility] AUTHOR: Allen Rausch MD R1 * ALL [...] all, no clubbing, no cyanosis, R hand motor hotel manager mildly lowerMusculoskeletal: normal inspection, no muscle spasmNeuro/BICYCLE SUBASSEMBLER: alert, oriented X 3, no motor deficitsSkin: [...] (Auto) (14 - 44 %) 22.3 26.6 Cochran % (Auto) (4 - 13 %) 8.9 9.8 Eos % (Auto) (0 - 6 %) 2.6 3.0 Baso % (Auto) (0 - 2 %) 0.6 0.7 Neut # (Auto) (2.0 - 7.6 K/mm3) 4.46 4.45 Lymph # (Auto) (1.0 - 3.8 K/mm3) 1.52 1.98 Cochran # (Auto) (0.1 - 0.8 K/mm3) 0.61 [...] PPX: LovenoxCode Status: Full Code Quality: [facility] Crit Care VTE ProphylaxisVTE prophylaxis initiated: yes Current MedicationsCurrent medication review:I attest that the foregoing medication list in the medical record is true, accurate, and complete to the best of my knowledge. Advanced Care Plan 65 or OlderDiscussed with: patientDiscussion included: code status AttestationsAttestation needed: teaching physician Alvaro Ron 12/14/21 2674:Attestations Teaching Physician AttestationF/U visit w/ resident:I saw the patient with the resident and . . . agree with the resident's findings and plan. at 1633 at 1724 RPT #:[id number] OF REPORTPRProgress wqbc9474-17-14H78:13:00Z.ZTSB58321549-6820NMDdovn able for patient knyiJKXWSOGJSXNBAI6445-81-75L28:34:06 [facility] 2021-12-14 06:39:00 [id number] 9BwpeZu3fNy+tldGXOkRY/abs7Q8x F7c0TWKylhqocdLsSmxFbqYxapB54H6493-80-28C62:39:00 [facility])Cardiology Progress NoteREPORT#:[id number] REPORT STATUS: SignedDATE:12/14/21 TIME: 638 PATIENT: CHARLIE HART UNIT #: [id number]#: [id number] [address] AGE: 86 SEX: M ATTEND: Alvaro Ron [facility] AUTHOR: Kyree Noble MD * ALL edits [...] LE assessment: no edemaMusculoskeletal: full range of motionNeuro/BICYCLE SUBASSEMBLER: alert, oriented X 3, CN II-XII intactSkin: [...] % (Auto) (14 - 44 %) 26.6 Cochran % (Auto) (4 - 13 %) 9.8 Eos % (Auto) (0 - 6 %) 3.0 Baso % (Auto) (0 - 2 %) 0.7 Neut # (Auto) (2.0 - 7.6 K/mm3) 4.45 Lymph # (Auto) (1.0 - 3.8 K/mm3) 1.98 Cochran # (Auto) (0.1 - 0.8 K/mm3) 0.73 [...] will proceed with permanent pacing. at 0902 [facility] #:[id number] OF REPORTPRProgress goiz6037-47-44N97:39:00Z.JEBV48992976-9069TMEtzqk able for patient niseJBYSCRVIXAPVXE4668-19-82D28:02:43 [facility] 2021-12-13 18:41:00 B22817-52955931lshMb iDxqCNpCwcjcYpwO8A179ZIC/DELI GVElrU1pyTiC8aZ2HJI1Kr2tNwgZ142672-54-40R41:41:00 9070-0147 [place] [address] PATIENT NAME: CHARLIE HART ADMIT DATE: 12/13/21ACCOUNT NO: [id number] ROOM NO: [facility] AGE: 86 REPORT TYPE: CONSULTATION REPORT SEX: M ADMITTING PHYSICIAN:Alvaro Ron MD ATTENDING PHYSICIAN:Alvaro Ron MD CONSULTATION DATE: 12/13/2021 CONSULTING PHYSICIAN: Kyree Noble MD REFERRING PHYSICIAN: Alvaro Ron MD REASON FOR CONSULTATION: We were asked to evaluate this patient for syncope. HISTORY OF PRESENT ILLNESS: This is an 86-year-old male with a history ofhypertension and dyslipidemia, who was transferred [facility] after he presented there for an [...] MD WT: CON:SANDEE/TAYE/NTSDD: 12/13/2021 18:41:17DT: 12/13/2021 23:15:56Conf#: [id number]/DID#: [id number] Authenticated by Kyree Noble MD On 12/14/2021 06:49:14 AM at 0649 PATIENT NAME: CHARLIE HART :15:00Z.SC [id number] for patient pnsbFYIVMSIWFRODKJ6340-75-93W08:50:02 [facility] 2021-12-13 17:18:00 N15601-73687043N2bB9 f759E0kOPW5tPsYfjrk6NK87DIm8d 6plQxwyfhX9+FCRz3KluV06DwGIy8Z1907-65-07E88:18:00 [facility] Allianceist History PhysicalREPORT#:[id number] REPORT STATUS: SignedDATE:12/13/21 TIME: 1718 PATIENT: CHARLIE HART UNIT #: [id number]#: [id number] [address] AGE: 86 SEX: M ATTEND: Alvaro Ron MDA AUTHOR: Alvaro Ron MD * ALL edits or amendments must be made on the electronic/computer document * History of Present Illness HPIChief complaint:transfer for low HRPCP:PCP: Dr Celis HPI:THis is a 86 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 H/O 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, HTN on plavix,imdur, atorvastatin [...] all, no clubbing, no cyanosis, R hand motor hotel manager mildly lowerMusculoskeletal: normal inspection, no muscle spasmNeuro/BICYCLE SUBASSEMBLER: alert, oriented X 3, no motor deficitsSkin: [...] % (Auto) (14 - 44 %) 26.6 Cochran % (Auto) (4 - 13 %) 9.8 Eos % (Auto) (0 - 6 %) 3.0 Baso % (Auto) (0 - 2 %) 0.7 Neut # (Auto) (2.0 - 7.6 K/mm3) 4.45 Lymph # (Auto) (1.0 - 3.8 K/mm3) 1.98 Cochran # (Auto) (0.1 - 0.8 K/mm3) 0.73 [...] ordered: yes susp.cardiac etiology at 2126 RPT #:[id number] OF REPORTHPHistory and physical auzttpsnqkh6728-31-20S84:18:00Z.PDIP49952432-2423 AVAvailable for patient okwmCVEMHCRJYFWFMD6683-50-56U04:26:24 [facility] 2021-12-13 17:00:00 [id number] IPlTZf/tUg5VN2eH8JF213F6jFTis v3zwSCpmozWREEpry8LP7CYahtHRJe2920-21-23B19:00:00 [facility] ([facility])EMERGENCY PROVIDER REPORTREPORT#:[id number] REPORT STATUS: SignedDATE:12/13/21 TIME: 1700 PATIENT: CHARLIE HART UNIT #: [id number]#: [id number] ROOM/BED: [place]-1AGE: 86 SEX: M PCP PHYS: No Primary or Family PhysicianSERVICE AUTHOR: Thanh Peralta MD [facility] * ALL edits or amendments must be [...] History - AdultStated Complaint ER TRANSFER FROM [place], [address] BLOCKAllergiesCoded Allergies:No Known Allergies (12/13/21) [...] 1647 Pulse 34 12/13 1647 Resp 12/13 Review of Vital Signs Reviewed Free Text [...] Call Information will see patient at 1219RPT #:[id number] OF REPORTEDEmerbaptist health [facility] department cssgem3688-20-59H87:00:00Z.GFHU83694423-4680VBUjk iaable for patient mdigXFFKKOOCNEXPPW6666-42-61R65:20:06 [facility]
--- NOTE | 2023-10-05 12:14 | RAD REPORT ---
EXAM DESCRIPTION: RAD - Hip Left 2 View - 10/05/2023 12:06 pm CLINICAL HISTORY: Left hip pain FINDINGS: No fracture or dislocation is seen. Left hip prosthesis is in good position without evidence of loosening. Osteoporosis
[2023-10-05 12:44] LABS: Absolute Basophils 0.1 K/uL (0-0.5); Basophils % 0.7 % (0-1.3); Eosinophils % 0.2 % (0-4.4); Hematocrit 28.3 % (39.6-49.0); Lymphocytes % 10.3 % (15.3-44.8); MCV 95.3 fL (80-100); MPV 6.9 fL (7.6-11.3); Platelets 277 thou/uL (152-406); RBC Red Blood Cell Count 2.97 M/uL (4.33-5.43)
[2023-10-05 12:59] LABS: Albumin 2.2 g/dL (3.4-5.0); Albumin/Globulin Ratio 0.6 (1.1-1.8); Anion Gap 9.5 mEq/L (5.0-15.0); Bilirubin Total 0.9 mg/dL (0.2-1.0); Globulin 3.9 g/dL (2.3-3.5); Potassium 4.5 mEq/L (3.5-5.1); Protein, Total 6.1 g/dL (6.4-8.2)
[2023-10-05 13:30] LABS: Anisocytosis 1+; Blood Morphology Comment NOTED (NOT SEEN); Platelet Estimate ADEQ; White Blood Cell Scan OK (OK)
--- NOTE | 2023-10-05 13:54 | RAD REPORT ---
EXAM DESCRIPTION: CT - Hip Left Wo Con - 10/05/2023 1:34 pm CLINICAL HISTORY: Left hip pain COMPARISON: August 2023 TECHNIQUE: Computed axial tomography left hip obtained with coronal and sagittal reconstruction. All CT scans are performed using dose optimization technique as appropriate and may include automated exposure control or mA/KV adjustment according to patient size. FINDINGS: A left hip prosthesis in place. No fracture or dislocation. Large amount stool within the rectum/colon Fluid collection posterior to the proximal left femur 10 x 5 x 8 centimeters (cc by AP by trans.) Jana nsfield unit 56 compatible with blood IMPRESSION: No fracture or dislocation is seen 10 x 5 x 8 centimeters hematoma posterior to the proximal left femur
--- NOTE | 2023-10-05 14:44 | ER ---
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 Coronavirus screen: At this time, the client does not indicate any symptoms associated with coronavirus-19. Ebola Screen: No symptoms or risks identified at this time. Initial Sepsis Screen: Does the patient meet any 2 criteria? No. Patient's initial sepsis screen is negative. Does the patient have a suspected source of infection? No. Patient's initial sepsis screen is negative. Risk Assessment: Do you want to hurt yourself or someone else? Patient reports no desire to harm self or others. Onset of symptoms was October 05, 2023. Transition of care: patient was received from another setting of care (long-term care facility), [facility]. 11:50 Method Of Arrival: EMS: [facility] ko1 11:50 Acuity: CLAUDINE 3 ko1 Triage Assessment: 11:50 General: Appears in no apparent distress. uncomfortable, Behavior is calm, cooperative, ko1 appropriate for age. Historical: - Allergies: 12:03 No Known Allergies; ko1 - Home Meds: 12:03 amiodarone 200 mg Oral tablet 2 times per day [Active]; apixaban 5 mg Oral tablet 2 ko1 times per day [Active]; atorvastatin 80 mg Oral tablet every evening [Active]; ascorbic acid (vitamin C) 500 mg tablet daily [Active]; ferrous sulfate 325 mg (65 mg iron) Oral tablet daily [Active]; methocarbamol 500 mg Oral tablet every 8 hours [Active]; metoprolol succinate oral 12.5 mg daily [Active]; Plavix 75 mg Oral tablet daily [Active]; tramadol 50 mg Oral tablet 2 times per day [Active]; - PMHx: 12:03 CAD; chronic kidney disease; CVA; GERD; Hypertension; Hyperlipidemia; macular ko1 degeneration; osteoarthritis; Pre-Diabetes; Prostate Cancer; stroke; West Nile Virus; - PSHx: 12:03 bilateral knee replacement; cataract repair; Cholecystectomy; hip/shoulder replacement; ko1 pacemaker; - Immunization history:: Adult Immunizations up to date. - Social history:: Smoking status: Patient denies any tobacco usage or history of. - Family history:: not pertinent. Screenin:03 [facility] ED Fall Risk Assessment (Adult) History of falling in the last 3 months, ko1 including since admission Yes- single mechanical fall (1 pt) Confusion or Disorientation No (0 pts) Intoxicated or Sedated No (0 pts) Impaired Gait Yes (1 pt) Mobility Assist Device Used Yes (1 pt) Altered Elimination Yes (1 pt) Score/Fall Risk Level 3 or more points = High Risk Oriented to surroundings, Maintained a safe environment, Educated pt \T\ family on fall prevention, incl call for assistance when getting out of bed, Assessed \T\ reinforced patient's understanding of fall precautions, Provided non-skid footwear, Hourly rounding (assess needs \T\ fall precautionary measures) done, Used ambulatory aids as needed (educated on \T\ assisted with), Used gait belt as appropriate Implemented a Fall Risk Plan of Care, Apply high fall risk patient identification: yellow non skid footwear/ fall signage, Remained w/in arm's length of patient and in sight while toileting, Offered frequent toileting (1:1 observation), Remained with patient while ambulating, Utilized family, sitter, or virtual industrial equipment wirer as indicated. Abuse screen: Denies threats or abuse. Denies injuries from another. Nutritional screening: No deficits noted. Tuberculosis screening: No symptoms or risk factors identified. Assessment: 11:45 General: Appears in no apparent distress. Behavior is calm, cooperative, appropriate ko1 for age. Pain: Complains of pain in left hip. Neuro: No deficits noted. Cardiovascular: Rhythm is ventricular pacer. Respiratory: No deficits noted. GI: No deficits noted. : No deficits noted. EENT: hard of hearing. Derm: No deficits noted. Musculoskeletal: Circulation, motion, and sensation intact. Range of motion: limited in left hip Bony deformity noted of left hip. Injury Description: Deformity sustained to left hip is displaced. 15:04 Reassessment: Report called to Jenni at [facility]. ko1 15:38 Reassessment: awaiting transportation, per daughter mckinley flores said they would be ko1 here in 1 hour after they told her to bring him back in her car and they were informed he could not do that. 16:54 Reassessment: transport showed up with a wheelchair and a van, spoke with facility ko1 cloud administrator and informed her that two different people had been told he had to go on a stretcher, she said that the information had not been relayed. Informed daughter to call for ambulance transport since [facility] would not set it up. 17:15 Reassessment: daughter called and ambulance transport will be here in 45 minutes. ko1 18:07 Reassessment: [facility] here to transport patient. ko1 Vital Signs: 12:03 BP 93 / 60; Pulse 84; Resp 15; Temp 98; Pulse Ox 98% on R/A; ko1 13:02 BP 113 / 71; Pulse 82; Resp 15; Pulse Ox 98% on R/A; ko1 13:19 BP 122 / 69; Pulse 82; Resp 14; Pulse Ox 99% ; ko1 14:05 BP 129 / 66; Pulse 82; Resp 15; Pulse Ox 98% ; ko1 18:07 BP 118 / 60; Pulse 84; Resp 15; Pulse Ox 99% ; ko1 [place] Coma Score: 12:03 Eye Response: spontaneous(4). Motor Response: obeys commands(6). Verbal Response: ko1 oriented(5). Total: 15. Trauma Score (Adult): 12:03 Eye Response: spontaneous(1); Verbal Response: oriented(1); Motor Response: obeys ko1 commands(2); Systolic BP: > 89 mm Hg(4); Respiratory Rate: 10 to 29 per min(4); Yady Score: 15; Trauma Score: 12 ED Course: 11:46 Patient arrived in ED. ds4 11:48 Wally Arias MD is Attending Physician. oral 11:50 Arm band placed on right wrist. Patient placed in an exam room, on a stretcher, on ko1 ekg monitor, on pulse oximetry, Patient notified of wait time. 11:56 Carmina Gibson, RN is Primary Nurse. ko1 12:03 Patient has correct armband on for positive identification. Placed in gown. Bed in low ko1 position. Call light in reach. Side rails up X2. Provided Education on: na. Client placed on continuous cardiac and pulse oximetry monitoring. NIBP monitoring applied. cafeteria monitor on. Door closed. Noise minimized. Lights dimmed. Warm blanket given. 12:03 No provider procedures requiring assistance completed. ko1 12:07 Hip Left 2 View XRAY In Process Unspecified. EDMS 12:57 Triage completed. ko1 13:36 Hip Left Wo Con In Process Unspecified. EDMS 14:40 Charlie Patton MD is Referral Physician. oral 15:04 Awaiting transportation. ko1 15:04 IV discontinued, intact, bleeding controlled, No redness/swelling at site. Pressure ko1 dressing applied. Administered Medications: 12:54 Drug: NS 0.9% IV 1000 ml IV at 125 ml/hr continuous Route: IV; Rate: 125 ml/hr; Site: ko1 left forearm; 15:00 Follow up: IV Status: Completed infusion; IV Intake: 150ml ko1 15:39 Follow up: Response: No adverse reaction ko1 12:54 Drug: Ondansetron IVP 4 mg IVP once; over 2 minutes Route: IVP; Site: left forearm; ko1 13:21 Follow up: Response: No adverse reaction ko1 14:54 Follow up: Response: No adverse reaction ko1 15:29 Not Given (Physician Discretion): [id number] mg IVP once; hold ko1 15:30 Not Given (Physician Discretion): midazolamor iv 2 mg IVP once; hold ko1 15:30 Not Given (Physician Discretion): [id number] mg IVP once; hold ko1 18:09 Drug: Hydrocodone-Acetaminophen PO (7.5 mg-325 mg) 1 tabs PO once Route: PO; ko1 18:10 Follow up: Response: No adverse reaction; Pain is decreased ko1 Medication: 12:03 VIS not applicable for this client. ko1 Intake: 15:00 IV: 150ml; Total: 150ml. ko1 Output: 14:31 Stool: 1 (Formed Stool) ; Total: 0ml. ko1 Outcome: 14:44 Discharge ordered by . oral 18:07 [facility] to [facility] Report called to [facility] Transfer form completed. ko1 18:07 Condition: stable 18:07 Discharge instructions given to family, EMS, Instructed on discharge instructions, follow up and referral plans. Demonstrated understanding of instructions, follow-up care, 18:09 Patient left the ED. ko1 Signatures: Dispatcher [employer] EDWally Ohara MD MD cha Swanson, Donovan ds4 Carmina Gibson, RN RN ko1 Corrections: (The following items were deleted from the chart) 15:02 11:50 Transition of care: patient was received from another setting of care (long-term [facility] care facility), [facility] ko1 16:57 15:38 Reassessment: awaiting transportation, [facility] said they would be here in ko1 1 hour ko1
--- NOTE | 2023-10-05 14:45 | EDPHYS ---
Physician Documentation [facility] Name: Charlie Hart Age: 88 yrs Sex: Male : 1935 Arrival Date: 10/05/2023 Time: 11:44 Bed 7 Private MD: ED Physician Wally Arias HPI: 10/04 13:10 This 88 yrs old Male presents to ER via EMS with complaints of Disocated Hip. oral 13:10 The patient or guardian reports decreased range of motion, an injury, pain, possible oral dislocation, swelling. that occurred at a half-way or assisted living facility. The complaints affect the left hip and left upper thigh. Modifying factors: The symptoms are alleviated by remaining still, the symptoms are aggravated by nothing. Associated signs and symptoms: Loss of consciousness: the patient experienced no loss of consciousness. The patient has experienced similar episodes in the past, multiple times. Historical: - Allergies: 12:03 No Known Allergies; ko1 - Home Meds: 12:03 amiodarone 200 mg Oral tablet 2 times per day [Active]; apixaban 5 mg Oral tablet 2 ko1 times per day [Active]; atorvastatin 80 mg Oral tablet every evening [Active]; ascorbic acid (vitamin C) 500 mg tablet daily [Active]; ferrous sulfate 325 mg (65 mg iron) Oral tablet daily [Active]; methocarbamol 500 mg Oral tablet every 8 hours [Active]; metoprolol succinate oral 12.5 mg daily [Active]; Plavix 75 mg Oral tablet daily [Active]; tramadol 50 mg Oral tablet 2 times per day [Active]; - PMHx: 12:03 CAD; chronic kidney disease; CVA; GERD; Hypertension; Hyperlipidemia; macular ko1 degeneration; osteoarthritis; Pre-Diabetes; Prostate Cancer; stroke; West Nile Virus; - PSHx: 12:03 bilateral knee replacement; cataract repair; Cholecystectomy; hip/shoulder replacement; ko1 pacemaker; - Immunization history:: Adult Immunizations up to date. - Social history:: Smoking status: Patient denies any tobacco usage or history of. - Family history:: not pertinent. ROS: 13:10 Constitutional: Negative for fever, chills, and weight loss, Eyes: Negative for injury, oral pain, redness, and discharge, ENT: Negative for injury, pain, and discharge, Neck: Negative for injury, pain, and swelling, Cardiovascular: Negative for chest pain, palpitations, and edema, Respiratory: Negative for shortness of breath, cough, wheezing, and pleuritic chest pain, Abdomen/GI: Negative for abdominal pain, nausea, vomiting, diarrhea, and constipation, Back: Negative for injury and pain, : Negative for injury, bleeding, discharge, and swelling, Skin: Negative for injury, rash, and discoloration, Neuro: Negative for headache, weakness, numbness, tingling, and seizure, Psych: Negative for depression, anxiety, suicide ideation, homicidal ideation, and hallucinations, Allergy/Immunology: Negative for hives, rash, and allergies, Endocrine: Negative for neck swelling, polydipsia, polyuria, polyphagia, and marked weight changes, Hematologic/Lymphatic: Negative for swollen nodes, abnormal bleeding, and unusual bruising, 13:10 MS/extremity: Positive for injury or acute deformity, decreased range of motion, pain, swelling, tenderness, of the left hip, left gluteal fold, left inner thigh and left upper thigh, Exam: 13:10 Constitutional: This is a well developed, well nourished patient who is awake, alert, oral and in no acute distress. Head/Face: Normocephalic, atraumatic. Eyes: Pupils equal round and reactive to light, extra-ocular motions intact. Lids and lashes normal. Conjunctiva and sclera are non-icteric and not injected. Cornea within normal limits. Periorbital areas with no swelling, redness, or edema. ENT: Nares patent. No nasal discharge, no septal abnormalities noted. Tympanic membranes are normal and external auditory canals are clear. Oropharynx with no redness, swelling, or masses, exudates, or evidence of obstruction, uvula midline. Mucous membranes moist. Neck: Trachea midline, no thyromegaly or masses palpated, and no cervical lymphadenopathy. Supple, full range of motion without nuchal rigidity, or vertebral point tenderness. No Meningismus. Chest/axilla: Normal chest wall appearance and motion. Nontender with no deformity. No lesions are appreciated. Cardiovascular: Regular rate and rhythm with a normal S1 and S2. No gallops, murmurs, or rubs. Normal PMI, no JVD. No pulse deficits. Respiratory: Lungs have equal breath sounds bilaterally, clear to auscultation and percussion. No rales, rhonchi or wheezes noted. No increased work of breathing, no retractions or nasal flaring. Abdomen/GI: Soft, non-tender, with normal bowel sounds. No distension or tympany. No guarding or rebound. No evidence of tenderness throughout. Back: No spinal tenderness. No costovertebral tenderness. Full range of motion. Male : Normal genitalia with no discharge or lesions. Skin: Warm, dry with normal turgor. Normal color with no rashes, no lesions, and no evidence of cellulitis. Neuro: Awake and alert, GCS 15, oriented to person, place, time, and situation. Cranial nerves II-XII grossly intact. Motor strength 5/5 in all extremities. Sensory grossly intact. Cerebellar exam normal. Normal gait. Psych: Awake, alert, with orientation to person, place and time. Behavior, mood, and affect are within normal limits. 13:10 Musculoskeletal/extremity: Extremities: grossly normal except: decreased ROM, pain, ROM: limited active range of motion, limited passive range of motion, Circulation is intact in all extremities. Sensation intact. Compartment Syndrome exam of affected extremity: is normal. Joints: All joints are normal except the left hip displays limited range of motion, pain at rest, painful range of motion, tenderness, Weight bearing: is unable to bear weight, DVT Exam: swelling, tenderness, that is moderate, Vital Signs: 12:03 BP 93 / 60; Pulse 84; Resp 15; Temp 98; Pulse Ox 98% on R/A; ko1 13:02 BP 113 / 71; Pulse 82; Resp 15; Pulse Ox 98% on R/A; ko1 13:19 BP 122 / 69; Pulse 82; Resp 14; Pulse Ox 99% ; ko1 14:05 BP 129 / 66; Pulse 82; Resp 15; Pulse Ox 98% ; ko1 18:07 BP 118 / 60; Pulse 84; Resp 15; Pulse Ox 99% ; ko1 Yady Coma Score: 12:03 Eye Response: spontaneous(4). Motor Response: obeys commands(6). Verbal Response: ko1 oriented(5). Total: 15. Trauma Score (Adult): 12:03 Eye Response: spontaneous(1); Verbal Response: oriented(1); Motor Response: obeys ko1 commands(2); Systolic BP: > 89 mm Hg(4); Respiratory Rate: 10 to 29 per min(4); [place] Score: 15; Trauma Score: 12 MDM: 11:52 Patient medically screened. [facility] 13:13 Differential diagnosis: hip fracture, intertrochanteric fracture, femoral neck oral fracture. Data reviewed: vital signs, nurses notes, lab test result(s), radiologic studies, CT scan, plain films. Consideration of Admission/Observation Escalation of care including admission/observation considered. I considered the following discharge prescriptions or medication management in the emergency department Medications were administered in the Emergency Department. See MAR. Independent interpretation of the following test(s) in the Emergency Department X-Ray: My interpretation is left hip neg, no dislocation. 10/04 11:51 Order name: CBC with Diff; Complete Time: 14:39 [facility] 10/04 11:51 Order name: Comprehensive Metabolic Panel; Complete Time: 14:39 [facility] 10/04 13:30 Order name: CBC Smear Scan; Complete Time: 14:39 EDMS 10/04 11:51 Order name: Hip Left 2 View XRAY; Complete Time: 14:39 [facility] 10/04 13:13 Order name: Hip Left Wo Con; Complete Time: 14:39 EDMS Administered Medications: 12:54 Drug: NS 0.9% IV 1000 ml IV at 125 ml/hr continuous Route: IV; Rate: 125 ml/hr; Site: ko left forearm; 15:00 Follow up: IV Status: Completed infusion; IV Intake: 150ml ko1 15:39 Follow up: Response: No adverse reaction ko1 12:54 Drug: Ondansetron IVP 4 mg IVP once; over 2 minutes Route: IVP; Site: left forearm; ko1 13:21 Follow up: Response: No adverse reaction ko1 14:54 Follow up: Response: No adverse reaction ko1 15:29 Not Given (Physician Discretion): [id number] mg IVP once; hold ko1 15:30 Not Given (Physician Discretion): midazolamor iv 2 mg IVP once; hold ko1 15:30 Not Given (Physician Discretion): [id number] mg IVP once; hold ko1 18:09 Drug: Hydrocodone-Acetaminophen PO (7.5 mg-325 mg) 1 tabs PO once Route: PO; ko1 18:10 Follow up: Response: No adverse reaction; Pain is decreased ko1 Disposition Summary: 10/05/23 14:44 Discharge Ordered Notes: Location: Home oral Problem: new oral Symptoms: have improved oral Condition: Stable oral Diagnosis - Pain in left hip oral - Dislocation of internal left hip prosthesis, sequela - history of oral - shelter (current) use of anticoagulants - s/p reduction oral - Anemia, unspecified oral - Hemorrhage due to internal orthopedic prosthetic devices, implants and grafts, oral sequela - LEFT HIP HEMATOMA 10 X 5 X 8 CM(10/05/23 14:47) Followup: oral - With: Private Physician - When: 2 - 3 days - Reason: Recheck today's complaints, Continuance of care, Re-evaluation by your physician Followup: oral - With: Charlie Patton MD - When: 2 - 3 days - Reason: Recheck today's complaints, Re-evaluation by your physician Discharge Instructions: - Discharge Summary Sheet oral - Anemia oral - Joint Pain oral - Arthritis oral - Hematoma oral - Hematoma, [id number] oral - Closed Reduction for Prosthetic Hip Joint Dislocation oral - Closed Reduction for Prosthetic Hip Joint Dislocation, Care After oral - Musculoskeletal Pain oral - Hip Pain oral - Joint Pain, [id number] oral Forms: - Medication Reconciliation Form oral - Thank You Letter oral - Antibiotic Education oral - Prescription Opioid Use oral - Patient Portal Instructions oral - Leadership Thank You Letter oral - SBAR form ko1 Signatures: Dispatcher [employer] Wally Gates MD MD cha Oliver, Kathy RN RN ko1 Corrections: (The following items were deleted from the chart) 14:47 14:44 Hemorrhage due to internal orthopedic prosthetic devices, implants and grafts, oral sequela oral
[2023-10-05 18:37] VITALS: BP 118/60; TEMP 98; O2SAT 99
== END ==
LOC: ER 11:44
DX: M25.552 Pain in left hip (principal); T84.021S Dislocation of internal left hip prosthesis, sequela; S70.02XA Contusion of left hip, initial encounter; D64.9 Anemia, unspecified; Z79.01 Long term (current) use of anticoagulants; Z96.653 Presence of artificial knee joint, bilateral; Z86.73 Personal history of transient ischemic attack (TIA), and cerebral infarction without residual deficits
CPT/HCPCS: 85025; 36415; 80053; 73700; 73502; J2405; J7030; 96361; 96374; 99285

== ENCOUNTER 2023-12-30 15:04 | Emergency (ER) | payer OTHER ==
--- OUTSIDE RECORDS SUMMARY | 2023-12-30 15:18 | XMS REPORT | Continuity of Care Document ---
Author Name Unknown Address [address] [facility] [address] [place] [address] [facility] Address [address] [facility] [address] [place] [address] Care Team Providers Care Professional Nurse Name Role Phone Jamari Carrero Primary Care Physician ZACKERY ARNETT Attending Clinician Unavailable ALEJANDRA LEWIS NATASHA Attending Clinician Unava ilable Dain, Tony X Attending Clinician Unavailable UNKNOWN Attending Clinician Unavailable Deyvi Celis Cardiology Attending Clinician Unavailable Alvaro Ron Attending Clinician Unavailable RADHA Attending Clinician Unavailable Fernando Harris MD Attending Clinician [phone] Jamari Carrero Attending Clinician [phone] ALEJANDRA LEWIS NATASHA Admitting Clinician Unava ilable Dain, Adnan X Admitting Clinician Unavailable Deyvi Celis Cardiology Admitting Clinician Unavailable KNOW, DOES_NOT Admitting Clinician Unavailable Alvaro Ron Admitting Clinician Unavailable ERERROLON_R Admitting Clinician Unavailable Payers Payer Name Policy Type Policy Number Effective Date Expirati on Date Source [employer]ICAL [id number] 2015 00:00:00 MEDICARE PART A AND B [id number] 2000 00:00:00 AETM AETM [id number] AETNA (PPO) [id number] 2022 00:00:00 AETNA (INDEMNITY) [id number] 2000 00:00:00 2022 00:00:00 [place]: [employer] [id number] 2000 00:00:00 Problems Condition Name Condition Details Condition Category Status Onset Date Resolution Date Last Treatment Date Treating Clinician Comments Source Pressure injury Pressure Injury Problem Active 12-22 00:00: 00 [facility] 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 Problem Active 2022-07 00:00: 00 [facility] Dislocatio n of hip joint Dislocatio n of Hip Joint Problem Active 2022-07 00:00: 00 [facility] Macrocytic anemia Macrocytic Anemia Problem Active 07-30 00:00: 00 [facility] Chronic kidney disease stage 3B Chronic Kidney Disease Stage 3B Problem Active 2021-07 00:00: 00 [facility] Left bundle branch block Left Bundle Branch Block Problem Active 01-11 00:00: 00 [facility] 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 Problem Active 01-11 00:00: 00 [facility] Aortic stenosis, non-rheuma tic Aortic Stenosis, Non-rheuma tic Problem Active 01-11 00:00: 00 [facility] 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 10-03 00:00: 00 [facility] 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 Problem Active 01-16 00:00: 00 [facility] Chronic pain Chronic Pain Problem Active 15 00:00: 00 [facility] Hyperchole sterolemia Hyperchole sterolemia Problem Active 08-19 00:00: 00 [facility] Coronary arterioscl erosis Coronary Arterioscl erosis Problem Active 08-19 00:00: 00 [facility] Arthritis Arthritis Problem Active 08-19 00:00: 00 [facility] Fatigue Fatigue Problem Active 08-19 00:00: 00 [facility] History of meningitis History of Meningitis Problem Active 08-19 00:00: 00 [facility] History of cerebrovas cular accident History of Cerebrovas cular Accident Problem Active 08-19 00:00: [address] [facility] Allergies, Adverse Reactions, Alerts Allergy Name Allergy Type Status Severity Reaction(s) Onset Date Inactive Date Treating Clinician Comments Source No Known Allergie s DA Active U - 00:00: 00 [facility] No Known Allergie s DA Active U 08-08 00:00: 00 [facility] No Known Allergie s DA Active U 12-13 00:00: 00 [facility] No Known Drug Intolera nces DA Active U 2008-07 00:00: 00 [facility] No Known Contrast Allergie s DA Active U 01-15 00:00: 00 [facility] No Known Food Allergie s DA Active U 01-15 00:00: 00 [facility] No Known Other Allergie s DA Active U 01-15 00:00: 00 [facility] Social History Social Habit Start Date Stop Date Quantity Comments Source Exposure to SARS-CoV-2 (event) 2022 00:00:00 2022-04-22 08:33:00 Not sure [facility] Tobacco use and exposure 2022-04-22 00:00:00 2022-04-22 00:00:00 Smokeless tobacco non-user [facility] Alcohol intake 2022-04-22 00:00:00 2022-04-22 00:00:00 Lifetime non-drinker (finding) [facility] Sex Assigned At 1935 00:00:00 1935 00:00:00 [facility] Smoking Status Start Date Stop Date Source Former Smoker [facility] Never smoked tobacco [facility] Medications Ordered Medication Name Filled Medication Name Start Date Stop Date Current Medication? Ordering Clinician Indication Dosage Frequency Signature (SIG) Comments Components Source clopidogrel 75 mg tablet TAKE 1 TABLET BY MOUTH EVERY DAY clopidogrel 75 mg tablet TAKE 1 TABLET BY MOUTH EVERY DAY No clopidogre l 75 mg tablet TAKE 1 TABLET BY MOUTH EVERY DAY [facility] isosorbide mononitrate ER 30 mg tablet,exte nded release 24 hr TAKE 1 TABLET BY MOUTH EVERY DAY isosorbide mononitrate ER 30 mg tablet,exte nded release 24 hr TAKE 1 TABLET BY MOUTH EVERY DAY No isosorbide mononitrat e ER 30 mg tablet,ext ended release 24 hr TAKE 1 TABLET BY MOUTH EVERY DAY [facility] metoprolol succinate ER 25 mg tablet,exte nded release 24 hr TAKE 1/2 TABLET BY MOUTH DAILY metoprolol succinate ER 25 mg tablet,exte nded release 24 hr TAKE 1/2 TABLET BY MOUTH DAILY No metoprolol succinate ER 25 mg tablet,ext ended release 24 hr TAKE 1/2 TABLET BY MOUTH DAILY [facility] tramadol 50 mg tablet TAKE 1 TABLET BY MOUTH EVERY 12 HOURS tramadol 50 mg tablet TAKE 1 TABLET BY MOUTH EVERY 12 HOURS No tramadol 50 mg tablet TAKE 1 TABLET BY MOUTH EVERY 12 HOURS [facility] hydrocortis one valerate 0.2 % topical [...] FOR ITCHING FOR 2 WEEKS PER MONTH [facility] amiodarone 200 mg tablet TAKE 1 TABLET BY MOUTH EVERY MORNING. HOLD IF PULSE IS LESS THAN 60 amiodarone 200 mg tablet TAKE 1 TABLET BY MOUTH EVERY MORNING. HOLD IF PULSE IS LESS THAN 60 No amiodarone 200 mg tablet TAKE 1 TABLET BY MOUTH EVERY MORNING. HOLD IF PULSE IS LESS THAN 60 [facility] aspirin 81 mg tablet,emily yed release TAKE 1 TABLET BY MOUTH DAILY aspirin 81 mg tablet,emily yed release TAKE 1 TABLET BY MOUTH DAILY No aspirin 81 mg tablet,del ayed release TAKE 1 TABLET BY MOUTH DAILY [facility] atorvastati n 40 mg tablet Take 1 tablet every day by oral route at bedtime for 90 days, for Cholesterol . atorvastati n 40 mg tablet Take 1 tablet every day by oral route at bedtime for 90 days, for Cholesterol . No 1 Q1D atorvastat in 40 mg tablet Take 1 tablet every day by oral route at bedtime for 90 days, for Cholestero l. [facility] atorvastati n 80 mg tablet TAKE 1 TABLET BY MOUTH EVERY NIGHT AT BEDTIME atorvastati n 80 mg tablet TAKE 1 TABLET BY MOUTH EVERY NIGHT AT BEDTIME No atorvastat in 80 mg tablet TAKE 1 TABLET BY MOUTH EVERY NIGHT AT BEDTIME [facility] Eliquis 5 mg tablet TAKE 1 TABLET BY MOUTH TWICE DAILY Eliquis 5 mg tablet TAKE 1 TABLET BY MOUTH TWICE DAILY No Eliquis 5 mg tablet TAKE 1 TABLET BY MOUTH TWICE DAILY [facility] FeroSul 325 mg (65 mg iron) tablet TAKE 1 TABLET BY MOUTH DAILY FeroSul 325 mg (65 mg iron) tablet TAKE 1 TABLET BY MOUTH DAILY No FeroSul 325 mg (65 mg iron) tablet TAKE 1 TABLET BY MOUTH DAILY [facility] furosemide 20 mg tablet Take 1 tablet every day by oral route in the morning for 90 days. furosemide 20 mg tablet Take 1 tablet every day by oral route in the morning for 90 days. No 1 Q1D furosemide 20 mg tablet Take 1 tablet every day by oral route in the morning for 90 days. [facility] methocarbam ol 500 mg tablet TAKE 1 TABLET BY MOUTH EVERY 8 HOURS NEEDED methocarbam ol 500 mg tablet TAKE 1 TABLET BY MOUTH EVERY 8 HOURS NEEDED No methocarba mol 500 mg tablet TAKE 1 TABLET BY MOUTH EVERY 8 HOURS NEEDED [facility] olopatadine 0.1 % eye drops INSTILL 1 DROP BOTH EYES EVERY 12 HOURS NEEDED olopatadine 0.1 % eye drops INSTILL 1 DROP BOTH EYES EVERY 12 HOURS NEEDED No olopatadin e 0.1 % eye drops INSTILL 1 DROP BOTH EYES EVERY 12 HOURS NEEDED [facility] potassium chloride ER 10 mEq tablet,exte nded release(par t/cryst) TAKE 1 TABLET BY MOUTH EVERY MORNING potassium chloride ER 10 mEq tablet,exte nded release(par t/cryst) TAKE 1 TABLET BY MOUTH EVERY MORNING No potassium chloride ER 10 mEq tablet,ext ended release(pa rt/cryst) TAKE 1 TABLET BY MOUTH EVERY MORNING [facility] ketoconazol e 2 % shampoo APPLY TOPICALLY 3 TO 4 TIMES WEEKLY. LEAVE ON FOR 5-10 MINUTES BEFORE RINSING ketoconazol e 2 % shampoo APPLY TOPICALLY 3 TO 4 TIMES WEEKLY. LEAVE ON FOR 5-10 MINUTES BEFORE RINSING No ketoconazo le 2 % shampoo APPLY TOPICALLY 3 TO 4 TIMES WEEKLY. LEAVE ON FOR 5-10 MINUTES BEFORE RINSING [facility] mupirocin 2 % topical ointment APPLY A THIN LAYER TO OPEN WOUND ON EARS AND ARMS TWICE DAILY mupirocin 2 % topical ointment APPLY A THIN LAYER TO OPEN WOUND ON EARS AND ARMS TWICE DAILY No mupirocin 2 % topical ointment APPLY A THIN LAYER TO OPEN WOUND ON EARS AND ARMS TWICE DAILY [facility] Santyl 250 unit/gram topical ointment APPLY TO WOUND ONCE DAILY DIRECTED Santyl 250 unit/gram topical ointment APPLY TO WOUND ONCE DAILY DIRECTED No Santyl 250 unit/gram topical ointment APPLY TO WOUND ONCE DAILY DIRECTED [facility] Immunizations Ordered Immunization Name Filled Immunization Name Date Status Comments Source Influenza, injectable, MDCK, preservative free, quadrivalent Influenza, injectable, MDCK, preservative free, quadrivalent Unknown Completed [facility] Pneumococcal conjugate PCV20, polysaccharide [id number] conjugate, adjuvant, PF Pneumococcal conjugate PCV20, polysaccharide [id number] conjugate, adjuvant, PF Unknown Completed [facility] influenza, high-dose, quadrivalent influenza, high-dose, quadrivalent Unknown Completed [facility] COVID-19 (SARS-COV-2) vaccine, unspecified COVID-19 (SARS-COV-2) vaccine, unspecified Unknown Completed [facility] influenza, injectable, quadrivalent influenza, injectable, quadrivalent Unknown Completed [facility] Vital Signs Vital Name Observation Time Observation Value Comments S ource BP Diastolic 2023-12-24 00:00:00 52 mm[Hg] [facility] Height 2023-12-24 00:00:00 68 [in_i] [facility] BP Systolic 2023-12-24 00:00:00 102 mm[Hg] [facility] BP Systolic 2023-12-09 00:00:00 112 mm[Hg] [facility] BMI (Body Mass Index) 2023-12-09 00:00:00 22.5 kg/m2 [facility] Height 2023-12-09 00:00:00 68 [in_i] [facility] Body Weight 2023-12-09 00:00:00 2368 [oz_av] [facility] BP Diastolic 2023-12-09 00:00:00 72 mm[Hg] [facility] BP Diastolic 2023-06-16 00:00:00 70 mm[Hg] [facility] BMI (Body Mass Index) 2023-06-16 00:00:00 25.1 kg/m2 [facility] BP Systolic 2023-06-16 00:00:00 118 mm[Hg] [facility] Body Weight 2023-06-16 00:00:00 2640 [oz_av] [facility] Height 2023-06-16 00:00:00 68 [in_i] [facility] BMI (Body Mass Index) 2023-04-14 00:00:00 26.9 kg/m2 [facility] Body Weight 2023-04-14 00:00:00 2832 [oz_av] [facility] Height 2023-04-14 00:00:00 68 [in_i] [facility] BP Diastolic 2023-04-14 00:00:00 72 mm[Hg] [facility] BP Systolic 2023-04-14 00:00:00 120 mm[Hg] [facility] BP Diastolic 2023-02-11 00:00:00 74 mm[Hg] [facility] Height 2023-02-11 00:00:00 68 [in_i] [facility] BMI (Body Mass Index) 2023-02-11 00:00:00 27.2 kg/m2 [facility] BP Systolic 2023-02-11 00:00:00 124 mm[Hg] [facility] Body Weight 2023-02-11 00:00:00 2864 [oz_av] [facility] BP Diastolic 2022-12-12 00:00:00 70 mm[Hg] [facility] Height 2022-12-12 00:00:00 68 [in_i] [facility] BP Systolic 2022-12-12 00:00:00 116 mm[Hg] [facility] BP Diastolic 2022-09-09 00:00:00 72 mm[Hg] [facility] Height 2022-09-09 00:00:00 68 [in_i] [facility] BMI (Body Mass Index) 2022-09-09 00:00:00 28.6 kg/m2 [facility] BP Systolic 2022-09-09 00:00:00 120 mm[Hg] [facility] Body Weight 2022-09-09 00:00:00 3008 [oz_av] [facility] BP Diastolic 2022-07-15 00:00:00 74 mm[Hg] [facility] Height 2022-07-15 00:00:00 68 [in_i] [facility] BMI (Body Mass Index) 2022-07-15 00:00:00 29 kg/m2 [facility] BP Systolic 2022-07-15 00:00:00 114 mm[Hg] [facility] Body Weight 2022-07-15 00:00:00 3048 [oz_av] [facility] BP Diastolic 2022-06-06 00:00:00 74 mm[Hg] [facility] Height 2022-06-06 00:00:00 68 [in_i] [facility] BMI (Body Mass Index) 2022-06-06 00:00:00 28.7 kg/m2 [facility] BP Systolic 2022-06-06 00:00:00 120 mm[Hg] [facility] Body Weight 2022-06-06 00:00:00 3024 [oz_av] [facility] Body height 2022-04-22 14:15:00 157.5 [facility] Body weight 2022-04-22 14:15:00 82.555 kg [facility] BMI 2022-04-22 14:15:00 33.29 kg/m2 [facility] BP Diastolic 2022-03-07 00:00:00 72 mm[Hg] [facility] Height 2022-03-07 00:00:00 68 [in_i] [facility] BMI (Body Mass Index) 2022-03-07 00:00:00 29.3 kg/m2 [facility] BP Systolic 2022-03-07 00:00:00 116 mm[Hg] [facility] Body Weight 2022-03-07 00:00:00 3088 [oz_av] [facility] BP Diastolic 2021-12-06 00:00:00 62 mm[Hg] [facility] Height 2021-12-06 00:00:00 68 [in_i] [facility] BMI (Body Mass Index) 2021-12-06 00:00:00 29.2 kg/m2 [facility] BP Systolic 2021-12-06 00:00:00 108 mm[Hg] [facility] Body Weight 2021-12-06 00:00:00 3072 [oz_av] [facility] BP Diastolic 2021-10-30 00:00:00 70 mm[Hg] [facility] Height 2021-10-30 00:00:00 68 [in_i] [facility] BMI (Body Mass Index) 2021-10-30 00:00:00 29.2 kg/m2 [facility] BP Systolic 2021-10-30 00:00:00 112 mm[Hg] [facility] Body Weight 2021-10-30 00:00:00 3072 [oz_av] [facility] BP Diastolic 2021-10-15 00:00:00 82 mm[Hg] [facility] Height 2021-10-15 00:00:00 68 [in_i] [facility] BMI (Body Mass Index) 2021-10-15 00:00:00 29.3 kg/m2 [facility] BP Systolic 2021-10-15 00:00:00 116 mm[Hg] [facility] Body Weight 2021-10-15 00:00:00 3088 [oz_av] [facility] BP Diastolic 2021-10-02 00:00:00 78 mm[Hg] [facility] Height 2021-10-02 00:00:00 68 [in_i] [facility] BP Systolic 2021-10-02 00:00:00 116 mm[Hg] [facility] Height 2021-05-07 00:00:00 68 [in_i] [facility] BP Diastolic 2021 00:00:00 62 mm[Hg] [facility] Height 2021 00:00:00 68 [in_i] [facility] BMI (Body Mass Index) 2021 00:00:00 29.6 kg/m2 [facility] BP Systolic 2021 00:00:00 106 mm[Hg] [facility] Body Weight 2021 00:00:00 3112 [oz_av] [facility] BP Diastolic 2021-01-02 00:00:00 62 mm[Hg] [facility] Height 2021-01-02 00:00:00 68 [in_i] [facility] BMI (Body Mass Index) 2021-01-02 00:00:00 29.3 kg/m2 [facility] BP Systolic 2021-01-02 00:00:00 102 mm[Hg] [facility] Body Weight 2021-01-02 00:00:00 3088 [oz_av] [facility] BP Diastolic 2020-10-03 00:00:00 82 mm[Hg] [facility] Height 2020-10-03 00:00:00 68 [in_i] [facility] BMI (Body Mass Index) 2020-10-03 00:00:00 30 kg/m2 [facility] BP Systolic 2020-10-03 00:00:00 128 mm[Hg] [facility] Body Weight 2020-10-03 00:00:00 3152 [oz_av] [facility] Procedures Procedure Date / Time Performed Performing Clinician Source [id number] 2023-08-19 00:00:00 GREBR.01 [facility] [id number] 2023-08-19 00:00:00 GREBR.01 [facility] [id number] 2023-08-19 00:00:00 GREBR.01 [facility] [id number] 2023-08-19 00:00:00 GREBR.01 [facility] [id number] 2023-08-19 00:00:00 GREBR.01 [facility] [id number] 2023-08-19 00:00:00 GREBR.01 [facility] [id number] 2023-08-19 00:00:00 GREBR.01 [facility] [id number] 2023-08-19 00:00:00 GREBR.01 [facility] [id number] 2023-08-19 00:00:00 GREBR.01 [facility] [id number] 2023-08-18 00:00:00 GREBR.01 GONZÁLEZ [facility] [id number] 2023-08-18 00:00:00 GREBR.01 GONZÁLEZ [facility] [id number] 2023-08-13 00:00:00 POREHazel [facility] [id number] 2023-08-13 00:00:00 POREHazel [facility] [id number] 2023-08-13 00:00:00 POREHazel [facility] [id number] 2023-08-13 00:00:00 POREHazel [facility] [id number] 2023-08-13 00:00:00 POREY GONZÁLEZ [facility] [id number] 2023-08-13 00:00:00 POREY GONZÁLEZ [facility] [id number] 2023-08-13 00:00:00 POREHazel [facility] [id number] 2023-08-13 00:00:00 POREHazel [facility] [id number] 2023-08-13 00:00:00 POREHazel [facility] [id number] 2023-08-13 00:00:00 POREHazel [facility] [id number] 2023-08-13 00:00:00 TONNY [facility] [id number] 2023-08-13 00:00:00 ROXANA [facility] [id number] 2021-12-15 [id number] 2021-12-15 00:00:00 [facility] [id number] 2021-12-15 00:00:[address] [facility] [address], neck, w/o contrast 2021-10-02 00:00:[address] [facility] [address], head, w/o contrast 2021-10-02 00:00:[address] [facility] [address], cervical spine, w/o contrast 2021-10-02 00:00:00 [facility] Cardiac Pacemaker Procedure [facility] Prostatectomy (Turp) [facility] Cholecystectomy [facility] Shoulder Joint Surgery [facility] Total Replacement of Hip [facility] Knee Surgery [facility] Encounters Start Date/Time End Date/Time Encounter Type Admission Type Attending Clinicians Care Facility Care Department Encounter ID Source 2022-10-15 11:25:24 Outpatient [facility] [id number] [facility] 2022-04-22 08:37:07 Outpatient [facility] [id number] [facility] 2022-04-18 09:41:06 Outpatient [facility] [id number] [facility] 2022-04-17 09:44:45 Outpatient [facility] [id number] [facility] 2024-01-08 08:15:00 2024-01-08 08:15:00 Outpatient ZACKERY ARNETT [facility] [id number] [facility] 2023-12-24 00:00:00 2023-12-24 00:00:00 GEORGE Maguire-C: [address] [place] [address] , Ph. [phone] [facility], [facility], GEORGE-C [id number] [facility] 2023-12-09 00:00:00 2023-12-09 00:00:00 TOSHIA MaguireC: [address] [place] [address] , Ph. [facility] [id number] [facility] 2023-08-26 19:07:00 2023-09-06 11:34:00 Inpatient 3 ALEJANDRA LEWIS ENCPL CRD [id number] [facility] Fantasma louie 2023-08-09 15:50:00 2023-08-26 18:17:00 Inpatient Tony Evangelista [facility] [id number] [facility] 2023-08-09 19:13:00 2023-08-09 19:13:00 Outpatient UNKNOWN [facility]ACL LABO [id number] [facility] 2023-08-09 19:12:00 2023-08-09 19:12:00 Outpatient Tony Gautam HCANW REF [id number] [facility] 2023-08-09 07:15:00 2023-08-09 07:15:00 Outpatient Deyvi Sanchez HCAPM CATH [id number] [facility] 2023-08-09 07:15:00 2023-08-09 07:15:00 Outpatient EL Deyvi Celis [facility]CAPM CATH [id number] [facility] 2023-08-05 06:03:00 2023-08-07 11:01:00 Inpatient Alvaro Jefferson HCAWU INTE.02 [id number] [facility] 2023-06-16 00:00:00 2023-06-16 00:00:00 GEORGE Olmstead-C: [address], [place] [address] , Ph. [facility], DR. CARRERO [id number] [facility] 2023-06-13 00:00:00 2023-06-13 00:00:00 Outpatient [facility]_R [facility] [id number] [facility] 2023-04-14 00:00:00 2023-04-14 00:00:00 Outpatient [facility]SON[facility] [id number] [facility] 2023-04-14 00:00:00 2023-04-14 00:00:00 Outpatient [facility]SON_R [facility] [id number] [facility] 2023-04-14 00:00:00 2023-04-14 00:00:00 Jamari Carrero, DO: [address], [place] [address] , Ph. [facility], DR. CARRERO [id number] [facility] 2023-03-08 00:00:00 2023-03-08 00:00:00 Outpatient [facility]SON_R [facility] [id number] [facility] 2023-02-11 00:00:00 2023-02-11 00:00:00 Jamari Carrero, DO: [address] [place] [address] , Ph. [facility], DR. CARRERO [id number] [facility] 2023-01-24 00:00:00 2023-01-24 00:00:00 Outpatient [facility]_R [facility] [id number] [facility] 2023-01-12 00:00:00 2023-01-12 00:00:00 Outpatient [facility]SON_R [facility] [id number] [facility] 2022-12-20 00:00:00 2022-12-20 00:00:00 Outpatient [facility]R [facility] [id number] [facility] [facility] 2022-12-12 00:00:00 2022-12-12 00:00:00 Jamari Carrero, DO: [address], [place] [address] , Ph. [phone] [facility], DR. CARRERO [id number] [place] [facility] 2022-12-08 00:00:00 2022-12-08 00:00:00 Outpatient ERICKSON_R [facility] [id number] [place] [facility] 2022-12-08 00:00:00 2022-12-08 00:00:00 Outpatient ERICKSON_R [facility] [id number] [place] [facility] 2022-09-09 00:00:00 2022-09-09 00:00:00 Jamari Carrero, DO: [address], [place] [address] , Ph. [facility], DR. CARRERO [id number] [place] [facility] 2022-08-20 00:00:00 2022-08-20 00:00:00 Outpatient ERICKSON_R [facility] [id number] [place] [facility] 2022-07-15 00:00:00 2022-07-15 00:00:00 Outpatient ERICKSON_R [facility] [id number] [place] [facility] 2022-07-15 00:00:00 2022-07-15 00:00:00 Outpatient [facility]_R [facility] [id number] [place] [facility] 2022-07-15 00:00:00 2022-07-15 00:00:00 Jamari Carrero, DO: [address], [place] [address] , Ph. [facility], [address]. CARRERO [id number] [place] [facility] 2022-06-06 00:00:00 2022-06-06 00:00:00 Outpatient ERICKSON_R [facility] [id number] [place] [facility] 2022-06-06 00:00:00 2022-06-06 00:00:00 Jaamri Carrero, DO: [address], [place] [address] , Ph. [phone] [facility], [address] [id number] [facility] 2022-04-22 00:00:00 2022-04-22 12:05:51 Outpatient [facility] [id number] [facility] 2022-04-22 09:00:00 2022-04-22 09:36:16 Office Visit Fernando Harris [facility] 2 [id number] [facility] 2022-03-11 00:00:00 2022-03-11 00:00:00 Outpatient MAGAN_Ada [facility] [id number] [facility] 2022-03-07 00:00:00 2022-03-07 00:00:00 Outpatient MAGAN_Ada [facility] [id number] [facility] 2022-03-07 00:00:00 2022-03-07 00:00:00 Jamari Carrero, DO: [address] [facility], [place] [address] , Ph. [phone] [facility], DR[facility] [address] [id number] [facility] 2022-03-07 00:00:00 2022-03-07 00:00:00 Outpatient Jamari Carrero [facility] [id number] 2022-01-04 11:16:00 2022-01-04 11:16:00 Outpatient MAGAN_Ada [facility] [id number] [facility] 2021-12-13 17:13:00 2021-12-16 13:23:00 Inpatient MARÍA Marga Ronmoncho [facility].02 [id number] [facility] 2021-12-13 17:13:00 2021-12-16 13:23:00 Inpatient Alvaro Jefferson [facility]02 [id number] [facility] 2021-12-06 02:18:00 2021-12-06 02:18:00 Outpatient ERICKSON_R [facility] [id number] [place] [facility] 2021-12-06 00:00:00 2021-12-06 00:00:00 Jamari Carrero, DO: [address] [place] [address] , Ph. [facility], DR[facility] CARRERO [id number] [facility] 2021-12-06 00:00:00 2021-12-06 00:00:00 Outpatient Jamari Carrero [facility] [id number] 2021-11-20 10:33:00 2021-11-20 10:33:00 Outpatient ERICKSON_R [facility] [id number] [place] [facility] 2021-10-30 12:00:00 2021-10-30 12:00:00 Outpatient ERICKSON_R [facility] [id number] [place] [facility] 2021-10-30 00:00:00 2021-10-30 00:00:00 Jamari Carrero, DO: [address] [place] [address] , Ph. [facility], DR[facility] CARRERO [id number] [place] [facility] 2021-10-30 00:00:00 2021-10-30 00:00:00 Outpatient Jamari Carrero [facility] [id number] 2021-10-15 11:27:00 2021-10-15 11:27:00 Outpatient ERICKSON_R [facility] [id number] [place] [facility] 2021-10-15 00:00:00 2021-10-15 00:00:00 Jamari Carrero, DO: [address] [place] [address] , Ph. [facility], DR[facility] CARRERO [id number] [facility] 2021-10-15 00:00:00 2021-10-15 00:00:00 Outpatient Jamari Carrero [facility] [id number] 2021-10-02 12:47:00 2021-10-02 12:47:00 Outpatient ERERROLON_R [facility] [id number] [facility] 2021-10-02 00:00:00 2021-10-02 00:00:00 Jamari Carrero, DO: [address] [place] [address] , Ph. [facility], DR[facility] CARRERO [id number] [facility] 2021-10-02 00:00:00 2021-10-02 00:00:00 Outpatient Jamari Carrero [facility] [id number] 2021-10-02 00:00:00 2021-10-02 00:00:00 Outpatient Jamari Carrero [facility] [id number] 2021-07-17 10:14:00 2021-07-17 10:14:00 Outpatient ERICKSON_R [facility] [id number] [place] [facility] 2021-07-17 00:00:00 2021-07-17 00:00:00 Jamari Carrero, DO: [address], [place] [address] , Ph. [facility], DR. CARRERO [id number] [place] [facility] 2021-05-07 11:42:00 2021-05-07 11:42:00 Outpatient ERICKSON_R [facility] [id number] [place] [facility] 2021-05-07 00:00:00 2021-05-07 00:00:00 Jamari Carrero, DO: [address], [place] [address] , Ph. [facility], DR[facility] CARRERO [id number] [place] [facility] 2021 10:54:00 2021 10:54:00 Outpatient ERICKSON_R [facility] [id number] [place] [facility] 2021 00:00:00 2021 00:00:00 Outpatient Jamari Carrero [facility] [id number] 2021 00:00:00 2021 00:00:00 Jamari Carrero, DO: [address], [place] [address] , Ph. [facility], DR[facility] CARRERO [id number] [place] [facility] 2021-02-20 12:57:00 2021-02-20 12:57:00 Outpatient ERICKSON_R [facility] [id number] [place] [facility] 2021-01-02 10:21:00 2021-01-02 10:21:00 Outpatient ERICKSON_R [facility] [id number] [facility] 2021-01-02 00:00:00 2021-01-02 00:00:00 Outpatient Jamari Carrero Adal [facility] [id number] 2021-01-02 00:00:00 2021-01-02 00:00:00 Jamari Carrero, DO: [address] [place] [address] , Ph. [facility], DR. CARRERO [id number] [facility] 2020-10-03 09:55:00 2020-10-03 09:55:00 Outpatient ERMARCOS_R [facility] [id number] [facility] 2020-10-03 00:00:00 2020-10-03 00:00:00 Outpatient Jamari Carrero Adal [facility] [id number] 2020-10-03 00:00:00 2020-10-03 00:00:00 Jamari Carrero, DO: [address] [place] [address] , Ph. [facility], DR. CARRERO [id number] [facility] 2020-08-01 08:35:00 2020-08-01 08:35:00 Outpatient ERICKSON_R [facility] [id number] [facility] Results Test Description Test Time Test Comments Results Result Co mments Source [id number] 11:35:00* Test Item Value Reference Range Interpretation Comme nts LD (test code = 29403082) 212 U/L 120-[address] [facility] (DIFF/PLT)2023-09-01 11:35:00* Test Item Value Reference Range Interpretation Comme nts WHITE BLOOD CELL COUNT (test code = 23001979) 10.1 Thousand/uL 3.8-10.8 N RED BLOOD CELL COUNT (test code = 98386473) 2.85 Million/uL 4.20-5.80 L HEMOGLOBIN (test code = 84115021) 9.1 g/dL 13.2-17.1 L HEMATOCRIT (test code = 65372790) 27.6 % 38.5-50.0 L MCV (test code = 36913202) 96.8 fL 80.0-100.0 N MCH (test code = 77519737) 31.9 pg 27.0-33.0 N MCHC (test code = 67295018) 33.0 g/dL 32.0-36.0 N RDW (test code = 58531403) 19.5 % 11.0-15.0 H PLATELET COUNT (test code = 07228966) 216 Thousand/uL 140-400 N MPV (test code = 55617126) 9.7 fL 7.5-12.5 N ABSOLUTE NEUTROPHILS (test code = 62971265) 7464 cells/uL 3950-1306 N ABSOLUTE LYMPHOCYTES (test code = 19026834) 1273 cells/uL 850-3900 N ABSOLUTE MONOCYTES (test code = 27543133) 1091 cells/uL 200-950 H ABSOLUTE EOSINOPHILS (test code = 75901178) 202 cells/uL 15-500 N ABSOLUTE BASOPHILS (test code = 01268983) 71 cells/uL 0-200 N NEUTROPHILS (test code = 89989902) 73.9 % N LYMPHOCYTES (test code = 14781290) 12.6 % N MONOCYTES (test code = 74714160) 10.8 % N EOSINOPHILS (test code = 27509669) 2.0 % N BASOPHILS (test code = 01276593) 0.7 % N [facility] MET [id number] 14:34:00* Test Item Value Reference Range Interpretation Comme nts GLUCOSE (test code = 84600646) 97 mg/dL 65-99 N Fasting referenc e interval UREA NITROGEN (BUN) (test code = 02710435) 18 mg/dL 7-25 N CREATININE (test code = 52901486) 1.05 mg/dL 0.70-1.22 N EGFR (test code = 11405720) 68 mL/min/1.73m2 >=60 N BUN/CREATININE RATIO (test code = 00827497) SEE NOTE: (calc) 6-22 N Not Reported: BUN and Creatinine are within reference range. SODIUM (test code = 80139034) 134 mmol/L 135-146 L POTASSIUM (test code = 93309556) 4.7 mmol/L 3.5-5.3 N CHLORIDE (test code = 00206228) 96 mmol/L 98-110 L CARBON DIOXIDE (test code = 79688394) 30 mmol/L 20-32 N CALCIUM (test code = 97347111) 8.3 mg/dL 8.6-10.3 L [facility] FUNCTION [id number] 14:34:00* Test Item Value Reference Range Interpretation Comme nts PROTEIN, TOTAL (test code = 90831348) 5.9 g/dL 6.1-8.1 L ALBUMIN (test code = 25468789) 3.1 g/dL 3.6-5.1 L GLOBULIN (test code = 70203973) 2.8 g/dL (calc) 1.9-3.7 N ALBUMIN/GLOBULIN RATIO (test code = 62710981) 1.1 (calc) 1.0-2.5 N BILIRUBIN, TOTAL (test code = 14974049) 1.8 mg/dL 0.2-1.2 H BILIRUBIN, DIRECT (test code = 67926947) 0.5 mg/dL 0.0-0.2 H BILIRUBIN, INDIRECT (test code = 15513075) 1.3 mg/dL (calc) 0.2-1.2 H ALKALINE PHOSPHATASE (test code = 33375798) 90 U/L 35-144 N AST (test code = 62798830) 15 U/L 10-35 N ALT (test code = 41530744) 12 U/L 9-46 N [facility] META [id number] 12:22:00* Test Item Value Reference Range Interpretation Comme nts GLUCOSE (test code = 34964105) 90 mg/dL 65-99 N Fasting referenc e interval UREA NITROGEN (BUN) (test code = 15525033) 20 mg/dL 7-25 N CREATININE (test code = 55182244) 1.08 mg/dL 0.70-1.22 N EGFR (test code = 87870599) 66 mL/min/1.73m2 >=60 N BUN/CREATININE RATIO (test code = 81672385) SEE NOTE: (calc) 6-22 N Not Reported: BUN and Creatinine are within reference range. SODIUM (test code = 77866401) 134 mmol/L 135-146 L POTASSIUM (test code = 50340904) 4.4 mmol/L 3.5-5.3 N CHLORIDE (test code = 31099703) 98 mmol/L 98-110 N CARBON DIOXIDE (test code = 97386020) 28 mmol/L 20-32 N CALCIUM (test code = 22480488) 7.9 mg/dL 8.6-10.3 L PROTEIN, TOTAL (test code = 52067682) 5.6 g/dL 6.1-8.1 L ALBUMIN (test code = 39911529) 2.8 g/dL 3.6-5.1 L GLOBULIN (test code = 60240088) 2.8 g/dL (calc) 1.9-3.7 N ALBUMIN/GLOBULIN RATIO (test code = 02371939) 1.0 (calc) 1.0-2.5 N BILIRUBIN, TOTAL (test code = 15448727) 1.5 mg/dL 0.2-1.2 H ALKALINE PHOSPHATASE (test code = 76090720) 76 U/L 35-144 N AST (test code = 35103792) 16 U/L 10-35 N ALT (test code = 78613341) 11 U/L 9-46 N [facility] TIME WITH [id number] 12:22:00* Test Item Value Reference Range Interpretation Comme nts INR (test code = 96206394) 1.3 H Reference Range 0.9-1.1Moderate-intensity Warfarin Therapy 2.0-3.0Higher-intensity Warfarin Therapy 3.0-4.0 PT (test code = 80003047) 13.1 sec 9.0-11.5 H For additional information, please refer tohttp://education.SocialFlow/faq/WLZ823 (This link is being provided for informational/educational purposes only.) [facility] (DIFF/PLT)2023-08-28 12:22:00* Test Item Value Reference Range Interpretation Comme nts WHITE BLOOD CELL COUNT (test code = 24683336) 8.7 Thousand/uL 3.8-10.8 N RED BLOOD CELL COUNT (test code = 86883943) 2.70 Million/uL 4.20-5.80 L HEMOGLOBIN (test code = 42214924) 8.4 g/dL 13.2-17.1 L HEMATOCRIT (test code = 69534375) 25.5 % 38.5-50.0 L MCV (test code = 53622188) 94.4 fL 80.0-100.0 N MCH (test code = 93690879) 31.1 pg 27.0-33.0 N MCHC (test code = 56426251) 32.9 g/dL 32.0-36.0 N RDW (test code = 86613653) 19.9 % 11.0-15.0 H PLATELET COUNT (test code = 75039230) 363 Thousand/uL 140-400 N MPV (test code = 10971262) 9.4 fL 7.5-12.5 N ABSOLUTE NEUTROPHILS (test code = 74031641) 6308 cells/uL 0526-8578 N ABSOLUTE LYMPHOCYTES (test code = 64858792) 1148 cells/uL 850-3900 N ABSOLUTE MONOCYTES (test cod e = 03278386) 914 cells/uL 200-950 N ABSOLUTE EOSINOPHILS (test code = 09376350) 270 cells/uL 15-500 N ABSOLUTE BASOPHILS (test cod e = 59273564) 61 cells/uL 0-200 N NEUTROPHILS (test code = 52609254) 72.5 % N LYMPHOCYTES (test code = 68172503) 13.2 % N MONOCYTES (test code = 87082926) 10.5 % N EOSINOPHILS (test code = 24425969) 3.1 % N BASOPHILS (test code = 91219711) 0.7 % N [facility] META [id number] 16:28:00* Test Item Value Reference Range Interpretation Comme nts GLUCOSE (test code = 23285540) 90 mg/dL 65-99 N Fasting referenc e interval UREA NITROGEN (BUN) (test code = 70532566) 22 mg/dL 7-25 N CREATININE (test code = 68636710) 1.03 mg/dL 0.70-1.22 N EGFR (test code = 80651307) 70 mL/min/1.73m2 >=60 N BUN/CREATININE RATIO (test code = 94386129) SEE NOTE: (calc) 6-22 N Not Reported: BUN and Creatinine are within reference range. SODIUM (test code = 93711838) 136 mmol/L 135-146 N POTASSIUM (test code = 89899012) 4.4 mmol/L 3.5-5.3 N CHLORIDE (test code = 09842375) 98 mmol/L 98-110 N CARBON DIOXIDE (test code = 45051104) 30 mmol/L 20-32 N CALCIUM (test code = 17356121) 7.7 mg/dL 8.6-10.3 L PROTEIN, TOTAL (test code = 94626274) 5.4 g/dL 6.1-8.1 L ALBUMIN (test code = 55520285) 2.7 g/dL 3.6-5.1 L GLOBULIN (test code = 59331903) 2.7 g/dL (calc) 1.9-3.7 N ALBUMIN/GLOBULIN RATIO (test code = 26177331) 1.0 (calc) 1.0-2.5 N BILIRUBIN, TOTAL (test code = 49446109) 1.2 mg/dL 0.2-1.2 N ALKALINE PHOSPHATASE (test code = 74781400) 72 U/L 35-144 N AST (test code = 93135396) 15 U/L 10-35 N ALT (test code = 03563863) 12 U/L 9-46 N [facility] WITH [id number] 16:28:00* Test Item Value Reference Range Interpretation Comme nts INR (test code = 14314765) 1.2 H Reference Range 0.9-1.1Moderate-intensity Warfarin Therapy 2.0-3.0Higher-intensity Warfarin Therapy 3.0-4.0 PT (test code = 73156291) 12.4 sec 9.0-11.5 H For additional information, please refer tohttp://education.SocialFlow/faq/JRH649 (This link is being provided for informational/educational purposes only.) [facility]2023-08-27 16:28:00* Test Item Value Reference Range Interpretation Comme nts WHITE BLOOD CELL COUNT (test code = 02136591) 9.6 Thousand/uL 3.8-10.8 N RED BLOOD CELL COUNT (test code = 96656677) 2.67 Million/uL 4.20-5.80 L HEMOGLOBIN (test code = 69321346) 8.3 g/dL 13.2-17.1 L HEMATOCRIT (test code = 52044429) 25.3 % 38.5-50.0 L MCV (test code = 32459556) 94.8 fL 80.0-100.0 N MCH (test code = 22449410) 31.1 pg 27.0-33.0 N MCHC (test code = 01954353) 32.8 g/dL 32.0-36.0 N RDW (test code = 99122786) 20.1 % 11.0-15.0 H PLATELET COUNT (test code = 31557208) 363 Thousand/uL 140-400 N MPV (test code = 00787748) 9.8 fL 7.5-12.5 N ABSOLUTE NEUTROPHILS (test code = 03509223) 7354 cells/uL 0608-7466 N ABSOLUTE LYMPHOCYTES (test code = 57384839) 1056 cells/uL 850-3900 N ABSOLUTE MONOCYTES (test cod e = 16872756) 912 cells/uL 200-950 N ABSOLUTE EOSINOPHILS (test code = 57963761) 240 cells/uL 15-500 N ABSOLUTE BASOPHILS (test cod e = 64025052) 38 cells/uL 0-200 N NEUTROPHILS (test code = 27907000) 76.6 % N LYMPHOCYTES (test code = 05735529) 11.0 % N MONOCYTES (test code = 75808548) 9.5 % N EOSINOPHILS (test code = 08379848) 2.5 % N BASOPHILS (test code = 54360984) 0.4 % N [facility] [id number] 06:05:00* Test Item Value Reference Range Interpretation [...] ALKP) 72.0 U/L 46-116 N CBC W/AUTO [id number] 05:40:00* Test Item Value Reference Range Interpretation [...] 0.05 x10 3/uL 0.0-0.20 N BASIC METABOLIC [id number] 06:22:00* Test Item Value Reference Range Interpretation [...] CA) 8.2 mg/dL 8.7-10.4 L CBC W/AUTO [id number] 05:54:00* Test Item Value Reference Range Interpretation [...] = BA#) 0.04 x10 3/uL 0.0-0.20 N [id number] 20:51:00* Test Item Value Reference Range Interpretation Comme nts GLUBED (test code = GLUBED) 85 MG/DL 70-105 N BASIC METABOLIC [id number] 03:54:00* Test Item Value Reference Range Interpretation [...] code = CA) 8.0 mg/dL 8.7-10.4 L [id number] 03:54:00* Test Item Value Reference Range Interpretation Comme nts PHOSPHOROUS (test code = PHOS) 3.9 mg/dL 2.4-5.1 N [id number] 03:54:00* Test Item Value Reference Range Interpretation Comme nts MAGNESIUM (test code = MAG) 2.0 mg/dL 1.6-2.6 N CBC W/AUTO [id number] 03:43:00* Test Item Value Reference Range Interpretation [...] 0.04 x10 3/uL 0.0-0.20 N BASIC METABOLIC [id number] 04:44:00* Test Item Value Reference Range Interpretation [...] code = CA) 7.8 mg/dL 8.7-10.4 L [id number] 04:44:00* Test Item Value Reference Range Interpretation Comme nts PHOSPHOROUS (test code = PHOS) 3.4 mg/dL 2.4-5.1 N [id number] 04:44:00* Test Item Value Reference Range Interpretation Comme nts MAGNESIUM (test code = MAG) 1.9 mg/dL 1.6-2.6 N CBC W/AUTO [id number] 04:37:00* Test Item Value Reference Range Interpretation [...] 0.05 x10 3/uL 0.0-0.20 N BASIC METABOLIC [id number] 04:18:00* Test Item Value Reference Range Interpretation [...] 7.8 mg/dL 8.7-10.4 L ADD ON TEST? [id number] 04:18:00* Test Item Value Reference Range Interpretation Comme nts PHOSPHOROUS (test code = PHOS) 2.9 mg/dL 2.4-5.1 N ADD ON TEST? [id number] 04:18:00* Test Item Value Reference Range Interpretation Comme nts MAGNESIUM (test code = MAG) 1.9 mg/dL 1.6-2.6 N ADD ON TEST? YesCBC W/O [id number] 03:57:00* Test Item Value Reference Range Interpretation [...] 189 x10 3/uL 150-440 N BASIC METABOLIC [id number] 17:27:00* Test Item Value Reference Range Interpretation [...] code = CA) 8.1 mg/dL 8.7-10.4 L [id number] 17:27:00* Test Item Value Reference Range Interpretation Comme nts PHOSPHOROUS (test code = PHOS) 2.8 mg/dL 2.4-5.1 N [id number] 17:27:00* Test Item Value Reference Range Interpretation Comme nts MAGNESIUM (test code = MAG) 2.0 mg/dL 1.6-2.6 N [id number] 05:57:00* Test Item Value Reference Range Interpretation Comme nts PHOSPHOROUS (test code = PHOS) 2.6 mg/dL 2.4-5.1 N [id number] 05:57:00* Test Item Value Reference Range Interpretation Comme nts MAGNESIUM (test code = MAG) 2.1 mg/dL 1.6-2.6 N BASIC METABOLIC [id number] 05:57:00* Test Item Value Reference Range Interpretation [...] CA) 8.2 mg/dL 8.7-10.4 L CBC W/AUTO [id number] 05:39:00* Test Item Value Reference Range Interpretation [...] 0.03 x10 3/uL 0.0-0.20 N BASIC METABOLIC [id number] 16:39:00* Test Item Value Reference Range Interpretation [...] code = CA) 7.8 mg/dL 8.7-10.4 L [id number] 16:39:00* Test Item Value Reference Range Interpretation Comme nts PHOSPHOROUS (test code = PHOS) 2.4 mg/dL 2.4-5.1 N [id number] 16:39:00* Test Item Value Reference Range Interpretation Comme nts MAGNESIUM (test code = MAG) 2.0 mg/dL 1.6-2.6 N BASIC METABOLIC [id number] 04:19:00* Test Item Value Reference Range Interpretation [...] code = CA) 8.2 mg/dL 8.7-10.4 L [id number] 04:19:00* Test Item Value Reference Range Interpretation Comme nts PHOSPHOROUS (test code = PHOS) 2.8 mg/dL 2.4-5.1 N [id number] 04:19:00* Test Item Value Reference Range Interpretation Comme nts MAGNESIUM (test code = MAG) 2.2 mg/dL 1.6-2.6 N CBC W/AUTO [id number] 04:04:00* Test Item Value Reference Range Interpretation [...] 0.01 x10 3/uL 0.0-0.20 N BASIC METABOLIC [id number] 14:06:00* Test Item Value Reference Range Interpretation [...] code = CA) 8.1 mg/dL 8.7-10.4 L [id number] 14:06:00* Test Item Value Reference Range Interpretation Comme nts MAGNESIUM (test code = MAG) 2.1 mg/dL 1.6-2.6 N BASIC METABOLIC [id number] 03:57:00* Test Item Value Reference Range Interpretation [...] code = CA) 7.8 mg/dL 8.7-10.4 L [id number] 03:57:00* Test Item Value Reference Range Interpretation Comme nts MAGNESIUM (test code = MAG) 1.9 mg/dL 1.6-2.6 N CBC W/AUTO [id number] 03:33:00* Test Item Value Reference Range Interpretation [...] 0.02 x10 3/uL 0.0-0.20 N BASIC METABOLIC [id number] 19:42:00* Test Item Value Reference Range Interpretation [...] code = CA) 6.2 mg/dL 8.7-10.4 L [id number] 19:42:00* Test Item Value Reference Range Interpretation Comme nts MAGNESIUM (test code = MAG) 1.6 mg/dL 1.6-2.6 N BASIC METABOLIC [id number] 14:11:00* Test Item Value Reference Range Interpretation [...] code = CA) 8.6 mg/dL 8.7-10.4 L [id number] 14:11:00* Test Item Value Reference Range Interpretation Comme nts PHOSPHOROUS (test code = PHOS) 4.2 mg/dL 2.4-5.1 N [id number] 14:11:00* Test Item Value Reference Range Interpretation Comme nts MAGNESIUM (test code = MAG) 2.1 mg/dL 1.6-2.6 N [id number] 09:06:00* Test Item Value Reference Range Interpretation Comme nts PHOSPHOROUS (test code = PHOS) 4.3 mg/dL 2.4-5.1 N Comment: PLEASE USE SPECIMEN IN LABBASIC METABOLIC [id number] 03:47:00* Test Item Value Reference Range Interpretation [...] CA) 9.1 mg/dL 8.7-10.4 N LIVER FUNCTION [id number] 03:47:00* Test Item Value Reference Range Interpretation [...] ode = ALKP) 49.0 U/L 46-116 N [id number] 03:47:00* Test Item Value Reference Range Interpretation Comme nts MAGNESIUM (test code = MAG) 2.0 mg/dL 1.6-2.6 N PROTHROMBIN [id number] 03:44:00* Test Item Value Reference Range Interpretation Comme [facility] PROTHROMBIN TIME PATIENT (test code = [...] systemic anticoagulation for high-risk conditions THROMBOPLASTIN TIME [id number] 03:44:00* Test Item Value Reference Range [facility]ation [facility] PARTIAL (test code = PTT) 26.2 secs 23.8-34.8 N INTERPRETATIVE D CELENA: Therapeutic range: Unfractionated Heparin: 60-90 seconds Argatroban: 60-90 seconds [id number] 03:44:00* Test Item Value Reference Range Interpretation [facility] FIBRINOGEN (test code = FIB) 396 mg/dL 200-400 N LACTIC [id number] 03:42:00* Test Item Value Reference Range Interpretation [facility] LACTIC ACID (test code = LACT) 2.70 mmol/L 0.5-2.0 HH Critical Value r eported toFirst Name:JESSICA Cesar Name:JHONATANMYLAYANI READ BACK AND VERIFIEDby [id number], on 08/14/23, @ 0342. CBC W/AUTO [id number] 03:31:00* Test Item Value Reference Range Interpretation Comme [facility] WHITE BLOOD CELL (test code = [...] 0.01 x10 3/uL 0.0-0.20 N BLOOD GAS [id number]/[id number] 01:47:00* Test Item Value Reference Range Interpretation [...] CANNULA ALLENS TEST (test code = ALLENS) MD SODIUM (POC) (test code = NA/ABG) 145 [...] TCO2A) 25.1 MMOL/L 24-30 N BLOOD GAS [id number]/[id number] 23:41:00* Test Item Value Reference Range Interpretation [...] = TCO2A) 26.5 MMOL/L 24-30 N LACTIC [id number] 21:35:00* Test Item Value Reference Range Interpretation Comme nts LACTIC ACID (test code = LACT) 5.00 mmol/L 0.5-2.0 HH Critical Value r eported toFirst Name:JESSICA Guerrero Name:KIRIT READ BACK AND VERIFIEDby [id number], on 08/13/23, @ 9142. BASIC METABOLIC [id number] 21:35:00* Test Item Value Reference Range Interpretation [...] code = CA) 9.7 mg/dL 8.7-10.4 N [id number] 21:35:00* Test Item Value Reference Range Interpretation Comme nts PHOSPHOROUS (test code = PHOS) 3.8 mg/dL 2.4-5.1 N [id number] 21:35:00* Test Item Value Reference Range Interpretation Comme nts MAGNESIUM (test code = MAG) 2.1 mg/dL 1.6-2.6 N PROTHROMBIN [id number] 21:17:00* Test Item Value Reference Range Interpretation [...] systemic anticoagulation for high-risk conditions THROMBOPLASTIN TIME [id number] 21:17:00* Test Item Value Reference Range Interpretation Comme nts THROMBOPLASTIN TIME PARTIAL (test code = PTT) 28.2 secs 23.8-34.8 N INTERPRETATIVE D CELENA: Therapeutic range: Unfractionated Heparin: 60-90 seconds Argatroban: 60-90 seconds [id number] 21:17:00* Test Item Value Reference Range Interpretation Comme nts FIBRINOGEN (test code = FIB) 317 mg/dL 200-400 N CBC W/AUTO [id number] 21:11:00* Test Item Value Reference Range Interpretation [...] 0.01 x10 3/uL 0.0-0.20 N BLOOD GAS W/[id number] 21:08:00* Test Item Value Reference Range Interpretation [...] TCO2A) 24.9 MMOL/L 24-30 N BLOOD GAS W/[id number] 17:52:00* Test Item Value Reference Range Interpretation [...] TCO2A) 20.9 MMOL/L 24-30 L BLOOD GAS W/[id number] 17:41:00* Test Item Value Reference Range Interpretation [...] = TCO2A) 20.6 MMOL/L 24-30 L PROTHROMBIN [id number] 17:12:00* Test Item Value Reference Range Interpretation [...] systemic anticoagulation for high-risk conditions THROMBOPLASTIN TIME [id number] 17:12:00* Test Item Value Reference Range Interpretation Comme nts THROMBOPLASTIN TIME PARTIAL (test code = PTT) 26.6 secs 23.8-34.8 N INTERPRETATIVE D CELENA: Therapeutic range: Unfractionated Heparin: 60-90 seconds Argatroban: 60-90 seconds LACTIC [id number] 16:32:00* Test Item Value Reference Range Interpretation Comme nts LACTIC ACID (test code = LACT) 4.80 mmol/L 0.5-2.0 HH Critical Value r eported toFirst Name:SREEDHAR Cesar Name:HOLLEY READ BACK AND VERIFIEDby [id number], on 08/13/23, @ 0227. BASIC METABOLIC [id number] 16:31:00* Test Item Value Reference Range Interpretation [...] code = CA) 9.2 mg/dL 8.7-10.4 N [id number] 16:31:00* Test Item Value Reference Range Interpretation Comme nts PHOSPHOROUS (test code = PHOS) 4.7 mg/dL 2.4-5.1 [id number] 16:31:00* Test Item Value Reference Range Interpretation Comme nts MAGNESIUM (test code = MAG) 2.2 mg/dL 1.6-2.6 N CBC W/AUTO [id number] 16:29:00* Test Item Value Reference Range Interpretation [...] BA#) 0.02 x10 3/uL 0.0-0.20 N PROTHROMBIN [id number] 15:28:00* Test Item Value Reference Range Interpretation [...] systemic anticoagulation for high-risk conditions THROMBOPLASTIN TIME [id number] 15:28:00* Test Item Value Reference Range Interpretation Comme nts THROMBOPLASTIN TIME PARTIAL (test code = PTT) 32.5 secs 23.8-34.8 INTERPRETATIVE D CELENA: Therapeutic range: Unfractionated Heparin: 60-90 seconds Argatroban: 60-90 seconds [id number] 15:28:00* Test Item Value Reference Range Interpretation Comme nts FIBRINOGEN (test code = FIB) 159 mg/dL 200-400 L CBC W/AUTO [id number] 15:12:00* Test Item Value Reference Range Interpretation [...] 0.04 x10 3/uL 0.0-0.20 N COAGULATION TIME [id number] 15:10:00* Test Item Value Reference Range Interpretation Comme nts COAGULATION TIME ACTIVATED ( test code = ACT) 136 SECONDS 74-137 N COAGULATION TIME [id number] 13:39:00* Test Item Value Reference Range Interpretation Comme nts COAGULATION TIME ACTIVATED ( test code = ACT) 131 SECONDS 74-137 N COAGULATION TIME [id number] 12:39:00* Test Item Value Reference Range Interpretation Comme nts COAGULATION TIME ACTIVATED ( test code = ACT) 428 SECONDS 74-137 H COAGULATION TIME [id number] 12:10:00* Test Item Value Reference Range Interpretation Comme nts COAGULATION TIME ACTIVATED ( test code = ACT) 515 SECONDS 74-137 H COAGULATION TIME [id number] 11:37:00* Test Item Value Reference Range Interpretation Comme nts COAGULATION TIME ACTIVATED ( test code = ACT) 466 SECONDS 74-137 H COAGULATION TIME [id number] 11:02:00* Test Item Value Reference Range Interpretation Comme nts COAGULATION TIME ACTIVATED ( test code = ACT) 450 SECONDS 74-137 H PROTHROMBIN [id number] 06:32:00* Test Item Value Reference Range Interpretation [...] systemic anticoagulation for high-risk conditions THROMBOPLASTIN TIME [id number] 06:32:00* Test Item Value Reference Range Interpretation Comme nts THROMBOPLASTIN TIME PARTIAL (test code = PTT) 25.6 secs 23.8-34.8 N INTERPRETATIVE D CELENA: Therapeutic range: Unfractionated Heparin: 60-90 seconds Argatroban: 60-90 seconds Novel Coronavirus 20:47:00* Test Item Value Reference Range Interpretation [facility] Novel Coronavirus 2019 Inhouse (test code = [id number]) Negative Negative Positive resul ts are indicative of the presence ktEENF-DoO-7 RNA, clinical correlation with patient historyand other [...] the qualitative detection of nucleic acids from fgkNSTZ-GxR-7 virus and diagnosis of SARS-CoV-2 virusinfection. It is an Emergency Use Authorization (EUA) testauthorized by the U.S. FDA. BASIC METABOLIC [id number] 19:19:00* Test Item Value Reference Range Interpretation [...] code = CA) 8.4 mg/dL 8.7-10.4 L [id number] 19:19:00* Test Item Value Reference Range Interpretation Comme nts PHOSPHOROUS (test code = PHOS) 3.2 mg/dL 2.4-5.1 N [id number] 19:19:00* Test Item Value Reference Range Interpretation Comme nts MAGNESIUM (test code = MAG) 1.7 mg/dL 1.6-2.6 N CBC W/AUTO [id number] 18:51:00* Test Item Value Reference Range Interpretation [...] 0.04 x10 3/uL 0.0-0.20 N COMPREHENSIVE METABOLIC [id number] 16:49:00* Test Item Value Reference Range Interpretation [...] ALKP) 57.0 U/L 46-116 N CBC W/AUTO [id number] 16:30:00* Test Item Value Reference Range Interpretation [...] x10 3/uL 0.0-0.20 N COVID 19 INHOUSE [id number] 17:12:00* Test Item Value Reference Range Interpretation Comme nts COVID 19 INHOUSE AG (test code = [id number]) NEGATIVE NEGATIVE Negative results , from patients [...] clinical signs and symptomsconsistent with COVID-19. PROTHROMBIN [id number] 08:09:00* Test Item Value Reference Range Interpretation [...] Infarction (to prevent recurrent infarct). COMPREHENSIVE METABOLIC [id number] 08:09:00* Test Item Value Reference Range Interpretation [...] = LDL) 66 MG/DL 0-129 N <100 UODKUSL17 0 - 129 NEAR OPTIMAL/ABOVE IEWHESL504 - 159 ZLPJQNWDRG713 - 189 HIGH>OR= 190 VERY HIGHNOTE THAT GUIDELINES ARE PROVIDED BY NATIONAL CHOLESTEROLEDUCATION PROGRAM ADULT TREATMENT PANEL III LDL/HDL (test code = LDL/HDL) 1.04 Ratio See_Comment L [Automated messa ge] The system which generated this result transmitted reference range: 1.48-3.22 Avg. The reference range was not used to interpret this result as normal/abnormal. [id number] 08:09:00* Test Item Value Reference Range Interpretation Comme nts MAGNESIUM (test code = MAG) 2.0 MG/DL 1.8-2.4 N CBC W/AUTO [id number] 07:52:00* Test Item Value Reference Range Interpretation [...] code = NRBC#) 0.0 K/mm3 0.00-0.01 N [id number]-[id number] 02:58:00* Test Item Value Reference Range Interpretation Comme nts TROPONIN-I (test code = TROPI) 0.962 NG/ML 0.012-0.033 CALLED TO ROCIO Dyson& READBACK ON 08/06/23 AT 0258 BY Shannan Hargrove BASIC METABOLIC [id number] 02:57:00* Test Item Value Reference Range Interpretation [...] = CA) 8.8 MG/DL 8.4-10.2 N PROTHROMBIN [id number] 02:22:00* Test Item Value Reference Range [facility]ation [facility] PATIENT (test code = [...] recurrent systemic embolism. 3.0 - 4.5 PTT [id number] 02:22:00* Test Item Value Reference Range Interpretation [facility] PTT ACTIVATED (test code = APTT) 27.8 SECONDS 27.2-37.9 CBC W/AUTO [id number] 02:08:00* Test Item Value Reference Range Interpretation [facility] WHITE BLOOD CELL (test code = WBC) [...] K/mm3 0.0-0.1 N - CT HEAD/BRAIN W/O [id number] 20:00:00 [facility] 1935 Sex: M Patient Name: CHARLIE HART Unit No: [id number] EXAMS: CPT CODE: [id number] CT HEAD/BRAIN W/O CONT 68617 LOCATION: Q15 HISTORY: 88-year-old male presents with difficulty talking. COMMENT: Axial imaging of the patient's brain was obtained without IV contrast. Soft tissue and bone windowimages were provided. Coronal and sagittal reconstructions were included. The study was obtained within 24 hours of the patient's arrival to this facility. One or more of the following dose reductiontechniques were used: Automated exposure control, adjustment of [...] in the basilar system and vertebral arteries whi ch are diffusely calcified and tortuous. The skeleton is intact. The right maxillary antrum is opacified, but the other paranasal sinuses are clear. The soft tissues are unremarkable. IMPRESSION: Senescent changes are demonstrated in this patient's brain as outlined above. No acute findings are seen. Right maxillary sinusitis is present. The vertebrobasilar anatomy is heavily calcified and tortuous. at 2000 Reported and signed by: Aquiles Wilson M.D. CC: Technologist: Irvin Osullivan, RT(R)(CT); H CTDI: DLP: Trnscrpt: 08/05/2023 (1999) GaneshRLA2 [facility] NAME: CHARLIE HART [address] PHYS: [place] [address] : 1935 AGE: 88 SEX: M LOC: STEVE 2PHONE #: [phone] EXAM DATE: 08/05/2023 STATUS: ADM IN FAX #: [phone] RAD #: D/C DT PAGE 1 Signed Report Patient Name: CHARLIE HART Unit No: [id number] EXAMS: CPT CODE: [id number] HEAD/BRAIN W/O CONT 23757 () Orig Print D/T: S: 08/05/2023 (2002) [facility] NAME: CHARLIE HART [address] PHYS: [place] [address] : 1935 AGE: 88 SEX: M LOC: STEVE Mitchell PHONE #: [phone] EXAM DATE: 08/05/2023 STATUS: ADM IN FAX #: [phone] RAD #: D/C DT PAGE 2 Signed ReportLIPOPROTEIN LDL [id number] 13:15:00* Test Item Value Reference Range Interpretation Comme nts LIPOPROTEIN LDL DIRECT (test code = LDLDIR) 65 mg/dL 100-129 L Refe rence Interval: mg/dL mmol/L --Optimal <100 <2.6Near/above optimal 100-129 2.6-3.3Borderline High 130-159 3.4-4.1High 160-189 4.1-4.9Very High >=190 >=4.9========= This LDL result is a direct measurement.========= [id number]-[id number] 13:15:00* Test Item Value Reference Range Interpretation Comme nts TROPONIN-I (test code = TROPI) 1.510 NG/ML 0.012-0.033 CALLED TO Ada NICOLE& READBACK ON 08/05/23 AT 1112 BY Karen Sweeney [id number] 13:01:00* Test Item Value Reference Range Interpretation Comme [facility] TROPONIN-I (test code = TROPI) 1.280 NG/ML 0.012-0.033 HH CALLED TO MORE TylerR& READBACK ON 08/05/23 AT 1301 BY Karen Sweeney PROTHROMBIN [id number] 11:06:00* Test Item Value Reference Range Interpretation [...] recurrent systemic embolism. 3.0 - 4.5 PTT [id number] 11:06:00* Test Item Value Reference Range Interpretation Comme [facility] PTT ACTIVATED (test code = APTT) > 400.0 SECONDS 27.2-37.9 HH CALLED TO MORE Tyler R& READBACK ON 08/05/23 AT 1106 BY Zackery Wagner COMPREHENSIVE METABOLIC [id number] 10:55:00* Test Item Value Reference Range Interpretation [...] and aplastic anemia) with specific assayson the Power OLEDss 5600 of which Total Protein is one [...] RECOLLECTION NEEDED ON 08/05/23 AT 0818 BY KATIAASON: HEMOLYZEDNOTIFIED PATIENT CARE STAFF: THONY [id number] 10:55:00* Test Item Value Reference Range Interpretation Comme nts PHOSPHOROUS (test code = PHOS) 3.8 MG/DL 2.5-4.5 N RECOLLECTION NEEDED ON 08/05/23 AT 0818 BY Z.LAB.CAREASON: HEMOLYZEDNOTIFIED PATIENT CARE STAFF: [id number] 10:55:00* Test Item Value Reference Range Interpretation Comme nts MAGNESIUM (test code = MAG) 1.8 MG/DL 1.6-2.3 N RECOLLECTION NEEDED ON 08/05/23 AT 0818 BY Z.LAB.CAREASON: HEMOLYZEDNOTIFIED PATIENT CARE STAFF: KIESHAR- XR CHEST [id number] 09:58:00 [facility] : 1935 Sex: M Patient Name: CHARLIE HART Unit No: [id number] EXAMS: CPT CODE: [id number] XR CHEST 1V 92350 EXAMINATION: - XR CHEST 1V. LOCATION: B2. HISTORY: Chest pain. COMPARISON: Radiograph dated 12/16/2021. TECHNIQUE: Single AP view of the chest was obtained. FINDINGS: The heart is normal in size. Left pacemaker device is present. Linear bibasilar opacities are seen. Right shoulder arthroplastyis noted. No acute osseous abnormality is identified. IMPRESSION: Mild bibasilar atelectasis. at 0958 Reported and signed by: Carito Ventura CC: Clinton Moreau MD Technologist: RICH MERA RT Transcrpt Date/Tm/Trnsp: 08/05/2023 (0958) IzzyR.PR7 Orig Print D/T: S: 08/05/2023 (1001) [facility] NAME: CHARLIE HART [address] PHYS: [place] [address] : 1935 AGE: 88 SEX: M LOC: STEVE Mitchell PHONE #: [phone] EXAM DATE: 08/05/2023 STATUS: ADM IN FAX #: [phone] RADIOLOGY NO: PAGE 1 Signed ReportPLATELET [id number] 09:54:00* Test Item Value Reference Range Interpretation Comme nts PLATELET COUNT (test code = PLT) 154 K/MM3 129-368 N CBC W/AUTO [id number] 07:40:00* Test Item Value Reference Range Interpretation [...] NRBC#) 0.00 K/mm3 0.0-0.1 N GLUCOSE BEDSIDE [id number] 11:56:00* Test Item Value Reference Range Interpretation Comme nts GLUCOSE BEDSIDE TESTING (pastora t code = GLUBED) 100 MG/DL 60-99 H BASIC METABOLIC [id number] 08:16:00* Test Item Value Reference Range Interpretation [...] BLOOD, REASON: PT CARENOTIFIED PATIENT CARE STAFF: DENISEON 12/16/21 AT 0638 BY Julia Eli- XR CHEST [id number] 08:16:00 [facility] 1935 Sex: M Patient Name: CHARLIE HART Unit No: [id number] EXAMS: CPT CODE: [id number] XR CHEST [id number] Portable AP chest, 1 view Location Code: [...] Jamari Up, RT(R) Transcrpt Date/Tm/Trnsp: 12/16/2021 (0816) GaneshRAO1 Orig Print D/T: S: 12/16/2021 (0819) [facility] NAME: CHARLIE HART [address] PHYS: [place] [address] : 1935 AGE: 86 SEX: M LOC: ZCarole350 A PHONE #: [phone] DATE: 12/16/2021 STATUS: ADM IN FAX #: [phone] RADIOLOGY NO: PAGE 1 Signed ReportGLUCOSE BEDSIDE [id number] 08:11:00* Test Item Value Reference Range Interpretation Comme nts GLUCOSE BEDSIDE TESTING (pastora t code = GLUBED) 99 MG/DL 60-99 N CBC W/AUTO [id number] 08:08:00* Test Item Value Reference Range Interpretation [...] 12/16/21 AT 0639 BY Julia EliGLUCOSE BEDSIDE [id number] 20:24:00* Test Item Value Reference Range Interpretation Comme nts GLUCOSE BEDSIDE TESTING (pastora t code = GLUBED) 99 MG/DL 60-99 N GLUCOSE BEDSIDE [id number] 16:02:00* Test Item Value Reference Range Interpretation Comme nts GLUCOSE BEDSIDE TESTING (pastora t code = GLUBED) 117 MG/DL 60-99 H - XR CHEST [id number] 12:07:00 [facility] : 1935 Sex: M Patient Name: CHARLIE HART Unit No: [id number] EXAMS: CPT CODE: [id number] XR CHEST 1V 36710 HISTORY: Status post ICD Location: C3 COMPARISON:None FINDINGS: There is mild cardiomegaly. Aortic calcifications are present. Vascularity is borderline prominent. Left subclavian pacemaker is noted with tips overlying the RA and RV. No pneumothorax. IMPRESSION: 1. Cardiomegaly with mild vascular congestion. at 1207 Reported and signed by: Aquiles Powell MD CC: Deyvi Celis MD Technologist: MICHAEL Evans, RT(R) Transcrpt Date/Tm/Trnsp: 12/15/2021 (1556) IzzyR.RXC2 [facility] NAME: CHARLIE HART [address] PHYS: [place] [address] : 1935 AGE: 86 SEX: M : Z.350 A PHONE #: [phone] EXAM DATE: 12/15/2021 STATUS: ADM IN FAX #: [phone] RADIOLOGY NO: PAGE 1 Signed ReportGLUCOSE BEDSIDE TESTING 2021-12-15 07:29:00* Test Item Value Reference Range Interpretation Comme nts GLUCOSE BEDSIDE TESTING (pastora t code = GLUBED) 79 MG/DL 60-99 N PROTHROMBIN [id number] 06:17:00* Test Item Value Reference Range Interpretation [...] recurrent systemic embolism. 3.0 - 4.5 PTT [id number] 06:17:00* Test Item Value Reference Range Interpretation Comme nts PTT ACTIVATED (test code = APTT) 25.2 SECONDS 26.2-35.4 L BASIC METABOLIC [id number] 06:16:00* Test Item Value Reference Range Interpretation [...] CA) 8.7 MG/DL 8.4-10.2 N CBC W/AUTO [id number] 06:05:00* Test Item Value Reference Range Interpretation [...] K/mm3 0.0-0.1 N COVID 19 Asymptomatic IH [id number] 03:54:00* Test Item Value Reference Range Interpretation [...] virus (antigen) in the sample." BASIC METABOLIC [id number] 07:26:00* Test Item Value Reference Range Interpretation [...] code = CA) 7.8 MG/DL 8.4-10.2 L [id number] 07:26:00* Test Item Value Reference Range Interpretation Comme nts TROPONIN-I (test code = TROPI) < 0.012 NG/ML 0.012-0.033 L CBC W/AUTO [id number] 06:53:00* Test Item Value Reference Range Interpretation [...] = NRBC#) 0.00 K/mm3 0.0-0.1 N DIFFERENTIAL [id number] 06:53:00* Test Item Value Reference Range Interpretation Comme nts RBC MORPHOLOGY REQUIRED (pastora t code = RBCM) PLATELET ESTIMATE (test code = PLTEST) ADEQUATE PLATELET MORPHOLOGY (test co de = PLTMORPH) NORMAL [id number] 01:42:00* Test Item Value Reference Range Interpretation Comme nts TROPONIN-I (test code = TROPI) < 0.012 NG/ML 0.012-0.033 L THYROID STIMULATING [id number] 18:47:00* Test Item Value Reference Range Interpretation Comme nts THYROID STIMULATING HORMONE (test code = TSH) 1.310 MIU/L 0.465-4.68 N Please be aware that bias results for TSH may occur forpatient who are taking Biotin supplements. COMPREHENSIVE METABOLIC [id number] 17:48:00* Test Item Value Reference Range Interpretation [...] and aplastic anemia) with specific assayson the Power OLEDss 5600 of which Total Protein is one [...] 56 UNITS/L 38-126 N NT PRO-BRAIN NATRIURETIC [id number] 17:48:00* Test Item Value Reference Range Interpretation Comme nts NT PRO-BRAIN NATRIURETIC PEP TI (test code = PROBNP) 728.0 pg/mL 0-450 H [id number] 17:48:00* Test Item Value Reference Range Interpretation Comme nts TROPONIN-I (test code = TROPI) < 0.012 NG/ML 0.012-0.033 L CBC W/AUTO [id number] 17:19:00* Test Item Value Reference Range Interpretation [...] Notes Date/Time Note Provider Source 2023-08-26 11:41:00 [id number] 26GFFPv0Ts/1EcsvbkU2E1fM8kt7577-81-95L61:41:00 [facility] ([facility]) Cardiothoracic Surg. Prog NoteREPORT #: [id number] REPORT STATUS: Signed DATE: 08/26/23 TIME: 1141 PATIENT: CHARLIE HART UNIT #: [id number] #: [id number] ROOM #: P.0418 BED: A : 35 AGE: 88 SEX: M ATTEND: Tony Gautam MD ADM AUTHOR: Rosie Starr ATTENTION EDITS and/or ADDENDA must be made in Patient Keeper for this note. Edits and ammendments created in [facility] are not visible in Patient Keeper or the legal medical record ([facility]). -- ASSESSMENT AND PLAN -- HOSPITAL COURSE TO DATE:08/09: [facility] @ [facility] by Dr. Celis + CAD. Transfer from [place] forconsideration of CABG.08/13: CABG x 3 (STANLEY-LAD, SVG-ramus, SVG-OM1) by Dr. Gil: Atrial lead extraction and new atrial lead placement by Dr Dilshad Strong08/19: RV lead revision and upgrade to BiV pacemaker by Dr. Strong08/20: Transfer to [facility]. GENERAL ASSESSMENT:Patient is an 88 year-old male with symptomatic multi-vessel coronary arterydisease. POD#13 CABG x 3 (STANLEY-LAD, SVG-ramus, SVG-OM1) by Dr. Powell on 08/13. No events overnight. Tolerating all targeted therapy. Incisions are healingwell. Appetite is adequate. No voiding issues - on lasix BID. Pain iswell-controlled. Acute debility - ambulating with PT. Will benefit considerablyfrom rehab. Patient has been accepted by [facility] in [place]. Pendingtransfer. Plan:- Cleared for discharge to [facility] today.- Continue all guideline directed therapy at discharge including Plavix,Eliquis, statin and beta lois.- Follow-up with Dr. Powell once discharged home. PLAN DISCUSSED WITH:Patient seen on AM rounds with Dr. Powell. -- SUBJECTIVE -- PATIENT NARATIVE:No events overnight. Patient resting in bed this morning. Ready to transitionto [facility]. -- OBJECTIVE -- VITALS (08/25 11:41 - [...] MG PO DAILYIPRATROPIUM BROMIDE 0.5 MG NEB TOA7BLGZPEXYQJY 20 MG PO QAMNITROGLYCERIN 0.4 MG SL [...] this note. Edits and ammendments created in [employer] are not visible in Patient Keeper or the legal medical record ([facility]). [facility] #: [id number] OF REPORTPRProgress hpfx8152-75-86V71:41:00P.[place]-VJWI95883679-3539BFSs ailable for patient ncpzXNCYOPMRLHOXMP8816-37-89Z88:09:37 [facility] 2023-08-26 10:10:00 [id number] wfBcdpj3ji5p1ZVbtWucCUNHdrYdk LYnfoEDHOLQSZQ/lIgRxiQqtqdR5712-93-95P15:10:00 [facility] ([facility]) Hospitalist D/C Summary REPORT #: [id number] REPORT STATUS: Signed DATE: 08/26/23 TIME: 1010 PATIENT: CHARLIE HART UNIT #: [id number] #: [id number] ROOM #: P.0418 BED: A : 35 AGE: 88 SEX: M ATTEND: Tony Gautam MD ADM AUTHOR: Tony Gautam MD ATTENTION EDITS and/or ADDENDA must be made in Patient Keeper for this note. Edits and ammendments created in [facility] are not visible in Patient Keeper or the legal medical record ([facility]). -- PROBLEMS/PROCEDURES -- ADMISSION DATE:08/09/23 ADMITTING DIAGNOSES: - Acute on chronic systolic (congestive) heart failure - Afib - Atherosclerosis of [place] coronary artery without angina pectoris,unspecified whether [place] or transplanted heart - Atrial fibrillation - [...] heart failure - Afib - Atherosclerosis of [place] coronary artery without angina pectoris,unspecified whether [place] or transplanted heart - Atrial fibrillation - [...] suggestive of angina. Hewas taken to the [place] room on August 05, 2023 where he wasruled in for non-ST segment elevation myocardial infarction. He was started onheparin and transferred to [facility] where he was observed for a coupleof days and improved on medical therapy.Echocardiogram showed apical wall motion abnormalities with preserved leftventricular ejection fraction. As the patient was doing well on medicalmanagement, he was discharged from the other hospital without intervention. Hewas seen by his primary covered button maker, Dr Deyvi Celis and admitted forselective coronary angiogram on August 09, 2023 to [facility].This showed multivessel coronary artery disease, LAD 90 to 99% lesion, leftcircumflex proximal 90%, 95% obtuse marginal lesion; Occluded proximal RCA.Left ventricular end-diastolic pressure 12; Left ventricular ejection mxvwaqcf67%, severe anteroapical hypokinesis. He has been transferred to [facility] for consideration of CABG by [...] was very functional prior to this hospitalization.Insurance [employer] has asked for peer to peer. Precedence [...] and EP services for discharge to the [facility].Insurance has approved [facility] and I anticipate that he will be discharged 08/26. 08/26/2023: The patient is hemodynamically stable and [facility].He will follow-up with his primary [...] anteroapical hypokinesis.The patient is being admitted to [facility] for higher level of care.Optimized [...] Neb Soln (Atrovent Neb Soln) 0.5MG Neb ATI6EEsy/Al/Simeth Oral Liquid (Maalox Max Oral Liquid) 30ML PO Q6H PRNindigestion/heartburnMethocarbamol Tab (Robaxin Tab) 500MG PO TIDMetoprolol Succinate XL Tab (Toprol XL Tab) 12.5MG PO DAILYPreserVision AREDS 7,160 unit-113 mg-100 unit tablet (vitaminsA,C,Q-gdzo-amswtx) 1 TAB PO DAILY for home medication [...] Parameters: Meds given [facility]Meds to be Given:(Enter [...] Monitoring: DailyAdditional instructions: [facility] meds per med recAttending Physician: ROXANA:João Powell MDAttending physician follow up timeframe: 2 weeksAttending physician special instructions: post CABG follow upAdditional Discharge Routines: PCP Follow-Up Attending Follow-Up [employer] Follow-Up Ordered by: Tony Gautam MD Aug [...] patient was instructed to present to the nearestEmergency Department or call 911 should their symptoms [...] Gautam MD on 09/16/23 at 23:18 at 5767ATTENTION EDITS and/or ADDENDA must be made in Patient Keeper for this note. Edits and ammendments created in [employer] are not visible in Patient Keeper or the legal medical record ([facility]). [facility] #: [id number] OF REPORTDSDischarge xnvdwxe6747-15-33W93:10:00P.CA-[id number] VAvailable for patient isnnNHKPLKDEGJQTBV7024-16-91I12:19:11 [facility] 2023-08-26 09:10:00 [id number] /VUrJ7hSDSURJOv1fSv5frdsNnLSa Fo0BDJ+pUvl3KVjs4yoLpHML3GB2653-58-37G01:10:00 [facility] ([facility]) Cardiology Progress Notes REPORT #: [id number] REPORT STATUS: Signed DATE: 08/26/23 TIME: 909 PATIENT: CHARLIE HART UNIT #: [id number] #: [id number] ROOM #: P.0418 BED: A : 35 AGE: 88 SEX: M ATTEND: Tony Gautam MD ADM AUTHOR: Annette Chow ATTENTION EDITS and/or ADDENDA must be made in Patient Keeper for this note. Edits and ammendments created in [facility] are not visible in Patient Keeper or the legal medical record ([facility]). -- CO-SIGNATURE -- COMMENTS:The patient was seen [...] pain, suggestive of angina, and presented at [facility] emergency room on 08/05/22 for further evaluation and management. He wasruled in NSTEMI, started on heparin drip and transferred to [facility]. He wasobserved and pain resolved on medical therapy (per records). He was discharged.He was seen by cardiology services (Dr. Celis) as outpatient and underwentelective coronary angiogram on 08/09/22 at [facility] and showed multi-vesselcoronary artery disease, LAD (90 to 99% lesion),LCx proximal 90%, 95% obtusemarginal lesion, RCA (occluded proximal), LVEDP 12, LVEF 40%, severe anteroapical hypokinesis. He was transferred here to [facility] for considerationof CABG by Dr. João Powell. [...] for placement, IPR vs. SNF, accepted at [facility]- Cleared by CV surgery to be discharged when accepted to IPR. He willfollow-up with Dr. Powell and his covered button maker- From cardiology standpoint the patient is stable and cleared to be dischargedwhen cleared by consultants and accepted to IPR/SNF -- SUBJECTIVE -- CHIEF COMPLAINT:Severe multi-vessel coronary artery disease PATIENT NARRATIVE:Sitting in bed. He denies complaints today. Seen by CV surgery today.Awaiting transfer to [facility]. No acute events overnight. -REVIEW OF SYSTEMS- [...] -- OBJECTIVE -- VITALS (08/25 07:22 - 01/30 07:22):Temperature F: 98.5Temperature C: 36.7 (36.7 - [...] MG PO DAILYIPRATROPIUM BROMIDE 0.5 MG NEB [id number] 20 MG PO QAMNITROGLYCERIN 0.4 MG SL [...] DETAIL:Plan of care discussed with Dr. Gino eDng Signed in PatientKeeper by ANNETTE CHOW on 08/26/23 at 13:10 Cosigned by GINO DENG MD on 09/06/23 at 14:04 at 1404 at 1404ATTENTION EDITS and/or ADDENDA must be made in Patient Keeper for this note. Edits and ammendments created in [facility] are not visible in Patient Keeper or the legal medical record ([facility]). [facility] #: [id number] OF REPORTPRProgress wcox8579-57-17H82:10:00P.MA-[id number] ailable for patient yxawURHSKSLCEFAOIB1913-61-94Q35:14:03 [facility] 2023-08-25 22:39:00 [id number] vfbi146iFa3cQK+AVyHQqJmC5JqPc IQJ5fHTIO3dDKMPNsdQb9AlyAiY6439-03-57M53:39:00 [facility] ([facility]) Med Order Sheet REPORT #: [id number] REPORT STATUS: Signed DATE: 08/25/23 TIME: 2238 PATIENT: CHARLIE HART UNIT #: [id number] #: [id number] ROOM #: [facility] BED: A : 35 AGE: 88 SEX: M ATTEND: Tony Gautam MD ADM AUTHOR: Tony Gautam MD ATTENTION EDITS and/or ADDENDA must be made in Patient Keeper for this note. Edits and ammendments created in [facility] are not visible in Patient Keeper or the legal medical record ([facility]). Discharge Medication Reconciliation DISCHARGE MEDICATION LISTNew: PreserVision AREDS 7,160 unit-113 mg-100 unit tablet (vitaminsA,C,Z-vvtu-wosufs) Dose: 1 TAB PO DAILY for home [...] Soln (Atrovent Neb Soln) Dose: 0.5MG Neb QBZ3FUkr/Al/Simeth Oral Liquid (Maalox Max Oral Liquid) Dose: [...] IV Q6H PRN nausea and vomiting at 7733ATTENTION EDITS and/or ADDENDA must be made in Patient Keeper for this note. Edits and ammendments created in [employer] are not visible in Patient Keeper or the legal medical record ([facility]). RPT #: [id number] OF REPORTCLClinical ecbd4836-68-09P65:39:00P.CO-[id number] ailable for patient ihnxCTRWGMBAHGHHFT2210-34-26D34:39:29 [facility] 2023-08-25 22:11:00 [id number] IqkY11fyukDFcqBGr6cV7/D5PBro/ Hb8u9WbMIm1GuyjL291MHx+HtKq8493-63-66W11:11:00 [facility] ([facility]) Hospitalist Progress Note REPORT #: [id number] REPORT STATUS: Signed DATE: 08/25/23 TIME: 2210 PATIENT: CHARLIE HART UNIT #: [id number] #: [id number] ROOM #: P.0418 BED: A : 35 AGE: 88 SEX: M ATTEND: Tony Gautam MD ADM AUTHOR: Tony Gautam MD ATTENTION EDITS and/or ADDENDA must be made in Patient Keeper for this note. Edits and ammendments created in [employer] are not visible in Patient Keeper or the legal medical record ([facility]). -- ASSESSMENT AND PLAN -- GENERAL ASSESSMENT: ASSESSMENT AND PLAN: 1. Recent non-ST segment elevation myocardial infarction, around July.S/p coronary angiogram 08/09 showing multivessel coronary artery disease,not amenable to percutaneous coronary intervention.LAD 90 to 99% lesion, left circumflex proximal 90%, 95% obtuse marginal lesion;Occluded proximal RCA. Left ventricular end-diastolic pressure 12;Left ventricular ejection fraction 40%, severe anteroapical hypokinesis.The patient is being admitted to [facility] for higher level of care.Optimized [...] and the patient will be discharged to [facility] on 08/26/2023. -- SUBJECTIVE -- HPI: [...] suggestive of angina. Hewas taken to the [place] emergency room on August 05, 2023 where he wasruled in for non-ST segment elevation myocardial infarction. He was started onheparin and transferred to [facility] where he was observed for a coupleof days and improved on medical therapy.Echocardiogram showed apical wall motion abnormalities with preserved leftventricular ejection fraction. As the patient was doing well on medicalmanagement, he was discharged from the other hospital without intervention. Hewas seen by his primary covered button maker, Dr Deyvi Celis and admitted forselective coronary angiogram on August 09, 2023 to [facility].This showed multivessel coronary artery disease, LAD 90 to 99% lesion, leftcircumflex proximal 90%, 95% obtuse marginal lesion; Occluded proximal RCA.Left ventricular end-diastolic pressure 12; Left ventricular ejection sojkynch09%, severe anteroapical hypokinesis. He has been transferred to [facility] for consideration of CABG by [...] and EP services for discharge to the IPR.Insurance has approved [facility] and I anticipate that he will be [...] MG PO DAILYIPRATROPIUM BROMIDE 0.5 MG NEB [id number] 20 MG PO QAMNITROGLYCERIN 0.4 MG SL [...] this note. Edits and ammendments created in [facility] are not visible in Patient Keeper or the legal medical record (H[facility]). [facility] #: [id number] OF REPORTPRProgress csfz8393-35-17R02:11:00P.BS-[id number] ailable for patient hwxsFPNIHEYSJYJLKI7429-24-14N40:15:58 [facility] 2023-08-25 11:21:00 [id number] 3WNh9LnJsJLr/YcR8LLELHHBGRsmj IxGpfkwtMueaFWEWxREzYGFtmWi3027-56-02J69:21:00 [facility] ([facility]) Cardiology Progress Notes REPORT #: [id number] REPORT STATUS: Signed DATE: 08/25/23 TIME: 1121 PATIENT: CHARLIE HART UNIT #: [id number] #: [id number] ROOM #: [facility] BED: A : 35 AGE: 88 SEX: M ATTEND: Tony Guatam MD ADM AUTHOR: Kaleigh Gonzalez ATTENTION EDITS and/or ADDENDA must be made in Patient Keeper for this note. Edits and ammendments created in [employer] are not visible in Patient Keeper or [...] pacing morphology-2 week follow up Dilshad Strong, [facility] [place] ElectrophysiologistTexas Cardiac Arrhythmia Signed in PatientKeeper by DILSHAD STRONG MD on 02/19/24 at 18:04 -- ASSESSMENT AND PLAN -- [...] POC w/ Mr Hart is daughter Elizabeth (#[phone]) and available by phone- Educational materials/folder already [...] recurrent chest pain and angina, transferred from [place] ER08/05/23 for emergent bypass, coronary angiogram on 08/09/22 [facility] for multivessel CAD involving LAD (90-99% lesion), [...] MG PO DAILYIPRATROPIUM BROMIDE 0.5 MG NEB TNV1LAGMXOLLWEJ 20 MG PO QAMNITROGLYCERIN 0.4 MG SL [...] this note. Edits and ammendments created in [facility] are not visible in Patient Keeper or the legal medical record ([facility]). RPT #: [id number] OF REPORTPRProgress mnxh7573-93-81M39:21:00P.NM-[id number] ailable for patient mgzfOWXOSCBFGPWKDR3171-61-19Q17:05:41 [facility] 2023-08-25 08:52:00 [id number] UCH3/Y9XlVyTfZ2zB8zXjhTGZ2EOR UnnG6qCiMF04chTFyIn3Hggx0896574-69-27V25:52:00 [facility] ([facility]) Cardiology Progress Notes REPORT #: [id number] REPORT STATUS: Signed DATE: 08/25/23 TIME: 851 PATIENT: CHARLIE HART UNIT #: [id number] #: [id number] ROOM #: P.0418 BED: A : 35 AGE: 88 SEX: M ATTEND: Tony Gautam MD ADM AUTHOR: Annette Chow ATTENTION EDITS and/or ADDENDA must be made in Patient Keeper for this note. Edits and ammendments created in [employer] are not visible in Patient Keeper or [...] pain, suggestive of angina, and presented at [facility] emergency room on 08/05/22 for further evaluation and management. He wasruled in NSTEMI, started on heparin drip and transferred to [facility]. He wasobserved and pain resolved on medical therapy (per records). He was discharged.He was seen by cardiology services (Dr. Celis) as outpatient and underwentelective coronary angiogram on 08/09/22 at [facility] and showed multi-vesselcoronary artery disease, LAD (90 to 99% lesion),LCx proximal 90%, 95% obtusemarginal lesion, RCA (occluded proximal), LVEDP 12, LVEF 40%, severe anteroapical hypokinesis. He was transferred here to [facility] for considerationof CABG by Dr. João Powell. [...] He willfollow-up with Dr. Powell and his covered button maker- From cardiology standpoint the patient is stable [...] MG PO DAILYIPRATROPIUM BROMIDE 0.5 MG NEB MJH1VUXNVMBAEQU 20 MG PO QAMNITROGLYCERIN 0.4 MG SL [...] this note. Edits and ammendments created in [facility] are not visible in Patient Keeper or the legal medical record ([facility]). RPT #: [id number] OF REPORTPRProgress yrxm7922-71-16R87:52:00P.EE-[id number] ailable for patient lcugQOOOIIXACPTOSL3352-77-36D64:14:02 [facility] 2023-08-24 13:05:00 [id number] /B0ZLf3heuha2daJ0ZaaDIIr7L6lb dY81eKZfgon3fV9c6+gNqJi8Av81486-94-03I93:05:00 [facility] ([facility]) Hospitalist Progress Note REPORT #: [id number] REPORT STATUS: Signed DATE: 08/24/23 TIME: 1305 PATIENT: CHARLIE HART UNIT #: [id number] #: [id number] ROOM #: P.0418 BED: A : 35 AGE: 88 SEX: M ATTEND: Tony Gautam MD ADM AUTHOR: Tony Gautam MD ATTENTION EDITS and/or ADDENDA must be made in Patient Keeper for this note. Edits and ammendments created in [employer] are not visible in Patient Keeper or [...] anteroapical hypokinesis.The patient is being admitted to [facility] for higher level of care.Optimized [...] suggestive of angina. Hewas taken to the [place] emergency room on August 05, 2023 where he wasruled in for non-ST segment elevation myocardial infarction. He was started onheparin and transferred to [facility] where he was observed for a coupleof days and improved on medical therapy.Echocardiogram showed apical wall motion abnormalities with preserved leftventricular ejection fraction. As the patient was doing well on medicalmanagement, he was discharged from the other hospital without intervention. Hewas seen by his primary covered button maker, Dr Deyvi Celis and admitted forselective coronary angiogram on August 09, 2023 to [facility].This showed multivessel coronary artery disease, LAD 90 to 99% lesion, leftcircumflex proximal 90%, 95% obtuse marginal lesion; Occluded proximal RCA.Left ventricular end-diastolic pressure 12; Left ventricular ejection dbxqywch01%, severe anteroapical hypokinesis. He has been transferred to [facility] for consideration of CABG by [...] MG PO DAILYIPRATROPIUM BROMIDE 0.5 MG NEB HQJ0UGJMUBDDNBN 20 MG PO QAMNITROGLYCERIN 0.4 MG SL [...] this note. Edits and ammendments created in [employer] are not visible in Patient Keeper or the legal medical record ([facility]). RPT #: [id number] OF REPORTPRProgress lcnq0483-99-38U29:05:00P.AU-[id number] ailable for patient wttgMCNHXWKPMZKOCZ9386-91-81Q56:06:51 [facility] 2023-08-24 09:15:00 [id number] TEpZlO5+RQfsuyoX+4RzN2D00tZq6 CWz79czVFRfz1a+qKMPAXz+TrIN8198-25-07Z18:15:00 [facility] ([facility]) Cardiology Progress Notes REPORT #: [id number] REPORT STATUS: Signed DATE: 08/24/23 TIME: 914 PATIENT: CHARLIE HART UNIT #: [id number] #: [id number] ROOM #: P.0418 BED: A : 35 AGE: 88 SEX: M ATTEND: Tony Gautam MD ADM AUTHOR: Annette Chow ATTENTION EDITS and/or ADDENDA must be made in Patient Keeper for this note. Edits and ammendments created in [facility] are not visible in Patient Keeper [...] pain, suggestive of angina, and presented at [facility] emergency room on 08/05/22 for further evaluation and management. He wasruled in NSTEMI, started on heparin drip and transferred to [facility]. He wasobserved and pain resolved on medical therapy (per records). He was discharged.He was seen by cardiology services (Dr. Celis) as outpatient and underwentelective coronary angiogram on 08/09/22 at [facility] and showed multi-vesselcoronary artery disease, LAD (90 to 99% lesion),LCx proximal 90%, 95% obtusemarginal lesion, RCA (occluded proximal), LVEDP 12, LVEF 40%, severeanteroapical hypokinesis. He was transferred here to [facility] for considerationof CABG by Dr. João Powell. [...] MG PO DAILYIPRATROPIUM BROMIDE 0.5 MG NEB CZY8NDAUDYYWSKO 20 MG PO QAMNITROGLYCERIN 0.4 MG SL [...] this note. Edits and ammendments created in [employer] are not visible in Patient Keeper or the legal medical record (HPF). RPT #: [id number] OF REPORTPRProgress hlhe7002-45-48W19:15:00P.CN-[id number] ailable for patient vicuBISYFVFWJFYHZF7333-67-72J09:06:34 [facility] 2023-08-23 13:08:00 [id number] 12Ak+U3Tae9IUVnyeCkukdPSAouEg sMEtjFAYATnNjOVfBnELOwPrxh/7686-92-15G14:08:00 [facility] ([facility]) Hospitalist Progress Note REPORT #: [id number] REPORT STATUS: Signed DATE: 08/23/23 TIME: 1308 PATIENT: CHARLIE HART UNIT #: [id number] #: [id number] ROOM #: P.0418 BED: A : 35 AGE: 88 SEX: M ATTEND: Tony Gautam MD ADM AUTHOR: Tony Gautam MD ATTENTION EDITS and/or ADDENDA must be made in Patient Keeper for this note. Edits and ammendments created in [employer] are not visible in Patient Keeper or [...] anteroapical hypokinesis.The patient is being admitted to [facility] for higher level of care.Optimized [...] suggestive of angina. Hewas taken to the [place] emergency room on August 05, 2023 where he wasruled in for non-ST segment elevation myocardial infarction. He was started onheparin and transferred to [facility] where he was observed for a coupleof days and improved on medical therapy.Echocardiogram showed apical wall motion abnormalities with preserved leftventricular ejection fraction. As the patient was doing well on medicalmanagement, he was discharged from the other hospital without intervention. Hewas seen by his primary covered button maker, Dr Deyvi Celis and admitted forselective coronary angiogram on August 09, 2023 to [facility].This showed multivessel coronary artery disease, LAD 90 to 99% lesion, leftcircumflex proximal 90%, 95% obtuse marginal lesion; Occluded proximal RCA.Left ventricular end-diastolic pressure 12; Left ventricular ejection cotlyzxy85%, severe anteroapical hypokinesis. He has been transferred to [facility] for consideration of CABG by [...] source: Monitor I/Os (08/22 07:00 - 08/23 07:00):William 400Intake 400 -EXAM- GENERAL: Well developed, well [...] MG PO DAILYIPRATROPIUM BROMIDE 0.5 MG NEB [id number] 20 MG PO QAMNITROGLYCERIN 0.4 MG SL [...] this note. Edits and ammendments created in [employer] are not visible in Patient Keeper or the legal medical record ([facility]). RPT #: [id number] OF REPORTPRProgress sttv5193-66-89I76:08:00P.GM-[id number] ailable for patient zndsNKMTWKXGEIQHZF8171-88-10W80:12:44 [facility] 2023-08-23 08:59:00 [id number]/ZJZgZ CTNn6tSjXhrD5KjhTcXWM39CU2aaG +/hFNI4yDkOwi5kHM8JTF1/NHYu5527-30-80S12:59:00 [facility] ([facility]) Cardiology Progress Notes REPORT #: [id number] REPORT STATUS: Signed DATE: 08/23/23 TIME: 858 PATIENT: CHARLIE HART UNIT #: [id number] #: [id number] ROOM #: P.0418 BED: A : 35 AGE: 88 SEX: M ATTEND: Tony Gautam MD ADM AUTHOR: Annette Chow ATTENTION EDITS and/or ADDENDA must be made in Patient Keeper for this note. Edits and ammendments created in [employer] are not visible in Patient Keeper or [...] pain, suggestive of angina, and presented at [facility] emergency room on 08/05/22 for further evaluation and management. He wasruled in NSTEMI, started on heparin drip and transferred to [facility]. He wasobserved and pain resolved on medical therapy (per records). He was discharged.He was seen by cardiology services (Dr. Celis) as outpatient and underwentelective coronary angiogram on 08/09/22 at [facility] and showed multi-vesselcoronary artery disease, LAD (90 to 99% lesion),LCx proximal 90%, 95% obtusemarginal lesion, RCA (occluded proximal), LVEDP 12, LVEF 40%, severeanteroapical hypokinesis. He was transferred here to [facility] for considerationof CABG by Dr. João Powell. [...] MG PO DAILYIPRATROPIUM BROMIDE 0.5 MG NEB BNY0SMQLXSWJSJG 20 MG PO QAMNITROGLYCERIN 0.4 MG SL [...] this note. Edits and ammendments created in [facility] are not visible in Patient Keeper or the legal medical record (HPF). [facility] #: [id number] OF REPORTPRProgress jvzc9200-57-96O84:59:00P.QA-[id number] ailable for patient soygAGOHWVPLWDHNXQ2261-04-47G65:07:06 [facility] 2023-08-22 15:36:00 [id number] YmWQCwgTx8gMdK1wwJsDTvlNwOtCB gOBFWZhK7gCtm4/Sgiy0j1o2QOK1177-27-99R88:36:00 [facility] ([facility]) Hospitalist Progress Note REPORT #: [id number] REPORT STATUS: Signed DATE: 08/22/23 TIME: 153 PATIENT: CHARLIE HART UNIT #: [id number] #: [id number] ROOM #: [facility] BED: A : 35 AGE: 88 SEX: M ATTEND: Tony Gautam MD ADM AUTHOR: Tony Gautam MD ATTENTION EDITS and/or ADDENDA must be made in Patient Keeper for this note. Edits and ammendments created in [employer] are not visible in Patient Keeper or the legal medical record ([facility]). -- ASSESSMENT AND PLAN -- GENERAL ASSESSMENT: ASSESSMENT AND PLAN: 1. Recent non-ST segment elevation myocardial infarction, around July.S/p coronary angiogram 08/09 showing multivessel coronary artery disease,not amenable to percutaneous coronary intervention.LAD 90 to 99% lesion, left circumflex proximal 90%, 95% obtuse marginal lesion;Occluded proximal RCA. Left ventricular end-diastolic pressure 12;Left ventricular ejection fraction 40%, severe anteroapical hypokinesis.The patient is being admitted to [facility] for higher level of care.Optimized [...] suggestive of angina. Hewas taken to the [place] emergency room on August 05, 2023 where he wasruled in for non-ST segment elevation myocardial infarction. He was started onheparin and transferred to [facility] where he was observed for a coupleof days and improved on medical therapy.Echocardiogram showed apical wall motion abnormalities with preserved leftventricular ejection fraction. As the patient was doing well on medicalmanagement, he was discharged from the other hospital without intervention. Hewas seen by his primary covered button maker, Dr Deyvi Celis and admitted forselective coronary angiogram on August 09, 2023 to [facility].This showed multivessel coronary artery disease, LAD 90 to 99% lesion, leftcircumflex proximal 90%, 95% obtuse marginal lesion; Occluded proximal RCA.Left ventricular end-diastolic pressure 12; Left ventricular ejection ofatellk79%, severe anteroapical hypokinesis. He has been transferred to [facility] for consideration of CABG by [...] very functional prior to this hospitalization. Insurance [employer] has asked for peer to peer.Precedence suggests [...] bilaterally with normal respiratory effort.HEART: RRR; II/ LIUS at LLSBABDOMEN: Soft, non-tender, no organomegaly, no [...] MG PO DAILYIPRATROPIUM BROMIDE 0.5 MG NEB EEN6BHOAWLERYPQ 20 MG PO QAMNITROGLYCERIN 0.4 MG SL [...] this note. Edits and ammendments created in [employer] are not visible in Patient Keeper or the legal medical record ([facility]PF). RPT #: [id number] OF REPORTPRProgress wrle8837-04-48N71:36:00P.SH-[id number] ailable for patient sdkgOHWEMGXTMOYFGN1022-62-38R01:43:02 [facility] 2023-08-22 08:44:00 [id number] CqPzghjLdG/+UqOhQjuCJ9NH8jfn3 +9X7rIZYOHzxj9XuuychgeG9m393343-98-39V17:44:00 [facility] ([facility]) Cardiology Progress Notes REPORT #: [id number] REPORT STATUS: Signed DATE: 08/22/23 TIME: 08 PATIENT: CHARLIE HART UNIT #: [id number] #: [id number] ROOM #: [facility]8 BED: A : 35 AGE: 88 SEX: M ATTEND: Tony Gautam MD ADM AUTHOR: Annette Chow ATTENTION EDITS and/or ADDENDA must be made in Patient Keeper for this note. Edits and ammendments created in [facility] are not visible in Patient Keeper [...] pain, suggestive of angina, and presented at [facility] emergency room on 08/05/22 for further evaluation and management. He wasruled in NSTEMI, started on heparin drip and transferred to [facility]. He wasobserved and pain resolved on medical therapy (per records). He was discharged.He was seen by cardiology services (Dr. Celis) as outpatient and underwentelective coronary [facility] on 08[facility] Hospital and showed multi-vesselcoronary artery disease, LAD (90 to 99% lesion),LCx proximal 90%, 95% obtusemarginal lesion, RCA (occluded proximal), LVEDP 12, LVEF 40%, severeanteroapical hypokinesis. He was transferred here to [facility] for consideration of CABG by Dr. João [...] MG PO DAILYIPRATROPIUM BROMIDE 0.5 MG NEB CGZ3RDQTGGOLXVV 20 MG PO QAMNITROGLYCERIN 0.4 MG SL [...] this note. Edits and ammendments created in [facility] are not visible in Patient Keeper or the legal medical record (HPF). [facility] #: [id number] OF REPORTPRProgress zuit3309-32-99V86:44:00P.JH-[id number] ailable for patient lfvqGCKVOTCXAGBZPP4909-29-78J70:14:02 [facility] 2023-08-21 10:28:00 [id number] Kx/6KKOEAIYUVyj6YWwtj+Pp1Ox7R ip6HKfLsDaEoK4CewNhCdIlrGOT4779-60-26S42:28:00 [facility] ([facility]) Hospitalist Progress Note REPORT #: [id number] REPORT STATUS: Signed DATE: 08/21/23 TIME: 1028 PATIENT: CHARLIE HART UNIT #: [id number] #: [id number] ROOM #: [facility]8 BED: A : 35 AGE: 88 SEX: M ATTEND: Tony Gautam MD ADM AUTHOR: Tony Gautam MD ATTENTION EDITS and/or ADDENDA must be made in Patient Keeper for this note. Edits and ammendments created in [employer] are not visible in Patient Keeper or [...] anteroapical hypokinesis.The patient is being admitted to [facility] for higher level of care.Given [...] suggestive of angina. Hewas taken to the [place] room on August 05, 2023 where he wasruled in for non-ST segment elevation myocardial infarction. He was started onheparin and transferred to [facility] where he was observed for a coupleof days and improved on medical therapy.Echocardiogram showed apical wall motion abnormalities with preserved leftventricular ejection fraction. As the patient was doing well on medicalmanagement, he was discharged from the other hospital without intervention. Hewas seen by his primary covered button maker, Dr Deyvi Celis and admitted forselective coronary angiogram on August 09, 2023 to [facility].This showed multivessel coronary artery disease, LAD 90 to 99% lesion, leftcircumflex proximal 90%, 95% obtuse marginal lesion; Occluded proximal RCA.Left ventricular end-diastolic pressure 12; Left ventricular ejection jcosdatt46%, severe anteroapical hypokinesis. He has been transferred to [facility] for consideration of CABG by [...] 0.On 2 L of oxygen via nasal cannula.Trixie griggs replete. 08/15: All chest tubes removed.IJ removed.On [...] MG PO DAILYIPRATROPIUM BROMIDE 0.5 MG NEB EBS7ERIBAYZATLPMIK 0.4 MG SL Q5M PRNONDANSETRON HCL/PF 4 [...] this note. Edits and ammendments created in [facility] are not visible in Patient Keeper or the legal medical record ([facility]). RPT #: [id number] OF REPORTPRProgress oysx2268-97-27M51:28:00P.IQ-[id number] ailable for patient eudaWVRHBYOVPZVGFT8004-35-32P40:37:13 [facility] 2023-08-21 07:54:00 [id number]/b0C4 oKfnKVInM/00r9gSV+6d4CTetIWCB FzAKRis896i1+wzfZCrpVZvkkIF2201-41-21T91:54:00 [facility] ([facility]) Cardiology Progress Notes REPORT #: [id number] REPORT STATUS: Signed DATE: 08/21/23 TIME: 075 PATIENT: CHARLIE HART UNIT #: [id number] #: [id number] ROOM #: P.0418 BED: A : 35 AGE: 88 SEX: M ATTEND: Tony Gautam MD ADM AUTHOR: Nj Oliva DO [facility] ATTENTION EDITS and/or ADDENDA must be made in Patient Keeper for this note. Edits and ammendments created in [employer] are not visible in Patient Keeper or [...] CABG X [address] Gil/: Lt SC-Cephalic vein DVT on LUE Venous dopplers1: Replacement of PPM A-lead by Dr. Strong08/19: RV lead removal and upgrade to BiV Dual chamber PPM by Dr. Strong. GENERAL ASSESSMENT:Mr. Hart is an 88 year-old male with past medical history of hypertension,hyperlipidemia, coronary artery disease, carotid disease, presence of permanentpacemaker (2021), pulmonary hypertension, and ischemic cardiomyopathy with previous ejection fraction 40-50% who was transferred to the CVICU from the [facility] 08/13 after CABG x 3 (STANLEY-LAD, [...] per CT surgery team 2: AfibA/P: - QYS1TK1-Endc >3- History of Atrial fibrillation s/p PPM.- [...] suggestive ofangina. He was taken to the [place] emergency room on August 05, 2023where he was ruled in for non-ST segment elevation myocardial infarction. Hewas started on heparin and transferred to [facility] where he wasobserved for a couple of days and improved on medical therapy. Echocardiogramshowed apical wall motion abnormalities with preserved left ventricularejection fraction. As the patient was doing well on medical management, he wasdischarged from the other hospital without intervention. He was seen by hisprimary covered button maker, Dr Deyvi Celis and admitted for selective coronaryangiogram on August 09, 2023 to [facility]. This showed multivessel coronaryartery disease, LAD 90 to 99% lesion, left circumflex proximal 90%, 95% obtusemarginal lesion; Occluded proximal RCA. Left ventricular end-diastolic mpflyjpu52; Left ventricular ejection fraction 40%, severe anteroapical hypokinesis. Hehas been transferred to [facility] for consideration of CABG by [...] MG PO DAILYIPRATROPIUM BROMIDE 0.5 MG NEB XWB5RVHAKBQOWZZPCG 0.4 MG SL Q5M PRNONDANSETRON HCL/PF 4 MG IV Q6H PRNKETOTIFEN FUMARATE 1 DROP EACH EYE BID PRNACETAMINOPHEN 650 MG PO Q4H PRNAMIODARONE HCL 200 MG PO BIDDEXTROSE 50%-WATER 25 ML IV ASDIR PRNFERROUS SULFATE 325 MG PO DAILYFUROSEMIDE 40 MG PO QAM LABS GLU BED (08/20/23 20:41)GLUBED 85 Signed in PatientKeeper by Nj Oliva DO CF1 on 08/21/23 at 12:14 Cosigned by GINO DENG MD on 09/06/23 at 14:01 at 1401 at 1401ATTENTION EDITS and/or ADDENDA must be made in Patient Keeper for this note. Edits and ammendments created in [employer] are not visible in Patient Keeper or the legal medical record (HPF). RPT #: [id number] OF REPORTPRProgress imgu5393-54-80A49:54:00P.VB-[id number] ailable for patient rvzbXXHJJXYTLTXEPB4224-09-20A75:13:59 [facility] 2023-08-20 15:13:00 [id number] feN5BzipbeD6+EfaR5RmHwmYXALYn 4R/HxUtjDioZA0ldVnTBQrSEZ1w4678-12-57X61:13:00 [facility] ([facility]) Cardiology Progress Notes REPORT #: [id number] REPORT STATUS: Signed DATE: 08/20/23 TIME: 1513 PATIENT: CHARLIE HART UNIT #: [id number] #: [id number] ROOM #: P.0418 BED: A : 35 AGE: 88 SEX: M ATTEND: Tony Gautam MD ADM AUTHOR: Trina Marquez MD CF1 ATTENTION EDITS and/or ADDENDA must be made in Patient Keeper for this note. Edits and ammendments created in [facility] are not visible in Patient Keeper [...] MG PO DAILYIPRATROPIUM BROMIDE 0.5 MG NEB UVL2LAHXKTMPPSOZNA 0.4 MG SL Q5M PRNONDANSETRON HCL/PF 4 [...] this note. Edits and ammendments created in [facility] are not visible in Patient Keeper or the legal medical record (HPF). RPT #: [id number] OF REPORTPRProgress rwmw1061-43-11M78:13:00P.VC-ZEBK02670042-0733VTLt ailable for patient riziPXABTUVQSXYJBZ0467-11-24G80:13:57 [facility] 2023-08-20 13:57:00 [id number] rmDqslIAU0COhXo/H2uEhbvGnCbch W7MK/AAyacmzCtlhXGJ7nttTTiR2501-18-97R73:57:00 [facility] ([facility]) Intensive Care Progress Note REPORT #: [id number] REPORT STATUS: Signed DATE: 08/20/23 TIME: 1357 PATIENT: CHARLIE HART UNIT #: [id number] #: [id number] ROOM #: P.0311 BED: 1 : 35 AGE: 88 SEX: M ATTEND: Tony Gautam MD ADM AUTHOR: Chikis Burdick MD ATTENTION EDITS and/or ADDENDA must be made in Patient Keeper for this note. Edits and ammendments created in [employer] are not visible in Patient Keeper or the legal medical record (HPF). -- ASSESSMENT AND PLAN -- HOSPITAL COURSE TO DATE:Mr. Hart is an 88 year-old male with past medical history of hypertension,hyperlipidemia, coronary artery disease, carotid disease, presence of permanentpacemaker (2021), pulmonary hypertension, and ischemic cardiomyopathy withprevious ejection fraction 40-50% who was transferred to the CVICU from the [facility] 08/13 after CABG x 3 (STANLEY-LAD, [...] the Clinical Pharmacist Full Code per , artHas Advanced Care Guidelines with daughter as GUY HACKETT to transfer to [facility]. Transition of care [...] IV ASDIR PRNIPRATROPIUM BROMIDE 0.5 MG NEB YUX3JsanJAQsbh HCL 0.1 MG PO Q8H PRNNITROGLYCERIN 0.4 [...] other members of the care team ADDITIONAL DETAIL:27251 Signed in PatientKeeper by Chikis Burdick MD on 08/20/23 at 14:07 at 1407ATTENTION EDITS and/or ADDENDA must be made in Patient Keeper for this note. Edits and ammendments created in [employer] are not visible in Patient Keeper or the legal medical record (HPF). [facility] #: [id number] OF REPORTPRProgress semr4328-57-63J71:57:00P.AE-OEQX49342473-4325CBTj ailable for patient oetaAYJCHKJDTROTDK2854-58-41U62:08:17 [facility] 2023-08-20 11:41:00 [id number] osGKU+Rmq8VLynqziqbTbQp0yvaj7 EIEjjW8DlujT2kWSpNsaWZpsgnw3885-85-22I85:41:28196 6-0049 [facility] [address], [place] [address]ZVDCMON NAME: CHARLIE HART ADMIT DATE: 08/09/23ACCOUNT NO: [id number] ROOM NO: P.0418 AGE: 88 REPORT TYPE: eELECTROCARDIOGRAM SEX: M ADMITTING PHYSICIAN: Tony Gautam MD ATTENDING PHYSICIAN: Tony Gautam MD Order:[id number] Reason : EVALU Test Date/Time Stamp:FriAug 20 2023 11:41:49Blood Pressure : / mmHGVent. Rate : 101 BPM Atrial Rate : 101 BPM P-R Int : 120 ms QRS Dur : 128 ms QT Int : 440 ms P-R-T Axes : 001 -06 196 degrees QTc Int : 570 ms Atrial-sensed ventricular-paced rhythmAbnormal ECG Confirmed by JEMAL OHARA ([id number]) on 08/22/2023 9:18:25 AM Referred By: Tony Gautam Confirmed by:JEMAL OHARA at 0918 PATIENT NAME: CHARLIE HART .[id number] AVAvailable for patient chbfLAXRVGMIGXQBKB5374-77-49W01:18:43 [facility] 2023-08-20 10:19:00 [id number] SnxNj0YYClQPETFwW/IO/S9DQP3YO XEIGoM9WXLHM34a+0fvB5P7QHUn0022-09-28Z10:19:00 [facility] ([facility]) Hospitalist Progress Note REPORT #: [id number] REPORT STATUS: Signed DATE: 08/20/23 TIME: 1019 PATIENT: CHARLIE HART UNIT #: [id number] #: [id number] ROOM #: P.0418 BED: A : 35 AGE: 88 SEX: M ATTEND: Tony Gautam MD ADM AUTHOR: Tony Gautam MD ATTENTION EDITS and/or ADDENDA must be made in Patient Keeper for this note. Edits and ammendments created in [employer] are not visible in Patient Keeper or [...] anteroapical hypokinesis.The patient is being admitted to [facility] for higher level of care.Given [...] suggestive of angina. Hewas taken to the [place] [facility] room on August 05, 2023 where he wasruled in for non-ST segment elevation myocardial infarction. He was started onheparin and transferred to [facility] where he was observed for a coupleof days and improved on medical therapy.Echocardiogram showed apical wall motion abnormalities with preserved leftventricular ejection fraction. As the patient was doing well on medicalmanagement, he was discharged from the other hospital without intervention. Hewas seen by his primary covered button maker, Dr Deyvi Celis and admitted forselective coronary angiogram on August 09, 2023 to [facility].This showed multivessel coronary artery disease, LAD 90 to 99% lesion, leftcircumflex proximal 90%, 95% obtuse marginal lesion; Occluded proximal RCA.Left ventricular end-diastolic pressure 12; Left ventricular ejection pedzpeyt28%, severe anteroapical hypokinesis. He has been transferred to [facility] for consideration of CABG by [...] IV ASDIR PRNIPRATROPIUM BROMIDE 0.5 MG NEB YVM0PfyeZJJdar HCL 0.1 MG PO Q8H PRNNITROGLYCERIN 0.4 [...] this note. Edits and ammendments created in [employer] are not visible in Patient Keeper or the legal medical record (HPF). [facility] #: [id number] OF REPORTPRProgress yite0661-90-78X86:19:00P.EA-OMGU17962560-4322FIQh ailable for patient sdouCACUNPCVNUSRSA7170-00-65E35:04:23 [facility] 2023-08-20 09:56:00 WF1146140756t6+K3LUo nBsBTgClHuX83krh8AZqfLjE/S+Ub r8C8JQzMRlzwW3wbqX87nNCp7l/6795-22-99J55:56:00 [facility] ([facility]) Cardiology Progress Notes REPORT #: [id number] REPORT STATUS: Signed DATE: 08/20/23 TIME: 955 PATIENT: CHARLIE HART UNIT #: [id number] #: [id number] ROOM #: P.0418 BED: A : 35 AGE: 88 SEX: M ATTEND: Tony Gautam MD ADM AUTHOR: Kaleigh Gonzalez ATTENTION EDITS and/or ADDENDA must be made in Patient Keeper for this note. Edits and ammendments created in [facility] are not visible in Patient Keeper [...] RA, RV lead revision with upgrade to CREDIT PROCESSOR Dilshad Strong, [facility] [place]iac ElectrophysiologistTexas Cardiac Arrhythmia Signed in PatientKeeper by [...] POC w/ Mr Hart is daughter Elizabeth (#[phone]) and available by phone- Educational materials/folder already [...] recurrent chest pain and angina, transferred from [place] [facility]08/05/23 for emergent bypass, coronary angiogram on 08/09/22 at [facility] for multivessel CAD involving LAD (90-99% lesion), [...] IV ASDIR PRNIPRATROPIUM BROMIDE 0.5 MG NEB LJT9ErbpJDCuxp HCL 0.1 MG PO Q8H PRNNITROGLYCERIN 0.4 [...] this note. Edits and ammendments created in [employer] are not visible in Patient Keeper or the legal medical record (HPF). RPT #: [id number] OF REPORTPRProgress raqz3052-39-69K80:56:00P.OZ-WJNR52915138-1727NHCs ailable for patient gmfmIDVHULFESIPSUG9989-82-05X98:56:20 [facility] 2023-08-20 09:10:00 [id number] 0nqiblW9meA0rKpAQdUEHu5AQmeYZ ENd/NzwmU64qwwBEGBHVSwqlJqr7501-80-05T71:10:00 [facility] ([facility]) Progress Note REPORT #: [id number] REPORT STATUS: Signed DATE: 08/20/23 TIME: 909 PATIENT: CHARLIE HART UNIT #: [id number] #: [id number] ROOM #: P.0311 BED: 1 : 35 AGE: 88 SEX: M ATTEND: Tony Gautam MD ADM AUTHOR: Nile Fuentes MD ATTENTION EDITS and/or ADDENDA must be made in Patient Keeper for this note. Edits and ammendments created in [employer] are not visible in Patient Keeper or [...] ASDIR PRN IPRATROPIUM BROMIDE 0.5 MG NEB BLI0BsxoENXzsx HCL 0.1 MG PO Q8H PRNNITROGLYCERIN 0.4 [...] this note. Edits and ammendments created in [facility] are not visible in Patient Keeper or the legal medical record (HPF). RPT #: [id number] OF REPORTPRProgress cssw1160-60-27Y01:10:00P.QD-LJEW44823499-6634UFWs ailable for patient mcliVNGFXXKUTAORQM7443-86-28T83:12:56 [facility] 2023-08-19 22:54:00 [id number] E0RTarAcjaJCUdh1t1bxvByL52MNo lOJO7Af8aabXwcn8kqqNWBAnuhk9075-79-28P93:54:00 [facility] ([facility]) Cardiology Progress Notes REPORT #: [id number] REPORT STATUS: Signed DATE: 08/19/23 TIME: 2253 PATIENT: CHARLIE HART UNIT #: [id number] #: [id number] ROOM #: P.0418 BED: A : 35 AGE: 88 SEX: M ATTEND: Tony Gautam MD ADM AUTHOR: Trina Marquez MD [facility] ATTENTION EDITS and/or ADDENDA must be made in Patient Keeper for this note. Edits and ammendments created in [employer] are not visible in Patient Keeper or the legal medical record ([facility]). -- CO-SIGNATURE -- COMMENTS:The patient was seen [...] IV ASDIR PRNIPRATROPIUM BROMIDE 0.5 MG NEB LFG4WierFJElzb HCL 0.1 MG PO Q8H PRNNITROGLYCERIN 0.4 [...] PatientKeeper by TRINA MARQUEZ MD CF1 on 08/19/23 at 22:57 Cosigned by GINO DENG MD on 09/06/23 at 14:00 at 1400 at 1400ATTENTION EDITS and/or ADDENDA must be made in Patient Keeper for this note. Edits and ammendments created in [facility] are not visible in Patient Keeper or the legal medical record (HPF). RPT #: [id number] OF REPORTPRProgress tkyc2145-13-35N19:54:00P.XL-KHPT91868288-8027CDNp ailable for patient wwiqSRQXEYEBUNLXQC9246-79-85F12:13:57 [facility] 2023-08-19 19:00:00 [id number] UztFseZc2ZRIW4I+Avi1qmIOF5xn4 WMg9cBl0I3/6fEB3lkJke84kdra4618-95-27Q88:00:00 THIS REPORT HAS BEEN APPENDED [facility] ([facility]) Operative Report REPORT #: [id number] REPORT STATUS: Signed DATE: 08/19/23 TIME: 1899 PATIENT: CAHRLIE HART UNIT #: [id number] #: [id number] ROOM #: P.0311 BED: 1 : 35 AGE: 88 SEX: M ATTEND: Tony Gautam MD ADM AUTHOR: Dilshad Strong MD ATTENTION EDITS and/or ADDENDA must be made in Patient Keeper for this note. Edits and ammendments created in [employer] are not visible in Patient Keeper or the legal medical record ([facility]). -- OPERATION -- SURGERY START DATE/TIME:2023-08-19 19:00 PRE-OPERATIVE DIAGNOSIS:See Description POST-OPERATIVE DIAGNOSIS:See Description NAME OF PROCEDURE:See Description SURGEON:Dilshad Strong MD MOBILE DESIGNER(S):See Description ANESTHESIA:See Description ESTIMATED BLOOD LOSS:10 ml's FINDINGS:See Description SPECIMEN(S) REMOVED AND/OR ALTERED:See Description COMPLICATION(S):See Description -- DESCRIPTION -- DESCRIPTION OF TECHNIQUE/PROCEDURE:Lead Extraction, Biventricular Pacemaker Upgrade Procedure Note Weight Clerk: Dilshad Strong MD Fellow: [None][facility] Referring Physician: MD Ish Date of Procedure: 08/19/23 Brief Clinical History: This is an 88yo man with a history of HFrEF, completeheart block presenting for implantation of a biventricular pacemaker. Procedure Performed:RV Lead RemovalUpgrade to BiV from dual chamber PPM (76075, 77367) The procedure was performed utilizing moderate sedation [...] to the inferior vena cava. A single 7-Comoran peel-away sheath was advanced over the wire. The coronary sinus wascannulated, and a venogram was performed with contrast using an 7 indonesian swancatheter in the coronary sinus. A [posterior [...] 2 ADDENDUM 1: 08/19/232048 PTKEEPERSedation Time: 60 pzxcghi4fc versed/50mcg fentanyl at 2048 ATTENTION EDITS and/or ADDENDA must be made in Patient Keeper for this note. Edits and ammendments created in [facility] are not visible in Patient Keeper or the legal medical record (HPF). [facility] #: [id number] OF REPORTOPOperative kkxgwh3468-31-84F70:00:00P.KX-MVDM85643568-8970KS Available for patient lkklBEORJQFPRXTOZU0110-06-26X53:49:11 [facility] 2023-08-19 18:52:00 [id number] FzoGqPaMqH/UbeqKWdIiS2mxFYtW0 fztohyZIfRYWybGS6pMm9lQNOPZ5602-02-38J05:52:00 [facility] ([facility]) Hospitalist Progress Note REPORT #: [id number] REPORT STATUS: Signed DATE: 08/19/23 TIME: 1851 PATIENT: CHARLIE HART UNIT #: [id number] #: [id number] ROOM #: P.0311 BED: 1 : 35 AGE: 88 SEX: M ATTEND: Tony Gautam MD ADM AUTHOR: Tony Gautam MD ATTENTION EDITS and/or ADDENDA must be made in Patient Keeper for this note. Edits and ammendments created in [employer] are not visible in Patient Keeper or [...] anteroapical hypokinesis.The patient is being admitted to [facility] for higher level of care.Given [...] suggestive of angina. Hewas taken to the [place] [facility] room on August 05, 2023 where he wasruled in for non-ST segment elevation myocardial infarction. He was started onheparin and transferred to [facility] where he was observed for a coupleof days and improved on medical therapy.Echocardiogram showed apical wall motion abnormalities with preserved leftventricular ejection fraction. As the patient was doing well on medicalmanagement, he was discharged from the other hospital without intervention. Hewas seen by his primary covered button maker, Dr Deyvi Celis and admitted forselective coronary angiogram on August 09, 2023 to [facility].This showed multivessel coronary artery disease, LAD 90 to 99% lesion, leftcircumflex proximal 90%, 95% obtuse marginal lesion; Occluded proximal RCA.Left ventricular end-diastolic pressure 12; Left ventricular ejection xbajnbnt29%, severe anteroapical hypokinesis. He has been transferred to [facility] for consideration of CABG by [...] IV ASDIR PRNIPRATROPIUM BROMIDE 0.5 MG NEB QWF5TnirEEVdrq HCL 0.1 MG PO Q8H PRNNITROGLYCERIN 0.4 [...] this note. Edits and ammendments created in [facility] are not visible in Patient Keeper or the legal medical record (HPF). [facility] #: [id number] OF REPORTPRProgress wcis1424-26-56G45:52:00P.CA-TGCY95174771-5553THIh ailable for patient qyktOCKGYETOMQJFLV8693-10-84A21:41:42 [facility] 2023-08-19 14:36:00 [id number] vsg2fFlGScD7ZNHdpMlpI4cTYNK0n n75MoSeggtQ+H9Xs6tOr3FA8zim4110-47-18S61:36:00 [facility] ([facility]) Intensive Care Progress Note REPORT #: [id number] REPORT STATUS: Signed DATE: 08/19/23 TIME: 143 PATIENT: CHARLIE HART UNIT #: [id number] #: [id number] ROOM #: [facility] BED: 1 : 35 AGE: 88 SEX: M ATTEND: Tony Gautam MD ADM AUTHOR: Chikis Burdick MD ATTENTION EDITS and/or ADDENDA must be made in Patient Keeper for this note. Edits and ammendments created in [employer] are not visible in Patient Keeper or the legal medical record (HPF). -- ASSESSMENT AND PLAN -- HOSPITAL COURSE TO DATE:Mr. Hart is an 88 year-old male with past medical history of hypertension,hyperlipidemia, coronary artery disease, carotid disease, presence of permanentpacemaker (2021), pulmonary hypertension, and ischemic cardiomyopathy withprevious ejection fraction 40-50% who was transferred to the CVICU from the [facility] 08/13 after CABG x 3 (incl. [...] the Clinical Pharmacist Full Code per , artHas Advanced Care Guidelines with daughter as MPOA [...] IV ASDIR PRNIPRATROPIUM BROMIDE 0.5 MG NEB ZZP1UfkvPEUava HCL 0.1 MG PO Q8H PRNNITROGLYCERIN 0.4 [...] this note. Edits and ammendments created in [employer] are not visible in Patient Keeper or the legal medical record (HPF). [facility] #: [id number] OF REPORTPRProgress svzt1457-87-86F97:36:00P.DD-PFVT31534705-7566XAJr ailable for patient vxjsJAIRNBTDEZENTQ3649-72-77V78:35:46 [facility] 2023-08-19 10:54:00 [id number] 5nT78UvvPIxWqBZz76KPioWIFKDOk fgx9PGaW1x6Df6Yk8SnumzsZztt3404-16-17G23:54:00 [facility] ([facility]) Cardiology Progress Notes REPORT #: [id number] REPORT STATUS: Signed DATE: 08/19/23 TIME: 105 PATIENT: CHARLIE HART UNIT #: [id number] #: [id number] ROOM #: [facility] BED: A : 35 AGE: 88 SEX: M ATTEND: Tony Gautam MD ADM AUTHOR: Kaleigh Gonzalez ATTENTION EDITS and/or ADDENDA must be made in Patient Keeper for this note. Edits and ammendments created in [facility] are not visible in Patient Keeper [...] POC w/ Mr Hart, and daughter Elizabeth (#[phone]) via phone bothagreeable and wish to pursue [...] recurrent chest pain and angina, transferred from [place] [facility]/23 for emergent bypass, [facility]essel [facility] involving LAD (90-99% lesion), [...] this note. Edits and ammendments created in [facility] are not visible in Patient Keeper or the legal medical record (HPF). RPT #: [id number] OF REPORTPRProgress btec6066-90-31E80:54:00P.YY-[id number] ailable for patient bughCCKVYDVHHBJXNW0386-98-56B00:21:19 [facility] 2023-08-19 10:09:00 [id number] 6mTwCt9EKxIA5JVRMQv/Nt9yaTrc0 +uBSG0KVtr4mEsCeaq1ZKaXZTqw6070-31-28T70:09:00 [facility] ([facility]) Progress Note REPORT #: [id number] REPORT STATUS: Signed DATE: 08/19/23 TIME: 1009 PATIENT: CHARLIE HART UNIT #: [id number] #: [id number] ROOM #: P.0311 BED: 1 : 35 AGE: 88 SEX: M ATTEND: Tony Gautam MD ADM AUTHOR: Nile Fuentes MD ATTENTION EDITS and/or ADDENDA must be made in Patient Keeper for this note. Edits and ammendments created in [facility] are not visible in Patient Keeper or [...] this note. Edits and ammendments created in [facility] are not visible in Patient Keeper or the legal medical record (HPF). RPT #: [id number] OF REPORTPRProgress ftgz2525-65-19L06:09:00P.LX-XMIM92582640-4148FXKt ailable for patient uwrjODMVYJYEOLWGJD2070-72-75M43:11:19 [facility] 2023-08-18 22:17:00 [id number] 1Qcv4oHZbWqh6Y/kvLTfWcIx1RB1d w3BpC/JyeAgzWaKilXkDuur8/NN8784-54-02U92:17:00 [facility] ([facility]) Hospitalist Progress Note REPORT #: [id number] REPORT STATUS: Signed DATE: 08/18/23 TIME: 2216 PATIENT: CHARLIE HART UNIT #: [id number] #: [id number] ROOM #: P.0311 BED: 1 : 35 AGE: 88 SEX: M ATTEND: Tony Gautam MD ADM AUTHOR: Tony Gautam MD ATTENTION EDITS and/or ADDENDA must be made in Patient Keeper for this note. Edits and ammendments created in [facility] are not visible in Patient Keeper [...] anteroapical hypokinesis.The patient is being admitted to [facility] for higher level of care.Given [...] suggestive of angina. [facility]was [facility] [place] [facility] [place] [facility] on August 05, 2023 where he wasruled in for non-ST segment elevation myocardial infarction. He was started onheparin and transferred to [facility] where he was observed for a coupleof days and improved on medical therapy.Echocardiogram showed apical wall motion abnormalities with preserved leftventricular ejection fraction. As the patient was doing well on medicalmanagement, he was discharged from the other hospital without intervention. Hewas seen by his primary covered button maker, Dr Deyvi Celis and admitted forselective coronary angiogram on August 09, 2023 to [facility].This showed multivessel coronary artery disease, LAD 90 to 99% lesion, leftcircumflex proximal 90%, 95% obtuse marginal lesion; Occluded proximal RCA.Left ventricular end-diastolic pressure 12; Left ventricular ejection cmfhutfk87%, severe anteroapical hypokinesis. He has been transferred to [facility] for consideration of CABG by [...] IV ASDIR PRNIPRATROPIUM BROMIDE 0.5 MG NEB GHO6IrpaRDYgff HCL 0.1 MG PO Q8H PRNNITROGLYCERIN 0.4 [...] this note. Edits and ammendments created in [employer] are not visible in Patient Keeper or the legal medical record (HPF). [facility] #: [id number] OF REPORTPRProgress sgxd2526-76-76W88:17:00P.DN-[id number] ailable for patient vykoYCDQHJKCLBDNRU6599-72-58I79:21:16 [facility] 2023-08-18 20:42:00 [id number] +PnikycGnbWlq1JVCmKtch/Kristopher 5quZ7E79Tx15UjCPqLWFEuTHYH66861-07-80K22:42:00 [facility] ([facility]) Operative Report REPORT #: [id number] REPORT STATUS: Signed DATE: 08/18/23 TIME: 2041 PATIENT: CHARLIE HART UNIT #: [id number] #: [id number] ROOM #: P.0311 BED: 1 : 35 AGE: 88 SEX: M ATTEND: Tony Gautam MD ADM AUTHOR: Dilshad Strong MD ATTENTION EDITS and/or ADDENDA must be made in Patient Keeper for this note. Edits and ammendments created in [employer] are not visible in Patient Keeper or the legal medical record (HPF). -- OPERATION -- SURGERY START DATE/TIME:2023-08-18 20:42 PRE-OPERATIVE DIAGNOSIS:See Description POST-OPERATIVE DIAGNOSIS:See Description NAME OF PROCEDURE:See Description SURGEON:Dilshad Strong MD MOBILE DESIGNER(S):See Description ANESTHESIA:See Description ESTIMATED BLOOD LOSS:10 ml's FINDINGS:See Description SPECIMEN(S) REMOVED AND/OR ALTERED:See Description COMPLICATION(S):See Description -- DESCRIPTION -- DESCRIPTION OF TECHNIQUE/PROCEDURE:Atrial lead extraction and new atrial lead placement Procedure Note Weight Clerk: Dilshad Strong MDFellow: [None]Facility: [facility] Device Autocutter: Salcedo Referring Physician: MD Ish Date of Procedure: [...] this note. Edits and ammendments created in [employer] are not visible in Patient Keeper or the legal medical record (HPF). RPT #: [id number] OF REPORTOPOperative mizfbu4984-05-08A32:42:00P.GA-RNXI94001845-1500CJ Available for patient fchcXQZRLAUGQMUFTG8499-73-78X62:02:24 [facility] 2023-08-18 15:06:00 [id number]+zTAFRu zBt/FGTL3JP45SbiiATyytFwurO4H K19TVpQtNKXBhy0+tnCpvFHVdoa2831-03-35K52:06:00 [facility] ([facility]) Intensive Care Progress Note REPORT #: [id number] REPORT STATUS: Signed DATE: 08/18/23 TIME: 1505 PATIENT: CHARLIE HART UNIT #: [id number] #: [id number] ROOM #: P.0311 BED: 1 : 35 AGE: 88 SEX: M ATTEND: Tony Gautam MD ADM AUTHOR: Chikis Burdick MD ATTENTION EDITS and/or ADDENDA must be made in Patient Keeper for this note. Edits and ammendments created in [employer] are not visible in Patient Keeper or the legal medical record (HPF). -- ASSESSMENT AND PLAN -- HOSPITAL COURSE TO DATE:Mr. Hart is an 88 year-old male with past medical history of hypertension,hyperlipidemia, coronary artery disease, carotid disease, presence of permanentpacemaker (2021), pulmonary hypertension, and ischemic cardiomyopathy withprevious ejection fraction 40-50% who was transferred to the CVICU from the [facility] 08/13 after CABG x 3 (incl. [...] the Clinical Pharmacist Full Code per , [place] Advanced Care Guidelines with daughter as MPOA [...] IV ASDIR PRNIPRATROPIUM BROMIDE 0.5 MG NEB WNW7EnahUHTzhm HCL 0.1 MG PO Q8H PRNNITROGLYCERIN 0.4 [...] this note. Edits and ammendments created in [facility] are not visible in Patient Keeper or the legal medical record (HPF). RPT #: [id number] OF REPORTPRProgress zess5420-48-06G95:06:00P.WP-QCWF14906000-4595QDDc ailable for patient tdgqWCTLPKEGYLKUTT0559-32-76D68:27:22 [facility] 2023-08-18 12:42:00 [id number] SUbIKk+/xZgJ6Mk75P5Kgd1XhDGe8 x1wU8b2dnHBALW1faUgdG8kc/lF2613-30-90K58:42:00 [facility] ([facility]) Cardiology Progress Notes REPORT #: [id number] REPORT STATUS: Signed DATE: 08/18/23 TIME: 1242 PATIENT: CHARLIE HART UNIT #: [id number] #: [id number] ROOM #: P.0418 BED: A : 35 AGE: 88 SEX: M ATTEND: Tony Gautam MD ADM AUTHOR: Trina Marquez MD CF1 ATTENTION EDITS and/or ADDENDA must be made in Patient Keeper for this note. Edits and ammendments created in [employer] are not visible in Patient Keeper or [...] IV ASDIR PRNIPRATROPIUM BROMIDE 0.5 MG NEB HAD1AshzIJNvth HCL 0.1 MG PO Q8H PRNNITROGLYCERIN 0.4 [...] L Signed in PatientKeeper by TRINA MARQUEZ MD1 on 08/18/23 at 12:46 Cosigned by GINO DENG MD on 09/06/23 at 13:59 at 1359 at 1359ATTENTION EDITS and/or ADDENDA must be made in Patient Keeper for this note. Edits and ammendments created in [employer] are not visible in Patient Keeper or the legal medical record ([facility]). RPT #: [id number] OF REPORTPRProgress cmnm7475-34-54V28:42:00P.JN-OPQL97517834-9768DODd ailable for patient elkiOZAVJYPBYBAWIF4645-85-90Y43:13:56 [facility] 2023-08-18 09:45:00 [id number] gYPvHl7ykTd27l+7kavQ//1lZWU/Y CGeoJ3XUJFRIcsLsJ4pczo2IpGn7356-62-16P03:45:00 [facility] ([facility]) Progress Note REPORT #: [id number] REPORT STATUS: Signed DATE: 08/18/23 TIME: 944 PATIENT: CHARLIE HART UNIT #: [id number] #: [id number] ROOM #: P.0311 BED: 1 : 35 AGE: 88 SEX: M ATTEND: Tony Gautam MD ADM AUTHOR: Nile Fuentes MD ATTENTION EDITS and/or ADDENDA must be made in Patient Keeper for this note. Edits and ammendments created in [facility] are not visible in Patient Keeper or the legal medical record ([facility]). -- ASSESSMENT AND PLAN -- PROBLEMS: 1: [...] ASDIR PRN IPRATROPIUM BROMIDE 0.5 MG NEB ULS4CvllMDWfsi HCL 0.1 MG PO Q8H PRNNITROGLYCERIN 0.4 [...] this note. Edits and ammendments created in [employer] are not visible in Patient Keeper or the legal medical record ([facility]). RPT #: [id number] OF REPORTPRProgress udvq8066-78-91I31:45:00P.FW-[id number] ailable for patient smouNZSUMMPVDIJLTK5453-30-85J11:49:18 [facility] 2023-08-17 18:19:00 [id number] /Y/nAS0+w2AudVITCJDUTBddT75FB VFeBieu5zSIq0nHjwYSBridykj28822-09-77H28:19:00 [facility] ([facility]) Hospitalist Progress Note REPORT #: [id number] REPORT STATUS: Signed DATE: 08/17/23 TIME: 1818 PATIENT: CHARLIE HART UNIT #: [id number] #: [id number] ROOM #: P.0311 BED: 1 : 35 AGE: 88 SEX: M ATTEND: Tony Gautam MD ADM AUTHOR: Temo Herrera MD ATTENTION EDITS and/or ADDENDA must be made in Patient Keeper for this note. Edits and ammendments created in [employer] are not visible in Patient Keeper or the legal medical record ([facility]). -- ASSESSMENT AND PLAN -- GENERAL ASSESSMENT: ASSESSMENT AND PLAN: 1. Recent non-ST segment elevation myocardial infarction, around July.S/p coronary angiogram 08/09 showing multivessel coronary artery disease,not amenable to percutaneous coronary intervention.LAD 90 to 99% lesion, left circumflex proximal 90%, 95% obtuse marginal lesion;Occluded proximal RCA. Left ventricular end-diastolic pressure 12;Left ventricular ejection fraction 40%, severe anteroapical hypokinesis.The patient is being admitted to [facility] for higher level of care.Given [...] identified. Dopplerand echo contrast study shows no heffn-ih-vqgf atrial level shunt.5. Aortic valve: Cusp separation [...] suggestive of angina. Hewas taken to the [place] [facility] room on August 05, 2023 where he wasruled in for non-ST segment elevation myocardial infarction. He was started onheparin and transferred to [facility] where he was observed for a coupleof days and improved on medical therapy.Echocardiogram showed apical wall motion abnormalities with preserved leftventricular ejection fraction. As the patient was doing well on medicalmanagement, he was discharged from the other hospital without intervention. Hewas seen by his primary covered button maker, Dr Deyvi Celis and admitted forselective coronary angiogram on August 09, 2023 to [facility].This showed multivessel coronary artery disease, LAD 90 to 99% lesion, leftcircumflex proximal 90%, 95% obtuse marginal lesion; Occluded proximal RCA.Left ventricular end-diastolic pressure 12; Left ventricular ejection utfroeps16%, severe anteroapical hypokinesis. He has been transferred to [facility] for consideration of CABG by [...] IV ASDIR PRNIPRATROPIUM BROMIDE 0.5 MG NEB FKR5JijfKEPfxz HCL 0.1 MG PO Q8H PRNNITROGLYCERIN 0.4 [...] this note. Edits and ammendments created in [facility] are not visible in Patient Keeper or the legal medical record (HPF). RPT #: [id number] OF REPORTPRProgress kfet3625-67-29N33:19:00P.YI-YIYP54595102-4331XIQp ailable for patient ligdJIEORYYIKWDAKS9654-90-21K74:26:07 [facility] 2023-08-17 14:07:00 [id number] UpdAlH3yq9lSZOdmFOELsxrn3arq3 c1yWiZ5twGxNQjtSzmcbVF4g+CS7593-78-60H48:07:00 [facility] ([facility]) Intensive Care Progress Note REPORT #: [id number] REPORT STATUS: Signed DATE: 08/17/23 TIME: 1406 PATIENT: CHARLIE HART UNIT #: [id number] #: [id number] ROOM #: P.0311 BED: 1 : 35 AGE: 88 SEX: M ATTEND: Tony Gautam MD ADM AUTHOR: Chikis Burdick MD ATTENTION EDITS and/or ADDENDA must be made in Patient Keeper for this note. Edits and ammendments created in [employer] are not visible in Patient Keeper or the legal medical record (HPF). -- ASSESSMENT AND PLAN -- HOSPITAL COURSE TO DATE:Mr. Hart is an 88 year-old male with past medical history of hypertension,hyperlipidemia, coronary artery disease, carotid disease, presence of permanentpacemaker (2021), pulmonary hypertension, and ischemic cardiomyopathy withprevious ejection fraction 40-50% who was transferred to the CVICU from the [facility] 08/13 after CABG x 3 (incl. [...] [place] Advanced Care Guidelines with daughter as GUY -- OBJECTIVE -- VITALS (08/16 14:08 - [...] IV ASDIR PRNIPRATROPIUM BROMIDE 0.5 MG NEB SXM8CaolDGNhfm HCL 0.1 MG PO Q8H PRNNITROGLYCERIN 0.4 [...] this note. Edits and ammendments created in [employer] are not visible in Patient Keeper or the legal medical record (HPF). RPT #: [id number] OF REPORTPRProgress ssnd5212-95-38M76:07:00P.QJ-IGPL48911072-6169HLBz ailable for patient pugtUPIWFDRSYAGASC3703-04-05O51:26:46 [facility] 2023-08-17 11:45:00 [id number] ZzZSmQvexRvpo43F2/Mnj70zFYlmg BJqETqfEt+4M/HjYKtiqezkeX2A0114-19-70Y70:45:00 [facility] ([facility]) Cardiology Progress Notes REPORT #: [id number] REPORT STATUS: Signed DATE: 08/17/23 TIME: 1144 PATIENT: CHARLIE HART UNIT #: [id number] #: [id number] ROOM #: P.0418 BED: A : 35 AGE: 88 SEX: M ATTEND: Tony Gautam MD ADM AUTHOR: Trina Marquez MD CF1 ATTENTION EDITS and/or ADDENDA must be made in Patient Keeper for this note. Edits and ammendments created in [employer] are not visible in Patient Keeper or [...] IV ASDIR PRNIPRATROPIUM BROMIDE 0.5 MG NEB CCE6AllzLYApdh HCL 0.1 MG PO Q8H PRNNITROGLYCERIN 0.4 [...] this note. Edits and ammendments created in [facility] are not visible in Patient Keeper or the legal medical record (HPF). RPT #: [id number] OF REPORTPRProgress ugvu8706-52-19D29:45:00P.RX-OXEP40655722-8910JQUs ailable for patient gpwuGDTZYCWYFUHSOQ9420-68-74X87:25:54 [facility] 2023-08-16 19:45:00 [id number] w1a4OfW7qY/r1yTBzy6gWSGk8JxN2 Hm3dUei30rpBzkhVMXvTi162SQv4363-64-85M35:45:00 [facility] ([facility]) Hospitalist Progress Note REPORT #: [id number] REPORT STATUS: Signed DATE: 08/16/23 TIME: 1944 PATIENT: CHARLIE HART UNIT #: [id number] #: [id number] ROOM #: P.0311 BED: 1 : 35 AGE: 88 SEX: M ATTEND: Tony Gautam MD ADM AUTHOR: Temo Herrera MD ATTENTION EDITS and/or ADDENDA must be made in Patient Keeper for this note. Edits and ammendments created in [employer] are not visible in Patient Keeper or [...] anteroapical hypokinesis.The patient is being admitted to [facility] for higher level of care.Given [...] identified. Dopplerand echo contrast study shows no whann-mf-uhjy atrial level shunt.5. Aortic valve: Cusp separation [...] suggestive of angina.He was taken to the [place] emergency room on August 05, 2023 where he wasruled in for non-ST segment elevation myocardial infarction.He was started on heparin and transferred to [facility] where he wasobserved for a couple of days and improved on medical therapy.Echocardiogram showed apical wall motion abnormalities with preserved leftventricular ejection fraction.As the patient was doing well on medical management, [facility].He was seen by his primary covered button maker, Dr Deyvi Celis and admitted forselective coronary angiogramon August 09, 2023 to [facility].This showed multivessel coronary artery disease,LAD 90 to 99% lesion, left circumflex proximal 90%, 95% obtuse marginal lesion;Occluded proximal RCA. Left ventricular end-diastolic pressure 12;Left ventricular ejection fraction 40%, severe anteroapical hypokinesis.He has been transferred to [facility] for consideration of CABG by [...] IV ASDIR PRNIPRATROPIUM BROMIDE 0.5 MG NEB ASJ7HygfERSqch HCL 0.1 MG PO Q8H PRNNITROGLYCERIN 0.4 [...] this note. Edits and ammendments created in [facility] are not visible in Patient Keeper or the legal medical record (HPF). RPT #: [id number] OF REPORTPRProgress mgnj9161-71-95I53:45:00P.QX-XOKN85547582-5012GWCj ailable for patient iaivRRBFXDCLBWJEQB4693-64-42J19:53:21 [facility] 2023-08-16 17:48:00 [id number] Q9w9I4HxjrxNjJBp0M+JypZCOL4LF 3vs2bjwfoETXN1SJPUU/oJ2WjaG7383-88-11O75:48:00 [facility] ([facility]) Cardiology Progress Notes REPORT #: [id number] REPORT STATUS: Signed DATE: 08/16/23 TIME: 1747 PATIENT: CHARLIE HART UNIT #: [id number] #: [id number] ROOM #: P.0418 BED: A : 35 AGE: 88 SEX: M ATTEND: Tony Gautam MD ADM AUTHOR: Trina Marquez MD CF1 ATTENTION EDITS and/or ADDENDA must be made in Patient Keeper for this note. Edits and ammendments created in [facility] are not visible in Patient Keeper [...] IV ASDIR PRNIPRATROPIUM BROMIDE 0.5 MG NEB DUR9IohxNRUnwo HCL 0.1 MG PO Q8H PRNNITROGLYCERIN 0.4 [...] this note. Edits and ammendments created in [facility] are not visible in Patient Keeper or the legal medical record (HPF). RPT #: [id number] OF REPORTPRProgress syxa9602-68-25S97:48:00P.LI-PMRM42824975-6139YGQt ailable for patient cgjrVMMMGDNEVZSQFK2627-06-55G12:17:30 [facility] 2023-08-16 13:50:00 [id number]/U/UUJ4l xVwWIjZ0MFkBD2bXPoFSWxZFIGY84 mTbeiOqxW/JwH7sJatfdRAGrPGJ7320-31-44Q53:50:00 [facility] ([facility]) ElectroPhys. Progress Notes REPORT #: [id number] REPORT STATUS: Signed DATE: 08/16/23 TIME: 1350 PATIENT: CHARLIE HART UNIT #: [id number] #: [id number] ROOM #: P.0311 BED: 1 : 35 AGE: 88 SEX: M ATTEND: Tony Gautam MD ADM AUTHOR: Dilshad Strong MD ATTENTION EDITS and/or ADDENDA must be made in Patient Keeper for this note. Edits and ammendments created in [employer] are not visible in Patient Keeper or the legal medical record ([facility]). -- ASSESSMENT AND PLAN -- PROBLEMS: 1: [...] this note. Edits and ammendments created in [employer] are not visible in Patient Keeper or the legal medical record ([facility]). [facility] #: [id number] OF REPORTPRProgress dzor0655-06-07G92:50:00P.NH-OPXS10160366-5620WDOd ailable for patient vxquWJUXZWGUSQXRWX9481-60-49O43:51:57 [facility] 2023-08-16 13:30:00 [id number] 3uQFFgfw4TtfLLj6JhhOdyWeFlhmy bCEE7enX7vynz/QMaJZkoi7heHO2675-38-79T28:30:22025 0-[address] [address]ZIDHGEH NAME: CHARLIE HART ADMIT DATE: 08/09/23ACCOUNT NO: [id number] ROOM NO: P.0311 AGE: 88 REPORT TYPE: eTRANSESOPHAGEL REPORT SEX: M ADMITTING PHYSICIAN: Tony Gautam MD ATTENDING PHYSICIAN: Tony Gautam MD *[facility]*[address] [place] [address]Epggu Transesophageal Echocardiogram Patient: Partha Hartudy Date: 4BP:URN: [id number]: [id number]#: [id number]: 1935ge: 88Gender: MHeight: 68.1 in / 173 cmWeight: 163.1 lb / 74 kgBMI/BSA: 24.7 kg/m 2 / 1.89 m 2*Ordering Physician: * João Powell MD *Interpreting Physician: Alayna Deng M.D. Indications: CABG. Study data: Consent: [...] identified. Dopplerand echo contrast study shows no avxxh-tb-xvln atrial level shunt.Aorta:Aorta: No evidence of aneurysm, [...] Doppler and echo contrast study shows no aizqh-ne-wxkb atrial level shunt.5. Aortic valve: Cusp separation is mildly reduced. The findings are consistent with mild stenosis.6. Mitral valve: There is no evidence of vegetation.7. Tricuspid valve: There is no evidence of a vegetation.8. Pulmonic valve: There is no evidence of a vegetation.Electronically signed by Gino Deng M.D.08/16/2023 13:30 at 1330 PATIENT NAME: CHARLIE HART mscnvup1849-81-79G85:30:00P.ZYC39772352-9765GQSpv ilable for patient sbkwOQUQADJGOAEDWU8062-28-59Y04:31:16 [facility] 2023-08-16 12:38:00 [id number] 6zsP6+ayTqJJOVqNPqgyYudY2RcXj xAQXEhfusnCcJesbhTNwrbn7Bo56579-18-46U47:38:00 [facility] ([facility]) Intensive Care Progress Note REPORT #: [id number] REPORT STATUS: Signed DATE: 08/16/23 TIME: 1238 PATIENT: CHARLIE HART UNIT #: [id number] #: [id number] ROOM #: [facility] BED: 1 : 35 AGE: 88 SEX: M ATTEND: Tony Gautam MD ADM AUTHOR: Chikis Burdick MD ATTENTION EDITS and/or ADDENDA must be made in Patient Keeper for this note. Edits and ammendments created in [facility] are not visible in Patient Keeper or the legal medical record (HPF). -- ASSESSMENT AND PLAN -- HOSPITAL COURSE TO DATE:Mr. Hart is an 88 year-old male with past medical history of hypertension,hyperlipidemia, coronary artery disease, carotid disease, presence of permanentpacemaker (2021), pulmonary hypertension, and ischemic cardiomyopathy withprevious ejection fraction 40-50% who was transferred to the CVICU from the [facility] 08/13 after CABG x 3 by [...] IV ASDIR PRNIPRATROPIUM BROMIDE 0.5 MG NEB UBF2OlwoBTAlcw HCL 0.1 MG PO Q8H PRNNITROGLYCERIN 0.4 [...] this note. Edits and ammendments created in [facility] are not visible in Patient Keeper or the legal medical record (HPF). [facility] #: [id number] OF REPORTPRProgress jxfi0273-48-84K36:38:00P.HB-TFYV45570739-6000RQQx ailable for patient rzrvMQQOGYUHQLOLUI2193-09-16P43:50:42 [facility] 2023-08-15 17:27:00 [id number]/yxAk5Jb hQylnqtLUrEykg3pHW+OJTg+yA4he 8hVwUsMZUyX4bDrImNgB4qaQ71n6678-92-28B77:27:00 [facility] ([facility]) Cardiology Progress Notes REPORT #: [id number] REPORT STATUS: Signed DATE: 08/15/23 TIME: 1726 PATIENT: CHARLIE HART UNIT #: [id number] #: [id number] ROOM #: [facility] BED: A : 35 AGE: 88 SEX: M ATTEND: Tony Gautam MD ADM AUTHOR: Trina Marquez MD CF1 ATTENTION EDITS and/or ADDENDA must be made in Patient Keeper for this note. Edits and ammendments created in [facility] are not visible in Patient Keeper or [...] this note. Edits and ammendments created in [employer] are not visible in Patient Keeper or the legal medical record (HPF). RPT #: [id number] OF REPORTPRProgress wkdk4214-11-80D27:27:00P.XX-DPNW08150057-4425QKEy ailable for patient sshuUQJAWGRTJYYATW4731-51-50D42:13:54 [facility] 2023-08-15 11:45:00 [id number] 2ItXRlILV7nFKLbDopY6rFTF2bz5f y3Js3ZYKJZ2hJkTinDwk0qY9C+h1267-42-06E21:45:00 [facility] ([facility]) Hospitalist Progress Note REPORT #: [id number] REPORT STATUS: Signed DATE: 08/15/23 TIME: 1145 PATIENT: CHARLIE HART UNIT #: [id number] #: [id number] ROOM #: P.0311 BED: 1 : 35 AGE: 88 SEX: M ATTEND: Tony Gautam MD ADM AUTHOR: Tony Gautam MD ATTENTION EDITS and/or ADDENDA must be made in Patient Keeper for this note. Edits and ammendments created in [employer] are not visible in Patient Keeper or [...] anteroapical hypokinesis.The patient is being admitted to [facility] for higher level of care.Given [...] suggestive of angina.He was taken to the [place] emergency room on August 05, 2023 where he wasruled in for non-ST segment elevation myocardial infarction.He was started on heparin and transferred to [facility] where he wasobserved for a couple of days and improved on medical therapy.Echocardiogram showed apical wall motion abnormalities with preserved leftventricular ejection fraction.As the patient was doing well on medical management, [facility].He was seen by his primary covered button maker, Dr Deyvi Celis and admitted forselective coronary angiogramon August 09, 2023 to [facility].This showed multivessel coronary artery disease,LAD 90 to 99% lesion, left circumflex proximal 90%, 95% obtuse marginal lesion;Occluded proximal RCA. Left ventricular end-diastolic pressure 12;Left ventricular ejection fraction 40%, severe anteroapical hypokinesis.He has been transferred to [facility] for consideration of CABG by [...] this note. Edits and ammendments created in [facility] are not visible in Patient Keeper or the legal medical record (HPF). [facility] #: [id number] OF REPORTPRProgress ajrf2573-04-28S49:45:00P.PV-[id number] ailable for patient afaiPFWDUTUNEIRGUR3864-75-27I15:08:23 [facility] 2023-08-15 10:29:00 [id number] FCstC8Z1R8nyyQAB9YnmQuaC06Sxm C1Y3FVzKf5j5h33M7UVurylqeua4770-47-33U12:29:00 [facility] ([facility]) Cardiology Consultation REPORT #: [id number] REPORT STATUS: Signed DATE: 08/15/23 TIME: 1029 PATIENT: CHARLIE HART UNIT #: [id number] #: [id number] ROOM #: P.0311 BED: 1 : 35 AGE: 88 SEX: M ATTEND: Tony Gautam MD ADM AUTHOR: Kaleigh Gonzalez ATTENTION EDITS and/or ADDENDA must be made in Patient Keeper for this note. Edits and ammendments created in [employer] are not visible in Patient Keeper or [...] possible RA lead revision. 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 08/09/2023, PPM November 2021 FAMILY HISTORY:Noncontributory -SOCIAL HISTORY- LIVING SITUATION:, lives at home with and one of the daughters -- ALLERGIES/HOME MEDS -- ALLERGIES:No Known Allergies (UNKNOWN - Allergy) HOME MEDICATIONS:AREDS 2 CAP PO DAILYaspirin chewable tablet 81 MG PO DAILYAtorvastatin Tab (Lipitor Tab) 10 MG PO DAILYClopidogrel Tab (Plavix Tab) 75 MG PO DAILYFosamax tablet (alendronate) 70 MG PO T0OHahaphnmbs Mononitrate Tab.ER (Imdur Tab) 30 MG PO [...] on 08/16/23 at 21:29 at 2129 at 2129ATTENTION EDITS and/or ADDENDA must be made in Patient Keeper for this note. Edits and ammendments created in [facility] are not visible in Patient Keeper or the legal medical record (HPF). [facility] #: [id number] OF REPORTYDQrzyifgbfwgf4494-76-71L90:29:00P.PK-NO [id number] for patient yoxaUMTQKJIGTRKAFG2111-00-24R98:30:04 [facility] 2023-08-15 09:11:00 [id number] Qcw5y61/Hd62qI2/LUe/p9y7b9shj 3s4SUhxWf8bCWh9EADnreYCcjJL5926-58-27W43:11:00 [facility] ([facility]) Intensive Care Progress Note REPORT #: [id number] REPORT STATUS: Signed DATE: 08/15/23 TIME: 910 PATIENT: CHARLIE HART UNIT #: [id number] #: [id number] ROOM #: P.0311 BED: 1 : 35 AGE: 88 SEX: M ATTEND: Tony Gautam MD ADM AUTHOR: Yoav Hernandez MD ATTENTION EDITS and/or ADDENDA must be made in Patient Keeper for this note. Edits and ammendments created in [employer] are not visible in Patient Keeper or [...] reviewed with the clinical pharmacist Yoav Hernandez, [facility] [place] -- SUBJECTIVE -- PATIENT NARRATIVE:Overnight [...] this note. Edits and ammendments created in [employer] are not visible in Patient Keeper or the legal medical record (HPF). [facility] #: [id number] OF REPORTPRProgress ptnw4902-84-69H85:11:00P.NI-DMMH61812488-3293KCZv ailable for patient bawgLOIKJRPUHVVSVS8043-54-92L74:13:18 [facility] 2023-08-14 16:45:00 [id number]/CB 2ZJ3Nd1kgn2VR2hj0ZOQTfsayeZ/D XFXW+4wKcCeqE8/zcl2/f2L9sRG6583-08-03R25:45:00 [facility] ([facility]) Hospitalist Progress Note REPORT #: [id number] REPORT STATUS: Signed DATE: 08/14/23 TIME: 1644 PATIENT: CHARLIE HART UNIT #: [id number] #: [id number] [facility] B[facility]: 1 : 35 AGE: 88 SEX: M ATTEND: Tony Gautam MD ADM AUTHOR: Tony Gautam MD ATTENTION EDITS and/or ADDENDA must be made in Patient Keeper for this note. Edits and ammendments created in [employer] are not visible in Patient Keeper or [...] anteroapical hypokinesis.The patient is being admitted to [facility] for higher level of care.Given [...] suggestive of angina.He was taken to the [place] emergency room on August 05, 2023 where he wasruled in for non-ST segment elevation myocardial infarction.He was started on heparin and transferred to [facility] where he wasobserved for a couple of days and improved on medical therapy.Echocardiogram showed apical wall motion abnormalities with preserved leftventricular ejection fraction.As the patient was doing well on medical management, [facility].He was seen by his primary covered button maker, Dr Deyvi Celis and admitted forselective coronary angiogramon August 09, 2023 to [facility].This showed multivessel coronary artery disease,LAD 90 to 99% lesion, left circumflex proximal 90%, 95% obtuse marginal lesion;Occluded proximal RCA. Left ventricular end-diastolic pressure 12;Left ventricular ejection fraction 40%, severe anteroapical hypokinesis.He has been transferred to [facility] for consideration of CABG by [...] IV ASDIR PRNtraMADol HCL 50 MG PO C8HJGEIUEQYLYS TARTRATE 5 MG IV Q6H PRNACETAMINOPHEN 650 MG PO W9IXZKRWWJ CHLORIDE 10 mL 10 ML IV ASDIRFERROUS [...] this note. Edits and ammendments created in [employer] are not visible in Patient Keeper or the legal medical record (HPF). [facility] #: [id number] OF REPORTPRProgress ajuj8903-09-39M04:45:00P.MA-PRJQ53452392-7008ZBTg ailable for patient xobsOLWJGGUFRBTLNL2450-51-70D93:00:16 [facility] 2023-08-14 15:27:00 [id number]/ B00SqfOc9s+SVVXjWCFX3Qc7Utok4 O2uqR4KXECNIEryZr/WFWGCVgsF1662-89-01E39:27:00 [facility] ([facility]) Cardiology Progress Notes REPORT #: [id number] REPORT STATUS: Signed DATE: 08/14/23 TIME: 152 PATIENT: CHARLIE HART UNIT #: [id number] #: [id number] ROOM #: [facility] BED: 1 : 35 AGE: 88 SEX: M ATTEND: Tony Gautam MD ADM AUTHOR: Trina Marquez MD [facility] ATTENTION EDITS and/or ADDENDA must be made in Patient Keeper for this note. Edits and ammendments created in [employer] are not visible in Patient Keeper or the legal medical record (HPF). -- CO-SIGNATURE -- COMMENTS:Agree with the findings and plan as documented by HousestaffI have seen and examined this patient * my personal evaluation is S/p MTOKN-euv-fauuiusbhmrudx atrial fibrillation with rapid ventricularresponse-converted back to [...] IV ASDIR PRNtraMADol HCL 50 MG PO C8MCJXRPCQQOBX TARTRATE 5 MG IV Q6H PRNACETAMINOPHEN 650 MG PO A3GQCMBMMG CHLORIDE 10 mL 10 ML IV ASDIRFERROUS [...] this note. Edits and ammendments created in [facility] are not visible in Patient Keeper or the legal medical record (HPF). RPT #: [id number] OF REPORTPRProgress wekj4071-65-71J12:27:00P.NB-XHQZ76317724-5939ZTVl ailable for patient zqzgWRFWAXBVIBCUOX7414-62-70A48:50:48 [facility] 2023-08-14 10:33:00 [id number]+lp ey/3iOdWANc+YEEw/N2alPPVMwnJC WP7df7bVpGimyfeOs8+Gv5PlAWz0144-08-77V67:33:00 [facility] ([facility]) Intensive Care Progress Note REPORT #: [id number] REPORT STATUS: Signed DATE: 08/14/23 TIME: 1033 PATIENT: CHARLIE HART UNIT #: [id number] #: [id number] ROOM #: P.0311 BED: 1 : 35 AGE: 88 SEX: M ATTEND: Tony Gautam MD ADM AUTHOR: Yoav Hernandez MD ATTENTION EDITS and/or ADDENDA must be made in Patient Keeper for this note. Edits and ammendments created in [employer] are not visible in Patient Keeper or [...] reviewed with the clinical pharmacist Yoav Hernandez, [facility] [place] -- SUBJECTIVE -- PATIENT NARRATIVE:Overnight [...] IV ASDIR PRNtraMADol HCL 50 MG PO V7MPMCYWCJCKHS TARTRATE 5 MG IV Q6H PRNACETAMINOPHEN 650 [...] this note. Edits and ammendments created in [facility] are not visible in Patient Keeper or the legal medical record (HPF). RPT #: [id number] OF REPORTPRProgress lwgn1411-61-00M77:33:00P.AE-EFFC59445545-4990DLRi ailable for patient wgaiWCWEBOAUYYENPC0120-12-33E28:36:59 [facility] 2023-08-14 08:55:00 [id number] FyfVs9AgARmENu/okyoj1HWPiXqus LnQGFz74v5SgeZqKXixTboYYD3I7576-85-23R77:55:00 [facility] ([facility]) Progress Note REPORT #: [id number] REPORT STATUS: Signed DATE: 08/14/23 TIME: 854 PATIENT: CHARLIE HART UNIT #: [id number] #: [id number] ROOM #: P.0311 BED: 1 : 35 AGE: 88 SEX: M ATTEND: Tony Gautam MD ADM AUTHOR: Nile Fuentes MD ATTENTION EDITS and/or ADDENDA must be made in Patient Keeper for this note. Edits and ammendments created in [facility] are not visible in Patient Keeper or [...] IV ASDIR PRNtraMADol HCL 50 MG PO Y0NHZDEEMJQUAP TARTRATE 5 MG IV Q6H PRNACETAMINOPHEN 650 [...] this note. Edits and ammendments created in [facility] are not visible in Patient Keeper or the legal medical record (HPF). [facility] #: [id number] OF REPORTPRProgress cooa9825-35-98N14:55:00P.DS-DYBF52147083-9005CYBe ailable for patient igykGGRCTIOUFIDDXA6220-88-17F30:59:06 [facility] 2023-08-13 19:00:00 [id number] SafVGdPu/iyi2Un3I0OZ6vw/ypYwX m//WhhJFHJuw6wz93ofdGbU9LBo1498-39-74T98:00:00 [facility] ([facility]) Operative Report REPORT #: [id number] REPORT STATUS: Signed DATE: 08/13/23 TIME: 1900 PATIENT: CHARLIE HART UNIT #: [id number] #: [id number] ROOM #: P0311 BED: 1 : 35 AGE: 88 SEX: M ATTEND: Tony Gautam MD ADM AUTHOR: João Powell MD ATTENTION EDITS and/or ADDENDA must be made in Patient Keeper for this note. Edits and ammendments created in [employer] are not visible in Patient Keeper or the legal medical record ([facility]). -- OPERATION -- SURGERY START DATE/TIME:2023-08-13 09:47 PRE-OPERATIVE DIAGNOSIS:See Full Summary POST-OPERATIVE DIAGNOSIS:See Full Summary INDICATION(S):See Full Summary NAME OF PROCEDURE:See Full Summary TIME OUT COMPLETED:Yes SURGEON:João Powell MD MOBILE DESIGNER(S):See Full Summary ANESTHESIA:See Full Summary ESTIMATED BLOOD LOSS:800 ml's FINDINGS:See Full Summary SPECIMEN(S) REMOVED AND/OR ALTERED:See Full Summary COMPLICATION(S):See Full Summary -- DESCRIPTION -- DESCRIPTION OF TECHNIQUE/PROCEDURE: SURGEON 1ST MOBILE DESIGNER 2ND MOBILE DESIGNER DATE OFOPERATION Marylou Bosch P.A. Whitney Riemer, [...] August 05, 2023 thepatient was admitted [place] [facility] where non-STelevation myocardial infarction was ruled out. He was transferred to [facility] for observation. As his symptoms subsided, the patient wasdischarged and underwent a LHC (August 09, 2023). He was found to havecritical multivessel coronary artery disease (95 % LCx 99% LAD and SPRAYER OPERATOR of theRCA). Due to the above findings, the patient was transferred to [facility] for an urgent surgical coronary revascularization. [...] the complexity of this surgery, a surgical scheduler wasnecessary. Wiley Sierra PA-C was present and scrubbed for the entirety of thecase. Wiley was essential for the proper positioning, manipulation ofinstruments, maintenance/exposure of a clear surgical field.He helpedinitiating/weaning from cardiopulmonary bypass and completion of allanastomoses as described above. This operation could not have been safelyperformed (without compromising the technical results or length of theprocedure) without the assistance of a skilled salesperson surgical appliances. João Powell M.D. Signed in PatientKeeper by João Powell MD on 08/18/23 at 15:37 at 1537ATTENTION EDITS and/or ADDENDA must be made in Patient Keeper for this note. Edits and ammendments created in [facility] are not visible in Patient Keeper or the legal medical record (HPF). [facility] #: [id number] OF REPORTOPOperative ipdpju8307-17-66I02:00:00P.WM-[id number] Available for patient nsytVFTWJEBVVMRXBI2177-38-02B28:38:22 [facility] 2023-08-13 17:55:00 [id number] n56/y3QuVY8kd4CV8ykjqyL2dPT/N rFMq/3qqfYWnttPYQ8ryRqMdq820299-96-16J31:55:00 [facility] ([facility]) Hospitalist Progress Note REPORT #: [id number] REPORT STATUS: Signed DATE: 08/13/23 TIME: 175 PATIENT: CHARLIE HART UNIT #: [id number] #: [id number] ROOM #: P.0311 BED: 1 : 35 AGE: 88 SEX: M ATTEND: Tony Gautam MD ADM AUTHOR: Tony Gautam MD ATTENTION EDITS and/or ADDENDA must be made in Patient Keeper for this note. Edits and ammendments created in [employer] are not visible in Patient Keeper or [...] anteroapical hypokinesis.The patient is being admitted to [facility] for higher level of care.Given [...] suggestive of angina.He was taken to the [place] emergency room on August 05, 2023 where he wasruled in for non-ST segment elevation myocardial infarction.He was started on heparin and transferred to [facility] where he wasobserved for a couple of days and improved on medical therapy.Echocardiogram showed apical wall motion abnormalities with preserved leftventricular ejection fraction.As the patient was doing well on medical management, [facility].He was seen by his primary covered button maker, Dr Deyvi Celis and admitted forselective coronary angiogramon August 09, 2023 to [facility].This showed multivessel coronary artery disease,LAD 90 to 99% lesion, left circumflex proximal 90%, 95% obtuse marginal lesion;Occluded proximal RCA. Left ventricular end-diastolic pressure 12;Left ventricular ejection fraction 40%, severe anteroapical hypokinesis.He has been transferred to [facility] for consideration of CABG by [...] IV ASDIR PRNtraMADol HCL 50 MG PO A5NDCQOQSMDUHH TARTRATE 5 MG IV Q6H PRNACETAMINOPHEN 650 [...] this note. Edits and ammendments created in [facility] are not visible in Patient Keeper or the legal medical record (HPF). RPT #: [id number] OF REPORTPRProgress vdwo5777-64-25L31:55:00P.OD-[id number] ailable for patient gzacGZHPJTEOTJHYAF6620-69-89D08:08:03 [facility] 2023-08-13 17:33:00 [id number] GbRlTYDtLbAjLOA1cgYCijW4e1rR3 sKueyl5PRZydzS0daWNGWY962905998-69-46J65:33:00 [facility] ([facility]) Intensive Care Consultation REPORT #: [id number] REPORT STATUS: Signed DATE: 08/13/23 TIME: 1733 PATIENT: CHARLIE HART UNIT #: [id number] #: [id number] ROOM #: P.0311 BED: 1 : 35 AGE: 88 SEX: M ATTEND: Tony Gautam MD ADM AUTHOR: Yoav Hernandez MD ATTENTION EDITS and/or ADDENDA must be made in Patient Keeper for this note. Edits and ammendments created in [employer] are not visible in Patient Keeper or [...] reviewed with the clinical pharmacist Yoav Hernandez, [facility] [place] -- HISTORY -- HPI:Mr. Hart [...] source: Monitor I/Os (08/12 07:00 - 08/13 07:00):William 370Intake 370 -EXAM- GENERAL: Well developed, well [...] IV ASDIR PRNtraMADol HCL 50 MG PO X0ERMFOLKMXJTM TARTRATE 5 MG IV Q6H PRNACETAMINOPHEN 650 [...] 1.42 HEOSINOPHIL # 0.03BASOPHIL # 0.02 MAG (01/17/24 15:59)MAGNESIUM 2.2 PROTHROMBIN TIME (08/13/23 15:59)PROTHROMBIN TIME [...] this note. Edits and ammendments created in [facility] are not visible in Patient Keeper or the legal medical record (HPF). RPT #: [id number] OF REPORTISUhyfnyffuiif4123-28-43S15:33:00P.PK-NO [id number] for patient ievvOEBTPFTCGGUMYQ6157-00-41J48:40:08 [facility] 2023-08-13 16:08:00 [id number] eBlqeMZfalQNZEyoa9FqSrTM2563M /WkWJi5hdAEIlKacmXsSzcK9q4x3919-20-67P02:08:00 [facility] ([facility]) Brief Operative Report REPORT #: [id number] REPORT STATUS: Signed DATE: 08/13/23 TIME: 1608 PATIENT: CHARLIE HART UNIT #: [id number] #: [id number] ROOM #: P.0311 BED: 1 : 35 AGE: 88 SEX: M ATTEND: Tony Gautam MD ADM AUTHOR: Wiley Sierra ATTENTION EDITS and/or ADDENDA must be made in Patient Keeper for this note. Edits and ammendments created in [employer] are not visible in Patient Keeper or [...] SVG-->Ramus and SVG--> OM SURGEON:João Powell MD MOBILE DESIGNER(S):Wiley Starr PA-C FINDINGS:CAD ESTIMATED BLOOD LOSS (ML'S):800 SPECIMEN(S) REMOVED AND/OR ALTERED:none COMPLICATION(S):none DRAIN(S):28fr left pleural aoxy42ic chest tube ADDITIONAL COMMENTS:3 units of packed red blood cells, and 2 units of Cell Saver Signed in PatientKeeper by Wiley Sierra on 08/18/23 at 16:11 at 1611ATTENTION EDITS and/or ADDENDA must be made in Patient Keeper for this note. Edits and ammendments created in [employer] are not visible in Patient Keeper or the legal medical record ([facility]). [facility] #: [id number] OF REPORTOPOperative dwucif1936-02-97I56:08:00P.IS-[id number] Available for patient wqfeOMYKKBYWOTOIBA0715-02-23R33:12:13 [facility] 2023-08-13 10:26:00 [id number] n2D8cwgWvnb7f9FsAve/579TnodLW I+v9I9kl3x0b2qZTzVa6A6M5g9T8227-46-33E74:26:00 [facility] ([facility]) Cardiology Progress Notes REPORT #: [id number] REPORT STATUS: Signed DATE: 08/13/23 TIME: 1026 PATIENT: CHARLIE HART UNIT #: [id number] #: [id number] ROOM #: P.0418 BED: A : 35 AGE: 88 SEX: M ATTEND: Tony Gautam MD ADM AUTHOR: Trina Marquez MD [facility] ATTENTION EDITS and/or ADDENDA must be made in Patient Keeper for this note. Edits and ammendments created in [facility] are not visible in Patient Keeper or the legal medical record ([facility]). -- CO-SIGNATURE -- COMMENTS:The patient was seen [...] source: Monitor I/Os (08/12 07:00 - 08/13 07:00):William 370Intake 370 -EXAM- GENERAL: Well developed, well [...] PO BID PRNtraMADol HCL 50 MG PO L2DBWUKLZBHITV TARTRATE 5 MG IV Q6H PRNACETAMINOPHEN 650 [...] this note. Edits and ammendments created in [facility] are not visible in Patient Keeper or the legal medical record (HPF). RPT #: [id number] OF REPORTPRProgress sijd6557-64-79X60:26:00P.FK-NRZW16012111-3801CNZb ailable for patient vwehVOZPFBEQUSQJTI7199-25-28I33:13:52 [facility] 2023-08-13 09:43:00 [id number] oNl2eGHc+H7SpJHKd7RFgmrvJ4LMB dZSRlcV5lCfBTnDP2nEzgqIN+J15066-08-61W03:43:00 [facility] ([facility]) Progress Note REPORT #: [id number] REPORT STATUS: Signed DATE: 08/13/23 TIME: 942 PATIENT: CHARLIE HART UNIT #: [id number] #: [id number] ROOM #: P.0311 BED: 1 : 35 AGE: 88 SEX: M ATTEND: Tony Gautam MD ADM AUTHOR: Nile Fuentes MD ATTENTION EDITS and/or ADDENDA must be made in Patient Keeper for this note. Edits and ammendments created in [employer] are not visible in Patient Keeper or [...] EYE BID PRNMETOPROLOL SUCCINATE 25 MG PO E47YYQAIACJDU SODIUM 100 MG PO BIDLACTULOSE 30 ML [...] this note. Edits and ammendments created in [employer] are not visible in Patient Keeper or the legal medical record (HPF). RPT #: [id number] OF REPORTPRProgress dxts6317-99-53B48:43:00P.JJ-QIIX19633615-9525IGCk ailable for patient afdbVGYQYOPIMOLYXL2822-88-15F44:47:30 [facility] 2023-08-13 08:26:00 [id number] g5evC3Ficsgrlbc2V/i6COzGJ4met Vu3VAL4PZbK7NRMvFXYZ7ooBa9Q6612-20-75N04:26:00 [facility] ([facility]) Cardiothoracic Surg. Prog NoteREPORT #: [id number] REPORT STATUS: Signed DATE: 08/13/23 TIME: 825 PATIENT: CHARLIE HART UNIT #: [id number] #: [id number] ROOM #: P.0417 BED: A : 35 AGE: 88 SEX: M ATTEND: Tony Gautam MD ADM AUTHOR: Wiley Sierra ATTENTION EDITS and/or ADDENDA must be made in Patient Keeper for this note. Edits and ammendments created in [employer] are not visible in Patient Keeper or [...] White, male, 74kg, 172cm, BMI: 25 kg/mInsurance/Payor: [facility] Values: Creatinine: 1.1 mg/dL, Hematocrit: 35.7%, WBC Count: 8.3 10/L,Platelet Count: 133117 cells/LSubstance Abuse: Former smokerRisk Factors / Comorbidities: Hypertension, Family Hx of CADVascular RF: Cerebrovascular Disease: TIACardiac Status: Chronic heart failure, NYHA Class III, Ejection Fraction = 39%Coronary Artery Disease: 3 vessels diseased, Proximal LAD Stenosis 70%, Non-STElevation CT, CT: 8 to 21 DaysValve Disease: Aortic Stenosis, [...] call for help and [place]himself [place]. He was ruled in for NSTEMI and[facility]. His chest pain improved on medicaltherapy, but echocardiogram showed apical wall motion abnormalities. Thepatient was not happy with his care and discharged home. He saw hiscardiologist, Dr. Celis in the office on 08/07 and scheduled for outpatientcardiac catheterization on 08/09. His last nuclear stress test was negative [id number] and last catheterization was in 1991. The patient underwent coronaryangiogram by Dr. Celis on 08/09 that showed LAD (90 to 99% lesion), circumflexproximal 90%, 95% obtuse marginal lesion, RCA (proximal SPRAYER OPERATOR), LVEDP 12, LVEF40%, severe anteroapical hypokinesis. The [facility] of urgent coronary artery bypass. The patient endorses the abovehistory. He denies any chest pain or [facility] -- OBJECTIVE -- VITALS (08/12 08:27 [...] PO Q4H PRNMETOPROLOL SUCCINATE 25 MG PO E16MHPGRKAOEO SODIUM 100 MG PO BIDLACTULOSE 30 ML [...] this note. Edits and ammendments created in [employer] are not visible in Patient Keeper or the legal medical record ([facility]). RPT #: [id number] OF REPORTPRProgress abyd5645-62-08U34:26:00P.NH-[id number] ailable for patient fyyjRDVLBMDVNZYGND8642-77-45I07:34:14 [facility] 2023-08-12 15:34:00 [id number] XhntZryZyF912mlcNQyF2I1cx7Hnz 2vQxHrtDd0QG0P/zbUHkiczxPNC7812-05-91E50:34:00 [facility] ([facility]) Hospitalist Progress Note REPORT #: [id number] REPORT STATUS: Signed DATE: 08/12/23 TIME: 1534 PATIENT: CHARLIE HART UNIT #: [id number] #: [id number] ROOM #: P.0417 BED: A : 35 AGE: 88 SEX: M ATTEND: Tony Gautam MD [facility] AUTHOR: Tony Gautam MD ATTENTION EDITS and/or ADDENDA must be made in Patient Keeper for this note. Edits and ammendments created in [facility] are not visible in Patient Keeper or the legal medical record ([facility]). -- ASSESSMENT AND PLAN -- GENERAL ASSESSMENT: ASSESSMENT AND PLAN: 1. Recent non-ST segment elevation myocardial infarction, around July.S/p coronary angiogram 08/09 showing multivessel coronary artery disease,not amenable to percutaneous coronary intervention.LAD 90 to 99% lesion, left circumflex proximal 90%, 95% obtuse marginal lesion;Occluded proximal RCA. Left ventricular end-diastolic pressure 12;Left ventricular ejection fraction 40%, severe anteroapical hypokinesis.The patient is being admitted to [facility] for higher level of care.Given [...] suggestive of angina.He was taken to the [place] emergency room on August 05, 2023 where he wasruled in for non-ST segment elevation myocardial infarction.He was started on heparin and transferred to [facility] where he wasobserved for a couple of days and improved on medical therapy.Echocardiogram showed apical wall motion abnormalities with preserved leftventricular ejection fraction.As the patient was doing well on medical management, [facility]He was seen by his primary covered button maker, Dr Deyvi Celis and admitted forselective coronary angiogramon August 09, 2023 to [facility].This showed multivessel coronary artery disease,LAD 90 to 99% lesion, left circumflex proximal 90%, 95% obtuse marginal lesion;Occluded proximal RCA. Left ventricular end-diastolic pressure 12;Left ventricular ejection fraction 40%, severe anteroapical hypokinesis.He has been transferred to [facility] for consideration of CABG by [...] source: Monitor I/Os (08/11 07:00 - 08/12 07:00):William 270Intake 270Output 0 -EXAM- GENERAL: Well developed, [...] PO Q4H PRNMETOPROLOL SUCCINATE 25 MG PO [id number] SODIUM 100 MG PO BIDLACTULOSE 30 ML [...] this note. Edits and ammendments created in [employer] are not visible in Patient Keeper or the legal medical record (HPF). RPT #: [id number] OF REPORTPRProgress svwk7463-97-44A26:34:00P.IG-[id number] ailable for patient wfmoKDLUSGTAWZMFBQ9309-20-89R24:29:35 [facility] 2023-08-12 10:55:00 [id number] YQQiP8O7c5CXxU1zZulTXj5mNaFFN P1HnjoIfkCS77lqCPQYI27SfwTS7706-60-14S04:55:00 [facility] ([facility]) Cardiothoracic Surg. Consult REPORT #: [id number] REPORT STATUS: Signed DATE: 08/12/23 TIME: 1054 PATIENT: CHARLIE HART UNIT #: [id number] #: [id number] ROOM #: P.0311 BED: 1 : 35 AGE: 88 SEX: M ATTEND: Tony Gautam MD ADM AUTHOR: Rosie Starr ATTENTION EDITS and/or ADDENDA must be made in Patient Keeper for this note. Edits and ammendments created in [employer] are not visible in Patient Keeper or the legal medical record (HPF). -- ASSESSMENT AND PLAN -- GENERAL ASSESSMENT:Patient is an 88-year-old male with a long history of nonobstructive coronaryartery disease who presented to an outside ED with unstable angina and ruled infor NSTEMI. He was transferred to [facility] and underwent coronary angiogrampositive for severe multi-vessel disease and subsequently transferred to [facility] coronary revascularization. The patient's entire medical chart has beenreviewed. Dr. Powell has reviewed the patient's chest CT and coronary angiogramdemonstrating severe triple vessel disease with proximal LAD lesion, 90%proximal circumflex, 95% OM, and SPRAYER OPERATOR on the right. He has excellent bypasstargets. [...] and mild tricuspid regurgitation. Previousechocardiogram report from [place] with no aortic stenosis. Despite thepatient's age, [...] Procedure Type: Isolated CABGPerioperative OutcomeEstimate %Operative Mortality6.82%Morbidity Tzijthsgh92.7%Stroke1.98%Renal Failure2.45%Reoperation3.87%Prolonged Ventilation7.21%Deep Sternal Wound Infection0.098%Long Hospital Stay (>14 days)12.8%Short Hospital Stay (<6 days)*16.6% Clinical SummaryPlanned Surgery:Isolated CABG, Urgent, First cardiovascular surgeryDemographics:88 year old, White, male, 74kg, 172cm, BMI: 25 kg/mInsurance/Payor:[facility] Values:Creatinine: 1.1 mg/dL, Hematocrit: 35.7%, WBC Count: 8.3 10/L,Platelet Count: 988330 cells/LSubstance Abuse:Former smokerRisk Factors / Comorbidities:Hypertension, Family Hx of CADVascular RF:Cerebrovascular Disease: TIACardiac Status:Chronic heart failure, NYHA Class III, Ejection Fraction = 39%Coronary Artery Disease:3 vessels diseased, Proximal LAD Stenosis 70%, Non-STElevation CT, CT: 8 to 21 DaysValve Disease:Aortic Stenosis, Mild MR, Mild TRArrhythmia:Remote 2 Degree BlockPrev. Cardiac Interv:Previous other: Permanent Pacemaker - Yes, STS risk calculator score was calculated and discussed withpatient/family prior to surgery as documented in the medical record -- HISTORY -- CONSULT REQUESTED BY:Deyvi Celis MD Cardiology REASON FOR CONSULT:Severe multi-vessel coronary artery disease. CHIEF COMPLAINT:The patient was transferred from [facility] for CABG evaluation. HPI:Mr. Hart is [...] call for help and [place]himself [place] the [place]. He was ruled in for NSTEMI andtransferred [facility]. His chest pain improved on medicaltherapy, but echocardiogram showed apical wall motion abnormalities. Thepatient was not happy with his care and discharged home. He saw hiscardiologist, Dr. Celis in the office on 08/07 and scheduled for outpatientcardiac catheterization on 08/09. His last nuclear stress test was negative [id number] and last catheterization was in 1991. The patient underwent coronaryangiogram by Dr. Celis on 08/09 that showed LAD (90 to 99% lesion), circumflexproximal 90%, 95% obtuse marginal lesion, RCA (proximal SPRAYER OPERATOR), LVEDP 12, LVEF 40%, severe anteroapical hypokinesis. The patient was transferred [facility] forconsideration of urgent coronary artery bypass. The [...] -SOCIAL HISTORY- -TOBACCO USE- DETAILS/COMMENTS:Former smoker. Quit 1972 - Smoked 2packs/day x 10 years. -VAPING/INHALED [...] PO DAILYFosamax tablet (alendronate) 70 MG PO Q3TNqkgntcabj Mononitrate Tab.ER (Imdur Tab) 30 MG PO [...] PO Q4H PRNMETOPROLOL SUCCINATE 25 MG PO Y07MYLBJKWKRM SODIUM 100 MG PO BIDLACTULOSE 30 ML [...] this note. Edits and ammendments created in [employer] are not visible in Patient Keeper or the legal medical record (HPF). RPT #: [id number] OF REPORTIUOffqbbgsgdcl5285-19-40R14:55:00P.PK-NO [id number] for patient xctdGKSEHOFFWGBTOZ5912-64-39R92:55:07 [facility] 2023-08-12 08:46:00 [id number] bgTIpaboLKjkEgoRY3ehQkm3xIdDI 0ZoCXC+clxb2MLtBUOIfTBJN+wn7168-43-79E14:46:00 [facility] ([facility]) Cardiology Progress Notes REPORT #: [id number] REPORT STATUS: Signed DATE: 08/12/23 TIME: 845 PATIENT: CHARLIE HART UNIT #: [id number] #: [id number] ROOM #: P.[facility] BED: A : 35 AGE: 88 SEX: M ATTEND: Tony Gautam MD ADM AUTHOR: Annette Chow ATTENTION EDITS and/or ADDENDA must be made in Patient Keeper for this note. Edits and ammendments created in [employer] are not visible in Patient Keeper or [...] pain, suggestive of angina, and presented at [place] emergency room on 08/05/22 for further evaluation and management. He wasruled in NSTEMI, started on heparin drip and transferred to [facility]. He wasobserved and pain resolved on medical therapy (per records). He was discharged.He was seen by cardiology services (Dr. Celis) as outpatient and underwentelective coronary angiogram on 08/09/22 at [facility] and showed multi-vesselcoronary artery disease, LAD (90 to 99% lesion),LCx proximal 90%, 95% obtusemarginal lesion, RCA (occluded proximal), LVEDP 12, LVEF 40%, severeanteroapical hypokinesis. He was transferred here to [facility] for considerationof CABG by Dr. João Powell. - Echo (08/10/23) - EF 35-39%, grade I diastolic dysfunction, moderate to severeAS, mild MR/TR- SCA to be reviewed by Dr. Powell and Dr. Deng to assess candidacy for CABGvs. PCI. The patient states does not want to have CABG and would prefer tohave PCI if recommended by his covered button maker (Dr. Celis). NPO after midnightif consensus is [...] undergo surgery and would prefer PCIif his covered button maker (Dr. Celis) recommends it. No acute events [...] PO Q4H PRNMETOPROLOL SUCCINATE 25 MG PO T70NKNZQOTXEK SODIUM 100 MG PO BIDLACTULOSE 30 ML [...] this note. Edits and ammendments created in [employer] are not visible in Patient Keeper or the legal medical record (HPF). [facility] #: [id number] OF REPORTPRProgress htxk1675-24-35D05:46:00P.RW-CKRG90165538-3364EWGc ailable for patient bjovUSBDPXZJSVQFPY5754-39-85A30:13:51 [facility] 2023-08-11 13:53:00 [id number] Zt98W9TLDJVNQpAHmY0Bg8xUSn6HO jMXxriWBh/ae810jlfDmN126+Ll0768-40-66R63:53:00 [facility] ([facility]) Hospitalist Progress Note REPORT #: [id number] REPORT STATUS: Signed DATE: 08/11/23 TIME: 1353 PATIENT: CHARLIE HART UNIT #: [id number] #: [id number] ROOM #: [facility]7 BED: A : 35 AGE: 88 SEX: M ATTEND: Tony Gautam MD ADM AUTHOR: Tony Gautam MD ATTENTION EDITS and/or ADDENDA must be made in Patient Keeper for this note. Edits and ammendments created in [employer] are not visible in Patient Keeper or [...] anteroapical hypokinesis.The patient is being admitted to [facility] for higher level of care.Given [...] suggestive of angina.He was taken to the [place] emergency room on August 05, 2023 where he wasruled in for non-ST segment elevation myocardial infarction.He was started on heparin and transferred to [facility] where he wasobserved for a couple of days and improved on medical therapy.Echocardiogram showed apical wall motion abnormalities with preserved leftventricular ejection fraction.As the patient was doing well on medical management, [facility].He was seen by his primary covered button maker, Dr Deyvi Celis and admitted forselective coronary angiogramon August 09, 2023 to [facility].This showed multivessel coronary artery disease,LAD 90 to 99% lesion, left circumflex proximal 90%, 95% obtuse marginal lesion;Occluded proximal RCA. Left ventricular end-diastolic pressure 12;Left ventricular ejection fraction 40%, severe anteroapical hypokinesis.He has been transferred to [facility] for consideration of CABG by [...] PO Q4H PRNMETOPROLOL SUCCINATE 25 MG PO M38CWSMYDLWIX SODIUM 100 MG PO BIDLACTULOSE 30 ML [...] this note. Edits and ammendments created in [facility] are not visible in Patient Keeper or the legal medical record (HPF). RPT #: [id number] OF REPORTPRProgress dyxm5554-35-62C30:53:00P.SX-NAQA59387440-2972FAJx ailable for patient tysaFYFPZKDMYNNXWY2861-11-56D13:26:21 [facility] 2023-08-11 08:30:00 [id number] FEPqH6Cf1UBt8SacFf+zlbUKXb9yS +wcaYIOCrH+QM0Q4MJlPMCd1+6n5555-42-22S23:30:00 [facility] ([facility]) Cardiology Progress Notes REPORT #: [id number] REPORT STATUS: Signed DATE: 08/11/23 TIME: 829 PATIENT: CHARLIE HART UNIT #: [id number] #: [id number] [facility] AGE: 88 SEX: M ATTEND: Tony Gautam MD ADM AUTHOR: Annette Chow ATTENTION EDITS and/or ADDENDA must be made in Patient Keeper for this note. Edits and ammendments created in [facility] are not visible in Patient Keeper [...] pain, suggestive of angina, and presented at [facility] emergency room on 08/05/22 for further evaluation and management. He wasruled in NSTEMI, started on heparin drip and transferred to [facility]. He wasobserved and pain resolved on medical therapy (per records). He was discharged.He was seen by cardiology services (Dr. Celis) as outpatient and underwentelective coronary angiogram on 08/09/22 at [facility] and showed multi-vesselcoronary artery disease, LAD (90 to 99% lesion),LCx proximal 90%, 95% obtusemarginal lesion, RCA (occluded proximal), LVEDP 12, LVEF 40%, severeanteroapical hypokinesis. He was transferred here to [facility] for considerationof CABG by Dr. João Powell. [...] source: Monitor I/Os (08/10 07:00 - 08/11 07:00):[employer] 700Intake 700 -EXAM- OTHER: Constitutional: Well developed, [...] PO Q4H PRNMETOPROLOL SUCCINATE 25 MG PO S01ONWHRTXBDO SODIUM 100 MG PO BIDLACTULOSE 30 ML [...] this note. Edits and ammendments created in [facility] are not visible in Patient Keeper or the legal medical record ([facility]). [facility] #: [id number] OF REPORTPRProgress diho8908-35-81O47:30:00P.QQ-LELG23934459-4563DZHj ailable for patient xzruAPZCHFRMGLXCMO5982-92-31H62:13:48 [facility] 2023-08-11 07:46:00 [id number] CfvfaEEm5zuIyh8c3zIeSd0AEhPHP 4pH2o4YJZCYeWMbDWmT45eCZKQO5560-14-03O36:46:54559 5-[address] [address]DKHCVZI NAME: CHARLIE HART ADMIT DATE: 08/09/23ACCOUNT NO: [id number] ROOM NO: P.0427 AGE: 88 REPORT TYPE: eECHOCARDIOGRAM REPORT SEX: M ADMITTING PHYSICIAN: Tony Gautam MD ATTENDING PHYSICIAN: Tony Gautam MD *[facility]*[address] [place], [place] [address]Phone Transthoracic Echocardiogram Patient: Charlie HartStudy Date: 4BP:URN: [id number]: [id number]#: [id number]: 5Age: 88Gender: MHeight: 68 in / 172.7 cmWeight: 167 lb / 75.8 kgBMI/BSA: 25.4 kg/m 2 / 1.92 m 2*Ordering Physician: * Nj Oliva Cf1 *Interpreting Physician: * Cyril Umana MD*Community Action Worker: * Mindy Chaudhry Indications: Chest Pain, unspecified. [...] at 0746 PATIENT NAME: CHARLIE HART :46:0 0P.[id number] for patient shzzZGUNNGNZGYNOKF1282-48-14G69:46:47 [facility] 2023-08-10 13:18:00 [id number] GAq2Zpm68/ozPJMV9V+QmgQQbbQhZ PBnAuTKoxr7M+ApFMXocajdDTSN2349-10-09W70:18:00 [facility] ([facility]) Hospitalist Progress Note REPORT #: [id number] REPORT STATUS: Signed DATE: 08/10/23 TIME: 8 PATIENT: CHARLIE HART UNIT #: [id number] #: [id number] ROOM #: [facility] BED: A : 35 AGE: 88 SEX: M ATTEND: Tony Gautam MD ADM AUTHOR: Tony Gautam MD ATTENTION EDITS and/or ADDENDA must be made in Patient Keeper for this note. Edits and ammendments created in [facility] are not visible in Patient Keeper or [...] anteroapical hypokinesis.The patient is being admitted to [facility] for higher level of care.Given [...] suggestive of angina.He was taken to the [place] emergency room on August 05, 2023 where he wasruled in for non-ST segment elevation myocardial infarction.He was started on heparin and transferred to [facility] where he wasobserved for a couple of days and improved on medical therapy.Echocardiogram showed apical wall motion abnormalities with preserved leftventricular ejection fraction.As the patient was doing well on medical management, he was discharged from theother hospital without intervention.He was seen by his primary covered button maker, Dr Deyvi Celis and admitted forselective coronary angiogramon August 09, 2023 to [facility].This showed multivessel coronary artery disease,LAD 90 to 99% lesion, left circumflex proximal 90%, 95% obtuse marginal lesion;Occluded proximal RCA. Left ventricular end-diastolic pressure 12;Left ventricular ejection fraction 40%, severe anteroapical hypokinesis.He has been transferred to [facility] for consideration of CABG by [...] PO Q4H PRNMETOPROLOL SUCCINATE 25 MG PO G43IKPLYOJIRG SODIUM 100 MG PO BIDLACTULOSE 30 ML [...] this note. Edits and ammendments created in [employer] are not visible in Patient Keeper or the legal medical record (HPF). RPT #: [id number] OF REPORTPRProgress mtqg0780-94-80Y84:18:00P.GP-PBEX80147355-7666VNGy ailable for patient zlqmIYMBPFYXOPQIAJ0555-50-36N72:24:03 [facility] 2023-08-10 08:50:00 [id number] weA6bloMWauinIeSvxzmmPAEQD1UO rLHczGYeLTF+wGNkjz3JIBs99fV8164-61-24M63:50:00 [facility] ([facility]) Cardiology Consultation REPORT #: [id number] REPORT STATUS: Signed DATE: 08/10/23 TIME: 0850 PATIENT: CHARLIE HART #: [id number] #: [id number] ROOM #: P.0427 BED: A : 35 AGE: 88 SEX: M ATTEND: Tony Gautam MD ADM AUTHOR: Nj Oliva DO CF1 ATTENTION EDITS and/or ADDENDA must be made in Patient Keeper for this note. Edits and ammendments created in [employer] are not visible in Patient Keeper or the legal medical record (HPF). -- CO-SIGNATURE -- COMMENTS:Seen and examined with utility locate technician Dr. Oliva. PE:NAD, alert and awakeRRR, no m/g/rCTAB 88-year-old male with a past medical history of hypertension, cardiomyopathy,hyperlipidemia, prostate cancer, pacemaker placement who was transferred forCABG evaluation. He was recently admitted to [facility] for an NSTEMI. Hefollowed up with his covered button maker Dr. Celis who performed a left heartcatheterization on him on August 09 at [facility]. This showed severemultivessel coronary artery disease and he was transferred for possible CABG.plan to repeat echocardiogram here. I reviewed heart catheterization, patienthas SPRAYER OPERATOR of the proximal RCA with collaterals from the left system. He also hasa SPRAYER OPERATOR of the proximal LAD with very well-formed [...] suggestive ofangina. He was taken to the [place] emergency room on August 05, 2023where he was ruled in for non-ST segment elevation myocardial infarction. Hewas started on heparin and transferred to [facility] where he wasobserved for a couple of days and improved on medical therapy. Echocardiogramshowed apical wall motion abnormalities with preserved left ventricularejection fraction. As the patient was doing well on medical management, he wasdischarged from the other hospital without intervention. He was seen by hisprimary covered button maker, Dr Deyvi Celis and admitted for selective coronaryangiogram on August 09, 2023 to [facility]. This showed multivessel coronaryartery disease, LAD 90 to 99% lesion, left circumflex proximal 90%, 95% obtusemarginal lesion; Occluded proximal RCA. Left ventricular end-diastolic xkuageal53; Left ventricular ejection fraction 40%, severe anteroapical hypokinesis. Hehas been transferred to [facility] for consideration of CABG by Dr.Eyal Powell. When seen in the room the patient is awake alert and oriented andverbalizes the above. He denies any chest pain or shortness of breath at thistime. Denies any headache or dizziness. No nausea vomiting. 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 Edits and ammendments created in [employer] are not visible in Patient Keeper or the legal medical record ([facility]). RPT #: [id number] OF REPORTUKThotjumyrjpj5295-76-07I66:50:00P.PK-NO [id number] for patient xkinWZXLVIILXGUZIE9469-27-88N55:44:54 [facility] 2023-08-09 16:44:00 [id number] t+tNBfIu6HKvsr4UoMVlvudbpl2F3 Do9B+IQ/PEV5xF0SEW3JuI1XGxA8500-58-99F05:44:00 [facility] ([facility]) Hospitalist H P REPORT #: [id number] REPORT STATUS: Signed DATE: 08/09/23 TIME: 1643 PATIENT: CHARLIE HART UNIT #: [id number] #: [id number] ROOM #: P.0417 BED: A : 35 AGE: 88 SEX: M ATTEND: Tony Gautam MD ADM AUTHOR: Tony Gautam MD ATTENTION EDITS and/or ADDENDA must be made in Patient Keeper for this note. Edits and ammendments created in [employer] are not visible in Patient Keeper or the legal medical record ([facility]). -- HISTORY -- ADMISSION DATE:2023-08-09 CHIEF COMPLAINT:1. Angina pectoris.2. Severe multivessel coronary artery disease, not amenable to percutaneouscoronary intervention. The patient is being admitted to [facility] forconsideration of CABG HPI: This [...] suggestive of angina.He was taken to the [place] emergency room on August 05, 2023 where he wasruled in for non-ST segment elevation myocardial infarction.He was started on heparin and transferred to [facility] where he wasobserved for a couple of days and improved on medical therapy.Echocardiogram showed apical wall motion abnormalities with preserved leftventricular ejection fraction.As the patient was doing well on medical management, [facility].He was seen by his primary covered button maker, Dr Deyvi Celis and admitted forselective coronary angiogramon August 09, 2023 to [facility].This showed multivessel coronary artery disease,LAD 90 to 99% lesion, left circumflex proximal 90%, 95% obtuse marginal lesion;Occluded proximal RCA. Left ventricular end-diastolic pressure 12;Left ventricular ejection fraction 40%, severe anteroapical hypokinesis.He has been transferred to [facility] for consideration of CABG by [...] weekAtorvastatin 10 mgIsosorbide mononitrate 30 mgTramadol 150 xbJ25Llgmwtsr -- SUBJECTIVE -- -REVIEW OF SYSTEMS- GENERAL: [...] patent foramen ovale is identified.Electronically signed by Devyi Celis MD08/06/2023 17:28 -- ASSESSMENT AND PLAN [...] anteroapical hypokinesis.The patient is being admitted to [facility] for higher level of care,consideration [...] this note. Edits and ammendments created in [facility] are not visible in Patient Keeper or the legal medical record (HPF). [facility] #: [id number] OF REPORTHPHistory and physical ckizyiyvjqm9974-28-39F01:44:00P.NT-CRSF67623434-3 200AVAvailable for patient denyOGETOKHFESIXNE1951-06-28F33:53:20 [facility] 2023-08-09 13:23:00 [id number] Yvgq2wS4F5zmJ5N1LCAvOLt5nxt4p 9/SiWl8fR0kbmw1EyQeJPVyWQw14183-60-55Q77:23:22247 4-0001 [place] [address] PATIENT NAME: CHARLIE HART ADMIT DATE: 08/09/23ACCOUNT NO: [id number] ROOM NO: AGE: 88 REPORT TYPE: DISCHARGE SUMMARY SEX: M ADMITTING PHYSICIAN: ATTENDING PHYSICIAN: Deyvi Celis MD Cardiology ADMISSION DATE: 08/09/2023 07:15:00DISCHARGE DATE: REASON FOR DISCHARGE: The patient is being transferred to the [facility] for bypass later on this [...] the family and the surgeon in the [facility], it was decided best to transfer the patient while stable to the [facility] for bypass later on this week. The patient will be needing to be taken off Plavix and put on Lovenox for the next few days and then adjust his medications and then proceed with bypass, so the patient is being transferred electively to a [facility] bed for the planned bypass. This was alldiscussed in detail with the accepting physicians and the patient and his family. Dictated By: Deyvi Celis MD Date Dictated: 08/09/2023 13:23:31Date Transcribed: 08/10/2023 02:22:15SBRIANA/Renetta #: [id number] ID: [id number] by Deyvi Celis MD On 08/10/2023 06:36:20 AM at 0636 PATIENT NAME: CHARLIE HART hgfispy4335-37-92K90:22:00L.RSW89762225-2207QZMpk ilable for patient tghzDVOEYQGSGUHPXQ3267-49-13W59:37:00 [facility] 2023-08-09 10:27:00 [id number] gAYQzx2k+P90z5+KjJ5OnQO6LLppw ND6g11fk8GUf13gTBYQE8Y01oEZ9777-07-95E36:27:02750 3-[address] [address] PATIENT NAME: CHARLIE HART ADMIT DATE: 08/09/23ACCOUNT NO: [id number] ROOM NO: AGE: 88 REPORT TYPE: OPERATIVE REPORT SEX: M ADMITTING PHYSICIAN: ATTENDING PHYSICIAN: Deyvi Celis MD Cardiology OPERATION DATE: 08/09/2023 CRAB MEAT PROCESSOR: Deyvi Celis MD MOBILE DESIGNER: PREOPERATIVE DIAGNOSIS: POSTOPERATIVE DIAGNOSIS: TITLE OF PROCEDURE: [...] femoral artery area for local anesthesia. A 6-Comoran sheath was placed in the right common [...] MD Date Dictated: 08/09/2023 10:27:56Date Transcribed: 08/09/2023 13:25:37SFD/Brant #: [id number] ID: [id number] by Deyvi Celis MD On 08/09/2023 01:36:14 PM at 0136 PATIENT NAME: CHARLIE HART bqihiw7179-67-73I11:25:00L.SMJ27307944-5573HNRzew lable for patient uhdpPJRGOUTLQWXLNR1359-72-28A43:36:44 [facility] 2023-08-09 07:47:00 [id number]/M 0mfk48KVbpy3wMAOlKNJCMTzWuQlF 2O4KuuCAD0bHDsO+KazLoLC0Qtf4573-78-92M79:47:65510 3-0006 [place] [address] PATIENT NAME: CHARLIE HART ADMIT DATE: 08/09/23ACCOUNT NO: [id number] ROOM NO: AGE: 88 REPORT TYPE: eELECTROCARDIOGRAM SEX: M ADMITTING PHYSICIAN: ATTENDING PHYSICIAN: Deyvi Celis MD Order:[id number] Reason : PREOP Test Date/Time Stamp:FriAug 09 [...] CELIS at 0951 PATIENT NAME: CHARLIE HART .[id number] AVAvailable for patient camkRTHSWCMYFKEJTO5982-34-81H28:51:55 [facility] 2023-08-08 07:19:00 [id number] Lr0pC6qqi+h4nrOs8W4ivTUSzEYM+ U9iSpun2odWENsyOQf04T+diJKL6365-64-08F49:19:16652 2-0009 [facility] [address] [place] [address] PATIENT NAME: CHARLIE HART ADMIT DATE: ACCOUNT NO: [id number] ROOM NO: AGE: 88 REPORT TYPE: PREOP HP REPORT SEX: M ADMITTING PHYSICIAN: ATTENDING PHYSICIAN: Deyvi Celis MD Cardiology PATIENT NAME: CHARLIE HART ADMIT DATE:08/09/2023DMISSION DATE: 08/09/2023 12:30:00 CRAB MEAT PROCESSOR: Deyvi Celis MD REASON FOR ADMISSION: Unstable [...] pain got worse, so he went to [facility] Room on 08/05/2023 where he was ruled in for a non-ST wave myocardialinfarction. By that time, his chest pain was getting better. [facility], his [...] pulmonaryhypertension, osteoarthritis, benign prostatic hyperplasia, and vitamin I23eyldmjhnrw. PAST SURGICAL HISTORY: He has had knee replacement, hernia, cholecystectomy,hip and shoulder replacement, prostate cancer, skin cancer, the above-mentionedpacemaker. ALLERGIES: NO KNOWN DRUG ALLERGIES. MEDICATIONS: Aspirin 81 mg daily, Plavix 75 mg daily, metoprolol 25 mg daily, PATIENT NAME: CHARLIE HART alendronate 70 mg, atorvastatin 10 mg daily, isosorbide 30 mg daily, qniwhesc544 mg daily, B12, and eyedrops. SOCIAL HISTORY: [...] Pending. Laboratory data and cardiac evaluation from [facility] was reviewed. Noninvasive workup from my [...] MD Date Dictated: 08/08/2023 07:19:23Date Transcribed: 08/08/2023 08:55:16SFD/LINDA/ALEXAUJob #: [id number] ID: [id number] and Edited by Deyvi Celis MD On 08/08/23 5:22:53 PM PATIENT NAME: CHARLIE HART at 0523 PATIENT NAME: CHARLIE HART and physical vuqwgonivht6377-59-51C10:55:00L.[id number] VAvailable for patient amkcZWZPXPDLEZZJMG6138-15-75R15:25:56 [facility] 2023-08-07 09:15:00 [id number]+qghJTGU JwnOhSgV+OhMYQgo+6EgazwfVYeZl aOKsmf9OdzPLXFqxac6w6U9QPMn2797-54-42L17:15:00 [facility] Discharge SummaryREPORT#:[id number] REPORT STATUS: SignedREPORT INITIALIZATION DATE:08/07/23 TIME: 914 PATIENT: CHARLIE HART UNIT #: [id number]#: [id number] ROOM[facility]BED: [facility]-ADOB: [birth year] AGE: 88 SEX: M ATTEND: Alvaro Ron MDADM AUTHOR: Osbaldo Stanley DO R2REPT SERVICE DT/TIME: 08/07/23914* ALL edits or amendments must be made on the electronic/computer document * StanleyOsbaldo 08/07/2315:General InformationProblem List/A P: 1. NSTEMI (non-ST elevated myocardial infarction) 2. Elevated troponin I level 3. 2nd degree AV block 4. CAD (coronary artery disease) 5. HTN (hypertension) 6. 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 Initial troponin at this facility [...] home, pending cardiac clearanceNOK: Elizabeth Hart (daughter): [phone] Med Rec Med RecDischarge meds:Stop taking the [...] no edemaMusculoskeletal: normal inspection, painless range of motionNeuro/ROLL TRUCKER: alert, oriented X 3, CNII-XII intactPsychiatry: normal affect, normal judgment/insight, normal mood, not homicidal, not suicidal Discharge Instructions PCPPCP follow-up:PCP: DOES_NOT KNOW Discharge to: Home/Self CareAdditional Discharge Routines: PCP Follow-Up, [employer] Follow-UpDiet: Resume Home Diet/FeedsActivity: As Tolerated Follow-up [...] (minutes): 32 at 1551 at 1646 RPT #:[id number] OF REPORTDSDischarge fgqdgim1536-38-11X47:15:00Z.ZGHQ98170928-5923JPAg ailable for patient fnnfFFQIQVSRDXJPJR1758-45-43F79:51:34 [facility] 2023-08-07 07:21:00 [id number] /7mp7Knx+z16ae7xGqBBGorox9TuM hdRpQc98TsmVfZ230m2lHSe+FvL2563-63-68U44:21:00 [facility]Card[facility] Progress NoteREPORT#:[id number] REPORT STATUS: SignedREPORT INITIALIZATION DATE:08/07/23 TIME: 720 PATIENT: CHARLIE HART UNIT #: [id number]#: [id number] [facility]GE: 88 SEX: M ATTEND: [...] LE assessment: no edemaMusculoskeletal: full range of motionNeuro/ROLL TRUCKER: alert, oriented X 3, CN II-XII intactSkin: [...] f/u with Dr. Celis today. at 0741 RPT #:[id number] OF REPORTPRProgress qlyz7374-28-96F39:21:00Z.HHSF74469866-5536DIWpuby able for patient xviqCBTNLFEGSTTUWS8616-77-66P54:41:57 [facility] 2023-08-07 05:15:00 K06750924275lVE7Gh0V yabLdvm5XDHan+fieXfXvrbGSWetL v5AjMiyPcvoSBZR1YzdNP7/jdgD8926-04-44N95:15:56734 2-0012 [place] [address] PATIENT NAME: CHARLIE HART ADMIT DATE: 08/05/23ACCOUNT NO: [id number] ROOM NO: [facility] AGE: 88 REPORT TYPE: ELECTROCARDIOGRAM SEX: M ADMITTING PHYSICIAN:Alvaro Ron MD ATTENDING PHYSICIAN:Alvaro Ron MD Order:[id number] Reason : CAD Test Date/Time Stamp:FriAug 07 [...] By: Self Referred Confirmed by:DEYVI CELIS at 7193 PATIENT NAME: CHARLIE HART .[id number] AVAvailable for patient vkooKPUBPHJAWZRLYD6177-33-85C10:27:12 [facility] 2023-08-06 17:28:00 [id number] CK4AF4tWRpoUJPVYKKTNbqm/WpOZI tgoG9oYF3uDFlK5o4DPR8mYzbXF4374-86-29U74:28:86662 0-[address] [address] PATIENT NAME: CHARLIE HART ADMIT DATE: 08/05/23ACCOUNT NO: [id number] ROOM NO: Z.363 AGE: 88 REPORT TYPE: ECHOCARDIOGRAM SEX: M ADMITTING PHYSICIAN:Alvaro Ron MD ATTENDING PHYSICIAN:Alvaro Ron MD *[place], [place] [address]Phone Transthoracic Echocardiogram Patient: Charlie HartStudy Date: 4BP:URN: [id number]: [id number]#: [id number]: 1935ge: 88Gender: MHeight: 68 in / 172.7 cmWeight: 165 lb / 74.8 kgBMI/BSA: 25.1 kg/m 2 / 1.9 m 2*Ordering Physician: * Kyree Noble MD *Interpreting Physician: * Deyvi Celis MD*Community Action Worker: * Jose D Salvador Indications: CAD. Study data: Transthoracic echocardiogram. Procedure: A transthoracicechocardiogram was performed. Images were obtained using a Seratis cardiacultrasound machine. Image quality was adequate. M-mode, complete 2D, completespectral Doppler, and color Doppler. Location: [facility]. Patient status:Inpatient. Patient room number: 363. Study [...] 2 mm Hg --------- 3 PATIENT NAME: LESCHARLIE Left atrium Value Ref 12/14/2021 AP dim, [...] at 1728 PATIENT NAME: CHARLIE HART :28:0 0Z.[id number] for patient kyzwACUHNYCZFKUTGW7422-80-07V02:28:30 [facility] 2023-08-06 10:46:00 [id number]+uNomKCl yIdusHwE+IuJr/szQbmJWZy012xhU 5ZbqDZrU2/2kNLQbyadkyzrxKMP5344-25-06L36:46:00 [facility] ([facility]ospital[facility] Progress NoteREPORT#:[id number] REPORT STATUS: SignedREPORT INITIALIZATION DATE:08/06/23 TIME: 1045 PATIENT: CHARLIE HART UNIT #: [id number]#: [id number] [facility] AGE: 88 SEX: M ATTEND: Alvaro Ron AUTHOR: Osbaldo Stanley DO R2REPT SERVICE DT/TIME: 08/06/23 1046* ALL edits or amendments must be made on the electronic/computer document * Osbaldo Stanley 08/06/23 1046:SubjectiveChief complaint:Chest pain, NSTEMIHPI:88M with PMHx of 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 Per the ED physician, pt [...] 0030 82 15 94/52 93 08/06 0003 36.4 08/05 2331 97 17 90/50 94 08/05 2200 112 20 100/65 94 08/05 2144 113 34 92/63 96 08/05 2140 109 21 91/62 98 08/05 1941 36.8 82 14 / 74.1 96 24 hour I O ending [...] no edemaMusculoskeletal: normal inspection, painless range of motionNeuro/ROLL TRUCKER: alert, oriented X 3, CNII-XII intactPsychiatry: normal affect, normal judgment/insight, normal mood, not homicidal, not suicidal ResultsFindings/Data:Laboratory Tests 08/06 Chemistry Sodium (137 - 145 MMOL/L) 138 [...] % (Auto) (14 - 44 %) 20.2 Dickenson % (Auto) (4 - 13 %) 10.5 Eos % (Auto) (0 - 6 %) 2.7 Baso % (Auto) (0 - 2 %) 0.5 Neut # (Auto) (2.0 - 7.6 K/mm3) 4.87 Lymph # (Auto) (1.0 - 3.8 K/mm3) 1.50 Dickenson # (Auto) (0.1 - 0.8 K/mm3) 0.78 [...] home, pending cardiac clearanceNOK: Elizabeth Hart (daughter): [phone] Quality: Gen [facility] Crit Care VTE ProphylaxisVTE prophylaxis initiated: yes [...] and plan. at 1538 at 1939 RPT #:[id number] OF REPORTPRProgress kbye1005-98-34S68:46:00Z.XVJN22414416-4230RYRxvbs able for patient qdrvGVNYSOEOLTZXHV4294-24-16Z83:39:35 [facility] 2023-08-06 09:06:00 [id number] YMfrfIG2hhzm1b4+04yEHD2OJR/UC sUi5A6kK97Y9cyKzaRrT3/mXMVk4971-61-71S51:06:01361 0-[address] [address] PATIENT NAME: CHARLIE HART ADMIT DATE: 08/05/23ACCOUNT NO: [id number] ROOM NO: [facility] AGE: 88 REPORT TYPE: ELECTROCARDIOGRAM SEX: M ADMITTING PHYSICIAN:Alvaro Ron MD ATTENDING PHYSICIAN:Alvaro Ron MD Order:[id number] Reason : CAD Test Date/Time Stamp:FriAug 06 [...] CELIS at 1533 PATIENT NAME: CHARLIE HART .[id number] AVAvailable for patient ksfrNMQKZJEGPWAMGQ0889-51-83F60:33:54 [facility] 2023-08-06 06:07:00 [id number] jJiuWQQH5GDCNrye6TYGWDguT/sgJ Lno7iPr25bIUT32pTUxF6bmtzTQ0108-60-82V61:07:00 [facility] ([facility])Cardiology Progress NoteREPORT#:[id number] REPORT STATUS: SignedREPORT INITIALIZATION DATE:08/06/23 TIME: 06 PATIENT: CHARLIE HART UNIT #: [id number]#: [id number] ROOM/BED: [facility]-ADOB: [birth year] AGE: 88 SEX: M ATTEND: Alvaro Ron Ada MDADM AUTHOR: Kyree Noble MDREPT SERVICE DT/TIME: [...] LE assessment: no edemaMusculoskeletal: full range of motionNeuro/ROLL TRUCKER: alert, oriented X 3, CN II-XII intactSkin: dry, intactPsychiatry: normal affect, normal judgment/insight, normal mood ResultsFindings/Data:Laboratory Tests 08/06 08/06 08/05 08/05 0045 0045 1128 0932 Chemistry Sodium (137 - [...] - 5.0 G/DL) 4.3 Laboratory Tests 08/06 08/05 0045 0931 Coagulation INR (0.86 - 1.14) 1.3 [...] (Auto) (14 - 44 %) 20.2 28.7 Dickenson % (Auto) (4 - 13 %) 10.5 11.1 Eos % (Auto) (0 - 6 %) 2.7 4.6 Baso % (Auto) (0 - 2 %) 0.5 1.0 Neut # (Auto) (2.0 - 7.6 K/mm3) 4.87 3.67 Lymph # (Auto) (1.0 - 3.8 K/mm3) 1.50 1.94 Dickenson # (Auto) (0.1 - 0.8 K/mm3) 0.78 [...] Report Impression - Status: SIGNED Entered: 08/05/2023 100 IMPRESSION:Mild bibasilar atelectasis.Impression By: GaneshPR7 - Carito Sosa [facility] SCAN - CT HEAD/BRAIN W/O CONT [...] current medical rx Review echo. at 0741 [facility] #:[id number] OF REPORTPRProgress xdnv4393-81-13L05:07:00Z.DCLG85656144-6705KFAzhbg able for patient woejHCLGWDKBSHXORO0806-21-43U15:41:56 [facility] 2023-08-05 14:36:00 [id number] aCgW7OI4KRYfVw5tvffHi/7EwEoro iWYcaaVw/bpS2tJIccOYRkmDaua5095-34-33T17:36:38696 9-0143 [place] [address] PATIENT NAME: CHARLIE HART ADMIT DATE: 08/05/23ACCOUNT NO: [id number] ROOM NO: [facility] AGE: 88 REPORT TYPE: CONSULTATION REPORT SEX: [...] call EMS and drove himself to the [facility] Emergency Room. Currently, he is chest [...] Dictated: 08/05/2023 14:36:53Date Transcribed: 08/05/2023 19:37:25ISAIAH/Pablo #: [id number] ID: [id number] and Edited by Kyree Noble MD On 08/08/23 10:09:18 AM at 1014 PATIENT NAME: CHARLIE HART :37:00Z.FL [id number] for patient meavDAAVGPSUFNURWI0088-80-90G25:16:29 [facility] 2023-08-05 08:23:00 [id number] phyj87X9E5A9+Ueq8rW23iIUs1Z5/ NFnWDt9I/zpJeB6CKqlR70ECkZh6053-56-12M85:23:00 [facility] ([facility])Hospitalist History PhysicalREPORT#:[id number] REPORT STATUS: SignedREPORT INITIALIZATION DATE:08/05/23 TIME: 822 PATIENT: CHARLIE HART UNIT #: [id number]#: [id number] [address] AGE: 88 SEX: M ATTEND: Alvaro Ron MDA AUTHOR: Clinton Moreau MD R1REPT SERVICE DT/TIME: 08/05/23822* ALL edits or amendments must be made on the electronic/computer document * See AddendumClinton Moreau 08/05/23822:History of Present Illness HPIChief complaint:Chest pain, NSTEMIPCP:PCP: DOES_NOT KNOW HPI:88M with PMHx of 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 Per the ED physician, pt received full dose ASA and heparin at OSH but lab values, EKG and other data are not visible on this EMR. No other history from able to be obtained from events at OSH. On chart review, pt was seen in 11/2021 for symptomatic bradycardia and rec'd pacemaker due to 2nd degree AV block. Microfilm Camera Operator at the time was Dr. Celis. [...] old or older: Former SmokerDate last smoked: 08/17/71Packs per day: 2Years smoked: 10 Medication/Allergy-Vaccine HxMedications:Home [...] no edemaMusculoskeletal: normal inspection, painless range of motionNeuro/ROLL TRUCKER: alert, oriented X 3, CNII-XII intactPsychiatry: normal affect, normal judgment/insight, normal mood, not homicidal, not suicidal ResultsFindings/Data:Laboratory Tests: 08/05 642 Hematology WBC (3.8 - 9.8 K/MM3) 6.8 [...] % (Auto) (14 - 44 %) 28.7 Dickenson % (Auto) (4 - 13 %) 11.1 Eos % (Auto) (0 - 6 %) 4.6 Baso % (Auto) (0 - 2 %) 1.0 Neut # (Auto) (2.0 - 7.6 K/mm3) 3.67 Lymph # (Auto) (1.0 - 3.8 K/mm3) 1.94 Dickenson # (Auto) (0.1 - 0.8 K/mm3) 0.75 [...] LovenoxDispo: Pending cardiology workupNOK: Elizabeth Hart (daughter): [phone] 1119- aPTT > 400 with troponin of [...] OlderDiscussion included: code status Attestations Teaching Physician Uuetfiihykt8dn visit w/ resident:I was present with the [...] him w no defecit at 1901 RPT #:[id number] OF REPORTHPHistory and physical zfbzovmyope1430-73-88A07:23:00Z.DGHK95602149-5968 AVAvailable for patient swqhSOGCDOHSBCOLXX1618-55-50J46:40:58 [facility] 2023-08-05 05:59:00 [id number]+ TIgXmAo8b3GNisj4TLoB9kmbM+pJx fRyu3llri3V0ouZmXclIF4j2EKy5765-84-00U11:59:00 [facility] ([facility])EMERGENCY PROVIDER REPORTREPORT#:[id number] REPORT STATUS: SignedDATE:08/05/23 TIME: 05 PATIENT: CHARLIE HART UNIT #: [id number]#: [id number] ROOM/BED:AGE: 88 SEX: M PCP PHYS: No Primary or Family PhysicianSERVICE DT: AUTHOR: Alan Scott MD LOCATION: [facility] * ALL edits or amendments [...] B/P Mean 90 08/050 Temp 37.1 08/05 045 Pulse 101 08/05 0450 Resp 18 08/05 [...] Documented: Result Date Time Pulse Ox 97 08/050 B/P 116/78 08/05 449 B/P Mean 90 08/05 449 Temp 37.1 08/05 449 Pulse 101 08/050 Resp 18 08/05 449 O2 Delivery Room air 08/05 517 Last Documented: Result Date Time Pulse Ox 97 08/05 517 B/P 119/67 08/05 517 B/P Mean 84 08/05 517 O2 Delivery Room air 08/05 517 Pulse 61 08/05 517 Resp 18 08/05 517 Temp 37.1 08/05 449 All vital signs available at the time of this entry have been reviewed. Clinical ImpressionClinical ImpressionPrimary Impression: Elevated troponin I level Disposition DecisionHospitalize Hosp Physician Name Eufemia Ascencio MD )( Accepts Hospitalization Yes )( Reason for HospitalizationTROPONIN ELEVATED )( Accepted Time 601 )( Accepted Date 08/05/23 Call Information will see patient at 0602RPT #:[id number] OF REPORTEDEmergency department pdjokf6664-31-77Y33:59:00Z.ASOJ87275736-2971YDGmz ilable for patient ookhWQWIOCOMHFZNAH9346-05-16M91:02:42 [facility] 2021-12-16 10:12:00 [id number] 0RQpoSS6xO3yQU3PNaPWFnoQA1cjo Adg9MiW87fPR+aVh8Sh6Q4qkGbxgbf6355-52-94W05:12:00 [facility] ([facility])Cardiology Progress NoteREPORT#:[id number] REPORT STATUS: SignedDATE:12/16/21 TIME: 101 PATIENT: CHARLIE HART UNIT #: [id number]#: [id number] [facility]GE: 86 SEX: M ATTEND: Alvaro Ron AUTHOR: Kyree Noble MD * ALL edits or amendments must be made on the electronic/computer document * SubjectiveChief complaint:Syncope, 2:1 AV Block, BradycardiaPatient reports:No: chest pain, palpitations, shortness of breath. Objective GeneralVS/I O:24 hour I O ending at 0700: 12/16 0700 12/15 1899 Intake Total 100 Output Total Balance 100 Intake, Oral 100 Number 0 Bowel Movements Number Voids 2 Vital Signs: Date Time Temp Pulse Resp B/P B/P Pulse O2 O2 Flow FiO2 Mean Ox Delivery Rate 12/16 0926 79 20 97 12/16 0923 80 23 118/54 77 97 12/16 0900 [...] 12/15 2100 74 22 128/60 85 98 12/15 2026 98 Nasal 2 28 cannula 12/15 2012 98.4 12/15 2008 79 29 122/64 88 98 12/15 1932 [...] edema, 2+ peripheral pulsesMusculoskeletal: full range of motionNeuro/ROLL TRUCKER: alert, oriented X 3, CN II-XII intact, no motor deficitsSkin: dry, intactPsychiatry: normal affect, normal judgment/insight, normal mood, no hallucinations ResultsFindings/Data:Laboratory Tests 12/16 12/16 12/15 12/15 0762 0557 2011 1600 Chemistry Sodium (137 - 145 [...] (Auto) (14 - 44 %) 13.9 L Dickenson % (Auto) (4 - 13 %) 10.4 Eos % (Auto) (0 - 6 %) 2.2 Baso % (Auto) (0 - 2 %) 0.2 Neut # (Auto) (2.0 - 7.6 K/mm3) 5.86 Lymph # (Auto) (1.0 - 3.8 K/mm3) 1.12 Dickenson # (Auto) (0.1 - 0.8 K/mm3) 0.84 [...] 1. Cardiomegaly with mild vascular congestion.Impression By: GaneshRXBabs - Aquiles Powell MDRADIOLOGY - XR CHEST 1V 12/16 0608 Report Impression - Status: SIGNED Entered: 12/16/2021 0819 IMPRESSION: Slight improvement in mild CHF. 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 Frantz PPM - normal function. Symptomatic bradycardia CAD-stable -mild MR-mild PSVT Hx of LBBB HTN HLP PLAN: d/c home f/u one week. at 1153 RPT #:[id number] OF REPORTPRProgress jsgu3149-59-79M70:12:00Z.KSXC89068166-4966WLQzsqa able for patient ulfcWTPCYUAZZYUJAP6537-00-20Z72:54:00 [facility] 2021-12-16 08:16:00 G27469-15489579NSj4w I5BcoihAKHMewCqLEkPXKBXVv0wAK DSngr+ok0Pgay4drlWBjxuJuH9YZr50179-32-07G44:16:00 3615-[address] [address] PATIENT NAME: CHARLIE HART ADMIT DATE: 12/13/21ACCOUNT NO: [id number] ROOM NO: [facility] AGE: 86 REPORT TYPE: ELECTROCARDIOGRAM SEX: M ADMITTING PHYSICIAN:Alvaro Ron MD ATTENDING PHYSICIAN:Alvaro Ron MD Order:[id number] Reason : S/P PPI Test Date/Time Stamp:FriDec [...] CELIS at 0918 PATIENT NAME: CHARLIE HART .[id number] AVAvailable for patient vwieUGVULXJSLSHCFO0730-17-10Y37:18:24 [facility] 2021-12-16 08:16:00 I20664-59018284AYh5+ IGgwcwdKxdkJJU8wpXQSKcZI3Ev5J hIIyxGSX0hYIcbUiwBHLvRBXNBqBZ52261-98-19U35:16:00 0860-6857 [place] 7[address]3682 PATIENT NAME: CHARLIE HART ADMIT DATE: 12/13/21ACCOUNT NO: [id number] ROOM NO: [facility] AGE: 86 REPORT TYPE: ELECTROCARDIOGRAM SEX: M ADMITTING PHYSICIAN:Alvaro Ron MD ATTENDING PHYSICIAN:Alvaro Ron MD Order:[id number] Reason : S/P PPI Test Date/Time Stamp:FriDec [...] CELIS at 1445 PATIENT NAME: CHARLIE HART .[id number] AVAvailable for patient lkauENEXIPXOAPAGXH6569-55-30G95:46:12 [facility] 2021-12-16 07:41:00 [id number]+2 pxSWrNsGfnZL3mqAXtnUTAvwD2i9g +RtdP+oxFUGFkcW+TFhAXwZDd0vXTC7822-38-67T67:41:00 [facility] ([facility]ospital[facility] Discharge SummaryREPORT#:[id number] REPORT STATUS: SignedDATE:12/16/21 TIME: 740 PATIENT: CHARLIE HART UNIT #: [id number]#: [id number] [facility] AGE: 86 SEX: M ATTEND: Alvaro Ron [facility] AUTHOR: Edgard Birmingham MD R2 * [...] in several days prior to admission. His covered button maker, Dr. Celis was consulted. Echocardiogram was normal. [...] Documented: Result Date Time Pulse Ox 96 12/16 06 B/P 141/74 12/17 623 B/P Mean 99 12/16 06 Pulse 73 12/16 0624 Resp 20 12/16 06 Temp 36.8 12/16 0416 FiO2 28 12/15 [...] all, no clubbing, no cyanosis, 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: normal inspection, no muscle spasmNeuro/ROLL TRUCKER: alert, oriented X 3, no motor deficitsSkin: [...] 1700 Coagulation INR (0.86 - 1.14) 1.1 05/21 0510 APTT (26.2 - 35.4 SECONDS) 25.2 L 05/21 0510 PT Patient/Control Mix (9.4 - 12.7 SECONDS) 12.6 05/21 0510 Hematology WBC (3.8 - 9.8 K/MM3) 7.7 05/21 0510 RBC (3.95 - 5.67 M/MM3) 3.69 L 05/21 0510 Hgb (12.4 - 16.7 G/DL) 13.0 05/21 0510 Hct (35.9 - 49.5 %) 40.3 05/21 0510 MCV (81.7 - 96.1 fL) 109 H 05/21 0510 MCH (27.6 - 33.2 pg) 35.2 H 05/21 0510 MCHC (32.9 - 35.5 %) 32.3 L 05/21 0510 RDW (12.1 - 15.2 %) 12.3 05/21 0510 Plt Count (129 - 368 K/MM3) 165 05/21 0510 MPV (7.4 - 10.4 fl) 9.3 05/21 0510 Neut % (Auto) (43 - 75 %) 64.1 05/21 0510 Lymph % (Auto) (14 - 44 %) 20.5 05/21 0510 Dickenson % (Auto) (4 - 13 %) 11.4 05/21 0510 Eos % (Auto) (0 - 6 %) 3.0 05/21 0510 Baso % (Auto) (0 - 2 %) 0.7 05/21 0510 Neut # (Auto) (2.0 - 7.6 K/mm3) 4.92 05/21 0510 Lymph # (Auto) (1.0 - 3.8 K/mm3) 1.57 05/21 0510 Dickenson # (Auto) (0.1 - 0.8 K/mm3) 0.87 H 05/21 0510 Eos # (Auto) (0.0 - 0.2 K/mm3) 0.23 H 05/21 0510 Baso # (Auto) (0.0 - 0.2 K/mm3) 0.05 05/21 0510 Immature Gran % (0.0 - 2.0 %) 0.3 05/21 0510 Nucleated RBC % (0 - 1.0 %) 0.0 05/21 0510 Nucleated RBCs # (Man) (0.0 - [...] to: Home/Self CareAdditional Discharge Routines: PCP Follow-Up, [employer] Follow-UpDiet: Resume Home Diet/FeedsActivity: Resume Normal Activity, [...] post PM. ANANTH Noble, site is ok [facility] . Interrogation done. Called and talked to at pt request at 1525 at 1640 RPT #:[id number] OF REPORTDSDischarge yemtvbg3040-77-12B98:41:00Z.VRUL12445725-0084LELk ailable for patient sifyDHNXDLIZOUQEGA8961-64-58Z48:25:28 [facility] 2021-12-15 12:52:00 [id number] N7IcXtqfTx7RcxW6TkSPeLuXRTBLr q88katNFmkwlb8BzTBkEZl9y7hi7QO7908-51-23N84:52:00 [id number] [address] PATIENT NAME: CHARLIE HART ADMIT DATE: 12/13/21ACCOUNT NO: [id number] ROOM NO: [facility] AGE: 86 REPORT TYPE: ELECTROCARDIOGRAM SEX: M ADMITTING PHYSICIAN:Alvaro Ron MD ATTENDING PHYSICIAN:Alvaro Ron MD Order:[id number] Reason : AV BLOCK Test Date/Time Stamp:FriDec 15 2021 12:52:31Blood Pressure : / mmHGVent. [...] CELIS at 1656 PATIENT NAME: CHARLIE HART .[id number] AVAvailable for patient dftcYGYOXOQWQSABJW6068-59-49J09:56:47 [facility] 2021-12-15 12:52:00 [id number] cuueSYNXEIQb3XqXT7pNSPber3afc XS6iQ+37e+7BMlH1Xo72sbbj0fn1dP2099-67-85P02:52:00 [id number] [address] PATIENT NAME: CHARLIE HART ADMIT DATE: 12/13/21ACCOUNT NO: [id number] ROOM NO: Z.350 AGE: 86 REPORT TYPE: ELECTROCARDIOGRAM SEX: M ADMITTING PHYSICIAN:Alvaro Ron MD ATTENDING PHYSICIAN:Alvaro Ron MD Order:[id number] Reason : AV BLOCK Test Date/Time Stamp:FriDec 15 2021 12:52:31Blood Pressure : / mmHGVent. [...] CELIS at 1446 PATIENT NAME: CHARLIE HART .[id number] AVAvailable for patient dizoAQWHRBDABZEVVV1691-10-82Q18:46:22 [facility] 2021-12-15 12:19:00 [id number] +/+qEZ1j5DiQOGtELQ033JdiQ+cIu FUV2+OsIRmhYR56p2z7e02kHcRSFJo8797-44-83B20:19:00 [id number] [address] PATIENT NAME: CHARLIE HART ADMIT DATE: 12/13/21ACCOUNT NO: [id number] ROOM NO: Z.350 AGE: 86 REPORT TYPE: ELECTROCARDIOGRAM SEX: M ADMITTING PHYSICIAN:Alvaro Ron MD ATTENDING PHYSICIAN:Alvaro Ron MD Order:[id number] Reason : AV Block Test Date/Time Stamp:Sat Dec 15 2021 12:19:57Blood Pressure : / mmHGVent. [...] By: Self Referred Confirmed by:DEYVI CELIS at 7257 PATIENT NAME: CHARLIE HART .[id number] AVAvailable for patient xjrbNAWDEXHWNFJWIX6421-33-90I23:55:27 [facility] 2021-12-15 12:19:00 [id number] oNfXj6RRqqrFfgdYK4jEfrkSui0Qj mD3OHWfQUXzCQLLJnol7UAOZxY7UvA7530-97-22O80:19:00 [id number] [address] PATIENT NAME: CHARLIE HART ADMIT DATE: 12/13/21ACCOUNT NO: [id number] ROOM NO: Z350 AGE: 86 REPORT TYPE: ELECTROCARDIOGRAM SEX: M ADMITTING PHYSICIAN:Alvaro Ron MD ATTENDING PHYSICIAN:Alvaro Ron MD Order:[id number] Reason : AV Block Test Date/Time Stamp:FriDec [...] CELIS at 1446 PATIENT NAME: CHARLIE HART .[id number] AVAvailable for patient jufaKEVKBMQPYASUXO3987-39-99N82:46:33 [facility] 2021-12-15 12:16:00 [id number] +7dpOwbX8dP2QO7ZiYGsI4wftXKoa xTTFMvfnLjJlploH6T14PW5AUR3Mk44006-79-45R55:16:00 3921-1596 [place] [address] PATIENT NAME: CHARLIE HART ADMIT DATE: 12/13/21ACCOUNT NO: [id number] ROOM NO: [facility] AGE: 86 REPORT TYPE: ELECTROCARDIOGRAM SEX: M ADMITTING PHYSICIAN:Alvaro Ron MD ATTENDING PHYSICIAN:Alvaro Ron MD Order:[id number] Reason : S/P PPI Test Date/Time Stamp:FriDec [...] CELIS at 1654 PATIENT NAME: CHARLIE HART .[id number] AVAvailable for patient potlCYMBDEYEWWBECX5203-70-63G61:55:07 [facility] 2021-12-15 12:16:00 [id number] fcmq7Xa/aLLIam3c6W+lq9PAwrKk9 4/v8ZgVOI2o5AqZwGYtQ8xK0/qtZB92396-83-03I70:16:00 5160-7816 [place] [address] PATIENT NAME: CHARLIE HART ADMIT DATE: 12/13/21ACCOUNT NO: [id number] ROOM NO: Z.350 AGE: 86 REPORT TYPE: ELECTROCARDIOGRAM SEX: M ADMITTING PHYSICIAN:Alvaro Ron MD ATTENDING PHYSICIAN:Alvaro Ron MD Order:[id number] Reason : S/P PPI Test Date/Time Stamp:FriDec [...] By: Self Referred Confirmed by:DEYVI CELIS at 144 PATIENT NAME: CHARLIE HART .[id number] AVAvailable for patient pdpcPTXFKDILUZIONQ1044-56-85J53:46:33 [facility] 2021-12-15 11:40:00 [id number]/c9f uinomod6YzMuOR/SfliTIHx+nKcLf bcmSw6WJ5wDYCruDogrpYmYCJ8Txd+8259-14-14Q45:40:00 9752-[address] [address] PATIENT NAME: CHARLIE HART ADMIT DATE: 12/13/21ACCOUNT NO: [id number] ROOM NO: [facility] AGE: 86 REPORT TYPE: CARDIAC CATHETERIZATION REPORT SEX: M ADMITTING PHYSICIAN:Alvaro Ron MD ATTENDING PHYSICIAN:Alvaro Ron MD PROCEDURE DATE: 12/15/2021 CR[employer] MEAT PROCESSOR: Deyvi Celis MD TITLE OF THE PROCEDURE: [...] MD WT: CATH:ASHU/DANIEL/NTSDD: 12/15/2021 11:40:13DT: 12/15/2021 11:44:31Conf#: [id number]/DID#: [id number] Authenticated by Dyevi Celis MD On 12/15/2021 11:54:46 AM at 1154 PATIENT NAME: CHARLIE HART flcg7154-25-14A13:44:00Z.JMI73209668-2425HHXixrxv ble for patient cltfUBIIERFMPCREFH8274-11-31E71:55:16 [facility] 2021-12-15 08:47:00 [id number]+YJL JgKEgeiVFsneyX/u//gLSbm6CxhO+ VIspzPSvtkDU1WDaXchCf+Qw3JGK5a0873-49-79J86:47:00 [facility] ([facility]ospitalist Progress NoteREPORT#:[id number] REPORT STATUS: SignedDATE:12/15/21 TIME: 0847 PATIENT: CHARLIE HART UNIT #: [id number]#: [id number] ROOM/BED: [facility]-ADOB: [birth year] AGE: 86 SEX: M ATTEND: Alvaro Ron MDA AUTHOR: Allen Rausch MD R1 * ALL [...] 107/50 72 97 12/14 2200 2 12/14 2120 25 19 98 12/141 27 19 115/58 84 100 12/14 2000 [...] all, no clubbing, no cyanosis, 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: normal inspection, no muscle spasmNeuro/ROLL TRUCKER: alert, oriented X 3, no motor deficitsSkin: [...] % (Auto) (14 - 44 %) 20.5 Dickenson % (Auto) (4 - 13 %) 11.4 Eos % (Auto) (0 - 6 %) 3.0 Baso % (Auto) (0 - 2 %) 0.7 Neut # (Auto) (2.0 - 7.6 K/mm3) 4.92 Lymph # (Auto) (1.0 - 3.8 K/mm3) 1.57 Dickenson # (Auto) (0.1 - 0.8 K/mm3) 0.87 [...] post PM at 1311 at 1604 RPT #:[id number] OF REPORTPRProgress dggr3418-13-92R98:47:00Z.QIYB51897307-7500OQYrlhq able for patient epmzMQGHXSZJZRIRCP9708-85-27Q58:12:09 [facility] 2021-12-15 08:08:00 [id number] 1KwVQLCHSx3aWtxqEJdPfC+DobKob hrVgNgQk9jMNv6hgpVurLn7/moWUo73915-89-44D65:08:00 5287-[address] [address] PATIENT NAME: CHARLIE HART ADMIT DATE: 12/13/21ACCOUNT NO: [id number] ROOM NO: Z.350 AGE: 86 REPORT TYPE: ELECTROCARDIOGRAM SEX: M ADMITTING PHYSICIAN:Alvaro Ron MD ATTENDING PHYSICIAN:Alvaro Ron MD Order:[id number] Reason : AV Block Test Date/Time Stamp:Sat Dec 15 2021 08:08:25Blood Pressure : / mmHGVent. [...] CELIS at 1025 PATIENT NAME: CHARLIE HART .[id number] AVAvailable for patient flesLNUBNUKYREJVGS9151-47-60Z40:25:21 [facility] 2021-12-15 08:08:00 [id number] +i8fUizuimDvtaQi3Po8Xcr3TzGG6 81LXZpGCvhKVRjbygM+iUeeLyBHtbR3989-06-86T85:08:00 2618-[address] [address] PATIENT NAME: CHARLIE HART ADMIT DATE: 12/13/21ACCOUNT NO: [id number] ROOM NO: Z.350 AGE: 86 REPORT TYPE: ELECTROCARDIOGRAM SEX: M ADMITTING PHYSICIAN:Alvaro Ron MD ATTENDING PHYSICIAN:Alvaro Ron MD Order:[id number] Reason : AV Block Test Date/Time Stamp:FriDec [...] CELIS at 1446 PATIENT NAME: CHARLIE HART .[id number] AVAvailable for patient zpykCYWTGZFLXCFTXC4459-16-06H47:46:53 [facility] 2021-12-15 05:30:00 [id number] XSGdKtX9m4zhXm+Hyt2yumDeG9ScB ZiqDZ4sh+w5lsYEZs05foMmxCqIEGf4750-51-95M85:30:00 [facility]Card[facility] Progress NoteREPORT#:[id number] REPORT STATUS: SignedDATE:12/15/21 TIME: 0530 PATIENT: CHARLIE HART UNIT #: [id number]#: [id number] [facility]GE: 86 SEX: M ATTEND: Alvaro Ron [facility] AUTHOR: Deyvi Celis MD * ALL [...] 12/14 2000 27 20 105/55 76 97 12/14 1956 27 20 112/54 78 92 12/14 195 98.4 12/14 1921 29 26 89 12/14 [...] edema, 2+ peripheral pulsesMusculoskeletal: full range of motionNeuro/ROLL TRUCKER: alert, oriented X 3, CN II-XII intact, [...] % (Auto) (14 - 44 %) 20.5 Dickenson % (Auto) (4 - 13 %) 11.4 Eos % (Auto) (0 - 6 %) 3.0 Baso % (Auto) (0 - 2 %) 0.7 Neut # (Auto) (2.0 - 7.6 K/mm3) 4.92 Lymph # (Auto) (1.0 - 3.8 K/mm3) 1.57 Dickenson # (Auto) (0.1 - 0.8 K/mm3) 0.87 [...] pt willing to proceed. at 0753 RPT #:[id number] OF REPORTPRProgress wtdj7104-40-66K77:30:00Z.TAOW45251355-0204IWElopu able for patient zbtpZROIQJZXZOOUZU7311-09-65G83:53:54 [facility] 2021-12-14 13:44:00 [id number] qYWayOJTLgFMPKb0FhrcBnkAyAMBY 1XZnFkrpLUs2Y5PLq6Zalav6wCjMMv6732-72-21E04:44:00 8595-6655 [place] [address] PATIENT NAME: CHARLIE HART ADMIT DATE: 12/13/21ACCOUNT NO: [id number] ROOM NO: Z.CORY AGE: 86 REPORT TYPE: ECHOCARDIOGRAM SEX: M ADMITTING PHYSICIAN:Alvaro Ron MD ATTENDING PHYSICIAN:Alvaro Ron MD *[facility]*[address] [place], [place] [address]Opkzc Transthoracic Echocardiogram Patient: Charlie Hart Date: 12/14/2021 BP: 163 / 69 Location: [facility]: [id number] : 1935 Age: 86 Height: 68 in / 172.7 cmAccession#: [id number] Gender: M Weight: 190 lb / 86.4 kgBMI/BSA: 28.9 kg/m 2 / 2.06 m 2 *Ordering Physician: * Deyvi Celis MD *Interpreting Physician: * Deyvi Celis MD*Community Action Worker: * Carmina Peralta RVT Indications: Hypertension. Study data: Transthoracic echocardiogram. Procedure: Transthoracicechocardiography was performed. Images were obtained using a Seratis cardiacultrasound machine. Image quality was suboptimal. M-mode, [...] cm 2 --------- Pulmonic valve Value Ref [place] v, ED 0.34 m/sec --------- Tricuspid valve [...] at 1344 PATIENT NAME: CHARLIE HART :44:0 0Z.HJK40902102-0240TJXqgffibsd for patient rasvXXYZFCBURJQQXY3109-69-05J42:44:31 [facility] 2021-12-14 08:13:00 [id number] 4Dl6zePGqnMbS0orAy88h2Ya36iJ8 q6gJQLs4uCNIidosT6ZjhG34Ex8fRz0952-64-33J16:13:00 [facility] ([facility])Hospitalist Progress NoteREPORT#:[id number] REPORT STATUS: SignedDATE:12/14/21 TIME: 812 PATIENT: CHARLIE HART UNIT #: [id number]#: [id number] ROOM/BED: [facility]-1DOB: [birth year] AGE: 86 SEX: M ATTEND: Alvaro [...] all, no clubbing, no cyanosis, 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 . . agree with the resident's findings and plan. at 1633 at 1724 RPT #:[id number] OF REPORTPRProgress vevs9140-54-65V79:13:00Z.GSNH05760020-4715XJIksyf able for patient lvojCWVWHVTBDUABUL9103-38-52T71:34:06 [facility] 2021-12-14 06:39:00 [id number] 1GmanMu6dJs+tldGXOkRY/gha3P9i P5f4QPYoppxduoIfShaIfoXpvrI82F9790-61-51O48:39:00 [facility] ([facility]Cardiology Progress NoteREPORT#:[id number] REPORT STATUS: SignedDATE:12/14/21 TIME: 06 PATIENT: CHARLIE HART UNIT #: [id number]#: [id number] [address] AGE: 86 SEX: M ATTEND: Alvaro Ron MDADM AUTHOR: Kyree Noble MD * ALL edits [...] 06 30 18 172/68 98 2 12/14 0620 [...] LE assessment: no edemaMusculoskeletal: full range of motionNeuro/ROLL TRUCKER: alert, oriented X 3, CN II-XII intactSkin: [...] % (Auto) (14 - 44 %) 26.6 Dickenson % (Auto) (4 - 13 %) 9.8 Eos % (Auto) (0 - 6 %) 3.0 Baso % (Auto) (0 - 2 %) 0.7 Neut # (Auto) (2.0 - 7.6 K/mm3) 4.45 Lymph # (Auto) (1.0 - 3.8 K/mm3) 1.98 Dickenson # (Auto) (0.1 - 0.8 K/mm3) 0.73 [...] will proceed with permanent pacing. at 0902 RPT #:[id number] OF REPORTPRProgress oobt7291-80-18W83:39:00Z.UNZS51230234-5496JUDplmk able for patient jjruJVPUWPIPMHWUTN4704-96-57Z43:02:43 [facility] 2021-12-13 18:41:00 [id number] xCtsLWsLgpcoVlnW7U542DUI/DELI UQQnrJ6ksPaE8wP9UQS1Hd9aLnvY401441-89-56I29:41:00 7363-5667 [place] [address] PATIENT NAME: CHARLIE HART ADMIT DATE: 12/13/21ACCOUNT NO: [id number] ROOM NO: [facility] AGE: 86 REPORT TYPE: CONSULTATION REPORT SEX: M ADMITTING PHYSICIAN:Alvaro Ron MD ATTENDING PHYSICIAN:Alvaro Ron MD CONSULTATION DATE: 12/13/2021 CONSULTING PHYSICIAN: Kyree Noble MD REFERRING PHYSICIAN: Alvaro Ron MD REASON FOR CONSULTATION: We were asked to evaluate this patient for syncope. HISTORY OF PRESENT ILLNESS: This is an 86-year-old male with a history ofhypertension and dyslipidemia, who was transferred from [facility] after he presented there for an [...] improve. Dictated By: Kyree Noble MD WT: CON:Z.HIM/PEPGR/NTSDD: 12/13/2021 18:41:17DT: 12/13/2021 23:15:56Conf#: [id number]/DID#: [id number] Authenticated by Kyree Noble MD On 12/14/2021 06:49:14 AM at 0649 PATIENT NAME: CHARLIE HART :15:00Z.FL [id number] for patient kcmlPRRIFLSXPMRSNL2306-00-58A79:50:02 [facility] 2021-12-13 17:18:00 [id number] i866M3dSUI4bKuRikcj6ZM43IIf5e 5ddXsdekmF5+ZVQs0XjxF68TbULz3O5033-48-00N24:18:00 [facility] ([facility])Hospitalist History PhysicalREPORT#:[id number] REPORT STATUS: SignedDATE:12/13/21 TIME: 1717 PATIENT: CHARLIE HART UNIT #: [id number]#: [id number] [address] AGE: 86 SEX: M ATTEND: Alvaro Ron AUTHOR: Alvaro Ron MD * ALL edits or amendments must be made on the electronic/computer document * History of Present Illness HPIChief complaint:transfer for low HRPCP:PCP: Dr Celis HPI: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0 - 7.6 K/mm3) 4.45 Lymph # (Auto) (1.0 - 3.8 K/mm3) 1.98 Dickenson # (Auto) (0.1 - 0.8 K/mm3) 0.73 [...] SyncopeECHO ordered: yes susp.cardiac etiology at 2126 [facility] #:[id number] OF REPORTHPHistory and physical fqwvdtyzrhy4507-52-38I50:18:00Z.[id number] AVAvailable for patient eigwYSGLCAFZRHXOZG0618-09-35V08:26:24 [facility] 2021-12-13 17:00:00 [id number] IPlTZf/gBo8QH4sV9HX567H6nVBed w2fjJIkagmCHZAjbk1SB3XZgpmXYKr2019-37-08T79:00:00 [facility] ([facility])EMERGENCY PROVIDER REPORTREPORT#:[id number] REPORT STATUS: SignedDATE:12/13/21 TIME: 1700 PATIENT: CHARLIE HART UNIT #: [id number]#: [id number] [address] 86 SEX: M PCP PHYS: No Primary or Family PhysicianSERVICE AUTHOR: Thanh Peralta MD LOCATION: [facility] * ALL edits or amendments must be made on the electronic/computer document * HPI-Syncope Free Text HPI NotesFree Text HPI NotesThis is an 86-year-old male with a history [...] History - AdultStated Complaint ER TRANSFER FROM [place], [address] BLOCKAllergiesCoded Allergies:No Known Allergies (12/13/21) Pt reports no significant: Past medical history, Past surgical history, Family history, Social historySmoking status: Smoking status for patients 13 years old or older: Unknown,if ever smoked Physical Exam Vital SignsVital SignsFirst Documented: Result Date Time Pulse Ox 99 12/13 1647 B/P 177/72 12/13 164 B/P Mean 107 12/13 1646 Temp 36.4 05/19 1647 Pulse 34 12/13 1646 Resp 12/13 164 Last Documented: Result Date Time Pulse Ox [...] Pulse 34 12/13 1647 Resp 12/13 164 Last Documented: Result Date Time Pulse Ox 99 12/13 1647 B/P 177/72 12/13 1647 B/P Mean 107 12/13 1647 Temp 36.4 12/13 1647 Pulse 34 12/13 1646 Resp 12/13 All vital signs available at the time of this entry have been reviewed. Clinical ImpressionClinical ImpressionPrimary Impression: Bradycardia Disposition DecisionAdmit Admit Physician Name Alvaro Ron MD Admit Physician Hospitalist Request Time 171 Request Date 12/13/21 )( Admission Accepts Yes )( Accepted Time 1710 )( Accepted Date 12/13/21 Call Information will see patient at 1219RPT #:[id number] OF REPORTEDEmergency department dxbbeh7368-91-54B67:00:00Z.YZUZ77454624-6343FQMgc ilable for patient afjeSTLJQNGNGBZHPM1440-18-13S41:20:06 [facility]
[2023-12-30 15:53] LABS: Absolute Lymphocytes (CBC) 0.4 K/uL (0.7-4.9); Absolute Monocytes 0.6 K/uL (0.1-1.3); Basophils % 0.3 % (0-1.3); Eosinophils % 0.4 % (0-4.4); Hematocrit 35.6 % (39.6-49.0); Hemoglobin 11.7 g/dL (13.6-17.9); Lymphocytes % 6.3 % (15.3-44.8); MCH 33.2 pg (27.0-35.0); MCHC 32.9 g/dL (32.0-36.0); MCV 100.8 fL (80-100); MPV 6.9 fL (7.6-11.3); Monocytes % 8.6 % (3.3-12.3); Neutrophils % 84.4 % (41.7-73.7); Platelets 186 thou/uL (152-406); RBC Red Blood Cell Count 3.54 M/uL (4.33-5.43); Red Cell Distribution Width 17.1 % (12.1-15.2)
[2023-12-30 16:14] LABS: Troponin High Sensitivity 6.5 pg/mL (<58.9)
[2023-12-30] MEDS ORDERED: NA CHLORIDE 0.9% 1,000 ML ONE (16:15)
--- NOTE | 2023-12-30 16:39 | RAD REPORT ---
EXAM DESCRIPTION: Donn Single View12/30/2023 4:12 pm CLINICAL HISTORY: Chest pain COMPARISON: August 2023 FINDINGS: The lungs appear clear of acute infiltrate. The heart is mildly enlarged. Postsurgical changes involve the chest. Pacemaker leads in place IMPRESSION: No acute abnormalities displayed
--- NOTE | 2023-12-30 17:47 | ER ---
Nurse's Notes [facility] Name: Charlie Hart Age: 88 yrs Sex: Male : 1935 Arrival Date: 12/30/2023 Time: 15:04 Bed 20 Private MD: Diagnosis: Syncope Near Presentation: 12/29 15:20 Chief complaint: Patient states: Pt states he passed out while on the toilet but did tl4 not fall or hit the floor. Pt states he felt nauseated prior to event but nausea is now resolved. Pt denies any CP, SOB, dizziness. Coronavirus screen: At this time, the client does not indicate any symptoms associated with coronavirus-19. Ebola Screen: No symptoms or risks identified at this time. Initial Sepsis Screen: Does the patient meet any 2 criteria? No. Patient's initial sepsis screen is negative. Does the patient have a suspected source of infection? No. Patient's initial sepsis screen is negative. Risk Assessment: Do you want to hurt yourself or someone else? Patient reports no desire to harm self or others. Onset of symptoms was December 30, 2023 at 14:30. 15:20 Method Of Arrival: EMS tl4 15:20 Acuity: CLAUDINE 3 tl4 15:20 Care prior to arrival: IV initiated. 20 GA, in the left antecubital area. tl4 15:21 Chief complaint: EMS states: patient had a syncopal episode, but it was witnessed and ap3 family assisted her to the floor. patient did not hit her head. Triage Assessment: 15:25 General: Appears in no apparent distress. Behavior is calm, cooperative. Pain: Denies tl4 pain. EENT: No signs and/or symptoms were reported regarding the EENT system. Neuro: Level of Consciousness is awake, alert, obeys commands, Oriented to person, place, time, situation, Moves all extremities. Full function Speech is normal, Facial symmetry appears normal, Reports a syncopal episode Denies weakness blurred vision dizziness, paresthesias numbness headache. Cardiovascular: Denies chest pain, nausea, palpitations, shortness of breath, Capillary refill < 3 seconds Patient's skin is warm and dry. Respiratory: Airway is patent Respiratory effort is even, unlabored, Respiratory pattern is regular, symmetrical, Breath sounds are clear bilaterally. GI: Reports nausea. : No signs and/or symptoms were reported regarding the genitourinary system. Derm: No signs and/or symptoms reported regarding the dermatologic system. Musculoskeletal: No signs and/or symptoms reported regarding the musculoskeletal system. Historical: - Allergies: 16:05 No Known Allergies; tl4 - Home Meds: 16:05 amiodarone 200 mg Oral tablet 2 times per day [Active]; apixaban 5 mg Oral tablet 2 tl4 times per day [Active]; ascorbic acid (vitamin C) 500 mg tablet daily [Active]; atorvastatin 80 mg Oral tablet every evening [Active]; ferrous sulfate 325 mg (65 mg iron) Oral tablet daily [Active]; methocarbamol 500 mg Oral tablet every 8 hours [Active]; metoprolol succinate oral 12.5 mg daily [Active]; Plavix 75 mg Oral tablet daily [Active]; tramadol 50 mg Oral tablet 2 times per day [Active]; - PMHx: 16:05 CAD; chronic kidney disease; CVA; GERD; Hyperlipidemia; Hypertension; macular tl4 degeneration; osteoarthritis; Pre-Diabetes; Prostate Cancer; stroke; West Nile Virus; - PSHx: 16:05 bilateral knee replacement; cataract repair; Cholecystectomy; hip/shoulder replacement; tl4 pacemaker; - Immunization history:: Adult Immunizations unknown. - Infectious Disease History:: Denies. - Social history:: Smoking status: Patient denies any tobacco usage or history of. Screenin:09 [facility] ED Fall Risk Assessment (Adult) History of falling in the last 3 months, tl4 including since admission Yes- physiologic fall (2 pts) Confusion or Disorientation No (0 pts) Intoxicated or Sedated No (0 pts) Impaired Gait No (0 pts) Mobility Assist Device Used No (0 pt) Altered Elimination No (0 pt) Score/Fall Risk Level 0 - 2 = Low Risk Oriented to surroundings, Maintained a safe environment, Educated pt \T\ family on fall prevention, incl call for assistance when getting out of bed, Assessed \T\ reinforced patient's understanding of fall precautions. Abuse screen: Denies threats or abuse. Denies injuries from another. Nutritional screening: No deficits noted. Tuberculosis screening: No symptoms or risk factors identified. Assessment: 16:10 Reassessment: No changes from previously documented assessment. Patient and/or family tl4 updated on plan of care and expected duration. Pain level reassessed. Patient is alert, oriented x 3, equal unlabored respirations, skin warm/dry/pink. Pt denies any needs at this time. Family at bedside. Will continue to monitor. 17:05 Reassessment: No changes from previously documented assessment. Patient and/or family tl4 updated on plan of care and expected duration. Pain level reassessed. Patient is alert, oriented x 3, equal unlabored respirations, skin warm/dry/pink. 17:55 Reassessment: No changes from previously documented assessment. Patient and/or family tl4 updated on plan of care and expected duration. Pain level reassessed. Patient is alert, oriented x 3, equal unlabored respirations, skin warm/dry/pink. Patient denies pain at this time. Vital Signs: 15:20 BP 135 / 79; Pulse 80; Resp 12; Temp 98.9(O); Pulse Ox 98% on R/A; Weight 63.96 kg (M); tl4 Height 5 ft. 8 in. ; Pain 0/10; 16:08 BP 119 / 72; Pulse 79; Resp 15; Pulse Ox 100% on R/A; tl4 17:00 BP 116 / 67; Pulse 79; Resp 15; Pulse Ox 99% on R/A; tl4 17:55 BP 131 / 75; Pulse 81; Resp 16; Temp 98.1(O); Pulse Ox 100% ; Pain 0/10; tl4 15:20 Body Mass Index 21.44 (63.96 kg, 172.72 cm) tl4 15:20 Pain Scale: Adult tl4 17:55 Pain Scale: Adult tl4 Vitals: 16:08 Cardiac Rhythm Assessment Regular Sinus rhythm. tl4 ED Course: 15:14 Patient arrived in ED. ap3 15:19 Alex Mann MD is Attending Physician. ec2 15:51 Initial lab(s) drawn, by me, sent to lab. EKG done, by ED staff, reviewed by Alex Mann MD. Maintain EMS IV. Dressing intact. Good blood return noted. Site clean \T\ dry. Gauge \T\ site: 18G LAC. 15:57 Basic Metabolic Panel Sent. tl4 15:57 Troponin HS Sent. tl4 16:05 Triage completed. tl4 16:08 No provider procedures requiring assistance completed. tl4 16:08 Arm band placed on left wrist. tl4 16:10 Patient has correct armband on for positive identification. Placed in gown. Bed in low tl4 position. Call light in reach. Side rails up X2. Adult w/ patient. Provided Education on: ed process, call olivera. Client placed on continuous cardiac and pulse oximetry monitoring. NIBP monitoring applied. pvc monitor on. Door closed. Noise minimized. Moved to private room. Warm blanket given. Pillow given. 16:14 XRAY Chest (1 view) In Process Unspecified. EDMS 17:58 IV discontinued, intact, bleeding controlled, No redness/swelling at site. Pressure tl4 dressing applied. Administered Medications: 16:16 Drug: NS 0.9% IV 1000 ml IV at 1 bolus Per protocol; 1000 mL bolus Route: IV; Rate: 1 tl4 bolus; Site: left antecubital; Delivery: Primary tubing; 17:57 Follow up: Response: No adverse reaction; IV Status: Completed infusion; IV Intake: tl4 1000ml Medication: 16:08 VIS not applicable for this client. tl4 Intake: 17:57 IV: 1000ml; Total: 1000ml. tl4 Outcome: 17:47 Discharge ordered by . ec2 17:59 Discharged to home via wheelchair, with family, tl4 17:59 Condition: stable 17:59 Discharge instructions given to patient, family, Instructed on discharge instructions, follow up and referral plans. Demonstrated understanding of instructions, follow-up care, 18:09 Patient left the ED. tl4 Signatures: Dispatcher [employer] Jayne Batres RN RN ap3 Alex Mann MD MD ec2 Mejia Coleman RN RN tl4 Terrence Dominguez [email or web address]
--- NOTE | 2023-12-30 17:47 | EDPHYS ---
Physician Documentation [facility] Name: Charlie Hart Age: 88 yrs Sex: Male : 1935 Arrival Date: 12/30/2023 Time: 15:04 Bed 20 Private MD: ED Physician Alex Mann HPI: 12/29 15:20 This 88 yrs old Male presents to ER via Unassigned with complaints of syncope.ec2 15:20 Patient arrives today for evaluation of syncope. Patient reportedly was walking felt ec2 lightheaded and almost fell to the ground. Patient was caught by family members. Denies chest pain, difficulty breathing, denies abdominal pain. Reports diarrhea for the past several days.. Historical: - Allergies: 16:05 No Known Allergies; tl4 - Home Meds: 16:05 amiodarone 200 mg Oral tablet 2 times per day [Active]; apixaban 5 mg Oral tablet 2 tl4 times per day [Active]; ascorbic acid (vitamin C) 500 mg tablet daily [Active]; atorvastatin 80 mg Oral tablet every evening [Active]; ferrous sulfate 325 mg (65 mg iron) Oral tablet daily [Active]; methocarbamol 500 mg Oral tablet every 8 hours [Active]; metoprolol succinate oral 12.5 mg daily [Active]; Plavix 75 mg Oral tablet daily [Active]; tramadol 50 mg Oral tablet 2 times per day [Active]; - PMHx: 16:05 CAD; chronic kidney disease; CVA; GERD; Hyperlipidemia; Hypertension; macular tl4 degeneration; osteoarthritis; Pre-Diabetes; Prostate Cancer; stroke; West Nile Virus; - PSHx: 16:05 bilateral knee replacement; cataract repair; Cholecystectomy; hip/shoulder replacement; tl4 pacemaker; - Immunization history:: Adult Immunizations unknown. - Infectious Disease History:: Denies. - Social history:: Smoking status: Patient denies any tobacco usage or history of. ROS: 15:20 Constitutional: as per hpi ec2 Exam: 15:20 Constitutional: GEN: NAD Head: atraumatic Eyes: EOMI Ears: External ears are ec2 normal. CV: regular rate LUNGS: no respiratory distress ABD: non-distended, soft, nontender, no guarding, nonrigid. SKIN: no evidence of rashes MSK: no evidence of trauma NEURO: moves all extremities equally Vital Signs: 15:20 BP 135 / 79; Pulse 80; Resp 12; Temp 98.9(O); Pulse Ox 98% on R/A; Weight 63.96 kg (M); tl4 Height 5 ft. 8 in. ; Pain 0/10; 16:08 BP 119 / 72; Pulse 79; Resp 15; Pulse Ox 100% on R/A; tl4 17:00 BP 116 / 67; Pulse 79; Resp 15; Pulse Ox 99% on R/A; tl4 17:55 BP 131 / 75; Pulse 81; Resp 16; Temp 98.1(O); Pulse Ox 100% ; Pain 0/10; tl4 15:20 Body Mass Index 21.44 (63.96 kg, 172.72 cm) tl4 15:20 Pain Scale: Adult tl4 17:55 Pain Scale: Adult tl4 MDM: 15:20 Patient medically screened. ec2 15:20 Data reviewed: vital signs. ED course: Patient arrives today for evaluation of syncope. ec2 Examination remarkable for well-appearing nontoxic dividual is otherwise in no acute distress. I discussed case with EMS, they reported appropriate hemodynamics, I given the patient a liter of crystalloid prior to arrival. Will obtain lab work, EKG, give the patient additional liter of crystalloid. Differential diagnosis includes ACS, arrhythmia, anemia, dehydration. . 15:54 ED course: EKG independently reviewed and interpreted by me, shows normal sinus rhythm, ec2 rate of 80, no acute ST segment elevations, intervals nonconcerning, left bundle branch block noted.. 17:12 ED course: Metabolic profile reassuring. CBC shows slight anemia. Troponin within ec2 normal ranges. Chest x-ray independently reviewed and interpreted by me, shows no acute intrathoracic process. . 17:47 ED course: On reassessment patient is well-appearing no acute distress. Will discharge ec2 home. Return precautions given. Suspect possible early dehydration given the patient's bouts of diarrhea.. 17:47 ED course: MDM: Differential diagnosis as documented above in ED course; All lab tests ec2 ordered and reviewed as documented above; Independent interpretation of tests: EKG as above; History gathered from independent historian: Yes, family . 12/29 15:20 Order name: Basic Metabolic Panel; Complete Time: 17:12 ec2 12/29 15:20 Order name: CBC with Diff ec2 12/29 15:20 Order name: Troponin HS; Complete Time: 17:12 ec2 12/29 15:58 Order name: CBC Smear Scan EDMS 12/29 17:55 Order name: Manual Differential EDMS 12/29 15:20 Order name: XRAY Chest (1 view); Complete Time: 17:12 ec2 12/29 15:20 Order name: Cardiac monitoring; Complete Time: 15:56 ec2 12/29 15:20 Order name: EKG - Nurse/Tech; Complete Time: 15:56 ec2 12/29 15:20 Order name: IV Saline Lock; Complete Time: 15:56 ec2 12/29 15:20 Order name: Labs collected and sent; Complete Time: 15:56 ec2 12/29 15:20 Order name: O2 Per Protocol; Complete Time: 15:56 ec2 12/29 15:20 Order name: O2 Sat Monitoring; Complete Time: 15:56 ec2 Administered Medications: 16:16 Drug: NS 0.9% IV 1000 ml IV at 1 bolus Per protocol; 1000 mL bolus Route: IV; Rate: 1 tl4 bolus; Site: left antecubital; Delivery: Primary tubing; 17:57 Follow up: Response: No adverse reaction; IV Status: Completed infusion; IV Intake: tl4 1000ml Disposition Summary: 12/30/23 17:47 Discharge Ordered Notes: Location: Home ec2 Condition: Stable ec2 Diagnosis - Syncope Near ec2 Followup: ec2 - With: Private Physician - When: - Reason: Re-evaluation by your physician Discharge Instructions: - Discharge Summary Sheet ec2 - Syncope ec2 Forms: - Medication Reconciliation Form ec2 - Antibiotic Education ec2 - Prescription Opioid Use ec2 - Patient Portal Instructions ec2 - Leadership Thank You Letter ec2 Signatures: Dispatcher [employer] Alex Alejandra MD MD ec2 Mejia Coleman RN RN tl4
[2023-12-30 17:54] LABS: Differential Total Cells Count 100
[2023-12-30 17:55] LABS: Anisocytosis SLIGHT; Band Neutrophils 8 % (0-1); Blood Morphology Comment NOTED (NOT SEEN); Lymphocytes 4 % (15-42); Monocytes 6 % (0-10); Segmented Neutrophils 82 % (40-80); White Blood Cell Scan DIFF (OK)
[2023-12-30 18:05] LABS: Platelet Estimate ADEQ
[2023-12-30 19:05] VITALS: BP 131/75; TEMP 98.1; O2SAT 100
--- NOTE | 2023-12-31 16:34 | EKG ---
Test Date: 2023-12-30 Test Time: 15:41:50 Application Architect Manager: JEREMIAH MEASUREMENT RESULTS: Intervals: Rate: 80 GA: 130 QRSD: 132 QT: 434 QTc: 500 [place]: P: 34 GA: 130 QRS: 35 T: 216 INTERPRETIVE STATEMENTS: Sinus rhythm Nonspecific intraventricular block T wave abnormality, consider inferolateral ischemia Abnormal ECG Compared to ECG 10/04/2023 09:41:51 T-wave abnormality now present Possible ischemia now present Ventricular premature complex(es) no longer present Electronically Signed On 12-31-23 16:32:31 CDT by Lennox Jarrett
== END 2023-12-30 18:09 | disposition home or self-care (01) ==
LOC: ER 15:04
DX: R55 Syncope and collapse (principal); R19.7 Diarrhea, unspecified
CPT/HCPCS: 96361; 93005; 85025; 80048; 36415; 84484; 71045; 96360; 99285; J7030

== ENCOUNTER 2024-02-22 19:04 | Inpatient (IN) | payer OTHER ==
--- OUTSIDE RECORDS SUMMARY | 2024-02-22 19:11 | XMS REPORT | Continuity of Care Document ---
Author Name Unknown Address [address] [facility] [address] [place] [address] [facility] Address [address] [facility] [address] [place] [address] Care Team Providers Care Cabinet Mounter Name Role Phone Jamari Carrero Primary Care Physician DERIK COSME Attending Clinician Lizeth Derik Yuan MD Attending Clinician [phone] ZACKERY ARNETT Attending Clinician Unavailable ALEJANDRA LEWIS NATASHA Attending Clinician Unava ilTony Osborne Attending Clinician Unavailable UNKNOWN Attending Clinician Unavailable Deyvi Celis Cardiology Attending Clinician Unavailable Alvaro Ron Attending Clinician Unavailable RADHA Attending Clinician Unavailable Fernando Harris MD Attending Clinician [phone] Jamari Carrero Attending Clinician [phone] DERIK COSME Admitting Clinician Lizeth ALEJANDRA Kitchen NATASHA Admitting Clinician Unava ilTony Osborne Admitting Clinician Unavailable Deyvi Celis Cardiology Admitting Clinician Unavailable KNOW, DOES_NOT Admitting Clinician Unavailable Alvaro Ron Admitting Clinician Unavailable RADHA Admitting Clinician Unavailable Payers Payer Name Policy Type Policy Number Effective Date Expirati on Date Source [employer] MEDICAL [id number] 2015 00:00:00 AETNA MEDICARE PPO [id number] 2023 00:00:00 AETM AETM [id number] AETNA (PPO) [id number] 2022 00:00:00 AETNA (INDEMNITY) [id number] 2000 00:00:00 2022 00:00:00 [place]: [employer] [id number] 2000 00:00:00 Problems Condition Name Condition Details Condition Category Status Onset Date Resolution Date Last Treatment Date Treating Clinician Comments Source Pressure injury Pressure Injury Problem Active 12-22 00:00: 00 [facility] 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 Problem Active 2022-07 00:00: 00 [facility] Dislocatio n of hip joint Dislocatio n of Hip Joint Problem Active 2022-07 00:00: 00 [facility] Macrocytic anemia Macrocytic Anemia Problem Active 07-30 00:00: 00 [facility] Chronic kidney disease stage 3B Chronic Kidney Disease Stage 3B Problem Active 2021-07 00:00: 00 [facility] Left bundle branch block Left Bundle Branch Block Problem Active 01-11 00:00: 00 [facility] 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 Problem Active 01-11 00:00: 00 [facility] Aortic stenosis, non-rheuma tic Aortic Stenosis, Non-rheuma tic Problem Active 2021-0 6-17 00:00: 00 [facility] 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 3-09 00:00: 00 [facility] 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 Problem Active 22 00:00: 00 [facility] Chronic pain Chronic Pain Problem Active 01-09 00:00: 00 [facility] Hyperchole sterolemia Hyperchole sterolemia Problem Active 08-19 00:00: 00 [facility] Coronary arterioscl erosis Coronary Arterioscl erosis Problem Active 08-19 00:00: 00 [facility] Arthritis Arthritis Problem Active 08-19 00:00: 00 [facility] Fatigue Fatigue Problem Active 08-19 00:00: 00 [facility] History of meningitis History of Meningitis Problem Active 08-19 00:00: 00 [facility] History of cerebrovas cular accident History of Cerebrovas cular Accident Problem Active 08-19 00:00: 00 [facility] Allergies, Adverse Reactions, Alerts Allergy Name Allergy Type Status Severity Reaction(s) Onset Date Inactive Date Treating Clinician Comments Source No Known Allergie s DA Active U 08-09 00:00: 00 [facility] No Known Allergie s DA Active U 08-08 00:00: 00 [facility] No Known Allergie s DA Active U 12-13 00:00: 00 [facility] No Known Drug Intolera nces DA Active U 2008-07 00:00: 00 [facility] No Known Contrast Allergie s DA Active U 01-15 00:00: 00 [facility] No Known Food Allergie s DA Active U 01-15 00:00: 00 [facility] No Known Other Allergie s DA Active U 01-15 00:00: 00 [facility] Social History Social Habit Start Date Stop Date Quantity Comments Source Sexual orientation [facility] Exposure to SARS-CoV-2 (event) 2022 00:00:00 2022-04-22 08:33:00 Not sure [facility] Tobacco use and exposure 2022-04-22 00:00:00 2022-04-22 00:00:00 Smokeless tobacco non-user [facility] Alcohol intake 2022-04-22 00:00:00 2022-04-22 00:00:00 Lifetime non-drinker (finding) [facility] Alcoholic beverage intake 2022-04-22 00:00:00 2022-04-22 00:00:00 Lifetime non-drinker (finding) [facility] History of Social function 2022-04-22 00:00:00 2022-04-22 00:00:00 [facility] Sex assigned at 1935 00:00:00 1935 00:00:00 [facility] Smoking Status Start Date Stop Date Source Former Smoker [facility] Never smoked tobacco [facility] Medications Ordered Medication Name Filled Medication Name Start Date Stop Date Current Medication? Ordering Clinician Indication Dosage Frequency Signature (SIG) Comments Components Source clopidogrel 75 mg tablet TAKE 1 TABLET BY MOUTH EVERY DAY clopidogrel 75 mg tablet TAKE 1 TABLET BY MOUTH EVERY DAY No clopidogre l 75 mg tablet TAKE 1 TABLET BY MOUTH EVERY DAY [facility] isosorbide mononitrate ER 30 mg tablet,exte nded release 24 hr TAKE 1 TABLET BY MOUTH EVERY DAY isosorbide mononitrate ER 30 mg tablet,exte nded release 24 hr TAKE 1 TABLET BY MOUTH EVERY DAY No isosorbide mononitrat e ER 30 mg tablet,ext ended release 24 hr TAKE 1 TABLET BY MOUTH EVERY DAY [facility] metoprolol succinate ER 25 mg tablet,exte nded release 24 hr TAKE 1/2 TABLET BY MOUTH DAILY metoprolol succinate ER 25 mg tablet,exte nded release 24 hr TAKE 1/2 TABLET BY MOUTH DAILY No metoprolol succinate ER 25 mg tablet,ext ended release 24 hr TAKE 1/2 TABLET BY MOUTH DAILY [facility] tramadol 50 mg tablet TAKE 1 TABLET BY MOUTH EVERY 12 HOURS tramadol 50 mg tablet TAKE 1 TABLET BY MOUTH EVERY 12 HOURS No tramadol 50 mg tablet TAKE 1 TABLET BY MOUTH EVERY 12 HOURS [facility] hydrocortis one valerate 0.2 % topical [...] FOR ITCHING FOR 2 WEEKS PER MONTH [facility] amiodarone 200 mg tablet TAKE 1 TABLET BY MOUTH EVERY MORNING. HOLD IF PULSE IS LESS THAN 60 amiodarone 200 mg tablet TAKE 1 TABLET BY MOUTH EVERY MORNING. HOLD IF PULSE IS LESS THAN 60 No amiodarone 200 mg tablet TAKE 1 TABLET BY MOUTH EVERY MORNING. HOLD IF PULSE IS LESS THAN 60 [facility] aspirin 81 mg tablet,emily yed release TAKE 1 TABLET BY MOUTH DAILY aspirin 81 mg tablet,emily yed release TAKE 1 TABLET BY MOUTH DAILY No aspirin 81 mg tablet,del ayed release TAKE 1 TABLET BY MOUTH DAILY [facility] atorvastati n 40 mg tablet TAKE 1 TABLET BY MOUTH EVERY DAY AT BEDTIME FOR CHOLESTEROL atorvastati n 40 mg tablet TAKE 1 TABLET BY MOUTH EVERY DAY AT BEDTIME FOR CHOLESTEROL No 1 Q1D atorvastat in 40 mg tablet TAKE 1 TABLET BY MOUTH EVERY DAY AT BEDTIME FOR CHOLESTERO L [facility] atorvastati n 80 mg tablet TAKE 1 TABLET BY MOUTH EVERY NIGHT AT BEDTIME atorvastati n 80 mg tablet TAKE 1 TABLET BY MOUTH EVERY NIGHT AT BEDTIME No atorvastat in 80 mg tablet TAKE 1 TABLET BY MOUTH EVERY NIGHT AT BEDTIME [facility] Eliquis 5 mg tablet TAKE 1 TABLET BY MOUTH TWICE DAILY Eliquis 5 mg tablet TAKE 1 TABLET BY MOUTH TWICE DAILY No Eliquis 5 mg tablet TAKE 1 TABLET BY MOUTH TWICE DAILY [facility] FeroSul 325 mg (65 mg iron) tablet TAKE 1 TABLET BY MOUTH DAILY FeroSul 325 mg (65 mg iron) tablet TAKE 1 TABLET BY MOUTH DAILY No FeroSul 325 mg (65 mg iron) tablet TAKE 1 TABLET BY MOUTH DAILY [facility] furosemide 20 mg tablet TAKE 1 TABLET BY MOUTH EVERY DAY IN THE MORNING furosemide 20 mg tablet TAKE 1 TABLET BY MOUTH EVERY DAY IN THE MORNING No 1 Q1D furosemide 20 mg tablet TAKE 1 TABLET BY MOUTH EVERY DAY IN THE MORNING [facility] methocarbam ol 500 mg tablet TAKE 1 TABLET BY MOUTH EVERY 8 HOURS NEEDED methocarbam ol 500 mg tablet TAKE 1 TABLET BY MOUTH EVERY 8 HOURS NEEDED No methocarba mol 500 mg tablet TAKE 1 TABLET BY MOUTH EVERY 8 HOURS NEEDED [facility] olopatadine 0.1 % eye drops INSTILL 1 DROP BOTH EYES EVERY 12 HOURS NEEDED olopatadine 0.1 % eye drops INSTILL 1 DROP BOTH EYES EVERY 12 HOURS NEEDED No olopatadin e 0.1 % eye drops INSTILL 1 DROP BOTH EYES EVERY 12 HOURS NEEDED [facility] potassium chloride ER 10 mEq tablet,exte nded release(par t/cryst) TAKE 1 TABLET BY MOUTH EVERY MORNING potassium chloride ER 10 mEq tablet,exte nded release(par t/cryst) TAKE 1 TABLET BY MOUTH EVERY MORNING No potassium chloride ER 10 mEq tablet,ext ended release(pa rt/cryst) TAKE 1 TABLET BY MOUTH EVERY MORNING [facility] ketoconazol e 2 % shampoo APPLY TOPICALLY 3 TO 4 TIMES WEEKLY. LEAVE ON FOR 5-10 MINUTES BEFORE RINSING ketoconazol e 2 % shampoo APPLY TOPICALLY 3 TO 4 TIMES WEEKLY. LEAVE ON FOR 5-10 MINUTES BEFORE RINSING No ketoconazo le 2 % shampoo APPLY TOPICALLY 3 TO 4 TIMES WEEKLY. LEAVE ON FOR 5-10 MINUTES BEFORE RINSING [facility] mupirocin 2 % topical ointment APPLY A THIN LAYER TO OPEN WOUND ON EARS AND ARMS TWICE DAILY mupirocin 2 % topical ointment APPLY A THIN LAYER TO OPEN WOUND ON EARS AND ARMS TWICE DAILY No mupirocin 2 % topical ointment APPLY A THIN LAYER TO OPEN WOUND ON EARS AND ARMS TWICE DAILY [facility] Santyl 250 unit/gram topical ointment APPLY TO WOUND ONCE DAILY DIRECTED Santyl 250 unit/gram topical ointment APPLY TO WOUND ONCE DAILY DIRECTED No Santyl 250 unit/gram topical ointment APPLY TO WOUND ONCE DAILY DIRECTED [facility] Augmentin 875 mg-125 mg tablet Take 1 tablet every 12 hours by oral route as directed for 10 days, for Strep Throat. Augmentin 875 mg-125 mg tablet Take 1 tablet every 12 hours by oral route as directed for 10 days, for Strep Throat. No 1 Q12H Augmentin 875 mg-125 mg tablet Take 1 tablet every 12 hours by oral route as directed for 10 days, for Strep Throat. [facility] potassium chloride ER 10 mEq tablet,exte nded release TAKE 1 TABLET BY MOUTH TWICE DAILY WITH FOOD potassium chloride ER 10 mEq tablet,exte nded release TAKE 1 TABLET BY MOUTH TWICE DAILY WITH FOOD No potassium chloride ER 10 mEq tablet,ext ended release TAKE 1 TABLET BY MOUTH TWICE DAILY WITH FOOD [facility] Immunizations Ordered Immunization Name Filled Immunization Name Date Status Comments Source Influenza, injectable, MDCK, preservative free, quadrivalent Influenza, injectable, MDCK, preservative free, quadrivalent Unknown Completed [facility] Pneumococcal conjugate PCV20, polysaccharide [id number] conjugate, adjuvant, PF Pneumococcal conjugate PCV20, polysaccharide [id number] conjugate, adjuvant, PF Unknown Completed [facility] influenza, high-dose, quadrivalent influenza, high-dose, quadrivalent Unknown Completed [facility] COVID-19 (SARS-COV-2) vaccine, unspecified COVID-19 (SARS-COV-2) vaccine, unspecified Unknown Completed [facility] influenza, injectable, quadrivalent influenza, injectable, quadrivalent Unknown Completed [facility] Vital Signs Vital Name Observation Time Observation Value Comments S ource BP Diastolic 2023-12-24 00:00:00 52 mm[Hg] [facility] Height 2023-12-24 00:00:00 68 [in_i] [facility] BP Systolic 2023-12-24 00:00:00 102 mm[Hg] [facility] BP Systolic 2023-12-09 00:00:00 112 mm[Hg] [facility] BMI (Body Mass Index) 2023-12-09 00:00:00 22.5 kg/m2 [facility] Height 2023-12-09 00:00:00 68 [in_i] [facility] Body Weight 2023-12-09 00:00:00 2368 [oz_av] [facility] BP Diastolic 2023-12-09 00:00:00 72 mm[Hg] [facility] BP Diastolic 2023-06-16 00:00:00 70 mm[Hg] [facility] BMI (Body Mass Index) 2023-06-16 00:00:00 25.1 kg/m2 [facility] BP Systolic 2023-06-16 00:00:00 118 mm[Hg] [facility] Body Weight 2023-06-16 00:00:00 2640 [oz_av] [facility] Height 2023-06-16 00:00:00 68 [in_i] [facility] BMI (Body Mass Index) 2023-04-14 00:00:00 26.9 kg/m2 [facility] Body Weight 2023-04-14 00:00:00 2832 [oz_av] [facility] Height 2023-04-14 00:00:00 68 [in_i] [facility] BP Diastolic 2023-04-14 00:00:00 72 mm[Hg] [facility] BP Systolic 2023-04-14 00:00:00 120 mm[Hg] [facility] BP Diastolic 2023-02-11 00:00:00 74 mm[Hg] [facility] Height 2023-02-11 00:00:00 68 [in_i] [facility] BMI (Body Mass Index) 2023-02-11 00:00:00 27.2 kg/m2 [facility] BP Systolic 2023-02-11 00:00:00 124 mm[Hg] [facility] Body Weight 2023-02-11 00:00:00 2864 [oz_av] [facility] BP Diastolic 2022-12-12 00:00:00 70 mm[Hg] [facility] Height 2022-12-12 00:00:00 68 [in_i] [facility] BP Systolic 2022-12-12 00:00:00 116 mm[Hg] [facility] BP Diastolic 2022-09-09 00:00:00 72 mm[Hg] [facility] Height 2022-09-09 00:00:00 68 [in_i] [facility] BMI (Body Mass Index) 2022-09-09 00:00:00 28.6 kg/m2 [facility] BP Systolic 2022-09-09 00:00:00 120 mm[Hg] [facility] Body Weight 2022-09-09 00:00:00 3008 [oz_av] [facility] BP Diastolic 2022-07-15 00:00:00 74 mm[Hg] [facility] Height 2022-07-15 00:00:00 68 [in_i] [facility] BMI (Body Mass Index) 2022-07-15 00:00:00 29 kg/m2 [facility] BP Systolic 2022-07-15 00:00:00 114 mm[Hg] [facility] Body Weight 2022-07-15 00:00:00 3048 [oz_av] [facility] BP Diastolic 2022-06-06 00:00:00 74 mm[Hg] [facility] Height 2022-06-06 00:00:00 68 [in_i] [facility] BMI (Body Mass Index) 2022-06-06 00:00:00 28.7 kg/m2 [facility] BP Systolic 2022-06-06 00:00:00 120 mm[Hg] [facility] Body Weight 2022-06-06 00:00:00 3024 [oz_av] [facility] Body height 2022-04-22 14:15:00 157[facility]5 [facility] Body weight 2022-04-22 14:15:00 82.555 kg [facility] BMI 2022-04-22 14:15:00 33.29 kg/m2 [facility] BP Diastolic 2022-03-07 00:00:00 72 mm[Hg] [facility] Height 2022-03-07 00:00:00 68 [in_i] [facility] BMI (Body Mass Index) 2022-03-07 00:00:00 29.3 kg/m2 [facility] BP Systolic 2022-03-07 00:00:00 116 mm[Hg] [facility] Body Weight 2022-03-07 00:00:00 3088 [oz_av] [facility] BP Diastolic 2021-12-06 00:00:00 62 mm[Hg] [facility] Height 2021-12-06 00:00:00 68 [in_i] [facility] BMI (Body Mass Index) 2021-12-06 00:00:00 29.2 kg/m2 [facility] BP Systolic 2021-12-06 00:00:00 108 mm[Hg] [facility] Body Weight 2021-12-06 00:00:00 3072 [oz_av] [facility] BP Diastolic 2021-10-30 00:00:00 70 mm[Hg] [facility] Height 2021-10-30 00:00:00 68 [in_i] [facility] BMI (Body Mass Index) 2021-10-30 00:00:00 29.2 kg/m2 [facility] BP Systolic 2021-10-30 00:00:00 112 mm[Hg] [facility] Body Weight 2021-10-30 00:00:00 3072 [oz_av] [facility] BP Diastolic 2021-10-15 00:00:00 82 mm[Hg] [facility] Height 2021-10-15 00:00:00 68 [in_i] [facility] BMI (Body Mass Index) 2021-10-15 00:00:00 29.3 kg/m2 [facility] BP Systolic 2021-10-15 00:00:00 116 mm[Hg] [facility] Body Weight 2021-10-15 00:00:00 3088 [oz_av] [facility] BP Diastolic 2021-10-02 00:00:00 78 mm[Hg] [facility] Height 2021-10-02 00:00:00 68 [in_i] [facility] BP Systolic 2021-10-02 00:00:00 116 mm[Hg] [facility] Height 2021-05-07 00:00:00 68 [in_i] [facility] BP Diastolic 2021 00:00:00 62 mm[Hg] [facility] Height 2021 00:00:00 68 [in_i] [facility] BMI (Body Mass Index) 2021 00:00:00 29.6 kg/m2 [facility] BP Systolic 2021 00:00:00 106 mm[Hg] [facility] Body Weight 2021 00:00:00 3112 [oz_av] [facility] BP Diastolic 2021-01-02 00:00:00 62 mm[Hg] [facility] Height 2021-01-02 00:00:00 68 [in_i] [facility] BMI (Body Mass Index) 2021-01-02 00:00:00 29.3 kg/m2 [facility] BP Systolic 2021-01-02 00:00:00 102 mm[Hg] [facility] Body Weight 2021-01-02 00:00:00 3088 [oz_av] [facility] BP Diastolic 2020-10-03 00:00:00 82 mm[Hg] [facility] Height 2020-10-03 00:00:00 68 [in_i] [facility] BMI (Body Mass Index) 2020-10-03 00:00:00 30 kg/m2 [facility] BP Systolic 2020-10-03 00:00:00 128 mm[Hg] [facility] Body Weight 2020-10-03 00:00:00 3152 [oz_av] [facility] Procedures Procedure Date / Time Performed Performing Clinician Source [id number] 2023-08-19 00:00:00 GREBR.01 [facility] [id number] 2023-08-19 00:00:00 GREBR.01 [facility] [id number] 2023-08-19 00:00:00 GREBR.01 [facility] [id number] 2023-08-19 00:00:00 [facility]BR.01 [facility] [id number] 2023-08-19 00:00:00 GREBR.01 [facility] [id number] 2023-08-19 00:00:00 GREBR.01 [facility] [id number] 2023-08-19 00:00:00 GREBR.01 [facility] [id number] 2023-08-19 00:00:00 GREBR.01 [facility] [id number] 2023-08-19 00:00:00 GREBR.01 [facility] [id number] 2023-08-18 00:00:00 GREBR.01 [facility] [id number] 2023-08-18 00:00:00 GREBR.01 [facility] [id number] 2023-08-13 00:00:00 POREY [facility] [id number] 2023-08-13 00:00:00 POREY [facility] [id number] 2023-08-13 00:00:00 P[facility]Y [facility] [id number] 2023-08-13 00:00:00 [facility]Y [facility] [id number] 2023-08-13 00:00:00 P[facility]Y [facility] [id number] 2023-08-13 00:00:00 [facility]Y [facility] [id number] 2023-08-13 00:00:00 [facility]Y [facility] [id number] 2023-08-13 00:00:00 POREY [facility] [id number] 2023-08-13 00:00:00 ROXANA [facility] [id number] 2023-08-13 00:00:00 ROXANA [facility] [id number] 2023-08-13 00:00:00 YOUELIECER [facility] [id number] 2023-08-13 00:00:00 ROXANA [facility] [id number] 2021-12-15 [id number] 2021-12-15 00:00:00 [facility] [id number] 2021-12-15 00:00:00 [facility] CT, neck, w/o contrast 2021-10-02 00:00:[address] [facility] [address], head, w/o contrast 2021-10-02 00:00:[address] [facility] [address], cervical spine, w/o contrast 2021-10-02 00:00:00 [facility] Cardiac Pacemaker Procedure [facility] Prostatectomy (Turp) [facility] Cholecystectomy [facility] Shoulder Joint Surgery [facility] Total Replacement of Hip [facility] Knee Surgery [facility] Encounters Start Date/Time End Date/Time Encounter Type Admission Type Attending Clinicians Care Facility Care Department Encounter ID Source 2022-10-15 11:25:24 Outpatient [facility] [id number] [facility] 2022-04-22 08:37:07 Outpatient [facility] [id number] [facility] 2022-04-18 09:41:06 Outpatient [facility] [id number] [facility] 2022-04-17 09:44:45 Outpatient [facility] [id number] [facility] 2024-01-16 16:00:00 2024-01-16 23:59:00 Outpatient DERIK COSME [facility] [id number] [facility] 2024-01-12 00:00:00 2024-01-12 12:12:04 Outpatient [facility] [id number] [facility] 2024-01-12 10:30:00 2024-01-12 12:11:34 Office Visit Derik Cosme [facility] 2 [id number] [facility] 2024-01-08 08:15:00 2024-01-08 08:15:00 Outpatient ARNETT ZACKERY [facility] [id number] [facility] 2024-01-06 00:00:00 2024-01-06 00:00:00 TOSHIA MaguireC: [address], [place] [address] , Ph. [phone] [facility], [facility], GEORGE- [id number] 611 [facility] 2023-12-24 00:00:00 2023-12-24 00:00:00 ARCADIO Maguire: [address], [place] [address] , Ph. [phone] [facility], [facility], ROD GREASER-C [id number] [facility] 2023-12-09 00:00:00 2023-12-09 00:00:00 [facility] [address], [place] [address] , Ph. [facility] [id number] 514 [facility] 2023-08-26 19:07:00 2023-09-06 11:34:00 Inpatient 3 DEBBIE ALEJANDRA ENCPL CRD [id number] [facility] Fantasma louie 2023-08-09 15:50:00 2023-08-26 18:17:00 [facility] [id number] [facility] 2023-08-09 19:13:00 2023-08-09 19:13:00 Outpatient UNKNOWN [facility] LABO [id number] [facility] 2023-08-09 19:12:00 2023-08-09 19:12:00 Outpatient Tony Guatam [facility] REF [id number] [facility] 2023-08-09 07:15:00 2023-08-09 07:15:00 Outpatient Deyvi Sanchez [facility] [id number] [facility] 2023-08-09 07:15:00 2023-08-09 07:15:00 Outpatient Deyvi Sanchez [facility] [id number] [facility] 2023-08-05 06:03:00 2023-08-07 11:01:00 Inpatient Alvaro Jefferson [facility].02 [id number] [facility] 2023-06-16 00:00:00 2023-06-16 00:00:00 Criselda Grier, ROD GREASER-C: [address], [place] [address] , Ph. [phone] [facility], [facility]. CARRERO [id number] [facility] 2023-06-13 00:00:00 2023-06-13 00:00:00 Outpatient ERICKSON_R [facility] [id number] [facility] 2023-04-14 00:00:00 2023-04-14 00:00:00 Outpatient ERICK[facility]_R [facility] [id number] [place] [facility] 2023-04-14 00:00:00 2023-04-14 00:00:00 Outpatient ERICK[facility]_R [facility] [id number] [facility] 2023-04-14 00:00:00 2023-04-14 00:00:00 Jamari Carrero, DO: [place] [address] , Ph. [facility], DR. CARRERO [id number] [facility] 2023-03-08 00:00:00 2023-03-08 00:00:00 Out[address] ERICK[facility]_R [facility] [id number] [facility] 2023-02-11 00:00:00 2023-02-11 00:00:00 Jamari Carrero, DO: [place] [address] , Ph. [facility], DR. CARRERO [id number] [facility] 2023-01-24 00:00:00 2023-01-24 00:00:00 Out[address] [facility]_R [facility] [id number] [facility] 2023-01-12 00:00:00 2023-01-12 00:00:00 [address] [facility]_R [facility] [id number] [facility] 2022-12-20 00:00:00 2022-12-20 00:00:00 [address] [facility]_R [facility] [id number] [facility] 2022-12-12 00:00:00 2022-12-12 00:00:00 Jamari Carrero, DO: [place] [address] , Ph. [phone] [facility], DR. CARRERO [id number] [facility] 2022-12-08 00:00:00 2022-12-08 00:00:00 [address] [facility]_R [facility] [id number] [facility] 2022-12-08 00:00:00 2022-12-08 00:00:00 [address] [facility]_R [facility] [id number] [facility] 2022-09-09 00:00:00 2022-09-09 00:00:00 Jamari Carrero, DO: [address], [place] [address] , Ph. [facility], DR. CARRERO [id number] [facility] 2022-08-20 00:00:00 2022-08-20 00:00:00 [address] [facility]_R [facility] [id number] [facility] 2022-07-15 00:00:00 2022-07-15 00:00:00 [address] [facility]_R [facility] [id number] [facility] 2022-07-15 00:00:00 2022-07-15 00:00:00 [address] [facility]_R [facility] [id number] [facility] 2022-07-15 00:00:00 2022-07-15 00:00:00 Jamari Carrero, DO: Alvin Saul, SHANEL Aguilar [address] , Ph. [facility], DR. CARRERO [id number] [facility] 2022-06-06 00:00:00 2022-06-06 00:00:00 [address] [facility]_R [facility] [id number] [facility] 2022-06-06 00:00:00 2022-06-06 00:00:00 Jamari Carrero, DO: [place] [address] , Ph. [facility], DR. CARRERO [id number] [facility] 2022-04-22 00:00:00 2022-04-22 12:05:51 Outpatient [facility] [id number] [facility] 2022-04-22 09:00:00 2022-04-22 09:36:16 Office Visit Fernando Harris [facility] 2 [id number] [facility] 2022-03-11 00:00:00 2022-03-11 00:00:00 [address] MAGAN_Ada [facility] [id number] [facility] 2022-03-07 00:00:00 2022-03-07 00:00:00 [address] ER[address]OLON_R [facility] [id number] [facility] 2022-03-07 00:00:00 2022-03-07 00:00:00 Jamari Carrero, DO: [address] [place] [address] , Ph. [facility], DR. CARRERO [id number] [facility] 2022-03-07 00:00:00 2022-03-07 00:00:[address] [facility] [id number] 2022-01-04 11:16:00 2022-01-04 11:16:00 [address] MAG[address]_R [facility] [id number] [facility] 2021-12-13 17:13:00 2021-12-16 13:23:00 Inpatient Alvaro [place] [facility] INTE.02 [id number] [facility] 2021-12-13 17:13:00 2021-12-16 13:23:00 Inpatient Alvaro [place] [facility] INTE.02 [id number] [facility] 2021-12-06 02:18:00 2021-12-06 02:18:00 [address] [facility]_R [facility] [id number] [facility] 2021-12-06 00:00:00 2021-12-06 00:00:00 Jamari Carrero, DO: [address] [place] [address] , Ph. [phone] [facility], DR. CARRERO [id number] [facility] 2021-12-06 00:00:00 2021-12-06 00:00:[address] [facility] [id number] 2021-11-20 10:33:00 2021-11-20 10:33:00 [address] [facility]_R [facility] [id number] [facility] 2021-10-30 12:00:00 2021-10-30 12:00:00 [address] [facility]_R [facility] [id number] [facility] 2021-10-30 00:00:00 2021-10-30 00:00:00 Jamari Carrero, DO: [address] [place] [address] , Ph. [phone] [facility], DR. CARRERO [id number] [facility] 2021-10-30 00:00:00 2021-10-30 00:00:[address] [facility] [id number] 2021-10-15 11:27:00 2021-10-15 11:27:00 Out[address] [facility]_R [facility] [id number] [facility] 2021-10-15 00:00:00 2021-10-15 00:00:00 Jamari Carrero, DO: [address] [place] [address] , Ph. [phone] [facility], DR. CARRERO [id number] [facility] 2021-10-15 00:00:00 2021-10-15 00:00:[address] [facility] [id number] 2021-10-02 12:47:00 2021-10-02 12:47:00 Out[address] ER[address]_R [facility] [id number] [facility] 2021-10-02 00:00:00 2021-10-02 00:00:00 Jamari Carrero, DO: [address] [place] [address] , Ph. [facility], DR. CARRERO [id number] [facility] 2021-10-02 00:00:00 2021-10-02 00:00:[address] [facility] [id number] 2021-10-02 00:00:00 2021-10-02 00:00:[address] [facility] [id number] 2021-07-17 10:14:00 2021-07-17 10:14:00 Out[address] [facility]_R [facility] [id number] [place] [facility] 2021-07-17 00:00:00 2021-07-17 00:00:00 Jamari Carrero, DO: [address], [place] [address] , Ph. [facility], DR. CARRERO [id number] [facility] 2021-05-07 11:42:00 2021-05-07 11:42:00 [address] [facility]_R [facility] [id number] [facility] 2021-05-07 00:00:00 2021-05-07 00:00:00 Jamari Carrero, DO: [address], [place] [address] , Ph. [phone] [facility], DR. CARRERO [id number] [facility] 2021 10:54:00 2021 10:54:00 [address] [facility]R [facility] [id number] [facility] 2021 00:00:00 2021 00:00:[address] [facility] [id number] 2021 00:00:00 2021 00:00:00 Jamari Carrero, DO: [address], [place] [address] , Ph. [facility], DR. CARRERO [id number] [facility] 2021-02-20 12:57:00 2021-02-20 12:57:00 [address] [facility]_R [facility] [id number] [facility] 2021-01-02 10:21:00 2021-01-02 10:21:00 [address] [facility]R [facility] [id number] [facility] 2021-01-02 00:00:00 2021-01-02 00:00:[address] [facility] [id number] 2021-01-02 00:00:00 2021-01-02 00:00:00 Jamari Carrero, DO: [address], [place] [address] , Ph. [phone] [facility], DR. CARRERO [id number] [facility] 2020-10-03 09:55:00 2020-10-03 09:55:00 Out[address] MAGAN_R [facility] [id number] [facility] 2020-10-03 00:00:00 2020-10-03 00:00:[address] [facility] [id number] 2020-10-03 00:00:00 2020-10-03 00:00:00 Jamari Carrero, DO: [address], [place] [address] , Ph. [facility], DR. CARRERO [id number] [facility] 2020-08-01 08:35:00 2020-08-01 08:35:00 Out[address] [facility]_R [facility] [id number] [facility] Results Test Description Test Time Test Comments Results Result Co mments Source [facility]2024-02-05 11:35:00* Test Item Value Reference Range Interpretation Comme nts LD (test code = 56032929) 212 U/L 120-250 N [facility]FF[facility]PLT[facility]2023-09-01 11:35:00* Test Item Value Reference Range Interpretation Comme nts WHITE BLOOD CELL COUNT (test code = 82210565) 10.1 Thousand/uL 3.8-10.8 N RED BLOOD CELL COUNT (test code = 62230692) 2.85 Million/uL 4.20-5.80 L HEMOGLOBIN (test code = 04773149) 9.1 g/dL 13.2-17.1 L HEMATOCRIT (test code = 40461203) 27.6 % 38.5-50.0 L MCV (test code = 98984285) 96.8 fL 80.0-100.0 N MCH (test code = 83709089) 31.9 pg 27.0-33.0 N MCHC (test code = 80922303) 33.0 g/dL 32.0-36.0 N RDW (test code = 11235937) 19.5 % 11.0-15.0 H PLATELET COUNT (test code = 35736187) 216 Thousand/uL 140-400 N MPV (test code = 98592076) 9.7 fL 7.5-12.5 N ABSOLUTE NEUTROPHILS (test code = 62434283) 7464 cells/uL 8460-8313 N ABSOLUTE LYMPHOCYTES (test code = 31483565) 1273 cells/uL 850-3900 N ABSOLUTE MONOCYTES (test code = 98839394) 1091 cells/uL 200-950 H ABSOLUTE EOSINOPHILS (test code = 58891454) 202 cells/uL 15-500 N ABSOLUTE BASOPHILS (test code = 25258839) 71 cells/uL 0-200 N NEUTROPHILS (test code = 71873898) 73.9 % N LYMPHOCYTES (test code = 30410275) 12.6 % N MONOCYTES (test code = 97292150) 10.8 % N EOSINOPHILS (test code = 28596777) 2.0 % N BASOPHILS (test code = 66894019) 0.7 % N [facility] MET [id number] 14:34:00* Test Item Value Reference Range Interpretation Comme nts GLUCOSE (test code = 60773651) 97 mg/dL 65-99 N Fasting referenc e interval UREA NITROGEN (BUN) (test code = 35870477) 18 mg/dL 7-25 N CREATININE (test code = 75937639) 1.05 mg/dL 0.70-1.22 N EGFR (test code = 27015585) 68 mL/min/1.73m2 >=60 N BUN/CREATININE RATIO (test code = 34198610) SEE NOTE: (calc) 6-22 N Not Reported: BUN and Creatinine are within reference range. SODIUM (test code = 08368144) 134 mmol/L 135-146 L POTASSIUM (test code = 77676126) 4.7 mmol/L 3.5-5.3 N CHLORIDE (test code = 52514807) 96 mmol/L 98-110 L CARBON DIOXIDE (test code = 96335485) 30 mmol/L 20-32 N CALCIUM (test code = 97419467) 8.3 mg/dL 8.6-10.3 L [facility] FUNCTION [id number] 14:34:00* Test Item Value Reference Range Interpretation Comme nts PROTEIN, TOTAL (test code = 27490563) 5.9 g/dL 6.1-8.1 L ALBUMIN (test code = 43597207) 3.1 g/dL 3.6-5.1 L GLOBULIN (test code = 52171679) 2.8 g/dL (calc) 1.9-3.7 N ALBUMIN/GLOBULIN RATIO (test code = 35635640) 1.1 (calc) 1.0-2.5 N BILIRUBIN, TOTAL (test code = 49991054) 1.8 mg/dL 0.2-1.2 H BILIRUBIN, DIRECT (test code = 91744452) 0.5 mg/dL 0.0-0.2 H BILIRUBIN, INDIRECT (test code = 67814802) 1.3 mg/dL (calc) 0.2-1.2 H ALKALINE PHOSPHATASE (test code = 82577220) 90 U/L 35-144 N AST (test code = 11886344) 15 U/L 10-35 N ALT (test code = 35713877) 12 U/L 9-46 N [facility]ITAL[facility] META [id number] 12:22:00* Test Item Value Reference Range Interpretation Comme nts GLUCOSE (test code = 47546091) 90 mg/dL 65-99 N Fasting referenc e interval UREA NITROGEN (BUN) (test code = 65351445) 20 mg/dL 7-25 N CREATININE (test code = 09330703) 1.08 mg/dL 0.70-1.22 N EGFR (test code = 83531258) 66 mL/min/1.73m2 >=60 N BUN/CREATININE RATIO (test code = 29462526) SEE NOTE: (calc) 6-22 N Not Reported: BUN and Creatinine are within reference range. SODIUM (test code = 81257874) 134 mmol/L 135-146 L POTASSIUM (test code = 06986271) 4.4 mmol/L 3.5-5.3 N CHLORIDE (test code = 46738467) 98 mmol/L 98-110 N CARBON DIOXIDE (test code = 72552248) 28 mmol/L 20-32 N CALCIUM (test code = 46905511) 7.9 mg/dL 8.6-10.3 L PROTEIN, TOTAL (test code = 41996551) 5.6 g/dL 6.1-8.1 L ALBUMIN (test code = 19273302) 2.8 g/dL 3.6-5.1 L GLOBULIN (test code = 35890863) 2.8 g/dL (calc) 1.9-3.7 N ALBUMIN/GLOBULIN RATIO (test code = 93332623) 1.0 (calc) 1.0-2.5 N BILIRUBIN, TOTAL (test code = 66484055) 1.5 mg/dL 0.2-1.2 H ALKALINE PHOSPHATASE (test code = 22947426) 76 U/L 35-144 N AST (test code = 73938982) 16 U/L 10-35 N ALT (test code = 53599269) 11 U/L 9-46 N [facility] WITH [id number] 12:22:00* Test Item Value Reference Range Interpretation Comme nts INR (test code = 63662809) 1.3 H Reference Range 0.9-1.1Moderate-intensity Warfarin Therapy 2.0-3.0Higher-intensity Warfarin Therapy 3.0-4.0 PT (test code = 49153906) 13.1 sec 9.0-11.5 H For additional information, please refer tohttp://education.[employer].com/faq/DUZ801 (This link is being provided for informational/educational purposes only.) [facility]FF/PLT)2023-08-28 12:22:00* Test Item Value Reference Range Interpretation Comme nts WHITE BLOOD CELL COUNT (test code = 25179089) 8.7 Thousand/uL 3.8-10.8 N RED BLOOD CELL COUNT (test code = 59373606) 2.70 Million/uL 4.20-5.80 L HEMOGLOBIN (test code = 02693739) 8.4 g/dL 13.2-17.1 L HEMATOCRIT (test code = 86130882) 25.5 % 38.5-50.0 L MCV (test code = 17622118) 94.4 fL 80.0-100.0 N MCH (test code = 51088239) 31.1 pg 27.0-33.0 N MCHC (test code = 33042342) 32.9 g/dL 32.0-36.0 N RDW (test code = 07929705) 19.9 % 11.0-15.0 H PLATELET COUNT (test code = 27045041) 363 Thousand/uL 140-400 N MPV (test code = 09489600) 9.4 fL 7.5-12.5 N ABSOLUTE NEUTROPHILS (test code = 79149151) 6308 cells/uL 7647-6256 N ABSOLUTE LYMPHOCYTES (test code = 55837849) 1148 cells/uL 850-3900 N ABSOLUTE MONOCYTES (test cod e = 40734968) 914 cells/uL 200-950 N ABSOLUTE EOSINOPHILS (test code = 30276578) 270 cells/uL 15-500 N ABSOLUTE BASOPHILS (test cod e = 14259513) 61 cells/uL 0-200 N NEUTROPHILS (test code = 76924485) 72.5 % N LYMPHOCYTES (test code = 62821818) 13.2 % N MONOCYTES (test code = 06451535) 10.5 % N EOSINOPHILS (test code = 97564550) 3.1 % N BASOPHILS (test code = 31230472) 0.7 % N [facility]ITAL[facility] META [id number] 16:28:00* Test Item Value Reference Range Interpretation Comme nts GLUCOSE (test code = 92227876) 90 mg/dL 65-99 N Fasting referenc e interval UREA NITROGEN (BUN) (test code = 48937952) 22 mg/dL 7-25 N CREATININE (test code = 23341058) 1.03 mg/dL 0.70-1.22 N EGFR (test code = 41672393) 70 mL/min/1.73m2 >=60 N BUN/CREATININE RATIO (test code = 42309538) SEE NOTE: (calc) 6-22 N Not Reported: BUN and Creatinine are within reference range. SODIUM (test code = 88356333) 136 mmol/L 135-146 N POTASSIUM (test code = 89567678) 4.4 mmol/L 3.5-5.3 N CHLORIDE (test code = 50832750) 98 mmol/L 98-110 N CARBON DIOXIDE (test code = 37052629) 30 mmol/L 20-32 N CALCIUM (test code = 35187211) 7.7 mg/dL 8.6-10.3 L PROTEIN, TOTAL (test code = 85401734) 5.4 g/dL 6.1-8.1 L ALBUMIN (test code = 93691373) 2.7 g/dL 3.6-5.1 L GLOBULIN (test code = 98200408) 2.7 g/dL (calc) 1.9-3.7 N ALBUMIN/GLOBULIN RATIO (test code = 73138362) 1.0 (calc) 1.0-2.5 N BILIRUBIN, TOTAL (test code = 37485573) 1.2 mg/dL 0.2-1.2 N ALKALINE PHOSPHATASE (test code = 51504370) 72 U/L 35-144 N AST (test code = 24355917) 15 U/L 10-35 N ALT (test code = 21094605) 12 U/L 9-46 N [facility] TIME WITH [id number] 16:28:00* Test Item Value Reference Range Interpretation Comme nts INR (test code = 91832618) 1.2 H Reference Range 0.9-1.1Moderate-intensity Warfarin Therapy 2.0-3.0Higher-intensity Warfarin Therapy 3.0-4.0 PT (test code = 84082715) 12.4 sec 9.0-11.5 H For additional information, please refer tohttp://education.[employer]/faq/VYZ220 (This link is being provided for informational/educational purposes only.) [facility] (DIFF/PLT)2023-08-27 16:28:00* Test Item Value Reference Range Interpretation Comme nts WHITE BLOOD CELL COUNT (test code = 82454300) 9.6 Thousand/uL 3.8-10.8 N RED BLOOD CELL COUNT (test code = 31785688) 2.67 Million/uL 4.20-5.80 L HEMOGLOBIN (test code = 46589913) 8.3 g/dL 13.2-17.1 L HEMATOCRIT (test code = 47498489) 25.3 % 38.5-50.0 L MCV (test code = 60234347) 94.8 fL 80.0-100.0 N MCH (test code = 36121531) 31.1 pg 27.0-33.0 N MCHC (test code = 20482232) 32.8 g/dL 32.0-36.0 N RDW (test code = 53259065) 20.1 % 11.0-15.0 H PLATELET COUNT (test code = 91880365) 363 Thousand/uL 140-400 N MPV (test code = 46200488) 9.8 fL 7.5-12.5 N ABSOLUTE NEUTROPHILS (test code = 29087088) 7354 cells/uL 3282-3017 N ABSOLUTE LYMPHOCYTES (test code = 93477418) 1056 cells/uL 850-3900 N ABSOLUTE MONOCYTES (test cod e = 04643743) 912 cells/uL 200-950 N ABSOLUTE EOSINOPHILS (test code = 76719889) 240 cells/uL 15-500 N ABSOLUTE BASOPHILS (test cod e = 36339250) 38 cells/uL 0-200 N NEUTROPHILS (test code = 58817811) 76.6 % N LYMPHOCYTES (test code = 06083716) 11.0 % N MONOCYTES (test code = 56511561) 9.5 % N EOSINOPHILS (test code = 27631782) 2.5 % N BASOPHILS (test code = 08158355) 0.4 % N [facility] [id number] 06:05:00* Test Item Value Reference Range Interpretation [...] ALKP) 72.0 U/L 46-116 N CBC W/AUTO [id number] 05:40:00* Test Item Value Reference Range Interpretation [...] 0.05 x10 3/uL 0.0-0.20 N BASIC METABOLIC [id number] 06:22:00* Test Item Value Reference Range Interpretation [...] CA) 8.2 mg/dL 8.7-10.4 L CBC W/AUTO [id number] 05:54:00* Test Item Value Reference Range Interpretation [...] = BA#) 0.04 x10 3/uL 0.0-0.20 N [id number] 20:51:00* Test Item Value Reference Range Interpretation Comme nts GLUBED (test code = GLUBED) 85 MG/DL 70-105 N BASIC METABOLIC [id number] 03:54:00* Test Item Value Reference Range Interpretation [...] code = CA) 8.0 mg/dL 8.7-10.4 L [id number] 03:54:00* Test Item Value Reference Range Interpretation Comme nts PHOSPHOROUS (test code = PHOS) 3.9 mg/dL 2.4-5.1 N [id number] 03:54:00* Test Item Value Reference Range Interpretation Comme nts MAGNESIUM (test code = MAG) 2.0 mg/dL 1.6-2.6 N CBC W/AUTO [id number] 03:43:00* Test Item Value Reference Range Interpretation [...] 0.04 x10 3/uL 0.0-0.20 N BASIC METABOLIC [id number] 04:44:00* Test Item Value Reference Range Interpretation [...] code = CA) 7.8 mg/dL 8.7-10.4 L [id number] 04:44:00* Test Item Value Reference Range Interpretation Comme nts PHOSPHOROUS (test code = PHOS) 3.4 mg/dL 2.4-5.1 N [id number] 04:44:00* Test Item Value Reference Range Interpretation Comme nts MAGNESIUM (test code = MAG) 1.9 mg/dL 1.6-2.6 N CBC W/AUTO [id number] 04:37:00* Test Item Value Reference Range Interpretation [...] 0.05 x10 3/uL 0.0-0.20 N BASIC METABOLIC [id number] 04:18:00* Test Item Value Reference Range Interpretation [...] 7.8 mg/dL 8.7-10.4 L ADD ON TEST? [id number] 04:18:00* Test Item Value Reference Range Interpretation Comme nts PHOSPHOROUS (test code = PHOS) 2.9 mg/dL 2.4-5.1 N ADD ON TEST? [id number] 04:18:00* Test Item Value Reference Range Interpretation Comme nts MAGNESIUM (test code = MAG) 1.9 mg/dL 1.6-2.6 N ADD ON TEST? YesCBC W/O [id number] 03:57:00* Test Item Value Reference Range Interpretation [...] 189 x10 3/uL 150-440 N BASIC METABOLIC [id number] 17:27:00* Test Item Value Reference Range Interpretation [...] code = CA) 8.1 mg/dL 8.7-10.4 L [id number] 17:27:00* Test Item Value Reference Range Interpretation Comme nts PHOSPHOROUS (test code = PHOS) 2.8 mg/dL 2.4-5.1 N [id number] 17:27:00* Test Item Value Reference Range Interpretation Comme nts MAGNESIUM (test code = MAG) 2.0 mg/dL 1.6-2.6 N [id number] 05:57:00* Test Item Value Reference Range Interpretation Comme nts PHOSPHOROUS (test code = PHOS) 2.6 mg/dL 2.4-5.1 N [id number] 05:57:00* Test Item Value Reference Range Interpretation Comme nts MAGNESIUM (test code = MAG) 2.1 mg/dL 1.6-2.6 N BASIC METABOLIC [id number] 05:57:00* Test Item Value Reference Range Interpretation [...] CA) 8.2 mg/dL 8.7-10.4 L CBC W/AUTO [id number] 05:39:00* Test Item Value Reference Range Interpretation [...] 0.03 x10 3/uL 0.0-0.20 N BASIC METABOLIC [id number] 16:39:00* Test Item Value Reference Range Interpretation [...] code = CA) 7.8 mg/dL 8.7-10.4 L [id number] 16:39:00* Test Item Value Reference Range Interpretation Comme nts PHOSPHOROUS (test code = PHOS) 2.4 mg/dL 2.4-5.1 N [id number] 16:39:00* Test Item Value Reference Range Interpretation Comme nts MAGNESIUM (test code = MAG) 2.0 mg/dL 1.6-2.6 N BASIC METABOLIC [id number] 04:19:00* Test Item Value Reference Range Interpretation [...] code = CA) 8.2 mg/dL 8.7-10.4 L [id number] 04:19:00* Test Item Value Reference Range Interpretation Comme nts PHOSPHOROUS (test code = PHOS) 2.8 mg/dL 2.4-5.1 N [id number] 04:19:00* Test Item Value Reference Range Interpretation Comme nts MAGNESIUM (test code = MAG) 2.2 mg/dL 1.6-2.6 N CBC W/AUTO [id number] 04:04:00* Test Item Value Reference Range Interpretation [...] 0.01 x10 3/uL 0.0-0.20 N BASIC METABOLIC [id number] 14:06:00* Test Item Value Reference Range Interpretation [...] code = CA) 8.1 mg/dL 8.7-10.4 L [id number] 14:06:00* Test Item Value Reference Range Interpretation Comme nts MAGNESIUM (test code = MAG) 2.1 mg/dL 1.6-2.6 N BASIC METABOLIC [id number] 03:57:00* Test Item Value Reference Range Interpretation [...] code = CA) 7.8 mg/dL 8.7-10.4 L [id number] 03:57:00* Test Item Value Reference Range Interpretation Comme nts MAGNESIUM (test code = MAG) 1.9 mg/dL 1.6-2.6 N CBC W/AUTO [id number] 03:33:00* Test Item Value Reference Range Interpretation [...] 0.02 x10 3/uL 0.0-0.20 N BASIC METABOLIC [id number] 19:42:00* Test Item Value Reference Range Interpretation [...] code = CA) 6.2 mg/dL 8.7-10.4 L [id number] 19:42:00* Test Item Value Reference Range Interpretation Comme nts MAGNESIUM (test code = MAG) 1.6 mg/dL 1.6-2.6 N BASIC METABOLIC [id number] 14:11:00* Test Item Value Reference Range Interpretation [...] code = CA) 8.6 mg/dL 8.7-10.4 L [id number] 14:11:00* Test Item Value Reference Range Interpretation Comme nts PHOSPHOROUS (test code = PHOS) 4.2 mg/dL 2.4-5.1 N [id number] 14:11:00* Test Item Value Reference Range Interpretation Comme nts MAGNESIUM (test code = MAG) 2.1 mg/dL 1.6-2.6 N [id number] 09:06:00* Test Item Value Reference Range Interpretation Comme nts PHOSPHOROUS (test code = PHOS) 4.3 mg/dL 2.4-5.1 N Comment: PLEASE USE SPECIMEN IN LABBASIC METABOLIC [id number] 03:47:00* Test Item Value Reference Range Interpretation [...] CA) 9.1 mg/dL 8.7-10.4 N LIVER FUNCTION [id number] 03:47:00* Test Item Value Reference Range Interpretation [...] ode = ALKP) 49.0 U/L 46-116 N [id number] 03:47:00* Test Item Value Reference Range Interpretation Comme [facility] MAGNESIUM (test code = MAG) 2.0 mg/dL 1.6-2.6 N PROTHROMBIN [id number] 03:44:00* Test Item Value Reference Range Interpretation Comme [facility] PROTHROMBIN TIME PATIENT (test code = [...] systemic anticoagulation for high-risk conditions THROMBOPLASTIN TIME [id number] 03:44:00* Test Item Value Reference Range Interpretation Comme [facility] THROMBOPLASTIN TIME PARTIAL (test code = PTT) 26.2 secs 23.8-34.8 N INTERPRETATIVE D CELENA: Therapeutic range: Unfractionated Heparin: 60-90 seconds Argatroban: 60-90 seconds [id number] 03:44:00* Test Item Value Reference Range Interpretation Comme [facility] FIBRINOGEN (test code = FIB) 396 mg/dL 200-400 N LACTIC [id number] 03:42:00* Test Item Value Reference Range Interpretation Comme [facility] LACTIC ACID (test code = LACT) 2.70 mmol/L 0.5-2.0 HH Critical Value r eported toFirst Name:JESSICA Cesar Name:KIRIT READ BACK AND VERIFIEDby [id number], on 08/14/23, @ 0342. CBC W/AUTO [id number] 03:31:00* Test Item Value Reference Range Interpretation Comme [facility] WHITE BLOOD CELL (test code = [...] 0.01 x10 3/uL 0.0-0.20 N BLOOD GAS W/[id number] 01:47:00* Test Item Value Reference Range Interpretation [...] TCO2A) 25.1 MMOL/L 24-30 N BLOOD GAS W/[id number] 23:41:00* Test Item Value Reference Range Interpretation [...] = TCO2A) 26.5 MMOL/L 24-30 N LACTIC [id number] 21:35:00* Test Item Value Reference Range Interpretation Comme nts LACTIC ACID (test code = LACT) 5.00 mmol/L 0.5-2.0 HH Critical Value r eported toFirst Name:JESSICA Cesar Name:KIRIT READ BACK AND VERIFIEDby [id number], on 08/13/23, @ 4100. BASIC METABOLIC [id number] 21:35:00* Test Item Value Reference Range Interpretation [...] code = CA) 9.7 mg/dL 8.7-10.4 N [id number] 21:35:00* Test Item Value Reference Range Interpretation Comme nts PHOSPHOROUS (test code = PHOS) 3.8 mg/dL 2.4-5.1 N [id number] 21:35:00* Test Item Value Reference Range Interpretation Comme nts MAGNESIUM (test code = MAG) 2.1 mg/dL 1.6-2.6 N PROTHROMBIN [id number] 21:17:00* Test Item Value Reference Range Interpretation [...] systemic anticoagulation for high-risk conditions THROMBOPLASTIN TIME [id number] 21:17:00* Test Item Value Reference Range Interpretation Comme nts THROMBOPLASTIN TIME PARTIAL (test code = PTT) 28.2 secs 23.8-34.8 N INTERPRETATIVE D CELENA: Therapeutic range: Unfractionated Heparin: 60-90 seconds Argatroban: 60-90 seconds [id number] 21:17:00* Test Item Value Reference Range Interpretation Comme nts FIBRINOGEN (test code = FIB) 317 mg/dL 200-400 N CBC W/AUTO [id number] 21:11:00* Test Item Value Reference Range Interpretation [...] 0.01 x10 3/uL 0.0-0.20 N BLOOD GAS W/[id number] 21:08:00* Test Item Value Reference Range Interpretation [...] TCO2A) 24.9 MMOL/L 24-30 N BLOOD GAS W/[id number] 17:52:00* Test Item Value Reference Range Interpretation [...] TCO2A) 20.9 MMOL/L 24-30 L BLOOD GAS W/[id number] 17:41:00* Test Item Value Reference Range Interpretation [...] = TCO2A) 20.6 MMOL/L 24-30 L PROTHROMBIN [id number] 17:12:00* Test Item Value Reference Range Interpretation [...] systemic anticoagulation for high-risk conditions THROMBOPLASTIN TIME [id number] 17:12:00* Test Item Value Reference Range Interpretation Comme [facility] THROMBOPLASTIN TIME PARTIAL (test code = PTT) 26.6 secs 23.8-34.8 N INTERPRETATIVE D CELENA: Therapeutic range: Unfractionated Heparin: 60-90 seconds Argatroban: 60-90 seconds LACTIC [id number] 16:32:00* Test Item Value Reference Range Interpretation Comme nts LACTIC ACID (test code = LACT) 4.80 mmol/L 0.5-2.0 HH Critical Value r eported toFirst Name:SREEDHAR Cesar Name:HOLLEY READ BACK AND VERIFIEDby [id number], on 08/13/23, @ 1632. BASIC METABOLIC [id number] 16:31:00* Test Item Value Reference Range Interpretation [...] code = CA) 9.2 mg/dL 8.7-10.4 N [id number] 16:31:00* Test Item Value Reference Range Interpretation Comme nts PHOSPHOROUS (test code = PHOS) 4.7 mg/dL 2.4-5.1 [id number] 16:31:00* Test Item Value Reference Range Interpretation Comme nts MAGNESIUM (test code = MAG) 2.2 mg/dL 1.6-2.6 N CBC W/AUTO [id number] 16:29:00* Test Item Value Reference Range Interpretation [...] BA#) 0.02 x10 3/uL 0.0-0.20 N PROTHROMBIN [id number] 15:28:00* Test Item Value Reference Range Interpretation [...] systemic anticoagulation for high-risk conditions THROMBOPLASTIN TIME [id number] 15:28:00* Test Item Value Reference Range Interpretation Comme [facility] THROMBOPLASTIN TIME PARTIAL (test code = PTT) 32.5 secs 23.8-34.8 INTERPRETATIVE D CELENA: Therapeutic range: Unfractionated Heparin: 60-90 seconds Argatroban: 60-90 seconds [id number] 15:28:00* Test Item Value Reference Range Interpretation Comme nts FIBRINOGEN (test code = FIB) 159 mg/dL 200-400 L CBC W/AUTO [id number] 15:12:00* Test Item Value Reference Range Interpretation [...] 0.04 x10 3/uL 0.0-0.20 N COAGULATION TIME [id number] 15:10:00* Test Item Value Reference Range Interpretation Comme nts COAGULATION TIME ACTIVATED ( test code = ACT) 136 SECONDS 74-137 N COAGULATION TIME [id number] 13:39:00* Test Item Value Reference Range Interpretation Comme nts COAGULATION TIME ACTIVATED ( test code = ACT) 131 SECONDS 74-137 N COAGULATION TIME [id number] 12:39:00* Test Item Value Reference Range Interpretation Comme nts COAGULATION TIME ACTIVATED ( test code = ACT) 428 SECONDS 74-137 H COAGULATION TIME [id number] 12:10:00* Test Item Value Reference Range Interpretation Comme nts COAGULATION TIME ACTIVATED ( test code = ACT) 515 SECONDS 74-137 H COAGULATION TIME [id number] 11:37:00* Test Item Value Reference Range Interpretation Comme nts COAGULATION TIME ACTIVATED ( test code = ACT) 466 SECONDS 74-137 H COAGULATION TIME [id number] 11:02:00* Test Item Value Reference Range Interpretation Comme nts COAGULATION TIME ACTIVATED ( test code = ACT) 450 SECONDS 74-137 H PROTHROMBIN [id number] 06:32:00* Test Item Value Reference Range Interpretation [...] systemic anticoagulation for high-risk conditions THROMBOPLASTIN TIME [id number] 06:32:00* Test Item Value Reference Range Interpretation Comme nts THROMBOPLASTIN TIME PARTIAL (test code = PTT) 25.6 secs 23.8-34.8 N INTERPRETATIVE D CELENA: Therapeutic range: Unfractionated Heparin: 60-90 seconds Argatroban: 60-90 seconds Novel Coronavirus 20:47:00* Test Item Value Reference Range Interpretation Comme nts Novel Coronavirus 2019 Inhouse (test code = [id number]) Negative Negative Positive resul ts are indicative of the presence fbRYNV-SlD-5 RNA, clinical correlation with patient historyand other [...] the qualitative detection of nucleic acids from pruWJSM-YtA-4 virus and diagnosis of SARS-CoV-2 virusinfection. It is an Emergency Use Authorization (EUA) testauthorized by the U.S. FDA. BASIC METABOLIC [id number] 19:19:00* Test Item Value Reference Range Interpretation [...] code = CA) 8.4 mg/dL 8.7-10.4 L [id number] 19:19:00* Test Item Value Reference Range Interpretation Comme nts PHOSPHOROUS (test code = PHOS) 3.2 mg/dL 2.4-5.1 N [id number] 19:19:00* Test Item Value Reference Range Interpretation Comme nts MAGNESIUM (test code = MAG) 1.7 mg/dL 1.6-2.6 N CBC W/AUTO [id number] 18:51:00* Test Item Value Reference Range Interpretation [...] 0.04 x10 3/uL 0.0-0.20 N COMPREHENSIVE METABOLIC [id number] 16:49:00* Test Item Value Reference Range Interpretation [...] ALKP) 57.0 U/L 46-116 N CBC W/AUTO [id number] 16:30:00* Test Item Value Reference Range Interpretation [...] x10 3/uL 0.0-0.20 N COVID 19 INHOUSE [id number] 17:12:00* Test Item Value Reference Range Interpretation Comme nts COVID 19 INHOUSE AG (test code = [id number]) NEGATIVE NEGATIVE Negative results , from patients [...] clinical signs and symptomsconsistent with COVID-19. PROTHROMBIN [id number] 08:09:00* Test Item Value Reference Range Interpretation [...] Infarction (to prevent recurrent infarct). COMPREHENSIVE METABOLIC [id number] 08:09:00* Test Item Value Reference Range Interpretation [...] = LDL) 66 MG/DL 0-129 N <100 XLEKOVK29 0 - 129 NEAR OPTIMAL/ABOVE RRXIGJG227 - 159 UECFMJXELB866 - 189 HIGH>OR= 190 VERY HIGHNOTE THAT GUIDELINES ARE PROVIDED BY NATIONAL CHOLESTEROLEDUCATION PROGRAM ADULT TREATMENT PANEL III LDL/HDL (test code = LDL/HDL) 1.04 Ratio See_Comment L [Automated messa ge] The system which generated this result transmitted reference range: 1.48-3.22 Avg. The reference range was not used to interpret this result as normal/abnormal. [id number] 08:09:00* Test Item Value Reference Range Interpretation Comme nts MAGNESIUM (test code = MAG) 2.0 MG/DL 1.8-2.4 N CBC W/AUTO [id number] 07:52:00* Test Item Value Reference Range Interpretation [...] code = NRBC#) 0.0 K/mm3 0.00-0.01 N [id number] 02:58:00* Test Item Value Reference Range Interpretation Comme nts TROPONIN-I (test code = TROPI) 0.962 NG/ML 0.012-0.033 CALLED TO ROCIO Dyson& READBACK ON 08/06/23 AT 0258 BY Shannan Hargrove BASIC METABOLIC [id number] 02:57:00* Test Item Value Reference Range Interpretation [...] = CA) 8.8 MG/DL 8.4-10.2 N PROTHROMBIN [id number] 02:22:00* Test Item Value Reference Range Interpretation [...] recurrent systemic embolism. 3.0 - 4.5 PTT [id number] 02:22:00* Test Item Value Reference Range Interpretation Comme nts PTT ACTIVATED (test code = APTT) 27.8 SECONDS 27.2-37.9 CBC W/AUTO [id number] 02:08:00* Test Item Value Reference Range Interpretation [...] K/mm3 0.0-0.1 N - CT HEAD/BRAIN W/O [id number] 20:00:00 [facility] 1935 Sex: M Patient Name: CHARLIE HART Unit No: [id number] EXAMS: CPT CODE: [id number] CT HEAD/BRAIN W/O CONT 69867 LOCATION: Q15 HISTORY: 88-year-old male presents with [...] H CTDI: DLP: Trnscrpt: 08/05/2023 (1999) GaneshRLA2 [facility] NAME: CHARLIE HART [id number] [address] PHYS: [place] [address] : 1935 AGE: 88 SEX: M LOC: JaciSAV Mitchell PHONE #: [phone] EXAM DATE: 08/05/2023 STATUS: ADM IN FAX #: [phone] RAD #: D/C DT PAGE1 Signed Report Patient Name: CHARLIE HART Unit No: [id number] EXAMS: CPT CODE: [id number] CT HEAD/BRAIN W/O CONT 55095 () Orig Print D/T: S: 08/05/2023 (2002) [facility] NAME: CHARLIE HART [id number] PHYS: [place] [address] : [birth year]AGE: 88 SEX: M LOC: STEVE Mitchell PHONE #: [phone] EXAM DATE: 08/05/2023 STATUS: ADM IN FAX #: [phone] RAD #: D/C DT PAGE 2 Signed ReportLIPOPROTEIN LDL [id number] 13:15:00* Test Item Value Reference Range Interpretation Comme [facility] LIPOPROTEIN LDL DIRECT (test code = LDLDIR) 65 mg/dL 100-129 L Refe rence Interval: mg/dL mmol/L --Optimal <100 <2.6Near/above optimal 100-129 2.6-3.3Borderline High 130-159 3.4-4.1High 160-189 4.1-4.9Very High >=190 >=4.9========= This LDL result is a direct measurement.========= [id number]-[id number] 13:15:00* Test Item Value Reference Range Interpretation Comme nts TROPONIN-I (test code = TROPI) 1.510 NG/ML 0.012-0.033 HH CALLED TO MORE Tyler,R& READBACK ON 08/05/23 AT 1112 BY Karen Sweeney [id number]-[id number] 13:01:00* Test Item Value Reference Range Interpretation Comme [facility] TROPONIN-I (test code = TROPI) 1.280 NG/ML 0.012-0.033 HH CALLED TO MORE Tyler,R& READBACK ON 08/05/23 AT 1301 BY Karen Sweeney PROTHROMBIN [id number] 11:06:00* Test Item Value Reference Range Interpretation Comme [facility] PROTHROMBIN TIME PATIENT (test code = [...] recurrent systemic embolism. 3.0 - 4.5 PTT [id number] 11:06:00* Test Item Value Reference Range Interpretation Comme [facility] PTT ACTIVATED (test code = APTT) > 400.0 SECONDS 27.2-37.9 HH CALLED TO MORE Tyler R& READBACK ON 08/05/23 AT 1106 BY Zackery Wagner COMPREHENSIVE METABOLIC [id number] 10:55:00* Test Item Value Reference Range Interpretation Comme [facility] SODIUM (test code = NA) 138 MMOL/L [...] 7.4 G/DL 6.2-7.6 N Ortho Clinical D iaTri[employer] has made us aware of newinformation regarding the potential interference ofEltrombopag (a bone marrow stimulant used to treatthrombocytonmenia and aplastic anemia) with specific assayson the [employer] 5600 of which Total Protein is one [...] 0818 BY Z.LAB.CAREASON: HEMOLYZEDNOTIFIED PATIENT CARE STAFF: [id number] 10:55:00* Test Item Value Reference Range Interpretation Comme nts PHOSPHOROUS (test code = PHOS) 3.8 MG/DL 2.5-4.5 N RECOLLECTION NEEDED ON 08/05/23 AT 0818 BY Z.LAB.CAREASON: HEMOLYZEDNOTIFIED PATIENT CARE STAFF: [id number] 10:55:00* Test Item Value Reference Range Interpretation Comme nts MAGNESIUM (test code = MAG) 1.8 MG/DL 1.6-2.3 N RECOLLECTION NEEDED ON 08/05/23 AT 0818 BY Z.LAB.CAREASON: HEMOLYZEDNOTIFIED PATIENT CARE STAFF: KIESHAR- XR CHEST [id number] 09:58:00 [facility] : 1935 Sex: M Patient Name: CHARLIE HART Unit No: [id number] EXAMS: CPT CODE: [id number] XR CHEST [id number] EXAMINATION: - XR CHEST 1V. LOCATION: B2. [...] RICH MERA RT Transcrpt Date/Tm/Trnsp: 08/05/2023 (0958) GaneshPR7 Orig Print D/T: S: 08/05/2023 (1001) [facility] NAME: CHARLIE HART [id number] [address] PHYS: [id number] - [place] [address] : 1935 AGE: 88 SEX: M LOC: STEVE Mitchell PHONE #: [phone] EXAM DATE: 08/05/2023 STATUS: ADM IN FAX #:[phone] RADIOLOGY NO: PAGE 1 Signed ReportPLATELET [id number] 09:54:00* Test Item Value Reference Range Interpretation Comme nts PLATELET COUNT (test code = PLT) 154 K/MM3 129-368 N CBC W/AUTO [id number] 07:40:00* Test Item Value Reference Range Interpretation [...] NRBC#) 0.00 K/mm3 0.0-0.1 N GLUCOSE BEDSIDE [id number] 11:56:00* Test Item Value Reference Range Interpretation Comme nts GLUCOSE BEDSIDE TESTING (pastora t code = GLUBED) 100 MG/DL 60-99 H BASIC METABOLIC [id number] 08:16:00* Test Item Value Reference Range Interpretation [...] CARE STAFF: JARROD 12/16/21 AT 0638 BY Julia Eli- XR CHEST [id number] 08:16:00 [facility] : 1935 Sex: M Patient Name: CHARLIE HART Unit No: [id number] EXAMS: CPT CODE: [id number] XR CHEST 1V 92226 Portable AP chest, 1 view Location Code: [...] (0816) tAURORARAO1 Orig Print D/T: S: 12/16/2021 (08) [facility] NAME: CHARLIE HART [id number] [address] PHYS: [place] [address] : 1935 AGE: 86 SEX: M LOC: Z.350 A PHONE #: [phone] EXAM DATE: 12/16/2021 STATUS: ADM IN FAX #: [phone] RADIOLOGY NO: PAGE 1 Signed ReportGLUCOSE BEDSIDE [id number] 08:11:00* Test Item Value Reference Range Interpretation Comme nts GLUCOSE BEDSIDE TESTING (pastora t code = GLUBED) 99 MG/DL 60-99 N CBC W/AUTO [id number] 08:08:00* Test Item Value Reference Range Interpretation [...] 12/16/21 AT 0639 BY Julia EliGLUCOSE BEDSIDE [id number] 20:24:00* Test Item Value Reference Range Interpretation Comme nts GLUCOSE BEDSIDE TESTING (pastora t code = GLUBED) 99 MG/DL 60-99 N GLUCOSE BEDSIDE [id number] 16:02:00* Test Item Value Reference Range Interpretation Comme nts GLUCOSE BEDSIDE TESTING (pastora t code = GLUBED) 117 MG/DL 60-99 H - XR CHEST [id number] 12:07:00 [facility] : 1935 Sex: M Patient Name: CHARLIE HART Unit No: [id number] EXAMS: CPT CODE: [id number] XR CHEST 1V 71644 HISTORY: Status post ICD Location: C3 COMPARISON:None FINDINGS: There is mild cardiomegaly. Aortic calcifications are present. Vascularity is borderline prominent. Left subclavian pacemaker is noted with tips overlying the RA and RV. No pneumothorax. IMPRESSION: 1. Cardiomegaly with mild vascular congestion. at 1207 Reported and signed by: Aquiles Powell MD CC: Deyvi Celis MD Technologist: MICHAEL Evans, RT(R) Transcrpt Date/Tm/Trnsp: 12/15/2021 (5551) tFARHEENR.RXC2 [facility] NAME: CHARLIE HART [id number] [address] PHYS:[place] [address] : 1935 AGE: 86 SEX: M LOC: Spencer350 A PHONE #: [phone] EXAM DATE: 12/15/2021 STATUS: ADM IN FAX #: [phone] RADIOLOGYNO: PAGE 1 Signed ReportGLUCOSE BEDSIDE [id number] 07:29:00* Test Item Value Reference Range Interpretation Comme nts GLUCOSE BEDSIDE TESTING (pastora t code = GLUBED) 79 MG/DL 60-99 N PROTHROMBIN [id number] 06:17:00* Test Item Value Reference Range Interpretation [...] recurrent systemic embolism. 3.0 - 4.5 PTT [id number] 06:17:00* Test Item Value Reference Range Interpretation Comme nts PTT ACTIVATED (test code = APTT) 25.2 SECONDS 26.2-35.4 L BASIC METABOLIC [id number] 06:16:00* Test Item Value Reference Range Interpretation [...] CA) 8.7 MG/DL 8.4-10.2 N CBC W/AUTO [id number] 06:05:00* Test Item Value Reference Range Interpretation [...] K/mm3 0.0-0.1 N COVID 19 Asymptomatic IH [id number] 03:54:00* Test Item Value Reference Range Interpretation [...] virus (antigen) in the sample." BASIC METABOLIC [id number] 07:26:00* Test Item Value Reference Range Interpretation [...] code = CA) 7.8 MG/DL 8.4-10.2 L [id number] 07:26:00* Test Item Value Reference Range Interpretation Comme nts TROPONIN-I (test code = TROPI) < 0.012 NG/ML 0.012-0.033 L CBC W/AUTO [id number] 06:53:00* Test Item Value Reference Range Interpretation [...] = NRBC#) 0.00 K/mm3 0.0-0.1 N DIFFERENTIAL [id number] 06:53:00* Test Item Value Reference Range Interpretation Comme nts RBC MORPHOLOGY REQUIRED (pastora t code = RBCM) PLATELET ESTIMATE (test code = PLTEST) ADEQUATE PLATELET MORPHOLOGY (test co de = PLTMORPH) NORMAL [id number] 01:42:00* Test Item Value Reference Range Interpretation Comme nts TROPONIN-I (test code = TROPI) < 0.012 NG/ML 0.012-0.033 L THYROID STIMULATING [id number] 18:47:00* Test Item Value Reference Range Interpretation Comme nts THYROID STIMULATING HORMONE (test code = TSH) 1.310 MIU/L 0.465-4.68 N Please be aware that bias results for TSH may occur forpatient who are taking Biotin supplements. COMPREHENSIVE METABOLIC [id number] 17:48:00* Test Item Value Reference Range Interpretation [...] and aplastic anemia) with specific assayson the [employer] 5600 of which Total Protein is one [...] 56 UNITS/L 38-126 N NT PRO-BRAIN NATRIURETIC [id number] 17:48:00* Test Item Value Reference Range Interpretation Comme nts NT PRO-BRAIN NATRIURETIC PEP TI (test code = PROBNP) 728.0 pg/mL 0-450 H [id number] 17:48:00* Test Item Value Reference Range Interpretation Comme nts TROPONIN-I (test code = TROPI) < 0.012 NG/ML 0.012-0.033 L CBC W/AUTO [id number] 17:19:00* Test Item Value Reference Range Interpretation [...] Notes Date/Time Note Provider Source 2023-08-26 11:41:00 [id number] 93VZWXg0Sv/0WbpwzxB6D0kO3xb8919-17-81T17:41:00 [facility] ([facility]) Cardiothoracic Surg. Prog NoteREPORT #: [id number] REPORT STATUS: Signed DATE: 08/26/23 TIME: 1141 PATIENT: CHARLIE HART UNIT #: [id number] #: [id number] ROOM #: [facility] BED: A : 35 AGE: 88 SEX: M ATTEND: Tony Gautam MD ADM AUTHOR: Rosie Starr PA ATTENTION EDITS and/or ADDENDA must be made in Patient Keeper for this note. Edits and ammendments created in JumpChat are not visible in Patient Keeper or the legal medical record (HPF). -- ASSESSMENT AND PLAN -- HOSPITAL COURSE TO DATE:08/09: LHC @ [facility] by Dr. Celis + CAD. Transfer from [place] forconsideration of CABG.08/13: CABG x 3 (STANLEY-LAD, SVG-ramus, SVG-OM1) by Dr. Gil: Atrial lead extraction and new atrial lead placement by Dr Dilshad Strong08/19: RV lead revision and upgrade to BiV pacemaker by Dr. Strong08/20: Transfer to [facility]. GENERAL ASSESSMENT:Patient is an 88 year-old male with symptomatic multi-vessel coronary arterydisease. POD#13 CABG x 3 (STANLEY-LAD, SVG-ramus, SVG-OM1) by Dr. Powell on 08/13. No events overnight. Tolerating all targeted therapy. Incisions are healingwell. Appetite is adequate. No voiding issues - on lasix BID. Pain iswell-controlled. Acute debility - ambulating with PT. Will benefit considerablyfrom rehab. Patient has been accepted by [facility] in [place]. Pendingtransfer. Plan:- Cleared for discharge to [facility] today.- Continue all guideline directed therapy at discharge including Plavix,Eliquis, statin and beta lois.- Follow-up with Dr. Powell once discharged home. PLAN DISCUSSED WITH:Patient seen on AM rounds with Dr. Powell. -- SUBJECTIVE -- PATIENT NARATIVE:No events overnight. Patient resting in bed this morning. Ready to transitionto [facility]. -- OBJECTIVE -- VITALS (08/25 11:41 - [...] MG PO DAILYIPRATROPIUM BROMIDE 0.5 MG NEB LXY4MEPILPTZZWF 20 MG PO QAMNITROGLYCERIN 0.4 MG SL [...] this note. Edits and ammendments created in Jump[employer] are not visible in Patient Keeper or the legal medical record ([facility]). [facility] #: [phone] OF REPORTPRProgress bwvo4015-79-23X31:41:00P.JR-OKWA53468817-2423RAQv ailable for patient pfqfIIBIQQOJCTVXNF6789-81-37R73:09:37 [facility] 2023-08-26 10:10:00 [id number] thIbmhv9et8q8QJewDdiNDFBziWlk LYnfoEDHOLQSZQ/fHdZsvYeobzS6590-01-96V69:10:00 [facility] ([facility]) Hospitalist D/C Summary REPORT #: [id number] REPORT STATUS: Signed DATE: 08/26/23 TIME: 1010 PATIENT: CHARLIE HART UNIT #: [id number] #: [id number] ROOM #: P.0418 BED: A : 35 AGE: 88 SEX: M ATTEND: Tony Gautam MD ADM AUTHOR: Tony Gautam MD ATTENTION EDITS and/or ADDENDA must be made in Patient Keeper for this note. Edits and ammendments created in [employer] are not visible in Patient Keeper or the legal medical record ([facility]). -- PROBLEMS/PROCEDURES -- ADMISSION DATE:08/09/23 ADMITTING DIAGNOSES: - Acute on chronic systolic (congestive) heart failure - Afib - Atherosclerosis of [place] coronary artery without angina pectoris,unspecified whether [place] or transplanted heart - Atrial fibrillation - [...] heart failure - Afib - Atherosclerosis of [place] coronary artery without angina pectoris,unspecified whether [place] or transplanted heart - Atrial fibrillation - [...] suggestive of angina. Hewas taken to the [place] emergency room on August 05, 2023 where he wasruled in for non-ST segment elevation myocardial infarction. He was started onheparin and transferred to [facility] where he was observed for a coupleof days and improved on medical therapy.Echocardiogram showed apical wall motion abnormalities with preserved leftventricular ejection fraction. As the patient was doing well on medicalmanagement, he was discharged from the other hospital without intervention. Hewas seen by his primary pleating machine operator, Dr Deyvi Celis and admitted forselective coronary angiogram on August 09, 2023 to [facility].This showed multivessel coronary artery disease, LAD 90 to 99% lesion, leftcircumflex proximal 90%, 95% obtuse marginal lesion; Occluded proximal RCA.Left ventricular end-diastolic pressure 12; Left ventricular ejection [id number]%, severe anteroapical hypokinesis. He has been transferred to [facility] for consideration of CABG by Dr. João [...] was very functional prior to this hospitalization.Insurance [employer] has asked for peer to peer. Precedence [...] and EP services for discharge to the [facility].Insurance has approved [facility] and I anticipate that he will be discharged 08/26. 08/26/2023: The patient is hemodynamically stable and [facility]He will follow-up with his primary [...] anteroapical hypokinesis.The patient is being admitted to [facility] for higher level of care.Optimized statin dose, [...] Neb Soln (Atrovent Neb Soln) 0.5MG Neb LPF7HBmj/Al/Simeth Oral Liquid (Maalox Max Oral Liquid) 30ML PO Q6H PRNindigestion/heartburnMethocarbamol Tab (Robaxin Tab) 500MG PO TIDMetoprolol Succinate XL Tab (Toprol XL Tab) 12.5MG PO DAILYPreserVision AREDS 7,160 unit-113 mg-100 unit tablet (vitaminsA,C,G-pcsp-tdfqdi) 1 TAB PO DAILY for home medication traMADol Tab (Ultram Tab) 50 MG PO BID PRN pain scale 7-10 -- DISCHARGE INSTRUCTIONS -- ADMISSION ORDERS:Discharge Follow Up Details:Order number: [id number]: ADT - Admission OrdersOrder status: Transmitted Details:Consulting provider 1: 01:Dilshad Strong MDConsulting provider 1: .Consult follow up timeframe: In 2-3 weeksConsult special instructions: PPM follow up Ordered by: Tony Gautam MD Aug 25, 2023 10:39pmEntered by: Tony Gautam MD Service date: Aug 25, 2023 10:38pm PK DISCHARGE ORDERS:Discharge Ronald w/instruction Details:Order number: [id number]: PKDC - PK DISCHARGE ORDERSOrder status: Transmitted Details:Discharge Parameters: Meds given [facility]Meds to be Given:(Enter specifics) scheduled medsDischarge order with parameter: YesNotify attending when discharge parameter met: YesDischarge to: Home/Self CareDiet: CardiacActivity: As Tolerated No Lifting gt;10lbs No Strenuous Activity Sternal Precautions PPM precautionsPCP: DANIEL:Deyvi Celis MD CardiologyPCP follow up timeframe: In 1-2 weeksNotify PCP of Signs/Symptoms: Chest Pain Moderate/large bleeding Shortness of breath Temp. 101 or greaterWound/dressing care: Clean wound daily OK to shower tomorrowEquipment/supplies: Oxygen therapyWeight Monitoring: DailyAdditional instructions: [facility]. meds per med recAttending Physician: ROXANA:João Powell MDAttelvis physician follow up timeframe: 2 weeksAttending physician special instructions: post CABG follow upAdditional Discharge Routines: PCP Follow-Up Attending Follow-Up Slitting And Shipping Supervisor Follow-Up Ordered by: Tony Gautam MD Aug [...] patient was [facility] or call 911 should their [...] this note. Edits and ammendments created in JumpChat are not visible in Patient Keeper or the legal medical record (HPF). RPT #: [id number] OF REPORTDSDischarge qkwvljf5628-80-21Y90:10:00P.IF-[id number] VAvailable for patient zetiFAUCQUWGCMAWYL6044-78-72I23:19:11 [facility] 2023-08-26 09:10:00 [id number] /YGcG3bBDZMHAOg3mHq6yagzNwCNk Fo0BDJ+eXth4SNtq1dgYyGMU0UO0754-43-38W36:10:00 [facility] ([facility]) Cardiology Progress Notes REPORT #: [id number] REPORT STATUS: Signed DATE: 08/26/23 TIME: 909 PATIENT: CHARLIE HART UNIT #: [id number] #: [id number] ROOM #: P.0418 BED: A : 35 AGE: 88 SEX: M ATTEND: Tony Gautam MD ADM AUTHOR: Annette Chow ATTENTION EDITS and/or ADDENDA must be made in Patient Keeper for this note. Edits and ammendments created in JumpChat are not visible in Patient Keeper or [...] pain, suggestive of angina, and presented at [facility] emergency room on 08/05/22 for further evaluation and management. He wasruled in NSTEMI, started on heparin drip and transferred to [facility]. He wasobserved and pain resolved on medical therapy (per records). He was discharged.He was seen by cardiology services (Dr. Celis) as outpatient and underwentelective coronary angiogram on 08/09/22 at [facility] and showed multi-vesselcoronary artery disease, LAD (90 to 99% lesion),LCx proximal 90%, 95% obtusemarginal lesion, RCA (occluded proximal), LVEDP 12, LVEF 40%, severe anteroapical hypokinesis. He was transferred here to [facility] for considerationof CABG by Dr. [...] for placement, IPR vs. SNF, accepted at [facility]- Cleared by CV surgery to be discharged when accepted to [facility]. He willfollow-up with Dr. Powell and his pleating machine operator- From cardiology standpoint the patient is stable [...] MG PO DAILYIPRATROPIUM BROMIDE 0.5 MG NEB HIQ1HBOTHHJKMTX 20 MG PO QAMNITROGLYCERIN 0.4 MG SL [...] Edits and ammendments created in [facility]ationBL[facility] are not visible in Patient Keeper or the legal medical record (HPF). [facility] #: [id number] OF REPORTPRProgress obck4268-98-62D10:10:00P.TS-CEOH32032740-0759ONZz ailable for patient qlyxCPPTYWRKBRMHBF8201-21-17X88:14:03 [facility] 2023-08-25 22:39:00 [id number] qnyw060fSq7sTM+SFcSXxAhT2LpNb DTF9tJYXN7jEVNTPybNy9CtfSjF4157-49-87Z09:39:00 [facility] ([facility]) Med Order Sheet REPORT #: [id number] REPORT STATUS: Signed DATE: 08/25/23 TIME: 2238 PATIENT: CHARLIE HART UNIT #: [id number] #: [id number] ROOM #: [facility] BED: A : 35 AGE: 88 SEX: M ATTEND: Tony Gautam MD ADM AUTHOR: Tony Gautam MD ATTENTION EDITS and/or ADDENDA must be made in Patient Keeper for this note. Edits and ammendments created in JumpChat are not visible in Patient Keeper or the legal medical record (HPF). Discharge Medication Reconciliation DISCHARGE MEDICATION LISTNew: PreserVision AREDS 7,160 unit-113 mg-100 unit tablet (vitaminsA,C,V-bwco-irduhq) Dose: 1 TAB PO DAILY for home [...] Soln (Atrovent Neb Soln) Dose: 0.5MG Neb WIE1JLtv/Al/Simeth Oral Liquid (Maalox Max Oral Liquid) Dose: [...] IV Q6H PRN nausea and vomiting at 2239ATTENTION EDITS and/or ADDENDA must be made in Patient Keeper for this note. Edits and ammendments created in JumpChat are not visible in Patient Keeper or the legal medical record ([facility]). RPT #: [id number] OF REPORTCLClinical ebjs5830-02-41V68:39:00P.YK-CWRI35061885-6543DAMn ailable for patient idelQBMUUOAJWFIIGI5762-78-32S71:39:29 [facility] 2023-08-25 22:11:00 [id number] IrxQ95hedkVEmvTQm9cY6/D5PBro/ Fk5g4ZkXNd5YtvtG583CDw+RqAi6779-59-37U66:11:00 [facility] ([facility]) Hospitalist Progress Note REPORT #: [id number] REPORT STATUS: Signed DATE: 08/25/23 TIME: 2210 PATIENT: CHARLIE HART UNIT #: [id number] #: [id number] ROOM #: P.0418 BED: A : 35 AGE: 88 SEX: M ATTEND: Tony Gautam MD ADM AUTHOR: Tony Gautam MD ATTENTION EDITS and/or ADDENDA must be made in Patient Keeper for this note. Edits and ammendments created in JumpChat are not visible in Patient Keeper or the legal medical record ([facility]). -- ASSESSMENT AND PLAN -- GENERAL [...] anteroapical hypokinesis.The patient is being admitted to [facility] for higher level of care.Optimized statin dose, [...] to BiV pacemaker, 08/19/[address] Dilshad Jang has approved IPR, and the patient will be discharged to [facility] on 08/26/2023. -- SUBJECTIVE -- HPI: [...] suggestive of angina. Hewas taken to the [place] emergency room on August 05, 2023 where he wasruled in for non-ST segment elevation myocardial infarction. He was started onheparin and transferred to [facility] where he was observed for a coupleof days and improved on medical therapy.Echocardiogram showed apical wall motion abnormalities with preserved leftventricular ejection fraction. As the patient was doing well on medicalmanagement, he was discharged from the other hospital without intervention. Hewas seen by his primary pleating machine operator, Dr Deyvi Celis and admitted forselective coronary angiogram on August 09, 2023 to [facility].This showed multivessel coronary artery disease, LAD 90 to 99% lesion, leftcircumflex proximal 90%, 95% obtuse marginal lesion; Occluded proximal RCA.Left ventricular end-diastolic pressure 12; Left ventricular ejection rnquxxgv07%, severe anteroapical hypokinesis. He has been transferred to [facility] for consideration of CABG by Dr. João [...] and EP services for discharge to the [facility].Insurance has approved [facility] and I anticipate that he will be [...] MG PO DAILYIPRATROPIUM BROMIDE 0.5 MG NEB XDD6XJNWXQJFQXC 20 MG PO QAMNITROGLYCERIN 0.4 MG SL [...] this note. Edits and ammendments created in [employer] are not visible in Patient Keeper or the legal medical record (HPF). [facility] #: [id number] OF REPORTPRProgress frkn4885-83-84F72:11:00P.RK-WLST92815132-5795JAQb ailable for patient wfabWCNGQKNLSOQEUV4429-26-65A15:15:58 [facility] 2023-08-25 11:21:00 [id number] 2DAz9OeIeLEp/OqB8GPJZEAEOVzjx HsKankkeDdhiTKEEgMAhYVMpaCf7589-31-27G04:21:00 [facility] ([facility]) Cardiology Progress Notes REPORT #: [id number] REPORT STATUS: Signed DATE: 08/25/23 TIME: 1121 PATIENT: CHARLIE HART UNIT #: [id number] #: [id number] [facility] B[facility]: A : 35 AGE: 88 SEX: M ATTEND: Tony Gautam MD ADM AUTHOR: Kaleigh Gonzalez ATTENTION EDITS and/or ADDENDA must be made in Patient Keeper for this note. Edits and ammendments created in JumpChat are not visible in Patient Keeper or [...] pacing morphology-2 week follow up Dilshad Strong, [facility]UE[facility]iac ElectrophysiologistTexas Cardiac Arrhythmia Signed in PatientKeeper by [...] POC w/ Mr Hart is daughter Elizabeth (#[phone]) and available by phone- Educational materials/folder already [...] recurrent chest pain and angina, transferred from [place] ER08/05/23 for emergent bypass, coronary angiogram on 08/09/22 at [facility] for multivessel CAD involving LAD (90-99% lesion), [...] MG PO DAILYIPRATROPIUM BROMIDE 0.5 MG NEB JCA5XGQQPJWQPSH 20 MG PO QAMNITROGLYCERIN 0.4 MG SL [...] this note. Edits and ammendments created in JumpChat are not visible in Patient Keeper or the legal medical record (HPF). RPT #: [id number] OF REPORTPRProgress eimm8905-40-50Q53:21:00P.BR-BDZU92296091-1237UPVr ailable for patient ofcdIFHNREHAURFOHI2053-52-00Z99:05:41 [facility] 2023-08-25 08:52:00 [id number] UCH3/O1DdTyBfT7lH1hNtsLQS9KJS KyjK8iXsDU16aiWOyVm6Tobv8362878-56-64A11:52:00 [facility] ([facility]) Cardiology Progress Notes REPORT #: [id number] REPORT STATUS: Signed DATE: 08/25/23 TIME: 851 PATIENT: CHARLIE HART UNIT #: [id number] #: [id number] ROOM #: P.0418 BED: A : 35 AGE: 88 SEX: M ATTEND: Tony Gautam MD ADM AUTHOR: Annette Chow ATTENTION EDITS and/or ADDENDA must be made in Patient Keeper for this note. Edits and ammendments created in JumpChat are not visible in Patient Keeper or [...] pain, suggestive of angina, and presented at [facility] emergency room on 08/05/22 for further evaluation and management. He wasruled in NSTEMI, started on heparin drip and transferred to [facility]. He wasobserved and pain resolved on medical therapy (per records). He was discharged.He was seen by cardiology services (Dr. Celis) as outpatient and underwentelective coronary angiogram on 08/09/22 at [facility] and showed multi-vesselcoronary artery disease, LAD (90 to 99% lesion),LCx proximal 90%, 95% obtusemarginal lesion, RCA (occluded proximal), LVEDP 12, LVEF 40%, severe anteroapical hypokinesis. He was transferred here to [facility] for considerationof CABG by Dr. [...] He willfollow-up with Dr. Powell and his pleating machine operator- From cardiology standpoint the patient is stable [...] MG PO DAILYIPRATROPIUM BROMIDE 0.5 MG NEB SSW3DPVYBYKDQBT 20 MG PO QAMNITROGLYCERIN 0.4 MG SL [...] this note. Edits and ammendments created in JumpChat are not visible in Patient Keeper or the legal medical record (HPF). RPT #: [id number] OF REPORTPRProgress mgwd9481-59-88I99:52:00P.QD-CZXZ28230122-5251IKLg ailable for patient dffiLWLBAPXBUCVTNO1574-52-15M80:14:02 [facility] 2023-08-24 13:05:00 [id number] /K7EQr6kobgx9xgR0ExfODVh2T0wf kN88iSCsqbg3cX1v4+oIdBh6Yb36783-85-29G99:05:00 [facility] ([facility]) Hospitalist Progress Note REPORT #: [id number] REPORT STATUS: Signed DATE: 08/24/23 TIME: 1305 PATIENT: CHARLIE HART UNIT #: [id number] #: [id number] ROOM #: P.0418 BED: A : 35 AGE: 88 SEX: M ATTEND: Tony Gautam MD ADM AUTHOR: Tony Gautma MD ATTENTION EDITS and/or ADDENDA must be made in Patient Keeper for this note. Edits and ammendments created in JumpChat are not visible in Patient Keeper or [...] anteroapical hypokinesis.The patient is being admitted to [facility] for higher level of care.Optimized statin dose, [...] suggestive of angina. Hewas taken to the [place] emergency room on August 05, 2023 where he wasruled in for non-ST segment elevation myocardial infarction. He was started onheparin and transferred to [facility] where he was observed for a coupleof days and improved on medical therapy.Echocardiogram showed apical wall motion abnormalities with preserved leftventricular ejection fraction. As the patient was doing well on medicalmanagement, he was discharged from the other hospital without intervention. Hewas seen by his primary pleating machine operator, Dr Deyvi Celis and admitted forselective coronary angiogram on August 09, 2023 to [facility].This showed multivessel coronary artery disease, LAD 90 to 99% lesion, leftcircumflex proximal 90%, 95% obtuse marginal lesion; Occluded proximal RCA.Left ventricular end-diastolic pressure 12; Left ventricular ejection iubjjqjz42%, severe anteroapical hypokinesis. He has been transferred to [facility] for consideration of CABG by Dr. João [...] MG PO DAILYIPRATROPIUM BROMIDE 0.5 MG NEB DEO1EZROHCDMAUE 20 MG PO QAMNITROGLYCERIN 0.4 MG SL [...] this note. Edits and ammendments created in JumpChat are not visible in Patient Keeper or the legal medical record (HPF). RPT #: [id number] OF REPORTPRProgress cbvt9253-07-82V07:05:00P.VW-CQDH13130801-9920FLKw ailable for patient qqghVDMPUKOMHEESCD7395-00-99B50:06:51 [facility] 2023-08-24 09:15:00 [id number] TEpZlO5+RQfsuyoX+3EeY2G86tOv9 RBr71rsRYCqj1a+qKMPAXz+ZgAS7967-11-69D82:15:00 [facility] ([facility]) Cardiology Progress Notes REPORT #: [id number] REPORT STATUS: Signed DATE: 08/24/23 TIME: 914 PATIENT: CHARLIE HART UNIT #: [id number] #: [id number] ROOM #: P.0418 BED: A : 35 AGE: 88 SEX: M ATTEND: Tony Gautam MD ADM AUTHOR: Annette Chow ATTENTION EDITS and/or ADDENDA must be made in Patient Keeper for this note. Edits and ammendments created in JumpChat are not visible in Patient Keeper or [...] pain, suggestive of angina, and presented at [facility] emergency room on 08/05/22 for further evaluation and management. He wasruled in NSTEMI, started on heparin drip and transferred to [facility]. He wasobserved and pain resolved on medical therapy (per records). He was discharged.He was seen by cardiology services (Dr. Celis) as outpatient and underwentelective coronary angiogram on 08/09/22 at [facility] and showed multi-vesselcoronary artery disease, LAD (90 to 99% lesion),LCx proximal 90%, 95% obtusemarginal lesion, RCA (occluded proximal), LVEDP 12, LVEF 40%, severeanteroapical hypokinesis. He was transferred here to [facility] for considerationof CABG by Dr. [...] MG PO DAILYIPRATROPIUM BROMIDE 0.5 MG NEB KMT4CIGYAVBLHYB 20 MG PO QAMNITROGLYCERIN 0.4 MG SL [...] this note. Edits and ammendments created in JumpChat are not visible in Patient Keeper or the legal medical record (HPF). RPT #: [id number] OF REPORTPRProgress xoho2278-12-97E35:15:00P.VS-BOCQ27177684-9775HVSf ailable for patient kubbTCBYRNTFHRAEGN8325-25-21R29:06:34 [facility] 2023-08-23 13:08:00 [id number] 12Ak+E3Hbp4QRWfujSquipFJEreFf sMEtjFAYATnNjOVfBnELOwPrxh/3052-21-10D06:08:00 [facility] ([facility]) Hospitalist Progress Note REPORT #: [id number] REPORT STATUS: Signed DATE: 08/23/23 TIME: 1308 PATIENT: CHARLIE HART UNIT #: [id number] #: [id number] ROOM #: P.0418 BED: A : 35 AGE: 88 SEX: M ATTEND: Tony Gautam MD ADM AUTHOR: Tony Gautam MD ATTENTION EDITS and/or ADDENDA must be made in Patient Keeper for this note. Edits and ammendments created in JumpChat are not visible in Patient Keeper or [...] anteroapical hypokinesis.The patient is being admitted to [facility] for higher level of care.Optimized statin dose, [...] upgrade to BiV pacemaker, 08/19/[address] Casanoav. ADDITIONAL COMMENTS:s/p CABG x 3, by Dr. [...] suggestive of angina. Hewas taken to the [place] emergency room on August 05, 2023 where he wasruled in for non-ST segment elevation myocardial infarction. He was started onheparin and transferred to [facility] where he was observed for a coupleof days and improved on medical therapy.Echocardiogram showed apical wall motion abnormalities with preserved leftventricular ejection fraction. As the patient was doing well on medicalmanagement, he was discharged from the other hospital without intervention. Hewas seen by his primary pleating machine operator, Dr Deyvi Celis and admitted forselective coronary angiogram on August 09, 2023 to [facility].This showed multivessel coronary artery disease, LAD 90 to 99% lesion, leftcircumflex proximal 90%, 95% obtuse marginal lesion; Occluded proximal RCA.Left ventricular end-diastolic pressure 12; Left ventricular ejection yrgunvii47%, severe anteroapical hypokinesis. He has been transferred to [facility] for consideration of CABG by Dr. João [...] was very functional prior to this hospitalization.Insurance [employer] has asked for peer to peer.Precedence suggests [...] MG PO DAILYIPRATROPIUM BROMIDE 0.5 MG NEB AUK8KHBFBBJIIVS 20 MG PO QAMNITROGLYCERIN 0.4 MG SL [...] this note. Edits and ammendments created in JumpChat are not visible in Patient Keeper or the legal medical record (HPF). [facility] #: [id number] OF REPORTPRProgress crlb3915-97-65A48:08:00P.AV-EYZK47661156-0767UELs ailable for patient eekbJBIPUIRHJACHBV7621-45-63Z83:12:44 [facility] 2023-08-23 08:59:00 [id number]/ZJZgZ RTIi3rPnGxyE6CchOjSZS53HZ4kmE +/mKGQ9sWmWea3wSJ0PGC6/FLIf9512-71-73Q01:59:00 [facility] ([facility]) Cardiology Progress Notes REPORT #: [id number] REPORT STATUS: Signed DATE: 08/23/23 TIME: 858 PATIENT: CHARLIE HART UNIT #: [id number] #: [id number] ROOM #: P.0418 BED: A : 35 AGE: 88 SEX: M ATTEND: Tony Gautam MD ADM AUTHOR: Annette Chow ATTENTION EDITS and/or ADDENDA must be made in Patient Keeper for this note. Edits and ammendments created in [employer] are not visible in Patient Keeper or [...] pain, suggestive of angina, and presented at [facility] emergency room on 08/05/22 for further evaluation and management. He wasruled in NSTEMI, started on heparin drip and transferred to [facility]. He wasobserved and pain resolved on medical therapy (per records). He was discharged.He was seen by cardiology services (Dr. Celis) as outpatient and underwentelective coronary angiogram on 08/09/22 at [facility] and showed multi-vesselcoronary artery disease, LAD (90 to 99% lesion),LCx proximal 90%, 95% obtusemarginal lesion, RCA (occluded proximal), LVEDP 12, LVEF 40%, severeanteroapical hypokinesis. He was transferred here to [facility] for considerationof CABG by Dr. [...] source: Monitor I/Os (08/22 07:00 - 08/23 07:00):[employer] 400Intake 400 -EXAM- OTHER: Constitutional: Well developed, [...] MG PO DAILYIPRATROPIUM BROMIDE 0.5 MG NEB UCB4GPVLJLWZXEF 20 MG PO QAMNITROGLYCERIN 0.4 MG SL [...] Edits and ammendments created in [facility]BL[facility] are not visible in Patient Keeper or the legal medical record (HPF). [facility] #: [id number] OF REPORTPRProgress klmd7810-28-70C23:59:00P.FW-[id number] ailable for patient nfbbPLBVFBYGLDLILH6334-86-83Y70:07:06 [facility] 2023-08-22 15:36:00 [id number] WtYVDlwFy8qRpF3gzFkDCzhRiOdBK xBJJUVqS8yVhd1/Bnng7d4c7MMA8423-72-27U29:36:00 [facility] ([facility]) Hospitalist Progress Note REPORT #: [id number] REPORT STATUS: Signed DATE: 08/22/23 TIME: 1536 PATIENT: CHARLIE HART UNIT #: [id number] #: [id number] ROOM #: [facility] BED: A : 35 AGE: 88 SEX: M ATTEND: Tony Gautam MD ADM AUTHOR: Tony Gautam MD ATTENTION EDITS and/or ADDENDA must be made in Patient Keeper for this note. Edits and ammendments created in [employer] are not visible in Patient Keeper or [...] anteroapical hypokinesis.The patient is being admitted to [facility] for higher level of care.Optimized statin dose, [...] suggestive of angina. Hewas taken to the [place] emergency room on August 05, 2023 where he wasruled in for non-ST segment elevation myocardial infarction. He was started onheparin and transferred to [facility] where he was observed for a coupleof days and improved on medical therapy.Echocardiogram showed apical wall motion abnormalities with preserved leftventricular ejection fraction. As the patient was doing well on medicalmanagement, he was discharged from the other hospital without intervention. Hewas seen by his primary pleating machine operator, Dr Deyvi Celis and admitted forselective coronary angiogram on August 09, 2023 to [facility].This showed multivessel coronary artery disease, LAD 90 to 99% lesion, leftcircumflex proximal 90%, 95% obtuse marginal lesion; Occluded proximal RCA.Left ventricular end-diastolic pressure 12; Left ventricular ejection pygyjeqa57%, severe anteroapical hypokinesis. He has been transferred to [facility] for consideration of CABG by Dr. João [...] very functional prior to this hospitalization. Insurance [employer] has asked for peer to peer.Precedence suggests [...] MG PO DAILYIPRATROPIUM BROMIDE 0.5 MG NEB GKS2FLPFACCPYGQ 20 MG PO QAMNITROGLYCERIN 0.4 MG SL [...] Edits and ammendments created in [facility]BL[facility] are not visible in Patient Keeper or the legal medical record (HPF). RPT #: [id number] OF REPORTPRProgress cbnj9116-39-11V81:36:00P.CG-UFFB19403376-0612TULj ailable for patient ulkrFFWIWFRWHEMQRB1982-76-93O21:43:02 [facility] 2023-08-22 08:44:00 [id number] CqPzghjLdG/+CyFiJknAF1EH5mjc8 +9H6bVZGOMofd4AmeayuxnX8z132985-57-37U84:44:00 [facility] ([facility]) Cardiology Progress Notes REPORT #: [id number] REPORT STATUS: Signed DATE: 08/22/23 TIME: 843 PATIENT: CHARLIE HART UNIT #: [id number] #: [id number] ROOM #: P.0418 BED: A : 35 AGE: 88 SEX: M ATTEND: Tony Gautam MD ADM AUTHOR: Annette Chow ATTENTION EDITS and/or ADDENDA must be made in Patient Keeper for this note. Edits and ammendments created in [employer] are not visible in Patient Keeper or [...] pain, suggestive of angina, and presented at [facility] emergency room on 08/05/22 for further evaluation and management. He wasruled in NSTEMI, started on heparin drip and transferred to [facility]. He wasobserved and pain resolved on medical therapy (per records). He was discharged.He was seen by cardiology services (Dr. Celis) as outpatient and underwentelective coronary angiogram on 08/09/22 at [facility] and showed multi-vesselcoronary artery disease, LAD (90 to 99% lesion),LCx proximal 90%, 95% obtusemarginal lesion, RCA (occluded proximal), LVEDP 12, LVEF 40%, severeanteroapical hypokinesis. He was transferred [facility] to [facility] for consideration of CABG by [...] MG PO DAILYIPRATROPIUM BROMIDE 0.5 MG NEB XKX4GFBAPUINZGH 20 MG PO QAMNITROGLYCERIN 0.4 MG SL [...] this note. Edits and ammendments created in [employer] are not visible in Patient Keeper or the legal medical record (HPF). [facility] #: [id number] OF REPORTPRProgress flec5188-01-76J04:44:00P.EB-[id number] ailable for patient neznRBFRSRAMJITIVC3767-54-00D59:14:02 [facility] 2023-08-21 10:28:00 [id number] Kx/8JHYHWZRZZuj2XKyxw+Yd6Ph7N re1SAvUoSmBwL5TnjUdTtVebJPZ6075-30-26W96:28:00 [facility] ([facility]) Hospitalist Progress Note REPORT #: [id number] REPORT STATUS: Signed DATE: 08/21/23 TIME: 1028 PATIENT: CHARLIE HART UNIT #: [id number] #: [id number] ROOM #: [facility] BED: A : 35 AGE: 88 SEX: M ATTEND: Tony Gautam MD ADM AUTHOR: Tony Gautam MD ATTENTION EDITS and/or ADDENDA must be made in Patient Keeper for this note. Edits and ammendments created in [employer] are not visible in Patient Keeper or the legal medical record ([facility]). -- ASSESSMENT AND PLAN -- GENERAL [...] anteroapical hypokinesis.The patient is being admitted to [facility] for higher level of care.Given his multiple [...] suggestive of angina. Hewas taken to the [place] emergency room on August 05, 2023 where he wasruled in for non-ST segment elevation myocardial infarction. He was started onheparin and transferred to [facility] where he was observed for a coupleof days and improved on medical therapy.Echocardiogram showed apical wall motion abnormalities with preserved leftventricular ejection fraction. As the patient was doing well on medicalmanagement, he was discharged from the other hospital without intervention. Hewas seen by his primary pleating machine operator, Dr Deyvi Celis and admitted forselective coronary angiogram on August 09, 2023 to [facility].This showed multivessel coronary artery disease, LAD 90 to 99% lesion, leftcircumflex proximal 90%, 95% obtuse marginal lesion; Occluded proximal RCA.Left ventricular end-diastolic pressure 12; Left ventricular ejection yoijuaqd05%, severe anteroapical hypokinesis. He has been transferred to [facility] for consideration of CABG by Dr. João [...] of PRBC, and 1 unit of FFP. 1/18: Extubated postoperative day 0.On 2 L of [...] MG PO DAILYIPRATROPIUM BROMIDE 0.5 MG NEB WJH9DQQOZWNDNFWWJB 0.4 MG SL Q5M PRNONDANSETRON HCL/PF 4 [...] Edits and ammendments created in [facility] are not visible in Patient Keeper or the legal medical record (HPF). RPT #: [id number] OF REPORTPRProgress iovy5220-56-22Z85:28:00P.GV-[id number] ailable for patient rbjzJOGLMFATAOARDJ8697-22-43G21:37:13 [facility] 2023-08-21 07:54:00 [id number]/b0C4 oKfnKVInM/06z8tGK+2p1ISxiYATW TxWJKkg226n0+fvjNJheJBjcnZI7526-95-07R50:54:00 [facility] ([facility]) Cardiology Progress Notes REPORT #: [id number] REPORT STATUS: Signed DATE: 08/21/23 TIME: 753 PATIENT: CHARLIE HART UNIT #: [id number] #: [id number] ROOM #: P.0418 BED: A : 35 AGE: 88 SEX: M ATTEND: Tony Gautam MD ADM AUTHOR: Nj Oliva DO [facility] ATTENTION EDITS and/or ADDENDA must be made in Patient Keeper for this note. Edits and ammendments created in [employer] are not visible in Patient Keeper or [...] was transferred to the CVICU from the [facility] 08/13 after CABG x 3 (STANLEY-LAD, rSVG [...] per CT surgery team 2: AfibA/P: - NCW2PE1-Atat >3- History of Atrial fibrillation s/p PPM.- [...] suggestive ofangina. He was taken to the [place] emergency room on August 05, 2023where he was ruled in for non-ST segment elevation myocardial infarction. Hewas started on heparin and transferred to [facility] where he wasobserved for a couple of days and improved on medical therapy. Echocardiogramshowed apical wall motion abnormalities with preserved left ventricularejection fraction. As the patient was doing well on medical management, he wasdischarged from the other hospital without intervention. He was seen by hisprimary pleating machine operator, Dr Deyvi Celis and admitted for selective coronaryangiogram on August 09, 2023 to [facility]. This showed multivessel coronaryartery disease, LAD 90 to 99% lesion, left circumflex proximal 90%, 95% obtusemarginal lesion; Occluded proximal RCA. Left ventricular end-diastolic lpsieqaq97; Left ventricular ejection fraction 40%, severe anteroapical hypokinesis. Hehas been transferred to [facility] for consideration of CABG by Dr.Eyal Powell. [...] MG PO DAILYIPRATROPIUM BROMIDE 0.5 MG NEB UJY9GQVNYOIIZWPPWS 0.4 MG SL Q5M PRNONDANSETRON HCL/PF 4 [...] this note. Edits and ammendments created in [employer] are not visible in Patient Keeper or the legal medical record (HPF). [facility] #: [id number] OF REPORTPRProgress elzp9350-76-57L40:54:00P.ER-[id number] ailable for patient zyorHWRROILZBWLJZN3286-09-07O78:13:59 [facility] 2023-08-20 15:13:00 [id number] nhP0BpetleE5+KsnY2EiArtYEUADb 4R/PqBhwHbkCM2ujOpRGOwUNR2b9730-74-43C63:13:00 [facility] ([facility]) Cardiology Progress Notes REPORT #: [id number] REPORT STATUS: Signed DATE: 08/20/23 TIME: 1513 PATIENT: CHARLIE HART UNIT #: [id number] #: [id number] ROOM #: P.0418 BED: A : 35 AGE: 88 SEX: M ATTEND: Tony Gautam MD ADM AUTHOR: Trina Marquez MD CF1 ATTENTION EDITS and/or ADDENDA must be made in Patient Keeper for this note. Edits and ammendments created in [employer] are not visible in Patient Keeper or [...] MG PO DAILYIPRATROPIUM BROMIDE 0.5 MG NEB HFH6IJFYXVJRBWZOKU 0.4 MG SL Q5M PRNONDANSETRON HCL/PF 4 [...] Edits and ammendments created in [facility] are not visible in Patient Keeper or the legal medical record (HPF). RPT #: [id number] OF REPORTPRProgress dhfm0259-80-03W32:13:00P.RR-[id number] ailable for patient qgajJOMWNNTCTBQQHD1848-99-88K43:13:57 [facility] 2023-08-20 13:57:00 [id number] ftTvpjEMQ7LMaHv/A1mWgheNeMiip W7MK/TVsbmrsElsiBCA4rkvMGkD7151-68-01L64:57:00 [facility] ([facility]) Intensive Care Progress Note REPORT #: [id number] REPORT STATUS: Signed DATE: 08/20/23 TIME: 1357 PATIENT: CHARLIE HART UNIT #: [id number] #: [id number] ROOM #: P.0311 BED: 1 : 35 AGE: 88 SEX: M ATTEND: Tony Gautam MD ADM AUTHOR: Chikis Burdick MD ATTENTION EDITS and/or ADDENDA must be made in Patient Keeper for this note. Edits and ammendments created in [employer] are not visible in Patient Keeper or the legal medical record (HPF). -- ASSESSMENT AND PLAN -- HOSPITAL COURSE TO DATE:Mr. Hart is an 88 year-old male with past medical history of hypertension,hyperlipidemia, coronary artery disease, carotid disease, presence of permanentpacemaker (2021), pulmonary hypertension, and ischemic cardiomyopathy withprevious ejection fraction 40-50% who was transferred to the CVICU from the [facility] 08/13 after CABG x 3 (STANLEY-LAD, rSVG [...] IV ASDIR PRNIPRATROPIUM BROMIDE 0.5 MG NEB THZ7FcaeFMCpcx HCL 0.1 MG PO Q8H PRNNITROGLYCERIN 0.4 [...] other members of the care team ADDITIONAL DETAIL:[id number] Signed in PatientKeeper by Chikis Burdick MD on 08/20/23 at 14:07 at 1407ATTENTION EDITS and/or ADDENDA must be made in Patient Keeper for this note. Edits and ammendments created in [employer] are not visible in Patient Keeper or the legal medical record (HPF). [facility] #: [id number] OF REPORTPRProgress qsrk9731-14-69J75:57:00P.GA-[id number] ailable for patient bpqdHOGSLUDFGUKNNK2877-42-80B29:08:17 [facility] 2023-08-20 11:41:00 [id number] osGKU+Zrg9ZUhklalnuDwIa6mxih7 VDZnjH5BustG4rWQsUplWBjjomw6923-45-62D76:41:61413 6-0049 [facility] [address] [place], [place] [address]BERTYHH NAME: CHARLIE HART ADMIT DATE: 08/09/23ACCOUNT NO: [id number] ROOM NO: [facility] AGE: 88 REPORT TYPE: eELECTROCARDIOGRAM SEX: M ADMITTING PHYSICIAN: Tony Gautam MD ATTENDING PHYSICIAN: Tony Gautam MD Order:[id number] Reason : EVALU Test Date/Time Stamp:FriAug 20 2023 11:41:49Blood Pressure : / mmHGVent. Rate : 101 BPM Atrial Rate : 101 BPM P-R Int : 120 ms QRS Dur : 128 ms QT Int : 440 ms P-R-T Axes : 001 -06 196 degrees QTc Int : 570 ms Atrial-sensed ventricular-paced rhythmAbnormal ECG Confirmed by JEMAL OHARA ([id number]) on 08/22/2023 9:18:25 AM Referred By: Tony Gautam Confirmed by:JEMAL OHARA at 0918 PATIENT NAME: CHARLIE HART .[id number] AVAvailable for patient lckxCBKHBMDRAAXEEQ1883-79-42I19:18:43 [facility] 2023-08-20 10:19:00 [id number] JvnPp0XEGvESFRYhK/TAMIKA/D1ZRG2CP WLJNyY2TVGYO38t+3plF0N8GKNb5164-49-30V88:19:00 [facility] ([facility]) Hospitalist Progress Note REPORT #: [id number] REPORT STATUS: Signed DATE: 08/20/23 TIME: 1019 PATIENT: CHARLIE HART UNIT #: [id number] #: [id number] ROOM #: P.0418 BED: A : 35 AGE: 88 SEX: M ATTEND: Tony Gautam MD ADM AUTHOR: Tony Gautam MD ATTENTION EDITS and/or ADDENDA must be made in Patient Keeper for this note. Edits and ammendments created in [employer] are not visible in Patient Keeper or [...] anteroapical hypokinesis.The patient is being admitted to [facility] for higher level of care.Given his multiple [...] suggestive of angina. Hewas taken to the [place] emergency room on August 05, 2023 where he wasruled in for non-ST segment elevation myocardial infarction. He was started onheparin and transferred to [facility] where he was observed for a coupleof days and improved on medical therapy.Echocardiogram showed apical wall motion abnormalities with preserved leftventricular ejection fraction. As the patient was doing well on medicalmanagement, he was discharged from the other hospital without intervention. Hewas seen by his primary pleating machine operator, Dr Deyvi Celis and admitted forselective coronary angiogram on August 09, 2023 to [facility].This showed multivessel coronary artery disease, LAD 90 to 99% lesion, leftcircumflex proximal 90%, 95% obtuse marginal lesion; Occluded proximal RCA.Left ventricular end-diastolic pressure 12; Left ventricular ejection yeafcflg26%, severe anteroapical hypokinesis. He has been transferred to [facility] for consideration of CABG by Dr. João [...] IV ASDIR PRNIPRATROPIUM BROMIDE 0.5 MG NEB WML3QepkRWJnxk HCL 0.1 MG PO Q8H PRNNITROGLYCERIN 0.4 [...] this note. Edits and ammendments created in [employer] are not visible in Patient Keeper or the legal medical record (HPF). [facility] #: [id number] OF REPORTPRProgress paom2442-76-09N60:19:00P.ZA-[id number] ailable for patient rmyrLYQDNNUVCSSHFD7253-04-95E93:04:23 [facility] 2023-08-20 09:56:00 [id number]+K3LUo wZcGXyHrUpM88qoe9AUufGwT/S+Ub x0Q5FOhOTnyhH1kriQ98iZNy7y/9817-86-17S21:56:00 [facility] ([facility]) Cardiology Progress Notes REPORT #: [id number] REPORT STATUS: Signed DATE: 08/20/23 TIME: 955 PATIENT: CHARLIE HART UNIT #: [id number] #: [id number] ROOM #: [facility] BED: A : 35 AGE: 88 SEX: M ATTEND: Tony Gautam MD ADM AUTHOR: Kalegih Gonzalez ATTENTION EDITS and/or ADDENDA must be made in Patient Keeper for this note. Edits and ammendments created in [employer] are not visible in Patient Keeper or [...] RA, RV lead revision with upgrade to CONCRETE TILE MACHINE OPERATOR Dilshad Strong, MDCardiac ElectrophysiologistTexas Cardiac Arrhythmia Signed [...] POC w/ Mr Hart is daughter Elizabeth (#[phone]) and available by phone- Educational materials/folder already [...] II AVB s/p Salcedo pacemaker implant (11/2021- [facility]) with recurrent chest pain and angina, transferred from [place] ER08/05/23 for emergent bypass, [facility] involving LAD (90-99% [...] IV ASDIR PRNIPRATROPIUM BROMIDE 0.5 MG NEB GAQ4ZxycEXQidn HCL 0.1 MG PO Q8H PRNNITROGLYCERIN 0.4 [...] Edits and ammendments created in [facility] are not visible in Patient Keeper or the legal medical record (HPF). RPT #: [id number] OF REPORTPRProgress aelt2802-79-23X59:56:00P.GB-JWAR90411801-2462VYEj ailable for patient jjnnUBJBARNKOURRCJ8155-51-93Y92:56:20 [facility] 2023-08-20 09:10:00 VX0665873851vdJ5Nc1K 9ruhllO5smS7iKaPUrJFJk0EGeuSO ENd/NsoyT98wvrMJPHXXGxmhKhc1376-91-88M42:10:00 [facility] ([facility]) Progress Note REPORT #: [id number] REPORT STATUS: Signed DATE: 08/20/23 TIME: 909 PATIENT: CHARLIE HART UNIT #: [id number] #: [id number] ROOM #: P.0311 BED: 1 : 35 AGE: 88 SEX: M ATTEND: Tony Gautam MD ADM AUTHOR: Nile Fuentes MD ATTENTION EDITS and/or ADDENDA must be made in Patient Keeper for this note. Edits and ammendments created in [employer] are not visible in Patient Keeper or [...] ASDIR PRN IPRATROPIUM BROMIDE 0.5 MG NEB XRC8LrczDNPjov HCL 0.1 MG PO Q8H PRNNITROGLYCERIN 0.4 [...] Edits and ammendments created in [facility] are not visible in Patient Keeper or the legal medical record (HPF). RPT #: [id number] OF REPORTPRProgress itns6007-89-91H98:10:00P.PB-[id number] ailable for patient eivxCAXRCFPPYOMUED5783-95-58K74:12:56 [facility] 2023-08-19 22:54:00 [id number] J7WNztPjmcGMBnb9f3akpNdQ88KUa zLQG5Ua6siwRizf8wuhACSHlcdo8829-73-96W64:54:00 [facility] ([facility]) Cardiology Progress Notes REPORT #: [id number] REPORT STATUS: Signed DATE: 08/19/23 TIME: 2253 PATIENT: CHARLIE HART UNIT #: [id number] #: [id number] ROOM #: P.0418 BED: A : 35 AGE: 88 SEX: M ATTEND: Tony Gautam MD ADM AUTHOR: Trina Marquez MD [facility] ATTENTION EDITS and/or ADDENDA must be made in Patient Keeper for this note. Edits and ammendments created in [employer] are not visible in Patient Keeper or [...] IV ASDIR PRNIPRATROPIUM BROMIDE 0.5 MG NEB VYJ7VukmVOGumw HCL 0.1 MG PO Q8H PRNNITROGLYCERIN 0.4 [...] this note. Edits and ammendments created in [employer] are not visible in Patient Keeper or the legal medical record (HPF). RPT #: [id number] OF REPORTPRProgress jjga5229-78-62J86:54:00P.OV-PWZJ40359584-3545CQNg ailable for patient ocxyWFXPJZOACHXDZW7587-43-05K71:13:57 [facility] 2023-08-19 19:00:00 [id number] AdmVxpJm2ZKMH3G+Heu2qwRIN8la2 NKa9vMa2E0/9hGT1zxZfp88xzhc0967-97-37F94:00:00 THIS REPORT HAS BEEN APPENDED [facility] ([facility]) Operative Report REPORT #: [id number] REPORT STATUS: Signed DATE: 08/19/23 TIME: 1900 PATIENT: CHARLIE HART UNIT #: [id number] #: [id number] ROOM #: P.0311 BED: 1 : 35 AGE: 88 SEX: M ATTEND: Tony Gautam MD ADM AUTHOR: Dilshad Strong MD ATTENTION EDITS and/or ADDENDA must be made in Patient Keeper for this note. Edits and ammendments created in [employer] are not visible in Patient Keeper or the legal medical record (HPF). -- OPERATION -- SURGERY START DATE/TIME:2023-08-19 19:00 PRE-OPERATIVE DIAGNOSIS:See Description POST-OPERATIVE DIAGNOSIS:See Description NAME OF PROCEDURE:See Description SURGEON:Dilshad Strong MD DRY CELL ASSEMBLY SUPERVISOR(S):See Description ANESTHESIA:See Description ESTIMATED BLOOD LOSS:10 ml's FINDINGS:See Description SPECIMEN(S) REMOVED AND/OR ALTERED:See Description COMPLICATION(S):See Description -- DESCRIPTION -- DESCRIPTION OF TECHNIQUE/PROCEDURE:Lead Extraction, Biventricular Pacemaker Upgrade Procedure Note Antenna Design Engineer: Dilshad Strong MD Fellow: [None][facility] [place] Referring Physician: MD Ish Date of Procedure: 08/19/23 Brief Clinical History: This is an 88yo man with a history of HFrEF, completeheart block presenting for implantation of a biventricular pacemaker. Procedure Performed:RV Lead RemovalUpgrade to BiV from dual chamber PPM (43272, 61409) The procedure was performed utilizing moderate sedation [...] to the inferior vena cava. A single 7-Spanish peel-away sheath was advanced over the wire. The coronary sinus wascannulated, and a venogram was performed with contrast using an 7 turkmen swancatheter in the coronary sinus. A [posterior [...] 2 ADDENDUM 1: 08/19/232048 PTKEEPERSedation Time: 60 rijmjvg2ft versed/50mcg fentanyl at 2048 ATTENTION EDITS and/or ADDENDA must be made in Patient Keeper for this note. Edits and ammendments created in [employer] are not visible in Patient Keeper or the legal medical record (HPF). [facility] #: [id number] OF REPORTOPOperative drfrdj3404-36-15A48:00:00P.GO-[id number] Available for patient jhmrHIDQBSFCILEFJJ0222-40-64M78:49:11 [facility] 2023-08-19 18:52:00 [id number] FzoGqPaMqH/UyitXBbDnT5vsTRlN7 bagnorFUiRTBgcEI4gEg3lPENCV8202-55-64R75:52:00 [facility] ([facility]) Hospitalist Progress Note REPORT #: [id number] REPORT STATUS: Signed DATE: 08/19/23 TIME: 1851 PATIENT: CHARLIE HART UNIT #: [id number] #: [id number] ROOM #: P.0311 BED: 1 : 35 AGE: 88 SEX: M ATTEND: Tony Gautam MD ADM AUTHOR: Tony Gautam MD ATTENTION EDITS and/or ADDENDA must be made in Patient Keeper for this note. Edits and ammendments created in [employer] are not visible in Patient Keeper or [...] anteroapical hypokinesis.The patient is being admitted to [facility] for higher level of care.Given his multiple [...] suggestive of angina. Hewas taken to the [place] emergency room on August 05, 2023 where he wasruled in for non-ST segment elevation myocardial infarction. He was started onheparin and transferred to [facility] where he was observed for a coupleof days and improved on medical therapy.Echocardiogram showed apical wall motion abnormalities with preserved leftventricular ejection fraction. As the patient was doing well on medicalmanagement, he was discharged from the other hospital without intervention. Hewas seen by his primary pleating machine operator, Dr Deyvi Celis and admitted forselective coronary angiogram on August 09, 2023 to [facility].This showed multivessel coronary artery disease, LAD 90 to 99% lesion, leftcircumflex proximal 90%, 95% obtuse marginal lesion; Occluded proximal RCA.Left ventricular end-diastolic pressure 12; Left ventricular ejection jpqrreps23%, severe anteroapical hypokinesis. He has been transferred to [facility] for consideration of CABG by Dr. João [...] IV ASDIR PRNIPRATROPIUM BROMIDE 0.5 MG NEB GAN3JdvsORKvsl HCL 0.1 MG PO Q8H PRNNITROGLYCERIN 0.4 [...] this note. Edits and ammendments created in [employer] are not visible in Patient Keeper or the legal medical record (HPF). RPT #: [id number] OF REPORTPRProgress mxxs7670-86-70O23:52:00P.OV-[id number] ailable for patient iqngRXXERKZMMBASGL7568-23-07C85:41:42 [facility] 2023-08-19 14:36:00 [id number] fwq6oOaRZeZ3EFAujWwbB9zTHNL4a j88QpXmzdiL+H3Be1gOv1QH3rjv6548-18-43E90:36:00 [facility] ([facility]) Intensive Care Progress Note REPORT #: [id number] REPORT STATUS: Signed DATE: 08/19/23 TIME: 1436 PATIENT: CHARLIE HART UNIT #: [id number] #: [id number] ROOM #: P.0311 BED: 1 : 35 AGE: 88 SEX: M ATTEND: Tony Gautam MD ADM AUTHOR: Chikis Burdick MD ATTENTION EDITS and/or ADDENDA must be made in Patient Keeper for this note. Edits and ammendments created in [facility] are not visible in Patient Keeper or the legal medical record (HPF). -- ASSESSMENT AND PLAN -- HOSPITAL COURSE TO DATE:Mr. Hart is an 88 year-old male with past medical history of hypertension,hyperlipidemia, coronary artery disease, carotid disease, presence of permanentpacemaker (2021), pulmonary hypertension, and ischemic cardiomyopathy withprevious ejection fraction 40-50% who was transferred to the CVICU from the [facility] 08/13 after CABG x 3 (incl. STANLEY-LAD) by Dr. Powell. 08/13: CABG X [address] Gilat1: Lt SC-Cephalic vein DVT on LUE Venous [...] IV ASDIR PRNIPRATROPIUM BROMIDE 0.5 MG NEB MTZ3JgxuNOUbzj HCL 0.1 MG PO Q8H PRNNITROGLYCERIN 0.4 [...] Edits and ammendments created in [facility] are not visible in Patient Keeper or the legal medical record (HPF). [facility] #: [id number] OF REPORTPRProgress eyxs8172-45-88N84:36:00P.SG-[id number] ailable for patient ustnISNEGTSBUXKJNF2922-99-67B89:35:46 [facility] 2023-08-19 10:54:00 RT1242507249xFCkN8TG 2eO42ElzLTqTxFIn05LMcfOGOYTUt aqf8XVfF5p4Lx5Yr6VpsootPhpx2308-94-49H44:54:00 [facility] ([facility]) Cardiology Progress Notes REPORT #: [id number] REPORT STATUS: Signed DATE: 08/19/23 TIME: 1054 PATIENT: CHARLIE HART UNIT #: [id number] #: [id number] [facility]: A : 35 AGE: 88 SEX: M ATTEND: Tony Gautam MD ADM AUTHOR: Kaleigh Gonzalez ATTENTION EDITS and/or ADDENDA must be made in Patient Keeper for this note. Edits and ammendments created in [employer] are not visible in Patient Keeper or [...] Failure-Plan for RV lead revision Dilshad Strong, [facility] – PRAGUEardiac ElectrophysiologistTexas Cardiac Arrhythmia Signed in PatientKeeper by [...] POC w/ Mr Hart, and daughter Elizabeth (#[phone]) via phone bothagreeable and wish to pursue [...] recurrent chest pain and angina, transferred from [place] ER08/05/23 for emergent bypass[facility] involving LAD (90-99% lesion), [...] Edits and ammendments created in [facility] are not visible in Patient Keeper or the legal medical record (HPF). RPT #: [id number] OF REPORTPRProgress cbxx8815-87-62O38:54:00P.BL-[id number] ailable for patient uvaoZIKXTXPTCQUOCI5175-12-80M03:21:19 [facility] 2023-08-19 10:09:00 [id number] 3hClGg0BMjZZ8ELTIUs/Tj3hwPqr0 +yDSH8MOyj9jEwTqsi1BGtQQMyh6760-23-56X67:09:00 [facility] HOSPITAL) Progress Note REPORT #: [id number] REPORT STATUS: Signed DATE: 08/19/23 TIME: 1009 PATIENT: CHARLIE HART UNIT #: [id number] #: [id number] ROOM #: P.0311 BED: 1 : 35 AGE: 88 SEX: M ATTEND: Tony Gautam MD ADM AUTHOR: Nile Fuentes MD ATTENTION EDITS and/or ADDENDA must be made in Patient Keeper for this note. Edits and ammendments created in [employer] are not visible in Patient Keeper or [...] this note. Edits and ammendments created in [employer] are not visible in Patient Keeper or the legal medical record (HPF). RPT #: [id number] OF REPORTPRProgress eycv1657-60-78K02:09:00P.ZP-LUYI50521210-2047GMXt ailable for patient xyqnYJIRFZGWMUFFLY0611-20-86F04:11:19 [facility] 2023-08-18 22:17:00 [id number] 1Ism4zFAyKcv1Q/ccSNcEuPi8RL6g w3BpC/JyeAgzWaKilXkDuur8/MK2202-54-11O15:17:00 [facility] ([facility]) Hospitalist Progress Note REPORT #: [id number] REPORT STATUS: Signed DATE: 08/18/23 TIME: 2216 PATIENT: CHARLIE HART UNIT #: [id number] #: [id number] ROOM #: P.0311 BED: 1 : 35 AGE: 88 SEX: M ATTEND: Tony Gautam MD ADM AUTHOR: Tony Gautam MD ATTENTION EDITS and/or ADDENDA must be made in Patient Keeper for this note. Edits and ammendments created in [employer] are not visible in Patient Keeper or [...] anteroapical hypokinesis.The patient is being admitted to [facility] for higher level of care.Given his multiple [...] suggestive of angina. Hewas taken to the [place] emergency room on August 05, 2023 where he wasruled in for non-ST segment elevation myocardial infarction. He was started onheparin and transferred to [facility] where he was observed for a coupleof days and improved on medical therapy.Echocardiogram showed apical wall motion abnormalities with preserved leftventricular ejection fraction. As the patient was doing well on medicalmanagement, he was discharged from the other hospital without intervention. Hewas seen by his primary pleating machine operator, Dr Deyvi Celis and admitted forselective coronary angiogram on August 09, 2023 to [facility].This showed multivessel coronary artery disease, LAD 90 to 99% lesion, leftcircumflex proximal 90%, 95% obtuse marginal lesion; Occluded proximal RCA.Left ventricular end-diastolic pressure 12; Left ventricular ejection hljhemmw09%, severe anteroapical hypokinesis. He has been transferred to [facility] for consideration of CABG by Dr. João [...] IV ASDIR PRNIPRATROPIUM BROMIDE 0.5 MG NEB SCL7WxvjTNWpjh HCL 0.1 MG PO Q8H PRNNITROGLYCERIN 0.4 [...] this note. Edits and ammendments created in [employer] are not visible in Patient Keeper or the legal medical record (HPF). [facility] #: [id number] OF REPORTPRProgress umac0258-48-27W47:17:00P.EU-JOES63280086-0106WXNh ailable for patient qgciDNSJWARQGAMSRW9650-35-23J73:21:16 [facility] 2023-08-18 20:42:00 [id number] +VxlfmhYgjWlk0MBIsIsmo/Kristopher 9hsQ1Y72Eh77DgUFqDFUZiWWUG78009-69-34M87:42:00 [facility] ([facility]) Operative Report REPORT #: [id number] REPORT STATUS: Signed DATE: 08/18/23 TIME: 2041 PATIENT: CHARLIE HART UNIT #: [id number] #: [id number] ROOM #: [facility] BED: 1 : 35 AGE: 88 SEX: M ATTEND: Tony Gautam MD ADM AUTHOR: Dilshad Strong MD ATTENTION EDITS and/or ADDENDA must be made in Patient Keeper for this note. Edits and ammendments created in [employer] are not visible in Patient Keeper or the legal medical record (HPF). -- OPERATION -- SURGERY START DATE/TIME:2023-08-18 20:42 PRE-OPERATIVE DIAGNOSIS:See Description POST-OPERATIVE DIAGNOSIS:See Description NAME OF PROCEDURE:See Description SURGEON:Dilshad Strong MD DRY CELL ASSEMBLY SUPERVISOR(S):See Description ANESTHESIA:See Description ESTIMATED BLOOD LOSS:10 ml's FINDINGS:See Description SPECIMEN(S) REMOVED AND/OR ALTERED:See Description COMPLICATION(S):See Description -- DESCRIPTION -- DESCRIPTION OF TECHNIQUE/PROCEDURE:Atrial lead extraction and new atrial lead placement Procedure Note Antenna Design Engineer: Dilshad Strong MDFellow: [None]Facility: [facility] Device Print Shop Helper: Salcedo Referring Physician: MD Ish Date of [...] this note. Edits and ammendments created in [employer] are not visible in Patient Keeper or the legal medical record (HPF). RPT #: [id number] OF REPORTOPOperative hisovt8023-67-29F03:42:00P.GD-[id number] Available for patient ynqmVEQNPXBERHGRAC2530-60-65J33:02:24 [facility] 2023-08-18 15:06:00 [id number]+zTAFRu zBt/SNQU7VH69LmvqBKwpkYmiqG0D U77FGiJdOYSAav0+kwTeyJYTyrb6399-27-08I51:06:00 [facility] ([facility]) Intensive Care Progress Note REPORT #: [id number] REPORT STATUS: Signed DATE: 08/18/23 TIME: 1505 PATIENT: CHARLIE HART UNIT #: [id number] #: [id number] ROOM #: P.0311 BED: 1 : 35 AGE: 88 SEX: M ATTEND: Tony Gautam MD ADM AUTHOR: Chikis Burdick MD ATTENTION EDITS and/or ADDENDA must be made in Patient Keeper for this note. Edits and ammendments created in [employer] are not visible in Patient Keeper or the legal medical record (HPF). -- ASSESSMENT AND PLAN -- HOSPITAL COURSE TO DATE:Mr. Hart is an 88 year-old male with past medical history of hypertension,hyperlipidemia, coronary artery disease, carotid disease, presence of permanentpacemaker (2021), pulmonary hypertension, and ischemic cardiomyopathy withprevious ejection fraction 40-50% who was transferred to the CVICU from the [facility] 08/13 after CABG x 3 (incl. STANLEY-LAD) [...] IV ASDIR PRNIPRATROPIUM BROMIDE 0.5 MG NEB BKT3YlehOYXuhu HCL 0.1 MG PO Q8H PRNNITROGLYCERIN 0.4 [...] this note. Edits and ammendments created in [employer] are not visible in Patient Keeper or the legal medical record (HPF). RPT #: [id number] OF REPORTPRProgress pwik4548-18-64J79:06:00P.CF-HURZ81150767-8587HWEg ailable for patient jxwrCXCEYBCXTRLJUV9350-25-61A57:27:22 [facility] 2023-08-18 12:42:00 [id number] SUbIKk+/rGnP1Kc22F8Fxo7FkLQs6 o9zB9t3fkAOKCX1pgHjbK0eh/fU4692-31-48I92:42:00 [facility] ([facility]) Cardiology Progress Notes REPORT #: [id number] REPORT STATUS: Signed DATE: 08/18/23 TIME: 1242 PATIENT: CHARLIE HART UNIT #: [id number] #: [id number] ROOM #: P.0418 BED: A : 35 AGE: 88 SEX: M ATTEND: Tony Gautam MD ADM AUTHOR: Trina Marquez MD [facility] ATTENTION EDITS and/or ADDENDA must be made in Patient Keeper for this note. Edits and ammendments created in [employer] are not visible in Patient Keeper or [...] IV ASDIR PRNIPRATROPIUM BROMIDE 0.5 MG NEB SVE4XbvuNYEqrp HCL 0.1 MG PO Q8H PRNNITROGLYCERIN 0.4 [...] in PatientKeeper by TRINA MARQUEZ MD on 08/18/23 at 12:46 Cosigned by GINO DENG MD on 09/06/23 at 13:59 at 1359 at 1359ATTENTION EDITS and/or ADDENDA must be made in Patient Keeper for this note. Edits and ammendments created in [employer] are not visible in Patient Keeper or the legal medical record (HPF). RPT #: [id number] OF REPORTPRProgress oumk6640-68-31W34:42:00P.NI-ZRMQ40834386-8629KUNb ailable for patient qtkpSBFOCJNFLBEAWL1877-27-56X90:13:56 [facility] 2023-08-18 09:45:00 [id number] rPLgTx6sdEo31o+7kavQ//1lZWU/Y VWsqY4AWVNFHoxPmW5dwxe3QzXm6854-54-89B27:45:00 [facility] ([facility]) Progress Note REPORT #: [id number] REPORT STATUS: Signed DATE: 08/18/23 TIME: 944 PATIENT: CHARLIE HART UNIT #: [id number] #: [id number] ROOM #: P.0311 BED: 1 : 35 AGE: 88 SEX: M ATTEND: Tony Gautma MD ADM AUTHOR: Nile Fuentes MD ATTENTION EDITS and/or ADDENDA must be made in Patient Keeper for this note. Edits and ammendments created in [employer] are not visible in Patient Keeper or [...] ASDIR PRN IPRATROPIUM BROMIDE 0.5 MG NEB HDW0SqqxAHIvse HCL 0.1 MG PO Q8H PRNNITROGLYCERIN 0.4 [...] Edits and ammendments created in [facility] are not visible in Patient Keeper or the legal medical record (HPF). RPT #: [id number] OF REPORTPRProgress kfrz7620-19-61S56:45:00P.WH-GCZJ64580106-7931ZQDu ailable for patient oivvPRKDGFXQMFYTRY9504-75-54A84:49:18 [facility] 2023-08-17 18:19:00 [id number] /Y/nAS0+h7SujNDBIIRGKStmD85FF FXcSshl6eQQn6cRjkYLOkoxary87438-16-31H33:19:00 [facility] ([facility]) Hospitalist Progress Note REPORT #: [id number] REPORT STATUS: Signed DATE: 08/17/23 TIME: 1818 PATIENT: CHARLIE HART UNIT #: [id number] #: [id number] ROOM #: P.0311 BED: 1 : 35 AGE: 88 SEX: M ATTEND: Tony Gautam MD ADM AUTHOR: Temo Herrera MD ATTENTION EDITS and/or ADDENDA must be made in Patient Keeper for this note. Edits and ammendments created in [employer] are not visible in Patient Keeper or [...] anteroapical hypokinesis.The patient is being admitted to [facility] for higher level of care.Given his multiple [...] identified. Dopplerand echo contrast study shows no wwzzt-zh-utcr atrial level shunt.5. Aortic valve: Cusp separation [...] suggestive of angina. Hewas taken to the [place] emergency room on August 05, 2023 where he wasruled in for non-ST segment elevation myocardial infarction. He was started onheparin and transferred to [facility] where he was observed for a coupleof days and improved on medical therapy.Echocardiogram showed apical wall motion abnormalities with preserved leftventricular ejection fraction. As the patient was doing well on medicalmanagement, he was discharged from the other hospital without intervention. Hewas seen by his primary pleating machine operator, Dr Deyvi Celis and admitted forselective coronary angiogram on August 09, 2023 to [facility].This showed multivessel coronary artery disease, LAD 90 to 99% lesion, leftcircumflex proximal 90%, 95% obtuse marginal lesion; Occluded proximal RCA.Left ventricular end-diastolic pressure 12; Left ventricular ejection zyvlfmki74%, severe anteroapical hypokinesis. He has been transferred to [facility] for consideration of CABG by Dr. João [...] IV ASDIR PRNIPRATROPIUM BROMIDE 0.5 MG NEB YAY4TrwlJHLtsq HCL 0.1 MG PO Q8H PRNNITROGLYCERIN 0.4 [...] this note. Edits and ammendments created in [employer] are not visible in Patient Keeper or the legal medical record (HPF). RPT #: [id number] OF REPORTPRProgress wspc5958-07-28O38:19:00P.CG-ITJF67867385-3796KLXl ailable for patient hagnWGCONNWOZEALNM5560-41-41J61:26:07 [facility] 2023-08-17 14:07:00 [id number] FuuDqG6oq6fSWQjtKHWEbsoi2mwz2 x6hBeM0znYwLVztSioswYP2f+QW0114-45-37H13:07:00 [facility] ([facility]) Intensive Care Progress Note REPORT #: [id number] REPORT STATUS: Signed DATE: 08/17/23 TIME: 1407 PATIENT: CHARLIE HART UNIT #: [id number] #: [id number] ROOM #: P.0311 BED: 1 : 35 AGE: 88 SEX: M ATTEND: Tony Gautam MD ADM AUTHOR: Chikis Burdick MD ATTENTION EDITS and/or ADDENDA must be made in Patient Keeper for this note. Edits and ammendments created in [employer] are not visible in Patient Keeper or the legal medical record (HPF). -- ASSESSMENT AND PLAN -- HOSPITAL COURSE TO DATE:Mr. Hart is an 88 year-old male with past medical history of hypertension,hyperlipidemia, coronary artery disease, carotid disease, presence of permanentpacemaker (2021), pulmonary hypertension, and ischemic cardiomyopathy withprevious ejection fraction 40-50% who was transferred to the CVICU from the [facility] 08/13 after CABG x 3 (incl. STANLEY-LAD) [...] with the Clinical Pharmacist Full Code per [facility] Advanced Care Guidelines with daughter as GUY [...] IV ASDIR PRNIPRATROPIUM BROMIDE 0.5 MG NEB FGV8UsyfNYIakq HCL 0.1 MG PO Q8H PRNNITROGLYCERIN 0.4 [...] this note. Edits and ammendments created in [employer] are not visible in Patient Keeper or the legal medical record (HPF). RPT #: [id number] OF REPORTPRProgress giaf2605-51-01J07:07:00P.IZ-DLVJ44251905-5902YAFm ailable for patient aiuhUOMTLDHVZIOSLI5056-09-61J92:26:46 [facility] 2023-08-17 11:45:00 [id number] SaSCrEvbvOxcv34T2/Vrr55uHHslb BJqETqfEt+4M/ZoAGhlcmqrrR2P0662-92-15X35:45:00 [facility] ([facility]) Cardiology Progress Notes REPORT #: [id number] REPORT STATUS: Signed DATE: 08/17/23 TIME: 1145 PATIENT: CHARLIE HART UNIT #: [id number] #: [id number] ROOM #: [facility] BED: A : 35 AGE: 88 SEX: M ATTEND: Tony Gautam MD ADM AUTHOR: Trina Marquez MD CF1 ATTENTION EDITS and/or ADDENDA must be made in Patient Keeper for this note. Edits and ammendments created in [employer] are not visible in Patient Keeper or [...] IV ASDIR PRNIPRATROPIUM BROMIDE 0.5 MG NEB CAY6YotfLZVanh HCL 0.1 MG PO Q8H PRNNITROGLYCERIN 0.4 [...] this note. Edits and ammendments created in [employer] are not visible in Patient Keeper or the legal medical record (HPF). [facility] #: [id number] OF REPORTPRProgress yclt7875-98-55G39:45:00P.KJ-KEJE62745720-7816EVAi ailable for patient ljsaDVVWRTEGHQJSPV1163-67-12I59:25:54 [facility] 2023-08-16 19:45:00 [id number] h9l7MrD5aG/r8fMTga3gQTMi7PlF2 Dy9pDzf01bnTdpfDQKzWs196PMd5278-34-23O37:45:00 [facility] ([facility]) Hospitalist Progress Note REPORT #: [id number] REPORT STATUS: Signed DATE: 08/16/23 TIME: 1944 PATIENT: CHARLIE HART UNIT #: [id number] #: [id number] [facility] B[facility]: 1 : 35 AGE: 88 SEX: M ATTEND: Tony Gautam MD ADM AUTHOR: Temo Herrera MD ATTENTION EDITS and/or ADDENDA must be made in Patient Keeper for this note. Edits and ammendments created in [employer] are not visible in Patient Keeper or [...] anteroapical hypokinesis.The patient is being admitted to [facility] for higher level of care.Given his multiple [...] identified. Dopplerand echo contrast study shows no zuzun-vx-bopp atrial level shunt.5. Aortic valve: Cusp separation [...] suggestive of angina.He was taken to the [place] emergency room on August 05, 2023 where he wasruled in for non-ST segment elevation myocardial infarction.He was started on heparin and transferred to [facility] where he wasobserved for a couple of days and improved on medical therapy.Echocardiogram showed apical wall motion abnormalities with preserved leftventricular ejection fraction.As the patient was doing well on medical management[facility].He was seen by his primary pleating machine operator, Dr Deyvi Celis and admitted forselective coronary angiogramon August 09, 2023 to [facility].This showed multivessel coronary artery disease,LAD 90 to 99% lesion, left circumflex proximal 90%, 95% obtuse marginal lesion;Occluded proximal RCA. Left ventricular end-diastolic pressure 12;Left ventricular ejection fraction 40%, severe anteroapical hypokinesis.He has been transferred to [facility] for consideration of CABG by Dr.Eyal Powell.When [...] IV ASDIR PRNIPRATROPIUM BROMIDE 0.5 MG NEB CSJ3MyfeBCTezh HCL 0.1 MG PO Q8H PRNNITROGLYCERIN 0.4 [...] this note. Edits and ammendments created in [employer] are not visible in Patient Keeper or the legal medical record (HPF). [facility] #: [id number] OF REPORTPRProgress hbzj4202-81-09A53:45:00P.WQ-QTQO67207246-2236HZOq ailable for patient knvsDDLIGDOIIZFYAE7827-29-53Y61:53:21 [facility] 2023-08-16 17:48:00 [id number] U9t2V0UwtecLbIAl3K+AvaNUUU0HV 8ob7kcxmgLPCR0EAFKF/zN7AsvJ5498-69-24U02:48:00 [facility] ([facility]) Cardiology Progress Notes REPORT #: [id number] REPORT STATUS: Signed DATE: 08/16/23 TIME: 1747 PATIENT: CHARLIE HART UNIT #: [id number] #: [id number] ROOM #: [facility]8 BED: A : 35 AGE: 88 SEX: M ATTEND: Tony Gautam MD ADM AUTHOR: Trina Marquez MD CF1 ATTENTION EDITS and/or ADDENDA must be made in Patient Keeper for this note. Edits and ammendments created in [employer] are not visible in Patient Keeper or [...] IV ASDIR PRNIPRATROPIUM BROMIDE 0.5 MG NEB LEF0QuprVDWbvs HCL 0.1 MG PO Q8H PRNNITROGLYCERIN 0.4 [...] this note. Edits and ammendments created in [employer] are not visible in Patient Keeper or the legal medical record (HPF). RPT #: [id number] OF REPORTPRProgress mwgh5983-93-19R56:48:00P.IZ-XGVX21144566-1810OMJq ailable for patient ckheJIXLIUCSOIWMNQ9148-35-31L14:17:30 [facility] 2023-08-16 13:50:00 [id number]/U/UUJ4l zTvUHsL4MRuGP5tCHkNWYeFAGXO39 mTbeiOqxW/UxX3sTpqbpVEQfLRO6806-83-35Y30:50:00 [facility] ([facility]) ElectroPhys. Progress Notes REPORT #: [id number] REPORT STATUS: Signed DATE: 08/16/23 TIME: 1350 PATIENT: CHARLIE HART UNIT #: [id number] #: [id number] ROOM #: P.0311 BED: 1 : 35 AGE: 88 SEX: M ATTEND: Tony Gautam MD ADM AUTHOR: Dilshad Strong MD ATTENTION EDITS and/or ADDENDA must be made in Patient Keeper for this note. Edits and ammendments created in [employer] are not visible in Patient Keeper or the legal medical record ([facility]). -- ASSESSMENT AND PLAN -- PROBLEMS: [...] this note. Edits and ammendments created in [employer] are not visible in Patient Keeper or the legal medical record ([facility]). [facility] #: [id number] OF REPORTPRProgress ukgf2694-30-62A26:50:00P.DE-KQOJ29314707-9347ILGy ailable for patient soztEBVAVGRCAJCDFI3638-77-88K82:51:57 [facility] 2023-08-16 13:30:00 [id number] 1lGNTwod3CtsYEx5HiiKarVaYbfvt fNEG8asN0gjtx/HKlSQrxn7iwGS1792-53-50O31:30:16352 0-[address] [address]QFRWEGU NAME: CHARLIE HART ADMIT DATE: 08/09/23ACCOUNT NO: [id number] ROOM NO: P.0311 AGE: 88 REPORT TYPE: eTRANSESOPHAGEL REPORT SEX: M ADMITTING PHYSICIAN: Tony Gautam MD ATTENDING PHYSICIAN: Tony Gautam MD *[facility]*[address] [place], [place] [address]Phone Transesophageal Echocardiogram Patient: Charlie HartStudy Date: 08/13/2023P:URN: [id number]: [id number]#: [id number]: 1935ge: 88Gender: MHeight: 68.1 in / 173 [...] identified. Dopplerand echo contrast study shows no dyfvx-cj-jmsh atrial level shunt.Aorta:Aorta: No evidence of aneurysm, [...] Doppler and echo contrast study shows no xxemg-tp-ojeu atrial level shunt.5. Aortic valve: Cusp separation is mildly reduced. The findings are consistent with mild stenosis.6. Mitral valve: There is no evidence of vegetation.7. Tricuspid valve: There is no evidence of a vegetation.8. Pulmonic valve: There is no evidence of a vegetation.Electronically signed by Gino Deng M.D.08/16/2023 13:30 at 1330 PATIENT NAME: CHARLIE HART saipvat2358-56-62W18:30:00P.UAU90065969-7945OCUpc ilable for patient qlpeVACKFRVUOLXHCI6018-18-43P99:31:16 [facility] 2023-08-16 12:38:00 [id number] 6zsP6+rvBfEKDZiSUujmJzrQ4KvFe sGBYCyqxxmZgHodstPIgjss8Hu96953-84-43F05:38:00 [facility] ([facility]) Intensive Care Progress Note REPORT #: [id number] REPORT STATUS: Signed DATE: 08/16/23 TIME: 1238 PATIENT: CHARLIE HART UNIT #: [id number] #: [id number] ROOM #: P.0311 BED: 1 : 35 AGE: 88 SEX: M ATTEND: Tony Gautam MD ADM AUTHOR: Chikis Burdick MD ATTENTION EDITS and/or ADDENDA must be made in Patient Keeper for this note. Edits and ammendments created in [employer] are not visible in Patient Keeper or the legal medical record (HPF). -- ASSESSMENT AND PLAN -- HOSPITAL COURSE TO DATE:Mr. Hart is an 88 year-old male with past medical history of hypertension,hyperlipidemia, coronary artery disease, carotid disease, presence of permanentpacemaker (2021), pulmonary hypertension, and ischemic cardiomyopathy withprevious ejection fraction 40-50% who was transferred to the CVICU from the [facility] 08/13 after CABG x [address] [...] IV ASDIR PRNIPRATROPIUM BROMIDE 0.5 MG NEB XIF4BkqvSEQdxy HCL 0.1 MG PO Q8H PRNNITROGLYCERIN 0.4 [...] Edits and ammendments created in [facility] are not visible in Patient Keeper or the legal medical record (HPF). [facility] #: [id number] OF REPORTPRProgress bgvp2230-85-28C41:38:00P.HB-UWHE51289636-9792FPPy ailable for patient tbtaIORXGPESOIGBLP0443-45-33Y90:50:42 [facility] 2023-08-15 17:27:00 [id number]/woWc1Xc uDgtorvMDbEkmk1kAL+OJTg+yA4he 7hVhRjWCWkI3iWaPoGxM7tuB81z0645-00-12P69:27:00 [facility] ([facility]) Cardiology Progress Notes REPORT #: [id number] REPORT STATUS: Signed DATE: 08/15/23 TIME: 172 PATIENT: CHARLIE HART UNIT #: [id number] #: [id number] ROOM #: [facility]8 BED: A : 35 AGE: 88 SEX: M ATTEND: Tony Gautam MD ADM AUTHOR: Trina Marquez MD CF1 ATTENTION EDITS and/or ADDENDA must be made in Patient Keeper for this note. Edits and ammendments created in [facility] are not visible in Patient Keeper [...] this note. Edits and ammendments created in [employer] are not visible in Patient Keeper or the legal medical record (HPF). RPT #: [id number] OF REPORTPRProgress oapm8840-27-76B53:27:00P.CM-YBBG90546877-6376YSTb ailable for patient qbwqHQVYAIVZWIVSFY2149-51-95J50:13:54 [facility] 2023-08-15 11:45:00 [id number] 5TjMCgFRL8zEQJeMdsK3kSIU1xl5j f7Rm3UOQGQ7mSgGwqHnn0yA4T+q9156-43-27R84:45:00 [facility] ([facility]) Hospitalist Progress Note REPORT #: [id number] REPORT STATUS: Signed DATE: 08/15/23 TIME: 1145 PATIENT: CHARLIE HART UNIT #: [id number] #: [id number] ROOM #: P.0311 BED: 1 : 35 AGE: 88 SEX: M ATTEND: Tony Gautam MD ADM AUTHOR: Tony Gautam MD ATTENTION EDITS and/or ADDENDA must be made in Patient Keeper for this note. Edits and ammendments created in [employer] are not visible in Patient Keeper or [...] anteroapical hypokinesis.The patient is being admitted to [facility] for higher level of care.Given his multiple [...] suggestive of angina.He was taken to the [place] emergency room on August 05, 2023 where he wasruled in for non-ST segment elevation myocardial infarction.He was started on heparin and transferred to [facility] where he wasobserved for a couple of days and improved on medical therapy.Echocardiogram showed apical wall motion abnormalities with preserved leftventricular ejection fraction.As the patient was doing well on medical management, [facility].He was seen by his primary pleating machine operator, Dr Deyvi Celis and admitted forselective coronary angiogramon August 09, 2023 to [facility].This showed multivessel coronary artery disease,LAD 90 to 99% lesion, left circumflex proximal 90%, 95% obtuse marginal lesion;Occluded proximal RCA. Left ventricular end-diastolic pressure 12;Left ventricular ejection fraction 40%, severe anteroapical hypokinesis.He has been transferred to [facility] for consideration of CABG by Dr.Eyal Powell.When [...] this note. Edits and ammendments created in [employer] are not visible in Patient Keeper or the legal medical record (HPF). RPT #: [id number] OF REPORTPRProgress [id number]:00P.[id number] ailable for patient [id number]:08:23 [facility] [facility] 2023-08-15 10:29:00 [id number] RGpvS2V4U2jdwSQL3CxmGgbL69Wxu J1A4USjNh3w6c47R4EMbqepuafv5992-92-22S66:29:00 [facility] ([facility]) Cardiology Consultation REPORT #: [id number] REPORT STATUS: Signed DATE: 08/15/23 TIME: 1029 PATIENT: CHARLIE HART UNIT #: [id number] #: [id number] ROOM #: P.0311 BED: 1 : 35 AGE: 88 SEX: M ATTEND: Tony Gautam MD ADM AUTHOR: Kaleigh Gonzalez ATTENTION EDITS and/or ADDENDA must be made in Patient Keeper for this note. Edits and ammendments created in [employer] are not visible in Patient Keeper or [...] possible RA lead revision. Gen: NAD, A Gr9KMSHJ: anicteric sclera, MMMNeck: supple, no JVDCV: RRR, [...] recurrent chest pain and angina, transferred from [place] ER08/05/23 for emergent bypass, coronary angiogram on 08/09/22 at [facility] for multivessel CAD involving LAD (90-99% lesion), [...] vitamin B12 deficiency,PPM November 2021 PAST SURGICAL HISTORY:C 08/09/2023, PPM November 2021 FAMILY HISTORY:Noncontributory -SOCIAL HISTORY- LIVING SITUATION:, lives at home with and one of the daughters -- ALLERGIES/HOME MEDS -- ALLERGIES:No Known Allergies (UNKNOWN - Allergy) HOME MEDICATIONS:AREDS 2 CAP PO DAILYaspirin chewable tablet 81 MG PO DAILYAtorvastatin Tab (Lipitor Tab) 10 MG PO DAILYClopidogrel Tab (Plavix Tab) 75 MG PO DAILYFosamax tablet (alendronate) 70 MG PO Q6GQppvyhwbvt Mononitrate Tab.ER (Imdur Tab) 30 MG PO [...] this note. Edits and ammendments created in [employer] are not visible in Patient Keeper or the legal medical record (HPF). [facility] #: [id number] OF REPORTDWBktfsgsnadnh8611-12-31U02:29:00P.PK-NO [id number] for patient pftvSHURYFMLHHGYKS4346-64-66E27:30:04 [facility] 2023-08-15 09:11:00 [id number] Elb6z71/Wh13dU8/LUe/w6o5e5ltm 3l7PSfiUe0rSDa0CORnuiNXznHK4940-23-20R24:11:00 [facility] ([facility]) Intensive Care Progress Note REPORT #: [id number] REPORT STATUS: Signed DATE: 08/15/23 TIME: 910 PATIENT: CHARLIE HART UNIT #: [id number] #: [id number] ROOM #: P.0311 BED: 1 : 35 AGE: 88 SEX: M ATTEND: Tony Gautam MD ADM AUTHOR: Yoav Hernandez MD ATTENTION EDITS and/or ADDENDA must be made in Patient Keeper for this note. Edits and ammendments created in [facility] are not visible in Patient Keeper [...] reviewed with the clinical pharmacist Yoav Hernandez, [facility] -- SUBJECTIVE -- PATIENT NARRATIVE:Overnight [...] D L MAG (08/15/23 03:05)MAGNESIUM 1.9 MAG (01/18/24 18:40) MAGNESIUM 1.6 BASIC METABOLIC PANEL (08/14/23 [...] Edits and ammendments created in [facility] are not visible in Patient Keeper or the legal medical record (HPF). RPT #: [id number] OF REPORTPRProgress mlkg6502-34-51X25:11:00P.SN-LQNZ74655081-5099AFEa ailable for patient dexdHHBFJIRLGPUBWM8338-98-82V61:13:18 [facility] 2023-08-14 16:45:00 [id number]/CB 9KR6Mk0ggu7HY1qe8JVNAuedbgG/D XFXW+6rLbOquG2/zcl2/x6D5wNZ3114-71-38F61:45:00 [facility] ([facility]) Hospitalist Progress Note REPORT #: [id number] REPORT STATUS: Signed DATE: 08/14/23 TIME: 1644 PATIENT: CHARLIE HART UNIT #: [id number] #: [id number] ROOM #: P.0311 BED: 1 : 35 AGE: 88 SEX: M ATTEND: Tony Gautam MD ADM AUTHOR: Tony Gautam MD ATTENTION EDITS and/or ADDENDA must be made in Patient Keeper for this note. Edits and ammendments created in [facility]BL[facility] are not visible in Patient Keeper [...] anteroapical hypokinesis.The patient is being admitted to [facility] for higher level of care.Given his multiple [...] suggestive of angina.He was taken to the [place] emergency room on August 05, 2023 where he wasruled in for non-ST segment elevation myocardial infarction.He was started on heparin and transferred [facility] where he wasobserved for a couple of days and improved on medical therapy.Echocardiogram showed apical wall motion abnormalities with preserved leftventricular ejection fraction.As the patient was doing well on medical management, [facility].He was seen by his primary pleating machine operator, Dr Deyvi Celis and admitted forselective coronary angiogramon August 09, 2023 to [facility].This showed multivessel coronary artery disease,LAD 90 to 99% lesion, left circumflex proximal 90%, 95% obtuse marginal lesion;Occluded proximal RCA. Left ventricular end-diastolic pressure 12;Left ventricular ejection fraction 40%, severe anteroapical hypokinesis.He has been transferred to [facility] for consideration of CABG by Dr.Eyal Powell.When [...] IV ASDIR PRNtraMADol HCL 50 MG PO T5MUQHMTZJIDOG TARTRATE 5 MG IV Q6H PRNACETAMINOPHEN 650 MG PO V1JZMCDITW CHLORIDE 10 mL 10 ML IV ASDIRFERROUS [...] this note. Edits and ammendments created in [employer] are not visible in Patient Keeper or the legal medical record (HPF). [facility] #: [id number] OF REPORTPRProgress emrn4712-91-38J01:45:00P.MD-ENLZ40547853-1375OQTm ailable for patient gbjiLXFTHLJSREACNN2191-16-00R66:00:16 [facility] 2023-08-14 15:27:00 [id number]/ D41UulEf1t+BDMXqHYNO1Px6Lpkz7 L2aiH4SVXIZQDguUv/ZYOOXNwvY3887-47-90P29:27:00 [facility] ([facility]) Cardiology Progress Notes REPORT #: [id number] REPORT STATUS: Signed DATE: 08/14/23 TIME: 1526 PATIENT: CHARLIE HART UNIT #: [id number] #: [id number] ROOM #: [facility] BED: 1 : 35 AGE: 88 SEX: M ATTEND: Tony Gautam MD ADM AUTHOR: Trina Marquez MD CF1 ATTENTION EDITS and/or ADDENDA must be made in Patient Keeper for this note. Edits and ammendments created in [employer] are not visible in Patient Keeper or the legal medical record ([facility]). -- CO-SIGNATURE -- COMMENTS:Agree with the findings and plan as documented by HousestaffI have seen and examined this patient * my personal evaluation is S/p OLABA-aks-gbalxqwxsdryos atrial fibrillation with rapid ventricularresponse-converted back to [...] IV ASDIR PRNtraMADol HCL 50 MG PO H0KGERJBTRXEAB TARTRATE 5 MG IV Q6H PRNACETAMINOPHEN 650 MG PO R7FEFEVTLN CHLORIDE 10 mL 10 ML IV ASDIRFERROUS [...] this note. Edits and ammendments created in [employer] are not visible in Patient Keeper or the legal medical record (HPF). RPT #: [id number] OF REPORTPRProgress hcxo4998-94-90E58:27:00P.XM-REJU60284631-2832CGXz ailable for patient wnxwFIYGLLXMKDAQZA7991-39-92H57:50:48 [facility] 2023-08-14 10:33:00 [id number]+lp ey/3iOdWANc+YEEw/S7btJGEQflVT WK2yl4pIuUipfinIq4+Ud5SrNOo9685-70-51U60:33:00 [facility] ([facility]) Intensive Care Progress Note REPORT #: [id number] REPORT STATUS: Signed DATE: 08/14/23 TIME: 1033 PATIENT: CHARLIE HART UNIT #: [id number] #: [id number] ROOM #: P.0311 BED: 1 : 35 AGE: 88 SEX: M ATTEND: Tony Gautam MD ADM AUTHOR: Yoav Hernandez MD ATTENTION EDITS and/or ADDENDA must be made in Patient Keeper for this note. Edits and ammendments created in [employer] are not visible in Patient Keeper or [...] reviewed with the clinical pharmacist Yoav Hernandez, [facility] -- SUBJECTIVE -- PATIENT NARRATIVE:Overnight [...] IV ASDIR PRNtraMADol HCL 50 MG PO V3JZHGNAWNSBOA TARTRATE 5 MG IV Q6H PRNACETAMINOPHEN 650 [...] this note. Edits and ammendments created in [employer] are not visible in Patient Keeper or the legal medical record (HPF). RPT #: [id number] OF REPORTPRProgress gama6100-09-99W69:33:00P.UU-GURV10673226-3679GFJj ailable for patient omhiHCWFRRRTSCUWYZ5584-23-47R68:36:59 [facility] 2023-08-14 08:55:00 [id number] MrkXn2WkCDgGNr/wqqvw8VMMkMhft RyLZXs19k6KrtRrQIbfDrpEGV6Q3123-23-27O94:55:00 [facility] ([facility]) Progress Note REPORT #: [id number] REPORT STATUS: Signed DATE: 08/14/23 TIME: 854 PATIENT: CHARLIE HART UNIT #: [id number] #: [id number] ROOM #: P.0311 BED: 1 : 35 AGE: 88 SEX: M ATTEND: Tony Gautam MD ADM AUTHOR: Nile Fuentes MD ATTENTION EDITS and/or ADDENDA must be made in Patient Keeper for this note. Edits and ammendments created in [facility] are not visible in Patient Keeper [...] IV ASDIR PRNtraMADol HCL 50 MG PO J5XTMFBCFKRHEI TARTRATE 5 MG IV Q6H PRNACETAMINOPHEN 650 [...] this note. Edits and ammendments created in [employer] are not visible in Patient Keeper or the legal medical record (HPF). [facility] #: [id number] OF REPORTPRProgress plxx6576-77-78E97:55:00P.PA-MTSL24603988-7489LLMj ailable for patient tdtpVYFFIFIMPCBSMV8474-39-75W41:59:06 [facility] 2023-08-13 19:00:00 [id number] SafVGdPu/lze7Xf4D7WW4rb/ypYwX m//DegFFLRfy1za74wjrZwZ5UVw1924-39-67H92:00:00 [facility] ([facility]) Operative Report REPORT #: [id number] REPORT STATUS: Signed DATE: 08/13/23 TIME: 190 PATIENT: CHARLIE HART UNIT #: [id number] #: [id number] ROOM #: [facility] BED: 1 : 35 AGE: 88 SEX: M ATTEND: Tony Gautam MD ADM AUTHOR: João Powell MD ATTENTION EDITS and/or ADDENDA must be made in Patient Keeper for this note. Edits and ammendments created in [employer] are not visible in Patient Keeper or the legal medical record ([facility]). -- OPERATION -- SURGERY START DATE/TIME:2023-08-13 09:47 PRE-OPERATIVE DIAGNOSIS:See Full Summary POST-OPERATIVE DIAGNOSIS:See Full Summary INDICATION(S):See Full Summary NAME OF PROCEDURE:See Full Summary TIME OUT COMPLETED:Yes SURGEON:João Powell MD DRY CELL ASSEMBLY SUPERVISOR(S):See Full Summary ANESTHESIA:See Full Summary ESTIMATED BLOOD LOSS:800 ml's FINDINGS:See Full Summary SPECIMEN(S) REMOVED AND/OR ALTERED:See Full Summary COMPLICATION(S):See Full Summary -- DESCRIPTION -- DESCRIPTION OF TECHNIQUE/PROCEDURE: SURGEON 1ST DRY CELL ASSEMBLY SUPERVISOR 2ND DRY CELL ASSEMBLY SUPERVISOR DATE OFOPERATION Marylou Bosch P.A. Whitney Riemer, [...] August 05, 2023 thepatient was admitted to [place] emergency department where non-STelevation myocardial infarction was ruled out. He was transferred to [facility] for observation. As his symptoms subsided, the patient wasdischarged and underwent a LHC (August 09, 2023). He was found to havecritical multivessel coronary artery disease (95 % LCx 99% LAD and INSURANCE AGENTS SUPERVISOR of theRCA). Due to the above findings, the patient was transferred to [facility] for an urgent surgical coronary revascularization. Ofnote, [...] the complexity of this surgery, a surgical services asst wasnecessary. Wiley Sierra PA-C was present and scrubbed for the entirety of thecase. Wiley was essential for the proper positioning, manipulation ofinstruments, maintenance/exposure of a clear surgical field.He helpedinitiating/weaning from cardiopulmonary bypass and completion of allanastomoses as described above. This operation could not have been safelyperformed (without compromising the technical results or length of theprocedure) without the assistance of a skilled surgical first assistant. João Powell M.D. Signed in PatientKeeper by João Powell MD on 08/18/23 at 15:37 at 1537ATTENTION EDITS and/or ADDENDA must be made in Patient Keeper for this note. Edits and ammendments created in [employer] are not visible in Patient Keeper or the legal medical record (HPF). [facility] #: [id number] OF REPORTOPOperative fqisdi1294-77-97P14:00:00P.XV-[id number] Available for patient imuoFFIDLRLUDYNZSH8799-64-15K71:38:22 [facility] 2023-08-13 17:55:00 [id number] n56/k9MsWM0hl0AJ8ehkfxR9dEG/N rFMq/8jqbFUhrdWXY4spSfMhe184174-80-65W82:55:00 [facility] ([facility]) Hospitalist Progress Note REPORT #: [id number] REPORT STATUS: Signed DATE: 08/13/23 TIME: 1754 PATIENT: CHARLIE HART UNIT #: [id number] #: [id number] ROOM #: P.0311 BED: 1 : 35 AGE: 88 SEX: M ATTEND: Tony Gautam MD ADM AUTHOR: Tony Gautam MD ATTENTION EDITS and/or ADDENDA must be made in Patient Keeper for this note. Edits and ammendments created in [employer] are not visible in Patient Keeper or [...] anteroapical hypokinesis.The patient is being admitted to [facility] for higher level of care.Given his multiple [...] suggestive of angina.He was taken to the [place] emergency room on August 05, 2023 where he wasruled in for non-ST segment elevation myocardial infarction.He was started on heparin and transferred to [facility] where he wasobserved for a couple of days and improved on medical therapy.Echocardiogram showed apical wall motion abnormalities with preserved leftventricular ejection fraction.As the patient was doing well on medical management, [facility].He was seen by his primary pleating machine operator, Dr Deyvi Celis and admitted forselective coronary angiogramon August 09, 2023 to [facility].This showed multivessel coronary artery disease,LAD 90 to 99% lesion, left circumflex proximal 90%, 95% obtuse marginal lesion;Occluded proximal RCA. Left ventricular end-diastolic pressure 12;Left ventricular ejection fraction 40%, severe anteroapical hypokinesis.He has been transferred to [facility] for consideration of CABG by Dr.Eyal Powell.When [...] IV ASDIR PRNtraMADol HCL 50 MG PO C4WXVBSRFYLAKH TARTRATE 5 MG IV Q6H PRNACETAMINOPHEN 650 [...] this note. Edits and ammendments created in [employer] are not visible in Patient Keeper or the legal medical record (HPF). [facility] #: [id number] OF REPORTPRProgress zyks1580-04-65Q16:55:00P.PB-[id number] ailable for patient swzsNHODXSYSEIXKED9449-36-13F71:08:03 [facility] 2023-08-13 17:33:00 [id number] RbUiAVMdOmYbEDC1ffPYvbC9m3vB0 pRjupj4XDPzzmJ4sfOXZWD908283025-39-56W11:33:00 [facility] ([facility]) Intensive Care Consultation REPORT #: [id number] REPORT STATUS: Signed DATE: 08/13/23 TIME: 1733 PATIENT: CHARLIE HART UNIT #: [id number] #: [id number] ROOM #: P.0311 BED: 1 : 35 AGE: 88 SEX: M ATTEND: Tony Gautam MD ADM AUTHOR: Yoav Hernandez MD ATTENTION EDITS and/or ADDENDA must be made in Patient Keeper for this note. Edits and ammendments created in [employer] are not visible in Patient Keeper or [...] reviewed with the clinical pharmacist Yoav Hernandez, [facility] -- HISTORY -- HPI:Mr. Hart [...] IV ASDIR PRNtraMADol HCL 50 MG PO H9EAXVXWWUTVLZ TARTRATE 5 MG IV Q6H PRNACETAMINOPHEN 650 [...] Edits and ammendments created in [employer] are not visible in Patient Keeper or the legal medical record (HPF). [facility] #: [id number] OF REPORTVJSfjhqtetnxrn3178-47-81M38:33:00P.PK-NO [id number] for patient qkvqDPODYDCFFFONBN9848-64-86P63:40:08 [facility] 2023-08-13 16:08:00 [id number] wBafsYQvvdBIOOxgc0JlXwEW9849A /ZoOHl5whECLgYwriIaWfjV8h9p4341-57-50P31:08:00 [facility] ([facility] Brief Operative Report REPORT #: [id number] REPORT STATUS: Signed DATE: 08/13/23 TIME: 1608 PATIENT: CHARLIE HART UNIT #: [id number] #: [id number] ROOM #: P.0311 BED: 1 : 35 AGE: 88 SEX: M ATTEND: Tony Gautam MD ADM AUTHOR: Wiley Sierra ATTENTION EDITS and/or ADDENDA must be made in Patient Keeper for this note. Edits and ammendments created in [facility] are not visible in Patient Keeper [...] POST-OPERATIVE DIAGNOSIS:same NAME OF PROCEDURE:CABG x 3; TSANLEY--LAD, SVG-->Ramus and SVG--> OM SURGEON:João Powell MD DRY CELL ASSEMBLY SUPERVISOR(S):Wiley Starr PA-C FINDINGS:CAD ESTIMATED BLOOD LOSS (ML'S):800 SPECIMEN(S) REMOVED AND/OR ALTERED:none COMPLICATION(S):none DRAIN(S):28fr left pleural jlpv62ma chest tube ADDITIONAL COMMENTS:3 units of packed red blood cells, and 2 units of Cell Saver Signed in PatientKeeper by Wiley Sierra on 08/18/23 at 16:11 at 1611ATTENTION EDITS and/or ADDENDA must be made in Patient Keeper for this note. Edits and ammendments created in [employer] are not visible in Patient Keeper or the legal medical record ([facility]). [facility] #: [id number] OF REPORTOPOperative shfoby6160-92-87H57:08:00P.RD-[id number] Available for patient dzngXRVIQJJDGPQCNT9219-23-34K13:12:13 [facility] 2023-08-13 10:26:00 [id number] n2I0mvqCbwk6j2SiKba/579TnodLW I+y7F1zc6e5v2kJBtNb6I0V8u7Z8641-14-50Y77:26:00 [facility] ([facility]) Cardiology Progress Notes REPORT #: [id number] REPORT STATUS: Signed DATE: 08/13/23 TIME: 1026 PATIENT: CHARLIE HART UNIT #: [id number] #: [id number] [facility] B[facility]: A : 35 AGE: 88 SEX: M ATTEND: Tony Gautam MD ADM AUTHOR: Trina Marquez MD 1 ATTENTION EDITS and/or ADDENDA must be made in Patient Keeper for this note. Edits and ammendments created in [employer] are not visible in Patient Keeper or the legal medical record ([facility]). -- CO-SIGNATURE -- COMMENTS:The patient was [...] PO BID PRNtraMADol HCL 50 MG PO Q5KVSCTFWTQLYJ TARTRATE 5 MG IV Q6H PRNACETAMINOPHEN 650 [...] Edits and ammendments created in [facility] are not visible in Patient Keeper or the legal medical record (HPF). RPT #: [id number] OF REPORTPRProgress gxjn4395-62-75Y15:26:00P.NB-UBAI55459617-6925YQZt ailable for patient yhstRIQNBFUIZVCKYJ7566-29-84B01:13:52 [facility] 2023-08-13 09:43:00 [id number] iUz4gORb+J6KeYNCd5SHzyfcI6HLX eYRGplB0gDeAFbFH4aGqlqSA+R45815-32-83R19:43:00 [facility] ([facility]) Progress Note REPORT #: [id number] REPORT STATUS: Signed DATE: 08/13/23 TIME: 942 PATIENT: CHARLIE HART UNIT #: [id number] #: [id number] ROOM #: P.0311 BED: 1 : 35 AGE: 88 SEX: M ATTEND: Tony Gautam MD ADM AUTHOR: Nile Fuentes MD ATTENTION EDITS and/or ADDENDA must be made in Patient Keeper for this note. Edits and ammendments created in [employer] are not visible in Patient Keeper or [...] EYE BID PRNMETOPROLOL SUCCINATE 25 MG PO I76GJTGVDANKK SODIUM 100 MG PO BIDLACTULOSE 30 ML [...] this note. Edits and ammendments created in [employer] are not visible in Patient Keeper or the legal medical record (HPF). [facility] #: [id number] OF REPORTPRProgress qksc2640-24-57W53:43:00P.KW-TCHW11985454-3062VWZn ailable for patient bjczQSDKBEBFUGZGOK0408-67-56H47:47:30 [facility] 2023-08-13 08:26:00 [id number] l7epX9Fotisbfhk2H/f3KKdXC9yno Zs3LVN1XGrT5FDQqUBYK4mvIz2B7088-60-45W18:26:00 [facility] ([facility]) Cardiothoracic Surg. Prog NoteREPORT #: [id number] REPORT STATUS: Signed DATE: 08/13/23 TIME: 825 PATIENT: CHARLIE HART UNIT #: [id number] #: [id number] ROOM #: P.0417 BED: A : 35 AGE: 88 SEX: M ATTEND: Tony Gautam MD ADM AUTHOR: Wiley Sierra ATTENTION EDITS and/or ADDENDA must be made in Patient Keeper for this note. Edits and ammendments created in [employer] are not visible in Patient Keeper or [...] White, male, 74kg, 172cm, BMI: 25 kg/mInsurance/Payor: [facility] Values: Creatinine: 1.1 mg/dL, Hematocrit: 35.7%, WBC Count: 8.3 10/L,Platelet Count: 026712 cells/LSubstance Abuse: Former smokerRisk Factors / Comorbidities: Hypertension, Family Hx of CADVascular RF: Cerebrovascular Disease: TIACardiac Status: Chronic heart failure, NYHA Class III, Ejection Fraction = 39%Coronary Artery Disease: 3 vessels diseased, Proximal LAD Stenosis 70%, Non-STElevation MA, MA: 8 to 21 DaysValve Disease: Aortic Stenosis, [...] call for help and drovehimself to the [place] ED on 08/05. He was ruled in for NSTEMI andtransferred [facility]. His chest pain improved on medicaltherapy, but echocardiogram showed apical wall motion abnormalities. Thepatient was not happy with his care and discharged home. He saw hiscardiologist, Dr. Celis in the office on 08/07 and scheduled for outpatientcardiac catheterization on 08/09. His last nuclear stress test was negative cu2124 and last catheterization was in 1991. The patient underwent coronaryangiogram by Dr. Celis on 08/09 that showed LAD (90 to 99% lesion), circumflexproximal 90%, 95% obtuse marginal lesion, RCA (proximal INSURANCE AGENTS SUPERVISOR), LVEDP 12, LVEF40%, severe anteroapical hypokinesis. [facility]ation [facility] urgent coronary artery bypass. The patient endorses the abovehistory. He denies any chest pain or shortness of breath outside of [facility] 08/[facility]. -- OBJECTIVE -- VITALS (08/12 08:27 [...] PO Q4H PRNMETOPROLOL SUCCINATE 25 MG PO W93QGBDVEAVWN SODIUM 100 MG PO BIDLACTULOSE 30 ML [...] this note. Edits and ammendments created in [employer] are not visible in Patient Keeper or the legal medical record ([facility]). RPT #: [id number] OF REPORTPRProgress zduc6994-48-30N31:26:00P.JD-[id number] ailable for patient cxlpSNTFEPHKXIBXFO4053-46-17R82:34:14 [facility] 2023-08-12 15:34:00 [id number] RywvZyhQgE226kkuOWwC4T4nk1Kjp 6fTlPxxFb1PC5H/lmYRamrlcPZM9144-59-01J48:34:00 [facility] ([facility]) Hospitalist Progress Note REPORT #: [id number] REPORT STATUS: Signed DATE: 08/12/23 TIME: 1534 PATIENT: CHARLIE HART UNIT #: [id number] #: [id number] ROOM #: P.0417 BED: A : 35 AGE: 88 SEX: M ATTEND: Tony Gautam MD ADM AUTHOR: Tony Gautam MD ATTENTION EDITS and/or ADDENDA must be made in Patient Keeper for this note. Edits and ammendments created in [employer] are not visible in Patient Keeper or the legal medical record ([facility]). -- ASSESSMENT AND PLAN -- GENERAL [...] anteroapical hypokinesis.The patient is being admitted to [facility] for higher level of care.Given his multiple [...] suggestive of angina.He was taken to the [place] emergency room on August 05, 2023 where he wasruled in for non-ST segment elevation myocardial infarction.He was started on heparin and transferred to [facility] where he wasobserved for a couple of days and improved on medical therapy.Echocardiogram showed apical wall motion abnormalities with preserved leftventricular ejection fraction.As the patient was doing well on medical management, [facility].He was seen by his primary pleating machine operator, Dr Deyvi Celis and admitted forselective coronary angiogramon August 09, 2023 to [facility].This showed multivessel coronary artery disease,LAD 90 to 99% lesion, left circumflex proximal 90%, 95% obtuse marginal lesion;Occluded proximal RCA. Left ventricular end-diastolic pressure 12;Left ventricular ejection fraction 40%, severe anteroapical hypokinesis.He has been transferred to [facility] for consideration of CABG by Dr.Eyal Powell.When [...] PO Q4H PRNMETOPROLOL SUCCINATE 25 MG PO N18WGDXCOOBCS SODIUM 100 MG PO BIDLACTULOSE 30 ML [...] this note. Edits and ammendments created in JumpChat are not visible in Patient Keeper or the legal medical record (HPF). RPT #: [id number] OF REPORTPRProgress lnhi5318-53-77P10:34:00P.GA-[id number] ailable for patient lttnXBXYBSXXXJRGKP9620-71-28C73:29:35 [facility] 2023-08-12 10:55:00 [id number] WFKgF8J1n2UKmU1wXnyBJl6vVsHSL X4RvutWknOP77zdUAKWS04JicMJ7172-98-34G37:55:00 [facility] ([facility]) Cardiothoracic Surg. Consult REPORT #: [id number] REPORT STATUS: Signed DATE: 08/12/23 TIME: 1055 PATIENT: CHARLIE HART UNIT #: [id number] #: [id number] ROOM #: P.0311 BED: 1 : 35 AGE: 88 SEX: M ATTEND: Tony Gautam MD ADM AUTHOR: Rosie Starr ATTENTION EDITS and/or ADDENDA must be made in Patient Keeper for this note. Edits and ammendments created in JumpChat are not visible in Patient Keeper or the legal medical record (HPF). -- ASSESSMENT AND PLAN -- GENERAL ASSESSMENT:Patient is an 88-year-old male with a long history of nonobstructive coronaryartery disease who presented to an outside ED with unstable angina and ruled infor NSTEMI. He was transferred to [facility] and underwent coronary angiogrampositive for severe multi-vessel disease and subsequently transferred to [facility] coronary revascularization. The patient's entire medical chart has beenreviewed. Dr. Powell has reviewed the patient's chest CT and coronary angiogramdemonstrating severe triple vessel disease with proximal LAD lesion, 90%proximal circumflex, 95% OM, and INSURANCE AGENTS SUPERVISOR on the right. He has excellent bypasstargets. [...] and mild tricuspid regurgitation. Previousechocardiogram report from [facility] with no aortic stenosis. Despite thepatient's age, [...] Procedure Type: Isolated CABGPerioperative OutcomeEstimate %Operative Mortality6.82%Morbidity Umzahxucr56.7%Stroke1.98%Renal Failure2.45%Reoperation3.87%Prolonged Ventilation7.21%Deep Sternal Wound Infection0.098%Long Hospital Stay (>14 days)12.8%Short Hospital Stay (<6 days)*16.6% Clinical SummaryPlanned Surgery:Isolated CABG, Urgent, First cardiovascular surgeryDemographics:88 year old, White, male, 74kg, 172cm, BMI: 25 kg/mInsurance/Payor:[facility] Values:Creatinine: 1.1 mg/dL, Hematocrit: 35.7%, WBC Count: 8.3 10/L,Platelet Count: 797198 cells/LSubstance Abuse:Former smokerRisk Factors / Comorbidities:Hypertension, Family Hx of CADVascular RF:Cerebrovascular Disease: TIACardiac Status:Chronic heart failure, NYHA Class III, Ejection Fraction = 39%Coronary Artery Disease:3 vessels diseased, Proximal LAD Stenosis 70%, Non-STElevation MA, MA: 8 to 21 DaysValve Disease:Aortic Stenosis, Mild MR, Mild TRArrhythmia:Remote 2 Degree BlockPrev. Cardiac Interv:Previous other: Permanent Pacemaker - Yes, STS risk calculator score was calculated and discussed withpatient/family prior to surgery as documented in the medical record -- HISTORY -- CONSULT REQUESTED BY:Deyvi Celis MD Cardiology REASON FOR CONSULT:Severe multi-vessel coronary artery disease. CHIEF COMPLAINT:The patient was transferred from [facility] for CABG evaluation. HPI:Mr. Hart is [...] call for help and drovehimself to the [place] ED on 08/05. He was ruled in for NSTEMI andtransferred to [facility] for observation. His chest pain improved on medicaltherapy, but echocardiogram showed apical wall motion abnormalities. Thepatient was not happy with his care and discharged home. He saw hiscardiologist, Dr. Celis in the office on 08/07 and scheduled for outpatientcardiac catheterization on 08/09. His last nuclear stress test was negative [id number] and last catheterization was in 1991. The patient underwent coronaryangiogram by Dr. Celis on 08/09 that showed LAD (90 to 99% lesion), circumflexproximal 90%, 95% obtuse marginal lesion, RCA (proximal INSURANCE AGENTS SUPERVISOR), LVEDP 12, LVEF 40%, severe anteroapical hypokinesis. The patient [facility] forconsideration of urgent coronary artery bypass. The patient endorses the abovehistory. He denies any chest pain or shortness of breath outside of [facility] 08[facility]. PAST MEDICAL HISTORY:HypertensionHyperlipidemiaCoronary artery disease (status [...] PO DAILYFosamax tablet (alendronate) 70 MG PO H3UJyryatbuqr Mononitrate Tab.ER (Imdur Tab) 30 MG PO [...] PO Q4H PRNMETOPROLOL SUCCINATE 25 MG PO D85XJNBCRUQMP SODIUM 100 MG PO BIDLACTULOSE 30 ML [...] this note. Edits and ammendments created in JumpChat are not visible in Patient Keeper or the legal medical record (HPF). RPT #: [id number] OF REPORTSSYvkeumqaowdx5329-22-62L86:55:00P.PK-NO [id number] for patient ccqoBUXRLTCYXKKQNL4993-50-68I71:55:07 [facility] 2023-08-12 08:46:00 [id number] ssXVmbzkZSmbZliAV6eoIwk7kAdDV 0ZoCXC+smcy4ZNqWGVGjMDHN+dn1192-39-00W70:46:00 [facility] ([facility]) Cardiology Progress Notes REPORT #: [id number] REPORT STATUS: Signed DATE: 08/12/23 TIME: 0846 PATIENT: CHARLIE HART UNIT #: [id number] #: [id number] ROOM #: P.0418 BED: A : 35 AGE: 88 SEX: M ATTEND: Tony Gautam MD ADM AUTHOR: Annette Chow ATTENTION EDITS and/or ADDENDA must be made in Patient Keeper for this note. Edits and ammendments created in [employer] are not visible in Patient Keeper or [...] pain, suggestive of angina, and presented at [place] emergency room on 08/05/22 for further evaluation and management. He wasruled in NSTEMI, started on heparin drip and transferred to [facility]. He wasobserved and pain resolved on medical therapy (per records). He was discharged.He was seen by cardiology services (Dr. Celis) as outpatient and underwentelective coronary angiogram on 08/09/22 at [facility] and showed multi-vesselcoronary artery disease, LAD (90 to 99% lesion),LCx proximal 90%, 95% obtusemarginal lesion, RCA (occluded proximal), LVEDP 12, LVEF 40%, severeanteroapical hypokinesis. He was transferred [facility] to [facility] for considerationof CABG by Dr. João Powell. - Echo (08/10/23) - EF 35-39%, grade I diastolic dysfunction, moderate to severeAS, mild MR/TR- SCA to be reviewed by Dr. Powell and Dr. Deng to assess candidacy for CABGvs. PCI. The patient states does not want to have CABG and would prefer tohave PCI if recommended by his pleating machine operator (Dr. Celis). NPO after midnightif consensus is [...] undergo surgery and would prefer PCIif his pleating machine operator (Dr. Celis) recommends it. No acute events [...] PO Q4H PRNMETOPROLOL SUCCINATE 25 MG PO F37ZALSBDBCYK SODIUM 100 MG PO BIDLACTULOSE 30 ML [...] Edits and ammendments created in [employer] [facility]ationBL[facility] are not visible in Patient Keeper or the legal medical record (HPF). [facility] #: [id number] OF REPORTPRProgress kloa2129-35-37F28:46:00P.IM-[id number] ailable for patient fcroVRJQKSUBRWLVHE9603-67-82G09:13:51 [facility] 2023-08-11 13:53:00 [id number] Ie80J4QVJXRGXdVGdE5Li0iVCf5UZ jMXxriWBh/ry411djnRiG514+Lw6157-72-58D83:53:00 [facility] ([facility]) Hospitalist Progress Note REPORT #: [id number] REPORT STATUS: Signed DATE: 08/11/23 TIME: 1353 PATIENT: CHARLIE HART UNIT #: [id number] #: [id number] ROOM #: [facility] BED: A : 35 AGE: 88 SEX: M ATTEND: Tony Gautam MD ADM AUTHOR: Tony Gautam MD ATTENTION EDITS and/or ADDENDA must be made in Patient Keeper for this note. Edits and ammendments created in JumpChat are not visible in Patient Keeper or [...] anteroapical hypokinesis.The patient is being admitted to [facility] for higher level of care.Given his multiple [...] suggestive of angina.He was taken to the [place] emergency room on August 05, 2023 where he wasruled in for non-ST segment elevation myocardial infarction.He was started on heparin and transferred to [facility] where he wasobserved for a couple of days and improved on medical therapy.Echocardiogram showed apical wall motion abnormalities with preserved leftventricular ejection fraction.As the patient was doing well on medical management, [facility].He was seen by his primary pleating machine operator, Dr Deyvi Celis and admitted forselective coronary angiogramon August 09, 2023 to [facility].This showed multivessel coronary artery disease,LAD 90 to 99% lesion, left circumflex proximal 90%, 95% obtuse marginal lesion;Occluded proximal RCA. Left ventricular end-diastolic pressure 12;Left ventricular ejection fraction 40%, severe anteroapical hypokinesis.He has been transferred to [facility] for consideration of CABG by Dr.Eyal Powell.When [...] source: Monitor I/Os (08/10 07:00 - 08/11 07:00):[employer] 700Intake 700 -EXAM- GENERAL: Well developed, well [...] PO Q4H PRNMETOPROLOL SUCCINATE 25 MG PO Z93CBGCEFQNEB SODIUM 100 MG PO BIDLACTULOSE 30 ML [...] this note. Edits and ammendments created in [employer] are not visible in Patient Keeper or the legal medical record (HPF). [facility] #: [id number] OF REPORTPRProgress zknc7169-81-27B33:53:00P.LG-[id number] ailable for patient ielxWPPQSRBLVTQWEP1564-97-83V55:26:21 [facility] 2023-08-11 08:30:00 [id number] YJShQ5En0LJi9SbbYx+xxnRXHx8nF +wcaYIOCrH+OW2T9QSdPSGt8+8k6241-03-34G54:30:00 [facility] ([facility]) Cardiology Progress Notes REPORT #: [id number] REPORT STATUS: Signed DATE: 08/11/23 TIME: 829 PATIENT: CHARLIE HART UNIT #: [id number] #: [id number] ROOM #: P.0418 BED: A : 35 AGE: 88 SEX: M ATTEND: Tony Gautam MD ADM AUTHOR: Annette Chow ATTENTION EDITS and/or ADDENDA must be made in Patient Keeper for this note. Edits and ammendments created in [employer] are not visible in Patient Keeper or [...] pain, suggestive of angina, and presented at [facility] emergency room on 08/05/22 for further evaluation and management. He wasruled in NSTEMI, started on heparin drip and transferred to [facility]. He wasobserved and pain resolved on medical therapy (per records). He was discharged.He was seen by cardiology services (Dr. Celis) as outpatient and underwentelective coronary angiogram on 08/09/22 at [facility] and showed multi-vesselcoronary artery disease, LAD (90 to 99% lesion),LCx proximal 90%, 95% obtusemarginal lesion, RCA (occluded proximal), LVEDP 12, LVEF 40%, severeanteroapical hypokinesis. He was transferred here to [facility] for considerationof CABG by Dr. [...] source: Monitor I/Os (08/10 07:00 - 08/11 07:00):[employer] 700Intake 700 -EXAM- OTHER: Constitutional: Well developed, [...] PO Q4H PRNMETOPROLOL SUCCINATE 25 MG PO K71LAZBGEGNIR SODIUM 100 MG PO BIDLACTULOSE 30 ML [...] this note. Edits and ammendments created in [employer] are not visible in Patient Keeper or the legal medical record (HPF). [facility] #: [id number] OF REPORTPRProgress geln6803-63-72M59:30:00P.AU-[id number] ailable for patient lylrRNOQXWYGQJPZQJ5190-02-93O59:13:48 [facility] 2023-08-11 07:46:00 [id number] TbzciJYz6ivTko0d0iLmJo9IKcATM 1bA9v3PFWBNaEJeDLjZ34gUDQJK9639-81-00Z08:46:79853 5-[address] [address]DOHGSOI NAME: CHARLIE HART ADMIT DATE: 08/09/23ACCOUNT NO: [id number] ROOM NO: P.0427 AGE: 88 REPORT TYPE: eECHOCARDIOGRAM REPORT SEX: M ADMITTING PHYSICIAN: Tony Gautam MD ATTENDING PHYSICIAN: Tony Gautam MD *[facility]*[address] [place] [address]Swgpl Transthoracic Echocardiogram Patient: Charlie HartStudy Date: 08/10/2023P:URN: [id number]: [id number]#: [id number]: 1935ge: 88Gender: MHeight: 68 in / 172.7 cmWeight: 167 lb / 75.8 kgBMI/BSA: 25.4 kg/m 2 / 1.92 m 2*Ordering Physician: * Nj Oliva Cf1 *Interpreting Physician: * Cyril Umana MD*Restaurant Host: * Mindy Chaudhry Indications: Chest Pain, unspecified. [...] 2.5 - 4.0 FS 28 % 25 43 PW, ED 0.9 cm 0.6 - [...] at 0746 PATIENT NAME: CHARLIE HART :46:0 0P.[id number] for patient cmlyNVVDFUPPRXLEMM7267-86-81W02:46:47 [facility] 2023-08-10 13:18:00 [id number] RWc9Vdq67/dkTIZG8F+QmgQQbbQhZ WDvSaKSjqq4Z+FlKFZyyqahAVNI5810-95-34O33:18:00 [facility] ([facility]) Hospitalist Progress Note REPORT #: [id number] REPORT STATUS: Signed DATE: 08/10/23 TIME: 1318 PATIENT: CHARLIE HART UNIT #: [id number] #: [id number] ROOM #: [facility] BED: A : 35 AGE: 88 SEX: M ATTEND: Tony Gautam MD ADM AUTHOR: Tony Gautam MD ATTENTION EDITS and/or ADDENDA must be made in Patient Keeper for this note. Edits and ammendments created in [employer] are not visible in Patient Keeper or [...] anteroapical hypokinesis.The patient is being admitted to [facility] for higher level of care.Given his multiple [...] suggestive of angina.He was taken to the [place] emergency room on August 05, 2023 where he wasruled in for non-ST segment elevation myocardial infarction.He was started on heparin and transferred to [facility] where he wasobserved for a couple of days and improved on medical therapy.Echocardiogram showed apical wall motion abnormalities with preserved leftventricular ejection fraction.As the patient was doing well on medical management, [facility].He was seen by his primary pleating machine operator, Dr Deyvi Celis and admitted forselective coronary angiogramon August 09, 2023 to [facility].This showed multivessel coronary artery disease,LAD 90 to 99% lesion, left circumflex proximal 90%, 95% obtuse marginal lesion;Occluded proximal RCA. Left ventricular end-diastolic pressure 12;Left ventricular ejection fraction 40%, severe anteroapical hypokinesis.He has been transferred to [facility] for consideration of CABG by Dr.Eyal Powell.When [...] PO Q4H PRNMETOPROLOL SUCCINATE 25 MG PO P20MEOZRQCWKX SODIUM 100 MG PO BIDLACTULOSE 30 ML [...] this note. Edits and ammendments created in [employer] are not visible in Patient Keeper or the legal medical record (HPF). RPT #: [id number] OF REPORTPRProgress sleg2354-17-66O83:18:00P.YZ-ULPC02225763-1879ZGCk ailable for patient ieqhSIPHNIZRVBSCAL4073-88-87I46:24:03 [facility] 2023-08-10 08:50:00 [id number] lzH1avlHYjyovKiMyyzpuMMZPH4NS rLHczGYeLTF+dAAzhl6NGJd89wR2359-99-18U15:50:00 [facility] ([facility]) Cardiology Consultation REPORT #: [id number] REPORT STATUS: Signed DATE: 08/10/23 TIME: 0850 PATIENT: CHARLIE HART UNIT #: [id number] #: [id number] ROOM #: P.0427 BED: A : 35 AGE: 88 SEX: M ATTEND: Tony Gautam MD ADM AUTHOR: Nj Oliva DO CF1 ATTENTION EDITS and/or ADDENDA must be made in Patient Keeper for this note. Edits and ammendments created in [employer] are not visible in Patient Keeper or the legal medical record (HPF). -- CO-SIGNATURE -- COMMENTS:Seen and examined with i&c technician Dr. Oliva. PE:NAD, alert and awakeRRR, no m/g/rCTAB 88-year-old male with a past medical history of hypertension, cardiomyopathy,hyperlipidemia, prostate cancer, pacemaker placement who was transferred forCABG evaluation. He was recently admitted to [facility] for an NSTEMI. Hefollowed up with his pleating machine operator Dr. Celis who performed a left heartcatheterization on him on August 09 at [facility]. This showed severemultivessel coronary artery disease and he was transferred for possible CABG.plan to repeat echocardiogram here. I reviewed heart catheterization, patienthas INSURANCE AGENTS SUPERVISOR of the proximal RCA with collaterals from the left system. He also hasa INSURANCE AGENTS SUPERVISOR of the proximal LAD with very well-formed [...] suggestive ofangina. He was taken to the [place] emergency room on August 05, 2023where he was ruled in for non-ST segment elevation myocardial infarction. Hewas started on heparin and transferred to [facility] where he wasobserved for a couple of days and improved on medical therapy. Echocardiogramshowed apical wall motion abnormalities with preserved left ventricularejection fraction. As the patient was doing well on medical management, he wasdischarged from the other hospital without intervention. He was seen by hisprimary pleating machine operator, Dr Deyvi Celis and admitted for selective coronaryangiogram on August 09, 2023 to [facility]. This showed multivessel coronaryartery disease, LAD 90 to 99% lesion, left circumflex proximal 90%, 95% obtusemarginal lesion; Occluded proximal RCA. Left ventricular end-diastolic xevetafi13; Left ventricular ejection fraction 40%, severe anteroapical hypokinesis. Zehas been transferred to [facility] for consideration of CABG by Dr.Eyal Powell. When seen in the room the patient is awake alert and oriented andverbalizes the above. He denies any chest pain or shortness of breath at thistime. Denies any headache or dizziness. No nausea vomiting. 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 to 50%, HLD, BPH, vitamin B12 deficiency,PPM November 2021 PAST SURGICAL HISTORY:[facility] 08/09/2023, PPM November 2021 -- ALLERGIES/HOME MEDS -- ALLERGIES:No Known Allergies (UNKNOWN - Allergy) HOME MEDICATIONS:aspirin chewable tablet 81 MG PO DAILYAtorvastatin Tab (Lipitor Tab) 10 MG PO DAILYClopidogrel Tab (Plavix Tab) 75 MG PO DAILYFosamax tablet (alendronate) 70 MG PO A2YSssaavasql Mononitrate Tab.ER (Imdur Tab) 30 MG PO [...] PO Q4H PRNMETOPROLOL SUCCINATE 25 MG PO H86IKLSNVYFNU SODIUM 100 MG PO BIDLACTULOSE 30 ML [...] this note. Edits and ammendments created in [employer] are not visible in Patient Keeper or the legal medical record ([facility]). RPT #: [id number] OF REPORTNPXliecknftyob2174-96-45X86:50:00P.PK-NO [id number] for patient iuukVASPGSEQEZIGMQ0696-03-22C21:44:54 [facility] 2023-08-09 16:44:00 [id number] t+oBCaTc8FLlyh8HaIGoeoovnt4I5 Do9B+IQ/BTQ2uW9ROD8MjM7ROyT7072-76-97B29:44:00 [facility] ([facility]) Hospitalist Stephen Ferguson REPORT #: [id number] REPORT STATUS: Signed DATE: 08/09/23 TIME: 1644 PATIENT: CHARLIE HART UNIT #: [id number] #: [id number] ROOM #: P.0417 BED: A : 35 AGE: 88 SEX: M ATTEND: Tony Gautam MD ADM AUTHOR: Tony Gautam MD ATTENTION EDITS and/or ADDENDA must be made in Patient Keeper for this note. Edits and ammendments created in [employer] are not visible in Patient Keeper or the legal medical record (HPF). -- HISTORY -- ADMISSION DATE:2023-08-09 CHIEF COMPLAINT:1. Angina pectoris.2. Severe multivessel coronary artery disease, not amenable to percutaneouscoronary intervention. The patient is being admitted to [facility] forconsideration of CABG HPI: This 88-year-old gentleman has a past medical history significant forhypertension, pulmonary hypertension,Nonobstructive coronary artery disease, ischemic cardiomyopathy, with aprevious ejection fraction of 40 to 50%,hyperlipidemia, benign prostatic hyperplasia, vitamin B12 deficiency, Permanentpacemaker placement in November 2021.The patient was in his usual state of health until recently when he developedrecurrent chest pain, suggestive of angina.He was taken to the [place] emergency room on August 05, 2023 where he wasruled in for non-ST segment elevation myocardial infarction.He was started on heparin and transferred to [facility] where he wasobserved for a couple of days and improved on medical therapy.Echocardiogram showed apical wall motion abnormalities with preserved leftventricular ejection fraction.As the patient was doing well on medical management, [facility].He was seen by his primary pleating machine operator, Dr Deyvi Celis and admitted forselective coronary angiogramon August 09, 2023 to [facility].This showed multivessel coronary artery disease,LAD 90 to 99% lesion, left circumflex proximal 90%, 95% obtuse marginal lesion;Occluded proximal RCA. Left ventricular end-diastolic pressure 12;Left ventricular ejection fraction 40%, severe anteroapical hypokinesis.He has been transferred to [facility] for consideration of CABG by Dr.Eyal Powell.When [...] weekAtorvastatin 10 mgIsosorbide mononitrate 30 mgTramadol 150 pqT59Rwujkjge -- SUBJECTIVE -- -REVIEW OF SYSTEMS- GENERAL: [...] anteroapical hypokinesis.The patient is being admitted to [facility] for higher level of care,consideration of surgical [...] this note. Edits and ammendments created in [employer] are not visible in Patient Keeper or the legal medical record (HPF). [facility] #: [id number] OF REPORTHPHistory and physical rolhmtzatyz2854-98-50W11:44:00P.DS-KUJU09784708-3 200AVAvailable for patient frxsKKOCTPBUNSLBYL3608-22-41R73:53:20 [facility] 2023-08-09 13:23:00 [id number] Zojb6eC8W5ynH7P9WPNyINx8qlg3b 9/ZvBd1fE4hzbp4MeMwDKEeQBz38682-83-74Z99:23:75263 4-0001 [facility] [address] [place] [address] PATIENT NAME: CHARLIE HART ADMIT DATE: 08/09/23ACCOUNT NO: [id number] ROOM NO: AGE: 88 REPORT TYPE: DISCHARGE SUMMARY SEX: M ADMITTING PHYSICIAN: ATTENDING PHYSICIAN: Deyvi Celis MD Cardiology ADMISSION DATE: 08/09/2023 07:15:00DISCHARGE DATE: REASON FOR DISCHARGE: The patient is being transferred to the [facility] for bypass later on this week. HOSPITAL [...] the family and the surgeon in the [facility], it was decided best to transfer the patient while stable to the [facility] for bypass later on this week. The patient will be needing to be taken off Plavix and put on Lovenox for the next few days and then adjust his medications and then proceed with bypass, so the patient is being transferred electively to a [facility] bed for the planned bypass. This was alldiscussed in detail with the accepting physicians and the patient and his family. Dictated By: Deyvi Celis MD Date Dictated: 08/09/2023 13:23:31Date Transcribed: 08/10/2023 02:22:15SBRIANA/Renetta #: [id number] ID: [id number] by Deyvi Celis MD On 08/10/2023 06:36:20 AM at 0636 PATIENT NAME: CHARLIE HART rhwraxr1314-99-16G32:22:00L.[id number] ilable for patient vkslPEQEILRZZWDBXD9992-13-56V67:37:00 [facility] 2023-08-09 10:27:00 [id number] iRKNpr1l+P90z5+MkD0GwOI8KFios SV9i19wj4DTh75gVYQGZ2V39bYJ0960-94-75R95:27:42570 3-[address] [address] PATIENT NAME: CHARLIE HART ADMIT DATE: 08/09/23ACCOUNT NO: [id number] ROOM NO: AGE: 88 REPORT TYPE: OPERATIVE REPORT SEX: M ADMITTING PHYSICIAN: ATTENDING PHYSICIAN: Deyvi Celis MD Cardiology OPERATION DATE: 08/09/2023 FREELANCE RECRUITER: Deyvi Celis MD DRY CELL ASSEMBLY SUPERVISOR: PREOPERATIVE DIAGNOSIS: POSTOPERATIVE DIAGNOSIS: TITLE OF PROCEDURE: [...] femoral artery area for local anesthesia. A 6-Spanish sheath was placed in the right common [...] Dictated: 08/09/2023 10:27:56Date Transcribed: 08/09/2023 13:25:37SFD/Brant #: [id number] ID: [id number] by Deyvi Celis MD On 08/09/2023 01:36:14 PM at 0136 PATIENT NAME: CHARLIE HART gfrgpj1100-82-20V47:25:00L.ZEQ68641243-3547YDGbdw lable for patient dpnkNVNDNMYKHSVVGG3308-93-49U07:36:44 [facility] 2023-08-09 07:47:00 RJ61146003605mbPQQ/M 9sdh59FDqca9cZCZoRTAOWQgYeLkJ 7C8OxwDXG6zEWaB+WerBiKF2Vfy8137-04-20S67:47:35871 3-0006 [place] [address] PATIENT NAME: CHARLIE HART ADMIT DATE: 08/09/23ACCOUNT NO: [id number] ROOM NO: AGE: 88 REPORT TYPE: eELECTROCARDIOGRAM SEX: M ADMITTING PHYSICIAN: ATTENDING PHYSICIAN: Deyvi Celis MD Order:[id number] Reason : PREOP Test Date/Time Stamp:Sat Aug 09 2023 07:47:55Blood Pressure : / mmHGVent. [...] CELIS at 0951 PATIENT NAME: CHARLIE HART .[id number] AVAvailable for patient suagWJMJFBAHIMIYXT3565-93-72W92:51:55 [facility] 2023-08-08 07:19:00 [id number] Kr6tK4txw+i3tsFe9C1fjJRPcJHH+ M9pOmco3wgAWGxkSZr88F+aeKGE2536-34-02R25:19:37116 2-0009 [place] [address] PATIENT NAME: CHARLIE HART ADMIT DATE: ACCOUNT NO: [id number] ROOM NO: AGE: 88 REPORT TYPE: PREOP HP REPORT SEX: M ADMITTING PHYSICIAN: ATTENDING PHYSICIAN: Deyvi Celis MD Cardiology PATIENT NAME: CHARLIE HART ADMIT DATE:08/09/2023DMISSION DATE: 08/09/2023 12:30:00 FREELANCE RECRUITER: Deyvi Celis MD REASON FOR ADMISSION: Unstable [...] pain got worse, so he went to [facility] on 08/05/2023 where he was ruled in for a non-ST wave myocardialinfarction. By that time, his chest pain was getting better. [facility], [...] pulmonaryhypertension, osteoarthritis, benign prostatic hyperplasia, and vitamin C69ilenuochio. PAST SURGICAL HISTORY: He has had knee replacement, hernia, cholecystectomy,hip and shoulder replacement, prostate cancer, skin cancer, the above-mentionedpacemaker. ALLERGIES: NO KNOWN DRUG ALLERGIES. MEDICATIONS: Aspirin 81 mg daily, Plavix 75 mg daily, metoprolol 25 mg daily, PATIENT NAME: CHARLIE HART alendronate 70 mg, atorvastatin 10 mg daily, isosorbide 30 mg daily, mg daily, B12, and eyedrops. SOCIAL HISTORY: [...] Pending. Laboratory data and cardiac evaluation from [facility] was reviewed. Noninvasive workup from my [...] Dictated: 08/08/2023 07:19:23Date Transcribed: 08/08/2023 08:55:16SFD/LINDA/ALEXAUJob #: [id number] ID: [id number] and Edited by Deyvi Celis MD On 08/08/23 5:22:53 PM PATIENT NAME: CHARLIE HART at 0523 PATIENT NAME: CHARLIE HART and physical vofyypilvsl6948-63-28E77:55:00L.COB79001834-6811V VAvailable for patient tuvzOVMXQKZCOVRYQV2568-20-53K56:25:56 [facility] 2023-08-07 09:15:00 [id number]+qghJTGU JwnOhSgV+OhMYQgo+6EgazwfVYeZl sZAqyq3WfkBOTHhbxp1s9I3CAKt2157-87-57G56:15:00 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 Initial troponin at this [...] home, pending cardiac clearanceNOK: Elizabeth Hart (daughter): [phone] Med Rec Med RecDischarge meds:Stop taking the [...] no edemaMusculoskeletal: normal inspection, painless range of motionNeuro/PYTHON WEB DEVELOPER: alert, oriented X 3, CNII-XII intactPsychiatry: normal affect, normal judgment/insight, normal mood, not homicidal, not suicidal Discharge Instructions PCPPCP follow-up:PCP: DOES_NOT KNOW Discharge to: Home/Self CareAdditional Discharge Routines: PCP Follow-Up, Slitting And Shipping Supervisor Follow-UpDiet: Resume Home Diet/FeedsActivity: As Tolerated Follow-up [...] (minutes): 32 at 1551 at 1646 RPT #:[id number] OF REPORTDSDischarge bqqzsjn5060-66-73M48:15:00Z.LIAL38236150-1446WKNc ailable for patient vffnVPKQSDGWCSAWUC7101-59-62M15:51:34 [facility] 2023-08-07 07:21:00 [id number] /7tk3Iad+l69jg4hBvMOQzmvg3CwO opWuJo71QeaZbR015c8cHTy+GwS9277-74-08T72:21:00 [facility] ([facility]Cardiology Progress NoteREPORT#:[id number] REPORT STATUS: SignedREPORT INITIALIZATION DATE:08/07/23 TIME: 720 PATIENT: CHARLIE HART UNIT #: [id number]#: [id number] [facility] AGE: 88 SEX: M ATTEND: Alvaro [...] 91/55 68 86 08/06 0917 99 08/06 09 78 20 110/70 86 08/06 0830 93 [...] LE assessment: no edemaMusculoskeletal: full range of motionNeuro/PYTHON WEB DEVELOPER: alert, oriented X 3, CN II-XII intactSkin: [...] with Dr. Celis today. at 0741 RPT #:[id number] OF REPORTPRProgress enos4184-67-63U79:21:00Z.JRXI10280211-8899JOLchmo able for patient dlegVVVKBQRDUKQXTE6897-19-58K77:41:57 [facility] 2023-08-07 05:15:00 T62978071856wUD0Gp7A bryUmis5YYCte+fieXfXvrbGSWetL g8HxFmmEbfsWZUW7MkuSV7/qflY1699-52-50C34:15:18678 2-0012 [place] [address] PATIENT NAME: CHARLIE HART ADMIT DATE: 08/05/23ACCOUNT NO: [id number] ROOM NO: [facility] AGE: 88 REPORT TYPE: ELECTROCARDIOGRAM SEX: M ADMITTING PHYSICIAN:Alvaro Ron MD ATTENDING PHYSICIAN:Alvaro Ron MD Order:[id number] Reason : CAD Test Date/Time Stamp:FriAug 07 [...] CELIS at 1726 PATIENT NAME: CHARLIE HART .[id number] AVAvailable for patient vmzcCQWSABGPLVTBCH5161-84-07R53:27:12 [facility] 2023-08-06 17:28:00 O117060670062sTydWEj ZB8VM0sNOscZAHNOUCJRcqq/WpOZI uckL2hWG7mCBfT0j5PQS5ePokSF7250-30-44M90:28:60159 0-0013 [place] [address] PATIENT NAME: CHARLIE HART ADMIT DATE: 08/05/23ACCOUNT NO: [id number] ROOM NO: [facility] AGE: 88 REPORT TYPE: ECHOCARDIOGRAM SEX: M ADMITTING PHYSICIAN:Alvaro Ron MD ATTENDING PHYSICIAN:Alvaro Ron MD *[facility]*[address] [place], [place] [address]Phone Transthoracic Echocardiogram Patient: Charlie HartStudy Date: 4BP:URN: [id number]: [id number]#: [id number]: 1935ge: 88Gender: MHeight: 68 in / 172.7 cmWeight: 165 lb / 74.8 kgBMI/BSA: 25.1 kg/m 2 / 1.9 m 2*Ordering Physician: * Kyree Noble MD *Interpreting Physician: * Deyvi Celis MD*Restaurant Host: * Jose D Salvador Indications: CAD. Study data: Transthoracic echocardiogram. Procedure: A transthoracicechocardiogram was performed. Images were obtained using a OnAir3G cardiacultrasound machine. Image quality was adequate. M-mode, complete 2D, completespectral Doppler, and color Doppler. Location: [facility]. Patient status:Inpatient. Patient room number: [...] 2 mm Hg --------- 3 PATIENT NAME: HARTCHARLIE MORALES Left atrium Value Ref 12/14/2021 AP dim, [...] at 1728 PATIENT NAME: CHARLIE HART :28:0 0Z.[id number] for patient ordzIAASKZKAHEQCYK9095-60-21K11:28:30 [facility] 2023-08-06 10:46:00 [id number]+uNomKCl yIdusHwE+IuJr/peFrxSLDw481vwL 1VrmQXsF2/5lDWTkuanzehgkFNW3163-50-49W68:46:00 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 Per the ED physician, [...] 68 22 107/60 95 08/06 0508 36.4 01/10 0500 80 16 94/58 95 08/06 0430 [...] 91/62 98 08/05 1941 36.8 82 14 98/ 74.1 96 24 hour I O ending [...] no edemaMusculoskeletal: normal inspection, painless range of motionNeuro/PYTHON WEB DEVELOPER: alert, oriented X 3, CNII-XII intactPsychiatry: normal [...] % (Auto) (14 - 44 %) 20.2 Emmet % (Auto) (4 - 13 %) 10.5 Eos % (Auto) (0 - 6 %) 2.7 Baso % (Auto) (0 - 2 %) 0.5 Neut # (Auto) (2.0 - 7.6 K/mm3) 4.87 Lymph # (Auto) (1.0 - 3.8 K/mm3) 1.50 Emmet # (Auto) (0.1 - 0.8 K/mm3) 0.78 [...] home, pending cardiac clearanceNOK: Elizabeth Hart (daughter): [phone] Quality: Gen [facility] Crit Care VTE ProphylaxisVTE prophylaxis initiated: yes [...] and plan. at 1538 at 1939 RPT #:[id number] OF REPORTPRProgress vmea2056-39-05M70:46:00Z.BZOX51133153-0270TEMtpum able for patient prwbMUUJCBEJCQIPEK2822-79-79W34:39:35 [facility] 2023-08-06 09:06:00 O02429122064SZRUEf9O KUrveOC4rydm5j1+65uAGN8ZTU/UC oYz7W2sL98N0hpCszVcN6/wODKh7848-73-13P56:06:66283 0-[address] [address] PATIENT NAME: CHARLIE HART ADMIT DATE: 08/05/23ACCOUNT NO: [id number] ROOM NO: Z.363 AGE: 88 REPORT TYPE: ELECTROCARDIOGRAM SEX: M ADMITTING PHYSICIAN:Alvaro Ron MD ATTENDING PHYSICIAN:Alvaro Ron MD Order:[id number] Reason : CAD Test Date/Time Stamp:FriAug 06 [...] CELIS at 1533 PATIENT NAME: CHARLIE HART .[id number] AVAvailable for patient ughiPOPBIINTDIIUCX6786-04-14N95:33:54 [facility] 2023-08-06 06:07:00 [id number] vUnyDCOK8ATCVipf2PEPRRczK/sgJ Uue0wLu13tNJH33eVMmL9oimwOZ7619-02-07L46:07:00 [facility] ([facility])Cardiology Progress NoteREPORT#:[id number] REPORT STATUS: SignedREPORT INITIALIZATION DATE:08/06/23 TIME: 0607 PATIENT: CHARLIE HART UNIT #: [id number]#: [id number] [facility] AGE: 88 SEX: M ATTEND: Alvaro [...] LE assessment: no edemaMusculoskeletal: full range of motionNeuro/PYTHON WEB DEVELOPER: alert, oriented X 3, CN II-XII intactSkin: [...] (Auto) (14 - 44 %) 20.2 28.7 Emmet % (Auto) (4 - 13 %) 10.5 11.1 Eos % (Auto) (0 - 6 %) 2.7 4.6 Baso % (Auto) (0 - 2 %) 0.5 1.0 Neut # (Auto) (2.0 - 7.6 K/mm3) 4.87 3.67 Lymph # (Auto) (1.0 - 3.8 K/mm3) 1.50 1.94 Emmet # (Auto) (0.1 - 0.8 K/mm3) 0.78 [...] bibasilar atelectasis.Impression By: GaneshPR7 - Carito Sosa [facility] SCAN - CT HEAD/BRAIN W/O CONT 08/05 1850 Report Impression - Status: SIGNED Entered: 08/05/20232002 [...] current medical rx Review echo. at 0741 [facility] #:[id number] OF REPORTPRProgress idze4371-69-14G03:07:00Z.AJAG15104296-1239WWBdotg able for patient znlwFUGRDULZFFJPGY9217-70-00B87:41:56 [facility] 2023-08-05 14:36:00 [id number] hJaU2JQ4SCOaLw8vodnSu/7EwEoro iWYcaaVw/vyV6jSJbgYZNpfEarh8310-29-43G17:36:88138 9-0143 [place] [address] PATIENT NAME: CHARLIE HART ADMIT DATE: 08/05/23ACCOUNT NO: [id number] ROOM NO: [facility] AGE: 88 REPORT TYPE: CONSULTATION REPORT SEX: [...] call EMS and drove himself to the [facility] Emergency Room. Currently, he is chest [...] MD Date Dictated: 08/05/2023 14:36:53Date Transcribed: 08/05/2023 19:37:25Phyllis/NARJob #: [id number] ID: [id number] and Edited by Kyree Noble MD On 08/08/23 10:09:18 AM at 1014 PATIENT NAME: CHARLIE HART :37:00Z.[place] [id number] for patient cgpoBNFTSKPTPDFOXB0693-34-13R58:16:29 [facility] 2023-08-05 08:23:00 [id number] irlv21S8I2Y8+Ing9xU99iCGg0Z4/ FPcIVw9L/hfPqC4ESroD17HYoAb5069-75-01Y33:23:00 [facility] ([facility] Centerist History PhysicalREPORT#:[id number] REPORT STATUS: SignedREPORT INITIALIZATION DATE:08/05/23 TIME: 822 PATIENT: CHARLIE HART UNIT #: [id number]#: [id number] [address] AGE: 88 SEX: M ATTEND: Alvaro Ron [facility] AUTHOR: Clinton Moreau MD R1REPT SERVICE DT/TIME: 08/05/23822* ALL edits or amendments must be made on the electronic/computer document * See AddendumClinton Moreau 08/05/23822:History of Present Illness HPIChief complaint:Chest pain, NSTEMIPCP:PCP: DOES_NOT KNOW HPI:88M with PMHx of 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 Per the ED physician, pt received full dose ASA and heparin at OSH but lab values, EKG and other data are not visible on this EMR. No other history from able to be obtained from events at OSH. On chart review, pt was seen in 11/2021 for symptomatic bradycardia and rec'd pacemaker due to 2nd degree AV block. Wash Helper at the time was Dr. Celis. Examined [...] 121/74 08/05 723 B/P Mean 89 08/05 07 O2 Delivery Room air 08/05 723 Pulse 65 08/05 07 Resp 18 08/05 723 Temp 98.8 08/05 [...] no edemaMusculoskeletal: normal inspection, painless range of motionNeuro/PYTHON WEB DEVELOPER: alert, oriented X 3, CNII-XII intactPsychiatry: normal [...] % (Auto) (14 - 44 %) 28.7 Emmet % (Auto) (4 - 13 %) 11.1 Eos % (Auto) (0 - 6 %) 4.6 Baso % (Auto) (0 - 2 %) 1.0 Neut # (Auto) (2.0 - 7.6 K/mm3) 3.67 Lymph # (Auto) (1.0 - 3.8 K/mm3) 1.94 Emmet # (Auto) (0.1 - 0.8 K/mm3) 0.75 [...] LovenoxDispo: Pending cardiology workupNOK: Elizabeth Hart (daughter): [phone] 1119- aPTT > 400 with troponin of [...] OlderDiscussion included: code status Attestations Teaching Physician Fdcmahfoywp8ir visit w/ resident:I was present with the resident during the history and exam. I discussed the case with the resident and . . . agree with the findings and plan as documented in the resident's note. ANANTH DR Noble, continue treatment, Cont Lovenox, medical Treatment, check echo at 1640 at 1645 Addendum 1: 08/05/230 by Alvaro Ron MD the word were lurred, concern for troke. 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 ([facility])EMERGENCY PROVIDER REPORTREPORT#:[id number] REPORT STATUS: SignedDATE:08/05/23 TIME: 0559 PATIENT: CHARLIE HART UNIT #: [id number]#: [id number] ROOM/BED:AGE: 88 SEX: M PCP PHYS: No Primary or Family PhysicianSERVICE DT: AUTHOR: Alan Scott MD LOCATION: [facility] * ALL edits or amendments must be [...] 08/050 Pulse 101 08/05 0450 Resp 18 08/05 [...] Call Information will see patient at 0602RPT #:[id number] OF REPORTEDEmergency department tbijzc8128-75-41Y22:59:00Z.LKWN73359176-3450OUXto ilable for patient ldmnMENMNQJOYSGEGT1388-51-86N55:02:42 [facility] 2021-12-16 10:12:00 L39928-35964276m9fTY 6SElfGC9xF0fSE6TUdMCAncZD2ipv Pwf5PvB47dBT+gOg9Jh2X0lqShdbho2128-40-89E00:12:00 [facility] ([facility]ITALCardiology Progress NoteREPORT#:[id number] REPORT STATUS: SignedDATE:12/16/21 TIME: 1011 PATIENT: CHARLIE HART UNIT #: [id number]#: [id number] [facility]: 86 SEX: M ATTEND: Alvaro [...] edema, 2+ peripheral pulsesMusculoskeletal: full range of motionNeuro/PYTHON WEB DEVELOPER: alert, oriented X 3, CN II-XII intact, no motor deficitsSkin: dry, intactPsychiatry: normal affect, normal judgment/insight, normal mood, no hallucinations ResultsFindings/Data:Laboratory Tests 12/16 12/16 12/15 12/15 0793 0746 2011 1600 Chemistry Sodium (137 - [...] (Auto) (14 - 44 %) 13.9 L Emmet % (Auto) (4 - 13 %) 10.4 Eos % (Auto) (0 - 6 %) 2.2 Baso % (Auto) (0 - 2 %) 0.2 Neut # (Auto) (2.0 - 7.6 K/mm3) 5.86 Lymph # (Auto) (1.0 - 3.8 K/mm3) 1.12 Emmet # (Auto) (0.1 - 0.8 K/mm3) 0.84 [...] home f/u one week. at 1153 RPT #:[id number] OF REPORTPRProgress ajhv4207-89-39M84:12:00Z.GVYE01742429-0326COFgvfj able for patient jsnkISCVQLIMOMZTHG4535-56-39J11:54:00 [facility] 2021-12-16 08:16:00 G34895-70595030IWd4r D7TojjvBYOWjbObUFaPRIBXXo0gKE DSngr+vs8Frby8prlRCbfgVgG4EQh80199-56-90T22:16:00 9206-[address] [address] PATIENT NAME: CHARLIE HART ADMIT DATE: 12/13/21ACCOUNT NO: [id number] ROOM NO: [facility] AGE: 86 REPORT TYPE: ELECTROCARDIOGRAM SEX: M ADMITTING PHYSICIAN:Alvaro Ron MD ATTENDING PHYSICIAN:Alvaro Ron MD Order:[id number] Reason : S/P PPI Test Date/Time Stamp:FriDec [...] CELIS at 0918 PATIENT NAME: CHARLIE HART .[id number] AVAvailable for patient dbibCZHMQJNLLZAOPG1812-76-09V42:18:24 [facility] 2021-12-16 08:16:00 [id number]+ MJnpotkGiyaXWM2qdEIRLmVQ5Cc9Y iIQgvMZQ3tOQfeKhyDDMtPUTHDwFX67983-39-76J32:16:00 5312-[address]602 [place] [address] PATIENT NAME: CHARLIE HART ADMIT DATE: 12/13/21ACCOUNT NO: [id number] ROOM NO: [facility] AGE: 86 REPORT TYPE: ELECTROCARDIOGRAM SEX: M ADMITTING PHYSICIAN:Alvaro Ron MD ATTENDING PHYSICIAN:Alvaro Ron MD Order:[id number] Reason : S/P PPI Test Date/Time Stamp:FriDec [...] CELIS at 1445 PATIENT NAME: CHARLIE HART .[id number] AVAvailable for patient mvdoEDAEQCZAMRNQVV3505-80-02J48:46:12 [facility] 2021-12-16 07:41:00 Q53252-64679091X04+2 wpTDcGvFmmWN4znSAqjCGJhmT8r5k +RtdP+oxFUGFkcW+JEeUUpONa5qVEK9215-50-89P60:41:00 [facility] CenterHospitalist Discharge SummaryREPORT#:[id number] REPORT STATUS: SignedDATE:12/16/21 TIME: 740 PATIENT: CHARLIE HART UNIT #: [id number]#: [id number] [facility]GE: 86 SEX: M ATTEND: Alvaro Ron [facility] AUTHOR: Derik Birmingham MD R2 * ALL edits or amendments must be made on the electronic/computer document * Derik Birmingham 12/16/21 0741:General InformationProblem List/A P: 1. [...] in several days prior to admission. His pleating machine operator, Dr. Celis was consulted. Echocardiogram was normal. [...] B/P Mean 99 12/16 06 Pulse 73 12/17 623 Resp 20 12/17 [...] all, no clubbing, no cyanosis, R hand loss prevention detective mildly lowerMusculoskeletal: normal inspection, no muscle spasmNeuro/PYTHON WEB DEVELOPER: alert, oriented X 3, no motor deficitsSkin: [...] 1700 Coagulation INR (0.86 - 1.14) 1.1 05/ 0510 APTT (26.2 - 35.4 SECONDS) 25.2 L 05/21 0510 PT Patient/Control Mix (9.4 - 12.7 SECONDS) 12.6 05/21 0510 Hematology WBC (3.8 - 9.8 K/MM3) 7.7 05/21 0510 RBC (3.95 - 5.67 M/MM3) 3.69 L / 0510 Hgb (12.4 - 16.7 G/DL) 13.0 05/21 0510 Hct (35.9 - 49.5 %) 40.3 05/21 0510 MCV (81.7 - 96.1 fL) 109 H 05/ 0510 MCH (27.6 - 33.2 pg) 35.2 H 05/ 0510 MCHC (32.9 - 35.5 %) 32.3 L / 0510 RDW (12.1 - 15.2 %) 12.3 05/ 0510 Plt Count (129 - 368 K/MM3) 165 05/21 0510 MPV (7.4 - 10.4 fl) 9.3 05/21 0510 Neut % (Auto) (43 - 75 %) 64.1 05/21 0510 Lymph % (Auto) (14 - 44 %) 20.5 05/21 0510 Emmet % (Auto) (4 - 13 %) 11.4 05/21 0510 Eos % (Auto) (0 - 6 %) 3.0 / 0510 Baso % (Auto) (0 - 2 %) 0.7 05/ 0510 Neut # (Auto) (2.0 - 7.6 K/mm3) 4.92 05/21 0510 Lymph # (Auto) (1.0 - 3.8 K/mm3) 1.57 05/21 0510 Emmet # (Auto) (0.1 - 0.8 K/mm3) 0.87 H /21 0510 Eos # (Auto) (0.0 - 0.2 K/mm3) 0.23 H 05/21 0510 Baso # (Auto) (0.0 - 0.2 K/mm3) 0.05 05/ 0510 Immature Gran % (0.0 - 2.0 [...] to: Home/Self CareAdditional Discharge Routines: PCP Follow-Up, Slitting And Shipping Supervisor Follow-UpDiet: Resume Home Diet/FeedsActivity: Resume Normal Activity, [...] pt request at 1525 at 1640 RPT #:[id number] OF REPORTDSDischarge kuwiqmi5804-09-68W52:41:00Z.YJHG52476475-4978OSAb ailable for patient mzfePUUQOLBYHWTYIB8512-79-06B26:25:28 [facility] 2021-12-15 12:52:00 Y20058-25162730sq38d C6MxJezlJq2McvE0TiMDgMmIIWAWs s22jkhYLyswqg8JwSGnPBv1z1il5MG8493-92-74C90:52:00 7148-[address] [address] PATIENT NAME: CHARLIE HART ADMIT DATE: 12/13/21ACCOUNT NO: [id number] ROOM NO: [facility] AGE: 86 REPORT TYPE: ELECTROCARDIOGRAM SEX: M ADMITTING PHYSICIAN:Alvaro Ron MD ATTENDING PHYSICIAN:Alvaro Ron MD Order:[id number] Reason : AV BLOCK Test Date/Time Stamp:FriDec [...] CELIS at 1656 PATIENT NAME: CHARLIE HART .[id number] AVAvailable for patient wksjVQATQCARFMXEVR8304-17-43S65:56:47 [facility] 2021-12-15 12:52:00 J56521-80298187e8Nyr ldpwOVVHPBMk0KaHB2oVQPmyv7nll XS6iQ+37e+1YBnV1Fi10sanw1cr1hF3951-83-23E96:52:00 9336-[address] [address] PATIENT NAME: CHARLIE HART ADMIT DATE: 12/13/21ACCOUNT NO: [id number] ROOM NO: Z.350 AGE: 86 REPORT TYPE: ELECTROCARDIOGRAM SEX: M ADMITTING PHYSICIAN:Alvaro Ron MD ATTENDING PHYSICIAN:Alvaro Ron MD Order:[id number] Reason : AV BLOCK Test Date/Time Stamp:FriDec [...] CELIS at 1446 PATIENT NAME: CHARLIE HART .[id number] AVAvailable for patient agwiWFFLMOQOCNZPUV4337-83-03K91:46:22 [facility] 2021-12-15 12:19:00 [id number] +/+zLB6m6LdJVNhAVP791PslR+cIu FUV2+WfANnbAI76v6l4i29lIvKWXFf4527-00-11I70:19:00 [phone] [address] PATIENT NAME: CHARLIE HART ADMIT DATE: 12/13/21ACCOUNT NO: [id number] ROOM NO: Z.350 AGE: 86 REPORT TYPE: ELECTROCARDIOGRAM SEX: M ADMITTING PHYSICIAN:Alvaro Ron MD ATTENDING PHYSICIAN:Alvaro Ron MD Order:[id number] Reason : AV Block Test Date/Time Stamp:Sat [...] CELIS at 1655 PATIENT NAME: CHARLIE HART .[id number] AVAvailable for patient vyxsNPQKGQYCAFILCZ7200-09-78L46:55:27 [facility] 2021-12-15 12:19:00 [id number] hDwHo5IUeniMoloRY1dOvdkPfj4Cx wJ4IJBzIYBhQWPWMfkt0HYIAdI8KdY5373-92-81M55:19:00 [phone] [address] PATIENT NAME: CHARLIE HART ADMIT DATE: 12/13/21ACCOUNT NO: [id number] ROOM NO: [facility] AGE: 86 REPORT TYPE: ELECTROCARDIOGRAM SEX: M ADMITTING PHYSICIAN:Alvaro Ron MD ATTENDING PHYSICIAN:Alvaro Ron MD Order:[id number] Reason : AV Block Test Date/Time Stamp:Sat [...] CELIS at 1446 PATIENT NAME: CHARLIE HART .[id number] AVAvailable for patient xswuTFTHTTOCLUQAUW6845-88-56C94:46:33 [facility] 2021-12-15 12:16:00 [id number] +5mxTmjE0dF1NT2AbHJrV5uvmZXbl xRRGXeacVaTuekeA3Y77GU3PUU3Dj35374-36-40E98:16:00 [phone] [place] [address] PATIENT NAME: CHARLIE HART ADMIT DATE: 12/13/21ACCOUNT NO: [id number] ROOM NO: [facility] AGE: 86 REPORT TYPE: ELECTROCARDIOGRAM SEX: M ADMITTING PHYSICIAN:Alvaro Ron MD ATTENDING PHYSICIAN:Alvaro Ron MD Order:[id number] Reason : S/P PPI Test Date/Time Stamp:FriDec [...] CELIS at 1654 PATIENT NAME: CHARLIE HART .[id number] AVAvailable for patient pqizWPKEGEKFVWGEIW9511-08-29W74:55:07 [facility] 2021-12-15 12:16:00 [id number] ihxc8Us/cWXXwk2y5Q+mf4BVnhXq8 4/x3FrHCY2t8LtRiYYoU4vO6/uqRA48715-78-78C30:16:00 [phone] [place] [id number] PATIENT NAME: CHARLIE HART ADMIT DATE: 12/13/21ACCOUNT NO: [id number] ROOM NO: [facility] AGE: 86 REPORT TYPE: ELECTROCARDIOGRAM SEX: M ADMITTING PHYSICIAN:Alvaro Ron MD ATTENDING PHYSICIAN:Alvaro Ron MD Order:[id number] Reason : S/P PPI Test Date/Time Stamp:FriDec [...] CELIS at 1444 PATIENT NAME: CHARLIE HART .[id number] AVAvailable for patient ccpuJFQTKJTEKTNNJC5839-39-73F02:46:33 [facility] 2021-12-15 11:40:00 [id number]/c9f xvofvhy3HyKaGC/SfliTIHx+nKcLf jwbCz6ZL3cSDAbdWxxznCsDUT9Reo+5470-48-66B14:40:00 [phone] [address] PATIENT NAME: CHARLIE HART ADMIT DATE: 12/13/21ACCOUNT NO: [id number] ROOM NO: [facility] AGE: 86 REPORT TYPE: CARDIAC CATHETERIZATION REPORT SEX: M ADMITTING PHYSICIAN:Alvaro Ron MD ATTENDING PHYSICIAN:Alvaro Ron MD PROCEDURE DATE: 12/15/2021 FREELANCE RECRUITER: Deyvi Celis MD TITLE OF THE PROCEDURE: [...] chart. Dictated By: Deyvi Celis MD WT: CATH:ZJESSICA/DANIEL/NTSDD: 12/15/2021 11:40:13DT: 12/15/2021 11:44:31Conf#: [id number]/DID#: [id number] Authenticated by Deyvi Celis MD On 12/15/2021 11:54:46 AM at 1154 PATIENT NAME: CHARLIE HART rjkh5734-37-69Z03:44:00Z.OZN98120823-9706YTYuuylt ble for patient rdqeDRHHQFPLVJWSFJ4900-67-60A14:55:16 [facility] 2021-12-15 08:47:00 [id number]+YJL JgKEgeiVFsneyX/u//tZFis9ZxbN+ JKsehTNaomIK8MBkQdxQr+Jd1MZI5i2797-68-33Y13:47:00 [facility] ([facility]ospitalist Progress NoteREPORT#:[id number] REPORT STATUS: SignedDATE:12/15/21 TIME: 08 PATIENT: CHARLIE HART UNIT #: [id number]#: [id number] [facility]GE[facility] 86 SEX: M ATTEND: Alvaro [...] 2200 2 12/14 2120 25 19 98 12/14 2101 27 19 [...] all, no clubbing, no cyanosis, R hand loss prevention detective mildly lowerMusculoskeletal: normal inspection, no muscle spasmNeuro/PYTHON WEB DEVELOPER: alert, oriented X 3, no motor deficitsSkin: [...] % (Auto) (14 - 44 %) 20.5 Emmet % (Auto) (4 - 13 %) 11.4 Eos % (Auto) (0 - 6 %) 3.0 Baso % (Auto) (0 - 2 %) 0.7 Neut # (Auto) (2.0 - 7.6 K/mm3) 4.92 Lymph # (Auto) (1.0 - 3.8 K/mm3) 1.57 Emmet # (Auto) (0.1 - 0.8 K/mm3) 0.87 [...] post PM at 1311 at 1604 RPT #:[id number] OF REPORTPRProgress omlq7716-65-28P14:47:00Z.ZNBN36020666-9569SKLxgzd able for patient sitnZRJIEPQZMOAJNT7699-62-34X91:12:09 [facility] 2021-12-15 08:08:00 [id number] 9OkXJHOXRy7bEuvuUPmWwL+DobKob yzVmBjVq4gFGl2iqwRyyRw6/acGBg48960-08-46Z19:08:00 3691-[address] [place] [address] PATIENT NAME: CHARLIE HART ADMIT DATE: 12/13/21ACCOUNT NO: [id number] ROOM NO: Z.350 AGE: 86 REPORT TYPE: ELECTROCARDIOGRAM SEX: M ADMITTING PHYSICIAN:Alvaro Ron MD ATTENDING PHYSICIAN:Alvaro Rno MD Order:[id number] Reason : AV Block Test Date/Time Stamp:FriDec [...] CELIS at 1025 PATIENT NAME: CHARLIE HART .[id number] AVAvailable for patient sukbHGCILMIIKRFGRW7142-45-88B66:25:21 [facility] 2021-12-15 08:08:00 [id number] +d6eHomcxgHbcdLv8Sv1Suc1WiRU6 81LXZpGCvhKVRjbygM+qGsmRdVTmoD8709-72-98Q21:08:00 [id number] [address] PATIENT NAME: CHARLIE HART ADMIT DATE: 12/13/21ACCOUNT NO: [id number] ROOM NO: Z.350 AGE: 86 REPORT TYPE: ELECTROCARDIOGRAM SEX: M ADMITTING PHYSICIAN:Alvaro Ron MD ATTENDING PHYSICIAN:Alvaro Ron MD Order:[id number] Reason : AV Block Test Date/Time Stamp:FriDec [...] CELIS at 1446 PATIENT NAME: CHARLIE HART .[id number] AVAvailable for patient ekwvFEQWPUMZEMYVBQ9414-70-49K28:46:53 [facility] 2021-12-15 05:30:00 [id number] RSOjNoF0f7uoVj+Zzf9hyeFqN6CeX QqrKM9gg+e6sgTVEi81afKbzVlUYJd4395-58-64I24:30:00 [facility] CenterCard[facility] Progress NoteREPORT#:[id number] REPORT STATUS: SignedDATE:12/15/21 TIME: 05 PATIENT: CHARLIE HART UNIT #: [id number]#: [id number] [facility] AGE: 86 SEX: M ATTEND: Alvaro Ron [facility] AUTHOR: Deyvi Celis MD * ALL [...] edema, 2+ peripheral pulsesMusculoskeletal: full range of motionNeuro/PYTHON WEB DEVELOPER: alert, oriented X 3, CN II-XII intact, [...] % (Auto) (14 - 44 %) 20.5 Emmet % (Auto) (4 - 13 %) 11.4 Eos % (Auto) (0 - 6 %) 3.0 Baso % (Auto) (0 - 2 %) 0.7 Neut # (Auto) (2.0 - 7.6 K/mm3) 4.92 Lymph # (Auto) (1.0 - 3.8 K/mm3) 1.57 Emmet # (Auto) (0.1 - 0.8 K/mm3) 0.87 [...] S/P cholecystectomy Orders: Procedure Date/time Status IMPLANT 12/15 0748 Active EKG 12/15 05 Active PROTHROMBIN TIME 12/15 043 Complete PTT ACTIVATED 12/16 431 Complete Code [...] in detail, pt willing to proceed. at [address] [place] [address] #:[id number] OF REPORTPRProgress fydw4629-77-86U65:30:00Z.NNVT17950016-3414IQExzal able for patient njnySJYTYCJECUDPFN7034-36-29Z67:53:54 [facility] 2021-12-14 13:44:00 [id number] pVWfvNHMBzFJVXv1BfxkQluGxUWFP 9YNcGeraEOx5E6AEs1Hmtku7eNnTCm6395-55-41Z63:44:00 4001-[address] [address] PATIENT NAME: CHARLIE HART ADMIT DATE: 12/13/21ACCOUNT NO: [id number] ROOM NO: BRIDGER AGE: 86 REPORT TYPE: ECHOCARDIOGRAM SEX: M ADMITTING PHYSICIAN:Alvaro Ron MD ATTENDING PHYSICIAN:Alvaro Ron MD *[facility]*[address] [place], [place] [address]Esjsn Transthoracic Echocardiogram Patient: Charlie HartStudy Date: 12/14/2021 BP: 163 / 69 [facility]: [id number] : 1935 Age: 86 Height: 68 in / 172.7 cmAccession#: [id number] Gender: M Weight: 190 lb / 86.4 kgBMI/BSA: 28.9 kg/m 2 / 2.06 m 2 *Ordering Physician: * Deyvi Celis MD *Interpreting Physician: * Deyvi Celis MD*Restaurant Host: * Carmina Peralta RVT Indications: Hypertension. Study data: Transthoracic echocardiogram. Procedure: Transthoracicechocardiography was performed. Images were obtained using a OnAir3G cardiacultrasound machine. Image quality was suboptimal. M-mode, [...] cm 2 --------- Pulmonic valve Value Ref VA v, ED 0.34 m/sec --------- Tricuspid valve [...] at 1344 PATIENT NAME: CHARLIE HART :44:0 0Z.[id number] for patient gmobATEOJCQKYANSFI8800-76-04J90:44:31 [facility] 2021-12-14 08:13:00 [id number] 3Of6yjJLjuPlR0qqMx97g5Ak69sR8 t4hYAJs0fPUNkkrtQ1NvuR67Nj2tOc8303-30-01D03:13:00 [facility] ([facility]Hospital[facility] Progress NoteREPORT#:[id number] REPORT STATUS: SignedDATE:12/14/21 TIME: 812 PATIENT: CHARLIE HART UNIT #: [id number]#: [id number] [facility]OM[facility]BED: [facility]DOB: [birth year] AGE: 86 SEX: M ATTEND: Alvaro [...] all, no clubbing, no cyanosis, R hand loss prevention detective mildly lowerMusculoskeletal: normal inspection, no muscle spasmNeuro/PYTHON WEB DEVELOPER: alert, oriented X 3, no motor deficitsSkin: [...] (Auto) (14 - 44 %) 22.3 26.6 Emmet % (Auto) (4 - 13 %) 8.9 9.8 Eos % (Auto) (0 - 6 %) 2.6 3.0 Baso % (Auto) (0 - 2 %) 0.6 0.7 Neut # (Auto) (2.0 - 7.6 K/mm3) 4.46 4.45 Lymph # (Auto) (1.0 - 3.8 K/mm3) 1.52 1.98 Emmet # (Auto) (0.1 - 0.8 K/mm3) 0.61 [...] and plan. at 1633 at 1724 RPT #:[id number] OF REPORTPRProgress owdx7626-32-83C10:13:00Z.TCUI24100328-2754OFBtwnn able for patient kmrkAGRUWZIZRNQJHS4787-12-47S48:34:06 [facility] 2021-12-14 06:39:00 [id number] 1OnxiIn9kRs+tldGXOkRY/iti3W0v T6u1YDNdbaxfnmLdKyuRzxBojyU73V8472-44-00U32:39:00 [facility] ([facility])Cardiology Progress NoteREPORT#:[id number] REPORT STATUS: SignedDATE:12/14/21 TIME: 638 PATIENT: CHARLIE HART UNIT #: [id number]#: [id number] [address] AGE: 86 SEX: M ATTEND: [...] LE assessment: no edemaMusculoskeletal: full range of motionNeuro/PYTHON WEB DEVELOPER: alert, oriented X 3, CN II-XII intactSkin: [...] % (Auto) (14 - 44 %) 26.6 Emmet % (Auto) (4 - 13 %) 9.8 Eos % (Auto) (0 - 6 %) 3.0 Baso % (Auto) (0 - 2 %) 0.7 Neut # (Auto) (2.0 - 7.6 K/mm3) 4.45 Lymph # (Auto) (1.0 - 3.8 K/mm3) 1.98 Emmet # (Auto) (0.1 - 0.8 K/mm3) 0.73 [...] will proceed with permanent pacing. at [address] [facility] #:[id number] OF REPORTPRProgress ezcm1816-98-91D56:39:00Z.XQWT42052389-6846LLQybdm able for patient azudPVUGUCWWXEJDAA8073-05-09P22:02:43 [facility] 2021-12-13 18:41:00 [id number] vNnmHBuYbtwdKgoU2H577SGD/DELI NGYtkT3snSdP6sQ0HER2Bz7uNbsB306057-57-30G48:41:00 [address] [place] [address] PATIENT NAME: CHARLIE HART ADMIT DATE: 12/13/21ACCOUNT NO: [id number] ROOM NO: BRIDGER AGE: 86 REPORT TYPE: CONSULTATION REPORT SEX: M ADMITTING PHYSICIAN:Alvaro Ron MD ATTENDING PHYSICIAN:Alvaro Ron MD CONSULTATION DATE: 12/13/2021 CONSULTING PHYSICIAN: Kyree Noble MD REFERRING PHYSICIAN: Alvaro Ron MD REASON FOR CONSULTATION: We were asked to evaluate this patient for syncope. HISTORY OF PRESENT ILLNESS: This is an 86-year-old male with a history ofhypertension and dyslipidemia, who was transferred from [facility] after he presented there for [...] MD WT: CON:Z.HIM/PEPGR/NTSDD: 12/13/2021 18:41:17DT: 12/13/2021 23:15:56Conf#: [id number]/DID#: [id number] Authenticated by Kyree Noble MD On 12/14/2021 06:49:14 AM at 0649 PATIENT NAME: CHARLIE HART :15:00[facility] [id number] for patient zlwlACWTQVKJEIWAYB9600-18-22N17:50:02 [facility] 2021-12-13 17:18:00 [id number] e024Z8tPAF3xMjEowrd7AX97DEg4b 1qiZgeywdV1+YNDt8TsbP43NaHSs5F5359-67-81Y19:18:00 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, HTN on plavix,imdur, [...] Result Date Time Pulse Ox 99 12/13 164 B/P 177/72 12/13 1646 B/P Mean 107 12/13 164 Temp 97.5 12/13 164 Pulse 34 12/13 164 Resp 20 12/13 1646 Patient Weight and [...] all, no clubbing, no cyanosis, R hand loss prevention detective mildly lowerMusculoskeletal: normal inspection, no muscle spasmNeuro/PYTHON WEB DEVELOPER: alert, oriented X 3, no motor deficitsSkin: [...] % (Auto) (14 - 44 %) 26.6 Emmet % (Auto) (4 - 13 %) 9.8 Eos % (Auto) (0 - 6 %) 3.0 Baso % (Auto) (0 - 2 %) 0.7 Neut # (Auto) (2.0 - 7.6 K/mm3) 4.45 Lymph # (Auto) (1.0 - 3.8 K/mm3) 1.98 Emmet # (Auto) (0.1 - 0.8 K/mm3) 0.73 [...] ordered: yes susp.cardiac etiology at 2126 RPT #:[id number] OF REPORTHPHistory and physical cjroroifbfl7600-98-70L90:18:00Z.XJEV89248425-2224 AVAvailable for patient ylbeGKMZRIFMRPPBDH9398-38-82G70:26:24 [facility] 2021-12-13 17:00:00 [id number] IPlTZf/cEa8JH9vL7UM812P1mWNzs s2muHBqomiRUWBuml9ZY5CXhnnUSTu3327-95-48N51:00:00 [facility] ([facility])EMERGENCY PROVIDER REPORTREPORT#:[id number] REPORT STATUS: SignedDATE:12/13/21 TIME: 1700 PATIENT: CHARLIE HART UNIT #: [id number]#: [id number] [address] SEX: M PCP PHYS: No Primary or Family PhysicianSERVICE AUTHOR: Thanh Peralta MD LOCATION: [facility] * ALL edits or amendments [...] History - AdultStated Complaint ER TRANSFER FROM [place], [address] BLOCKAllergiesCoded Allergies:No Known Allergies (12/13/21) Pt reports no significant: Past medical history, Past surgical history, Family history, Social historySmoking status: Smoking status for patients 13 years old or older: Unknown,if ever smoked Physical Exam Vital SignsVital SignsFirst Documented: Result Date Time Pulse Ox 99 12/13 1646 B/P 177/72 05/19 1647 B/P Mean 107 12/13 1647 Temp 36.4 12/13 1647 Pulse 34 12/13 1647 Resp 20 12/13 1647 Last Documented: Result Date Time Pulse Ox 99 12/13 1647 B/P 177/72 12/13 1647 B/P Mean 107 12/13 1647 Temp 36.4 12/13 1647 Pulse 34 12/13 1647 Resp 20 12/13 1647 Review of Vital Signs Reviewed Free Text [...] Call Information will see patient at 1219RPT #:[id number] OF REPORTEDEmergency department cbtbfh8068-27-67J12:00:00Z.JGLT68260089-3289EHVtq ilable for patient ojvoOZHKNMQHOUBLSY0577-52-08F17:20:06 [facility]
[2024-02-22] MEDS ORDERED: MORPHINE 2 MG/ML SYR ONE (19:34)
[2024-02-22] MEDS ORDERED: ONDANSETRON 4 MG/2 ML VIAL ONE (19:34)
[2024-02-22 19:46] LABS: Absolute Eosinophils 0.2 K/uL (0-0.5); Absolute Lymphocytes (CBC) 1.4 K/uL (0.7-4.9); Absolute Neutrophil 6.3 K/uL (1.8-8.0); Basophils % 0.5 % (0-1.3); Eosinophils % 2.3 % (0-4.4); Hematocrit 29.3 % (39.6-49.0); Hemoglobin 9.9 g/dL (13.6-17.9); Lymphocytes % 16.1 % (15.3-44.8); MCH 34.6 pg (27.0-35.0); MCHC 33.7 g/dL (32.0-36.0); MCV 102.5 fL (80-100); MPV 6.4 fL (7.6-11.3); Monocytes % 10.7 % (3.3-12.3); Neutrophils % 70.4 % (41.7-73.7); Nucleated Red Blood Cells % 0.1 % (0-0); Platelets 219 thou/uL (152-406); RBC Red Blood Cell Count 2.86 M/uL (4.33-5.43)
[2024-02-22 20:06] LABS: Albumin 2.9 g/dL (3.4-5.0); Albumin/Globulin Ratio 0.8 (1.1-1.8); Anion Gap 8.6 mEq/L (5.0-15.0); Bilirubin Direct 0.2 mg/dL (0-0.2); Bilirubin Indirect, Calculated 0.5 mg/dL (0.2-0.8); Bilirubin Total 0.7 mg/dL (0.2-1.0); Globulin 3.7 g/dL (2.3-3.5); Magnesium 2.5 mg/dL (1.6-2.4); Potassium 4.6 mEq/L (3.5-5.1); Protein, Total 6.6 g/dL (6.4-8.2); Troponin High Sensitivity 5.5 pg/mL (<58.9)
--- NOTE | 2024-02-22 20:48 | RAD REPORT ---
EXAM DESCRIPTION: CT - Pelvis Wo Cont - 02/22/2024 7:52 pm CLINICAL HISTORY: acute fall , left hip pain COMPARISON: Hip Left Wo Con dated 10/05/2023 TECHNIQUE: Thin cut axial CT imaging of the pelvis was performed without IV contrast. Multiplanar re formats were generated and reviewed. All CT scans are performed using dose optimization technique as appropriate and may include automated exposure control or mA/KV adjustment according to patient size. FINDINGS: Minimally displaced fractures of the left inferior pubic ramus. Bony pelvis is otherwise intact. Cortical irregularities along the coccygeal segments are stable, sug gestive of remote fractures. Grade 1 anterolisthesis of L5-S1, with advanced facet arthropathy and at least moderate central canal stenosis at that level. The left total hip arthroplasty in place. No evidence of periprosthetic fracture. Advanced degenerative changes of the symphysis pubis. Moderate bilateral sacroiliac joint degenerativ e changes with partial ankyloses. Moderate right hip joint degenerative changes. Small right inguinal hernia containing some free fluid. Evidence of prior lower ventral hernia mesh r epair. No dilated bowel loops or bowel wall thickening. No free air, free fluid or inflammatory stranding. N o suspicious mass or bulky lymphadenopathy. Moderate prostatomegaly with calcifications. 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 The urinary bladder is without signific ant finding. IMPRESSION: Minimally displaced fractures of the left inferior pubic ramus. No other acute findings. 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 Please see details above.
[2024-02-22 20:51] LABS: PT Prothrombin Time 23.2 SECONDS (9.4-12.5); Protime INR 2.12
--- NOTE | 2024-02-22 21:21 | ER ---
Nurse's Notes [facility] Name: Charlie Hart Age: 88 yrs Sex: Male : 1935 Arrival Date: 02/22/2024 Time: 19:04 Bed 7 Private MD: Diagnosis: Acute on chronic renal failure, left inferior pubic ramus fracture, intractable pain, Fall at home Presentation: 02/21 19:07 Chief complaint: Patient states: fell a few days ago, c/o L side hip pain, bruising to al5 area, nonweightbearing. Coronavirus screen: At this time, the client does not indicate any symptoms associated with coronavirus-19. Ebola Screen: No symptoms or risks identified at this time. Initial Sepsis Screen: Does the patient meet any 2 criteria? No. Patient's initial sepsis screen is negative. Does the patient have a suspected source of infection? No. Patient's initial sepsis screen is negative. Risk Assessment: Do you want to hurt yourself or someone else? Patient reports no desire to harm self or others. Onset of symptoms was February 20, 2024. 19:07 Method Of Arrival: EMS: [facility] al5 19:07 Acuity: CLAUDINE 3 al5 19:15 Care prior to arrival: IV initiated. 20 GA, in the right antecubital area. al5 19:18 Mechanism of Injury: Fall from standing position. Trauma event details: Injury al5 occurred: at home. Triage Assessment: 19:11 General: Appears in no apparent distress. comfortable, Behavior is calm, cooperative. al5 Pain: Complains of pain in Left Hip Pain currently is 4 out of 10 on a pain scale. EENT: No signs and/or symptoms were reported regarding the EENT system. Neuro: Level of Consciousness is awake, alert, obeys commands, Oriented to person, place, time, situation. Cardiovascular: Patient's skin is warm and dry. Respiratory: Airway is patent Respiratory effort is even, unlabored, Respiratory pattern is regular, symmetrical. GI: No signs and/or symptoms were reported involving the gastrointestinal system. : No signs and/or symptoms were reported regarding the genitourinary system. Derm: Skin is intact, Skin is pink, warm \T\ dry. normal. Musculoskeletal: Reports pain in Left Hip post fall few days ago. Trauma Activation: Physician: ED Physician; Name: ; Notified At: ; Arrived At: Physician: General Surgeon; Name: ; Notified At: ; Arrived At: Physician: Radiology; Name: ; Notified At: ; Arrived At: Physician: Respiratory; Name: ; Notified At: ; Arrived At: Physician: Lab; Name: ; Notified At: ; Arrived At: 19:18 no trauma activation or alerts al5 Historical: - Allergies: :09 No Known Allergies; al5 - Home Meds: : amiodarone 200 mg Oral tablet 2 times per day [Active]; ferrous sulfate 325 mg (65 mg al5 iron) Oral tablet daily [Active]; atorvastatin 80 mg Oral tablet every evening [Active]; Plavix 75 mg Oral tablet daily [Active]; tramadol 50 mg Oral tablet 2 times per day [Active]; ascorbic acid (vitamin C) 500 mg tablet daily [Active]; methocarbamol 500 mg Oral tablet every 8 hours [Active]; metoprolol succinate 25 mg oral Tablet, Extended Release 24 hr 0.5 tabs daily [Active]; - PMHx: 19:09 CAD; chronic kidney disease; CVA; GERD; Hyperlipidemia; Hypertension; macular al5 degeneration; osteoarthritis; Pre-Diabetes; Prostate Cancer; stroke; West Nile Virus; - PSHx: 19:09 bilateral knee replacement; cataract repair; Cholecystectomy; hip/shoulder replacement; al5 pacemaker; - Immunization history:: Adult Immunizations up to date. - Infectious Disease History:: Denies. - Immunization history: Last tetanus immunization: - up to date. - Social history:: Smoking status: Patient denies any tobacco usage or history of. - Family history:: not pertinent. Screenin:15 [facility] ED Fall Risk Assessment (Adult) History of falling in the last 3 months, al5 including since admission Yes- single mechanical fall (1 pt) Confusion or Disorientation No (0 pts) Intoxicated or Sedated No (0 pts) Impaired Gait Yes (1 pt) Mobility Assist Device Used Yes (1 pt) Altered Elimination No (0 pt) Score/Fall Risk Level 3 or more points = High Risk Oriented to surroundings, Maintained a safe environment, Hourly rounding (assess needs \T\ fall precautionary measures) done, Used ambulatory aids as needed (educated on \T\ assisted with), Apply high fall risk patient identification: yellow non skid footwear/ fall signage. Abuse screen: Denies threats or abuse. Denies injuries from another. Nutritional screening: No deficits noted. Tuberculosis screening: No symptoms or risk factors identified. Primary Survey: 19:16 NO uncontrolled hemorrhage observed. Breathing/Chest: Spontaneous respiratory effort, al5 equal unlabored respirations, breath sounds clear bilaterally, regular pattern, symmetrical chest rise and fall. Respiratory effort: spontaneous. Circulation: No external hemorrhage present. Regular and strong central pulse, skin warm/dry/normal color. Disability Pupils are equal, round, reactive to light and accommodation. Exposure/Environment: A warming method has been applied: A warm blanket has been provided to the patient. 20:18 Reassessment Breathing: Spontaneous respiratory effort, equal unlabored respirations, al5 breath sounds clear bilaterally, regular pattern with symmetrical chest rise and fall. Secondary Survey: 19:17 HEENT: No deficits noted. Gastrointestinal: No deficits noted. : No signs and/or al5 symptoms were reported regarding the genitourinary system. Musculoskeletal: Reports pain in Left Hip. Assessment: 19:14 General: see triage note. al5 20:18 Reassessment: Patient appears in no apparent distress at this time. No changes from al5 previously documented assessment. Patient and/or family updated on plan of care and expected duration. Pain level reassessed. Patient is alert, oriented x 3, equal unlabored respirations, skin warm/dry/pink. Vital Signs: 19:07 BP 130 / 68; Pulse 69; Resp 16; Temp 97.8; Pulse Ox 96% on R/A; Weight 75.3 kg; Height al5 5 ft. 8 in. ; Pain 5/10; 20:19 BP 105 / 62; Pulse 66; Resp 16; Pulse Ox 98% on R/A; al5 22:06 BP 105 / 92; Pulse 66; Resp 18; Temp 97.8; Pulse Ox 98% on R/A; al5 23:00 BP 118 / 72; Pulse 75; Resp 18; Pulse Ox 95% on R/A; al5 19:07 Body Mass Index 25.24 (75.30 kg, 172.72 cm) al5 19:07 Pain Scale: Adult al5 Yady Coma Score: 19:18 Eye Response: spontaneous(4). Motor Response: obeys commands(6). Verbal Response: al5 oriented(5). Total: 15. 02/22 19:32 Eye Response: spontaneous(4). Motor Response: obeys commands(6). Verbal Response: sp4 oriented(5). Total: 15. Trauma Score (Adult): 02/21 19:18 Eye Response: spontaneous(1); Verbal Response: oriented(1); Motor Response: obeys al5 commands(2); Systolic BP: > 89 mm Hg(4); Respiratory Rate: 10 to 29 per min(4); Yady Score: 15; Trauma Score: 12 ED Course: 19:06 Patient arrived in ED. al5 19:07 Jayne Ho RN is Primary Nurse. al5 19:07 Chito Lantigua MD is Attending Physician. al5 19:09 Triage completed. al5 19:14 Arm band placed on right wrist. Patient placed in the treatment room, on a stretcher. al5 19:15 No provider procedures requiring assistance completed. Maintain EMS IV. Dressing al5 intact. Good blood return noted. Site clean \T\ dry. Gauge \T\ site: 20 G RAC. 19:16 Patient has correct armband on for positive identification. Bed in low position. Call al5 light in reach. Side rails up X2. Provided Education on: processes and procedures. 19:19 O2 via room air. al5 19:20 Thermoregulation: warm blanket given to patient. al5 19:54 CT Pelvis wo Cont In Process Unspecified. EDMS 21:20 Conner Godinez MD is Hospitalizing Provider. sp4 02/22 00:06 Patient admitted, IV remains in place. al5 Administered Medications: 02/21 19:39 Drug: morphine IVP or IV 2 mg IVP once over 4 mins Route: IVP; Infused Over: 4 mins; al5 Site: right antecubital; 20:15 Follow up: Response: No adverse reaction al5 21:51 Follow up: Response: No adverse reaction al5 19:39 Drug: Ondansetron IVP 4 mg IVP once; over 2 minutes Route: IVP; Site: right antecubital;al5 20:15 Follow up: Response: No adverse reaction al5 21:51 Follow up: Response: No adverse reaction al5 22:13 Drug: NS 0.9% IV 1000 ml IV at 100 ml/hr continuous Route: IV; Rate: 100 ml/hr; Site: al5 right antecubital; Medication: 19:20 VIS not applicable for this client. al5 Intake: 19:18 N/A al5 Outcome: 21:20 Decision to Hospitalize by Provider. sp4 22:15 Admitted to Med/surg Report called to chelo heath 22:15 Patient's length of stay in the Emergency Department was greater than 2 hours. patient admitted to hospital for PTPatient's length of stay extended due to 02/22 00:06 Admitted to Med/surg accompanied by nurse, accompanied by tech, via stretcher, room al5 431, with chart, Condition: good Instructed on the need for admit, 00:06 Patient left the ED. al5 Signatures: Dispatcher [employer] EDChito Ibarra MD MD sp4 Jayne Ho RN RN al5
--- NOTE | 2024-02-22 21:21 | EDPHYS ---
Physician Documentation [facility] Name: Jose Saldana Age: 88 yrs Sex: Male : 1935 Arrival Date: 02/22/2024 Time: 19:04 Bed 7 Private MD: ED Physician Chito Lantigua HPI: 02/21 20:33 This 88 yrs old Male presents to ER via EMS with complaints of Fall Injury, sp4 Hip Injury, Hip Pain. 02/22 19:32 88-year-old male presents with acute fall complaining moderate to severe left hip pain sp4 and right flank pain also skin tear to the right lower back. Historical: - Allergies: 02/21 19:09 No Known Allergies; al5 - Home Meds: 19:09 amiodarone 200 mg Oral tablet 2 times per day [Active]; ferrous sulfate 325 mg (65 mg al5 iron) Oral tablet daily [Active]; atorvastatin 80 mg Oral tablet every evening [Active]; Plavix 75 mg Oral tablet daily [Active]; tramadol 50 mg Oral tablet 2 times per day [Active]; ascorbic acid (vitamin C) 500 mg tablet daily [Active]; methocarbamol 500 mg Oral tablet every 8 hours [Active]; metoprolol succinate 25 mg oral Tablet, Extended Release 24 hr 0.5 tabs daily [Active]; - PMHx: 19:09 CAD; chronic kidney disease; CVA; GERD; Hyperlipidemia; Hypertension; macular al5 degeneration; osteoarthritis; Pre-Diabetes; Prostate Cancer; stroke; West Nile Virus; - PSHx: 19:09 bilateral knee replacement; cataract repair; Cholecystectomy; hip/shoulder replacement; al5 pacemaker; - Immunization history:: Adult Immunizations up to date. - Infectious Disease History:: Denies. - Immunization history: Last tetanus immunization: - up to date. - Social history:: Smoking status: Patient denies any tobacco usage or history of. - Family history:: not pertinent. ROS: 02/22 19:32 Constitutional: Negative for fever, chills, and weight loss, positive left hip pain, sp4 positive right lower back pain, positive right posterior back skin tear All other systems are negative, Exam: 19:32 Constitutional: This is a well developed, well nourished patient who is awake, alert, sp4 and in no acute distress. Head/Face: Normocephalic, atraumatic. Eyes: Pupils equal round and reactive to light, extra-ocular motions intact. Lids and lashes normal. Conjunctiva and sclera are not injected. Cornea within normal limits. Periorbital areas with no swelling, redness, or edema. ENT: Nares patent. No nasal discharge, no septal abnormalities noted. Tympanic membranes are normal and external auditory canals are clear. Oropharynx with no redness, swelling, or masses, exudates, or evidence of obstruction, uvula midline. Mucous membranes moist. Neck: Trachea midline, no thyromegaly or masses palpated, and no cervical lymphadenopathy. Supple, full range of motion without nuchal rigidity, or vertebral point tenderness. Chest/axilla: Normal chest wall appearance and motion. Nontender with no deformity. No lesions are appreciated. Cardiovascular: Regular rate and rhythm with a normal S1 and S2. No gallops, murmurs, or rubs. Normal PMI, no JVD. No pulse deficits. Respiratory: Lungs have equal breath sounds bilaterally, clear to auscultation and percussion. No rales, rhonchi or wheezes noted. No increased work of breathing, no retractions or nasal flaring. Abdomen/GI: Soft, with normal bowel sounds. No distension or tympany. No guarding or rebound. No evidence of tenderness throughout. Back: No spinal tenderness. No costovertebral tenderness. Skin: Warm, dry with normal turgor. Normal color with no rashes, no lesions, and no evidence of cellulitis. MS/ Extremity: Pulses equal, no cyanosis. Neurovascular intact. Full, normal range of motion. Neuro: Awake and alert, GCS 15, oriented to person, place, time, and situation. Cranial nerves II-XII grossly intact. Motor strength 5/5 in all extremities. Sensory grossly intact. Psych: Awake, alert, with orientation to person, place and time. Behavior, mood, and affect are within normal limits Vital Signs: 02/21 19:07 BP 130 / 68; Pulse 69; Resp 16; Temp 97.8; Pulse Ox 96% on R/A; Weight 75.3 kg; Height al5 5 ft. 8 in. ; Pain 5/10; 20:19 BP 105 / 62; Pulse 66; Resp 16; Pulse Ox 98% on R/A; al5 22:06 BP 105 / 92; Pulse 66; Resp 18; Temp 97.8; Pulse Ox 98% on R/A; al5 23:00 BP 118 / 72; Pulse 75; Resp 18; Pulse Ox 95% on R/A; al5 19:07 Body Mass Index 25.24 (75.30 kg, 172.72 cm) al5 19:07 Pain Scale: Adult al5 [place] Coma Score: 19:18 Eye Response: spontaneous(4). Motor Response: obeys commands(6). Verbal Response: al5 oriented(5). Total: 15. 02/22 19:32 Eye Response: spontaneous(4). Motor Response: obeys commands(6). Verbal Response: sp4 oriented(5). Total: 15. Trauma Score (Adult): 02/21 19:18 Eye Response: spontaneous(1); Verbal Response: oriented(1); Motor Response: obeys al5 commands(2); Systolic BP: > 89 mm Hg(4); Respiratory Rate: 10 to 29 per min(4); Yady Score: 15; Trauma Score: 12 MDM: 19:12 Patient medically screened. sp4 02/22 19:32 Differential diagnosis: abrasion, closed head injury, contusion, fracture, laceration, sp4 multiple trauma, sprain, strain. Data reviewed: vital signs, nurses notes, EMS record, lab test result(s), radiologic studies, CT scan, plain films. Consideration of Admission/Observation Escalation of care including admission/observation considered. ED course: [place] [id number] RADIOLOGYSERVICES REPORT Name: JOSE SALDANA Acct Number: [id number] :1935 Age:88 Sex:M Ord Phys: Chito Lantigua MD Unit Number: [id number] Prim Care Dr: NONE Status: REG ER ER Exam Date: 02/22/24 EXAM DESCRIPTION: CT - Pelvis Wo Cont - 02/22/2024 7:52 pm CLINICAL HISTORY: acute fall , left hip pain COMPARISON: Hip Left Wo Con dated 10/05/2023 TECHNIQUE: Thin cut axial CT imaging of the pelvis was performed without IV contrast. Multiplanar reformats were generated and reviewed. All CT scans are performed using dose optimization technique as appropriate and may include automated exposure control or mA/KV adjustment according to patient size. FINDINGS: Minimally displaced fractures of the left inferior pubic ramus. Bony pelvis is otherwise intact. Cortical irregularities along the coccygeal segments are stable, suggestive of remote fractures. Grade 1 anterolisthesis of L5-S1, with advanced facet arthropathy and at least moderate central canal stenosis at that level. The left total hip arthroplasty in place. No evidence of periprosthetic fracture. Advanced degenerative changes of the symphysis pubis. Moderate bilateral sacroiliac joint degenerative changes with partial ankyloses. Moderate right hip joint degenerative changes. Small right inguinal hernia containing some free fluid. Evidence of prior lower ventral hernia mesh repair. No dilated bowel loops or bowel wall thickening. No free air, free fluid or inflammatory stranding. No suspicious mass or bulky lymphadenopathy. Moderate prostatomegaly with calcifications. 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 The urinary bladder is without significant finding. IMPRESSION: Minimally displaced fractures of the left inferior pubic ramus. No other acute findings. 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 Please see details above. Signed By:. 02/21 19:11 Order name: Basic Metabolic Panel; Complete Time: 20:33 sp4 02/21 19:11 Order name: CBC with Diff; Complete Time: 20:33 sp4 02/21 19:11 Order name: LFT's; Complete Time: 20:33 sp4 02/21 19:11 Order name: Magnesium; Complete Time: 20:33 sp4 02/21 19:11 Order name: NT PRO-BNP; Complete Time: 20:33 sp4 02/21 19:11 Order name: PT-INR; Complete Time: 20:56 sp4 02/21 19:11 Order name: Troponin HS; Complete Time: 20:33 sp4 02/21 21:34 Order name: Urinalysis w/ reflexes EDMS 02/21 21:34 Order name: CBC with Automated Diff EDMS 02/21 21:34 Order name: CBC with Automated Diff EDMS 02/21 21:34 Order name: Comprehensive Metabolic Panel EDNV 02/21 21:34 Order name: Comprehensive Metabolic Panel EDNV 02/21 19:11 Order name: CT Pelvis wo Cont; Complete Time: 20:56 4 02/21 21:34 Order name: Physical Therapy Consult EDNV 02/21 19:11 Order name: Cardiac monitoring; Complete Time: 19:27 [facility] 02/21 19:11 Order name: EKG - Nurse/Tech; Complete Time: 19:26 sp4 02/21 19:11 Order name: IV Saline Lock; Complete Time: 19:26 [facility] 02/21 19:11 Order name: Labs collected and sent; Complete Time: 19:31 [facility] 02/21 19:11 Order name: O2 Per Protocol; Complete Time: 19:26 sp4 02/21 19:11 Order name: O2 Sat Monitoring; Complete Time: 19:27 sp4 Administered Medications: 02/21 19:39 Drug: morphine IVP or IV 2 mg IVP once over 4 mins Route: IVP; Infused Over: 4 mins; al5 Site: right antecubital; 20:15 Follow up: Response: No adverse reaction al5 21:51 Follow up: Response: No adverse reaction al5 19:39 Drug: Ondansetron IVP 4 mg IVP once; over 2 minutes Route: IVP; Site: right antecubital;al5 20:15 Follow up: Response: No adverse reaction al5 21:51 Follow up: Response: No adverse reaction al5 22:13 Drug: NS 0.9% IV 1000 ml IV at 100 ml/hr continuous Route: IV; Rate: 100 ml/hr; Site: al5 right antecubital; Disposition Summary: 02/22/24 21:20 Hospitalization Ordered Notes: Hospitalization Status: Inpatient Admission sp4 Provider: Conner Godinez spIsa [facility] sp4 Condition: Stable sp4 Problem: new sp4 Symptoms: have improved sp4 Bed/Room Type: Standard sp4 Room Assignment: 431(02/22/24 21:43) vc1 Diagnosis - Acute on chronic renal failure, left inferior pubic ramus fracture, intractable sp4 pain, Fall at home Forms: - Medication Reconciliation Form sp4 - SBAR form sp4 - Leadership Thank You Letter sp4 Signatures: Dispatcher MedHo Lucila Marie RN RN vc1 Chito Lantigua MD MD sp4 Jayne Ho RN RN al5 Corrections: (The following items were deleted from the chart) 19:12 19:12 BASIC METABOLIC PANEL+C.LAB.BRZ ordered. EDMS EDMS 19:12 19:12 CBC+H.LAB.BRZ ordered. EDMS EDMS 19:12 19:12 HEPATIC FUNCTION+C.LAB.BRZ ordered. EDMS EDMS 19:12 19:12 MAGNESIUM+C.LAB.BRZ ordered. EDMS EDMS 19:12 19:12 PROBNP+C.LAB.BRZ ordered. EDMS EDMS 19:12 19:12 PROTIME (+INR)+COAG.LAB.BRZ ordered. EDMS EDMS 19:12 19:12 Troponin High Sensitivity+C.LAB.BRZ ordered. EDMS EDMS 21:43 21:20 sp4 vc1
[2024-02-22] MEDS ORDERED: ACETAMINOPHEN 325 MG TABLET PO PRN (21:30)
--- NOTE | 2024-02-22 21:30 | P.HP ---
Certification for Inpatient Patient admitted to: Inpatient With expected LOS: >2 Midnights Practitioner: I am a practitioner with admitting privileges, knowledge of patient current condition, hospital course, and medical plan of care. Services: Services provided to patient in accordance with Admission requirements found in Title 42 Section 412.3 of the Code of Federal Regulations Patient History Date of Service: 02/22/24 Reason for admission: Fall History of Present Illness: 88-year-old male with past medical history of hypertension, hyperlipidemia, prostate cancer, osteoarthritis, history of CVA, history of skin cancer, atrial fibrillation on amiodarone and Eliquis, who had a mechanical fall and was brought to ER with pain in the pubic area and hip. Patient denies any palpitation or syncope. No loss of consciousness. Denies any nausea vomiting or diarrhea. Patient was assessed in the ER and was found to have pubic Raj fracture and was admitted for pain control and supportive management Allergies No Known Allergies Allergy (Verified 09/11/23 19:39) Home medications list reviewed: Yes Home Medications: Amiodarone HCl [Cordarone*] 200 mg PO BID 09/11/23 Apixaban [Eliquis] 5 mg PO BID 09/11/23 Atorvastatin Calcium [Lipitor] 80 mg PO BEDTIME 09/11/23 Clopidogrel Bisulfate [Plavix*] 75 mg PO DAILY 09/11/23 Cyanocobalamin (Vitamin B-12) [Vitamin B-12] 500 mcg PO DAILY 09/11/23 Docusate [Colace Cap*] 100 mg PO BID 09/11/23 Ferrous Sulfate [Ferrous Sulfate*] 325 mg PO DAILY 09/11/23 Metoprolol Succinate [Toprol Xl*] 12.5 mg PO DAILY 09/11/23 Tramadol HCl [Ultram] 50 mg PO BIDP PRN 09/11/23 Vit A,C & E/Lutein/Minerals [Ocuvite Tablet] 1 tab PO DAILY 09/11/23 methocarbamoL [Methocarbamol] 500 mg PO TIDP PRN 09/11/23 Ensure High Protein 273 ml PO AC #90 can 09/22/23 Iron [Iron*] 1 each PO BID #60 packet 09/22/23 Iron [Iron*] 1 pkt PO BID #60 packet 09/26/23 - Past Medical/Surgical History Diabetic: No Past Medical History: Reviewed- Non-Contributory -: HTN -: stroke -: OSTEOARTHRITIS -: PROSTATE CA -: HX OF TIA -: HDL -: skin cancer Past Surgical History: Reviewed- Non-Contributory -: BILATERAL KNEE REPLACEMENT -: SHOULDER REPLACEMENT -: PROSTATE SX -: CHOLICYSTECTOMY -: hernia repair -: CABG (08/13/23)/pacemaker replacement -: hip replacement Psychosocial/ Personal History: will need higher level of care than home. His family is currently trying to care for him at home but it has become too much for them - Family History Father -: Heart disease Mother -: Heart disease, Diabetes - Social History Smoking Status: Never smoker Alcohol use: No CD- Drugs: No Caffeine use: No Review of Systems 10-point ROS is otherwise unremarkable Physical Examination - Vital Signs Temperature: 98.2 F Blood Pressure: 138/72 Pulse: 78 Respirations: 18 Pulse Ox (%): 94 - Physical Exam General: Alert, Mild distress HEENT: Atraumatic, Normocephalic Neck: Supple Respiratory: Clear to auscultation bilaterally, Normal air movement Cardiovascular: Regular rate/rhythm, Normal S1 S2 Capillary refill: <2 Seconds Gastrointestinal: Soft and benign, W/out hepatosplenomegaly Musculoskeletal: No clubbing, No swelling, Tenderness Integumentary: No rashes Neurological: Normal speech, Cranial nerves 3-12 intact, Normal reflexes 2+ Lymphatics: No axilla or inguinal lymphadenopathy - Studies Laboratory Data (last 24 hrs) 02/22/24 02/22/24 02/22/24 19:31 19:31 19:31 WBC 9.00 Hgb 9.9 L Hct 29.3 L Plt Count 219 PT 23.2 H INR 2.12 Sodium 137 Potassium 4.6 BUN 27 H Creatinine 1.34 H Glucose 113 H Magnesium 2.5 H Total Bilirubin 0.7 AST 15 ALT 17 Alkaline Phosphatase 96 Assessment and Plan - Problems (Diagnosis) (1) Pubic ramus fracture Current Visit: Yes Status: Acute Plan: Status post fall Left pubic Raj fracture inferior Pain control Continue home medications and titrate as needed Atrial fibrillation Continue amiodarone and Eliquis Hypertension Antihypertensives titrated Continue home medications and titrate as needed Hyperlipidemia Continue statin 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
[2024-02-22] MEDS ORDERED: NA CHLORIDE 0.9% 1,000 ML ONE (22:09)
[2024-02-23 00:34] VITALS: BMI 25.0
[2024-02-23] MEDS: MORPHINE 2 MG/ML SYR IV PRN (00:57)
[2024-02-23] MEDS ORDERED: ONDANSETRON 4 MG/2 ML VIAL IV PRN (01:00)
[2024-02-23 06:32] LABS: Absolute Eosinophils 0.3 K/uL (0-0.5); Absolute Lymphocytes (CBC) 1.3 K/uL (0.7-4.9); Absolute Monocytes 0.9 K/uL (0.1-1.3); Absolute Neutrophil 4.6 K/uL (1.8-8.0); Basophils % 0.6 % (0-1.3); Eosinophils % 3.6 % (0-4.4); Hematocrit 28.4 % (39.6-49.0); Hemoglobin 9.5 g/dL (13.6-17.9); Lymphocytes % 18.1 % (15.3-44.8); MCH 34.6 pg (27.0-35.0); MCHC 33.6 g/dL (32.0-36.0); MPV 6.3 fL (7.6-11.3); Monocytes % 12.9 % (3.3-12.3); Neutrophils % 64.8 % (41.7-73.7); Nucleated Red Blood Cells % 0.1 % (0-0); Platelets 193 thou/uL (152-406); RBC Red Blood Cell Count 2.76 M/uL (4.33-5.43); Red Cell Distribution Width 16.7 % (12.1-15.2)
[2024-02-23 07:03] LABS: Albumin 2.6 g/dL (3.4-5.0); Albumin/Globulin Ratio 0.7 (1.1-1.8); Anion Gap 6.3 mEq/L (5.0-15.0); Bilirubin Total 1.1 mg/dL (0.2-1.0); Globulin 3.8 g/dL (2.3-3.5); Potassium 4.3 mEq/L (3.5-5.1); Protein, Total 6.4 g/dL (6.4-8.2)
[2024-02-23] MEDS: HYDROCODONE/APAP 5/325 MG TAB PO PRN (09:11)
[2024-02-23] MEDS: ENOXAPARIN 40 MG/0.4 ML SQ SCH (09:26)
--- NOTE | 2024-02-23 12:52 | CON ---
Date of Consultation: 02/23/2024 This is my first time seeing this patient to my knowledge, although I may have seen him in the past a nd do not remember. He is an 88-year-old gentleman, who unfortunately injured his left side and foun d it very difficult for him to walk because of significant pain related to his left hip and pelvis. This occurred after a fall. He is admitted to the hospital because of pain which does not allow him to ambulate. He does have a history of a left total hip, which was done by another physician, but th e total hip appears to be doing fine on CT scan, but a CT scan was done which shows 2 significant iss ues, one of which is an inferior pubic ramus fracture, which is most likely causing his pain. There is also a right common femoral artery aneurysm per the report of the radiologist. It measures 4.2 x 4.5 cm. On physical examination, all his long bones and joints are palpated without pain or crepitat ion with the exception of some pain related to his left groin with movement of the hip. Review of CT scan does reveal previous findings detailed above. Assessment: This is an 88-year-old male, now with pain in his left side from pubic rami fracture, wh ich I believe can be treated with mobilization and pain control. He can be weightbearing as tolerate d with a walker. This has been discussed with both the hospitalist and his nurse. Also, the right f emoral artery aneurysm is something that I obviously do not treat, but I have made the nurse as well as the hospitalist aware of its presence on CT scan and will be decided on treatment by medical lucrecia samuel, perhaps with consultation with General Surgery and we will leave that to them. Plan at thi s time is early mobilization with a walker and pain management. No surgical indication for pelvis is there, although may need a consultation regarding the aneurysm by the manuel walker. /KAEL Voice ID: [id number] Report ID: [id number]
--- NOTE | 2024-02-23 16:23 | P.PN ---
Subjective Date of Service: 02/23/24 Chief Complaint: Fall Patient is complaining of pain with movement in the hip area. He denies any problem with urination or stool incontinence. Physical Examination - Vital Signs Temperature: 97.2 F Blood Pressure: 112/58 Pulse: 70 Respirations: 16 Pulse Ox (%): 94 - Studies Laboratory Data (last 24 hrs) 02/22/24 02/22/24 02/22/24 19:31 19:31 19:31 WBC 9.00 Hgb 9.9 L Hct 29.3 L Plt Count 219 PT 23.2 H INR 2.12 Sodium 137 Potassium 4.6 BUN 27 H Creatinine 1.34 H Glucose 113 H Magnesium 2.5 H Total Bilirubin 0.7 AST 15 ALT 17 Alkaline Phosphatase 96 Assessment And Plan - Plan Physical examination General: Alert and oriented x3, NAD, HEENT: Conjunctiva not pale, anicteric sclera Neck: Supple, no elevated JVD Heart: Heart sounds 1 and 2 normal, regular rhythm, normal rate, no pedal edema Lungs: Clear to auscultation bilaterally, adequate breath sounds bilaterally, no rhonchi or crackles. Abdomen: Soft, nondistended, nontender, normal bowel sounds. Extremities: No tenderness, no deformity, significantly decreased range of motion bilateral hip joints. Skin: Normal skin turgor, no rash, no nodules or ulcers. Neuro: No focal motor deficit. Normal speech. Psychiatry: Normal mood, no agitation. Assessment and plan Status post fall Left pubic [place] fracture inferior Orthopedic input appreciated-no indication for surgery. Analgesics as needed PT consult. Chronic atrial fibrillation Continue amiodarone and Eliquis. Right common femoral artery aneurysm CT pelvis reported an incidental finding of large common femoral artery aneurysm, 4.2 x 4.5 cm. Case discussed with IR vascular Dr. Li who recommended that the aneurysm need to be treated and an option is to transfer to [facility] to be evaluated by vascular surgery I initiated transfer to [facility], I spoke to vascular surgery Dr. Torres who recommended outpatient evaluation for elective surgery as needed. 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 Monitor renal function DVT prophylaxis: Lovenox Advanced directive: full code
[2024-02-23] MEDS ORDERED: OLOPATADINE HCL OPTH PRN (16:28)
[2024-02-23] MEDS: DOCUSATE NA 100 MG CAP PO SCH (20:31)
[2024-02-23] MEDS: ATORVASTATIN 40 MG TAB PO SCH (20:31)
--- NOTE | 2024-02-24 08:17 | P.PN ---
Date of Service: 02/24/24 Subjective: Doing okay. Doesn't feel anything is getting worse. dealing with some rib / hip pain - tolerable with current pain meds attempted transfer yesterday to [facility] given aneurysm but was denied no acute events overnight ROS: 10 point ROS as noted above, otherwise negative Physical Exam: GEN: Alert, oriented, NAD CV: Regular rate and rhythm, no edema Pulm: Nonlabored respirations on room air, clear bilaterally ABD: Soft, nontender, nondistended MSK: decreased ROM bilateral hip joints Integumentary: right heel pressure ulcer POA with dressing in place, large skin tear on back post fall Neuro: Normal speech, Normal affect vitals reviewed Problem List: Left inferior pubic ramus fracture, acute. 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 4.2x4.5cm right common femoral artery aneurysm Dr. Segovia, ortho consulted and recommended PT, mobilization, pain control, weightbearing as tolerated with walker no indication to warrant surgery at this time per ortho. 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 Li by Dr. Contreras who recommended transfer to [facility] to be evaluated by vascular surgery Transfer initiated 02/22 to [facility]. Dr. Contreras spoke to vascular surgery Dr. Torres who recommended outpatient evaluation for elective surgery as needed. COREY on CKD2; resolved continue to monitor renal function monitor and replete electrolytes as needed resolved Chronic a-fib with pacemaker in place CAD s/p CABG (July 2023) underwent triple bypass and pacemaker repair/replacement in July 2023 @[facility] continue home amiodarone, metoprolol HTN HLD continue home amiodarone continue home statin right lower extremity pressure ulcer POA continue local wound care. pressure offloading measures. Also has large skin tear to back from recent fall. Has dressing in place. wound healing consult. Iron deficiency anemia; chronic continue PO ferrous sulfate Constipation, chronic no BM since last friday per patient continue daily laxative, stool softener BID Osteoarthritis GERD Vitamin b12 deficiency hx CVA hx skin cancer confirm home meds, restart as appropriate continue supportive care VTE: Lovenox Code: Full Dispo: ?SNF vs home with home health, ~2 days Time Spent Managing Pts Care (In Minutes): 45
[2024-02-24] MEDS: CYANOCOBALAMIN 500 MCG PO SCH (09:00)
[2024-02-24] MEDS ORDERED: HOME MED 1 EA UNK (Ascorbic Acid [Vitamin C] 500 MG Tab.Chew) PO SCH (09:00)
[2024-02-24] MEDS: METOPROLOL XL 25 MG TAB PO SCH (09:00)
[2024-02-24] MEDS: FUROSEMIDE 20 MG TABLET PO SCH (09:07)
[2024-02-24] MEDS: CLOPIDOGREL 75 MG TABLET PO SCH (09:07)
[2024-02-24] MEDS: ASCORBIC ACID 500 MG TABLET PO SCH (09:07)
[2024-02-24] MEDS: BISACODYL E.C. 5 MG TAB PO SCH (09:07)
[2024-02-24] MEDS: FERROUS SULFATE 325 MG TAB PO SCH (09:08)
[2024-02-24] MEDS: AMIODARONE HCL 200 MG TAB PO SCH (09:08)
[2024-02-24] MEDS: OCUVITE (VIT A,C & E/LUTEIN/MINERAL) TABLET PO SCH (10:05)
[2024-02-25 07:43] LABS: Anion Gap 8.1 mEq/L (5.0-15.0); Magnesium 2.2 mg/dL (1.6-2.4); Potassium 4.1 mEq/L (3.5-5.1)
--- NOTE | 2024-02-25 08:47 | P.PN ---
Date of Service: 02/25/24 Subjective: feeling some improvement in strength/endurance today pain/soreness slowly improving doesn't feel anything is getting worse working with PT ROS: 10 point ROS as noted above, otherwise negative Physical Exam: GEN: Alert, oriented, NAD CV: Regular rate and rhythm, no edema Pulm: Nonlabored respirations on room air, clear bilaterally ABD: Soft, nontender, nondistended MSK: decreased ROM bilateral hip joints Integumentary: left heel pressure ulcer POA with dressing in place, large superficial skin tear/abrasion on back post fall Neuro: Normal speech, Normal affect vitals reviewed Problem List: Left inferior pubic ramus fracture, acute. 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 POA CT pelvis (02/21): minimally displaced left inferior pubic ramus fracture. 4.2x4.5cm right common femoral artery aneurysm Dr. Segovia, ortho consulted recommended PT, mobilization, pain control no indication to warrant surgery at this time per ortho. weightbearing as tolerated with walker per ortho. 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 Li by Dr. Contreras who recommended transfer to [facility] to be evaluated by vascular surgery Transfer initiated 02/22 to [facility]. Dr. Contreras spoke to vascular surgery Dr. Torres who recommended outpatient evaluation for elective surgery as needed. COREY on CKD2; resolved continue to monitor renal function monitor and replete electrolytes as needed resolved Chronic a-fib with pacemaker in place CAD s/p CABG (July 2023) underwent triple bypass and pacemaker repair/replacement in July 2023 @[facility] continue home amiodarone, metoprolol Hypertension Hyperlipidemia continue home amiodarone continue home statin Left lower extremity pressure ulcer POA continue local wound care. pressure offloading measures. Also has large skin tear to back from recent fall. Has dressing in place. wound healing consult. no evidence of infection has been placing santyl on it daily Iron deficiency anemia; chronic continue PO ferrous sulfate Constipation, chronic no BM since last friday per patient continue daily laxative, stool softener BID Osteoarthritis GERD Vitamin b12 deficiency hx CVA hx skin cancer confirm home meds, restart as appropriate continue supportive care VTE: Lovenox Code: Full Dispo: SNF, ~1-2 days pending SNF choice / approval Time Spent Managing Pts Care (In Minutes): 35
[2024-02-25] MEDS: COLLAGENASE 30 GM OINTMENT TOP SCH (09:00)
[2024-02-25] MEDS: OLOPATADINE HCL OPTH SCH (09:00)
[2024-02-25] MEDS: CYANOCOBALAMIN 500 MCG PO SCH (14:53)
[2024-02-25] MEDS: COLLAGENASE TOP SCH (14:54)
[2024-02-25] MEDS: OLOPATADINE HCL 0.1% OPTH SCH (17:16)
[2024-02-26] MEDS: MEDIHONEY 44 ML TOPICAL TUBE TOP SCH (10:00)
--- NOTE | 2024-02-26 11:59 | P.PN ---
Date of Service: 02/26/24 Subjective: feeling better each day pain/soreness slowly improving doesn't feel anything is getting worse ROS: 10 point ROS as noted above, otherwise negative Physical Exam: GEN: Alert, oriented, NAD CV: Regular rate and rhythm, no edema Pulm: Nonlabored respirations on room air, clear bilaterally ABD: Soft, nontender, nondistended MSK: decreased ROM bilateral hip joints Integumentary: left heel pressure ulcer POA with dressing in place, large sup erficial skin tear/abrasion on back post fall Neuro: Normal speech, Normal affect vitals reviewed Problem List: Left inferior pubic ramus fracture, acute. 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 POA CT pelvis (02/21): minimally displaced left inferior pubic ramus fracture. 4.2x4.5cm right common femoral artery aneurysm Dr. Segovia, ortho consulted recommended PT, mobilization, pain control no indication to warrant surgery at this time per ortho. weightbearing as tolerated with walker per ortho. 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 Li by Dr. Contreras who recommended transfer to [facility] to be evaluated by vascular surgery Transfer initiated 02/22 to [facility]. Dr. Contreras spoke to vascular surgery Dr. Torres who recommended outpatient evaluation for elective surgery as needed. COREY on CKD2; resolved continue to monitor renal function monitor and replete electrolytes as needed resolved Chronic a-fib with pacemaker in place CAD s/p CABG (July 2023) underwent triple bypass and pacemaker repair/replacement in July 2023 @[facility] continue home amiodarone, metoprolol Hypertension Hyperlipidemia continue home amiodarone continue home statin Left lower extremity pressure ulcer POA continue local wound care. pressure offloading measures. Also has large skin tear to back from recent fall. Has dressing in place. wound healing consult. no evidence of infection has been placing santyl on it daily Iron deficiency anemia; chronic continue PO ferrous sulfate Constipation, chronic continue daily laxative, stool softener BID Osteoarthritis GERD Vitamin b12 deficiency hx CVA hx skin cancer confirm home meds, restart as appropriate continue supportive care VTE: Lovenox Code: Full Dispo: SNF, ~1-2 days pending SNF approval Time Spent Managing Pts Care (In Minutes): 35
[2024-02-26] MEDS: POLYETHYL GLY 3350 17 GM/DOSE PO PRN (16:40)
[2024-02-26] MEDS: TRAMADOL HCL 50 MG TAB PO SCH (18:02)
[2024-02-26] MEDS: FLEET ENEMA ADULT PR ONE (18:03)
[2024-02-27 06:10] LABS: Absolute Basophils 0.1 K/uL (0-0.5); Absolute Eosinophils 0.2 K/uL (0-0.5); Absolute Lymphocytes (CBC) 1.7 K/uL (0.7-4.9); Absolute Monocytes 0.9 K/uL (0.1-1.3); Absolute Neutrophil 4.9 K/uL (1.8-8.0); Basophils % 0.7 % (0-1.3); Eosinophils % 2.1 % (0-4.4); Hemoglobin 10.7 g/dL (13.6-17.9); Lymphocytes % 21.6 % (15.3-44.8); MCHC 34.4 g/dL (32.0-36.0); MCV 101.7 fL (80-100); MPV 6.6 fL (7.6-11.3); Monocytes % 11.8 % (3.3-12.3); Neutrophils % 63.8 % (41.7-73.7); Nucleated Red Blood Cells % 0.1 % (0-0); Platelets 233 thou/uL (152-406); RBC Red Blood Cell Count 3.05 M/uL (4.33-5.43); Red Cell Distribution Width 16.1 % (12.1-15.2)
[2024-02-27 06:27] LABS: Magnesium 2.2 mg/dL (1.6-2.4)
--- NOTE | 2024-02-27 11:15 | P.PN ---
Date of Service: 02/27/24 Subjective: feeling better each day pain/soreness slowly improving doesn't feel anything is getting worse pending SNF auth ROS: 10 point ROS as noted above, otherwise negative Physical Exam: GEN: Alert, oriented, NAD CV: Regular rate and rhythm, no edema Pulm: Nonlabored respirations on room air, clear bilaterally ABD: Soft, nontender, nondistended MSK: decreased ROM bilateral hip joints Integumentary: left heel pressure ulcer POA with dressing in place, large superficial skin tear/abrasion on back post fall Neuro: Normal speech, Normal affect vitals reviewed Problem List: Left inferior pubic ramus fracture, acute. 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 POA CT pelvis (02/21): minimally displaced left inferior pubic ramus fracture. 4.2x4.5cm right common femoral artery aneurysm Dr. Segovia, ortho consulted recommended PT, mobilization, pain control no indication to warrant surgery at this time per ortho. weightbearing as tolerated with walker per ortho. 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 Li by Dr. Contreras who recommended transfer to [facility] to be evaluated by vascular surgery Transfer initiated 02/[address] [facility] Dr. Contreras spoke to vascular surgery Dr. Torres who recommended outpatient evaluation for elective surgery as needed. COREY on CKD2; resolved continue to monitor renal function monitor and replete electrolytes as needed resolved Chronic a-fib with pacemaker in place CAD s/p CABG (July 2023) underwent triple bypass and pacemaker repair/replacement in July 2023 @[facility] continue home amiodarone, metoprolol Hypertension Hyperlipidemia continue home amiodarone continue home statin Left lower extremity pressure ulcer POA continue local wound care. pressure offloading measures. Also has large skin tear to back from recent fall. Has dressing in place. wound healing consult. no evidence of infection has been placing santyl on it daily Iron deficiency anemia; chronic continue PO ferrous sulfate Constipation, chronic continue daily laxative, stool softener BID Osteoarthritis GERD Vitamin b12 deficiency hx CVA hx skin cancer confirm home meds, restart as appropriate continue supportive care VTE: Lovenox Code: Full Dispo: SNF, ~1-2 days pending SNF approval Time Spent Managing Pts Care (In Minutes): 35
--- NOTE | 2024-02-27 13:41 | EKG ---
Test Date: 2024-02-22 Test Time: 19:26:22 Top Waddy: JIMMIE MEASUREMENT RESULTS: Intervals: Rate: 68 NM: 204 QRSD: 122 QT: 436 QTc: 463 [place]: P: 40 NM: 204 QRS: 35 T: 77 INTERPRETIVE STATEMENTS: Normal sinus rhythm Nonspecific ST and T wave abnormality Abnormal ECG Compared to ECG 12/30/2023 15:41:50 ST (T wave) deviation now present T-wave abnormality no longer present Possible ischemia no longer present Electronically Signed On 02-27-24 13:33:53 CDT by Nick Harrington
--- NOTE | 2024-02-28 11:35 | P.PN ---
Date of Service: 02/28/24 Subjective: able to have decent sized BM but still feels some discomfort/constipation feels tramadol is helping with pain rib pain/soreness improving pending SNF auth ROS: 10 point ROS as noted above, otherwise negative Physical Exam: GEN: Alert, oriented, NAD CV: Regular rate and rhythm, no edema Pulm: Nonlabored respirations on room air, clear bilaterally ABD: Soft, nontender, nondistended MSK: decreased ROM bilateral hip joints Integumentary: left heel pressure ulcer POA with dressing in place, large superficial skin tear/abrasion on back s/p fall vitals reviewed Problem List: Left inferior pubic ramus fracture, acute. 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 POA CT pelvis (02/21): minimally displaced left inferior pubic ramus fracture. 4.2x4.5cm right common femoral artery aneurysm Dr. Segovia, ortho consulted recommended PT, mobilization, pain control no indication to warrant surgery at this time per ortho. weightbearing as tolerated with walker per ortho. 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 Li by Dr. Contreras who recommended transfer to [facility] to be evaluated by vascular surgery Transfer initiated 02/22 to [facility]. Dr. Contreras spoke to vascular surgery Dr. Torres who recommended outpatient evaluation for elective surgery as needed. COREY on CKD2; resolved continue to monitor renal function monitor and replete electrolytes as needed resolved Chronic a-fib with pacemaker in place CAD s/p CABG (July 2023) underwent triple bypass and pacemaker repair/replacement in July 2023 @[facility] continue home amiodarone, metoprolol Hypertension Hyperlipidemia continue home amiodarone continue home statin Left lower extremity pressure ulcer POA continue local wound care. pressure offloading measures. Also has large skin tear to back from recent fall. Has dressing in place. wound healing consult. no evidence of infection has been placing santyl on it daily Iron deficiency anemia; chronic continue PO ferrous sulfate Constipation, chronic had BM but still feels constipated continue daily laxative, stool softener BID PRN dulcolax suppository added 02/27 Osteoarthritis GERD Vitamin b12 deficiency hx CVA hx skin cancer confirm home meds, restart as appropriate continue supportive care VTE: Lovenox Code: Full Dispo: SNF, pending SNF approval - earliest Friday Time Spent Managing Pts Care (In Minutes): 35
[2024-02-28] MEDS ORDERED: BISACODYL 10 MG RECTAL SUPP PR PRN (11:49)
--- NOTE | 2024-02-29 11:39 | P.PN ---
Date of Service: 02/29/24 Subjective: feels significantly more relief today. Was able to have BM doesn't feel anything is getting worse no acute events overnight no new pains afebrile ROS: 10 point ROS as noted above, otherwise negative Physical Exam: GEN: Alert, oriented, NAD CV: Regular rate and rhythm, no edema Pulm: Nonlabored respirations on room air, clear bilaterally ABD: Soft, nontender, nondistended Integumentary: left heel pressure ulcer POA with dressing in place, large superficial skin tear/abrasion on back s/p fall vitals reviewed Problem List: Left inferior pubic ramus fracture, acute. 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 POA CT pelvis (02/21): minimally displaced left inferior pubic ramus fracture. 4.2x4.5cm right common femoral artery aneurysm Dr. Segovia, ortho consulted recommended PT, mobilization, pain control no indication to warrant surgery at this time per ortho. weightbearing as tolerated with walker per ortho. 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 Li by Dr. Contreras who recommended transfer to [facility] to be evaluated by vascular surgery Transfer initiated 02/22 to [facility]. Dr. Contreras spoke to vascular surgery Dr. Torres who recommended outpatient evaluation for elective surgery as needed. COREY on CKD2; resolved continue to monitor renal function monitor and replete electrolytes as needed resolved Chronic a-fib with pacemaker in place CAD s/p CABG (July 2023) underwent triple bypass and pacemaker repair/replacement in July 2023 @[facility] continue home amiodarone, metoprolol Left lower extremity pressure ulcer POA continue local wound care. pressure offloading measures. Also has large skin tear to back from recent fall. Has dressing in place. wound healing consult. no evidence of infection has been placing santyl on it daily Iron deficiency anemia; chronic Hypertension Hyperlipidemia continue home PO ferrous sulfate, amio, statin Constipation, acute on chronic had BM but still feels constipated continue daily laxative, stool softener BID PRN dulcolax suppository added 02/27 Osteoarthritis GERD Vitamin b12 deficiency hx CVA hx skin cancer confirm home meds, restart as appropriate continue supportive care VTE: Lovenox Code: Full Dispo: SNF, pending SNF approval - earliest Friday Time Spent Managing Pts Care (In Minutes): 35
[2024-03-01 07:06] LABS: Anion Gap 6.7 mEq/L (5.0-15.0); Potassium 4.7 mEq/L (3.5-5.1)
[2024-03-01 07:45] LABS: Hematocrit 29.5 % (39.6-49.0); Hemoglobin 10.1 g/dL (13.6-17.9); MCH 34.8 pg (27.0-35.0); MCHC 34.1 g/dL (32.0-36.0); MCV 102.1 fL (80-100); MPV 6.6 fL (7.6-11.3); Platelets 244 thou/uL (152-406); RBC Red Blood Cell Count 2.89 M/uL (4.33-5.43); Red Cell Distribution Width 16.1 % (12.1-15.2)
--- NOTE | 2024-03-01 11:55 | P.PN ---
Date of Service: 03/01/24 Subjective: doesn't feel anything is getting worse no acute events overnight afebrile ROS: 10 point ROS as noted above, otherwise negative Physical Exam: GEN: Alert, oriented, NAD CV: Regular rate and rhythm, no edema Pulm: Nonlabored respirations on room air, clear bilaterally ABD: Soft, nontender, nondistended Integumentary: left heel pressure ulcer POA with dressing in place, large superficial skin tear/abrasion on back s/p fall vitals reviewed Problem List: Left inferior pubic ramus fracture, acute. 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 POA CT pelvis (02/21): minimally displaced left inferior pubic ramus fracture. 4.2x4.5cm right common femoral artery aneurysm Dr. Segovia, ortho consulted recommended PT, mobilization, pain control no indication to warrant surgery at this time per ortho. weightbearing as tolerated with walker per ortho. 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 Li by Dr. Contreras who recommended transfer to [facility] to be evaluated by vascular surgery Transfer initiated 02/22 to [facility]. Dr. Contreras spoke to vascular surgery Dr. Torres who recommended outpatient evaluation for elective surgery as needed. COREY on CKD2; resolved continue to monitor renal function monitor and replete electrolytes as needed resolved Chronic a-fib with pacemaker in place CAD s/p CABG (July 2023) underwent triple bypass and pacemaker repair/replacement in July 2023 @[facility] continue home amiodarone, metoprolol Left lower extremity pressure ulcer POA continue local wound care. pressure offloading measures. Also has large skin tear to back from recent fall. Has dressing in place. wound healing consult. no evidence of infection has been placing santyl on it daily Iron deficiency anemia; chronic Hypertension Hyperlipidemia continue home PO ferrous sulfate, amio, statin Constipation, acute on chronic had BM but still feels constipated continue daily laxative, stool softener BID PRN dulcolax suppository added 02/27 Osteoarthritis GERD Vitamin b12 deficiency hx CVA hx skin cancer confirm home meds, restart as appropriate continue supportive care VTE: Lovenox Code: Full Dispo: SNF, pending SNF approval Time Spent Managing Pts Care (In Minutes): 35
[2024-03-01 17:20] VITALS: BP 98/55; TEMP 98.1
[2024-03-01 18:35] VITALS: O2SAT 96
[2024-03-01] MEDS ORDERED: ENSURE HIGH PROTEIN 237 ML CAN PO SCH (21:00)
[2024-03-01] MEDS ORDERED: JUVEN PACKET PO SCH (21:00)
== END 2024-03-01 18:15 | DRG 535 ==
LOC: ER 19:04 → ERHOLD 21:30 → 4TH 23:48
PROVIDERS: ADMIT Family Medicine; ATTEND Hospitalist
DX: S32.592A Other specified fracture of left pubis, initial encounter for closed fracture (principal); L89.623 Pressure ulcer of left heel, stage 3; N17.9 Acute kidney failure, unspecified; I48.20 Chronic atrial fibrillation, unspecified; K21.9 Gastro-esophageal reflux disease without esophagitis; E78.5 Hyperlipidemia, unspecified; I12.9 Hypertensive chronic kidney disease with stage 1 through stage 4 chronic kidney disease, or unspecified chronic kidney disease; N18.2 Chronic kidney disease, stage 2 (mild); D63.1 Anemia in chronic kidney disease; D50.9 Iron deficiency anemia, unspecified; E53.8 Deficiency of other specified B group vitamins; K59.09 Other constipation; I72.4 Aneurysm of artery of lower extremity; M19.90 Unspecified osteoarthritis, unspecified site; I25.10 Atherosclerotic heart disease of native coronary artery without angina pectoris; Z95.1 Presence of aortocoronary bypass graft; Z79.01 Long term (current) use of anticoagulants; Z85.46 Personal history of malignant neoplasm of prostate; Z79.02 Long term (current) use of antithrombotics/antiplatelets; Z90.49 Acquired absence of other specified parts of digestive tract; Z86.73 Personal history of transient ischemic attack (TIA), and cerebral infarction without residual deficits; Z79.899 Other long term (current) drug therapy; Z96.653 Presence of artificial knee joint, bilateral; Z95.810 Presence of automatic (implantable) cardiac defibrillator; Z96.619 Presence of unspecified artificial shoulder joint; Z85.828 Personal history of other malignant neoplasm of skin
CPT/HCPCS: 36415; 72192; 80048; 80053; 80076; 83735; 83880; 84484; 85025; 85027; 85610; 93005; 94010; 94760; 96374; 96375; 97110; 97116; 97161; 97530; 99285; J1650; J2270; J2405; J3590; J7030